=== PATIENT | male | born 1990 | race Hispanic/Latino ===

== ENCOUNTER 2016-06-30 19:37 | Inpatient (IN) | payer MEDICARE ==
[2016-06-30 20:44] LABS: Hematocrit 34.4 % (35.5-45.6); Hemoglobin 11.1 gm/dl (11.8-15.2); Mean Corpuscular HGB Conc 32 % (32-34); Mean Corpuscular Hemoglobin 28 pg (28-32); Mean Corpuscular Volume 87 fl (84-94); Platelet Count 257 K/mm3 (140-440); Red Blood Count 3.96 M/mm3 (3.65-5.03); Red Cell Distribution Width 17.6 % (13.2-15.2); White Blood Count 5.5 K/mm3 (4.5-11.0)
[2016-06-30 20:54] LABS: INR 2.21 (0.87-1.13)
[2016-06-30 20:55] LABS: Partial Thromboplastin Time 47.5 Sec. (24.2-36.6)
[2016-06-30 20:59] LABS: Albumin 2.7 g/dL (3.9-5); Albumin/Globulin Ratio 0.7 %; Alkaline Phosphatase 84 units/L (35-129); Anion Gap 27 mmol/L; Bilirubin,Total 0.3 mg/dL (0.1-1.2); Blood Urea Nitrogen 53 mg/dL (9-20); Calcium 8.9 mg/dL (8.4-10.2); Carbon Dioxide 30 mmol/L (22-30); Chloride 83.1 mmol/L (98-107); Glucose 68 mg/dL (75-100); Lipase 5 units/L (13-60); Potassium 5.4 mmol/L (3.6-5.0); Sodium 135 mmol/L (137-145); Total Protein 6.5 g/dL (6.3-8.2)
[2016-06-30 21:01] LABS: Alanine Aminotransferase < 5 units/L (7-56)
[2016-06-30 21:32] LABS: Basophils % (Manual) 0 % (0.0-1.8); Blastocytes % (Manual) 0 %; Eosinophils % (Manual) 0 % (0.0-4.3)
[2016-06-30 21:33] LABS: Anisocytosis 1+; Diff Status Complete; Hypochromasia 1+; Platelet Estimate Consistent w Auto
[2016-07-01] MEDS ORDERED: NACL 0.9% 1000 ML 1,000 ML ONE (00:25)
[2016-07-01] MEDS ORDERED: SUBLIMAZE ONE (00:25)
[2016-07-01] MEDS ORDERED: ALBURX 25% (ALBUMIN) IV ONE (00:35)
[2016-07-01] MEDS ORDERED: SUBLIMAZE IV ONE ×2 (00:42→05:37)
[2016-07-01] MEDS: NACL 0.9% IV SCH ×2 (00:47→01:41)
--- NOTE | 2016-07-01 02:57 | Emergency Department Report ---
ED Abdominal Pain HPI - General Chief Complaint: Abdominal Pain Stated Complaint: ABD PAIN/LOW BP Time Seen by Provider: 07/01/16 00:02 Source: patient, family Mode of arrival: Wheelchair Limitations: No Limitations - History of Present Illness Initial Comments: Patient is a 18-year-old male with a history of hypertension, chronic kidney disease on dialysis Tuesday presenting to the ER with 1 week history of abdominal pain, nausea, and bilious vomiting. Associated decreased appetite and anorexia. He did have dialysis yesterday via his left arm fistula and he also has had ascites which he reports 12 pounds of fluid drained off. He reports he has no etiology for his ascites, has seen the bilingual loan processor and the inspector crystal. Does report he was not given albumin yesterday. Otherwise no fevers, chills, chest pain, shortness of breath, travel, trauma, or sick contacts. MD Complaint: abdominal pain, other (N/V) Location: diffuse Severity scale (0 -10): 0 - Related Data Home Medications Medication Instructions Recorded Confirmed Last Taken Carvedilol [Coreg] 12.5 mg PO BID 07/01/16 07/01/16 Unknown Clonidine HCl [Catapres] 0.3 mg PO TID 07/01/16 07/01/16 Unknown Cyclobenzaprine [Flexeril] 5 mg PO BID 07/01/16 07/01/16 Unknown Ergocalciferol [Vitamin D2] 1 cap PO QWEEK 07/01/16 07/01/16 Unknown Esomeprazole Magnesium 40 mg PO QDAY 07/01/16 07/01/16 Unknown Ferric Citrate (Nf) [Auryxia (Nf)] 210 mg PO TID 07/01/16 07/01/16 Unknown Furosemide [Lasix TAB] 80 mg PO QDAY 07/01/16 07/01/16 Unknown Gabapentin [Neurontin] 100 mg PO QHS 07/01/16 07/01/16 Unknown Lisinopril [Zestril TAB] 40 mg PO QDAY 07/01/16 07/01/16 Unknown NIFEdipine XL [Procardia Xl] 90 mg PO QDAY 07/01/16 07/01/16 Unknown Ondansetron [Zofran TAB] 4 mg PO TID PRN 07/01/16 07/01/16 Unknown Sertraline HCl [Zoloft] 50 mg PO QHS 07/01/16 07/01/16 Unknown Vitamin B Comp and C/FA/Zn Cit 0.8 mg PO QDAY 07/01/16 07/01/16 Unknown [Dialyvite 800-Zinc 15 Tab] Warfarin [Coumadin] 2 mg PO QDAY 07/01/16 07/01/16 Unknown traZODone [Desyrel] 50 mg PO QHS PRN 07/01/16 07/01/16 Unknown Allergies Allergy/AdvReac Type Severity Reaction Status Date / Time heparin Allergy lowers Verified 04/03/14 09:39 platelets ED Review of Systems ROS: Stated complaint: ABD PAIN/LOW BP Other details as noted in HPI Comment: All other systems reviewed and negative ED Past Medical Hx - Past Medical History Previous Medical History?: Yes Hx Hypertension: Yes (2012) Hx GERD: Yes Hx Renal Disease: Yes (h/o PERITONEAL DIALYSIS, now HD) Additional medical history: Hidradenitis - Surgical History Past Surgical History?: No - Social History Smoking Status: Current Every Day Smoker Substance Use Type: None - Medications Home Medications: Home Medications Medication Instructions Recorded Confirmed Last Taken Type Carvedilol [Coreg] 12.5 mg PO BID 07/01/16 07/01/16 Unknown History Clonidine HCl [Catapres] 0.3 mg PO TID 07/01/16 07/01/16 Unknown History Cyclobenzaprine [Flexeril] 5 mg PO BID 07/01/16 07/01/16 Unknown History Ergocalciferol [Vitamin D2] 1 cap PO QWEEK 07/01/16 07/01/16 Unknown History Esomeprazole Magnesium 40 mg PO QDAY 07/01/16 07/01/16 Unknown History Ferric Citrate (Nf) [Auryxia (Nf)] 210 mg PO TID 07/01/16 07/01/16 Unknown History Furosemide [Lasix TAB] 80 mg PO QDAY 07/01/16 07/01/16 Unknown History Gabapentin [Neurontin] 100 mg PO QHS 07/01/16 07/01/16 Unknown History Lisinopril [Zestril TAB] 40 mg PO QDAY 07/01/16 07/01/16 Unknown History NIFEdipine XL [Procardia Xl] 90 mg PO QDAY 07/01/16 07/01/16 Unknown History Ondansetron [Zofran TAB] 4 mg PO TID PRN 07/01/16 07/01/16 Unknown History Sertraline HCl [Zoloft] 50 mg PO QHS 07/01/16 07/01/16 Unknown History Vitamin B Comp and C/FA/Zn Cit 0.8 mg PO QDAY 07/01/16 07/01/16 Unknown History [Dialyvite 800-Zinc 15 Tab] Warfarin [Coumadin] 2 mg PO QDAY 07/01/16 07/01/16 Unknown History traZODone [Desyrel] 50 mg PO QHS PRN 07/01/16 07/01/16 Unknown History ED Physical Exam - General Limitations: No Limitations General appearance: alert, in no apparent distress - Head Head exam: Present: atraumatic, normocephalic - Eye Eye exam: Present: normal appearance, PERRL, EOMI, nystagmus. Absent: scleral icterus, conjunctival injection - ENT ENT exam: Present: normal exam, mucous membranes dry - Neck Neck exam: Present: normal inspection - Respiratory Respiratory exam: Present: normal lung sounds bilaterally. Absent: respiratory distress - Cardiovascular Cardiovascular Exam: Present: regular rate, normal rhythm, other (LUE fistual with thrill). Absent: systolic murmur, diastolic murmur, rubs, gallop - GI/Abdominal GI/Abdominal exam: Present: soft, tenderness (diffuse), normal bowel sounds. Absent: distended, guarding, rebound, rigid, hyperactive bowel sounds, hernia - Extremities Exam Extremities exam: Present: other (LUE fistula) ED Course Vital Signs 06/30/16 06/30/16 07/01/16 20:04 23:59 00:01 Temperature 98.1 F Pulse Rate 106 H 90 91 H Respiratory 16 13 16 Rate Blood Pressure 97/61 89/47 O2 Sat by Pulse 98 96 Oximetry 07/01/16 07/01/16 07/01/16 00:11 00:30 01:00 Temperature Pulse Rate 86 80 82 Respiratory 14 12 13 Rate Blood Pressure 89/47 91/45 94/47 O2 Sat by Pulse 93 95 90 Oximetry 07/01/16 07/01/16 07/01/16 01:30 02:00 02:30 Temperature Pulse Rate 84 85 85 Respiratory 8 L 13 11 L Rate Blood Pressure 104/51 93/50 80/49 O2 Sat by Pulse 97 94 97 Oximetry 07/01/16 07/01/16 07/01/16 03:00 03:30 04:00 Temperature Pulse Rate 81 81 77 Respiratory 9 L 12 11 L Rate Blood Pressure 98/55 97/51 97/51 O2 Sat by Pulse 99 93 Oximetry 07/01/16 07/01/16 07/01/16 04:30 05:19 05:30 Temperature Pulse Rate 74 72 Respiratory 12 14 Rate Blood Pressure 98/53 98/53 106/59 O2 Sat by Pulse 93 99 Oximetry 07/01/16 07/01/16 07/01/16 06:00 06:30 07:00 Temperature Pulse Rate 78 79 84 Respiratory 15 11 L 13 Rate Blood Pressure 109/63 112/54 111/62 O2 Sat by Pulse 93 95 Oximetry ED Medical Decision Making - Lab Data Result diagrams: 07/02/16 05:01 07/02/16 05:01 - Radiology Data Radiology results: pending, image reviewed Ct a/p: SBO, with transition point in the jejunum. Will ordered NGT, notified hospitalist Case also discussed with surgeon, Dr. Romano, will see patient on consult Case desi discussed with internal grinder tender Dr Cortez, will see patient on consult and set up dialysis Critical care attestation.: If time is entered above; I have spent that time in minutes in the direct care of this critically ill patient, excluding procedure time. ED Disposition Clinical Impression: Abdominal pain, CKD (chronic kidney disease), Nausea & vomiting, SBO (small bowel obstruction) Disposition: OP ADMITTED IP TO THIS HOSP Is pt being admited?: Yes Condition: Fair
[2016-07-01] MEDS ORDERED: NACL ONE (03:14)
--- NOTE | 2016-07-01 05:16 | Cat Scan Report ---
FINAL REPORT PROCEDURE: CT ABDOMEN PELVIS W CON TECHNIQUE: Computerized axial tomography of the abdomen and pelvis was performed after the IV injection of iodinated nonionic contrast. HISTORY: abd pain COMPARISON: 11/03/2012 FINDINGS: Visualized lower thorax: Mild infiltrate in both lower lungs.. Liver: Normal size and attenuation. Spleen: Normal size and attenuation. Gallbladder and biliary system: Normal. Pancreas: Normal. Adrenals: Normal. Kidneys: The kidneys are atrophic.. GI tract: The stomach is distended. There are multiple loops of dilated fluid and gas-filled small bowel in the mid and upper abdomen. The distal small bowel has a normal caliber. This is consistent with small bowel obstruction with a transition zone in the distal jejunum or proximal ileum. The bowel loops are dilated up to 4.5 centimeters. The colon is normal.. Lymph nodes and mesentery: Normal. Vasculature: Moderate atherosclerosis of the aorta and branching vessels.. Bladder: Normal. Reproductive organs: Normal. Peritoneum: There is significant ascites within the abdomen and pelvis.. Musculoskeletal structures: No significant abnormality. Other: None. IMPRESSION: Small-bowel obstruction with a transition zone in the distal jejunum or proximal ileum. Significant ascites within the abdomen and pelvis. Mild infiltrate in both lower lungs. The above critical findings are discussed with the patient's ER physician Dr. Barrios, at the time of dictation 04:11 central standard time on 07/01/2016
[2016-07-01] MEDS ORDERED: ZOFRAN IV ONE (05:36)
[2016-07-01] MEDS ORDERED: TYLENOL PO PRN (05:44)
--- NOTE | 2016-07-01 05:54 | History and Physical Report ---
History of Present Illness Date of examination: 07/08/16 History of present illness: 26-year-old man with a history of end-stage renal disease on dialysis Tuesday, hypertension comes emergency room with complaints of abdominal pain 1 week. Pain is all over, described as a sharp, constant, radiating around to his back, intensity 7/10, better with pain medications. Stated he was seen at [facility], he had 12 pounds of fluid drained from his belly. His MR blood vessels of nausea vomiting, unable to tolerate oral intake Patient denies chest pain, palpitation, shortness of breath, cough, hematochezia, dysuria, frequency, focal weakness, dysarthria, fever chills, polydipsia polyuria, hot or cold intolerance, easy bruisability, or rash or bleeding from mucosal membrane, rhinorrhea, epistaxis, earache, tinnitus, blurry vision, eye discharge, anxiety, depression. Other review of systems negative PAST SURGICAL HISTORY: AV fistula SOCIAL HISTORY: Smokes 3 cigarettes a day, no alcohol or drugs FAMILY HISTORY: Hypertension Medications and Allergies Allergies Allergy/AdvReac Type Severity Reaction Status Date / Time heparin Allergy lowers Verified 04/03/14 09:39 platelets Home Medications Medication Instructions Recorded Confirmed Last Taken Type Calcium Acetate 3 tab PO TID 01/29/13 02/19/16 02/25/16 20:00 History Lisinopril 40 mg PO QDAY 01/29/13 02/26/16 02/25/16 07:00 History Clonidine HCl [Catapres] 0.3 mg PO TID PRN 03/05/13 02/19/16 02/25/16 20:00 History Sertraline [Zoloft] 100 mg PO QHS 03/05/13 02/19/16 02/25/16 20:00 History Vit B Cplx #11/FA/C/Biot/Zn Ox 1 each PO DAILY 03/05/13 02/19/16 02/25/16 20:00 History [Dialyvite with Zinc Tablet] Esomeprazole Magnesium [NexIUM] 40 mg PO DAILY 12/14/13 02/26/16 02/19/16 History Minoxidil 2.5 mg PO BID 12/14/13 02/19/16 02/25/16 20:00 History NIFEdipine [Nifedipine ER] 90 mg PO DAILY 12/14/13 02/19/16 02/25/16 20:00 History oxyCODONE /ACETAMINOPHEN [Percocet 1 - 2 tab PO Q4HR #40 tab 02/26/16 Unknown Rx 5/325] Active Meds: Active Medications Acetaminophen (Tylenol) 650 mg PO Q4H PRN PRN Reason: Pain MILD(1-3)/Fever >100.5/JENKINS Levofloxacin/Dextrose (Levaquin 250mg/50ml) 250 mg in 50 mls @ 50 mls/hr IV Q24H CHONG Ondansetron HCl (Zofran) 4 mg IV Q4H PRN PRN Reason: N/V unrelieved by Reglan Exam - Physical Exam Narrative exam: Gen. appearance: Patient lying in bed, no apparent distress HEENT: Normocephalic, atraumatic, pupils equally round and reactive to light, extraocular movement intact, and no sclericterus,. No JVD or thyromegaly or nodule,neck supple, no carotid bruit ,mucous membranes moist, no exudate or erythema Heart: S1, S2, regular rate and rhythm Lungs: Clear to auscultation bilaterally, breathing comfortable Abdomen: Positive bowel sounds, tender in lower quadrants, nondistended, no organomegaly Extremity: No edema, cyanosis, clubbing Skin: No rash, nodules, warm, dry Neuro: Oriented 3, cranial nerves II-12 intact, speech is fluent, motor and sensory intact - Constitutional Vitals: Temp Pulse Resp BP Pulse Ox 98.1 F 74 12 98/53 93 06/30/16 20:04 07/01/16 04:30 07/01/16 04:30 07/01/16 04:30 07/01/16 04:00 Results - Labs CBC & Chem 7: 06/30/16 20:25 06/30/16 20:25 Labs: Abnormal lab results 06/30/16 06/30/16 06/30/16 Range/Units 20:25 20:25 20:25 Hgb 11.1 L (11.8-15.2) gm/dl Hct 34.4 L (35.5-45.6) % RDW 17.6 H (13.2-15.2) % Monocytes % (Manual) 18.0 H (0.0-7.3) % Monocytes # (Manual) 1.0 H (0.0-0.8) K/mm3 PT 24.6 H (12.2-14.9) Sec. INR 2.21 H (0.87-1.13) APTT 47.5 H (24.2-36.6) Sec. Sodium 135 L (137-145) mmol/L BUN 53 H (9-20) mg/dL Creatinine 11.5 H (0.8-1.5) mg/dL Glucose 68 L (75-100) mg/dL ALT < 5 L (7-56) units/L Albumin 2.7 L (3.9-5) g/dL Lipase 5 L (13-60) units/L - Imaging and Cardiology CT scan - abdomen: report reviewed CT scan - pelvis: report reviewed Assessment and Plan Small bowel obstruction End Stage renal disease on dialysis Pneumonia, community acquired Hypertension Admits medicine Placed on bowel rest, place NG tube, consult surgery Consult renal for dialysis, patient status post contrast Start IV Levaquin Patient status post Albumin DVT prophylaxis with coumadin
--- NOTE | 2016-07-01 06:53 | Admit Criteria Form ---
Admission Criteria Documentation: ABDOMINAL PAIN Clinical Indications for Admission to Inpatient Care (Place 'X' for any and all applicable criteria): Admission is indicated for ANY ONE of the following(1)(2)(3)(4)(5): [X ]I. Inpatient admission required rather than observation care (Also use Abdominal Pain: Observation Care, as appropriate) because of ANY ONE of the following: [ ]a) Severe pain requiring acute inpatient management [X ]b) Identification of etiology/finding that requires inpatient care (eg, aortic dissection, free air) [ ]c) Absent bowel sounds with complete ileus(6) [ ]d) Suspected toxic megacolon [ ]e) Severe electrolyte abnormalities requiring inpatient care [ ]f) High fever or infection requiring inpatient admission as indicated by ANY ONE of following(7)(8): [ ] i) Appropriate outpatient or observational care antimicrobial treatment unavailable, not effective, or not feasible [ ] ii) Documented bacteremia [ ] iii) Temperature > 104.9 degrees F (oral) [ ] iv) T >103.1 F (oral) or < 96.8 F(rectal) that does not respond to all emergency treatment measures [ ]g) Signs of intestinal obstruction [B] [ ]h) Hemodynamic instability [ ]i) IV fluid to replace significant ongoing losses (greater than 3 L/m2 per day) (12)(13) [ ]j) Percutaneous or open drainage (eg, abscess, biliary tract ) procedures [ ]k) Parenteral nutrition regimen that must be implemented on inpatient basis [ ]l) Other condition,treatment or monitoring requiring inpatient admission. [ ]II. Peritoneal signs present [ ]III. Surgery needed that cannot be performed on an ambulatory basis. [ ]IV. Evaluation requires patient to not eat or drink for extended period ( eg, more than 24 hours). [ ]V. Contraindications and/or Inappropriate clinical situations for Observational Care in patients with abdominal pain, when ANY ONE of the following is required: [ ]a) Thorough evaluation is required to prevent catastrophic events due to delays in diagnosing (e.g.Mesenteric ischemia) 1,3 [ ]b) Patient with severe pathology or with chronic symptoms unlikely to improve in the ED stay (3) [ ]. General contraindications and/or Inappropriate clinical situations for Observational Care in patients with abdominal pain, when ANY ONE of the following is required: [ ]a) Prediction of prolongation of LOS based on ANY ONE of the following may be considered as a contraindication for observational care 2, 3, 4, 5, 6, 7, 8, 9, 10, 11 [ ]i) Age > 65 yrs. [ ]ii) Patient arriving by ambulance [ ]iii) Patient with high acuity [ ]iv) Patient requiring vital sign monitoring [ ]v) Patient on IV medication [ ]b) Systolic blood pressures 180mmHg 3,12 [ ]c) Patient with altered mental status including delirium and other alteration of consciousness, (3) [ ]d) Patient whose discharge disposition will be to a long-term home or rehabilitation home should not be managed in Emergency Department Observation Unit. CMS rule requires 3 days hospital stay before such placement.3,13 [ ]e) Patient with failure to thrive due to broad array of etiologies 3,16,17 [ ]f) Inability to ambulate 3,14 Extended stay beyond goal length of stay may be needed for(2)(3): [ ]a) Persistent abdominal pain with suspected intra-abdominal process [ ]b) Diagnosed condition requiring continued stay (e.g., pancreatitis, complicated diverticulitis) [ ]c) Surgery (e.g., colectomy) The original [email or web address] [facility] [email or web address] content created by [employer] has been revised. The portions of the content which have been revised are identified through the use of italic text or in bold, and [facility] has neither reviewed nor approved the modified material.All other unmodified content is copyright [email or web address] [email or web address]. Please see references footnoted in the original [email or web address] [email or web address] edition 2016
[2016-07-01] MEDS: LEVAQUIN 250MG/50ML 250 MG/50 ML BAG IV SCH (06:56)
[2016-07-01] MEDS ORDERED: ZOFRAN ONE (10:19)
[2016-07-01] MEDS: ZOFRAN IV PRN ×2 (10:21→19:19)
--- NOTE | 2016-07-01 11:16 | Consultation ---
History of Present Illness - Reason for Consult Consult date: 07/01/16 end stage renal disease Requesting physician: AMADO BOYKIN - History of Present Illness 26-year-old man with a history of end-stage renal disease on dialysis Tuesday, hypertension comes emergency room with complaints of abdominal pain 1 week. Pain is all over, described as a sharp, constant, radiating around to his back, intensity 7/10, better with pain medications. Stated he was seen at [facility], he had 12 pounds of fluid drained from his belly. His MR blood vessels of nausea vomiting, unable to tolerate oral intake Patient denies chest pain, palpitation, shortness of breath, cough, hematochezia, dysuria, frequency, focal weakness, dysarthria, fever chills, polydipsia polyuria, hot or cold intolerance, easy bruisability, or rash or bleeding from mucosal membrane, rhinorrhea, epistaxis, earache, tinnitus, blurry vision, eye discharge, anxiety, depression. Other review of systems negative Patient undergoes dialysis at [facility] on Mondays, Wednesdays and Fridays schedule. He however missed his treatment yesterday because of his above-mentioned symptoms. He has been having vomiting as well. Not able to keep any food down. CT scan of the abdomen noted for small bowel obstruction. He is not admitted for further management Past History Past Medical History: dialysis, hypertension, other (history of HIT) Past Surgical History: Other (history of creation of AV fistula) Social history: no significant social history Family history: no significant family history Medications and Allergies Allergies Allergy/AdvReac Type Severity Reaction Status Date / Time heparin Allergy lowers Verified 04/03/14 09:39 platelets Home Medications Medication Instructions Recorded Confirmed Last Taken Type Calcium Acetate 3 tab PO TID 01/29/13 02/19/16 02/25/16 20:00 History Lisinopril 40 mg PO QDAY 01/29/13 02/26/16 02/25/16 07:00 History Clonidine HCl [Catapres] 0.3 mg PO TID PRN 03/05/13 02/19/16 02/25/16 20:00 History Sertraline [Zoloft] 100 mg PO QHS 03/05/13 02/19/16 02/25/16 20:00 History Vit B Cplx #11/FA/C/Biot/Zn Ox 1 each PO DAILY 03/05/13 02/19/16 02/25/16 20:00 History [Dialyvite with Zinc Tablet] Esomeprazole Magnesium [NexIUM] 40 mg PO DAILY 12/14/13 02/26/16 02/19/16 History Minoxidil 2.5 mg PO BID 12/14/13 02/19/16 02/25/16 20:00 History NIFEdipine [Nifedipine ER] 90 mg PO DAILY 12/14/13 02/19/16 02/25/16 20:00 History oxyCODONE /ACETAMINOPHEN [Percocet 1 - 2 tab PO Q4HR #40 tab 02/26/16 Unknown Rx 5/325] Active Meds: Active Medications Acetaminophen (Tylenol) 650 mg PO Q4H PRN PRN Reason: Pain MILD(1-3)/Fever >100.5/JENKINS Levofloxacin/Dextrose (Levaquin 250mg/50ml) 250 mg in 50 mls @ 50 mls/hr IV Q24H [facility] Last Admin: 07/01/16 06:56 Dose: 50 mls/hr Ondansetron HCl (Zofran) 4 mg IV Q4H PRN PRN Reason: N/V unrelieved by Forrest Last Admin: 07/01/16 10:21 Dose: 4 mg Review of Systems All systems: negative (negative except as noted above) Exam - Vital Signs Vital signs: Vital Signs Temp Pulse Resp BP Pulse Ox 98.1 F 106 H 16 97/61 98 06/30/16 20:04 06/30/16 20:04 06/30/16 20:04 06/30/16 20:04 06/30/16 20:04 - General Appearance General appearance: chronically ill, frail, other (pleasant male) EENT: PERRL, mucous membranes moist Neck: Present: neck supple, trachea midline Respiratory: Clear to Ascultation Heart: regular, normal heart rate Gastrointestinal: Present: tenderness (mild diffuse tenderness. No rebound or guarding) Integumentary: no rash, other (no edema. AV fistula in his left upper arm. Good bruit and thrill) Results - Lab Results 06/30/16 20:25 06/30/16 20:25 Most recent lab results Calcium 8.9 mg/dL (8.4-10.2) 06/30/16 20:25 Assessment and Plan Impression * End-stage renal disease on maintenance hemodialysis * Small bowel obstruction * History of hypertension * History of HIT * Ascites Recommendations * Shall arrange for hemodialysis today and keep him on a Tuesday, and Tuesday schedule for now. His outpatient days are however Mondays, Wednesdays and Fridays * Agree with surgical evaluation for his small bowel obstruction * Patient had recent paracentesis done at [facility]. Need to follow up on those results. Consider GI evaluation as well * Patient's blood pressure has recently been on the lower side. May be due to volume contraction. However due need to consider pericardial effusion as well. Shall check an echocardiogram * Shall dialyze him without any heparin because of his history of HIT * Epogen per protocol * Thank you very much for the consultation. Shall follow along with you
[2016-07-01] MEDS ORDERED: NACL 0.9% 100 ML IV PRN (11:19)
--- NOTE | 2016-07-01 11:20 | Admit Criteria Form ---
Admission Criteria Documentation: ABDOMINAL PAIN Clinical Indications for Admission to Inpatient Care (Place 'X' for any and all applicable criteria): Admission is indicated for ANY ONE of the following(1)(2)(3)(4)(5): [X ]I. Inpatient admission required rather than observation care (Also use Abdominal Pain: Observation Care, as appropriate) because of ANY ONE of the following: [ ]a) Severe pain requiring acute inpatient management [ ]b) Identification of etiology/finding that requires inpatient care (eg, aortic dissection, free air) [ ]c) Absent bowel sounds with complete ileus(6) [ ]d) Suspected toxic megacolon [ ]e) Severe electrolyte abnormalities requiring inpatient care [ ]f) High fever or infection requiring inpatient admission as indicated by ANY ONE of following(7)(8): [ ] i) Appropriate outpatient or observational care antimicrobial treatment unavailable, not effective, or not feasible [ ] ii) Documented bacteremia [ ] iii) Temperature > 104.9 degrees F (oral) [ ] iv) T >103.1 F (oral) or < 96.8 F(rectal) that does not respond to all emergency treatment measures [X ]g) Signs of intestinal obstruction [B] [ ]h) Hemodynamic instability [ ]i) IV fluid to replace significant ongoing losses (greater than 3 L/m2 per day) (12)(13) [ ]j) Percutaneous or open drainage (eg, abscess, biliary tract ) procedures [ ]k) Parenteral nutrition regimen that must be implemented on inpatient basis [X ]l) Other condition,treatment or monitoring requiring inpatient admission. [ ]II. Peritoneal signs present [ ]III. Surgery needed that cannot be performed on an ambulatory basis. [ ]IV. Evaluation requires patient to not eat or drink for extended period ( eg, more than 24 hours). [ ]V. Contraindications and/or Inappropriate clinical situations for Observational Care in patients with abdominal pain, when ANY ONE of the following is required: [ ]a) Thorough evaluation is required to prevent catastrophic events due to delays in diagnosing (e.g.Mesenteric ischemia) 1,3 [ ]b) Patient with severe pathology or with chronic symptoms unlikely to improve in the ED stay (3) [ ]. General contraindications and/or Inappropriate clinical situations for Observational Care in patients with abdominal pain, when ANY ONE of the following is required: [ ]a) Prediction of prolongation of LOS based on ANY ONE of the following may be considered as a contraindication for observational care 2, 3, 4, 5, 6, 7, 8, 9, 10, 11 [ ]i) Age > 65 yrs. [ ]ii) Patient arriving by ambulance [ ]iii) Patient with high acuity [ ]iv) Patient requiring vital sign monitoring [ ]v) Patient on IV medication [ ]b) Systolic blood pressures 180mmHg 3,12 [ ]c) Patient with altered mental status including delirium and other alteration of consciousness, (3) [ ]d) Patient whose discharge disposition will be to a correction home or rehabilitation home should not be managed in Emergency Department Observation Unit. CMS rule requires 3 days hospital stay before such placement.3,13 [ ]e) Patient with failure to thrive due to broad array of etiologies 3,16,17 [ ]f) Inability to ambulate 3,14 Extended stay beyond goal length of stay may be needed for(2)(3): [ ]a) Persistent abdominal pain with suspected intra-abdominal process [ ]b) Diagnosed condition requiring continued stay (e.g., pancreatitis, complicated diverticulitis) [ ]c) Surgery (e.g., colectomy) The original [facility] content created by [employer] has been revised. The portions of the content which have been revised are identified through the use of italic text or in bold, and [facility] has neither reviewed nor approved the modified material.All other unmodified content is copyright [facility]. Please see references footnoted in the original [facility] edition 2016 Admission Criteria Met: Yes
[2016-07-01 14:02] LABS: BUN/Creatinine Ratio 4.8; Calcium 8.4 mg/dL (8.4-10.2); Chloride 80.9 mmol/L (98-107)
[2016-07-01 14:04] LABS: Potassium 6.1 mmol/L (3.6-5.0)
--- NOTE | 2016-07-01 15:54 | Event Note ---
Date: 07/01/16 Pt seen in dialysis, sleeping and very difficult to wake up, poor historian, WBC normal, no hx of surgery except peritoneal dialysis catheter, removed late last year. Hx of ascites , paracentesis at [facility], cytologies negative, cell count? , abd soft, no rebound or guarding, CT reviewed with Radiology, Dr. 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
[2016-07-01] MEDS ORDERED: NACL 0.9 (PRIMING MACHINE ONLY DIALYSIS) MC ONE (17:24)
[2016-07-01] MEDS: PROCRIT IV PRN (18:34)
[2016-07-02] MEDS: ZOFRAN IV PRN ×2 (01:59→15:41)
[2016-07-02 05:33] LABS: Hematocrit 35.8 % (35.5-45.6); Hemoglobin 11.4 gm/dl (11.8-15.2); Mean Corpuscular HGB Conc 32 % (32-34); Mean Corpuscular Hemoglobin 28 pg (28-32); Mean Corpuscular Volume 87 fl (84-94); Platelet Count 182 K/mm3 (140-440); Red Blood Count 4.11 M/mm3 (3.65-5.03); Red Cell Distribution Width 17.4 % (13.2-15.2); White Blood Count 5.3 K/mm3 (4.5-11.0)
[2016-07-02 05:48] LABS: BUN/Creatinine Ratio 3.95; Calcium 8.6 mg/dL (8.4-10.2); Chloride 88.5 mmol/L (98-107); Potassium 5.2 mmol/L (3.6-5.0)
[2016-07-02 07:13] LABS: Basophils % (Manual) 0 % (0.0-1.8); Blastocytes % (Manual) 0 %; Eosinophils % (Manual) 0 % (0.0-4.3)
[2016-07-02 07:14] LABS: Anisocytosis 1+; Hypochromasia 1+
[2016-07-02 07:15] LABS: Diff Status Complete; Large Platelets Few
[2016-07-02] MEDS: LEVAQUIN 250MG/50ML 250 MG/50 ML BAG IV SCH (07:31)
--- NOTE | 2016-07-02 08:03 | Consultation ---
History of Present Illness Consult date: 07/02/16 Reason for consult: other (small bowel obstruction) Past History Past Medical History: dialysis, hypertension, other (history of HIT) Past Surgical History: Other (history of creation of AV fistula) Social history: no significant social history Family history: no significant family history Medications and Allergies Allergies Allergy/AdvReac Type Severity Reaction Status Date / Time heparin Allergy lowers Verified 04/03/14 09:39 platelets Home Medications Medication Instructions Recorded Confirmed Last Taken Type Carvedilol [Coreg] 12.5 mg PO BID 07/01/16 07/01/16 Unknown History Clonidine HCl [Catapres] 0.3 mg PO TID 07/01/16 07/01/16 Unknown History Cyclobenzaprine [Flexeril] 5 mg PO BID 07/01/16 07/01/16 Unknown History Ergocalciferol [Vitamin D2] 1 cap PO QWEEK 07/01/16 07/01/16 Unknown History Esomeprazole Magnesium 40 mg PO QDAY 07/01/16 07/01/16 Unknown History Ferric Citrate (Nf) [Auryxia (Nf)] 210 mg PO TID 07/01/16 07/01/16 Unknown History Furosemide [Lasix TAB] 80 mg PO QDAY 07/01/16 07/01/16 Unknown History Gabapentin [Neurontin] 100 mg PO QHS 07/01/16 07/01/16 Unknown History Lisinopril [Zestril TAB] 40 mg PO QDAY 07/01/16 07/01/16 Unknown History NIFEdipine XL [Procardia Xl] 90 mg PO QDAY 07/01/16 07/01/16 Unknown History Ondansetron [Zofran TAB] 4 mg PO TID PRN 07/01/16 07/01/16 Unknown History Sertraline HCl [Zoloft] 50 mg PO QHS 07/01/16 07/01/16 Unknown History Vitamin B Comp and C/FA/Zn Cit 0.8 mg PO QDAY 07/01/16 07/01/16 Unknown History [Dialyvite 800-Zinc 15 Tab] Warfarin [Coumadin] 2 mg PO QDAY 07/01/16 07/01/16 Unknown History traZODone [Desyrel] 50 mg PO QHS PRN 07/01/16 07/01/16 Unknown History Active Meds: Active Medications Acetaminophen (Tylenol) 650 mg PO Q4H PRN PRN Reason: Pain MILD(1-3)/Fever >100.5/JENKINS Epoetin Davis (Procrit) 10,000 unit IV APRIL PRN PRN Reason: hemodialysis Last Admin: 07/01/16 18:34 Dose: 10,000 unit Levofloxacin/Dextrose (Levaquin 250mg/50ml) 250 mg in 50 mls @ 50 mls/hr IV Q24H CHONG Last Admin: 07/02/16 07:31 Dose: 50 mls/hr Sodium Chloride (Nacl 0.9%) 100 mls @ 999 mls/hr IV APRIL PRN PRN Reason: Hypotension Ondansetron HCl (Zofran) 4 mg IV Q4H PRN PRN Reason: N/V unrelieved by Forrest Last Admin: 07/02/16 01:59 Dose: 4 mg Review of Systems - Constitutional anorexia, other (nausea and vomiting) Exam Vital Signs Temp Pulse Resp BP Pulse Ox 98.1 F 106 H 16 97/61 98 06/30/16 20:04 06/30/16 20:04 06/30/16 20:04 06/30/16 20:04 06/30/16 20:04 - General physical appearance Positive: chronically ill - Eyes Positive: PERRL, normal occular movement - ENT Positive: poor jail, other (dysconjugate gaze) - Neck Positive: no masses, no bruits, trachea midline, no venous distension - Respiratory Positive: normal expansion, normal respiratory effort, clear to auscultation - Cardiovascular Rhythm: regular - Extremities Extremities: abnormal (access left upper arm) - Breasts Breasts: normal - Abdomen Abdomen: Present: soft, bowel sounds hypoactive (no rebound or guarding, NG patent) Hernia: none - Neurologic Neurologic: alert and oriented to time, place and person, motor strength and sensation are grossly intact - Psychiatric Psychiatric: appropriate mood/affect, intact judgment & insight Results - Labs 07/02/16 05:01 07/02/16 05:01 Abnormal lab results 07/01/16 07/02/16 07/02/16 Range/Units 13:15 05:01 05:01 Hgb 11.4 L (11.8-15.2) gm/dl RDW 17.4 H (13.2-15.2) % Monocytes % (Manual) 11.0 H (0.0-7.3) % Lymphocytes # (Manual) 0.7 L (1.2-5.4) K/mm3 Sodium 134 L (137-145) mmol/L Potassium 6.1 H* 5.2 H (3.6-5.0) mmol/L Chloride 80.9 L 88.5 L (98-107) mmol/L Carbon Dioxide 35 H (22-30) mmol/L BUN 61 H 32 H (9-20) mg/dL Creatinine 12.7 H 8.1 H (0.8-1.5) mg/dL Glucose 51 L 63 L (75-100) mg/dL Diabetes panel 07/01/16 07/02/16 Range/Units 13:15 05:01 Sodium 134 L 139 (137-145) mmol/L Potassium 6.1 H* 5.2 H (3.6-5.0) mmol/L Chloride 80.9 L 88.5 L (98-107) mmol/L Carbon Dioxide 30 35 H (22-30) mmol/L BUN 61 H 32 H (9-20) mg/dL Creatinine 12.7 H 8.1 H (0.8-1.5) mg/dL Glucose 51 L 63 L (75-100) mg/dL Calcium 8.4 8.6 (8.4-10.2) mg/dL Calcium panel 07/01/16 07/02/16 Range/Units 13:15 05:01 Calcium 8.4 8.6 (8.4-10.2) mg/dL Pituitary panel 07/01/16 07/02/16 Range/Units 13:15 05:01 Sodium 134 L 139 (137-145) mmol/L Potassium 6.1 H* 5.2 H (3.6-5.0) mmol/L Chloride 80.9 L 88.5 L (98-107) mmol/L Carbon Dioxide 30 35 H (22-30) mmol/L BUN 61 H 32 H (9-20) mg/dL Creatinine 12.7 H 8.1 H (0.8-1.5) mg/dL Glucose 51 L 63 L (75-100) mg/dL Calcium 8.4 8.6 (8.4-10.2) mg/dL Adrenal panel 07/01/16 07/02/16 Range/Units 13:15 05:01 Sodium 134 L 139 (137-145) mmol/L Potassium 6.1 H* 5.2 H (3.6-5.0) mmol/L Chloride 80.9 L 88.5 L (98-107) mmol/L Carbon Dioxide 30 35 H (22-30) mmol/L BUN 61 H 32 H (9-20) mg/dL Creatinine 12.7 H 8.1 H (0.8-1.5) mg/dL Glucose 51 L 63 L (75-100) mg/dL Calcium 8.4 8.6 (8.4-10.2) mg/dL Assessment and Plan Very Complex case, 26 year old male with ESRD on hemodialysis with hx of HIT, on coumadin (held for now), with hx of 2 previous paracentesis greater than 10 litres, cytologies negative, who developed SBO with obstruction in jejunum, so previous surgery except peritoneal dialysis catheter which was removed last year for infection, one episode of bacterial peritonitis. WBC normal, lipase normal, dialyzed yesterday, abd exam relatively benign, will order gastrograffin small bowel series and see if he opens up. He may require surgery so please hold coumadin.
[2016-07-02] MEDS ORDERED: MORPHINE IV PRN ×2 (08:04→09:00)
--- NOTE | 2016-07-02 13:53 | Progress Note ---
Assessment and Plan 26-year-old man with a history of HIT, ascitis, end-stage renal disease on dialysis Tuesday, hypertension comes emergency room with complaints of abdominal pain [address] abdomen and pelvis showed SBO at jejunum. Small bowel obstruction -Placed on bowel rest, NG tube, consulted surgery End Stage renal disease on dialysis -Consulted renal for dialysis, -patient received contrast for CT scan -s/p HD yesterday b/l LL Pneumonia, community acquired - infiltrate noted on CT - Started on IV Levaquin Hypoglycemia - He is NPO for SBO, will place on D5NS @30ml/h Hypertension -cont prn hydralazine h/o HIT - on chronic anticoagulation with coumadin as he is on HD h/o Ascitis - s/p paracenthesis at [place] few days ago - will get medical record from [facility] DVT prophylaxis with coumadin - has h/o HIT - now on hold for possible surgery - place on SCD Subjective Date of service: 07/02/16 Interval history: Pt seen and examined s/p HD yesterday on NG tube, had small bowel series today, result pending c/p abdominal distension Objective - Exam Narrative Exam: - General physical appearance Positive: chronically ill - Eyes Positive: PERRL, normal occular movement - ENT Positive: poor assisted, other (dysconjugate gaze) - Neck Positive: no masses, no bruits, trachea midline, no venous distension - Respiratory Positive: normal expansion, normal respiratory effort, clear to auscultation - Cardiovascular Rhythm: regular - Extremities Extremities: abnormal (access left upper arm) - Abdomen Abdomen: Present: soft, bowel sounds hypoactive (no rebound or guarding, NG patent) Hernia: none - Neurologic Neurologic: alert and oriented to time, place and person, motor strength and sensation are grossly intact - Psychiatric Psychiatric: appropriate mood/affect, intact judgment & insight - Labs CBC & Chem 7: 07/02/16 05:01 07/02/16 05:01 Labs: Abnormal lab results 07/01/16 07/02/16 07/02/16 Range/Units 13:15 05:01 05:01 Hgb 11.4 L (11.8-15.2) gm/dl RDW 17.4 H (13.2-15.2) % Monocytes % (Manual) 11.0 H (0.0-7.3) % Lymphocytes # (Manual) 0.7 L (1.2-5.4) K/mm3 Sodium 134 L (137-145) mmol/L Potassium 6.1 H* 5.2 H (3.6-5.0) mmol/L Chloride 80.9 L 88.5 L (98-107) mmol/L Carbon Dioxide 35 H (22-30) mmol/L BUN 61 H 32 H (9-20) mg/dL Creatinine 12.7 H 8.1 H (0.8-1.5) mg/dL Glucose 51 L 63 L (75-100) mg/dL
[2016-07-02 17:44] LABS: INR 1.99 (0.87-1.13)
[2016-07-02] MEDS: D5NS 1,000 ML IV SCH (21:27)
[2016-07-03] MEDS: MORPHINE IV PRN ×2 (01:33→09:32)
--- NOTE | 2016-07-03 07:40 | Event Note ---
Date: 07/03/16 HD 2, BP on the low side, maybe secondary to gastrograffin small bowel series, final results pending , patient had BM, Complex case, I suspect patient has relatively high grade SBO, unclear as to cause, some issues in distal jejunum, Coumadin on hold, INR needs to be less than 1.7 for surgery, patient may require surgical exploration, obviously high risk because of multiple medical issues, kannan HIT, will follow.hopefully dialysis today.
[2016-07-03 08:10] LABS: INR 2.18 (0.87-1.13)
[2016-07-03 08:25] LABS: Potassium TNR mmol/L (3.6-5.0)
[2016-07-03 08:26] LABS: Calcium TNR mg/dL (8.4-10.2); Glucose TNR mg/dL (75-100)
[2016-07-03 08:27] LABS: Chloride TNR mmol/L (98-107); Sodium TNR mmol/L (137-145)
[2016-07-03 08:28] LABS: Anion Gap TNR mmol/L; BUN/Creatinine Ratio TNR; Blood Urea Nitrogen TNR mg/dL (9-20); Carbon Dioxide TNR mmol/L (22-30)
[2016-07-03 09:28] LABS: BUN/Creatinine Ratio 4.44
[2016-07-03] MEDS: D5NS 1,000 ML IV SCH (09:31)
[2016-07-03] MEDS: ZOFRAN IV PRN (09:32)
[2016-07-03 09:45] LABS: Calcium 5.6 mg/dL (8.4-10.2)
[2016-07-03 09:46] LABS: Potassium 2.9 mmol/L (3.6-5.0)
--- NOTE | 2016-07-03 09:48 | Fluoroscopy Report ---
Small bowel follow-through: X. History: Small bowel obstruction. Findings: Transit of barium from gastroduodenal to ileocecal region was delayed and seen at 11 hours. Distended loops of small bowel again identified. The last radiograph was obtained at 21 hours and 40 minutes and reveals slight decrease in diameter of the distended loops of small bowel with passage of contrast in the colon. Impression: Incomplete small bowel obstruction.
--- NOTE | 2016-07-03 10:11 | Progress Note ---
Assessment and Plan End-stage renal disease patient is currently on maintenance hemodialysis Patient blood pressure is borderline low, may need to be transferred to ICU for close monitoring of his hemodynamic Will obstruction discussed with Dr. Lopez patient is high risk for surgery, Patient did have ascites and his case minoxidil should be avoided Labs needs to be repeated today, sure there is no lab better Preoperative for drug-induced thrombocytopenia patient will benefit from a hematology consultation Ascites of unclear etiology, patient was referred to [place] [facility] in the past Very poorly compliant patient, Hyperkalemia current potassium level needs to have a repeat BMP Patient needs an echocardiogram to make sure he does not have any pericardial effusion Patient has too many comorbidities, I would suggest a cardiology GI and hematology evaluation Subjective Interval history: Patient was seen for follow-up of multiple renal related issues Denies any acute complaints abdominal pain slowly improving Nausea vomiting doing better General appearance: appears stated age She does not appear to be in acute distress EENT: mucous membranes moist Neck: no JVDthyromegaly or nodule or mass Respiratory: Few bilateral basilar crackles Cardiology: regular, S1S2 Gastrointestinal: other (soft nontender bowel sounds hypoactive but present) Neurologic: alert and oriented x3 Psychiatric: mood/affect appropriate extremity: Edema approximately 1+ back: Nontender skin: dry skin Objective - Vital Signs Vital signs: Vital Signs - 12hr 07/03/16 07/03/16 07/03/16 00:26 05:22 08:05 Temperature 98.0 F Pulse Rate [ 85 Left] Respiratory 18 Rate Blood Pressure 90/51 86/53 [Left Radial Artery] O2 Sat by Pulse 84 Oximetry - Lab 07/04/16 08:34 07/06/16 06:46 Most recent lab results Calcium 5.6 mg/dL (8.4-10.2) L* D 07/03/16 08:50
--- NOTE | 2016-07-03 11:41 | Progress Note ---
Assessment and Plan Assessment and plan: 1. SBO History of peritoneal dialysis and removal of catheter due to peritonitis last year, so possible SBO due to adhesions CT abdomen showing dilated fluid and gas-filled loops of small bowel Surgery consulted and following; considering surgical intervention Status post Gastrografin small bowel series - results pending NPO, NGT to low intermittent suction, IV fluids 2. ESRD on HD Nephrology consulted and HD resumed 3. Hyperkalemia Medically treated then underwent HD BMP today with multiple lab errors, so will repeat it 3. Anemia Anemia of chronic renal disease/nutritional deficiencies Monitor H&H Epogen with HD Consider supplementation when able to take by mouth 4. Manutrition Albumin 2.7 Likely secondary to chronic disease/poor intake Consult loan secretary for supplementation when able to take by mouth 5. Ascitis/pleural effusions/pericardial effusion CT abdomen showing ascites and bilateral pleural effusions and echocardiogram showing minimal pericardial effusion and normal LV systolic function, but with abnormal diastolic filling Most likely secondary to hypoalbuminemia/malnutrition/possible noncompliance with HD 6. H/o HIT Currently platelets within normal limits Monitor 7. DVT prophylaxis Anticoagulated with Coumadin and INR therapeutic; on hold now for possible surgical procedure History Interval history: No specific complaints; reports having a bowel movement overnight, but not passing gas no Parets present in the room this morning, updated; despite answering all their questions a couple of times, they were extremely disrespectful, very rude, verbally abusive Hospitalist Physical - Constitutional Vitals: Temp Pulse Resp BP Pulse Ox 98.0 F 85 18 86/53 84 07/03/16 05:22 07/03/16 05:22 07/03/16 05:22 07/03/16 05:22 07/03/16 08:05 General appearance: Present: no acute distress, cachectic - EENT Eyes: Present: PERRL, EOM intact. Absent: scleral icterus, conjunctival injection ENT: hearing intact, clear oral mucosa - Neck Neck: Present: supple. Absent: enlarged thyroid, masses or JVD - Respiratory Respiratory effort: normal Respiratory: bilateral: diminished, negative: rhonchi, wheezing - Cardiovascular Rhythm: regular Heart Sounds: Present: S1 & S2. Absent: systolic murmur - Extremities Extremities: no ischemia - Abdominal General gastrointestinal: soft, tender, distended, hypoactive bowel sounds, other (NGT to low intermittent suction) Localized gastrointestinal: tender: epigastric periumbilical (no rebound or guarding) - Integumentary Integumentary: Present: warm, dry, pale. Absent: rash - Psychiatric Psychiatric: other (flat affect) - Neurologic Neurologic: CNII-XII intact, no focal deficits Results - Labs CBC & Chem 7: 07/02/16 05:01 07/03/16 20:10 Labs: Laboratory Last Values WBC 5.3 K/mm3 (4.5-11.0) 07/02/16 05:01 RBC 4.11 M/mm3 (3.65-5.03) 07/02/16 05:01 Hgb 11.4 gm/dl (11.8-15.2) L 07/02/16 05:01 Hct 35.8 % (35.5-45.6) 07/02/16 05:01 MCV 87 fl (84-94) 07/02/16 05:01 MCH 28 pg (28-32) 07/02/16 05:01 MCHC 32 % (32-34) 07/02/16 05:01 RDW 17.4 % (13.2-15.2) H 07/02/16 05:01 Plt Count 182 K/mm3 (140-440) 07/02/16 05:01 [place] % (Auto) Hospital Orderly 07/02/16 05:01 Add Manual Diff Complete 07/02/16 05:01 Total Counted 100 07/02/16 05:01 Seg Neuts % (Manual) 48.0 % (40.0-70.0) 07/02/16 05:01 Band Neutrophils % 27.0 % 07/02/16 05:01 Lymphocytes % (Manual) 14.0 % (13.4-35.0) 07/02/16 05:01 Reactive Lymphs % (Man) 0 % 07/02/16 05:01 Monocytes % (Manual) 11.0 % (0.0-7.3) H 07/02/16 05:01 Eosinophils % (Manual) 0 % (0.0-4.3) 07/02/16 05:01 Basophils % (Manual) 0 % (0.0-1.8) 07/02/16 05:01 Metamyelocytes % 0 % 07/02/16 05:01 Myelocytes % 0 % 07/02/16 05:01 Promyelocytes % 0 % 07/02/16 05:01 Blast Cells % 0 % 07/02/16 05:01 Nucleated RBC % Not Reportable 07/02/16 05:01 Seg Neutrophils # Man 2.5 K/mm3 (1.8-7.7) 07/02/16 05:01 Band Neutrophils # 1.4 K/mm3 07/02/16 05:01 Lymphocytes # (Manual) 0.7 K/mm3 (1.2-5.4) L 07/02/16 05:01 Abs React Lymphs (Man) 0.0 K/mm3 07/02/16 05:01 Monocytes # (Manual) 0.6 K/mm3 (0.0-0.8) 07/02/16 05:01 Eosinophils # (Manual) 0.0 K/mm3 (0.0-0.4) 07/02/16 05:01 Basophils # (Manual) 0.0 K/mm3 (0.0-0.1) 07/02/16 05:01 Metamyelocytes # 0.0 K/mm3 07/02/16 05:01 Myelocytes # 0.0 K/mm3 07/02/16 05:01 Promyelocytes # 0.0 K/mm3 07/02/16 05:01 Blast Cells # 0.0 K/mm3 07/02/16 05:01 WBC Morphology Not Reportable 07/02/16 05:01 Hypersegmented Neuts Not Reportable 07/02/16 05:01 Hyposegmented Neuts Not Reportable 07/02/16 05:01 Hypogranular Neuts Not Reportable 07/02/16 05:01 Smudge Cells Not Reportable 07/02/16 05:01 Toxic Granulation Not Reportable 07/02/16 05:01 Toxic Vacuolation Not Reportable 07/02/16 05:01 Dohle Bodies Not Reportable 07/02/16 05:01 Pelger-Huet Anomaly Not Reportable 07/02/16 05:01 Duy Rods Not Reportable 07/02/16 05:01 Platelet Estimate Appears normal 07/02/16 05:01 Clumped Platelets Not Reportable 07/02/16 05:01 Plt Clumps, EDTA Not Reportable 07/02/16 05:01 Large Platelets Few 07/02/16 05:01 Giant Platelets Not Reportable 07/02/16 05:01 Platelet Satelliting Not Reportable 07/02/16 05:01 Plt Morphology Comment Not Reportable 07/02/16 05:01 RBC Morphology Not Reportable 07/02/16 05:01 Dimorphic RBCs Not Reportable 07/02/16 05:01 Polychromasia Not Reportable 07/02/16 05:01 Hypochromasia 1+ 07/02/16 05:01 Poikilocytosis Not Reportable 07/02/16 05:01 Anisocytosis 1+ 07/02/16 05:01 Microcytosis Not Reportable 07/02/16 05:01 Macrocytosis Not Reportable 07/02/16 05:01 Spherocytes Not Reportable 07/02/16 05:01 Pappenheimer Bodies Not Reportable 07/02/16 05:01 Sickle Cells Not Reportable 07/02/16 05:01 Target Cells Not Reportable 07/02/16 05:01 Tear Drop Cells Not Reportable 07/02/16 05:01 Ovalocytes Not Reportable 07/02/16 05:01 Helmet Cells Not Reportable 07/02/16 05:01 [place] Bodies Not Reportable 07/02/16 05:01 [place] Rings Not Reportable 07/02/16 05:01 Roger Cells Not Reportable 07/02/16 05:01 Bite Cells Not Reportable 07/02/16 05:01 Crenated Cell Not Reportable 07/02/16 05:01 Elliptocytes Not Reportable 07/02/16 05:01 Acanthocytes (Spur) Not Reportable 07/02/16 05:01 Rouleaux Not Reportable 07/02/16 05:01 Hemoglobin C Crystals Not Reportable 07/02/16 05:01 Schistocytes Not Reportable 07/02/16 05:01 Malaria parasites Not Reportable 07/02/16 05:01 Adriel Bodies Not Reportable 07/02/16 05:01 Hem Pathologist Commnt No 07/02/16 05:01 PT 24.3 Sec. (12.2-14.9) H 07/03/16 06:56 INR 2.18 (0.87-1.13) H 07/03/16 06:56 APTT 47.5 Sec. (24.2-36.6) H 06/30/16 20:25 Sodium 143 mmol/L (137-145) 07/03/16 08:50 Potassium 2.9 mmol/L (3.6-5.0) L* D 07/03/16 08:50 Chloride 102.0 mmol/L (98-107) 07/03/16 08:50 Carbon Dioxide 27 mmol/L (22-30) D 07/03/16 08:50 Anion Gap 17 mmol/L 07/03/16 08:50 BUN 32 mg/dL (9-20) H 07/03/16 08:50 Creatinine 7.2 mg/dL (0.8-1.5) H 07/03/16 08:50 Estimated GFR 9 ml/min 07/03/16 08:50 BUN/Creatinine Ratio 4.44 % 07/03/16 08:50 Glucose 1252 mg/dL (75-100) H* 07/03/16 08:50 Calcium 5.6 mg/dL (8.4-10.2) L* D 07/03/16 08:50 Total Bilirubin 0.3 mg/dL (0.1-1.2) 06/30/16 20:25 AST 14 units/L (5-40) 06/30/16 20:25 ALT < 5 units/L (7-56) L 06/30/16 20:25 Alkaline Phosphatase 84 units/L (35-129) 06/30/16 20:25 Total Protein 6.5 g/dL (6.3-8.2) 06/30/16 20:25 Albumin 2.7 g/dL (3.9-5) L 06/30/16 20:25 Albumin/Globulin Ratio 0.7 % 06/30/16 20:25 Lipase 5 units/L (13-60) L 06/30/16 20:25 - Imaging and Cardiology CT scan - abdomen: report reviewed (dilated fluid and gas filled small bowel loops, ascites) Imaging and Cardiology: Echocardiogram - EF 60-65%, LVH, abnormal diastolic filling, minimal pericardial effusion, moderate pleural effusions
[2016-07-03] MEDS: KCL 10MEQ/100ML 10 MEQ/100 ML BAG IV SCH ×2 (15:00→17:30)
[2016-07-03] MEDS: PROCRIT IV PRN (15:00)
[2016-07-03] MEDS ORDERED: NACL 0.9 (PRIMING MACHINE ONLY DIALYSIS) MC ONE (15:12)
[2016-07-03 18:01] LABS: Anion Gap TNR mmol/L; BUN/Creatinine Ratio TNR; Blood Urea Nitrogen TNR mg/dL (9-20); Carbon Dioxide TNR mmol/L (22-30); Chloride TNR mmol/L (98-107); Glucose TNR mg/dL (75-100); Potassium TNR mmol/L (3.6-5.0); Sodium TNR mmol/L (137-145)
[2016-07-03 18:02] LABS: Calcium TNR mg/dL (8.4-10.2)
[2016-07-03 20:30] LABS: BUN/Creatinine Ratio 3.03; Calcium 8.7 mg/dL (8.4-10.2); Chloride 96.2 mmol/L (98-107); Potassium 4.4 mmol/L (3.6-5.0)
[2016-07-04] MEDS ORDERED: D50W (25GM) IV ONE ×3 (00:16→22:32)
[2016-07-04] MEDS: D5NS 1,000 ML IV SCH (00:51)
[2016-07-04 05:56] LABS: INR 3.2 (0.87-1.13)
[2016-07-04 09:11] LABS: Mean Corpuscular HGB Conc 29 % (32-34); Mean Corpuscular Hemoglobin 27 pg (28-32); Mean Corpuscular Volume 95 fl (84-94); Platelet Count 142 K/mm3 (140-440); Red Blood Count 3.47 M/mm3 (3.65-5.03); Red Cell Distribution Width 17.9 % (13.2-15.2); White Blood Count 5.7 K/mm3 (4.5-11.0)
[2016-07-04 09:22] LABS: Hemoglobin 9.5 gm/dl (11.8-15.2)
[2016-07-04 09:34] LABS: BUN/Creatinine Ratio 3.06; Blood Urea Nitrogen 15 mg/dL (9-20); Chloride 106.6 mmol/L (98-107); Potassium 3.5 mmol/L (3.6-5.0); Sodium 141 mmol/L (137-145)
[2016-07-04] MEDS: LEVAQUIN 250MG/50ML 250 MG/50 ML BAG IV SCH (09:47)
[2016-07-04] MEDS: MORPHINE IV PRN (09:48)
[2016-07-04] MEDS: ZOFRAN IV PRN (09:49)
[2016-07-04 09:56] LABS: Anion Gap TNR mmol/L; Calcium TNR mg/dL (8.4-10.2); Carbon Dioxide TNR mmol/L (22-30); Glucose TNR mg/dL (75-100)
--- NOTE | 2016-07-04 10:09 | Progress Note ---
Assessment and Plan End-stage renal disease patient is currently on maintenance hemodialysis, he will continue on maintenance hemodialysis on Tuesday schedule His hemodialysis prescription will need to be changed Bowel obstruction currently followed by general surgery History of bursitis status post tapping avoid minoxidil and his case History of thrombocytopenia with heparin patient will benefit from a hematology consultation Very poorly compliance chronically noncompliant Multiple comorbidities prognosis appears to be guarded to poor at this time We'll continue to follow recommendation from renal standpoint Patient has been adequately counseling educated about all his hospital records, his including renal issues and need for continuing dialysis currently his access appears to be working well Subjective Interval history: patient is seen today for follow-up of multiple related issues He still continues to be impatient regarding whether he would need surgery or not currently being followed by surgery Patient denies any complaints off fevers chills Events of 24 hours vital slaps intake output medications were reviewed Case was also discussed with the hospital medicine General appearance: appears stated age She does not appear to be in acute distress EENT: mucous membranes moist Neck: no JVDthyromegaly or nodule or mass Respiratory: Few bilateral basilar crackles Cardiology: regular, S1S2 Gastrointestinal: other (soft nontender bowel sounds hypoactive) Neurologic: alert and oriented x3 Psychiatric: mood/affect appropriate extremity: Edema approximately 1+ back: Nontender skin: dry skin Objective - Vital Signs Vital signs: Vital Signs - 12hr 07/04/16 07/04/16 07:00 07:44 Temperature 97.9 F Pulse Rate [ 74 Left] Respiratory 20 Rate Blood Pressure 91/56 [Left Radial Artery] O2 Sat by Pulse 98 98 Oximetry - Lab 07/04/16 08:34 07/06/16 06:46 Most recent lab results Calcium TNR 07/04/16 08:34
--- NOTE | 2016-07-04 11:34 | Progress Note ---
Assessment and Plan Assessment and plan: 1. SBO History of peritoneal dialysis and removal of catheter due to peritonitis last year, so possible SBO due to adhesions CT abdomen showing dilated fluid and gas-filled loops of small bowel Surgery consulted and following; follow recommendation Status post Gastrografin small bowel series -incomplete small bowel obstruction NPO, NGT to low intermittent suction, IV fluids 2. ESRD on HD Nephrology consulted and HD resumed 3. Hyperkalemia - Potassium this morning is 3.5 3. Anemia Anemia of chronic renal disease/nutritional deficiencies Monitor H&H Epogen with HD 4. Manutrition Albumin 2.7 Likely secondary to chronic disease/poor intake Consult diesel maintenance technician for supplementation when able to take by mouth 5. Ascitis/pleural effusions/pericardial effusion CT abdomen showing ascites and bilateral pleural effusions and echocardiogram showing minimal pericardial effusion and normal LV systolic function, but with abnormal diastolic filling Most likely secondary to hypoalbuminemia/malnutrition/possible noncompliance with HD - Cardiology consult placed for preoperative evaluation - GI consult placed for ascites, supposed to follow as an outpatient with [facility] 6. H/o HIT Currently platelets within normal limits Hematology consult placed, in case the patient needs anticoagulation - Patient's INR is still high - Patient claimed he of Coumadin for the last 5 days 7. Hypotension - Patient is on midodrine 8. DVT prophylaxis - INR is still in the therapeutic range - Coumadin is hold 9. Disposition - Continue inpatient care History Interval history: Patient stated he has 2 bowel movements over the last 24 hours, denied any abdominal pain. Patient's most significant amount of weight. The patient was very cooperative during examination, I have discussed the management and treatment plan with him, patient questions and concerns answered at bedside. Hospitalist Physical - Physical exam Narrative exam: Not in cardiopulmonary distress. The patient is emaciated. Vital signs as documented. Head exam is unremarkable. No scleral icterus . Neck is without jugular venous distension, thyromegaly, or carotid bruits. Lungs are clear to auscultation. Cardiac exam reveals regular rate and Rhythm. First and second heart sounds normal. No murmurs, rubs or gallops. Abdominal exam slightly distended abdomen, no mass or tenderness. Extremities are nonedematous and both femoral and pedal pulses are normal. ROLL EXAMINER: Alert and oriented 3. No focal weakness. - Constitutional Vitals: Temp Pulse Resp BP Pulse Ox 97.9 F 74 20 91/56 98 07/04/16 07:00 07/04/16 07:00 07/04/16 07:00 07/04/16 07:00 07/04/16 07:44 General appearance: Present: no acute distress, cachectic Results - Labs CBC & Chem 7: 07/04/16 08:34 07/04/16 08:34 Labs: Laboratory Last Values WBC 5.7 K/mm3 (4.5-11.0) 07/04/16 08:34 RBC 3.47 M/mm3 (3.65-5.03) L 07/04/16 08:34 Hgb 9.5 gm/dl (11.8-15.2) L 07/04/16 08:34 Hct 33.0 % (35.5-45.6) L 07/04/16 08:34 MCV 95 fl (84-94) H D 07/04/16 08:34 MCH 27 pg (28-32) L 07/04/16 08:34 MCHC 29 % (32-34) L 07/04/16 08:34 RDW 17.9 % (13.2-15.2) H 07/04/16 08:34 Plt Count 142 K/mm3 (140-440) 07/04/16 08:34 [place] % (Auto) Development Trainer 07/02/16 05:01 Add Manual Diff Complete 07/02/16 05:01 Total Counted 100 07/02/16 05:01 Seg Neuts % (Manual) 48.0 % (40.0-70.0) 07/02/16 05:01 Band Neutrophils % 27.0 % 07/02/16 05:01 Lymphocytes % (Manual) 14.0 % (13.4-35.0) 07/02/16 05:01 Reactive Lymphs % (Man) 0 % 07/02/16 05:01 Monocytes % (Manual) 11.0 % (0.0-7.3) H 07/02/16 05:01 Eosinophils % (Manual) 0 % (0.0-4.3) 07/02/16 05:01 Basophils % (Manual) 0 % (0.0-1.8) 07/02/16 05:01 Metamyelocytes % 0 % 07/02/16 05:01 Myelocytes % 0 % 07/02/16 05:01 Promyelocytes % 0 % 07/02/16 05:01 Blast Cells % 0 % 07/02/16 05:01 Nucleated RBC % Not Reportable 07/02/16 05:01 Seg Neutrophils # Man 2.5 K/mm3 (1.8-7.7) 07/02/16 05:01 Band Neutrophils # 1.4 K/mm3 07/02/16 05:01 Lymphocytes # (Manual) 0.7 K/mm3 (1.2-5.4) L 07/02/16 05:01 Abs React Lymphs (Man) 0.0 K/mm3 07/02/16 05:01 Monocytes # (Manual) 0.6 K/mm3 (0.0-0.8) 07/02/16 05:01 Eosinophils # (Manual) 0.0 K/mm3 (0.0-0.4) 07/02/16 05:01 Basophils # (Manual) 0.0 K/mm3 (0.0-0.1) 07/02/16 05:01 Metamyelocytes # 0.0 K/mm3 07/02/16 05:01 Myelocytes # 0.0 K/mm3 07/02/16 05:01 Promyelocytes # 0.0 K/mm3 07/02/16 05:01 Blast Cells # 0.0 K/mm3 07/02/16 05:01 WBC Morphology Not Reportable 07/02/16 05:01 Hypersegmented Neuts Not Reportable 07/02/16 05:01 Hyposegmented Neuts Not Reportable 07/02/16 05:01 Hypogranular Neuts Not Reportable 07/02/16 05:01 Smudge Cells Not Reportable 07/02/16 05:01 Toxic Granulation Not Reportable 07/02/16 05:01 Toxic Vacuolation Not Reportable 07/02/16 05:01 Dohle Bodies Not Reportable 07/02/16 05:01 Pelger-Huet Anomaly Not Reportable 07/02/16 05:01 Duy Rods Not Reportable 07/02/16 05:01 Platelet Estimate Appears normal 07/02/16 05:01 Clumped Platelets Not Reportable 07/02/16 05:01 Plt Clumps, EDTA Not Reportable 07/02/16 05:01 Large Platelets Few 07/02/16 05:01 Giant Platelets Not Reportable 07/02/16 05:01 Platelet Satelliting Not Reportable 07/02/16 05:01 Plt Morphology Comment Not Reportable 07/02/16 05:01 RBC Morphology Not Reportable 07/02/16 05:01 Dimorphic RBCs Not Reportable 07/02/16 05:01 Polychromasia Not Reportable 07/02/16 05:01 Hypochromasia 1+ 07/02/16 05:01 Poikilocytosis Not Reportable 07/02/16 05:01 Anisocytosis 1+ 07/02/16 05:01 Microcytosis Not Reportable 07/02/16 05:01 Macrocytosis Not Reportable 07/02/16 05:01 Spherocytes Not Reportable 07/02/16 05:01 Pappenheimer Bodies Not Reportable 07/02/16 05:01 Sickle Cells Not Reportable 07/02/16 05:01 Target Cells Not Reportable 07/02/16 05:01 Tear Drop Cells Not Reportable 07/02/16 05:01 Ovalocytes Not Reportable 07/02/16 05:01 Helmet Cells Not Reportable 07/02/16 05:01 Levy-Merrill Bodies Not Reportable 07/02/16 05:01 Morenci Rings Not Reportable 07/02/16 05:01 Roger Cells Not Reportable 07/02/16 05:01 Bite Cells Not Reportable 07/02/16 05:01 Crenated Cell Not Reportable 07/02/16 05:01 Elliptocytes Not Reportable 07/02/16 05:01 Acanthocytes (Spur) Not Reportable 07/02/16 05:01 Rouleaux Not Reportable 07/02/16 05:01 Hemoglobin C Crystals Not Reportable 07/02/16 05:01 Schistocytes Not Reportable 07/02/16 05:01 Malaria parasites Not Reportable 07/02/16 05:01 Adriel Bodies Not Reportable 07/02/16 05:01 Hem Pathologist Commnt No 07/02/16 05:01 PT 33.0 Sec. (12.2-14.9) H 07/04/16 05:09 INR 3.20 (0.87-1.13) H 07/04/16 05:09 APTT 47.5 Sec. (24.2-36.6) H 06/30/16 20:25 Sodium 141 mmol/L (137-145) 07/04/16 08:34 Potassium 3.5 mmol/L (3.6-5.0) L D 07/04/16 08:34 Chloride 106.6 mmol/L (98-107) 07/04/16 08:34 Carbon Dioxide TNR 07/04/16 08:34 Anion Gap TNR 07/04/16 08:34 BUN 15 mg/dL (9-20) 07/04/16 08:34 Creatinine 4.9 mg/dL (0.8-1.5) H 07/04/16 08:34 Estimated GFR 14 ml/min 07/04/16 08:34 BUN/Creatinine Ratio 3.06 % 07/04/16 08:34 Glucose TNR 07/04/16 08:34 Calcium TNR 07/04/16 08:34 Total Bilirubin 0.3 mg/dL (0.1-1.2) 06/30/16 20:25 AST 14 units/L (5-40) 06/30/16 20:25 ALT < 5 units/L (7-56) L 06/30/16 20:25 Alkaline Phosphatase 84 units/L (35-129) 06/30/16 20:25 Total Protein 6.5 g/dL (6.3-8.2) 06/30/16 20:25 Albumin 2.7 g/dL (3.9-5) L 06/30/16 20:25 Albumin/Globulin Ratio 0.7 % 06/30/16 20:25 Lipase 5 units/L (13-60) L 06/30/16 20:25
--- NOTE | 2016-07-04 13:46 | Event Note ---
Date: 07/04/16 VSS AF, NG with minimal output, hemodyn stable, had 2 BMs this am, I believe patient has significant partial SBO, remember transit time from stomach to colon at 12 hour, abd soft, no rebound or guarding, I need PT/INR corrected to less than 1.7 to consider surgery, I will repeat KUB in am, awaiting hematology input for correcting PT/INR. Continue present management. I spoke with patient about all of this.
[2016-07-04] MEDS: D10W 1,000 ML IV SCH (23:00)
[2016-07-05] MEDS: MORPHINE IV PRN ×6 (00:19→21:56)
[2016-07-05] MEDS: KCL 10MEQ/100ML 10 MEQ/100 ML BAG IV SCH (04:55)
--- NOTE | 2016-07-05 08:11 | Event Note ---
Date: 07/05/16 VSS AF, minimal complaints of pain, minimal NG output, ng d/yuni, leave NPO, need hematology to correct PT/INR, patient may require surgery.
[2016-07-05 08:16] LABS: BUN/Creatinine Ratio 2.89; Calcium 8.4 mg/dL (8.4-10.2); Chloride 95.6 mmol/L (98-107); Potassium 4.2 mmol/L (3.6-5.0)
[2016-07-05 08:25] LABS: INR 1.76 (0.87-1.13)
[2016-07-05] MEDS ORDERED: NACL 0.9% 100 ML IV PRN (08:29)
--- NOTE | 2016-07-05 08:31 | Progress Note ---
Assessment and Plan End-stage renal disease patient is currently on maintenance hemodialysis, On Tuesday and Tuesday Patient will continue to receive his hemodialysis treatment as scheduled Due to hypotension we'll change his dialysis prescription to contain higher dialysis sodium with sodium modeling Anemia and end-stage renal disease to monitor Current dialysis access is working well Secondary hyperparathyroidism to monitor phosphorus and PTH level periodically Malnutrition risk is high in dialysis patient in general please consider high- protein diet once able to take Overall counseling and education was done regarding renal related issues as well as surgical incisions in general to follow up with his surgeon We'll continue to follow and make recommendation from renal standpoint Subjective Interval history: patient is seen today for follow-up on multiple renal related issues He still continues to have intermittent abdominal pain wants to know whether he will go for surgery or not Patient has multiple health-related issues for which she is requiring different consultants Events of 24 hours by dose labs intake and output medications were reviewed General appearance: appears stated age She does not appear to be in acute distress EENT: mucous membranes moist Neck: no JVDthyromegaly or nodule or mass Respiratory: Few bilateral basilar crackles Cardiology: regular, S1S2 Gastrointestinal: other (soft nontender bowel sounds hypoactive) Neurologic: alert and oriented x3 Psychiatric: mood/affect appropriate extremity: Edema approximately 1+ back: Nontender skin: dry skin Objective - Vital Signs Vital signs: Vital Signs - 12hr 07/04/16 07/05/16 07/05/16 22:00 00:00 00:19 Temperature 97.6 F Pulse Rate [ 71 Left] Respiratory 18 18 20 Rate Respiratory 20 Rate [Abdomen] Blood Pressure 100/54 [Left Radial Artery] O2 Sat by Pulse 100 Oximetry 07/05/16 07/05/16 07/05/16 00:49 05:21 05:51 Temperature Pulse Rate [ Left] Respiratory 16 20 16 Rate Respiratory Rate [Abdomen] Blood Pressure [Left Radial Artery] O2 Sat by Pulse Oximetry - Lab 07/04/16 08:34 07/06/16 06:46 Most recent lab results Calcium 8.4 mg/dL (8.4-10.2) 07/05/16 07:40
--- NOTE | 2016-07-05 09:29 | XRay Report ---
ABDOMEN RADIOGRAPHS INDICATION: Small bowel obstruction. COMPARISON: 07/02/2016 small bowel series. FINDINGS: Frontal abdominal radiographs demonstrate overall lesser small bowel gaseous distention with maximum caliber loop in the left hemiabdomen measuring approximately 4 cm. Residual colonic contrast also lesser, now also seen in the rectosigmoid. No focal suspicious calcifications, pneumatosis or pneumoperitoneum. Clear visualized lung bases. Intact bones. CONCLUSION: Resolving partial small bowel obstruction, as described. Thank you for the opportunity to participate in this patient's care.
--- NOTE | 2016-07-05 09:40 | Consultation ---
<ZAC TRACY - Last Filed: 07/05/16 10:21> History of Present Illness Consult date: 07/05/16 Requesting physician: POONAM ASH Consult reason: pre op evaluation History of present illness: The patient is a 26-year-old man with a history of end-stage renal disease on dialysis MWF schedule), HTN, HIT (on Coumadin for HD), and tobacco use (smokes 3 -4 cigars daily). He is previously unknown to our practice. 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 He reports that the pain was a sharp, intermittent pain located in the LLQ that gradually spread to the entire abdomen. The pain was associated with n/v, but pt reports chronic n/ v. The pt also noted low BPs on the day of admission - says he took his BP with home monitor and noted BPs to be in 80s systolic and was feeling dizzy so this is what finally prompted him to present to ED. He denies any chest pain, palpitations, SOB, diaphoresis, or syncope. The pt reports that he recently was converted from PD to HD following peritonitis 3 months ago and recently had "12 pounds of fluid drained from my abdomen" at [facility] due to peritonitis. Following admission, pt was found to have SBO and cardiology has been consulted for pre-op clearance. On evaluation, pt denies any abdominal pain or complaints and states he had BM yesterday and the day before. Past History Past Medical History: dialysis, ESRD, hypertension, other (history of HIT) Past Surgical History: Other (history of creation of AV fistula) Social history: smoking Family history: no significant family history Medications and Allergies Allergies Allergy/AdvReac Type Severity Reaction Status Date / Time heparin Allergy lowers Verified 04/03/14 09:39 platelets Home Medications Medication Instructions Recorded Confirmed Last Taken Type Carvedilol [Coreg] 12.5 mg PO BID 07/01/16 07/01/16 Unknown History Clonidine HCl [Catapres] 0.3 mg PO TID 07/01/16 07/01/16 Unknown History Cyclobenzaprine [Flexeril] 5 mg PO BID 07/01/16 07/01/16 Unknown History Ergocalciferol [Vitamin D2] 1 cap PO QWEEK 07/01/16 07/01/16 Unknown History Esomeprazole Magnesium 40 mg PO QDAY 07/01/16 07/01/16 Unknown History Ferric Citrate (Nf) [Auryxia (Nf)] 210 mg PO TID 07/01/16 07/01/16 Unknown History Furosemide [Lasix TAB] 80 mg PO QDAY 07/01/16 07/01/16 Unknown History Gabapentin [Neurontin] 100 mg PO QHS 07/01/16 07/01/16 Unknown History Lisinopril [Zestril TAB] 40 mg PO QDAY 07/01/16 07/01/16 Unknown History NIFEdipine XL [Procardia Xl] 90 mg PO QDAY 07/01/16 07/01/16 Unknown History Ondansetron [Zofran TAB] 4 mg PO TID PRN 07/01/16 07/01/16 Unknown History Sertraline HCl [Zoloft] 50 mg PO QHS 07/01/16 07/01/16 Unknown History Vitamin B Comp and C/FA/Zn Cit 0.8 mg PO QDAY 07/01/16 07/01/16 Unknown History [Dialyvite 800-Zinc 15 Tab] Warfarin [Coumadin] 2 mg PO QDAY 07/01/16 07/01/16 Unknown History traZODone [Desyrel] 50 mg PO QHS PRN 07/01/16 07/01/16 Unknown History Active Meds: Active Medications Acetaminophen (Tylenol) 650 mg PO Q4H PRN PRN Reason: Pain MILD(1-3)/Fever >100.5/JENKINS Epoetin Davis (Procrit) 10,000 unit IV APRIL PRN PRN Reason: hemodialysis Last Admin: 07/03/16 15:00 Dose: 10,000 unit Levofloxacin/Dextrose (Levaquin 250mg/50ml) 250 mg in 50 mls @ 50 mls/hr IV Q48HR CHONG Last Admin: 07/04/16 09:47 Dose: 50 mls/hr Dextrose (D10w) 1,000 mls @ 30 mls/hr IV DIRECT CHONG Last Admin: 07/04/16 23:00 Dose: 30 mls/hr Sodium Chloride (Nacl 0.9%) 100 mls @ 999 mls/hr IV APRIL PRN PRN Reason: Hypotension Morphine Sulfate (Morphine) 1 mg IV Q4H PRN PRN Reason: Pain , Severe (7-10) Last Admin: 07/05/16 05:21 Dose: 1 mg Ondansetron HCl (Zofran) 4 mg IV Q8H PRN PRN Reason: Nausea And Vomiting Last Admin: 07/04/16 09:49 Dose: 4 mg Review of Systems Constitutional: weight loss, no weight gain, no fever, no chills, no sweats Ears, nose, mouth and throat: no ear pain, no nose pain, no nasal congestion, no nasal discharge, no sinus pressure, no sinus pain Cardiovascular: lightheadedness, no chest pain, no orthopnea, no palpitations, no rapid/irregular heart beat, no edema, no syncope, no shortness of breath, no dyspnea on exertion, no high blood pressure, no leg edema Respiratory: no cough, no shortness of breath, no dyspnea on exertion, no congestion, no wheezing, no pain Gastrointestinal: abdominal pain, nausea, vomiting, no diarrhea, no constipation , no change in bowel habits Genitourinary Male: no dysuria, no hematuria, no flank pain, no discharge, no urinary frequency, no urinary hesitancy Musculoskeletal: no neck stiffness, no neck pain, no shooting arm pain, no arm numbness/tingling, no low back pain, no shooting leg pain, no leg numbness/ tingling, no redness of joints Integumentary: no rash, no pruritis, no redness, no sores, no wounds Neurological: no head injury, no paralysis, no weakness, no parathesias, no numbness, no tingling, no seizures Psychiatric: depression, no anxiety Endocrine: no cold intolerance, no heat intolerance Hematologic/Lymphatic: no easy bruising, no easy bleeding, no lymphadenopathy Allergic/Immunologic: no urticaria, no wheezing, no persistent infections Physical Examination Vital Signs Temp Pulse Resp BP Pulse Ox 98.1 F 106 H 16 97/61 98 06/30/16 20:04 06/30/16 20:04 06/30/16 20:04 06/30/16 20:04 06/30/16 20:04 General appearance: no acute distress HEENT: Positive: PERRL, Normocephaly, Mucus Membranes Moist Neck: Positive: neck supple, trachea midline Cardiac: Positive: Reg Rate and Rhythm, S1/S2 Lungs: Positive: Normal Exam, clear to auscultation, Normal Breath Sounds Neuro: Positive: Grossly Intact, Cranial Nerve 2-12 Intact Abdomen: Positive: Unremarkable, Soft, Active Bowel Sounds. Negative: Tender Skin: Positive: Clear. Negative: Rash, Wound Musculoskeletal: No Fluid Collection, No Pain, Normal Range of Motion Extremities: Present: upper extr. pulses, lower extr. pulses. Absent: edema Results 07/04/16 08:34 07/05/16 07:40 Coagulation 07/05/16 Range/Units 07:40 PT 20.5 H (12.2-14.9) Sec. INR 1.76 H (0.87-1.13) Comprehensive Metabolic Panel 07/04/16 07/05/16 Range/Units 08:34 07:40 Sodium 138 (137-145) mmol/L Potassium 3.5 L D 4.2 (3.6-5.0) mmol/L Chloride 95.6 L (98-107) mmol/L Carbon Dioxide TNR 30 BUN 24 H (9-20) mg/dL Creatinine 8.3 H D (0.8-1.5) mg/dL Glucose TNR 134 H Calcium TNR 8.4 - Imaging and Cardiology Echo: report reviewed (06/2016: EF 60 - 65%, mild LVH, impaired relaxation, mild MR, trace TR, minimal pericardial effusion, moderate pleural effusion) EKG: pending Assessment and Plan Assessment: SBO - resolving. ESRD, on HD Anemia H/o HTN - with recent hypotension now improved. H/o HIT Plan: Obtain 12-lead EKG. Cont current management. Currently stable cardiac status. Pending EKG reveals NAF, pt is at low to moderate risk for cardiovascular complications for surgical intervention of SBO. There are no immediate cardiac contraindications to proceeding with procedure at this time. Assessment and plan reviewed with pt at bedside. The patient has been seen in conjunction with Dr. Benito who agrees with the assessment and plan of care. <JAMA BENITO - Last Filed: 07/05/16 11:16> Medications and Allergies Active Meds: Active Medications Acetaminophen (Tylenol) 650 mg PO Q4H PRN PRN Reason: Pain MILD(1-3)/Fever >100.5/JENKINS Epoetin Davis (Procrit) 10,000 unit IV APRIL PRN PRN Reason: hemodialysis Last Admin: 07/03/16 15:00 Dose: 10,000 unit Levofloxacin/Dextrose (Levaquin 250mg/50ml) 250 mg in 50 mls @ 50 mls/hr IV Q48HR CHONG Last Admin: 07/04/16 09:47 Dose: 50 mls/hr Dextrose (D10w) 1,000 mls @ 30 mls/hr IV DIRECT CHONG Last Admin: 07/04/16 23:00 Dose: 30 mls/hr Sodium Chloride (Nacl 0.9%) 100 mls @ 999 mls/hr IV APRIL PRN PRN Reason: Hypotension Morphine Sulfate (Morphine) 1 mg IV Q4H PRN PRN Reason: Pain , Severe (7-10) Last Admin: 07/05/16 10:03 Dose: 1 mg Ondansetron HCl (Zofran) 4 mg IV Q8H PRN PRN Reason: Nausea And Vomiting Last Admin: 07/04/16 09:49 Dose: 4 mg Physical Examination Vital Signs Temp Pulse Resp BP Pulse Ox 98.1 F 106 H 16 97/61 98 06/30/16 20:04 06/30/16 20:04 06/30/16 20:04 06/30/16 20:04 06/30/16 20:04 Results 07/04/16 08:34 07/05/16 07:40 Coagulation 07/05/16 Range/Units 07:40 PT 20.5 H (12.2-14.9) Sec. INR 1.76 H (0.87-1.13) Comprehensive Metabolic Panel 07/05/16 Range/Units 07:40 Sodium 138 (137-145) mmol/L Potassium 4.2 (3.6-5.0) mmol/L Chloride 95.6 L (98-107) mmol/L Carbon Dioxide 30 (22-30) mmol/L BUN 24 H (9-20) mg/dL Creatinine 8.3 H D (0.8-1.5) mg/dL Glucose 134 H (75-100) mg/dL Calcium 8.4 (8.4-10.2) mg/dL Assessment and Plan Pt passing states Abdominal pain much improved. Pt passing gas and having bowel movements. Pt is low to moderate risk for cardiovascular complications.
--- NOTE | 2016-07-05 13:14 | Progress Note ---
Assessment and Plan Assessment and plan: 1. SBO History of peritoneal dialysis and removal of catheter due to peritonitis last year, so possible SBO due to adhesions CT abdomen showing dilated fluid and gas-filled loops of small bowel Surgery consulted and following; follow recommendation Status post Gastrografin small bowel series -incomplete small bowel obstruction NPO, NG tube removed 2. ESRD on HD Nephrology consulted and HD resumed 3. Hyperkalemia - will continue dialysis 3. Anemia Anemia of chronic renal disease/nutritional deficiencies Monitor H&H Epogen with HD 4. Manutrition Albumin 2.7 Likely secondary to chronic disease/poor intake Consult pi/senior research associate for supplementation when able to take by mouth 5. Ascitis/pleural effusions/pericardial effusion CT abdomen showing ascites and bilateral pleural effusions and echocardiogram showing minimal pericardial effusion and normal LV systolic function, but with abnormal diastolic filling Most likely secondary to hypoalbuminemia/malnutrition/possible noncompliance with HD - Cardiology consult placed for preoperative evaluation - GI consult placed for ascites, supposed to follow as an outpatient with [facility] 6. H/o HIT Currently platelets within normal limits Hematology consult placed, in case the patient needs anticoagulation - Patient's INR is still high - Patient claimed he of Coumadin for the last 5 days 7. Hypotension - Patient is on midodrine 8. DVT prophylaxis - INR is still in the therapeutic range - Coumadin is hold 9. Disposition - Continue inpatient care History Interval history: Patient stated he has bowel movements, denied any abdominal pain. Patient's most significant amount of weight. The patient was very cooperative during examination, I have discussed the management and treatment plan with him, patient questions and concerns answered at bedside. His father was also in the room when i discussed the management plan patient. Hospitalist Physical - Physical exam Narrative exam: Not in cardiopulmonary distress. The patient is emaciated. Vital signs as documented. Head exam is unremarkable. No scleral icterus . Neck is without jugular venous distension, thyromegaly, or carotid bruits. Lungs are clear to auscultation. Cardiac exam reveals regular rate and Rhythm. First and second heart sounds normal. No murmurs, rubs or gallops. Abdominal exam slightly distended abdomen, no mass or tenderness. Extremities are nonedematous and both femoral and pedal pulses are normal. HOME HEALTH NURSE LICENSED PRACTICAL: Alert and oriented 3. No focal weakness. - Constitutional Vitals: Temp Pulse Resp BP Pulse Ox 97.8 F 62 20 116/75 100 07/05/16 08:00 07/05/16 08:00 07/05/16 10:00 07/05/16 08:00 07/05/16 08:00 General appearance: Present: no acute distress Results - Labs CBC & Chem 7: 07/04/16 08:34 07/05/16 07:40 Labs: Laboratory Last Values WBC 5.7 K/mm3 (4.5-11.0) 07/04/16 08:34 RBC 3.47 M/mm3 (3.65-5.03) L 07/04/16 08:34 Hgb 9.5 gm/dl (11.8-15.2) L 07/04/16 08:34 Hct 33.0 % (35.5-45.6) L 07/04/16 08:34 MCV 95 fl (84-94) H D 07/04/16 08:34 MCH 27 pg (28-32) L 07/04/16 08:34 MCHC 29 % (32-34) L 07/04/16 08:34 RDW 17.9 % (13.2-15.2) H 07/04/16 08:34 Plt Count 142 K/mm3 (140-440) 07/04/16 08:34 Wake % (Auto) Manuscripts Curator 07/02/16 05:01 Add Manual Diff Complete 07/02/16 05:01 Total Counted 100 07/02/16 05:01 Seg Neuts % (Manual) 48.0 % (40.0-70.0) 07/02/16 05:01 Band Neutrophils % 27.0 % 07/02/16 05:01 Lymphocytes % (Manual) 14.0 % (13.4-35.0) 07/02/16 05:01 Reactive Lymphs % (Man) 0 % 07/02/16 05:01 Monocytes % (Manual) 11.0 % (0.0-7.3) H 07/02/16 05:01 Eosinophils % (Manual) 0 % (0.0-4.3) 07/02/16 05:01 Basophils % (Manual) 0 % (0.0-1.8) 07/02/16 05:01 Metamyelocytes % 0 % 07/02/16 05:01 Myelocytes % 0 % 07/02/16 05:01 Promyelocytes % 0 % 07/02/16 05:01 Blast Cells % 0 % 07/02/16 05:01 Nucleated RBC % Not Reportable 07/02/16 05:01 Seg Neutrophils # Man 2.5 K/mm3 (1.8-7.7) 07/02/16 05:01 Band Neutrophils # 1.4 K/mm3 07/02/16 05:01 Lymphocytes # (Manual) 0.7 K/mm3 (1.2-5.4) L 07/02/16 05:01 Abs React Lymphs (Man) 0.0 K/mm3 07/02/16 05:01 Monocytes # (Manual) 0.6 K/mm3 (0.0-0.8) 07/02/16 05:01 Eosinophils # (Manual) 0.0 K/mm3 (0.0-0.4) 07/02/16 05:01 Basophils # (Manual) 0.0 K/mm3 (0.0-0.1) 07/02/16 05:01 Metamyelocytes # 0.0 K/mm3 07/02/16 05:01 Myelocytes # 0.0 K/mm3 07/02/16 05:01 Promyelocytes # 0.0 K/mm3 07/02/16 05:01 Blast Cells # 0.0 K/mm3 07/02/16 05:01 WBC Morphology Not Reportable 07/02/16 05:01 Hypersegmented Neuts Not Reportable 07/02/16 05:01 Hyposegmented Neuts Not Reportable 07/02/16 05:01 Hypogranular Neuts Not Reportable 07/02/16 05:01 Smudge Cells Not Reportable 07/02/16 05:01 Toxic Granulation Not Reportable 07/02/16 05:01 Toxic Vacuolation Not Reportable 07/02/16 05:01 Dohle Bodies Not Reportable 07/02/16 05:01 Pelger-Huet Anomaly Not Reportable 07/02/16 05:01 Duy Rods Not Reportable 07/02/16 05:01 Platelet Estimate Appears normal 07/02/16 05:01 Clumped Platelets Not Reportable 07/02/16 05:01 Plt Clumps, EDTA Not Reportable 07/02/16 05:01 Large Platelets Few 07/02/16 05:01 Giant Platelets Not Reportable 07/02/16 05:01 Platelet Satelliting Not Reportable 07/02/16 05:01 Plt Morphology Comment Not Reportable 07/02/16 05:01 RBC Morphology Not Reportable 07/02/16 05:01 Dimorphic RBCs Not Reportable 07/02/16 05:01 Polychromasia Not Reportable 07/02/16 05:01 Hypochromasia 1+ 07/02/16 05:01 Poikilocytosis Not Reportable 07/02/16 05:01 Anisocytosis 1+ 07/02/16 05:01 Microcytosis Not Reportable 07/02/16 05:01 Macrocytosis Not Reportable 07/02/16 05:01 Spherocytes Not Reportable 07/02/16 05:01 Pappenheimer Bodies Not Reportable 07/02/16 05:01 Sickle Cells Not Reportable 07/02/16 05:01 Target Cells Not Reportable 07/02/16 05:01 Tear Drop Cells Not Reportable 07/02/16 05:01 Ovalocytes Not Reportable 07/02/16 05:01 Helmet Cells Not Reportable 07/02/16 05:01 Levy-[place] Bodies Not Reportable 07/02/16 05:01 [place] Rings Not Reportable 07/02/16 05:01 [place] Cells Not Reportable 07/02/16 05:01 Bite Cells Not Reportable 07/02/16 05:01 Crenated Cell Not Reportable 07/02/16 05:01 Elliptocytes Not Reportable 07/02/16 05:01 Acanthocytes (Spur) Not Reportable 07/02/16 05:01 Rouleaux Not Reportable 07/02/16 05:01 Hemoglobin C Crystals Not Reportable 07/02/16 05:01 Schistocytes Not Reportable 07/02/16 05:01 Malaria parasites Not Reportable 07/02/16 05:01 Adriel Bodies Not Reportable 07/02/16 05:01 Hem Pathologist Commnt No 07/02/16 05:01 PT 20.5 Sec. (12.2-14.9) H 07/05/16 07:40 INR 1.76 (0.87-1.13) H 07/05/16 07:40 APTT 47.5 Sec. (24.2-36.6) H 06/30/16 20:25 Sodium 138 mmol/L (137-145) 07/05/16 07:40 Potassium 4.2 mmol/L (3.6-5.0) 07/05/16 07:40 Chloride 95.6 mmol/L (98-107) L 07/05/16 07:40 Carbon Dioxide 30 mmol/L (22-30) 07/05/16 07:40 Anion Gap 17 mmol/L 07/05/16 07:40 BUN 24 mg/dL (9-20) H 07/05/16 07:40 Creatinine 8.3 mg/dL (0.8-1.5) H D 07/05/16 07:40 Estimated GFR 8 ml/min 07/05/16 07:40 BUN/Creatinine Ratio 2.89 % 07/05/16 07:40 Glucose 134 mg/dL (75-100) H 07/05/16 07:40 Calcium 8.4 mg/dL (8.4-10.2) 07/05/16 07:40 Total Bilirubin 0.3 mg/dL (0.1-1.2) 06/30/16 20:25 AST 14 units/L (5-40) 06/30/16 20:25 ALT < 5 units/L (7-56) L 06/30/16 20:25 Alkaline Phosphatase 84 units/L (35-129) 06/30/16 20:25 Total Protein 6.5 g/dL (6.3-8.2) 06/30/16 20:25 Albumin 2.7 g/dL (3.9-5) L 06/30/16 20:25 Albumin/Globulin Ratio 0.7 % 06/30/16 20:25 Lipase 5 units/L (13-60) L 06/30/16 20:25
--- NOTE | 2016-07-05 15:04 | Event Note ---
Date: 07/05/16 EKG reviewed with [facility]. Pt is at low to moderate risk for cardiovascular complications for surgical intervention of SBO. There are no immediate cardiac contraindications to proceeding with procedure at this time. Sri TRACY NP / DR. BENITO
[2016-07-05] MEDS ORDERED: D50W (25GM) IV PRN (22:20)
[2016-07-05] MEDS: D10W 1,000 ML IV SCH (23:18)
--- NOTE | 2016-07-06 02:56 | Consultation ---
REFERRING PHYSICIAN: Lev Ortez MD INDICATION: Ascites. HISTORY OF PRESENT ILLNESS: The patient is a 26-year-old white male with history of end-stage renal disease, on dialysis; hypertension, has been seen by GI for ascites. The patient previously was on peritoneal dialysis. He reports first bout of ascites was during the time he had just come off of it. He reports this was that. The patient reports a week ago, he developed some ascites and had to have fluid removed again. He reports that was on the second time. The patient reports that he had seen lubricator granulator as an outpatient, was to be further evaluated. The patient reports no history of known liver disease. Denies any history of hepatitis. He reports he has never been told his liver numbers were abnormal. Denies any family history of liver disease. No other specific GI related problems or complaints. PAST MEDICAL HISTORY: 1. End-stage renal disease, on dialysis. 2. Status post AV fistula. 3. Hypertension. MEDICATIONS: See chart. ALLERGIES: Heparin. SOCIAL HISTORY: Denies alcohol, tobacco, or IV drug abuse. FAMILY HISTORY: Negative for colon cancer. REVIEW OF SYSTEMS: GENERAL: Reports mild weakness. HEENT: No visual complaints or tinnitus. PULMONARY: No shortness of breath. No cough. No chest pain. GASTROINTESTINAL: Reports ascites. All points of 13-point review of systems otherwise negative. PHYSICAL EXAMINATION: VITAL SIGNS: Temperature of 97.8, pulse 62, respirations 18, blood pressure 120/80. GENERAL: Fairly nourished male in no acute distress. HEENT: Pupils equal, round, reactive. PULMONARY: Clear to auscultation bilaterally. CARDIOVASCULAR: Regular rhythm. Normal S1, S2. ABDOMEN: Positive bowel sounds, soft. SKIN: No obvious rashes. DIAGNOSTIC DATA: Pertinent radiology consistent with small-bowel obstruction and [id number] ascites. LABORATORY DATA: White count of 5.7, hemoglobin and hematocrit 9.5 and 30.0, platelet count of 142. INR of 3.2. LFTs within normal limits. Albumin of 2.7. ASSESSMENT: A 26-year-old male with history of end-stage renal disease, on dialysis who had presented actually this admission with signs and symptoms of small-bowel obstruction and also noted to have ascites. The patient reports ascites has been drained twice, once last year and once about a week ago. He reports no known history of liver disease. On evaluation of his labs, I doubt, the patient has underlying cirrhosis or significant liver disease. He reports no history of heart problems. Management as noted below. PLAN: 1. Hemodialysis and renal complaints per primary team. 2. We will review CT scan. 3. The patient reportedly was seen in our office and we will review office chart. 4. Ultrasound with Doppler. 5. Liver related labs. 6. The patient's belly is benign at this time and no need for ascites. 7. If the patient is stable, the patient can be discharged from a GI standpoint and can complete further evaluation as an outpatient. JOB# [id number] CAB/NTS
[2016-07-06] MEDS: MORPHINE IV PRN ×3 (06:18→20:40)
[2016-07-06 07:52] LABS: BUN/Creatinine Ratio 3.25; Calcium 8.6 mg/dL (8.4-10.2); Chloride 92.7 mmol/L (98-107); INR 1.69 (0.87-1.13); Potassium 4.3 mmol/L (3.6-5.0)
--- NOTE | 2016-07-06 07:56 | Progress Note ---
Assessment and Plan Assessment and plan: 26-year-old man with a history of end-stage renal disease on dialysis Tuesday with poor compliance with hemodialysis, hypertension comes emergency room , sp recent large volume paracentesis at (5.5L) with complaints of abdominal pain 1 week. found to have SBO, likely 2/2 abdominal adhesions 1. SBO History of peritoneal dialysis and removal of catheter due to peritonitis last year, so possible SBO due to adhesions improved, NG tube DC yesterday, start clear liquid diet Plan is conservative management, advance diet, then dc home Dr Lanza (surgery) input appreciated As per cardiology patient is optimized if surgery is needed in the near future 2. ESRD on HD HD per nephrology 3. Moderate Manutrition Albumin 2.7 Encourage balanced diet when patient able to tolerate by mouth 6. H/o HIT Currently platelets within normal limits -coumadin on hold as patient may need surgery current INR is 1.6 7. Hypotension - continue midodrine History Interval history: Belly pain is improved, patient has had bowel movements. Denies nausea vomiting Hospitalist Physical - Physical exam Narrative exam: General: Patient appears well in no distress HEENT: MMM, EOMI cardiac: S1-S2 heard lungs: clear to auscultation, abdomen: soft, nontender, nondistended bowel sounds positive extremities: no edema clubbing or cyanosis Skin: no rash or lesion Neuro: no focal deficit Psych: appropriate behavior and mood, cognition intact - Constitutional Vitals: Temp Pulse Resp BP Pulse Ox 97.5 F L 70 18 120/85 99 07/06/16 07:20 07/06/16 07:20 07/06/16 07:20 07/06/16 07:20 07/06/16 07:20 General appearance: Present: no acute distress Results - Labs CBC & Chem 7: 07/04/16 08:34 07/06/16 06:46 Labs: Laboratory Last Values WBC 5.7 K/mm3 (4.5-11.0) 07/04/16 08:34 RBC 3.47 M/mm3 (3.65-5.03) L 07/04/16 08:34 Hgb 9.5 gm/dl (11.8-15.2) L 07/04/16 08:34 Hct 33.0 % (35.5-45.6) L 07/04/16 08:34 MCV 95 fl (84-94) H D 07/04/16 08:34 MCH 27 pg (28-32) L 07/04/16 08:34 MCHC 29 % (32-34) L 07/04/16 08:34 RDW 17.9 % (13.2-15.2) H 07/04/16 08:34 Plt Count 142 K/mm3 (140-440) 07/04/16 08:34 [place] % (Auto) Tobacco Feeder Catcher 07/02/16 05:01 Add Manual Diff Complete 07/02/16 05:01 Total Counted 100 07/02/16 05:01 Seg Neuts % (Manual) 48.0 % (40.0-70.0) 07/02/16 05:01 Band Neutrophils % 27.0 % 07/02/16 05:01 Lymphocytes % (Manual) 14.0 % (13.4-35.0) 07/02/16 05:01 Reactive Lymphs % (Man) 0 % 07/02/16 05:01 Monocytes % (Manual) 11.0 % (0.0-7.3) H 07/02/16 05:01 Eosinophils % (Manual) 0 % (0.0-4.3) 07/02/16 05:01 Basophils % (Manual) 0 % (0.0-1.8) 07/02/16 05:01 Metamyelocytes % 0 % 07/02/16 05:01 Myelocytes % 0 % 07/02/16 05:01 Promyelocytes % 0 % 07/02/16 05:01 Blast Cells % 0 % 07/02/16 05:01 Nucleated RBC % Not Reportable 07/02/16 05:01 Seg Neutrophils # Man 2.5 K/mm3 (1.8-7.7) 07/02/16 05:01 Band Neutrophils # 1.4 K/mm3 07/02/16 05:01 Lymphocytes # (Manual) 0.7 K/mm3 (1.2-5.4) L 07/02/16 05:01 Abs React Lymphs (Man) 0.0 K/mm3 07/02/16 05:01 Monocytes # (Manual) 0.6 K/mm3 (0.0-0.8) 07/02/16 05:01 Eosinophils # (Manual) 0.0 K/mm3 (0.0-0.4) 07/02/16 05:01 Basophils # (Manual) 0.0 K/mm3 (0.0-0.1) 07/02/16 05:01 Metamyelocytes # 0.0 K/mm3 07/02/16 05:01 Myelocytes # 0.0 K/mm3 07/02/16 05:01 Promyelocytes # 0.0 K/mm3 07/02/16 05:01 Blast Cells # 0.0 K/mm3 07/02/16 05:01 WBC Morphology Not Reportable 07/02/16 05:01 Hypersegmented Neuts Not Reportable 07/02/16 05:01 Hyposegmented Neuts Not Reportable 07/02/16 05:01 Hypogranular Neuts Not Reportable 07/02/16 05:01 Smudge Cells Not Reportable 07/02/16 05:01 Toxic Granulation Not Reportable 07/02/16 05:01 Toxic Vacuolation Not Reportable 07/02/16 05:01 Dohle Bodies Not Reportable 07/02/16 05:01 Pelger-[place]uet Anomaly Not Reportable 07/02/16 05:01 Duy Rods Not Reportable 07/02/16 05:01 Platelet Estimate Appears normal 07/02/16 05:01 Clumped Platelets Not Reportable 07/02/16 05:01 Plt Clumps, EDTA Not Reportable 07/02/16 05:01 Large Platelets Few 07/02/16 05:01 Giant Platelets Not Reportable 07/02/16 05:01 Platelet Satelliting Not Reportable 07/02/16 05:01 Plt Morphology Comment Not Reportable 07/02/16 05:01 RBC Morphology Not Reportable 07/02/16 05:01 Dimorphic RBCs Not Reportable 07/02/16 05:01 Polychromasia Not Reportable 07/02/16 05:01 Hypochromasia 1+ 07/02/16 05:01 Poikilocytosis Not Reportable 07/02/16 05:01 Anisocytosis 1+ 07/02/16 05:01 Microcytosis Not Reportable 07/02/16 05:01 Macrocytosis Not Reportable 07/02/16 05:01 Spherocytes Not Reportable 07/02/16 05:01 Pappenheimer Bodies Not Reportable 07/02/16 05:01 Sickle Cells Not Reportable 07/02/16 05:01 Target Cells Not Reportable 07/02/16 05:01 Tear Drop Cells Not Reportable 07/02/16 05:01 Ovalocytes Not Reportable 07/02/16 05:01 Helmet Cells Not Reportable 07/02/16 05:01 [place] Bodies Not Reportable 07/02/16 05:01 [place] Rings Not Reportable 07/02/16 05:01 [place] Cells Not Reportable 07/02/16 05:01 Bite Cells Not Reportable 07/02/16 05:01 Crenated Cell Not Reportable 07/02/16 05:01 Elliptocytes Not Reportable 07/02/16 05:01 Acanthocytes (Spur) Not Reportable 07/02/16 05:01 Rouleaux Not Reportable 07/02/16 05:01 Hemoglobin C Crystals Not Reportable 07/02/16 05:01 Schistocytes Not Reportable 07/02/16 05:01 Malaria parasites Not Reportable 07/02/16 05:01 Adriel Bodies Not Reportable 07/02/16 05:01 Hem Pathologist Commnt No 07/02/16 05:01 PT 19.9 Sec. (12.2-14.9) H 07/06/16 06:46 INR 1.69 (0.87-1.13) H 07/06/16 06:46 APTT 47.5 Sec. (24.2-36.6) H 06/30/16 20:25 Sodium 134 mmol/L (137-145) L 07/06/16 06:46 Potassium 4.3 mmol/L (3.6-5.0) 07/06/16 06:46 Chloride 92.7 mmol/L (98-107) L 07/06/16 06:46 Carbon Dioxide 24 mmol/L (22-30) 07/06/16 06:46 Anion Gap 22 mmol/L 07/06/16 06:46 BUN 29 mg/dL (9-20) H 07/06/16 06:46 Creatinine 8.9 mg/dL (0.8-1.5) H 07/06/16 06:46 Estimated GFR 7 ml/min 07/06/16 06:46 BUN/Creatinine Ratio 3.25 % 07/06/16 06:46 Glucose 58 mg/dL (75-100) L 07/06/16 06:46 Calcium 8.6 mg/dL (8.4-10.2) 07/06/16 06:46 Total Bilirubin 0.3 mg/dL (0.1-1.2) 06/30/16 20:25 AST 14 units/L (5-40) 06/30/16 20:25 ALT < 5 units/L (7-56) L 06/30/16 20:25 Alkaline Phosphatase 84 units/L (35-129) 06/30/16 20:25 Total Protein 6.5 g/dL (6.3-8.2) 06/30/16 20:25 Albumin 2.7 g/dL (3.9-5) L 06/30/16 20:25 Albumin/Globulin Ratio 0.7 % 06/30/16 20:25 Lipase 5 units/L (13-60) L 06/30/16 20:25
--- NOTE | 2016-07-06 08:33 | Ultrasound Report ---
RIGHT UPPER QUADRANT ULTRASOUND: HISTORY: Liver disease. Technique: Transabdominal ultrasound imaging with Doppler interrogation. FINDINGS: Correlation is made with the CT abdomen and pelvis with contrast performed 07/01/16. The liver appears normal size, contour and echotexture. No parenchymal liver disease is suspected on ultrasound or CT. No focal liver mass. There is moderate to large non-shadowing debris within the gallbladder consistent with sludge. No calcified gallstones are identified. The CBD measures 6 mm. The pancreas is obscured. The right kidney is atrophic and measures 5.7 cm in length. No hydronephrosis. The proximal aorta is normal caliber measuring 2 cm. There is mild to moderate perihepatic ascites. IMPRESSION: Mild to moderate ascites. This appears to be secondary to a small bowel obstruction or renal failure and not secondary to liver disease. Moderate sludge in the gallbladder but no evidence for acute cholecystitis. Unremarkable liver.
--- NOTE | 2016-07-06 08:39 | Hem/Onc Consultation ---
History of Present Illness - Reason for Consult Consult date: 07/06/16 - History of Present Illness Will dictate for note. INR coming down. Today it is less than 1.7. If surgery needed, continue to hold Coumadin. Hematology wilson okay for surgery if INR less than 1.6 Past History Past Medical History: dialysis, ESRD, hypertension, other (history of HIT) Past Surgical History: Other (history of creation of AV fistula) Social history: smoking Family history: no significant family history Medications and Allergies Allergies Allergy/AdvReac Type Severity Reaction Status Date / Time heparin Allergy lowers Verified 04/03/14 09:39 platelets Home Medications Medication Instructions Recorded Confirmed Last Taken Type Carvedilol [Coreg] 12.5 mg PO BID 07/01/16 07/01/16 Unknown History Clonidine HCl [Catapres] 0.3 mg PO TID 07/01/16 07/01/16 Unknown History Cyclobenzaprine [Flexeril] 5 mg PO BID 07/01/16 07/01/16 Unknown History Ergocalciferol [Vitamin D2] 1 cap PO QWEEK 07/01/16 07/01/16 Unknown History Esomeprazole Magnesium 40 mg PO QDAY 07/01/16 07/01/16 Unknown History Ferric Citrate (Nf) [Auryxia (Nf)] 210 mg PO TID 07/01/16 07/01/16 Unknown History Furosemide [Lasix TAB] 80 mg PO QDAY 07/01/16 07/01/16 Unknown History Gabapentin [Neurontin] 100 mg PO QHS 07/01/16 07/01/16 Unknown History Lisinopril [Zestril TAB] 40 mg PO QDAY 07/01/16 07/01/16 Unknown History NIFEdipine XL [Procardia Xl] 90 mg PO QDAY 07/01/16 07/01/16 Unknown History Ondansetron [Zofran TAB] 4 mg PO TID PRN 07/01/16 07/01/16 Unknown History Sertraline HCl [Zoloft] 50 mg PO QHS 07/01/16 07/01/16 Unknown History Vitamin B Comp and C/FA/Zn Cit 0.8 mg PO QDAY 07/01/16 07/01/16 Unknown History [Dialyvite 800-Zinc 15 Tab] Warfarin [Coumadin] 2 mg PO QDAY 07/01/16 07/01/16 Unknown History traZODone [Desyrel] 50 mg PO QHS PRN 07/01/16 07/01/16 Unknown History Active Meds: Active Medications Acetaminophen (Tylenol) 650 mg PO Q4H PRN PRN Reason: Pain MILD(1-3)/Fever >100.5/JENKINS Dextrose (D50w (25gm)) 25 ml IV PRN PRN PRN Reason: Hypoglycemia Last Admin: 07/05/16 23:18 Dose: 25 ml Epoetin Davis (Procrit) 10,000 unit IV APRIL PRN PRN Reason: hemodialysis Last Admin: 07/03/16 15:00 Dose: 10,000 unit Levofloxacin/Dextrose (Levaquin 250mg/50ml) 250 mg in 50 mls @ 50 mls/hr IV Q48HR CHONG Last Admin: 07/04/16 09:47 Dose: 50 mls/hr Dextrose (D10w) 1,000 mls @ 30 mls/hr IV DIRECT CHONG Last Admin: 07/05/16 23:18 Dose: 30 mls/hr Sodium Chloride (Nacl 0.9%) 100 mls @ 999 mls/hr IV APRIL PRN PRN Reason: Hypotension Morphine Sulfate (Morphine) 1 mg IV Q4H PRN PRN Reason: Pain , Severe (7-10) Last Admin: 07/06/16 06:18 Dose: 1 mg Ondansetron HCl (Zofran) 4 mg IV Q8H PRN PRN Reason: Nausea And Vomiting Last Admin: 07/04/16 09:49 Dose: 4 mg Exam - Constitutional Vitals: Last Vital Signs Temp 97.5 F L 07/06/16 07:20 Pulse 70 07/06/16 07:20 Resp 18 07/06/16 07:20 BP 120/85 07/06/16 07:20 Pulse Ox 99 07/06/16 07:20 Results - Labs lab Results: Laboratory Results - last 24 hr 07/06/16 07/06/16 07/06/16 06:46 06:46 06:46 PT 19.9 H INR 1.69 H Sodium 134 L Potassium 4.3 Chloride 92.7 L Carbon Dioxide 24 Anion Gap 22 BUN 29 H Creatinine 8.9 H Estimated GFR 7 BUN/Creatinine Ratio 3.25 Glucose 58 L Calcium 8.6 Ferritin 892.6 H
--- NOTE | 2016-07-06 09:08 | Consultation ---
REFERRING PHYSICIAN: REASON FOR CONSULTATION: Elevated INR. HISTORY OF PRESENT ILLNESS: The patient is a 26-year-old male with end-stage renal disease on dialysis admitted with abdominal pain, which was sharp radiating to the back. He recently at [facility] and had abdominal fluid drained from his peritoneal cavity. During his hospital course, he was found to have small-bowel obstruction. He is currently n.p.o. The patient has been on Coumadin for heparin-induced thrombocytopenia, which has been put on hold. His INR on admission was 2.21, which came down to 1.19, but in spite of holding Coumadin it went up to 3.20 on 07/04/2016. Hematology consult was called. It has come down since then to 1.69 today. The patient started to have bowel movement. He is very hungry and wants to eat. PAST MEDICAL HISTORY: Positive for end-stage kidney disease on hemodialysis. He also is on Coumadin for heparin-induced thrombocytopenia and frequent clotting of his vascular access. PHYSICAL EXAMINATION: GENERAL: The patient is awake and oriented, very hungry. HEENT: Unremarkable. CHEST: Clear. CARDIOVASCULAR: Regular rate and rhythm. ABDOMEN: Soft. No organomegaly is noted. EXTREMITIES: He has no clubbing, cyanosis, or edema. LABORATORY DATA: Today shows INR of 1.69. CBC from 07/03/2016, hemoglobin of 9.5, white count 5.7, and platelets 142,000. ASSESSMENT: Heparin-induced thrombocytopenia currently being evaluated possible need for surgery with elevated INR. PLAN: At this time, the patient did have upward trend in the INR, which could be related to his ongoing nausea and vomiting, but that seems to have improved. At this point, continue to hold Coumadin if surgery is anticipated. Once INR is about 1.6, he should be ready to go for surgery. JOB# [id number] LINAS/NTS
--- NOTE | 2016-07-06 09:37 | Progress Note ---
Assessment and Plan End-stage renal disease patient is currently on maintenance hemodialysis Tuesday schedule Patient seems to be more stable today dialysis prescription was changed Has had ascites which was tapped avoid minoxidil Status post hematology evaluation for anticoagulation need in the setting of heparin-induced thrombocytopenia Patient has a history of chronic noncompliance Hypotension appears to be better today Continue with supportive care Counseling and education was done Surgery to give opinion today Subjective Interval history: Patient was seen today on hemodialysis currently doing well blood pressure is more stable. Patient wants to know if there is any plan for surgery at this time. patient did pass gas today, denies any severe abdominal pain access is working well for dialysis Objective - Vital Signs Vital signs: Vital Signs - 12hr 07/06/16 07/06/16 00:09 07:20 Temperature 97.5 F L 97.5 F L Pulse Rate [ 70 Left] Pulse Rate [ 58 L Right Brachial] Respiratory 18 18 Rate Blood Pressure 100/66 120/85 [Left Arm] O2 Sat by Pulse 96 99 Oximetry - General Appearance General appearance: appears stated age EENT: mucous membranes moist Neck: no JVD Respiratory: Present: Clear to Ascultation Cardiology: regular, S1S2 Gastrointestinal: other (soft nontender bowel sounds hypoactive) Neurologic: alert and oriented x3 Psychiatric: mood/affect appropriate - Lab 07/04/16 08:34 07/06/16 06:46 Most recent lab results Calcium 8.6 mg/dL (8.4-10.2) 07/06/16 06:46
--- NOTE | 2016-07-06 10:09 | Progress Note ---
Assessment and Plan Assessment: SBO - resolving. ESRD, on HD Anemia H/o HTN - with recent hypotension now improved. H/o HIT Plan: Currently stable cardiac status. Pt is at low to moderate risk for cardiovascular complications for surgical intervention of SBO. There are no immediate cardiac contraindications to proceeding with procedure at this time. Assessment and plan reviewed with pt at bedside. Will see PRN. The patient has been seen in conjunction with Dr. Mcgovern who agrees with the assessment and plan of care. Subjective Date of service: 07/06/16 Principal diagnosis: SBO Interval history: pt seen in HD, no complaints. States he had another BM yesterday. VSS. Objective Last Vital Signs Temp 97.5 F L 07/06/16 07:20 Pulse 70 07/06/16 07:20 Resp 18 07/06/16 07:20 BP 120/85 07/06/16 07:20 Pulse Ox 99 07/06/16 07:20 - Physical Examination General: Appears Well, No Apparent Distress HEENT: Positive: PERRL, Normocephaly, Mucus Membranes Moist Neck: Positive: neck supple, trachea midline Cardiac: Positive: Reg Rate and Rhythm, S1/S2 Lungs: Positive: Normal Exam, clear to auscultation, Normal Breath Sounds Neuro: Positive: Grossly Intact, Cranial Nerve 2-12 Intact Abdomen: Positive: Unremarkable, Soft, Active Bowel Sounds. Negative: Tender Skin: Positive: Clear. Negative: Rash, Wound Musculoskeletal: No Fluid Collection, No Pain, Normal Range of Motion Extremities: Present: upper extr. pulses, lower extr. pulses. Absent: edema - Labs and Meds Coagulation 07/06/16 Range/Units 06:46 PT 19.9 H (12.2-14.9) Sec. INR 1.69 H (0.87-1.13) Comprehensive Metabolic Panel 07/06/16 Range/Units 06:46 Sodium 134 L (137-145) mmol/L Potassium 4.3 (3.6-5.0) mmol/L Chloride 92.7 L (98-107) mmol/L Carbon Dioxide 24 (22-30) mmol/L BUN 29 H (9-20) mg/dL Creatinine 8.9 H (0.8-1.5) mg/dL Glucose 58 L (75-100) mg/dL Calcium 8.6 (8.4-10.2) mg/dL - Imaging and Cardiology EKG: report reviewed Echo: report reviewed (06/2016: EF 60 - 65%, mild LVH, impaired relaxation, mild MR, trace TR, minimal pericardial effusion, moderate pleural effusion) - Telemetry EKG Rhythm: Sinus Rhythm - EKG Sinus rhythms and dysrhythmias: sinus rhythm
--- NOTE | 2016-07-06 11:57 | Event Note ---
Date: 07/06/16 VSS AF, tolerated NG out, abd soft, labs noted , WBC OK, will adv to clear liquid diet and see how he tolerates it. Coumadin on hold for now.
[2016-07-06] MEDS: LEVAQUIN 250MG/50ML 250 MG/50 ML BAG IV SCH (14:05)
--- NOTE | 2016-07-06 14:50 | Gastroenterology Progress Note ---
Assessment and Plan Liver: pt w/ ascites w/ ultrasound/doppler benign - doubt underlying liver disease - lab workup benign - no changes from GI standpoint and ok to d/c when stable per surgery - follow up outpt, call if needed Subjective Date of service: 07/06/16 Principal diagnosis: SBO Interval history: - no GI complaints at this time. Tolerating clear liquid Objective - Constitutional Vitals: Temp Pulse Resp BP Pulse Ox 97.2 F L 63 20 121/68 99 07/06/16 09:55 07/06/16 13:45 07/06/16 09:55 07/06/16 13:45 07/06/16 07:20 General appearance: no acute distress - Respiratory Respiratory: bilateral: CTA - Cardiovascular Rhythm: regular Heart Sounds: Present: S1 & S2 - Gastrointestinal General gastrointestinal: Present: soft, non-tender, non-distended - Labs CBC & Chem 7: 07/04/16 08:34 07/06/16 06:46 Labs: Laboratory Results - last 24 hr 07/06/16 07/06/16 07/06/16 06:46 06:46 06:46 PT 19.9 H INR 1.69 H Sodium 134 L Potassium 4.3 Chloride 92.7 L Carbon Dioxide 24 Anion Gap 22 BUN 29 H Creatinine 8.9 H Estimated GFR 7 BUN/Creatinine Ratio 3.25 Glucose 58 L Calcium 8.6 Ferritin 892.6 H
--- NOTE | 2016-07-06 16:21 | Hem/Onc Progress Note ---
Assessment and Plan - Patient Problems (1) SBO (small bowel obstruction) Current Visit: Yes Status: Acute Plan to address problem: Plan is for surgery to understand etiology of symptoms. he needs outpatient follow up. he was educated about importance including his parent who is in room. Risk of morbidity and mortality associated with not compiling with follow up request stressed. he has been non compliant with follow up in past. Subjective Date of service: 07/06/16 Interval history: Had episode of ascites, unexplained and it was drained. He feels well overall. Taken off coumadin for surgery. Objective - Constitutional Vitals: Last Vital Signs Temp 97.8 F 07/06/16 15:25 Pulse 91 H 07/06/16 15:25 Resp 18 07/06/16 15:25 BP 111/77 07/06/16 15:25 Pulse Ox 99 07/06/16 07:20 Pain Intensity (0-10): denies any pain - EENT ENT: hearing intact - Respiratory Respiratory effort: Positive: normal Respiratory: bilateral: CTA - Cardiovascular Rhythm: regular - Labs Lab Results: Laboratory Results - last 24 hr 07/06/16 07/06/16 07/06/16 06:46 06:46 06:46 PT 19.9 H INR 1.69 H Sodium 134 L Potassium 4.3 Chloride 92.7 L Carbon Dioxide 24 Anion Gap 22 BUN 29 H Creatinine 8.9 H Estimated GFR 7 BUN/Creatinine Ratio 3.25 Glucose 58 L Calcium 8.6 Ferritin 892.6 H
[2016-07-07] MEDS: MORPHINE IV PRN ×2 (01:00→06:10)
--- NOTE | 2016-07-07 07:19 | Event Note ---
Date: 07/07/16 VSS AF, tolerated liquid, will advance to renal diet, d/c iv narcotics, OK to discharge home if he tolerates his diet. I have explained in detail to patient and family that close follow up is important, no role for narcotics.
[2016-07-07 07:43] LABS: BUN/Creatinine Ratio 2.69; Calcium 8.2 mg/dL (8.4-10.2); Chloride 96.2 mmol/L (98-107); Potassium 4.8 mmol/L (3.6-5.0)
--- NOTE | 2016-07-07 08:32 | Discharge Summary ---
Providers - Providers Date of Admission: 07/01/16 05:44 Attending physician: SRINIVAS CAI MD 07/03/16 09:22 Consult to Dietitian/Nutrition [CONS] Routine Physician Instructions: Reason For Exam: Reason for Consult: Malnutrition 07/04/16 11:19 Consult to Physician [CONS] Routine Consulting Provider: [facility] Reason For Exam: Ascites Place consult to:: GI Notified:: office Phone number called:: [phone] Was contact made?: Yes If yes, spoke with:: amalia Carreon called:: 10:11 07/04/16 11:21 Consult to Physician [CONS] Routine Consulting Provider: JUSTIN FLEMING Reason For Exam: Pre op evaluation Place consult to:: [email or web address] Notified:: yes Phone number called:: overhead Was contact made?: Yes If yes, spoke with:: aydin middleton Time called:: 08:58 07/04/16 11:22 Consult to Physician [CONS] Routine Consulting Provider: CARMEN WELLS Reason For Exam: history of HIT, SBO Place consult to:: onc Notified:: yes Was contact made?: Yes Time called:: 09:27 Comment:: spoke with ambar @ office/ pt. 07/04/16 14:20 Consult to Physician [CONS] Routine Consulting Provider: SARAH REDDY Reason For Exam: elevated INR Place consult to:: onco Notified:: office Phone number called:: [phone] Was contact made?: Yes If yes, spoke with:: ambar Time called:: 09:27 Comment:: pt./will notify Primary care physician: STAFFING AND SCHEDULING COORDINATOR Hospitalization Condition: Fair Hospital course: 26-year-old man with a history of end-stage renal disease on dialysis Tuesday with poor compliance with hemodialysis, hypertension comes emergency room , sp recent large volume paracentesis at (5.5L) with complaints of abdominal pain 1 week. found to have SBO, likely 2/2 abdominal adhesions 1. SBO History of peritoneal dialysis and removal of catheter due to peritonitis last year, so possible SBO due to adhesions improved, NG tube DC yesterday, start clear liquid diet Plan is conservative management, advance diet, then dc home Dr Lanza (surgery) input appreciated As per cardiology patient is optimized if surgery is needed in the near future 2. ESRD on HD HD per nephrology 3. Moderate Manutrition Albumin 2.7 Encourage balanced diet when patient able to tolerate by mouth 6. H/o HIT Currently platelets within normal limits -coumadin on hold as patient may need surgery current INR is 1.6 7. Hypotension - continue midodrine Disposition: DISCHARGED TO HOME OR SELFCARE Time spent for discharge: 35 minutes Core Measure Documentation - Palliative Care Palliative Care/ Comfort Measures: Not Applicable - Core Measures Any of the following diagnoses?: none Exam - Constitutional Vitals: Temp Pulse Resp BP Pulse Ox 97.8 F 68 18 111/73 98 07/06/16 20:59 07/07/16 01:00 07/07/16 06:40 07/07/16 01:00 07/06/16 20:59 General appearance: Present: no acute distress, cachectic - EENT Eyes: Present: PERRL ENT: hearing intact, clear oral mucosa - Neck Neck: Present: supple, normal ROM - Respiratory Respiratory effort: normal Respiratory: bilateral: CTA - Cardiovascular Heart Sounds: Present: S1 & S2. Absent: rub, click - Extremities Extremities: pulses symmetrical, No edema Peripheral Pulses: within normal limits - Abdominal General gastrointestinal: Present: soft, non-tender, non-distended, normal bowel sounds Male genitourinary: Present: normal - Integumentary Integumentary: Present: clear, warm, dry - Musculoskeletal Musculoskeletal: gait normal, strength equal bilaterally - Psychiatric Psychiatric: appropriate mood/affect, intact judgment & insight - Neurologic Neurologic: CNII-XII intact, moves all extremities Plan Follow up with: PRIMARY CARE, [Primary Care Provider] - 3-5 Days
[2016-07-07 08:37] VITALS: BP 142/90
--- NOTE | 2016-07-07 15:39 | Progress Note ---
Assessment and Plan End-stage renal disease patient is currently on maintenance hemodialysis he seems to be doing well on hemodialysis now Hypertension currently stable at this time Patient is overall doing much better from a GI standpoint his appetite is slowly improving NG tube is out Advised the patient to ambulate if possible He will need to follow up with his twitchell operator as well as general surgery Patient was advised to return back to this clinic for his hemodialysis He has long-term history of noncompliance at this time have advised him not to use minoxidil If needed he will need to follow up with [facility]- We'll continue to follow and make recommendation from renal standpoint Subjective Principal diagnosis: SBO Interval history: seen today around 9:45 in the morning,for follow-up doing much better appetite improving wants to go home Hemodialysis well tolerated events of 24 hours noted Objective - Vital Signs Vital signs: Vital Signs - 12hr 07/07/16 07/07/16 07/07/16 06:10 06:40 08:00 Temperature 97.7 F Pulse Rate [ 80 Right Brachial] Respiratory 20 18 18 Rate Blood Pressure 142/90 [Left Arm] O2 Sat by Pulse 98 Oximetry - General Appearance General appearance: appears stated age EENT: mucous membranes moist Neck: no JVD Respiratory: Present: Clear to Ascultation Cardiology: regular - Lab 07/04/16 08:34 07/07/16 06:31 Most recent lab results Calcium 8.2 mg/dL (8.4-10.2) L 07/07/16 06:31
[2016-07-08] MEDS ORDERED: LEVAQUIN PO SCH (10:00)
== END 2016-07-07 13:30 | disposition home or self-care (01) | DRG 388 ==
LOC: ED 19:37 → 3A 07-01 05:44 → 2B-SURG 07-01 08:56
PROVIDERS: ADMIT Internal Medicine; ATTEND Internal Medicine
PROC: 5A1D60Z (ICD-10-PCS; principal; 2016-07-06)
DX: K56.69 Other intestinal obstruction (principal); N18.6 End stage renal disease; J18.9 Pneumonia, unspecified organism; I30.9 Acute pericarditis, unspecified; R18.8 Other ascites; J90 Pleural effusion, not elsewhere classified; E44.0 Moderate protein-calorie malnutrition; I12.0 Hypertensive chronic kidney disease with stage 5 chronic kidney disease or end stage renal disease; K21.9 Gastro-esophageal reflux disease without esophagitis; F17.210 Nicotine dependence, cigarettes, uncomplicated; E16.2 Hypoglycemia, unspecified; E87.5 Hyperkalemia; D63.1 Anemia in chronic kidney disease; D69.6 Thrombocytopenia, unspecified; Z68.20 Body mass index [BMI] 20.0-20.9, adult; Z99.2 Dependence on renal dialysis; Z79.01 Long term (current) use of anticoagulants; Z79.899 Other long term (current) drug therapy; Z88.8 Allergy status to other drugs, medicaments and biological substances; Z82.49 Family history of ischemic heart disease and other diseases of the circulatory system
CPT/HCPCS: 36415; 74000; 74177; 74250; 76705; 80048; 80053; 82533; 82728; 82947; 82962; 83690; 85007; 85025; 85027; 85610; 85730; 93005; 93010; 93306; 94760; 96365; 96375; 96376; J0885; J1956; J2270; J2405; J3010; J3480; J7030; J7042; P9047; Q9963; Q9967

== ENCOUNTER 2016-07-26 14:28 | Emergency (ER) | payer MEDICARE | END 2016-07-26 14:29 | disposition left against medical advice (07) | LOC: ED 14:28 | DX: R10.9 Unspecified abdominal pain (principal); Z53.21 Procedure and treatment not carried out due to patient leaving prior to being seen by health care provider ==

== ENCOUNTER 2016-10-30 00:08 | Emergency (ER) | payer MEDICARE ==
[2016-10-30 01:33] LABS: Albumin 3.6 g/dL (3.9-5); Albumin/Globulin Ratio 0.8 %; BUN/Creatinine Ratio 6.4; Bilirubin,Total 0.3 mg/dL (0.1-1.2); Calcium 9.6 mg/dL (8.4-10.2); Chloride 90.4 mmol/L (98-107); Potassium 4.2 mmol/L (3.6-5.0)
[2016-10-30] MEDS ORDERED: MORPHINE IV ONE (03:50)
[2016-10-30] MEDS ORDERED: BENADRYL IV ONE (03:50)
[2016-10-30] MEDS ORDERED: ZOFRAN IV ONE (03:50)
--- NOTE | 2016-10-30 03:55 | Emergency Department Report ---
ED Abdominal Pain HPI - General Chief Complaint: Abdominal Pain Stated Complaint: ABD PAIN Time Seen by Provider: 10/30/16 03:41 Source: patient Mode of arrival: Ambulatory Limitations: No Limitations - History of Present Illness Initial Comments: 26 years old male on dialysis presented Today with a lower abdominal and pain. He stated that his pain is being going on for more than 6 months he's been evaluated recently at [facility] found that he has ascites. Patient denied any fever nausea or vomiting no diarrhea. MD Complaint: abdominal pain -: Gradual, week(s) Location: suprapubic Migration to: no migration Severity scale (0 -10): 5 - Related Data Home Medications Medication Instructions Recorded Confirmed Last Taken Warfarin [Coumadin] 2 mg PO QDAY 07/01/16 10/30/16 10/29/16 Allergies Allergy/AdvReac Type Severity Reaction Status Date / Time heparin Allergy lowers Verified 04/03/14 09:39 platelets ED Review of Systems ROS: Stated complaint: ABD PAIN Other details as noted in HPI Comment: All other systems reviewed and negative Constitutional: denies: chills, fever Respiratory: denies: cough, SOB with exertion Cardiovascular: denies: chest pain, palpitations Endocrine: denies: excessive sweating Gastrointestinal: denies: nausea Neurological: denies: headache ED Past Medical Hx - Past Medical History Previous Medical History?: Yes Hx Hypertension: Yes (2012) Hx Congestive Heart Failure: No Hx Diabetes: No Hx GERD: Yes Hx Renal Disease: Yes (h/o PERITONEAL DIALYSIS, now HD) Hx COPD: No Additional medical history: Hidradenitis - Surgical History Past Surgical History?: No - Social History Smoking Status: Never Smoker Substance Use Type: None - Medications Home Medications: Home Medications Medication Instructions Recorded Confirmed Last Taken Type Warfarin [Coumadin] 2 mg PO QDAY 07/01/16 10/30/16 10/29/16 History ED Physical Exam - General Limitations: No Limitations General appearance: alert, in no apparent distress - Head Head exam: Present: atraumatic - Eye Eye exam: Present: normal appearance Pupils: Present: normal accommodation - ENT ENT exam: Present: normal exam - Neck Neck exam: Present: normal inspection - Respiratory Respiratory exam: Present: normal lung sounds bilaterally. Absent: respiratory distress, wheezes, rales, rhonchi, stridor, chest wall tenderness - Cardiovascular Cardiovascular Exam: Present: regular rate, normal rhythm, normal heart sounds - GI/Abdominal GI/Abdominal exam: Present: soft, tenderness. Absent: distended, guarding, rebound, rigid, normal bowel sounds, mass, bruit, pulsatile mass, hernia - Back Exam Back exam: Present: normal inspection - Neurological Exam Neurological exam: Present: alert, oriented X3, CN II-XII intact - Skin Skin exam: Present: warm, normal color ED Course Vital Signs 10/30/16 10/30/16 10/30/16 00:41 02:37 02:43 Temperature 98.0 F Pulse Rate 81 66 Respiratory 16 18 Rate Blood Pressure 195/129 Blood Pressure 201/106 [Right] O2 Sat by Pulse 100 98 98 Oximetry 10/30/16 10/30/16 10/30/16 02:46 03:00 03:16 Temperature Pulse Rate Respiratory Rate Blood Pressure 201/108 196/116 196/116 Blood Pressure [Right] O2 Sat by Pulse 99 100 99 Oximetry 10/30/16 10/30/16 10/30/16 03:30 03:46 04:00 Temperature Pulse Rate Respiratory Rate Blood Pressure 191/121 191/121 205/121 Blood Pressure [Right] O2 Sat by Pulse 98 98 100 Oximetry 10/30/16 10/30/16 10/30/16 04:16 04:30 04:46 Temperature Pulse Rate Respiratory Rate Blood Pressure 205/121 205/121 191/108 Blood Pressure [Right] O2 Sat by Pulse 98 98 99 Oximetry 10/30/16 04:56 Temperature Pulse Rate 71 Respiratory Rate Blood Pressure Blood Pressure [Right] O2 Sat by Pulse Oximetry - Reevaluation(s) Reevaluation #1: 10/30/16 05:[address] John Sun general production manager for admission. Advised to start the patient on Cardene drip to control her blood pressure and he will do dialysis in the morning. Discussed with Dr. Bridgette Salgado for admission ED Medical Decision Making - Lab Data Result diagrams: 10/30/16 00:55 Critical care attestation.: If time is entered above; I have spent that time in minutes in the direct care of this critically ill patient, excluding procedure time. ED Disposition Clinical Impression: Malignant hypertension, Volume overload Disposition: OP ADMIT IP TO THIS HOSP Is pt being admited?: Yes Condition: Stable Instructions: Hypertension (ED) Referrals: PRIMARY CARE, [Primary Care Provider] - 3-5 Days
[2016-10-30 04:55] VITALS: BP 191/108
[2016-10-30] MEDS ORDERED: CARDENE 50 MG in NACL 0.9% 250ML 230 ML IV SCH (06:00)
--- NOTE | 2016-10-30 09:32 | XRay Report ---
AP CHEST : 10/30/16 03:50 CLINICAL: Chest pain. COMPARISON:None FINDINGS: Normal heart and pulmonary vessels. The lungs are normally expanded and clear. The bones and soft tissues are unremarkable. IMPRESSION: Normal chest.
== END 2016-10-30 05:47 | disposition left against medical advice (07) ==
LOC: ED 00:08
DX: I10 Essential (primary) hypertension (principal); E87.70 Fluid overload, unspecified; K21.9 Gastro-esophageal reflux disease without esophagitis; Z88.8 Allergy status to other drugs, medicaments and biological substances
CPT/HCPCS: 71010; 80053; 82150; 83690; 96374; 96375; 99284; J1200; J2270; J2405; 36415; J7050

== ENCOUNTER 2016-11-04 14:43 | Emergency (ER) | payer MEDICARE ==
[2016-11-04 15:41] LABS: Eosinophils % (Auto) 2.7 % (0.0-4.3); Hematocrit 29.9 % (35.5-45.6); Mean Corpuscular HGB Conc 33 % (32-34); Mean Corpuscular Hemoglobin 28 pg (28-32); Mean Corpuscular Volume 84 fl (84-94); Platelet Count 219 K/mm3 (140-440); Red Blood Count 3.57 M/mm3 (3.65-5.03); Red Cell Distribution Width 18.9 % (13.2-15.2); White Blood Count 6.7 K/mm3 (4.5-11.0)
[2016-11-04 16:04] LABS: Albumin 3.6 g/dL (3.9-5); Albumin/Globulin Ratio 1.1 %; BUN/Creatinine Ratio 6.12; Bilirubin,Total 0.3 mg/dL (0.1-1.2); Calcium 9.3 mg/dL (8.4-10.2)
[2016-11-04 16:05] LABS: Chloride 91.5 mmol/L (98-107); Potassium 5.1 mmol/L (3.6-5.0)
[2016-11-04] MEDS ORDERED: PERCOCET 5/325 PO ONE (18:09)
[2016-11-04 20:01] VITALS: BP 128/80
--- NOTE | 2016-11-04 20:01 | Emergency Department Report ---
HPI - General Chief Complaint: Abdominal Pain Time Seen by Provider: 11/04/16 18:08 - HPI HPI: Patient states history of chronic abdominal pain secondary to ascites. States that today he started having 7 out of 10 abdominal cramping with nausea but no vomiting or diarrhea. Patient stated he ran out of his usual pain medication so he came to the ED. Patient denies any fever or chills night sweat. Patient is a history of end-stage renal disease on hemodialysis. ED Past Medical Hx - Past Medical History Hx Hypertension: Yes (2012) Hx Congestive Heart Failure: No Hx Diabetes: No Hx GERD: Yes Hx Renal Disease: Yes (h/o PERITONEAL DIALYSIS, now HD ( / / Tue)) Hx COPD: No Additional medical history: Hidradenitis - Surgical History Additional Surgical History: PD CATHETER - AND REMOVAL. AV FISTULA. LYMPH NODES REMOVED LEFT GROIN. TONSILLECTOMY - Social History Smoking Status: Never Smoker Substance Use Type: None - Medications Home Medications: Home Medications Medication Instructions Recorded Confirmed Last Taken Type Warfarin [Coumadin] 2 mg PO QDAY 07/01/16 10/30/16 10/29/16 History Dicyclomine [Bentyl] 20 mg PO QID PRN #30 tablet 11/04/16 Unknown Rx ED Review of Systems ROS: Stated complaint: ABD PAIN Other details as noted in HPI Comment: All other systems reviewed and negative Endocrine: no symptoms reported Gastrointestinal: abdominal pain, nausea Physical Exam - Physical Exam Vital Signs: Vital Signs 11/04/16 11/04/16 15:01 18:00 Temperature 97.7 F 98.0 F Pulse Rate 64 63 Respiratory 18 16 Rate Blood Pressure 138/96 Blood Pressure 146/68 [Left] O2 Sat by Pulse 98 86 Oximetry Physical Exam: GENERAL: The patient is well-developed well-nourished. HEENT: Normocephalic. Atraumatic. Extraocular motions are intact. Patient has moist mucous membranes. NECK: Supple. No meningitic signs are noted. There is no adenopathy noted. CHEST/LUNGS: Clear to auscultation. There is no respiratory distress noted. HEART/CARDIOVASCULAR: Regular. There is no tachycardia. There is no gallop rub or murmur. ABDOMEN: Abdomen is soft, nontender. Patient has normal bowel sounds. There is no abdominal distention. SKIN: There is no rash. There is no edema. There is no diaphoresis. NEURO: The patient is awake, alert, and oriented. The patient is cooperative. The patient has no focal neurologic deficits. The patient has normal speech and gait. Cranial nerves II through XII grossly intact, no drift. Negative Romberg MUSCULOSKELETAL: good range of motion, in all ext. ED Course Vital Signs 11/04/16 11/04/16 15:01 18:00 Temperature 97.7 F 98.0 F Pulse Rate 64 63 Respiratory 18 16 Rate Blood Pressure 138/96 Blood Pressure 146/68 [Left] O2 Sat by Pulse 98 86 Oximetry ED Medical Decision Making - Lab Data Result diagrams: 11/04/16 15:12 11/04/16 15:12 Critical care attestation.: If time is entered above; I have spent that time in minutes in the direct care of this critically ill patient, excluding procedure time. ED Disposition Clinical Impression: Abdominal pain Qualifiers: Abdominal location: generalized Qualified Code(s): R10.84 - Generalized abdominal pain Disposition: DC- TO HOME OR SELFCARE Is pt being admited?: No Does the pt Need Aspirin: No Condition: Stable Prescriptions: Dicyclomine [Bentyl] 20 mg PO QID PRN #30 tablet PRN Reason: Pain Referrals: PRIMARY CARE, [Primary Care Provider] - 3-5 Days
== END 2016-11-04 20:17 | disposition home or self-care (01) ==
LOC: ED 14:43
DX: R10.84 Generalized abdominal pain (principal); I12.0 Hypertensive chronic kidney disease with stage 5 chronic kidney disease or end stage renal disease; N18.6 End stage renal disease; K21.9 Gastro-esophageal reflux disease without esophagitis; Z79.01 Long term (current) use of anticoagulants; Z88.8 Allergy status to other drugs, medicaments and biological substances
CPT/HCPCS: 36415; 80053; 83690; 85025; 99283

== ENCOUNTER 2017-02-15 12:34 | Inpatient (IN) | payer MEDICARE ==
--- NOTE | 2017-02-15 13:46 | XRay Report ---
Chest 2 views. History: Shortness of breath. Findings: The heart and pulmonary vessels appear normal. There is suboptimal inspiration with minimal discoid atelectasis in the right lower lobe. No focal infiltrates are seen. There is no pleural fluid. The right hemidiaphragm is mildly elevated. Impression: Minimal right lower lobe discoid atelectasis.
[2017-02-15 13:56] LABS: Basophils % (Auto) 0.7 % (0.0-1.8); Eosinophils % (Auto) 0.3 % (0.0-4.3); Hematocrit 33.3 % (35.5-45.6); Hemoglobin 10.5 gm/dl (11.8-15.2); Mean Corpuscular HGB Conc 32 % (32-34); Mean Corpuscular Hemoglobin 27 pg (28-32); Mean Corpuscular Volume 86 fl (84-94); Platelet Count 331 K/mm3 (140-440); Red Blood Count 3.86 M/mm3 (3.65-5.03); Red Cell Distribution Width 16.3 % (13.2-15.2); White Blood Count 10.7 K/mm3 (4.5-11.0)
[2017-02-15 14:07] LABS: Albumin 3.6 g/dL (3.9-5); Albumin/Globulin Ratio 0.7 %; Alkaline Phosphatase 84 units/L (35-129); Anion Gap 35 mmol/L; BUN/Creatinine Ratio 6; Blood Urea Nitrogen 87 mg/dL (9-20); Calcium 9.6 mg/dL (8.4-10.2); Carbon Dioxide 30 mmol/L (22-30); Chloride 85.7 mmol/L (98-107); Glucose 81 mg/dL (75-100); Lipase 18 units/L (13-60); Sodium 144 mmol/L (137-145); Total Protein 8.7 g/dL (6.3-8.2)
[2017-02-15 14:12] LABS: Alanine Aminotransferase 9 units/L (7-56); Potassium 6.5 mmol/L (3.6-5.0)
[2017-02-15 16:23] LABS: INR 1.12 (0.87-1.13)
[2017-02-15] MEDS ORDERED: MORPHINE IV ONE (20:54)
[2017-02-15] MEDS ORDERED: ZOFRAN IV ONE (20:54)
--- NOTE | 2017-02-15 21:00 | Emergency Department Report ---
ED Abdominal Pain HPI - General Chief Complaint: Abdominal Pain Stated Complaint: DIFFICULTY BREATHING Time Seen by Provider: 02/15/17 20:08 Source: EMS Mode of arrival: Wheelchair Limitations: No Limitations - History of Present Illness Initial Comments: 27 yo male who comes in today due to abdominal pain times one week. He has a hx of chronic kidney disease for which he normally undergoes dialysis on Tuesday , , and Tuesday. He went to dialysis and was sent to the ED on today. He describes the pain as diffuse, 12/21, with associated nausea. MD Complaint: abdominal pain -: week(s) (One) Location: diffuse Radiation: none Severity: moderate Severity scale (0 -10): 10 Quality: cramping, aching Consistency: constant Improves With: nothing Worsens With: movement Context: other (dialysis/chronic kidney disease ) Associated Symptoms: nausea - Related Data Home Medications Medication Instructions Recorded Confirmed Last Taken Carvedilol 12.5 mg PO BID 02/15/17 02/15/17 Unknown Clonidine 0.3 mg PO TID 02/15/17 02/15/17 Unknown Colace CAP 100 mg PO QDAY 02/15/17 02/15/17 Unknown Dialyvite 800-Zinc 15 mg Tab 800 mg PO QDAY 02/15/17 02/15/17 Unknown Flexeril 10 MG TAB 10 mg PO QHS 02/15/17 02/15/17 Unknown Lisinopril 40 mg PO QDAY 02/15/17 02/15/17 Unknown Losartan Potassium 100 mg PO QDAY 02/15/17 02/15/17 Unknown Nexium 40 mg PO QAM 02/15/17 02/15/17 Unknown Vitamin D3 2,000 unit 2,000 units PO QDAY 02/15/17 02/15/17 Unknown Zofran TAB 4 mg PO PRN PRN MDD nausea 02/15/17 02/15/17 Unknown Zoloft 100 mg PO DAILY 02/15/17 02/15/17 Unknown hydrOXYzine 25 mg PO PRN PRN 02/15/17 02/15/17 Unknown traZODone 100 mg PO QPM 02/15/17 02/15/17 Unknown Allergies Allergy/AdvReac Type Severity Reaction Status Date / Time heparin Allergy lowers Verified 11/04/16 14:58 platelets ED Review of Systems ROS: Stated complaint: DIFFICULTY BREATHING Other details as noted in HPI Constitutional: denies: chills, fever Eyes: denies: eye pain, eye discharge, vision change ENT: denies: ear pain, throat pain Respiratory: shortness of breath Cardiovascular: denies: chest pain, palpitations Endocrine: no symptoms reported Gastrointestinal: as per HPI Genitourinary: denies: urgency, dysuria Musculoskeletal: denies: back pain, joint swelling, arthralgia Skin: denies: rash, lesions Neurological: denies: headache, weakness, paresthesias Psychiatric: denies: anxiety, depression Hematological/Lymphatic: denies: easy bleeding, easy bruising ED Past Medical Hx - Past Medical History Previous Medical History?: Yes Hx Hypertension: Yes (2012) Hx Congestive Heart Failure: No Hx Diabetes: No Hx GERD: Yes Hx Renal Disease: Yes (HD ( / / Tue)) Hx COPD: No Additional medical history: Hidradenitis - Surgical History Additional Surgical History: PD CATHETER - AND REMOVAL. AV FISTULA. LYMPH NODES REMOVED LEFT GROIN. TONSILLECTOMY - Social History Smoking Status: Never Smoker Substance Use Type: None - Medications Home Medications: Home Medications Medication Instructions Recorded Confirmed Last Taken Type Carvedilol 12.5 mg PO BID 02/15/17 02/15/17 Unknown History Clonidine 0.3 mg PO TID 02/15/17 02/15/17 Unknown History Colace CAP 100 mg PO QDAY 02/15/17 02/15/17 Unknown History Dialyvite 800-Zinc 15 mg Tab 800 mg PO QDAY 02/15/17 02/15/17 Unknown History Flexeril 10 MG TAB 10 mg PO QHS 02/15/17 02/15/17 Unknown History Lisinopril 40 mg PO QDAY 02/15/17 02/15/17 Unknown History Losartan Potassium 100 mg PO QDAY 02/15/17 02/15/17 Unknown History Nexium 40 mg PO QAM 02/15/17 02/15/17 Unknown History Vitamin D3 2,000 unit 2,000 units PO QDAY 02/15/17 02/15/17 Unknown History Zofran TAB 4 mg PO PRN PRN MDD nausea 02/15/17 02/15/17 Unknown History Zoloft 100 mg PO DAILY 02/15/17 02/15/17 Unknown History hydrOXYzine 25 mg PO PRN PRN 02/15/17 02/15/17 Unknown History traZODone 100 mg PO QPM 02/15/17 02/15/17 Unknown History ED Physical Exam - General Limitations: No Limitations General appearance: alert, in no apparent distress - Head Head exam: Present: atraumatic, normocephalic - Respiratory Respiratory exam: Present: normal lung sounds bilaterally. Absent: respiratory distress - Cardiovascular Cardiovascular Exam: Present: regular rate, normal rhythm - GI/Abdominal GI/Abdominal exam: Present: distended, tenderness (diffusely ), hypoactive bowel sounds - Rectal Rectal exam: Present: deferred - Extremities Exam Extremities exam: Present: normal inspection - Back Exam Back exam: Present: normal inspection - Neurological Exam Neurological exam: Present: oriented X3 - Psychiatric Psychiatric exam: Present: agitated - Skin Skin exam: Present: warm, dry, intact, normal color. Absent: rash ED Course Vital Signs 02/15/17 02/15/17 02/15/17 12:35 16:00 16:30 Temperature 97.4 F L Pulse Rate 79 71 77 Respiratory 18 13 21 Rate Blood Pressure 118/81 140/99 148/103 O2 Sat by Pulse 98 97 96 Oximetry 02/15/17 02/15/17 02/15/17 16:45 17:00 17:15 Temperature Pulse Rate 74 68 74 Respiratory 26 H 25 H 25 H Rate Blood Pressure 140/99 153/103 153/103 O2 Sat by Pulse 97 95 96 Oximetry 02/15/17 02/15/17 02/15/17 19:00 19:15 19:30 Temperature Pulse Rate 64 71 66 Respiratory 21 19 20 Rate Blood Pressure 163/102 163/102 144/91 O2 Sat by Pulse 98 100 96 Oximetry 02/15/17 02/15/17 19:45 20:00 Temperature Pulse Rate 71 66 Respiratory 23 24 Rate Blood Pressure 144/91 166/109 O2 Sat by Pulse 96 98 Oximetry - Reevaluation(s) Reevaluation #1: 02/15/17 22:16 CT abdomen/pelvis revealed asites. Upon further inquiry, the patient is non- compliant with dialysis. Hospitalist to admit for IR paracentesis and dialysis. Patient is currently stable. ED Medical Decision Making - Lab Data Result diagrams: 02/15/17 13:31 02/15/17 15:55 - Radiology Data Radiology results: report reviewed (Ascites ) Critical care attestation.: If time is entered above; I have spent that time in minutes in the direct care of this critically ill patient, excluding procedure time. ED Disposition Clinical Impression: CKD (chronic kidney disease), Ascites Disposition: OP ADMIT IP TO THIS HOSP Is pt being admited?: Yes Does the pt Need Aspirin: No Condition: Stable Referrals: PRIMARY CARE, [Primary Care Provider] - 3-5 Days Time of Disposition: 22:19
--- NOTE | 2017-02-15 21:42 | Cat Scan Report ---
FINAL REPORT EXAM: CT ABDOMEN PELVIS WO CON HISTORY: abdominal pain/distention hx of chronic kidney ds TECHNIQUE: Standard unenhanced CT of the abdomen and pelvis. Coronal and sagittal reconstruction was also performed. PRIORS: CT a/P 07/01/2016 FINDINGS: There is a huge amount of ascites filling the abdomen and pelvis. This is displacing and compressing of the organs and bowel loops to the periphery or near the mesenteric root along midline. Further evaluation of these organs is difficult due to these factors. The kidneys appear to be atrophic bilaterally. Residual oral contrast in the colon is present. Images through the upper abdomen include the lung bases which demonstrates linear bibasilar atelectasis posteriorly. Bony structures show no focal abnormalities and are intact. IMPRESSION: Huge amount of ascites present throughout the abdomen and pelvis displacing and compressing the normal organs and its to the periphery or along the mesenteric root. Further evaluation of the normal anatomic structures is difficult due to these factors.
[2017-02-15] MEDS ORDERED: DULCOLAX PR PRN (23:41)
[2017-02-15] MEDS ORDERED: MILK OF MAGNESIA PO PRN (23:41)
[2017-02-15] MEDS ORDERED: TYLENOL PO PRN (23:41)
--- NOTE | 2017-02-15 23:43 | History and Physical Report ---
History of Present Illness Date of examination: 02/15/17 History of present illness: 27-year-old man with a history of end-stage renal disease on dialysis comes emergency room with complaints of abdominal pain . Pain is all over, described as a sharp, constant, no radiation, intensity 7/10, better with pain medications. Missed 5 days of dialysis., Complains of shortnerss of breath Review Of Systems: Constitutional: no weight loss Ears, eyes, nose, mouth and throat: no nasal congestion, no nasal discharge, no sinus pressure, blurry vision, diplopia Neck: No neck pain or rigidity. Cardiovascular:no chest pain, orthopnea, palpitations Respiratory: No cough Gastrointestinal: no hematochezia Genitourinary : no dysuria, frequency , hematuria Musculoskeletal: no muscle ache Integumentary: no rash, no pruritis Neurological: no parathesias, focal weakness Endocrine: no cold or heat intolerance, no polyuria or polydipsia Hematologic/Lymphatic: no easy bruising, no easy bleeding, no gland swelling Allergic/Immunologic: no urticaria, no angioedema. PAST MEDICAL HISTORY: end-stage renal disease on dialysis PAST SURGICAL HISTORY: AV fistula SOCIAL HISTORY: Smokes 3 cigars a day, no alcohol or drugs FAMILY HISTORY: Hypertension Medications and Allergies Allergies Allergy/AdvReac Type Severity Reaction Status Date / Time heparin Allergy lowers Verified 02/19/17 13:22 platelets Home Medications Medication Instructions Recorded Confirmed Last Taken Type Carvedilol 12.5 mg PO BID 02/15/17 02/15/17 Unknown History Clonidine 0.3 mg PO TID 02/15/17 02/15/17 Unknown History Colace CAP 100 mg PO QDAY 02/15/17 02/15/17 Unknown History Dialyvite 800-Zinc 15 mg Tab 800 mg PO QDAY 02/15/17 02/15/17 Unknown History Flexeril 10 MG TAB 10 mg PO QHS 02/15/17 02/15/17 Unknown History Losartan Potassium 100 mg PO QDAY 02/15/17 02/15/17 Unknown History Nexium 40 mg PO QAM 02/15/17 02/15/17 Unknown History Vitamin D3 2,000 unit 2,000 units PO QDAY 02/15/17 02/15/17 Unknown History Zofran TAB 4 mg PO PRN PRN MDD nausea 02/15/17 02/15/17 Unknown History Zoloft 100 mg PO DAILY 02/15/17 02/15/17 Unknown History hydrOXYzine 25 mg PO PRN PRN 02/15/17 02/15/17 Unknown History traZODone 100 mg PO QPM 02/15/17 02/15/17 Unknown History Exam - Physical Exam Narrative exam: Gen. appearance: Patient lying in bed, no apparent distress HEENT: Normocephalic, atraumatic, pupils equally round and reactive to light, extraocular movement intact, and no sclericterus,. No JVD or thyromegaly or nodule,neck supple, no carotid bruit ,mucous membranes moist, no exudate or erythema Heart: S1, S2, regular rate and rhythm Lungs: secrease breath sound at bases bilaterally, breathing comfortable Abdomen: Positive bowel sounds, tender in lower quadrants, nondistended, no organomegaly Extremity: No edema, cyanosis, clubbing Skin: No rash, nodules, warm, dry Neuro: Oriented 3, cranial nerves II-12 intact, speech is fluent, motor and sensory intact - Constitutional Vitals: Temp Pulse Resp BP Pulse Ox 97.4 F L 73 17 178/120 98 02/15/17 12:35 02/15/17 23:00 02/15/17 23:00 02/15/17 23:00 02/15/17 22:30 Results - Labs CBC & Chem 7: 02/18/17 05:50 02/18/17 05:50 Labs: Abnormal lab results 02/15/17 02/15/17 02/15/17 Range/Units 13:31 13:31 15:55 Hgb 10.5 L (11.8-15.2) gm/dl Hct 33.3 L (35.5-45.6) % MCH 27 L (28-32) pg RDW 16.3 H (13.2-15.2) % Seg Neutrophils % 77.4 H (40.0-70.0) % Seg Neutrophils # 8.3 H (1.8-7.7) K/mm3 PT 15.0 H (12.2-14.9) Sec. APTT 37.0 H (24.2-36.6) Sec. Potassium 6.5 H* (3.6-5.0) mmol/L Chloride 85.7 L (98-107) mmol/L BUN 87 H (9-20) mg/dL Creatinine 15.0 H (0.8-1.5) mg/dL NT-Pro-B Natriuret Pep > 66752 H (0-450) pg/mL Total Protein 8.7 H (6.3-8.2) g/dL Albumin 3.6 L (3.9-5) g/dL 02/15/17 Range/Units 15:55 Hgb (11.8-15.2) gm/dl Hct (35.5-45.6) % MCH (28-32) pg RDW (13.2-15.2) % Seg Neutrophils % (40.0-70.0) % Seg Neutrophils # (1.8-7.7) K/mm3 PT (12.2-14.9) Sec. APTT (24.2-36.6) Sec. Potassium 5.5 H (3.6-5.0) mmol/L Chloride (98-107) mmol/L BUN (9-20) mg/dL Creatinine (0.8-1.5) mg/dL NT-Pro-B Natriuret Pep (0-450) pg/mL Total Protein (6.3-8.2) g/dL Albumin (3.9-5) g/dL - Imaging and Cardiology CT scan - abdomen: report reviewed CT scan - pelvis: report reviewed Assessment and Plan Assessmernt Fluid overload End Stage renal disease on dialysis hyperkalemia Abdominal pain due to ascites Hypertension Admit to medicine Consult renal for dialysis, give kayexalate DVT prophylaxis
[2017-02-16] MEDS: MORPHINE IV PRN ×6 (00:02→21:09)
[2017-02-16] MEDS ORDERED: KIONEX PO ONE (01:03)
[2017-02-16] MEDS: APRESOLINE IV PRN ×3 (02:20→18:49)
[2017-02-16 06:40] LABS: Eosinophils % (Auto) 1.4 % (0.0-4.3); Hematocrit 30.8 % (35.5-45.6); Mean Corpuscular HGB Conc 33 % (32-34); Mean Corpuscular Hemoglobin 28 pg (28-32); Mean Corpuscular Volume 87 fl (84-94); Platelet Count 258 K/mm3 (140-440); Red Blood Count 3.56 M/mm3 (3.65-5.03); Red Cell Distribution Width 16.5 % (13.2-15.2); White Blood Count 7.8 K/mm3 (4.5-11.0)
[2017-02-16 06:58] LABS: Chloride 85.8 mmol/L (98-107); Potassium 5.1 mmol/L (3.6-5.0)
[2017-02-16] MEDS ORDERED: PROCRIT IV PRN (10:06)
[2017-02-16] MEDS ORDERED: NACL 0.9% 100 ML IV PRN (10:06)
--- NOTE | 2017-02-16 10:11 | Consultation ---
History of Present Illness - Reason for Consult Consult date: 02/16/17 end stage renal disease, hyperkalemia, accelerated hypertension Requesting physician: AMADO BOYKIN - History of Present Illness 27-year-old man with a history of end-stage renal disease on dialysis comes emergency room with complaints of abdominal pain . Pain is all over, described as a sharp, constant, no radiation, intensity 7/10, better with pain medications. Missed 5 days of dialysis., Complains of shortnerss of breath Review Of Systems: Constitutional: no weight loss Ears, eyes, nose, mouth and throat: no nasal congestion, no nasal discharge, no sinus pressure, blurry vision, diplopia Neck: No neck pain or rigidity. Cardiovascular:no chest pain, orthopnea, palpitations Respiratory: No shortness of breath, cough Gastrointestinal: no abdominal pain, hematochezia Genitourinary : no dysuria, frequency , hematuria Musculoskeletal: no muscle ache Integumentary: no rash, no pruritis Neurological: no parathesias, focal weakness Endocrine: no cold or heat intolerance, no polyuria or polydipsia Hematologic/Lymphatic: no easy bruising, no easy bleeding, no gland swelling Allergic/Immunologic: no urticaria, no angioedema. PAST MEDICAL HISTORY:hypertension PAST SURGICAL HISTORY: Left nephrectomy, hemorrhoidectomy, left knee FAMILY HISTORY: Hypertension SOCIAL HISTORY: Drinks 6 beers a day, no tobacco, drugs PAST MEDICAL HISTORY: end-stage renal disease on dialysis PAST SURGICAL HISTORY: AV fistula SOCIAL HISTORY: Smokes 3 cigars a day, no alcohol or drugs FAMILY HISTORY: Hypertension Medications and Allergies Allergies Allergy/AdvReac Type Severity Reaction Status Date / Time heparin Allergy lowers Verified 11/04/16 14:58 platelets Home Medications Medication Instructions Recorded Confirmed Last Taken Type Carvedilol 12.5 mg PO BID 02/15/17 02/15/17 Unknown History Clonidine 0.3 mg PO TID 02/15/17 02/15/17 Unknown History Colace CAP 100 mg PO QDAY 02/15/17 02/15/17 Unknown History Dialyvite 800-Zinc 15 mg Tab 800 mg PO QDAY 02/15/17 02/15/17 Unknown History Flexeril 10 MG TAB 10 mg PO QHS 02/15/17 02/15/17 Unknown History Lisinopril 40 mg PO QDAY 02/15/17 02/15/17 Unknown History Losartan Potassium 100 mg PO QDAY 02/15/17 02/15/17 Unknown History Nexium 40 mg PO QAM 02/15/17 02/15/17 Unknown History Vitamin D3 2,000 unit 2,000 units PO QDAY 02/15/17 02/15/17 Unknown History Zofran TAB 4 mg PO PRN PRN MDD nausea 02/15/17 02/15/17 Unknown History Zoloft 100 mg PO DAILY 02/15/17 02/15/17 Unknown History hydrOXYzine 25 mg PO PRN PRN 02/15/17 02/15/17 Unknown History traZODone 100 mg PO QPM 02/15/17 02/15/17 Unknown History Active Meds: Active Medications Acetaminophen (Tylenol) 650 mg PO Q4H PRN PRN Reason: Pain MILD(1-3)/Fever >100.5/JENKINS Bisacodyl (Dulcolax) 10 mg [place] QDAY PRN PRN Reason: Constipation unrelieved by MOM Hydralazine HCl (Apresoline) 5 mg IV Q6H PRN PRN Reason: Hypertension Last Admin: 02/16/17 08:33 Dose: 5 mg Magnesium Hydroxide (Milk Of Magnesia) 30 ml PO Q4H PRN PRN Reason: Constipation Morphine Sulfate (Morphine) 2 mg IV Q4H PRN PRN Reason: Pain, Moderate (4-6) Last Admin: 02/16/17 09:06 Dose: 2 mg Ondansetron HCl (Zofran) 4 mg IV Q8H PRN PRN Reason: N/V unrelieved by Reglan Exam - Vital Signs Vital signs: Vital Signs Temp Pulse Resp BP Pulse Ox 97.4 F L 79 18 118/81 98 02/15/17 12:35 02/15/17 12:35 02/15/17 12:35 02/15/17 12:35 02/15/17 12:35 - Physical Exam Narrative exam: Gen. appearance: Patient lying in bed, no apparent distress HEENT: Normocephalic, atraumatic, pupils equally round and reactive to light, extraocular movement intact, and no sclericterus,. No JVD or thyromegaly or nodule,neck supple, no carotid bruit ,mucous membranes moist, no exudate or erythema Heart: S1, S2, regular rate and rhythm Lungs: secrease breath sound at bases bilaterally, breathing comfortable Abdomen: Positive bowel sounds, tender in lower quadrants, nondistended, no organomegaly Extremity: No edema, cyanosis, clubbing Skin: No rash, nodules, warm, dry Neuro: Oriented 3, cranial nerves II-12 intact, speech is fluent, motor and sensory intact Results - Lab Results 02/16/17 06:16 02/16/17 06:16 Most recent lab results Calcium 9.0 mg/dL (8.4-10.2) 02/16/17 06:16 Assessment and Plan Impression: * ESRD * UREMIA * non compliance with dialysis * Fluid overload * hyperkalemia * Abdominal pain due to ascites * Hypertension Plan: * HD today and q MWF * strict i/o * uf as tolerated * low k bath with hd * stress compliance with hd * daily lytes * renal diet
[2017-02-16] MEDS ORDERED: NACL 0.9 (PRIMING MACHINE ONLY DIALYSIS) MC ONE (13:56)
[2017-02-16] MEDS: ZOFRAN IV PRN ×2 (14:10→18:49)
--- NOTE | 2017-02-16 14:26 | Progress Note ---
Assessment and Plan Assessment and plan: 7-year-old man with a history of end-stage renal disease on dialysis comes emergency room with complaints of abdominal pain and also recurrent ascities. Pain is all over, described as a sharp, constant, no radiation, intensity 7/10, better with pain medications. Missed 5 days of dialysis with no clear reason, Complains of shortness of breath Acute on chronic Respiratory failure Severe protein calorie malnutrition Hyperkalemia HTN ESRD Anemia of ESRD Hypoglycemia Cachexia Peritoneal irritation secondary to severe Ascetics Plan * Continue supportive care * Dialysis per Nephrology * K is improved * plan for paracentesis, therapeutic and diagnostic, Review records considering recurrent issue * Nebs and oxygen therapy * DVT.GI PROPHY * Discussed plan of care with patient in detail. * Plan discussed with the patient and he verbalized understanding History Interval history: Patient seen and examined in mild distress secondary to abdominal compression. He did have dialysis today with no complication noted, still with abdominal pain. Hospitalist Physical - Physical exam Narrative exam: Gen. appearance: Patient lying in bed, in mild discomfort, chronically ill appearing HEENT: Cachectic, Normocephalic, atraumatic, pupils equally round and reactive to light, extraocular movement intact, and no sclericterus,. No JVD or thyromegaly or nodule,neck supple, no carotid bruit ,mucous membranes moist, no exudate or erythema Heart: S1, S2, regular rate and rhythm Lungs: Decreased breath sound at bases bilaterally, breathing comfortable Abdomen: Positive bowel sounds, tender in lower quadrants, edematous abdomen, distended and protubrant, no organomegaly Extremity: No edema, cyanosis, clubbing Skin: No rash, nodules, warm, dry Neuro: Oriented 3, cranial nerves II-12 intact, speech is fluent, motor and sensory intact - Constitutional Vitals: Temp Pulse Resp BP Pulse Ox 97.6 F 75 18 184/123 97 02/16/17 08:11 02/16/17 08:33 02/16/17 08:11 02/16/17 08:33 02/16/17 08:11 Results - Labs CBC & Chem 7: 02/16/17 06:16 02/16/17 06:16 Labs: Laboratory Last Values WBC 7.8 K/mm3 (4.5-11.0) 02/16/17 06:16 RBC 3.56 M/mm3 (3.65-5.03) L 02/16/17 06:16 Hgb 10.0 gm/dl (11.8-15.2) L 02/16/17 06:16 Hct 30.8 % (35.5-45.6) L 02/16/17 06:16 MCV 87 fl (84-94) 02/16/17 06:16 MCH 28 pg (28-32) 02/16/17 06:16 MCHC 33 % (32-34) 02/16/17 06:16 RDW 16.5 % (13.2-15.2) H 02/16/17 06:16 Plt Count 258 K/mm3 (140-440) 02/16/17 06:16 Lymph % (Auto) 21.8 % (13.4-35.0) 02/16/17 06:16 Glynn % (Auto) 8.5 % (0.0-7.3) H 02/16/17 06:16 Eos % (Auto) 1.4 % (0.0-4.3) 02/16/17 06:16 Baso % (Auto) 1.0 % (0.0-1.8) 02/16/17 06:16 Lymph # 1.7 K/mm3 (1.2-5.4) 02/16/17 06:16 Glynn # 0.7 K/mm3 (0.0-0.8) 02/16/17 06:16 Eos # 0.1 K/mm3 (0.0-0.4) 02/16/17 06:16 Baso # 0.1 K/mm3 (0.0-0.1) 02/16/17 06:16 Seg Neutrophils % 67.3 % (40.0-70.0) 02/16/17 06:16 Seg Neutrophils # 5.3 K/mm3 (1.8-7.7) 02/16/17 06:16 PT 15.0 Sec. (12.2-14.9) H 02/15/17 15:55 INR 1.12 (0.87-1.13) 02/15/17 15:55 APTT 37.0 Sec. (24.2-36.6) H 02/15/17 15:55 Sodium 141 mmol/L (137-145) 02/16/17 06:16 Potassium 5.1 mmol/L (3.6-5.0) H 02/16/17 06:16 Chloride 85.8 mmol/L (98-107) L 02/16/17 06:16 Carbon Dioxide 28 mmol/L (22-30) 02/16/17 06:16 Anion Gap 32 mmol/L 02/16/17 06:16 BUN 92 mg/dL (9-20) H 02/16/17 06:16 Creatinine 14.9 mg/dL (0.8-1.5) H 02/16/17 06:16 Estimated GFR 4 ml/min 02/16/17 06:16 BUN/Creatinine Ratio 6 % 02/16/17 06:16 Glucose 74 mg/dL (75-100) L 02/16/17 06:16 Calcium 9.0 mg/dL (8.4-10.2) 02/16/17 06:16 Total Bilirubin 0.40 mg/dL (0.1-1.2) 02/15/17 13:31 AST 33 units/L (5-40) 02/15/17 13:31 ALT 9 units/L (7-56) 02/15/17 13:31 Alkaline Phosphatase 84 units/L (35-129) 02/15/17 13:31 NT-Pro-B Natriuret Pep > 12349 pg/mL (0-450) H 02/15/17 13:31 Total Protein 8.7 g/dL (6.3-8.2) H 02/15/17 13:31 Albumin 3.6 g/dL (3.9-5) L 02/15/17 13:31 Albumin/Globulin Ratio 0.7 % 02/15/17 13:31 Lipase 18 units/L (13-60) 02/15/17 13:31 - Imaging and Cardiology Chest x-ray: image reviewed (discoid atalectasis) CT scan - abdomen: image reviewed (large volum ascites with organ displacement)
[2017-02-16] MEDS ORDERED: APRESOLINE IV ONE (17:15)
[2017-02-17] MEDS: MORPHINE IV PRN ×4 (03:13→21:21)
[2017-02-17 05:56] LABS: Hematocrit 32.8 % (35.5-45.6); Hemoglobin 10.5 gm/dl (11.8-15.2); Mean Corpuscular HGB Conc 32 % (32-34); Mean Corpuscular Hemoglobin 28 pg (28-32); Mean Corpuscular Volume 87 fl (84-94); Platelet Count 227 K/mm3 (140-440); Red Blood Count 3.77 M/mm3 (3.65-5.03); Red Cell Distribution Width 15.8 % (13.2-15.2); White Blood Count 6.8 K/mm3 (4.5-11.0)
[2017-02-17 06:13] LABS: Calcium 9.7 mg/dL (8.4-10.2); Chloride 88.2 mmol/L (98-107); Potassium 4.9 mmol/L (3.6-5.0)
--- NOTE | 2017-02-17 11:01 | Progress Note ---
Assessment and Plan Assessment and plan: 27-year-old man with a history of end-stage renal disease on dialysis comes emergency room with complaints of abdominal pain and also recurrent ascities. Pain is all over, described as a sharp, constant, no radiation, intensity 7/10, better with pain medications. Missed 5 days of dialysis with no clear reason, Complains of shortness of breath Acute on chronic Respiratory failure Severe protein calorie malnutrition Hyperkalemia HTN ESRD Anemia of ESRD [id number] with nursing staff, will recheck and if still low will give some D5. Cachexia Peritoneal irritation secondary to severe Ascetics Plan * Continue supportive care * Dialysis per Nephrology * K is improved * Awaiting paracentesis, therapeutic and diagnostic, Review records considering recurrent issue * Nebs and oxygen therapy * DVT.GI PROPHY * Discussed plan of care with patient in detail. * Plan discussed with the patient and he verbalized understanding History Interval history: Patient seen and examined still with mild distress secondary to abdominal compression. awaiting paracentesis at the time of my evaluation. Denies chest pain, but mild shortness of breath. no fever or diarrhea reported. Patient is a poor historian about his clinical hx. Hospitalist Physical - Physical exam Narrative exam: Gen. appearance: Patient lying in bed, in mild discomfort, chronically ill appearing HEENT: Cachectic, Normocephalic, atraumatic, pupils equally round and reactive to light, extraocular movement intact, and no sclericterus,. No JVD or thyromegaly or nodule,neck supple, no carotid bruit ,mucous membranes moist, no exudate or erythema Heart: S1, S2, regular rate and rhythm Lungs: Decreased breath sound at bases bilaterally, breathing comfortable Abdomen: Positive bowel sounds, tender in lower quadrants, edematous abdomen, distended and protubrant, no organomegaly Extremity: No edema, cyanosis, clubbing Skin: No rash, nodules, warm, dry Neuro: Oriented 3, cranial nerves II-12 intact, speech is fluent, motor and sensory intact - Constitutional Vitals: Temp Pulse Resp BP Pulse Ox 97.6 F 93 H 18 167/112 99 02/17/17 08:02 02/17/17 08:02 02/17/17 08:02 02/17/17 08:02 02/17/17 08:02 Results - Labs CBC & Chem 7: 02/17/17 04:57 02/17/17 04:57 Labs: Laboratory Last Values WBC 6.8 K/mm3 (4.5-11.0) 02/17/17 04:57 RBC 3.77 M/mm3 (3.65-5.03) 02/17/17 04:57 Hgb 10.5 gm/dl (11.8-15.2) L 02/17/17 04:57 Hct 32.8 % (35.5-45.6) L 02/17/17 04:57 MCV 87 fl (84-94) 02/17/17 04:57 MCH 28 pg (28-32) 02/17/17 04:57 MCHC 32 % (32-34) 02/17/17 04:57 RDW 15.8 % (13.2-15.2) H 02/17/17 04:57 Plt Count 227 K/mm3 (140-440) 02/17/17 04:57 Lymph % (Auto) 21.8 % (13.4-35.0) 02/16/17 06:16 [place] % (Auto) 8.5 % (0.0-7.3) H 02/16/17 06:16 Eos % (Auto) 1.4 % (0.0-4.3) 02/16/17 06:16 Baso % (Auto) 1.0 % (0.0-1.8) 02/16/17 06:16 Lymph # 1.7 K/mm3 (1.2-5.4) 02/16/17 06:16 [place] # 0.7 K/mm3 (0.0-0.8) 02/16/17 06:16 Eos # 0.1 K/mm3 (0.0-0.4) 02/16/17 06:16 Baso # 0.1 K/mm3 (0.0-0.1) 02/16/17 06:16 Seg Neutrophils % 67.3 % (40.0-70.0) 02/16/17 06:16 Seg Neutrophils # 5.3 K/mm3 (1.8-7.7) 02/16/17 06:16 PT 15.0 Sec. (12.2-14.9) H 02/15/17 15:55 INR 1.12 (0.87-1.13) 02/15/17 15:55 APTT 37.0 Sec. (24.2-36.6) H 02/15/17 15:55 Sodium 141 mmol/L (137-145) 02/17/17 04:57 Potassium 4.9 mmol/L (3.6-5.0) 02/17/17 04:57 Chloride 88.2 mmol/L (98-107) L 02/17/17 04:57 Carbon Dioxide 31 mmol/L (22-30) H 02/17/17 04:57 Anion Gap 27 mmol/L 02/17/17 04:57 BUN 61 mg/dL (9-20) H 02/17/17 04:57 Creatinine 11.7 mg/dL (0.8-1.5) H 02/17/17 04:57 Estimated GFR 5 ml/min 02/17/17 04:57 BUN/Creatinine Ratio 5 % 02/17/17 04:57 Glucose 72 mg/dL (75-100) L 02/17/17 04:57 Calcium 9.7 mg/dL (8.4-10.2) 02/17/17 04:57 Total Bilirubin 0.40 mg/dL (0.1-1.2) 02/15/17 13:31 AST 33 units/L (5-40) 02/15/17 13:31 ALT 9 units/L (7-56) 02/15/17 13:31 Alkaline Phosphatase 84 units/L (35-129) 02/15/17 13:31 NT-Pro-B Natriuret Pep > 12153 pg/mL (0-450) H 02/15/17 13:31 Total Protein 8.7 g/dL (6.3-8.2) H 02/15/17 13:31 Albumin 3.6 g/dL (3.9-5) L 02/15/17 13:31 Albumin/Globulin Ratio 0.7 % 02/15/17 13:31 Lipase 18 units/L (13-60) 02/15/17 13:31
--- NOTE | 2017-02-17 13:38 | Progress Note ---
Assessment and Plan Impression: * ESRD * Uremia * Non compliance with dialysis * Fluid overload * Hyperkalemia * Abdominal pain due to ascites * Hypertension Plan: * HD MWF * strict i/o * uf as tolerated * low k bath with hd * stress compliance with hd * daily lytes * renal diet Subjective Date of service: 02/17/17 Objective - Vital Signs Vital signs: Vital Signs - 12hr 02/17/17 08:02 Temperature 97.6 F Pulse Rate 93 H Respiratory 18 Rate Blood Pressure 167/112 O2 Sat by Pulse 99 Oximetry - Lab 02/17/17 04:57 02/17/17 04:57 Most recent lab results Calcium 9.7 mg/dL (8.4-10.2) 02/17/17 04:57
[2017-02-17] MEDS ORDERED: ALBURX 25% (ALBUMIN) IV ONE (14:11)
--- NOTE | 2017-02-17 14:14 | Ultrasound Report ---
ULTRASOUND-GUIDED PARACENTESIS INDICATION: Ascites, for therapeutic and diagnostic paracentesis. COMPARISON: 02/15/2017 CT. FINDINGS: After explaining the risk and benefits to the patient, written informed consent obtained. Using ultrasound guidance, an appropriate skin site in the right lower quadrant marked. Skin prepped and draped in the usual sterile fashion. 1% Xylocaine used for local anesthesia. Using ultrasound guidance, a 5 [place] Yueh catheter was placed into the fluid and 12.8 L of dark red fluid removed. Sample sent to laboratory. Catheter removed and hemostasis achieved. Patient tolerated the procedure well and left the radiology department in stable condition. CONCLUSION: Ultrasound guided paracentesis, as described above. IV albumin to be administered on the floor. Dr. Dobson present for and performed the entire procedure. Thank you for the opportunity to participate in this patient's care.
--- NOTE | 2017-02-17 14:31 | Procedure Note ---
Date of procedure: 02/17/17 Pre-op diagnosis: Large Ascites Post-op diagnosis: same Procedure: US guided paracentesis Findings: 12.8 liters of dark red fluid removed. Anesthesia: local Surgeon: TORIN FRANCISCO Estimated blood loss: none Specimen disposition: to lab Condition: stable Disposition: floor (IV albumin to be given on floor.)
[2017-02-17 14:42] LABS: Basophils Body Fluid 0 %; Reactive Lymph Body Fluid 0 %
--- NOTE | 2017-02-17 15:52 | Progress Note ---
Assessment and Plan Impression: * ESRD * UREMIA * non compliance with dialysis * Fluid overload * hyperkalemia * Abdominal pain due to ascites * Hypertension Plan: * HD today and q MWF * strict i/o * s/p paracentesis * uf as tolerated * low k bath with hd * stress compliance with hd * daily lytes * renal diet * can dc home after 02/18 HD Subjective Date of service: 02/17/17 Principal diagnosis: esrd Interval history: resting well in bed today Objective - Exam Narrative Exam: Gen. appearance: Patient lying in bed, no apparent distress HEENT: Normocephalic, atraumatic, pupils equally round and reactive to light, extraocular movement intact, and no sclericterus,. No JVD or thyromegaly or nodule,neck supple, no carotid bruit ,mucous membranes moist, no exudate or erythema Heart: S1, S2, regular rate and rhythm Lungs: secrease breath sound at bases bilaterally, breathing comfortable Abdomen: Positive bowel sounds, tender in lower quadrants, ascites, distended Extremity: No edema, cyanosis, clubbing Skin: No rash, nodules, warm, dry Neuro: Oriented 3, cranial nerves II-12 intact, speech is fluent, motor and sensory intact - Vital Signs Vital signs: Vital Signs - 12hr 02/17/17 08:02 Temperature 97.6 F Pulse Rate 93 H Respiratory 18 Rate Blood Pressure 167/112 O2 Sat by Pulse 99 Oximetry - Lab 02/17/17 04:57 02/17/17 04:57 Most recent lab results Calcium 9.7 mg/dL (8.4-10.2) 02/17/17 04:57
[2017-02-17] MEDS: ALBURX 25% (ALBUMIN) IV ONE ×2 (17:26→18:48)
[2017-02-17] MEDS ORDERED: MAXIPIME 1 GM in NACL 0.9% 20 ML IV SCH (18:00)
[2017-02-17] MEDS ORDERED: MAXIPIME/NS 1 GM/100 ML 1 GM/100 ML BAG IV SCH (18:00)
[2017-02-18] MEDS: APRESOLINE IV PRN (03:58)
[2017-02-18] MEDS: MORPHINE IV PRN ×2 (06:20→14:36)
[2017-02-18 06:59] LABS: Hematocrit 31.8 % (35.5-45.6); Hemoglobin 10.2 gm/dl (11.8-15.2); Mean Corpuscular HGB Conc 32 % (32-34); Mean Corpuscular Hemoglobin 28 pg (28-32); Mean Corpuscular Volume 87 fl (84-94); Platelet Count 177 K/mm3 (140-440); Red Blood Count 3.67 M/mm3 (3.65-5.03); Red Cell Distribution Width 15.9 % (13.2-15.2); White Blood Count 6.6 K/mm3 (4.5-11.0)
[2017-02-18 07:15] LABS: Calcium 9.4 mg/dL (8.4-10.2); Chloride 87.6 mmol/L (98-107)
--- NOTE | 2017-02-18 12:03 | Discharge Summary ---
Providers - Providers Date of Admission: 02/15/17 23:41 Attending physician: MICHELET DIALLO MD 02/15/17 23:41 Consult to Physician [CONS] Routine Consulting Provider: OLESYA SANZ Reason For Exam: hd Place consult to:: dr. sanz Notified:: office Phone number called:: Was contact made?: Yes If yes, spoke with:: bogdan Time called:: 09:56 Primary care physician: PRESSURE SUPERVISOR Hospitalization Reason for admission: ABDOMINAL PAIN Condition: Stable Hospital course: 27-year-old man with a history of end-stage renal disease on dialysis comes emergency room with complaints of abdominal pain and also recurrent ascities. Pain is all over, described as a sharp, constant, no radiation, intensity 7/10, better with pain medications. Missed 5 days of dialysis with no clear reason, Complains of shortness of breath. On admission imaging studies of the abdomen showed displaced bowel organs secondary to large massive ascites. The patient is not sure why he has recurrent ascites but review of records reports possible liver disease. Also possible sickle cell disease on imaging studies. Patient does not endorse to sickle cell or any alcoholic history. He reports that he is on multiple medications but is unable to verify them. He was given dialysis while in the hospital and proceeded to have a large volume paracentesis done with no culture growth indicated of infection. Fluid appears to be transudative in nature. Patient was treated empirically with cefepime and folate paracentesis abdominal discomfort did improve. He does not have any fever and is clinically stable for discharge and recommended follow-up with hematology oncology, continue dialysis, follow up with roll tension tester. Patient will possibly need every 6 months ultrasound of the liver for screening for hepatocellular carcinoma. This has been discussed with the patient and family verbalized understanding Discharge diagnosis Acute on chronic Respiratory failure Severe protein calorie malnutrition Hyperkalemia HTN ESRD Anemia of ESRD Hypoglycemia- Moderate, protein calorie malnutrition Cachexia Ascites Peritoneal irritation secondary to severe Ascetics UREMIA Non compliance with dialysis Disposition: DC-01 TO HOME OR SELFCARE Time spent for discharge: 35 mins Core Measure Documentation - Palliative Care Palliative Care/ Comfort Measures: Not Applicable - Core Measures Any of the following diagnoses?: none - VTE Discharge Requirements Deep Vein Thrombosis/Pulmonary Embolism Present on Admission: No Exam - Physical Exam Narrative exam: Gen. appearance: Patient lying in bed, in mild discomfort, chronically ill appearing HEENT: Cachectic, Normocephalic, atraumatic, pupils equally round and reactive to light, extraocular movement intact, and no sclericterus,. No JVD or thyromegaly or nodule,neck supple, no carotid bruit ,mucous membranes moist, no exudate or erythema Heart: S1, S2, regular rate and rhythm Lungs: Decreased breath sound at bases bilaterally, breathing comfortable Abdomen: Positive bowel sounds, tender in lower quadrants, edematous abdomen, distended and protubrant, no organomegaly Extremity: No edema, cyanosis, clubbing Skin: No rash, nodules, warm, dry Neuro: Oriented 3, cranial nerves II-12 intact, speech is fluent, motor and sensory intact - Constitutional Vitals: Temp Pulse Resp BP Pulse Ox 97.4 F L 108 H 18 135/96 94 02/18/17 09:20 02/18/17 11:00 02/18/17 09:20 02/18/17 11:00 02/18/17 07:32 Plan Activity: advance as tolerated Diet: renal Special Instructions: record daily weights, record daily BP diary Follow up with: PRIMARY CAREMD [Primary Care Provider] - 3-5 Days DENYS GARCIA MD [Staff Physician] - 7 Days SARAH REDDY MD [Staff Physician] - 7 Days LIZ GODDARD MD [Staff Physician] - 7 Days
[2017-02-18 15:56] VITALS: BP 138/98
--- NOTE | 2017-02-18 16:49 | Progress Note ---
Assessment and Plan Impression: * ESRD * Uremia * Fluid overload * Hyperkalemia * Non compliance with dialysis * Abdominal ascites s/p paracentesis * Hypertension Plan: * HD MWF * UF as tolerated * Strict I/O * Renal diet * Stable for d/c to home Subjective Date of service: 02/18/17 Principal diagnosis: esrd Interval history: Patient reports chronic nausea. Otherwise, he has no complaints. Objective - Vital Signs Vital signs: Vital Signs - 12hr 02/18/17 02/18/17 02/18/17 07:32 09:20 09:25 Temperature 97.6 F 97.4 F L Pulse Rate 93 H 94 H 90 Respiratory 18 18 Rate Blood Pressure 147/100 165/109 161/107 O2 Sat by Pulse 94 Oximetry 02/18/17 02/18/17 02/18/17 09:30 10:00 10:30 Temperature Pulse Rate 90 98 H 99 H Respiratory Rate Blood Pressure 162/108 138/101 140/99 O2 Sat by Pulse 98 Oximetry 02/18/17 02/18/17 02/18/17 11:00 11:30 12:00 Temperature Pulse Rate 108 H 111 H 105 H Respiratory Rate Blood Pressure 135/96 139/101 139/97 O2 Sat by Pulse Oximetry 02/18/17 02/18/17 02/18/17 12:15 12:30 13:00 Temperature Pulse Rate 122 H 102 H 105 H Respiratory Rate Blood Pressure 141/90 143/97 132/92 O2 Sat by Pulse Oximetry 02/18/17 02/18/17 02/18/17 13:30 14:00 14:05 Temperature Pulse Rate 112 H 112 H 112 H Respiratory Rate Blood Pressure 123/89 133/90 129/93 O2 Sat by Pulse Oximetry 02/18/17 02/18/17 14:10 15:23 Temperature 99.0 F 99.0 F Pulse Rate 106 H 106 H Respiratory 19 19 Rate Blood Pressure 138/98 138/98 O2 Sat by Pulse 100 Oximetry - General Appearance General appearance: well-developed EENT: ATNC, mucous membranes moist Respiratory: Present: Clear to Ascultation Cardiology: regular, S1S2 Gastrointestinal: normal, no tenderness, no distended Integumentary: no rash Neurologic: alert and oriented x3 Musculoskeletal: other (no edema) Psychiatric: cooperative - Lab 02/18/17 05:50 02/18/17 05:50 Most recent lab results Calcium 9.4 mg/dL (8.4-10.2) 02/18/17 05:50
[2017-02-19 14:54] LABS: LDH,Body Fluid 681; Total Protein,Body Fluid 4.9 (15.0-45.0)
== END 2017-02-18 17:09 | disposition home or self-care (01) | DRG 371 ==
LOC: ED 12:34 → 4A 23:41 → 3A 02-16 00:56
PROVIDERS: ADMIT Internal Medicine; ATTEND Internal Medicine
PROC: 5A1D70Z Performance of Urinary Filtration, Intermittent, Less than 6 Hours Per Day (ICD-10-PCS; principal; 2017-02-16)
PROC: 0W9G30Z Drainage of Peritoneal Cavity with Drainage Device, Percutaneous Approach (ICD-10-PCS; 2017-02-17)
PROC: 5A1D70Z Performance of Urinary Filtration, Intermittent, Less than 6 Hours Per Day (ICD-10-PCS; 2017-02-18)
DX: K65.9 Peritonitis, unspecified (principal); N18.6 End stage renal disease; J96.20 Acute and chronic respiratory failure, unspecified whether with hypoxia or hypercapnia; E43 Unspecified severe protein-calorie malnutrition; R18.8 Other ascites; I12.0 Hypertensive chronic kidney disease with stage 5 chronic kidney disease or end stage renal disease; E87.5 Hyperkalemia; E87.70 Fluid overload, unspecified; F17.210 Nicotine dependence, cigarettes, uncomplicated; D63.1 Anemia in chronic kidney disease; E16.2 Hypoglycemia, unspecified; Z68.21 Body mass index [BMI] 21.0-21.9, adult; Z99.2 Dependence on renal dialysis; Z91.15 Patient's noncompliance with renal dialysis; Z90.5 Acquired absence of kidney
CPT/HCPCS: 36415; 49083; 71020; 74176; 80048; 80053; 83605; 83690; 83880; 84132; 84160; 85025; 85027; 85610; 85730; 87116; 88112; 88305; 89051; 93005; 93010; 96374; 96375; 99406; J0360; J0692; J0885; J2270; J2405; J7030; P9047

== ENCOUNTER 2017-02-19 13:06 | Inpatient (IN) | payer MEDICARE ==
[2017-02-19] MEDS ORDERED: NACL 0.9% 250ML 250 ML ONE (13:47)
[2017-02-19] MEDS ORDERED: NACL 0.9% 250ML 250 ML IV ONE (13:56)
[2017-02-19] MEDS ORDERED: VANCOMYCIN 1,500 MG in NACL 0.9% 500 ML 500 ML IV ONE (14:00)
[2017-02-19] MEDS ORDERED: VANCOMYCIN PHARMACY TO DOSE IV SCH (14:00)
[2017-02-19 14:25] LABS: Basophils % (Auto) 1.2 % (0.0-1.8); Eosinophils % (Auto) 1.5 % (0.0-4.3); Hematocrit 31.9 % (35.5-45.6); Hemoglobin 9.9 gm/dl (11.8-15.2); Mean Corpuscular HGB Conc 31 % (32-34); Mean Corpuscular Hemoglobin 27 pg (28-32); Mean Corpuscular Volume 87 fl (84-94); Platelet Count 164 K/mm3 (140-440); Red Blood Count 3.67 M/mm3 (3.65-5.03); Red Cell Distribution Width 16.1 % (13.2-15.2)
[2017-02-19 14:38] LABS: INR 1.12 (0.87-1.13)
[2017-02-19 14:39] LABS: Calcium 9.9 mg/dL (8.4-10.2); Chloride 92.5 mmol/L (98-107); Partial Thromboplastin Time 36.6 Sec. (24.2-36.6)
--- NOTE | 2017-02-19 14:40 | XRay Report ---
FINAL REPORT EXAM: XR CHEST 1V AP HISTORY: hypertension TECHNIQUE: Chest, portable AP supine PRIORS: None. FINDINGS: The heart size is normal. Mediastinal contours are normal. Pulmonary vasculature is not congested. The lungs are clear. There are no pleural effusion seen. There is no evidence of pneumothorax. IMPRESSION: There is no acute abnormality identified.
[2017-02-19 14:42] LABS: Alanine Aminotransferase 6 units/L (7-56); Albumin 3.4 g/dL (3.9-5); Albumin/Globulin Ratio 0.9 %; Alkaline Phosphatase 70 units/L (35-129); Lipase 20 units/L (13-60); Total Protein 7.4 g/dL (6.3-8.2)
[2017-02-19] MEDS ORDERED: NACL 0.9% 1000 ML 250 ML IV ONE (14:43)
[2017-02-19 14:44] LABS: Bilirubin,Direct < 0.2 mg/dL (0-0.2)
[2017-02-19] MEDS ORDERED: ZOSYN/NS 3.375GM/50ML 3.375 GM/50 ML BAG IV ONE (14:46)
--- NOTE | 2017-02-19 15:02 | Emergency Department Report ---
ED General Adult HPI - General Chief complaint: Weakness Stated complaint: LOW BP Time Seen by Provider: 02/19/17 13:37 Source: patient, EMS Mode of arrival: Stretcher Limitations: No Limitations - History of Present Illness Initial comments: The patient presented to the emergency department hypotensive and pale. Apparently he was at dialysis today and was found to have a blood pressure of 70 palpable. He was sent by EMS for further care and evaluation. The patient tells me that he simply felt weak and almost as if he was going to pass out while he was in dialysis. He had no prior prodrome. He states that he went home from the hospital yesterday and was able to eat and drink. He presently thinks that he lost too much fluid. He states that he had "12 L of fluid withdrawn from his abdomen". Indeed he did have a paracentesis but I doubt if he had that much fluid withdrawn. He did have cytology and culture which is still pending. His white blood cell count was over 11,008 red blood cell count approximately 100,000 on paracentesis. His cultures so far is negative. I called the lab for a interval look at the culture. However I was told that this cannot be done until Tuesday. The patient has a history of HIT. He was previously on Coumadin until about 3 months ago. He states he was just "taken off of it". He is not on any alternative anticoagulant. The patient denies any chest pain or acute shortness of breath with this above episode. He did not have any acute abdominal pain either. He denies fever and chills. -: Gradual Consistency: constant Improves with: none Worsens with: none Associated Symptoms: denies other symptoms Treatments Prior to Arrival: none - Related Data Home Medications Medication Instructions Recorded Confirmed Last Taken Carvedilol 12.5 mg PO BID 02/15/17 02/15/17 Unknown Clonidine 0.3 mg PO TID 02/15/17 02/15/17 Unknown Colace CAP 100 mg PO QDAY 02/15/17 02/15/17 Unknown Dialyvite 800-Zinc 15 mg Tab 800 mg PO QDAY 02/15/17 02/15/17 Unknown Flexeril 10 MG TAB 10 mg PO QHS 02/15/17 02/15/17 Unknown Losartan Potassium 100 mg PO QDAY 02/15/17 02/15/17 Unknown Nexium 40 mg PO QAM 02/15/17 02/15/17 Unknown Vitamin D3 2,000 unit 2,000 units PO QDAY 02/15/17 02/15/17 Unknown Zofran TAB 4 mg PO PRN PRN MDD nausea 02/15/17 02/15/17 Unknown Zoloft 100 mg PO DAILY 02/15/17 02/15/17 Unknown hydrOXYzine 25 mg PO PRN PRN 02/15/17 02/15/17 Unknown traZODone 100 mg PO QPM 02/15/17 02/15/17 Unknown Allergies Allergy/AdvReac Type Severity Reaction Status Date / Time heparin Allergy lowers Verified 02/19/17 13:22 platelets ED Review of Systems ROS: Stated complaint: LOW BP Other details as noted in HPI Constitutional: weakness. denies: chills, fever Eyes: denies: eye pain, eye discharge, vision change ENT: denies: ear pain, throat pain Respiratory: denies: cough, shortness of breath, wheezing Cardiovascular: denies: chest pain, palpitations Endocrine: no symptoms reported Gastrointestinal: denies: abdominal pain, nausea, diarrhea Genitourinary: denies: urgency, dysuria Musculoskeletal: denies: back pain, joint swelling, arthralgia Skin: denies: rash, lesions Neurological: denies: headache, weakness, paresthesias Psychiatric: denies: anxiety, depression Hematological/Lymphatic: denies: easy bleeding, easy bruising ED Past Medical Hx - Past Medical History Hx Hypertension: Yes Hx Congestive Heart Failure: No Hx Diabetes: No Hx GERD: Yes Hx Renal Disease: Yes (HD ( / / Tue)) Hx Asthma: No Hx COPD: No Additional medical history: Hidradenitis - Surgical History Additional Surgical History: PD CATHETER - AND REMOVAL. AV FISTULA. LYMPH NODES REMOVED LEFT GROIN. TONSILLECTOMY. Patient does have a history of peritonitis with previous PD - Social History Smoking Status: Current Every Day Smoker Substance Use Type: None - Medications Home Medications: Home Medications Medication Instructions Recorded Confirmed Last Taken Type Carvedilol 12.5 mg PO BID 02/15/17 02/15/17 Unknown History Clonidine 0.3 mg PO TID 02/15/17 02/15/17 Unknown History Colace CAP 100 mg PO QDAY 02/15/17 02/15/17 Unknown History Dialyvite 800-Zinc 15 mg Tab 800 mg PO QDAY 02/15/17 02/15/17 Unknown History Flexeril 10 MG TAB 10 mg PO QHS 02/15/17 02/15/17 Unknown History Losartan Potassium 100 mg PO QDAY 02/15/17 02/15/17 Unknown History Nexium 40 mg PO QAM 02/15/17 02/15/17 Unknown History Vitamin D3 2,000 unit 2,000 units PO QDAY 02/15/17 02/15/17 Unknown History Zofran TAB 4 mg PO PRN PRN MDD nausea 02/15/17 02/15/17 Unknown History Zoloft 100 mg PO DAILY 02/15/17 02/15/17 Unknown History hydrOXYzine 25 mg PO PRN PRN 02/15/17 02/15/17 Unknown History traZODone 100 mg PO QPM 02/15/17 02/15/17 Unknown History ED Physical Exam - General General appearance: lethargic (and pale) - Head Head exam: Present: atraumatic, normocephalic - Eye Eye exam: Present: normal appearance, PERRL, EOMI. Absent: scleral icterus - ENT ENT exam: Present: mucous membranes moist - Neck Neck exam: Present: normal inspection. Absent: tenderness, meningismus - Respiratory Respiratory exam: Present: normal lung sounds bilaterally. Absent: respiratory distress - Cardiovascular Cardiovascular Exam: Present: regular rate, normal rhythm. Absent: systolic murmur, diastolic murmur, rubs, gallop - GI/Abdominal GI/Abdominal exam: Present: soft, tenderness (mild discomfort right lower quadrant or centesis scar in that area), normal bowel sounds. Absent: distended , guarding, rebound, rigid - Rectal Rectal exam: Present: deferred - Extremities Exam Extremities exam: Present: normal inspection - Back Exam Back exam: Present: normal inspection - Neurological Exam Neurological exam: Present: alert, oriented X3, CN II-XII intact. Absent: motor sensory deficit - Psychiatric Psychiatric exam: Present: anxious, flat affect - Skin Skin exam: Present: warm, dry, intact, normal color. Absent: rash ED Course Vital Signs 02/19/17 02/19/17 02/19/17 13:22 13:40 14:43 Temperature 97.9 F Pulse Rate 89 77 Respiratory 22 22 16 Rate Blood Pressure 94/49 Blood Pressure 97/55 [Right] O2 Sat by Pulse 100 100 99 Oximetry - Reevaluation(s) Reevaluation #1: Patient perked up quite well with IV fluids. Initially a code sepsis was called considering his recent hospitalization, peritoneal white blood cell count , hypotension of uncertain etiology and presentation looking ill and pale. However he did well with fluid, his lactic acid level was normal, and his laboratory database was largely reassuring. A CT of the abdomen without contrast has been ordered but not yet completed. A VQ scan of the lungs is pending. The patient was referred to Dr. Venegas for admission for further care and observation and dialysis ultimately. 02/19/17 16:40 ED Medical Decision Making - Lab Data Result diagrams: 02/19/17 14:02 02/19/17 14:02 Laboratory Results - last 24 hr 02/19/17 02/19/17 02/19/17 14:02 14:02 14:02 WBC 7.0 RBC 3.67 Hgb 9.9 L Hct 31.9 L MCV 87 MCH 27 L MCHC 31 L RDW 16.1 H Plt Count 164 Lymph % (Auto) 22.1 [place] % (Auto) 8.2 H Eos % (Auto) 1.5 Baso % (Auto) 1.2 Lymph # 1.5 [place] # 0.6 Eos # 0.1 Baso # 0.1 Seg Neutrophils % 67.0 Seg Neutrophils # 4.7 PT 15.0 H INR 1.12 APTT 36.6 Sodium 141 Potassium 5.0 Chloride 92.5 L Carbon Dioxide 32 H Anion Gap 22 BUN 38 H Creatinine 8.3 H Estimated GFR 8 BUN/Creatinine Ratio 5 Glucose 49 L Lactic Acid Calcium 9.9 Phosphorus Magnesium Total Bilirubin Direct Bilirubin AST ALT Alkaline Phosphatase Troponin T 0.275 H* Total Protein Albumin Albumin/Globulin Ratio Triglycerides 85 Cholesterol 116 LDL Cholesterol Direct 54 HDL Cholesterol 45 Cholesterol/HDL Ratio 2.57 Lipase 02/19/17 02/19/17 02/19/17 14:02 14:02 14:02 WBC RBC Hgb Hct MCV MCH MCHC RDW Plt Count Lymph % (Auto) [place] % (Auto) Eos % (Auto) Baso % (Auto) Lymph # [place] # Eos # Baso # Seg Neutrophils % Seg Neutrophils # PT INR APTT Sodium Potassium Chloride Carbon Dioxide Anion Gap BUN Creatinine Estimated GFR BUN/Creatinine Ratio Glucose Lactic Acid 1.40 Calcium Phosphorus 8.10 H Magnesium 2.20 Total Bilirubin 0.40 Direct Bilirubin < 0.2 AST 12 ALT 6 L Alkaline Phosphatase 70 Troponin T Total Protein 7.4 Albumin 3.4 L Albumin/Globulin Ratio 0.9 Triglycerides Cholesterol LDL Cholesterol Direct HDL Cholesterol Cholesterol/HDL Ratio Lipase 20 - EKG Data -: EKG Interpreted by Me EKG shows normal: sinus rhythm, axis, intervals, QRS complexes Rate: normal - EKG Data Interpretation: nonspecific ST-T wave johnson - Radiology Data interpreted by me: Chest x-ray shows no acute process Critical Care Time: Yes Critical care time in (mins) excluding proc time.: 60 Critical care attestation.: If time is entered above; I have spent that time in minutes in the direct care of this critically ill patient, excluding procedure time. ED Disposition Clinical Impression: Hypotensive episode, Elevated troponin, End stage renal disease on dialysis, Volume depletion, Chronic liver disease Disposition: OP ADMIT IP TO THIS HOSP Is pt being admited?: Yes Does the pt Need Aspirin: Yes Condition: Stable Additional Instructions: This is going to give you a copy of your EKG. I'm going to refer her to a telex operator for further evaluation. I do not see that it says any benefit to be admitted to the hospital at this time. I do not think her chest pain is secondary to a heart problem. However I think it requires follow-up. Return to the emergency department should you have chest pain that is prolonged more than seconds to a minute or 2. Return should he have shortness of breath swelling or any acute change or problem. She referrals to the telex operator Dr. Hernandez and a primary care doctor Dr. Styles. Referrals: VICK HERNANDEZ MD [Staff Physician] - 24 Hours (Tuesday if possible) SAAD CRAWFORD MD [Primary Care Provider] - 3-5 Days ROMAN STYLES MD [Staff Physician] - 3-5 Days Time of Disposition: 16:46
--- NOTE | 2017-02-19 15:57 | Cat Scan Report ---
FINAL REPORT EXAM: CT ABDOMEN PELVIS WO CON HISTORY: abd pain TECHNIQUE: Noncontrast CT of the abdomen and pelvis performed. No IV or gastrointestinal contrast was administered. Coronal and sagittal reformatted images were obtained. PRIORS: 02/15/2017 FINDINGS: There are coronary artery atherosclerotic calcifications. The visualized aspects of the lung bases are clear. There is a large amount of ascites present. This has decreased in the interval, however. Within the limitations of a non-enhanced study, the visualized liver, spleen, pancreas, and adrenal glands demonstrate no significant abnormalities. Kidneys are atrophic. Bowel loops are mildly prominent which could reflect ileus or enteritis. Obstruction unlikely. There is no abdominal aortic aneurysm. There are aortoiliac atherosclerotic calcifications. The appendix is not specifically identified. There is no free intraperitoneal air. The bladder is empty, compressed by ascites. IMPRESSION: Large amount of ascites although less as compared to prior. Atrophic kidneys. Diffusely prominent small bowel loops may reflect ileus or enteritis. Obstruction is unlikely. Coronary and aortic atherosclerotic calcifications.
[2017-02-19] MEDS ORDERED: ZOSYN/NS 2.25 GM/50ML 2.25 GM/50 ML BAG IV SCH (16:00)
--- NOTE | 2017-02-19 16:20 | Nuclear Medicine Report ---
FINAL REPORT PROCEDURE: NM LUNG SCAN PERF/VENT TECHNIQUE: Five mCi Tc-99m MAA was injected IV for pulmonary perfusion imaging in multiple projections. 15 mCi xenon 133 gas was inhaled for pulmonary ventilation imaging in multiple projections. HISTORY: chest pain COMPARISON: Chest x-ray from the same day FINDINGS: There is mild retention of radiotracer in the lung bases on ventilation exam. This can be seen with asthma. No large perfusion defects or mismatched perfusion defects are seen. IMPRESSION: There may be mild air trapping as can be seen with asthma. Exam has very low probability for pulmonary embolus using revised PIOPED criteria.
[2017-02-19] MEDS ORDERED: NORCO 5/325 PO ONE (16:56)
--- NOTE | 2017-02-19 17:44 | Event Note ---
Date: 02/19/17 Patient evaluated in Er Rm 18. Patient sitting in bed comfortable and eating by himself. Feels a lot better. Was hypotensive initially sec to excessive fluid removal. BP improved to 100/67 and HR 87/min. Patient wants to go Home. Discharge diagnosis Volume depletion which was repleted in Ed ELEVATED TROPONIN-CHRONIC hYPOTENSION RESOLVED
[2017-02-19 18:26] VITALS: BP 100/69
== END 2017-02-19 17:47 | disposition home or self-care (01) | DRG 314 ==
LOC: ED 13:06 → 4A 17:25
PROVIDERS: ADMIT Internal Medicine; ATTEND Internal Medicine
DX: I95.9 Hypotension, unspecified (principal); N18.6 End stage renal disease; I10 Essential (primary) hypertension; K21.9 Gastro-esophageal reflux disease without esophagitis; F17.200 Nicotine dependence, unspecified, uncomplicated; E86.9 Volume depletion, unspecified; K76.9 Liver disease, unspecified; Z79.899 Other long term (current) drug therapy; Z99.2 Dependence on renal dialysis
CPT/HCPCS: 36415; 71010; 74176; 78582; 80048; 80061; 80074; 82140; 83690; 83735; 83880; 84100; 84484; 85025; 85610; 85730; 86850; 86900; 86901; 87040; 93005; 93010; 96365; 96366; 96367; A9540; A9558; J2543; J3370; J7040; J7050

== ENCOUNTER 2017-03-05 12:31 | Inpatient (IN) | payer MEDICARE ==
[2017-03-05] MEDS ORDERED: NACL 0.9% 250ML 250 ML IV ONE ×2 (13:49→19:01)
[2017-03-05] MEDS ORDERED: SUBLIMAZE IV ONE (13:49)
[2017-03-05] MEDS ORDERED: ZOFRAN IV ONE (13:49)
--- NOTE | 2017-03-05 13:50 | Emergency Department Report ---
ED General Adult HPI - General Chief complaint: Weakness Stated complaint: GENERAL WEAKNESS Time Seen by Provider: 03/05/17 13:32 Source: patient, EMS (ems notes not available at time of chart dictation), RN notes reviewed, old records reviewed Mode of arrival: Stretcher Limitations: No Limitations - History of Present Illness Initial comments: This is a 27-year-old male who was previously unknown to this provider. Has a past medical history of end-stage renal disease, on dialysis Tuesday, , Tuesday. His last dialysis was on , he was supposed to get dialysis today, and missed it secondary to hypotension. Patient complains of acute on chronic left lower quadrant pain which started yesterday, associated with 15 episodes of nonbloody, nonbilious emesis. The abdominal pain is crampy and sharp, it does not radiate anywhere, it increases with palpation, and it decreases with rest. Patient reports she's been having some abdominal pain chronically, he reports last defecating 4 days ago, but he is passing gas. Nephrology: Dr. Armenta of note, on review of systems, patient does endorse brown stool mixed with red blood. -: Gradual, hour(s) Location: abdomen Radiation: non-radiation Severity scale (0 -10): 8 Consistency: intermittent Improves with: rest Worsens with: movement Associated Symptoms: nausea/vomiting, weakness. denies: confusion, chest pain, cough, diaphoresis, shortness of breath, syncope - Related Data Home Medications Medication Instructions Recorded Confirmed Last Taken Carvedilol 12.5 mg PO BID 02/15/17 02/15/17 Unknown Clonidine 0.3 mg PO TID 02/15/17 02/15/17 Unknown Colace CAP 100 mg PO QDAY 02/15/17 02/15/17 Unknown Dialyvite 800-Zinc 15 mg Tab 800 mg PO QDAY 02/15/17 02/15/17 Unknown Flexeril 10 MG TAB 10 mg PO QHS 02/15/17 02/15/17 Unknown Losartan Potassium 100 mg PO QDAY 02/15/17 02/15/17 Unknown Nexium 40 mg PO QAM 02/15/17 02/15/17 Unknown Vitamin D3 2,000 unit 2,000 units PO QDAY 02/15/17 02/15/17 Unknown Zofran TAB 4 mg PO PRN PRN MDD nausea 02/15/17 02/15/17 Unknown Zoloft 100 mg PO DAILY 02/15/17 02/15/17 Unknown hydrOXYzine 25 mg PO PRN PRN 02/15/17 02/15/17 Unknown traZODone 100 mg PO QPM 02/15/17 02/15/17 Unknown Allergies Allergy/AdvReac Type Severity Reaction Status Date / Time heparin Allergy lowers Verified 02/19/17 13:22 platelets ED Review of Systems ROS: Stated complaint: GENERAL WEAKNESS Other details as noted in HPI ED Past Medical Hx - Past Medical History Hx Hypertension: Yes Hx Congestive Heart Failure: No Hx Diabetes: No Hx GERD: Yes Hx Renal Disease: Yes (HD ( / / Tue)) Hx Asthma: No Hx COPD: No Additional medical history: Hidradenitis - Surgical History Additional Surgical History: PD CATHETER - AND REMOVAL. AV FISTULA. LYMPH NODES REMOVED LEFT GROIN. TONSILLECTOMY. Patient does have a history of peritonitis with previous PD - Social History Smoking Status: Current Every Day Smoker Substance Use Type: None - Medications Home Medications: Home Medications Medication Instructions Recorded Confirmed Last Taken Type Carvedilol 12.5 mg PO BID 02/15/17 02/15/17 Unknown History Clonidine 0.3 mg PO TID 02/15/17 02/15/17 Unknown History Colace CAP 100 mg PO QDAY 02/15/17 02/15/17 Unknown History Dialyvite 800-Zinc 15 mg Tab 800 mg PO QDAY 02/15/17 02/15/17 Unknown History Flexeril 10 MG TAB 10 mg PO QHS 02/15/17 02/15/17 Unknown History Losartan Potassium 100 mg PO QDAY 02/15/17 02/15/17 Unknown History Nexium 40 mg PO QAM 02/15/17 02/15/17 Unknown History Vitamin D3 2,000 unit 2,000 units PO QDAY 02/15/17 02/15/17 Unknown History Zofran TAB 4 mg PO PRN PRN MDD nausea 02/15/17 02/15/17 Unknown History Zoloft 100 mg PO DAILY 02/15/17 02/15/17 Unknown History hydrOXYzine 25 mg PO PRN PRN 02/15/17 02/15/17 Unknown History traZODone 100 mg PO QPM 02/15/17 02/15/17 Unknown History ED Physical Exam - General Limitations: No Limitations General appearance: alert, in no apparent distress - Head Head exam: Present: atraumatic, normocephalic - Eye Eye exam: Present: normal appearance, EOMI. Absent: nystagmus - ENT ENT exam: Present: normal exam, normal orophraynx, mucous membranes moist, normal external ear exam - Neck Neck exam: Present: normal inspection, full ROM - Respiratory Respiratory exam: Present: normal lung sounds bilaterally. Absent: respiratory distress - Cardiovascular Cardiovascular Exam: Present: regular rate, normal rhythm, normal heart sounds. Absent: systolic murmur, diastolic murmur, rubs, gallop - GI/Abdominal GI/Abdominal exam: Present: soft, tenderness (there is left lower quadrant tenderness to deep palpation), normal bowel sounds, other (fluid is noted in the abdomen consistent with ascites). Absent: distended, guarding, rebound, rigid, pulsatile mass - Rectal Rectal exam: Present: normal inspection, normal rectal tone, heme (-) stool ( guaiac negative stool) - Extremities Exam Extremities exam: Present: normal inspection, full ROM, normal capillary refill , other (upper extremity AV fistula noted, no redness, pus or streaking). Absent: pedal edema, calf tenderness - Back Exam Back exam: Present: normal inspection, full ROM. Absent: tenderness, CVA tenderness (R), paraspinal tenderness, vertebral tenderness - Neurological Exam Neurological exam: Present: alert, oriented X3, CN II-XII intact, other ( Extraocular movements intact. Tongue midline. No facial droop. Facial sensation intact to light touch in the V1, V2, V3 distribution bilaterally. 5 and 5 strength in 4 extremities.. Sensation is intact to light touch in 4 extremities.). Absent: motor sensory deficit - Psychiatric Psychiatric exam: Present: normal affect, normal mood - Skin Skin exam: Present: warm, dry, intact, normal color. Absent: rash ED Course Vital Signs 03/05/17 03/05/17 03/05/17 12:35 12:46 12:48 Temperature 98.4 F Pulse Rate 86 81 Respiratory 20 18 Rate Blood Pressure 84/52 Blood Pressure 90/47 [Right] O2 Sat by Pulse 98 99 100 Oximetry 03/05/17 03/05/17 03/05/17 13:00 13:30 14:00 Temperature Pulse Rate Respiratory 19 17 Rate Blood Pressure 90/47 97/50 88/47 Blood Pressure [Right] O2 Sat by Pulse 99 97 100 Oximetry 03/05/17 03/05/17 03/05/17 14:30 15:25 15:30 Temperature Pulse Rate 66 66 64 Respiratory 17 12 10 L Rate Blood Pressure 90/57 90/57 117/76 Blood Pressure [Right] O2 Sat by Pulse 97 97 97 Oximetry 03/05/17 03/05/17 03/05/17 16:00 16:30 17:09 Temperature 97.3 F L Pulse Rate 68 72 Respiratory 11 L 12 14 Rate Blood Pressure 111/73 116/70 124/83 Blood Pressure [Right] O2 Sat by Pulse 95 94 96 Oximetry - Reevaluation(s) Reevaluation #1: 03/05/17 14:27 Differential diagnosis, including but not limited to: GI bleed, dehydration, ascites, electrolyte derangement Assessment and plan: 27-year-old male with hypotension, initial blood pressure in the mid 80s, weakness, nausea and vomiting, history of bloody stool. Patient is afebrile but refuses rectal temperature, given IV fluids, blood pressure currently 95. Laboratory studies today indicate hemoglobin/hematocrit of 7. 6/23.4. This is an peterson contrast to previous values earlier on this month on February 15. No recent colonoscopy or endoscopy is noted. Given this rather dramatic decrease in hematocrit of 10 points in less than 20 days, and articulated history of GI bleed, I will discuss with gastroenterology, and nephrology. Patient will be given desmopressin empirically, and a noncontrast CT scan of the abdomen and pelvis is pending. 03/05/17 14:29 Reevaluation #2: 03/05/17 14:39 Elevated troponin reviewed and appreciated, this is sent prior to my evaluation , the patient has no chest pain, therefore I'm not concerned about acute coronary syndrome, this is most likely secondary to the patient's underlying renal insufficiency. - Consultations Consultation #1: 03/05/17 14:38 d/w renal, Dr Salinas, who agrees with plan for admission and will arrange inpatient dialysis ED Medical Decision Making - Lab Data Result diagrams: 03/05/17 13:24 03/05/17 13:24 Vital Signs 03/05/17 03/05/17 12:35 12:48 Temperature 98.4 F Pulse Rate 86 81 Respiratory 20 18 Rate Blood Pressure 84/52 Blood Pressure 90/47 [Right] O2 Sat by Pulse 98 100 Oximetry Lab Results 03/05/17 03/05/17 Range/Units 13:24 13:24 WBC 8.2 (4.5-11.0) K/mm3 RBC 2.67 L (3.65-5.03) M/mm3 Hgb 7.6 L (11.8-15.2) gm/dl Hct 23.4 L (35.5-45.6) % MCV 88 (84-94) fl MCH 28 (28-32) pg MCHC 33 (32-34) % RDW 17.2 H (13.2-15.2) % Plt Count 208 (140-440) K/mm3 Lymph % (Auto) 18.7 (13.4-35.0) % [place] % (Auto) 9.1 H (0.0-7.3) % Eos % (Auto) 0.9 (0.0-4.3) % Baso % (Auto) 1.1 (0.0-1.8) % Lymph # 1.5 (1.2-5.4) K/mm3 [place] # 0.7 (0.0-0.8) K/mm3 Eos # 0.1 (0.0-0.4) K/mm3 Baso # 0.1 (0.0-0.1) K/mm3 Seg Neutrophils % 70.2 H (40.0-70.0) % Seg Neutrophils # 5.8 (1.8-7.7) K/mm3 Sodium 144 (137-145) mmol/L Potassium 4.8 (3.6-5.0) mmol/L Chloride 95.8 L (98-107) mmol/L Carbon Dioxide 32 H (22-30) mmol/L Anion Gap 21 mmol/L BUN 48 H (9-20) mg/dL Creatinine 8.0 H (0.8-1.5) mg/dL Estimated GFR 8 ml/min BUN/Creatinine Ratio 6 % Glucose 70 L (75-100) mg/dL Calcium 8.7 (8.4-10.2) mg/dL Total Bilirubin 0.20 (0.1-1.2) mg/dL AST 13 (5-40) units/L ALT 8 (7-56) units/L Alkaline Phosphatase 74 (35-129) units/L Troponin T 0.295 H* (0.00-0.029) ng/mL Total Protein 6.7 (6.3-8.2) g/dL Albumin 2.6 L (3.9-5) g/dL Albumin/Globulin Ratio 0.6 % - Radiology Data Radiology results: report reviewed, image reviewed Referring Physician: ARCADIO SKAGGS Patient Name: LUIS Alcocer TUESDAY Date of : 1990 Sex: Male Report Date: 2017-03-05 Report Status: Finalized Findings [facility] [address] [place] [address] Cat Scan Report Signed Patient: TUESDAYLUIS MR#: [id number] : 1990 Acct:[id number] Age/Sex: 27 / M ADM Date: 03/05/17 Loc: ED Attending Dr: Ordering Physician: ARCADIO SKAGGS MD Date of Service: 03/05/17 Procedure(s): CT abdomen pelvis wo con Accession Number(s): [id number] cc: ARCADIO SKAGGS MD FINAL REPORT EXAM: CT ABDOMEN PELVIS WO CON HISTORY: abd pain n/v TECHNIQUE: Noncontrast CT of the abdomen and pelvis performed. No IV or gastrointestinal contrast was administered. Coronal and sagittal reformatted images were obtained. PRIORS: 02/19/2017 FINDINGS: There are coronary artery atherosclerotic calcifications. The visualized aspects of the lung bases are clear. There is marked ascites throughout abdomen and pelvis. There is slightly greater amount of ascites as compared to the prior. Within the limitations of a non-enhanced study, the visualized liver, spleen, pancreas, adrenal glands and kidneys demonstrate no significant abnormalities. There is mild wall thickening involving small bowel loops. Kidneys are atrophic There is no abdominal aortic aneurysm. There is no evidence of intestinal obstruction. The appendix is not specifically identified. There is no free intraperitoneal air. The bladder is compressed/empty. IMPRESSION: Marked ascites. Amount of ascites appears slightly greater as compared to the previous. Atrophic kidneys. Again seen is mild wall thickening involving multiple small bowel loops. This could reflect enteritis. Similar appearance noted on prior. Transcribed By: HARVEY Dictated By: MELI AZUL MD Electronically Authenticated By: MELI AZUL MD Signed Date/Time: 03/05/171043 DD/ 43 - Medical Decision Making Case presented to the Hospital physician, Dr. Stuart, he accepts the patient to the medical service, case presented to gastroenterology, Dr. Soto, he will follow in consultation. Critical care attestation.: If time is entered above; I have spent that time in minutes in the direct care of this critically ill patient, excluding procedure time. ED Disposition Clinical Impression: Volume depletion, End stage renal disease on dialysis, Anemia, Abdominal pain, Ascites, Nausea & vomiting Disposition: DC-09 OP ADMIT IP TO THIS HOSP Is pt being admited?: Yes Condition: Good
[2017-03-05 13:52] LABS: Basophils % (Auto) 1.1 % (0.0-1.8); Eosinophils % (Auto) 0.9 % (0.0-4.3); Hematocrit 23.4 % (35.5-45.6); Hemoglobin 7.6 gm/dl (11.8-15.2); Mean Corpuscular HGB Conc 33 % (32-34); Mean Corpuscular Hemoglobin 28 pg (28-32); Mean Corpuscular Volume 88 fl (84-94); Platelet Count 208 K/mm3 (140-440); Red Blood Count 2.67 M/mm3 (3.65-5.03); Red Cell Distribution Width 17.2 % (13.2-15.2); White Blood Count 8.2 K/mm3 (4.5-11.0)
[2017-03-05 14:00] LABS: Albumin 2.6 g/dL (3.9-5); Albumin/Globulin Ratio 0.6 %; Bilirubin,Total 0.2 mg/dL (0.1-1.2); Calcium 8.7 mg/dL (8.4-10.2); Chloride 95.8 mmol/L (98-107); Potassium 4.8 mmol/L (3.6-5.0); Total Protein 6.7 g/dL (6.3-8.2)
[2017-03-05] MEDS ORDERED: NACL 0.9% 500 ML 500 ML ONE (14:29)
[2017-03-05] MEDS ORDERED: DDAVP IV ONE ×2 (14:29→15:00)
--- NOTE | 2017-03-05 14:48 | Cat Scan Report ---
FINAL REPORT EXAM: CT ABDOMEN PELVIS WO CON HISTORY: abd pain n/v TECHNIQUE: Noncontrast CT of the abdomen and pelvis performed. No IV or gastrointestinal contrast was administered. Coronal and sagittal reformatted images were obtained. PRIORS: 02/19/2017 FINDINGS: There are coronary artery atherosclerotic calcifications. The visualized aspects of the lung bases are clear. There is marked ascites throughout abdomen and pelvis. There is slightly greater amount of ascites as compared to the prior. Within the limitations of a non-enhanced study, the visualized liver, spleen, pancreas, adrenal glands and kidneys demonstrate no significant abnormalities. There is mild wall thickening involving small bowel loops. Kidneys are atrophic There is no abdominal aortic aneurysm. There is no evidence of intestinal obstruction. The appendix is not specifically identified. There is no free intraperitoneal air. The bladder is compressed/empty. IMPRESSION: Marked ascites. Amount of ascites appears slightly greater as compared to the previous. Atrophic kidneys. Again seen is mild wall thickening involving multiple small bowel loops. This could reflect enteritis. Similar appearance noted on prior.
[2017-03-05] MEDS ORDERED: NACL 0.9% IV ONE (15:00)
[2017-03-05] MEDS ORDERED: PROVENTIL IH PRN (15:14)
[2017-03-05] MEDS ORDERED: MILK OF MAGNESIA PO PRN (15:14)
[2017-03-05] MEDS ORDERED: ZOFRAN IV PRN (15:14)
[2017-03-05] MEDS ORDERED: DULCOLAX PR PRN (15:14)
[2017-03-05] MEDS ORDERED: TYLENOL PO PRN (15:14)
[2017-03-05] MEDS ORDERED: NACL 0.9% 500 ML 500 ML IV ONE (15:16)
--- NOTE | 2017-03-05 15:22 | History and Physical Report ---
History of Present Illness Chief complaint: I feel weak History of present illness: 27 YO Male with ESRD on HD(T,R,Sa), Noncompliance presents to ED for evaluation. Pt was in his usual state of health, and presented to dialysis clinic today for his scheduled dialysis. Pt states that he got dizzy before his dialysis and felt like he was going to pass out. Pt was found to have low blood pressure 84/52. EMS notified and patient transported to [facility] for further care and evaluation. Pt denies fever, chills, CP, Palpitations, NVD, recent ill contacts, productive cough, BRBPR, Headache, vertigo, or recent ill contacts. Pt seen and evaluated in ED and found to have hypotension, and symptomatic anemia. GI consulted in ED. Past History Past Medical History: ESRD Past Surgical History: Other (PD catheter placement) Social history: single Family history: no significant family history (reviewed) Medications and Allergies Allergies Allergy/AdvReac Type Severity Reaction Status Date / Time heparin Allergy lowers Verified 02/19/17 13:22 platelets Home Medications Medication Instructions Recorded Confirmed Last Taken Type Carvedilol 12.5 mg PO BID 02/15/17 02/15/17 Unknown History Clonidine 0.3 mg PO TID 02/15/17 02/15/17 Unknown History Colace CAP 100 mg PO QDAY 02/15/17 02/15/17 Unknown History Dialyvite 800-Zinc 15 mg Tab 800 mg PO QDAY 02/15/17 02/15/17 Unknown History Flexeril 10 MG TAB 10 mg PO QHS 02/15/17 02/15/17 Unknown History Losartan Potassium 100 mg PO QDAY 02/15/17 02/15/17 Unknown History Nexium 40 mg PO QAM 02/15/17 02/15/17 Unknown History Vitamin D3 2,000 unit 2,000 units PO QDAY 02/15/17 02/15/17 Unknown History Zofran TAB 4 mg PO PRN PRN MDD nausea 02/15/17 02/15/17 Unknown History Zoloft 100 mg PO DAILY 02/15/17 02/15/17 Unknown History hydrOXYzine 25 mg PO PRN PRN 02/15/17 02/15/17 Unknown History traZODone 100 mg PO QPM 02/15/17 02/15/17 Unknown History Active Meds: Active Medications Acetaminophen (Tylenol) 650 mg PO Q4H PRN PRN Reason: Pain MILD(1-3)/Fever >100.5/JENKINS Albuterol (Proventil) 2.5 mg IH Q3HRT PRN PRN Reason: Shortness Of Breath Bisacodyl (Dulcolax) 10 mg MD QDAY PRN PRN Reason: Constipation unrelieved by MOM Desmopressin Acetate 19.8 mcg/ (Sodium Chloride) 54.95 mls @ 100 mls/hr IV ONCE.ED ONE Stop: 03/05/17 15:32 Magnesium Hydroxide (Milk Of Magnesia) 30 ml PO Q4H PRN PRN Reason: Constipation Ondansetron HCl (Zofran) 4 mg IV Q8H PRN PRN Reason: N/V unrelieved by Reglan Pantoprazole Sodium (Protonix) 40 mg IV BID CHONG Review of Systems Constitutional: weakness, no weight loss, no weight gain, no fever, no chills Cardiovascular: lightheadedness, no chest pain, no orthopnea, no palpitations, no rapid/irregular heart beat, no edema Respiratory: no cough, no cough with sputum, no excessive sputum, no hemoptysis , no shortness of breath Gastrointestinal: no nausea, no vomiting, no diarrhea, no constipation Genitourinary Male: no dysuria, no hematuria, no flank pain, no discharge, no urinary frequency, no urinary hesitancy Rectal: no pain, no incontinence, no bleeding Musculoskeletal: no neck stiffness, no neck pain, no shooting arm pain, no arm numbness/tingling, no low back pain Integumentary: no rash, no pruritis, no redness, no sores, no wounds Neurological: no transient paralysis, no paralysis, no weakness, no parathesias , no numbness, no tingling, no seizures, no syncope Psychiatric: no anxiety, no memory loss, no change in sleep habits, no sleep disturbances, no insomnia, no hypersomnia, no change in appetite, no change in libido Endocrine: no cold intolerance, no heat intolerance, no polyphagia, no excessive thirst, no polydipsia, no polyuria Hematologic/Lymphatic: no easy bruising, no easy bleeding Allergic/Immunologic: no urticaria, no allergic rhinitis, no wheezing Exam - Constitutional Vitals: Temp Pulse Resp BP Pulse Ox 98.4 F 81 18 90/47 100 03/05/17 12:48 03/05/17 12:48 03/05/17 12:48 03/05/17 12:48 03/05/17 12:48 General appearance: Present: mild distress, cachectic - EENT Eyes: Present: PERRL ENT: hearing intact, clear oral mucosa - Neck Neck: Present: supple, normal ROM - Respiratory Respiratory effort: normal Respiratory: bilateral: CTA - Cardiovascular Heart Sounds: Present: S1 & S2. Absent: rub, click - Extremities Extremities: pulses symmetrical, No edema - Abdominal General gastrointestinal: Present: soft, tender, non-distended. Absent: hepatomegaly, splenomegaly, mass, hernia Male genitourinary: Present: normal - Integumentary Integumentary: Present: clear, warm, dry - Musculoskeletal Musculoskeletal: generalized weakness - Psychiatric Psychiatric: appropriate mood/affect, intact judgment & insight - Neurologic Neurologic: CNII-XII intact, moves all extremities Results - Labs CBC & Chem 7: 03/05/17 13:24 03/05/17 13:24 Labs: Abnormal lab results 03/05/17 03/05/17 Range/Units 13:24 13:24 RBC 2.67 L (3.65-5.03) M/mm3 Hgb 7.6 L (11.8-15.2) gm/dl Hct 23.4 L (35.5-45.6) % RDW 17.2 H (13.2-15.2) % Holt % (Auto) 9.1 H (0.0-7.3) % Seg Neutrophils % 70.2 H (40.0-70.0) % Chloride 95.8 L (98-107) mmol/L Carbon Dioxide 32 H (22-30) mmol/L BUN 48 H (9-20) mg/dL Creatinine 8.0 H (0.8-1.5) mg/dL Glucose 70 L (75-100) mg/dL Troponin T 0.295 H* (0.00-0.029) ng/mL Albumin 2.6 L (3.9-5) g/dL Assessment and Plan - Patient Problems (1) End stage renal disease on dialysis Current Visit: Yes Status: Acute Plan to address problem: Nephrology consulted in ED, IVF resuscitation, monitor uop q shift, dialysis as per renal team. (2) Hypotension Current Visit: Yes Status: Acute Plan to address problem: IVF resuscitation, PRBC transfusion, supportive care, (3) Symptomatic anemia Current Visit: Yes Status: Acute Plan to address problem: PRBC transfusion, serial cbc, supportive care. (4) GI bleed Current Visit: Yes Status: Acute Plan to address problem: GI consulted, serial abdominal exam, (5) DVT prophylaxis Current Visit: Yes Status: Acute
--- NOTE | 2017-03-05 16:01 | Gastroenterology Consultation ---
History of Present Illness - Reason for Consult Consult date: 03/05/17 Anemia Requesting physician: ARCADIO SKAGGS - History of Present Illness The patient is a 27 yo male seen with his family for anemia. He came to the ER for low BP that led to him missing HD today (ESRD for about 3-4 years). He has had no emesis or blood in his stools since he was last here about 3 weeks ago ( for paracentesis; cryptogenic ascites). A CT scan showed no peritoneal bleeding. He has intermittent blood in his stool and he had multiple non- bloody emesis events yesterday. He was guaiac (-) in the ER. He has a hx of blood thinners (coumadin) in the past; currently he is on none. He has a hx of multiple SBOs, felt to be adhesion-related from prior PD catheters. He has chronic abdominal pain and N/V from the adhesions. He adamantly declines blood transfusion and does not want to do a bleeding scan either, because "it's too much to process at present." He has had 3 EGDs and 3 colonoscopies (his report ) by our group/Dr Lang's group in the last 3-4 years (but he is not clear if for anemia, or to evaluate for IBD given chronic SB wall thickening). Past History Past Medical History: anemia, ESRD, hypertension, other (HIT) Past Surgical History: Other (PD catheter, HD access) Social history: smoking Family history: no significant family history Medications and Allergies Allergies Allergy/AdvReac Type Severity Reaction Status Date / Time heparin Allergy lowers Verified 02/19/17 13:22 platelets Home Medications Medication Instructions Recorded Confirmed Last Taken Type Carvedilol 12.5 mg PO BID 02/15/17 02/15/17 Unknown History Clonidine 0.3 mg PO TID 02/15/17 02/15/17 Unknown History Colace CAP 100 mg PO QDAY 02/15/17 02/15/17 Unknown History Dialyvite 800-Zinc 15 mg Tab 800 mg PO QDAY 02/15/17 02/15/17 Unknown History Flexeril 10 MG TAB 10 mg PO QHS 02/15/17 02/15/17 Unknown History Losartan Potassium 100 mg PO QDAY 02/15/17 02/15/17 Unknown History Nexium 40 mg PO QAM 02/15/17 02/15/17 Unknown History Vitamin D3 2,000 unit 2,000 units PO QDAY 02/15/17 02/15/17 Unknown History Zofran TAB 4 mg PO PRN PRN MDD nausea 02/15/17 02/15/17 Unknown History Zoloft 100 mg PO DAILY 02/15/17 02/15/17 Unknown History hydrOXYzine 25 mg PO PRN PRN 02/15/17 02/15/17 Unknown History traZODone 100 mg PO QPM 02/15/17 02/15/17 Unknown History Active Meds: Active Medications Acetaminophen (Tylenol) 650 mg PO Q4H PRN PRN Reason: Pain MILD(1-3)/Fever >100.5/JENKINS Albuterol (Proventil) 2.5 mg IH Q3HRT PRN PRN Reason: Shortness Of Breath Bisacodyl (Dulcolax) 10 mg MD QDAY PRN PRN Reason: Constipation unrelieved by MOM Magnesium Hydroxide (Milk Of Magnesia) 30 ml PO Q4H PRN PRN Reason: Constipation Ondansetron HCl (Zofran) 4 mg IV Q8H PRN PRN Reason: N/V unrelieved by Reglan Pantoprazole Sodium (Protonix) 40 mg IV BID CHONG I have reviewed and reconciled medications. Review of Systems - Review of Systems All systems: negative (as noted in the HPI.) Exam - Constitutional Vital Signs: Temp Pulse Resp BP Pulse Ox 98.4 F 64 10 L 117/76 97 03/05/17 12:48 03/05/17 15:30 03/05/17 15:30 03/05/17 15:30 03/05/17 15:30 General appearance: no acute distress - EENT Eyes: PERRL, EOM intact ENT: clear oral mucosa, poor dentition, no thrush - Neck Neck: supple, normal ROM - Respiratory Respiratory effort: normal Respiratory: bilateral: CTA - Cardiovascular Rhythm: regular Heart Sounds: Present: S1 & S2 - Gastrointestinal General gastrointestinal: Present: soft, non-tender, distended (Moderate ascites ) - Integumentary Integumentary: Present: clear, warm, dry - Neurologic Neurological: alert and oriented x3 - Labs CBC & Chem 7: 03/05/17 13:24 03/05/17 13:24 Lab Results: Laboratory Results - last 24 hr 03/05/17 03/05/17 03/05/17 13:24 13:24 14:44 WBC 8.2 RBC 2.67 L Hgb 7.6 L Hct 23.4 L MCV 88 MCH 28 MCHC 33 RDW 17.2 H Plt Count 208 Lymph % (Auto) 18.7 [place] % (Auto) 9.1 H Eos % (Auto) 0.9 Baso % (Auto) 1.1 Lymph # 1.5 [place] # 0.7 Eos # 0.1 Baso # 0.1 Seg Neutrophils % 70.2 H Seg Neutrophils # 5.8 Sodium 144 Potassium 4.8 Chloride 95.8 L Carbon Dioxide 32 H Anion Gap 21 BUN 48 H Creatinine 8.0 H Estimated GFR 8 BUN/Creatinine Ratio 6 Glucose 70 L Calcium 8.7 Total Bilirubin 0.20 AST 13 ALT 8 Alkaline Phosphatase 74 Troponin T 0.295 H* Total Protein 6.7 Albumin 2.6 L Albumin/Globulin Ratio 0.6 Triglycerides 86 Cholesterol 110 LDL Cholesterol Direct 53 HDL Cholesterol 40 Cholesterol/HDL Ratio 2.75 Blood Type B POSITIVE Antibody Screen Negative Crossmatch See Detail Assessment and Plan - Patient Problems (1) Anemia Current Visit: Yes Status: Acute Plan to address problem: - Patient declines blood transfusion or bleeding scan; has had a negative EGD/ Colon x 3 each in the last 3-4 years (per patient). - May have oozing of blood/ulceration from small bowel inflammation/ulcerations given wall thickening seen on CT. - If bleed scan negative, and hct stable, patient may d/c home for further w/u; needs a capsule endoscopy, but there would be a relative high likelihood it would get stuck in the small bowel and require surgery. (2) Abnormal CT of the abdomen Current Visit: Yes Status: Acute Plan to address problem: - Small bowel changes likely from chronic adhesion disease; doubt IBD given negative endoscopies in the past. - Advance diet as tolerated (vomiting yesterday, but none today and wants to eat ).
[2017-03-05] MEDS ORDERED: ATIVAN IV ONE (16:07)
[2017-03-05] MEDS ORDERED: ATIVAN ONE (16:10)
[2017-03-05] MEDS ORDERED: PROTONIX PO ONE (16:10)
[2017-03-05] MEDS: PROTONIX PO SCH (20:16)
[2017-03-05] MEDS ORDERED: PROTONIX IV SCH (22:00)
[2017-03-05] MEDS: MORPHINE IV PRN (22:31)
[2017-03-06] MEDS: MORPHINE IV PRN ×4 (03:13→19:59)
[2017-03-06] MEDS ORDERED: PROTONIX PO ONE (10:00)
[2017-03-06] MEDS ORDERED: FLUSH HEPARIN IV ONE (10:07)
[2017-03-06] MEDS: PROTONIX PO SCH (10:29)
[2017-03-06 10:30] LABS: Basophils % (Auto) 0.9 % (0.0-1.8); Eosinophils % (Auto) 1.9 % (0.0-4.3); Hemoglobin 6.7 gm/dl (11.8-15.2); Mean Corpuscular HGB Conc 32 % (32-34); Mean Corpuscular Hemoglobin 28 pg (28-32); Mean Corpuscular Volume 86 fl (84-94); Platelet Count 211 K/mm3 (140-440); Red Blood Count 2.43 M/mm3 (3.65-5.03); Red Cell Distribution Width 17.1 % (13.2-15.2); White Blood Count 7.4 K/mm3 (4.5-11.0)
[2017-03-06 10:48] LABS: Calcium 8.5 mg/dL (8.4-10.2); Chloride 93.2 mmol/L (98-107); Potassium 5.5 mmol/L (3.6-5.0)
--- NOTE | 2017-03-06 10:51 | Consultation ---
History of Present Illness - Reason for Consult Consult date: 03/06/17 end stage renal disease Requesting physician: ANDI BURK - History of Present Illness 27 YO Male with ESRD on HD(T,,), Noncompliance presents to ED for evaluation. Pt was in his usual state of health, and presented to dialysis clinic yesterday for his scheduled dialysis. Pt states that he got dizzy before his dialysis and felt like he was going to pass out. Pt was found to have low blood pressure 84/52. EMS notified and patient transported to [facility] for further care and evaluation. Pt denies fever, chills, CP, Palpitations, recent ill contacts, productive cough, BRBPR, Headache, vertigo, or recent ill contacts. Pt seen and evaluated in ED and found to have hypotension, and symptomatic anemia. His hemoglobin was also noted to be lower . He has been having some nausea and vomiting as well. Past History Past Medical History: ESRD, hypertension, other (history of HIT) Past Surgical History: Other (PD catheter placement) Social history: single Family history: no significant family history (reviewed) Medications and Allergies Allergies Allergy/AdvReac Type Severity Reaction Status Date / Time heparin Allergy lowers Verified 02/19/17 13:22 platelets Home Medications Medication Instructions Recorded Confirmed Last Taken Type Carvedilol 12.5 mg PO BID 02/15/17 02/15/17 Unknown History Clonidine 0.3 mg PO TID 02/15/17 02/15/17 Unknown History Colace CAP 100 mg PO QDAY 02/15/17 02/15/17 Unknown History Dialyvite 800-Zinc 15 mg Tab 800 mg PO QDAY 02/15/17 02/15/17 Unknown History Flexeril 10 MG TAB 10 mg PO QHS 02/15/17 02/15/17 Unknown History Losartan Potassium 100 mg PO QDAY 02/15/17 02/15/17 Unknown History Nexium 40 mg PO QAM 02/15/17 02/15/17 Unknown History Vitamin D3 2,000 unit 2,000 units PO QDAY 02/15/17 02/15/17 Unknown History Zofran TAB 4 mg PO PRN PRN MDD nausea 02/15/17 02/15/17 Unknown History Zoloft 100 mg PO DAILY 02/15/17 02/15/17 Unknown History hydrOXYzine 25 mg PO PRN PRN 02/15/17 02/15/17 Unknown History traZODone 100 mg PO QPM 02/15/17 02/15/17 Unknown History Active Meds: Active Medications Acetaminophen (Tylenol) 650 mg PO Q4H PRN PRN Reason: Pain MILD(1-3)/Fever >100.5/JENKINS Last Admin: 03/05/17 20:16 Dose: 650 mg Albuterol (Proventil) 2.5 mg IH Q3HRT PRN PRN Reason: Shortness Of Breath Bisacodyl (Dulcolax) 10 mg [place] QDAY PRN PRN Reason: Constipation unrelieved by MOM Sodium Chloride (Nacl 0.9% 250ml) 250 mls @ 5 mls/hr IV ONCE ONE Stop: 03/07/17 21:00 Last Admin: 03/06/17 04:31 Dose: Not Given Morphine Sulfate (Morphine) 2 mg IV Q3H PRN PRN Reason: Pain, Moderate (4-6) Last Admin: 03/06/17 10:33 Dose: 2 mg Ondansetron HCl (Zofran) 4 mg IV Q3H PRN PRN Reason: Nausea And Vomiting Pantoprazole Sodium (Protonix) 40 mg PO QDAY CHONG Last Admin: 03/06/17 10:29 Dose: 40 mg Review of Systems All systems: negative (negative except as noted above) Exam - Vital Signs Vital signs: Vital Signs Pulse Resp BP Pulse Ox 86 20 84/52 98 03/05/17 12:35 03/05/17 12:35 03/05/17 12:35 03/05/17 12:35 - General Appearance General appearance: chronically ill, frail, other (pleasant male) EENT: PERRL, mucous membranes moist Neck: Present: neck supple Respiratory: Clear to Ascultation Heart: regular, normal heart rate Gastrointestinal: Present: normoactive bowel sounds, other (ascites present.) Integumentary: other (no edema. AV fistula in his upper arm. Good bruit and thrill) Results - Lab Results 03/06/17 10:12 03/05/17 13:24 Most recent lab results Calcium 8.7 mg/dL (8.4-10.2) 03/05/17 13:24 Assessment and Plan Impression * End-stage renal disease on maintenance hemodialysis * Symptomatic anemia * Hypotension * Hyperkalemia * Ascites Recommendations * Patient could not be dialyzed yesterday because of hypotension * He is however getting hyperkalemic and is in need of blood transfusion. Shall dialyze him today. * Adjust diet and meds for ESRD state * No IV, BP or venipuncture in his access arm. * Avoid nephrotoxins * Further plan as per GI services * Thank you very much for the consultation. Shall follow along with you
[2017-03-06] MEDS ORDERED: NACL 0.9% 100 ML IV PRN (10:59)
--- NOTE | 2017-03-06 11:42 | Gastroenterology Progress Note ---
Assessment and Plan - Patient Problems (1) Anemia Current Visit: Yes Status: Acute Plan to address problem: - Patient declines blood transfusion but consents to a bleeding scan; has had a negative EGD/Colon x 3 each in the last 3-4 years (per patient). - May have oozing of blood/ulceration from small bowel inflammation/ulcerations given wall thickening seen on CT (I suspect from chronic adhesion disease). - If bleed scan negative, and hct stable, patient may d/c home for further w/u; needs a capsule endoscopy, but there would be a relative high likelihood it would get stuck in the small bowel and require surgery. (2) Abnormal CT of the abdomen Current Visit: Yes Status: Acute Plan to address problem: - Small bowel changes likely from chronic adhesion disease; doubt IBD given negative endoscopies in the past. - Advance diet as tolerated (no vomiting for 48 hours). Subjective Date of service: 03/06/17 Principal diagnosis: Anemia Interval history: The patient reports no emesis or bloody stools overnight. He has no severe abdominal pain, just his chronic distention. Objective - Constitutional Vitals: Temp Pulse Resp BP Pulse Ox 97.6 F 75 21 131/87 100 03/06/17 04:56 03/06/17 04:56 03/06/17 04:56 03/06/17 04:56 03/06/17 10:00 General appearance: no acute distress - EENT ENT: hearing intact - Respiratory Respiratory effort: normal Respiratory: bilateral: CTA - Cardiovascular Rhythm: regular Heart Sounds: Present: S1 & S2 - Gastrointestinal General gastrointestinal: Present: soft, non-tender, distended (Moderate ascites without change) - Labs CBC & Chem 7: 03/06/17 10:12 03/06/17 10:12 Labs: Laboratory Results - last 24 hr 03/05/17 03/05/17 03/05/17 13:24 13:24 14:44 WBC 8.2 RBC 2.67 L Hgb 7.6 L Hct 23.4 L MCV 88 MCH 28 MCHC 33 RDW 17.2 H Plt Count 208 Lymph % (Auto) 18.7 [place] % (Auto) 9.1 H Eos % (Auto) 0.9 Baso % (Auto) 1.1 Lymph # 1.5 [place] # 0.7 Eos # 0.1 Baso # 0.1 Seg Neutrophils % 70.2 H Seg Neutrophils # 5.8 Sodium 144 Potassium 4.8 Chloride 95.8 L Carbon Dioxide 32 H Anion Gap 21 BUN 48 H Creatinine 8.0 H Estimated GFR 8 BUN/Creatinine Ratio 6 Glucose 70 L Calcium 8.7 Total Bilirubin 0.20 AST 13 ALT 8 Alkaline Phosphatase 74 Troponin T 0.295 H* Total Protein 6.7 Albumin 2.6 L Albumin/Globulin Ratio 0.6 Triglycerides 86 Cholesterol 110 LDL Cholesterol Direct 53 HDL Cholesterol 40 Cholesterol/HDL Ratio 2.75 Blood Type B POSITIVE Antibody Screen Negative Crossmatch See Detail 03/06/17 03/06/17 10:12 10:12 WBC 7.4 RBC 2.43 L Hgb 6.7 L Hct 21.0 L MCV 86 MCH 28 MCHC 32 RDW 17.1 H Plt Count 211 Lymph % (Auto) 21.1 [place] % (Auto) 10.5 H Eos % (Auto) 1.9 Baso % (Auto) 0.9 Lymph # 1.6 [place] # 0.8 Eos # 0.1 Baso # 0.1 Seg Neutrophils % 65.6 Seg Neutrophils # 4.8 Sodium 141 Potassium 5.5 H Chloride 93.2 L Carbon Dioxide 30 Anion Gap 23 BUN 56 H Creatinine 8.6 H Estimated GFR 7 BUN/Creatinine Ratio 7 Glucose 83 Calcium 8.5 Total Bilirubin AST ALT Alkaline Phosphatase Troponin T Total Protein Albumin Albumin/Globulin Ratio Triglycerides Cholesterol LDL Cholesterol Direct HDL Cholesterol Cholesterol/HDL Ratio Blood Type Antibody Screen Crossmatch
--- NOTE | 2017-03-06 14:34 | Progress Note ---
Assessment and Plan Assessment and plan: Severe anemia: Hemoglobin 6.7 Patient has refused RBC transfusion GI note reviewed The monitor his hemoglobin and hematocrit For RBC scan He states he had EGD and colonoscopy 3 in the past several years Hyperkalemia:2/2 ESRD, patient is refusing hemodialysis today End-stage renal disease: nephrology note reviewed. He needs hemodialysis but he is refusing Hypotension: Resolved Chronic pain: Continue morphine IV every 3 hours when necessary Subjective Date of service: 03/06/17 Principal diagnosis: Anemia Interval history: Agent is alert and oriented Not in any distress Complains of back pain and abdominal pain states it's chronic Wants morphine dose increased He is refusing PRBC transfusion and also is refusing hemodialysis All interdisciplinary notes reviewed and appreciated Labs reviewed Objective - Constitutional Vitals: Vital Signs - 12hr 03/06/17 03/06/17 04:56 10:00 Temperature 97.6 F Pulse Rate 75 Respiratory 21 Rate Blood Pressure 131/87 O2 Sat by Pulse 96 100 Oximetry General appearance: Present: no acute distress - EENT Eyes: PERRL, EOM intact ENT: hearing intact, clear oral mucosa - Neck Neck: supple, normal ROM, no masses or JVD - Respiratory Respiratory effort: normal Respiratory: bilateral: CTA - Cardiovascular Rhythm: regular Heart Sounds: Present: S1 & S2 Extremities: No edema - Gastrointestinal General gastrointestinal: Present: soft, non-tender - Integumentary Integumentary: clear, warm - Musculoskeletal Musculoskeletal: strength equal bilaterally - Neurologic Neurologic: no focal deficits - Psychiatric Psychiatric: appropriate mood/affect - Labs CBC & Chem 7: 03/06/17 10:12 03/06/17 10:12 Labs: Abnormal lab results 03/05/17 03/06/17 03/06/17 Range/Units 14:44 10:12 10:12 RBC 2.43 L (3.65-5.03) M/mm3 Hgb 6.7 L (11.8-15.2) gm/dl Hct 21.0 L (35.5-45.6) % RDW 17.1 H (13.2-15.2) % [place] % (Auto) 10.5 H (0.0-7.3) % Potassium 5.5 H (3.6-5.0) mmol/L Chloride 93.2 L (98-107) mmol/L BUN 56 H (9-20) mg/dL Creatinine 8.6 H (0.8-1.5) mg/dL Crossmatch See Detail
--- NOTE | 2017-03-06 17:12 | Nuclear Medicine Report ---
FINAL REPORT EXAM: NM GI BLEEDING SCAN HISTORY: gi bleed TECHNIQUE: Nuclear tagged red blood cell scan Study performed following intravenous administration ultra tagged technetium tagged red blood cells with imaging obtained up to 3 hour delay post-injection PRIORS: None. FINDINGS: There is activity seen within major vascular structures, liver-spleen in heart following IV administration of the radiotracer.. No evidence for progressive radiotracer accumulation within bowel loops. Appearance is stable up to 3 hour delay IMPRESSION: No scintigraphic evidence for active GI hemorrhage
[2017-03-06] MEDS: ZOFRAN IV PRN (20:00)
[2017-03-07] MEDS: MORPHINE IV PRN ×4 (03:00→20:36)
[2017-03-07] MEDS: ZOFRAN IV PRN ×2 (03:00→15:39)
[2017-03-07 05:33] LABS: Basophils % (Auto) 1.1 % (0.0-1.8); Eosinophils % (Auto) 1.5 % (0.0-4.3); Hematocrit 24.4 % (35.5-45.6); Hemoglobin 7.8 gm/dl (11.8-15.2); Mean Corpuscular HGB Conc 32 % (32-34); Mean Corpuscular Hemoglobin 27 pg (28-32); Mean Corpuscular Volume 86 fl (84-94); Platelet Count 210 K/mm3 (140-440); Red Blood Count 2.85 M/mm3 (3.65-5.03); Red Cell Distribution Width 17.2 % (13.2-15.2); White Blood Count 6.9 K/mm3 (4.5-11.0)
[2017-03-07 05:52] LABS: Calcium 8.4 mg/dL (8.4-10.2); Chloride 92.1 mmol/L (98-107); Potassium 5.7 mmol/L (3.6-5.0)
[2017-03-07] MEDS ORDERED: NACL 0.9% 100 ML IV PRN ×2 (09:00→10:25)
[2017-03-07] MEDS: PROTONIX PO SCH (09:03)
[2017-03-07] MEDS ORDERED: BENADRYL IV PRN (10:25)
--- NOTE | 2017-03-07 10:46 | Progress Note ---
Assessment and Plan Impression * End-stage renal disease on maintenance hemodialysis * Symptomatic anemia * Hypotension * Hyperkalemia * Ascites Recommendations * Patient is currently undergoing hemodialysis. Tolerating well. * His potassium is noted to be higher. Hopefully dialysis will correct it. * Patient is receiving packed RBC transfusion * Adjust diet and meds for ESRD state * No IV, BP or venipuncture in his access arm. * Avoid nephrotoxins * Discussed with GI services. Patient is refusing to undergo a prep for colonoscopy at this time Subjective Date of service: 03/07/17 Principal diagnosis: Anemia Interval history: Patient refused dialysis yesterday. Undergoing dialysis at this time. Receiving packed RBC transfusion. Objective - Vital Signs Vital signs: Vital Signs - 12hr 03/06/17 03/07/17 03/07/17 23:55 03:41 09:44 Temperature 98.3 F 98.4 F 97.8 F Pulse Rate 85 86 81 Respiratory 18 18 18 Rate Blood Pressure 170/108 168/108 171/108 O2 Sat by Pulse 96 93 Oximetry 03/07/17 10:15 Temperature 97.7 F Pulse Rate 77 Respiratory 18 Rate Blood Pressure 171/109 O2 Sat by Pulse Oximetry - General Appearance General appearance: chronically ill, frail EENT: PERRL, mucous membranes moist Neck: no JVD, no thyromegaly, no carotid bruit, supple Respiratory: Present: Clear to Ascultation Cardiology: regular, normal heart rate Gastrointestinal: normoactive bowel sounds, distended, other (ascites present) Integumentary: other (AV access in his upper arm. Cannulated for dialysis) - Lab 03/07/17 05:17 03/07/17 05:17 Most recent lab results Calcium 8.4 mg/dL (8.4-10.2) 03/07/17 05:17
--- NOTE | 2017-03-07 11:19 | Gastroenterology Progress Note ---
Assessment and Plan - Patient Problems (1) Anemia Current Visit: Yes Status: Acute Plan to address problem: - Patient declines blood transfusion but consents to a bleeding scan (which was negative); has had a negative EGD/Colon x 3 each in the last 3-4 years (per patient). - I have discussed repeat upper/lower endoscopy with the patient, and he declines; he wants to go home and have these done as an outpatient. - I addressed the patient's noncompliance with medical followup, and stated that even though there is no gross bleeding at present and his hct is stable, that he could have a potentially harmful lesion internally. He voiced understanding, and still declined endoscopy at present. (2) Abnormal CT of the abdomen Current Visit: Yes Status: Acute Plan to address problem: - Small bowel changes likely from chronic adhesion disease; doubt IBD given negative endoscopies in the past. - Advance diet as tolerated (no vomiting for 48 hours). Subjective Date of service: 03/07/17 Principal diagnosis: Anemia Interval history: The patient's bleeding scan was negative, and he has not had a BM for 2 days. He has no N/V/abdominal pain. When I brought up the possibility of a repeat colonoscopy (with EGD), he adamantly refused, and wants to eat regular food today; he requested to be discharged to have the procedures done as an outpatient (despite his history of non-compliance in the past). Objective - Constitutional Vitals: Temp Pulse Resp BP Pulse Ox 97.7 F 67 18 194/113 93 03/07/17 10:15 03/07/17 11:00 03/07/17 10:30 03/07/17 11:00 03/07/17 03:41 General appearance: no acute distress - Neck Neck: supple, normal ROM - Respiratory Respiratory effort: normal Respiratory: bilateral: CTA - Cardiovascular Rhythm: regular Heart Sounds: Present: S1 & S2 - Gastrointestinal General gastrointestinal: Present: soft, non-tender, distended (Moderate ascites ) - Labs CBC & Chem 7: 03/07/17 05:17 03/07/17 05:17 Labs: Laboratory Results - last 24 hr 03/05/17 03/07/17 03/07/17 14:44 05:17 05:17 WBC 6.9 RBC 2.85 L Hgb 7.8 L Hct 24.4 L MCV 86 MCH 27 L MCHC 32 RDW 17.2 H Plt Count 210 Lymph % (Auto) 18.8 [place] % (Auto) 9.8 H Eos % (Auto) 1.5 Baso % (Auto) 1.1 Lymph # 1.3 [place] # 0.7 Eos # 0.1 Baso # 0.1 Seg Neutrophils % 68.8 Seg Neutrophils # 4.7 Sodium 139 Potassium 5.7 H Chloride 92.1 L Carbon Dioxide 27 Anion Gap 26 BUN 63 H Creatinine 9.9 H Estimated GFR 6 BUN/Creatinine Ratio 6 Glucose 83 Calcium 8.4 Blood Type B POSITIVE Antibody Screen Negative Crossmatch See Detail
--- NOTE | 2017-03-07 11:56 | Progress Note ---
Assessment and Plan Assessment and plan: accelerated HTN: his home meds reconciled and will start him on clonidine ( at a decreased dose) and BB Severe anemia: Hemoglobin improved to 7.8 GI note reviewed monitor his hemoglobin and hematocrit RBC bleeding scan is negative He states he had EGD and colonoscopy 3 in the past several years and has refused any scope at this time Hyperkalemia:2/2 ESRD, patient is willing for hemodialysis today End-stage renal disease: nephrology note reviewed. Hypotension: Resolved Chronic pain: Continue morphine IV every 3 hours when necessary Subjective Date of service: 03/07/17 Principal diagnosis: Anemia Interval history: patient is alert and oriented Not in any distress He is scheduled for HD and agrees to get RBC transfusion but labs reviewed. H/H is up today to 7.8 and K is 5.7 All interdisciplinary notes reviewed and appreciated Labs reviewed Objective - Constitutional Vitals: Vital Signs - 12hr 03/06/17 03/07/17 03/07/17 23:55 03:41 09:10 Temperature 98.3 F 98.4 F 97.8 F Pulse Rate 85 86 74 Respiratory 18 18 18 Rate Blood Pressure 170/108 168/108 175/103 O2 Sat by Pulse 96 93 Oximetry 03/07/17 03/07/17 03/07/17 09:15 09:30 09:44 Temperature 97.8 F Pulse Rate 79 76 81 Respiratory 18 Rate Blood Pressure 185/114 162/101 171/108 O2 Sat by Pulse Oximetry 03/07/17 03/07/17 03/07/17 09:45 10:00 10:15 Temperature 97.7 F Pulse Rate 81 72 77 Respiratory 18 Rate Blood Pressure 171/108 181/111 171/109 O2 Sat by Pulse Oximetry 03/07/17 03/07/17 03/07/17 10:30 10:45 11:00 Temperature Pulse Rate 72 64 67 Respiratory 18 Rate Blood Pressure 182/111 195/105 194/113 O2 Sat by Pulse Oximetry General appearance: Present: no acute distress - EENT Eyes: PERRL, EOM intact ENT: hearing intact, clear oral mucosa - Neck Neck: supple, normal ROM, no masses or JVD - Respiratory Respiratory effort: normal Respiratory: bilateral: CTA - Cardiovascular Rhythm: regular Heart Sounds: Present: S1 & S2 Extremities: No edema - Gastrointestinal General gastrointestinal: Present: soft, non-tender. Absent: hepatomegaly, splenomegaly Rectal Exam: deferred - Integumentary Integumentary: clear - Musculoskeletal Musculoskeletal: strength equal bilaterally - Neurologic Neurologic: no focal deficits - Labs CBC & Chem 7: 03/07/17 05:17 12 05:17 Labs: Abnormal lab results 03/05/17 03/07/17 03/07/17 Range/Units 14:44 05:17 05:17 RBC 2.85 L (3.65-5.03) M/mm3 Hgb 7.8 L (11.8-15.2) gm/dl Hct 24.4 L (35.5-45.6) % MCH 27 L (28-32) pg RDW 17.2 H (13.2-15.2) % [place] % (Auto) 9.8 H (0.0-7.3) % Potassium 5.7 H (3.6-5.0) mmol/L Chloride 92.1 L (98-107) mmol/L BUN 63 H (9-20) mg/dL Creatinine 9.9 H (0.8-1.5) mg/dL Crossmatch See Detail
[2017-03-07] MEDS ORDERED: NON-FORMULARY (Clonidine 0.1 MG) PO SCH (14:00)
[2017-03-07] MEDS: CATAPRES PO SCH ×2 (15:22→22:18)
[2017-03-07] MEDS ORDERED: CATAPRES PO ONE (16:00)
[2017-03-07] MEDS ORDERED: NON-FORMULARY (Trazodone 100 MG) PO SCH (18:00)
[2017-03-07] MEDS ORDERED: NON-FORMULARY (Carvedilol 12.5 MG) PO SCH (22:00)
[2017-03-07] MEDS: COREG PO SCH (22:18)
[2017-03-07] MEDS: DESYREL PO SCH (22:19)
[2017-03-08] MEDS: CATAPRES PO SCH ×3 (05:20→21:28)
[2017-03-08] MEDS: MORPHINE IV PRN ×3 (05:26→18:38)
[2017-03-08 05:56] LABS: Basophils % (Auto) 1.2 % (0.0-1.8); Eosinophils % (Auto) 1.5 % (0.0-4.3); Hematocrit 28.4 % (35.5-45.6); Hemoglobin 9.3 gm/dl (11.8-15.2); Mean Corpuscular HGB Conc 33 % (32-34); Mean Corpuscular Hemoglobin 28 pg (28-32); Mean Corpuscular Volume 87 fl (84-94); Platelet Count 180 K/mm3 (140-440); Red Blood Count 3.29 M/mm3 (3.65-5.03); Red Cell Distribution Width 16.3 % (13.2-15.2); White Blood Count 6.2 K/mm3 (4.5-11.0)
[2017-03-08 06:16] LABS: Calcium 8.2 mg/dL (8.4-10.2); Chloride 95.6 mmol/L (98-107); Potassium 5.2 mmol/L (3.6-5.0)
[2017-03-08] MEDS ORDERED: NON-FORMULARY (Zoloft 100 MG) PO SCH (10:00)
--- NOTE | 2017-03-08 10:38 | Gastroenterology Progress Note ---
Assessment and Plan (1) Anemia -Continues to decline inpatient endoscopy - Patient declines blood transfusion but consents to a bleeding scan (which was negative); has had a negative EGD/Colon x 3 each in the last 3-4 years (per patient). - I have discussed repeat upper/lower endoscopy with the patient, and he declines; he wants to go home and have these done as an outpatient. - Patient's noncompliance with medical followup addressed per Dr. Soto. - H/H with appropriate rise post transfusion. (2) Abnormal CT of the abdomen - Small bowel changes likely from chronic adhesion disease; doubt IBD given negative endoscopies in the past. - Advance diet as tolerated (no vomiting for 48 hours). -OF note, pt has been seen in the past for ascites. Currently abdomen is mildly distended, soft. He has underwent paracentesis in the past per pt ( Tk?) -No known liver disease. Pt workup started in the past, however pt did not follow through with follow up in clinic. Subjective Date of service: 03/08/17 Principal diagnosis: Anemia Interval history: No acute events overnight. Pt continues to decline inpatient endoscopies. Objective - Constitutional Vitals: Temp Pulse Resp BP Pulse Ox 98.4 F 76 16 142/91 97 03/08/17 08:28 03/08/17 08:28 03/08/17 08:28 03/08/17 08:28 03/08/17 08:36 General appearance: no acute distress - EENT Eyes: EOM intact ENT: hearing intact - Neck Neck: supple - Cardiovascular Rhythm: regular - Gastrointestinal General gastrointestinal: Present: soft, distended, hypoactive bowel sounds - Integumentary Integumentary: Present: warm, dry - Neurologic Neurological: alert and oriented x3 - Labs CBC & Chem 7: 03/08/17 05:31 03/08/17 05:31 Labs: Laboratory Results - last 24 hr 03/05/17 03/08/17 03/08/17 14:44 05:31 05:31 WBC 6.2 RBC 3.29 L Hgb 9.3 L Hct 28.4 L MCV 87 MCH 28 MCHC 33 RDW 16.3 H Plt Count 180 Lymph % (Auto) 30.2 [place] % (Auto) 14.7 H Eos % (Auto) 1.5 Baso % (Auto) 1.2 Lymph # 1.9 [place] # 0.9 H Eos # 0.1 Baso # 0.1 Seg Neutrophils % 52.4 Seg Neutrophils # 3.2 Sodium 140 Potassium 5.2 H Chloride 95.6 L Carbon Dioxide 30 Anion Gap 20 BUN 35 H Creatinine 6.5 H Estimated GFR 10 BUN/Creatinine Ratio 5 Glucose 73 L Calcium 8.2 L Crossmatch See Detail
[2017-03-08] MEDS: COREG PO SCH ×2 (11:18→21:26)
[2017-03-08] MEDS: ZOLOFT PO SCH (11:18)
[2017-03-08] MEDS: PROTONIX PO SCH (11:18)
[2017-03-08] MEDS: ZOFRAN IV PRN ×2 (11:18→18:38)
[2017-03-08] MEDS ORDERED: ALBURX 25% (ALBUMIN) IV PRN (11:19)
[2017-03-08] MEDS ORDERED: NACL 0.9% 100 ML IV PRN (11:19)
--- NOTE | 2017-03-08 11:19 | Progress Note ---
Assessment and Plan Impression * End-stage renal disease on maintenance hemodialysis * Symptomatic anemia * Hypotension * Hyperkalemia * Ascites Recommendations * Patient had uneventful hemodialysis yesterday . * His potassium is better but still high normal. His outpatient dialysis days are diffuse disease, and Saturdays. She'll dialyze him again today and switch him over to his outpatient schedule . * Patient is status post packed RBC transfusion * Adjust diet and meds for ESRD state * No IV, BP or venipuncture in his access arm. * Avoid nephrotoxins * Further plan as per GI services Subjective Date of service: 03/08/17 Principal diagnosis: Anemia Interval history: Patient still has some nausea and vomiting. Denies any shortness of breath. Still has some abdominal distention. Objective - Vital Signs Vital signs: Vital Signs - 12hr 03/08/17 03/08/17 03/08/17 00:08 05:20 05:23 Temperature 98.6 F 98.7 F Pulse Rate 71 74 75 Respiratory 20 20 Rate Blood Pressure 127/84 145/89 155/90 O2 Sat by Pulse 97 97 Oximetry 03/08/17 03/08/17 03/08/17 05:45 08:28 08:36 Temperature 98.4 F Pulse Rate 75 76 Respiratory 16 Rate Blood Pressure 142/91 O2 Sat by Pulse 100 97 Oximetry - General Appearance General appearance: chronically ill, frail EENT: PERRL, mucous membranes moist Neck: no JVD, no thyromegaly, no carotid bruit, supple Respiratory: Present: Clear to Ascultation Cardiology: regular, normal heart rate Gastrointestinal: distended Integumentary: other (no edema. AV fistula in his upper arm. Good bruit and thrill) - Lab 03/08/17 05:31 03/08/17 05:31 Most recent lab results Calcium 8.2 mg/dL (8.4-10.2) L 03/08/17 05:31
[2017-03-08] MEDS ORDERED: NACL 0.9 (PRIMING MACHINE ONLY DIALYSIS) MC ONE (16:59)
--- NOTE | 2017-03-08 20:09 | Progress Note ---
Assessment and Plan - Accelerated HTN: Controlled on carvedilol and clonidine BB - Severe symptomatic anemia: Hemoglobin improved Status post blood transfusion. Patient declines endoscopy RBC bleeding scan is negative He states he had EGD and colonoscopy 3 in the past several years and has refused any scope at this time - Hyperkalemia:2/2 ESRD, Potassium still elevated though improving. Had hemodialysis yesterday - End-stage renal disease: nephrology note reviewed. Avoid nephrotoxic substances - Chronic pain: Continue morphine IV every 3 hours when necessary - Disposition: Hemodialysis tomorrow to optimize a potassium level and discharged after DVT prophylaxis with SCDs only because of his severe anemia. Will avoid anticoagulation Subjective Date of service: 03/08/17 Principal diagnosis: Anemia, ESRD Interval history: Still considerably whether to have blood transfusion. Objective - Constitutional Vitals: Vital Signs - 12hr 03/08/17 03/08/17 03/08/17 08:28 08:36 10:00 Temperature 98.4 F Pulse Rate 76 Pulse Rate [ 73 Right Dorsalis Pedis] Respiratory 16 Rate Blood Pressure 142/91 O2 Sat by Pulse 100 97 Oximetry 03/08/17 03/08/17 03/08/17 12:24 13:00 13:30 Temperature 97.6 F 98.2 F Pulse Rate 71 80 66 Pulse Rate [ Right Dorsalis Pedis] Respiratory 20 18 Rate Blood Pressure 169/105 144/89 O2 Sat by Pulse 100 Oximetry 03/08/17 03/08/17 03/08/17 13:45 14:00 14:15 Temperature Pulse Rate 68 66 65 Pulse Rate [ Right Dorsalis Pedis] Respiratory Rate Blood Pressure 140/90 124/76 108/60 O2 Sat by Pulse Oximetry 03/08/17 03/08/17 03/08/17 14:30 14:45 15:00 Temperature Pulse Rate 67 73 72 Pulse Rate [ Right Dorsalis Pedis] Respiratory Rate Blood Pressure 105/59 109/70 115/76 O2 Sat by Pulse Oximetry 03/08/17 03/08/17 03/08/17 15:15 15:30 15:45 Temperature Pulse Rate 72 70 70 Pulse Rate [ Right Dorsalis Pedis] Respiratory Rate Blood Pressure 113/75 111/71 138/80 O2 Sat by Pulse Oximetry 03/08/17 03/08/17 03/08/17 16:00 16:15 16:30 Temperature Pulse Rate 71 76 70 Pulse Rate [ Right Dorsalis Pedis] Respiratory Rate Blood Pressure 146/53 123/84 127/79 O2 Sat by Pulse Oximetry 03/08/17 03/08/17 03/08/17 16:45 17:00 17:15 Temperature 98.0 F Pulse Rate 70 85 68 Pulse Rate [ Right Dorsalis Pedis] Respiratory 18 Rate Blood Pressure 141/87 137/89 149/88 O2 Sat by Pulse Oximetry General appearance: Present: no acute distress, well-nourished - EENT Eyes: PERRL, EOM intact - Neck Neck: supple, normal ROM - Respiratory Respiratory effort: normal Respiratory: bilateral: CTA - Cardiovascular Rhythm: regular Heart Sounds: Present: S1 & S2. Absent: gallop, rub Extremities: pulses intact, No edema, normal color, Full ROM - Gastrointestinal General gastrointestinal: Present: soft, non-tender, non-distended, normal bowel sounds - Integumentary Integumentary: clear, warm, dry - Musculoskeletal Musculoskeletal: 1, strength equal bilaterally - Neurologic Neurologic: moves all extremities - Psychiatric Psychiatric: appropriate mood/affect, memory intact - Labs CBC & Chem 7: 03/08/17 05:31 03/08/17 05:31 Labs: Abnormal lab results 03/08/17 03/08/17 Range/Units 05:31 05:31 RBC 3.29 L (3.65-5.03) M/mm3 Hgb 9.3 L (11.8-15.2) gm/dl Hct 28.4 L (35.5-45.6) % RDW 16.3 H (13.2-15.2) % [place] % (Auto) 14.7 H (0.0-7.3) % [place] # 0.9 H (0.0-0.8) K/mm3 Potassium 5.2 H (3.6-5.0) mmol/L Chloride 95.6 L (98-107) mmol/L BUN 35 H (9-20) mg/dL Creatinine 6.5 H (0.8-1.5) mg/dL Glucose 73 L (75-100) mg/dL Calcium 8.2 L (8.4-10.2) mg/dL
[2017-03-08] MEDS: DESYREL PO SCH (21:27)
[2017-03-09] MEDS: MORPHINE IV PRN (02:32)
[2017-03-09 05:51] VITALS: BP 154/106
[2017-03-09] MEDS: CATAPRES PO SCH (06:02)
--- NOTE | 2017-03-09 09:54 | Discharge Summary ---
Providers - Providers Date of Admission: 03/05/17 15:14 Date of discharge: 03/09/17 Attending physician: ZACH HERNANDEZ 03/05/17 14:29 Consult to Physician [CONS] Urgent Consulting Provider: PREETI DIAZ Reason For Exam: ? gi bleed Notified:: awaiting call back 03/05/17 14:30 Consult to Physician [CONS] Urgent Consulting Provider: JOHN SMITH Reason For Exam: esrd Notified:: awaiting call back Primary care physician: ARCADIO ARCHER Hospitalization Reason for admission: ESRD on HD, Symtomatic anemia Condition: Good Pertinent studies: CT abdomen and pelvis, Bleeding scan Procedures: none. Pt declined colonoscopy Hospital course: 27 YO Male with ESRD on HD(,, ), Noncompliant presents to ED for evaluation. Pt was in his usual state of health, and presented to dialysis clinic today for his scheduled dialysis. Pt states that he got dizzy before his dialysis and felt like he was going to pass out. Pt was found to have low blood pressure 84/52. EMS notified and patient transported to [facility] for further care and evaluation. Pt denies fever, chills, CP, Palpitations, NVD, recent ill contacts, productive cough, BRBPR, Headache, vertigo, or recent ill contacts. Pt seen and evaluated in ED and found to have hypotension, and symptomatic anemia. GI consulted in ED. On admission Hgb was 7.6. reduced to 6.7 Disposition: DC-01 TO HOME OR SELFCARE Core Measure Documentation - Palliative Care Palliative Care/ Comfort Measures: Not Applicable - Core Measures Any of the following diagnoses?: none Exam - Constitutional Vitals: Temp Pulse Resp BP Pulse Ox 98.4 F 81 18 154/106 98 03/09/17 05:24 03/09/17 06:02 03/09/17 05:24 03/09/17 06:02 03/09/17 05:24 General appearance: Present: no acute distress, well-nourished - EENT Eyes: Present: PERRL ENT: hearing intact, clear oral mucosa - Neck Neck: Present: supple, normal ROM - Respiratory Respiratory effort: normal Respiratory: bilateral: CTA - Cardiovascular Heart Sounds: Present: S1 & S2. Absent: rub, click - Extremities Extremities: pulses symmetrical, No edema Peripheral Pulses: within normal limits - Abdominal General gastrointestinal: Present: soft, non-tender, non-distended, normal bowel sounds - Integumentary Integumentary: Present: clear, warm, dry - Musculoskeletal Musculoskeletal: gait normal, strength equal bilaterally - Psychiatric Psychiatric: appropriate mood/affect, intact judgment & insight - Neurologic Neurologic: CNII-XII intact, moves all extremities Plan Activity: advance as tolerated, fall precautions Weight Bearing Status: Non-Weight Bearing Diet: renal Follow up with: ARCADIO ARCHER MD [Primary Care Provider] - 3-5 Days Prescriptions: Nexium 40 mg PO QAM #30 Vitamin D3 2,000 unit 2,000 units PO QDAY #30
[2017-03-09] MEDS: COREG PO SCH (10:14)
[2017-03-09] MEDS: PROTONIX PO SCH (10:14)
[2017-03-09] MEDS: ZOLOFT PO SCH (10:15)
== END 2017-03-09 11:38 | disposition home or self-care (01) | DRG 314 ==
LOC: ED 12:31 → 4A 15:14
PROVIDERS: ADMIT Internal Medicine; ATTEND Family Medicine
PROC: 30233N1 Transfusion of Nonautologous Red Blood Cells into Peripheral Vein, Percutaneous Approach (ICD-10-PCS; principal; 2017-03-07)
PROC: 5A1D70Z Performance of Urinary Filtration, Intermittent, Less than 6 Hours Per Day (ICD-10-PCS; 2017-03-07)
PROC: 5A1D70Z Performance of Urinary Filtration, Intermittent, Less than 6 Hours Per Day (ICD-10-PCS; 2017-03-08)
DX: I95.9 Hypotension, unspecified (principal); N18.6 End stage renal disease; I12.0 Hypertensive chronic kidney disease with stage 5 chronic kidney disease or end stage renal disease; R18.8 Other ascites; K92.2 Gastrointestinal hemorrhage, unspecified; D64.9 Anemia, unspecified; E87.5 Hyperkalemia; K21.9 Gastro-esophageal reflux disease without esophagitis; E86.9 Volume depletion, unspecified; G89.29 Other chronic pain; F17.200 Nicotine dependence, unspecified, uncomplicated; Z99.2 Dependence on renal dialysis; Z79.899 Other long term (current) drug therapy
CPT/HCPCS: 36415; 36430; 74176; 78278; 80048; 80053; 80061; 82271; 84484; 85025; 86850; 86900; 86901; 86920; 93005; 93010; 96361; 96365; 96375; 99406; A9560; C9113; J0885; J1200; J1642; J2060; J2270; J2405; J2597; J3010; J7030; J7040; J7050; P9016

== ENCOUNTER 2017-03-18 14:16 | Inpatient (IN) | payer MEDICARE ==
[2017-03-18 16:38] LABS: Basophils # (Auto) 0.1 K/mm3 (0.0-0.1); Basophils % (Auto) 1.1 % (0.0-1.8); Eosinophils # (Auto) 0.1 K/mm3 (0.0-0.4); Eosinophils % (Auto) 1.3 % (0.0-4.3); Hematocrit 27.7 % (35.5-45.6); Lymphocytes # (Auto) 1.4 K/mm3 (1.2-5.4); Lymphocytes % (Auto) 17.6 % (13.4-35.0); Mean Corpuscular HGB Conc 32 % (32-34); Mean Corpuscular Hemoglobin 28 pg (28-32); Mean Corpuscular Volume 88 fl (84-94); Monocytes # (Auto) 0.7 K/mm3 (0.0-0.8); Monocytes % (Auto) 9.1 % (0.0-7.3); Platelet Count 220 K/mm3 (140-440); Red Blood Count 3.16 M/mm3 (3.65-5.03); Red Cell Distribution Width 17.6 % (13.2-15.2)
[2017-03-18 16:58] LABS: Calcium 8.7 mg/dL (8.4-10.2)
[2017-03-18 17:29] LABS: Chol/HDL Ratio 2.76 %
--- NOTE | 2017-03-18 18:57 | XRay Report ---
FINAL REPORT PROCEDURE: XR CHEST ROUTINE 2V TECHNIQUE: PA lateral chest HISTORY: sob/cp COMPARISON: 02/19/2017 FINDINGS: Shallow inspiration with lower lung zone atelectasis. Heart is not enlarged. Mild congestion IMPRESSION: Lung base atelectasis exaggerated by shallow inspiration
[2017-03-18] MEDS ORDERED: ZOFRAN IV ONE (21:37)
[2017-03-18] MEDS ORDERED: MORPHINE IV ONE (21:37)
--- NOTE | 2017-03-18 21:41 | Emergency Department Report ---
HPI - General Chief Complaint: Chest Pain Time Seen by Provider: 03/18/17 21:29 - HPI HPI: Room 4 The patient is a 27-year-old male presenting with chief complaint right side pain. The patient states since last night his head pain from his right shoulder right thorax and right costal margin and right back that has been constant in nature. Denies any preceding trauma. Patient denies any history of fever. Patient does admit pleurisy. The patient currently gives his pain score of 8.5/10 Location: [See above] Duration: Constant since last night Quality: Pain Severity: 8.5/10 Modifying factors: [see above] Context: [see above] Mode of transportation: [not driving] ED Past Medical Hx - Past Medical History Previous Medical History?: Yes Hx Hypertension: Yes Hx GERD: Yes Hx Renal Disease: Yes (HD ( / / Sat)) Additional medical history: Hidradenitis - Surgical History Past Surgical History?: Yes Additional Surgical History: PD CATHETER - AND REMOVAL. AV FISTULA. LYMPH NODES REMOVED LEFT GROIN. TONSILLECTOMY. Patient does have a history of peritonitis with previous PD - Family History Family history: no significant - Social History Smoking Status: Former Smoker (stopped one week ago) Substance Use Type: None (denies illicit drug use) - Medications Home Medications: Home Medications Medication Instructions Recorded Confirmed Last Taken Type Carvedilol 12.5 mg PO BID 02/15/17 03/19/17 Unknown History Clonidine 0.3 mg PO TID 02/15/17 03/19/17 Unknown History Colace CAP 100 mg PO QDAY 02/15/17 03/19/17 Unknown History Dialyvite 800-Zinc 15 mg Tab 800 mg PO QDAY 02/15/17 03/19/17 Unknown History Losartan Potassium 100 mg PO QDAY 02/15/17 03/19/17 Unknown History Zofran TAB 4 mg PO PRN PRN MDD nausea 02/15/17 03/19/17 Unknown History Zoloft 100 mg PO DAILY 02/15/17 03/19/17 Unknown History hydrOXYzine 25 mg PO DAILY MDD 25 02/15/17 03/19/17 Unknown History traZODone 100 mg PO QPM 02/15/17 03/19/17 Unknown History Nexium 40 mg PO QAM #30 03/09/17 03/19/17 Unknown Rx Vitamin D3 2,000 unit 2,000 units PO QDAY #30 03/09/17 03/19/17 Unknown Rx ED Review of Systems ROS: Stated complaint: RIGHT SIDE PAIN Other details as noted in HPI Constitutional: denies: fever Respiratory: other (pleurisy) Physical Exam - Physical Exam Vital Signs: Vital Signs 03/18/17 15:57 Temperature 98.9 F Pulse Rate 81 Respiratory 18 Rate Blood Pressure 176/113 O2 Sat by Pulse 100 Oximetry Physical Exam: GENERAL: The patient is well-developed well-nourished male lying on stretcher not appearing to be in acute distress. [] HEENT: Normocephalic. Atraumatic. Extraocular motions are intact. Patient has moist mucous membranes. NECK: Supple. Trachea midline CHEST/LUNGS: Clear to auscultation. There is no respiratory distress noted. HEART/CARDIOVASCULAR: Regular. There is no tachycardia. There is no gallop rub or murmur. ABDOMEN: Abdomen is soft, nontender. Patient has normal bowel sounds. There is no abdominal distention. SKIN: There are numerous sores present on the patient's back chronic appearing. There is no diaphoresis. NEURO: The patient is awake, alert, and oriented. The patient is cooperative. The patient has normal speech MUSCULOSKELETAL: There is no evidence of acute injury. 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 Sun-states is okay to administer IV contrast for CT chest but recommends admission to the hospital regardless of results so the patient may be dialyzed ED Medical Decision Making - Lab Data Result diagrams: 03/18/17 16:20 03/18/17 16:20 Laboratory Tests 03/18/17 03/18/17 03/18/17 16:20 16:20 20:31 WBC 7.7 RBC 3.16 L Hgb 9.0 L Hct 27.7 L MCV 88 MCH 28 MCHC 32 RDW 17.6 H Plt Count 220 Lymph % (Auto) 17.6 [place] % (Auto) 9.1 H Eos % (Auto) 1.3 Baso % (Auto) 1.1 Lymph # 1.4 [place] # 0.7 Eos # 0.1 Baso # 0.1 Seg Neutrophils % 70.9 H Seg Neutrophils # 5.5 Sodium 146 H Potassium 4.6 Chloride 96.2 L Carbon Dioxide 33 H Anion Gap 21 BUN 37 H Creatinine 6.1 H Estimated GFR 11 BUN/Creatinine Ratio 6 Glucose 85 Calcium 8.7 Troponin T 0.353 H* 0.351 H* Triglycerides 61 Cholesterol 119 LDL Cholesterol Direct 64 HDL Cholesterol 43 Cholesterol/HDL Ratio 2.76 - EKG Data -: EKG Interpreted by Me EKG shows normal: sinus rhythm Rate: normal (76 bpm) - EKG Data When compared to previous EKG there are: no significant change Interpretation: unchanged when compared t (03/05/2017) - Radiology Data Radiology results: report reviewed (CT chest, CT abdomen and pelvis), image reviewed (chest x-ray, CT chest, CT abdomen and pelvis) interpreted by me: Chest x-ray-left lower lobe atelectasis. No pneumothorax FINAL REPORT PROCEDURE: XR CHEST ROUTINE 2V TECHNIQUE: PA lateral chest HISTORY: sob/cp COMPARISON: 02/19/2017 FINDINGS: Shallow inspiration with lower lung zone atelectasis. Heart is not enlarged. Mild congestion IMPRESSION: Lung base atelectasis exaggerated by shallow inspiration Transcribed By: WEP Dictated By: DAMARIS SOMERS MD Electronically Authenticated By: DAMARIS SOMERS MD Signed Date/Time: 03/18/171452 DD/ 52 TD/TT: 03/18/171452 FINAL REPORT EXAM: CT ANGIO CHEST HISTORY: pleurisy, right thorax pain TECHNIQUE: A CT angiogram was performed following the intravenous injection of iodinated contrast. MIP rotational, sagittal and coronal reconstructions were reviewed. FINDINGS: There is no evidence of pulmonary embolus or aortic dissection. Heart is mildly enlarged. There are small bilateral pleural effusions. There is patchy atelectatic changes/infiltrates in the left lower lobe. There is no evidence of lymphadenopathy. Mild congestion cannot be excluded. At the thoracic inlet the thyroid gland appears normal. In the upper abdomen there is extensive ascites. The skeletal structures otherwise do not show any acute changes. IMPRESSION: No evidence of pulmonary embolus or aortic dissection. Patchy infiltrate/atelectasis left lower lobe. Bilateral small pleural effusions. Mild congestion cannot be excluded. Extensive ascites noted in the upper abdomen. Transcribed By: RB Dictated By: MAYA COVARRUBIAS MD Electronically Authenticated By: MAYA COVARRUBIAS MD Signed Date/Time: 03/18/172029 DD/ 29 TD/TT: 03/18/172029 FINAL REPORT EXAM: CT ABDOMEN PELVIS W CON HISTORY: pleurisy, right thorax pain TECHNIQUE: Routine axial imaging was obtained of the abdomen pelvis following intravenous injection of iodinated contrast. Sagittal and coronal reconstructions were reviewed. Comparison is made to the study of 03/05/2017. FINDINGS: The lung bases reveal atelectatic changes/infiltrates in left lower lobe. There are small effusions. There is severe ascites unchanged from the previous study. There is central displacement of bowel loops into the mid abdomen. The liver, gallbladder and adrenal glands appear normal. The kidneys are severely atrophic. The spleen is normal in size. There are prominent vessels in the splenic hilum. Splenic varices cannot be excluded. The pancreas is atrophic. The bowel loops are not distended. There is no evidence of adenopathy. There calcification of the abdominal aorta. In the pelvis prostate gland and bladder are unremarkable. The bladder is compressed/empty. The skeletal structures otherwise well maintained IMPRESSION: Severe ascites unchanged from the previous study. No evidence of bowel obstruction or other acute process in the abdomen. Possible splenic varices. Bilateral small pleural effusions. Atelectatic changes/infiltrates in the left lung base noted. Transcribed By: RB Dictated By: MAYA COVARRUBIAS MD Electronically Authenticated By: MAYA COVARRUBIAS MD Signed Date/Time: 03/18/172034 DD/ 34 TD/TT: 03/18/172034 - Differential Diagnosis pneumothorax, pneumonia, PE, pleurisy Critical care attestation.: If time is entered above; I have spent that time in minutes in the direct care of this critically ill patient, excluding procedure time. ED Disposition Clinical Impression: Chest pain, End stage renal disease on dialysis, Ascites Disposition: OP ADMIT IP TO THIS HOSP Is pt being admited?: Yes Does the pt Need Aspirin: Yes Condition: Fair Instructions: Chest Pain (ED) Referrals: JOHN SMITH MD [Primary Care Provider] - 3-5 Days Time of Disposition: 00:42 (hospitalist notified (Dr. Venegas))
--- NOTE | 2017-03-18 23:31 | History and Physical Report ---
History of Present Illness Date of examination: 03/18/17 Date of admission: 03/18/2017 Chief complaint: chief complaint right-sided chest pain History of present illness: MARCK The patient is a 27-year-old male presenting with chief complaint of right side pain.patient has pain on the right side of the abdomen. Some nausea present. Some shortness of breath present. Pain is about a 10 scale of 1-10.did not miss any dialysis.no recent travel. Nausea present but no vomiting or diarrhea.no fever no chills - Past Medical History Previous Medical History?: Yes Hx Hypertension: Yes Hx GERD: Yes Hx Renal Disease: Yes (HD ( / / Tue)) Additional medical history: Hidradenitis - Surgical History Past Surgical History?: Yes Additional Surgical History: PD CATHETER - AND REMOVAL. AV FISTULA. LYMPH NODES REMOVED LEFT GROIN. TONSILLECTOMY. Patient does have a history of peritonitis with previous PD - Family History Family history: no significant - Social History Smoking Status: Former Smoker (stopped one week ago) Substance Use Type: None (denies illicit drug use) - Medications Home Medications: Home Medications Medication Instructions Recorded Confirmed Last Taken Type Carvedilol 12.5 mg PO BID 02/15/17 03/19/17 Unknown History Clonidine 0.3 mg PO TID 02/15/17 03/19/17 Unknown History Colace CAP 100 mg PO QDAY 02/15/17 03/19/17 Unknown History Dialyvite 800-Zinc 15 mg Tab 800 mg PO QDAY 02/15/17 03/19/17 Unknown History Losartan Potassium 100 mg PO QDAY 02/15/17 03/19/17 Unknown History Zofran TAB 4 mg PO PRN PRN MDD nausea 02/15/17 03/19/17 Unknown History Zoloft 100 mg PO DAILY 02/15/17 03/19/17 Unknown History hydrOXYzine 25 mg PO DAILY MDD 25 02/15/17 03/19/17 Unknown History traZODone 100 mg PO QPM 02/15/17 03/19/17 Unknown History Nexium 40 mg PO QAM #30 03/09/17 03/19/17 Unknown Rx Vitamin D3 2,000 unit 2,000 units PO QDAY #30 03/09/17 03/19/17 Unknown Rx Review of System: Constitutional: no fever, no chills, no weight loss Ears, eyes, nose, mouth and throat: no nasal congestion, no nasal discharge, no sinus pressure, no vision change, no red eye. Neck: No neck pain or rigidity. Cardiovascular: right chest pain, no orthopnea, no palpitations, no leg swelling Respiratory: No shortness of breath, no cough, no congestion, no wheezing Gastrointestinal: no abdominal pain, no nausea, no vomiting Genitourinary : no dysuria, no hematuria Musculoskeletal: no joint swelling or muscle ache Integumentary: no rash, no pruritis Neurological: no parathesias, no numbness, no tingling Endocrine: no cold or heat intolerance, no polyuria or polydipsia Hematologic/Lymphatic: no easy bruising, no easy bleeding, no gland swelling Allergic/Immunologic: no urticaria, no angioedema. Medications and Allergies Allergies Allergy/AdvReac Type Severity Reaction Status Date / Time heparin Allergy lowers Verified 02/19/17 13:22 platelets Home Medications Medication Instructions Recorded Confirmed Last Taken Type Carvedilol 12.5 mg PO BID 02/15/17 03/19/17 Unknown History Clonidine 0.3 mg PO TID 02/15/17 03/19/17 Unknown History Colace CAP 100 mg PO QDAY 02/15/17 03/19/17 Unknown History Dialyvite 800-Zinc 15 mg Tab 800 mg PO QDAY 02/15/17 03/19/17 Unknown History Losartan Potassium 100 mg PO QDAY 02/15/17 03/19/17 Unknown History Zofran TAB 4 mg PO PRN PRN MDD nausea 02/15/17 03/19/17 Unknown History Zoloft 100 mg PO DAILY 02/15/17 03/19/17 Unknown History hydrOXYzine 25 mg PO DAILY MDD 25 02/15/17 03/19/17 Unknown History traZODone 100 mg PO QPM 02/15/17 03/19/17 Unknown History Nexium 40 mg PO QAM #30 03/09/17 03/19/17 Unknown Rx Vitamin D3 2,000 unit 2,000 units PO QDAY #30 03/09/17 03/19/17 Unknown Rx Review of Systems All systems: negative Constitutional: no weight loss, no weight gain, no fever, no chills Exam - Constitutional Vitals: Temp Pulse Resp BP Pulse Ox 98.3 F 70 14 168/98 97 03/18/17 22:15 03/18/17 22:15 03/18/17 22:15 03/18/17 22:15 03/18/17 22:15 General appearance: Present: no acute distress, well-nourished - EENT Eyes: Present: PERRL ENT: hearing intact, clear oral mucosa - Neck Neck: Present: supple, normal ROM - Respiratory Respiratory effort: normal Respiratory: bilateral: CTA - Cardiovascular Heart rate: 70 Rhythm: regular Heart Sounds: Present: S1 & S2. Absent: rub, click - Extremities Extremities: no ischemia, pulses intact, pulses symmetrical, No edema Peripheral Pulses: within normal limits - Abdominal General gastrointestinal: Present: soft, non-tender, non-distended, normal bowel sounds Male genitourinary: Present: normal - Rectal Rectal Exam: deferred - Integumentary Integumentary: Present: clear, warm, dry - Musculoskeletal Musculoskeletal: gait normal, strength equal bilaterally - Psychiatric Psychiatric: appropriate mood/affect, intact judgment & insight - Neurologic Neurologic: CNII-XII intact, moves all extremities - Allied Health Allied health notes reviewed: nursing, case management Results - Labs CBC & Chem 7: 03/19/17 06:06 03/19/17 06:06 Labs: Laboratory Last Values WBC 7.7 K/mm3 (4.5-11.0) 03/18/17 16:20 RBC 3.16 M/mm3 (3.65-5.03) L 03/18/17 16:20 Hgb 9.0 gm/dl (11.8-15.2) L 03/18/17 16:20 Hct 27.7 % (35.5-45.6) L 03/18/17 16:20 MCV 88 fl (84-94) 03/18/17 16:20 MCH 28 pg (28-32) 03/18/17 16:20 MCHC 32 % (32-34) 03/18/17 16:20 RDW 17.6 % (13.2-15.2) H 03/18/17 16:20 Plt Count 220 K/mm3 (140-440) 03/18/17 16:20 Lymph % (Auto) 17.6 % (13.4-35.0) 03/18/17 16:20 [place] % (Auto) 9.1 % (0.0-7.3) H 03/18/17 16:20 Eos % (Auto) 1.3 % (0.0-4.3) 03/18/17 16:20 Baso % (Auto) 1.1 % (0.0-1.8) 03/18/17 16:20 Lymph # 1.4 K/mm3 (1.2-5.4) 03/18/17 16:20 [place] # 0.7 K/mm3 (0.0-0.8) 03/18/17 16:20 Eos # 0.1 K/mm3 (0.0-0.4) 03/18/17 16:20 Baso # 0.1 K/mm3 (0.0-0.1) 03/18/17 16:20 Seg Neutrophils % 70.9 % (40.0-70.0) H 03/18/17 16:20 Seg Neutrophils # 5.5 K/mm3 (1.8-7.7) 03/18/17 16:20 Sodium 146 mmol/L (137-145) H 03/18/17 16:20 Potassium 4.6 mmol/L (3.6-5.0) 03/18/17 16:20 Chloride 96.2 mmol/L (98-107) L 03/18/17 16:20 Carbon Dioxide 33 mmol/L (22-30) H 03/18/17 16:20 Anion Gap 21 mmol/L 03/18/17 16:20 BUN 37 mg/dL (9-20) H 03/18/17 16:20 Creatinine 6.1 mg/dL (0.8-1.5) H 03/18/17 16:20 Estimated GFR 11 ml/min 03/18/17 16:20 BUN/Creatinine Ratio 6 % 03/18/17 16:20 Glucose 85 mg/dL (75-100) 03/18/17 16:20 Calcium 8.7 mg/dL (8.4-10.2) 03/18/17 16:20 Troponin T 0.351 ng/mL (0.00-0.029) H* 03/18/17 20:31 Triglycerides 61 mg/dL (2-149) 03/18/17 16:20 Cholesterol 119 mg/dL (50-199) 03/18/17 16:20 LDL Cholesterol Direct 64 mg/dL (50-130) 03/18/17 16:20 HDL Cholesterol 43 mg/dL (40-59) 03/18/17 16:20 Cholesterol/HDL Ratio 2.76 % 03/18/17 16:20 Short CBC 03/18/17 03/19/17 Range/Units 16:20 06:06 WBC 7.7 6.5 (4.5-11.0) K/mm3 Hgb 9.0 L 10.4 L (11.8-15.2) gm/dl Hct 27.7 L 32.5 L (35.5-45.6) % Plt Count 220 245 (140-440) K/mm3 BMP 03/18/17 03/19/17 16:20 06:06 Sodium 146 H 141 Potassium 4.6 Chloride 96.2 L 92.5 L Carbon Dioxide 33 H 29 BUN 37 H 41 H Creatinine 6.1 H 6.7 H Glucose 85 66 L Calcium 8.7 8.8 Cardiac Enzymes 03/18/17 03/18/17 03/18/17 Range/Units 16:20 20:31 22:47 Troponin T 0.353 H* 0.351 H* 0.348 H* (0.00-0.029) ng/mL Liver Function 03/19/17 Range/Units 06:06 Total Bilirubin 0.40 (0.1-1.2) mg/dL Alkaline Phosphatase 85 (35-129) units/L Albumin 3.3 L (3.9-5) g/dL - Imaging and Cardiology CT scan - abdomen: report reviewed (oderate to severe ascites) CT scan - chest: report reviewed (bilateral small pleural effusions no evidence of pulmonary embolism patchy infiltrate left lower lobe) Assessment and Plan Advance Directives: Yes (full code) VTE prophylaxis?: Chemical Plan of care discussed with patient/family: Yes - Patient Problems (1) Ascites Current Visit: Yes Status: Chronic Plan to address problem: patient may benefit from paracentesis. (2) Chest pain Current Visit: Yes Status: Acute Qualifiers: Chest pain type: chest pain on breathing Qualified Code(s): R07.1 - Chest pain on breathing; R07.81 - Pleurodynia Plan to address problem: secondary to pleurisy. Etiology unclear. No pneumonia on the right side. Patchy infiltrates in the left side. No fever. Did not start any antibiotics (3) End stage renal disease on dialysis Current Visit: Yes Status: Chronic Plan to address problem: Dr. Sun consulted for nephrology follow-up (4) Hypertension Current Visit: Yes Status: Chronic Qualifiers: Hypertension type: essential hypertension Qualified Code(s): I10 - Essential (primary) hypertension Plan to address problem: continue on 3 antihypertensives including clonidine and Coreg. (5) Malnutrition Current Visit: Yes Status: Chronic Qualifiers: Malnutrition type: protein-calorie malnutrition Plan to address problem: mild to moderate. Dietary consult requested. (6) DVT prophylaxis Current Visit: Yes Status: Acute Plan to address problem: on heparin.
[2017-03-18] MEDS ORDERED: TYLENOL PO PRN ×2 (23:34→23:43)
[2017-03-18] MEDS ORDERED: MILK OF MAGNESIA PO PRN ×2 (23:34→23:43)
[2017-03-18] MEDS ORDERED: DULCOLAX PR PRN ×2 (23:34→23:43)
[2017-03-18] MEDS ORDERED: AMBIEN PO PRN (23:43)
[2017-03-18] MEDS ORDERED: MORPHINE IV PRN (23:43)
[2017-03-18] MEDS ORDERED: ZOFRAN IV PRN (23:43)
[2017-03-18] MEDS ORDERED: NON-FORMULARY (Carvedilol 12.5 MG) PO SCH (23:45)
--- NOTE | 2017-03-19 00:33 | Cat Scan Report ---
FINAL REPORT EXAM: CT ANGIO CHEST HISTORY: pleurisy, right thorax pain TECHNIQUE: A CT angiogram was performed following the intravenous injection of iodinated contrast. MIP rotational, sagittal and coronal reconstructions were reviewed. FINDINGS: There is no evidence of pulmonary embolus or aortic dissection. Heart is mildly enlarged. There are small bilateral pleural effusions. There is patchy atelectatic changes/infiltrates in the left lower lobe. There is no evidence of lymphadenopathy. Mild congestion cannot be excluded. At the thoracic inlet the thyroid gland appears normal. In the upper abdomen there is extensive ascites. The skeletal structures otherwise do not show any acute changes. IMPRESSION: No evidence of pulmonary embolus or aortic dissection. Patchy infiltrate/atelectasis left lower lobe. Bilateral small pleural effusions. Mild congestion cannot be excluded. Extensive ascites noted in the upper abdomen.
[2017-03-19] MEDS ORDERED: COREG ONE (00:36)
--- NOTE | 2017-03-19 00:38 | Cat Scan Report ---
FINAL REPORT EXAM: CT ABDOMEN PELVIS W CON HISTORY: pleurisy, right thorax pain TECHNIQUE: Routine axial imaging was obtained of the abdomen pelvis following intravenous injection of iodinated contrast. Sagittal and coronal reconstructions were reviewed. Comparison is made to the study of 03/05/2017. FINDINGS: The lung bases reveal atelectatic changes/infiltrates in left lower lobe. There are small effusions. There is severe ascites unchanged from the previous study. There is central displacement of bowel loops into the mid abdomen. The liver, gallbladder and adrenal glands appear normal. The kidneys are severely atrophic. The spleen is normal in size. There are prominent vessels in the splenic hilum. Splenic varices cannot be excluded. The pancreas is atrophic. The bowel loops are not distended. There is no evidence of adenopathy. There calcification of the abdominal aorta. In the pelvis prostate gland and bladder are unremarkable. The bladder is compressed/empty. The skeletal structures otherwise well maintained IMPRESSION: Severe ascites unchanged from the previous study. No evidence of bowel obstruction or other acute process in the abdomen. Possible splenic varices. Bilateral small pleural effusions. Atelectatic changes/infiltrates in the left lung base noted.
[2017-03-19] MEDS: COREG PO SCH ×3 (00:41→21:41)
[2017-03-19] MEDS: MORPHINE IV PRN ×4 (02:16→21:41)
[2017-03-19] MEDS: ZOFRAN IV PRN ×3 (02:16→21:41)
[2017-03-19 06:37] LABS: Basophils # (Auto) 0.1 K/mm3 (0.0-0.1); Basophils % (Auto) 1.2 % (0.0-1.8); Eosinophils # (Auto) 0.1 K/mm3 (0.0-0.4); Eosinophils % (Auto) 1.5 % (0.0-4.3); Hematocrit 32.5 % (35.5-45.6); Hemoglobin 10.4 gm/dl (11.8-15.2); Lymphocytes # (Auto) 1.6 K/mm3 (1.2-5.4); Lymphocytes % (Auto) 24.2 % (13.4-35.0); Mean Corpuscular HGB Conc 32 % (32-34); Mean Corpuscular Hemoglobin 28 pg (28-32); Mean Corpuscular Volume 89 fl (84-94); Monocytes # (Auto) 0.6 K/mm3 (0.0-0.8); Monocytes % (Auto) 9.9 % (0.0-7.3); Platelet Count 245 K/mm3 (140-440); Red Blood Count 3.65 M/mm3 (3.65-5.03)
[2017-03-19 07:00] LABS: Albumin 3.3 g/dL (3.9-5); Calcium 8.8 mg/dL (8.4-10.2)
[2017-03-19] MEDS ORDERED: NON-FORMULARY (Clonidine 0.3 MG) PO SCH (08:00)
[2017-03-19] MEDS ORDERED: NON-FORMULARY (Zoloft 100 MG) PO SCH (10:00)
[2017-03-19] MEDS ORDERED: COLACE 100 MG PO SCH (10:00)
[2017-03-19] MEDS ORDERED: DIALYVITE ZINC PO SCH (10:00)
[2017-03-19] MEDS ORDERED: NON-FORMULARY (Losartan Potassium 100 MG) PO SCH (10:00)
[2017-03-19] MEDS ORDERED: HYDROXYZINE 25 MG PO SCH (10:00)
[2017-03-19] MEDS ORDERED: NON-FORMULARY (Nexium 40 MG) PO SCH (10:00)
[2017-03-19] MEDS: COZAAR PO SCH (10:40)
[2017-03-19] MEDS: PROTONIX PO SCH (10:41)
[2017-03-19] MEDS: COLACE PO SCH (10:41)
[2017-03-19] MEDS: Renal Caps PO SCH (10:41)
[2017-03-19] MEDS: ZOLOFT PO SCH (10:42)
[2017-03-19] MEDS: ATARAX PO SCH (10:43)
[2017-03-19] MEDS: CATAPRES PO SCH ×3 (10:51→21:40)
--- NOTE | 2017-03-19 12:49 | Consultation ---
History of Present Illness - History of Present Illness Thank you for the consultation patient was evaluated today. Source of information; patient himself current records were also reviewed History of presenting illness; Patient is a 27-year-old male who is currently dialysis dependent, and is being followed in our clinic for end-stage renal disease care. Patient does have issues with chronic peritoneal effusion for which she has been seen and followed by gastroenterology service and has had tappings done off and on. Patient came to the hospital with complaints off right-sided pain that involved in the chest area as well as the back. Pain was about 8 point 5/10 in severity. He has no recent history of any fevers chills cough cold congestion or expectoration of any phlegm. Upon arrival in the ER patient's white cell count was normal 7.7 thousand potassium was 4.6 his normal dialysis days are Tuesday and Tuesday Past medical history significant for End-stage renal disease currently on maintenance hemodialysis Anemia and end-stage renal disease Chronic ascites needing periodic paracentesis Secondary hyperparathyroidism Chronic noncompliance Current allergies heparin Social history: History of any alcohol drug tobacco use Family history: Unremarkable for innovative disorder Review of system is positive for right-sided pain Complete review of systems obtained pertinent positive above other's review of systems negative Physical examination General: No acute distress HEENT: Oral mucosa moist no pharyngeal erythema no pallor or icterus no uremic order Neck: Supple no evidence of any thyromegaly trachea midline no JVD Chest: Clear to auscultation no crackles are also wheezes anteriorly Heart: Regular rate and rhythm S1-S2 heard no S3-S4 Abdomen: Soft nontender no renal bruit no CVA tenderness no suprapubic fullness no organomegaly, flanks are dull abdomen is distended moderate to severe Extremity: Minimal edema dry skin no peripheral cyanosis pulses palpable, fistula palpable Neurological: Alert awake follows command grossly nonfocal examination Back: Nontender thoracolumbar spine Musculoskeletal: No joint effusion noted Skin: No petechial rash/noted Assessment and plan End-stage renal disease: Patient is currently in maintenance of her dialysis on Tuesday and Tuesday his current dialysis access is for sure and his 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, stable Ascites etiology unclear at this time patient must follow with cardiology as well as GI physician, he was advised to follow up with [place] gastro[facility] Current labs: Hemoglobin 10.4 satisfactory potassium 5.3 mildly elevated calcium 8.8 Abnormal troponin likely due to end-stage renal disease, patient will benefit from cardiology evaluation in my opinion Hypertension: Monitor and follow currently stable mild bradycardia asymptomatic Would like to check his adequacy from the dialysis clinic Must maintain fluid restriction sodium restriction Monitor dialysis-related labs including phosphorus and PTH Adequately counseled and educated regarding diet plan lifestyle changes, patient does have history of chronic noncompliance in the past All renal related issues were discussed with patient We'll continue to follow and make a renal standpoint Counseled and educated to get further education from [employer] and related links, and if any further question to clarify with me We'll continue to follow and make recommendations from renal standpoint If you have any questions please feel free to contact me at [phone] Medications and Allergies Allergies Allergy/AdvReac Type Severity Reaction Status Date / Time heparin Allergy lowers Verified 02/19/17 13:22 platelets Home Medications Medication Instructions Recorded Confirmed Last Taken Type Dialyvite 800-Zinc 15 mg Tab 800 mg PO QDAY 02/15/17 03/19/17 Unknown History Losartan Potassium 100 mg PO QDAY 02/15/17 03/19/17 Unknown History Zofran TAB 4 mg PO PRN PRN MDD nausea 02/15/17 03/19/17 Unknown History hydrOXYzine 25 mg PO DAILY MDD 25 02/15/17 03/19/17 Unknown History Vitamin D3 2,000 unit 2,000 units PO QDAY #30 03/09/17 03/19/17 Unknown Rx Carvedilol [Coreg] 12.5 mg PO BID tablet 03/20/17 Unknown Rx Docusate Sodium [Colace CAP] 100 mg PO QDAY capsule 03/20/17 Unknown Rx Losartan [Cozaar] 100 mg PO QDAY tablet 03/20/17 Unknown Rx Pantoprazole [Protonix TAB] 40 mg PO QAM tablet 03/20/17 Unknown Rx Sertraline [Zoloft] 100 mg PO QDAY tablet 03/20/17 Unknown Rx Zolpidem [Ambien] 5 mg PO QHS PRN tablet 03/20/17 Unknown Rx cloNIDine [Catapres] 0.3 mg PO TID tablet 03/20/17 Unknown Rx hydrALAZINE [Apresoline TAB] 25 mg PO Q8HR tablet 03/20/17 Unknown Rx traZODone [Desyrel] 100 mg PO QHS tablet 03/20/17 Unknown Rx Active Meds: Active Medications Acetaminophen (Tylenol) 650 mg PO Q4H PRN PRN Reason: Pain MILD(1-3)/Fever >100.5/JENKINS Bisacodyl (Dulcolax) 10 mg SD QDAY PRN PRN Reason: Constipation unrelieved by MOM Carvedilol (Coreg) 12.5 mg PO BID [facility] Last Admin: 03/19/17 10:42 Dose: 12.5 mg Clonidine HCl (Catapres) 0.3 mg PO TID [facility] Last Admin: 03/19/17 10:51 Dose: 0.3 mg Docusate Sodium (Colace) 100 mg PO QDAY [facility] Last Admin: 03/19/17 10:41 Dose: 100 mg Hydroxyzine HCl (Atarax) 25 mg PO DAILY [facility] Last Admin: 03/19/17 10:43 Dose: 25 mg Losartan Potassium (Cozaar) 100 mg PO QDAY [facility] Last Admin: 03/19/17 10:40 Dose: 100 mg Magnesium Hydroxide (Milk Of Magnesia) 30 ml PO Q4H PRN PRN Reason: Constipation Morphine Sulfate (Morphine) 2 mg IV Q4H PRN PRN Reason: Pain, Moderate (4-6) Morphine Sulfate (Morphine) 4 mg IV Q4H PRN PRN Reason: Pain , Severe (7-10) Last Admin: 03/19/17 10:42 Dose: 4 mg Multivit/Ca Carb/B Cmplx/FA/Prenat (Renal Caps) 1 cap PO QDAY [facility] Last Admin: 03/19/17 10:41 Dose: 1 cap Ondansetron HCl (Zofran) 4 mg IV Q8H PRN PRN Reason: N/V unrelieved by Reglan Last Admin: 03/19/17 10:42 Dose: 4 mg Pantoprazole Sodium (Pro[facility]ix) [facility] [place] Last Admin: 03/19/17 10:41 Dose: 40 mg Sertraline HCl (Zoloft) 100 mg PO QDAY [facility] Last Admin: 03/19/17 10:42 Dose: 100 mg Trazodone HCl (Desyrel) 100 mg PO QHS [facility] Zolpidem Tartrate (Ambien) 5 mg PO QHS PRN PRN Reason: Insomnia Exam - Vital Signs Vital signs: Vital Signs Temp Pulse Resp BP Pulse Ox 98.9 F 81 18 176/113 100 03/18/17 15:57 03/18/17 15:57 03/18/17 15:57 03/18/17 15:57 03/18/17 15:57 Results - Lab Results 03/19/17 06:06 03/19/17 06:06 Most recent lab results Calcium 8.8 mg/dL (8.4-10.2) 03/19/17 06:06
[2017-03-19] MEDS ORDERED: NACL 0.9% 100 ML IV PRN (12:50)
--- NOTE | 2017-03-19 13:45 | Progress Note ---
Assessment and Plan End-stage renal disease: Nephrology on board Continue management per his recommendations Right-sided pain: Troponins are elevated. However it could be from his end- stage renal disease. Patient denies any chest pain at this time Rule out musculoskeletal pain Hypertension: Poorly controlled. BP meds adjusted Anemia of renal disease: No overt bleed Subjective Date of service: 03/19/17 Interval history: Patient is awake and alert Him plaints of pain in the right side of the body Denies any chest pain shortness of breath fever or chills Lab results reviewed Vital signs reviewed Objective - Constitutional Vitals: Vital Signs - 12hr 03/19/17 03/19/17 03/19/17 01:41 02:36 04:00 Temperature 98.2 F Pulse Rate 76 82 76 Respiratory 14 18 Rate Blood Pressure 191/113 153/102 O2 Sat by Pulse 92 99 Oximetry 03/19/17 03/19/17 03/19/17 05:05 08:54 10:40 Temperature 98.4 F Pulse Rate 70 85 85 Respiratory 18 Rate Blood Pressure 158/92 167/111 167/111 O2 Sat by Pulse 100 99 Oximetry 03/19/17 03/19/17 03/19/17 10:42 10:51 11:53 Temperature Pulse Rate 85 85 69 Respiratory 16 Rate Blood Pressure 167/111 167/111 O2 Sat by Pulse Oximetry 03/19/17 11:56 Temperature Pulse Rate 74 Respiratory Rate Blood Pressure 170/110 O2 Sat by Pulse 100 Oximetry General appearance: Present: no acute distress - EENT Eyes: PERRL, EOM intact ENT: hearing intact, clear oral mucosa - Neck Neck: supple, normal ROM - Respiratory Respiratory effort: normal Respiratory: bilateral: CTA - Cardiovascular Rhythm: regular Heart Sounds: Present: S1 & S2 Extremities: No edema - Gastrointestinal General gastrointestinal: Present: soft, non-tender. Absent: hepatomegaly, splenomegaly - Integumentary Integumentary: clear - Musculoskeletal Musculoskeletal: strength equal bilaterally - Neurologic Neurologic: no focal deficits, moves all extremities - Psychiatric Psychiatric: appropriate mood/affect - Labs CBC & Chem 7: 03/19/17 06:06 03/19/17 06:06 Labs: Abnormal lab results 03/18/17 03/18/17 03/18/17 Range/Units 16:20 16:20 20:31 RBC 3.16 L (3.65-5.03) M/mm3 Hgb 9.0 L (11.8-15.2) gm/dl Hct 27.7 L (35.5-45.6) % RDW 17.6 H (13.2-15.2) % [place] % (Auto) 9.1 H (0.0-7.3) % Seg Neutrophils % 70.9 H (40.0-70.0) % Sodium 146 H (137-145) mmol/L Potassium (3.6-5.0) mmol/L Chloride 96.2 L (98-107) mmol/L Carbon Dioxide 33 H (22-30) mmol/L BUN 37 H (9-20) mg/dL Creatinine 6.1 H (0.8-1.5) mg/dL Glucose (75-100) mg/dL Troponin T 0.353 H* 0.351 H* (0.00-0.029) ng/mL Albumin (3.9-5) g/dL 03/18/17 03/19/17 03/19/17 Range/Units 22:47 06:06 06:06 RBC (3.65-5.03) M/mm3 Hgb 10.4 L (11.8-15.2) gm/dl Hct 32.5 L (35.5-45.6) % RDW 18.0 H (13.2-15.2) % [place] % (Auto) 9.9 H (0.0-7.3) % Seg Neutrophils % (40.0-70.0) % Sodium (137-145) mmol/L Potassium 5.3 H (3.6-5.0) mmol/L Chloride 92.5 L (98-107) mmol/L Carbon Dioxide (22-30) mmol/L BUN 41 H (9-20) mg/dL Creatinine 6.7 H (0.8-1.5) mg/dL Glucose 66 L (75-100) mg/dL Troponin T 0.348 H* (0.00-0.029) ng/mL Albumin 3.3 L (3.9-5) g/dL
[2017-03-19] MEDS: APRESOLINE PO SCH ×2 (14:25→21:40)
[2017-03-19] MEDS ORDERED: NON-FORMULARY (Trazodone 100 MG) PO SCH (18:00)
[2017-03-19] MEDS ORDERED: DESYREL PO SCH (22:00)
[2017-03-20] MEDS: MORPHINE IV PRN ×2 (03:51→10:15)
[2017-03-20] MEDS: ZOFRAN IV PRN (03:51)
[2017-03-20] MEDS: APRESOLINE PO SCH (05:40)
--- NOTE | 2017-03-20 07:39 | Progress Note ---
Subjective Interval history: Patient was seen today for follow-up, on many renal related issues still continues to have right-sided pain Better aware about renal related issues, patient tolerated dialysis treatment well yesterday no cramping pain Interdisciplinary notes were reviewed Vitals labs intake and output medications were reviewed from today Allergies: Reviewed Social history: Reviewed Family history: Reviewed Physical examination HEENT: Oral mucosa moist no pharyngeal erythema Neck: Supple no JVD Chest: Clear to auscultation no crackles rales or wheezes Heart: Regular rate and rhythm S1-S2 heard no S3-S4 Abdomen:soft distended dull flanks, minimal tenderness Extremity: Mild edema dry skin no peripheral cyanosis pulses palpable, fistula appears to be slightly tense Neurological: Alert awake Musculoskeletal: No joint effusion noted Assessment and plan End-stage renal disease: Patient did receive his hemodialysis treatment yesterday tolerated well without any problems Still continues to have right-sided pain etiology of which is unclear? Musculoskeletal, primary team following ? Related to severe ascites that needs to be drained Patient's fistula appears to be slightly tense he will need to be seen and followed by vascular surgery last evaluation was more than a year ago he has been followed by [facility] vascular Patient has been noted to have severe ascites CT scan did not show any evidence of pulmonary embolism or dissection there is patchy infiltration/atelectasis of the left lower lobe, I believe partly his pain is resulting from extensive ascites Chronic intermittent ascites patient was advised to follow up with [place] [facility] he has required paracentesis up until 2 weeks ago and was seen by Dr. James Sawyer here Labs were discussed with patient explained and simple [place] does have good understanding off renal related issues, Will continue to follow and make recommendation from renal standpoint Objective - Vital Signs Vital signs: Vital Signs - 12hr 03/19/17 03/19/17 03/20/17 20:07 23:31 04:21 Temperature 98.1 F 98.4 F Pulse Rate 70 79 63 Respiratory 18 18 Rate Blood Pressure 175/101 152/94 O2 Sat by Pulse 100 98 Oximetry 03/20/17 04:58 Temperature 98.2 F Pulse Rate 64 Respiratory 18 Rate Blood Pressure 121/78 O2 Sat by Pulse 100 Oximetry - Lab 03/19/17 06:06 03/19/17 06:06 Most recent lab results Calcium 8.8 mg/dL (8.4-10.2) 03/19/17 06:06
[2017-03-20] MEDS: Renal Caps PO SCH (10:15)
[2017-03-20] MEDS: ATARAX PO SCH (10:15)
[2017-03-20] MEDS: COLACE PO SCH (10:16)
[2017-03-20] MEDS: PROTONIX PO SCH (10:16)
[2017-03-20] MEDS: ZOLOFT PO SCH (10:16)
[2017-03-20] MEDS: COZAAR PO SCH (10:16)
[2017-03-20] MEDS: COREG PO SCH (10:17)
[2017-03-20 10:18] VITALS: BP 121/74
--- NOTE | 2017-03-20 13:17 | Discharge Summary ---
Providers - Providers Date of Admission: 03/18/17 23:34 Date of discharge: 03/20/17 Attending physician: MIRA BECERRIL 03/18/17 23:43 Consult to Physician [CONS] Routine Consulting Provider: OLESYA ELLIOTT Reason For Exam: ESRD on HD Place consult to:: umu Notified:: yes Was contact made?: Yes Primary care physician: JOHN SMITH Hospitalization Condition: Fair Pertinent studies: CTA of the chest shows no evidence of pulmonary embolism CT of the abdomen and pelvis was unremarkable except for ascites and possible splenic varices Hospital course: Patient was admitted to telemetry floor for right-sided chest pain He has chronic pain and apparently goes to pain management clinic Presently denies any pain Denies any exertional chest pain Patient is medically stable for discharge He states he does not need any pain prescriptions or any prescriptions for his regular medications He is medically stable for discharge Assessment and Plan End-stage renal disease: Nephrology on board Continue management per his recommendations Right-sided pain: Troponins are elevated. However it could be from his end- stage renal disease. Patient denies any chest pain at this time Rule out musculoskeletal pain Hypertension: Poorly controlled. BP meds adjusted Anemia of renal disease: No overt bleed Disposition: [facility]-01 TO HOME OR SELFCARE Time spent for discharge: 33 min Core Measure Documentation - Palliative Care Palliative Care/ Comfort Measures: Not Applicable - Core Measures Any of the following diagnoses?: none Exam - Constitutional Vitals: Temp Pulse Resp BP Pulse Ox 97.6 F 68 18 121/74 100 03/20/17 08:51 03/20/17 08:51 03/20/17 08:51 03/20/17 10:17 03/20/17 08:51 General appearance: Present: no acute distress - EENT Eyes: Present: PERRL, EOM intact ENT: hearing intact, clear oral mucosa - Neck Neck: Present: supple, normal ROM - Respiratory Respiratory effort: normal Respiratory: bilateral: CTA - Cardiovascular Rhythm: regular Heart Sounds: Present: S1 & S2 - Extremities Extremities: No edema - Abdominal General gastrointestinal: Present: soft, non-tender - Rectal Rectal Exam: deferred - Integumentary Integumentary: Present: clear - Musculoskeletal Musculoskeletal: strength equal bilaterally Plan Activity: advance as tolerated Weight Bearing Status: Full Weight Bearing Diet: regular, low fat, low cholesterol Follow up with: JOHN SMITH MD [Primary Care Provider] - 3-5 Days
== END 2017-03-20 18:11 | disposition home or self-care (01) | DRG 682 ==
LOC: ED 14:16 → 3A 23:34 → 4A 03-19 00:39
PROVIDERS: ADMIT Internal Medicine; ATTEND Internal Medicine
PROC: 5A1D70Z Performance of Urinary Filtration, Intermittent, Less than 6 Hours Per Day (ICD-10-PCS; principal; 2017-03-19)
DX: I12.0 Hypertensive chronic kidney disease with stage 5 chronic kidney disease or end stage renal disease (principal); N18.6 End stage renal disease; R18.8 Other ascites; Z68.1 Body mass index [BMI] 19.9 or less, adult; E44.0 Moderate protein-calorie malnutrition; N25.81 Secondary hyperparathyroidism of renal origin; G89.29 Other chronic pain; R07.81 Pleurodynia; D63.1 Anemia in chronic kidney disease; K21.9 Gastro-esophageal reflux disease without esophagitis; R09.1 Pleurisy; Z79.899 Other long term (current) drug therapy; Z91.19 Patient's noncompliance with other medical treatment and regimen; Z71.89 Other specified counseling
CPT/HCPCS: 36415; 71046; 71275; 74177; 80048; 80053; 80061; 83036; 84484; 85025; 93005; 93010; 96374; 96375; 99406; J2270; J2405; Q9967

== ENCOUNTER 2017-04-25 19:42 | Inpatient (IN) | payer MEDICARE ==
[2017-04-25 22:19] LABS: Basophils # (Auto) 0.1 K/mm3 (0.0-0.1); Basophils % (Auto) 1.3 % (0.0-1.8); Eosinophils # (Auto) 0.2 K/mm3 (0.0-0.4); Hematocrit 26.7 % (35.5-45.6); Hemoglobin 8.2 gm/dl (11.8-15.2); Lymphocytes # (Auto) 2.1 K/mm3 (1.2-5.4); Lymphocytes % (Auto) 20.5 % (13.4-35.0); Mean Corpuscular HGB Conc 31 % (32-34); Mean Corpuscular Hemoglobin 27 pg (28-32); Mean Corpuscular Volume 87 fl (84-94); Monocytes # (Auto) 0.8 K/mm3 (0.0-0.8); Monocytes % (Auto) 7.5 % (0.0-7.3); Platelet Count 314 K/mm3 (140-440); Red Blood Count 3.06 M/mm3 (3.65-5.03)
[2017-04-25 22:45] LABS: Albumin 3.2 g/dL (3.9-5)
--- NOTE | 2017-04-25 22:51 | XRay Report ---
FINAL REPORT PROCEDURE: XR CHEST ROUTINE 2V TECHNIQUE: PA and lateral chest radiographs were obtained. CPT 85936 HISTORY: sob COMPARISON: 03/18/2017 FINDINGS: Heart: There is mild cardiomegaly. Mediastinum/Vessels: Normal. Lungs/Pleural space: Mild degree left pleural effusion is noted. Subsegment atelectatic changes are noted in the left lung base.. Bony thorax: No acute osseous abnormality. Other: IMPRESSION: Mild degree left pleural effusion. Any underlying infiltrates cannot be excluded. Mild cardiomegaly.
--- NOTE | 2017-04-26 13:24 | Emergency Department Report ---
ED General Adult HPI - General Chief complaint: Abdominal Pain Stated complaint: SOB/ABD/BACK PAIN/ FATIGUE Time Seen by Provider: 04/26/17 13:22 Source: patient Mode of arrival: Ambulatory Limitations: No Limitations - History of Present Illness Initial comments: Patient presents to the emergency department last night at approximately 10:00 complaining of abdominal and back pain. He has been admitted here multiple times before for abdominal pain. Admission was in early March. That time he had a CTA which showed no pulmonary embolism. He had a CT of his abdomen and pelvis which showed some ascites and a question of splenic varices. It appears his back and abdominal pain is really quite chronic. He denies any recent fever or chills. He has not been vomiting. Today is his dialysis today. -: Gradual, days(s), year(s) (days to years) Location: back, abdomen Radiation: non-radiation Quality: aching Consistency: intermittent Improves with: none Worsens with: none Associated Symptoms: shortness of breath (dyspnea on exertion and orthopnea). denies: chest pain, cough, diaphoresis, fever/chills, nausea/vomiting Treatments Prior to Arrival: none - Related Data Home Medications Medication Instructions Recorded Confirmed Last Taken Dialyvite 800-Zinc 15 mg Tab 800 mg PO QDAY 02/15/17 03/19/17 Unknown Losartan Potassium 100 mg PO QDAY 02/15/17 03/19/17 Unknown Zofran TAB 4 mg PO PRN PRN MDD nausea 02/15/17 03/19/17 Unknown hydrOXYzine 25 mg PO DAILY MDD 25 02/15/17 03/19/17 Unknown Previous Rx's Medication Instructions Recorded Last Taken Type Vitamin D3 2,000 unit 2,000 units PO QDAY #30 03/09/17 Unknown Rx Carvedilol [Coreg] 12.5 mg PO BID tablet 03/20/17 Unknown Rx Docusate Sodium [Colace CAP] 100 mg PO QDAY capsule 03/20/17 Unknown Rx Losartan [Cozaar] 100 mg PO QDAY tablet 03/20/17 Unknown Rx Pantoprazole [Protonix TAB] 40 mg PO QAM tablet 03/20/17 Unknown Rx Sertraline [Zoloft] 100 mg PO QDAY tablet 03/20/17 Unknown Rx Zolpidem [Ambien] 5 mg PO QHS PRN tablet 03/20/17 Unknown Rx cloNIDine [Catapres] 0.3 mg PO TID tablet 03/20/17 Unknown Rx hydrALAZINE [Apresoline TAB] 25 mg PO Q8HR tablet 03/20/17 Unknown Rx traZODone [Desyrel] 100 mg PO QHS tablet 03/20/17 Unknown Rx Allergies Allergy/AdvReac Type Severity Reaction Status Date / Time heparin Allergy lowers Verified 02/19/17 13:22 platelets ED Review of Systems ROS: Stated complaint: SOB/ABD/BACK PAIN/ FATIGUE Other details as noted in HPI Constitutional: denies: chills, fever Eyes: denies: eye pain, eye discharge, vision change ENT: denies: ear pain, throat pain Respiratory: shortness of breath, SOB with exertion. denies: cough Cardiovascular: denies: chest pain, palpitations Endocrine: no symptoms reported Gastrointestinal: as per HPI, abdominal pain. denies: nausea, diarrhea Genitourinary: denies: urgency, dysuria Musculoskeletal: back pain. denies: joint swelling, arthralgia Skin: denies: rash, lesions Neurological: denies: headache, weakness, paresthesias Psychiatric: denies: anxiety, depression Hematological/Lymphatic: denies: easy bleeding, easy bruising ED Past Medical Hx - Past Medical History Previous Medical History?: Yes Hx Hypertension: Yes Hx GERD: Yes Hx Renal Disease: Yes (HD ( / / Sat)) Additional medical history: Hidradenitis - Surgical History Past Surgical History?: Yes Additional Surgical History: PD CATHETER - AND REMOVAL. AV FISTULA. LYMPH NODES REMOVED LEFT GROIN. TONSILLECTOMY. Patient does have a history of peritonitis with previous PD - Social History Smoking Status: Never Smoker Substance Use Type: None - Medications Home Medications: Home Medications Medication Instructions Recorded Confirmed Last Taken Type Dialyvite 800-Zinc 15 mg Tab 800 mg PO QDAY 02/15/17 03/19/17 Unknown History Losartan Potassium 100 mg PO QDAY 02/15/17 03/19/17 Unknown History Zofran TAB 4 mg PO PRN PRN MDD nausea 02/15/17 03/19/17 Unknown History hydrOXYzine 25 mg PO DAILY MDD 25 02/15/17 03/19/17 Unknown History Vitamin D3 2,000 unit 2,000 units PO QDAY #30 03/09/17 03/19/17 Unknown Rx Carvedilol [Coreg] 12.5 mg PO BID tablet 03/20/17 Unknown Rx Docusate Sodium [Colace CAP] 100 mg PO QDAY capsule 03/20/17 Unknown Rx Losartan [Cozaar] 100 mg PO QDAY tablet 03/20/17 Unknown Rx Pantoprazole [Protonix TAB] 40 mg PO QAM tablet 03/20/17 Unknown Rx Sertraline [Zoloft] 100 mg PO QDAY tablet 03/20/17 Unknown Rx Zolpidem [Ambien] 5 mg PO QHS PRN tablet 03/20/17 Unknown Rx cloNIDine [Catapres] 0.3 mg PO TID tablet 03/20/17 Unknown Rx hydrALAZINE [Apresoline TAB] 25 mg PO Q8HR tablet 03/20/17 Unknown Rx traZODone [Desyrel] 100 mg PO QHS tablet 03/20/17 Unknown Rx ED Physical Exam - General Limitations: No Limitations General appearance: alert, in no apparent distress - Head Head exam: Present: atraumatic, normocephalic - Eye Eye exam: Present: normal appearance, PERRL, EOMI. Absent: scleral icterus - ENT ENT exam: Present: normal exam, mucous membranes moist - Neck Neck exam: Present: normal inspection. Absent: tenderness, meningismus - Respiratory Respiratory exam: Present: normal lung sounds bilaterally. Absent: respiratory distress - Cardiovascular Cardiovascular Exam: Present: regular rate, normal rhythm. Absent: systolic murmur, diastolic murmur, rubs, gallop - GI/Abdominal GI/Abdominal exam: Present: soft, distended (consider ascites but not tense), normal bowel sounds. Absent: tenderness, guarding, rebound, rigid - Rectal Rectal exam: Present: deferred - Extremities Exam Extremities exam: Present: pedal edema, other (bilateral pretibial edema) - Back Exam Back exam: Present: normal inspection - Neurological Exam Neurological exam: Present: alert, oriented X3, CN II-XII intact. Absent: motor sensory deficit - Psychiatric Psychiatric exam: Present: normal mood, flat affect - Skin Skin exam: Present: warm, dry, intact, normal color. Absent: rash ED Course Vital Signs 04/25/17 04/26/17 21:54 14:12 Temperature 98.1 F Pulse Rate 88 Respiratory 17 20 Rate Blood Pressure 185/117 O2 Sat by Pulse 99 Oximetry - Reevaluation(s) Reevaluation #1: I spoke to Lu the nurse practitioner for a sudden [place] nephrology. I requested dialysis orders. Just the case with Dr. Stuart who will be admitting the patient. It would appear at this juncture that his abdominal and back pain is chronic. He does have a potassium of 6 so he will need dialysis. 04/26/17 14:23 ED Medical Decision Making - Lab Data Result diagrams: 04/25/17 22:00 04/25/17 22:00 Laboratory Results - last 24 hr 04/25/17 04/25/17 22:00 22:00 WBC 10.1 RBC 3.06 L Hgb 8.2 L Hct 26.7 L MCV 87 MCH 27 L MCHC 31 L RDW 19.0 H Plt Count 314 Lymph % (Auto) 20.5 [place] % (Auto) 7.5 H Eos % (Auto) 2.0 Baso % (Auto) 1.3 Lymph # 2.1 Bent # 0.8 Eos # 0.2 Baso # 0.1 Seg Neutrophils % 68.7 Seg Neutrophils # 6.9 Sodium 138 Potassium 6.0 H Chloride 93.1 L Carbon Dioxide 27 Anion Gap 24 BUN 68 H Creatinine 6.0 H Estimated GFR 11 BUN/Creatinine Ratio 11 Glucose 88 Calcium 9.0 Total Bilirubin 0.40 AST 18 ALT 13 Alkaline Phosphatase 128 Total Protein 7.5 Albumin 3.2 L Albumin/Globulin Ratio 0.7 Critical care attestation.: If time is entered above; I have spent that time in minutes in the direct care of this critically ill patient, excluding procedure time. ED Disposition Clinical Impression: ESRD needing dialysis, Hyperkalemia, Uncontrolled hypertension Abdominal pain Qualifiers: Abdominal location: generalized Qualified Code(s): R10.84 - Generalized abdominal pain Anemia Qualifiers: Anemia type: unspecified type Qualified Code(s): D64.9 - Anemia, unspecified Disposition: DC-09 OP ADMIT IP TO THIS HOSP Is pt being admited?: Yes Does the pt Need Aspirin: Yes Condition: Stable Instructions: Hypertension (ED) Referrals: SOTERO BARNES MD [Primary Care Provider] - 3-5 Days Time of Disposition: 14:25
[2017-04-26] MEDS ORDERED: NORCO 5/325 PO ONE (14:16)
[2017-04-26] MEDS ORDERED: NORMODYNE IV ONE (14:17)
[2017-04-26] MEDS ORDERED: TYLENOL PO PRN (14:35)
--- NOTE | 2017-04-26 14:35 | History and Physical Report ---
History of Present Illness Chief complaint: I hurt all over History of present illness: 27 YO Male with ESRD on HD(T,R,Sa), Noncompliance presents to ED for evaluation. Pt states that he has been feeling weak, tired, and experienced shortness of breath for the past 3 days with worsening symptoms over the past 12 hours. Pt was driven to ED by family for further care and evaluation. Pt seen and evaluated in ED and found to have ESRD complicated by fluid overload, as well as hypertensive urgency, hyperkalemia, and respiratory failure. Pt denies fever, chills, CP, Palpitations, NVD, recent ill contacts, productive cough, BRBPR, Headache, vertigo, or recent ill contacts. Nephrology consulted in ED for urgent dialysis. Past History Past Medical History: ESRD, hypertension Past Surgical History: Other (LUE AVF) Social history: single, prescription drug abuse. denies: smoking, alcohol abuse Family history: hypertension Medications and Allergies Allergies Allergy/AdvReac Type Severity Reaction Status Date / Time heparin Allergy lowers Verified 02/19/17 13:22 platelets Home Medications Medication Instructions Recorded Confirmed Last Taken Type Dialyvite 800-Zinc 15 mg Tab 800 mg PO QDAY 02/15/17 03/19/17 Unknown History Losartan Potassium 100 mg PO QDAY 02/15/17 03/19/17 Unknown History Zofran TAB 4 mg PO PRN PRN MDD nausea 02/15/17 03/19/17 Unknown History hydrOXYzine 25 mg PO DAILY MDD 25 02/15/17 03/19/17 Unknown History Vitamin D3 2,000 unit 2,000 units PO QDAY #30 03/09/17 03/19/17 Unknown Rx Carvedilol [Coreg] 12.5 mg PO BID tablet 03/20/17 Unknown Rx Docusate Sodium [Colace CAP] 100 mg PO QDAY capsule 03/20/17 Unknown Rx Losartan [Cozaar] 100 mg PO QDAY tablet 03/20/17 Unknown Rx Pantoprazole [Protonix TAB] 40 mg PO QAM tablet 03/20/17 Unknown Rx Sertraline [Zoloft] 100 mg PO QDAY tablet 03/20/17 Unknown Rx Zolpidem [Ambien] 5 mg PO QHS PRN tablet 03/20/17 Unknown Rx cloNIDine [Catapres] 0.3 mg PO TID tablet 03/20/17 Unknown Rx hydrALAZINE [Apresoline TAB] 25 mg PO Q8HR tablet 03/20/17 Unknown Rx traZODone [Desyrel] 100 mg PO QHS tablet 03/20/17 Unknown Rx Review of Systems Constitutional: weakness, malaise Ears, nose, mouth and throat: no ear pain, no ear discharge, no tinnitis, no decreased hearing, no nose pain, no nasal congestion Cardiovascular: shortness of breath, no chest pain, no orthopnea, no palpitations, no dyspnea on exertion, no paroxysmal nocturnal dyspnea, no claudication Respiratory: no cough, no cough with sputum, no excessive sputum, no hemoptysis Gastrointestinal: no nausea, no vomiting, no diarrhea, no constipation Genitourinary Male: no dysuria, no hematuria, no flank pain, no urinary frequency, no urinary hesitancy Rectal: no pain, no incontinence, no bleeding Musculoskeletal: no neck stiffness, no neck pain, no shooting arm pain, no arm numbness/tingling, no low back pain, no shooting leg pain Integumentary: no rash, no pruritis, no redness, no sores Neurological: no head injury, no transient paralysis, no paralysis, no weakness , no parathesias, no numbness, no tingling Psychiatric: no anxiety, no memory loss, no change in sleep habits, no sleep disturbances, no insomnia, no hypersomnia, no change in appetite Endocrine: no cold intolerance, no heat intolerance, no polyphagia, no excessive thirst, no polydipsia, no polyuria Hematologic/Lymphatic: no easy bruising, no easy bleeding, no lymphadenopathy, no lymphedema Allergic/Immunologic: no urticaria, no allergic rhinitis, no wheezing, no persistent infections, no anaphylaxis, no angioedema Exam - Constitutional Vitals: Temp Pulse Resp BP Pulse Ox 98.1 F 79 16 179/109 99 04/26/17 14:29 04/26/17 14:29 04/26/17 14:29 04/26/17 14:29 04/26/17 14:29 General appearance: Present: mild distress, disheveled, malodorous - EENT Eyes: Present: PERRL ENT: hearing intact, clear oral mucosa - Neck Neck: Present: supple, normal ROM - Respiratory Respiratory effort: normal Respiratory: bilateral: diminished, rhonchi - Cardiovascular Heart Sounds: Present: S1 & S2. Absent: rub, click - Extremities Extremities: pulses symmetrical, No edema Peripheral Pulses: within normal limits - Abdominal General gastrointestinal: Present: soft, non-tender, non-distended, normal bowel sounds Male genitourinary: Present: normal - Integumentary Integumentary: Present: clear, warm, dry - Musculoskeletal Musculoskeletal: gait normal, strength equal bilaterally - Psychiatric Psychiatric: appropriate mood/affect, intact judgment & insight - Neurologic Neurologic: CNII-XII intact, moves all extremities Results - Labs CBC & Chem 7: 04/25/17 22:00 04/25/17 22:00 Labs: Abnormal lab results 04/25/17 04/25/17 Range/Units 22:00 22:00 RBC 3.06 L (3.65-5.03) M/mm3 Hgb 8.2 L (11.8-15.2) gm/dl Hct 26.7 L (35.5-45.6) % MCH 27 L (28-32) pg MCHC 31 L (32-34) % RDW 19.0 H (13.2-15.2) % [place] % (Auto) 7.5 H (0.0-7.3) % Potassium 6.0 H (3.6-5.0) mmol/L Chloride 93.1 L (98-107) mmol/L BUN 68 H (9-20) mg/dL Creatinine 6.0 H (0.8-1.5) mg/dL Albumin 3.2 L (3.9-5) g/dL Assessment and Plan - Patient Problems (1) ESRD needing dialysis Current Visit: Yes Status: Acute Plan to address problem: BMP, Fluid restriction, Nephrology consulted, dialysis as per renal team. (2) Hyperkalemia Current Visit: Yes Status: Acute Plan to address problem: Urgent dialysis, serial bmp, supportive care. (3) Acute hypoxemic respiratory failure Current Visit: Yes Status: Acute Plan to address problem: supplemental oxygen, nebulizer therapy, NIPPV as clinically indicated, urgent dialysis. (4) Anemia Current Visit: Yes Status: Acute Qualifiers: Anemia type: due to chronic kidney disease Chronic kidney disease stage: on chronic dialysis Qualified Code(s): N18.6 - End stage renal disease; D63.1 - Anemia in chronic kidney disease; D63.1 - Anemia in chronic kidney disease; Z99.2 - Dependence on renal dialysis; Z99.2 - Dependence on renal dialysis; Z99.2 - Dependence on renal dialysis; Z99.2 - Dependence on renal dialysis Plan to address problem: Serial cbc, epogen as per renal team. (5) Uncontrolled hypertension Current Visit: Yes Status: Acute Plan to address problem: monitor bp q shift, IV hydralazine prn, resume home medication. continue medical management. (6) Hypervolemia Current Visit: Yes Status: Acute Plan to address problem: dialysis as per renal team, fluid restriction, monitor uop q shift, (7) DVT prophylaxis Current Visit: Yes Status: Acute
[2017-04-26] MEDS ORDERED: AMBIEN PO PRN (14:37)
[2017-04-26 15:03] LABS: Calcium 8.7 mg/dL (8.4-10.2)
[2017-04-26] MEDS ORDERED: NACL 0.9 (PRIMING MACHINE ONLY DIALYSIS) MC ONE (17:07)
[2017-04-26] MEDS: CATAPRES PO SCH (19:44)
[2017-04-26] MEDS: APRESOLINE PO SCH ×2 (19:45→22:59)
[2017-04-26] MEDS ORDERED: MORPHINE IV PRN (21:41)
[2017-04-26] MEDS: ZOFRAN IV PRN (21:46)
[2017-04-26] MEDS ORDERED: DESYREL PO SCH (22:00)
[2017-04-26] MEDS: COREG PO SCH (22:59)
[2017-04-26] MEDS: MORPHINE IV PRN (23:11)
[2017-04-27] MEDS: APRESOLINE PO SCH (05:11)
[2017-04-27] MEDS: MORPHINE IV PRN ×2 (05:12→09:24)
[2017-04-27] MEDS: CATAPRES PO SCH (08:24)
[2017-04-27] MEDS ORDERED: KIONEX PO ONE (09:00)
--- NOTE | 2017-04-27 09:12 | Consultation ---
History of Present Illness - Reason for Consult Consult date: 04/27/17 end stage renal disease, hyperkalemia, accelerated hypertension Requesting physician: ANDI BURK - History of Present Illness History of present illness: 27 YO Male with ESRD on HD(T,R,Sa), Noncompliance presents to ED for evaluation. Pt states that he has been feeling weak, tired, and experienced shortness of breath for the past 3 days with worsening symptoms over the past 12 hours. Pt was driven to ED by family for further care and evaluation. Pt seen and evaluated in ED and found to have ESRD complicated by fluid overload, as well as hypertensive urgency, hyperkalemia, and respiratory failure. Pt denies fever, chills, CP, Palpitations, NVD, recent ill contacts, productive cough, BRBPR, Headache, vertigo, or recent ill contacts. Nephrology consulted in ED for urgent dialysis. Past History Past Medical History: ESRD, hypertension Past Surgical History: Other (LUE AVF) Social history: single, prescription drug abuse. denies: smoking, alcohol abuse Family history: hypertension Review of Systems Constitutional: weakness, malaise Ears, nose, mouth and throat: no ear pain, no ear discharge, no tinnitis, no decreased hearing, no nose pain, no nasal congestion Cardiovascular: shortness of breath, no chest pain, no orthopnea, no palpitations, no dyspnea on exertion, no paroxysmal nocturnal dyspnea, no claudication Respiratory: no cough, no cough with sputum, no excessive sputum, no hemoptysis Gastrointestinal: no nausea, no vomiting, no diarrhea, no constipation Genitourinary Male: no dysuria, no hematuria, no flank pain, no urinary frequency, no urinary hesitancy Rectal: no pain, no incontinence, no bleeding Musculoskeletal: no neck stiffness, no neck pain, no shooting arm pain, no arm numbness/tingling, no low back pain, no shooting leg pain Integumentary: no rash, no pruritis, no redness, no sores Neurological: no head injury, no transient paralysis, no paralysis, no weakness , no parathesias, no numbness, no tingling Psychiatric: no anxiety, no memory loss, no change in sleep habits, no sleep disturbances, no insomnia, no hypersomnia, no change in appetite Endocrine: no cold intolerance, no heat intolerance, no polyphagia, no excessive thirst, no polydipsia, no polyuria Hematologic/Lymphatic: no easy bruising, no easy bleeding, no lymphadenopathy, no lymphedema Allergic/Immunologic: no urticaria, no allergic rhinitis, no wheezing, no persistent infections, no anaphylaxis, no angioedema Past History Past Medical History: ESRD, hypertension Past Surgical History: Other (CARLOS ENRIQUE AVSherlyn) Social history: single, prescription drug abuse. denies: smoking, alcohol abuse Family history: hypertension Medications and Allergies Allergies Allergy/AdvReac Type Severity Reaction Status Date / Time heparin Allergy lowers Verified 02/19/17 13:22 platelets Home Medications Medication Instructions Recorded Confirmed Last Taken Type Dialyvite 800-Zinc 15 mg Tab 800 mg PO QDAY 02/15/17 04/26/17 Unknown History Zofran TAB 4 mg PO PRN PRN MDD nausea 02/15/17 04/26/17 Unknown History Vitamin D3 2,000 unit 2,000 units PO QDAY #30 03/09/17 04/26/17 Unknown Rx Carvedilol [Coreg] 12.5 mg PO BID tablet 03/20/17 04/26/17 Unknown Rx Docusate Sodium [Colace CAP] 100 mg PO QDAY capsule 03/20/17 04/26/17 Unknown Rx Losartan [Cozaar] 100 mg PO QDAY tablet 03/20/17 04/26/17 Unknown Rx Pantoprazole [Protonix TAB] 40 mg PO QAM tablet 03/20/17 04/26/17 Unknown Rx Sertraline [Zoloft] 100 mg PO QDAY tablet 03/20/17 04/26/17 Unknown Rx Zolpidem [Ambien] 5 mg PO QHS PRN tablet 03/20/17 04/26/17 Unknown Rx cloNIDine [Catapres] 0.3 mg PO TID tablet 03/20/17 04/26/17 Unknown Rx hydrALAZINE [Apresoline TAB] 25 mg PO Q8HR tablet 03/20/17 04/26/17 Unknown Rx traZODone [Desyrel] 100 mg PO QHS tablet 03/20/17 04/26/17 Unknown Rx Cholecalciferol (Vitd3)/Vit K2 [D3 1 each PO DAILY 04/27/17 04/27/17 Unknown History + K2 Dots 1,000 Units Tab] Cyclobenzaprine [Flexeril 10 MG 10 mg PO DAILY 04/27/17 04/27/17 Unknown History TAB] Dialyvite 800-Zinc 15 mg Tab 15 mg PO DAILY 04/27/17 04/27/17 Unknown History Esomeprazole Magnesium [Nexium] 40 mg PO DAILY 04/27/17 04/27/17 Unknown History Active Meds: Active Medications Acetaminophen (Tylenol) 650 mg PO Q4H PRN PRN Reason: Pain MILD(1-3)/Fever >100.5/JENKINS Carvedilol (Coreg) 12.5 mg PO BID [facility]LY [facility], [facility] Last Admin: 04/26/17 22:59 Dose: 12.5 mg Cholecalciferol (Vitamin D3) 2,000 unit PO DAILY [facility], [facility] Clonidine HCl (Catapres) 0.3 mg PO TID [facility], [facility] Last Admin: 04/27/17 08:24 Dose: 0.3 mg Docusate Sodium (Colace) 100 mg PO QDAY [facility], [facility] Hydralazine HCl (Apresoline) 25 mg PO Q8HR [facility], [facility] Last Admin: 04/27/17 05:11 Dose: 25 mg Hydroxyzine HCl (Atarax) 25 mg PO DAILY [facility], [facility] Losartan Potassium (Cozaar) 100 mg PO QDAY [facility], [facility]1983 Morphine Sulfate (Morphine) 2 mg IV Q4H PRN PRN Reason: Pain, Moderate (4-6) Last Admin: 04/27/17 05:12 Dose: 2 mg Multivit/Ca Carb/B Cmplx/FA/Prenat (Renal Caps) 1 cap PO QDAY [facility], [facility]1983 Ondansetron HCl (Zofran) 4 mg IV Q8H PRN PRN Reason: N/V unrelieved by Forrest Last Admin: 04/26/17 21:46 Dose: 4 mg Pantoprazole Sodium (Protonix) 40 mg PO QAM [facility] Sertraline HCl (Zoloft) 100 mg PO QDAY [facility] Trazodone HCl (Desyrel) 100 mg PO QHS [facility] Last Admin: 04/26/17 22:59 Dose: 100 mg Zolpidem Tartrate (Ambien) 5 mg PO QHS PRN PRN Reason: Insomnia Exam - Vital Signs Vital signs: Vital Signs Temp Pulse Resp BP Pulse Ox 98.1 F 88 17 185/117 99 04/25/17 21:54 04/25/17 21:54 04/25/17 21:54 04/25/17 21:54 02/12/18 21:54 - Physical Exam Narrative exam: General appearance: Present: mild distress, disheveled, malodorous - EENT Eyes: Present: PERRL ENT: hearing intact, clear oral mucosa - Neck Neck: Present: supple, normal ROM - Respiratory Respiratory effort: normal Respiratory: bilateral: diminished, rhonchi - Cardiovascular Heart Sounds: Present: S1 & S2. Absent: rub, click - Extremities Extremities: pulses symmetrical, No edema Peripheral Pulses: within normal limits - Abdominal General gastrointestinal: Present: soft, non-tender, non-distended, normal bowel sounds Male genitourinary: Present: normal - Integumentary Integumentary: Present: clear, warm, dry - Musculoskeletal Musculoskeletal: gait normal, strength equal bilaterally - Psychiatric Psychiatric: appropriate mood/affect, intact judgment & insight - Neurologic Neurologic: CNII-XII intact, moves all extremities Results - Lab Results 04/25/17 22:00 04/26/17 14:29 Most recent lab results Calcium 8.7 mg/dL (8.4-10.2) 04/26/17 14:29 Assessment and Plan Impression * End-stage renal disease on maintenance hemodialysis * Symptomatic anemia * Hypertension * Hyperkalemia * Ascites Recommendations * s/p hd last pm, refuses HD today * Uf as tolerated with HD * Adjust diet and meds for ESRD state * No IV, BP or venipuncture in his access arm. * Avoid nephrotoxins * Renal diet * strict i/os * Thank you very much for the consultation. Shall follow along with you * can dc home from renal standpoint, follow up in hd in am
[2017-04-27] MEDS: ZOFRAN IV PRN (09:36)
[2017-04-27] MEDS ORDERED: ATARAX PO SCH (10:00)
[2017-04-27] MEDS ORDERED: NON-FORMULARY (Losartan Potassium 100 MG) PO SCH (10:00)
[2017-04-27] MEDS ORDERED: COZAAR PO SCH (10:00)
[2017-04-27] MEDS ORDERED: VITAMIN D3 2000 UNIT PO SCH (10:00)
[2017-04-27] MEDS ORDERED: VITAMIN D3 PO SCH (10:00)
[2017-04-27] MEDS ORDERED: Renal Caps PO SCH (10:00)
[2017-04-27] MEDS ORDERED: PROTONIX PO SCH (10:00)
[2017-04-27] MEDS ORDERED: HYDROXYZINE 25 MG PO SCH (10:00)
[2017-04-27] MEDS ORDERED: ZOLOFT PO SCH (10:00)
[2017-04-27] MEDS ORDERED: COLACE PO SCH (10:00)
[2017-04-27] MEDS ORDERED: DIALYVITE ZINC PO SCH (10:00)
--- NOTE | 2017-04-27 10:13 | Discharge Summary ---
Providers - Providers Date of Admission: 04/26/17 14:35 Date of discharge: 04/27/17 Attending physician: BRODY WALKER 04/27/17 08:50 Consult to Physician [CONS] Routine Consulting Provider: OLESYA ELLIOTT Reason For Exam: ESRD/HD Primary care physician: SOTERO BARNES MD Hospitalization Condition: Stable Disposition: DC-01 TO HOME OR SELFCARE Time spent for discharge: 31 min Core Measure Documentation - Palliative Care Palliative Care/ Comfort Measures: Not Applicable - Core Measures Any of the following diagnoses?: none Exam - Constitutional Vitals: Temp Pulse Resp BP Pulse Ox 97.5 F L 70 18 161/92 95 04/27/17 07:18 04/27/17 07:18 04/27/17 07:18 04/27/17 08:24 04/27/17 08:30 General appearance: Present: no acute distress, well-nourished - EENT Eyes: Present: PERRL, EOM intact - Neck Neck: Present: supple, normal ROM - Respiratory Respiratory effort: normal Respiratory: negative: rales, rhonchi, wheezing - Cardiovascular Rhythm: regular Heart Sounds: Present: S1 & S2 - Extremities Extremities: no ischemia, No edema - Abdominal General gastrointestinal: Present: soft, non-tender, non-distended, normal bowel sounds - Integumentary Integumentary: Present: clear, warm - Musculoskeletal Musculoskeletal: strength equal bilaterally - Psychiatric Psychiatric: appropriate mood/affect, cooperative - Neurologic Neurologic: CNII-XII intact, moves all extremities Plan Activity: no restrictions Diet: renal Additional Instructions: f/u Renal and HD per schedule Follow up with: SOTERO BARNES MD [Primary Care Provider] - 3-5 Days DENYS GARCIA MD [Staff Physician] - 7 Days
[2017-04-27] MEDS: COREG PO SCH (10:41)
[2017-04-27 10:42] VITALS: BP 161/109
== END 2017-04-27 11:25 | disposition home or self-care (01) | DRG 682 ==
LOC: ED 19:42 → 3A 04-26 14:35
PROVIDERS: ADMIT Internal Medicine; ATTEND Internal Medicine
PROC: 5A1D70Z Performance of Urinary Filtration, Intermittent, Less than 6 Hours Per Day (ICD-10-PCS; principal; 2017-04-26)
DX: I12.0 Hypertensive chronic kidney disease with stage 5 chronic kidney disease or end stage renal disease (principal); J96.01 Acute respiratory failure with hypoxia; N18.6 End stage renal disease; R18.8 Other ascites; E87.5 Hyperkalemia; D64.9 Anemia, unspecified; E86.1 Hypovolemia; K21.9 Gastro-esophageal reflux disease without esophagitis; Z79.899 Other long term (current) drug therapy; Z82.49 Family history of ischemic heart disease and other diseases of the circulatory system; D63.1 Anemia in chronic kidney disease
CPT/HCPCS: 36415; 71046; 80048; 80053; 83690; 85025; 93005; 93010; 96374; 99406; J2270; J2405; J7030

== ENCOUNTER 2017-06-01 08:29 | Day surgery (SDC) | payer MEDICARE ==
[~2017-06-01 08:29] MED LIST: ANCEF/STERILE WATER 2 GM/20 ML 2 GM/20 ML SYRINGE IV NR; NACL 0.9% 1000 ML 1,000 ML IV SCH
[2017-06-01 09:21] LABS: Calcium 8.8 mg/dL (8.4-10.2)
[2017-06-01] MEDS ORDERED: HEPARIN 10,000 UNITS/10 ML ONE (09:41)
[2017-06-01] MEDS ORDERED: NACL 0.9% 100 ML ONE (09:41)
[2017-06-01] MEDS ORDERED: NACL 0.9% 500 ML 500 ML ONE (09:42)
[2017-06-01] MEDS ORDERED: ANGIOMAX IV ONE (09:42)
[2017-06-01] MEDS ORDERED: ANCEF/STERILE WATER 2 GM/20 ML 2 GM/20 ML SYRINGE IV ONE (09:43)
--- NOTE | 2017-06-01 09:46 | Short Stay Summary ---
Short Stay Documentation Date of service: 06/01/17 - History Principal diagnosis: Malfunctioning dialysis access H&P: obtained from office - Allergies and Medications Current Medications: Allergies heparin Allergy (Verified 02/19/17 13:22) lowers platelets Home Medications Medication Instructions Recorded Confirmed Last Taken Type Dialyvite 800-Zinc 15 mg Tab 800 mg PO QDAY 02/15/17 06/01/17 05/31/17 History 800mg Zofran TAB 4 mg PO PRN PRN MDD nausea 02/15/17 06/01/17 05/31/17 History 4mg Vitamin D3 2,000 unit 2,000 units PO QDAY #30 03/09/17 06/01/17 05/31/17 Rx 2000 units Carvedilol [Coreg] 12.5 mg PO BID tablet 03/20/17 06/01/17 06/01/17 Rx 12.5mg Docusate Sodium [Colace CAP] 100 mg PO QDAY capsule 03/20/17 06/01/17 05/31/17 Rx 100mg Losartan [Cozaar] 100 mg PO QDAY tablet 03/20/17 06/01/17 06/01/17 Rx 100mg Pantoprazole [Protonix TAB] 40 mg PO QAM tablet 03/20/17 06/01/17 05/31/17 Rx 40mg Sertraline [Zoloft] 100 mg PO QDAY tablet 03/20/17 06/01/17 05/31/17 Rx 100mg Zolpidem [Ambien] 5 mg PO QHS PRN tablet 03/20/17 06/01/17 05/31/17 Rx 5mg cloNIDine [Catapres] 0.3 mg PO TID tablet 03/20/17 06/01/17 06/01/17 Rx 0.3mg hydrALAZINE [Apresoline TAB] 25 mg PO Q8HR tablet 03/20/17 06/01/17 05/31/17 Rx 25mg traZODone [Desyrel] 100 mg PO QHS tablet 03/20/17 06/01/17 05/31/17 Rx 100mg Cholecalciferol (Vitd3)/Vit K2 [D3 1 each PO DAILY 04/27/17 06/01/17 05/31/17 History + K2 Dots 1,000 Units Tab] 1 Cyclobenzaprine [Flexeril 10 MG 10 mg PO DAILY 04/27/17 06/01/17 05/31/17 History TAB] 10mg Esomeprazole Magnesium [Nexium] 40 mg PO DAILY 04/27/17 06/01/17 05/31/17 History 40mg Lisinopril [Zestril TAB] 40 mg PO DAILY 06/01/17 06/01/17 06/01/17 History 40mg Active Medications Cefazolin Sodium (Ancef/Sterile Water 2 Gm/20 Ml) 2 gm in 20 mls @ 80 mls/hr IV PREOP NR; Protocol Stop: 06/01/17 12:00 Sodium Chloride (Nacl 0.9% 1000 Ml) 1,000 mls @ 42 mls/hr IV DIRECT CHONG Last Admin: 06/01/17 09:44 Dose: 42 mls/hr - Brief post op/procedure progress note Date of procedure: 06/01/17 Pre-op diagnosis: Malfunctioning dialysis access Post-op diagnosis: same Procedure: LUE FGA and venoplasty Anesthesia: local Surgeon: SUDARSHAN VIVAS Estimated blood loss: minimal Pathology: none Condition: stable - Disposition Condition at discharge: Good Disposition: DC-01 TO HOME OR SELFCARE Short Stay Discharge Plan Activity: advance as tolerated Weight Bearing Status: Weight Bear as Tolerated Diet: renal Wound: keep clean and dry, per your surgeon's advice Follow up with: SOTERO BARNES MD [Primary Care Provider] - 7 Days
[2017-06-01] MEDS ORDERED: XYLOCAINE 2% INFILTRATI ONE (09:54)
[2017-06-01] MEDS: SUBLIMAZE ONE ×2 (10:17→10:33)
[2017-06-01] MEDS: VERSED ONE ×2 (10:17→10:33)
[2017-06-01] MEDS ORDERED: NACL 0.9% 500 ML IR ONE (10:24)
--- NOTE | 2017-06-01 10:46 | Operative Report ---
Operative Report Operative Report: EXAM: LEFT UPPER EXTREMITY FISTULOGRAM, VENOPLASTY CLINICAL INDICATION: PATIENT WITH PROLONGED BLEEDING AND PAIN WITH DIALYSIS CANNULATION DATE: 06/01/2017 PROCEDURE: Following an explanation of the risks, benefits and alternatives; written informed consent was obtained. The patient was brought to the angiographic suite and placed in supine position on the examination table. Initial evaluation of the left upper arm brachiocephalic fistula demonstrated some pulsatility and distention of to pseudoaneurysms. Patient's left upper arm was prepped and draped in the usual sterile fashion. 1% lidocaine was used for anesthesia. The fistula was cannulated towards the venous outflow using a 7 cm 21-gauge needle. A 0.018 guidewire was advanced centrally. The needle was exchanged for a micro-sheath and the 0.018 guidewire exchanged for a 0.035 guidewire the micro-sheath was then exchanged for a 7 Panamanian vascular sheath. Venography performed to the sheath demonstrates pseudoaneurysms at the site of cannulation with no significant stenosis. The cephalic arch demonstrates multifocal 90% stenosis. The central veins are widely patent. A 0.035 guidewire and 4 Panamanian vertebral catheter were then used across the stenosis within the cephalic arch. The guidewire was advanced centrally. The vertebral catheter was removed and venoplasty was performed first with a 7 mm x 60 mm balloon insufflated to 14 danica. There was residual circumferential stenosis at one location and a 6 mm x 40 mm conquest balloon was used to reduce the stenosis. A 7 mm x 60 mm Lutonix drug-coated balloon was then advanced across the stenosis and insufflated to nominal pressure for 3 minutes. Angioplasty imaging demonstrated reduction of the stenosis to less than 20%. The catheters, guidewires and she's were removed and hemostasis achieved at the exit site using 4-0 Vicryl suture and Dermabond. Sterile dressings were then applied. The patient tolerated the procedure well. There were no immediate post procedure complications. Conscious sedation was performed under the guidance of radiologic nursing. Continuous cardiopulmonary monitoring was utilized IMPRESSION: 1) Left upper extremity fistulogram demonstrating multifocal 90% stenosis involving the cephalic arch. Pseudoaneurysms are present within the body of the fistula at the cannulation sites. 2) Venoplasty of the cephalic arch stenosis with residual less than 20% stenosis as described.
[2017-06-01] MEDS ORDERED: BENADRYL PO NR (10:54)
[2017-06-01] MEDS ORDERED: BENADRYL PO ONE (10:55)
[2017-06-01 11:52] VITALS: BP 150/96
== END 2017-06-01 12:10 | disposition home or self-care (01) ==
LOC: CATHLABREC 08:29
PROVIDERS: ATTEND Radiology Diagnostic Radiology
DX: T82.590A Other mechanical complication of surgically created arteriovenous fistula, initial encounter (principal); I12.0 Hypertensive chronic kidney disease with stage 5 chronic kidney disease or end stage renal disease; N18.6 End stage renal disease; Z87.891 Personal history of nicotine dependence; Y83.2 Surgical operation with anastomosis, bypass or graft as the cause of abnormal reaction of the patient, or of later complication, without mention of misadventure at the time of the procedure
CPT/HCPCS: 36902; 80048; 99156; 99157; C1725; C1751; C1769; C1894; J0583; J0690; J2250; J3010; J7030; J7040; 36415; J1644; Q9967

== ENCOUNTER 2017-07-09 19:02 | Emergency (ER) | payer MEDICARE ==
[2017-07-09 19:13] VITALS: BP 169/96
[2017-07-09 20:07] LABS: Basophils # (Auto) 0.1 K/mm3 (0.0-0.1); Basophils % (Auto) 1.2 % (0.0-1.8); Eosinophils # (Auto) 0.3 K/mm3 (0.0-0.4); Eosinophils % (Auto) 4.3 % (0.0-4.3); Hematocrit 28.2 % (35.5-45.6); Lymphocytes # (Auto) 1.5 K/mm3 (1.2-5.4); Lymphocytes % (Auto) 18.4 % (13.4-35.0); Mean Corpuscular HGB Conc 32 % (32-34); Mean Corpuscular Hemoglobin 27 pg (28-32); Mean Corpuscular Volume 83 fl (84-94); Monocytes # (Auto) 0.5 K/mm3 (0.0-0.8); Monocytes % (Auto) 5.8 % (0.0-7.3); Platelet Count 219 K/mm3 (140-440); Red Blood Count 3.39 M/mm3 (3.65-5.03)
[2017-07-09 20:23] LABS: Calcium 8.9 mg/dL (8.4-10.2)
--- NOTE | 2017-07-09 20:36 | XRay Report ---
FINAL REPORT PROCEDURE: XR CHEST ROUTINE 2V TECHNIQUE: PA and lateral chest radiographs were obtained. CPT 08636 HISTORY: Shortness of breath. COMPARISON: Chest radiograph dated 04/25/2017. FINDINGS: Heart: Enlargement of the cardiac silhouette, somewhat globular. Mediastinum/Vessels: Normal. Lungs/Pleural space: Continued mild central vascular congestion with left greater than right bibasilar opacities and pleural effusions. Pleural effusion on the right is slightly increased compared to the prior exam and there is minimal thickening of the right fissure. Bony thorax: No acute osseous abnormality. Other: IMPRESSION: Stable enlargement of the cardiac silhouette, consider cardiomegaly but also consider pericardial effusion. Continued mild central vascular congestion with left greater than right bibasilar opacities and pleural effusions, effusions slightly increased on the right. Consider atelectasis, cannot exclude pneumonia.
== END 2017-07-09 19:33 | disposition left against medical advice (07) ==
LOC: ED 19:02
DX: R10.9 Unspecified abdominal pain (principal); R06.00 Dyspnea, unspecified; R07.89 Other chest pain; Z53.21 Procedure and treatment not carried out due to patient leaving prior to being seen by health care provider
CPT/HCPCS: 36415; 71046; 80048; 85025; 93005; 93010

== ENCOUNTER 2017-07-10 03:46 | Inpatient (IN) | payer MEDICARE ==
[2017-07-10] MEDS ORDERED: CATAPRES PO ONE (08:18)
[2017-07-10] MEDS ORDERED: APRESOLINE IV ONE (08:57)
--- NOTE | 2017-07-10 12:24 | Emergency Department Report ---
HPI - General Chief Complaint: Abdominal Pain Time Seen by Provider: 07/10/17 07:47 - HPI HPI: 27-year-old male presents to ED with chest pain, epigastric discomfort , history of end-stage renal disease on dialysis. Patient states he has recently been told that he had fluid around his heart, he was being admitted on Tuesday at the [facility] but left AMA. He stated he went home and his pain got worse yesterday he came to ED but left prior to being seen. His pain got worse today so he came back to ED. Patient denies any fever, chills, night sweats. He states accompanied by mild shortness or breath. He describes his pain as pressure, 6 out of 10, substernal area, without radiation. Patient denies any alleviating factors, but stated movement as an exacerbating factor. ED Past Medical Hx - Past Medical History Previous Medical History?: Yes Hx Hypertension: Yes Hx Congestive Heart Failure: No Hx Diabetes: No Hx GERD: Yes Hx Renal Disease: Yes (HD ( / / Tue)) Hx Asthma: No Hx COPD: No Additional medical history: Hidradenitis - Surgical History Additional Surgical History: PD CATHETER - AND REMOVAL. AV FISTULA. LYMPH NODES REMOVED LEFT GROIN. TONSILLECTOMY. Patient does have a history of peritonitis with previous PD - Social History Smoking Status: Current Every Day Smoker - Medications Home Medications: Home Medications Medication Instructions Recorded Confirmed Last Taken Type Dialyvite 800-Zinc 15 mg Tab 800 mg PO QDAY 02/15/17 07/10/17 07/09/17 History Zofran TAB 4 mg PO PRN PRN MDD nausea 02/15/17 07/10/17 07/09/17 History Vitamin D3 2,000 unit 2,000 units PO QDAY #30 03/09/17 07/10/17 07/09/17 Rx Carvedilol [Coreg] 12.5 mg PO BID tablet 03/20/17 07/10/17 07/09/17 Rx Docusate Sodium [Colace CAP] 100 mg PO QDAY capsule 03/20/17 07/10/17 07/09/17 Rx Losartan [Cozaar] 100 mg PO QDAY tablet 03/20/17 07/10/17 07/09/17 Rx Pantoprazole [Protonix TAB] 40 mg PO QAM tablet 03/20/17 07/10/17 07/09/17 Rx Sertraline [Zoloft] 100 mg PO QDAY tablet 03/20/17 07/10/17 07/09/17 Rx Zolpidem [Ambien] 5 mg PO QHS PRN tablet 03/20/17 07/10/17 07/09/17 Rx cloNIDine [Catapres] 0.3 mg PO TID tablet 03/20/17 07/10/17 07/09/17 Rx hydrALAZINE [Apresoline TAB] 25 mg PO Q8HR tablet 03/20/17 07/10/17 07/09/17 Rx traZODone [Desyrel] 100 mg PO QHS tablet 03/20/17 07/10/17 07/09/17 Rx Cholecalciferol (Vitd3)/Vit K2 [D3 1 each PO DAILY 04/27/17 07/10/17 07/09/17 History + K2 Dots 1,000 Units Tab] Cyclobenzaprine [Flexeril 10 MG 10 mg PO DAILY 04/27/17 07/10/17 07/09/17 History TAB] Esomeprazole Magnesium [Nexium] 40 mg PO DAILY 04/27/17 07/10/17 07/09/17 History Lisinopril [Zestril TAB] 40 mg PO DAILY 06/01/17 07/10/17 07/09/17 History ED Review of Systems ROS: Stated complaint: RECHECK Other details as noted in HPI Comment: All other systems reviewed and negative Cardiovascular: chest pain Gastrointestinal: abdominal pain, nausea. denies: vomiting Physical Exam - Physical Exam Vital Signs: Vital Signs 07/10/17 07/10/17 07/10/17 04:46 05:16 07:51 Temperature 97.5 F L 97.5 F L Pulse Rate 78 78 83 Respiratory 20 20 20 Rate Blood Pressure 174/100 Blood Pressure 174/100 193/110 [Left] O2 Sat by Pulse 100 100 97 Oximetry 07/10/17 07/10/17 07/10/17 07:53 09:18 09:29 Temperature Pulse Rate 88 Respiratory 20 20 Rate Blood Pressure 174/103 Blood Pressure 174/103 [Left] O2 Sat by Pulse 97 95 Oximetry 07/10/17 09:36 Temperature Pulse Rate 70 Respiratory 20 Rate Blood Pressure Blood Pressure 134/73 [Left] O2 Sat by Pulse 96 Oximetry Physical Exam: - Physical Exam Physical Exam: - General Limitations: No Limitations General appearance: alert, in no apparent distress. - Head Head exam: Present: atraumatic, normocephalic - Eye Eye exam: Present: normal appearance - ENT ENT exam: Present: mucous membranes moist - Neck Neck exam: Present: normal inspection - Respiratory Respiratory exam: Present: normal lung sounds bilaterally. Absent: respiratory distress - Cardiovascular Cardiovascular Exam: Present: normal rhythm, tachycardia. Absent: systolic murmur, diastolic murmur, rubs, gallop - GI/Abdominal GI/Abdominal exam: Present: soft, normal bowel sounds - Extremities Exam Extremities exam: Present: normal inspection - Back Exam Back exam: Present: normal inspection - Neurological Exam Neurological exam: Present: alert, oriented X3 - Psychiatric Psychiatric exam: normal affect and mood - Skin Skin exam: Present: warm, dry, intact, normal color. Absent: rash ED Course Vital Signs 07/10/17 07/10/17 07/10/17 04:46 05:16 07:51 Temperature 97.5 F L 97.5 F L Pulse Rate 78 78 83 Respiratory 20 20 20 Rate Blood Pressure 174/100 Blood Pressure 174/100 193/110 [Left] O2 Sat by Pulse 100 100 97 Oximetry 07/10/17 07/10/17 07/10/17 07:53 09:18 09:29 Temperature Pulse Rate 88 Respiratory 20 20 Rate Blood Pressure 174/103 Blood Pressure 174/103 [Left] O2 Sat by Pulse 97 95 Oximetry 07/10/17 09:36 Temperature Pulse Rate 70 Respiratory 20 Rate Blood Pressure Blood Pressure 134/73 [Left] O2 Sat by Pulse 96 Oximetry - Reevaluation(s) Reevaluation #1: 07/10/17 12:[address] 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 ED Medical Decision Making - Lab Data Result diagrams: 07/10/17 13:53 07/10/17 13:53 Critical care attestation.: If time is entered above; I have spent that time in minutes in the direct care of this critically ill patient, excluding procedure time. ED Disposition Clinical Impression: Pericardial effusion Disposition: OP ADMIT IP TO THIS HOSP Is pt being admited?: Yes Does the pt Need Aspirin: Yes Condition: Stable Referrals: PRIMARY CARE, [Primary Care Provider] - 3-5 Days
[2017-07-10 14:12] LABS: Basophils # (Auto) 0.1 K/mm3 (0.0-0.1); Basophils % (Auto) 1.1 % (0.0-1.8); Eosinophils # (Auto) 0.2 K/mm3 (0.0-0.4); Hematocrit 27.7 % (35.5-45.6); Hemoglobin 8.9 gm/dl (11.8-15.2); Lymphocytes # (Auto) 1.5 K/mm3 (1.2-5.4); Lymphocytes % (Auto) 23.6 % (13.4-35.0); Mean Corpuscular HGB Conc 32 % (32-34); Mean Corpuscular Hemoglobin 26 pg (28-32); Mean Corpuscular Volume 82 fl (84-94); Monocytes # (Auto) 0.4 K/mm3 (0.0-0.8); Monocytes % (Auto) 6.7 % (0.0-7.3); Platelet Count 191 K/mm3 (140-440); Red Blood Count 3.38 M/mm3 (3.65-5.03)
[2017-07-10 14:15] LABS: Red Cell Distribution Width 21.4 % (13.2-15.2)
--- NOTE | 2017-07-10 14:34 | History and Physical Report ---
History of Present Illness Chief complaint: My chest hurts History of present illness: 27 YO Male with ESRD on HD (T,R,Sa), HTN, GERD,Nicotine Dependence, Noncompliance presents to ED for evaluation. Pt states that he has experienced pain in his chest for the past 2 days with worsening symptoms over the past 1 day. Pt states that pain is 6/10, substernal, nonradiating, associated with shortness of breath, not worsened with exertion, or relieved with rest. Pt states that he was seen and evaluated at [facility] on Tuesday, but left AMA and was tole at that time that he had a pericardial effusion. Pt seen and evaluated in ED and found to have Atypical chest pain as well as ESRD. Pt denies fever, chills, Palpitations, recent ill contacts, productive cough, BRBPR , Headache, vertigo, skin rash, or ingestion of food/water from new/different sources. Nephrology consulted in ED. Past History Past Medical History: ESRD, GERD, hypertension Past Surgical History: tonsillectomy, Other (D CATHETER - AND REMOVAL. AV FISTULA. LYMPH NODES REMOVED LEFT GROIN. Patient does have a history of peritonitis with previous PD) Social history: single, smoking Family history: hypertension Medications and Allergies Allergies Allergy/AdvReac Type Severity Reaction Status Date / Time heparin Allergy lowers Verified 02/19/17 13:22 platelets Home Medications Medication Instructions Recorded Confirmed Last Taken Type Dialyvite 800-Zinc 15 mg Tab 800 mg PO QDAY 02/15/17 07/10/17 07/09/17 History Zofran TAB 4 mg PO PRN PRN MDD nausea 02/15/17 07/10/17 07/09/17 History Vitamin D3 2,000 unit 2,000 units PO QDAY #30 03/09/17 07/10/17 07/09/17 Rx Carvedilol [Coreg] 12.5 mg PO BID tablet 03/20/17 07/10/17 07/09/17 Rx Docusate Sodium [Colace CAP] 100 mg PO QDAY capsule 03/20/17 07/10/17 07/09/17 Rx Losartan [Cozaar] 100 mg PO QDAY tablet 03/20/17 07/10/17 07/09/17 Rx Pantoprazole [Protonix TAB] 40 mg PO QAM tablet 01/09/2807/10/17 07/09/17 Rx Sertraline [Zoloft] 100 mg PO QDAY tablet 03/20/17 07/10/17 07/09/17 Rx Zolpidem [Ambien] 5 mg PO QHS PRN tablet 03/20/17 07/10/17 07/09/17 Rx cloNIDine [Catapres] 0.3 mg PO TID tablet 03/20/17 07/10/17 07/09/17 Rx hydrALAZINE [Apresoline TAB] 25 mg PO Q8HR tablet 03/20/17 07/10/17 07/09/17 Rx traZODone [Desyrel] 100 mg PO QHS tablet 03/20/17 07/10/17 07/09/17 Rx Cholecalciferol (Vitd3)/Vit K2 [D3 1 each PO DAILY 04/27/17 07/10/17 07/09/17 History + K2 Dots 1,000 Units Tab] Cyclobenzaprine [Flexeril 10 MG 10 mg PO DAILY 04/27/17 07/10/17 07/09/17 History TAB] Esomeprazole Magnesium [Nexium] 40 mg PO DAILY 04/27/17 07/10/17 07/09/17 History Lisinopril [Zestril TAB] 40 mg PO DAILY 06/01/17 07/10/17 07/09/17 History Active Meds: Active Medications Oxycodone/Acetaminophen (Percocet 5/325) 1 tab PO Q6H PRN PRN Reason: Pain, Moderate (4-6) Review of Systems Constitutional: no weight loss, no weight gain, no fever, no chills Ears, nose, mouth and throat: no ear pain, no ear discharge, no tinnitis, no decreased hearing, no nose pain, no nasal congestion, no nasal discharge Cardiovascular: chest pain, shortness of breath, no orthopnea, no palpitations, no rapid/irregular heart beat, no edema, no syncope Respiratory: no cough, no cough with sputum, no excessive sputum, no hemoptysis Gastrointestinal: no abdominal pain, no nausea, no vomiting, no diarrhea, no constipation, no change in bowel habits, no hematemesis, no coffee ground emesis Genitourinary Male: no hematuria, no flank pain, no discharge, no urinary frequency, no urinary hesitancy Rectal: no pain, no incontinence, no bleeding Musculoskeletal: no neck stiffness, no neck pain, no shooting arm pain, no arm numbness/tingling, no low back pain, no shooting leg pain, no leg numbness/ tingling, no redness of joints Integumentary: no rash, no pruritis, no redness, no sores, no wounds, no jaundice Neurological: no weakness, no parathesias, no numbness, no tingling, no seizures , no syncope, no tremors, no ataxia Psychiatric: no anxiety, no memory loss, no change in sleep habits, no sleep disturbances, no insomnia, no hypersomnia, no change in libido Endocrine: no cold intolerance, no heat intolerance, no polyphagia, no excessive thirst, no polydipsia, no polyuria, no nocturia, no excessive sweating Hematologic/Lymphatic: no easy bruising, no easy bleeding, no lymphadenopathy, no lymphedema Allergic/Immunologic: no urticaria, no allergic rhinitis, no wheezing, no persistent infections, no anaphylaxis, no angioedema Exam - Constitutional Vitals: Temp Pulse Resp BP Pulse Ox 97.5 F L 75 18 171/101 97 07/10/17 05:16 07/10/17 13:07 07/10/17 13:07 07/10/17 13:07 07/10/17 13:07 General appearance: Present: no acute distress, well-nourished - EENT Eyes: Present: PERRL ENT: hearing intact, clear oral mucosa - Neck Neck: Present: supple, normal ROM. Absent: enlarged thyroid, masses or JVD, cervical LAD, carotid bruits - Respiratory Respiratory effort: normal Respiratory: bilateral: CTA - Cardiovascular Heart Sounds: Present: S1 & S2. Absent: rub, click - Extremities Extremities: pulses symmetrical, No edema Peripheral Pulses: within normal limits - Abdominal General gastrointestinal: Present: soft, non-tender, non-distended, normal bowel sounds Male genitourinary: Present: normal - Integumentary Integumentary: Present: clear, warm, dry - Musculoskeletal Musculoskeletal: gait normal, strength equal bilaterally - Psychiatric Psychiatric: appropriate mood/affect, intact judgment & insight - Neurologic Neurologic: CNII-XII intact, moves all extremities Results - Labs CBC & Chem 7: 07/10/17 13:53 07/10/17 13:53 Labs: Abnormal lab results 07/10/17 Range/Units 13:53 RBC 3.38 L (3.65-5.03) M/mm3 Hgb 8.9 L (11.8-15.2) gm/dl Hct 27.7 L (35.5-45.6) % MCV 82 L (84-94) fl MCH 26 L (28-32) pg RDW 21.4 H (13.2-15.2) % Assessment and Plan - Patient Problems (1) ESRD (end stage renal disease) on dialysis Current Visit: Yes Status: Acute Plan to address problem: Nephrology consulted for dialysis, Strict I/O, monitor uop q shift, avoid nephrotoxic agents. (2) Nicotine dependence Current Visit: Yes Status: Acute Qualifiers: Substance use status: in withdrawal Plan to address problem: supportive care, (3) Pericardial effusion Current Visit: Yes Status: Acute (4) Uncontrolled hypertension Current Visit: No Status: Acute Plan to address problem: monitor bp q shift, IV hydralazine prn, continue clonidine (5) DVT prophylaxis Current Visit: Yes Status: Acute Plan to address problem: scd to ble while in bed
[2017-07-10 14:35] LABS: Albumin 3.3 g/dL (3.9-5); Calcium 8.9 mg/dL (8.4-10.2)
[2017-07-10 15:07] LABS: Chol/HDL Ratio 2.41 %
[2017-07-10] MEDS ORDERED: PROVENTIL IH PRN (18:28)
[2017-07-10] MEDS ORDERED: ZOFRAN IV PRN (18:28)
[2017-07-10] MEDS ORDERED: SODIUM CHLORIDE FLUSH SYRINGE 10 ML IV PRN (18:28)
[2017-07-10] MEDS ORDERED: PERCOCET 5/325 PO PRN (18:28)
[2017-07-10] MEDS ORDERED: TYLENOL PO PRN (18:28)
[2017-07-10] MEDS ORDERED: KIONEX PO ONE (18:29)
[2017-07-10] MEDS ORDERED: CALCIUM GLUCONATE 1,000 MG in NACL 0.9% 100 ML IV ONE (18:29)
[2017-07-10] MEDS: PERCOCET 5/325 PO PRN (22:45)
[2017-07-10] MEDS: SODIUM CHLORIDE FLUSH SYRINGE 10 ML IV SCH (22:47)
[2017-07-10] MEDS: CATAPRES PO SCH (23:15)
[2017-07-10] MEDS: APRESOLINE PO SCH (23:16)
[2017-07-11] MEDS: CATAPRES PO SCH ×2 (05:55→13:45)
[2017-07-11] MEDS: APRESOLINE PO SCH ×2 (05:56→13:45)
[2017-07-11] MEDS: PERCOCET 5/325 PO PRN (05:57)
[2017-07-11 08:56] LABS: Creatine Kinase MB 6.5 ng/mL (0.0-4.0)
--- NOTE | 2017-07-11 09:03 | Consultation ---
History of Present Illness - Reason for Consult Consult date: 07/11/17 - History of Present Illness pt was seen and examined--consult dictated Past History Past Medical History: ESRD, GERD, hypertension Past Surgical History: tonsillectomy, Other (D CATHETER - AND REMOVAL. AV FISTULA. LYMPH NODES REMOVED LEFT GROIN. Patient does have a history of peritonitis with previous PD) Social history: single, smoking Family history: hypertension Medications and Allergies Allergies Allergy/AdvReac Type Severity Reaction Status Date / Time heparin Allergy lowers Verified 02/19/17 13:22 platelets Home Medications Medication Instructions Recorded Confirmed Last Taken Type Dialyvite 800-Zinc 15 mg Tab 800 mg PO QDAY 02/15/17 07/10/17 07/09/17 History Zofran TAB 4 mg PO PRN PRN MDD nausea 02/15/17 07/10/17 07/09/17 History Vitamin D3 2,000 unit 2,000 units PO QDAY #30 03/09/17 07/10/17 07/09/17 Rx Carvedilol [Coreg] 12.5 mg PO BID tablet 03/20/17 07/10/17 07/09/17 Rx Docusate Sodium [Colace CAP] 100 mg PO QDAY capsule 03/20/17 07/10/17 07/09/17 Rx Losartan [Cozaar] 100 mg PO QDAY tablet 03/20/17 07/10/17 07/09/17 Rx Pantoprazole [Protonix TAB] 40 mg PO QAM tablet 03/20/17 07/10/17 07/09/17 Rx Sertraline [Zoloft] 100 mg PO QDAY tablet 03/20/17 07/10/17 07/09/17 Rx Zolpidem [Ambien] 5 mg PO QHS PRN tablet 03/20/17 07/10/17 07/09/17 Rx cloNIDine [Catapres] 0.3 mg PO TID tablet 03/20/17 07/10/17 07/09/17 Rx hydrALAZINE [Apresoline TAB] 25 mg PO Q8HR tablet 03/20/17 07/10/17 07/09/17 Rx traZODone [Desyrel] 100 mg PO QHS tablet 03/20/17 07/10/17 07/09/17 Rx Cholecalciferol (Vitd3)/Vit K2 [D3 1 each PO DAILY 04/27/17 07/10/17 07/09/17 History + K2 Dots 1,000 Units Tab] Cyclobenzaprine [Flexeril 10 MG 10 mg PO DAILY 04/27/17 07/10/17 07/09/17 History TAB] Esomeprazole Magnesium [Nexium] 40 mg PO DAILY 04/27/17 07/10/17 07/09/17 History Lisinopril [Zestril TAB] 40 mg PO DAILY 06/01/17 07/10/17 07/09/17 History Active Meds: Active Medications Acetaminophen (Tylenol) 650 mg PO Q4H PRN PRN Reason: Pain MILD(1-3)/Fever >100.5/JENKINS Albuterol (Proventil) 2.5 mg IH Q4HRT PRN PRN Reason: Shortness Of Breath Clonidine HCl (Catapres) 0.3 mg PO Q8HR [facility] Last Admin: 07/11/17 05:55 Dose: 0.3 mg Hydralazine HCl (Apresoline) 25 mg PO Q8HR [facility] Last Admin: 07/11/17 05:56 Dose: 25 mg Ondansetron HCl (Zofran) 4 mg IV Q8H PRN PRN Reason: Nausea And Vomiting Oxycodone/Acetaminophen (Percocet 5/325) 1 tab PO Q6H PRN PRN Reason: Pain, Moderate (4-6) Last Admin: 07/11/17 05:57 Dose: 1 tab Oxycodone/Acetaminophen (Percocet 5/325) 1 tab PO Q6H PRN PRN Reason: Pain, Moderate (4-6) Sodium Chloride (Sodium Chloride Flush Syringe 10 Ml) 10 ml IV BID [facility] Last Admin: 07/10/17 22:47 Dose: 10 ml Sodium Chloride (Sodium Chloride Flush Syringe 10 Ml) 10 ml IV PRN PRN PRN Reason: LINE FLUSH Exam - Constitutional Vitals: Temp Pulse Resp BP Pulse Ox 98.2 F 77 20 155/87 94 07/11/17 04:28 07/11/17 08:00 07/11/17 08:00 07/11/17 07:17 07/11/17 07:17 Results - Labs CBC & Chem 7: 07/10/17 13:53 07/10/17 13:53 Labs: Abnormal lab results 07/10/17 07/10/17 07/10/17 Range/Units 13:53 13:53 13:53 RBC 3.38 L (3.65-5.03) M/mm3 Hgb 8.9 L (11.8-15.2) gm/dl Hct 27.7 L (35.5-45.6) % MCV 82 L (84-94) fl MCH 26 L (28-32) pg RDW 21.4 H (13.2-15.2) % Sodium 136 L (137-145) mmol/L Potassium 5.3 H (3.6-5.0) mmol/L Chloride 94.9 L (98-107) mmol/L BUN 55 H (9-20) mg/dL Creatinine 6.7 H (0.8-1.5) mg/dL CK-MB (CK-2) (0.0-4.0) ng/mL CK-MB (CK-2) Rel Index (0-4) Troponin T 0.336 H* (0.00-0.029) ng/mL Albumin 3.3 L (3.9-5) g/dL 07/11/17 Range/Units 07:59 RBC (3.65-5.03) M/mm3 Hgb (11.8-15.2) gm/dl Hct (35.5-45.6) % MCV (84-94) fl MCH (28-32) pg RDW (13.2-15.2) % Sodium (137-145) mmol/L Potassium (3.6-5.0) mmol/L Chloride (98-107) mmol/L BUN (9-20) mg/dL Creatinine (0.8-1.5) mg/dL CK-MB (CK-2) 6.5 H (0.0-4.0) ng/mL CK-MB (CK-2) Rel Index 7.7 H (0-4) Troponin T (0.00-0.029) ng/mL Albumin (3.9-5) g/dL
--- NOTE | 2017-07-11 09:31 | Progress Note ---
Assessment and Plan Assessment and plan: 27 YO Male with ESRD on HD presented to ED with complaints of pain in his chest for the past 2 days prior to admission.with worsening symptoms over the past 1 day. ESRD (end stage renal disease) on dialysis Nephrology consulted for dialysis, Strict I/O, monitor uop q shift, avoid nephrotoxic agents Nicotine dependence Patient counseled on cessation Pericardial effusion Cardiology following, echo showed small pericardial effusion Uncontrolled hypertension Continue antihypertensives, IV hydralazine prn DVT prophylaxis scd to ble while in bed History Interval history: Patient seen and examined. Denies CP, NV, SOB. Labs and nursing notes reviewed. Hospitalist Physical - Physical exam Narrative exam: General appearance: Present: no acute distress, well-nourished - EENT Eyes: Present: PERRL, EOM intact ENT: hearing intact, clear oral mucosa - Neck Present: supple, normal ROM - Respiratory Respiratory effort: normal Respiratory: bilateral: CTA - Cardiovascular Rhythm: regular Heart Sounds: Present: S1 & S2 - Extremities Extremities: no ischemia, No edema - Abdominal General gastrointestinal: soft, non-tender, non-distended - Integumentary Integumentary: Present: clear, warm, dry - Psychiatric Psychiatric: appropriate mood/affect, intact judgment & insight, cooperative - Neurologic Neurologic: CNII-XII intact, moves all extremities - Constitutional Vitals: Temp Pulse Resp BP Pulse Ox 98.2 F 77 20 155/87 94 07/11/17 04:28 07/11/17 08:00 07/11/17 08:00 07/11/17 07:17 07/11/17 07:17 Results - Labs CBC & Chem 7: 07/10/17 13:53 07/10/17 13:53 Labs: Laboratory Last Values WBC 6.5 K/mm3 (4.5-11.0) 07/10/17 13:53 RBC 3.38 M/mm3 (3.65-5.03) L 07/10/17 13:53 Hgb 8.9 gm/dl (11.8-15.2) L 07/10/17 13:53 Hct 27.7 % (35.5-45.6) L 07/10/17 13:53 MCV 82 fl (84-94) L 07/10/17 13:53 MCH 26 pg (28-32) L 07/10/17 13:53 MCHC 32 % (32-34) 07/10/17 13:53 RDW 21.4 % (13.2-15.2) H 07/10/17 13:53 Plt Count 191 K/mm3 (140-440) 07/10/17 13:53 Lymph % (Auto) 23.6 % (13.4-35.0) 07/10/17 13:53 [place] % (Auto) 6.7 % (0.0-7.3) 07/10/17 13:53 Eos % (Auto) 3.0 % (0.0-4.3) 07/10/17 13:53 Baso % (Auto) 1.1 % (0.0-1.8) 07/10/17 13:53 Lymph # 1.5 K/mm3 (1.2-5.4) 07/10/17 13:53 [place] # 0.4 K/mm3 (0.0-0.8) 07/10/17 13:53 Eos # 0.2 K/mm3 (0.0-0.4) 07/10/17 13:53 Baso # 0.1 K/mm3 (0.0-0.1) 07/10/17 13:53 Seg Neutrophils % 65.6 % (40.0-70.0) 07/10/17 13:53 Seg Neutrophils # 4.2 K/mm3 (1.8-7.7) 07/10/17 13:53 Sodium 136 mmol/L (137-145) L 07/10/17 13:53 Potassium 5.3 mmol/L (3.6-5.0) H 07/10/17 13:53 Chloride 94.9 mmol/L (98-107) L 07/10/17 13:53 Carbon Dioxide 23 mmol/L (22-30) 07/10/17 13:53 Anion Gap 23 mmol/L 07/10/17 13:53 BUN 55 mg/dL (9-20) H 07/10/17 13:53 Creatinine 6.7 mg/dL (0.8-1.5) H 07/10/17 13:53 Estimated GFR 10 ml/min 07/10/17 13:53 BUN/Creatinine Ratio 8 % 07/10/17 13:53 Glucose 82 mg/dL (75-100) 07/10/17 13:53 Calcium 8.9 mg/dL (8.4-10.2) 07/10/17 13:53 Total Bilirubin 0.40 mg/dL (0.1-1.2) 07/10/17 13:53 AST 20 units/L (5-40) 07/10/17 13:53 ALT 9 units/L (7-56) 07/10/17 13:53 Alkaline Phosphatase 122 units/L (35-129) 07/10/17 13:53 Total Creatine Kinase 84 units/L (55-170) 07/11/17 07:59 CK-MB (CK-2) 6.5 ng/mL (0.0-4.0) H 07/11/17 07:59 CK-MB (CK-2) Rel Index 7.7 (0-4) H 07/11/17 07:59 Troponin T 0.343 ng/mL (0.00-0.029) H* 07/11/17 07:59 Total Protein 7.8 g/dL (6.3-8.2) 07/10/17 13:53 Albumin 3.3 g/dL (3.9-5) L 07/10/17 13:53 Albumin/Globulin Ratio 0.7 % 07/10/17 13:53 Triglycerides 75 mg/dL (2-149) 07/10/17 13:53 Cholesterol 116 mg/dL (50-199) 07/10/17 13:53 LDL Cholesterol Direct 59 mg/dL (50-130) 07/10/17 13:53 HDL Cholesterol 48 mg/dL (40-59) 07/10/17 13:53 Cholesterol/HDL Ratio 2.41 % 07/10/17 13:53
[2017-07-11] MEDS: SODIUM CHLORIDE FLUSH SYRINGE 10 ML IV SCH (10:28)
[2017-07-11] MEDS ORDERED: NACL 0.9% 100 ML IV PRN (10:41)
--- NOTE | 2017-07-11 11:47 | Consultation ---
History of Present Illness Consult date: 07/11/17 Consult reason: other (Pericardial effusion) History of present illness: This is a 27yr old male with multiple medical problems. He has end stage renal disease and is on dialysis. Patient reports multiple hospitalizations to [facility] for recurrent ascities requiring a paracentesis. Patient has a history of dilated cardiomyopathy with a decreased left ventricular ejection 35-40% seen on an echocardiogram done at [place] 3 weeks ago. Patient also has chronic anemia and hypertension. Patient presents to this hospital with complaints of shortness of breath and abdominal pain. There were no reports of chest pain, palpitations or lower extremity edema. There is no chest xray available for review. Patient reports he was last dialyzed on Tuesday. A cardiac consultation is requested for suspected pericardial effusion. A repeat echocardiogram this presentation demonstrates a 4 chamber dilated cardiomyopathy with moderate tricuspid regurgitation and a small pericardial effusion. 12 lead ECG is benign, a normal sinus rhythm. Past History Past Medical History: ESRD, GERD, hypertension Past Surgical History: tonsillectomy, Other (D CATHETER - AND REMOVAL. AV FISTULA. LYMPH NODES REMOVED LEFT GROIN. Patient does have a history of peritonitis with previous PD) Social history: single, smoking Family history: hypertension Medications and Allergies Allergies Allergy/AdvReac Type Severity Reaction Status Date / Time heparin Allergy lowers Verified 02/19/17 13:22 platelets Home Medications Medication Instructions Recorded Confirmed Last Taken Type Dialyvite 800-Zinc 15 mg Tab 800 mg PO QDAY 02/15/17 07/10/17 07/09/17 History Zofran TAB 4 mg PO PRN PRN MDD nausea 02/15/17 07/10/17 07/09/17 History Vitamin D3 2,000 unit 2,000 units PO QDAY #30 03/09/17 07/10/17 07/09/17 Rx Carvedilol [Coreg] 12.5 mg PO BID tablet 03/20/17 07/10/17 07/09/17 Rx Docusate Sodium [Colace CAP] 100 mg PO QDAY capsule 03/20/17 07/10/17 07/09/17 Rx Losartan [Cozaar] 100 mg PO QDAY tablet 03/20/17 07/10/17 07/09/17 Rx Pantoprazole [Protonix TAB] 40 mg PO QAM tablet 03/20/17 07/10/17 07/09/17 Rx Sertraline [Zoloft] 100 mg PO QDAY tablet 03/20/17 07/10/17 07/09/17 Rx Zolpidem [Ambien] 5 mg PO QHS PRN tablet 03/20/17 07/10/17 07/09/17 Rx cloNIDine [Catapres] 0.3 mg PO TID tablet 03/20/17 07/10/17 07/09/17 Rx hydrALAZINE [Apresoline TAB] 25 mg PO Q8HR tablet 03/20/17 07/10/17 07/09/17 Rx traZODone [Desyrel] 100 mg PO QHS tablet 03/20/17 07/10/17 07/09/17 Rx Cholecalciferol (Vitd3)/Vit K2 [D3 1 each PO DAILY 04/27/17 07/10/17 07/09/17 History + K2 Dots 1,000 Units Tab] Cyclobenzaprine [Flexeril 10 MG 10 mg PO DAILY 04/27/17 07/10/17 07/09/17 History TAB] Esomeprazole Magnesium [Nexium] 40 mg PO DAILY 04/27/17 07/10/17 07/09/17 History Lisinopril [Zestril TAB] 40 mg PO DAILY 06/01/17 07/10/17 07/09/17 History Active Meds: Active Medications Acetaminophen (Tylenol) 650 mg PO Q4H PRN PRN Reason: Pain MILD(1-3)/Fever >100.5/JENKINS Albuterol (Proventil) 2.5 mg IH Q4HRT PRN PRN Reason: Shortness Of Breath Clonidine HCl (Catapres) 0.3 mg PO Q8HR [facility] Last Admin: 07/11/17 05:55 Dose: 0.3 mg Hydralazine HCl (Apresoline) 25 mg PO Q8HR [facility] Last Admin: 07/11/17 05:56 Dose: 25 mg Sodium Chloride (Nacl 0.9%) 100 mls @ 999 mls/hr IV APRIL PRN PRN Reason: Hypotension Ondansetron HCl (Zofran) 4 mg IV Q8H PRN PRN Reason: Nausea And Vomiting Oxycodone/Acetaminophen (Percocet 5/325) 1 tab PO Q6H PRN PRN Reason: Pain, Moderate (4-6) Last Admin: 07/11/17 05:57 Dose: 1 tab Oxycodone/Acetaminophen (Percocet 5/325) 1 tab PO Q6H PRN PRN Reason: Pain, Moderate (4-6) Sodium Chloride (Sodium Chloride Flush Syringe 10 Ml) 10 ml IV BID [facility] Last Admin: 07/11/17 10:28 Dose: 10 ml Sodium Chloride (Sodium Chloride Flush Syringe 10 Ml) 10 ml IV PRN PRN PRN Reason: LINE FLUSH Physical Examination Vital Signs Temp Pulse Resp BP Pulse Ox 97.5 F L 78 20 174/100 100 07/10/17 04:46 07/10/17 04:46 07/10/17 04:46 07/10/17 04:46 07/10/17 04:46 General appearance: no acute distress HEENT: Positive: PERRL Cardiac: Positive: Reg Rate and Rhythm Neuro: Positive: Grossly Intact Results 07/10/17 13:53 07/10/17 13:53 Cardiac Enzymes 07/10/17 07/11/17 Range/Units 13:53 07:59 AST 20 (5-40) units/L CK-MB (CK-2) 6.5 H (0.0-4.0) ng/mL Lipids 07/10/17 Range/Units 13:53 Triglycerides 75 (2-149) mg/dL Cholesterol 116 (50-199) mg/dL HDL Cholesterol 48 (40-59) mg/dL Cholesterol/HDL Ratio 2.41 % CBC 07/10/17 Range/Units 13:53 WBC 6.5 (4.5-11.0) K/mm3 RBC 3.38 L (3.65-5.03) M/mm3 Hgb 8.9 L (11.8-15.2) gm/dl Hct 27.7 L (35.5-45.6) % Plt Count 191 (140-440) K/mm3 Lymph # 1.5 (1.2-5.4) K/mm3 [place] # 0.4 (0.0-0.8) K/mm3 Eos # 0.2 (0.0-0.4) K/mm3 Baso # 0.1 (0.0-0.1) K/mm3 Comprehensive Metabolic Panel 07/10/17 Range/Units 13:53 Sodium 136 L (137-145) mmol/L Potassium 5.3 H (3.6-5.0) mmol/L Chloride 94.9 L (98-107) mmol/L Carbon Dioxide 23 (22-30) mmol/L BUN 55 H (9-20) mg/dL Creatinine 6.7 H (0.8-1.5) mg/dL Glucose 82 (75-100) mg/dL Calcium 8.9 (8.4-10.2) mg/dL AST 20 (5-40) units/L ALT 9 (7-56) units/L Alkaline Phosphatase 122 (35-129) units/L Total Protein 7.8 (6.3-8.2) g/dL Albumin 3.3 L (3.9-5) g/dL Assessment and Plan Shortness of breath Abdominal pain ESRD on dialysis Hypertension -uncontrolled Dilated Cardiomyopathy, EF 25-30% Anemia Hx of Ascities.
[2017-07-11] MEDS ORDERED: APRESOLINE IV PRN (15:57)
[2017-07-11] MEDS ORDERED: ZESTRIL PO SCH (16:00)
[2017-07-11 16:58] VITALS: BP 167/102
--- NOTE | 2017-07-12 02:13 | Consultation ---
RENAL CONSULTATION REASON FOR CONSULTATION: Renal failure. HISTORY OF PRESENT ILLNESS: This 27-year-old male with end-stage renal disease, hypertension, presented to the Emergency Room with chest pain, shortness of breath, and epigastric discomfort. The patient states that he had his hemodialysis treatment on Tuesday at [facility]. Later on that night, he was having shortness of breath. He went to [facility] ER, but waited for a long time and he left. Then, he went to [facility] where he states that nothing was done, hence he came to the [facility] ER yesterday. The patient states that he was told to have fluid around the heart. Five weeks ago, he was admitted to [facility] for abdomen distention and fluid. He had laparoscopic evaluation by Dr. Valle. The patient goes to hemodialysis on Tuesday, , Tuesday at [facility]. The patient states that 4 liters of fluid was removed with ultrafiltration at the dialysis center on 07/09/2017. PAST MEDICAL HISTORY: ESRD, hypertension. The patient was on peritoneal dialysis and switched over to hemodialysis. He has history of hidradenitis. FAMILY HISTORY: No family history of kidney failure. PERSONAL HISTORY: Smokes cigarettes. Denies alcohol or drug abuse. ALLERGIES: Allergy to HEPARIN. CURRENT MEDICATIONS: Clonidine 0.3 mg q.8 hours, hydralazine 25 mg q.8 hours. REVIEW OF SYSTEMS: The patient denies dizziness or headache. Denies chest pain at present time. Gets shortness of breath on exertion. Denies abdomen pain, nausea, or vomiting. Denies swelling of the legs. Denies fever or chills. Other review of systems reviewed and negative. PHYSICAL EXAMINATION: GENERAL: The patient is alert and oriented. VITAL SIGNS: Blood pressure 155/87, pulse 77, afebrile, O2 saturation 94%. HEENT: Conjunctivae pale. Oral mucosa and tongue are moist. Lips noncyanotic. NECK: No JVD, no thyroid enlargement. No cervical lymph nodes palpable. LUNGS: Diminished breath sounds in bases. HEART: S1, S2 regular. No pericardial rub. A 2/6 systolic murmur along the left sternal border. ABDOMEN: Soft, bowel sounds present, nontender. Recent laparoscopic incisions noted. EXTREMITIES: No significant edema. Left upper arm AV fistula has bruit and thrill. No cyanosis or clubbing. LABORATORY DATA: WBC 6.5, hemoglobin 8.9, hematocrit 27.7, platelets 191. Sodium 136, potassium 5.3, chloride 94.9, carbon dioxide 23, BUN 55, creatinine 6.7. CK-MB 7.7, troponin 0.343, albumin 3.3. ASSESSMENT AND PLAN: 1. Atypical chest pain. 2. End-stage renal disease. 3. Anemia. 4. Mild hyperkalemia. 5. History of smoking. 6. Hypertension. 7. Cardiomyopathy/moderate pulmonary hypertension/systolic heart failure. Echocardiogram report was reviewed from 07/10/2017. The patient has moderate to severely dilated left ventricle with concentric left ventricular hypertrophy and global left ventricular systolic function is severely decreased, left ventricular ejection fraction of 25-30%. Left atrium, right ventricle, and the right atrium moderate to severely dilated. Small pericardial effusion, moderate tricuspid regurgitation, evidence of moderate pulmonary hypertension. Suggest to add DELFINO inhibitor or ARB if potassium is normal. The patient has history of allergy to heparin. Avoid heparin for dialysis. Hemodialysis with ultrafiltration as ordered. The patient was advised on low potassium diet. JOB# [id number] K/NTS
== END 2017-07-11 19:07 | disposition left against medical advice (07) | DRG 314 ==
LOC: ED 03:46 → 4A 18:28
PROVIDERS: ADMIT Internal Medicine; ATTEND Internal Medicine
DX: I42.0 Dilated cardiomyopathy (principal); N18.6 End stage renal disease; I31.3 Pericardial effusion (noninflammatory); I50.20 Unspecified systolic (congestive) heart failure; I13.0 Hypertensive heart and chronic kidney disease with heart failure and stage 1 through stage 4 chronic kidney disease, or unspecified chronic kidney disease; E87.5 Hyperkalemia; I27.20 Pulmonary hypertension, unspecified; F17.200 Nicotine dependence, unspecified, uncomplicated; K21.9 Gastro-esophageal reflux disease without esophagitis; Z99.2 Dependence on renal dialysis; Z90.89 Acquired absence of other organs; Z91.19 Patient's noncompliance with other medical treatment and regimen; Z82.49 Family history of ischemic heart disease and other diseases of the circulatory system; Z88.8 Allergy status to other drugs, medicaments and biological substances
CPT/HCPCS: 36415; 80053; 80061; 82550; 82553; 84484; 85025; 93005; 93010; 93306; 96374; 96375; J0360; J0610

== ENCOUNTER 2017-07-22 17:23 | Emergency (ER) | payer MEDICARE ==
[2017-07-22 18:19] VITALS: BP 182/100
== END 2017-07-22 18:20 | disposition left against medical advice (07) ==
LOC: ED 17:23
DX: R10.9 Unspecified abdominal pain (principal); Z53.21 Procedure and treatment not carried out due to patient leaving prior to being seen by health care provider

== ENCOUNTER 2017-07-25 06:17 | Day surgery (SDC) | payer MEDICARE ==
[2017-07-25] MEDS ORDERED: ECOTRIN PO NR (06:35)
[2017-07-25] MEDS ORDERED: NACL 0.9% 500 ML 500 ML IV SCH (07:00)
[2017-07-25 07:35] LABS: Basophils # (Auto) 0.1 K/mm3 (0.0-0.1); Basophils % (Auto) 1.1 % (0.0-1.8); Eosinophils # (Auto) 0.2 K/mm3 (0.0-0.4); Eosinophils % (Auto) 1.7 % (0.0-4.3); Hematocrit 28.6 % (35.5-45.6); Hemoglobin 9.1 gm/dl (11.8-15.2); Lymphocytes # (Auto) 1.6 K/mm3 (1.2-5.4); Lymphocytes % (Auto) 16.5 % (13.4-35.0); Mean Corpuscular HGB Conc 32 % (32-34); Mean Corpuscular Hemoglobin 27 pg (28-32); Mean Corpuscular Volume 86 fl (84-94); Monocytes # (Auto) 0.7 K/mm3 (0.0-0.8); Monocytes % (Auto) 7.1 % (0.0-7.3); Platelet Count 233 K/mm3 (140-440); Red Blood Count 3.33 M/mm3 (3.65-5.03); Red Cell Distribution Width 23.1 % (13.2-15.2)
[2017-07-25 07:41] LABS: INR 1.18 (0.87-1.13)
[2017-07-25 08:50] LABS: Calcium 9.3 mg/dL (8.4-10.2)
[2017-07-25] MEDS ORDERED: D5NS 0.2% 0 ML IV ONE (09:03)
[2017-07-25] MEDS ORDERED: HEPARIN 10,000 UNITS/10 ML ONE (09:22)
[2017-07-25] MEDS ORDERED: HEPARIN/NS 5000 UNIT/500ML(CATH LAB) 0 ML IR ONE (09:22)
[2017-07-25] MEDS ORDERED: XYLOCAINE 2% INFILTRATI ONE ×2 (09:24→10:40)
[2017-07-25] MEDS ORDERED: NACL 0.9% 500 ML 500 ML ONE (09:25)
[2017-07-25] MEDS ORDERED: ANGIOMAX IV ONE ×2 (09:25→09:50)
[2017-07-25] MEDS ORDERED: NACL 0.9% 500 ML IR ONE (09:25)
[2017-07-25] MEDS ORDERED: NACL 0.9% 100 ML ONE (09:27)
[2017-07-25] MEDS ORDERED: SUBLIMAZE ONE (09:52)
[2017-07-25] MEDS ORDERED: VERSED ONE (09:52)
[2017-07-25] MEDS ORDERED: D5/0.45NS 1,000 ML IV SCH (10:00)
[2017-07-25] MEDS ORDERED: SUBLIMAZE IV ONE ×2 (10:34→10:50)
[2017-07-25] MEDS ORDERED: VERSED IV ONE (10:34)
[2017-07-25] MEDS ORDERED: APRESOLINE ONE (10:48)
[2017-07-25] MEDS ORDERED: APRESOLINE IV ONE (10:51)
--- NOTE | 2017-07-25 11:38 | Cardiac Catherization Report ---
CARDIAC CATHETERIZATION REPORT REASON FOR PROCEDURE: The patient is a 27-year-old man who presented with chest pain, dilated cardiomyopathy, and abnormal thallium stress test. He was recommended for a cardiac catheterization and coronary angiography. DESCRIPTION OF PROCEDURE: The patient was prepped and draped in a sterile fashion after informed consent. The right femoral artery was entered using Seldinger technique followed by placement of a 6-Yi sheath. Selective left and right coronary angiography was performed using #4 right and left Homero catheters. A pigtail catheter was used for left ventricle angiography. The catheters were removed, sheath removed, and hemostasis achieved using an Angio-Seal device. The patient was returned to the postprocedure unit in stable condition. There were no complications. FINDINGS: HEMODYNAMICS: Left ventricular end-diastolic pressure was 35, following coronary angiography. Ascending aortic pressure was 212/127. There was no significant pressure gradient on pullback across the aortic valve. CORONARY ANGIOGRAPHY: There was separate LAD and circumflex ostia. The left anterior descending artery contained mild calcification in its proximal segment. This was followed by mild luminal stenosis of the mid LAD. Otherwise, this vessel and its diagonal branches were angiographically normal. The circumflex artery also contained a 10% stenosis of its mid AV groove segment, but otherwise this vessel and this obtuse marginal branches were angiographically normal. The right coronary artery was dominant. This vessel similarly contained a 10% luminal stenosis of its proximal segment, but otherwise free of significant disease. The left ventricle is severely dilated. There was severe left ventricular systolic dysfunction with diffuse hypokinesis. Left ventricular ejection fraction 15-20%. CONCLUSION: 1. Mild nonobstructive irregularities and mild calcification as reported above. 2. Dilated nonischemic cardiomyopathy, severe left ventricular systolic dysfunction, ejection fraction 15-20%. RECOMMENDATION: 1. Medical therapy for nonischemic cardiomyopathy. 2. Risk factor modification for mild nonobstructive coronary artery disease. JOB# [id number] CA/NTS
[2017-07-25] MEDS ORDERED: CATAPRES PO PRN (12:17)
[2017-07-25] MEDS ORDERED: TYLENOL PO ONE (12:20)
[2017-07-25] MEDS ORDERED: TYLENOL ONE (12:23)
--- NOTE | 2017-07-25 13:15 | Discharge Summary ---
Short Stay Discharge Plan Activity: advance as tolerated Weight Bearing Status: Partial Weight Bearing Diet: low fat, low cholesterol, low salt Wound: keep clean and dry Special Instructions: no heavy lifting (3 days) Follow up with: JOHN SMITH MD [Primary Care Provider] - 7 Days CARINA SCHROEDER MD [Staff Physician] - 7 Days
[2017-07-25] MEDS ORDERED: ULTRAM ONE (13:29)
[2017-07-25] MEDS ORDERED: APRESOLINE PO NR (13:30)
[2017-07-25] MEDS ORDERED: ULTRAM PO PRN (13:30)
[2017-07-25] MEDS ORDERED: DIOVAN PO NR ×2 (13:30→13:40)
[2017-07-25] MEDS ORDERED: CATAPRES PO ONE (14:00)
[2017-07-25 14:30] VITALS: BP 174/110
== END 2017-07-25 14:50 | disposition home or self-care (01) ==
LOC: CATHLABREC 06:17
PROVIDERS: ATTEND Internal Medicine Cardiovascular Disease
DX: I25.10 Atherosclerotic heart disease of native coronary artery without angina pectoris (principal); I42.0 Dilated cardiomyopathy; I11.0 Hypertensive heart disease with heart failure; I50.9 Heart failure, unspecified
CPT/HCPCS: 36415; 80048; 82962; 85025; 85610; 85730; 93005; 93010; 93458; 99156; 99157; C1760; C1894; J0360; J0583; J2250; J3010; J7040; J1644; Q9967

== ENCOUNTER 2017-08-30 12:54 | Inpatient (IN) | payer MEDICARE ==
[2017-08-30 13:45] LABS: Basophils # (Auto) 0.1 K/mm3 (0.0-0.1); Eosinophils # (Auto) 0.1 K/mm3 (0.0-0.4); Eosinophils % (Auto) 1.3 % (0.0-4.3); Hematocrit 29.6 % (35.5-45.6); Hemoglobin 9.5 gm/dl (11.8-15.2); Lymphocytes # (Auto) 1.8 K/mm3 (1.2-5.4); Lymphocytes % (Auto) 26.6 % (13.4-35.0); Mean Corpuscular HGB Conc 32 % (32-34); Mean Corpuscular Hemoglobin 28 pg (28-32); Mean Corpuscular Volume 87 fl (84-94); Monocytes # (Auto) 0.6 K/mm3 (0.0-0.8); Monocytes % (Auto) 9.4 % (0.0-7.3); Platelet Count 129 K/mm3 (140-440); Red Blood Count 3.42 M/mm3 (3.65-5.03)
[2017-08-30 13:54] LABS: Red Cell Distribution Width 21.2 % (13.2-15.2)
[2017-08-30 14:05] LABS: Calcium 8.8 mg/dL (8.4-10.2)
--- NOTE | 2017-08-30 14:07 | XRay Report ---
AP CHEST: HISTORY: Short of breath Compared to 07/17/17. Severe cardiomegaly is stable since 07/17/17. Pulmonary vascularity is within normal limits. The lungs are generally clear. No evidence for pneumonia, large pleural effusion or pneumothorax. IMPRESSION: Marked cardiomegaly. Lungs clear.
[2017-08-30] MEDS ORDERED: TESSALON PERLES PO ONE (14:25)
[2017-08-30] MEDS ORDERED: PERCOCET 5/325 PO ONE (14:25)
[2017-08-30] MEDS ORDERED: ZOFRAN IV ONE (14:25)
[2017-08-30] MEDS ORDERED: NITRO-BID 2% TP ONE (14:28)
--- NOTE | 2017-08-30 15:32 | Emergency Department Report ---
ED Shortness of Breath HPI - General Chief Complaint: Dyspnea/Respdistress Stated Complaint: MARCO Time Seen by Provider: 08/30/17 13:22 Source: patient, EMS Mode of arrival: Stretcher Limitations: Physical Limitation - History of Present Illness Initial Comments: 27 yo male with a past medical history of CHF, end-stage disease on dialysis, and hypertension presents to the hospital complaining of dry cough today and chronic shortness of breath worsening this a.m. Patient has chronic two-pillow orthopnea and change and denies PND. Patient has had significant dry cough since yesterday causing him to not be able to sleep and exacerbating his left lower back pain and abdominal pain. Patient states is chronic nausea vomiting unchanged. Denies fever. Patient had 50 minutes it was dialysis today before being sent to the hospital. Patient states he had a coughing and difficulty breathing during the episode. Patient takes 2 L O@ at home. No chest pain reported. Patient states he has not had a full dialysis now at least one week. He does not make urine. [employer] Maker Hand: Dr. Flores repair miller: Malone heart - Related Data Home Medications Medication Instructions Recorded Confirmed Last Taken Dialyvite 800-Zinc 15 mg Tab 800 mg PO QDAY 02/15/17 07/25/17 07/24/17 Zofran TAB 4 mg PO PRN PRN MDD nausea 02/15/17 07/25/17 07/24/17 Cyclobenzaprine [Flexeril 10 MG 10 mg PO DAILY 04/27/17 07/25/17 07/24/17 TAB] Esomeprazole Magnesium [Nexium] 40 mg PO DAILY 04/27/17 07/25/17 07/24/17 Valsartan [Diovan] 160 mg PO QDAY 07/25/17 07/25/17 07/24/17 metroNIDAZOLE [Metronidazole] 500 mg PO TID 07/25/17 07/25/17 07/24/17 Previous Rx's Medication Instructions Recorded Last Taken Type Carvedilol [Coreg] 12.5 mg PO BID tablet 03/20/17 07/24/17 Rx Sertraline [Zoloft] 100 mg PO QDAY tablet 03/20/17 07/24/17 Rx cloNIDine [Catapres] 0.3 mg PO TID tablet 03/20/17 07/24/17 Rx traZODone [Desyrel] 100 mg PO QHS tablet 03/20/17 07/24/17 Rx ALBUTEROL Inhaler [ProAir HFA 2 puff IH QID PRN #1 inhalation 07/18/17 07/24/17 Rx Inhaler] hydrALAZINE [Apresoline TAB] 100 mg PO TID #90 tab 07/18/17 07/24/17 Rx Allergies Allergy/AdvReac Type Severity Reaction Status Date / Time heparin Allergy lowers Verified 02/19/17 13:22 platelets ED Review of Systems ROS: Stated complaint: MACRO Other details as noted in HPI Comment: All other systems reviewed and negative ED Past Medical Hx - Past Medical History Hx Hypertension: Yes Hx Congestive Heart Failure: No Hx Diabetes: No Hx GERD: Yes Hx Renal Disease: Yes (HD ( / / Tue)) Hx Asthma: No Hx COPD: No Additional medical history: Hidradenitis, EJF 40%, enlarged heart - Surgical History Additional Surgical History: PD CATHETER - AND REMOVAL. AV FISTULA. LYMPH NODES REMOVED LEFT GROIN. TONSILLECTOMY. Patient does have a history of peritonitis with previous PD - Social History Smoking Status: Current Every Day Smoker Substance Use Type: None - Medications Home Medications: Home Medications Medication Instructions Recorded Confirmed Last Taken Type Dialyvite 800-Zinc 15 mg Tab 800 mg PO QDAY 02/15/17 07/25/17 07/24/17 History Zofran TAB 4 mg PO PRN PRN MDD nausea 02/15/17 07/25/17 07/24/17 History Carvedilol [Coreg] 12.5 mg PO BID tablet 03/20/17 07/25/17 07/24/17 Rx Sertraline [Zoloft] 100 mg PO QDAY tablet 03/20/17 07/25/17 07/24/17 Rx cloNIDine [Catapres] 0.3 mg PO TID tablet 03/20/17 07/25/17 07/24/17 Rx traZODone [Desyrel] 100 mg PO QHS tablet 03/20/17 07/25/17 07/24/17 Rx Cyclobenzaprine [Flexeril 10 MG 10 mg PO DAILY 04/27/17 07/25/17 07/24/17 History TAB] Esomeprazole Magnesium [Nexium] 40 mg PO DAILY 04/27/17 07/25/1718 History ALBUTEROL Inhaler [ProAir HFA 2 puff IH QID PRN #1 inhalation 07/18/17 07/25/17 07/24/17 Rx Inhaler] hydrALAZINE [Apresoline TAB] 100 mg PO TID #90 tab 07/18/17 07/25/17 07/24/17 Rx Valsartan [Diovan] 160 mg PO QDAY 07/25/17 07/25/17 07/24/17 History metroNIDAZOLE [Metronidazole] 500 mg PO TID 07/25/17 07/25/17 07/24/17 History ED Physical Exam - General Limitations: Physical Limitation - Other Other exam information: General: No limitations, patient is alert in no acute distress Head exam: Atraumatic, normocephalic Eyes exam: Normal appearance ENT: Moist mucous membrane, normal oropharynx Neck exam: Normal inspection, full range of motion, no meningismus nontender Respiratory exam: Clear to auscultation bilateral, no wheezes, rales, crackles Cardiovascular: Normal rate and rhythm, normal heart sounds Abdomen: Soft, nondistended, and nontender, with normal bowel sounds, no rebound, or guarding Extremity: Full range of motion normal inspection no deformity Back: Normal Inspection, full range of motion, left sided paraspinal muscle tenderness Neurologic: Alert, oriented x3, cranial nerves intact, no motor or sensory deficit Psychiatric: normal affect, normal mood Skin: Warm, dry, intact ED Course Vital Signs 08/30/17 08/30/17 08/30/17 13:03 13:12 13:16 Temperature 98.2 F Pulse Rate 78 78 77 Respiratory 24 26 H 22 Rate Blood Pressure 172/110 172/110 172/110 Blood Pressure [Right] O2 Sat by Pulse 100 100 100 Oximetry 08/30/17 08/30/17 08/30/17 13:30 13:46 14:00 Temperature Pulse Rate 75 77 74 Respiratory 28 H 20 23 Rate Blood Pressure 172/110 172/110 172/110 Blood Pressure [Right] O2 Sat by Pulse 99 99 99 Oximetry 08/30/17 08/30/17 08/30/17 14:16 14:30 14:31 Temperature Pulse Rate 74 72 69 Respiratory 25 H 24 25 H Rate Blood Pressure 173/104 173/104 Blood Pressure 173/104 [Right] O2 Sat by Pulse 98 97 97 Oximetry 08/30/17 08/30/17 08/30/17 14:45 15:00 15:15 Temperature Pulse Rate 73 71 66 Respiratory 21 19 17 Rate Blood Pressure 173/104 154/98 145/90 Blood Pressure [Right] O2 Sat by Pulse 98 99 95 Oximetry 08/30/17 15:18 Temperature Pulse Rate 68 Respiratory Rate Blood Pressure 173/104 Blood Pressure [Right] O2 Sat by Pulse Oximetry ED Medical Decision Making - Lab Data Result diagrams: 08/30/17 13:15 08/30/17 13:15 Lab Results 08/30/17 08/30/17 Range/Units 13:15 13:15 WBC 6.6 (4.5-11.0) K/mm3 RBC 3.42 L (3.65-5.03) M/mm3 Hgb 9.5 L (11.8-15.2) gm/dl Hct 29.6 L (35.5-45.6) % MCV 87 (84-94) fl MCH 28 (28-32) pg MCHC 32 (32-34) % RDW 21.2 H (13.2-15.2) % Plt Count 129 L (140-440) K/mm3 Lymph % (Auto) 26.6 (13.4-35.0) % [place] % (Auto) 9.4 H (0.0-7.3) % Eos % (Auto) 1.3 (0.0-4.3) % Baso % (Auto) 2.0 H (0.0-1.8) % Lymph # 1.8 (1.2-5.4) K/mm3 [place] # 0.6 (0.0-0.8) K/mm3 Eos # 0.1 (0.0-0.4) K/mm3 Baso # 0.1 (0.0-0.1) K/mm3 Seg Neutrophils % 60.7 (40.0-70.0) % Seg Neutrophils # 4.0 (1.8-7.7) K/mm3 Sodium 140 (137-145) mmol/L Potassium 5.9 H (3.6-5.0) mmol/L Chloride 95.3 L (98-107) mmol/L Carbon Dioxide 22 (22-30) mmol/L Anion Gap 29 mmol/L BUN 79 H (9-20) mg/dL Creatinine 9.4 H (0.8-1.5) mg/dL Estimated GFR 7 ml/min BUN/Creatinine Ratio 8 % Glucose 90 (75-100) mg/dL Calcium 8.8 (8.4-10.2) mg/dL - EKG Data -: EKG Interpreted by Me EKG shows normal: sinus rhythm, axis (qrs 12), QRS complexes (qrsd 78), ST-T waves (flat t waves, no stemi) Rate: normal - EKG Data When compared to previous EKG there are: changes noted (07/25/17 (t waves more upright/not flat)) - Radiology Data Radiology results: report reviewed AP CHEST: HISTORY: Short of breath Compared to 07/17/17. Severe cardiomegaly is stable since 07/17/17. Pulmonary vascularity is within normal limits. The lungs are generally clear. No evidence for pneumonia, large pleural effusion or pneumothorax. IMPRESSION: Marked cardiomegaly. Lungs clear. Transcribed By: TTR Dictated By: AR ALVAREZ JR, MD Electronically Authenticated By: AR ALVAREZ JR, MD Signed Date/Time: 08/30/17 6076 - Medical Decision Making Patient does complain of feeling better when he sits straight up. Dry cough noted exam. Patient treated with Percocet, Tessalon Perles, and nitro paste. Nephrology will arrange for dialysis tonight - Differential Diagnosis CHF, dialysis noncompliance, hyperkalemia, DE, unstable angina Critical Care Time: No Critical care attestation.: If time is entered above; I have spent that time in minutes in the direct care of this critically ill patient, excluding procedure time. ED Disposition Clinical Impression: ESRD needing dialysis, Acute exacerbation of CHF (congestive heart failure), Hyperkalemia, Cardiomegaly, Hypertension Disposition: OP ADMIT IP TO THIS HOSP Is pt being admited?: Yes Condition: Stable Time of Disposition: 15:32 (Dr Venegas/hosp)
[2017-08-30] MEDS ORDERED: NACL 0.9% 100 ML IV PRN (15:35)
--- NOTE | 2017-08-30 18:33 | Consultation ---
History of Present Illness - Reason for Consult Consult date: 08/30/17 end stage renal disease - History of Present Illness Tuesday is a 27 yo male with end-stage disease on dialysis and hypertension who presented to the ED with worsening SOB. He reports dry cough. There is no hx of fever, chills. He is noncompliant with dialysis. Treatment time is 4 hours. However, he typically only dialyzes for only 2-3 hours. CXR notable for cardiomegaly. Past History Past Medical History: anemia, ESRD, GERD, hypertension, other (Recurrent ascites ) Past Surgical History: Other (AV access creation; PD catheter insertion/removal ; Operative laparoscopy, drainage of loculated ascites) Social history: no significant social history Family history: no significant family history Medications and Allergies Allergies Allergy/AdvReac Type Severity Reaction Status Date / Time heparin Allergy lowers Verified 02/19/17 13:22 platelets Home Medications Medication Instructions Recorded Confirmed Last Taken Type Dialyvite 800-Zinc 15 mg Tab 800 mg PO QDAY 02/15/17 08/30/17 08/30/17 History Carvedilol [Coreg] 12.5 mg PO BID tablet 03/20/17 08/30/17 07/24/17 Rx Sertraline [Zoloft] 100 mg PO QDAY tablet 03/20/17 08/30/17 07/24/17 Rx cloNIDine [Catapres] 0.3 mg PO TID tablet 03/20/17 08/30/17 08/30/17 Rx traZODone [Desyrel] 100 mg PO QHS tablet 03/20/17 08/30/17 07/24/17 Rx Esomeprazole Magnesium [Nexium] 40 mg PO DAILY 04/27/17 08/30/17 08/30/17 History ALBUTEROL Inhaler [ProAir HFA 2 puff IH QID PRN #1 inhalation 07/18/17 08/30/17 07/24/17 Rx Inhaler] hydrALAZINE [Apresoline TAB] 100 mg PO TID #90 tab 07/18/17 08/30/17 07/24/17 Rx NIFEdipine [] 90 mg PO DAILY 08/30/17 08/30/17 08/30/17 History Active Meds: Active Medications Epoetin Davis (Procrit) 10,000 unit IV APRIL PRN PRN Reason: hemodialysis Sodium Chloride (Nacl 0.9%) 100 mls @ 999 mls/hr IV APRIL PRN PRN Reason: Hypotension Review of Systems All systems: negative Exam - Vital Signs Vital signs: Vital Signs Pulse Resp BP Pulse Ox 78 24 172/110 100 08/30/17 13:03 08/30/17 13:03 08/30/17 13:03 08/30/17 13:03 - General Appearance General appearance: well-developed, well-nourished EENT: ATNC Respiratory: Clear to Ascultation Heart: regular, S1S2 Gastrointestinal: Present: distended. Absent: tenderness Integumentary: no rash, warm and dry Neurologic: no focal deficit Musculoskeletal: Present: other (Edema) Psychiatric: cooperative Results - Lab Results 08/30/17 13:15 08/30/17 13:15 Most recent lab results Calcium 8.8 mg/dL (8.4-10.2) 08/30/17 13:15 Assessment and Plan Assessment: * End stage renal disease on intermittent hemodialysis * Hyperkalemia * Hx of recurrent abdominal ascites * Accelerated hypertension * Anemia secondary to ESRD * Secondary hyperparathyroidism * Medical noncompliance Plan * Hemodialysis TTS schedule as well * UF as tolerated * Continue current antiHTN medications * Epogen TIW prn * Renal diet
[2017-08-30] MEDS ORDERED: NACL 0.9 (PRIMING MACHINE ONLY DIALYSIS) MC ONE (20:21)
[2017-08-30] MEDS: PROCRIT IV PRN (20:33)
[2017-08-30] MEDS ORDERED: ZOFRAN IV PRN (22:01)
[2017-08-30] MEDS ORDERED: SODIUM CHLORIDE FLUSH SYRINGE 10 ML IV PRN (22:01)
[2017-08-30] MEDS ORDERED: TYLENOL PO PRN (22:01)
--- NOTE | 2017-08-30 22:01 | Event Note ---
Date: 08/30/17 See dictated history and physical in the reports Volume overload End-stage renal disease on dialysis
[2017-08-30] MEDS ORDERED: PROAIR IH PRN (22:03)
[2017-08-30] MEDS: COREG PO SCH (22:46)
[2017-08-30] MEDS ORDERED: PROVENTIL IH PRN (23:14)
[2017-08-30] MEDS: MORPHINE IV PRN (23:19)
--- NOTE | 2017-08-31 03:21 | History and Physical Report ---
CHIEF COMPLAINT: Increasing shortness of breath since morning. HISTORY OF PRESENT ILLNESS: A 27-year-old male had incomplete dialysis in the last 2 sessions. He has been having increasing shortness of breath and orthopnea. No chest pain. The patient had 15 minutes of dialysis, after which he was sent to the hospital. The patient also has chronic nausea and vomiting. No fever. The patient is on home oxygen. No chest pain reported. ALLERGIES: The patient is allergic to . PAST MEDICAL HISTORY: As mentioned, hypertension; end-stage renal disease, on dialysis; and then gastroesophageal reflux disease; also, hidradenitis; and cardiomyopathy. PAST SURGICAL HISTORY: Peritoneal dialysis catheter insertion and removal in the past, AV fistula. Lymph nodes removed from the left groin, tonsillectomy. The patient has a history of peritoneal dialysis. SOCIAL HISTORY: He smokes about a pack a day. FAMILY HISTORY: Significant for hypertension. CURRENT MEDICATIONS: On the chart. REVIEW OF SYSTEMS: Significant for increasing shortness of breath over the last 3-4 days. No fever. No chills. A 14-point review of systems done. Otherwise, negative. PHYSICAL EXAMINATION: GENERAL: Young male in [id number] respiratory distress. VITAL SIGNS: Temperature is 98.2, pulse is 78, respiratory rate is 24, and blood pressure is 172/110. HEENT: Unremarkable. Pupils equal and reactive. NECK: Supple, no lymphadenopathy, no thyromegaly. LUNGS: Clear to auscultation and percussion. Good air entry. CARDIOVASCULAR: S1, S2 heard. No gallop, no murmur, or no rub. Apical impulse in left fifth intercostal space and midclavicular line. ABDOMEN: Soft and benign. No hepatosplenomegaly. No guarding, no rigidity. Hernial orifices are normal. EXTREMITIES: Good pedal pulses. No pedal edema. CENTRAL NERVOUS SYSTEM: Alert and oriented x 4, nonfocal exam. SKIN: Normal. LABORATORY DATA: EKG, normal sinus rhythm, heart rate of 78 per minute, and nonspecific ST-T wave changes present. Chest x-ray shows marked cardiomegaly and clear lungs. ASSESSMENT AND PLAN: 1. Acute respiratory failure secondary to volume overload and hypoxia. The patient needs emergent dialysis. 2. Hypertensive emergency, adjust the blood pressure medications. 3. End-stage renal disease, on dialysis, continue hemodialysis. 4. Depression, continue Zoloft and trazodone. 5. Asthma, continue Floair. 5. Muscle spasms, continue Flexeril 10 mg 5 once a day. 6. Gastroesophageal reflux disease, continue Nexium 40 mg once a day. 7. Deep venous thrombosis prophylaxis, heparin 5000 every 12. JOB# [id number] VSM/NTS
[2017-08-31] MEDS: MORPHINE IV PRN ×4 (05:44→20:19)
--- NOTE | 2017-08-31 09:01 | Progress Note ---
Assessment and Plan Assessment and plan: Patient is a 27 yo man with a history of hypertension, ESRD on hemodialysis by Dr. Salinas, AOCD, CHF/40% EF, Asthma, GERD, MDD, recurrent abd ascites, tobacco dependency, chronic nausea, chronic back pains and chronic hypoxic respiratory failure on home O2 who presented to ED with cough and SOB. He has not had a full HD session in 1 week. * pCXR IMPRESSION: Marked cardiomegaly. Lungs clear. -Acute on chronic hypoxic respiratory failure due to fluid overload: increase o2 -Accelerated hypertension with urgency: treat with iv hydralazine -ESRD with hyperkalemia and fluid overload: Consulted Nephology to manage -Chronic systolic heart failure worsening due to fluid overload: need hemodialysis -Tobacco dependency: counselling on stopping -DVT prophylaxis: sq heparin Anticipate discharge in am History Interval history: Patient was seen and examined. Follow-up on current diagnosis of sob. Overnight uneventful. Patient denies any chest pain, or severe headaches. Imaging, nursing note, chart, labs and old chart reviewed. Discussed with patient. Hospitalist Physical - Physical exam Narrative exam: GEN: WDWN, NAD, Awake, Alert, Orientated x 3 HEENT: NCAT, EOMI, PERRL, OP Clear NECK: supple, no adenopathy, no thyromegaly, no JVD CVS/HEART: RRR, normal S1S2, pulses present bilaterally CHEST/LUNGS: diminished bs bilateral, Symmetrical chest expansion, good air entry bilaterally GI/Abdomen: soft, NTND, good bowel sounds, no guarding or rebound /Bladder: no suprapubic tenderness, no CVA or paraspinal tenderness EXT/Skin: no c/c/e, no obvious rash MSK: FROM x 4 Neuro: CN 2-12 grossly intact, no new focal deficits Psych: calm - Constitutional Vitals: Temp Pulse Resp BP Pulse Ox 97.7 F 70 16 151/86 87 08/31/17 04:24 08/31/17 04:24 08/31/17 06:14 08/31/17 04:24 08/31/17 04:24 Results - Labs CBC & Chem 7: 08/31/17 07:01 08/31/17 07:01 Labs: Laboratory Last Values WBC 6.6 K/mm3 (4.5-11.0) 08/30/17 13:15 RBC 3.42 M/mm3 (3.65-5.03) L 08/30/17 13:15 Hgb 9.5 gm/dl (11.8-15.2) L 08/30/17 13:15 Hct 29.6 % (35.5-45.6) L 08/30/17 13:15 MCV 87 fl (84-94) 08/30/17 13:15 MCH 28 pg (28-32) 08/30/17 13:15 MCHC 32 % (32-34) 08/30/17 13:15 RDW 21.2 % (13.2-15.2) H 08/30/17 13:15 Plt Count 129 K/mm3 (140-440) L 08/30/17 13:15 Lymph % (Auto) 26.6 % (13.4-35.0) 08/30/17 13:15 [place] % (Auto) 9.4 % (0.0-7.3) H 08/30/17 13:15 Eos % (Auto) 1.3 % (0.0-4.3) 08/30/17 13:15 Baso % (Auto) 2.0 % (0.0-1.8) H 08/30/17 13:15 Lymph # 1.8 K/mm3 (1.2-5.4) 08/30/17 13:15 [place] # 0.6 K/mm3 (0.0-0.8) 08/30/17 13:15 Eos # 0.1 K/mm3 (0.0-0.4) 08/30/17 13:15 Baso # 0.1 K/mm3 (0.0-0.1) 08/30/17 13:15 Seg Neutrophils % 60.7 % (40.0-70.0) 08/30/17 13:15 Seg Neutrophils # 4.0 K/mm3 (1.8-7.7) 08/30/17 13:15 Sodium 140 mmol/L (137-145) 08/30/17 13:15 Potassium 5.9 mmol/L (3.6-5.0) H 08/30/17 13:15 Chloride 95.3 mmol/L (98-107) L 08/30/17 13:15 Carbon Dioxide 22 mmol/L (22-30) 08/30/17 13:15 Anion Gap 29 mmol/L 08/30/17 13:15 BUN 79 mg/dL (9-20) H 08/30/17 13:15 Creatinine 9.4 mg/dL (0.8-1.5) H 08/30/17 13:15 Estimated GFR 7 ml/min 08/30/17 13:15 BUN/Creatinine Ratio 8 % 08/30/17 13:15 Glucose 90 mg/dL (75-100) 08/30/17 13:15 Hemoglobin A1c 4.9 % (4-6) 08/30/17 22:30 Calcium 8.8 mg/dL (8.4-10.2) 08/30/17 13:15 NT-Pro-B Natriuret Pep > 08415 pg/mL (0-450) H 08/30/17 13:15
[2017-08-31 09:12] LABS: Basophils # (Auto) 0.1 K/mm3 (0.0-0.1); Basophils % (Auto) 1.3 % (0.0-1.8); Eosinophils # (Auto) 0.2 K/mm3 (0.0-0.4); Eosinophils % (Auto) 1.9 % (0.0-4.3); Hematocrit 31.6 % (35.5-45.6); Lymphocytes # (Auto) 1.2 K/mm3 (1.2-5.4); Lymphocytes % (Auto) 13.7 % (13.4-35.0); Mean Corpuscular HGB Conc 32 % (32-34); Mean Corpuscular Hemoglobin 28 pg (28-32); Mean Corpuscular Volume 87 fl (84-94); Monocytes # (Auto) 0.6 K/mm3 (0.0-0.8); Monocytes % (Auto) 6.6 % (0.0-7.3); Platelet Count 135 K/mm3 (140-440); Red Blood Count 3.63 M/mm3 (3.65-5.03)
[2017-08-31 09:14] LABS: Red Cell Distribution Width 20.9 % (13.2-15.2)
[2017-08-31] MEDS ORDERED: HEPARIN SUB-Q SCH (10:00)
[2017-08-31] MEDS ORDERED: DIALYVITE ZINC PO SCH (10:00)
[2017-08-31] MEDS: PROCARDIA XL PO SCH (10:03)
[2017-08-31] MEDS: ZOLOFT PO SCH (10:04)
[2017-08-31] MEDS: PROTONIX PO SCH (10:04)
[2017-08-31] MEDS: PEPCID PO SCH ×2 (10:04→22:15)
[2017-08-31] MEDS: COREG PO SCH ×2 (10:04→22:15)
[2017-08-31] MEDS: HABITROL TD SCH (10:05)
[2017-08-31] MEDS: Renal Caps PO SCH (10:05)
[2017-08-31] MEDS: CATAPRES PO SCH ×6 (10:05→20:20)
[2017-08-31] MEDS: APRESOLINE PO SCH ×3 (10:06→22:15)
[2017-08-31] MEDS: SODIUM CHLORIDE FLUSH SYRINGE 10 ML IV SCH ×2 (10:07→22:15)
[2017-08-31 11:58] LABS: Albumin 3.7 g/dL (3.9-5); Calcium 9.2 mg/dL (8.4-10.2)
--- NOTE | 2017-08-31 12:15 | Progress Note ---
Assessment and Plan Assessment: * End stage renal disease on intermittent hemodialysis * Hyperkalemia * Hx of recurrent abdominal ascites * Accelerated hypertension * Anemia secondary to ESRD * Secondary hyperparathyroidism * Medical noncompliance Plan * Offered an additional hemodialysis treatment today - patient reluctant but agreeable * Continue hemodialysis TTS schedule * UF as tolerated * Continue current antiHTN medications * Epogen TIW prn * Change diet to renal Subjective Date of service: 08/31/17 Interval history: Patient has no complaint today. Objective - Vital Signs Vital signs: Vital Signs - 12hr 08/31/17 08/31/17 08/31/17 04:24 05:44 06:14 Temperature 97.7 F Pulse Rate 70 Respiratory 20 17 16 Rate Blood Pressure 151/86 O2 Sat by Pulse 87 Oximetry 08/31/17 08/31/17 08/31/17 07:50 10:04 10:05 Temperature 98.4 F Pulse Rate 70 70 70 Respiratory 16 Rate Blood Pressure 167/101 167/104 167/104 O2 Sat by Pulse 94 Oximetry - General Appearance General appearance: well-developed, well-nourished EENT: ATNC Respiratory: Present: Decreased Breath Sounds Cardiology: regular, S1S2 Gastrointestinal: no tenderness, distended Integumentary: no rash, warm and dry Neurologic: no focal deficit Musculoskeletal: other (+edema) Psychiatric: cooperative - Lab 08/31/17 07:01 08/31/17 07:01 Most recent lab results Calcium 9.2 mg/dL (8.4-10.2) 08/31/17 07:01
[2017-08-31] MEDS ORDERED: NACL 0.9% 100 ML IV PRN (14:48)
[2017-08-31] MEDS ORDERED: NACL 0.9 (PRIMING MACHINE ONLY DIALYSIS) MC ONE (16:30)
[2017-08-31] MEDS: PROCRIT IV PRN (18:27)
[2017-08-31] MEDS ORDERED: DESYREL PO SCH (22:00)
[2017-09-01] MEDS: MORPHINE IV PRN ×3 (01:00→16:01)
[2017-09-01] MEDS: CATAPRES PO SCH ×4 (09:37→15:59)
[2017-09-01] MEDS: APRESOLINE PO SCH ×2 (09:37→16:00)
--- NOTE | 2017-09-01 10:31 | Progress Note ---
Assessment and Plan Assessment: * End stage renal disease on intermittent hemodialysis * Hyperkalemia * Hx of recurrent abdominal ascites * Accelerated hypertension * Anemia secondary to ESRD * Secondary hyperparathyroidism * Medical noncompliance Plan * Continue hemodialysis TTS schedule * UF as tolerated * Continue current antiHTN medications * Epogen TIW prn * Change diet to renal * Stable for d/c from a renal standpoint following dialysis today Subjective Date of service: 09/01/17 Interval history: Patient seen on dialysis. Objective - Vital Signs Vital signs: Vital Signs - 12hr 08/31/17 09/01/17 09/01/17 23:11 03:40 04:00 Temperature 97.9 F 97.5 F L 97.9 F Pulse Rate 71 73 78 Respiratory 16 16 16 Rate Blood Pressure 143/77 Blood Pressure 112/63 [Right] O2 Sat by Pulse 90 97 98 Oximetry 09/01/17 09/01/17 09/01/17 08:26 08:32 09:38 Temperature 98.2 F Pulse Rate 72 70 Respiratory 20 20 Rate Blood Pressure 145/83 Blood Pressure 145/83 [Right] O2 Sat by Pulse 94 94 96 Oximetry - General Appearance General appearance: frail EENT: ATNC Respiratory: Present: Decreased Breath Sounds Cardiology: regular, S1S2 Gastrointestinal: no tenderness, distended Integumentary: warm and dry Neurologic: no focal deficit Musculoskeletal: other (+ edema) Psychiatric: cooperative - Lab 08/31/17 07:01 08/31/17 07:01 Most recent lab results Calcium 9.2 mg/dL (8.4-10.2) 08/31/17 07:01
[2017-09-01] MEDS ORDERED: NACL 0.9 (PRIMING MACHINE ONLY DIALYSIS) MC ONE (15:42)
[2017-09-01] MEDS: SODIUM CHLORIDE FLUSH SYRINGE 10 ML IV SCH (16:02)
--- NOTE | 2017-09-01 16:30 | Progress Note ---
Assessment and Plan Assessment and plan: Patient is a 27 yo man with a history of hypertension, ESRD on hemodialysis by Dr. Salinas, AOCD, CHF/40% EF, Asthma, GERD, MDD, recurrent abd ascites, tobacco dependency, chronic nausea, chronic back pains and chronic hypoxic respiratory failure on home O2 who presented to ED with cough and SOB. He has not had a full HD session in 1 week. * pCXR IMPRESSION: Marked cardiomegaly. Lungs clear. -Acute on chronic hypoxic respiratory failure due to fluid overload: increase o2 -Accelerated hypertension with urgency: treat with iv hydralazine. -ESRD with hyperkalemia and fluid overload: Consulted Nephology to manage -Chronic systolic heart failure worsening due to fluid overload: need hemodialysis -Tobacco dependency: counselling on stopping -DVT prophylaxis: sq heparin Anticipate discharge if bp stable. Patient did not receive morning bp medications. History Interval history: Patient was seen and examined. Follow-up on current diagnosis of sob. Overnight uneventful. Patient denies any chest pain, or severe headaches. Imaging, nursing note, chart, labs and old chart reviewed. Discussed with patient. Hospitalist Physical - Physical exam Narrative exam: GEN: WDWN, NAD, Awake, Alert, Orientated x 3 HEENT: NCAT, EOMI, PERRL, OP Clear NECK: supple, no adenopathy, no thyromegaly, no JVD CVS/HEART: RRR, normal S1S2, pulses present bilaterally CHEST/LUNGS: diminished bs bilateral, Symmetrical chest expansion, good air entry bilaterally GI/Abdomen: soft, NTND, good bowel sounds, no guarding or rebound /Bladder: no suprapubic tenderness, no CVA or paraspinal tenderness EXT/Skin: no c/c/e, no obvious rash MSK: FROM x 4 Neuro: CN 2-12 grossly intact, no new focal deficits Psych: calm - Constitutional Vitals: Temp Pulse Resp BP Pulse Ox 98.1 F 70 20 191/102 100 09/01/17 15:43 09/01/17 15:59 09/01/17 15:43 09/01/17 15:59 09/01/17 15:43 Results - Labs CBC & Chem 7: 08/31/17 07:01 08/31/17 07:01 Labs: Laboratory Last Values WBC 8.5 K/mm3 (4.5-11.0) 08/31/17 07:01 RBC 3.63 M/mm3 (3.65-5.03) L 08/31/17 07:01 Hgb 10.0 gm/dl (11.8-15.2) L 08/31/17 07:01 Hct 31.6 % (35.5-45.6) L 08/31/17 07:01 MCV 87 fl (84-94) 08/31/17 07:01 MCH 28 pg (28-32) 08/31/17 07:01 MCHC 32 % (32-34) 08/31/17 07:01 RDW 20.9 % (13.2-15.2) H 08/31/17 07:01 Plt Count 135 K/mm3 (140-440) L 08/31/17 07:01 Lymph % (Auto) 13.7 % (13.4-35.0) 08/31/17 07:01 [place] % (Auto) 6.6 % (0.0-7.3) 08/31/17 07:01 Eos % (Auto) 1.9 % (0.0-4.3) 08/31/17 07:01 Baso % (Auto) 1.3 % (0.0-1.8) 08/31/17 07:01 Lymph # 1.2 K/mm3 (1.2-5.4) 08/31/17 07:01 [place] # 0.6 K/mm3 (0.0-0.8) 08/31/17 07:01 Eos # 0.2 K/mm3 (0.0-0.4) 08/31/17 07:01 Baso # 0.1 K/mm3 (0.0-0.1) 08/31/17 07:01 Seg Neutrophils % 76.5 % (40.0-70.0) H 08/31/17 07:01 Seg Neutrophils # 6.5 K/mm3 (1.8-7.7) 08/31/17 07:01 Sodium 139 mmol/L (137-145) 08/31/17 07:01 Potassium 5.3 mmol/L (3.6-5.0) H 08/31/17 07:01 Chloride 93.1 mmol/L (98-107) L 08/31/17 07:01 Carbon Dioxide 24 mmol/L (22-30) 08/31/17 07:01 Anion Gap 27 mmol/L 08/31/17 07:01 BUN 56 mg/dL (9-20) H 08/31/17 07:01 Creatinine 7.4 mg/dL (0.8-1.5) H 08/31/17 07:01 Estimated GFR 9 ml/min 08/31/17 07:01 BUN/Creatinine Ratio 8 % 08/31/17 07:01 Glucose 87 mg/dL (75-100) 08/31/17 07:01 Hemoglobin A1c 4.9 % (4-6) 08/30/17 22:30 Calcium 9.2 mg/dL (8.4-10.2) 08/31/17 07:01 Total Bilirubin 0.50 mg/dL (0.1-1.2) 08/31/17 07:01 AST 30 units/L (5-40) 08/31/17 07:01 ALT 12 units/L (7-56) 08/31/17 07:01 Alkaline Phosphatase 118 units/L (35-129) 08/31/17 07:01 NT-Pro-B Natriuret Pep > 26335 pg/mL (0-450) H 08/30/17 13:15 Total Protein 8.4 g/dL (6.3-8.2) H 08/31/17 07:01 Albumin 3.7 g/dL (3.9-5) L 08/31/17 07:01 Albumin/Globulin Ratio 0.8 % 08/31/17 07:01
[2017-09-01] MEDS: ZOLOFT PO SCH (16:49)
[2017-09-01] MEDS: Renal Caps PO SCH (16:49)
[2017-09-01] MEDS: PEPCID PO SCH (16:49)
[2017-09-01] MEDS: PROCARDIA XL PO SCH (16:49)
[2017-09-01] MEDS: HABITROL TD SCH (16:49)
[2017-09-01 16:50] VITALS: BP 162/84
[2017-09-01] MEDS: COREG PO SCH (16:50)
[2017-09-01] MEDS: PROTONIX PO SCH (16:50)
--- NOTE | 2017-09-01 18:22 | Discharge Summary ---
Providers - Providers Date of Admission: 08/30/17 15:32 Date of discharge: 09/01/17 Attending physician: ENRIQUE CORDON 08/30/17 15:21 Consult to Physician [CONS] Urgent Comment: Consulting Provider: ROXANNE DE LA CRUZ Physician Instructions: Reason For Exam: esrd needing dialysis Primary care physician: PURIFICATION SUPERVISOR Hospitalization Condition: Stable Hospital course: Patient is a 27 yo man with a history of hypertension, ESRD on hemodialysis by Dr. Salinas, AOCD, CHF/40% EF, Asthma, GERD, MDD, recurrent abd ascites, tobacco dependency, chronic nausea, chronic back pains and chronic hypoxic respiratory failure on home O2 who presented to ED with cough and SOB. He has not had a full HD session in 1 week. * pCXR IMPRESSION: Marked cardiomegaly. Lungs clear. -Acute on chronic hypoxic respiratory failure due to fluid overload: increase o2 -Accelerated hypertension with urgency: treat with iv hydralazine. -ESRD with hyperkalemia and fluid overload: Consulted Nephology to manage -Chronic systolic heart failure worsening due to fluid overload: need hemodialysis, no bianca/arb b/c renal disorder and hyperkalemia -Tobacco dependency: counselling on stopping -DVT prophylaxis: sq heparin Anticipate discharge if bp stable. Patient did not receive morning bp medications. Disposition: DC TO HOME OR SELFCARE Time spent for discharge: 35 minutes Core Measure Documentation - Palliative Care Palliative Care/ Comfort Measures: Not Applicable - Core Measures Any of the following diagnoses?: none - VTE Discharge Requirements Deep Vein Thrombosis/Pulmonary Embolism Present on Admission: No Has pt received <5 days of overlap therapy or INR<2.0: No Anticoagulant overlap therapy prescribed at discharge: No Contraindication No Overlap Therapy order at DC: Not Indicated Exam - Physical Exam Narrative exam: GEN: WDWN, NAD, Awake, Alert, Orientated x 3 HEENT: NCAT, EOMI, PERRL, OP Clear NECK: supple, no adenopathy, no thyromegaly, no JVD CVS/HEART: RRR, normal S1S2, pulses present bilaterally CHEST/LUNGS: diminished bs bilateral, Symmetrical chest expansion, good air entry bilaterally GI/Abdomen: soft, NTND, good bowel sounds, no guarding or rebound /Bladder: no suprapubic tenderness, no CVA or paraspinal tenderness EXT/Skin: no c/c/e, no obvious rash MSK: FROM x 4 Neuro: CN 2-12 grossly intact, no new focal deficits Psych: calm - Constitutional Vitals: Temp Pulse Resp BP Pulse Ox 98.1 F 70 20 162/84 100 09/01/17 15:43 09/01/17 16:50 09/01/17 15:43 09/01/17 16:50 09/01/17 15:43 Plan Activity: other (no strenous activity) Diet: renal Follow up with: SAAD CRAWFORD MD [Primary Care Provider] - 3-5 Days ROXANNE DE LA CRUZ MD [Staff Physician] - 7 Days
== END 2017-09-01 20:46 | disposition home or self-care (01) | DRG 291 ==
LOC: ED 12:54 → 3A 15:32
PROVIDERS: ADMIT Internal Medicine; ATTEND Internal Medicine
PROC: 5A1D70Z Performance of Urinary Filtration, Intermittent, Less than 6 Hours Per Day (ICD-10-PCS; principal; 2017-08-30)
PROC: 5A1D70Z Performance of Urinary Filtration, Intermittent, Less than 6 Hours Per Day (ICD-10-PCS; 2017-08-31)
PROC: 5A1D70Z Performance of Urinary Filtration, Intermittent, Less than 6 Hours Per Day (ICD-10-PCS; 2017-09-01)
DX: I13.2 Hypertensive heart and chronic kidney disease with heart failure and with stage 5 chronic kidney disease, or end stage renal disease (principal); N18.6 End stage renal disease; J96.21 Acute and chronic respiratory failure with hypoxia; I16.1 Hypertensive emergency; N25.81 Secondary hyperparathyroidism of renal origin; I50.22 Chronic systolic (congestive) heart failure; I42.9 Cardiomyopathy, unspecified; E87.5 Hyperkalemia; Z99.2 Dependence on renal dialysis; J45.909 Unspecified asthma, uncomplicated; K21.9 Gastro-esophageal reflux disease without esophagitis; F32.9 Major depressive disorder, single episode, unspecified; G89.29 Other chronic pain; M54.9 Dorsalgia, unspecified; Z99.81 Dependence on supplemental oxygen; Z71.6 Tobacco abuse counseling; F17.200 Nicotine dependence, unspecified, uncomplicated; Z82.49 Family history of ischemic heart disease and other diseases of the circulatory system; M62.838 Other muscle spasm; Z91.15 Patient's noncompliance with renal dialysis; Z88.8 Allergy status to other drugs, medicaments and biological substances; D63.1 Anemia in chronic kidney disease; Z91.14 Patient's other noncompliance with medication regimen
CPT/HCPCS: 36415; 71045; 80048; 80053; 83036; 83880; 85025; 93005; 93010; 96365; 96375; 99406; J0885; J2270; J2405; J7030

== ENCOUNTER 2017-10-28 07:04 | Day surgery (SDC) | payer MEDICARE ==
[2017-10-28 07:54] LABS: INR 1.14 (0.87-1.13)
--- NOTE | 2017-10-28 09:04 | Short Stay Summary ---
Short Stay Documentation Date of service: 10/28/17 - History Principal diagnosis: right pleural effusion Past Medical History: ESRD - Allergies and Medications Current Medications: Allergies heparin Allergy (Verified 02/19/17 13:22) lowers platelets Home Medications Medication Instructions Recorded Confirmed Last Taken Type Dialyvite 800-Zinc 15 mg Tab 800 mg PO QDAY 02/15/17 10/28/17 10/27/17 History 800mg Carvedilol [Coreg] 12.5 mg PO BID tablet 03/20/17 10/28/17 10/28/17 Rx 12.5mg Sertraline [Zoloft] 100 mg PO QDAY tablet 03/20/17 10/28/17 10/27/17 Rx 100mg cloNIDine [Catapres] 0.3 mg PO TID tablet 03/20/17 10/28/17 10/28/17 Rx 0.3mg traZODone [Desyrel] 100 mg PO QHS tablet 03/20/17 10/28/17 10/27/17 Rx 100mg Esomeprazole Magnesium [Nexium] 40 mg PO DAILY 04/27/17 10/28/17 10/27/17 History 40mg ALBUTEROL Inhaler [ProAir HFA 2 puff IH QID PRN #1 inhalation 07/18/17 10/28/17 10/27/17 Rx Inhaler] 2 hydrALAZINE [Apresoline TAB] 100 mg PO TID #90 tab 07/18/17 10/28/17 10/28/17 Rx 100mg NIFEdipine [Nifedipine ER] 90 mg PO DAILY 08/30/17 10/28/17 10/28/17 History 90mg - Physical exam General appearance: no acute distress Lungs: Clear to auscultation - Brief post op/procedure progress note Date of procedure: 10/28/17 Pre-op diagnosis: right pleural effusion Post-op diagnosis: same Procedure: US thoracentesis Anesthesia: local Findings: moderate right pleural fluid Surgeon: AR ALVAREZ Estimated blood loss: none Pathology: list (60cc saved if needed. No labs ordered) Specimen disposition: to lab Condition: stable - Disposition Condition at discharge: Good Disposition: DC-01 TO HOME OR SELFCARE Short Stay Discharge Plan Follow up with: PRIMARY CARE, [Primary Care Provider] - 7 Days
[2017-10-28] MEDS ORDERED: ZOFRAN ONE (09:17)
--- NOTE | 2017-10-28 09:17 | Ultrasound Report ---
ULTRASOUND THORACENTESIS History: Bilateral pleural effusions Description of procedure: Informed consent was obtained. Sterile technique was utilized. 1% lidocaine for skin anesthesia. Using ultrasound guidance, a 5 Slovak centesis needle was advanced into the right pleural space. 1 L of clear yellow fluid was aspirated. 60 cc of fluid was saved for laboratory analysis if needed. Trace left pleural fluid was also identified which was too small for thoracentesis. Impression: Successful ultrasound-guided right thoracentesis.
[2017-10-28] MEDS ORDERED: ZOFRAN IV ONE (09:36)
[2017-10-28 10:11] VITALS: BP 159/91
--- NOTE | 2017-10-28 10:17 | XRay Report ---
AP CHEST: HISTORY: Right pleural effusion, post thoracentesis film Recent ultrasound-guided right thoracentesis was performed in which one liter of fluid was aspirated. There is complete evacuation of the right pleural fluid. There is no evidence for pneumothorax. Marked cardiomegaly and mild pulmonary venous congestion and trace left pleural effusion are noted. IMPRESSION: No evidence for pneumothorax.
[2017-10-28 14:22] LABS: Total Cells Counted 100 /mm3
== END 2017-10-28 11:00 | disposition home or self-care (01) ==
LOC: CATHLABREC 07:04 → EDSTATUS 07:30 → CATHLABREC 11:00
PROVIDERS: ATTEND Specialist
DX: J90 Pleural effusion, not elsewhere classified (principal); I13.2 Hypertensive heart and chronic kidney disease with heart failure and with stage 5 chronic kidney disease, or end stage renal disease; N18.6 End stage renal disease; I50.9 Heart failure, unspecified; K21.0 Gastro-esophageal reflux disease with esophagitis; F17.200 Nicotine dependence, unspecified, uncomplicated; I42.9 Cardiomyopathy, unspecified; M19.90 Unspecified osteoarthritis, unspecified site; F32.9 Major depressive disorder, single episode, unspecified; Z82.49 Family history of ischemic heart disease and other diseases of the circulatory system; Z79.899 Other long term (current) drug therapy; Z88.8 Allergy status to other drugs, medicaments and biological substances; Z86.2 Personal history of diseases of the blood and blood-forming organs and certain disorders involving the immune mechanism; Z86.718 Personal history of other venous thrombosis and embolism; Z99.2 Dependence on renal dialysis; Z98.890 Other specified postprocedural states
CPT/HCPCS: 32555; 36415; 71045; 85610; 87116; 88112; 88305; 89051; 96374; J2405

== ENCOUNTER 2017-12-19 22:20 | Inpatient (IN) | payer MEDICARE ==
[2017-12-19 23:52] LABS: Hematocrit 24.6 % (35.5-45.6); Hemoglobin 8.4 gm/dl (11.8-15.2); Mean Corpuscular HGB Conc 34 % (32-34); Mean Corpuscular Hemoglobin 29 pg (28-32); Mean Corpuscular Volume 86 fl (84-94); Red Blood Count 2.87 M/mm3 (3.65-5.03); Red Cell Distribution Width 19.6 % (13.2-15.2)
[2017-12-20 00:01] LABS: Platelet Count 92 K/mm3 (140-440)
[2017-12-20 00:10] LABS: Albumin 3.9 g/dL (3.9-5); Calcium 8.3 mg/dL (8.4-10.2)
[2017-12-20] MEDS ORDERED: D50W (25GM) Syringe IV ONE (06:55)
[2017-12-20] MEDS ORDERED: HumuLIN R IV ONE (06:55)
[2017-12-20] MEDS ORDERED: CALCIUM CHLORIDE IV ONE (06:55)
--- NOTE | 2017-12-20 07:00 | Emergency Department Report ---
ED General Adult HPI - General Chief complaint: Medical Clearance Stated complaint: Dialysis Time Seen by Provider: 12/20/17 06:46 Source: patient Mode of arrival: Ambulatory Limitations: No Limitations - History of Present Illness Initial comments: 27-year-old male with history of CHF, end-stage renal disease. Patient states he has been one week since being dialyzed. The patient gives no real reason as to why he has missed dialysis. States he attempted to go to dialysis clinic on yesterday, but was told to come to the ER since he has missed 2 dialysis appointments. Patient normally on [facility] schedule. Patient denies shortness of breath. Reports increased swelling in bilateral lower legs. Buffet Runner: Dr Brad BROOKS Complaint: Needs dialysis Severity scale (0 -10): 9 Associated Symptoms: denies: chest pain, nausea/vomiting, shortness of breath Treatments Prior to Arrival: none - Related Data Home Medications Medication Instructions Recorded Confirmed Last Taken Dialyvite 800-Zinc 15 mg Tab 800 mg PO QDAY 02/15/17 10/28/17 10/27/17 800mg Esomeprazole Magnesium [Nexium] 40 mg PO DAILY 04/27/17 10/28/17 10/27/17 40mg NIFEdipine [Nifedipine ER] 90 mg PO DAILY 08/30/17 10/28/17 10/28/17 90mg Previous Rx's Medication Instructions Recorded Last Taken Type Carvedilol [Coreg] 12.5 mg PO BID tablet 03/20/17 10/28/17 Rx 12.5mg Sertraline [Zoloft] 100 mg PO QDAY tablet 03/20/17 10/27/17 Rx 100mg cloNIDine [Catapres] 0.3 mg PO TID tablet 03/20/17 10/28/17 Rx 0.3mg traZODone [Desyrel] 100 mg PO QHS tablet 03/20/17 10/27/17 Rx 100mg ALBUTEROL Inhaler (OR & NICU) 2 puff IH QID PRN #1 inhalation 07/18/17 10/27/17 Rx [ProAir HFA Inhaler] 2 hydrALAZINE [Apresoline TAB] 100 mg PO TID #90 tab 07/18/17 10/28/17 Rx 100mg Allergies Allergy/AdvReac Type Severity Reaction Status Date / Time heparin Allergy lowers Verified 12/09/17 13:22 platelets ED Review of Systems ROS: Stated complaint: LEG AND BACK PAIN Other details as noted in HPI Comment: All other systems reviewed and negative Constitutional: denies: chills, fever Respiratory: denies: shortness of breath Cardiovascular: denies: chest pain Gastrointestinal: denies: nausea, vomiting ED Past Medical Hx - Past Medical History Hx Hypertension: Yes Hx Heart Attack/AMI: No Hx Congestive Heart Failure: Yes (2L HOME O2) Hx Diabetes: No Hx Deep Vein Thrombosis: No Hx GERD: Yes Hx Renal Disease: Yes (HD ( / / Sat)) Hx Arthritis: Yes (SPINE) Hx Asthma: No Hx COPD: No Hx HIV: No Additional medical history: Hidradenitis, EJF 40%, enlarged heart - Surgical History Hx Pacemaker: No Additional Surgical History: PD CATHETER - AND REMOVAL. AV FISTULA. LYMPH NODES REMOVED LEFT GROIN. TONSILLECTOMY. Patient does have a history of peritonitis with previous PD - Social History Smoking Status: Never Smoker Substance Use Type: None - Medications Home Medications: Home Medications Medication Instructions Recorded Confirmed Last Taken Type Dialyvite 800-Zinc 15 mg Tab 800 mg PO QDAY 02/15/17 10/28/17 10/27/17 History 800mg Carvedilol [Coreg] 12.5 mg PO BID tablet 03/20/17 10/28/17 10/28/17 Rx 12.5mg Sertraline [Zoloft] 100 mg PO QDAY tablet 03/20/17 10/28/17 10/27/17 Rx 100mg cloNIDine [Catapres] 0.3 mg PO TID tablet 03/20/17 10/28/17 10/28/17 Rx 0.3mg traZODone [Desyrel] 100 mg PO QHS tablet 03/20/17 10/28/17 10/27/17 Rx 100mg Esomeprazole Magnesium [Nexium] 40 mg PO DAILY 04/27/17 10/28/17 10/27/17 History 40mg ALBUTEROL Inhaler (OR & NICU) 2 puff IH QID PRN #1 inhalation 07/18/17 10/28/17 10/27/17 Rx [ProAir HFA Inhaler] 2 hydrALAZINE [Apresoline TAB] 100 mg PO TID #90 tab 0510/28/17 10/28/17 Rx 100mg NIFEdipine [Nifedipine ER] 90 mg PO DAILY 08/30/17 10/28/17 10/28/17 History 90mg ED Physical Exam - General Limitations: No Limitations General appearance: alert - Head Head exam: Present: atraumatic, normocephalic - ENT ENT exam: Present: mucous membranes moist - Neck Neck exam: Present: normal inspection - Respiratory Respiratory exam: Present: normal lung sounds bilaterally. Absent: respiratory distress - Cardiovascular Cardiovascular Exam: Present: regular rate, normal rhythm - GI/Abdominal GI/Abdominal exam: Present: soft. Absent: tenderness - Extremities Exam Extremities exam: Present: other (2 edema present in bilateral lower extremities ) - Neurological Exam Neurological exam: Present: alert, oriented X3 - Psychiatric Psychiatric exam: Present: normal affect, normal mood - Skin Skin exam: Present: warm, dry, intact ED Course Vital Signs 12/19/17 12/19/17 12/20/17 22:27 22:51 06:12 Temperature 98.8 F 98.8 F 97.7 F Pulse Rate 79 95 H 73 Respiratory 18 18 20 Rate Blood Pressure 205/109 205/109 199/107 O2 Sat by Pulse 96 98 94 Oximetry 12/20/17 12/20/17 12/20/17 07:06 07:16 07:30 Temperature Pulse Rate 69 71 71 Respiratory 19 16 14 Rate Blood Pressure 199/117 210/111 O2 Sat by Pulse 90 86 Oximetry 12/20/17 12/20/17 12/20/17 07:46 08:00 08:15 Temperature Pulse Rate 70 Respiratory 15 15 Rate Blood Pressure 199/117 200/115 O2 Sat by Pulse 88 96 96 Oximetry 12/20/17 12/20/17 12/20/17 08:30 09:45 10:00 Temperature 97.8 F Pulse Rate 70 80 76 Respiratory 12 24 Rate Blood Pressure 200/115 211/119 208/113 O2 Sat by Pulse 95 Oximetry - Reevaluation(s) Reevaluation #1: 12/20/17 06:55 Pt w/ ESRD from placed in room 2 from waiting room. Missed dialysis x 1 week. Potassium results from last night at 10 pm is 6.5. Will order therapy for hyperkalemia, EKG, CXR and repeat potassium. - Consultations Consultation #1: 10/09/18 08:01 Spoke w/ Dr Salinas, covered button maker. States will dialyze pt. Wants pt admitted since has been 1 week since last dialyzed and will likely need another treatment tomorrow. ED Medical Decision Making - Lab Data Result diagrams: 12/19/17 22:58 12/20/17 06:50 - EKG Data -: EKG Interpreted by Me EKG shows normal: sinus rhythm, axis, intervals, QRS complexes, ST-T waves - EKG Data Interpretation: no acute changes - Radiology Data Radiology results: report reviewed, image reviewed FINAL REPORT EXAM: XR CHEST 1V AP HISTORY: sob TECHNIQUE: AP portable view(s) of the chest obtained. PRIORS: 07/13/2017 FINDINGS: No mediastinal shift. Cardiomegaly. No pneumothorax. Blunting of both costophrenic angles. Ill-defined bibasilar opacities. No acute skeletal finding. IMPRESSION: Pulmonary interstitial edema with small right greater than left pleural effusions. Transcribed By: MB Dictated By: ARCADIO RAE MD Electronically Authenticated By: ARCADIO RAE MD Signed Date/Time: 12/20/17 07 - Medical Decision Making 27 yo male with history of end-stage renal disease and missed dialysis times one week. Patient here in the ED since last night. Potassium from last night' s labs show elevation of 6.5. Therapy for hyperkalemia was initiated upon placement in room. EKG was done and shows no hyperkalemic changes (peaked T's, bradycardia) Repeat potassium result 6.7. Patient denies shortness of breath, however chest x-ray shows bilateral pleural effusions and some pulmonary edema. O2 sats normal, patient in no respiratory distress. Spoke with patient's covered button maker Dr. Armenta who agrees to dialyze patient. Spoke with hospitalist Dr. Ortez for admission. States patient will be admitted to Dr. Houston, requests bridge orders be placed. - Differential Diagnosis hyperkalemia, pulmonary edema, resp distress Critical Care Time: Yes Critical care time in (mins) excluding proc time.: 35 Critical care attestation.: If time is entered above; I have spent that time in minutes in the direct care of this critically ill patient, excluding procedure time. Critical Care Time: 35 minutes ED Disposition Clinical Impression: Hyperkalemia, End stage renal disease on dialysis, Pleural effusion, Pulmonary edema Disposition: 09 OP ADMIT IP TO THIS HOSP Is pt being admited?: Yes Condition: Stable Time of Disposition: 08:07
--- NOTE | 2017-12-20 07:23 | XRay Report ---
FINAL REPORT EXAM: XR CHEST 1V AP HISTORY: sob TECHNIQUE: AP portable view(s) of the chest obtained. PRIORS: 07/13/2017 FINDINGS: No mediastinal shift. Cardiomegaly. No pneumothorax. Blunting of both costophrenic angles. Ill-defined bibasilar opacities. No acute skeletal finding. IMPRESSION: Pulmonary interstitial edema with small right greater than left pleural effusions.
[2017-12-20] MEDS ORDERED: CALCIUM CHLORIDE 1,000 MG in NACL 0.9% 100 ML IV ONE (08:00)
[2017-12-20] MEDS ORDERED: ZOFRAN IV ONE (08:08)
[2017-12-20] MEDS ORDERED: ZOFRAN ONE (08:08)
[2017-12-20] MEDS ORDERED: MORPHINE ONE (08:08)
[2017-12-20] MEDS ORDERED: MORPHINE IV ONE (08:08)
--- NOTE | 2017-12-20 08:31 | Consultation ---
History of Present Illness - Reason for Consult Consult date: 12/20/17 end stage renal disease Requesting physician: HOUSTON ASHBY - History of Present Illness 27-year-old male with history of CHF, end-stage renal disease. Patient states he has been one week since being dialyzed. The patient gives no real reason as to why he has missed dialysis. States he attempted to go to dialysis clinic on yesterday, but was told to come to the ER since he has missed 2 dialysis appointments. Patient normally on Tuesday- - Tuesday schedule. Patient denies shortness of breath. Reports increased swelling in bilateral lower legs. Patient found to be hyperkalemic and volume overloaded . Getting medical treatment for hyperkalemia in the ER Past History Past Medical History: dialysis, hypertension Past Surgical History: Other (H/O AVF creation and PD catheter ) Social history: no significant social history Family history: no significant family history Medications and Allergies Allergies Allergy/AdvReac Type Severity Reaction Status Date / Time heparin Allergy lowers Verified 02/19/17 13:22 platelets Home Medications Medication Instructions Recorded Confirmed Last Taken Type Dialyvite 800-Zinc 15 mg Tab 800 mg PO QDAY 02/15/17 10/28/17 10/27/17 History 800mg Carvedilol [Coreg] 12.5 mg PO BID tablet 03/20/17 10/28/17 10/28/17 Rx 12.5mg Sertraline [Zoloft] 100 mg PO QDAY tablet 03/20/17 10/28/17 10/27/17 Rx 100mg cloNIDine [Catapres] 0.3 mg PO TID tablet 03/20/17 10/28/17 10/28/17 Rx 0.3mg traZODone [Desyrel] 100 mg PO QHS tablet 03/20/17 10/28/17 10/27/17 Rx 100mg Esomeprazole Magnesium [Nexium] 40 mg PO DAILY 04/27/17 10/28/17 10/27/17 History 40mg ALBUTEROL Inhaler (OR & NICU) 2 puff IH QID PRN #1 inhalation 07/18/17 10/28/17 10/27/17 Rx [ProAir HFA Inhaler] 2 hydrALAZINE [Apresoline TAB] 100 mg PO TID #90 tab 07/18/17 10/28/1710/28/18 Rx 100mg NIFEdipine [Nifedipine ER] 90 mg PO DAILY 08/30/17 10/28/17 10/28/17 History 90mg Review of Systems All systems: negative (except as noted above) Exam - Vital Signs Vital signs: Vital Signs Temp Pulse Resp BP Pulse Ox 98.8 F 79 18 205/109 96 12/19/17 22:27 12/19/17 22:27 12/19/17 22:27 12/19/17 22:27 12/19/17 22:27 - General Appearance General appearance: well-developed, well-nourished, appears stated age EENT: PERRL, mucous membranes moist Neck: Present: neck supple, trachea midline. Absent: JVD/HJR, Masses Respiratory: Decreased Breath Sounds (at the bases ) Heart: regular, normal heart rate, S1S2, no murmurs Gastrointestinal: Present: normoactive bowel sounds, other (ascites present ) Integumentary: other (2+ edema . AVF left upper extremity . God bruit and thrill ) Results - Lab Results 12/19/17 22:58 12/20/17 06:50 Most recent lab results Calcium 8.3 mg/dL (8.4-10.2) L 12/19/17 22:58 Assessment and Plan Impression: * ESRD * Hyperkalemia * CHF * Accelerated hypertension * Non-compliance * Ascites . Probably secondary to under-dialysis * Anemia secondary to ESRD * Abdominal pain * Uremia Recommendations: * Agree with medical management for hyperkalemia * Shall arrange for dialysis [facility] for treatment of hyperkalemia and fluid removal. * He will likely need additional treatment tomorrow * Epogen after better BP control * Patient advised regarding complaince with dialysis and meds * Adjust diet and meds for ESRD state * No IV, BP or venipuncture in access arm * Thanks, Shall follow with you
[2017-12-20] MEDS ORDERED: NACL 0.9% 100 ML IV PRN (08:33)
[2017-12-20] MEDS ORDERED: PROAIR IH PRN (09:46)
--- NOTE | 2017-12-20 09:46 | History and Physical Report ---
History of Present Illness Chief complaint: LE swelling, I missed HD History of present illness: 27-year-old male with history of CHF, end-stage renal disease. Patient admits to missing HD for one week, he has not been compliant with his meds. -He states that he went to HD clinic and they sent him to the ER - He report bipedal edema, denies sob or CP Past Medical History: anemia, ESRD, GERD, hypertension, other (Recurrent ascites ) Past Surgical History: Other (AV access creation; PD catheter insertion/removal ; Operative laparoscopy, drainage of loculated ascites) Social history: no significant social history Family history: no significant family history Past History Past Medical History: dialysis, hypertension Past Surgical History: Other (H/O AVF creation and PD catheter ) Social history: no significant social history Family history: no significant family history Medications and Allergies Allergies Allergy/AdvReac Type Severity Reaction Status Date / Time heparin Allergy lowers Verified 02/19/17 13:22 platelets Home Medications Medication Instructions Recorded Confirmed Last Taken Type Dialyvite 800-Zinc 15 mg Tab 800 mg PO QDAY 02/15/17 10/28/17 10/27/17 History 800mg Carvedilol [Coreg] 12.5 mg PO BID tablet 03/20/17 10/28/17 10/28/17 Rx 12.5mg Sertraline [Zoloft] 100 mg PO QDAY tablet 03/20/17 10/28/17 10/27/17 Rx 100mg cloNIDine [Catapres] 0.3 mg PO TID tablet 03/20/17 10/28/17 10/28/17 Rx 0.3mg traZODone [Desyrel] 100 mg PO QHS tablet 03/20/17 10/28/17 10/27/17 Rx 100mg Esomeprazole Magnesium [Nexium] 40 mg PO DAILY 04/27/17 10/28/17 10/27/17 History 40mg ALBUTEROL Inhaler (OR & NICU) 2 puff IH QID PRN #1 inhalation 07/18/17 10/28/17 10/27/17 Rx [ProAir HFA Inhaler] 2 hydrALAZINE [Apresoline TAB] 100 mg PO TID #90 tab 07/18/17 10/28/17 10/28/17 Rx 100mg NIFEdipine [Nifedipine ER] 90 mg PO DAILY 08/30/17 10/28/17 10/28/17 History 90mg Active Meds: Active Medications Sodium Chloride (Nacl 0.9%) 100 mls @ 999 mls/hr IV APRIL PRN PRN Reason: Hypotension Review of Systems All systems: negative Constitutional: no weight loss Ears, nose, mouth and throat: no ear pain Cardiovascular: high blood pressure, leg edema, no chest pain Respiratory: no cough Gastrointestinal: no abdominal pain Genitourinary Male: no dysuria Rectal: no pain Musculoskeletal: no neck stiffness Integumentary: no rash Neurological: no head injury Psychiatric: no anxiety Endocrine: no cold intolerance Hematologic/Lymphatic: no easy bruising Allergic/Immunologic: no urticaria Exam - Constitutional Vitals: Temp Pulse Resp BP Pulse Ox 97.7 F 70 12 200/115 95 12/20/17 06:12 12/20/17 08:30 12/20/17 08:30 12/20/17 08:30 12/20/17 08:30 General appearance: Present: no acute distress, well-nourished - EENT Eyes: Present: PERRL ENT: hearing intact, clear oral mucosa - Neck Neck: Present: supple, normal ROM - Respiratory Respiratory effort: normal Respiratory: bilateral: CTA - Cardiovascular Heart Sounds: Present: S1 & S2. Absent: rub, click - Extremities Extremities: pulses symmetrical Extremity abnormal: edema Peripheral Pulses: within normal limits - Abdominal General gastrointestinal: Present: soft, non-tender, non-distended, normal bowel sounds Male genitourinary: Present: normal - Integumentary Integumentary: Present: clear, warm, dry - Musculoskeletal Musculoskeletal: gait normal, strength equal bilaterally - Psychiatric Psychiatric: appropriate mood/affect, intact judgment & insight - Neurologic Neurologic: CNII-XII intact, moves all extremities Results - Labs CBC & Chem 7: 12/19/17 22:58 12/20/17 06:50 Labs: Laboratory Last Values WBC 5.5 K/mm3 (4.5-11.0) 12/19/17 22:58 RBC 2.87 M/mm3 (3.65-5.03) L 12/19/17 22:58 Hgb 8.4 gm/dl (11.8-15.2) L 12/19/17 22:58 Hct 24.6 % (35.5-45.6) L 12/19/17 22:58 MCV 86 fl (84-94) 12/19/17 22:58 MCH 29 pg (28-32) 12/19/17 22:58 MCHC 34 % (32-34) 12/19/17 22:58 RDW 19.6 % (13.2-15.2) H 12/19/17 22:58 Plt Count 92 K/mm3 (140-440) L 12/19/17 22:58 Sodium 138 mmol/L (137-145) 12/19/17 22:58 Potassium 6.7 mmol/L (3.6-5.0) H* 12/20/17 06:50 Chloride 91.9 mmol/L (98-107) L 12/19/17 22:58 Carbon Dioxide 25 mmol/L (22-30) 12/19/17 22:58 Anion Gap 28 mmol/L 12/19/17 22:58 BUN 89 mg/dL (9-20) H 12/19/17 22:58 Creatinine 12.4 mg/dL (0.8-1.5) H 12/19/17 22:58 Estimated GFR 5 ml/min 12/19/17 22:58 BUN/Creatinine Ratio 7 % 12/19/17 22:58 Glucose 77 mg/dL (75-100) 12/19/17 22:58 Calcium 8.3 mg/dL (8.4-10.2) L 12/19/17 22:58 Total Bilirubin 0.50 mg/dL (0.1-1.2) 12/19/17 22:58 AST 23 units/L (5-40) 12/19/17 22:58 ALT 5 units/L (7-56) L 12/19/17 22:58 Alkaline Phosphatase 92 units/L (35-129) 12/19/17 22:58 Total Protein 8.0 g/dL (6.3-8.2) 12/19/17 22:58 Albumin 3.9 g/dL (3.9-5) 12/19/17 22:58 Albumin/Globulin Ratio 1.0 % 12/19/17 22:58 Assessment and Plan Assessment and plan: 27M non complaint with HD, has esrd ESRD/hyperkalemia, fluid overload -nephrology consulted for urgent HD htn urgency -optimize meds, if does not respond to IV pushes, will put on cardene drip Acute on chronic systolic CHF EF 30%, cardiology consult Fluid removal via HD, optimize meds AOCD monitor Hg, stable Non adherence with meds and HD patient was counseled extensively Dvt ppx heparin
[2017-12-20] MEDS ORDERED: SODIUM CHLORIDE FLUSH SYRINGE 10 ML IV PRN (09:48)
[2017-12-20] MEDS ORDERED: ZOFRAN IV PRN (09:48)
[2017-12-20] MEDS ORDERED: TYLENOL PO PRN (09:48)
[2017-12-20] MEDS ORDERED: NON-FORMULARY (Nifedipine [Nifedipine Er] 90 MG) PO SCH (10:00)
[2017-12-20] MEDS ORDERED: DIALYVITE ZINC PO SCH (10:00)
[2017-12-20] MEDS ORDERED: NON-FORMULARY (Esomeprazole Magnesium [Nexium] 40 MG) PO SCH (10:00)
[2017-12-20] MEDS ORDERED: PROVENTIL IH PRN (10:28)
[2017-12-20] MEDS ORDERED: NACL 0.9 (PRIMING MACHINE ONLY DIALYSIS) MC ONE (12:00)
[2017-12-20] MEDS: PERCOCET 5/325 PO PRN ×2 (12:01→20:11)
[2017-12-20] MEDS: APRESOLINE IV PRN ×2 (12:08→14:35)
[2017-12-20] MEDS ORDERED: HEPARIN SUB-Q SCH (14:00)
--- NOTE | 2017-12-20 14:33 | Consultation ---
History of Present Illness Consult date: 12/20/17 Consult reason: congestive heart failure History of present illness: Mr Tuesday is a 27 year old male with end stage renal disease and is on dialysis. Patient has a history of dilated cardiomyopathy documented by cardiac cath 5 months ago that showed no significant coronary artery disease but a decreased left ventricular ejection fraction 15-20%. Patient also has chronic anemia, hypertension and chronic ascities with intermittent paracentesis.. Patient presents to this hospital with complaints of shortness of breath, volume overload secondary to missed dialysis sessions. Cardiac consultation was requested. Patient was seen in dialysis and appears comfortable. He reports feeling better after being dialyzed. He denies chest pain and there is no palpitations. His ECG shows a normal sinus rhythm. Past History Past Medical History: dialysis, heart failure, hypertension Family history: no significant family history Medications and Allergies Allergies Allergy/AdvReac Type Severity Reaction Status Date / Time heparin Allergy lowers Verified 02/19/17 13:22 platelets Home Medications Medication Instructions Recorded Confirmed Last Taken Type Dialyvite 800-Zinc 15 mg Tab 800 mg PO QDAY 02/15/17 10/28/17 10/27/17 History 800mg Carvedilol [Coreg] 12.5 mg PO BID tablet 03/20/17 10/28/17 10/28/17 Rx 12.5mg Sertraline [Zoloft] 100 mg PO QDAY tablet 03/20/17 10/28/17 10/27/17 Rx 100mg cloNIDine [Catapres] 0.3 mg PO TID tablet 03/20/17 10/28/17 10/28/17 Rx 0.3mg traZODone [Desyrel] 100 mg PO QHS tablet 03/20/17 10/28/17 10/27/17 Rx 100mg Esomeprazole Magnesium [Nexium] 40 mg PO DAILY 04/27/17 10/28/17 10/27/17 History 40mg ALBUTEROL Inhaler (OR & NICU) 2 puff IH QID PRN #1 inhalation 07/18/17 10/28/17 10/27/17 Rx [ProAir HFA Inhaler] 2 hydrALAZINE [Apresoline TAB] 100 mg PO TID #90 tab 07/18/17 10/28/17 10/28/17 Rx 100mg NIFEdipine [Nifedipine ER] 90 mg PO DAILY 0610/28/17 10/28/17 History 90mg Active Meds: Active Medications Acetaminophen (Tylenol) 650 mg PO Q4H PRN PRN Reason: Pain MILD(1-3)/Fever >100.5/JENKINS Albuterol (Proair) 2 puff IH QID PRN PRN Reason: Shortness Of Breath Albuterol (Proventil) 2.5 mg IH Q4HRT PRN PRN Reason: Shortness Of Breath Carvedilol (Coreg) 12.5 mg PO BID [facility] Clonidine HCl (Catapres) 0.3 mg PO TID CHONG Hydralazine HCl (Apresoline) 100 mg PO TID CHONG Hydralazine HCl (Apresoline) 20 mg IV Q4HR PRN PRN Reason: BP >160/100 Last Admin: 12/20/17 12:08 Dose: 20 mg Sodium Chloride (Nacl 0.9%) 100 mls @ 999 mls/hr IV APRIL PRN PRN Reason: Hypotension Multivit/Ca Carb/B Cmplx/FA/Prenat (Renal Caps) 1 cap PO QDAY [facility] Nifedipine (Procardia Xl) 90 mg PO QDAY [facility] Ondansetron HCl (Zofran) 4 mg IV Q8H PRN PRN Reason: Nausea And Vomiting Oxycodone/Acetaminophen (Percocet 5/325) 1 tab PO Q6H PRN PRN Reason: Pain, Moderate (4-6) Last Admin: 12/20/17 12:01 Dose: 1 tab Pantoprazole Sodium (Protonix) 40 mg PO DAILY CHONG Sertraline HCl (Zoloft) 100 mg PO QDAY [facility] Sodium Chloride (Sodium Chloride Flush Syringe 10 Ml) 10 ml IV BID CHONG Sodium Chloride (Sodium Chloride Flush Syringe 10 Ml) 10 ml IV PRN PRN PRN Reason: LINE FLUSH Trazodone HCl (Desyrel) 100 mg PO QHS [facility] Physical Examination Vital Signs Temp Pulse Resp BP Pulse Ox 98.8 F 79 18 205/109 96 12/19/17 22:27 12/19/17 22:27 12/19/17 22:27 12/19/17 22:27 12/19/17 22:27 General appearance: no acute distress HEENT: Positive: PERRL Cardiac: Positive: Reg Rate and Rhythm Lungs: Positive: Decreased Breath Sounds Neuro: Positive: Grossly Intact Extremities: Absent: edema Results 12/19/17 22:58 12/20/17 06:50 Cardiac Enzymes 12/19/17 Range/Units 22:58 AST 23 (5-40) units/L CBC 12/19/17 Range/Units 22:58 WBC 5.5 (4.5-11.0) K/mm3 RBC 2.87 L (3.65-5.03) M/mm3 Hgb 8.4 L (11.8-15.2) gm/dl Hct 24.6 L (35.5-45.6) % Plt Count 92 L (140-440) K/mm3 Comprehensive Metabolic Panel 12/19/17 12/20/17 Range/Units 22:58 06:50 Sodium 138 (137-145) mmol/L Potassium 6.5 H* 6.7 H* (3.6-5.0) mmol/L Chloride 91.9 L (98-107) mmol/L Carbon Dioxide 25 (22-30) mmol/L BUN 89 H (9-20) mg/dL Creatinine 12.4 H (0.8-1.5) mg/dL Glucose 77 (75-100) mg/dL Calcium 8.3 L (8.4-10.2) mg/dL AST 23 (5-40) units/L ALT 5 L (7-56) units/L Alkaline Phosphatase 92 (35-129) units/L Total Protein 8.0 (6.3-8.2) g/dL Albumin 3.9 (3.9-5) g/dL Assessment and Plan Volume overload s/t to missed dialysis Acute systolic heart failure ESRD on dialysis Hypertension Non-ischemic cardiomyopathy [facility] 07/2017: no significant coronary artery disease but a decreased left ventricular ejection fraction 15-20%. Recommendations: Medical therapy to include afterload reducing agents, beta blockers. Salt/fluid restricted diet. Dialysis for fluid management.
[2017-12-20] MEDS: Renal Caps PO SCH (16:40)
[2017-12-20] MEDS: APRESOLINE PO SCH ×2 (16:40→20:11)
[2017-12-20] MEDS: CATAPRES PO SCH ×2 (16:40→20:10)
[2017-12-20] MEDS: SODIUM CHLORIDE FLUSH SYRINGE 10 ML IV SCH ×2 (16:41→22:18)
[2017-12-20] MEDS: ZOLOFT PO SCH (16:41)
[2017-12-20] MEDS: COREG PO SCH ×2 (16:41→22:18)
[2017-12-20] MEDS ORDERED: DESYREL PO SCH (22:00)
[2017-12-21] MEDS: PERCOCET 5/325 PO PRN ×2 (05:38→11:10)
[2017-12-21 05:49] LABS: Basophils # (Auto) 0.1 K/mm3 (0.0-0.1); Basophils % (Auto) 1.3 % (0.0-1.8); Eosinophils # (Auto) 0.1 K/mm3 (0.0-0.4); Eosinophils % (Auto) 2.3 % (0.0-4.3); Hematocrit 30.7 % (35.5-45.6); Hemoglobin 9.9 gm/dl (11.8-15.2); Lymphocytes # (Auto) 1.6 K/mm3 (1.2-5.4); Lymphocytes % (Auto) 32.9 % (13.4-35.0); Mean Corpuscular HGB Conc 32 % (32-34); Mean Corpuscular Hemoglobin 28 pg (28-32); Mean Corpuscular Volume 88 fl (84-94); Monocytes # (Auto) 0.4 K/mm3 (0.0-0.8); Monocytes % (Auto) 8.9 % (0.0-7.3); Platelet Count 80 K/mm3 (140-440); Red Blood Count 3.48 M/mm3 (3.65-5.03); Red Cell Distribution Width 19.1 % (13.2-15.2)
[2017-12-21 06:10] LABS: Calcium 8.8 mg/dL (8.4-10.2)
[2017-12-21] MEDS ORDERED: PROTONIX PO SCH (10:00)
[2017-12-21] MEDS ORDERED: PROCARDIA XL PO SCH (10:00)
--- NOTE | 2017-12-21 10:28 | Progress Note ---
Assessment and Plan Volume overload s/t to missed dialysis Acute systolic heart failure ESRD on dialysis Hypertension Non-ischemic cardiomyopathy [facility] 07/2017: no significant coronary artery disease but a decreased left ventricular ejection fraction 15-20%. Recommendations: Continue medical therapy for his non-ischemic cardiomyopathy to include afterload reducing agents, beta blockers. Salt/fluid restricted diet. Dialysis for fluid management. Subjective Date of service: 12/21/17 Interval history: Patient is sitting up in bed. Reports he is feeling better. Objective Vital Signs Temp Pulse Pulse Resp Resp BP Pulse Ox 12/21/17 08:22 97.7 F 68 18 184/91 95 12/21/17 06:38 20 12/21/17 05:38 18 12/21/17 04:41 97.8 F 75 18 150/86 84 12/21/17 00:14 97.5 F L 81 18 142/76 90 12/20/17 22:20 71 18 93 12/20/17 22:18 76 173/99 12/20/17 22:17 76 173/99 93 12/20/17 21:11 18 12/20/17 20:16 18 12/20/17 20:11 18 12/20/17 20:10 71 173/93 12/20/17 19:45 71 90 12/20/17 19:44 97.7 F 70 20 173/93 88 12/20/17 19:26 71 12/20/17 16:57 75 18 183/96 94 12/20/17 14:35 207/105 12/20/17 14:29 72 20 207/105 96 12/20/17 13:45 97.7 F 67 24 200/97 12/20/17 13:30 66 191/106 12/20/17 13:15 67 179/100 12/20/17 13:00 64 175/89 12/20/17 12:45 60 172/99 12/20/17 12:30 63 196/106 12/20/17 12:15 68 198/109 12/20/17 12:08 72 198/109 12/20/17 12:01 20 12/20/17 12:00 68 203/101 12/20/17 11:45 68 195/98 12/20/17 11:30 69 204/112 12/20/17 11:15 68 201/104 12/20/17 11:00 68 195/104 12/20/17 10:45 75 192/113 12/20/17 10:30 68 189/107 - Physical Examination General: No Apparent Distress HEENT: Positive: PERRL Neck: Positive: trachea midline. Negative: Masses Cardiac: Positive: Reg Rate and Rhythm Lungs: Positive: Decreased Breath Sounds Neuro: Positive: Grossly Intact Extremities: Absent: edema - Labs and Meds CBC 12/21/17 Range/Units 05:34 WBC 4.8 (4.5-11.0) K/mm3 RBC 3.48 L (3.65-5.03) M/mm3 Hgb 9.9 L (11.8-15.2) gm/dl Hct 30.7 L D (35.5-45.6) % Plt Count 80 L (140-440) K/mm3 Lymph # 1.6 (1.2-5.4) K/mm3 [place] # 0.4 (0.0-0.8) K/mm3 Eos # 0.1 (0.0-0.4) K/mm3 Baso # 0.1 (0.0-0.1) K/mm3 Comprehensive Metabolic Panel 12/21/17 Range/Units 05:34 Sodium 139 (137-145) mmol/L Potassium 5.5 H (3.6-5.0) mmol/L Chloride 93.7 L (98-107) mmol/L Carbon Dioxide 26 (22-30) mmol/L BUN 51 H (9-20) mg/dL Creatinine 8.3 H (0.8-1.5) mg/dL Glucose 68 L (75-100) mg/dL Calcium 8.8 (8.4-10.2) mg/dL
--- NOTE | 2017-12-21 10:46 | Progress Note ---
Assessment and Plan Impression: * ESRD * Hyperkalemia * CHF * Accelerated hypertension * Non-compliance * Ascites . Probably secondary to under-dialysis * Anemia secondary to ESRD * Abdominal pain * Uremia Recommendations: * Agree with medical management for hyperkalemia * continue dialysis today for treatment of hyperkalemia and fluid removal. * continue TTHSAT tommorrow as well * Epogen after better BP control * Patient advised regarding complaince with dialysis and meds * Adjust diet and meds for ESRD state * No IV, BP or venipuncture in access arm * can dc home after hd today and follow up in outpt clinic tommorrow Subjective Date of service: 12/21/17 Principal diagnosis: esrd Interval history: resting in bed today Objective - Exam Narrative Exam: General appearance: well-developed, well-nourished, appears stated age EENT: PERRL, mucous membranes moist Neck: Present: neck supple, trachea midline. Absent: JVD/HJR, Masses Respiratory: Decreased Breath Sounds (at the bases ) Heart: regular, normal heart rate, S1S2, no murmurs Gastrointestinal: Present: normoactive bowel sounds, other (ascites present ) Integumentary: other (2+ edema . AVF left upper extremity . God bruit and thrill ) - Vital Signs Vital signs: Vital Signs - 12hr 12/21/17 12/21/17 12/21/17 00:14 04:41 05:38 Temperature 97.5 F L 97.8 F Pulse Rate 81 75 Respiratory 18 18 18 Rate Blood Pressure 142/76 150/86 O2 Sat by Pulse 90 84 Oximetry 12/21/17 12/21/17 06:38 08:22 Temperature 97.7 F Pulse Rate 68 Respiratory 20 18 Rate Blood Pressure 184/91 O2 Sat by Pulse 95 Oximetry - Lab 12/21/17 05:34 12/21/17 05:34 Most recent lab results Calcium 8.8 mg/dL (8.4-10.2) 12/21/17 05:34
[2017-12-21] MEDS: COREG PO SCH (11:00)
[2017-12-21] MEDS: Renal Caps PO SCH (11:00)
[2017-12-21] MEDS: ZOLOFT PO SCH (11:01)
[2017-12-21] MEDS: SODIUM CHLORIDE FLUSH SYRINGE 10 ML IV SCH (11:01)
[2017-12-21] MEDS: APRESOLINE PO SCH ×2 (11:10→14:14)
[2017-12-21] MEDS: CATAPRES PO SCH ×2 (11:10→14:14)
--- NOTE | 2017-12-21 12:17 | Discharge Summary ---
Providers - Providers Date of Admission: 12/20/17 08:16 Attending physician: SRINIVAS CAI MD 12/20/17 08:00 Consult to Physician [CONS] Stat Comment: Consulting Provider: JOHN SMITH Physician Instructions: Reason For Exam: hyperkalemia 12/20/17 10:33 Consult to Physician [CONS] Routine Comment: Consulting Provider: CARINA SCHROEDER Physician Instructions: Reason For Exam: systolic CHF 12/21/17 11:12 Consult to Wound/ET Nurse [CONS] Routine Reason For Exam: wound eval Primary care physician: BOOM STICK MAN Hospitalization Condition: Stable Hospital course: 27M non complaint with HD, has esrd. the patient reported that he missed dialysis for over 1 week. He states that he just didn't feel like going, and he knows he needs to do better. He was complaining of bipedal edema, he tried to go get dialysis, but was sent to the hospital directly from the dialysis clinic. Upon arriving in the hospital he was noted to have fluid overload, and Marked hyperkalemia. The patient received several sessions of hemodialysis, he improved. He was counseled on improved compliance with hemodialysis, he was warned of risk of sudden cardiac arrest and from hyperkalemia if left untreated. He verbalized understanding and stated that he would try to do better. He was also counseled about weaning off narcotics, as he takes Percocet chronically. He's [facility] drug monitoring profile was reviewed. And he was only given a few days of Percocet at time of discharge Diagnosis ESRD/hyperkalemia, fluid overload Chronic pain syndrome Opioid dependence htn urgency Acute on chronic systolic CHF AOCD Non adherence with meds and HD Disposition: DC-01 TO HOME OR SELFCARE Time spent for discharge: 33 mins Core Measure Documentation - Palliative Care Palliative Care/ Comfort Measures: Not Applicable - Core Measures Any of the following diagnoses?: none Exam - Constitutional Vitals: Temp Pulse Resp BP Pulse Ox 97.7 F 68 18 184/91 95 12/21/17 08:22 12/21/17 08:22 12/21/17 08:22 12/21/17 08:22 12/21/17 08:22 General appearance: Present: no acute distress, well-nourished - EENT Eyes: Present: PERRL ENT: hearing intact, clear oral mucosa - Neck Neck: Present: supple, normal ROM - Respiratory Respiratory effort: normal Respiratory: bilateral: CTA - Cardiovascular Heart Sounds: Present: S1 & S2. Absent: rub, click - Extremities Extremities: pulses symmetrical, No edema Peripheral Pulses: within normal limits - Abdominal General gastrointestinal: Present: soft, non-tender, non-distended, normal bowel sounds Male genitourinary: Present: normal - Integumentary Integumentary: Present: clear, warm, dry - Musculoskeletal Musculoskeletal: gait normal, strength equal bilaterally - Psychiatric Psychiatric: appropriate mood/affect, intact judgment & insight - Neurologic Neurologic: CNII-XII intact, moves all extremities Plan Follow up with: PRIMARY CARE, [Primary Care Provider] - 3-5 Days Forms: Discharge Signature Page Prescriptions: traZODone [Desyrel] 100 mg PO QHS #30 tablet ALBUTEROL Inhaler (OR & NICU) [ProAir HFA Inhaler] 2 puff IH QID PRN #1 inhalation PRN Reason: Shortness Of Breath Carvedilol [Coreg] 12.5 mg PO BID #60 tablet cloNIDine [Catapres] 0.3 mg PO TID 30 Days tablet Esomeprazole Magnesium [Nexium] 40 mg PO DAILY #30 capsule. hydrALAZINE [Apresoline TAB] 100 mg PO TID #90 tab oxyCODONE /ACETAMINOPHEN [Percocet 5/325 mg] 1 tab PO Q6H PRN #14 tablet PRN Reason: Pain, Moderate (4-6) Sertraline [Zoloft] 100 mg PO QDAY #30 tablet Vit B Complx C/Folic Acid/Zinc [Dialyvite 800-Zinc 15 mg Tab] 0.8 mg PO DAILY # 30 tablet
[2017-12-21 17:50] VITALS: BP 133/66
== END 2017-12-21 18:50 | disposition home or self-care (01) | DRG 291 ==
LOC: ED 22:20 → 4A 12-20 08:16
PROVIDERS: ADMIT Internal Medicine; ATTEND Internal Medicine
PROC: 5A1D70Z Performance of Urinary Filtration, Intermittent, Less than 6 Hours Per Day (ICD-10-PCS; principal; 2017-12-20)
PROC: 5A1D70Z Performance of Urinary Filtration, Intermittent, Less than 6 Hours Per Day (ICD-10-PCS; 2017-12-21)
DX: I13.2 Hypertensive heart and chronic kidney disease with heart failure and with stage 5 chronic kidney disease, or end stage renal disease (principal); I50.23 Acute on chronic systolic (congestive) heart failure; N18.6 End stage renal disease; R18.8 Other ascites; F19.20 Other psychoactive substance dependence, uncomplicated; I42.9 Cardiomyopathy, unspecified; D63.1 Anemia in chronic kidney disease; E87.5 Hyperkalemia; I16.0 Hypertensive urgency; K21.9 Gastro-esophageal reflux disease without esophagitis; G89.4 Chronic pain syndrome; Z96.89 Presence of other specified functional implants; Z99.2 Dependence on renal dialysis; Z88.8 Allergy status to other drugs, medicaments and biological substances; Z79.51 Long term (current) use of inhaled steroids; Z91.15 Patient's noncompliance with renal dialysis; Z90.89 Acquired absence of other organs; Z71.51 Drug abuse counseling and surveillance of drug abuser
CPT/HCPCS: 36415; 71045; 80048; 80053; 84132; 85025; 85027; 93005; 93010; 96374; 96375; J0360; J1815; J2270; J2405; J7030

== ENCOUNTER 2018-03-25 12:32 | Inpatient (IN) | payer MEDICARE ==
--- NOTE | 2018-03-25 13:10 | Emergency Department Report ---
HPI - General Chief Complaint: Dyspnea/Respdistress Time Seen by Provider: 03/25/18 12:49 - HPI HPI: Room 5 The patient is a 28-year-old male presenting with chief complaint shortness of breath. The patient states for the past couple of hours shortness of breath after standing. Patient denies chest pain but admits to a dry cough. Patient denies fever. Patient states he has chronic nausea. The patient states he was recently admitted to the hospital for the same symptoms recently and it was attributed to congestive heart failure Location: Lungs Duration: Hours Quality: Shortness of breath Severity: Moderate Modifying factors: [see above] Context: [see above] Mode of transportation: [not driving] ED Past Medical Hx - Past Medical History Hx Hypertension: Yes Hx Congestive Heart Failure: Yes (4LPM at home) Hx GERD: Yes Hx Renal Disease: Yes Hx Arthritis: Yes (SPINE) Additional medical history: Hidradenitis, EJF 40%, enlarged heart - Surgical History Additional Surgical History: PD CATHETER - AND REMOVAL. AV FISTULA. LYMPH NODES REMOVED LEFT GROIN. TONSILLECTOMY. Patient does have a history of peritonitis with previous PD - Family History Family history: no significant - Social History Smoking Status: Current Every Day Smoker (1/3 pack per day) Substance Use Type: None (denies illicit drug use) - Medications Home Medications: Home Medications Medication Instructions Recorded Confirmed Last Taken Type Esomeprazole Magnesium [Nexium] 40 mg PO DAILY #30 capsule. 12/21/17 03/10/18 03/10/18 Rx Vit B Complx C/Folic Acid/Zinc 0.8 mg PO DAILY #30 tablet 12/21/17 03/10/18 03/10/18 Rx [Dialyvite 800-Zinc 15 mg Tab] cloNIDine [Catapres] 0.3 mg PO TID 30 Days tablet 12/21/17 03/10/18 03/10/18 Rx hydrALAZINE [Apresoline TAB] 100 mg PO TID #90 tab 12/21/17 03/10/18 03/10/18 Rx traZODone [Desyrel] 100 mg PO QHS #30 tablet 12/21/17 03/10/18 03/09/18 Rx ALPRAZolam [Xanax] 1 mg PO HS PRN 12/29/17 03/10/18 03/09/18 History Carvedilol [Coreg] 25 mg PO BID 12/29/17 03/10/18 03/10/18 History Cholecalciferol (Vitamin D3) 2,000 unit PO DAILY 12/29/17 03/10/18 03/10/18 History [Vitamin D3] Ondansetron [Zofran TAB] 4 mg PO QID PRN 12/29/17 03/10/18 03/10/18 History Aspirin EC [Aspirin Enteric Coated 81 mg PO QDAY #30 tablet. 03/04/18 03/10/18 03/10/18 Rx TAB] AtorvaSTATin [Lipitor] 40 mg PO QHS #30 tab 03/04/18 03/10/18 03/10/18 Rx Clindamycin [Clindamycin CAP] 300 mg PO Q8H #21 cap 03/15/18 Unknown Rx ED Review of Systems ROS: Stated complaint: DIFFICULTY BREATHING Other details as noted in HPI Constitutional: denies: fever Eyes: denies: eye pain ENT: denies: throat pain Respiratory: cough, shortness of breath Cardiovascular: denies: chest pain Endocrine: no symptoms reported Gastrointestinal: nausea Genitourinary: denies: testicular pain Musculoskeletal: back pain Neurological: denies: headache Physical Exam - Physical Exam Physical Exam: GENERAL: The patient is well-developed well-nourished male sitting on stretcher not appearing to be in acute distress. [] HEENT: Normocephalic. Atraumatic. Extraocular motions are intact. Patient has moist mucous membranes. NECK: Supple. Trachea midline CHEST/LUNGS: Clear to auscultation. No crackles auscultated. There is no respiratory distress noted. HEART/CARDIOVASCULAR: Regular. There is no tachycardia. There is no gallop rub or murmur. ABDOMEN: Abdomen is soft, nontender. Patient has normal bowel sounds. There is no abdominal distention. SKIN: There is no rash. There is no diaphoresis. NEURO: The patient is awake, alert, and oriented. The patient is cooperative. The patient has normal speech MUSCULOSKELETAL: There is no evidence of acute injury. ED Course - Consultations Consultation #1: 03/25/18 15:02 Nephrology paged 03/25/18 15:[address] Sun- will arrange hemodialysis ED Medical Decision Making - Lab Data Result diagrams: 03/25/18 13:01 03/25/18 13:01 Laboratory Tests 03/25/18 03/25/18 03/25/18 13:01 13:01 13:01 WBC 6.6 RBC 3.15 L Hgb 9.1 L Hct 28.9 L MCV 92 MCH 29 MCHC 31 L RDW 19.3 H Plt Count 154 Lymph % (Auto) 17.8 [place] % (Auto) 7.3 Eos % (Auto) 3.9 Baso % (Auto) 1.6 Lymph # 1.2 [place] # 0.5 Eos # 0.3 Baso # 0.1 Seg Neutrophils % 69.4 Seg Neutrophils # 4.6 Sodium 141 Potassium 5.4 H Chloride 100.4 Carbon Dioxide 24 Anion Gap 22 BUN 80 H Creatinine 8.5 H Estimated GFR 7 BUN/Creatinine Ratio 9 Glucose 122 H Calcium 8.1 L Troponin T 0.377 H* Triglycerides 53 Cholesterol 96 LDL Cholesterol Direct 45 L HDL Cholesterol 44 Cholesterol/HDL Ratio 2.18 - EKG Data -: EKG Interpreted by Me EKG shows normal: sinus rhythm Rate: bradycardia (58 bpm) - EKG Data When compared to previous EKG there are: previous EKG unavailable Interpretation: other (no ischemic changes seen) - Radiology Data Radiology results: image reviewed (chest x-ray) interpreted by me: Chest [id number], bilateral pleural effusions, CHF. No pneumothorax - Differential Diagnosis volume overload, pneumonia, CHF Critical care attestation.: If time is entered above; I have spent that time in minutes in the direct care of this critically ill patient, excluding procedure time. ED Disposition Clinical Impression: Pleural effusion, Shortness of breath, Hyperkalemia, End stage renal disease Disposition: OP ADMIT IP TO THIS HOSP Is pt being admited?: Yes Does the pt Need Aspirin: Yes Condition: Fair Referrals: PRIMARY CARE,MD [Primary Care Provider] - 3-5 Days Time of Disposition: 15:03 (hospitalist paged (Dr Stuart))
[2018-03-25] MEDS ORDERED: NORCO 5/325 PO ONE (13:16)
[2018-03-25 13:29] LABS: Calcium 8.1 mg/dL (8.4-10.2)
[2018-03-25 13:34] LABS: Basophils # (Auto) 0.1 K/mm3 (0.0-0.1); Basophils % (Auto) 1.6 % (0.0-1.8); Eosinophils # (Auto) 0.3 K/mm3 (0.0-0.4); Eosinophils % (Auto) 3.9 % (0.0-4.3); Hematocrit 28.9 % (35.5-45.6); Hemoglobin 9.1 gm/dl (11.8-15.2); Lymphocytes # (Auto) 1.2 K/mm3 (1.2-5.4); Lymphocytes % (Auto) 17.8 % (13.4-35.0); Mean Corpuscular HGB Conc 31 % (32-34); Mean Corpuscular Volume 92 fl (84-94); Monocytes # (Auto) 0.5 K/mm3 (0.0-0.8); Monocytes % (Auto) 7.3 % (0.0-7.3); Platelet Count 154 K/mm3 (140-440); Red Blood Count 3.15 M/mm3 (3.65-5.03); Red Cell Distribution Width 19.3 % (13.2-15.2)
[2018-03-25 14:17] LABS: Chol/HDL Ratio 2.18 %
[2018-03-25] MEDS ORDERED: TYLENOL PO PRN (15:35)
[2018-03-25] MEDS ORDERED: ZOFRAN IV PRN ×2 (15:35→15:38)
[2018-03-25] MEDS ORDERED: SODIUM CHLORIDE FLUSH SYRINGE 10 ML IV PRN ×2 (15:35→15:38)
--- NOTE | 2018-03-25 15:35 | History and Physical Report ---
History of Present Illness Chief complaint: I cant breathe, I need dialysis History of present illness: 28 YO Male with ESRD on HD (T,R,Sa), HTN, GERD, Systolic CHF(EF 40%), Nicotine Dependence, Noncompliance, Chronic Respiratory Failure on 5-6L Home Oxygen via [place] presents to ED for evaluation. Pt states that he has experienced shortness of breath over the past 2 days with worsening symptoms over the past 1 day. Pt acknowledges nonproductive cough. Pt states that he now has decreased exercise tolerance, dypsnea at rest as well as with exertion. EMS notified, and patient found to be in distress. Pt was transported to [facility] for further care and evaluation. Pt seen and evaluated in ED and found to have ESRD as well as Acute on Chronic Hypoxemic Respiratory Failure. Pt denies fever, chills, Palpitations, recent ill contacts, productive cough, BRBPR, Headache, vertigo, skin rash. Pt admitted to medical floor. Nephrology consulted in ED for urgent dialysis. Past History Past Medical History: arthritis, ESRD, GERD, heart failure, hypertension Past Surgical History: tonsillectomy, Other (AVF, Dialysis Catheter) Social history: single, smoking Family history: hypertension Medications and Allergies Allergies Allergy/AdvReac Type Severity Reaction Status Date / Time heparin Allergy lowers Verified 02/22/18 18:35 platelets Home Medications Medication Instructions Recorded Confirmed Last Taken Type Esomeprazole Magnesium [Nexium] 40 mg PO DAILY #30 capsule. 12/21/17 03/25/18 03/25/18 06:00 Rx Vit B Complx C/Folic Acid/Zinc 0.8 mg PO DAILY #30 tablet 12/21/17 03/25/18 03/25/18 06:00 Rx [Dialyvite 800-Zinc 15 mg Tab] cloNIDine [Catapres] 0.3 mg PO TID 30 Days tablet 12/21/17 03/25/18 03/25/18 06:00 Rx hydrALAZINE [Apresoline TAB] 100 mg PO TID #90 tab 12/21/17 03/25/18 03/25/18 06:00 Rx traZODone [Desyrel] 100 mg PO QHS #30 tablet 12/21/17 03/25/18 03/24/18 20:00 Rx ALPRAZolam [Xanax] 1 mg PO HS PRN 12/29/17 03/25/18 03/25/18 06:00 History Carvedilol [Coreg] 25 mg PO BID 12/29/17 03/25/18 03/25/18 06:00 History Cholecalciferol (Vitamin D3) 2,000 unit PO DAILY 12/29/17 03/25/18 03/25/18 06:00 History [Vitamin D3] Ondansetron [Zofran TAB] 4 mg PO QID PRN 12/29/17 03/25/18 03/25/18 06:00 History Aspirin EC [Aspirin Enteric Coated 81 mg PO QDAY #30 tablet.dr 03/04/18 03/25/18 03/25/18 06:00 Rx TAB] AtorvaSTATin [Lipitor] 40 mg PO QHS #30 tab 03/04/18 03/25/18 03/25/18 06:00 Rx Clindamycin [Clindamycin CAP] 300 mg PO Q8H #21 cap 03/15/18 03/25/18 03/25/18 06:00 Rx Review of Systems Constitutional: no weight loss, no weight gain, no fever, no chills Ears, nose, mouth and throat: no ear pain, no ear discharge, no tinnitis, no decreased hearing, no nose pain Cardiovascular: shortness of breath, no chest pain, no orthopnea, no palpitations Respiratory: no cough, no cough with sputum, no excessive sputum, no hemoptysis Gastrointestinal: no abdominal pain, no nausea, no vomiting, no diarrhea Genitourinary Male: no dysuria, no hematuria, no flank pain, no discharge Rectal: no pain, no incontinence, no bleeding Musculoskeletal: no neck stiffness, no neck pain, no shooting arm pain, no arm numbness/tingling, no low back pain, no shooting leg pain Integumentary: no rash, no pruritis, no redness, no sores, no wounds Neurological: no transient paralysis, no paralysis, no weakness, no parathesias, no numbness, no tingling, no seizures Psychiatric: no anxiety, no memory loss, no change in sleep habits, no sleep disturbances, no insomnia, no hypersomnia, no change in appetite, no change in libido Endocrine: no cold intolerance, no heat intolerance, no polyphagia, no excessive thirst, no polydipsia, no polyuria Hematologic/Lymphatic: no easy bruising, no lymphadenopathy, no lymphedema Allergic/Immunologic: no urticaria, no allergic rhinitis, no wheezing, no persis tent infections, no anaphylaxis, no angioedema Exam - Constitutional Vitals: Temp Pulse Resp BP Pulse Ox 60 14 134/86 99 03/25/18 15:11 03/25/18 15:11 03/25/18 15:11 03/25/18 15:11 General appearance: Present: mild distress - EENT Eyes: Present: PERRL ENT: hearing intact, clear oral mucosa - Neck Neck: Present: supple, normal ROM - Respiratory Respiratory effort: labored Respiratory: bilateral: diminished, rhonchi - Cardiovascular Heart Sounds: Present: S1 & S2. Absent: rub, click - Extremities Extremities: pulses symmetrical, No edema Peripheral Pulses: within normal limits - Abdominal General gastrointestinal: Present: soft, non-tender, non-distended, normal bowel sounds Male genitourinary: Present: normal - Integumentary Integumentary: Present: clear, warm, dry - Musculoskeletal Musculoskeletal: gait normal, strength equal bilaterally - Psychiatric Psychiatric: appropriate mood/affect, intact judgment & insight - Neurologic Neurologic: CNII-XII intact, moves all extremities Results - Labs CBC & Chem 7: 03/25/18 13:01 03/25/18 13:01 Labs: Abnormal lab results 03/25/18 03/25/18 03/25/18 Range/Units 13:01 13:01 13:01 RBC 3.15 L (3.65-5.03) M/mm3 Hgb 9.1 L (11.8-15.2) gm/dl Hct 28.9 L (35.5-45.6) % MCHC 31 L (32-34) % RDW 19.3 H (13.2-15.2) % Potassium 5.4 H (3.6-5.0) mmol/L BUN 80 H (9-20) mg/dL Creatinine 8.5 H (0.8-1.5) mg/dL Glucose 122 H (75-100) mg/dL Calcium 8.1 L (8.4-10.2) mg/dL Troponin T 0.377 H* (0.00-0.029) ng/mL LDL Cholesterol Direct 45 L (50-130) mg/dL Assessment and Plan - Patient Problems (1) End stage renal disease Current Visit: Yes Status: Acute Plan to address problem: Nephrology consulted in ED for urgent dialysis, avoid nephrotoxic agents. (2) Acute exacerbation of CHF (congestive heart failure) Current Visit: No Status: Acute Qualifiers: Heart failure type: unspecified Qualified Code(s): I50.9 - Heart failure, unspecified Plan to address problem: Afterload reduction, strict I/O, daily weight, monitor uop q shift, chest x ray, bnp, diuresis, urgent dialysis, remote telemetry (3) Acute hypoxemic respiratory failure Current Visit: No Status: Acute Plan to address problem: Supplemental oxygen, nebulizer therapy, chest x ray, NIPPV as clinically joe cated, pulse oximetry, urgent dialysis (4) DVT prophylaxis Current Visit: No Status: Acute Plan to address problem: SCD to BLE while in bed,
[2018-03-25] MEDS ORDERED: PROVENTIL IH PRN (15:38)
--- NOTE | 2018-03-25 15:41 | Consultation ---
Medications and Allergies Allergies Allergy/AdvReac Type Severity Reaction Status Date / Time heparin Allergy lowers Verified 02/22/18 18:35 platelets Home Medications Medication Instructions Recorded Confirmed Last Taken Type Esomeprazole Magnesium [Nexium] 40 mg PO DAILY #30 capsule. 12/21/17 03/10/18 03/10/18 Rx Vit B Complx C/Folic Acid/Zinc 0.8 mg PO DAILY #30 tablet 12/21/17 03/10/18 03/10/18 Rx [Dialyvite 800-Zinc 15 mg Tab] cloNIDine [Catapres] 0.3 mg PO TID 30 Days tablet 12/21/17 03/10/18 03/10/18 Rx hydrALAZINE [Apresoline TAB] 100 mg PO TID #90 tab 12/21/17 03/10/18 03/10/18 Rx traZODone [Desyrel] 100 mg PO QHS #30 tablet 12/21/17 03/10/18 03/09/18 Rx ALPRAZolam [Xanax] 1 mg PO HS PRN 12/29/17 03/10/18 03/09/18 History Carvedilol [Coreg] 25 mg PO BID 12/29/17 03/10/18 03/10/18 History Cholecalciferol (Vitamin D3) 2,000 unit PO DAILY 12/29/17 03/10/18 03/10/18 History [Vitamin D3] Ondansetron [Zofran TAB] 4 mg PO QID PRN 12/29/17 03/10/18 03/10/18 History Aspirin EC [Aspirin Enteric Coated 81 mg PO QDAY #30 tablet. 03/04/18 03/10/18 03/10/18 Rx TAB] AtorvaSTATin [Lipitor] 40 mg PO QHS #30 tab 03/04/18 03/10/18 03/10/18 Rx Clindamycin [Clindamycin CAP] 300 mg PO Q8H #21 cap 03/15/18 Unknown Rx Active Meds: Active Medications Acetaminophen (Tylenol) 650 mg PO Q4H PRN PRN Reason: Pain MILD(1-3)/Fever >100.5/JENKINS Acetaminophen (Tylenol) 650 mg PO Q4H PRN PRN Reason: Pain MILD(1-3)/Fever >100.5/JENKINS Albuterol (Proventil) 2.5 mg IH Q4HRT PRN PRN Reason: Shortness Of Breath Ondansetron HCl (Zofran) 4 mg IV Q8H PRN PRN Reason: Nausea And Vomiting Ondansetron HCl (Zofran) 4 mg IV Q8H PRN PRN Reason: Nausea And Vomiting Sodium Chloride (Sodium Chloride Flush Syringe 10 Ml) 10 ml IV BID CHONG Sodium Chloride (Sodium Chloride Flush Syringe 10 Ml) 10 ml IV PRN PRN PRN Reason: LINE FLUSH Sodium Chloride (Sodium Chloride Flush Syringe 10 Ml) 10 ml IV BID CHONG Sodium Chloride (Sodium Chloride Flush Syringe 10 Ml) 10 ml IV PRN PRN PRN Reason: LINE FLUSH Exam - Vital Signs Vital signs: Vital Signs Pulse Resp BP Pulse Ox 59 L 19 149/75 95 03/25/18 13:36 03/25/18 13:36 03/25/18 13:36 03/25/18 13:36 Results - Lab Results 03/25/18 13:01 03/25/18 13:01 Most recent lab results Calcium 8.1 mg/dL (8.4-10.2) L 03/25/18 13:01
[2018-03-25] MEDS ORDERED: NACL 0.9% 100 ML IV PRN (15:42)
[2018-03-25] MEDS ORDERED: NON-FORMULARY (Ondansetron [Zofran Tab] 4 MG) PO PRN (16:17)
[2018-03-25] MEDS: DILAUDID IV ONE ×2 (16:36→17:21)
[2018-03-25] MEDS ORDERED: SODIUM CHLORIDE FLUSH SYRINGE 10 ML IV SCH (22:00)
[2018-03-26] MEDS: TYLENOL PO PRN ×2 (00:01→05:57)
[2018-03-26] MEDS: COREG PO SCH ×3 (00:02→21:00)
[2018-03-26] MEDS: APRESOLINE PO SCH ×4 (00:03→21:00)
[2018-03-26] MEDS: CATAPRES PO SCH ×4 (00:03→21:00)
[2018-03-26] MEDS: DESYREL PO SCH ×2 (00:04→21:00)
[2018-03-26] MEDS: SODIUM CHLORIDE FLUSH SYRINGE 10 ML IV SCH ×3 (00:04→21:44)
[2018-03-26] MEDS: XANAX PO PRN ×2 (05:58→21:43)
[2018-03-26] MEDS ORDERED: FOLIC ACID PO SCH (10:00)
[2018-03-26] MEDS ORDERED: NON-FORMULARY (Esomeprazole Magnesium [Nexium] 40 MG) PO SCH (10:00)
[2018-03-26] MEDS ORDERED: VIT B COMPLX C PO SCH (10:00)
[2018-03-26] MEDS ORDERED: NON-FORMULARY (Cholecalciferol (Vitamin D3) [Vitamin D3] 2,000 UNIT) PO SCH (10:00)
[2018-03-26] MEDS ORDERED: ZINC PO SCH (10:00)
[2018-03-26] MEDS: Renal Caps PO SCH (10:09)
[2018-03-26] MEDS: HALFPRIN EC PO SCH (10:09)
[2018-03-26] MEDS: PROTONIX PO SCH (10:10)
[2018-03-26] MEDS: VITAMIN D3 PO SCH (10:10)
--- NOTE | 2018-03-26 10:13 | Progress Note ---
Assessment and Plan Assessment and plan: 28 YO Male with ESRD on HD (T,R,Sa), HTN, GERD, Systolic CHF(EF 40%), Nicotine Dependence, Noncompliance, Chronic Respiratory Failure on 5-6L Home Oxygen via [place], pw sob ESRD/hyperkalemia, fluid overload -nephrology consulted for urgent HD Acute on chronic hypoxic respiratory failure Continue oxygen supplements htn urgency -optimize meds Acute on chronic systolic CHF EF 30%, cardiology consult Fluid removal via HD, optimize meds AOCD monitor Hg, stable Non adherence with meds and HD patient was counseled extensively pain med seeking behavior -he is insisting of getting iv pain meds for chronic pain advised him that it is not in his benefit, oral pain meds ordered Dvt ppx heparin History Interval history: Review of systems Constitutional: No fevers, no malaise, no joint pains CVS: No chest pain, orthopnea and dyspnea on exertion are improved, no pedal edema GI: No abdominal pain, no diarrhea, no vomiting, no constipation Respiratory: No shortness of breath, no wheezing, no coughing Hospitalist Physical - Physical exam Narrative exam: General.: Appears well, no distress, nontoxic HEENT: Moist mucous membranes, extraocular muscles intact, no lymphadenopathy Neck: supple Cardiac: S1-S2 heard Lungs: Bibasilar crackles Abdomen: soft , nontender, nondistended, bowel sounds positive Extremities: no edema clubbing or cyanosis Skin: no rash or lesions Neurologic: no gross focal deficits Psych: calm, and cooperative - Constitutional Vitals: Temp Pulse Resp BP Pulse Ox 97.8 F 60 24 137/68 97 03/26/18 05:46 03/26/18 05:46 03/26/18 05:57 03/26/18 05:46 03/26/18 09:07 General appearance: Present: mild distress Results - Labs CBC & Chem 7: 03/25/18 13:01 03/25/18 13:01 Labs: Laboratory Last Values WBC 6.6 K/mm3 (4.5-11.0) 03/25/18 13:01 RBC 3.15 M/mm3 (3.65-5.03) L 03/25/18 13:01 Hgb 9.1 gm/dl (11.8-15.2) L 03/25/18 13:01 Hct 28.9 % (35.5-45.6) L 03/25/18 13:01 MCV 92 fl (84-94) 03/25/18 13:01 MCH 29 pg (28-32) 03/25/18 13:01 MCHC 31 % (32-34) L 03/25/18 13:01 RDW 19.3 % (13.2-15.2) H 03/25/18 13:01 Plt Count 154 K/mm3 (140-440) 03/25/18 13:01 Lymph % (Auto) 17.8 % (13.4-35.0) 03/25/18 13:01 [place] % (Auto) 7.3 % (0.0-7.3) 03/25/18 13:01 Eos % (Auto) 3.9 % (0.0-4.3) 03/25/18 13:01 Baso % (Auto) 1.6 % (0.0-1.8) 03/25/18 13:01 Lymph # 1.2 K/mm3 (1.2-5.4) 03/25/18 13:01 [place] # 0.5 K/mm3 (0.0-0.8) 03/25/18 13:01 Eos # 0.3 K/mm3 (0.0-0.4) 03/25/18 13:01 Baso # 0.1 K/mm3 (0.0-0.1) 03/25/18 13:01 Seg Neutrophils % 69.4 % (40.0-70.0) 03/25/18 13:01 Seg Neutrophils # 4.6 K/mm3 (1.8-7.7) 03/25/18 13:01 Sodium 141 mmol/L (137-145) 03/25/18 13:01 Potassium 5.4 mmol/L (3.6-5.0) H 03/25/18 13:01 Chloride 100.4 mmol/L (98-107) 03/25/18 13:01 Carbon Dioxide 24 mmol/L (22-30) 03/25/18 13:01 Anion Gap 22 mmol/L 03/25/18 13:01 BUN 80 mg/dL (9-20) H 03/25/18 13:01 Creatinine 8.5 mg/dL (0.8-1.5) H 03/25/18 13:01 Estimated GFR 7 ml/min 03/25/18 13:01 BUN/Creatinine Ratio 9 % 03/25/18 13:01 Glucose 122 mg/dL (75-100) H 03/25/18 13:01 Calcium 8.1 mg/dL (8.4-10.2) L 03/25/18 13:01 Troponin T 0.377 ng/mL (0.00-0.029) H* 03/25/18 13:01 NT-Pro-B Natriuret Pep > 06544 pg/mL (0-450) H 03/25/18 21:11 Triglycerides 53 mg/dL (2-149) 03/25/18 13:01 Cholesterol 96 mg/dL (50-199) 03/25/18 13:01 LDL Cholesterol Direct 45 mg/dL (50-130) L 03/25/18 13:01 HDL Cholesterol 44 mg/dL (40-59) 03/25/18 13:01 Cholesterol/HDL Ratio 2.18 % 03/25/18 13:01
--- NOTE | 2018-03-26 10:52 | Consultation ---
History of Present Illness - History of Present Illness Thank you for the consultation Source of information: Patient as well as old chart History of presenting illness Patient is a 28-year-old male who has been admitted here with shortness of breath not feeling well generalized fatigue weakness was also noted to have some fluid overload hyperkalemia anemia requiring renal replacement therapy that was provided yesterday Patient is feeling much better today denies any complaints of chest pain but his troponin was borderline elevated 0.3 yesterday he remains chest pain-free today. Patient also suffers from gastroesophageal reflux disorder systolic heart failure ejection fraction 40% and has history of nicotine dependence is also oxygen dependent at home between 4-6 L, and was admitted with acute on chronic hypoxemic respiratory failure Is currently pending cardiology evaluation His regular dialysis days are Tuesday and Tuesday, Past medical history significant for: End-stage renal disease Anemia in end-stage renal disease Hypertension Secondary hyperparathyroidism Chronic intermittent noncompliance Chronic ascites Current allergies: Reviewed Home medication/present medication: Reviewed Social history: Reviewed from the current chart Family history: Reviewed from the current chart Review of system is positive for; All other review of systems were negative Physical examination Vitals: Reviewed from this admission Gen.: No acute distress HEENT: Normocephalic/atraumatic skull oral mucosa moist minimal pallor no icterus or uremic order Neck: Supple without any thyromegaly nodular mass or JVD Chest: Few bilateral basilar crackles Heart: Regular rate and rhythm S1 and S2 heard no S3-S4 no pericardial rub Abdomen: Soft nontender no guarding rigidity rebound organomegaly no suprapubic masses, no CVA tenderness no renal bruit Back: No CVA tenderness Derm: No petechial rashes dry skin Extremity: Pulses palpable no peripheral cyanosis, 1+ edema dry skin Neurological: Alert awake follows commands Psychiatric: No agitation and aggression Labs and x-rays: Were reviewed from this admission Assessment and plan; End-stage renal disease: Patient is currently in maintenance hemodialysis was admitted here with shortness of breath and fluid overload, patient does have history of chronic noncompliance is feeling much better today postdialysis treatment Hypertension and volume: Requires better control management and follow-up in a patient who has been chronically noncompliant Anemia in end-stage renal disease: To monitor and follow current hemoglobin around 9.1 Abnormal troponin is a patient who is very high risk should be pursued with a cardiology evaluation and follow-up on the troponin level added as his troponin is high by end-stage renal disease standard Hyperkalemia very mild at this time to monitor and follow patient will need follow-up labs Chronically noncompliant patient has been adequately [place] educated regarding multiple renal related issues His prognosis long-term is very poor due to mostly noncompliance Have adequately counseled and educated this patient at length prognosis will depend on his involvement in his health as well as compliance with diet lifestyle medication and follow up , Thank you for the consultation. Past History Past Medical History: arthritis, ESRD, GERD, heart failure, hypertension Past Surgical History: tonsillectomy, Other (AVF, Dialysis Catheter) Social history: single, smoking Family history: hypertension Medications and Allergies Allergies Allergy/AdvReac Type Severity Reaction Status Date / Time heparin Allergy lowers Verified 02/22/18 18:35 platelets Home Medications Medication Instructions Recorded Confirmed Last Taken Type Esomeprazole Magnesium [Nexium] 40 mg PO DAILY #30 capsule. 12/21/17 03/25/18 03/25/18 06:00 Rx Vit B Complx C/Folic Acid/Zinc 0.8 mg PO DAILY #30 tablet 12/21/17 03/25/18 03/25/18 06:00 Rx [Dialyvite 800-Zinc 15 mg Tab] cloNIDine [Catapres] 0.3 mg PO TID 30 Days tablet 12/21/17 03/25/18 03/25/18 06:00 Rx hydrALAZINE [Apresoline TAB] 100 mg PO TID #90 tab 12/21/17 03/25/18 03/25/18 06:00 Rx traZODone [Desyrel] 100 mg PO QHS #30 tablet 12/21/17 03/25/18 03/24/18 20:00 Rx ALPRAZolam [Xanax] 1 mg PO HS PRN 12/29/17 03/25/18 03/25/18 06:00 History Carvedilol [Coreg] 25 mg PO BID 12/29/17 03/25/18 03/25/18 06:00 History Cholecalciferol (Vitamin D3) 2,000 unit PO DAILY 12/29/17 03/25/18 03/25/18 06:00 History [Vitamin D3] Ondansetron [Zofran TAB] 4 mg PO QID PRN 12/29/17 03/25/18 03/25/18 06:00 History Aspirin EC [Aspirin Enteric Coated 81 mg PO QDAY #30 tablet. 03/04/18 03/25/18 03/25/18 06:00 Rx TAB] AtorvaSTATin [Lipitor] 40 mg PO QHS #30 tab 03/04/18 03/25/18 03/25/18 06:00 Rx Clindamycin [Clindamycin CAP] 300 mg PO Q8H #21 cap 03/15/18 03/25/18 03/25/18 06:00 Rx Active Meds: Active Medications Acetaminophen (Tylenol) 650 mg PO Q4H PRN PRN Reason: Pain MILD(1-3)/Fever >100.5/JENKINS Last Admin: 03/26/18 05:57 Dose: 650 mg Documented by: Albuterol (Proventil) 2.5 mg IH Q4H PRN PRN Reason: Shortness Of Breath Alprazolam (Xanax) 1 mg PO HS PRN PRN Reason: Sleep Last Admin: 03/26/18 05:58 Dose: 1 mg Documented by: Aspirin (Halfprin Ec) 81 mg PO QDAY [facility] Last Admin: 03/26/18 10:09 Dose: 81 mg Documented by: Atorvastatin Calcium (Lipitor) 40 mg PO QHS [facility] Last Admin: 03/26/18 00:01 Dose: 40 mg Documented by: Carvedilol (Coreg) 25 mg PO BID [facility] Last Admin: 03/26/18 10:09 Dose: 25 mg Documented by: Cholecalciferol (Vitamin D3) 2,000 unit PO QDAY [facility] Last Admin: 03/26/18 10:10 Dose: 2,000 unit Documented by: Clonidine HCl (Catapres) 0.3 mg PO TID [facility] Last Admin: 03/26/18 10:10 Dose: 0.3 mg Documented by: Hydralazine HCl (Apresoline) 100 mg PO TID [facility] Last Admin: 03/26/18 10:09 Dose: 100 mg Documented by: Sodium Chloride (Nacl 0.9%) 100 mls @ 999 mls/hr IV APRIL PRN PRN Reason: Hypotension Multivit/Ca Carb/B Cmplx/FA/Prenat (Renal Caps) 1 cap PO QDAY [facility] Last Admin: 03/26/18 10:09 Dose: 1 cap Documented by: Ondansetron HCl (Zofran) 4 mg IV Q8H PRN PRN Reason: Nausea And Vomiting Pantoprazole Sodium (Protonix) 40 mg PO DAILY [facility] Last Admin: 03/26/18 10:10 Dose: 40 mg Documented by: Sodium Chloride (Sodium Chloride Flush Syringe 10 Ml) 10 ml IV BID [facility] Last Admin: 03/26/18 10:10 Dose: 10 ml Documented by: Sodium Chloride (Sodium Chloride Flush Syringe 10 Ml) 10 ml IV PRN PRN PRN Reason: LINE FLUSH Trazodone HCl (Desyrel) 100 mg PO QHS [facility] Last Admin: 03/26/18 00:04 Dose: 100 mg Documented by: Exam - Vital Signs Vital signs: Vital Signs Pulse Resp BP Pulse Ox 59 L 19 149/75 95 03/25/18 13:36 03/25/18 13:36 03/25/18 13:36 03/25/18 13:36 Results - Lab Results 03/25/18 13:01 03/25/18 13:01 Most recent lab results Calcium 8.1 mg/dL (8.4-10.2) L 03/25/18 13:01
--- NOTE | 2018-03-26 13:19 | Consultation ---
History of Present Illness Consult date: 03/26/18 Consult reason: congestive heart failure History of present illness: 28 YO man with h/o non ischemic cardiomyopathy and ESRD who is admitted with worsening shortness of breath, fatigue and generalized malaise. He was noted to be volume overloaded and underwent dialysis. He also complains of generalized body aches. His troponin was noted to be nons-specifically elevated in setting of ESRD. Of note, he had coronary angiogram within last year which revealed no significant CAD. Past History Past Medical History: arthritis, ESRD, GERD, heart failure, hypertension Past Surgical History: tonsillectomy, Other (AVF, Dialysis Catheter) Social history: single, smoking Family history: hypertension Medications and Allergies Allergies Allergy/AdvReac Type Severity Reaction Status Date / Time heparin Allergy lowers Verified 02/22/18 18:35 platelets Home Medications Medication Instructions Recorded Confirmed Last Taken Type Esomeprazole Magnesium [Nexium] 40 mg PO DAILY #30 capsule. 12/21/17 03/25/18 03/25/18 06:00 Rx Vit B Complx C/Folic Acid/Zinc 0.8 mg PO DAILY #30 tablet 12/21/17 03/25/18 03/25/18 06:00 Rx [Dialyvite 800-Zinc 15 mg Tab] cloNIDine [Catapres] 0.3 mg PO TID 30 Days tablet 12/21/17 03/25/18 03/25/18 06:00 Rx hydrALAZINE [Apresoline TAB] 100 mg PO TID #90 tab 12/21/17 03/25/18 03/25/18 06:00 Rx traZODone [Desyrel] 100 mg PO QHS #30 tablet 12/21/17 03/25/18 03/24/18 20:00 Rx ALPRAZolam [Xanax] 1 mg PO HS PRN 12/29/17 03/25/18 03/25/18 06:00 History Carvedilol [Coreg] 25 mg PO BID 12/29/17 03/25/18 03/25/18 06:00 History Cholecalciferol (Vitamin D3) 2,000 unit PO DAILY 12/29/17 03/25/18 03/25/18 06:00 History [Vitamin D3] Ondansetron [Zofran TAB] 4 mg PO QID PRN 10/03/25/18 03/25/18 06:00 History Aspirin EC [Aspirin Enteric Coated 81 mg PO QDAY #30 tablet. 03/04/18 03/25/18 03/25/18 06:00 Rx TAB] AtorvaSTATin [Lipitor] 40 mg PO QHS #30 tab 03/04/18 03/25/18 03/25/18 06:00 Rx Clindamycin [Clindamycin CAP] 300 mg PO Q8H #21 cap 03/15/18 03/25/18 03/25/18 06:00 Rx Active Meds: Active Medications Acetaminophen (Tylenol) 650 mg PO Q4H PRN PRN Reason: Pain MILD(1-3)/Fever >100.5/JENKINS Last Admin: 03/26/18 05:57 Dose: 650 mg Documented by: Albuterol (Proventil) 2.5 mg IH Q4H PRN PRN Reason: Shortness Of Breath Alprazolam (Xanax) 1 mg PO HS PRN PRN Reason: Sleep Last Admin: 03/26/18 05:58 Dose: 1 mg Documented by: Aspirin (Halfprin Ec) 81 mg PO QDAY [facility] Last Admin: 03/26/18 10:09 Dose: 81 mg Documented by: Atorvastatin Calcium (Lipitor) 40 mg PO QHS [facility] Last Admin: 03/26/18 00:01 Dose: 40 mg Documented by: Carvedilol (Coreg) 25 mg PO BID [facility] Last Admin: 03/26/18 10:09 Dose: 25 mg Documented by: Cholecalciferol (Vitamin D3) 2,000 unit PO QDAY [facility] Last Admin: 03/26/18 10:10 Dose: 2,000 unit Documented by: Clonidine HCl (Catapres) 0.3 mg PO TID [facility] Last Admin: 03/26/18 10:10 Dose: 0.3 mg Documented by: Hydralazine HCl (Apresoline) 100 mg PO TID [facility] Last Admin: 03/26/18 10:09 Dose: 100 mg Documented by: Sodium Chloride (Nacl 0.9%) 100 mls @ 999 mls/hr IV APRIL PRN PRN Reason: Hypotension Multivit/Ca Carb/B Cmplx/FA/Prenat (Renal Caps) 1 cap PO QDAY [facility] Last Admin: 03/26/18 10:09 Dose: 1 cap Documented by: Ondansetron HCl (Zofran) 4 mg IV Q8H PRN PRN Reason: Nausea And Vomiting Pantoprazole Sodium (Protonix) 40 mg PO DAILY [facility] Last Admin: 03/26/18 10:10 Dose: 40 mg Documented by: Sodium Chloride (Sodium Chloride Flush Syringe 10 Ml) 10 ml IV BID [facility] Last Admin: 03/26/18 10:10 Dose: 10 ml Documented by: Sodium Chloride (Sodium Chloride Flush Syringe 10 Ml) 10 ml IV PRN PRN PRN Reason: LINE FLUSH Trazodone HCl (Desyrel) 100 mg PO QHS [facility] Last Admin: 03/26/18 00:04 Dose: 100 mg Documented by: Physical Examination Vital Signs Pulse Resp BP Pulse Ox 59 L 19 149/75 95 03/25/18 13:36 03/25/18 13:36 03/25/18 13:36 03/25/18 13:36 General appearance: no acute distress Neck: Positive: neck supple Cardiac: Positive: Reg Rate and Rhythm Lungs: Positive: Decreased Breath Sounds Abdomen: Positive: Soft, Active Bowel Sounds Extremities: Present: +1 Edema Results 03/25/18 13:01 03/25/18 13:01 Cardiac Enzymes 03/25/18 03/25/18 03/25/18 Range/Units 13:01 13:01 13:01 WBC 6.6 (4.5-11.0) K/mm3 RBC 3.15 L (3.65-5.03) M/mm3 Hgb 9.1 L (11.8-15.2) gm/dl Hct 28.9 L (35.5-45.6) % MCV 92 (84-94) fl MCH 29 (28-32) pg MCHC 31 L (32-34) % RDW 19.3 H (13.2-15.2) % Plt Count 154 (140-440) K/mm3 Lymph % (Auto) 17.8 (13.4-35.0) % [place] % (Auto) 7.3 (0.0-7.3) % Eos % (Auto) 3.9 (0.0-4.3) % Baso % (Auto) 1.6 (0.0-1.8) % Lymph # 1.2 (1.2-5.4) K/mm3 [place] # 0.5 (0.0-0.8) K/mm3 Eos # 0.3 (0.0-0.4) K/mm3 Baso # 0.1 (0.0-0.1) K/mm3 Seg Neutrophils % 69.4 (40.0-70.0) % Seg Neutrophils # 4.6 (1.8-7.7) K/mm3 Sodium 141 (137-145) mmol/L Potassium 5.4 H (3.6-5.0) mmol/L Chloride 100.4 (98-107) mmol/L Carbon Dioxide 24 (22-30) mmol/L Anion Gap 22 mmol/L BUN 80 H (9-20) mg/dL Creatinine 8.5 H (0.8-1.5) mg/dL Estimated GFR 7 ml/min BUN/Creatinine Ratio 9 % Glucose 122 H (75-100) mg/dL Calcium 8.1 L (8.4-10.2) mg/dL Troponin T 0.377 H* (0.00-0.029) ng/mL NT-Pro-B Natriuret Pep (0-450) pg/mL Triglycerides 53 (2-149) mg/dL Cholesterol 96 (50-199) mg/dL LDL Cholesterol Direct 45 L (50-130) mg/dL HDL Cholesterol 44 (40-59) mg/dL Cholesterol/HDL Ratio 2.18 % 03/25/18 Range/Units 21:11 WBC (4.5-11.0) K/mm3 RBC (3.65-5.03) M/mm3 Hgb (11.8-15.2) gm/dl Hct (35.5-45.6) % MCV (84-94) fl MCH (28-32) pg MCHC (32-34) % RDW (13.2-15.2) % Plt Count (140-440) K/mm3 Lymph % (Auto) (13.4-35.0) % [place] % (Auto) (0.0-7.3) % Eos % (Auto) (0.0-4.3) % Baso % (Auto) (0.0-1.8) % Lymph # (1.2-5.4) K/mm3 [place] # (0.0-0.8) K/mm3 Eos # (0.0-0.4) K/mm3 Baso # (0.0-0.1) K/mm3 Seg Neutrophils % (40.0-70.0) % Seg Neutrophils # (1.8-7.7) K/mm3 Sodium (137-145) mmol/L Potassium (3.6-5.0) mmol/L Chloride (98-107) mmol/L Carbon Dioxide (22-30) mmol/L Anion Gap mmol/L BUN (9-20) mg/dL Creatinine (0.8-1.5) mg/dL Estimated GFR ml/min BUN/Creatinine Ratio % Glucose (75-100) mg/dL Calcium (8.4-10.2) mg/dL Troponin T (0.00-0.029) ng/mL NT-Pro-B Natriuret Pep > 01213 H (0-450) pg/mL Triglycerides (2-149) mg/dL Cholesterol (50-199) mg/dL LDL Cholesterol Direct (50-130) mg/dL HDL Cholesterol (40-59) mg/dL Cholesterol/HDL Ratio % Lipids 03/25/18 Range/Units 13:01 Triglycerides 53 (2-149) mg/dL Cholesterol 96 (50-199) mg/dL HDL Cholesterol 44 (40-59) mg/dL Cholesterol/HDL Ratio 2.18 % CBC 03/25/18 Range/Units 13:01 WBC 6.6 (4.5-11.0) K/mm3 RBC 3.15 L (3.65-5.03) M/mm3 Hgb 9.1 L (11.8-15.2) gm/dl Hct 28.9 L (35.5-45.6) % Plt Count 154 (140-440) K/mm3 Lymph # 1.2 (1.2-5.4) K/mm3 [place] # 0.5 (0.0-0.8) K/mm3 Eos # 0.3 (0.0-0.4) K/mm3 Baso # 0.1 (0.0-0.1) K/mm3 Comprehensive Metabolic Panel 03/25/18 Range/Units 13:01 Sodium 141 (137-145) mmol/L Potassium 5.4 H (3.6-5.0) mmol/L Chloride 100.4 (98-107) mmol/L Carbon Dioxide 24 (22-30) mmol/L BUN 80 H (9-20) mg/dL Creatinine 8.5 H (0.8-1.5) mg/dL Glucose 122 H (75-100) mg/dL Calcium 8.1 L (8.4-10.2) mg/dL Assessment and Plan Volume overload Hyperkalemia ESRD on dialysis Hypertension Non-ischemic cardiomyopathy [facility] 07/2017: no significant coronary artery disease but a decreased left ventricular ejection fraction 15-20%. Recommend: Continue fluid removal via dialysis and medical therapy for NICMP Continue beta deja Will defer ACEI/ARB for now due to recurrent hyperkalemia
[2018-03-26] MEDS: PERCOCET 5/325 PO PRN ×2 (13:48→21:39)
[2018-03-27] MEDS: PERCOCET 5/325 PO PRN (05:36)
--- NOTE | 2018-03-27 08:42 | Progress Note ---
Addendum entered and electronically signed by CARINA SCHROEDER MD 03/27/18 12:09: Medical therapy for nonischemic cardiomyopathy and chronic systolic heart failure. Dialysis ongoing for fluid management. Original Note: Assessment and Plan Volume overload Hyperkalemia ESRD on dialysis Hypertension Non-ischemic cardiomyopathy [facility] 07/2017: no significant coronary artery disease but a decreased left ventricular ejection fraction 15-20%. Hx of Ascities Recommendations: Salt/fluid restricted diet. Dialysis for fluid management. Continue medical therapy for his non-ischemic cardiomyopathy and chronic systolic heart failure. Subjective Date of service: 03/27/18 Interval history: Patient reports his breathing is better. Objective Vital Signs Temp Pulse Resp BP Pulse Ox 03/27/18 08:04 99 03/27/18 06:50 97.7 F 54 L 20 160/87 99 03/27/18 00:04 97.4 F L 57 L 22 125/63 98 03/26/18 22:00 18 03/26/18 21:00 58 L 171/83 03/26/18 17:04 98.8 F 56 L 20 153/71 96 03/26/18 11:40 97.9 F 20 129/67 03/26/18 09:07 97 - Physical Examination General: No Apparent Distress HEENT: Positive: PERRL Neck: Positive: neck supple Cardiac: Positive: Reg Rate and Rhythm Lungs: Positive: Decreased Breath Sounds Neuro: Positive: Grossly Intact Abdomen: Positive: Soft, Active Bowel Sounds Extremities: Absent: edema
[2018-03-27] MEDS ORDERED: NACL 0.9% 100 ML IV PRN (09:18)
--- NOTE | 2018-03-27 09:20 | Progress Note ---
Subjective Interval history: Patient was seen today for follow-up on multiple renal related issues Events of this hospitalization noted Status post cardiology evaluation Generalized body ache and pain: Chronic per patient Patient denies having any chest pain pressure or shortness of breath Vitals labs intake output medications were reviewed Social history: Reviewed Allergies: Reviewed Family history: Reviewed Physical examination HEENT: Oral mucosa moist no pallor or icterus Neck: Supple no JVD Chest: Clear to auscultation anteriorly CVS: Regular rate and rhythm S1 and S2 heard Abdomen: Soft nontender no suprapubic masses no organomegaly appreciable Extremity: Dry skin less than 1+ peripheral edema Musculoskeletal: No joint effusion noted in knees and ankle Neurological: Alert awake Dermatology: No petechial rashes Psychiatry: No evidence of any agitation and aggression noted Assessment and plan End-stage renal disease: Patient will need to be on dialysis Tuesday, will keep her on dialysis for at least 3 hours 45 minutes each treatment ultrafiltration as tolerated, Anemia in end-stage renal disease: To monitor and follow, hemoglobin was 9.1 on March 25 Will give him erythropoietin 10,000 units with every dialysis treatment, noted to have severe cardiomyopathy ejection fraction and 20% range, patient was made aware to follow-up with cardiology comply with treatment recommendation, prognosis guarded to poor mortality risk high with noncompliance Mild hyperkalemia potassium was 5.4 patient will need follow-up labs Abnormal troponin 0.377: Higher than ESRD standard patient needs to follow-up with cardiology, dialysis patients in general remained high risk for cardiovascular disease Secondary hyperparathyroidism: Monitor and follow Will order for follow-up Generalized ache and pain likely due to inadequate dialysis noncompliance check phosphorus and PTH level Chronic noncompliance: Counseled and educated Patient was adequately counseled and educated regarding multiple renal related issues Pertinent lab findings were discussed with patient, patient does exhibit good understanding of renal issues We'll continue to follow and make recommendation from renal standpoint Objective - Vital Signs Vital signs: Vital Signs - 12hr 03/26/18 03/27/18 03/27/18 22:00 00:04 06:50 Temperature 97.4 F L 97.7 F Pulse Rate 57 L 54 L Respiratory 18 22 20 Rate Blood Pressure 125/63 160/87 O2 Sat by Pulse 98 99 Oximetry 03/27/18 08:04 Temperature Pulse Rate Respiratory Rate Blood Pressure O2 Sat by Pulse 99 Oximetry - Lab 03/25/18 13:01 03/25/18 13:01 Most recent lab results Calcium 8.1 mg/dL (8.4-10.2) L 03/25/18 13:01 Medications & Allergies - Medications Allergies/Adverse Reactions: Allergies heparin Allergy (Verified 02/22/18 18:35) lowers platelets Home Medications: Home Medications Medication Instructions Recorded Confirmed Last Taken Type Esomeprazole Magnesium [Nexium] 40 mg PO DAILY #30 capsule. 12/21/17 03/25/18 03/25/18 06:00 Rx Vit B Complx C/Folic Acid/Zinc 0.8 mg PO DAILY #30 tablet 12/21/17 03/25/18 03/25/18 06:00 Rx [Dialyvite 800-Zinc 15 mg Tab] cloNIDine [Catapres] 0.3 mg PO TID 30 Days tablet 12/21/17 03/25/18 03/25/18 06:00 Rx hydrALAZINE [Apresoline TAB] 100 mg PO TID #90 tab 12/21/17 03/25/18 03/25/18 06:00 Rx traZODone [Desyrel] 100 mg PO QHS #30 tablet 12/21/17 03/25/18 03/24/18 20:00 Rx ALPRAZolam [Xanax] 1 mg PO HS PRN 12/29/17 03/25/18 03/25/18 06:00 History Carvedilol [Coreg] 25 mg PO BID 12/29/17 03/25/18 03/25/18 06:00 History Cholecalciferol (Vitamin D3) 2,000 unit PO DAILY 12/29/17 03/25/18 03/25/18 06:00 History [Vitamin D3] Ondansetron [Zofran TAB] 4 mg PO QID PRN 12/29/17 03/25/18 03/25/18 06:00 History Aspirin EC [Aspirin Enteric Coated 81 mg PO QDAY #30 tablet. 03/04/18 03/25/18 03/25/18 06:00 Rx TAB] AtorvaSTATin [Lipitor] 40 mg PO QHS #30 tab 03/04/18 03/25/18 03/25/18 06:00 Rx Clindamycin [Clindamycin CAP] 300 mg PO Q8H #21 cap 03/15/18 03/25/18 03/25/18 06:00 Rx Active Medications: Generic Name Dose Route Start Last Admin Trade Name Freq PRN Reason Stop Dose Admin Acetaminophen 650 mg 03/25/18 15:38 03/26/18 05:57 Tylenol PO 650 mg Q4H PRN Administration Pain MILD(1-3)/Fever >100.5/JENKINS Albuterol 2.5 mg 03/25/18 15:38 Proventil IH Q4H PRN Shortness Of Breath Alprazolam 1 mg 03/25/18 16:17 03/26/18 21:43 Xanax PO 1 mg HS PRN Administration Sleep Aspirin 81 mg 03/26/18 10:00 03/26/18 10:09 Halfprin Ec PO 81 mg QDAY CHONG Administration Atorvastatin Calcium 40 mg 03/25/18 22:00 03/26/18 21:00 Lipitor PO 40 mg QHS CHONG Administration Carvedilol 25 mg 03/25/18 22:00 03/26/18 21:00 Coreg PO 25 mg BID CHONG Administration Cholecalciferol 2,000 unit 03/26/18 10:00 03/26/18 10:10 Vitamin D3 PO 2,000 unit QDAY CHONG Administration Clonidine HCl 0.3 mg 03/25/18 20:00 03/26/18 21:00 Catapres PO 0.3 mg TID CHONG Administration Hydralazine HCl 100 mg 03/25/18 20:00 03/26/18 21:00 Apresoline PO 100 mg TID CHONG Administration Sodium Chloride 100 mls @ 999 mls/hr 03/25/18 15:42 Nacl 0.9% IV APRIL PRN Hypotension Multivit/Ca Carb/B Cmplx/FA/Prenat 1 cap 03/26/18 10:00 03/26/18 10:09 Renal Caps PO 1 cap QDAY CHONG Administration Ondansetron HCl 4 mg 03/25/18 15:38 Zofran IV Q8H PRN Nausea And Vomiting Oxycodone/Acetaminophen 1 tab 03/26/18 13:32 03/27/18 05:36 Percocet 5/325 PO 1 tab Q6H PRN Administration Pain, Moderate (4-6) Pantoprazole Sodium 40 mg 03/26/18 10:00 03/26/18 10:10 Protonix PO 40 mg DAILY CHONG Administration Sodium Chloride 10 ml 03/25/18 22:00 03/26/18 21:44 Sodium Chloride Flush Syringe 10 Ml IV 10 ml BID CHONG Administration Sodium Chloride 10 ml 03/25/18 15:38 Sodium Chloride Flush Syringe 10 Ml IV PRN PRN LINE FLUSH Trazodone HCl 100 mg 03/25/18 22:00 03/26/18 21:00 Desyrel PO 100 mg QHS CHONG Administration
[2018-03-27] MEDS: Renal Caps PO SCH (10:05)
[2018-03-27] MEDS: PROTONIX PO SCH (10:06)
[2018-03-27] MEDS: HALFPRIN EC PO SCH (10:06)
[2018-03-27] MEDS: VITAMIN D3 PO SCH (10:06)
[2018-03-27] MEDS: COREG PO SCH ×2 (10:07→23:00)
[2018-03-27] MEDS: APRESOLINE PO SCH ×3 (10:11→21:00)
[2018-03-27] MEDS: CATAPRES PO SCH ×3 (10:11→21:00)
[2018-03-27] MEDS: SODIUM CHLORIDE FLUSH SYRINGE 10 ML IV SCH ×2 (10:11→23:00)
[2018-03-27 10:37] LABS: Basophils # (Auto) 0.1 K/mm3 (0.0-0.1); Basophils % (Auto) 1.2 % (0.0-1.8); Eosinophils # (Auto) 0.1 K/mm3 (0.0-0.4); Eosinophils % (Auto) 2.5 % (0.0-4.3); Hematocrit 27.5 % (35.5-45.6); Hemoglobin 8.6 gm/dl (11.8-15.2); Lymphocytes # (Auto) 1.1 K/mm3 (1.2-5.4); Lymphocytes % (Auto) 18.7 % (13.4-35.0); Mean Corpuscular HGB Conc 31 % (32-34); Mean Corpuscular Volume 92 fl (84-94); Monocytes # (Auto) 0.4 K/mm3 (0.0-0.8); Monocytes % (Auto) 7.3 % (0.0-7.3); Platelet Count 121 K/mm3 (140-440); Red Blood Count 2.99 M/mm3 (3.65-5.03); Red Cell Distribution Width 19.8 % (13.2-15.2)
[2018-03-27 11:02] LABS: Albumin 3.4 g/dL (3.9-5); Calcium 8.3 mg/dL (8.4-10.2)
--- NOTE | 2018-03-27 13:12 | Discharge Summary ---
Providers - Providers Date of Admission: 03/25/18 15:35 Attending physician: SRINIVAS CAI MD 03/25/18 15:32 Consult to Physician [CONS] Urgent Comment: DR ELLIOTT NOTIFIED [id number] Consulting Provider: OLESYA ELLIOTT Physician Instructions: Reason For Exam: end-stage renal disease 03/26/18 10:12 Consult to Physician [CONS] Routine Comment: Consulting Provider: CARINA SCHROEDER Physician Instructions: Reason For Exam: chf, elevated trop Primary care physician: [employer] Hospitalization Condition: Fair Hospital course: 28 YO Male with ESRD on HD (T,R,Sa), HTN, GERD, Systolic CHF(EF 40%), Nicotine Dependence, Noncompliance, Chronic Respiratory Failure on 5-6L Home Oxygen via NC, pw sob -patient was fluid overloaded on presentation, he received HD and improved, he was counseled on improved adherence with his meds and HD -he was continued on oxygen during his hospital stay -he displayed pain med seeking behavior insisting on getting iv dilaudid, he was counseled and advised that it was not in his best interest -he was comanaged by Cardiology and nephrology who recommended conservative mgt, he improved and was dc -his meds were optimized for his chronic conditions diagnosis ESRD hyperkalemia fluid overload Acute on chronic hypoxic respiratory failure htn urgency Acute on chronic systolic CHF, ef 30 AOCD Non adherence with meds and HD pain med seeking behavior Disposition: DC-01 TO HOME OR SELFCARE Time spent for discharge: 33 minutes Core Measure Documentation - Palliative Care Palliative Care/ Comfort Measures: Not Applicable - Core Measures Any of the following diagnoses?: heart failure - Heart Failure Discharge Requirements DELFINO/ARB for LVSD if EF <40%: Yes Beta deja at discharge: Yes Exam - Constitutional Vitals: Temp Pulse Resp BP Pulse Ox 97.8 F 49 L 14 151/73 96 03/27/18 12:09 03/27/18 12:09 03/27/18 12:09 03/27/18 12:09 03/27/18 12:09 General appearance: Present: no acute distress, well-nourished - EENT Eyes: Present: PERRL ENT: hearing intact, clear oral mucosa - Neck Neck: Present: supple, normal ROM - Respiratory Respiratory effort: normal Respiratory: bilateral: CTA - Cardiovascular Heart Sounds: Present: S1 & S2. Absent: rub, click - Extremities Extremities: pulses symmetrical, No edema Peripheral Pulses: within normal limits - Abdominal General gastrointestinal: Present: soft, non-tender, non-distended, normal bowel sounds Male genitourinary: Present: normal - Integumentary Integumentary: Present: clear, warm, dry - Musculoskeletal Musculoskeletal: gait normal, strength equal bilaterally - Psychiatric Psychiatric: appropriate mood/affect, intact judgment & insight - Neurologic Neurologic: CNII-XII intact, moves all extremities Plan Follow up with: PRIMARY CARE,MD [Primary Care Provider] - 3-5 Days Prescriptions: AtorvaSTATin [Lipitor] 40 mg PO QHS #30 tab traZODone [Desyrel] 100 mg PO QHS #30 tablet Aspirin EC [Aspirin Enteric Coated TAB] 81 mg PO QDAY #30 tablet. Carvedilol [Coreg] 25 mg PO BID #60 tablet cloNIDine [Catapres] 0.3 mg PO TID 30 Days tablet Esomeprazole Magnesium [Nexium] 40 mg PO DAILY #30 capsule. Folic Acid/Vit B Comp W-C [Renal Caps] 1 cap PO QDAY #60 capsule hydrALAZINE [Apresoline TAB] 100 mg PO TID #90 tab oxyCODONE /ACETAMINOPHEN [Percocet 5/325 mg] 1 tab PO Q6H PRN #30 tablet PRN Reason: Pain, Moderate (4-6)
--- NOTE | 2018-03-27 15:07 | XRay Report ---
ROUTINE CHEST, TWO VIEWS: HISTORY: Shortness of breath. Moderate cardiomegaly, mild pulmonary venous congestion and small to medium bilateral pleural effusions are identified. These findings appear slightly improved since 03/15/18 exam. IMPRESSION: CHF.
--- NOTE | 2018-03-27 17:10 | Progress Note ---
Assessment and Plan Assessment and plan: 28 YO Male with ESRD on HD (T,R,Sa), HTN, GERD, Systolic CHF(EF 40%), Nicotine Dependence, Noncompliance, Chronic Respiratory Failure on 5-6L Home Oxygen via NC, pw sob -patient was fluid overloaded on presentation, he received HD and improved, he was counseled on improved adherence with his meds and HD -he was continued on oxygen during his hospital stay -he displayed pain med seeking behavior insisting on getting iv dilaudid, he was counseled and advised that it was not in his best interest -he was comanaged by Cardiology and nephrology who recommended conservative mgt, he improved and was dc -his meds were optimized for his chronic conditions -he was planned for dc home today, but he refused HD today and refused to be dc, Appeal of his dc was done through medicare diagnosis ESRD hyperkalemia fluid overload Acute on chronic hypoxic respiratory failure htn urgency Acute on chronic systolic CHF, ef 30 AOCD Non adherence with meds and HD pain med seeking behavior History Interval history: Review of systems Constitutional: No fevers, no malaise, no joint pains CVS: No chest pain, orthopnea and dyspnea on exertion are improved, no pedal edema GI: No abdominal pain, no diarrhea, no vomiting, no constipation Respiratory: No shortness of breath, no wheezing, no coughing Hospitalist Physical - Physical exam Narrative exam: General.: Appears well, no distress, nontoxic HEENT: Moist mucous membranes, extraocular muscles intact, no lymphadenopathy Neck: supple Cardiac: S1-S2 heard Lungs: Bibasilar crackles Abdomen: soft , nontender, nondistended, bowel sounds positive Extremities: no edema clubbing or cyanosis Skin: no rash or lesions Neurologic: no gross focal deficits Psych: calm, and cooperative - Constitutional Vitals: Temp Pulse Resp BP Pulse Ox 97.8 F 53 L 14 151/73 96 03/27/18 12:09 03/27/18 16:46 03/27/18 12:09 03/27/18 12:09 03/27/18 12:09 General appearance: Present: no acute distress, well-nourished Results - Labs CBC & Chem 7: 03/27/18 09:51 03/27/18 09:50 Labs: Laboratory Last Values WBC 5.8 K/mm3 (4.5-11.0) 03/27/18 09:51 RBC 2.99 M/mm3 (3.65-5.03) L 03/27/18 09:51 Hgb 8.6 gm/dl (11.8-15.2) L 03/27/18 09:51 Hct 27.5 % (35.5-45.6) L 03/27/18 09:51 MCV 92 fl (84-94) 03/27/18 09:51 MCH 29 pg (28-32) 03/27/18 09:51 MCHC 31 % (32-34) L 03/27/18 09:51 RDW 19.8 % (13.2-15.2) H 03/27/18 09:51 Plt Count 121 K/mm3 (140-440) L 03/27/18 09:51 Lymph % (Auto) 18.7 % (13.4-35.0) 03/27/18 09:51 [place] % (Auto) 7.3 % (0.0-7.3) 03/27/18 09:51 Eos % (Auto) 2.5 % (0.0-4.3) 03/27/18 09:51 Baso % (Auto) 1.2 % (0.0-1.8) 03/27/18 09:51 Lymph # 1.1 K/mm3 (1.2-5.4) L 03/27/18 09:51 [place] # 0.4 K/mm3 (0.0-0.8) 03/27/18 09:51 Eos # 0.1 K/mm3 (0.0-0.4) 03/27/18 09:51 Baso # 0.1 K/mm3 (0.0-0.1) 03/27/18 09:51 Seg Neutrophils % 70.3 % (40.0-70.0) H 03/27/18 09:51 Seg Neutrophils # 4.1 K/mm3 (1.8-7.7) 03/27/18 09:51 Sodium 139 mmol/L (137-145) 03/27/18 09:50 Potassium 5.4 mmol/L (3.6-5.0) H 03/27/18 09:50 Chloride 97.1 mmol/L (98-107) L 03/27/18 09:50 Carbon Dioxide 26 mmol/L (22-30) 03/27/18 09:50 Anion Gap 21 mmol/L 03/27/18 09:50 BUN 56 mg/dL (9-20) H 03/27/18 09:50 Creatinine 7.4 mg/dL (0.8-1.5) H 03/27/18 09:50 Estimated GFR 9 ml/min 03/27/18 09:50 BUN/Creatinine Ratio 8 % 03/27/18 09:50 Glucose 99 mg/dL (75-100) 03/27/18 09:50 Calcium 8.3 mg/dL (8.4-10.2) L 03/27/18 09:50 Phosphorus 6.70 mg/dL (2.5-4.5) H 03/27/18 09:50 Total Bilirubin 0.40 mg/dL (0.1-1.2) 03/27/18 09:50 AST 16 units/L (5-40) 03/27/18 09:50 ALT 8 units/L (7-56) 03/27/18 09:50 Alkaline Phosphatase 82 units/L (35-129) 03/27/18 09:50 Troponin T 0.377 ng/mL (0.00-0.029) H* 03/25/18 13:01 NT-Pro-B Natriuret Pep > 39642 pg/mL (0-450) H 03/25/18 21:11 Total Protein 7.6 g/dL (6.3-8.2) 03/27/18 09:50 Albumin 3.4 g/dL (3.9-5) L 03/27/18 09:50 Albumin/Globulin Ratio 0.8 % 03/27/18 09:50 Triglycerides 53 mg/dL (2-149) 03/25/18 13:01 Cholesterol 96 mg/dL (50-199) 03/25/18 13:01 LDL Cholesterol Direct 45 mg/dL (50-130) L 03/25/18 13:01 HDL Cholesterol 44 mg/dL (40-59) 03/25/18 13:01 Cholesterol/HDL Ratio 2.18 % 03/25/18 13:01 PTH Intact 220.3 pg/mL (15-65) H 03/27/18 09:50 Nutrition/Malnutrition Assess - Dietary Evaluation Nutrition/Malnutrition Findings: Nutrition Notes Start: 03/27/18 14:33 Freq: Status: Active Protocol: Document 03/27/18 14:33 RM (Rec: 03/27/18 14:34 RM [id number]) Nutrition Notes Need for Assessment generated from: dog bather Initial or Follow up Brief Note Subjective/Other Information Pt screened for skin risk. Andres 20 points. Nutrition Intervention Revisit per MD consult or patient Sign Off request:
[2018-03-27] MEDS: DESYREL PO SCH (23:00)
[2018-03-27] MEDS: TYLENOL PO PRN (23:49)
--- NOTE | 2018-03-28 09:16 | Progress Note ---
Subjective Interval history: Patient was seen today for follow-up on multiple renal related issues Patient was advised to get dialysis yesterday but he refused t Patient denies having any chest pain pressure or shortness of breath Vitals labs intake output medications were reviewed Social history: Reviewed Allergies: Reviewed Family history: Reviewed Physical examination HEENT: Oral mucosa moist no pallor or icterus Neck: Supple no JVD Chest: Clear to auscultation anteriorly CVS: Regular rate and rhythm S1 and S2 heard Abdomen: Soft nontender no suprapubic masses no organomegaly appreciable Extremity: Dry skin less than 1+ peripheral edema Musculoskeletal: No joint effusion noted in knees and ankle Neurological: Alert awake Dermatology: No petechial rashes Psychiatry: No evidence of any agitation and aggression noted Assessment and plan End-stage renal disease: Patient is currently on maintenance hemodialysis we will monitor give him dialysis treatment yesterday but patient refused he will now continue with hemodialysis on Tuesday schedule with same orders Noncompliance: Fluid overload patient does not comply with diet lifestyle has a very poor support system: Patient will need to be seen and followed by the director of social work Anemia in end-stage renal disease: To monitor and follow Severe cardiomyopathy discussed with Dr. Naranjo patient will need to see him in the office for follow-up Anemia in end-stage renal disease some of this is also nutritional as well current hemoglobin 8.6 she will need erythropoietin on an ongoing basis Some drop in platelet count please follow-up tomorrow Abnormal troponin patient has been evaluated by cardiology Mild hyperkalemia will do dialysis today and will need follow-up labs tomorrow morning, Pertinent lab findings were discussed with patient, patient does exhibit good understanding of renal issues We'll continue to follow and make recommendation from renal standpoint Objective - Vital Signs Vital signs: Vital Signs - 12hr 03/27/18 03/27/18 03/28/18 22:00 23:00 00:07 Temperature 97.8 F Pulse Rate 57 L 58 L Pulse Rate [ 58 L Left Radial] Respiratory 16 20 Rate Blood Pressure 161/86 169/91 O2 Sat by Pulse 98 98 Oximetry 03/28/18 06:22 Temperature 97.8 F Pulse Rate 57 L Pulse Rate [ Left Radial] Respiratory 20 Rate Blood Pressure 147/71 O2 Sat by Pulse 94 Oximetry - Lab 03/27/18 09:51 03/27/18 09:50 Most recent lab results Calcium 8.3 mg/dL (8.4-10.2) L 03/27/18 09:50 Phosphorus 6.70 mg/dL (2.5-4.5) H 03/27/18 09:50 Medications & Allergies - Medications Allergies/Adverse Reactions: Allergies heparin Allergy (Verified 02/22/18 18:35) lowers platelets Home Medications: Home Medications Medication Instructions Recorded Confirmed Last Taken Type Aspirin EC [Aspirin Enteric Coated 81 mg PO QDAY #30 tablet. 03/27/18 Unknown Rx TAB] AtorvaSTATin [Lipitor] 40 mg PO QHS #30 tab 03/27/18 Unknown Rx Carvedilol [Coreg] 25 mg PO BID #60 tablet 03/27/18 Unknown Rx Esomeprazole Magnesium [Nexium] 40 mg PO DAILY #30 capsule. 03/27/18 Unknown Rx Folic Acid/Vit B Comp W-C [Renal 1 cap PO QDAY #60 capsule 03/27/18 Unknown Rx Caps] cloNIDine [Catapres] 0.3 mg PO TID 30 Days tablet 03/27/18 Unknown Rx hydrALAZINE [Apresoline TAB] 100 mg PO TID #90 tab 03/27/18 Unknown Rx traZODone [Desyrel] 100 mg PO QHS #30 tablet 03/27/18 Unknown Rx Active Medications: Generic Name Dose Route Start Last Admin Trade Name Freq PRN Reason Stop Dose Admin Acetaminophen 650 mg 03/25/18 15:38 03/27/18 23:49 Tylenol PO 650 mg Q4H PRN Administration Pain MILD(1-3)/Fever >100.5/JENKINS Albuterol 2.5 mg 03/25/18 15:38 Proventil IH Q4H PRN Shortness Of Breath Aspirin 81 mg 03/26/18 10:00 03/27/18 10:06 Halfprin Ec PO 81 mg QDAY CHONG Administration Atorvastatin Calcium 40 mg 03/25/18 22:00 03/27/18 23:00 Lipitor PO 40 mg QHS CHONG Administration Carvedilol 25 mg 03/25/18 22:00 03/27/18 23:00 Coreg PO 25 mg BID CHONG Administration Cholecalciferol 2,000 unit 03/26/18 10:00 03/27/18 10:06 Vitamin D3 PO 2,000 unit QDAY CHONG Administration Clonidine HCl 0.3 mg 03/25/18 20:00 03/27/18 21:00 Catapres PO 0.3 mg TID CHONG Administration Hydralazine HCl 100 mg 03/25/18 20:00 03/27/18 21:00 Apresoline PO 100 mg TID CHONG Administration Sodium Chloride 100 mls @ 999 mls/hr 03/25/18 15:42 Nacl 0.9% IV APRIL PRN Hypotension Sodium Chloride 100 mls @ 999 mls/hr 03/27/18 09:18 Nacl 0.9% IV PARIL PRN Hypotension Multivit/Ca Carb/B Cmplx/FA/Prenat 1 cap 03/26/18 10:00 03/27/18 10:05 Renal Caps PO 1 cap QDAY CHONG Administration Ondansetron HCl 4 mg 03/25/18 15:38 Zofran IV Q8H PRN Nausea And Vomiting Pantoprazole Sodium 40 mg 03/26/18 10:00 03/27/18 10:06 Protonix PO 40 mg DAILY CHONG Administration Sodium Chloride 10 ml 03/25/18 22:00 03/27/18 23:00 Sodium Chloride Flush Syringe 10 Ml IV 10 ml BID CHONG Administration Sodium Chloride 10 ml 03/25/18 15:38 Sodium Chloride Flush Syringe 10 Ml IV PRN PRN LINE FLUSH Trazodone HCl 100 mg 03/25/18 22:00 03/27/18 23:00 Desyrel PO 100 mg QHS CHONG Administration
[2018-03-28] MEDS ORDERED: NACL 0.9 (PRIMING MACHINE ONLY DIALYSIS) MC ONE (09:24)
[2018-03-28] MEDS: APRESOLINE PO SCH ×3 (10:39→16:31)
[2018-03-28] MEDS: CATAPRES PO SCH ×3 (10:40→16:31)
--- NOTE | 2018-03-28 11:54 | Progress Note ---
Assessment and Plan Assessment and plan: 28 YO Male with ESRD on HD (T,R,Sa), HTN, GERD, Systolic CHF(EF 40%), Nicotine Dependence, Noncompliance, Chronic Respiratory Failure on 5-6L Home Oxygen via [place], pw sob -patient was fluid overloaded on presentation, he received HD and improved, he was counseled on improved adherence with his meds and HD -he was continued on oxygen during his hospital stay -he displayed pain med seeking behavior insisting on getting iv dilaudid, he was counseled and advised that it was not in his best interest -he was comanaged by Cardiology and nephrology who recommended conservative mgt, he improved and was dc -his meds were optimized for his chronic conditions -he was planned for dc home today, but he refused HD yesterday, agreed to do it today, and refused to be dc, Appeal of his dc was done through medicare diagnosis ESRD hyperkalemia fluid overload Acute on chronic hypoxic respiratory failure htn urgency Acute on chronic systolic CHF, ef 30 AOCD Non adherence with meds and HD pain med seeking behavior History Interval history: Review of systems Constitutional: No fevers, no malaise, no joint pains CVS: No chest pain, orthopnea and dyspnea on exertion are improved, no pedal edema GI: No abdominal pain, no diarrhea, no vomiting, no constipation Respiratory: No shortness of breath, no wheezing, no coughing Hospitalist Physical - Physical exam Narrative exam: General.: Appears well, no distress, nontoxic HEENT: Moist mucous membranes, extraocular muscles intact, no lymphadenopathy Neck: supple Cardiac: S1-S2 heard Lungs: Bibasilar crackles Abdomen: soft , nontender, nondistended, bowel sounds positive Extremities: no edema clubbing or cyanosis Skin: no rash or lesions Neurologic: no gross focal deficits Psych: calm, and cooperative - Constitutional Vitals: Temp Pulse Resp BP Pulse Ox 97.8 F 57 L 20 147/71 94 03/28/18 06:22 03/28/18 06:22 03/28/18 06:22 03/28/18 06:22 03/28/18 06:22 General appearance: Present: no acute distress, well-nourished Results - Labs CBC & Chem 7: 03/27/18 09:51 03/27/18 09:50 Labs: Laboratory Last Values WBC 5.8 K/mm3 (4.5-11.0) 03/27/18 09:51 RBC 2.99 M/mm3 (3.65-5.03) L 03/27/18 09:51 Hgb 8.6 gm/dl (11.8-15.2) L 03/27/18 09:51 Hct 27.5 % (35.5-45.6) L 03/27/18 09:51 MCV 92 fl (84-94) 03/27/18 09:51 MCH 29 pg (28-32) 03/27/18 09:51 MCHC 31 % (32-34) L 03/27/18 09:51 RDW 19.8 % (13.2-15.2) H 03/27/18 09:51 Plt Count 121 K/mm3 (140-440) L 03/27/18 09:51 Lymph % (Auto) 18.7 % (13.4-35.0) 03/27/18 09:51 [place] % (Auto) 7.3 % (0.0-7.3) 03/27/18 09:51 Eos % (Auto) 2.5 % (0.0-4.3) 03/27/18 09:51 Baso % (Auto) 1.2 % (0.0-1.8) 03/27/18 09:51 Lymph # 1.1 K/mm3 (1.2-5.4) L 03/27/18 09:51 [place] # 0.4 K/mm3 (0.0-0.8) 03/27/18 09:51 Eos # 0.1 K/mm3 (0.0-0.4) 03/27/18 09:51 Baso # 0.1 K/mm3 (0.0-0.1) 03/27/18 09:51 Seg Neutrophils % 70.3 % (40.0-70.0) H 03/27/18 09:51 Seg Neutrophils # 4.1 K/mm3 (1.8-7.7) 03/27/18 09:51 Sodium 139 mmol/L (137-145) 03/27/18 09:50 Potassium 5.4 mmol/L (3.6-5.0) H 03/27/18 09:50 Chloride 97.1 mmol/L (98-107) L 03/27/18 09:50 Carbon Dioxide 26 mmol/L (22-30) 03/27/18 09:50 Anion Gap 21 mmol/L 03/27/18 09:50 BUN 56 mg/dL (9-20) H 03/27/18 09:50 Creatinine 7.4 mg/dL (0.8-1.5) H 03/27/18 09:50 Estimated GFR 9 ml/min 03/27/18 09:50 BUN/Creatinine Ratio 8 % 03/27/18 09:50 Glucose 99 mg/dL (75-100) 03/27/18 09:50 Calcium 8.3 mg/dL (8.4-10.2) L 03/27/18 09:50 Phosphorus 6.70 mg/dL (2.5-4.5) H 03/27/18 09:50 Total Bilirubin 0.40 mg/dL (0.1-1.2) 03/27/18 09:50 AST 16 units/L (5-40) 03/27/18 09:50 ALT 8 units/L (7-56) 03/27/18 09:50 Alkaline Phosphatase 82 units/L (35-129) 03/27/18 09:50 Troponin T 0.377 ng/mL (0.00-0.029) H* 03/25/18 13:01 NT-Pro-B Natriuret Pep > 18351 pg/mL (0-450) H 03/25/18 21:11 Total Protein 7.6 g/dL (6.3-8.2) 03/27/18 09:50 Albumin 3.4 g/dL (3.9-5) L 03/27/18 09:50 Albumin/Globulin Ratio 0.8 % 03/27/18 09:50 Triglycerides 53 mg/dL (2-149) 03/25/18 13:01 Cholesterol 96 mg/dL (50-199) 03/25/18 13:01 LDL Cholesterol Direct 45 mg/dL (50-130) L 03/25/18 13:01 HDL Cholesterol 44 mg/dL (40-59) 03/25/18 13:01 Cholesterol/HDL Ratio 2.18 % 03/25/18 13:01 PTH Intact 220.3 pg/mL (15-65) H 03/27/18 09:50 Nutrition/Malnutrition Assess - Dietary Evaluation Nutrition/Malnutrition Findings: Nutrition Notes Start: 03/27/18 14:33 Freq: Status: Active Protocol: Document 03/27/18 14:33 RM (Rec: 03/27/18 14:34 RM [id number]) Nutrition Notes 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 Andres 20 points. Nutrition Intervention Revisit per MD consult or patient Sign Off request:
--- NOTE | 2018-03-28 12:50 | Progress Note ---
Addendum entered and electronically signed by CARINA SCHROEDER MD 03/28/18 13:26: Conservative cardiac medical therapy. Original Note: Assessment and Plan Volume overload Hyperkalemia ESRD on dialysis Hypertension Anemia Non-ischemic cardiomyopathy [facility] 07/2017: no significant coronary artery disease but a decreased left ventricular ejection fraction 15-20%. Hx of Ascities Recommendations: Salt/fluid restricted diet. Dialysis for fluid management. Continue medical therapy for his non-ischemic cardiomyopathy and chronic systolic heart failure. Subjective Date of service: 03/28/18 Interval history: Patient has no cardiac complaints. Objective Vital Signs Temp Pulse Pulse Resp BP Pulse Ox 03/28/18 11:30 64 158/86 03/28/18 11:15 60 155/85 03/28/18 11:00 60 155/77 03/28/18 10:45 64 152/78 03/28/18 10:30 63 156/80 03/28/18 10:15 62 160/76 03/28/18 10:00 63 164/79 03/28/18 09:45 62 158/78 03/28/18 09:30 57 L 159/75 03/28/18 09:10 97.8 F 59 L 18 170/88 03/28/18 06:22 97.8 F 57 L 20 147/71 94 03/28/18 00:07 97.8 F 58 L 20 169/91 98 03/27/18 23:00 57 L 161/86 03/27/18 22:00 58 L 16 98 03/27/18 21:00 57 L 161/86 03/27/18 16:46 53 L 03/27/18 16:45 17 158/82 - Physical Examination General: No Apparent Distress HEENT: Positive: PERRL Neck: Positive: trachea midline Cardiac: Positive: Reg Rate and Rhythm Lungs: Positive: Decreased Breath Sounds Neuro: Positive: Grossly Intact Abdomen: Positive: Soft, Active Bowel Sounds Extremities: Absent: edema
[2018-03-28] MEDS: COREG PO SCH (16:11)
[2018-03-28 16:27] VITALS: BP 160/74
[2018-03-28] MEDS: Renal Caps PO SCH (16:30)
[2018-03-28] MEDS: PROTONIX PO SCH (16:31)
[2018-03-28] MEDS: VITAMIN D3 PO SCH (16:31)
[2018-03-28] MEDS: HALFPRIN EC PO SCH (16:31)
[2018-03-28] MEDS: SODIUM CHLORIDE FLUSH SYRINGE 10 ML IV SCH (16:32)
== END 2018-03-28 17:06 | disposition home or self-care (01) | DRG 291 ==
LOC: ED 12:32 → 3A 15:35
PROVIDERS: ADMIT Internal Medicine; ATTEND Internal Medicine
PROC: 5A1D70Z Performance of Urinary Filtration, Intermittent, Less than 6 Hours Per Day (ICD-10-PCS; principal; 2018-03-25)
PROC: 5A1D70Z Performance of Urinary Filtration, Intermittent, Less than 6 Hours Per Day (ICD-10-PCS; 2018-03-28)
DX: I13.2 Hypertensive heart and chronic kidney disease with heart failure and with stage 5 chronic kidney disease, or end stage renal disease (principal); I50.23 Acute on chronic systolic (congestive) heart failure; J96.21 Acute and chronic respiratory failure with hypoxia; N18.6 End stage renal disease; R18.8 Other ascites; N25.81 Secondary hyperparathyroidism of renal origin; I42.9 Cardiomyopathy, unspecified; E87.5 Hyperkalemia; I16.0 Hypertensive urgency; E87.70 Fluid overload, unspecified; D63.1 Anemia in chronic kidney disease; F17.210 Nicotine dependence, cigarettes, uncomplicated; K21.9 Gastro-esophageal reflux disease without esophagitis; Z99.2 Dependence on renal dialysis; Z82.49 Family history of ischemic heart disease and other diseases of the circulatory system; Z90.89 Acquired absence of other organs; Z88.6 Allergy status to analgesic agent; Z79.51 Long term (current) use of inhaled steroids; Z79.82 Long term (current) use of aspirin; Z91.19 Patient's noncompliance with other medical treatment and regimen; Z91.15 Patient's noncompliance with renal dialysis
CPT/HCPCS: 36415; 71046; 80048; 80053; 80061; 83880; 83970; 84100; 84484; 85025; 87116; 93005; 93010; 94760; 96374; 96375; G0378; A9270-GY; J1170; J2405; J7030

== ENCOUNTER 2018-04-11 12:43 | Inpatient (IN) | payer MEDICARE ==
[2018-04-11] MEDS ORDERED: DILAUDID IV ONE ×2 (12:59→16:45)
--- NOTE | 2018-04-11 13:16 | Emergency Department Report ---
ED Shortness of Breath HPI - General Chief Complaint: Dyspnea/Respdistress Stated Complaint: MARCO/SOB Time Seen by Provider: 04/11/18 12:54 Source: patient, EMS Mode of arrival: Stretcher Limitations: No Limitations - History of Present Illness Initial Comments: Patient is a 28-year-old male with past medical history of hypertension and end-stage renal disease who has dialysis on Tuesday and Tuesday who is complaining of shortness of breath. Patient states for the last 2 months he's had some increased bouts of dyspnea and fluid overload. Patient believes that his dialysis is not taking enough fluid off of him. Patient states that approximately one week ago he had to have a thoracentesis bilateral to remove a liter and a half of fluid. Patient states he went to dialysis today and was turned away because his O2 sat was in the high 70s despite being on oxygen. Patient states his oxygen canister only delivers oxygen when he breathes in. Patient's O2 sat increased after paramedics picked the patient up. Patient states he has some generalized aches and pains in his bilateral legs which are swollen and his lower back and chest. Patient's states he has a mild cough but no fever nausea vomiting. - Related Data Previous Rx's Medication Instructions Recorded Last Taken Type Aspirin EC [Aspirin Enteric Coated 81 mg PO QDAY #30 tablet. 03/27/18 Unknown Rx TAB] AtorvaSTATin [Lipitor] 40 mg PO QHS #30 tab 03/27/18 Unknown Rx Carvedilol [Coreg] 25 mg PO BID #60 tablet 03/27/18 Unknown Rx Esomeprazole Magnesium [Nexium] 40 mg PO DAILY #30 capsule. 03/27/18 Unknown Rx Folic Acid/Vit B Comp W-C [Renal 1 cap PO QDAY #60 capsule 03/27/18 Unknown Rx Caps] cloNIDine [Catapres] 0.3 mg PO TID 30 Days tablet 03/27/18 Unknown Rx hydrALAZINE [Apresoline TAB] 100 mg PO TID #90 tab 03/27/18 Unknown Rx traZODone [Desyrel] 100 mg PO QHS #30 tablet 03/27/18 Unknown Rx Allergies Allergy/AdvReac Type Severity Reaction Status Date / Time heparin Allergy lowers Verified 04/11/18 13:08 platelets ED Review of Systems ROS: Stated complaint: MARCO/SOB Other details as noted in HPI Comment: All other systems reviewed and negative ED Past Medical Hx - Past Medical History Previous Medical History?: Yes Hx Hypertension: Yes Hx Heart Attack/AMI: No Hx Congestive Heart Failure: Yes (4LPM at home) Hx Diabetes: No Hx Deep Vein Thrombosis: No Hx GERD: Yes Hx Renal Disease: Yes Hx Arthritis: Yes (SPINE) Hx Asthma: No Hx COPD: No Hx Tuberculosis: No Hx Dementia: No Hx HIV: No Additional medical history: Hidradenitis, EJF 40%, enlarged heart - Surgical History Past Surgical History?: Yes Hx Pacemaker: No Additional Surgical History: PD CATHETER - AND REMOVAL. AV FISTULA. LYMPH NODES REMOVED LEFT GROIN. TONSILLECTOMY. Patient does have a history of peritonitis with previous PD - Social History Smoking Status: Current Every Day Smoker Substance Use Type: None - Medications Home Medications: Home Medications Medication Instructions Recorded Confirmed Last Taken Type Aspirin EC [Aspirin Enteric Coated 81 mg PO QDAY #30 tablet. 03/27/18 Unknown Rx TAB] AtorvaSTATin [Lipitor] 40 mg PO QHS #30 tab 03/27/18 Unknown Rx Carvedilol [Coreg] 25 mg PO BID #60 tablet 03/27/18 Unknown Rx Esomeprazole Magnesium [Nexium] 40 mg PO DAILY #30 capsule. 03/27/18 Unknown Rx Folic Acid/Vit B Comp W-C [Renal 1 cap PO QDAY #60 capsule 03/27/18 Unknown Rx Caps] cloNIDine [Catapres] 0.3 mg PO TID 30 Days tablet 03/27/18 Unknown Rx hydrALAZINE [Apresoline TAB] 100 mg PO TID #90 tab 03/27/18 Unknown Rx traZODone [Desyrel] 100 mg PO QHS #30 tablet 03/27/18 Unknown Rx ED Physical Exam - General Limitations: No Limitations General appearance: alert, in no apparent distress - Head Head exam: Present: atraumatic, normocephalic - Eye Eye exam: Present: normal appearance - ENT ENT exam: Present: mucous membranes moist - Neck Neck exam: Present: normal inspection - Respiratory Respiratory exam: Present: normal lung sounds bilaterally, rales. Absent: respiratory distress, wheezes, rhonchi - Cardiovascular Cardiovascular Exam: Present: regular rate, normal rhythm, normal heart sounds. Absent: systolic murmur, diastolic murmur, rubs, gallop - GI/Abdominal GI/Abdominal exam: Present: soft, normal bowel sounds. Absent: distended, tenderness, guarding, rebound - Rectal Rectal exam: Present: deferred - Extremities Exam Extremities exam: Present: normal inspection, joint swelling - Back Exam Back exam: Present: normal inspection - Neurological Exam Neurological exam: Present: alert, oriented X3 - Psychiatric Psychiatric exam: Present: normal affect, normal mood - Skin Skin exam: Present: warm, dry, intact, normal color. Absent: rash ED Course Vital Signs 04/11/18 04/11/18 04/11/18 13:00 13:02 13:30 Temperature 97.6 F Pulse Rate 70 69 71 Respiratory 34 H 16 25 H Rate Blood Pressure 172/103 178/101 172/103 O2 Sat by Pulse 95 94 96 Oximetry 04/11/18 04/11/18 14:00 14:14 Temperature Pulse Rate 73 Respiratory 22 16 Rate Blood Pressure 183/111 O2 Sat by Pulse 96 94 Oximetry ED Medical Decision Making - Lab Data Result diagrams: 04/11/18 13:13 04/11/18 13:13 Lab Results 04/11/18 04/11/18 04/11/18 Range/Units 13:13 13:13 13:13 WBC 7.8 (4.5-11.0) K/mm3 RBC 3.03 L (3.65-5.03) M/mm3 Hgb 8.7 L (11.8-15.2) gm/dl Hct 27.8 L (35.5-45.6) % MCV 92 (84-94) fl MCH 29 (28-32) pg MCHC 31 L (32-34) % RDW 19.4 H (13.2-15.2) % Plt Count 160 (140-440) K/mm3 Lymph % (Auto) 16.1 (13.4-35.0) % [place] % (Auto) 8.2 H (0.0-7.3) % Eos % (Auto) 4.0 (0.0-4.3) % Baso % (Auto) 1.9 H (0.0-1.8) % Lymph # 1.3 (1.2-5.4) K/mm3 [place] # 0.6 (0.0-0.8) K/mm3 Eos # 0.3 (0.0-0.4) K/mm3 Baso # 0.1 (0.0-0.1) K/mm3 Seg Neutrophils % 69.8 (40.0-70.0) % Seg Neutrophils # 5.4 (1.8-7.7) K/mm3 PT 16.0 H (12.2-14.9) Sec. INR 1.24 H (0.87-1.13) APTT 31.6 (24.2-36.6) Sec. Sodium 140 (137-145) mmol/L Potassium 5.5 H (3.6-5.0) mmol/L Chloride 103.0 (98-107) mmol/L Carbon Dioxide 23 (22-30) mmol/L Anion Gap 20 mmol/L BUN 49 H (9-20) mg/dL Creatinine 6.5 H (0.8-1.5) mg/dL Estimated GFR 10 ml/min BUN/Creatinine Ratio 8 % Glucose 75 (75-100) mg/dL Calcium 8.5 (8.4-10.2) mg/dL Troponin T 0.329 H* (0.00-0.029) ng/mL Triglycerides 34 (2-149) mg/dL Cholesterol 78 (50-199) mg/dL LDL Cholesterol Direct 28 L (50-130) mg/dL HDL Cholesterol 49 (40-59) mg/dL Cholesterol/HDL Ratio 1.59 % - Radiology Data Compared to chest x-ray from 03/25/2018 the patient has persistent cardiomegaly with pulmonary venous congestion and a moderate to large bilateral pleural effusions. This is slightly larger than seen on previous cell. - Medical Decision Making She is a 28-year-old male who is here secondary to hypoxia and fluid overload in particular his lungs. Patient's pleural effusions are larger than on his previous studies. Patient be admitted to the hospital under Dr. Venegas Critical Care Time: Yes (30) Critical care attestation.: If time is entered above; I have spent that time in minutes in the direct care of this critically ill patient, excluding procedure time. ED Disposition Clinical Impression: CKD (chronic kidney disease), Elevated troponin, Ascites, ESRD needing dialysis, Hypertensive emergency, Pleural effusion Disposition: OP ADMIT IP TO THIS HOSP Is pt being admited?: Yes Does the pt Need Aspirin: Yes Condition: Poor Instructions: Hypertension (ED) Time of Disposition: 14:25
[2018-04-11 13:20] LABS: Basophils # (Auto) 0.1 K/mm3 (0.0-0.1); Basophils % (Auto) 1.9 % (0.0-1.8); Eosinophils # (Auto) 0.3 K/mm3 (0.0-0.4); Hematocrit 27.8 % (35.5-45.6); Hemoglobin 8.7 gm/dl (11.8-15.2); Lymphocytes # (Auto) 1.3 K/mm3 (1.2-5.4); Lymphocytes % (Auto) 16.1 % (13.4-35.0); Mean Corpuscular HGB Conc 31 % (32-34); Mean Corpuscular Volume 92 fl (84-94); Monocytes # (Auto) 0.6 K/mm3 (0.0-0.8); Monocytes % (Auto) 8.2 % (0.0-7.3); Platelet Count 160 K/mm3 (140-440); Red Blood Count 3.03 M/mm3 (3.65-5.03); Red Cell Distribution Width 19.4 % (13.2-15.2)
[2018-04-11 13:31] LABS: INR 1.24 (0.87-1.13)
[2018-04-11 13:32] LABS: Partial Thromboplastin Time 31.6 Sec. (24.2-36.6)
[2018-04-11 13:35] LABS: Calcium 8.5 mg/dL (8.4-10.2)
[2018-04-11 13:52] LABS: Chol/HDL Ratio 1.59 %
--- NOTE | 2018-04-11 14:01 | XRay Report ---
AP CHEST: HISTORY: Dyspnea Compared to 03/25/18. Cardiomegaly, pulmonary venous congestion a moderate to large bilateral pleural effusions are identified. The left pleural effusion is slightly larger. There is compressive atelectasis at both lung bases. IMPRESSION: CHF.
[2018-04-11] MEDS ORDERED: NITRO-BID 2% TP ONE (14:26)
[2018-04-11] MEDS ORDERED: DILAUDID ONE (16:51)
[2018-04-11] MEDS: PERCOCET 5/325 PO PRN (22:17)
--- NOTE | 2018-04-12 00:13 | History and Physical Report ---
History of Present Illness Date of examination: 04/11/18 Date of admission: 04/11/18 14:26 Chief complaint: Increasing SOB 2 days History of present illness: 28-year-old male with past medical history of hypertension and end- stage renal disease who has dialysis on Tuesday and Tuesday comes in for increasing shortness of breath. Patient sats were in high 70's today at dialysis center and was sent to ER for eval.Patient had a recent thoracentesis and 1.5 oiters of fluid was drained.No fever or chills.Patient feels that he is volume overloaded because of decreased dialysis/Orthopnea and SOB on minimal exertion present Past Medical History Previous Medical History?: Yes Hypertension: Yes Congestive Heart Failure: Yes (4LPM at home) Gerd Yes Renal Disease: Yes Arthritis: Yes (SPINE) Additional medical history: Hidradenitis, EJF 40%, enlarged heart - Surgical History Past Surgical History?: Yes Hx Pacemaker: No Additional Surgical History: PD CATHETER - AND REMOVAL. AV FISTULA. LYMPH NODES REMOVED LEFT GROIN. TONSILLECTOMY. Patient does have a history of peritonitis with previous PD - Social History Smoking Status: Current Every Day Smoker Substance Use Type: None Family History Htn - Medications Home Medications: Home Medications Medication Instructions Recorded Confirmed Last Taken Type Aspirin EC [Aspirin Enteric Coated 81 mg PO QDAY #30 tablet. 03/27/18 Unknown Rx TAB] AtorvaSTATin [Lipitor] 40 mg PO QHS #30 tab 03/27/18 Unknown Rx Carvedilol [Coreg] 25 mg PO BID #60 tablet 03/27/18 Unknown Rx Esomeprazole Magnesium [Nexium] 40 mg PO DAILY #30 capsule. 03/27/18 Unknown Rx Folic Acid/Vit B Comp W-C [Renal 1 cap PO QDAY #60 capsule 03/27/18 Unknown Rx Caps] cloNIDine [Catapres] 0.3 mg PO TID 30 Days tablet 03/27/18 Unknown Rx hydrALAZINE [Apresoline TAB] 100 mg PO TID #90 tab 03/27/18 Unknown Rx traZODone [Desyrel] 100 mg PO QHS #30 tablet 03/27/18 Unknown Rx Review of Systems ROS: Stated complaint: MARCO/SOB Other details as noted in HPI Comment: All other systems reviewed and negative Medications and Allergies Allergies Allergy/AdvReac Type Severity Reaction Status Date / Time heparin Allergy lowers Verified 04/11/18 13:08 platelets Home Medications Medication Instructions Recorded Confirmed Last Taken Type Aspirin EC [Aspirin Enteric Coated 81 mg PO QDAY #30 tablet. 03/27/18 04/11/18 Unknown Rx TAB] AtorvaSTATin [Lipitor] 40 mg PO QHS #30 tab 03/27/18 04/11/18 Unknown Rx Carvedilol [Coreg] 25 mg PO BID #60 tablet 03/27/18 04/11/18 Unknown Rx Esomeprazole Magnesium [Nexium] 40 mg PO DAILY #30 capsule. 03/27/18 04/11/18 Unknown Rx Folic Acid/Vit B Comp W-C [Renal 1 cap PO QDAY #60 capsule 03/27/18 04/11/18 Unknown Rx Caps] cloNIDine [Catapres] 0.3 mg PO TID 30 Days tablet 03/27/18 04/11/18 Unknown Rx hydrALAZINE [Apresoline TAB] 100 mg PO TID #90 tab 03/27/18 04/11/18 Unknown Rx traZODone [Desyrel] 100 mg PO QHS #30 tablet 03/27/18 04/11/18 Unknown Rx NIFEdipine [Adalat cc] 90 mg PO BID 04/11/18 04/11/18 Unknown History Active Meds: Active Medications Oxycodone/Acetaminophen (Percocet 5/325) 1 tab PO Q4H PRN PRN Reason: Pain, Moderate (4-6) Last Admin: 04/11/18 22:17 Dose: 1 tab Documented by: Exam - Constitutional Vitals: Temp Pulse Resp BP Pulse Ox 97.6 F 66 18 172/90 98 04/11/18 17:53 04/11/18 20:00 04/11/18 17:53 04/11/18 17:53 04/11/18 20:57 General appearance: Present: mild distress, well-nourished - EENT Eyes: Present: PERRL ENT: hearing intact, clear oral mucosa - Neck Neck: Present: supple, normal ROM - Respiratory Respiratory effort: normal Respiratory: bilateral: CTA, rales - Cardiovascular Heart rate: 78 Rhythm: regular Heart Sounds: Present: S1 & S2. Absent: rub, click - Extremities Extremities: no ischemia, pulses intact, pulses symmetrical, No edema Peripheral Pulses: within normal limits - Abdominal General gastrointestinal: Present: soft, non-tender, non-distended, normal bowel sounds Male genitourinary: Present: normal - Integumentary Integumentary: Present: clear, warm, dry - Musculoskeletal Musculoskeletal: gait normal, strength equal bilaterally - Psychiatric Psychiatric: appropriate mood/affect, intact judgment & insight - Neurologic Neurologic: CNII-XII intact, moves all extremities - Allied Health Allied health notes reviewed: nursing, case management Results - Labs CBC & Chem 7: 04/11/18 13:13 04/11/18 13:13 Labs: Laboratory Last Values WBC 7.8 K/mm3 (4.5-11.0) 04/11/18 13:13 RBC 3.03 M/mm3 (3.65-5.03) L 04/11/18 13:13 Hgb 8.7 gm/dl (11.8-15.2) L 04/11/18 13:13 Hct 27.8 % (35.5-45.6) L 04/11/18 13:13 MCV 92 fl (84-94) 04/11/18 13:13 MCH 29 pg (28-32) 04/11/18 13:13 MCHC 31 % (32-34) L 04/11/18 13:13 RDW 19.4 % (13.2-15.2) H 04/11/18 13:13 Plt Count 160 K/mm3 (140-440) 04/11/18 13:13 Lymph % (Auto) 16.1 % (13.4-35.0) 04/11/18 13:13 Branch % (Auto) 8.2 % (0.0-7.3) H 04/11/18 13:13 Eos % (Auto) 4.0 % (0.0-4.3) 04/11/18 13:13 Baso % (Auto) 1.9 % (0.0-1.8) H 04/11/18 13:13 Lymph # 1.3 K/mm3 (1.2-5.4) 04/11/18 13:13 Branch # 0.6 K/mm3 (0.0-0.8) 04/11/18 13:13 Eos # 0.3 K/mm3 (0.0-0.4) 04/11/18 13:13 Baso # 0.1 K/mm3 (0.0-0.1) 04/11/18 13:13 Seg Neutrophils % 69.8 % (40.0-70.0) 04/11/18 13:13 Seg Neutrophils # 5.4 K/mm3 (1.8-7.7) 04/11/18 13:13 PT 16.0 Sec. (12.2-14.9) H 04/11/18 13:13 INR 1.24 (0.87-1.13) H 04/11/18 13:13 APTT 31.6 Sec. (24.2-36.6) 04/11/18 13:13 Sodium 140 mmol/L (137-145) 04/11/18 13:13 Potassium 5.5 mmol/L (3.6-5.0) H 04/11/18 13:13 Chloride 103.0 mmol/L (98-107) 04/11/18 13:13 Carbon Dioxide 23 mmol/L (22-30) 04/11/18 13:13 Anion Gap 20 mmol/L 04/11/18 13:13 BUN 49 mg/dL (9-20) H 04/11/18 13:13 Creatinine 6.5 mg/dL (0.8-1.5) H 04/11/18 13:13 Estimated GFR 10 ml/min 04/11/18 13:13 BUN/Creatinine Ratio 8 % 04/11/18 13:13 Glucose 75 mg/dL (75-100) 04/11/18 13:13 Calcium 8.5 mg/dL (8.4-10.2) 04/11/18 13:13 Troponin T 0.329 ng/mL (0.00-0.029) H* 04/11/18 13:13 Triglycerides 34 mg/dL (2-149) 04/11/18 13:13 Cholesterol 78 mg/dL (50-199) 04/11/18 13:13 LDL Cholesterol Direct 28 mg/dL (50-130) L 04/11/18 13:13 HDL Cholesterol 49 mg/dL (40-59) 04/11/18 13:13 Cholesterol/HDL Ratio 1.59 % 04/11/18 13:13 Short CBC 04/11/18 Range/Units 13:13 WBC 7.8 (4.5-11.0) K/mm3 Hgb 8.7 L (11.8-15.2) gm/dl Hct 27.8 L (35.5-45.6) % Plt Count 160 (140-440) K/mm3 BMP 04/11/18 13:13 Sodium 140 Potassium 5.5 H Chloride 103.0 Carbon Dioxide 23 BUN 49 H Creatinine 6.5 H Glucose 75 Calcium 8.5 Cardiac Enzymes 04/11/18 Range/Units 13:13 Troponin T 0.329 H* (0.00-0.029) ng/mL - Imaging and Cardiology EKG: report reviewed Chest x-ray: report reviewed (CHF) Assessment and Plan Advance Directives: Yes (Full code) VTE prophylaxis?: Chemical Plan of care discussed with patient/family: Yes - Patient Problems (1) Acute respiratory failure with hypoxia Current Visit: Yes Status: Acute Plan to address problem: Sats were in high 70's at HD center which improved with Oxygenation Patient has home o2 Oxygen to be adjusted Also increased fluid removal (2) Acute exacerbation of CHF (congestive heart failure) Current Visit: No Status: Acute Qualifiers: Heart failure type: combined systolic and diastolic Qualified Code(s): I50.43 - 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 Plan to address problem: Needs increased Ultrafiltration ECHO ordered Cardiology and Nephrology consulted (3) Volume overload Current Visit: Yes Status: Chronic Plan to address problem: Needs increased UF and compliance with HD (4) ESRD needing dialysis Current Visit: Yes Status: Chronic Plan to address problem: Cont HD (5) Anemia of renal disease Current Visit: No Status: Chronic Plan to address problem: On Epogen (6) Essential hypertension Current Visit: No Status: Chronic Plan to address problem: Cont antihypertensives Initial BP was high and have trended lower Non compliance (7) HLD (hyperlipidemia) Current Visit: Yes Status: Chronic Qualifiers: Hyperlipidemia type: mixed hyperlipidemia Qualified Code(s): E78.2 - Mixed hyperlipidemia Plan to address problem: COnt statins (8) Elevated troponin Current Visit: Yes Status: Chronic Plan to address problem: Sec to ESRD (9) GERD (gastroesophageal reflux disease) Current Visit: Yes Status: Chronic Qualifiers: Esophagitis presence: without esophagitis Qualified Code(s): K21.9 - Gastro-esophageal reflux disease without esophagitis Plan to address problem: COnt PPI's (10) Depression Current Visit: Yes Status: Chronic Qualifiers: Depression Type: unspecified Qualified Code(s): F32.9 - Major depressive disorder, single episode, unspecified Plan to address problem: On Trazodone (11) DVT prophylaxis Current Visit: No Status: Acute Plan to address problem: On Heparin and GI prophylaxis
[2018-04-12] MEDS ORDERED: ZOFRAN IV PRN (00:14)
[2018-04-12] MEDS ORDERED: SODIUM CHLORIDE FLUSH SYRINGE 10 ML IV PRN (00:14)
[2018-04-12] MEDS ORDERED: TYLENOL PO PRN (00:14)
[2018-04-12] MEDS: PROCARDIA XL PO SCH ×3 (01:31→22:02)
[2018-04-12] MEDS: COREG PO SCH ×3 (01:31→21:56)
[2018-04-12] MEDS: MORPHINE IV PRN ×5 (05:18→21:30)
[2018-04-12] MEDS: CATAPRES PO SCH ×6 (05:20→22:01)
[2018-04-12 06:04] LABS: Calcium 8.2 mg/dL (8.4-10.2)
[2018-04-12] MEDS ORDERED: NACL 0.9% 100 ML IV PRN (09:02)
[2018-04-12] MEDS: APRESOLINE PO SCH ×3 (09:18→22:01)
[2018-04-12] MEDS: HALFPRIN EC PO SCH (09:20)
[2018-04-12] MEDS: Renal Caps PO SCH (09:20)
[2018-04-12] MEDS: PROTONIX PO SCH (09:20)
[2018-04-12] MEDS: SODIUM CHLORIDE FLUSH SYRINGE 10 ML IV SCH ×2 (09:21→22:03)
--- NOTE | 2018-04-12 09:43 | Consultation ---
Addendum entered and electronically signed by REBECCA GÓMEZ MD 04/12/18 10:15: Recurrent pleural effusions s/p multiple thoracentesis Chronic ascites s/p parancetesis in the past Non-ischemic cardiomyopathy Patient is warm on exam consistent with preserved organ perfusion ESRD on HD Chronic pericardial effusion noted on previous echoes Recommendations: A repeat limited echo to look for the three potential signs of constriction will be ordered 1) the presence of ventricular septal shift, 2) medial mitral e' velocity; and 3) the hepatic vein expiratory diastolic reversal ratio Fluid management in the meantime through Hemodialysis, thoracentesis and paracentesis Original Note: History of Present Illness Consult date: 04/12/18 Consult reason: congestive heart failure History of present illness: Patient is a 28 year old male with end stage renal disease on dialysis who presents with shortness of breath, admitted with volume overload. Of note, patient has had multiple admission with similar symptoms and reports he was recently discharged from [facility]. Patient admits to compliance with dialysis and dietary restrictions. In addition, patient has a known history of dilated nonischemic cardiomyopathy and has failed to outpatient cardiac follow ups. Co-morbidities includes chronic anemia, hypertension and chronic ascites with intermittent paracentesis. Chest x-ray reports cardiomegaly with bilateral pleural effusions, left greater than right. An ECG is benign, sinus rhythm with low voltage. Medications and Allergies Allergies Allergy/AdvReac Type Severity Reaction Status Date / Time heparin Allergy lowers Verified 04/11/18 13:08 platelets Home Medications Medication Instructions Recorded Confirmed Last Taken Type Aspirin EC [Aspirin Enteric Coated 81 mg PO QDAY #30 tablet. 03/27/18 04/11/18 Unknown Rx TAB] AtorvaSTATin [Lipitor] 40 mg PO QHS #30 tab 03/27/18 04/11/18 Unknown Rx Carvedilol [Coreg] 25 mg PO BID #60 tablet 03/27/18 04/11/18 Unknown Rx Esomeprazole Magnesium [Nexium] 40 mg PO DAILY #30 capsule. 03/27/18 04/11/18 Unknown Rx Folic Acid/Vit B Comp W-C [Renal 1 cap PO QDAY #60 capsule 03/27/18 04/11/18 Unknown Rx Caps] cloNIDine [Catapres] 0.3 mg PO TID 30 Days tablet 03/27/18 04/11/18 Unknown Rx hydrALAZINE [Apresoline TAB] 100 mg PO TID #90 tab 03/27/18 04/11/18 Unknown Rx traZODone [Desyrel] 100 mg PO QHS #30 tablet 03/27/18 04/11/18 Unknown Rx NIFEdipine [Adalat cc] 90 mg PO BID 04/11/18 04/11/18 Unknown History Active Meds: Active Medications Acetaminophen (Tylenol) 650 mg PO Q4H PRN PRN Reason: Pain MILD(1-3)/Fever >100.5/JENKINS Aspirin (Halfprin Ec) 81 mg PO QDAY [facility] Last Admin: 04/12/18 09:20 Dose: 81 mg Documented by: Atorvastatin Calcium (Lipitor) 40 mg PO QHS [facility] Carvedilol (Coreg) 25 mg PO BID [facility] Last Admin: 04/12/18 09:19 Dose: Not Given Documented by: Clonidine HCl (Catapres) 0.1 mg PO TID@0600,1300,2100 [facility] Last Admin: 04/12/18 05:20 Dose: 0.1 mg Documented by: Clonidine HCl (Catapres) 0.2 mg PO TID@0600,1300,2100 [facility] Last Admin: 04/12/18 05:20 Dose: 0.2 mg Documented by: Hydralazine HCl (Apresoline) 100 mg PO TID [facility] Last Admin: 04/12/18 09:18 Dose: Not Given Documented by: Sodium Chloride (Nacl 0.9%) 100 mls @ 999 mls/hr IV APRIL PRN PRN Reason: Hypotension Morphine Sulfate (Morphine) 2 mg IV Q4H PRN PRN Reason: Pain, Moderate (4-6) Last Admin: 04/12/18 09:20 Dose: 2 mg Documented by: Multivit/Ca Carb/B Cmplx/FA/Prenat (Renal Caps) 1 cap PO QDAY [facility] Last Admin: 04/12/18 09:20 Dose: 1 cap Documented by: Nifedipine (Procardia Xl) 90 mg PO BID [facility] Last Admin: 04/12/18 09:19 Dose: Not Given Documented by: Ondansetron HCl (Zofran) 4 mg IV Q8H PRN PRN Reason: Nausea And Vomiting Oxycodone/Acetaminophen (Percocet 5/325) 1 tab PO Q4H PRN PRN Reason: Pain, Moderate (4-6) Last Admin: 04/11/18 22:17 Dose: 1 tab Documented by: Pantoprazole Sodium (Protonix) 40 mg PO DAILY [facility] Last Admin: 04/12/18 09:20 Dose: 40 mg Documented by: Sodium Chloride (Sodium Chloride Flush Syringe 10 Ml) 10 ml IV BID [facility] Last Admin: 04/12/18 09:21 Dose: 10 ml Documented by: Sodium Chloride (Sodium Chloride Flush Syringe 10 Ml) 10 ml IV PRN PRN PRN Reason: LINE FLUSH Physical Examination Vital Signs Pulse Resp BP Pulse Ox 70 34 H 172/103 95 04/11/18 13:00 04/11/18 13:00 04/11/18 13:00 04/11/18 13:00 General appearance: no acute distress HEENT: Positive: PERRL Neck: Positive: trachea midline Cardiac: Positive: Reg Rate and Rhythm Lungs: Positive: Decreased Breath Sounds Neuro: Positive: Grossly Intact Abdomen: Positive: Distended Extremities: Present: +1 Edema Results 04/11/18 13:13 04/12/18 04:59 Coagulation 04/11/18 Range/Units 13:13 PT 16.0 H (12.2-14.9) Sec. INR 1.24 H (0.87-1.13) APTT 31.6 (24.2-36.6) Sec. Lipids 04/11/18 Range/Units 13:13 Triglycerides 34 (2-149) mg/dL Cholesterol 78 (50-199) mg/dL HDL Cholesterol 49 (40-59) mg/dL Cholesterol/HDL Ratio 1.59 % CBC 04/11/18 Range/Units 13:13 WBC 7.8 (4.5-11.0) K/mm3 RBC 3.03 L (3.65-5.03) M/mm3 Hgb 8.7 L (11.8-15.2) gm/dl Hct 27.8 L (35.5-45.6) % Plt Count 160 (140-440) K/mm3 Lymph # 1.3 (1.2-5.4) K/mm3 [place] # 0.6 (0.0-0.8) K/mm3 Eos # 0.3 (0.0-0.4) K/mm3 Baso # 0.1 (0.0-0.1) K/mm3 Comprehensive Metabolic Panel 04/11/18 04/12/18 Range/Units 13:13 04:59 Sodium 140 140 (137-145) mmol/L Potassium 5.5 H 5.6 H (3.6-5.0) mmol/L Chloride 103.0 102.9 (98-107) mmol/L Carbon Dioxide 23 24 (22-30) mmol/L BUN 49 H 59 H (9-20) mg/dL Creatinine 6.5 H 6.8 H (0.8-1.5) mg/dL Glucose 75 72 L (75-100) mg/dL Calcium 8.5 8.2 L (8.4-10.2) mg/dL Assessment and Plan Volume overload Pleural effusions Hyperkalemia ESRD on dialysis Hypertension Anemia Non-ischemic cardiomyopathy [facility] 07/2017: no significant coronary artery disease but a decreased left ventricular ejection fraction 15-20%. Hx of Ascities Recommendations: Salt/fluid restricted diet. Dialysis for fluid management. Medical therapy for his non-ischemic cardiomyopathy and chronic systolic heart failure as tolerated.
[2018-04-12] MEDS: PERCOCET 5/325 PO PRN (12:30)
--- NOTE | 2018-04-12 12:51 | Consultation ---
History of Present Illness - Reason for Consult Consult date: 04/12/18 end stage renal disease, hyperkalemia, accelerated hypertension Requesting physician: MIRA BECERRIL - History of Present Illness Patient is a 28-year-old male with past medical history of h ypertension and end-stage renal disease who has dialysis on Tuesday and Tuesday who is complaining of shortness of breath. Patient states for the last 2 months he's had some increased bouts of dyspnea and fluid overload. Patient believes that his dialysis is not taking enough fluid off of him. Patient states that approximately one week ago he had to have a thoracentesis bilateral to remove a liter and a half of fluid. Patient states he went to dialysis today and was turned away because his O2 sat was in the high 70s despite being on oxygen. Patient states his oxygen canister only delivers oxygen when he breathes in. Patient's O2 sat increased after paramedics picked the patient up. Patient states he has some generalized aches and pains in his bilateral legs which are swollen and his lower back and chest. Patient's states he has a mild cough but no fever nausea vomiting. ROS: Stated complaint: MARCO/SOB Other details as noted in HPI Comment: All other systems reviewed and negative - Past Medical History Previous Medical History?: Yes Hx Hypertension: Yes Hx Heart Attack/AMI: No Hx Congestive Heart Failure: Yes (4LPM at home) Hx Diabetes: No Hx Deep Vein Thrombosis: No Hx GERD: Yes Hx Renal Disease: Yes Hx Arthritis: Yes (SPINE) Hx Asthma: No Hx COPD: No Hx Tuberculosis: No Hx Dementia: No Hx HIV: No Additional medical history: Hidradenitis, EJF 40%, enlarged heart - Surgical History Past Surgical History?: Yes Hx Pacemaker: No Additional Surgical History: PD CATHETER - AND REMOVAL. AV FISTULA. LYMPH NODES REMOVED LEFT GROIN. TONSILLECTOMY. Patient does have a history of peritonitis with previous PD - Social History Smoking Status: Current Every Day Smoker Substance Use Type: None Medications and Allergies Allergies Allergy/AdvReac Type Severity Reaction Status Date / Time heparin Allergy lowers Verified 04/11/18 13:08 platelets Home Medications Medication Instructions Recorded Confirmed Last Taken Type Aspirin EC [Aspirin Enteric Coated 81 mg PO QDAY #30 tablet. 03/27/18 04/11/18 Unknown Rx TAB] AtorvaSTATin [Lipitor] 40 mg PO QHS #30 tab 03/27/18 04/11/18 Unknown Rx Carvedilol [Coreg] 25 mg PO BID #60 tablet 03/27/18 04/11/18 Unknown Rx Esomeprazole Magnesium [Nexium] 40 mg PO DAILY #30 capsule. 03/27/18 04/11/18 Unknown Rx Folic Acid/Vit B Comp W-C [Renal 1 cap PO QDAY #60 capsule 03/27/18 04/11/18 Unknown Rx Caps] cloNIDine [Catapres] 0.3 mg PO TID 30 Days tablet 03/27/18 04/11/18 Unknown Rx hydrALAZINE [Apresoline TAB] 100 mg PO TID #90 tab 03/27/18 04/11/18 Unknown Rx traZODone [Desyrel] 100 mg PO QHS #30 tablet 03/27/18 04/11/18 Unknown Rx NIFEdipine [Adalat cc] 90 mg PO BID 04/11/18 04/11/18 Unknown History Active Meds: Active Medications Acetaminophen (Tylenol) 650 mg PO Q4H PRN PRN Reason: Pain MILD(1-3)/Fever >100.5/JENKINS Aspirin (Halfprin Ec) 81 mg PO QDAY [facility] Last Admin: 04/12/18 09:20 Dose: 81 mg Documented by: Atorvastatin Calcium (Lipitor) 40 mg PO QHS [facility] Carvedilol (Coreg) 25 mg PO BID [facility] Last Admin: 04/12/18 09:19 Dose: Not Given Documented by: Clonidine HCl (Catapres) 0.1 mg PO TID@0600,1300,2100 [facility] Last Admin: 04/12/18 05:20 Dose: 0.1 mg Documented by: Clonidine HCl (Catapres) 0.2 mg PO TID@0600,1300,2100 [facility] Last Admin: 04/12/18 05:20 Dose: 0.2 mg Documented by: Hydralazine HCl (Apresoline) 100 mg PO TID [facility] Last Admin: 04/12/18 09:18 Dose: Not Given Documented by: Sodium Chloride (Nacl 0.9%) 100 mls @ 999 mls/hr IV APRIL PRN PRN Reason: Hypotension Morphine Sulfate (Morphine) 2 mg IV Q4H PRN PRN Reason: Pain, Moderate (4-6) Last Admin: 04/12/18 09:20 Dose: 2 mg Documented by: Multivit/Ca Carb/B Cmplx/FA/Prenat (Renal Caps) 1 cap PO QDAY [facility] Last Admin: 04/12/18 09:20 Dose: 1 cap Documented by: Nifedipine (Procardia Xl) 90 mg PO BID [facility] Last Admin: 04/12/18 09:19 Dose: Not Given Documented by: Ondansetron HCl (Zofran) 4 mg IV Q8H PRN PRN Reason: Nausea And Vomiting Oxycodone/Acetaminophen (Percocet 5/325) 1 tab PO Q4H PRN PRN Reason: Pain, Moderate (4-6) Last Admin: 04/11/18 22:17 Dose: 1 tab Documented by: Pantoprazole Sodium (Protonix) 40 mg PO DAILY [facility] Last Admin: 04/12/18 09:20 Dose: 40 mg Documented by: Sodium Chloride (Sodium Chloride Flush Syringe 10 Ml) 10 ml IV BID [facility] Last Admin: 04/12/18 09:21 Dose: 10 ml Documented by: Sodium Chloride (Sodium Chloride Flush Syringe 10 Ml) 10 ml IV PRN PRN PRN Reason: LINE FLUSH Exam - Vital Signs Vital signs: Vital Signs Pulse Resp BP Pulse Ox 70 34 H 172/103 95 04/11/18 13:00 04/11/18 13:00 04/11/18 13:00 04/11/18 13:00 Results - Lab Results 04/11/18 13:13 04/12/18 04:59 Most recent lab results Calcium 8.2 mg/dL (8.4-10.2) L 04/12/18 04:59 Assessment and Plan Impression * End-stage renal disease on maintenance hemodialysis * Fluid overload * Pleural effusion * Cardiomyopathy EF 15% * Noncompliance * Hypertension * Anemia secondary to ESRD * Ascites. Most likely secondary to under dialysis * Hyperkalemia Recommendations * Hemodialysis MWF schedule * UF as tolerated * pRBC transfusion in progress * Epogen TIW prn * Renal diet * Binders with diet * No IV, BP of any puncture in his access arm * Adjust pain medications * Compliance with dialysis addressed
--- NOTE | 2018-04-12 18:12 | Progress Note ---
Assessment and Plan /Acute on chronic hypoxic respiratory failure; secondary to fluid overload Due to end-stage renal disease and bilateral pleural effusion, oxygen and supportive care, hemodialysis per schedule /End-stage renal disease on hemodialysis; nephrology consulted for HD /Hyperkalemia; due to ESRD, management per nephrology HD per schedule, continue to monitor BMP /-Dilated cardiomyopathy; ejection fraction 30-35% Continue anti-failure medications, HD per schedule /Bilateral pleural effusion last ultrasound-guided paracentesis was on 03/02/18 and 03/03/18 will order for left thoracenthesis following HD tomorrow /-hypertension; moderate control, resume home antihypertensives And when necessary medications /Ongoing tobacco use; smoking cessation, nicotine patch as needed, /DVT prophylaxis; heparin renal dose /Medical noncompliance; counseled advised to comply with hemodialysis medications and diet Physical exam: GENERAL: The patient is well-developed well-nourished male lying on stretcher not appearing to be in acute distress. [] HEENT: Normocephalic. Atraumatic. Extraocular motions are intact. Patient has moist mucous membranes. NECK: Supple. Trachea midline CHEST/LUNGS: Occasional coarse breath sounds. Diminished breath sounds at the lung base. There is no respiratory distress noted. HEART/CARDIOVASCULAR: Regular. There is no tachycardia. There is no gallop rub or murmur. ABDOMEN: Abdomen is soft, nontender. Patient has normal bowel sounds. There is no abdominal distention. SKIN: There is no rash. There is no diaphoresis. NEURO: The patient is awake, alert, and oriented. The patient is cooperative. The patient has normal speech MUSCULOSKELETAL: There is no evidence of acute injury. Subjective Date of service: 04/12/18 Interval history: Patient seen and examined. Medical records and medication list reviewed. No acute event overnight noted by the RN. Patient is tolerating diet. Discussed plan of care at bedside with patient. Objective - Constitutional Vitals: Vital Signs - 12hr 04/12/18 04/12/18 04/12/18 08:33 09:15 09:20 Temperature 97.8 F Pulse Rate 65 Respiratory 16 22 Rate Respiratory 22 Rate [Bilateral Leg] Blood Pressure 119/66 O2 Sat by Pulse 92 Oximetry O2 Sat by Pulse Oximetry [ Posterior Bilateral Lower Lobe] 04/12/18 04/12/18 04/12/18 09:35 09:50 10:00 Temperature 97.8 F Pulse Rate 63 64 Respiratory 20 Rate Respiratory Rate [Bilateral Leg] Blood Pressure 145/76 147/85 O2 Sat by Pulse 90 Oximetry O2 Sat by Pulse 4 L Oximetry [ Posterior Bilateral Lower Lobe] 04/12/18 04/12/18 04/12/18 10:15 10:30 10:45 Temperature Pulse Rate 65 63 62 Respiratory Rate Respiratory Rate [Bilateral Leg] Blood Pressure 145/75 151/76 128/69 O2 Sat by Pulse Oximetry O2 Sat by Pulse Oximetry [ Posterior Bilateral Lower Lobe] 04/12/18 04/12/18 04/12/18 11:00 11:15 11:30 Temperature Pulse Rate 61 63 62 Respiratory Rate Respiratory Rate [Bilateral Leg] Blood Pressure 160/79 134/70 134/68 O2 Sat by Pulse Oximetry O2 Sat by Pulse Oximetry [ Posterior Bilateral Lower Lobe] 04/12/18 04/12/18 04/12/18 11:45 12:00 12:15 Temperature Pulse Rate 63 64 64 Respiratory Rate Respiratory Rate [Bilateral Leg] Blood Pressure 145/68 146/69 148/68 O2 Sat by Pulse Oximetry O2 Sat by Pulse Oximetry [ Posterior Bilateral Lower Lobe] 04/12/18 04/12/18 04/12/18 12:30 12:45 13:00 Temperature Pulse Rate 66 65 67 Respiratory 20 Rate Respiratory Rate [Bilateral Leg] Blood Pressure 138/75 133/47 147/73 O2 Sat by Pulse Oximetry O2 Sat by Pulse Oximetry [ Posterior Bilateral Lower Lobe] 04/12/18 04/12/18 04/12/18 13:14 13:15 13:30 Temperature 98.1 F Pulse Rate 70 66 Respiratory 20 20 Rate Respiratory Rate [Bilateral Leg] Blood Pressure 144/77 135/63 O2 Sat by Pulse Oximetry O2 Sat by Pulse Oximetry [ Posterior Bilateral Lower Lobe] 04/12/18 17:19 Temperature 98.7 F Pulse Rate 70 Respiratory 16 Rate Respiratory Rate [Bilateral Leg] Blood Pressure 156/84 O2 Sat by Pulse 92 Oximetry O2 Sat by Pulse Oximetry [ Posterior Bilateral Lower Lobe] - Labs CBC & Chem 7: 04/11/18 13:13 04/12/18 04:59 Labs: Abnormal lab results 04/12/18 Range/Units 04:59 Potassium 5.6 H (3.6-5.0) mmol/L BUN 59 H (9-20) mg/dL Creatinine 6.8 H (0.8-1.5) mg/dL Glucose 72 L (75-100) mg/dL Calcium 8.2 L (8.4-10.2) mg/dL
[2018-04-12] MEDS: HEPARIN SUB-Q SCH ×2 (18:25→22:02)
[2018-04-13] MEDS: MORPHINE IV PRN ×4 (02:33→20:03)
[2018-04-13] MEDS: CATAPRES PO SCH ×6 (05:20→22:14)
[2018-04-13] MEDS: APRESOLINE PO SCH ×3 (09:00→22:13)
[2018-04-13] MEDS: SODIUM CHLORIDE FLUSH SYRINGE 10 ML IV SCH ×2 (09:21→22:14)
--- NOTE | 2018-04-13 10:05 | Progress Note ---
Addendum entered and electronically signed by CARINA SCHROEDER MD 04/13/18 14:06: Conservative cardiac medical therapy. Original Note: Assessment and Plan Volume overload Recurrent Pleural effusions Hyperkalemia ESRD on dialysis Hypertension Anemia Non-ischemic cardiomyopathy [facility] 07/2017: no significant coronary artery disease but a decreased left ventricular ejection fraction 15-20%. Hx of Ascities Recommendations: Salt/fluid restricted diet. Dialysis for fluid management. Medical therapy for his non-ischemic cardiomyopathy and chronic systolic heart failure as tolerated. Subjective Date of service: 04/13/18 Interval history: Patient has no cardiac complaints. No distress noted. Objective Vital Signs Temp Pulse Resp BP Pulse Ox 04/13/18 09:20 18 04/13/18 05:20 69 128/77 04/13/18 04:36 98.0 F 69 17 128/77 96 04/13/18 00:46 98.1 F 66 17 162/88 98 04/12/18 21:00 66 04/12/18 19:59 97.6 F 70 17 180/93 96 04/12/18 18:22 20 04/12/18 17:19 98.7 F 70 16 156/84 92 04/12/18 13:30 98.1 F 66 20 135/63 04/12/18 13:15 70 144/77 04/12/18 13:14 20 04/12/18 13:00 67 147/73 04/12/18 12:45 65 133/47 04/12/18 12:30 66 20 138/75 04/12/18 12:15 64 148/68 04/12/18 12:00 64 146/69 04/12/18 11:45 63 145/68 04/12/18 11:30 62 134/68 04/12/18 11:15 63 134/70 04/12/18 11:00 61 160/79 04/12/18 10:45 62 128/69 04/12/18 10:30 63 151/76 04/12/18 10:15 65 145/75 04/12/18 10:00 64 147/85 - Physical Examination General: No Apparent Distress HEENT: Positive: PERRL Neck: Positive: trachea midline Cardiac: Positive: Reg Rate and Rhythm Lungs: Positive: Decreased Breath Sounds Neuro: Positive: Grossly Intact Abdomen: Positive: Distended Extremities: Present: +1 Edema
[2018-04-13] MEDS: COREG PO SCH ×2 (11:36→22:13)
[2018-04-13] MEDS: Renal Caps PO SCH (11:37)
[2018-04-13] MEDS: PROCARDIA XL PO SCH ×2 (11:37→22:13)
[2018-04-13] MEDS: PROTONIX PO SCH (11:37)
[2018-04-13] MEDS: HALFPRIN EC PO SCH (11:42)
--- NOTE | 2018-04-13 14:08 | Discharge Summary ---
Providers - Providers Date of Admission: 04/11/18 14:26 Date of discharge: 04/14/18 Attending physician: IAIN PEMBERTON 04/12/18 00:17 Consult to Physician [CONS] Routine Comment: Consulting Provider: OLESYA ELLIOTT Physician Instructions: Reason For Exam: ESRD 04/12/18 01:00 Consult to Physician [CONS] Routine Comment: Consulting Provider: CARINA SCHROEDER Physician Instructions: Reason For Exam: CHF Primary care physician: ZACH HERNANDEZ Hospitalization Reason for admission: SOB Condition: Poor Pertinent studies: cxr paracentesis US guided - 1500 cc of blood-tinged/brownish serous fluid removed. Hospital course: Patient is a 28-year-old male with past medical history of hypertension and end-stage renal disease who has dialysis on Tuesday and Tuesday presented with complaining of shortness of breath. Patient states that approximately one week ago he had to have a thoracentesis bilateral to remove a liter and a half of fluid. Patient states he went to dialysis and was turned away because his O2 sat was in the high 70s despite being on oxygen. he was then bought to ER for further management by paramedics. Discharge diagnosis and management; /Acute on chronic hypoxic respiratory failure; secondary to fluid overload Due to end-stage renal disease and bilateral pleural effusion, Managed with oxygen and supportive care, hemodialysis per schedule. Symptom improved following HD and thoracentesis /End-stage renal disease on hemodialysis; nephrology consulted for HD /Hyperkalemia; due to ESRD, management per nephrology HD per schedule, continue to monitor BMP /Nonischemic Dilated cardiomyopathy; ejection fraction 15 - 20% [facility] 07/2017: no significant coronary artery disease but a decreased left ventricular ejection fraction 15-20%. Continued anti-failure medications, HD per schedule /Recurrent Bilateral pleural effusion s/p left thoracenthesis following HD /hypertension; moderate control, resumed home antihypertensives /Ongoing tobacco use; smoking cessation, nicotine patch as needed, /DVT prophylaxis; heparin renal dose /Medical noncompliance; counseled advised to comply with hemodialysis medications and diet Physical exam: GENERAL: The patient is well-developed well-nourished male not appearing to be in acute distress. HEENT: Normocephalic. Atraumatic. Extraocular motions are intact. Patient has moist mucous membranes. NECK: Supple. Trachea midline CHEST/LUNGS: Occasional coarse breath sounds. Diminished breath sounds at the lung base. There is no respiratory distress noted. HEART/CARDIOVASCULAR: Regular. There is no tachycardia. There is no gallop rub or murmur. ABDOMEN: Abdomen is soft, nontender. Patient has normal bowel sounds. There is no abdominal distention. SKIN: There is no rash. There is no diaphoresis. NEURO: The patient is awake, alert, and oriented. The patient is cooperative. The patient has normal speech MUSCULOSKELETAL: There is no evidence of acute injury. Disposition: - TO HOME OR SELFCARE Time spent for discharge: 34 minutes Core Measure Documentation - Palliative Care Palliative Care/ Comfort Measures: Not Applicable - Core Measures Any of the following diagnoses?: history only Exam - Constitutional Vitals: Temp Pulse Resp BP Pulse Ox 98.0 F 62 16 167/91 95 04/13/18 09:59 04/13/18 11:36 04/13/18 09:59 04/13/18 11:36 04/13/18 10:00 Plan Activity: advance as tolerated Weight Bearing Status: Non-Weight Bearing Diet: renal Special Instructions: restrict fluid intake to (1 L perday), record daily weights Follow up with: ZACH HERNANDEZ MD [Primary Care Provider] - 7 Days
--- NOTE | 2018-04-13 14:36 | Progress Note ---
Assessment and Plan Impression * End-stage renal disease on maintenance hemodialysis * Fluid overload * Pleural effusion * Cardiomyopathy EF 15% * Noncompliance * Hypertension * Anemia secondary to ESRD * Ascites. Most likely secondary to under dialysis * Hyperkalemia Recommendations * Hemodialysis MWF schedule * UF as tolerated * pRBC transfusion in progress * Epogen TIW prn * Renal diet * Binders with diet * No IV, BP of any puncture in his access arm * Adjust pain medications * Compliance with dialysis addressed * ok to dc home Subjective Date of service: 04/13/18 Principal diagnosis: esrd Interval history: resting in bed today Objective - Exam Narrative Exam: HEENT: Oral mucosa moist no pallor or icterus Neck: Supple no JVD Chest: Clear to auscultation anteriorly CVS: Regular rate and rhythm S1 and S2 heard Abdomen: Soft nontender no suprapubic masses no organomegaly appreciable Extremity: Dry skin less than 1+ peripheral edema Musculoskeletal: No joint effusion noted in knees and ankle Neurological: Alert awake Dermatology: No petechial rashes Psychiatry: No evidence of any agitation and aggression noted - Vital Signs Vital signs: Vital Signs - 12hr 04/13/18 04/13/18 04/13/18 04:36 05:20 09:20 Temperature 98.0 F Pulse Rate 69 69 Respiratory 17 18 Rate Blood Pressure 128/77 128/77 O2 Sat by Pulse 96 Oximetry 04/13/18 04/13/18 04/13/18 09:59 10:00 11:36 Temperature 98.0 F Pulse Rate 63 62 Respiratory 16 Rate Blood Pressure 167/91 167/91 O2 Sat by Pulse 99 95 Oximetry - Lab 04/11/18 13:13 04/12/18 04:59 Most recent lab results Calcium 8.2 mg/dL (8.4-10.2) L 04/12/18 04:59 Medications & Allergies - Medications Allergies/Adverse Reactions: Allergies heparin Allergy (Verified 04/11/18 13:08) lowers platelets Home Medications: Home Medications Medication Instructions Recorded Confirmed Last Taken Type Aspirin EC [Aspirin Enteric Coated 81 mg PO QDAY #30 tablet.dr 03/27/18 04/11/18 Unknown Rx TAB] AtorvaSTATin [Lipitor] 40 mg PO QHS #30 tab 03/27/18 04/11/18 Unknown Rx Carvedilol [Coreg] 25 mg PO BID #60 tablet 03/27/18 04/11/18 Unknown Rx Esomeprazole Magnesium [Nexium] 40 mg PO DAILY #30 capsule. 03/27/18 04/11/18 Unknown Rx Folic Acid/Vit B Comp W-C [Renal 1 cap PO QDAY #60 capsule 03/27/18 04/11/18 Unknown Rx Caps] cloNIDine [Catapres] 0.3 mg PO TID 30 Days tablet 03/27/18 04/11/18 Unknown Rx hydrALAZINE [Apresoline TAB] 100 mg PO TID #90 tab 03/27/18 04/11/18 Unknown Rx traZODone [Desyrel] 100 mg PO QHS #30 tablet 03/27/18 04/11/18 Unknown Rx NIFEdipine [Adalat cc] 90 mg PO BID 04/11/18 04/11/18 Unknown History Active Medications: Generic Name Dose Route Start Last Admin Trade Name Freq PRN Reason Stop Dose Admin Acetaminophen 650 mg 04/12/18 00:14 Tylenol PO Q4H PRN Pain MILD(1-3)/Fever >100.5/JENKINS Aspirin 81 mg 04/12/18 10:00 04/13/18 11:42 Halfprin Ec PO 81 mg QDAY CHONG Administration Atorvastatin Calcium 40 mg 04/12/18 22:00 04/12/18 22:02 Lipitor PO 40 mg QHS CHONG Administration Carvedilol 25 mg 04/12/18 01:00 04/13/18 11:36 Coreg PO 25 mg BID CHONG Administration Clonidine HCl 0.1 mg 04/12/18 06:00 04/13/18 05:20 Catapres PO Not Given TID@0600,1300,2100 CHONG Clonidine HCl 0.2 mg 04/12/18 06:00 04/13/18 05:20 Catapres PO Not Given TID@0600,1300,2100 CHONG Hydralazine HCl 100 mg 04/12/18 08:00 04/13/18 09:00 Apresoline PO 100 mg TID CHONG Administration Sodium Chloride 100 mls @ 999 mls/hr 04/12/18 09:02 Nacl 0.9% IV APRIL PRN Hypotension Morphine Sulfate 2 mg 04/12/18 00:14 04/13/18 09:20 Morphine IV 2 mg Q4H PRN Administration Pain, Moderate (4-6) Multivit/Ca Carb/B Cmplx/FA/Prenat 1 cap 04/12/18 10:00 04/13/18 11:37 Renal Caps PO 1 cap QDAY CHONG Administration Nifedipine 90 mg 04/12/18 00:30 04/13/18 11:37 Procardia Xl PO 90 mg BID CHONG Administration Ondansetron HCl 4 mg 04/12/18 00:14 Zofran IV Q8H PRN Nausea And Vomiting Oxycodone/Acetaminophen 1 tab 04/11/18 21:24 04/12/18 12:30 Percocet 5/325 PO 1 tab Q4H PRN Administration Pain, Moderate (4-6) Pantoprazole Sodium 40 mg 04/12/18 10:00 04/13/18 11:37 Protonix PO 40 mg DAILY CHONG Administration Sodium Chloride 10 ml 04/12/18 10:00 04/13/18 09:21 Sodium Chloride Flush Syringe 10 Ml IV 10 ml BID CHONG Administration Sodium Chloride 10 ml 04/12/18 00:14 Sodium Chloride Flush Syringe 10 Ml IV PRN PRN LINE FLUSH
[2018-04-14] MEDS: MORPHINE IV PRN ×4 (00:08→13:21)
[2018-04-14] MEDS: CATAPRES PO SCH ×4 (06:15→17:36)
--- NOTE | 2018-04-14 09:20 | Progress Note ---
Addendum entered and electronically signed by REBECCA GÓMEZ MD 04/14/18 12:51: Patient was not in his room this morning Reviewed echo findings - there is evidence of diastolic flow reversal during expiration in hepatic veins. Possible constriction cannot be excluded Recommend outpatient follow-up with me in clinic for consideration of LHC/RHC and real-time cine MRI Continue fluid management through HD, thoracentesis and paracentesis Original Note: Assessment and Plan Volume overload Recurrent Pleural effusions Hyperkalemia ESRD on dialysis Hypertension Anemia Non-ischemic cardiomyopathy [facility] 07/2017: no significant coronary artery disease but a decreased left ventricular ejection fraction 15-20%. Hx of Ascities Recommendations: Salt/fluid restricted diet. Dialysis for fluid management. Continue medical therapy for his non-ischemic cardiomyopathy and chronic systolic heart failure as tolerated. Subjective Date of service: 04/14/18 Principal diagnosis: esrd Interval history: Patient has no cardiac complaints. No distress noted. Objective Vital Signs Temp Pulse Resp Resp BP Pulse Ox 04/14/18 08:17 97.3 F L 63 18 144/88 96 04/14/18 05:34 98.0 F 66 17 138/80 98 04/14/18 05:00 71 04/14/18 00:16 97.9 F 68 18 119/68 97 04/13/18 22:00 18 04/13/18 21:00 66 04/13/18 20:46 98.1 F 67 18 130/79 96 04/13/18 20:25 98 04/13/18 20:03 18 04/13/18 15:59 97.9 F 62 16 141/85 98 04/13/18 14:16 18 04/13/18 14:00 63 156/89 04/13/18 13:04 97.9 F 63 18 150/84 97 04/13/18 13:00 65 04/13/18 11:36 62 167/91 04/13/18 10:00 18 18 95 04/13/18 09:59 98.0 F 63 16 167/91 99 04/13/18 09:20 18 - Physical Examination General: No Apparent Distress HEENT: Positive: PERRL Neck: Positive: trachea midline Cardiac: Positive: Reg Rate and Rhythm Lungs: Positive: Decreased Breath Sounds Neuro: Positive: Grossly Intact Extremities: Present: +1 Edema
[2018-04-14] MEDS: HALFPRIN EC PO SCH (09:29)
[2018-04-14] MEDS: APRESOLINE PO SCH ×2 (09:29→17:39)
[2018-04-14] MEDS: COREG PO SCH (09:29)
[2018-04-14] MEDS: Renal Caps PO SCH (09:29)
[2018-04-14] MEDS: PROTONIX PO SCH (09:29)
[2018-04-14] MEDS: PROCARDIA XL PO SCH (09:29)
[2018-04-14] MEDS: SODIUM CHLORIDE FLUSH SYRINGE 10 ML IV SCH (09:30)
[2018-04-14] MEDS ORDERED: XYLOCAINE 1% 20 mL ONE (09:52)
--- NOTE | 2018-04-14 11:05 | Progress Note ---
Assessment and Plan /Acute on chronic hypoxic respiratory failure; secondary to fluid overload Due to end-stage renal disease and bilateral pleural effusion, oxygen and supportive care, hemodialysis per schedule /End-stage renal disease on hemodialysis; nephrology consulted for HD /Hyperkalemia; due to ESRD, management per nephrology HD per schedule, continue to monitor BMP /-Dilated cardiomyopathy; ejection fraction 30-35% Continue anti-failure medications, HD per schedule /Bilateral pleural effusion last ultrasound-guided paracentesis was on 03/02/18 and 03/03/18 ordered for left thoracenthesis today /-hypertension; moderate control, resume home antihypertensives And when necessary medications /Ongoing tobacco use; smoking cessation, nicotine patch as needed, /DVT prophylaxis; heparin renal dose /Medical noncompliance; counseled advised to comply with hemodialysis medications and diet Disposition: will d/c after left thoracentesis Physical exam: GENERAL: The patient is well-developed well-nourished male lying on stretcher not appearing to be in acute distress. [] HEENT: Normocephalic. Atraumatic. Extraocular motions are intact. Patient has moist mucous membranes. NECK: Supple. Trachea midline CHEST/LUNGS: Occasional coarse breath sounds. Diminished breath sounds at the lung base. There is no respiratory distress noted. HEART/CARDIOVASCULAR: Regular. There is no tachycardia. There is no gallop rub or murmur. ABDOMEN: Abdomen is soft, nontender. Patient has normal bowel sounds. There is no abdominal distention. SKIN: There is no rash. There is no diaphoresis. NEURO: The patient is awake, alert, and oriented. The patient is cooperative. The patient has normal speech MUSCULOSKELETAL: There is no evidence of acute injury. Subjective Date of service: 04/13/18 Principal diagnosis: esrd Interval history: Patient seen and examined. Medical records and medication list reviewed. No acute event overnight noted by the RN. Patient is tolerating diet. Discussed plan of care at bedside with patient and mother. Objective - Constitutional Vitals: Vital Signs - 12hr 04/14/18 04/14/18 04/14/18 00:16 05:00 05:34 Temperature 97.9 F 98.0 F Pulse Rate 68 71 66 Respiratory 18 17 Rate Blood Pressure 119/68 138/80 O2 Sat by Pulse 97 98 Oximetry 04/14/18 08:17 Temperature 97.3 F L Pulse Rate 63 Respiratory 18 Rate Blood Pressure 144/88 O2 Sat by Pulse 96 Oximetry - Labs CBC & Chem 7: 04/11/18 13:13 04/12/18 04:59
--- NOTE | 2018-04-14 11:21 | Procedure Note ---
Date of procedure: 04/14/18 Pre-op diagnosis: Pleural effusion Post-op diagnosis: same Procedure: US guided thoracentesis. Findings: 1500 cc of blood-tinged/brownish serous fluid removed. Anesthesia: local Surgeon: TORIN FRANCISCO Estimated blood loss: none Specimen disposition: discarded Condition: stable Disposition: floor (Post proc CXR ordered.)
--- NOTE | 2018-04-14 11:25 | Ultrasound Report ---
ULTRASOUND THORACENTESIS INDICATION: Left pleural effusion. COMPARISON: None similar. FINDINGS: Ultrasound guided left thoracentesis performed. Written informed consent obtained after explaining the risks and benefits. Patient brought in the ultrasound room. An appropriate skin site marked. Using standard sterile precautions and 1% lidocaine for local anesthesia, 5 Sami Yueh catheter advanced into the pleural fluid. Total of approximately 1500 cc of brownish/blood-tinged serous fluid obtained with no sample sent to the lab. Catheter removed and hemostasis achieved. Patient returned to room. No immediate complications. CONCLUSION: Status post left thoracentesis, as described. A 2 hour post procedure chest x-ray ordered. Dr. Dobson present for and performed the entire procedure. Thank you for the opportunity to participate in this patient's care.
[2018-04-14] MEDS ORDERED: MORPHINE ONE (13:21)
--- NOTE | 2018-04-14 13:24 | Progress Note ---
Assessment and Plan Impression * End-stage renal disease on maintenance hemodialysis * Fluid overload * Pleural effusion * Cardiomyopathy EF 15% * Noncompliance * Hypertension * Anemia secondary to ESRD * Ascites. Most likely secondary to under dialysis * Hyperkalemia Recommendations * Patient undergoing hemodialysis. Tolerating well * Continue Hemodialysis MWF schedule * UF as tolerated * pRBC transfusion as needed * Epogen TIW prn * Renal diet * Binders with diet * No IV, BP of any puncture in his access arm * Patient is status post thoracentesis * Compliance with dialysis addressed * ok to dc home from renal standpoint Subjective Date of service: 04/14/18 Principal diagnosis: esrd Interval history: Patient is status post thoracentesis. Approximately 1500 mL of serosanguineous fluid removed. He is currently undergoing hemodialysis. Tolerating well. Objective - Vital Signs Vital signs: Vital Signs - 12hr 04/14/18 04/14/18 04/14/18 05:00 05:34 08:17 Temperature 98.0 F 97.3 F L Pulse Rate 71 66 63 Respiratory 17 18 Rate Blood Pressure 138/80 144/88 O2 Sat by Pulse 98 96 Oximetry 04/14/18 04/14/18 10:00 10:50 Temperature 97.6 F Pulse Rate 62 Respiratory 16 Rate Blood Pressure 143/73 O2 Sat by Pulse 97 Oximetry - General Appearance General appearance: well-developed, well-nourished, appears stated age EENT: PERRL, mucous membranes moist Neck: no JVD, no thyromegaly, no carotid bruit, supple Respiratory: Present: Decreased Breath Sounds (at the bases) Cardiology: regular, normal heart rate, S1S2, no murmurs Gastrointestinal: normal, normoactive bowel sounds, other (ascites present) Integumentary: other (trace edema. AV fistula in his upper extremity. Cannulated for dialysis) - Lab 04/11/18 13:13 04/12/18 04:59 Most recent lab results Calcium 8.2 mg/dL (8.4-10.2) L 04/12/18 04:59 Medications & Allergies - Medications Allergies/Adverse Reactions: Allergies heparin Allergy (Verified 04/11/18 13:08) lowers platelets Home Medications: Home Medications Medication Instructions Recorded Confirmed Last Taken Type Aspirin EC [Aspirin Enteric Coated 81 mg PO QDAY #30 tablet. 03/27/18 04/11/18 Unknown Rx TAB] AtorvaSTATin [Lipitor] 40 mg PO QHS #30 tab 03/27/18 04/11/18 Unknown Rx Carvedilol [Coreg] 25 mg PO BID #60 tablet 03/27/18 04/11/18 Unknown Rx Esomeprazole Magnesium [Nexium] 40 mg PO DAILY #30 capsule. 03/27/18 04/11/18 Unknown Rx Folic Acid/Vit B Comp W-C [Renal 1 cap PO QDAY #60 capsule 03/27/18 04/11/18 Unknown Rx Caps] cloNIDine [Catapres] 0.3 mg PO TID 30 Days tablet 03/27/18 04/11/18 Unknown Rx hydrALAZINE [Apresoline TAB] 100 mg PO TID #90 tab 03/27/18 04/11/18 Unknown Rx traZODone [Desyrel] 100 mg PO QHS #30 tablet 03/27/18 04/11/18 Unknown Rx NIFEdipine [Adalat cc] 90 mg PO BID 04/11/18 04/11/18 Unknown History Active Medications: Generic Name Dose Route Start Last Admin Trade Name Freq PRN Reason Stop Dose Admin Acetaminophen 650 mg 04/12/18 00:14 Tylenol PO Q4H PRN Pain MILD(1-3)/Fever >100.5/JENKINS Aspirin 81 mg 04/12/18 10:00 04/14/18 09:29 Halfprin Ec PO 81 mg QDAY CHONG Administration Atorvastatin Calcium 40 mg 04/12/18 22:00 04/13/18 22:13 Lipitor PO 40 mg QHS CHONG Administration Carvedilol 25 mg 04/12/18 01:00 04/14/18 09:29 Coreg PO 25 mg BID CHONG Administration Clonidine HCl 0.1 mg 04/12/18 06:00 04/14/18 06:15 Catapres PO Not Given TID@0600,1300,2100 CHONG Clonidine HCl 0.2 mg 04/12/18 06:00 04/14/18 06:16 Catapres PO Not Given TID@0600,1300,2100 CHONG Hydralazine HCl 100 mg 04/12/18 08:00 04/14/18 09:29 Apresoline PO 100 mg TID CHONG Administration Sodium Chloride 100 mls @ 999 mls/hr 04/12/18 09:02 Nacl 0.9% IV APRIL PRN Hypotension Morphine Sulfate 2 mg 04/12/18 00:14 04/14/18 09:29 Morphine IV 2 mg Q4H PRN Administration Pain, Moderate (4-6) Multivit/Ca Carb/B Cmplx/FA/Prenat 1 cap 04/12/18 10:00 04/14/18 09:29 Renal Caps PO 1 cap QDAY CHONG Administration Nifedipine 90 mg 04/12/18 00:30 04/14/18 09:29 Procardia Xl PO 90 mg BID CHONG Administration Ondansetron HCl 4 mg 04/12/18 00:14 Zofran IV Q8H PRN Nausea And Vomiting Oxycodone/Acetaminophen 1 tab 04/11/18 21:24 04/12/18 12:30 Percocet 5/325 PO 1 tab Q4H PRN Administration Pain, Moderate (4-6) Pantoprazole Sodium 40 mg 04/12/18 10:00 04/14/18 09:29 Protonix PO 40 mg DAILY CHONG Administration Sodium Chloride 10 ml 04/12/18 10:00 04/14/18 09:30 Sodium Chloride Flush Syringe 10 Ml IV 10 ml BID CHONG Administration Sodium Chloride 10 ml 04/12/18 00:14 Sodium Chloride Flush Syringe 10 Ml IV PRN PRN LINE FLUSH
--- NOTE | 2018-04-14 13:45 | XRay Report ---
Portable expiration chest: Post left thoracentesis. Compared to the prior examination of April 11 there has been a significant reduction in the opacity involving the left lung base however the hemidiaphragm is still obscured. There is a moderate right pleural effusion which appears unchanged. Areas of pulmonary atelectasis noted just above the fluid on the right remains the same. No pneumothorax identified. Impression: Bilateral effusions reduced on the left post thoracentesis.
[2018-04-14] MEDS ORDERED: NACL 0.9 (PRIMING MACHINE ONLY DIALYSIS) MC ONE (15:04)
[2018-04-16 11:26] VITALS: BP 162/75
== END 2018-04-14 19:02 | disposition home or self-care (01) | DRG 291 ==
LOC: ED 12:43 → 4A 14:26
PROVIDERS: ADMIT Internal Medicine; ATTEND Internal Medicine
PROC: 5A1D70Z Performance of Urinary Filtration, Intermittent, Less than 6 Hours Per Day (ICD-10-PCS; 2018-04-12)
PROC: 0W9B3ZZ Drainage of Left Pleural Cavity, Percutaneous Approach (ICD-10-PCS; principal; 2018-04-14)
PROC: 5A1D70Z Performance of Urinary Filtration, Intermittent, Less than 6 Hours Per Day (ICD-10-PCS; 2018-04-14)
DX: I13.2 Hypertensive heart and chronic kidney disease with heart failure and with stage 5 chronic kidney disease, or end stage renal disease (principal); I50.43 Acute on chronic combined systolic (congestive) and diastolic (congestive) heart failure; N18.6 End stage renal disease; J96.21 Acute and chronic respiratory failure with hypoxia; J90 Pleural effusion, not elsewhere classified; R18.8 Other ascites; I16.1 Hypertensive emergency; I42.0 Dilated cardiomyopathy; F17.200 Nicotine dependence, unspecified, uncomplicated; K21.9 Gastro-esophageal reflux disease without esophagitis; M19.90 Unspecified osteoarthritis, unspecified site; D63.1 Anemia in chronic kidney disease; E78.2 Mixed hyperlipidemia; F32.9 Major depressive disorder, single episode, unspecified; E87.5 Hyperkalemia; Z79.82 Long term (current) use of aspirin; Z71.6 Tobacco abuse counseling; Z71.89 Other specified counseling; Z79.899 Other long term (current) drug therapy; Z91.14 Patient's other noncompliance with medication regimen; Z82.49 Family history of ischemic heart disease and other diseases of the circulatory system
CPT/HCPCS: 32555; 36415; 71045; 80048; 80061; 83036; 84484; 85025; 85610; 85730; 87116; 93005; 93010; 93308; 93321; 93325; 94760; G0378; A9270-GY; J1170; J2270; J7030

== ENCOUNTER 2018-04-21 14:15 | Emergency (ER) | payer MEDICARE ==
--- NOTE | 2018-04-21 14:32 | Emergency Department Report ---
Blank Doc - Documentation Documentation: 28 yr old male presents cc of AV fistula site pain and swelling x last night denies fever 3 day a week dialysis T// Reevaluate
--- NOTE | 2018-04-21 15:02 | Emergency Department Report ---
ED General Adult HPI - General Chief complaint: Pain General Stated complaint: AV FISTULA PAIN Time Seen by Provider: 04/21/18 14:29 Source: patient Mode of arrival: Ambulatory Limitations: No Limitations - History of Present Illness Initial comments: Patient is a 28-year-old male past medical history of end-stage renal disease who presents with left AV fistula pain meds been going on for last. Patient states that pain is a 6 out of 10 to make it tough for pain. He states that he had dialysis yesterday and then afterwards he started having pain as AV fistula slide no bleeding no redness at the area no fevers no chills. Severity scale (0 -10): 9 - Related Data Home Medications Medication Instructions Recorded Confirmed Last Taken NIFEdipine [Adalat cc] 90 mg PO BID 04/11/18 04/11/18 Unknown Previous Rx's Medication Instructions Recorded Last Taken Type Aspirin EC [Aspirin Enteric Coated 81 mg PO QDAY #30 tablet. 03/27/18 Unknown Rx TAB] AtorvaSTATin [Lipitor] 40 mg PO QHS #30 tab 03/27/18 Unknown Rx Carvedilol [Coreg] 25 mg PO BID #60 tablet 03/27/18 Unknown Rx Esomeprazole Magnesium [Nexium] 40 mg PO DAILY #30 capsule. 03/27/18 Unknown Rx Folic Acid/Vit B Comp W-C [Renal 1 cap PO QDAY #60 capsule 03/27/18 Unknown Rx Caps] cloNIDine [Catapres] 0.3 mg PO TID 30 Days tablet 03/27/18 Unknown Rx hydrALAZINE [Apresoline TAB] 100 mg PO TID #90 tab 03/27/18 Unknown Rx traZODone [Desyrel] 100 mg PO QHS #30 tablet 03/27/18 Unknown Rx Diclofenac Sodium [Voltaren] 100 gm TP Q6H #1 gel..gram. 04/21/18 Unknown Rx Allergies Allergy/AdvReac Type Severity Reaction Status Date / Time heparin Allergy lowers Verified 04/21/18 14:26 platelets ED Review of Systems ROS: Stated complaint: AV FISTULA PAIN Other details as noted in HPI Constitutional: denies: chills, fever Eyes: denies: eye pain, eye discharge, vision change ENT: denies: ear pain, throat pain Respiratory: denies: cough, shortness of breath, wheezing Cardiovascular: denies: chest pain, palpitations Endocrine: no symptoms reported Gastrointestinal: denies: abdominal pain, nausea, diarrhea Genitourinary: denies: urgency, dysuria Musculoskeletal: denies: back pain, joint swelling, arthralgia Skin: denies: rash, lesions Neurological: denies: headache, weakness, paresthesias Psychiatric: denies: anxiety, depression Hematological/Lymphatic: denies: easy bleeding, easy bruising ED Past Medical Hx - Past Medical History Previous Medical History?: Yes Hx Hypertension: Yes Hx Heart Attack/AMI: No Hx Congestive Heart Failure: Yes (4LPM at home) Hx Diabetes: No Hx Deep Vein Thrombosis: No Hx GERD: Yes Hx Renal Disease: Yes (ESRD T--) Hx Arthritis: Yes (SPINE) Hx Asthma: No Hx COPD: No Hx Tuberculosis: No Hx Dementia: No Hx HIV: No Additional medical history: Hidradenitis, EJF 40%, enlarged heart - Surgical History Past Surgical History?: Yes Hx Pacemaker: No Additional Surgical History: PD CATHETER - AND REMOVAL. AV FISTULA. LYMPH NODES REMOVED LEFT GROIN. TONSILLECTOMY. Patient does have a history of peritonitis with previous PD - Social History Smoking Status: Current Some Day Smoker - Medications Home Medications: Home Medications Medication Instructions Recorded Confirmed Last Taken Type Aspirin EC [Aspirin Enteric Coated 81 mg PO QDAY #30 tablet. 03/27/18 04/11/18 Unknown Rx TAB] AtorvaSTATin [Lipitor] 40 mg PO QHS #30 tab 03/27/18 04/11/18 Unknown Rx Carvedilol [Coreg] 25 mg PO BID #60 tablet 03/27/18 04/11/18 Unknown Rx Esomeprazole Magnesium [Nexium] 40 mg PO DAILY #30 capsule. 03/27/18 04/11/18 Unknown Rx Folic Acid/Vit B Comp W-C [Renal 1 cap PO QDAY #60 capsule 03/27/18 04/11/18 Unknown Rx Caps] cloNIDine [Catapres] 0.3 mg PO TID 30 Days tablet 03/27/18 04/11/18 Unknown Rx hydrALAZINE [Apresoline TAB] 100 mg PO TID #90 tab 03/27/18 04/11/18 Unknown Rx traZODone [Desyrel] 100 mg PO QHS #30 tablet 03/27/18 04/11/18 Unknown Rx NIFEdipine [Adalat cc] 90 mg PO BID 04/11/18 04/11/18 Unknown History Diclofenac Sodium [Voltaren] 100 gm TP Q6H #1 gel..gram. 04/21/18 Unknown Rx ED Physical Exam - General Limitations: No Limitations General appearance: alert, in no apparent distress - Head Head exam: Present: atraumatic, normocephalic - Eye Eye exam: Present: normal appearance - ENT ENT exam: Present: mucous membranes moist - Neck Neck exam: Present: normal inspection - Respiratory Respiratory exam: Present: normal lung sounds bilaterally. Absent: respiratory distress - Cardiovascular Cardiovascular Exam: Present: regular rate, normal rhythm. Absent: systolic murmur, diastolic murmur, rubs, gallop - GI/Abdominal GI/Abdominal exam: Present: soft, normal bowel sounds - Rectal Rectal exam: Present: deferred - Extremities Exam Extremities exam: Present: other (Left AV fistula with palpable bruit and good thrill tender to palpation. ) - Back Exam Back exam: Present: normal inspection - Neurological Exam Neurological exam: Present: alert, oriented X3 - Psychiatric Psychiatric exam: Present: normal affect, normal mood - Skin Skin exam: Present: warm, dry, intact, normal color. Absent: rash ED Course Vital Signs 04/21/18 04/21/18 04/21/18 14:27 18:39 19:25 Temperature 98.2 F 98.7 F Pulse Rate 83 82 Respiratory 18 16 16 Rate Blood Pressure 194/97 Blood Pressure 144/79 [Right] O2 Sat by Pulse 100 100 Oximetry 04/21/18 19:26 Temperature 98.1 F Pulse Rate 80 Respiratory 16 Rate Blood Pressure Blood Pressure 182/100 [Right] O2 Sat by Pulse 99 Oximetry ED Medical Decision Making - Radiology Data Radiology results: report reviewed, image reviewed - Medical Decision Making Chief medical diagnosis: AV fistula pain Differential medical diagnosis: Superficial venous thrombosis, deep venous thrombosis I will give patient IV morphine and ultrasound of upper extremity Critical care attestation.: If time is entered above; I have spent that time in minutes in the direct care of this critically ill patient, excluding procedure time. ED Disposition Clinical Impression: Left arm pain Disposition: DC-01 TO HOME OR SELFCARE Is pt being admited?: No Does the pt Need Aspirin: No Condition: Stable Instructions: Hemodialysis (ED), End-Stage Kidney Disease (ED) Prescriptions: Diclofenac Sodium [Voltaren] 100 gm TP Q6H #1 gel..gram.
[2018-04-21] MEDS ORDERED: MORPHINE IV ONE ×2 (15:17→19:18)
[2018-04-21] MEDS ORDERED: BENADRYL IV ONE (17:02)
[2018-04-21] MEDS ORDERED: ZOFRAN IV ONE (17:02)
[2018-04-21] MEDS ORDERED: ZOFRAN ONE (17:06)
[2018-04-21] MEDS ORDERED: REGLAN IV ONE (19:18)
--- NOTE | 2018-04-21 20:16 | Vascular Lab Report ---
FINAL REPORT EXAM: VL VENOUS DUPLEX UE LT HISTORY: left arm pain TECHNIQUE: Real-time color duplex sonography was performed of the venous system of the left upper ex tremity and images are submitted for interpretation. PRIORS: None. FINDINGS: There is normal compressibility of the internal jugular, subclavian, axillary, brachial, basilic, cep halic, radial and ulnar veins. Normal venous waveforms are demonstrated throughout. No echogenic thro mbus is demonstrated. IMPRESSION: No evidence of DVT in the left upper extremity
[2018-04-21 20:43] VITALS: BP 182/105
== END 2018-04-21 20:42 | disposition home or self-care (01) ==
LOC: ED 14:15
DX: T82.848A Pain due to vascular prosthetic devices, implants and grafts, initial encounter (principal); I11.0 Hypertensive heart disease with heart failure; I50.9 Heart failure, unspecified; K21.9 Gastro-esophageal reflux disease without esophagitis; M46.90 Unspecified inflammatory spondylopathy, site unspecified; F17.200 Nicotine dependence, unspecified, uncomplicated; Y84.8 Other medical procedures as the cause of abnormal reaction of the patient, or of later complication, without mention of misadventure at the time of the procedure
CPT/HCPCS: 93971; 96374; 96375; 96376; 99284; J1200; J2270; J2405; J2765

== ENCOUNTER 2018-05-17 16:47 | Inpatient (IN) | payer MEDICARE ==
[2018-05-17] MEDS ORDERED: SUBLIMAZE IV ONE (17:18)
--- NOTE | 2018-05-17 17:19 | Emergency Department Report ---
ED General Adult HPI - General Chief complaint: Dyspnea/Respdistress Stated complaint: SICK Time Seen by Provider: 05/17/18 17:08 Source: patient, RN notes reviewed, old records reviewed Mode of arrival: Ambulatory Limitations: Physical Limitation - History of Present Illness Initial comments: This is a 28-year-old gentleman. Nephrology: Dr Salinas Pulmonology: Dr Palacios Medical history: End-stage renal disease, on dialysis, chronic hypoxic respira tory failure, on chronic home oxygen, history of recurrent pleural effusions, dilated cardiomyopathy, suspected to be nonischemic, history of ascites This is a 28 Old gentleman. I have evaluated this patient in the past. Today, the patient presents with a primary complaint of shortness of breath. It is exertional. It is not associated with chest pain. He feels like his "lungs are filled with water." He reports a history of chronic recurrent frequent episodes of pulmonary effusions, or edema. He indicates his primary physicians are not quite sure why this keeps happening. History of shortness of breath is intermittent, worse with physical exertion, and decreases with rest. The patient endorses lower extremity cramping, and lower extremity swelling. He feels like he is not volume of globally. He last received dialysis yesterday. He reports new onset debility, over the past week, and indicates that his legs are giving out on him, even when walking with a walker. He has acute on chronic left lower quadrant abdominal pain. This pain is intermittent for over a year. It is improved when compared to baseline. Denies fevers, denies chills, denies vomiting. He reports that at home, his home oxygen tank supplies continuous oxygen, but he has a portable machine which delivers "puffs" of oxygen. He was reported to have a saturation of 64% in triage. -: Gradual, hour(s) Location: left, right, lower extremity (reported lower extremity cramping, debility present for about a week) Radiation: non-radiation Severity scale (0 -10): 10 Quality: aching Consistency: intermittent Improves with: rest Worsens with: movement Associated Symptoms: loss of appetite, malaise, shortness of breath. denies: chest pain, diaphoresis - Related Data Home Medications Medication Instructions Recorded Confirmed Last Taken NIFEdipine [Adalat cc] 90 mg PO BID 04/11/18 05/17/18 Unknown Previous Rx's Medication Instructions Recorded Last Taken Type Aspirin EC [Aspirin Enteric Coated 81 mg PO QDAY #30 tablet. 03/27/18 Unknown Rx TAB] AtorvaSTATin [Lipitor] 40 mg PO QHS #30 tab 03/27/18 Unknown Rx Carvedilol [Coreg] 25 mg PO BID #60 tablet 03/27/18 Unknown Rx Esomeprazole Magnesium [Nexium] 40 mg PO DAILY #30 capsule. 03/27/18 Unknown Rx Folic Acid/Vit B Comp W-C [Renal 1 cap PO QDAY #60 capsule 03/27/18 Unknown Rx Caps] cloNIDine [Catapres] 0.3 mg PO TID 30 Days tablet 03/27/18 Unknown Rx hydrALAZINE [Apresoline TAB] 100 mg PO TID #90 tab 03/27/18 Unknown Rx traZODone [Desyrel] 100 mg PO QHS #30 tablet 03/27/18 Unknown Rx Diclofenac Sodium [Voltaren] 100 gm TP Q6H #1 gel..gram. 04/21/18 Unknown Rx Allergies Allergy/AdvReac Type Severity Reaction Status Date / Time heparin Allergy lowers Verified 04/21/18 14:26 platelets ED Review of Systems ROS: Stated complaint: SICK Other details as noted in HPI Constitutional: malaise, weakness. denies: fever Eyes: denies: vision change ENT: congestion Respiratory: shortness of breath, wheezing Cardiovascular: edema. denies: chest pain, syncope Gastrointestinal: abdominal pain Musculoskeletal: arthralgia, myalgia Skin: denies: lesions Neurological: weakness Psychiatric: anxiety ED Past Medical Hx - Past Medical History Previous Medical History?: Yes Hx Hypertension: Yes Hx Heart Attack/AMI: No Hx Congestive Heart Failure: Yes (4LPM at home) Hx Diabetes: No Hx Deep Vein Thrombosis: No Hx GERD: Yes Hx Renal Disease: Yes (ESRD T--) Hx Arthritis: Yes (SPINE) Hx Asthma: No Hx COPD: No Hx Tuberculosis: No Hx Dementia: No Hx HIV: No Additional medical history: Hidradenitis, EJF 40%, enlarged heart - Surgical History Past Surgical History?: Yes Hx Pacemaker: No Additional Surgical History: PD CATHETER - AND REMOVAL. AV FISTULA. LYMPH NODES REMOVED LEFT GROIN. TONSILLECTOMY. Patient does have a history of peritonitis with previous PD - Social History Smoking Status: Former Smoker Substance Use Type: None - Medications Home Medications: Home Medications Medication Instructions Recorded Confirmed Last Taken Type Aspirin EC [Aspirin Enteric Coated 81 mg PO QDAY #30 tablet. 03/27/18 05/17/18 Unknown Rx TAB] AtorvaSTATin [Lipitor] 40 mg PO QHS #30 tab 03/27/18 05/17/18 Unknown Rx Carvedilol [Coreg] 25 mg PO BID #60 tablet 03/27/18 05/17/18 Unknown Rx Esomeprazole Magnesium [Nexium] 40 mg PO DAILY #30 capsule. 03/27/18 05/17/18 Unknown Rx Folic Acid/Vit B Comp W-C [Renal 1 cap PO QDAY #60 capsule 03/27/18 05/17/18 Unknown Rx Caps] cloNIDine [Catapres] 0.3 mg PO TID 30 Days tablet 03/27/18 05/17/18 Unknown Rx hydrALAZINE [Apresoline TAB] 100 mg PO TID #90 tab 03/27/18 05/17/18 Unknown Rx traZODone [Desyrel] 100 mg PO QHS #30 tablet 03/27/18 05/17/18 Unknown Rx NIFEdipine [Adalat cc] 90 mg PO BID 04/11/18 05/17/18 Unknown History Diclofenac Sodium [Voltaren] 100 gm TP Q6H #1 gel..gram. 04/21/18 05/17/18 Unknown Rx ED Physical Exam - General Limitations: Physical Limitation General appearance: alert, in no apparent distress - Head Head exam: Present: atraumatic, normocephalic - Eye Eye exam: Present: normal appearance, EOMI. Absent: nystagmus - ENT ENT exam: Present: normal exam, normal orophraynx, mucous membranes moist, normal external ear exam - Neck Neck exam: Present: normal inspection, full ROM. Absent: tenderness, men ingismus - Respiratory Respiratory exam: Present: rales. Absent: respiratory distress - Cardiovascular Cardiovascular Exam: Present: regular rate, normal rhythm, normal heart sounds. Absent: bradycardia, tachycardia, irregular rhythm, systolic murmur, diastolic murmur, rubs, gallop - GI/Abdominal GI/Abdominal exam: Present: soft, tenderness, other (there is lower abdominal tenderness.). Absent: distended, guarding, rebound, rigid, pulsatile mass - Rectal Rectal exam: Present: deferred - Extremities Exam Extremities exam: Present: normal inspection (left upper extremity fistula, no redness, pus or streaking), full ROM, pedal edema, other (2+ pulses noted in the bilateral upper, lower extremities. Compartments soft. No long bony tenderness. The pelvis is stable.). Absent: calf tenderness - Back Exam Back exam: Present: normal inspection, full ROM. Absent: tenderness, CVA tenderness (R), paraspinal tenderness, vertebral tenderness - Neurological Exam Neurological exam: Present: alert, oriented X3, other (Extraocular movements intact. Tongue midline. No facial droop. Facial sensation intact to light lidia ch in the V1, V2, V3 distribution bilaterally. 5 and 5 strength in 4 extremities.. Sensation is intact to light touch in 4 extremities.). Absent: motor sensory deficit - Psychiatric Psychiatric exam: Present: normal affect, normal mood - Skin Skin exam: Present: warm, dry, intact, normal color. Absent: rash ED Course Vital Signs 05/17/18 05/17/18 05/17/18 17:11 17:55 18:15 Temperature 98.4 F Pulse Rate 76 74 75 Pulse Rate [ Anterior Bilateral Throughout] Respiratory 16 16 Rate Respiratory Rate [Anterior Bilateral Throughout] Blood Pressure 177/104 Blood Pressure 206/106 176/103 [Right] O2 Sat by Pulse 97 96 Oximetry 05/17/18 05/17/18 05/17/18 19:25 19:32 19:49 Temperature Pulse Rate 76 76 Pulse Rate [ 76 Anterior Bilateral Throughout] Respiratory 21 Rate Respiratory 18 Rate [Anterior Bilateral Throughout] Blood Pressure 224/111 Blood Pressure 224/111 [Right] O2 Sat by Pulse 99 Oximetry 05/17/18 20:23 Temperature Pulse Rate 74 Pulse Rate [ Anterior Bilateral Throughout] Respiratory 16 Rate Respiratory Rate [Anterior Bilateral Throughout] Blood Pressure Blood Pressure 204/103 [Right] O2 Sat by Pulse Oximetry - Reevaluation(s) Reevaluation #1: 05/17/18 17:40 Differential diagnosis, including but not limited to: Pulmonary edema, lower extremity edema, abdominal wall anasarca, dilated cardiomyopathy, fluid overload Assessment and plan: 28-year-old gentleman with recurrent shortness of breath, crackles, rales, multiple reasons to have shortness of breath, including recurrent pleural effusions, end-stage renal disease on dialysis, and known dilated cardiomyopathy. He is not tachycardic and he is saturating at 97% on room air currently. He has chronic pain. I have evaluated this patient for similar complaints in the past. 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 He will likely require admission for diuresis and respiratory support. He reports no DVT or pulmonary embolus risk factors. In the past, with similar presentations, patient has had CT scan of the chest which has been negative for pulmonary embolus. Reevaluation #2: 05/17/18 17:44 X-ray of the chest shows large bilateral pleural effusions, and known dilated cardiomyopathy. We are awaiting callback from patient's supervisor painting department. 05/17/18 18:00 Reevaluation #3: 05/17/18 18:50 Laboratory studies demonstrated hyperkalemia and hypoglycemia. Discussed with nephrology, Dr. Mcmullen, who will arrange for dialysis. I will withhold Kayexalate pending results of CT scan of the abdomen and pelvis, as this medication has been associated with colonic necrosis, and perforation. I will withhold insulin given recurrent hypoglycemia. Hospital physician is paged to arrange admission. Reevaluation #4: 05/17/18 19:11 Dr Burk accepts to his service ED Medical Decision Making - Lab Data Result diagrams: 05/17/18 17:47 05/17/18 17:47 Vital Signs 05/17/18 17:11 Temperature 98.4 F Pulse Rate 76 Respiratory 16 Rate Blood Pressure 206/106 [Right] O2 Sat by Pulse 97 Oximetry - EKG Data 05/17/18 17:42 Sinus, 70 bpm, low voltage, QTC prolonged, right axis deviation, this appears to be new, otherwise, appears to be grossly unchanged from prior EKG. Not consistent with ST elevation myocardial infarction - Radiology Data Radiology results: pending, report reviewed, image reviewed Referring Physician: ARCADIO SKAGGS Patient Name: LUIS Alcocer TUESDAY Date of : 1990 Sex: Male Report Date: 2018-05-17 Report Status: Finalized Findings [facility] [address] [place] [address] XRay Report Signed Patient: TUESDAYLUIS MR#: [id number] 4 : 1990 Acct:[id number] Age/Sex: 28 / M ADM Date: 05/17/18 Loc: ED Attending Dr: Ordering Physician: ARCADIO SKAGGS MD Date of Service: 05/17/18 Procedure(s): XR chest 1V ap Accession Number(s): [id number] cc: ARCADIO SKAGGS MD Fluoro Time In Minutes: PROCEDURE: XR CHEST 1V AP TECHNIQUE: Chest portable HISTORY: dyspnea COMPARISONS: FINDINGS: There are moderate to large pleural effusions greater on the left. Cardiac silhouette is partially secured. There is mild pulmonary vascular prominence. IMPRESSION: Moderate to large bilateral pleural effusions greater on the left Pulmonary vascular congestion may reflect underlying CHF. This document is electronically signed by Campbell Ragland MD., May 17 2018 06:08:32 PM ET Transcribed By: SHAHID Dictated By: MAYA RAGLAND MD Electronically Authenticated By: MAYA RAGLAND MD Signed Date/Time: 05/17/181809 Referring Physician: ARCADIO SKAGGS Patient Name: LUIS Alcocer TUESDAY Date of : 1990 Sex: Male Report Date: 2018-05-17 Report Status: [place] [address] Cat Scan Report Signed Patient: TUESDAYLUIS MR#: [id number] 4 : 1990 Acct:[id number] Age/Sex: 28 / M ADM Date: 05/17/18 Loc: A379-[address]: ANDI BURK MD Ordering Physician: ARCADIO SKAGGS MD Date of Service: 05/17/18 Procedure(s): CT abdomen pelvis wo con Accession Number(s): [id number] cc: ARCADIO SKAGGS MD PROCEDURE: CT ABDOMEN PELVIS WO CON TECHNIQUE: Computerized axial tomography of the abdomen and pelvis was performed without intravenous contrast. This study is performed without intravascular contrast material and its sensitivity for abdominal and pelvic pathology, including neoplasms, inflammation, abscess, free fluid, thrombosis, arterial dissection and infarction, is reduced compared with a contrast enhanced study. CT DOSE LENGTH PRODUCT: mGycm HISTORY: acute on chronic llq pain COMPARISONS: 12/29/2017 . FINDINGS: Visualized lower thorax: The heart is enlarged. There is a large pericardial effusion. There is atelectasis at the lung bases due to large bilateral pleural effusions.. Liver: Liver is enlarged. There is no mass.. Spleen: The spleen is enlarged. There are calcified granulomas.. Gallbladder and biliary system: Gallbladder is not identified.. Pancreas: There is a 4.5 cm mass which could be arising from the head of the pancreas extending into the myra hepatis. Possible primary pancreatic malignancy or adjacent metastatic adenopathy considered. Exam is limited due to lack of contrast.. Adrenals: Normal. Kidneys: Kidneys are atrophic.. GI tract: There is no bowel obstruction. There are thickened loops of small bowel suggesting enteritis. The appendix is normal. . Lymph nodes and mesentery: There are enlarged retroperitoneal lymph nodes.. Vasculature: There is calcified atherosclerosis.. Bladder: Normal. Reproductive organs: Normal. Peritoneum: There is a large amount of ascites. There is no free air.. Musculoskeletal structures: There is generalized osteosclerosis which could be due to renal osteodystrophy. There are no fractures. Other: There is significant subcutaneous edema suggesting a heart failure or fluid overload.. IMPRESSION: The heart is enlarged. There is a large pericardial effusion. There is atelectasis at the lung bases due to large bilateral pleural effusions. Liver is enlarged. There is no mass. The spleen is enlarged. There are calcified granulomas. Gallbladder is not identified. There is a 4.5 cm mass which could be arising from the head of the pancreas extending into the myra hepatis. Possible primary pancreatic malignancy or adjacent metastatic adenopathy considered. Exam is limited due to lack of contrast.. There are enlarged retroperitoneal lymph nodes. Kidneys are atrophic. There is no bowel obstruction. There are thickened loops of small bowel suggesting enteritis. The appendix is normal. There is a large amount of ascites. There is no free air. There is significant subcutaneous edema suggesting a heart failure or fluid overload. This document is electronically signed by Emmett Swann MD., May 17 2018 09:11:22 PM ET Transcribed By: CO Dictated By: EMMETT SWANN MD Electronically Authenticated By: EMMETT SWANN MD Signed Date/Time: 05/17/18 0490 Critical Care Time: Yes Critical care time in (mins) excluding proc time.: 35 Critical care attestation.: If time is entered above; I have spent that time in minutes in the direct care of this critically ill patient, excluding procedure time. ED Disposition Clinical Impression: Cardiomyopathy, Pleural effusion, SOB (shortness of breath), End stage renal disease, Hypertension Respiratory failure Qualifiers: Chronicity: acute on chronic Respiratory failure complication: hypoxia Qualified Code(s): J96.21 - Acute and chronic respiratory failure with hypoxia Disposition: DC09 OP ADMIT IP TO THIS HOSP Is pt being admited?: Yes Condition: Fair
[2018-05-17] MEDS ORDERED: APRESOLINE IV ONE (17:42)
--- NOTE | 2018-05-17 18:10 | XRay Report ---
PROCEDURE: XR CHEST 1V AP TECHNIQUE: Chest portable HISTORY: dyspnea COMPARISONS: FINDINGS: There are moderate to large pleural effusions greater on the left. Cardiac silhouette is partially se cured. There is mild pulmonary vascular prominence. IMPRESSION: Moderate to large bilateral pleural effusions greater on the left Pulmonary vascular congestion may reflect underlying CHF. This document is electronically signed by Campbell Connelly MD., May 17 2018 06:08:32 PM ET
[2018-05-17 18:20] LABS: Hematocrit 27.2 % (35.5-45.6); Hemoglobin 8.8 gm/dl (11.8-15.2); INR 1.18 (0.87-1.13); Mean Corpuscular HGB Conc 33 % (32-34); Mean Corpuscular Volume 89 fl (84-94); Platelet Count 117 K/mm3 (140-440); Red Blood Count 3.05 M/mm3 (3.65-5.03); Red Cell Distribution Width 19.2 % (13.2-15.2)
[2018-05-17 18:21] LABS: Partial Thromboplastin Time 38.3 Sec. (24.2-36.6)
[2018-05-17 18:28] LABS: BUN/Creatinine Ratio 10; Blood Urea Nitrogen 86 mg/dL (9-20); Calcium 8.6 mg/dL (8.4-10.2); Hemolysis Index 6
[2018-05-17] MEDS ORDERED: D50W (25GM) Syringe IV ONE (18:48)
[2018-05-17] MEDS ORDERED: PROVENTIL IH ONE (18:48)
[2018-05-17] MEDS ORDERED: D50W (25GM) Vial IV PRN (18:48)
--- NOTE | 2018-05-17 19:13 | History and Physical Report ---
History of Present Illness Chief complaint: My lungs are under water History of present illness: 28 YO Male with ESRD on HD (T,R,Sa), HTN, Chronic Pain, GERD, Systolic CHF(EF 40%), Nicotine Dependence, Noncompliance, Chronic Respiratory Failure on 5-6L Home Oxygen via [place] presents to ED for evaluation. Pt states that he has experienced shortness of breath over the past 1 day with worsening symptoms over the past 8 hours. Pt acknowledges nonproductive cough. Pt states that he now has decreased exercise tolerance, dypsnea at rest as well as with exertion, as well as abdominal discomfort. Pt transported to [facility] by family for further care. Pt seen and evaluated in ED and found to have ESRD as well as Acute on Chronic Hypoxemic Respiratory Failure and Accelerated Hypertension. Pt denies Fever, Chills, CP, Palpitations, NVD, Recent ill contacts, Productive Cough, BRBPR, Headache, Vertigo, Skin Rash. Pt admitted to medical floor. Nephrology consulted in ED for urgent dialysis. Past History Past Medical History: ESRD, GERD, heart failure, hypertension Past Surgical History: tonsillectomy, Other (AV Fistula) Social history: single, smoking Family history: hypertension Medications and Allergies Allergies Allergy/AdvReac Type Severity Reaction Status Date / Time heparin Allergy lowers Verified 04/21/18 14:26 platelets Home Medications Medication Instructions Recorded Confirmed Last Taken Type Aspirin EC [Aspirin Enteric Coated 81 mg PO QDAY #30 tablet. 03/27/18 05/17/18 Unknown Rx TAB] AtorvaSTATin [Lipitor] 40 mg PO QHS #30 tab 03/27/18 05/17/18 Unknown Rx Carvedilol [Coreg] 25 mg PO BID #60 tablet 03/27/18 05/17/18 Unknown Rx Esomeprazole Magnesium [Nexium] 40 mg PO DAILY #30 capsule. 03/27/18 05/17/18 Unknown Rx Folic Acid/Vit B Comp W-C [Renal 1 cap PO QDAY #60 capsule 03/27/18 05/17/18 Unknown Rx Caps] cloNIDine [Catapres] 0.3 mg PO TID 30 Days tablet 03/27/18 05/17/18 Unknown Rx hydrALAZINE [Apresoline TAB] 100 mg PO TID #90 tab 03/27/18 05/17/18 Unknown Rx traZODone [Desyrel] 100 mg PO QHS #30 tablet 03/27/18 05/17/18 Unknown Rx NIFEdipine [Adalat cc] 90 mg PO BID 04/11/18 05/17/18 Unknown History Diclofenac Sodium [Voltaren] 100 gm TP Q6H #1 gel..gram. 04/21/18 05/17/18 Unknown Rx Active Meds: Active Medications Dextrose (D50w (25gm) Vial) 50 gm IV PRN PRN PRN Reason: Hypoglycemia Last Admin: 05/17/18 18:56 Dose: 50 gm Documented by: Calcium Gluconate 1,000 mg/ (Sodium Chloride) 110 mls @ 660 mls/hr IV ONCE ONE Stop: 05/17/18 19:57 Furosemide 100 mg/ Sodium (Chloride) 60 mls @ 100 mls/hr IV ONCE ONE Stop: 05/17/18 20:23 Review of Systems Constitutional: no weight loss, no weight gain, no fever, no chills Ears, nose, mouth and throat: no ear pain, no ear discharge, no tinnitis, no decreased hearing, no nose pain, no nasal congestion Cardiovascular: shortness of breath, dyspnea on exertion, decreased exercise tolerance, no chest pain, no orthopnea Respiratory: shortness of breath, no cough, no cough with sputum, no excessive sputum, no hemoptysis, no congestion, no wheezing, no pleurisy Gastrointestinal: abdominal pain, nausea Genitourinary Male: no hematuria, no flank pain, no discharge, no urinary frequency, no urinary hesitancy Rectal: no pain, no incontinence, no bleeding Musculoskeletal: no neck stiffness, no neck pain, no shooting arm pain, no arm numbness/tingling, no low back pain Integumentary: no rash, no pruritis, no redness, no sores, no wounds Neurological: no head injury, no transient paralysis, no paralysis, no weakness, no parathesias, no numbness Psychiatric: no anxiety, no memory loss, no change in sleep habits, no sleep disturbances, no insomnia, no hypersomnia Endocrine: no cold intolerance, no heat intolerance, no polyphagia, no excessive thirst, no polydipsia, no polyuria Hematologic/Lymphatic: no easy bruising, no easy bleeding, no lymphadenopathy, no lymphedema Allergic/Immunologic: no urticaria, no allergic rhinitis, no wheezing, no persistent infections, no anaphylaxis Exam - Constitutional Vitals: Temp Pulse Resp BP Pulse Ox 98.4 F 75 16 176/103 96 05/17/18 17:11 05/17/18 18:15 05/17/18 18:15 05/17/18 18:15 05/17/18 18:15 General appearance: Present: mild distress - EENT Eyes: Present: PERRL ENT: hearing intact, clear oral mucosa - Neck Neck: Present: supple, normal ROM - Respiratory Respiratory effort: normal Respiratory: bilateral: CTA - Cardiovascular Heart Sounds: Present: S1 & S2. Absent: rub, click - Extremities Extremities: pulses symmetrical, No edema Peripheral Pulses: within normal limits - Abdominal General gastrointestinal: Present: soft, non-tender, non-distended, normal bowel sounds Male genitourinary: Present: normal - Integumentary Integumentary: Present: clear, warm, dry - Musculoskeletal Musculoskeletal: gait normal, strength equal bilaterally - Psychiatric Psychiatric: appropriate mood/affect, intact judgment & insight - Neurologic Neurologic: CNII-XII intact, moves all extremities Results - Labs CBC & Chem 7: 05/17/18 17:47 05/17/18 17:47 Labs: Abnormal lab results 05/17/18 05/17/18 05/17/18 Range/Units 17:47 17:47 17:47 RBC 3.05 L (3.65-5.03) M/mm3 Hgb 8.8 L (11.8-15.2) gm/dl Hct 27.2 L (35.5-45.6) % RDW 19.2 H (13.2-15.2) % Plt Count 117 L (140-440) K/mm3 PT 15.8 H (12.2-14.9) Sec. INR 1.18 H (0.87-1.13) APTT 38.3 H (24.2-36.6) Sec. Potassium 6.2 H* (3.6-5.0) mmol/L BUN 86 H (9-20) mg/dL Creatinine 8.6 H (0.8-1.5) mg/dL Glucose 61 L (75-100) mg/dL NT-Pro-B Natriuret Pep > 60772 H (0-450) pg/mL Assessment and Plan - Patient Problems (1) End stage renal disease Current Visit: Yes Status: Acute Plan to address problem: Nephrology consulted in ED, Strict I/O, daily weight, monitor uop q shift, avoid nephrotoxic agents, repeat bmp, (2) Respiratory failure Current Visit: Yes Status: Acute Qualifiers: Chronicity: acute on chronic Respiratory failure complication: hypoxia Qualified Code(s): J96.21 - Acute and chronic respiratory failure with hypoxia Plan to address problem: Supplemental oxygen, nebulizer therapy, pulse oximetry, NIPPV as clinically indicated, dialysis, chest x ray (3) Nicotine dependence unspecified, with withdrawal Current Visit: No Status: Acute Qualifiers: Nicotine product type: cigarettes Qualified Code(s): F17.213 - Nicotine dependence, cigarettes, with withdrawal Plan to address problem: Supportive care, smoking cessation counseling, (4) Pleural effusion Current Visit: No Status: Acute Plan to address problem: Chest x ray, urgent dialysis, repeat chest x ray in AM (5) Essential hypertension Current Visit: No Status: Chronic Plan to address problem: Accelerated Hypertension: Monitor BP q shift, continue medical management, continue prehospital medication. (6) Pleural effusion Current Visit: Yes Status: Acute Plan to address problem: Bilateral Effusions: Left greater than right. (7) Hyperkalemia Current Visit: Yes Status: Acute Plan to address problem: Calcium gluconate, insulin, repeat bmp, No EKG changes. (8) DVT prophylaxis Current Visit: No Status: Acute Plan to address problem: SCD to BLE while in bed.
[2018-05-17] MEDS ORDERED: SODIUM CHLORIDE FLUSH SYRINGE 10 ML IV PRN (19:15)
[2018-05-17] MEDS ORDERED: PROVENTIL IH PRN (19:15)
[2018-05-17] MEDS ORDERED: TYLENOL PO PRN (19:15)
[2018-05-17] MEDS ORDERED: ZOFRAN IV PRN (19:15)
[2018-05-17] MEDS ORDERED: NON-FORMULARY (Diclofenac Sodium [Voltaren] 100 GM) TP SCH (19:30)
[2018-05-17] MEDS ORDERED: PERCOCET 5/325 PO PRN (19:43)
[2018-05-17] MEDS ORDERED: CATAPRES ONE (19:47)
[2018-05-17] MEDS ORDERED: APRESOLINE ONE (19:47)
[2018-05-17] MEDS ORDERED: LASIX 100 MG in NACL 0.9% 50 ML IV ONE (19:48)
[2018-05-17] MEDS ORDERED: CALCIUM GLUCONATE 1,000 MG in NACL 0.9% 100 ML IV ONE (19:48)
[2018-05-17] MEDS: CATAPRES PO SCH (19:49)
[2018-05-17] MEDS: APRESOLINE PO SCH (19:49)
--- NOTE | 2018-05-17 21:13 | Cat Scan Report ---
PROCEDURE: CT ABDOMEN PELVIS WO CON TECHNIQUE: Computerized axial tomography of the abdomen and pelvis was performed without intravenous contrast. This study is performed without intravascular contrast material and its sensitivity for ab dominal and pelvic pathology, including neoplasms, inflammation, abscess, free fluid, thrombosis, art erial dissection and infarction, is reduced compared with a contrast enhanced study. CT DOSE LENGTH PRODUCT: mGycm HISTORY: acute on chronic llq pain COMPARISONS: 12/29/2017 . FINDINGS: Visualized lower thorax: The heart is enlarged. There is a large pericardial effusion. There is atele ctasis at the lung bases due to large bilateral pleural effusions.. Liver: Liver is enlarged. There is no mass.. Spleen: The spleen is enlarged. There are calcified granulomas.. Gallbladder and biliary system: Gallbladder is not identified.. Pancreas: There is a 4.5 cm mass which could be arising from the head of the pancreas extending into the myra hepatis. Possible primary pancreatic malignancy or adjacent metastatic adenopathy consider ed. Exam is limited due to lack of contrast.. Adrenals: Normal. Kidneys: Kidneys are atrophic.. GI tract: There is no bowel obstruction. There are thickened loops of small bowel suggesting enterit is. The appendix is normal. . Lymph nodes and mesentery: There are enlarged retroperitoneal lymph nodes.. Vasculature: There is calcified atherosclerosis.. Bladder: Normal. Reproductive organs: Normal. Peritoneum: There is a large amount of ascites. There is no free air.. Musculoskeletal structures: There is generalized osteosclerosis which could be due to renal osteodyst rophy. There are no fractures. Other: There is significant subcutaneous edema suggesting a heart failure or fluid overload.. IMPRESSION: The heart is enlarged. There is a large pericardial effusion. There is atelectasis at the lung bases due to large bilateral pleural effusions. Liver is enlarged. There is no mass. The spleen is enlarged. There are calcified granulomas. Gallbladder is not identified. There is a 4.5 cm mass which could be arising from the head of the pancreas extending into the myra hepatis. Possible primary pancreatic malignancy or adjacent metastatic adenopathy considered. Exam is limited due to lack of contrast.. There are enlarged retroperitoneal lymph nodes. Kidneys are atrophic. There is no bowel obstruction. There are thickened loops of small bowel suggesting enteritis. The salima endix is normal. There is a large amount of ascites. There is no free air. There is significant subcutaneous edema suggesting a heart failure or fluid overload. This document is electronically signed by Emmett Messer MD., May 17 2018 09:11:22 PM ET
[2018-05-17] MEDS: MORPHINE IV PRN (21:14)
[2018-05-17] MEDS: COREG PO SCH (21:16)
[2018-05-17] MEDS ORDERED: KIONEX PO ONE (21:31)
[2018-05-17] MEDS ORDERED: NON-FORMULARY (Nifedipine [Adalat Cc] 90 MG) PO SCH (22:00)
[2018-05-17 23:04] LABS: Calcium 8.5 mg/dL (8.4-10.2)
[2018-05-18] MEDS: SODIUM BICARBONATE IV ONE ×2 (01:02→01:16)
[2018-05-18] MEDS: PROCARDIA XL PO SCH ×3 (01:03→22:47)
[2018-05-18] MEDS: SODIUM CHLORIDE FLUSH SYRINGE 10 ML IV SCH ×3 (01:14→22:49)
[2018-05-18] MEDS: XANAX PO SCH ×3 (01:15→22:48)
[2018-05-18] MEDS: DESYREL PO SCH ×2 (01:16→22:47)
[2018-05-18] MEDS: MORPHINE IV PRN ×4 (05:08→22:51)
[2018-05-18] MEDS: Renal Caps PO SCH (09:45)
[2018-05-18] MEDS: APRESOLINE PO SCH ×3 (09:45→22:57)
[2018-05-18] MEDS: HALFPRIN EC PO SCH (09:45)
[2018-05-18] MEDS: PROTONIX PO SCH (09:45)
[2018-05-18] MEDS: CATAPRES PO SCH ×3 (09:50→22:47)
[2018-05-18] MEDS ORDERED: NON-FORMULARY (Esomeprazole Magnesium [Nexium] 40 MG) PO SCH (10:00)
[2018-05-18] MEDS: COREG PO SCH ×2 (10:10→22:48)
--- NOTE | 2018-05-18 11:01 | Consultation ---
History of Present Illness - Reason for Consult end stage renal disease Past History Past Medical History: ESRD, GERD, heart failure, hypertension Past Surgical History: tonsillectomy, Other (AV Fistula) Social history: single, smoking Family history: hypertension Medications and Allergies Allergies Allergy/AdvReac Type Severity Reaction Status Date / Time heparin Allergy lowers Verified 04/21/18 14:26 platelets Home Medications Medication Instructions Recorded Confirmed Last Taken Type Aspirin EC [Aspirin Enteric Coated 81 mg PO QDAY #30 tablet. 03/27/18 05/17/18 Unknown Rx TAB] AtorvaSTATin [Lipitor] 40 mg PO QHS #30 tab 03/27/18 05/17/18 Unknown Rx Carvedilol [Coreg] 25 mg PO BID #60 tablet 03/27/18 05/17/18 Unknown Rx Esomeprazole Magnesium [Nexium] 40 mg PO DAILY #30 capsule. 03/27/18 05/17/18 Unknown Rx Folic Acid/Vit B Comp W-C [Renal 1 cap PO QDAY #60 capsule 03/27/18 05/17/18 Unknown Rx Caps] cloNIDine [Catapres] 0.3 mg PO TID 30 Days tablet 03/27/18 05/17/18 Unknown Rx hydrALAZINE [Apresoline TAB] 100 mg PO TID #90 tab 03/27/18 05/17/18 Unknown Rx traZODone [Desyrel] 100 mg PO QHS #30 tablet 03/27/18 05/17/18 Unknown Rx NIFEdipine [Adalat cc] 90 mg PO BID 04/11/18 05/17/18 Unknown History Diclofenac Sodium [Voltaren] 100 gm TP Q6H #1 gel..gram. 04/21/18 05/17/18 Unknown Rx Active Meds: Active Medications Acetaminophen (Tylenol) 650 mg PO Q4H PRN PRN Reason: Pain MILD(1-3)/Fever >100.5/JENKINS Albuterol (Proventil) 2.5 mg IH Q4HRT PRN PRN Reason: Shortness Of Breath Alprazolam (Xanax) 0.5 mg PO Q12HR [facility] Last Admin: 05/18/18 01:15 Dose: Not Given Documented by: Aspirin (Halfprin Ec) 81 mg PO QDAY [facility] Last Admin: 05/18/18 09:45 Dose: 81 mg Documented by: Atorvastatin Calcium (Lipitor) 40 mg PO QHS [facility] Last Admin: 05/17/18 21:15 Dose: 40 mg Documented by: Carvedilol (Coreg) 25 mg PO BID [facility] Last Admin: 05/17/18 21:16 Dose: 25 mg Documented by: Clonidine HCl (Catapres) 0.3 mg PO TID [facility] Last Admin: 05/18/18 09:50 Dose: Not Given Documented by: Dextrose (D50w (25gm) Vial) 50 gm IV PRN PRN PRN Reason: Hypoglycemia Last Admin: 05/17/18 18:56 Dose: 50 gm Documented by: Hydralazine HCl (Apresoline) 100 mg PO TID [facility] Last Admin: 05/18/18 09:45 Dose: 100 mg Documented by: Miscellaneous Medication (Diclofenac Sodium [Voltaren]) 100 gm TP Q6H [facility] Morphine Sulfate (Morphine) 4 mg IV Q4H PRN PRN Reason: Pain , Severe (7-10) Last Admin: 05/18/18 09:46 Dose: 4 mg Documented by: Multivit/Ca Carb/B Cmplx/FA/Prenat (Renal Caps) 1 cap PO QDAY [facility] Last Admin: 05/18/18 09:45 Dose: 1 cap Documented by: Nifedipine (Procardia Xl) 90 mg PO BID [facility] Last Admin: 05/18/18 01:03 Dose: 90 mg Documented by: Ondansetron HCl (Zofran) 4 mg IV Q8H PRN PRN Reason: Nausea And Vomiting Oxycodone/Acetaminophen (Percocet 5/325) 1 tab PO Q6H PRN PRN Reason: Pain, Moderate (4-6) Pantoprazole Sodium (Protonix) 40 mg PO DAILY [facility] Last Admin: 05/18/18 09:45 Dose: 40 mg Documented by: Sodium Chloride (Sodium Chloride Flush Syringe 10 Ml) 10 ml IV BID [facility] Last Admin: 05/18/18 01:14 Dose: 10 ml Documented by: Sodium Chloride (Sodium Chloride Flush Syringe 10 Ml) 10 ml IV PRN PRN PRN Reason: LINE FLUSH Trazodone HCl (Desyrel) 100 mg PO QHS [facility] Last Admin: 05/18/18 01:16 Dose: Not Given Documented by: Exam - Vital Signs Vital signs: Vital Signs Temp Pulse Resp BP Pulse Ox 98.4 F 76 16 206/106 97 05/17/18 17:11 05/17/18 17:11 05/17/18 17:11 05/17/18 17:11 05/17/18 17:11 Results - Lab Results 05/17/18 17:47 05/17/18 22:30 Most recent lab results Calcium 8.5 mg/dL (8.4-10.2) 05/17/18 22:30 Magnesium 2.20 mg/dL (1.7-2.3) 05/17/18 17:47
[2018-05-18] MEDS ORDERED: NACL 0.9 (PRIMING MACHINE ONLY DIALYSIS) MC ONE (12:52)
--- NOTE | 2018-05-18 16:45 | Progress Note ---
Assessment and Plan (1) End stage renal disease Current Visit: Yes Status: Acute Plan to address problem: Nephrology consulted in ED, Strict I/O, daily weight, monitor uop q shift, avoid nephrotoxic agents, repeat bmp, (2) Respiratory failure Current Visit: Yes Status: Acute Qualifiers: Chronicity: acute on chronic Respiratory failure complication: hypoxia Qualified Code(s): J96.21 - Acute and chronic respiratory failure with hypoxia Plan to address problem: Supplemental oxygen, nebulizer therapy, pulse oximetry, NIPPV as clinically indicated, dialysis, chest x ray (3) Nicotine dependence unspecified, with withdrawal Current Visit: No Status: Acute Qualifiers: Nicotine product type: cigarettes Qualified Code(s): F17.213 - Nicotine dependence, cigarettes, with withdrawal Plan to address problem: Supportive care, smoking cessation counseling, (4) Pleural effusion Current Visit: No Status: Acute Plan to address problem: Chest x ray, urgent dialysis, repeat chest x ray in AM (5) Essential hypertension Current Visit: No Status: Chronic Plan to address problem: Accelerated Hypertension: Monitor BP q shift, continue medical management, continue prehospital medication. (6) Hyperkalemia Current Visit: Yes Status: Acute Plan to address problem: Calcium gluconate, insulin, repeat bmp, No EKG changes. (7) DVT prophylaxis Current Visit: No Status: Acute Plan to address problem: SCD to BLE while in bed. Subjective Date of service: 05/18/18 Principal diagnosis: Hyperkalemia and ESRD Interval history: Doing well Objective - Constitutional Vitals: Vital Signs - 12hr 05/18/18 05/18/18 05/18/18 05:48 10:30 10:45 Temperature 98.0 F 98.0 F Pulse Rate 62 62 61 Respiratory 18 16 Rate Blood Pressure 177/101 134/68 141/66 O2 Sat by Pulse 92 Oximetry 05/18/18 05/18/18 05/18/18 11:00 11:15 11:30 Temperature Pulse Rate 59 L 59 L 61 Respiratory Rate Blood Pressure 144/69 132/71 132/70 O2 Sat by Pulse Oximetry 05/18/18 05/18/18 05/18/18 11:45 12:00 12:15 Temperature Pulse Rate 65 66 66 Respiratory Rate Blood Pressure 140/73 136/63 136/63 O2 Sat by Pulse Oximetry 05/18/18 05/18/18 05/18/18 12:30 12:45 13:00 Temperature Pulse Rate 68 63 62 Respiratory Rate Blood Pressure 137/53 116/62 127/65 O2 Sat by Pulse Oximetry 05/18/18 05/18/18 05/18/18 13:15 13:30 13:45 Temperature 98.0 F Pulse Rate 61 61 61 Respiratory 16 Rate Blood Pressure 121/67 133/64 120/58 O2 Sat by Pulse Oximetry General appearance: Present: no acute distress, well-nourished - EENT Eyes: PERRL, EOM intact ENT: hearing intact, clear oral mucosa Ears: bilateral: normal - Neck Neck: supple, normal ROM - Respiratory Respiratory effort: normal Respiratory: bilateral: CTA - Breasts Breasts: normal - Cardiovascular Heart rate: 78 Rhythm: regular Heart Sounds: Present: S1 & S2. Absent: gallop, rub Extremities: no ischemia, pulses intact, No edema, normal color, Full ROM - Gastrointestinal General gastrointestinal: Present: soft, non-tender, non-distended, normal bowel sounds - Genitourinary Male genitourinary: normal - Integumentary Integumentary: clear, warm, dry - Musculoskeletal Musculoskeletal: 1, strength equal bilaterally - Neurologic Neurologic: moves all extremities - Psychiatric Psychiatric: memory intact, appropriate mood/affect, intact judgment & insight - Allied health notes Allied health notes reviewed: nursing, case management - Labs CBC & Chem 7: 05/17/18 17:47 05/17/18 22:30 Labs: Abnormal lab results 05/17/18 05/17/18 05/17/18 Range/Units 17:47 17:47 17:47 RBC 3.05 L (3.65-5.03) M/mm3 Hgb 8.8 L (11.8-15.2) gm/dl Hct 27.2 L (35.5-45.6) % RDW 19.2 H (13.2-15.2) % Plt Count 117 L (140-440) K/mm3 PT 15.8 H (12.2-14.9) Sec. INR 1.18 H (0.87-1.13) APTT 38.3 H (24.2-36.6) Sec. Potassium 6.2 H* (3.6-5.0) mmol/L BUN 86 H (9-20) mg/dL Creatinine 8.6 H (0.8-1.5) mg/dL Glucose 61 L (75-100) mg/dL NT-Pro-B Natriuret Pep > 09225 H (0-450) pg/mL 05/17/18 Range/Units 22:30 RBC (3.65-5.03) M/mm3 Hgb (11.8-15.2) gm/dl Hct (35.5-45.6) % RDW (13.2-15.2) % Plt Count (140-440) K/mm3 PT (12.2-14.9) Sec. INR (0.87-1.13) APTT (24.2-36.6) Sec. Potassium 5.7 H (3.6-5.0) mmol/L BUN 86 H (9-20) mg/dL Creatinine 8.3 H (0.8-1.5) mg/dL Glucose (75-100) mg/dL NT-Pro-B Natriuret Pep (0-450) pg/mL
--- NOTE | 2018-05-18 17:55 | Consultation ---
History of Present Illness - History of Present Illness Chief complaint shortness of breath/end stage renal disease 28 year old gentleman with medical history significant for hypertension, congestive heart failure, end stage renal disease on hemodialysis via a left arm AV fistula admitted for complaints of shortness of breath orthopnea and PND he dialyzes Tuesday at [facility] dialysis. Last dialysis was Tuesday. He reports worsening shortness of breath orthopnea PND and increasing oxygen requirements he does have a cough denies any phlegm he denies any fevers chills he does have occasional nausea vomiting he denies any diarrhea he denies any bleeding from any orifice. Denies any headaches Nephrology consulted for evaluation and management of end-stage renal disease Past History Past Medical History: ESRD, GERD, heart failure, hypertension Past Surgical History: tonsillectomy, Other (AV Fistula) Social history: single, smoking Family history: hypertension Medications and Allergies Allergies Allergy/AdvReac Type Severity Reaction Status Date / Time heparin Allergy lowers Verified 04/21/18 14:26 platelets Home Medications Medication Instructions Recorded Confirmed Last Taken Type Aspirin EC [Aspirin Enteric Coated 81 mg PO QDAY #30 tablet. 03/27/18 05/17/18 Unknown Rx TAB] AtorvaSTATin [Lipitor] 40 mg PO QHS #30 tab 03/27/18 05/17/18 Unknown Rx Carvedilol [Coreg] 25 mg PO BID #60 tablet 03/27/18 05/17/18 Unknown Rx Esomeprazole Magnesium [Nexium] 40 mg PO DAILY #30 capsule. 03/27/18 05/17/18 Unknown Rx Folic Acid/Vit B Comp W-C [Renal 1 cap PO QDAY #60 capsule 03/27/18 05/17/18 Unknown Rx Caps] cloNIDine [Catapres] 0.3 mg PO TID 30 Days tablet 03/27/18 05/17/18 Unknown Rx hydrALAZINE [Apresoline TAB] 100 mg PO TID #90 tab 03/27/18 05/17/18 Unknown Rx traZODone [Desyrel] 100 mg PO QHS #30 tablet 03/27/18 05/17/18 Unknown Rx NIFEdipine [Adalat cc] 90 mg PO BID 04/11/18 05/17/18 Unknown History Diclofenac Sodium [Voltaren] 100 gm TP Q6H #1 gel..gram. 04/21/18 05/17/18 Unknown Rx Active Meds: Active Medications Acetaminophen (Tylenol) 650 mg PO Q4H PRN PRN Reason: Pain MILD(1-3)/Fever >100.5/JENKINS Albuterol (Proventil) 2.5 mg IH Q4HRT PRN PRN Reason: Shortness Of Breath Alprazolam (Xanax) 0.5 mg PO Q12HR [facility] Last Admin: 05/18/18 15:26 Dose: Not Given Documented by: Aspirin (Halfprin Ec) 81 mg PO QDAY [facility] Last Admin: 05/18/18 09:45 Dose: 81 mg Documented by: Atorvastatin Calcium (Lipitor) 40 mg PO QHS [facility] Last Admin: 05/17/18 21:15 Dose: 40 mg Documented by: Carvedilol (Coreg) 25 mg PO BID [facility] Last Admin: 05/18/18 10:10 Dose: Not Given Documented by: Clonidine HCl (Catapres) 0.3 mg PO TID [facility] Last Admin: 05/18/18 15:27 Dose: Not Given Documented by: Dextrose (D50w (25gm) Vial) 50 gm IV PRN PRN PRN Reason: Hypoglycemia Last Admin: 05/17/18 18:56 Dose: 50 gm Documented by: Hydralazine HCl (Apresoline) 100 mg PO TID [facility] Last Admin: 05/18/18 15:31 Dose: 100 mg Documented by: Miscellaneous Medication (Diclofenac Sodium [Voltaren]) 100 gm TP Q6H [facility] Morphine Sulfate (Morphine) 4 mg IV Q4H PRN PRN Reason: Pain , Severe (7-10) Last Admin: 05/18/18 15:31 Dose: 4 mg Documented by: Multivit/Ca Carb/B Cmplx/FA/Prenat (Renal Caps) 1 cap PO QDAY [facility] Last Admin: 05/18/18 09:45 Dose: 1 cap Documented by: Nifedipine (Procardia Xl) 90 mg PO BID [facility] Last Admin: 05/18/18 10:15 Dose: Not Given Documented by: Ondansetron HCl (Zofran) 4 mg IV Q8H PRN PRN Reason: Nausea And Vomiting Oxycodone/Acetaminophen (Percocet 5/325) 1 tab PO Q6H PRN PRN Reason: Pain, Moderate (4-6) Last Admin: 05/18/18 13:27 Dose: 1 tab Documented by: Pantoprazole Sodium (Protonix) 40 mg PO DAILY [facility] Last Admin: 05/18/18 09:45 Dose: 40 mg Documented by: Sodium Chloride (Sodium Chloride Flush Syringe 10 Ml) 10 ml IV BID [facility] Last Admin: 05/18/18 15:32 Dose: 10 ml Documented by: Sodium Chloride (Sodium Chloride Flush Syringe 10 Ml) 10 ml IV PRN PRN PRN Reason: LINE FLUSH Trazodone HCl (Desyrel) 100 mg PO QHS [facility] Last Admin: 05/18/18 01:16 Dose: Not Given Documented by: Review of Systems Constitutional: weight gain, no weight loss, no fever, no chills Ears, nose, mouth and throat: no deferred, no ear pain Cardiovascular: no chest pain, no orthopnea Respiratory: no cough, no cough with sputum Gastrointestinal: no abdominal pain, no nausea, no vomiting Genitourinary Male: no dysuria, no hematuria Musculoskeletal: no neck stiffness, no neck pain Integumentary: no rash, no pruritis Neurological: no head injury, no transient paralysis Psychiatric: no anxiety, no memory loss Endocrine: no cold intolerance, no heat intolerance Hematologic/Lymphatic: no easy bruising, no easy bleeding Allergic/Immunologic: no urticaria, no allergic rhinitis Exam - Vital Signs Vital signs: Vital Signs Temp Pulse Resp BP Pulse Ox 98.4 F 76 16 206/106 97 05/17/18 17:11 05/17/18 17:11 05/17/18 17:11 05/17/18 17:11 05/17/18 17:11 - General Appearance General appearance: well-developed, well-nourished EENT: ATNC, PERRL Neck: Present: neck supple Respiratory: Decreased Breath Sounds Heart: S1S2 Gastrointestinal: Present: normal, normoactive bowel sounds Integumentary: no rash, rash Neurologic: alert and oriented x3 Musculoskeletal: Absent: deferred, joint swelling Psychiatric: mood/affect appropriate Additional exam: Grade 1-2 lower extremity edema Results - Lab Results 05/17/18 17:47 05/17/18 22:30 Most recent lab results Calcium 8.5 mg/dL (8.4-10.2) 05/17/18 22:30 Magnesium 2.20 mg/dL (1.7-2.3) 05/17/18 17:47 - Image Kidney/bladder ultrasound: other (I reviewed chest x-ray which showed cardiom egaly and bilateral effusions) Assessment and Plan - Patient Problems (1) End stage renal disease Current Visit: Yes Status: Acute Plan to address problem: End stage renal disease Dialysis access: AVF Will initiate Hemodialysis. Ultrafiltration 3L as tolerated. (2) Acute on chronic respiratory failure with hypoxemia Current Visit: Yes Status: Acute Plan to address problem: Acute on chronic respiratory failure with hypoxemia On home oxygen Chest x-ray with cardiomegaly and effusions I would challenge target weight Ultrafiltration as tolerated (3) Hyperkalemia Current Visit: Yes Status: Acute Plan to address problem: Hyperkalemia secondary to renal failure Received insulin and dextrose and calcium gluconate in the emergency room also received a dose of Lasix Will initiate hemodialysis (4) Volume overload Current Visit: No Status: Chronic Plan to address problem: Volume overload Continue dry weight challenge Ultrafiltration goal 3 L Encourage fluid restriction (5) Anemia Current Visit: Yes Status: Acute Qualifiers: Chronic kidney disease stage: on chronic dialysis Plan to address problem: Moderate anemia hemoglobin is 8.8 g per DL Etiologies 2/2 underlying chronic kidney disease Check anemia panel Epogen with dialysis
[2018-05-19] MEDS: MORPHINE IV PRN ×3 (04:25→16:09)
[2018-05-19 07:00] LABS: Albumin 3.6 g/dL (3.9-5); Calcium 8.6 mg/dL (8.4-10.2)
[2018-05-19 07:02] LABS: Hematocrit 25.7 % (35.5-45.6); Hemoglobin 8.3 gm/dl (11.8-15.2); Mean Corpuscular HGB Conc 32 % (32-34); Mean Corpuscular Volume 88 fl (84-94); Platelet Count 127 K/mm3 (140-440); Red Blood Count 2.91 M/mm3 (3.65-5.03); Red Cell Distribution Width 18.9 % (13.2-15.2)
[2018-05-19 08:01] LABS: Basophils % (Manual) 0 % (0.0-1.8); Poikilocytosis 1+; Total Cells Counted 100
[2018-05-19 08:02] LABS: Hypochromasia 1+; Ovalocytes 1+; Platelet Estimate Consistent w Auto
[2018-05-19] MEDS: APRESOLINE PO SCH ×2 (08:30→14:32)
[2018-05-19] MEDS: CATAPRES PO SCH ×2 (08:30→14:34)
[2018-05-19] MEDS: PROTONIX PO SCH (10:09)
[2018-05-19] MEDS: Renal Caps PO SCH (10:09)
[2018-05-19] MEDS: XANAX PO SCH (10:09)
[2018-05-19] MEDS: HALFPRIN EC PO SCH (10:09)
[2018-05-19] MEDS: COREG PO SCH (10:09)
[2018-05-19] MEDS: PROCARDIA XL PO SCH (10:09)
[2018-05-19] MEDS: SODIUM CHLORIDE FLUSH SYRINGE 10 ML IV SCH (10:10)
--- NOTE | 2018-05-19 16:04 | Progress Note ---
Assessment and Plan - Patient Problems (1) End stage renal disease Current Visit: Yes Status: Acute Plan to address problem: End stage renal disease Dialysis access: AVF Will repeat Hemodialysis. Ultrafiltration 3L as tolerated. (2) Acute on chronic respiratory failure with hypoxemia Current Visit: Yes Status: Acute Plan to address problem: Acute on chronic respiratory failure with hypoxemia On home oxygen Chest x-ray with cardiomegaly and effusions I would challenge target weight Ultrafiltration as tolerated (3) Hyperkalemia Current Visit: Yes Status: Acute Plan to address problem: Hyperkalemia secondary to renal failure Received insulin and dextrose and calcium gluconate in the emergency room also received a dose of Lasix Will repeat hemodialysis (4) Volume overload Current Visit: No Status: Chronic Plan to address problem: Volume overload Continue dry weight challenge Ultrafiltration goal 3 L Encourage fluid restriction (5) Anemia Current Visit: Yes Status: Acute Qualifiers: Chronic kidney disease stage: on chronic dialysis Plan to address problem: Moderate anemia hemoglobin is 8.3 g per DL Etiologies 2/2 underlying chronic kidney disease [place] anemia panel [place] [id number] units of Epogen today Epogen with dialysis Subjective Principal diagnosis: Hyperkalemia and ESRD Interval history: Chief complaint shortness of breath/end stage renal disease 28 year old gentleman with medical history significant for hypertension, congestive heart failure, end stage renal disease on hemodialysis via a left arm AV fistula admitted for complaints of shortness of breath orthopnea and PND he dialyzes Tuesday at [facility] dialysis. Last dialysis was Tuesday. He reports worsening shortness of breath orthopnea PND and increasing oxygen requirements Patient had dialysis yesterday still has significant edema we will plan for additional dialysis again today. Remains on supplemental oxygen Still has some orthopnea Objective - Vital Signs Vital signs: Vital Signs - 12hr 05/19/18 05/19/18 05/19/18 04:25 04:55 05:16 Temperature 97.5 F L Pulse Rate 69 Respiratory 18 18 16 Rate Blood Pressure 113/59 O2 Sat by Pulse 90 Oximetry 05/19/18 05/19/18 05/19/18 08:30 10:09 13:47 Temperature 97.9 F Pulse Rate 60 Respiratory 22 Rate Blood Pressure 129/61 127/67 114/60 O2 Sat by Pulse 91 Oximetry 05/19/18 14:34 Temperature Pulse Rate Respiratory Rate Blood Pressure 110/60 O2 Sat by Pulse Oximetry - General Appearance General appearance: well-developed, well-nourished EENT: ATNC, PERRL Neck: no JVD Respiratory: Present: Rales, Decreased Breath Sounds Cardiology: regular, S1S2, other (grade 2 edema. ) Gastrointestinal: normal, normoactive bowel sounds Integumentary: no rash Neurologic: alert and oriented x3 Musculoskeletal: deferred Psychiatric: mood/affect appropriate - Lab 05/19/18 06:25 05/19/18 06:25 Most recent lab results Calcium 8.6 mg/dL (8.4-10.2) 05/19/18 06:25 Magnesium 2.20 mg/dL (1.7-2.3) 05/17/18 17:47 - Imaging Chest x-ray: report reviewed (Mammogram L no by about) Medications & Allergies - Medications Allergies/Adverse Reactions: Allergies heparin Allergy (Verified 04/21/18 14:26) lowers platelets Home Medications: Home Medications Medication Instructions Recorded Confirmed Last Taken Type Aspirin EC [Aspirin Enteric Coated 81 mg PO QDAY #30 tablet. 03/27/18 05/17/18 Unknown Rx TAB] AtorvaSTATin [Lipitor] 40 mg PO QHS #30 tab 03/27/18 05/17/18 Unknown Rx Carvedilol [Coreg] 25 mg PO BID #60 tablet 03/27/18 05/17/18 Unknown Rx Esomeprazole Magnesium [Nexium] 40 mg PO DAILY #30 capsule. 03/27/18 05/17/18 Unknown Rx Folic Acid/Vit B Comp W-C [Renal 1 cap PO QDAY #60 capsule 03/27/18 05/17/18 Unknown Rx Caps] cloNIDine [Catapres] 0.3 mg PO TID 30 Days tablet 03/27/18 05/17/18 Unknown Rx hydrALAZINE [Apresoline TAB] 100 mg PO TID #90 tab 03/27/18 05/17/18 Unknown Rx traZODone [Desyrel] 100 mg PO QHS #30 tablet 03/27/18 05/17/18 Unknown Rx NIFEdipine [Adalat cc] 90 mg PO BID 04/11/18 05/17/18 Unknown History Diclofenac Sodium [Voltaren] 100 gm TP Q6H #1 gel..gram. 04/21/18 05/17/18 Unknown Rx Active Medications: Generic Name Dose Route Start Last Admin Trade Name Freq PRN Reason Stop Dose Admin Acetaminophen 650 mg 05/17/18 19:15 Tylenol PO Q4H PRN Pain MILD(1-3)/Fever >100.5/JENKINS Albuterol 2.5 mg 05/17/18 19:15 Proventil IH Q4HRT PRN Shortness Of Breath Alprazolam 0.5 mg 05/17/18 22:00 05/19/18 10:09 Xanax PO 0.5 mg Q12HR [facility] Administration Aspirin 81 mg 05/18/18 10:00 05/19/18 10:09 Halfprin Ec PO 81 mg QDAY [facility] Administration Atorvastatin Calcium 40 mg 05/17/18 22:00 05/18/18 22:48 Lipitor PO 40 mg QHS [facility] Administration Carvedilol 25 mg 05/17/18 22:00 05/19/18 10:09 Coreg PO 25 mg BID [facility] Administration Clonidine HCl 0.3 mg 05/17/18 20:00 05/19/18 14:34 Catapres PO Not Given TID [facility] Dextrose 50 gm 05/17/18 18:48 05/17/18 18:56 D50w (25gm) Vial IV 50 gm PRN PRN Administration Hypoglycemia Hydralazine HCl 100 mg 05/17/18 20:00 05/19/18 14:32 Apresoline PO 100 mg TID [facility] Administration Miscellaneous Medication 100 gm 05/17/18 19:30 Diclofenac Sodium [Voltaren] TP Q6H [facility] Morphine Sulfate 4 mg 05/17/18 20:16 05/19/18 12:11 Morphine IV 4 mg Q4H PRN Administration Pain , Severe (7-10) Multivit/Ca Carb/B Cmplx/FA/Prenat 1 cap 05/18/18 10:00 05/19/18 10:09 Renal Caps PO 1 cap QDAY [facility] Administration Nifedipine 90 mg 05/17/18 22:00 05/19/18 10:09 Procardia Xl PO 90 mg BID [facility] Administration Ondansetron HCl 4 mg 05/17/18 19:15 Zofran IV Q8H PRN Nausea And Vomiting Oxycodone/Acetaminophen 1 tab 05/17/18 19:43 05/18/18 13:27 Percocet 5/325 PO 1 tab Q6H PRN Administration Pain, Moderate (4-6) Pantoprazole Sodium 40 mg 05/18/18 10:00 05/19/18 10:09 Protonix PO 40 mg DAILY [facility] Administration Sodium Chloride 10 ml 05/17/18 22:00 05/19/18 10:10 Sodium Chloride Flush Syringe 10 Ml IV 10 ml BID [facility] Administration Sodium Chloride 10 ml 05/17/18 19:15 Sodium Chloride Flush Syringe 10 Ml IV PRN PRN LINE FLUSH Trazodone HCl 100 mg 05/17/18 22:00 05/18/18 22:47 Desyrel PO 100 mg QHS [facility] Administration
[2018-05-19] MEDS ORDERED: PROCRIT IV ONE (16:14)
--- NOTE | 2018-05-19 16:39 | Discharge Summary ---
Providers - Providers Date of Admission: 05/17/18 19:15 Date of discharge: 05/19/18 Attending physician: MIRA BECERRIL 05/17/18 17:17 Consult to Physician [CONS] Urgent Comment: Consulting Provider: JOHN SMITH Physician Instructions: Reason For Exam: esrd [facility] care [facility]: [facility] Hospitalization Condition: Fair Hospital course: (1) End stage renal disease Current Visit: Yes Status: Acute Plan to address problem: Patient counselled to HD tomorrow as outpatient Next HD due on Tuesday Patient was emphasised to get HD tomorrow (2) Respiratory failure Current Visit: Yes Status: Acute Qualifiers: Chronicity: acute on chronic Respiratory failure complication: hypoxia Qualified Code(s): J96.21 - Acute and chronic respiratory failure with hypoxia Plan to address problem: Improved Sec to fluid overload Had HD 3 days in a row (3) Nicotine dependence unspecified, with withdrawal Current Visit: No Status: Acute Qualifiers: Nicotine product type: cigarettes Qualified Code(s): F17.213 - Nicotine dependence, cigarettes, with withdrawal Plan to address problem: Supportive care, smoking cessation counseling, (4) Pleural effusion Current Visit: No Status: Acute Plan to address problem: Improved (5) Essential hypertension Current Visit: No Status: Chronic Plan to address problem: BP under control (6) Hyperkalemia Current Visit: Yes Status: Acute Plan to address problem: Resolved 5.1 slightly high Disposition: DC-01 TO HOME OR SELFCARE Core Measure Documentation - Palliative Care Palliative Care/ Comfort Measures: Not Applicable - Core Measures Any of the following diagnoses?: none Exam - Constitutional Vitals: Temp Pulse Resp BP Pulse Ox 97.9 F 60 22 110/60 91 05/19/18 13:47 05/19/18 13:47 05/19/18 13:47 05/19/18 14:34 05/19/18 13:47 General appearance: Present: no acute distress, well-nourished - EENT Eyes: Present: PERRL ENT: hearing intact, clear oral mucosa - Neck Neck: Present: supple, normal ROM - Respiratory Respiratory effort: normal Respiratory: bilateral: CTA - Cardiovascular Heart rate: 78 Heart Sounds: Present: S1 & S2. Absent: rub, click - Extremities Extremities: no ischemia, pulses symmetrical, No edema Peripheral Pulses: within normal limits - Abdominal General gastrointestinal: Present: soft, non-tender, non-distended, normal bowel sounds Male genitourinary: Present: deferred - Rectal Rectal Exam: deferred - Integumentary Integumentary: Present: clear, warm, dry - Musculoskeletal Musculoskeletal: gait normal, strength equal bilaterally - Psychiatric Psychiatric: appropriate mood/affect, intact judgment & insight - Neurologic Neurologic: CNII-XII intact, moves all extremities - Allied Health Allied health notes reviewed: nursing, case management Plan Activity: no restrictions Diet: renal Follow up with: VANDANA AYERS MD [Primary Care Provider] - 3-5 Days
[2018-05-19 19:46] VITALS: BP 105/62
== END 2018-05-19 20:49 | disposition home or self-care (01) | DRG 189 ==
LOC: ED 16:47 → 3A 19:15
PROVIDERS: ADMIT Internal Medicine; ATTEND Internal Medicine
PROC: 5A1D70Z Performance of Urinary Filtration, Intermittent, Less than 6 Hours Per Day (ICD-10-PCS; principal; 2018-05-18)
PROC: 5A1D70Z Performance of Urinary Filtration, Intermittent, Less than 6 Hours Per Day (ICD-10-PCS; 2018-05-19)
DX: J96.21 Acute and chronic respiratory failure with hypoxia (principal); N18.6 End stage renal disease; F17.213 Nicotine dependence, cigarettes, with withdrawal; I13.2 Hypertensive heart and chronic kidney disease with heart failure and with stage 5 chronic kidney disease, or end stage renal disease; I42.0 Dilated cardiomyopathy; I50.22 Chronic systolic (congestive) heart failure; G89.29 Other chronic pain; E87.70 Fluid overload, unspecified; K21.9 Gastro-esophageal reflux disease without esophagitis; D63.1 Anemia in chronic kidney disease; E87.5 Hyperkalemia; Z99.2 Dependence on renal dialysis; Z91.19 Patient's noncompliance with other medical treatment and regimen; Z99.81 Dependence on supplemental oxygen; Z90.49 Acquired absence of other specified parts of digestive tract; Z82.49 Family history of ischemic heart disease and other diseases of the circulatory system; Z95.828 Presence of other vascular implants and grafts; Z88.8 Allergy status to other drugs, medicaments and biological substances; Z79.82 Long term (current) use of aspirin; Z79.899 Other long term (current) drug therapy; Z71.6 Tobacco abuse counseling; Z90.89 Acquired absence of other organs
CPT/HCPCS: 36415; 71045; 74176; 80048; 80053; 82550; 83735; 83880; 85007; 85025; 85027; 85610; 85730; 86850; 86870; 86900; 86901; 93005; 93010; 94640; 94760; 96365; 96375; G0378; A9270-GY; J0360; J0610; J0885; J1940; J2270; J3010; J7030

== ENCOUNTER 2018-05-22 09:14 | Inpatient (IN) | payer MEDICARE ==
[2018-05-22] MEDS ORDERED: ASPIRIN PO ONE (09:20)
[2018-05-22 09:54] LABS: Basophils # (Auto) 0.1 K/mm3 (0.0-0.1); Basophils % (Auto) 1.1 % (0.0-1.8); Eosinophils # (Auto) 0.1 K/mm3 (0.0-0.4); Eosinophils % (Auto) 0.8 % (0.0-4.3); Hematocrit 27.3 % (35.5-45.6); Hemoglobin 8.7 gm/dl (11.8-15.2); Lymphocytes # (Auto) 0.7 K/mm3 (1.2-5.4); Lymphocytes % (Auto) 8.6 % (13.4-35.0); Mean Corpuscular HGB Conc 32 % (32-34); Mean Corpuscular Volume 90 fl (84-94); Monocytes # (Auto) 0.7 K/mm3 (0.0-0.8); Monocytes % (Auto) 8.2 % (0.0-7.3); Platelet Count 158 K/mm3 (140-440); Red Blood Count 3.06 M/mm3 (3.65-5.03); Red Cell Distribution Width 18.6 % (13.2-15.2)
--- NOTE | 2018-05-22 10:07 | XRay Report ---
AP CHEST : 05/22/18 09:31 CLINICAL: Chest pain. COMPARISON:05/17/18 FINDINGS: Cardiomegaly, large bilateral pleural effusions and bilateral perihilar pulmonary edema are unchanged compared to the last exam.Partial consolidation of the left upper lobe and consolidation and/or atelectasis of the left lower lobe. No tubes or lines. The bones and soft tissues are unremarkable. IMPRESSION: CHF with large bilateral pleural effusions and bilateral perihilar pulmonary edema. No change.
[2018-05-22 10:10] LABS: Calcium 8.6 mg/dL (8.4-10.2)
--- NOTE | 2018-05-22 10:26 | Emergency Department Report ---
ED Shortness of Breath HPI - General Chief Complaint: Chest Pain Stated Complaint: SOB/CHEST PAIN/STOMACH PAIN Time Seen by Provider: 05/22/18 10:04 Source: patient Mode of arrival: Ambulatory Limitations: No Limitations - History of Present Illness Initial Comments: 28-year-old male presents to ED with complaint of chest pain and shortness of breath since last night. Patient has history of ESRD, CHF, chronic pericardial effusion, ascites, recurrent pleural effusions. The patient also complains of left upper quadrant abdominal pain, which he states he has had in the past. Patient states he has undergone multiple workups including CTs, colonoscopies, however no etiology for the pain has been found. States paracentesis usually relieves his pain. Patient chronically on 4 L O2, however O2 sats currently in the 70s on 4 L. Patient reported mid sternal chest pain, worse with movement and palpation. Patient states he was discharged from this hospital 3 days ago following an admission for shortness of breath. Patient reports he was dialyzed 2 days ago. Patient denies cough, fever. Renal: Brad [facility]: [facility] Complaint: shortness of breath, chest pain -: During the night Severity: moderate Quality: other (pressure-like) Consistency: constant Improves With: nothing Worsens With: movement Known History Of: congestive heart failure Associated Symptoms: chest pain, lower abdominal swelling, abdominal pain - Related Data Home Oxygen Therapy: Yes Home Oxygen Amount: 4 Liters Home Medications Medication Instructions Recorded Confirmed Last Taken NIFEdipine [Adalat cc] 90 mg PO BID 04/11/18 05/22/18 Unknown Previous Rx's Medication Instructions Recorded Last Taken Type AtorvaSTATin [Lipitor] 40 mg PO QHS #30 tab 03/27/18 Unknown Rx Esomeprazole Magnesium [Nexium] 40 mg PO DAILY #30 capsule. 03/27/18 Unknown Rx Folic Acid/Vit B Comp W-C [Renal 1 cap PO QDAY #60 capsule 03/27/18 Unknown Rx Caps] cloNIDine [Catapres] 0.3 mg PO TID 30 Days tablet 03/27/18 Unknown Rx hydrALAZINE [Apresoline TAB] 100 mg PO TID #90 tab 03/27/18 Unknown Rx traZODone [Desyrel] 100 mg PO QHS #30 tablet 03/27/18 Unknown Rx Diclofenac Sodium [Voltaren] 100 gm TP Q6H #1 gel..gram. 02/08/19 Unknown Rx ALBUTEROL NEB's [Proventil 0.083% 2.5 mg IH Q4HRT PRN nebu 05/19/18 Unknown Rx NEBS] ALPRAZolam [Xanax TAB] 0.5 mg PO Q12HR #20 tablet 05/19/18 Unknown Rx Aspirin EC [Aspirin Enteric Coated 81 mg PO QDAY tablet 05/19/18 Unknown Rx TAB] AtorvaSTATin [Lipitor] 40 mg PO QHS tablet 05/19/18 Unknown Rx Carvedilol [Coreg] 25 mg PO BID tablet 05/19/18 Unknown Rx Allergies Allergy/AdvReac Type Severity Reaction Status Date / Time heparin Allergy lowers Verified 04/21/18 14:26 platelets ED Review of Systems ROS: Stated complaint: SOB/CHEST PAIN/STOMACH PAIN Other details as noted in HPI Comment: All other systems reviewed and negative Constitutional: denies: chills, fever Respiratory: shortness of breath. denies: cough Cardiovascular: chest pain Gastrointestinal: abdominal pain. denies: nausea, vomiting ED Past Medical Hx - Past Medical History Previous Medical History?: Yes Hx Hypertension: Yes Hx Heart Attack/AMI: No Hx Congestive Heart Failure: Yes (4LPM at home) Hx Diabetes: No Hx Deep Vein Thrombosis: No Hx Pulmonary Embolism: No Hx GERD: Yes Hx Renal Disease: Yes (ESRD -) Hx Arthritis: Yes (SPINE) Hx Asthma: No Hx COPD: No Hx Tuberculosis: No Hx Dementia: No Hx HIV: No Additional medical history: Hidradenitis, EJF 40%, enlarged heart - Surgical History Past Surgical History?: Yes Hx Pacemaker: No Hx Cholecystectomy: No Hx Appendectomy: No Hx Breast Surgery: No Additional Surgical History: PD CATHETER - AND REMOVAL. AV FISTULA. LYMPH NODES REMOVED LEFT GROIN. TONSILLECTOMY. Patient does have a history of per itonitis with previous PD - Social History Smoking Status: Unknown if ever smoked Substance Use Type: None - Medications Home Medications: Home Medications Medication Instructions Recorded Confirmed Last Taken Type AtorvaSTATin [Lipitor] 40 mg PO QHS #30 tab 03/27/18 05/22/18 Unknown Rx Esomeprazole Magnesium [Nexium] 40 mg PO DAILY #30 capsule. 03/27/18 05/22/18 Unknown Rx Folic Acid/Vit B Comp W-C [Renal 1 cap PO QDAY #60 capsule 03/27/18 05/22/18 Unknown Rx Caps] cloNIDine [Catapres] 0.3 mg PO TID 30 Days tablet 03/27/18 05/22/18 Unknown Rx hydrALAZINE [Apresoline TAB] 100 mg PO TID #90 tab 03/27/18 05/22/18 Unknown Rx traZODone [Desyrel] 100 mg PO QHS #30 tablet 03/27/18 05/22/18 Unknown Rx NIFEdipine [Adalat cc] 90 mg PO BID 04/11/18 05/22/18 Unknown History Diclofenac Sodium [Voltaren] 100 gm TP Q6H #1 gel..gram. 04/21/18 05/22/18 Unknown Rx ALBUTEROL NEB's [Proventil 0.083% 2.5 mg IH Q4HRT PRN nebu 05/19/18 05/22/18 Unknown Rx NEBS] ALPRAZolam [Xanax TAB] 0.5 mg PO Q12HR #20 tablet 05/19/18 05/22/18 Unknown Rx Aspirin EC [Aspirin Enteric Coated 81 mg PO QDAY tablet 05/19/18 05/22/18 Unknown Rx TAB] AtorvaSTATin [Lipitor] 40 mg PO QHS tablet 05/19/18 05/22/18 Unknown Rx Carvedilol [Coreg] 25 mg PO BID tablet 05/19/18 05/22/18 Unknown Rx ED Physical Exam - General Limitations: No Limitations General appearance: alert - Head Head exam: Present: atraumatic, normocephalic - Eye Eye exam: Present: normal appearance - ENT ENT exam: Present: mucous membranes moist - Neck Neck exam: Present: normal inspection - Respiratory Respiratory exam: Present: rales, decreased breath sounds - Cardiovascular Cardiovascular Exam: Present: regular rate, normal rhythm - GI/Abdominal GI/Abdominal exam: Present: soft, tenderness (mild diffuse abdominal tenderness, worse in LUQ), other (edema to abdominal wall) - Extremities Exam Extremities exam: Present: other (1+ edema to BLE) - Neurological Exam Neurological exam: Present: alert, oriented X3 - Psychiatric Psychiatric exam: Present: normal affect, normal mood - Skin Skin exam: Present: warm, dry, intact, normal color. Absent: rash ED Course Vital Signs 05/22/18 05/22/18 09:20 11:10 Pulse Rate 80 Respiratory 30 H 18 Rate Blood Pressure 167/96 [Right] O2 Sat by Pulse 70 L Oximetry - Consultations Consultation #1: 05/22/18 10:39 Spoke w/ Dr Salinas. Will come and see patient. Consultation #2: 05/22/18 11:29 [facility], Angie, to see patient. ED Medical Decision Making - Lab Data Result diagrams: 05/22/18 09:42 05/22/18 09:42 - EKG Data -: EKG Interpreted by Me EKG shows normal: sinus rhythm, axis, intervals, QRS complexes, ST-T waves Rate: normal - EKG Data Interpretation: other (T wave inversions lateral leads) - Radiology Data Radiology results: report reviewed, image reviewed - Medical Decision Making 28-year-old male with past medical history is significant for ESRD, CHF, chronic pericardial effusion, recurrent pleural effusions presents to ED with acute on chronic hypoxemic respiratory failure. O2 sats 70% on 4 L O2. Patient tachypneic, in mild respiratory distress, so placed on BiPAP. Chest x-ray shows cardiomegaly, large bilateral pleural effusions, and perihilar pulmonary edema. Troponin elevated at 0.3, however this may be due to his renal failure. EKG shows no ST changes. [facility], to come and see patient. Spoke with Dr. Salinas, cupola charger, regarding dialysis. States he will come down and see the patient. Potassium mildly elevated at 5.5. Spoke w/ Dr Graham, hospitalist. States admit to Dr Iniguez, requests bridge orders be placed. - Differential Diagnosis CHF, ESRD, pulm edema, pleural effusion. Critical Care Time: Yes Critical care time in (mins) excluding proc time.: 35 Critical care attestation.: If time is entered above; I have spent that time in minutes in the direct care of this critically ill patient, excluding procedure time. Critical Care Time: 35 minutes ED Disposition Clinical Impression: Pleural effusion, Chest pain, Acute on chronic respiratory failure with hypoxemia Acute exacerbation of CHF (congestive heart failure) Qualifiers: Heart failure type: combined systolic and diastolic Qualified Code(s): I50.43 - Acute on chronic combined systolic (congestive) and diastolic (congestive) heart failure Disposition: OP ADMIT IP TO THIS HOSP Is pt being admited?: Yes Condition: Critical Instructions: Chest Pain (ED) Referrals: PRIMARY CARE, [Referring] - 3-5 Days Time of Disposition: 10:30
[2018-05-22 10:28] LABS: Chol/HDL Ratio 2.18 %
[2018-05-22] MEDS ORDERED: MORPHINE IV PRN (10:37)
[2018-05-22] MEDS ORDERED: ZOFRAN IV PRN (10:37)
[2018-05-22] MEDS ORDERED: TYLENOL PO PRN (10:37)
[2018-05-22] MEDS ORDERED: SODIUM CHLORIDE FLUSH SYRINGE 10 ML IV PRN ×2 (10:37)
[2018-05-22] MEDS ORDERED: PROVENTIL IH PRN (10:41)
--- NOTE | 2018-05-22 10:46 | History and Physical Report ---
History of Present Illness Date of examination: 05/22/18 Date of admission: 05/22/18 Chief complaint: chest pain with shortness of breath History of present illness: Mr Fidel is a 28 year old male with past medical hx of ESRD on HD (T,R,Sa), HTN, GERD, Dialated Cardiomyopathy, Systolic CHF(EF 40%), Nicotine Dependence, Noncompliance, Chronic Respiratory Failure on 5-6L Home Oxygen via [place] presents to ED for evaluation of shortness of breath and chest pain for about a day. The patient was recently discharged from the hospital following presentation for similar incident which resolved with Thoracentesis. He reports that on discharge he was doing well but began having recurrent shortness of breath despite compliance with medication, dialysis and tobacco cessation. He denied any cough but reported orthopnea and PND with exertional dyspnea reported and progress ively getting worse at rest. He on arrival to he ED was noted to have saturation in the 70s requiring BIPAP for improved oxygen saturation. Imaging studies was concerning for bilateral pleural effusion. The patient reports chest pain 10/10 with no radiation and was generalized across the chest. Cardiac records showed EF 15-20% from about 10months ago The thoracentesis done a few days ago removed 1.5Liters of fluids. Past History Past Medical History: anemia, arthritis, CAD, diabetes, hypertension, other (PULMONARY htn) Past Surgical History: Other (PCI) Social history: lives with family, smoking, full code. denies: IV drug use Family history: no significant family history Medications and Allergies Allergies Allergy/AdvReac Type Severity Reaction Status Date / Time heparin Allergy lowers Verified 04/21/18 14:26 platelets Home Medications Medication Instructions Recorded Confirmed Last Taken Type AtorvaSTATin [Lipitor] 40 mg PO QHS #30 tab 03/27/18 05/22/18 Unknown Rx Esomeprazole Magnesium [Nexium] 40 mg PO DAILY #30 capsule. 03/27/18 05/22/18 Unknown Rx Folic Acid/Vit B Comp W-C [Renal 1 cap PO QDAY #60 capsule 03/27/18 05/22/18 Unknown Rx Caps] cloNIDine [Catapres] 0.3 mg PO TID 30 Days tablet 03/27/18 05/22/18 Unknown Rx hydrALAZINE [Apresoline TAB] 100 mg PO TID #90 tab 03/27/18 05/22/18 Unknown Rx traZODone [Desyrel] 100 mg PO QHS #30 tablet 03/27/18 05/22/18 Unknown Rx NIFEdipine [Adalat cc] 90 mg PO BID 04/11/18 05/22/18 Unknown History Diclofenac Sodium [Voltaren] 100 gm TP Q6H #1 gel..gram. 04/21/18 05/22/18 Unknown Rx ALBUTEROL NEB's [Proventil 0.083% 2.5 mg IH Q4HRT PRN nebu 05/19/18 05/22/18 Unknown Rx NEBS] ALPRAZolam [Xanax TAB] 0.5 mg PO Q12HR #20 tablet 05/19/18 05/22/18 Unknown Rx Aspirin EC [Aspirin Enteric Coated 81 mg PO QDAY tablet 05/19/18 05/22/18 Unknown Rx TAB] AtorvaSTATin [Lipitor] 40 mg PO QHS tablet 05/19/18 05/22/18 Unknown Rx Carvedilol [Coreg] 25 mg PO BID tablet 05/19/18 05/22/18 Unknown Rx Active Meds: Active Medications Acetaminophen (Tylenol) 650 mg PO Q4H PRN PRN Reason: Pain MILD(1-3)/Fever >100.5/JENKINS Albuterol (Proventil) 2.5 mg IH Q4HRT PRN PRN Reason: Shortness Of Breath Alprazolam (Xanax) 0.5 mg PO Q12HR CHONG Aspirin (Halfprin Ec) 81 mg PO QDAY CHONG Atorvastatin Calcium (Lipitor) 40 mg PO QHS [facility] Carvedilol (Coreg) 25 mg PO BID [facility] Clonidine HCl (Catapres) 0.3 mg PO TID [facility] Hydralazine HCl (Apresoline) 100 mg PO TID [facility] Miscellaneous Medication (Esomeprazole Magnesium [Nexium]) 40 mg PO DAILY [facility] Miscellaneous Medication (Nifedipine [Adalat Cc]) 90 mg PO BID [facility] Morphine Sulfate (Morphine) 2 mg IV Q4H PRN PRN Reason: Pain, Moderate (4-6) Multivit/Ca Carb/B Cmplx/FA/Prenat (Renal Caps) 1 cap PO QDAY [facility] Ondansetron HCl (Zofran) 4 mg IV Q8H PRN PRN Reason: Nausea And Vomiting Sodium Chloride (Sodium Chloride Flush Syringe 10 Ml) 10 ml IV BID [facility] Sodium Chloride (Sodium Chloride Flush Syringe 10 Ml) 10 ml IV PRN PRN PRN Reason: LINE FLUSH Sodium Chloride (Sodium Chloride Flush Syringe 10 Ml) 10 ml IV PRN PRN PRN Reason: LINE FLUSH Trazodone HCl (Desyrel) 100 mg PO QHS [facility] Review of Systems All systems: negative Constitutional: fatigue, no fever, no chills, no sweats, no night sweats, no anorexia, no weakness, no malaise, no poor appetite Cardiovascular: chest pain, orthopnea, palpitations, edema, syncope Respiratory: shortness of breath, dyspnea on exertion, pain, home oxygen, no cough, no cough with sputum, no congestion, no wheezing, no pleurisy, no pain on inspiration, no snoring Gastrointestinal: abdominal pain, no nausea, no vomiting, no diarrhea, no constipation, no change in bowel habits, no coffee ground emesis Rectal: no pain, no incontinence, no bleeding Musculoskeletal: no neck stiffness, no neck pain, no shooting arm pain, no arm numbness/tingling, no morning stiffness, no muscle weakness, no fractures, no loss of height Integumentary: no pruritis, no wounds, no jaundice, no lesions, no darkening of skin, no acne Neurological: no transient paralysis, no weakness, no numbness, no tingling, no syncope, no tic, no aphasia, no confusion Psychiatric: anxiety, no memory loss, no change in sleep habits, no insomnia, no hypersomnia Endocrine: no heat intolerance, no excessive thirst, no nocturia, no weight change, no proptosis, no deepening of the voice, no high blood sugars, no low blood sugars Allergic/Immunologic: no urticaria, no allergic rhinitis Exam - Physical Exam Narrative exam: GENERAL: The patient is well-developed well-nourished male In acute distress on BIPAP. HEENT: Normocephalic. Atraumatic. Extraocular motions are intact. Patient has moist mucous membranes. NECK: Supple. Trachea midline CHEST/LUNGS: Occasional coarse breath sounds. Diminished breath sounds at the lung base. HEART/CARDIOVASCULAR: Regular. There is no tachycardia. There is no gallop rub or murmur. ABDOMEN: Abdomen is soft, nontender. Patient has normal bowel sounds. There is no abdominal distention. SKIN: There is no rash. There is no diaphoresis. NEURO: The patient is awake, alert, and oriented. The patient is cooperative. The patient has normal speech MUSCULOSKELETAL: There is no evidence of acute injury. - Constitutional Vitals: Temp Pulse Resp BP Pulse Ox 80 30 H 167/96 70 L 05/22/18 09:20 05/22/18 09:20 05/22/18 09:20 05/22/18 09:20 Results - Labs CBC & Chem 7: 05/22/18 09:42 05/22/18 09:42 Labs: Laboratory Last Values WBC 8.0 K/mm3 (4.5-11.0) 05/22/18 09:42 RBC 3.06 M/mm3 (3.65-5.03) L 05/22/18 09:42 Hgb 8.7 gm/dl (11.8-15.2) L 05/22/18 09:42 Hct 27.3 % (35.5-45.6) L 05/22/18 09:42 MCV 90 fl (84-94) 05/22/18 09:42 MCH 29 pg (28-32) 05/22/18 09:42 MCHC 32 % (32-34) 05/22/18 09:42 RDW 18.6 % (13.2-15.2) H 05/22/18 09:42 Plt Count 158 K/mm3 (140-440) 05/22/18 09:42 Lymph % (Auto) 8.6 % (13.4-35.0) L 05/22/18 09:42 [place] % (Auto) 8.2 % (0.0-7.3) H 05/22/18 09:42 Eos % (Auto) 0.8 % (0.0-4.3) 05/22/18 09:42 Baso % (Auto) 1.1 % (0.0-1.8) 05/22/18 09:42 Lymph # 0.7 K/mm3 (1.2-5.4) L 05/22/18 09:42 [place] # 0.7 K/mm3 (0.0-0.8) 05/22/18 09:42 Eos # 0.1 K/mm3 (0.0-0.4) 05/22/18 09:42 Baso # 0.1 K/mm3 (0.0-0.1) 05/22/18 09:42 Seg Neutrophils % 81.3 % (40.0-70.0) H 05/22/18 09:42 Seg Neutrophils # 6.5 K/mm3 (1.8-7.7) 05/22/18 09:42 Sodium 140 mmol/L (137-145) 05/22/18 09:42 Potassium 5.5 mmol/L (3.6-5.0) H 05/22/18 09:42 Chloride 102.4 mmol/L (98-107) 05/22/18 09:42 Carbon Dioxide 23 mmol/L (22-30) 05/22/18 09:42 Anion Gap 20 mmol/L 05/22/18 09:42 BUN 69 mg/dL (9-20) H 05/22/18 09:42 Creatinine 7.8 mg/dL (0.8-1.5) H 05/22/18 09:42 Estimated GFR 8 ml/min 05/22/18 09:42 BUN/Creatinine Ratio 9 % 05/22/18 09:42 Glucose 120 mg/dL (75-100) H 05/22/18 09:42 Calcium 8.6 mg/dL (8.4-10.2) 05/22/18 09:42 Troponin T 0.391 ng/mL (0.00-0.029) H* 05/22/18 09:42 Triglycerides 66 mg/dL (2-149) 05/22/18 09:42 Cholesterol 94 mg/dL (50-199) 05/22/18 09:42 LDL Cholesterol Direct 41 mg/dL (50-130) L 05/22/18 09:42 HDL Cholesterol 43 mg/dL (40-59) 05/22/18 09:42 Cholesterol/HDL Ratio 2.18 % 05/22/18 09:42 - Imaging and Cardiology Chest x-ray: image reviewed (bilateral pelural effusion) Assessment and Plan Assessment and plan: Mr Tuesday is a 28 year old male with past medical hx of ESRD on HD (T,R,Sa), HTN, GERD, Dialated Cardiomyopathy, Systolic CHF(EF 40%), Nicotine Dependence, Noncompliance, Chronic Respiratory Failure on 5-6L Home Oxygen via [place] presents to ED for evaluation of shortness of breath and chest pain for about a day. The patient was recently discharged from the hospital following presentation for similar incident which resolved with Thoracentesis. He reports that on discharge he was doing well but began having recurrent shortness of breath despite compliance with medication, dialysis and tobacco cessation. He denied any cough but reported orthopnea and PND with exertional dyspnea reported and progressively getting worse at rest. He on arrival to he ED was noted to have saturation in the 70s requiring BIPAP for improved oxygen saturation. Imaging studies was concerning for bilateral pleural effusion. The patient reports chest pain 10/10 with no radiation and was generalized across the chest. Cardiac records showed EF 15-20% from about 10months ago The thoracentesis done a few days ago removed 1.5Liters of fluids. Acute on chronic hypoxic respiratory failure; secondary to fluid overload End-stage renal disease on hemodialysis Hyperkalemia; due to ESRD, management per nephrology Nonischemic Dilated cardiomyopathy; ejection fraction 15 - 20% Recurrent Bilateral pleural effusion Pancytopenia hypertension; moderate control, Tobacco use disorder: Reports he quit two weeks ago Medical noncompliance; counseled advised to comply with hemodialysis medications and diet Chronic Ascities Plan Admit to telemetry Cardiology and Pulmonary consult Nephrology consult Patient may benefit from pleurex catheter, will await for pulmonary eval first. Patient on discharge should be enrolled in CHF pallative care program Wean BiPAP as tolerated Pain medication IR for thoracentesis and possible paracentesis. DVT/GI prophy The high probability of a clinically significant, sudden or life threatening deterioration of the [PULMONARY, CARDIAC, RENAL] system(s) required my full and direct attention, intervention and personal management. The aggregate critical care time was [75] minutes. This time is in addition to time spent performing reported procedures but includes the following: [X] Data Review and interpretation [X] Patient assessment and monitoring of vital signs [X] Documentation [X] Medication orders and management Advance Directives: Yes Plan of care discussed with patient/family: Yes
--- NOTE | 2018-05-22 11:14 | XRay Report ---
AP ABDOMEN: HISTORY: Abdominal pain. There is moderate stool throughout the colon and rectum. The abdominal gas pattern is unremarkable. No masses or organomegaly is identified and there is no gross evidence of free air or fluid. No significant soft tissue calcifications are noted. IMPRESSION: Fecal retention.
--- NOTE | 2018-05-22 12:30 | Consultation ---
History of Present Illness Consult date: 05/22/18 Consult reason: congestive heart failure History of present illness: Patient is a 28 year old male that has end stage renal disease on dialysis. Patient was just discharged from this hospital and returns 48hrs later with complaints of shortness of breath and chest pain. Patient denies fever and chills. Reports he was last dialyzed on Tuesday. Noted hypoxic on presentation, oxygen saturation of 70%, and is currently on Bipap. Chest x-ray reports pulmonary edema. 12 lead ECG is benign, normal sinus rhythm. Patient also has history of dilated cardiomyopathy documented by cardiac cath 10 months ago that showed no significant coronary artery disease but a decreased left ventricular ejection fraction 15-20%. Patient also has chronic anemia, hypertension, chronic hypoxic respiratory failure on home oxygen and chronic ascites with intermittent paracentesis. Medications and Allergies Allergies Allergy/AdvReac Type Severity Reaction Status Date / Time heparin Allergy lowers Verified 04/21/18 14:26 platelets Home Medications Medication Instructions Recorded Confirmed Last Taken Type AtorvaSTATin [Lipitor] 40 mg PO QHS #30 tab 03/27/18 05/22/18 Unknown Rx Esomeprazole Magnesium [Nexium] 40 mg PO DAILY #30 capsule. 03/27/18 05/22/18 Unknown Rx Folic Acid/Vit B Comp W-C [Renal 1 cap PO QDAY #60 capsule 03/27/18 05/22/18 Unknown Rx Caps] cloNIDine [Catapres] 0.3 mg PO TID 30 Days tablet 03/27/18 05/22/18 Unknown Rx hydrALAZINE [Apresoline TAB] 100 mg PO TID #90 tab 03/27/18 05/22/18 Unknown Rx traZODone [Desyrel] 100 mg PO QHS #30 tablet 03/27/18 05/22/18 Unknown Rx NIFEdipine [Adalat cc] 90 mg PO BID 04/11/18 05/22/18 Unknown History Diclofenac Sodium [Voltaren] 100 gm TP Q6H #1 gel..gram. 04/21/18 05/22/18 Un known Rx ALBUTEROL NEB's [Proventil 0.083% 2.5 mg IH Q4HRT PRN nebu 05/19/18 05/22/18 Unknown Rx NEBS] ALPRAZolam [Xanax TAB] 0.5 mg PO Q12HR #20 tablet 05/19/18 05/22/18 Unknown Rx Aspirin EC [Aspirin Enteric Coated 81 mg PO QDAY tablet 05/19/18 05/22/18 Unknown Rx TAB] AtorvaSTATin [Lipitor] 40 mg PO QHS tablet 05/19/18 05/22/18 Unknown Rx Carvedilol [Coreg] 25 mg PO BID tablet 05/19/18 05/22/18 Unknown Rx Active Meds: Active Medications Acetaminophen (Tylenol) 650 mg PO Q4H PRN PRN Reason: Pain MILD(1-3)/Fever >100.5/JENKINS Albuterol (Proventil) 2.5 mg IH Q4HRT PRN PRN Reason: Shortness Of Breath Alprazolam (Xanax) 0.5 mg PO Q12HR [facility] Aspirin (Halfprin Ec) 81 mg PO QDAY [facility] Atorvastatin Calcium (Lipitor) 40 mg PO QHS [facility] Carvedilol (Coreg) 25 mg PO BID [facility] Clonidine HCl (Catapres) 0.3 mg PO TID [facility] Hydralazine HCl (Apresoline) 100 mg PO TID [facility] Morphine Sulfate (Morphine) 2 mg IV Q4H PRN PRN Reason: Pain, Moderate (4-6) Last Admin: 05/22/18 11:10 Dose: 2 mg Documented by: Multivit/Ca Carb/B Cmplx/FA/Prenat (Renal Caps) 1 cap PO QDAY [facility] Nifedipine (Procardia Xl) 90 mg PO BID [facility] Ondansetron HCl (Zofran) 4 mg IV Q8H PRN PRN Reason: Nausea And Vomiting Pantoprazole Sodium (Protonix) 40 mg PO DAILY [facility] Sodium Chloride (Sodium Chloride Flush Syringe 10 Ml) 10 ml IV BID [facility] Sodium Chloride (Sodium Chloride Flush Syringe 10 Ml) 10 ml IV PRN PRN PRN Reason: LINE FLUSH Sodium Chloride (Sodium Chloride Flush Syringe 10 Ml) 10 ml IV PRN PRN PRN Reason: LINE FLUSH Trazodone HCl (Desyrel) 100 mg PO QHS [facility] Physical Examination Vital Signs Pulse Resp BP Pulse Ox 80 30 H 167/96 70 L 05/22/18 09:20 05/22/18 09:20 05/22/18 09:20 05/22/18 09:20 General appearance: other (on Bipap) Cardiac: Positive: Reg Rate and Rhythm Results 05/22/18 09:42 05/22/18 09:42 Lipids 05/22/18 Range/Units 09:42 Triglycerides 66 (2-149) mg/dL Cholesterol 94 (50-199) mg/dL HDL Cholesterol 43 (40-59) mg/dL Cholesterol/HDL Ratio 2.18 % CBC 05/22/18 Range/Units 09:42 WBC 8.0 (4.5-11.0) K/mm3 RBC 3.06 L (3.65-5.03) M/mm3 Hgb 8.7 L (11.8-15.2) gm/dl Hct 27.3 L (35.5-45.6) % Plt Count 158 (140-440) K/mm3 Lymph # 0.7 L (1.2-5.4) K/mm3 [place] # 0.7 (0.0-0.8) K/mm3 Eos # 0.1 (0.0-0.4) K/mm3 Baso # 0.1 (0.0-0.1) K/mm3 Comprehensive Metabolic Panel 05/22/18 Range/Units 09:42 Sodium 140 (137-145) mmol/L Potassium 5.5 H (3.6-5.0) mmol/L Chloride 102.4 (98-107) mmol/L Carbon Dioxide 23 (22-30) mmol/L BUN 69 H (9-20) mg/dL Creatinine 7.8 H (0.8-1.5) mg/dL Glucose 120 H (75-100) mg/dL Calcium 8.6 (8.4-10.2) mg/dL Assessment and Plan Volume overload Hyperkalemia ESRD on dialysis Anemia Hypertension Non-ischemic cardiomyopathy [facility] 07/2017: no significant coronary artery disease but a decreased left ventricular ejection fraction 15-20%. Chronic Ascities with intermittent paracentesis. Chronic anemia Chronic hypoxic respiratory failure on home oxygen
[2018-05-22] MEDS ORDERED: ASPIRIN ONE (12:42)
[2018-05-22] MEDS: CATAPRES PO SCH ×2 (15:54→20:43)
[2018-05-22] MEDS: APRESOLINE PO SCH ×2 (15:55→20:43)
[2018-05-22] MEDS: DILAUDID IV PRN ×2 (15:55→20:56)
[2018-05-22] MEDS: SODIUM CHLORIDE FLUSH SYRINGE 10 ML IV SCH (21:01)
[2018-05-22] MEDS: XANAX PO SCH (21:01)
[2018-05-22] MEDS: PROCARDIA XL PO SCH (21:01)
[2018-05-22] MEDS: COREG PO SCH (21:01)
[2018-05-22] MEDS: DESYREL PO SCH (21:06)
[2018-05-22] MEDS ORDERED: NON-FORMULARY (Nifedipine [Adalat Cc] 90 MG) PO SCH (22:00)
[2018-05-23] MEDS: DILAUDID IV PRN ×4 (03:58→20:52)
[2018-05-23 06:40] LABS: Basophils # (Auto) 0.1 K/mm3 (0.0-0.1); Basophils % (Auto) 1.1 % (0.0-1.8); Eosinophils # (Auto) 0.2 K/mm3 (0.0-0.4); Eosinophils % (Auto) 2.4 % (0.0-4.3); Hematocrit 25.3 % (35.5-45.6); Hemoglobin 7.9 gm/dl (11.8-15.2); Lymphocytes % (Auto) 14.3 % (13.4-35.0); Mean Corpuscular HGB Conc 31 % (32-34); Mean Corpuscular Volume 89 fl (84-94); Monocytes # (Auto) 0.5 K/mm3 (0.0-0.8); Monocytes % (Auto) 7.3 % (0.0-7.3); Platelet Count 156 K/mm3 (140-440); Red Blood Count 2.83 M/mm3 (3.65-5.03); Red Cell Distribution Width 18.5 % (13.2-15.2)
[2018-05-23 06:41] LABS: Calcium 8.1 mg/dL (8.4-10.2)
--- NOTE | 2018-05-23 07:55 | Progress Note ---
Assessment and Plan Assessment and plan: Mr Tuesday is a 28 year old male with past medical hx of ESRD on HD (T,R,Sa), HTN, GERD, Dialated Cardiomyopathy, Systolic CHF(EF 40%), Nicotine Dependence, Noncompliance, Chronic Respiratory Failure on 5-6L Home Oxygen via [place] presents to ED for evaluation of shortness of breath and chest pain for about a day. The patient was recently discharged from the hospital following presentation for similar incident which resolved with Thoracentesis. He reports that on discharge he was doing well but began having recurrent shortness of breath despite compliance with medication, dialysis and tobacco cessation. He denied any cough but reported orthopnea and PND with exertional dyspnea reported and progressive ly getting worse at rest. He on arrival to he ED was noted to have saturation in the 70s requiring BIPAP for improved oxygen saturation. Imaging studies was concerning for bilateral pleural effusion. The patient reports chest pain 10/10 with no radiation and was generalized across the chest. Cardiac records showed EF 15-20% from about 10months ago The thoracentesis done a few days ago removed 1.5Liters of fluids. Acute on chronic hypoxic respiratory failure; secondary to fluid overload End-stage renal disease on hemodialysis Hyperkalemia; due to ESRD, management per nephrology Nonischemic Dilated cardiomyopathy; ejection fraction 15 - 20% Recurrent Bilateral pleural effusion Pancytopenia hypertension; moderate control, Tobacco use disorder: Reports he quit two weeks ago Medical noncompliance; counseled advised to comply with hemodialysis medications and diet Chronic Ascities Plan Continue supportive care Awaiting Thoracentesis Give a dose of Kayaxalate Cardiology input noted Pulmonary AND Nephrology consult Patient may benefit from pleurex catheter, will await for pulmonary eval first. Patient on discharge should be enrolled in CHF palliative care program Wean BiPAP as tolerated Pain medication IR for thoracentesis and possible paracentesis. DVT/GI prophy History Interval history: Admitted with shortness of breath Patient seen and examined this am, still on BIPAP, still with shortness of breath. Hospitalist Physical - Physical exam Narrative exam: GENERAL: The patient is well-developed well-nourished male In acute distress on BIPAP. HEENT: Normocephalic. Atraumatic. Extraocular motions are intact. Patient has moist mucous membranes. NECK: Supple. Trachea midline CHEST/LUNGS: coarse breath sounds. continues on BIPAP. Diminished breath sounds at the lung base. HEART/CARDIOVASCULAR: Regular. There is no gallop rub or murmur. ABDOMEN: Abdomen is soft, nontender. Patient has normal bowel sounds. There is no abdominal distention. SKIN: There is no rash. There is no diaphoresis. NEURO: The patient is awake, alert, and oriented. The patient is cooperative. The patient has normal speech MUSCULOSKELETAL: There is no evidence of acute injury. - Constitutional Vitals: Temp Pulse Resp BP Pulse Ox 98.1 F 68 20 112/49 92 05/23/18 07:43 05/23/18 04:53 05/23/18 07:43 05/23/18 07:43 05/23/18 04:53 General appearance: Present: other (on Bipap) Results - Labs CBC & Chem 7: 05/23/18 05:24 05/23/18 05:24 Labs: Laboratory Last Values WBC 6.7 K/mm3 (4.5-11.0) 05/23/18 05:24 RBC 2.83 M/mm3 (3.65-5.03) L 05/23/18 05:24 Hgb 7.9 gm/dl (11.8-15.2) L 05/23/18 05:24 Hct 25.3 % (35.5-45.6) L 05/23/18 05:24 MCV 89 fl (84-94) 05/23/18 05:24 MCH 28 pg (28-32) 05/23/18 05:24 MCHC 31 % (32-34) L 05/23/18 05:24 RDW 18.5 % (13.2-15.2) H 05/23/18 05:24 Plt Count 156 K/mm3 (140-440) 05/23/18 05:24 Lymph % (Auto) 14.3 % (13.4-35.0) 05/23/18 05:24 [place] % (Auto) 7.3 % (0.0-7.3) 05/23/18 05:24 Eos % (Auto) 2.4 % (0.0-4.3) 05/23/18 05:24 Baso % (Auto) 1.1 % (0.0-1.8) 05/23/18 05:24 Lymph # 1.0 K/mm3 (1.2-5.4) L 05/23/18 05:24 [place] # 0.5 K/mm3 (0.0-0.8) 05/23/18 05:24 Eos # 0.2 K/mm3 (0.0-0.4) 05/23/18 05:24 Baso # 0.1 K/mm3 (0.0-0.1) 05/23/18 05:24 Seg Neutrophils % 74.9 % (40.0-70.0) H 05/23/18 05:24 Seg Neutrophils # 5.0 K/mm3 (1.8-7.7) 05/23/18 05:24 Sodium 141 mmol/L (137-145) 05/23/18 05:24 Potassium 6.1 mmol/L (3.6-5.0) H* 05/23/18 05:24 Chloride 99.6 mmol/L (98-107) 05/23/18 05:24 Carbon Dioxide 19 mmol/L (22-30) L 05/23/18 05:24 Anion Gap 29 mmol/L 05/23/18 05:24 BUN 75 mg/dL (9-20) H 05/23/18 05:24 Creatinine 8.3 mg/dL (0.8-1.5) H 05/23/18 05:24 Estimated GFR 8 ml/min 05/23/18 05:24 BUN/Creatinine Ratio 9 % 05/23/18 05:24 Glucose 69 mg/dL (75-100) L 05/23/18 05:24 Calcium 8.1 mg/dL (8.4-10.2) L 05/23/18 05:24 Troponin T 0.371 ng/mL (0.00-0.029) H* 05/22/18 15:52 NT-Pro-B Natriuret Pep > 07249 pg/mL (0-450) H 05/22/18 09:42 Triglycerides 66 mg/dL (2-149) 05/22/18 09:42 Cholesterol 94 mg/dL (50-199) 05/22/18 09:42 LDL Cholesterol Direct 41 mg/dL (50-130) L 05/22/18 09:42 HDL Cholesterol 43 mg/dL (40-59) 05/22/18 09:42 Cholesterol/HDL Ratio 2.18 % 05/22/18 09:42
[2018-05-23] MEDS ORDERED: KIONEX PO ONE (08:30)
--- NOTE | 2018-05-23 08:50 | Consultation ---
History of Present Illness - History of Present Illness Thank you for the consultation ! Patient was evaluated today My assessment and plan are as follows; End-stage renal disease: Currently in maintenance hemodialysis Respiratory failure resulting from congestive heart failure and noncompliance possibly COPD patient is currently home oxygen dependent Admitted with chest pain, patient is high risk respiratory failure: Multifactorial, pleural effusion, chronic tobacco, fluid overload, congestive heart failure, cardiomyopathy Severe dilated cardiomyopathy, Patient has chronic pleural effusion for which she does need thoracentesis Anemia in end-stage renal disease: Monitor and follow Secondary hyperparathyroidism: Check phosphorus and PTH level Chronic pancytopenia Peripheral edema less than 1+, diminished breath sounds bilaterally, Respiratory failure likely resulting from pleural effusion, COPD some from volume overload Hyperkalemia: Medical management as well as dialysis discussed with dialysis nurse about dialysis this morning long-term prognosis very poor, mortality risk high due to noncompliance and comorbidities Patient was adequately counseled and educated regarding multiple renal related issues. patient's prognosis remains guarded at this time All renal related questions were answered and simple Thai pertinent lab studies as well as imaging results were also discussed with patient We will continue to follow and make recommendations from renal standpoint. Thank you for the consultation Author: John Sun M.D. [facility], [address] [place] [address] Tel; [phone] Source of information: From current chart unable to provide history Due to respiratory failure History of present illness Patient is a 28-year-old noncompliant individual who has been on maintenance hemodialysis, patient continues to be noncompliant with fluid, diet lifestyle resulting in worsening of his health status. He has been admitted here with respiratory failure and hyperkalemia, he has also been noted to have chronic pleural effusion. Patient has been smoking up until 2 weeks ago and he could not smoke anymore because he was developing more and more shortness of breath. Patient was placed on BiPAP consultation was placed for management of end-stage renal disease Past medical history significant for End-stage renal disease Chronic noncompliance severe cardiomyopathy Diabetes mellitus type 2 hypertension Secondary hyperparathyroidism Recurrent pleural effusion Recurrent ascites Current allergies: Heparin Social history family history: Patient was smoking completely until 2 weeks ago Home medication for the medication reviewed Review of system swelling in both lower extremity access is currently working well which is a fistula, patient does feel short of breath Noted to be in respiratory failure All other review of systems negative Physical examination Vitals: Reviewed General: No acute distress HEENT: Oral mucosa moist no pallor or icterus Neck: Supple without any JVD thyromegaly or nodular mass Chest: prolonged expiratory phase Diminished breath sounds at lung base Heart: Regular rate and rhythm S1-S2 heard no S3-S4 Abdomen: Soft nontender, bowel sounds present no renal bruit no suprapubic masses no CVA tenderness noted Extremity: more than 1+edema dry skin no peripheral cyanosis Endocrine: Thyroid not enlarged Psychiatric: No agitation and aggression noted Musculoskeletal: No joint effusion noted Labs and x-rays: Reviewed from this admission Past History Past Medical History: anemia, arthritis, CAD, diabetes, hypertension, other (PULMONARY htn) Past Surgical History: Other (PCI) Social history: lives with family, smoking, full code. denies: IV drug use Family history: no significant family history Medications and Allergies Allergies Allergy/AdvReac Type Severity Reaction Status Date / Time heparin Allergy lowers Verified 04/21/18 14:26 platelets Home Medications Medication Instructions Recorded Confirmed Last Taken Type AtorvaSTATin [Lipitor] 40 mg PO QHS #30 tab 03/27/18 05/22/18 Unknown Rx Esomeprazole Magnesium [Nexium] 40 mg PO DAILY #30 capsule. 03/27/18 05/22/18 Unknown Rx Folic Acid/Vit B Comp W-C [Renal 1 cap PO QDAY #60 capsule 03/27/18 05/22/18 Unknown Rx Caps] cloNIDine [Catapres] 0.3 mg PO TID 30 Days tablet 03/27/18 05/22/18 Unknown Rx hydrALAZINE [Apresoline TAB] 100 mg PO TID #90 tab 03/27/18 05/22/18 Unknown Rx traZODone [Desyrel] 100 mg PO QHS #30 tablet 03/27/18 05/22/18 Unknown Rx NIFEdipine [Adalat cc] 90 mg PO BID 04/11/18 05/22/18 Unknown History Diclofenac Sodium [Voltaren] 100 gm TP Q6H #1 gel..gram. 04/21/18 05/22/18 Unknown Rx ALBUTEROL NEB's [Proventil 0.083% 2.5 mg IH Q4HRT PRN nebu 05/19/18 05/22/18 Unknown Rx NEBS] ALPRAZolam [Xanax TAB] 0.5 mg PO Q12HR #20 tablet 05/19/18 05/22/18 Unknown Rx Aspirin EC [Aspirin Enteric Coated 81 mg PO QDAY tablet 05/19/18 05/22/18 Unknown Rx TAB] AtorvaSTATin [Lipitor] 40 mg PO QHS tablet 05/19/18 05/22/18 Unknown Rx Carvedilol [Coreg] 25 mg PO BID tablet 05/19/18 05/22/18 Unknown Rx Active Meds: Active Medications Acetaminophen (Tylenol) 650 mg PO Q4H PRN PRN Reason: Pain MILD(1-3)/Fever >100.5/JENKINS Albuterol (Proventil) 2.5 mg IH Q4HRT PRN PRN Reason: Shortness Of Breath Alprazolam (Xanax) 0.[address] [facility] Last Admin: 05/22/18 21:01 Dose: 0.5 mg Documented by: Aspirin (Halfprin Ec) [address] [facility] Atorvastatin Calcium (Lipitor) [address] [facility] Last Admin: 05/22/18 21:01 Dose: 40 mg Documented by: Carvedilol (Coreg) [address] [facility] Last Admin: 05/22/18 21:01 Dose: 25 mg Documented by: Clonidine HCl (Catapres) 0.[address] [facility] Last Admin: 05/22/18 20:43 Dose: 0.3 mg Documented by: Dextrose (D50w (25gm) Syringe) 50 ml IV ONCE ONE Stop: 05/23/18 08:48 Hydralazine HCl (Apresoline) [address] [facility] Last Admin: 05/22/18 20:43 Dose: 100 mg Documented by: Hydromorphone HCl (Dilaudid) 1 mg IV Q4H PRN PRN Reason: Pain , Severe (7-10) Last Admin: 05/23/18 03:58 Dose: 1 mg Documented by: Multivit/Ca Carb/B Cmplx/FA/Prenat (Renal Caps) [address] [facility] Nifedipine (Procardia Xl) [address] [facility] Last Admin: 05/22/18 21:01 Dose: 90 mg Documented by: Ondansetron HCl (Zofran) 4 mg IV Q8H PRN PRN Reason: Nausea And Vomiting Pantoprazole Sodium (Protonix) [address] [facility] Sodium Chloride (Sodium Chloride Flush Syringe 10 Ml) [address] [facility] Last Admin: 05/22/18 21:01 Dose: 10 ml Documented by: Sodium Chloride (Sodium Chloride Flush Syringe 10 Ml) 10 ml IV PRN PRN PRN Reason: LINE FLUSH Trazodone HCl (Desyrel) [address] [facility] Last Admin: 05/22/18 21:06 Dose: 100 mg Documented by: Exam - Vital Signs Vital signs: Vital Signs Pulse Resp BP Pulse Ox 80 30 H 167/96 70 L 05/22/18 09:20 05/22/18 09:20 05/22/18 09:20 05/22/18 09:20 Results - Lab Results 05/23/18 05:24 05/23/18 05:24 Most recent lab results Calcium 8.1 mg/dL (8.4-10.2) L 05/23/18 05:24
[2018-05-23] MEDS: HALFPRIN EC PO SCH (09:07)
[2018-05-23] MEDS: APRESOLINE PO SCH ×3 (09:08→23:34)
[2018-05-23] MEDS: CATAPRES PO SCH ×3 (09:08→23:34)
[2018-05-23] MEDS: PROCARDIA XL PO SCH ×2 (09:09→23:32)
[2018-05-23] MEDS: COREG PO SCH ×2 (09:09→23:33)
[2018-05-23] MEDS: SODIUM CHLORIDE FLUSH SYRINGE 10 ML IV SCH ×2 (09:10→23:32)
[2018-05-23] MEDS: PROTONIX PO SCH (09:12)
[2018-05-23] MEDS: XANAX PO SCH ×2 (09:12→23:29)
[2018-05-23] MEDS: Renal Caps PO SCH (09:12)
[2018-05-23] MEDS ORDERED: NACL 0.9% 100 ML IV PRN (09:16)
[2018-05-23] MEDS ORDERED: D50W (25GM) Syringe IV ONE (10:00)
[2018-05-23] MEDS ORDERED: NON-FORMULARY (Esomeprazole Magnesium [Nexium] 40 MG) PO SCH (10:00)
--- NOTE | 2018-05-23 11:52 | Progress Note ---
Assessment and Plan Volume overload Bilateral pleural effusions Hyperkalemia ESRD on dialysis Anemia Hypertension Non-ischemic cardiomyopathy [facility] 07/2017: no significant coronary artery disease but a decreased left ventricular ejection fraction 15-20%. Chronic Ascities with intermittent paracentesis. Chronic anemia Chronic hypoxic respiratory failure on home oxygen Recommend: Dialysis for fluid management. Otherwise, conservative cardiac management. Subjective Date of service: 05/23/18 Interval history: Remains on Bipap therapy. For dialysis today. Objective Vital Signs Temp Pulse Resp BP Pulse Ox 05/23/18 11:31 61 92/47 05/23/18 11:15 62 88/43 05/23/18 11:00 60 93/51 05/23/18 10:45 98.1 F 60 20 93/51 05/23/18 09:08 66 05/23/18 07:43 98.1 F 20 112/49 05/23/18 04:53 98.0 F 68 20 100/46 92 05/23/18 04:16 97 H 16 100 05/23/18 00:45 96 H 14 99 05/22/18 21:01 84 153/93 05/22/18 20:43 84 153/93 05/22/18 20:21 98.0 F 84 20 153/93 96 05/22/18 19:49 91 H 26 H 98 05/22/18 16:08 97.5 F L 20 156/91 05/22/18 12:30 78 24 93 05/22/18 12:01 83 20 144/99 95 - Physical Examination General: No Apparent Distress HEENT: Positive: PERRL Cardiac: Positive: Reg Rate and Rhythm Neuro: Positive: Grossly Intact Extremities: Absent: edema - Labs and Meds CBC 05/23/18 Range/Units 05:24 WBC 6.7 (4.5-11.0) K/mm3 RBC 2.83 L (3.65-5.03) M/mm3 Hgb 7.9 L (11.8-15.2) gm/dl Hct 25.3 L (35.5-45.6) % Plt Count 156 (140-440) K/mm3 Lymph # 1.0 L (1.2-5.4) K/mm3 [place] # 0.5 (0.0-0.8) K/mm3 Eos # 0.2 (0.0-0.4) K/mm3 Baso # 0.1 (0.0-0.1) K/mm3 Comprehensive Metabolic Panel 05/23/18 Range/Units 05:24 Sodium 141 (137-145) mmol/L Potassium 6.1 H* (3.6-5.0) mmol/L Chloride 99.6 (98-107) mmol/L Carbon Dioxide 19 L (22-30) mmol/L BUN 75 H (9-20) mg/dL Creatinine 8.3 H (0.8-1.5) mg/dL Glucose 69 L (75-100) mg/dL Calcium 8.1 L (8.4-10.2) mg/dL
--- NOTE | 2018-05-23 12:49 | Consultation ---
History of Present Illness Consult date: 05/23/18 Requesting physician: MICHELET DIALLO Reason for consult: pleural effusion History of present illness: 28 y/o male admitted with acute on chronic respiratory failure. Pulmonary consulted secondary to bilateral pleural effusions. Currently on HD right now. Continues to take off bipap mask and desats readily. No family present Past History Past Medical History: anemia, arthritis, CAD, diabetes, hypertension, other (PULMONARY htn) Past Surgical History: Other (PCI) Social history: lives with family, smoking, full code. denies: IV drug use Family history: no significant family history Medications and Allergies Allergies Allergy/AdvReac Type Severity Reaction Status Date / Time heparin Allergy lowers Verified 04/21/18 14:26 platelets Home Medications Medication Instructions Recorded Confirmed Last Taken Type AtorvaSTATin [Lipitor] 40 mg PO QHS #30 tab 03/27/18 05/22/18 Unknown Rx Esomeprazole Magnesium [Nexium] 40 mg PO DAILY #30 capsule. 03/27/18 05/22/18 Unknown Rx Folic Acid/Vit B Comp W-C [Renal 1 cap PO QDAY #60 capsule 03/27/18 05/22/18 Unknown Rx Caps] cloNIDine [Catapres] 0.3 mg PO TID 30 Days tablet 03/27/18 05/22/18 Unknown Rx hydrALAZINE [Apresoline TAB] 100 mg PO TID #90 tab 03/27/18 05/22/18 Unknown Rx traZODone [Desyrel] 100 mg PO QHS #30 tablet 03/27/18 05/22/18 Unknown Rx NIFEdipine [Adalat cc] 90 mg PO BID 04/11/18 05/22/18 Unknown History Diclofenac Sodium [Voltaren] 100 gm TP Q6H #1 gel..gram. 04/21/18 05/22/18 Unknown Rx ALBUTEROL NEB's [Proventil 0.083% 2.5 mg IH Q4HRT PRN nebu 05/19/18 05/22/18 Unknown Rx NEBS] ALPRAZolam [Xanax TAB] 0.5 mg PO Q12HR #20 tablet 05/19/18 05/22/18 Unknown Rx Aspirin EC [Aspirin Enteric Coated 81 mg PO QDAY tablet 05/19/18 05/22/18 Unknown Rx TAB] AtorvaSTATin [Lipitor] 40 mg PO QHS tablet 05/19/18 05/22/18 Unknown Rx Carvedilol [Coreg] 25 mg PO BID tablet 05/19/18 05/22/18 Unknown Rx Active Meds: Active Medications Acetaminophen (Tylenol) 650 mg PO Q4H PRN PRN Reason: Pain MILD(1-3)/Fever >100.5/JENKINS Albuterol (Proventil) 2.5 mg IH Q4HRT PRN PRN Reason: Shortness Of Breath Alprazolam (Xanax) 0.5 mg PO Q12HR [facility] Last Admin: 05/23/18 09:12 Dose: 0.5 mg Documented by: Aspirin (Halfprin Ec) 81 mg PO QDAY [facility] Last Admin: 05/23/18 09:07 Dose: 81 mg Documented by: Atorvastatin Calcium (Lipitor) 40 mg PO QHS [facility] Last Admin: 05/22/18 21:01 Dose: 40 mg Documented by: Carvedilol (Coreg) 25 mg PO BID [facility] Last Admin: 05/23/18 09:09 Dose: Not Given Documented by: Clonidine HCl (Catapres) 0.3 mg PO TID [facility] Last Admin: 05/23/18 09:08 Dose: Not Given Documented by: Hydralazine HCl (Apresoline) 100 mg PO TID [facility] Last Admin: 05/23/18 09:08 Dose: Not Given Documented by: Hydromorphone HCl (Dilaudid) 1 mg IV Q4H PRN PRN Reason: Pain , Severe (7-10) Last Admin: 05/23/18 09:07 Dose: 1 mg Documented by: Sodium Chloride (Nacl 0.9%) 100 mls @ 999 mls/hr IV APRIL PRN PRN Reason: Hypotension Insulin Human Lispro (Humalog) 0 unit SUB-Q [facility]; Protocol Multivit/Ca Carb/B Cmplx/FA/Prenat (Renal Caps) 1 cap PO QDAY [facility] Last Admin: 05/23/18 09:12 Dose: 1 cap Documented by: Nifedipine (Procardia Xl) 90 mg PO BID [facility] Last Admin: 05/23/18 09:09 Dose: Not Given Documented by: Ondansetron HCl (Zofran) 4 mg IV Q8H PRN PRN Reason: Nausea And Vomiting Pantoprazole Sodium (Protonix) 40 mg PO DAILY [facility] Last Admin: 05/23/18 09:12 Dose: 40 mg Documented by: Sodium Chloride (Sodium Chloride Flush Syringe 10 Ml) 10 ml IV BID [facility] Last Admin: 05/23/18 09:10 Dose: 10 ml Documented by: Sodium Chloride (Sodium Chloride Flush Syringe 10 Ml) 10 ml IV PRN PRN PRN Reason: LINE FLUSH Trazodone HCl (Desyrel) 100 mg PO QHS [facility] Last Admin: 05/22/18 21:06 Dose: 100 mg Documented by: Review of Systems All systems: negative Physical Examination Vital signs: Vital Signs Pulse Resp BP Pulse Ox 80 30 H 167/96 70 L 05/22/18 09:20 05/22/18 09:20 05/22/18 09:20 05/22/18 09:20 General appearance: no acute distress, alert, other (appears older than stated age) Eyes: icteric ENT: oropharynx moist Neck: supple, JVD Effort: mildly labored Ascultation: Bilateral: rales Results - Laboratory Findings CBC and BMP: 05/24/18 05:25 05/24/18 05:25 Abnormal lab findings: Abnormal Labs 05/22/18 05/22/18 05/22/18 09:42 09:42 09:42 RBC 3.06 L Hgb 8.7 L Hct 27.3 L MCHC RDW 18.6 H Lymph % (Auto) 8.6 L [place] % (Auto) 8.2 H Lymph # 0.7 L Seg Neutrophils % 81.3 H Potassium 5.5 H Carbon Dioxide BUN 69 H Creatinine 7.8 H Glucose 120 H Calcium Troponin T 0.391 H* NT-Pro-B Natriuret Pep > 90788 H LDL Cholesterol Direct 41 L 05/22/18 05/22/18 05/23/18 13:11 15:52 05:24 RBC 2.83 L Hgb 7.9 L Hct 25.3 L MCHC 31 L RDW 18.5 H Lymph % (Auto) [place] % (Auto) Lymph # 1.0 L Seg Neutrophils % 74.9 H Potassium Carbon Dioxide BUN Creatinine Glucose Calcium Troponin T 0.324 H* 0.371 H* NT-Pro-B Natriuret Pep LDL Cholesterol Direct 05/23/18 05:24 RBC Hgb Hct MCHC RDW Lymph % (Auto) [place] % (Auto) Lymph # Seg Neutrophils % Potassium 6.1 H* Carbon Dioxide 19 L BUN 75 H Creatinine 8.3 H Glucose 69 L Calcium 8.1 L Troponin T NT-Pro-B Natriuret Pep LDL Cholesterol Direct - Diagnostic Findings Chest x-ray: image reviewed (bilateral moderate sized effusions) Assessment and Plan 28 y/o male with bilateral pleual effusions, ascities, and Hypertension with ESRD on HD, admitted with REspiratory failure. HD per renal Agree with thora after HD Bipap therapy PRN and QHS May need pleurx
[2018-05-23] MEDS: HumaLOG SUB-Q SCH ×3 (14:33→23:33)
[2018-05-23] MEDS: DESYREL PO SCH (23:29)
[2018-05-24] MEDS: DILAUDID IV PRN ×5 (03:18→23:06)
[2018-05-24 05:45] LABS: Hematocrit 23.6 % (35.5-45.6); Hemoglobin 7.7 gm/dl (11.8-15.2); Mean Corpuscular HGB Conc 33 % (32-34); Mean Corpuscular Volume 88 fl (84-94); Platelet Count 166 K/mm3 (140-440); Red Blood Count 2.68 M/mm3 (3.65-5.03); Red Cell Distribution Width 18.8 % (13.2-15.2)
[2018-05-24 06:03] LABS: Calcium 8.4 mg/dL (8.4-10.2)
[2018-05-24] MEDS: APRESOLINE PO SCH ×3 (09:27→22:59)
[2018-05-24] MEDS: PROTONIX PO SCH (09:27)
[2018-05-24] MEDS: Renal Caps PO SCH (09:27)
[2018-05-24] MEDS: COREG PO SCH ×2 (09:27→22:57)
[2018-05-24] MEDS: PROCARDIA XL PO SCH ×2 (09:27→22:58)
[2018-05-24] MEDS: HALFPRIN EC PO SCH (09:27)
[2018-05-24] MEDS: CATAPRES PO SCH ×3 (09:27→23:00)
[2018-05-24] MEDS: XANAX PO SCH ×2 (09:27→22:58)
[2018-05-24] MEDS: SODIUM CHLORIDE FLUSH SYRINGE 10 ML IV SCH ×2 (09:28→23:01)
--- NOTE | 2018-05-24 09:54 | Progress Note ---
Subjective Interval history: Patient was seen today for follow-up on multiple renal related issues Events of this hospitalization noted Has had hemodialysis yesterday Patient denies having any chest pain pressure or shortness of breath Vitals labs intake output medications were reviewed Social history: Reviewed Allergies: Reviewed Family history: Reviewed Physical examination HEENT: Oral mucosa moist no pallor or icterus Neck: Supple no JVD Chest: Diminished breath sounds crackles CVS: Regular rate and rhythm S1 and S2 heard Abdomen: Soft nontender no suprapubic masses no organomegaly appreciable Extremity: Dry skin less than 1+ peripheral edema Musculoskeletal: No joint effusion noted in knees and ankle Neurological: Alert awake Dermatology: No petechial rashes Psychiatry: No evidence of any agitation and aggression noted Assessment and plan End-stage renal disease: Patient will continue with hemodialysis, monitor dialysis related labs Continue with hemodialysis treatment Tuesday and Tuesday ultrafiltrate up to 3-1/2 L with hemodialysis as tolerated Hyperkalemia mostly resulting from noncompliance patient was counseled and educated his high risk in terms of adverse outcome from hyperkalemia including cardiac arrest and this was discussed with patient Recurrent pleural effusion, patient does need to follow-up with pulmonary in the outpatient setting regularly Anemia: Multifactorial, this is also nutritional as well Will keep him on erythropoietin 10,000 3 times a week Periodically he may require packed red blood cell transfusion Secondary hyperparathyroidism periodically check phosphorus and PTH level Hypertension and volume: , Adjust medications as needed, ultrafiltration as tolerated keep systolic blood pressure above 100 Malnutrition risk: High please consider high protein diet as well as nutrition follow-up, patient needs at least 1.5 g protein per KG body weight Chronic ongoing tobacco abuse/severe cardiomyopathy/dialysis status/declining health Short and long-term prognosis poor patient's mortality risk is high Patient was adequately counseled and educated regarding multiple renal related issues Pertinent lab findings were discussed with patient, patient does exhibit good understanding of renal issues We'll continue to follow and make recommendation from renal standpoint Objective - Vital Signs Vital signs: Vital Signs - 12hr 05/23/18 05/23/18 05/24/18 22:29 23:40 04:18 Temperature 98.0 F 98.1 F Pulse Rate 87 77 82 Respiratory 20 16 20 Rate Blood Pressure 131/76 137/81 O2 Sat by Pulse 95 95 92 Oximetry 05/24/18 05/24/18 04:45 08:31 Temperature 98.3 F Pulse Rate 78 Respiratory 20 16 Rate Blood Pressure 150/92 O2 Sat by Pulse 98 Oximetry - Lab 05/24/18 05:25 05/24/18 05:25 Most recent lab results Calcium 8.4 mg/dL (8.4-10.2) 05/24/18 05:25 Medications & Allergies - Medications Allergies/Adverse Reactions: Allergies heparin Allergy (Verified 04/21/18 14:26) lowers platelets Home Medications: Home Medications Medication Instructions Recorded Confirmed Last Taken Type AtorvaSTATin [Lipitor] 40 mg PO QHS #30 tab 03/27/18 05/22/18 Unknown Rx Esomeprazole Magnesium [Nexium] 40 mg PO DAILY #30 capsule.dr 03/27/18 05/22/18 Unknown Rx Folic Acid/Vit B Comp W-C [Renal 1 cap PO QDAY #60 capsule 03/27/18 05/22/18 Unknown Rx Caps] cloNIDine [Catapres] 0.3 mg PO TID 30 Days tablet 03/27/18 05/22/18 Unknown Rx hydrALAZINE [Apresoline TAB] 100 mg PO TID #90 tab 03/27/18 05/22/18 Unknown Rx traZODone [Desyrel] 100 mg PO QHS #30 tablet 03/27/18 05/22/18 Unknown Rx NIFEdipine [Adalat cc] 90 mg PO BID 04/11/18 05/22/18 Unknown History Diclofenac Sodium [Voltaren] 100 gm TP Q6H #1 gel..gram. 04/21/18 05/22/18 Unknown Rx ALBUTEROL NEB's [Proventil 0.083% 2.5 mg IH Q4HRT PRN nebu 05/19/18 05/22/18 Unknown Rx NEBS] ALPRAZolam [Xanax TAB] 0.5 mg PO Q12HR #20 tablet 05/19/18 05/22/18 Unknown Rx Aspirin EC [Aspirin Enteric Coated 81 mg PO QDAY tablet 05/19/18 05/22/18 Unknown Rx TAB] AtorvaSTATin [Lipitor] 40 mg PO QHS tablet 05/19/18 05/22/18 Unknown Rx Carvedilol [Coreg] 25 mg PO BID tablet 05/19/18 05/22/18 Unknown Rx Active Medications: Generic Name Dose Route Start Last Admin Trade Name Freq PRN Reason Stop Dose Admin Acetaminophen 650 mg 05/22/18 10:37 Tylenol PO Q4H PRN Pain MILD(1-3)/Fever >100.5/JENKINS Albuterol 2.5 mg 05/22/18 10:41 Proventil IH Q4HRT PRN Shortness Of Breath Alprazolam 0.5 mg 05/22/18 22:00 05/24/18 09:27 Xanax PO 0.5 mg Q12HR CHONG Administration Aspirin 81 mg 05/23/18 10:00 05/24/18 09:27 Halfprin Ec PO 81 mg QDAY CHONG Administration Atorvastatin Calcium 40 mg 05/22/18 22:00 05/23/18 23:29 Lipitor PO 40 mg QHS CHONG Administration Carvedilol 25 mg 05/22/18 22:00 05/24/18 09:27 Coreg PO 25 mg BID CHONG Administration Clonidine HCl 0.3 mg 05/22/18 14:00 05/24/18 09:27 Catapres PO 0.3 mg TID CHONG Administration Hydralazine HCl 100 mg 05/22/18 14:00 05/24/18 09:27 Apresoline PO 100 mg TID CHONG Administration Hydromorphone HCl 1 mg 05/22/18 12:33 05/24/18 09:27 Dilaudid IV 1 mg Q4H PRN Administration Pain , Severe (7-10) Sodium Chloride 100 mls @ 999 mls/hr 05/23/18 09:16 Nacl 0.9% IV APRIL PRN Hypotension Insulin Human Lispro 0 unit 05/23/18 11:30 05/23/18 23:33 Humalog SUB-Q Not Given [facility] Protocol Multivit/Ca Carb/B Cmplx/FA/Prenat 1 cap 05/23/18 10:00 05/24/18 09:27 Renal Caps PO 1 cap QDAY CHONG Administration Nifedipine 90 mg 05/22/18 22:00 05/24/18 09:27 Procardia Xl PO 90 mg BID CHONG Administration Ondansetron HCl 4 mg 05/22/18 10:37 Zofran IV Q8H PRN Nausea And Vomiting Pantoprazole Sodium 40 mg 05/23/18 10:00 05/24/18 09:27 Protonix PO 40 mg DAILY CHONG Administration Sodium Chloride 10 ml 05/22/18 22:00 05/24/18 09:28 Sodium Chloride Flush Syringe 10 Ml IV 10 ml BID CHONG Administration Sodium Chloride 10 ml 05/22/18 10:37 Sodium Chloride Flush Syringe 10 Ml IV PRN PRN LINE FLUSH Trazodone HCl 100 mg 05/22/18 22:00 05/23/18 23:29 Desyrel PO 100 mg QHS CHONG Administration
--- NOTE | 2018-05-24 10:31 | Progress Note ---
Assessment and Plan Volume overload Bilateral pleural effusions Hyperkalemia ESRD on dialysis Anemia Hypertension Non-ischemic cardiomyopathy [facility] 07/2017: no significant coronary artery disease but a decreased left ventricular ejection fraction 15-20%. Chronic Ascities with intermittent paracentesis. Chronic anemia Chronic hypoxic respiratory failure on home oxygen Conservative cardiac management. Subjective Date of service: 05/24/18 Interval history: Venturi mask is in place. No distress noted. Objective Vital Signs Temp Pulse Resp BP Pulse Ox 05/24/18 08:31 98.3 F 16 150/92 05/24/18 04:45 78 20 98 05/24/18 04:18 98.1 F 82 20 137/81 92 05/23/18 23:40 98.0 F 77 16 131/76 95 05/23/18 22:29 87 20 95 05/23/18 20:15 97.5 F L 77 16 119/59 90 05/23/18 18:43 98.3 F 18 101/44 05/23/18 15:30 98.3 F 59 L 20 120/65 05/23/18 15:01 60 112/62 05/23/18 14:45 59 L 110/58 05/23/18 14:30 58 L 110/57 05/23/18 14:15 57 L 109/79 05/23/18 14:00 58 L 105/56 05/23/18 13:45 55 L 104/52 05/23/18 13:30 58 L 97/53 05/23/18 13:15 55 L 99/49 05/23/18 13:00 56 L 97/51 05/23/18 12:45 59 L 92/48 05/23/18 12:30 60 98/44 05/23/18 12:15 61 90/40 05/23/18 12:00 60 89/45 05/23/18 11:45 62 90/42 05/23/18 11:31 61 92/47 05/23/18 11:15 62 88/43 05/23/18 11:00 60 93/51 05/23/18 10:45 98.1 F 60 20 93/51 - Physical Examination General: No Apparent Distress HEENT: Positive: PERRL Cardiac: Positive: Reg Rate and Rhythm Lungs: Positive: Decreased Breath Sounds Neuro: Positive: Grossly Intact Extremities: Absent: edema - Labs and Meds CBC 05/24/18 Range/Units 05:25 WBC 7.5 (4.5-11.0) K/mm3 RBC 2.68 L (3.65-5.03) M/mm3 Hgb 7.7 L (11.8-15.2) gm/dl Hct 23.6 L (35.5-45.6) % Plt Count 166 (140-440) K/mm3 Comprehensive Metabolic Panel 05/24/18 Range/Units 05:25 Sodium 140 (137-145) mmol/L Potassium 4.5 D (3.6-5.0) mmol/L Chloride 99.8 (98-107) mmol/L Carbon Dioxide 28 D (22-30) mmol/L BUN 42 H (9-20) mg/dL Creatinine 5.4 H (0.8-1.5) mg/dL Glucose 81 (75-100) mg/dL Calcium 8.4 (8.4-10.2) mg/dL
--- NOTE | 2018-05-24 12:06 | Progress Note ---
Assessment and Plan 28 y/o male with bilateral pleual effusions, ascities, and Hypertension with ESRD on HD, admitted with REspiratory failure. Patient still groggy from drugs given in Radiology but will discuss the possibility of pleurx catheter for comfort purposes. Subjective Date of service: 05/24/18 Interval history: No acute events. Just returned from thoracentesis on the right. Feels better. still on VEnti mask. Per patient has to be tapped almost every 2 weeks. Objective Vital Signs - 12hr 05/24/18 05/24/18 05/24/18 04:18 04:45 08:31 Temperature 98.1 F 98.3 F Pulse Rate 82 78 Respiratory 20 20 16 Rate Blood Pressure 137/81 150/92 O2 Sat by Pulse 92 98 Oximetry 05/24/18 10:00 Temperature Pulse Rate Respiratory Rate Blood Pressure O2 Sat by Pulse 97 Oximetry CBC and BMP: 05/24/18 05:25 05/24/18 05:25 Abnormal lab findings: Abnormal Labs 05/22/18 05/22/18 05/22/18 09:42 09:42 09:42 RBC 3.06 L Hgb 8.7 L Hct 27.3 L MCHC RDW 18.6 H Lymph % (Auto) 8.6 L [place] % (Auto) 8.2 H Lymph # 0.7 L Seg Neutrophils % 81.3 H Potassium 5.5 H Carbon Dioxide BUN 69 H Creatinine 7.8 H Glucose 120 H Calcium Troponin T 0.391 H* NT-Pro-B Natriuret Pep > 95573 H LDL Cholesterol Direct 41 L 05/22/18 05/22/18 05/23/18 13:11 15:52 05:24 RBC 2.83 L Hgb 7.9 L Hct 25.3 L MCHC 31 L RDW 18.5 H Lymph % (Auto) [place] % (Auto) Lymph # 1.0 L Seg Neutrophils % 74.9 H Potassium Carbon Dioxide BUN Creatinine Glucose Calcium Troponin T 0.324 H* 0.371 H* NT-Pro-B Natriuret Pep LDL Cholesterol Direct 05/23/18 05/24/18 05/24/18 05:24 05:25 05:25 RBC 2.68 L Hgb 7.7 L Hct 23.6 L MCHC RDW 18.8 H Lymph % (Auto) [place] % (Auto) Lymph # Seg Neutrophils % Potassium 6.1 H* Carbon Dioxide 19 L BUN 75 H 42 H Creatinine 8.3 H 5.4 H Glucose 69 L Calcium 8.1 L Troponin T NT-Pro-B Natriuret Pep LDL Cholesterol Direct
--- NOTE | 2018-05-24 13:36 | Ultrasound Report ---
ULTRASOUND THORACENTESIS History: Shortness of breath, right pleural effusion Description of procedure: Informed consent was obtained. Sterile technique was utilized. 1% lidocaine for skin anesthesia. Using ultrasound guidance, a 5 [place] centesis needle was advance into the right pleural space. There was spontaneous return of clear yellow fluid. 1.5 L of fluid was aspirated and discarded. No complications. Impression: Successful ultrasound-guided right thoracentesis.
--- NOTE | 2018-05-24 13:38 | Ultrasound Report ---
ULTRASOUND ABDOMEN LIMITED History: Abdominal pain. Findings: All 4 quadrants of the abdomen were scanned for ascites for ultrasound guided paracentesis. No significant ascites was demonstrated. No pocket large enough for ultrasound guided paracentesis was found. Impression: No significant ascites is demonstrated for ultrasound guided paracentesis.
[2018-05-24] MEDS: HumaLOG SUB-Q SCH ×2 (13:43→23:00)
--- NOTE | 2018-05-24 13:49 | Procedure Note ---
Date of procedure: 05/24/18 Pre-op diagnosis: right pleural effusion Post-op diagnosis: same Procedure: US thoracentesis Findings: large right pleural effusion Anesthesia: local Surgeon: AR ALVAREZ Estimated blood loss: none Pathology: none Specimen disposition: discarded Condition: stable Disposition: floor
--- NOTE | 2018-05-24 14:44 | XRay Report ---
AP CHEST: HISTORY: Short of breath, recent right thoracentesis Recent ultrasound-guided right thoracentesis was performed in which 1500 cc of fluid was removed. Followup chest x-ray demonstrates no evidence for pneumothorax. There is near-complete evacuation of the right pleural fluid. A moderate left pleural effusion remains. Cardiomegaly and pulmonary venous congestion are relatively stable. IMPRESSION: Near complete evacuation of the right pleural effusion. No pneumothorax.
[2018-05-24] MEDS ORDERED: NACL 0.9 (PRIMING MACHINE ONLY DIALYSIS) MC ONE (17:06)
--- NOTE | 2018-05-24 18:14 | Progress Note ---
Assessment and Plan Assessment and plan: Mr Tuesday is a 28 year old male with past medical hx of ESRD on HD (T,R,Sa), HTN, GERD, Dialated Cardiomyopathy, Systolic CHF(EF 40%), Nicotine Dependence, Noncompliance, Chronic Respiratory Failure on 5-6L Home Oxygen via [place] presents to ED for evaluation of shortness of breath and chest pain for about a day. The patient was recently discharged from the hospital following presentation for similar incident which resolved with Thoracentesis. He reports that on discharge he was doing well but began having recurrent shortness of breath despite compliance with medication, dialysis and tobacco cessation. He denied any cough but reported orthopnea and PND with exertional dyspnea reported and progressive ly getting worse at rest. He on arrival to he ED was noted to have saturation in the 70s requiring BIPAP for improved oxygen saturation. Imaging studies was concerning for bilateral pleural effusion. The patient reports chest pain 10/10 with no radiation and was generalized across the chest. Cardiac records showed EF 15-20% from about 10months ago The thoracentesis done a few days ago removed 1.5Liters of fluids. Acute on chronic hypoxic respiratory failure; secondary to fluid overload End-stage renal disease on hemodialysis Hyperkalemia; due to ESRD, management per nephrology Nonischemic Dilated cardiomyopathy; ejection fraction 15 - 20% Recurrent Bilateral pleural effusion Pancytopenia hypertension; moderate control, Tobacco use disorder: Reports he quit two weeks ago Medical noncompliance; counseled advised to comply with hemodialysis medications and diet Chronic Ascities Plan Continue supportive care Awaiting Thoracentesis got dialysis yesterday Cardiology input noted Pulmonary AND Nephrology consult Patient may benefit from pleurex catheter, will await for pulmonary eval first. Patient on discharge should be enrolled in CHF palliative care program Wean BiPAP as tolerated Pain medication IR for thoracentesis and possible paracentesis. DVT/GI prophy History Interval history: Admitted with shortness of breath Patient seen and examined this am, now down to ventimask after dialysis yesterday. Awaiting thoracentesis when evaluated this am. Hospitalist Physical - Physical exam Narrative exam: GENERAL: The patient is well-developed well-nourished male In Mild distress and on Venturi mask. HEENT: Normocephalic. Atraumatic. Extraocular motions are intact. Patient has moist mucous membranes. NECK: Supple. Trachea midline CHEST/LUNGS: coarse breath sounds. continues on BIPAP. Diminished breath sounds at the lung base. HEART/CARDIOVASCULAR: Regular. There is no gallop rub or murmur. ABDOMEN: Abdomen is soft, nontender. Patient has normal bowel sounds. There is no abdominal distention. SKIN: There is no rash. There is no diaphoresis. NEURO: The patient is awake, alert, and oriented. The patient is cooperative. The patient has normal speech MUSCULOSKELETAL: There is no evidence of acute injury. - Constitutional Vitals: Temp Pulse Resp BP Pulse Ox 98.6 F 61 20 98/50 97 05/24/18 17:00 05/24/18 17:00 05/24/18 17:00 05/24/18 17:00 05/24/18 12:45 General appearance: Present: other (on Bipap) Results - Labs CBC & Chem 7: 05/24/18 05:25 05/24/18 05:25 Labs: Laboratory Last Values WBC 7.5 K/mm3 (4.5-11.0) 05/24/18 05:25 RBC 2.68 M/mm3 (3.65-5.03) L 05/24/18 05:25 Hgb 7.7 gm/dl (11.8-15.2) L 05/24/18 05:25 Hct 23.6 % (35.5-45.6) L 05/24/18 05:25 MCV 88 fl (84-94) 05/24/18 05:25 MCH 29 pg (28-32) 05/24/18 05:25 MCHC 33 % (32-34) 05/24/18 05:25 RDW 18.8 % (13.2-15.2) H 05/24/18 05:25 Plt Count 166 K/mm3 (140-440) 05/24/18 05:25 Lymph % (Auto) 14.3 % (13.4-35.0) 05/23/18 05:24 [place] % (Auto) 7.3 % (0.0-7.3) 05/23/18 05:24 E[place] % (Auto) 2.4 % (0.0-4.3) 05/23/18 05:24 Baso % (Auto) 1.1 % (0.0-1.8) 05/23/18 05:24 Lymph # 1.0 K/mm3 (1.2-5.4) L 05/23/18 05:24 [place] # 0.5 K/mm3 (0.0-0.8) 05/23/18 05:24 Eos # 0.2 K/mm3 (0.0-0.4) 05/23/18 05:24 Baso # 0.1 K/mm3 (0.0-0.1) 05/23/18 05:24 Seg Neutrophils % 74.9 % (40.0-70.0) H 05/23/18 05:24 Seg Neutrophils # 5.0 K/mm3 (1.8-7.7) 05/23/18 05:24 Sodium 140 mmol/L (137-145) 05/24/18 05:25 Potassium 4.5 mmol/L (3.6-5.0) D 05/24/18 05:25 Chloride 99.8 mmol/L (98-107) 05/24/18 05:25 Carbon Dioxide 28 mmol/L (22-30) D 05/24/18 05:25 Anion Gap 17 mmol/L 05/24/18 05:25 BUN 42 mg/dL (9-20) H 05/24/18 05:25 Creatinine 5.4 mg/dL (0.8-1.5) H 05/24/18 05:25 Estimated GFR 13 ml/min 05/24/18 05:25 BUN/Creatinine Ratio 8 % 05/24/18 05:25 Glucose 81 mg/dL (75-100) 05/24/18 05:25 Calcium 8.4 mg/dL (8.4-10.2) 05/24/18 05:25 Troponin T 0.371 ng/mL (0.00-0.029) H* 05/22/18 15:52 NT-Pro-B Natriuret Pep > 75804 pg/mL (0-450) H 05/22/18 09:42 Triglycerides 66 mg/dL (2-149) 05/22/18 09:42 Cholesterol 94 mg/dL (50-199) 05/22/18 09:42 LDL Cholesterol Direct 41 mg/dL (50-130) L 05/22/18 09:42 HDL Cholesterol 43 mg/dL (40-59) 05/22/18 09:42 Cholesterol/HDL Ratio 2.18 % 05/22/18 09:42
[2018-05-24] MEDS: PROCRIT SUB-Q PRN (19:59)
[2018-05-24] MEDS: DESYREL PO SCH (22:57)
[2018-05-25] MEDS: DILAUDID IV PRN ×4 (02:46→19:56)
[2018-05-25] MEDS: HumaLOG SUB-Q SCH ×3 (08:03→22:10)
--- NOTE | 2018-05-25 09:12 | Progress Note ---
Subjective Interval history: Patient was seen today for follow-up on multiple renal related issues Events of this hospitalization noted He is currently status post thoracentesis yesterday Admitted with respiratory failure hyperkalemia and noncompliance Vitals labs intake output medications were reviewed Social history: Reviewed Allergies: Reviewed Family history: Reviewed Physical examination HEENT: Oral mucosa moist no pallor or icterus Neck: Supple no JVD Chest: Diminished breath sounds crackles Lung sounds are better post thoracentesis CVS: Regular rate and rhythm S1 and S2 heard Abdomen: Soft nontender no suprapubic masses no organomegaly appreciable Extremity: Dry skin less than 1+ peripheral edema Musculoskeletal: No joint effusion noted in knees and ankle Neurological: Alert awake Dermatology: No petechial rashes Psychiatry: No evidence of any agitation and aggression noted Assessment and plan End-stage renal disease: Patient will continue with hemodialysis, monitor dialysis related labs continue with hemodialysis Tuesday Ultrafiltration as tolerated, patient drinks excessive amount of fluid despite being counseled and educated Hyperkalemia better during hospitalization suggestive of dietary noncompliance Recurrent pleural effusion status post thoracentesis patient is currently being considered for Pleurx catheter he will need to follow-up with pulmonary fairly regularly to avoid this issue Noncompliance with diet, lifestyle, tobacco, fluid, resulting in recurrent hospitalization, patient must take responsibility for his health His mortality risk is also very high and he has been educated about this on multiple occasion Anemia: Currently on erythropoietin 3 times per week Continue to monitor dialysis related labs Must comply with fluid restriction: Educated on multiple occasions Malnutrition risk: High please consider high protein diet as well as nutrition follow-up, patient needs at least 1.5 g protein per KG body weight Chronic ongoing tobacco abuse/severe cardiomyopathy/dialysis status/declining health We'll continue to follow and make recommendation from renal standpoint Objective - Vital Signs Vital signs: Vital Signs - 12hr 05/24/18 05/24/18 05/24/18 21:20 21:22 21:45 Temperature 98.3 F Pulse Rate 70 58 L 72 Respiratory 18 20 Rate Blood Pressure 110/55 O2 Sat by Pulse 94 Oximetry 05/24/18 05/25/18 05/25/18 22:58 02:46 04:01 Temperature 97.3 F L 97.5 F L Pulse Rate 70 72 Respiratory 16 20 18 Rate Blood Pressure 107/52 121/68 O2 Sat by Pulse 93 93 Oximetry 05/25/18 04:44 Temperature Pulse Rate Respiratory Rate Blood Pressure O2 Sat by Pulse 95 Oximetry - Lab 05/24/18 05:25 05/24/18 05:25 Most recent lab results Calcium 8.4 mg/dL (8.4-10.2) 05/24/18 05:25 Medications & Allergies - Medications Allergies/Adverse Reactions: Allergies heparin Allergy (Verified 04/21/18 14:26) lowers platelets Home Medications: Home Medications Medication Instructions Recorded Confirmed Last Taken Type AtorvaSTATin [Lipitor] 40 mg PO QHS #30 tab 03/27/18 05/22/18 Unknown Rx Esomeprazole Magnesium [Nexium] 40 mg PO DAILY #30 capsule.dr 03/27/18 05/22/18 Unknown Rx Folic Acid/Vit B Comp W-C [Renal 1 cap PO QDAY #60 capsule 03/27/18 05/22/18 Unknown Rx Caps] cloNIDine [Catapres] 0.3 mg PO TID 30 Days tablet 03/27/18 05/22/18 Unknown Rx hydrALAZINE [Apresoline TAB] 100 mg PO TID #90 tab 03/27/18 05/22/18 Unknown Rx traZODone [Desyrel] 100 mg PO QHS #30 tablet 03/27/18 05/22/18 Unknown Rx NIFEdipine [Adalat cc] 90 mg PO BID 04/11/18 05/22/18 Unknown History Diclofenac Sodium [Voltaren] 100 gm TP Q6H #1 gel..gram. 04/21/18 05/22/18 Unknown Rx ALBUTEROL NEB's [Proventil 0.083% 2.5 mg IH Q4HRT PRN nebu 05/19/18 05/22/18 Unknown Rx NEBS] ALPRAZolam [Xanax TAB] 0.5 mg PO Q12HR #20 tablet 05/19/18 05/22/18 Unknown Rx Aspirin EC [Aspirin Enteric Coated 81 mg PO QDAY tablet 05/19/18 05/22/18 Unknown Rx TAB] AtorvaSTATin [Lipitor] 40 mg PO QHS tablet 05/19/18 05/22/18 Unknown Rx Carvedilol [Coreg] 25 mg PO BID tablet 05/19/18 05/22/18 Unknown Rx Active Medications: Generic Name Dose Route Start Last Admin Trade Name Freq PRN Reason Stop Dose Admin Acetaminophen 650 mg 05/22/18 10:37 Tylenol PO Q4H PRN Pain MILD(1-3)/Fever >100.5/JENKINS Albuterol 2.5 mg 05/22/18 10:41 Proventil IH Q4HRT PRN Shortness Of Breath Alprazolam 0.5 mg 05/22/18 22:00 05/24/18 22:58 Xanax PO 0.5 mg Q12HR CHONG Administration Aspirin 81 mg 05/23/18 10:00 05/24/18 09:27 Halfprin Ec PO 81 mg QDAY CHONG Administration Atorvastatin Calcium 40 mg 05/22/18 22:00 05/24/18 22:59 Lipitor PO 40 mg QHS CHONG Administration Carvedilol 25 mg 05/22/18 22:00 05/24/18 22:57 Coreg PO 25 mg BID [facility] Administration Clonidine HCl 0.3 mg 05/22/18 14:00 05/24/18 23:00 Catapres PO Not Given TID [facility] Epoetin Davis 10,000 unit 05/24/18 12:00 05/24/18 19:59 Procrit SUB-Q 05/30/18 11:59 10,000 unit APRIL PRN Administration hemodialysis Hydralazine HCl 100 mg 05/22/18 14:00 05/24/18 22:59 Apresoline PO Not Given TID [facility] Hydromorphone HCl 1 mg 05/22/18 12:33 05/25/18 02:46 Dilaudid IV 1 mg Q4H PRN Administration Pain , Severe (7-10) Sodium Chloride 100 mls @ 999 mls/hr 05/23/18 09:16 Nacl 0.9% IV APRIL PRN Hypotension Insulin Human Lispro 0 unit 05/23/18 11:30 05/25/18 08:03 Humalog SUB-Q Not Given ACHS [facility] Protocol Multivit/Ca Carb/B Cmplx/FA/Prenat 1 cap 05/23/18 10:00 05/24/18 09:27 Renal Caps PO 1 cap QDAY [facility] Administration Nifedipine 90 mg 05/22/18 22:00 05/24/18 22:58 Procardia Xl PO 90 mg BID CHONG Administration Ondansetron HCl 4 mg 05/22/18 10:37 Zofran IV Q8H PRN Nausea And Vomiting Pantoprazole Sodium 40 mg 03/12/19 10:00 05/24/18 09:27 Protonix PO 40 mg DAILY CHONG Administration Sodium Chloride 10 ml 05/22/18 22:00 05/24/18 23:01 Sodium Chloride Flush Syringe 10 Ml IV 10 ml BID CHONG Administration Sodium Chloride 10 ml 05/22/18 10:37 Sodium Chloride Flush Syringe 10 Ml IV PRN PRN LINE FLUSH Trazodone HCl 100 mg 05/22/18 22:00 05/24/18 22:57 Desyrel PO 100 mg QHS CHONG Administration
[2018-05-25] MEDS: XANAX PO SCH ×2 (09:31→22:17)
[2018-05-25] MEDS: PROTONIX PO SCH (09:31)
[2018-05-25] MEDS: PROCARDIA XL PO SCH ×2 (09:31→22:17)
[2018-05-25] MEDS: CATAPRES PO SCH ×3 (09:31→22:18)
[2018-05-25] MEDS: SODIUM CHLORIDE FLUSH SYRINGE 10 ML IV SCH ×2 (09:32→22:23)
[2018-05-25] MEDS: HALFPRIN EC PO SCH (09:32)
[2018-05-25] MEDS: Renal Caps PO SCH (09:32)
[2018-05-25] MEDS: APRESOLINE PO SCH ×3 (09:32→22:18)
[2018-05-25] MEDS: COREG PO SCH ×2 (09:32→22:17)
--- NOTE | 2018-05-25 11:06 | Progress Note ---
Assessment and Plan Volume overload Bilateral pleural effusions s/p right thoracentesis Hyperkalemia ESRD on dialysis Anemia Hypertension Non-ischemic cardiomyopathy [facility] 07/2017: no significant coronary artery disease but a decreased left ventricular ejection fraction 15-20%. Chronic Ascities with intermittent paracentesis. Chronic anemia Chronic hypoxic respiratory failure on home oxygen Conservative cardiac management. Subjective Date of service: 05/25/18 Interval history: Venturi mask is in place. No distress noted. Objective Vital Signs Temp Pulse Resp BP Pulse Ox 05/25/18 04:44 95 05/25/18 04:01 97.5 F L 72 18 121/68 93 05/25/18 02:46 20 05/24/18 22:58 97.3 F L 70 16 107/52 93 05/24/18 21:45 72 20 94 05/24/18 21:22 98.3 F 58 L 18 110/55 05/24/18 21:20 70 05/24/18 21:00 58 L 110/55 05/24/18 20:45 55 L 100/50 05/24/18 20:30 59 L 102/53 05/24/18 20:15 58 L 100/51 05/24/18 20:00 58 L 94/52 05/24/18 19:45 58 L 91/43 05/24/18 19:30 58 L 93/45 05/24/18 19:00 61 103/52 05/24/18 18:45 60 91/48 05/24/18 18:30 59 L 97/48 05/24/18 18:15 59 L 95/44 05/24/18 18:00 61 95/46 05/24/18 17:45 60 96/48 05/24/18 17:30 60 101/52 05/24/18 17:15 59 L 103/51 05/24/18 17:00 98.6 F 61 20 98/50 05/24/18 12:45 98.3 F 68 16 113/64 97 - Physical Examination General: No Apparent Distress HEENT: Positive: PERRL Neck: Positive: trachea midline Cardiac: Positive: Reg Rate and Rhythm Lungs: Positive: Decreased Breath Sounds Neuro: Positive: Grossly Intact Extremities: Absent: edema
--- NOTE | 2018-05-25 12:17 | Progress Note ---
Assessment and Plan 28 y/o male with bilateral pleual effusions, ascities, and Hypertension with ESRD on HD, admitted with REspiratory failure. HD per renal Agree with thora on left now. Bipap therapy PRN and QHS May need pleurx, will attempt to speak with patient about this again Subjective Date of service: 05/25/18 Interval history: Remains on Venti. Agree with repeating thora on left side now. Objective Vital Signs - 12hr 05/25/18 05/25/18 05/25/18 02:46 04:01 04:44 Temperature 97.5 F L Pulse Rate 72 Respiratory 20 18 Rate Blood Pressure 121/68 O2 Sat by Pulse 93 95 Oximetry Constitutional: no acute distress, alert, other (appears older than stated age) Eyes: icteric ENT: oropharynx moist Neck: supple, JVD Effort: mildly labored Ascultation: Bilateral: rales CBC and BMP: 05/24/18 05:25 05/24/18 05:25 Abnormal lab findings: Abnormal Labs 05/22/18 05/22/18 05/22/18 09:42 09:42 09:42 RBC 3.06 L Hgb 8.7 L Hct 27.3 L MCHC RDW 18.6 H Lymph % (Auto) 8.6 L [place] % (Auto) 8.2 H Lymph # 0.7 L Seg Neutrophils % 81.3 H Potassium 5.5 H Carbon Dioxide BUN 69 H Creatinine 7.8 H Glucose 120 H POC Glucose Calcium Troponin T 0.391 H* NT-Pro-B Natriuret Pep > 51274 H LDL Cholesterol Direct 41 L 05/22/18 05/22/18 05/23/18 13:11 15:52 05:24 RBC 2.83 L Hgb 7.9 L Hct 25.3 L MCHC 31 L RDW 18.5 H Lymph % (Auto) [place] % (Auto) Lymph # 1.0 L Seg Neutrophils % 74.9 H Potassium Carbon Dioxide BUN Creatinine Glucose POC Glucose Calcium Troponin T 0.324 H* 0.371 H* NT-Pro-B Natriuret Pep LDL Cholesterol Direct 05/23/18 05/23/18 05/24/18 05:24 08:48 05:25 RBC 2.68 L Hgb 7.7 L Hct 23.6 L MCHC RDW 18.8 H Lymph % (Auto) [place] % (Auto) Lymph # Seg Neutrophils % Potassium 6.1 H* Carbon Dioxide 19 L BUN 75 H Creatinine 8.3 H Glucose 69 L POC Glucose 62 L Calcium 8.1 L Troponin T NT-Pro-B Natriuret Pep LDL Cholesterol Direct 05/24/18 05/24/18 05/25/18 05:25 21:51 11:31 RBC Hgb Hct MCHC RDW Lymph % (Auto) [place] % (Auto) Lymph # Seg Neutrophils % Potassium Carbon Dioxide BUN 42 H Creatinine 5.4 H Glucose POC Glucose 112 H 110 H Calcium Troponin T NT-Pro-B Natriuret Pep LDL Cholesterol Direct
--- NOTE | 2018-05-25 15:49 | Progress Note ---
Assessment and Plan Assessment and plan: Mr Tuesday is a 28 year old male with past medical hx of ESRD on HD (T,R,Sa), HTN, GERD, Dialated Cardiomyopathy, Systolic CHF(EF 40%), Nicotine Dependence, Noncompliance, Chronic Respiratory Failure on 5-6L Home Oxygen via [place] presents to ED for evaluation of shortness of breath and chest pain for about a day. The patient was recently discharged from the hospital following presentation for similar incident which resolved with Thoracentesis. He reports that on discharge he was doing well but began having recurrent shortness of breath despite compliance with medication, dialysis and tobacco cessation. He denied any cough but reported orthopnea and PND with exertional dyspnea reported and progressive ly getting worse at rest. He on arrival to he ED was noted to have saturation in the 70s requiring BIPAP for improved oxygen saturation. Imaging studies was concerning for bilateral pleural effusion. The patient reports chest pain 10/10 with no radiation and was generalized across the chest. Cardiac records showed EF 15-20% from about 10months ago The thoracentesis done a few days ago removed 1.5Liters of fluids. Acute on chronic hypoxic respiratory failure; secondary to fluid overload End-stage renal disease on hemodialysis Hyperkalemia; due to ESRD, management per nephrology Nonischemic Dilated cardiomyopathy; ejection fraction 15 - 20% Recurrent Bilateral pleural effusion Pancytopenia hypertension; moderate control, Tobacco use disorder: Reports he quit two weeks ago Medical noncompliance; counseled advised to comply with hemodialysis medications and diet Chronic Ascities Plan Continue supportive care ordered thoracentesis for Left side Pulmonary will re-evaluate and discuss with patient possible Pleuex cathter due to recurrent effusion Cardiology input noted Pulmonary AND Nephrology consult Patient on discharge should be enrolled in CHF palliative care program [facility] Oxygen as tolerated Pain medication DVT/GI prophy Spent about 30 minutes with niacin and also patient's mother explaining medical condition and treatment plan with the patient and family they both verbalized understanding. History Interval history: Admitted with shortness of breath Patient seen and examined this am, now down to ventimask after dialysis yesterday. had thoracentesis yesterday with removal of 1.5 liters. still complaints of shortness of breath Hospitalist Physical - Physical exam Narrative exam: GENERAL: The patient is well-developed well-nourished male in Mild distress and on Venturi mask. HEENT: Normocephalic. Atraumatic. Extraocular motions are intact. Patient has moist mucous membranes. NECK: Supple. Trachea midline CHEST/LUNGS: coarse breath sounds. continues on BIPAP. Diminished breath sounds at the lung base. HEART/CARDIOVASCULAR: Regular. There is no gallop rub or murmur. ABDOMEN: Abdomen is soft, nontender. enlarged pannus, Patient has normal bowel sounds. There is no abdominal distention. SKIN: There is no rash. There is no diaphoresis. NEURO: The patient is awake, alert, and oriented. The patient is cooperative. The patient has normal speech MUSCULOSKELETAL: There is no evidence of acute injury. - Constitutional Vitals: Temp Pulse Resp BP Pulse Ox 97.5 F L 72 18 121/68 95 05/25/18 04:01 05/25/18 04:01 05/25/18 04:01 05/25/18 04:01 05/25/18 04:44 General appearance: Present: other (on Bipap) Results - Labs CBC & Chem 7: 05/24/18 05:25 05/24/18 05:25 Labs: Laboratory Last Values WBC 7.5 K/mm3 (4.5-11.0) 05/24/18 05:25 RBC 2.68 M/mm3 (3.65-5.03) L 05/24/18 05:25 Hgb 7.7 gm/dl (11.8-15.2) L 05/24/18 05:25 Hct 23.6 % (35.5-45.6) L 05/24/18 05:25 MCV 88 fl (84-94) 05/24/18 05:25 MCH 29 pg (28-32) 05/24/18 05:25 MCHC 33 % (32-34) 05/24/18 05:25 RDW 18.8 % (13.2-15.2) H 05/24/18 05:25 Plt Count 166 K/mm3 (140-440) 05/24/18 05:25 Lymph % (Auto) 14.3 % (13.4-35.0) 05/23/18 05:24 Power % (Auto) 7.3 % (0.0-7.3) 05/23/18 05:24 Eos % (Auto) 2.4 % (0.0-4.3) 05/23/18 05:24 Baso % (Auto) 1.1 % (0.0-1.8) 05/23/18 05:24 Lymph # 1.0 K/mm3 (1.2-5.4) L 05/23/18 05:24 Power # 0.5 K/mm3 (0.0-0.8) 05/23/18 05:24 Eos # 0.2 K/mm3 (0.0-0.4) 05/23/18 05:24 Baso # 0.1 K/mm3 (0.0-0.1) 05/23/18 05:24 Seg Neutrophils % 74.9 % (40.0-70.0) H 05/23/18 05:24 Seg Neutrophils # 5.0 K/mm3 (1.8-7.7) 05/23/18 05:24 Sodium 140 mmol/L (137-145) 05/24/18 05:25 Potassium 4.5 mmol/L (3.6-5.0) D 05/24/18 05:25 Chloride 99.8 mmol/L (98-107) 05/24/18 05:25 Carbon Dioxide 28 mmol/L (22-30) D 05/24/18 05:25 Anion Gap 17 mmol/L 05/24/18 05:25 BUN 42 mg/dL (9-20) H 05/24/18 05:25 Creatinine 5.4 mg/dL (0.8-1.5) H 05/24/18 05:25 Estimated GFR 13 ml/min 05/24/18 05:25 BUN/Creatinine Ratio 8 % 05/24/18 05:25 Glucose 81 mg/dL (75-100) 05/24/18 05:25 POC Glucose 110 (70-105) H 05/25/18 11:31 Calcium 8.4 mg/dL (8.4-10.2) 05/24/18 05:25 Troponin T 0.371 ng/mL (0.00-0.029) H* 05/22/18 15:52 NT-Pro-B Natriuret Pep > 70235 pg/mL (0-450) H 05/22/18 09:42 Triglycerides 66 mg/dL (2-149) 05/22/18 09:42 Cholesterol 94 mg/dL (50-199) 05/22/18 09:42 LDL Cholesterol Direct 41 mg/dL (50-130) L 05/22/18 09:42 HDL Cholesterol 43 mg/dL (40-59) 05/22/18 09:42 Cholesterol/HDL Ratio 2.18 % 05/22/18 09:42
[2018-05-25] MEDS: DESYREL PO SCH (22:17)
[2018-05-26] MEDS: DILAUDID IV PRN ×5 (01:06→21:49)
[2018-05-26 05:43] LABS: Hematocrit 21.4 % (35.5-45.6); Hemoglobin 7.1 gm/dl (11.8-15.2); Mean Corpuscular HGB Conc 33 % (32-34); Mean Corpuscular Volume 87 fl (84-94); Platelet Count 174 K/mm3 (140-440); Red Blood Count 2.46 M/mm3 (3.65-5.03); Red Cell Distribution Width 18.8 % (13.2-15.2)
[2018-05-26 06:05] LABS: Calcium 8.7 mg/dL (8.4-10.2)
[2018-05-26] MEDS ORDERED: DILAUDID IV NR (08:49)
[2018-05-26] MEDS ORDERED: XYLOCAINE 1% 20 mL ONE (09:09)
[2018-05-26] MEDS: HumaLOG SUB-Q SCH ×5 (09:14→22:50)
[2018-05-26] MEDS: CATAPRES PO SCH ×3 (09:15→20:28)
[2018-05-26] MEDS: APRESOLINE PO SCH ×3 (09:15→20:28)
--- NOTE | 2018-05-26 09:54 | Progress Note ---
Assessment and Plan Volume overload Bilateral pleural effusions s/p right thoracentesis Hyperkalemia ESRD on dialysis Anemia Hypertension Non-ischemic cardiomyopathy [facility] 07/2017: no significant coronary artery disease but a decreased left ventricular ejection fraction 15-20%. Chronic Ascities with intermittent paracentesis. Chronic anemia Chronic hypoxic respiratory failure on home oxygen Recommend: Medical therapy for nonischemic cardiomyopathy and chronic systolic heart failure. Conservative cardiac management. Subjective Date of service: 05/26/18 Interval history: Venturi mask is in place. No distress noted. For planned thoracentesis today. Objective Vital Signs Temp Pulse Resp BP BP Pulse Ox 05/26/18 09:15 90 94/57 05/26/18 06:45 97.4 F L 90 20 94/57 90 05/26/18 06:44 20 05/26/18 01:10 97.8 F 67 20 100/61 94 05/26/18 01:06 18 05/25/18 21:32 94 05/25/18 21:05 97.9 F 68 18 106/50 93 05/25/18 20:27 72 05/25/18 19:56 20 05/25/18 10:00 96 - Physical Examination General: No Apparent Distress HEENT: Positive: PERRL Neck: Positive: trachea midline Cardiac: Positive: Reg Rate and Rhythm Lungs: Positive: Decreased Breath Sounds Neuro: Positive: Grossly Intact Extremities: Absent: edema - Labs and Meds CBC 05/26/18 Range/Units 05:17 WBC 7.8 (4.5-11.0) K/mm3 RBC 2.46 L (3.65-5.03) M/mm3 Hgb 7.1 L (11.8-15.2) gm/dl Hct 21.4 L (35.5-45.6) % Plt Count 174 (140-440) K/mm3 Comprehensive Metabolic Panel 05/26/18 Range/Units 05:17 Sodium 137 (137-145) mmol/L Potassium 4.5 (3.6-5.0) mmol/L Chloride 97.4 L (98-107) mmol/L Carbon Dioxide 26 (22-30) mmol/L BUN 33 H (9-20) mg/dL Creatinine 5.4 H (0.8-1.5) mg/dL Glucose 90 (75-100) mg/dL Calcium 8.7 (8.4-10.2) mg/dL
--- NOTE | 2018-05-26 10:14 | Procedure Note ---
Date of procedure: 05/26/18 Pre-op diagnosis: Pleural effusion Post-op diagnosis: same Procedure: US guided left thoracentesis Findings: 1300 dark serous fluid removed. Anesthesia: local Surgeon: TORIN FRANCISCO Estimated blood loss: none Pathology: none Specimen disposition: discarded Condition: stable Disposition: no change
--- NOTE | 2018-05-26 10:18 | Ultrasound Report ---
ULTRASOUND THORACENTESIS INDICATION: Left pleural effusion. COMPARISON: 04/14/2018. FINDINGS: Ultrasound guided left thoracentesis performed. Written informed consent obtained after explaining the risks and benefits. Patient brought in the ultrasound room. An appropriate skin site marked. Using standard sterile precautions and 1% lidocaine for local anesthesia, 5 [place] Yueh catheter advanced into the pleural fluid. Total of approximately 1300 cc of dark serous fluid obtained with no sample sent to the lab. Catheter removed and hemostasis achieved. No immediate complications. CONCLUSION: Status post left thoracentesis, as described. A 2 hour post procedure chest x-ray ordered. Dr. Dobson present for and performed the entire procedure. Thank you for the opportunity to participate in this patient's care.
[2018-05-26] MEDS: PROCRIT SUB-Q PRN (11:48)
--- NOTE | 2018-05-26 12:09 | XRay Report ---
PORTABLE CHEST INDICATION: Post left thoracentesis. COMPARISON: 05/24/2018 FINDINGS: Portable, frontal chest radiograph demonstrates slight improvement in left lung haziness, though some again present toward the base with obscured left hemidiaphragm. Similar changes in the right lower lung may also again be seen. Cardiomediastinal silhouette partly obscured, though grossly stable with cardiomegaly and pulmonary vascular congestion again suspected. EKG leads. Intact bones. CONCLUSION: Cardiomegaly with bilateral pleural effusions and pulmonary vascular congestion again suspected without evidence of left pneumothorax, as described. Thank you for the opportunity to participate in this patient's care.
--- NOTE | 2018-05-26 13:15 | Progress Note ---
Assessment and Plan 28 y/o male with bilateral pleual effusions, ascities, and Hypertension with ESRD on HD, admitted with REspiratory failure. HD per renal Bipap therapy PRN and QHS May need pleurx, will attempt to speak with patient about this again once back in the room Subjective Date of service: 05/26/18 Interval history: Patient off floor but had thora done this am with 1300 cc's of fluid removed. Objective Vital Signs - 12hr 05/26/18 05/26/18 05/26/18 06:44 06:45 09:15 Temperature 97.4 F L Pulse Rate 90 90 Respiratory 20 20 Rate Blood Pressure 94/57 Blood Pressure 94/57 [Right] O2 Sat by Pulse 90 Oximetry O2 Sat by Pulse Oximetry [ Bilateral Throughout] 05/26/18 05/26/18 05/26/18 10:10 10:27 10:30 Temperature 97.5 F L Pulse Rate 57 L 56 L 58 L Respiratory 18 Rate Blood Pressure 93/48 99/52 101/58 Blood Pressure [Right] O2 Sat by Pulse Oximetry O2 Sat by Pulse 95 Oximetry [ Bilateral Throughout] 05/26/18 05/26/18 05/26/18 10:45 11:00 11:15 Temperature Pulse Rate 51 L 58 L 59 L Respiratory Rate Blood Pressure 102/61 104/57 95/57 Blood Pressure [Right] O2 Sat by Pulse Oximetry O2 Sat by Pulse Oximetry [ Bilateral Throughout] 05/26/18 11:30 Temperature Pulse Rate 59 L Respiratory Rate Blood Pressure 105/54 Blood Pressure [Right] O2 Sat by Pulse Oximetry O2 Sat by Pulse Oximetry [ Bilateral Throughout] Constitutional: no acute distress, alert, other (appears older than stated age) Eyes: icteric ENT: oropharynx moist Neck: supple, JVD Effort: mildly labored Ascultation: Bilateral: rales CBC and BMP: 05/26/18 05:17 05/26/18 05:17 Abnormal lab findings: Abnormal Labs 05/22/18 05/22/18 05/22/18 09:42 09:42 09:42 RBC 3.06 L Hgb 8.7 L Hct 27.3 L MCHC RDW 18.6 H Lymph % (Auto) 8.6 L [place] % (Auto) 8.2 H Lymph # 0.7 L Seg Neutrophils % 81.3 H Potassium 5.5 H Chloride Carbon Dioxide BUN 69 H Creatinine 7.8 H Glucose 120 H POC Glucose Calcium Troponin T 0.391 H* NT-Pro-B Natriuret Pep > 96877 H LDL Cholesterol Direct 41 L 05/22/18 05/22/18 05/23/18 13:11 15:52 05:24 RBC 2.83 L Hgb 7.9 L Hct 25.3 L MCHC 31 L RDW 18.5 H Lymph % (Auto) [place] % (Auto) Lymph # 1.0 L Seg Neutrophils % 74.9 H Potassium Chloride Carbon Dioxide BUN Creatinine Glucose POC Glucose Calcium Troponin T 0.324 H* 0.371 H* NT-Pro-B Natriuret Pep LDL Cholesterol Direct 05/23/18 05/23/18 05/24/18 05:24 08:48 05:25 RBC 2.68 L Hgb 7.7 L Hct 23.6 L MCHC RDW 18.8 H Lymph % (Auto) [place] % (Auto) Lymph # Seg Neutrophils % Potassium 6.1 H* Chloride Carbon Dioxide 19 L BUN 75 H Creatinine 8.3 H Glucose 69 L POC Glucose 62 L Calcium 8.1 L Troponin T NT-Pro-B Natriuret Pep LDL Cholesterol Direct 05/24/18 05/24/18 05/25/18 05:25 21:51 11:31 RBC Hgb Hct MCHC RDW Lymph % (Auto) [place] % (Auto) Lymph # Seg Neutrophils % Potassium Chloride Carbon Dioxide BUN 42 H Creatinine 5.4 H Glucose POC Glucose 112 H 110 H Calcium Troponin T NT-Pro-B Natriuret Pep LDL Cholesterol Direct 05/25/18 05/26/18 05/26/18 22:11 05:17 05:17 RBC 2.46 L Hgb 7.1 L Hct 21.4 L MCHC RDW 18.8 H Lymph % (Auto) [place] % (Auto) Lymph # Seg Neutrophils % Potassium Chloride 97.4 L Carbon Dioxide BUN 33 H Creatinine 5.4 H Glucose POC Glucose 150 H Calcium Troponin T NT-Pro-B Natriuret Pep LDL Cholesterol Direct
[2018-05-26] MEDS: HALFPRIN EC PO SCH ×2 (15:44→15:54)
[2018-05-26] MEDS: COREG PO SCH ×2 (15:45→21:49)
[2018-05-26] MEDS: Renal Caps PO SCH (15:54)
[2018-05-26] MEDS: XANAX PO SCH (15:54)
[2018-05-26] MEDS: PROTONIX PO SCH (15:54)
--- NOTE | 2018-05-26 15:58 | Progress Note ---
Assessment and Plan Acute on chronic hypoxic respiratory failure; secondary to fluid overload End-stage renal disease on hemodialysis Hyperkalemia; due to ESRD, management per nephrology Nonischemic Dilated cardiomyopathy; ejection fraction 15 - 20% Recurrent Bilateral pleural effusion due to noncompliance, CHF and ESRD Pancytopenia hypertension; moderate control, Tobacco use disorder: Reports he quit two weeks ago Medical noncompliance; counseled advised to comply with hemodialysis medications and diet Chronic Ascities Plan Continue supportive care ordered thoracentesis for Left side, done today removed 1.3L Pulmonary will re-evaluate and discuss with patient possible Pleuex cathter due to recurrent effusion Cardiology input noted HD per Nephrology Patient on discharge should be enrolled in CHF palliative care program Supplemental Oxygen as tolerated Pain medication as needed DVT/GI prophy Disposition: when clears by pulmonary and renal Brief History: Mr Tuesday is a 28 year old male with past medical hx of ESRD on HD (T,R,Sa), HTN, GERD, Dialated Cardiomyopathy, Systolic CHF(EF 40%), Nicotine Dependence, Noncompliance, Chronic Respiratory Failure on 5-6L Home Oxygen via [place] presents to ED for evaluation of shortness of breath and chest pain for about a day. The patient was recently discharged from the hospital following presentation for similar incident which resolved with Thoracentesis. He reports that on discharge he was doing well but began having recurrent shortness of breath despite compliance with medication, dialysis and tobacco cessation. He on arrival to he ED was noted to have saturation in the 70s requiring BIPAP for improved oxygen saturation. Imaging studies was concerning for bilateral pleural effusion. Cardiac records showed EF 15-20% from about 10 months ago. Renal consulted for HD, cardiology recommended medical Mx. The right thoracentesis done on 05/24/18 removed 1.5Liters of fluids. Pulmonary will re-evaluate and discuss with patient possible Pleuex cathter due to recurrent effusion as outpt. Hospitalist Physical GENERAL: The patient is well-developed well-nourished male in Mild distress and on Venturi mask. HEENT: Normocephalic. Atraumatic. Extraocular motions are intact. Patient has moist mucous membranes. NECK: Supple. Trachea midline CHEST/LUNGS: coarse breath sounds. continues on BIPAP. Diminished breath sounds at the lung base. HEART/CARDIOVASCULAR: Regular. There is no gallop rub or murmur. ABDOMEN: Abdomen is soft, nontender. enlarged pannus, Patient has normal bowel sounds. There is no abdominal distention. SKIN: There is no rash. There is no diaphoresis. NEURO: The patient is awake, alert, and oriented. The patient is cooperative. The patient has normal speech MUSCULOSKELETAL: There is no evidence of acute injury. Subjective Date of service: 05/26/18 Interval history: Patient seen and examined this am, had left sided thoracentesis today with removal of 1.3 liters. Planned for HD Objective - Constitutional Vitals: Vital Signs - 12hr 05/26/18 05/26/18 05/26/18 06:44 06:45 09:15 Temperature 97.4 F L Pulse Rate 90 90 Respiratory 20 20 Rate Blood Pressure 94/57 Blood Pressure 94/57 [Right] O2 Sat by Pulse 90 Oximetry O2 Sat by Pulse Oximetry [ Bilateral Throughout] 05/26/18 05/26/18 05/26/18 10:10 10:27 10:30 Temperature 97.5 F L Pulse Rate 57 L 56 L 58 L Respiratory 18 Rate Blood Pressure 93/48 99/52 101/58 Blood Pressure [Right] O2 Sat by Pulse Oximetry O2 Sat by Pulse 95 Oximetry [ Bilateral Throughout] 05/26/18 05/26/18 05/26/18 10:45 11:00 11:15 Temperature Pulse Rate 51 L 58 L 59 L Respiratory Rate Blood Pressure 102/61 104/57 95/57 Blood Pressure [Right] O2 Sat by Pulse Oximetry O2 Sat by Pulse Oximetry [ Bilateral Throughout] 05/26/18 05/26/18 05/26/18 11:30 15:44 15:45 Temperature Pulse Rate 59 L 67 67 Respiratory Rate Blood Pressure 105/54 105/65 105/65 Blood Pressure [Right] O2 Sat by Pulse Oximetry O2 Sat by Pulse Oximetry [ Bilateral Throughout] - Labs CBC & Chem 7: 05/27/18 05:13 05/27/18 05:13 Labs: Abnormal lab results 05/25/18 05/26/18 05/26/18 Range/Units 22:11 05:17 05:17 RBC 2.46 L (3.65-5.03) M/mm3 Hgb 7.1 L (11.8-15.2) gm/dl Hct 21.4 L (35.5-45.6) % RDW 18.8 H (13.2-15.2) % Chloride 97.4 L (98-107) mmol/L BUN 33 H (9-20) mg/dL Creatinine 5.4 H (0.8-1.5) mg/dL POC Glucose 150 H (70-105)
[2018-05-26] MEDS: PROCARDIA XL PO SCH ×2 (15:59→22:50)
--- NOTE | 2018-05-26 17:48 | Progress Note ---
Assessment and Plan Impression: * ESRD * Pleural effusion * HTN * ANemia in ESRD * noncompliance * cardiomyopathy Plan: * hd Q MWF * uf as tolerated with hd * daily lytes * strict i/os * stress compliance with dialysis therapy * patient drinks excessive amount of fluid despite being counseled and educated * ok to dc from renal standpoint Subjective Date of service: 05/26/18 Principal diagnosis: esrd Interval history: resting in well today Objective - Exam Narrative Exam: HEENT: Oral mucosa moist no pallor or icterus Neck: Supple no JVD Chest: Diminished breath sounds crackles Lung sounds are better post thoracentesis CVS: Regular rate and rhythm S1 and S2 heard Abdomen: Soft nontender no suprapubic masses no organomegaly appreciable Extremity: Dry skin less than 1+ peripheral edema Musculoskeletal: No joint effusion noted in knees and ankle Neurological: Alert awake Dermatology: No petechial rashes Psychiatry: No evidence of any agitation and aggression noted - Vital Signs Vital signs: Vital Signs - 12hr 05/26/18 05/26/18 05/26/18 06:44 06:45 09:15 Temperature 97.4 F L Pulse Rate 90 90 Pulse Rate [ Apical] Pulse Rate [ Left Radial] Pulse Rate [ Right Radial] Respiratory 20 20 Rate Blood Pressure 94/57 Blood Pressure 94/57 [Right] O2 Sat by Pulse 90 Oximetry O2 Sat by Pulse Oximetry [ Bilateral Throughout] 05/26/18 05/26/18 05/26/18 10:00 10:10 10:27 Temperature 97.5 F L Pulse Rate 57 L 56 L Pulse Rate [ 63 Apical] Pulse Rate [ 63 Left Radial] Pulse Rate [ 63 Right Radial] Respiratory 20 18 Rate Blood Pressure 93/48 99/52 Blood Pressure [Right] O2 Sat by Pulse 98 Oximetry O2 Sat by Pulse 95 Oximetry [ Bilateral Throughout] 05/26/18 05/26/18 05/26/18 10:30 10:45 11:00 Temperature Pulse Rate 58 L 51 L 58 L Pulse Rate [ Apical] Pulse Rate [ Left Radial] Pulse Rate [ Right Radial] Respiratory Rate Blood Pressure 101/58 102/61 104/57 Blood Pressure [Right] O2 Sat by Pulse Oximetry O2 Sat by Pulse Oximetry [ Bilateral Throughout] 05/26/18 05/26/18 05/26/18 11:15 11:30 11:45 Temperature Pulse Rate 59 L 59 L 60 Pulse Rate [ Apical] Pulse Rate [ Left Radial] Pulse Rate [ Right Radial] Respiratory Rate Blood Pressure 95/57 105/54 105/57 Blood Pressure [Right] O2 Sat by Pulse Oximetry O2 Sat by Pulse Oximetry [ Bilateral Throughout] 05/26/18 05/26/18 05/26/18 12:00 12:15 12:30 Temperature Pulse Rate 61 59 L 61 Pulse Rate [ Apical] Pulse Rate [ Left Radial] Pulse Rate [ Right Radial] Respiratory Rate Blood Pressure 96/52 104/57 109/59 Blood Pressure [Right] O2 Sat by Pulse Oximetry O2 Sat by Pulse Oximetry [ Bilateral Throughout] 05/26/18 05/26/18 05/26/18 12:45 13:00 13:15 Temperature Pulse Rate 58 L 58 L 58 L Pulse Rate [ Apical] Pulse Rate [ Left Radial] Pulse Rate [ Right Radial] Respiratory Rate Blood Pressure 106/59 105/63 111/63 Blood Pressure [Right] O2 Sat by Pulse Oximetry O2 Sat by Pulse Oximetry [ Bilateral Throughout] 05/26/18 05/26/18 05/26/18 13:30 13:45 14:00 Temperature Pulse Rate 60 64 64 Pulse Rate [ Apical] Pulse Rate [ Left Radial] Pulse Rate [ Right Radial] Respiratory Rate Blood Pressure 110/63 99/53 94/53 Blood Pressure [Right] O2 Sat by Pulse Oximetry O2 Sat by Pulse Oximetry [ Bilateral Throughout] 05/26/18 05/26/18 05/26/18 14:15 14:25 15:44 Temperature Pulse Rate 62 62 67 Pulse Rate [ Apical] Pulse Rate [ Left Radial] Pulse Rate [ Right Radial] Respiratory Rate Blood Pressure 90/43 93/43 105/65 Blood Pressure [Right] O2 Sat by Pulse Oximetry O2 Sat by Pulse Oximetry [ Bilateral Throughout] 05/26/18 05/26/18 05/26/18 15:45 17:39 17:40 Temperature 97.6 F Pulse Rate 67 66 Pulse Rate [ Apical] Pulse Rate [ Left Radial] Pulse Rate [ Right Radial] Respiratory 20 Rate Blood Pressure 105/65 120/59 Blood Pressure [Right] O2 Sat by Pulse 93 Oximetry O2 Sat by Pulse Oximetry [ Bilateral Throughout] - Lab 05/26/18 05:17 05/26/18 05:17 Most recent lab results Calcium 8.7 mg/dL (8.4-10.2) 05/26/18 05:17 Medications & Allergies - Medications Allergies/Adverse Reactions: Allergies heparin Allergy (Verified 04/21/18 14:26) lowers platelets Home Medications: Home Medications Medication Instructions Recorded Confirmed Last Taken Type AtorvaSTATin [Lipitor] 40 mg PO QHS #30 tab 03/27/18 05/22/18 Unknown Rx Esomeprazole Magnesium [Nexium] 40 mg PO DAILY #30 capsule. 03/27/18 05/22/18 Unknown Rx Folic Acid/Vit B Comp W-C [Renal 1 cap PO QDAY #60 capsule 03/27/18 05/22/18 Unknown Rx Caps] cloNIDine [Catapres] 0.3 mg PO TID 30 Days tablet 03/27/18 05/22/18 Unknown Rx hydrALAZINE [Apresoline TAB] 100 mg PO TID #90 tab 03/27/18 05/22/18 Unknown Rx traZODone [Desyrel] 100 mg PO QHS #30 tablet 03/27/18 05/22/18 Unknown Rx NIFEdipine [Adalat cc] 90 mg PO BID 04/11/18 05/22/18 Unknown History Diclofenac Sodium [Voltaren] 100 gm TP Q6H #1 gel..gram. 04/21/18 05/22/18 Unknown Rx ALBUTEROL NEB's [Proventil 0.083% 2.5 mg IH Q4HRT PRN nebu 05/19/18 05/22/18 Unknown Rx NEBS] ALPRAZolam [Xanax TAB] 0.5 mg PO Q12HR #20 tablet 05/19/18 05/22/18 Unknown Rx Aspirin EC [Aspirin Enteric Coated 81 mg PO QDAY tablet 05/19/18 05/22/18 Unknown Rx TAB] AtorvaSTATin [Lipitor] 40 mg PO QHS tablet 05/19/18 05/22/18 Unknown Rx Carvedilol [Coreg] 25 mg PO BID tablet 05/19/18 05/22/18 Unknown Rx Active Medications: Generic Name Dose Route Start Last Admin Trade Name Freq PRN Reason Stop Dose Admin Acetaminophen 650 mg 05/22/18 10:37 Tylenol PO Q4H PRN Pain MILD(1-3)/Fever >100.5/JENKINS Albuterol 2.5 mg 05/22/18 10:41 Proventil IH Q4HRT PRN Shortness Of Breath Alprazolam 0.5 mg 05/22/18 22:00 05/26/18 15:54 Xanax PO 0.5 mg Q12HR CHONG Administration Aspirin 81 mg 05/23/18 10:00 05/26/18 15:54 Halfprin Ec PO 81 mg QDAY CHONG Administration Atorvastatin Calcium 40 mg 05/22/18 22:00 05/25/18 22:17 Lipitor PO 40 mg QHS CHONG Administration Carvedilol 25 mg 05/22/18 22:00 05/26/18 15:45 Coreg PO Not Given BID [facility] Clonidine HCl 0.3 mg 05/22/18 14:00 05/26/18 15:44 Catapres PO Not Given TID [facility] Epoetin Davis 10,000 unit 05/24/18 12:00 05/26/18 11:48 Procrit SUB-Q 05/30/18 11:59 10,000 unit APRIL PRN Administration hemodialysis Hydralazine HCl 100 mg 05/22/18 14:00 05/26/18 15:44 Apresoline PO Not Given TID [facility] Hydromorphone HCl 1 mg 05/22/18 12:33 05/26/18 15:55 Dilaudid IV 1 mg Q4H PRN Administration Pain , Severe (7-10) Sodium Chloride 100 mls @ 999 mls/hr 05/23/18 09:16 Nacl 0.9% IV APRIL PRN Hypotension Insulin Human Lispro 0 unit 05/23/18 11:30 05/26/18 15:42 Humalog SUB-Q Not Given ACHS [facility] Protocol Multivit/Ca Carb/B Cmplx/FA/Prenat 1 cap 05/23/18 10:00 05/26/18 15:54 Renal Caps PO 1 cap QDAY [facility] Administration Nifedipine 90 mg 05/22/18 22:00 05/26/18 15:59 Procardia Xl PO Not Given BID [facility] Ondansetron HCl 4 mg 05/22/18 10:37 Zofran IV Q8H PRN Nausea And Vomiting Pantoprazole Sodium 40 mg 05/23/18 10:00 05/26/18 15:54 Protonix PO 40 mg DAILY CHONG Administration Sodium Chloride 10 ml 05/22/18 22:00 05/25/18 22:23 Sodium Chloride Flush Syringe 10 Ml IV 10 ml BID CHONG Administration Sodium Chloride 10 ml 05/22/18 10:37 Sodium Chloride Flush Syringe 10 Ml IV PRN PRN LINE FLUSH Trazodone HCl 100 mg 05/22/18 22:00 05/25/18 22:17 Desyrel PO 100 mg QHS CHONG Administration
[2018-05-26] MEDS: SODIUM CHLORIDE FLUSH SYRINGE 10 ML IV SCH ×2 (20:23→23:32)
[2018-05-26] MEDS ORDERED: MIRALAX 3350 PO PRN (20:38)
[2018-05-27] MEDS: DILAUDID IV PRN ×5 (03:34→22:05)
[2018-05-27] MEDS: DESYREL PO SCH ×2 (03:59→22:05)
[2018-05-27] MEDS: XANAX PO SCH ×2 (03:59→17:50)
[2018-05-27 06:40] LABS: Hematocrit 23.9 % (35.5-45.6); Hemoglobin 7.8 gm/dl (11.8-15.2)
[2018-05-27 07:35] LABS: Calcium 8.4 mg/dL (8.4-10.2)
--- NOTE | 2018-05-27 09:25 | Progress Note ---
Assessment and Plan Impression: * ESRD * Pleural effusion * HTN * ANemia in ESRD * noncompliance * cardiomyopathy Plan: * hd Q MWF and prn * plan for extra treatment today for volume control * uf as tolerated with hd * daily lytes * strict i/os * stress compliance with dialysis therapy * patient drinks excessive amount of fluid despite being counseled and educated * ok to dc from renal standpoint Subjective Date of service: 05/27/18 Principal diagnosis: esrd Interval history: resting in well today Objective - Exam Narrative Exam: HEENT: Oral mucosa moist no pallor or icterus Neck: Supple no JVD Chest: Diminished breath sounds crackles Lung sounds are better post thoracentesis CVS: Regular rate and rhythm S1 and S2 heard Abdomen: Soft nontender no suprapubic masses no organomegaly appreciable Extremity: Dry skin less than 1+ peripheral edema Musculoskeletal: No joint effusion noted in knees and ankle Neurological: Alert awake Dermatology: No petechial rashes Psychiatry: No evidence of any agitation and aggression noted - Vital Signs Vital signs: Vital Signs - 12hr 05/26/18 05/26/18 05/27/18 23:14 23:16 00:04 Temperature 98.4 F Pulse Rate 61 72 Respiratory 18 18 Rate Blood Pressure 118/70 O2 Sat by Pulse 97 Oximetry 05/27/18 04:12 Temperature 98.2 F Pulse Rate 71 Respiratory 18 Rate Blood Pressure 119/72 O2 Sat by Pulse 100 Oximetry - Lab 05/27/18 05:13 05/27/18 05:13 Most recent lab results Calcium 8.4 mg/dL (8.4-10.2) 05/27/18 05:13 Medications & Allergies - Medications Allergies/Adverse Reactions: Allergies heparin Allergy (Verified 04/21/18 14:26) lowers platelets Home Medications: Home Medications Medication Instructions Recorded Confirmed Last Taken Type AtorvaSTATin [Lipitor] 40 mg PO QHS #30 tab 03/27/18 05/22/18 Unknown Rx Esomeprazole Magnesium [Nexium] 40 mg PO DAILY #30 capsule. 03/27/18 05/22/18 Unknown Rx Folic Acid/Vit B Comp W-C [Renal 1 cap PO QDAY #60 capsule 03/27/18 05/22/18 Unknown Rx Caps] cloNIDine [Catapres] 0.3 mg PO TID 30 Days tablet 03/27/18 05/22/18 Unknown Rx hydrALAZINE [Apresoline TAB] 100 mg PO TID #90 tab 03/27/18 05/22/18 Unknown Rx traZODone [Desyrel] 100 mg PO QHS #30 tablet 03/27/18 05/22/18 Unknown Rx NIFEdipine [Adalat cc] 90 mg PO BID 04/11/18 05/22/18 Unknown History Diclofenac Sodium [Voltaren] 100 gm TP Q6H #1 gel..gram. 04/21/18 05/22/18 Unknown Rx ALBUTEROL NEB's [Proventil 0.083% 2.5 mg IH Q4HRT PRN nebu 05/19/18 05/22/18 Unknown Rx NEBS] ALPRAZolam [Xanax TAB] 0.5 mg PO Q12HR #20 tablet 05/19/18 05/22/18 Unknown Rx Aspirin EC [Aspirin Enteric Coated 81 mg PO QDAY tablet 05/19/18 05/22/18 Unknown Rx TAB] AtorvaSTATin [Lipitor] 40 mg PO QHS tablet 05/19/18 05/22/18 Unknown Rx Carvedilol [Coreg] 25 mg PO BID tablet 05/19/18 05/22/18 Unknown Rx Active Medications: Generic Name Dose Route Start Last Admin Trade Name Freq PRN Reason Stop Dose Admin Acetaminophen 650 mg 05/22/18 10:37 Tylenol PO Q4H PRN Pain MILD(1-3)/Fever >100.5/JENKINS Albuterol 2.5 mg 05/22/18 10:41 Proventil IH Q4HRT PRN Shortness Of Breath Alprazolam 0.5 mg 05/22/18 22:00 05/27/18 03:59 Xanax PO Not Given Q12HR CHONG Aspirin 81 mg 05/23/18 10:00 05/26/18 15:54 Halfprin Ec PO 81 mg QDAY CHONG Administration Atorvastatin Calcium 40 mg 05/22/18 22:00 05/26/18 21:49 Lipitor PO 40 mg QHS CHOGN Administration Carvedilol 25 mg 05/22/18 22:00 05/26/18 21:49 Coreg PO 25 mg BID CHONG Administration Clonidine HCl 0.3 mg 05/22/18 14:00 05/26/18 20:28 Catapres PO Not Given TID [facility] Epoetin Davis 10,000 unit 05/24/18 12:00 05/26/18 11:48 Procrit SUB-Q 05/30/18 11:59 10,000 unit APRIL PRN Administration hemodialysis Hydralazine HCl 100 mg 05/22/18 14:00 05/26/18 20:28 Apresoline PO Not Given TID [facility] Hydromorphone HCl 1 mg 05/22/18 12:33 05/27/18 03:34 Dilaudid IV 1 mg Q4H PRN Administration Pain , Severe (7-10) Sodium Chloride 100 mls @ 999 mls/hr 05/23/18 09:16 Nacl 0.9% IV APRIL PRN Hypotension Insulin Human Lispro 0 unit 05/23/18 11:30 05/26/18 22:50 Humalog SUB-Q Not Given ACHS [facility] Protocol Multivit/Ca Carb/B Cmplx/FA/Prenat 1 cap 05/23/18 10:00 05/26/18 15:54 Renal Caps PO 1 cap QDAY CHONG Administration Nifedipine 90 mg 05/22/18 22:00 05/26/18 22:50 Procardia Xl PO Not Given BID [facility] Ondansetron HCl 4 mg 05/22/18 10:37 Zofran IV Q8H PRN Nausea And Vomiting Pantoprazole Sodium 40 mg 05/23/18 10:00 05/26/18 15:54 Protonix PO 40 mg DAILY CHONG Administration Polyethylene Glycol 17 gm 05/26/18 20:38 05/26/18 21:49 Miralax 3350 PO 17 gm QDAY PRN Administration Constipation Sodium Chloride 10 ml 05/22/18 22:00 05/26/18 23:32 Sodium Chloride Flush Syringe 10 Ml IV Not Given BID CHONG Sodium Chloride 10 ml 05/22/18 10:37 Sodium Chloride Flush Syringe 10 Ml IV PRN PRN LINE FLUSH Trazodone HCl 100 mg 05/22/18 22:00 05/27/18 03:59 Desyrel PO Not Given QHS CHONG
[2018-05-27] MEDS ORDERED: PROCRIT IV PRN (09:45)
--- NOTE | 2018-05-27 11:35 | Progress Note ---
Assessment and Plan - Patient Problems (1) Acute on chronic systolic heart failure Current Visit: Yes Status: Acute Plan to address problem: Continue medical therapy for heart failure exacerbation, dilated nonischemic cardiomyopathy, and chronic systolic left ventricular dysfunction. Subjective Date of service: 05/27/18 Principal diagnosis: esrd Interval history: No cardiac complaints, patient is awaiting dialysis today. Objective Vital Signs Temp Pulse Resp BP Pulse Ox Pulse Ox 05/27/18 11:00 67 120/71 05/27/18 10:45 64 118/79 05/27/18 10:35 65 121/72 05/27/18 10:25 98.7 F 68 20 135/82 95 05/27/18 09:52 65 120/66 100 05/27/18 04:12 98.2 F 71 18 119/72 100 05/27/18 00:04 98.4 F 72 18 118/70 97 05/26/18 23:16 18 05/26/18 23:14 61 05/26/18 21:05 100 05/26/18 19:55 98.1 F 70 18 108/56 97 05/26/18 17:40 97.6 F 05/26/18 17:39 66 20 120/59 93 05/26/18 15:45 67 105/65 05/26/18 15:44 67 105/65 05/26/18 14:25 62 93/43 05/26/18 14:15 62 90/43 05/26/18 14:00 64 94/53 05/26/18 13:45 64 99/53 05/26/18 13:30 60 110/63 05/26/18 13:15 58 L 111/63 05/26/18 13:00 58 L 105/63 05/26/18 12:45 58 L 106/59 05/26/18 12:30 61 109/59 05/26/18 12:15 59 L 104/57 05/26/18 12:00 62 96/52 05/26/18 11:45 60 105/57 - Physical Examination General: No Apparent Distress HEENT: Positive: PERRL Neck: Positive: trachea midline Cardiac: Positive: Reg Rate and Rhythm Lungs: Positive: Decreased Breath Sounds Neuro: Positive: Grossly Intact Abdomen: Positive: Soft Skin: Positive: Clear Extremities: Absent: edema - Labs and Meds CBC 05/27/18 Range/Units 05:13 Hgb 7.8 L (11.8-15.2) gm/dl Hct 23.9 L (35.5-45.6) % Comprehensive Metabolic Panel 05/27/18 Range/Units 05:13 Sodium 137 (137-145) mmol/L Potassium 4.2 (3.6-5.0) mmol/L Chloride 97.7 L (98-107) mmol/L Carbon Dioxide 30 (22-30) mmol/L BUN 18 (9-20) mg/dL Creatinine 4.0 H (0.8-1.5) mg/dL Glucose 75 (75-100) mg/dL Calcium 8.4 (8.4-10.2) mg/dL
[2018-05-27] MEDS ORDERED: NACL 0.9 (PRIMING MACHINE ONLY DIALYSIS) MC ONE (13:47)
--- NOTE | 2018-05-27 14:32 | Progress Note ---
Assessment and Plan 28 y/o male with bilateral pleual effusions, ascities, and Hypertension with ESRD on HD, admitted with REspiratory failure. HD per renal Bipap therapy PRN and QHS Not sure exactly what patient is speaking about in regards to danger of pleurx. It does not require general anesthesia and should not put stress on his heart. The majority of procedure is done under local. I will ask Cards if this was discussed with him as risk as well as renal. I honestly think the patient should consider having this done given the frequency of recurrence of the effusions Subjective Date of service: 05/27/18 Principal diagnosis: esrd Interval history: Finally caught patient in HD today. Per patient, someone has mentioned pleurx before but he states that it was not [place]. He was also told that it was dangerous for him to have. Objective Vital Signs - 12hr 05/27/18 05/27/18 05/27/18 04:12 09:52 10:25 Temperature 98.2 F 98.7 F Pulse Rate 71 65 68 Respiratory 18 20 Rate Blood Pressure 119/72 120/66 135/82 O2 Sat by Pulse 100 100 Oximetry O2 Sat by Pulse 95 Oximetry [ Posterior Bilateral Throughout] 05/27/18 05/27/18 05/27/18 10:35 10:45 11:00 Temperature Pulse Rate 65 64 67 Respiratory Rate Blood Pressure 121/72 118/79 120/71 O2 Sat by Pulse Oximetry O2 Sat by Pulse Oximetry [ Posterior Bilateral Throughout] 05/27/18 05/27/18 05/27/18 11:15 11:30 11:45 Temperature Pulse Rate 63 63 63 Respiratory Rate Blood Pressure 121/76 124/71 112/94 O2 Sat by Pulse Oximetry O2 Sat by Pulse Oximetry [ Posterior Bilateral Throughout] 05/27/18 05/27/18 05/27/18 12:00 12:15 12:30 Temperature Pulse Rate 64 64 54 L Respiratory Rate Blood Pressure 115/61 111/62 131/65 O2 Sat by Pulse Oximetry O2 Sat by Pulse Oximetry [ Posterior Bilateral Throughout] 05/27/18 05/27/18 05/27/18 12:45 13:00 13:15 Temperature Pulse Rate 61 64 64 Respiratory Rate Blood Pressure 125/75 120/67 128/74 O2 Sat by Pulse Oximetry O2 Sat by Pulse Oximetry [ Posterior Bilateral Throughout] 05/27/18 13:42 Temperature Pulse Rate Respiratory 18 Rate Blood Pressure O2 Sat by Pulse Oximetry O2 Sat by Pulse Oximetry [ Posterior Bilateral Throughout] Constitutional: no acute distress, alert, other (appears older than stated age) Eyes: icteric ENT: oropharynx moist Neck: supple, JVD Effort: mildly labored Ascultation: Bilateral: rales CBC and BMP: 05/27/18 05:13 05/27/18 05:13 Abnormal lab findings: Abnormal Labs 05/22/18 05/22/18 05/22/18 09:42 09:42 09:42 RBC 3.06 L Hgb 8.7 L Hct 27.3 L MCHC RDW 18.6 H Lymph % (Auto) 8.6 L Howard % (Auto) 8.2 H Lymph # 0.7 L Seg Neutrophils % 81.3 H Potassium 5.5 H Chloride Carbon Dioxide BUN 69 H Creatinine 7.8 H Glucose 120 H POC Glucose Calcium Troponin T 0.391 H* NT-Pro-B Natriuret Pep > 87046 H LDL Cholesterol Direct 41 L 05/22/18 05/22/18 05/23/18 13:11 15:52 05:24 RBC 2.83 L Hgb 7.9 L Hct 25.3 L MCHC 31 L RDW 18.5 H Lymph % (Auto) Howard % (Auto) Lymph # 1.0 L Seg Neutrophils % 74.9 H Potassium Chloride Carbon Dioxide BUN Creatinine Glucose POC Glucose Calcium Troponin T 0.324 H* 0.371 H* NT-Pro-B Natriuret Pep LDL Cholesterol Direct 05/23/18 05/23/18 05/24/18 05:24 08:48 05:25 RBC 2.68 L Hgb 7.7 L Hct 23.6 L MCHC RDW 18.8 H Lymph % (Auto) Howard % (Auto) Lymph # Seg Neutrophils % Potassium 6.1 H* Chloride Carbon Dioxide 19 L BUN 75 H Creatinine 8.3 H Glucose 69 L POC Glucose 62 L Calcium 8.1 L Troponin T NT-Pro-B Natriuret Pep LDL Cholesterol Direct 05/24/18 05/24/18 05/25/18 05:25 21:51 11:31 RBC Hgb Hct MCHC RDW Lymph % (Auto) Howard % (Auto) Lymph # Seg Neutrophils % Potassium Chloride Carbon Dioxide BUN 42 H Creatinine 5.4 H Glucose POC Glucose 112 H 110 H Calcium Troponin T NT-Pro-B Natriuret Pep LDL Cholesterol Direct 05/25/18 05/26/18 05/26/18 22:11 05:17 05:17 RBC 2.46 L Hgb 7.1 L Hct 21.4 L MCHC RDW 18.8 H Lymph % (Auto) Howard % (Auto) Lymph # Seg Neutrophils % Potassium Chloride 97.4 L Carbon Dioxide BUN 33 H Creatinine 5.4 H Glucose POC Glucose 150 H Calcium Troponin T NT-Pro-B Natriuret Pep LDL Cholesterol Direct 05/27/18 05/27/18 05:13 05:13 RBC Hgb 7.8 L Hct 23.9 L MCHC RDW Lymph % (Auto) Howard % (Auto) Lymph # Seg Neutrophils % Potassium Chloride 97.7 L Carbon Dioxide BUN Creatinine 4.0 H Glucose POC Glucose Calcium Troponin T NT-Pro-B Natriuret Pep LDL Cholesterol Direct
--- NOTE | 2018-05-27 16:39 | Progress Note ---
Assessment and Plan Acute on chronic hypoxic respiratory failure; secondary to fluid overload End-stage renal disease on hemodialysis Hyperkalemia; due to ESRD, management per nephrology Nonischemic Dilated cardiomyopathy; ejection fraction 15 - 20% Recurrent Bilateral pleural effusion due to noncompliance, CHF and ESRD - s/p thoracentesis on 05/24 and 05/26 Anemia, chronic, likely from ESRD hypertension; moderate control, Tobacco use disorder: Reports he quit two weeks ago Medical noncompliance; counseled advised to comply with hemodialysis medications and diet Chronic Ascities, from volume overload Plan Continue supportive care ordered thoracentesis for Left side, done today removed 1.3L Pulmonary will re-evaluate and discuss with patient possible Pleuex cathter due to recurrent effusion Cardiology input noted HD per Nephrology Patient on discharge should be enrolled in CHF palliative care program Supplemental Oxygen as tolerated Pain medication as needed DVT/GI prophy Disposition: when clears by pulmonary Brief History: Mr Tuesday is a 28 year old male with past medical hx of ESRD on HD (T,R,Sa), HTN, GERD, Dialated Cardiomyopathy, Systolic CHF(EF 40%), Nicotine Dependence, Noncompliance, Chronic Respiratory Failure on 5-6L Home Oxygen via [place] presents to ED for evaluation of shortness of breath and chest pain for about a day. The patient was recently discharged from the hospital following presentation for similar incident which resolved with Thoracentesis. He reports that on discharge he was doing well but began having recurrent shortness of breath despite compliance with medication, dialysis and tobacco cessation. He on arrival to he ED was noted to have saturation in the 70s requiring BIPAP for improved oxygen saturation. Imaging studies was concerning for bilateral pleural effusion. Cardiac records showed EF 15-20% from about 10 months ago. Renal consulted for HD, cardiology recommended medical Mx. The right thoracentesis done on 05/24/18 removed 1.5Liters of fluids. Pulmonary will re-evaluate and discuss with patient possible Pleuex cathter due to recurrent effusion as outpt. Hospitalist Physical GENERAL: The patient is well-developed well-nourished male in Mild distress and on Venturi mask. HEENT: Normocephalic. Atraumatic. Extraocular motions are intact. Patient has moist mucous membranes. NECK: Supple. Trachea midline CHEST/LUNGS: coarse breath sounds. continues on BIPAP. Diminished breath sounds at the lung base. HEART/CARDIOVASCULAR: Regular. There is no gallop rub or murmur. ABDOMEN: Abdomen is soft, nontender. enlarged pannus, Patient has normal bowel sounds. There is no abdominal distention. SKIN: There is no rash. There is no diaphoresis. NEURO: The patient is awake, alert, and oriented. The patient is cooperative. The patient has normal speech MUSCULOSKELETAL: There is no evidence of acute injury. Subjective Date of service: 05/27/18 Principal diagnosis: esrd Interval history: Patient seen and examined this am, c/o abdominal distension denies chest pain, breathing states at his baseline Objective - Constitutional Vitals: Vital Signs - 12hr 05/27/18 05/27/18 05/27/18 09:52 10:25 10:35 Temperature 98.7 F Pulse Rate 65 68 65 Respiratory 20 Rate Blood Pressure 120/66 135/82 121/72 O2 Sat by Pulse 100 Oximetry O2 Sat by Pulse 95 Oximetry [ Posterior Bilateral Throughout] 05/27/18 05/27/18 05/27/18 10:45 11:00 11:15 Temperature Pulse Rate 64 67 63 Respiratory Rate Blood Pressure 118/79 120/71 121/76 O2 Sat by Pulse Oximetry O2 Sat by Pulse Oximetry [ Posterior Bilateral Throughout] 05/27/18 05/27/18 05/27/18 11:30 11:45 12:00 Temperature Pulse Rate 63 63 64 Respiratory Rate Blood Pressure 124/71 112/94 115/61 O2 Sat by Pulse Oximetry O2 Sat by Pulse Oximetry [ Posterior Bilateral Throughout] 05/27/18 05/27/18 05/27/18 12:15 12:30 12:45 Temperature Pulse Rate 64 54 L 61 Respiratory Rate Blood Pressure 111/62 131/65 125/75 O2 Sat by Pulse Oximetry O2 Sat by Pulse Oximetry [ Posterior Bilateral Throughout] 05/27/18 05/27/18 05/27/18 13:00 13:15 13:30 Temperature Pulse Rate 64 64 82 Respiratory Rate Blood Pressure 120/67 128/74 125/72 O2 Sat by Pulse Oximetry O2 Sat by Pulse Oximetry [ Posterior Bilateral Throughout] 05/27/18 05/27/18 05/27/18 13:42 13:45 14:00 Temperature Pulse Rate 63 55 L Respiratory 18 Rate Blood Pressure 124/76 100/67 O2 Sat by Pulse Oximetry O2 Sat by Pulse Oximetry [ Posterior Bilateral Throughout] 05/27/18 05/27/18 05/27/18 14:15 14:30 14:50 Temperature 98.7 F Pulse Rate 69 62 64 Respiratory 20 Rate Blood Pressure 111/75 124/76 128/72 O2 Sat by Pulse Oximetry O2 Sat by Pulse 95 Oximetry [ Posterior Bilateral Throughout] - Labs CBC & Chem 7: 05/27/18 05:13 05/27/18 05:13 Labs: Abnormal lab results 05/27/18 05/27/18 Range/Units 05:13 05:13 Hgb 7.8 L (11.8-15.2) gm/dl Hct 23.9 L (35.5-45.6) % Chloride 97.7 L (98-107) mmol/L Creatinine 4.0 H (0.8-1.5) mg/dL
[2018-05-27] MEDS: HumaLOG SUB-Q SCH ×3 (17:37→22:00)
[2018-05-27] MEDS: APRESOLINE PO SCH ×2 (17:38→22:05)
[2018-05-27] MEDS: CATAPRES PO SCH ×2 (17:38→21:57)
[2018-05-27] MEDS: PROTONIX PO SCH (17:50)
[2018-05-27] MEDS: Renal Caps PO SCH (17:50)
[2018-05-27] MEDS: HALFPRIN EC PO SCH (17:50)
[2018-05-27] MEDS: COREG PO SCH ×2 (17:55→22:05)
[2018-05-27] MEDS: SODIUM CHLORIDE FLUSH SYRINGE 10 ML IV SCH ×2 (17:56→22:06)
[2018-05-27] MEDS: PROCARDIA XL PO SCH ×2 (17:56→22:05)
[2018-05-28] MEDS: XANAX PO SCH ×2 (02:48→14:39)
[2018-05-28] MEDS: DILAUDID IV PRN ×3 (03:57→14:26)
[2018-05-28] MEDS: HumaLOG SUB-Q SCH ×2 (08:00→14:31)
[2018-05-28] MEDS: APRESOLINE PO SCH ×2 (08:30→14:30)
--- NOTE | 2018-05-28 11:51 | Progress Note ---
Assessment and Plan 28 y/o male with bilateral pleual effusions, ascities, and Hypertension with ESRD on HD, admitted with REspiratory failure. HD per renal Bipap therapy PRN and QHS Not sure exactly what patient is speaking about in regards to danger of pleurx. It does not require general anesthesia and should not put stress on his heart. The majority of procedure is done under local. I will ask Cards if this was discussed with him as risk as well as renal. I honestly think the patient should consider having this done given the frequency of recurrence of the effusions. The patient wishes to speak with his manufacturing coordinator, accounts payable coordinator and Dr. Palacios. Pleurx can be arranged as outpatient. Subjective Date of service: 05/28/18 Principal diagnosis: esrd Interval history: After HD was weaned to nasal cannula at 4 liters with documented sat of 100. Missed cards yesterday and they haven't rounded yet today. Shortness of breath is better. Objective Vital Signs - 12hr 05/28/18 10:56 Temperature 98.1 F Pulse Rate 64 Respiratory 16 Rate Blood Pressure 104/54 [Right] O2 Sat by Pulse 93 Oximetry Constitutional: no acute distress, alert, other (appears older than stated age) Eyes: icteric ENT: oropharynx moist Neck: supple, JVD Effort: mildly labored Ascultation: Bilateral: rales CBC and BMP: 05/27/18 05:13 05/27/18 05:13 Abnormal lab findings: Abnormal Labs 05/22/18 05/22/18 05/22/18 09:42 09:42 09:42 RBC 3.06 L Hgb 8.7 L Hct 27.3 L MCHC RDW 18.6 H Lymph % (Auto) 8.6 L [place] % (Auto) 8.2 H Lymph # 0.7 L Seg Neutrophils % 81.3 H Potassium 5.5 H Chloride Carbon Dioxide BUN 69 H Creatinine 7.8 H Glucose 120 H POC Glucose Calcium Troponin T 0.391 H* NT-Pro-B Natriuret Pep > 14447 H LDL Cholesterol Direct 41 L 05/22/18 05/22/18 05/23/18 13:11 15:52 05:24 RBC 2.83 L Hgb 7.9 L Hct 25.3 L MCHC 31 L RDW 18.5 H Lymph % (Auto) [place] % (Auto) Lymph # 1.0 L Seg Neutrophils % 74.9 H Potassium Chloride Carbon Dioxide BUN Creatinine Glucose POC Glucose Calcium Troponin T 0.324 H* 0.371 H* NT-Pro-B Natriuret Pep LDL Cholesterol Direct 05/23/18 05/23/18 05/24/18 05:24 08:48 05:25 RBC 2.68 L Hgb 7.7 L Hct 23.6 L MCHC RDW 18.8 H Lymph % (Auto) [place] % (Auto) Lymph # Seg Neutrophils % Potassium 6.1 H* Chloride Carbon Dioxide 19 L BUN 75 H Creatinine 8.3 H Glucose 69 L POC Glucose 62 L Calcium 8.1 L Troponin T NT-Pro-B Natriuret Pep LDL Cholesterol Direct 05/24/18 05/24/18 05/25/18 05:25 21:51 11:31 RBC Hgb Hct MCHC RDW Lymph % (Auto) [place] % (Auto) Lymph # Seg Neutrophils % Potassium Chloride Carbon Dioxide BUN 42 H Creatinine 5.4 H Glucose POC Glucose 112 H 110 H Calcium Troponin T NT-Pro-B Natriuret Pep LDL Cholesterol Direct 05/25/18 05/26/18 05/26/18 22:11 05:17 05:17 RBC 2.46 L Hgb 7.1 L Hct 21.4 L MCHC RDW 18.8 H Lymph % (Auto) [place] % (Auto) Lymph # Seg Neutrophils % Potassium Chloride 97.4 L Carbon Dioxide BUN 33 H Creatinine 5.4 H Glucose POC Glucose 150 H Calcium Troponin T NT-Pro-B Natriuret Pep LDL Cholesterol Direct 05/27/18 05/27/18 05:13 05:13 RBC Hgb 7.8 L Hct 23.9 L MCHC RDW Lymph % (Auto) [place] % (Auto) Lymph # Seg Neutrophils % Potassium Chloride 97.7 L Carbon Dioxide BUN Creatinine 4.0 H Glucose POC Glucose Calcium Troponin T NT-Pro-B Natriuret Pep LDL Cholesterol Direct
--- NOTE | 2018-05-28 11:51 | Progress Note ---
Assessment and Plan - Patient Problems (1) Acute on chronic systolic heart failure Current Visit: Yes Status: Acute Plan to address problem: Continue medical therapy for heart failure exacerbation, dilated nonischemic cardiomyopathy, and chronic systolic left ventricular dysfunction. Subjective Date of service: 05/28/18 Principal diagnosis: esrd Interval history: Patient is comfortable, laying supine without shortness of breath. No chest pain. No lower extremity edema. Objective Vital Signs Temp Pulse Resp BP BP Pulse Ox Pulse Ox 05/28/18 10:56 98.1 F 64 16 104/54 93 05/27/18 22:39 66 05/27/18 22:32 100 05/27/18 21:59 20 05/27/18 21:38 100 05/27/18 19:58 98.4 F 66 18 134/68 99 05/27/18 19:00 100 05/27/18 14:50 98.7 F 64 20 128/72 95 05/27/18 14:30 62 124/76 05/27/18 14:15 69 111/75 05/27/18 14:00 55 L 100/67 05/27/18 13:45 63 124/76 05/27/18 13:42 18 05/27/18 13:30 82 125/72 05/27/18 13:15 64 128/74 05/27/18 13:00 64 120/67 05/27/18 12:45 61 125/75 05/27/18 12:30 54 L 131/65 05/27/18 12:15 64 111/62 05/27/18 12:00 64 115/61 - Physical Examination General: No Apparent Distress HEENT: Positive: PERRL Neck: Positive: trachea midline Cardiac: Positive: Reg Rate and Rhythm Lungs: Positive: Decreased Breath Sounds Neuro: Positive: Grossly Intact Abdomen: Positive: Soft Skin: Positive: Clear Extremities: Absent: edema
--- NOTE | 2018-05-28 12:34 | Progress Note ---
Assessment and Plan Impression: * ESRD * Pleural effusion * HTN * ANemia in ESRD * noncompliance * cardiomyopathy Plan: * hd Q MWF and prn * uf as tolerated with hd * daily lytes * strict i/os * stress compliance with dialysis therapy * patient drinks excessive amount of fluid despite being counseled and educated * ok to dc from renal standpoint Subjective Date of service: 05/28/18 Principal diagnosis: esrd Interval history: resting in well today Objective - Exam Narrative Exam: HEENT: Oral mucosa moist no pallor or icterus Neck: Supple no JVD Chest: Diminished breath sounds crackles Lung sounds are better post thoracentesis CVS: Regular rate and rhythm S1 and S2 heard Abdomen: Soft nontender no suprapubic masses no organomegaly appreciable Extremity: Dry skin less than 1+ peripheral edema Musculoskeletal: No joint effusion noted in knees and ankle Neurological: Alert awake Dermatology: No petechial rashes Psychiatry: No evidence of any agitation and aggression noted - Vital Signs Vital signs: Vital Signs - 12hr 05/28/18 10:56 Temperature 98.1 F Pulse Rate 64 Respiratory 16 Rate Blood Pressure 104/54 [Right] O2 Sat by Pulse 93 Oximetry - Lab 05/27/18 05:13 05/27/18 05:13 Most recent lab results Calcium 8.4 mg/dL (8.4-10.2) 05/27/18 05:13 Medications & Allergies - Medications Allergies/Adverse Reactions: Allergies heparin Allergy (Verified 04/21/18 14:26) lowers platelets Home Medications: Home Medications Medication Instructions Recorded Confirmed Last Taken Type AtorvaSTATin [Lipitor] 40 mg PO QHS #30 tab 03/27/18 05/22/18 Unknown Rx Esomeprazole Magnesium [Nexium] 40 mg PO DAILY #30 capsule. 03/27/18 05/22/18 Unknown Rx Folic Acid/Vit B Comp W-C [Renal 1 cap PO QDAY #60 capsule 03/27/18 05/22/18 Unknown Rx Caps] cloNIDine [Catapres] 0.3 mg PO TID 30 Days tablet 03/27/18 05/22/18 Unknown Rx hydrALAZINE [Apresoline TAB] 100 mg PO TID #90 tab 03/27/18 05/22/18 Unknown Rx traZODone [Desyrel] 100 mg PO QHS #30 tablet 03/27/18 05/22/18 Unknown Rx NIFEdipine [Adalat cc] 90 mg PO BID 04/11/18 05/22/18 Unknown History Diclofenac Sodium [Voltaren] 100 gm TP Q6H #1 gel..gram. 04/21/18 05/22/18 Unknown Rx ALBUTEROL NEB's [Proventil 0.083% 2.5 mg IH Q4HRT PRN nebu 05/19/18 05/22/18 Unknown Rx NEBS] ALPRAZolam [Xanax TAB] 0.5 mg PO Q12HR #20 tablet 05/19/18 05/22/18 Unknown Rx Aspirin EC [Aspirin Enteric Coated 81 mg PO QDAY tablet 05/19/18 05/22/18 Unknown Rx TAB] AtorvaSTATin [Lipitor] 40 mg PO QHS tablet 05/19/18 05/22/18 Unknown Rx Carvedilol [Coreg] 25 mg PO BID tablet 05/19/18 05/22/18 Unknown Rx Active Medications: Generic Name Dose Route Start Last Admin Trade Name Freq PRN Reason Stop Dose Admin Acetaminophen 650 mg 05/22/18 10:37 Tylenol PO Q4H PRN Pain MILD(1-3)/Fever >100.5/JENKINS Albuterol 2.5 mg 05/22/18 10:41 Proventil IH Q4HRT PRN Shortness Of Breath Alprazolam 0.5 mg 05/22/18 22:00 05/28/18 02:48 Xanax PO Not Given Q12HR CHONG Aspirin 81 mg 05/23/18 10:00 05/27/18 17:50 Halfprin Ec PO 81 mg QDAY CHONG Administration Atorvastatin Calcium 40 mg 05/22/18 22:00 05/27/18 22:05 Lipitor PO 40 mg QHS CHONG Administration Carvedilol 25 mg 05/22/18 22:00 05/27/18 22:05 Coreg PO 25 mg BID CHONG Administration Clonidine HCl 0.3 mg 05/22/18 14:00 05/27/18 21:57 Catapres PO Not Given TID CHONG Epoetin Davis 20,000 unit 05/27/18 09:45 05/27/18 13:29 Procrit IV 20,000 unit APRIL PRN Administration hemodialysis Hydralazine HCl 100 mg 05/22/18 14:00 05/27/18 22:05 Apresoline PO 100 mg TID CHONG Administration Hydromorphone HCl 1 mg 05/22/18 12:33 05/28/18 08:01 Dilaudid IV 1 mg Q4H PRN Administration Pain , Severe (7-10) Sodium Chloride 100 mls @ 999 mls/hr 05/23/18 09:16 Nacl 0.9% IV APRIL PRN Hypotension Insulin Human Lispro 0 unit 05/23/18 11:30 05/28/18 08:00 Humalog SUB-Q Not Given ACHS [facility] Protocol Multivit/Ca Carb/B Cmplx/FA/Prenat 1 cap 05/23/18 10:00 05/27/18 17:50 Renal Caps PO 1 cap QDAY CHONG Administration Nifedipine 90 mg 05/22/18 22:00 05/27/18 22:05 Procardia Xl PO 90 mg BID CHONG Administration Ondansetron HCl 4 mg 05/22/18 10:37 Zofran IV Q8H PRN Nausea And Vomiting Pantoprazole Sodium 40 mg 05/23/18 10:00 05/27/18 17:50 Protonix PO 40 mg DAILY CHONG Administration Polyethylene Glycol 17 gm 05/26/18 20:38 05/26/18 21:49 Miralax 3350 PO 17 gm QDAY PRN Administration Constipation Sodium Chloride 10 ml 05/22/18 22:00 05/27/18 22:06 Sodium Chloride Flush Syringe 10 Ml IV 10 ml BID CHONG Administration Sodium Chloride 10 ml 05/22/18 10:37 Sodium Chloride Flush Syringe 10 Ml IV PRN PRN LINE FLUSH Trazodone HCl 100 mg 05/22/18 22:00 05/27/18 22:05 Desyrel PO 100 mg QHS CHONG Administration
--- NOTE | 2018-05-28 13:24 | Discharge Summary ---
Providers - Providers Date of Admission: 05/22/18 10:37 Date of discharge: 05/28/18 Attending physician: IAIN PEMBERTON 05/22/18 Consult to Cardiac Rehabilitation [CONS] Routine Reason For Exam: Phase I 05/22/18 10:39 Consult to Physician [CONS] Stat Comment: Consulting Provider: JOHN SMITH Physician Instructions: Reason For Exam: dialysis 05/22/18 10:40 Consult to Physician [CONS] Routine Comment: Consulting Provider: CARINA SCHROEDER Physician Instructions: Reason For Exam: chf Consult to Physician [CONS] Routine Comment: Consulting Provider: OLESYA ELLIOTT Physician Instructions: Reason For Exam: esrd 05/22/18 18:25 Consult to Physician [CONS] Routine Comment: Consulting Provider: TIANNA WASHINGTON Physician Instructions: Reason For Exam: pleural effusion Primary care physician: THA BALLESTEROS Hospitalization Reason for admission: SOB Condition: Critical Hospital course: Brief History: Mr Tuesday is a 28 year old male with past medical hx of ESRD on HD (T,R,Sa), HTN, GERD, Dialated Cardiomyopathy, Systolic CHF(EF 40%), Nicotine Dependence, Noncompliance, Chronic Respiratory Failure on 5-6L Home Oxygen via [place] presents to ED for evaluation of shortness of breath and chest pain for about a day. The patient was recently discharged from the hospital following presentation for similar incident which resolved with Thoracentesis. He reports that on discharge he was doing well but began having recurrent shortness of breath despite comp liance with medication, dialysis and tobacco cessation. He on arrival to he ED was noted to have saturation in the 70s requiring BIPAP for improved oxygen saturation. Imaging studies was concerning for bilateral pleural effusion. Cardiac records showed EF 15-20% from about 10 months ago. Renal consulted for HD, cardiology recommended medical Mx. The right thoracentesis done on 05/24/18 removed 1.5Liters of fluids. Pulmonary recommended to re-evaluate and discuss with patient possible Pleuex cathter due to recurrent effusion as outpt. Patient was then discharged home in stable condition. Discharge diagnosis: Acute on chronic hypoxic respiratory failure; secondary to fluid overload End-stage renal disease on hemodialysis Hyperkalemia; due to ESRD, management per nephrology Nonischemic Dilated cardiomyopathy; ejection fraction 15 - 20% Recurrent Bilateral pleural effusion due to noncompliance, CHF and ESRD - s/p thoracentesis on 05/24 and 05/26 - Plan for pleurex as outpt Anemia, chronic, likely from ESRD hypertension; moderate control, Tobacco use disorder: Reports he quit two weeks ago Medical noncompliance; counseled advised to comply with hemodialysis medications and diet Chronic Ascities, from volume overload Hospitalist Physical GENERAL: The patient is a while male in no distress and on N/C. HEENT: Normocephalic. Atraumatic. Extraocular motions are intact. Patient has moist mucous membranes. NECK: Supple. Trachea midline CHEST/LUNGS: Diminished breath sounds at the lung base. HEART/CARDIOVASCULAR: Regular. There is no gallop rub or murmur. ABDOMEN: Abdomen is soft, nontender. Patient has normal bowel sounds. There is no abdominal distention. SKIN: There is no rash. There is no diaphoresis. NEURO: The patient is awake, alert, and oriented. The patient is cooperative. The patient has normal speech MUSCULOSKELETAL: There is no evidence of acute injury. Disposition: TO HOME OR SELFCARE Time spent for discharge: 34 minutes Core Measure Documentation - Palliative Care Palliative Care/ Comfort Measures: Not Applicable - Core Measures Any of the following diagnoses?: history only Exam - Constitutional Vitals: Temp Pulse Resp BP Pulse Ox 98.1 F 64 16 104/54 93 05/28/18 10:56 05/28/18 10:56 05/28/18 10:56 05/28/18 10:56 05/28/18 10:56 Plan Activity: fall precautions Weight Bearing Status: Non-Weight Bearing Diet: renal Follow up with: PRIMARY CAREMD [Referring] - 3-5 Days
[2018-05-28] MEDS: HALFPRIN EC PO SCH (14:39)
[2018-05-28] MEDS: Renal Caps PO SCH (14:39)
[2018-05-28] MEDS: PROTONIX PO SCH (14:39)
[2018-05-28] MEDS: SODIUM CHLORIDE FLUSH SYRINGE 10 ML IV SCH (14:40)
[2018-05-28] MEDS: COREG PO SCH (14:41)
[2018-05-28] MEDS: CATAPRES PO SCH (14:41)
[2018-05-28 14:42] VITALS: BP 113/62
== END 2018-05-28 15:50 | disposition home or self-care (01) | DRG 291 ==
LOC: ED 09:14 → 4A 10:37
PROVIDERS: ADMIT Internal Medicine; ATTEND Internal Medicine
PROC: 5A1D70Z Performance of Urinary Filtration, Intermittent, Less than 6 Hours Per Day (ICD-10-PCS; 2018-05-23)
PROC: 0W993ZZ Drainage of Right Pleural Cavity, Percutaneous Approach (ICD-10-PCS; 2018-05-24)
PROC: 5A1D70Z Performance of Urinary Filtration, Intermittent, Less than 6 Hours Per Day (ICD-10-PCS; 2018-05-24)
PROC: 0W9B3ZZ Drainage of Left Pleural Cavity, Percutaneous Approach (ICD-10-PCS; principal; 2018-05-26)
PROC: 5A1D70Z Performance of Urinary Filtration, Intermittent, Less than 6 Hours Per Day (ICD-10-PCS; 2018-05-26)
PROC: 5A1D70Z Performance of Urinary Filtration, Intermittent, Less than 6 Hours Per Day (ICD-10-PCS; 2018-05-27)
DX: I13.2 Hypertensive heart and chronic kidney disease with heart failure and with stage 5 chronic kidney disease, or end stage renal disease (principal); J96.21 Acute and chronic respiratory failure with hypoxia; N18.6 End stage renal disease; I50.43 Acute on chronic combined systolic (congestive) and diastolic (congestive) heart failure; J91.8 Pleural effusion in other conditions classified elsewhere; D61.818 Other pancytopenia; R18.8 Other ascites; I42.0 Dilated cardiomyopathy; M19.90 Unspecified osteoarthritis, unspecified site; E87.5 Hyperkalemia; D63.1 Anemia in chronic kidney disease; K21.9 Gastro-esophageal reflux disease without esophagitis; E21.3 Hyperparathyroidism, unspecified; I25.10 Atherosclerotic heart disease of native coronary artery without angina pectoris; F17.210 Nicotine dependence, cigarettes, uncomplicated; Z99.81 Dependence on supplemental oxygen; Z79.899 Other long term (current) drug therapy; Z79.82 Long term (current) use of aspirin; Z88.8 Allergy status to other drugs, medicaments and biological substances; Z90.49 Acquired absence of other specified parts of digestive tract; Z91.15 Patient's noncompliance with renal dialysis
CPT/HCPCS: 32555; 36415; 71045; 74018; 76705; 80048; 80061; 82962; 83880; 84484; 85014; 85018; 85025; 85027; 87116; 93005; 93010; 94660; 94760; 96374; 99291; G0378; A9270-GY; C1729; J0885; J1170; J2270; J7030

== ENCOUNTER 2018-05-31 20:35 | Inpatient (IN) | payer MEDICARE ==
--- NOTE | 2018-05-31 20:47 | Emergency Department Report ---
Blank Doc - Documentation Documentation: This is a 28-year-old male that presents with chest pain with shortness of joshua athe. This initial assessment/diagnostic orders/clinical plan/treatment(s) is/are subject to change based on patient's health status, clinical progression and re- assessment by fellow clinical providers in the ED. Further treatment and workup at subsequent clinical providers discretion. Patient/guardians urged not to elope from the ED as their condition may be serious if not clinically assessed and managed. Initial orders include: 1- Patient sent to MAIN for further evaluation and treatment 2- cxr 3- EKG 4- labs
[2018-05-31 21:15] LABS: Basophils # (Auto) 0.1 K/mm3 (0.0-0.1); Basophils % (Auto) 1.1 % (0.0-1.8); Eosinophils # (Auto) 0.2 K/mm3 (0.0-0.4); Eosinophils % (Auto) 1.8 % (0.0-4.3); Hematocrit 24.8 % (35.5-45.6); Hemoglobin 8.1 gm/dl (11.8-15.2); Lymphocytes # (Auto) 1.6 K/mm3 (1.2-5.4); Lymphocytes % (Auto) 15.8 % (13.4-35.0); Mean Corpuscular HGB Conc 33 % (32-34); Mean Corpuscular Volume 87 fl (84-94); Monocytes # (Auto) 1.1 K/mm3 (0.0-0.8); Monocytes % (Auto) 10.9 % (0.0-7.3); Platelet Count 232 K/mm3 (140-440); Red Blood Count 2.84 M/mm3 (3.65-5.03); Red Cell Distribution Width 18.7 % (13.2-15.2)
[2018-05-31 21:34] LABS: Albumin 3.4 g/dL (3.9-5); Calcium 8.7 mg/dL (8.4-10.2)
[2018-05-31] MEDS ORDERED: SUBLIMAZE IV ONE (21:38)
[2018-05-31] MEDS ORDERED: ZOFRAN IV ONE (21:38)
[2018-05-31] MEDS ORDERED: NITRO-BID 2% TP ONE (21:38)
[2018-05-31] MEDS ORDERED: ASPIRIN PO ONE (21:38)
[2018-05-31 21:43] LABS: INR 1.15 (0.87-1.13)
--- NOTE | 2018-05-31 21:43 | Emergency Department Report ---
HPI - General Chief Complaint: Chest Pain Time Seen by Provider: 05/31/18 20:46 - HPI HPI: Room 18 The patient is a 28-year-old male presenting with a chief complaint of shortness of breath and chest pain. The patient states for one day he's had worsening shortness of breath and constant chest pain films show something sitting on his chest. Patient admits to nausea and vomiting but denies diaphoresis with this chest pain. Patient currently gives his pain a score of 9/10. Location: Chest, lungs Duration: One day Quality: Pressure Severity:9/10 Modifying factors: [see above] Context: [see above] Mode of transportation: [not driving] ED Past Medical Hx - Past Medical History Hx Hypertension: Yes Hx Congestive Heart Failure: Yes (4LPM at home) Hx GERD: Yes Hx Renal Disease: Yes (ESRD T-) Hx Arthritis: Yes (SPINE) Additional medical history: Hidradenitis, EJF 40%, enlarged heart - Surgical History Additional Surgical History: PD CATHETER - AND REMOVAL. AV FISTULA. LYMPH NOD ES REMOVED LEFT GROIN. TONSILLECTOMY. Patient does have a history of peritonitis with previous PD - Family History Family history: no significant - Social History Smoking Status: Former Smoker (none 3 weeks) Substance Use Type: None (denies illicit drug use) - Medications Home Medications: Home Medications Medication Instructions Recorded Confirmed Last Taken Type AtorvaSTATin [Lipitor] 40 mg PO QHS #30 tab 03/27/18 05/22/18 Unknown Rx Esomeprazole Magnesium [Nexium] 40 mg PO DAILY #30 capsule. 03/27/18 05/22/18 Unknown Rx Folic Acid/Vit B Comp W-C [Renal 1 cap PO QDAY #60 capsule 03/27/18 05/22/18 Unknown Rx Caps] cloNIDine [Catapres] 0.3 mg PO TID 30 Days tablet 03/27/18 05/22/18 Unknown Rx hydrALAZINE [Apresoline TAB] 100 mg PO TID #90 tab 03/27/18 05/22/18 Unknown Rx traZODone [Desyrel] 100 mg PO QHS #30 tablet 03/27/18 05/22/18 Unknown Rx NIFEdipine [Adalat cc] 90 mg PO BID 04/11/18 05/22/18 Unknown History Diclofenac Sodium [Voltaren] 100 gm TP Q6H #1 gel..gram. 04/21/18 05/22/18 Unknown Rx ALBUTEROL NEB's [Proventil 0.083% 2.5 mg IH Q4HRT PRN nebu 05/19/18 05/22/18 Unknown Rx NEBS] ALPRAZolam [Xanax TAB] 0.5 mg PO Q12HR #20 tablet 05/19/18 05/22/18 Unknown Rx Aspirin EC [Aspirin Enteric Coated 81 mg PO QDAY tablet 05/19/18 05/22/18 Unknown Rx TAB] AtorvaSTATin [Lipitor] 40 mg PO QHS tablet 05/19/18 05/22/18 Unknown Rx Carvedilol [Coreg] 25 mg PO BID tablet 05/19/18 05/22/18 Unknown Rx ED Review of Systems ROS: Stated complaint: CHEST PAIN/SOB/ABDOMINAL PAIN Other details as noted in HPI Constitutional: denies: diaphoresis Eyes: denies: eye pain ENT: denies: throat pain Respiratory: shortness of breath Cardiovascular: chest pain Endocrine: no symptoms reported Gastrointestinal: nausea, vomiting Genitourinary: denies: testicular pain Musculoskeletal: denies: back pain Neurological: denies: headache Physical Exam - Physical Exam Vital Signs: Vital Signs 05/31/18 20:46 Temperature 98 F Pulse Rate 76 Respiratory 16 Rate Blood Pressure 173/79 O2 Sat by Pulse 92 Oximetry Physical Exam: GENERAL: The patient is well-developed well-nourished male lying on stretcher not appearing to be in acute distress. [] HEENT: Normocephalic. Atraumatic. Extraocular motions are intact. Patient has moist mucous membranes. NECK: Supple. Trachea midline CHEST/LUNGS: Faint crackles left base. There is no respiratory distress noted. HEART/CARDIOVASCULAR: Regular. There is no tachycardia. There is no gallop rub or murmur. ABDOMEN: Abdomen is soft, nontender. Patient has normal bowel sounds. There is no abdominal distention. SKIN: There is no rash. There is no diaphoresis. NEURO: The patient is awake, alert, and oriented. The patient is cooperative. The patient has normal speech MUSCULOSKELETAL: There is no evidence of acute injury. ED Course Vital Signs 05/31/18 20:46 Temperature 98 F Pulse Rate 76 Respiratory 16 Rate Blood Pressure 173/79 O2 Sat by Pulse 92 Oximetry ED Medical Decision Making - Lab Data Result diagrams: 05/31/18 20:50 05/31/18 20:50 Laboratory Tests 05/31/18 05/31/18 05/31/18 20:50 20:50 20:50 WBC 9.9 RBC 2.84 L Hgb 8.1 L Hct 24.8 L MCV 87 MCH 29 MCHC 33 RDW 18.7 H Plt Count 232 Lymph % (Auto) 15.8 Granite % (Auto) 10.9 H Eos % (Auto) 1.8 Baso % (Auto) 1.1 Lymph # 1.6 Granite # 1.1 H Eos # 0.2 Baso # 0.1 Seg Neutrophils % 70.4 H Seg Neutrophils # 7.0 PT 15.4 H INR 1.15 H APTT 34.5 Sodium 142 Potassium 4.2 Chloride 99.5 Carbon Dioxide 27 Anion Gap 20 BUN 37 H Creatinine 5.5 H Estimated GFR 12 BUN/Creatinine Ratio 7 Glucose 89 Calcium 8.7 Total Bilirubin 0.40 AST 30 ALT 12 Alkaline Phosphatase 98 Troponin T 0.352 H* Total Protein 8.7 H Albumin 3.4 L Albumin/Globulin Ratio 0.6 Triglycerides 57 Cholesterol 92 LDL Cholesterol Direct 41 L HDL Cholesterol 39 L Cholesterol/HDL Ratio 2.35 - EKG Data -: EKG Interpreted by Me EKG shows normal: sinus rhythm Rate: normal - EKG Data When compared to previous EKG there are: no significant change Interpretation: unchanged when compared t (05/24/2018) - Radiology Data Radiology results: report reviewed (chest x-ray), image reviewed (chest x-ray) interpreted by me: Chest x-ray cardiomegaly. Bilateral pleural effusions [address] [address] XRay Report Signed Patient: LUIS Alcocer MR#: [id number] 4 : 1990 Acct:[id number] Age/Sex: 28 / M ADM Date: 05/31/18 Loc: ED Attending Dr: Ordering Physician: AURORA RESENDIZ NP Date of Service: 05/31/18 Procedure(s): XR chest routine 2V Accession Number(s): [id number] cc: AURORA RESENDIZ NP Fluoro Time In Minutes: EXAM: XR CHEST ROUTINE 2V HISTORY: Chest Pain TECHNIQUE: AP and lateral chest x-ray dated 05/31/2018 at 2107 hours. COMPARISON: None available. FINDINGS: There is evidence for severe cardiomegaly (occult pericardial effusion not excluded). The pulmonary vascularity and interstitial markings are diffusely prominent, consistent with CHF or volume overload in the appropriate clinical setting; differential diagnosis includes (but is not limited to) bronchitis and bronchopneumonia in the appropriate clinical setting. There are moderate to large bilateral pleural effusions with bibasilar compressive/consolidative atelectatic changes; cannot rule out occult bilateral lower lobe parenchymal infiltrates in the appropriate clinical setting. No pneumothorax is seen. The visualized bony structures are within normal limits. IMPRESSION: 1. Findings consistent with mild CHF or volume overload in the appropriate clinical setting; DDX includes bronchitis and bronchopneumonia in the appropriate clinical setting. Recommend clinical correlation and appropriate followup evaluation as clinically warranted. 2. Moderate to large bilateral pleural effusions (left greater than right) with bibasilar compressive/consolidative atelectatic changes; cannot rule out occult bilateral lower lobe parenchymal infiltrates in the appropriate clinical setting. This document is electronically signed by Nathaniel Grant MD., May 31 2018 09:56:21 PM ET Transcribed By: ASM Dictated By: NATHANIEL GRANT Electronically Authenticated By: NATHANIEL GRANT Signed Date/Time: 05/31/182157 DD/ 14 TD/TT: 05/31/182114 - Differential Diagnosis ACS, CHF exacerbation, pleural effusion Critical care attestation.: If time is entered above; I have spent that time in minutes in the direct care of this critically ill patient, excluding procedure time. ED Disposition Clinical Impression: Chest pain, Shortness of breath, Pleural effusion Disposition: OP ADMIT IP TO THIS HOSP Is pt being admited?: Yes Does the pt Need Aspirin: Yes Condition: Fair Instructions: Chest Pain (ED) Referrals: PRIMARY CARE, [Primary Care Provider] - 3-5 Days Time of Disposition: 22:57 (hospitalist paged (Dr. Michelle Salgado))
[2018-05-31 21:44] LABS: Partial Thromboplastin Time 34.5 Sec. (24.2-36.6)
--- NOTE | 2018-05-31 21:58 | XRay Report ---
EXAM: XR CHEST ROUTINE 2V HISTORY: Chest Pain TECHNIQUE: AP and lateral chest x-ray dated 05/31/2018 at 2107 hours. COMPARISON: None available. FINDINGS: There is evidence for severe cardiomegaly (occult pericardial effusion not excluded). The pulmonary v ascularity and interstitial markings are diffusely prominent, consistent with CHF or volume overload in the appropriate clinical setting; differential diagnosis includes (but is not limited to) bronchit is and bronchopneumonia in the appropriate clinical setting. There are moderate to large bilateral pleural effusions with bibasilar compressive/consolidative atel ectatic changes; cannot rule out occult bilateral lower lobe parenchymal infiltrates in the appropria te clinical setting. No pneumothorax is seen. The visualized bony structures are within normal limits . IMPRESSION: 1. Findings consistent with mild CHF or volume overload in the appropriate clinical setting; DDX in cludes bronchitis and bronchopneumonia in the appropriate clinical setting. Recommend clinical correl ation and appropriate followup evaluation as clinically warranted. 2. Moderate to large bilateral pleural effusions (left greater than right) with bibasilar compressiv e/consolidative atelectatic changes; cannot rule out occult bilateral lower lobe parenchymal infiltra clinton in the appropriate clinical setting. This document is electronically signed by Beck Appiah MD., May 31 2018 09:56:21 PM ET
[2018-05-31 22:03] LABS: Chol/HDL Ratio 2.35 %
--- NOTE | 2018-06-01 02:42 | Cat Scan Report ---
PROCEDURE: CT ANGIOGRAM OF THE CHEST FOR PULMONARY EMBOLISM TECHNIQUE: Computerized axial tomographic angiography of the chest and pulmonary arteries was perfor med after the IV injection of iodinated nonionic contrast. The image data was postprocessed using max imum intensity projection (MIP) and 2-dimensional multiplanar reformatted (MPR) techniques. The exami nation is specifically tailored to the evaluation of the pulmonary arteries per clinical request. Au tomated exposure control, adjustment of mA and/or kV according to patient size, or iterative reconstr uction dose optimization techniques were utilized. CPT G9637, 84337 HISTORY: Shortness of breath R06.02, chest pain unspecified R07.9 , COMPARISONS: None . FINDINGS: Heart and pericardium: Heart is enlarged. There is a large pericardial effusion.. Thoracic aorta: There is no thoracic aortic aneurysm or dissection.. Pulmonary vasculature: There is no pulmonary embolism.. Lymph nodes: No enlarged thoracic lymph nodes. Lungs: There is atelectasis of the mid and lower lung zones bilaterally due to pleural effusions.. Pleural space: There are large bilateral pleural effusions. There is no pneumothorax.. Musculoskeletal structures: No significant abnormality. Upper abdominal structures: No significant abnormality. IMPRESSION: There is no pulmonary embolism. There is no thoracic aortic aneurysm or dissection. There is cardiomegaly. There is a large pericardi al effusion. There are bilateral pleural effusions causing compressive atelectasis at the lung bases.. This document is electronically signed by Emmett Messer MD., June 01 2018 02:40:35 AM ET
[2018-06-01] MEDS ORDERED: SODIUM CHLORIDE FLUSH SYRINGE 10 ML IV PRN (03:09)
[2018-06-01] MEDS ORDERED: TYLENOL PO PRN (03:09)
--- NOTE | 2018-06-01 03:30 | History and Physical Report ---
History of Present Illness Date of examination: 06/01/18 History of present illness: 28-year-old man with a history of end-stage renal disease on dialysis Tuesday, , Tuesday, CHF with EF of 15%, GERD, hypertension, Chronic Respiratory Failure on 6L Home Oxygen comes to the emergency room with complaints of shor tness of breath and chest pain. Chest pain is across his chest which is described as sharp, pressure-like sensation, [place] nonstressed, constant, intensity 5/10, no radiation, cannot identify exacerbating or relieving factors. He had a stress test 4 months ago which was negative. He was just discharged from the hospital on 05/28 for treatment of chest pain, shortness breath, status post thoracentesis for bilateral pleural effusion. No nausea vomiting, diaphoresis Review of systems Constitutional: no weight loss, chills, fever Ears, eyes, nose, mouth and throat: no nasal congestion, no nasal discharge, no sinus pressure, no vision change, no red eye. Neck: No neck pain or rigidity. Cardiovascular: no palpitations, +chest pain Respiratory: no cough, +shortness of breath Gastrointestinal: no hematochezia, abdominal pain Genitourinary : no frequency , no hematuria Musculoskeletal: no joint swelling or muscle ache Integumentary: no rash, no pruritis Neurological: no parathesias, no focal weakness Endocrine: no cold or heat intolerance, no polyuria or polydipsia Hematologic/Lymphatic: no easy bruising, no easy bleeding, no gland swelling Allergic/Immunologic: no urticaria, no angioedema. PAST MEDICAL HISTORY: end-stage renal disease on dialysis Tuesday, , Tuesday, GERD, hypertension, Chronic Respiratory Failure on 6L Home Oxygen PAST SURGICAL HISTORY: AV fistula, tonsillectomy SOCIAL HISTORY: No alcohol, no drugs, tobacco FAMILY HISTORY: Hypertension Medications and Allergies Allergies Allergy/AdvReac Type Severity Reaction Status Date / Time heparin Allergy lowers Verified 04/21/18 14:26 platelets Home Medications Medication Instructions Recorded Confirmed Last Taken Type AtorvaSTATin [Lipitor] 40 mg PO QHS #30 tab 03/27/18 05/22/18 Unknown Rx Esomeprazole Magnesium [Nexium] 40 mg PO DAILY #30 capsule. 03/27/18 05/22/18 Unknown Rx Folic Acid/Vit B Comp W-C [Renal 1 cap PO QDAY #60 capsule 03/27/18 05/22/18 Unknown Rx Caps] cloNIDine [Catapres] 0.3 mg PO TID 30 Days tablet 03/27/18 05/22/18 Unknown Rx hydrALAZINE [Apresoline TAB] 100 mg PO TID #90 tab 03/27/18 05/22/18 Unknown Rx traZODone [Desyrel] 100 mg PO QHS #30 tablet 03/27/18 05/22/18 Unknown Rx NIFEdipine [Adalat cc] 90 mg PO BID 04/11/18 05/22/18 Unknown History Diclofenac Sodium [Voltaren] 100 gm TP Q6H #1 gel..gram. 04/21/18 05/22/18 Unknown Rx ALBUTEROL NEB's [Proventil 0.083% 2.5 mg IH Q4HRT PRN nebu 05/19/18 05/22/18 Unknown Rx NEBS] ALPRAZolam [Xanax TAB] 0.5 mg PO Q12HR #20 tablet 05/19/18 05/22/18 Unknown Rx Aspirin EC [Aspirin Enteric Coated 81 mg PO QDAY tablet 05/19/18 05/22/18 Unknown Rx TAB] AtorvaSTATin [Lipitor] 40 mg PO QHS tablet 05/19/18 05/22/18 Unknown Rx Carvedilol [Coreg] 25 mg PO BID tablet 05/19/18 05/22/18 Unknown Rx Active Meds: Active Medications Acetaminophen (Tylenol) 650 mg PO Q4H PRN PRN Reason: Pain MILD(1-3)/Fever >100.5/JENKINS Morphine Sulfate (Morphine) 2 mg IV Q4H PRN PRN Reason: Pain, Moderate (4-6) Ondansetron HCl (Zofran) 4 mg IV Q8H PRN PRN Reason: Nausea And Vomiting Sodium Chloride (Sodium Chloride Flush Syringe 10 Ml) 10 ml IV BID CHONG Sodium Chloride (Sodium Chloride Flush Syringe 10 Ml) 10 ml IV PRN PRN PRN Reason: LINE FLUSH Exam - Physical Exam Narrative exam: General Apperance: The patient lying in bed, breathing comfortable HEENT: Normocephalic, atraumatic. Pupils equally round and reactive to light, EOMI, no sclericterus or JVD or thyromegaly or nodule. , no carotid bruit, mucous membranes moist, no exudate or erythema Heart: S1-S2, regular is rhythm Lungs: Decreased breath sound at bases bilaterally, breathing comfortable Abdomen: Positive bowel sounds, soft, nontender, nondistended, no organomegaly Extremities: No edema cyanosis clubbing Skin: no rash, nodule, warm and dry Neuro: cranial nerves 2-12 intact, speech is fluent, motor/sensory intact - Constitutional Vitals: Temp Pulse Resp BP Pulse Ox 98 F 76 16 173/79 92 05/31/18 20:46 05/31/18 20:46 05/31/18 20:46 05/31/18 20:46 05/31/18 20:46 Results - Labs CBC & Chem 7: 06/01/18 03:42 06/01/18 03:42 Labs: Abnormal lab results 05/31/18 05/31/18 05/31/18 Range/Units 20:50 20:50 20:50 RBC 2.84 L (3.65-5.03) M/mm3 Hgb 8.1 L (11.8-15.2) gm/dl Hct 24.8 L (35.5-45.6) % RDW 18.7 H (13.2-15.2) % Barry % (Auto) 10.9 H (0.0-7.3) % Barry # 1.1 H (0.0-0.8) K/mm3 Seg Neutrophils % 70.4 H (40.0-70.0) % PT 15.4 H (12.2-14.9) Sec. INR 1.15 H (0.87-1.13) BUN 37 H (9-20) mg/dL Creatinine 5.5 H (0.8-1.5) mg/dL Troponin T 0.352 H* (0.00-0.029) ng/mL Total Protein 8.7 H (6.3-8.2) g/dL Albumin 3.4 L (3.9-5) g/dL LDL Cholesterol Direct 41 L (50-130) mg/dL HDL Cholesterol 39 L (40-59) mg/dL 05/31/18 Range/Units 23:30 RBC (3.65-5.03) M/mm3 Hgb (11.8-15.2) gm/dl Hct (35.5-45.6) % RDW (13.2-15.2) % Barry % (Auto) (0.0-7.3) % Barry # (0.0-0.8) K/mm3 Seg Neutrophils % (40.0-70.0) % PT (12.2-14.9) Sec. INR (0.87-1.13) BUN (9-20) mg/dL Creatinine (0.8-1.5) mg/dL Troponin T 0.365 H* (0.00-0.029) ng/mL Total Protein (6.3-8.2) g/dL Albumin (3.9-5) g/dL LDL Cholesterol Direct (50-130) mg/dL HDL Cholesterol (40-59) mg/dL - Imaging and Cardiology EKG: image reviewed Chest x-ray: report reviewed CT scan - chest: report reviewed Assessment and Plan Assessment Bilateral pleural effusion, status post recent thoracentesis Large pericardial effusion Chest pain Abnormal cardiac enzymes End-stage renal Hypertension Plan Admit to medicine Check cardiac enzymes, echo, consult cardiology Renal is consulted IV morphine, DVT prophylaxis Addendum please follow med rec
[2018-06-01 04:10] LABS: Calcium 8.4 mg/dL (8.4-10.2)
[2018-06-01 04:16] LABS: Creatine Kinase MB 4.3 ng/mL (0.0-4.0)
[2018-06-01 04:29] LABS: Basophils # (Auto) 0.1 K/mm3 (0.0-0.1); Basophils % (Auto) 1.1 % (0.0-1.8); Eosinophils # (Auto) 0.2 K/mm3 (0.0-0.4); Hematocrit 23.5 % (35.5-45.6); Hemoglobin 7.5 gm/dl (11.8-15.2); Lymphocytes # (Auto) 1.6 K/mm3 (1.2-5.4); Lymphocytes % (Auto) 17.5 % (13.4-35.0); Mean Corpuscular HGB Conc 32 % (32-34); Mean Corpuscular Volume 88 fl (84-94); Monocytes # (Auto) 1.1 K/mm3 (0.0-0.8); Monocytes % (Auto) 11.6 % (0.0-7.3); Platelet Count 207 K/mm3 (140-440); Red Blood Count 2.66 M/mm3 (3.65-5.03); Red Cell Distribution Width 18.7 % (13.2-15.2)
[2018-06-01] MEDS ORDERED: NACL 0.9% 100 ML IV PRN (05:42)
[2018-06-01] MEDS: MORPHINE IV PRN ×4 (07:06→21:40)
--- NOTE | 2018-06-01 11:20 | Consultation ---
History of Present Illness - History of Present Illness 28-year-old gentleman with medical history significant for hypertension ,liyah estive heart failure, end-stage renal disease on hemodialysis via a left arm AV fistula at [facility] admitted with complaints of shortness of breath and chest pressure described as 8/10 in intensity. Pain is episodic and intermittent denies any associated diaphoresis nausea or vomiting. He is on home oxygen 4 L at baseline. Denies any fevers chills orthopnea PND. Medications and Allergies Allergies Allergy/AdvReac Type Severity Reaction Status Date / Time heparin Allergy lowers Verified 04/21/18 14:26 platelets Home Medications Medication Instructions Recorded Confirmed Last Taken Type AtorvaSTATin [Lipitor] 40 mg PO QHS #30 tab 03/27/18 05/22/18 Unknown Rx Esomeprazole Magnesium [Nexium] 40 mg PO DAILY #30 capsule. 03/27/18 05/22/18 Unknown Rx Folic Acid/Vit B Comp W-C [Renal 1 cap PO QDAY #60 capsule 03/27/18 05/22/18 Unknown Rx Caps] cloNIDine [Catapres] 0.3 mg PO TID 30 Days tablet 03/27/18 05/22/18 Unknown Rx hydrALAZINE [Apresoline TAB] 100 mg PO TID #90 tab 03/27/18 05/22/18 Unknown Rx traZODone [Desyrel] 100 mg PO QHS #30 tablet 03/27/18 05/22/18 Unknown Rx NIFEdipine [Adalat cc] 90 mg PO BID 04/11/18 05/22/18 Unknown History Diclofenac Sodium [Voltaren] 100 gm TP Q6H #1 gel..gram. 04/21/18 05/22/18 Unknown Rx ALBUTEROL NEB's [Proventil 0.083% 2.5 mg IH Q4HRT PRN nebu 05/19/18 05/22/18 Unknown Rx NEBS] ALPRAZolam [Xanax TAB] 0.5 mg PO Q12HR #20 tablet 05/19/18 05/22/18 Unknown Rx Aspirin EC [Aspirin Enteric Coated 81 mg PO QDAY tablet 05/19/18 05/22/18 Unknown Rx TAB] AtorvaSTATin [Lipitor] 40 mg PO QHS tablet 05/19/18 05/22/18 Unknown Rx Carvedilol [Coreg] 25 mg PO BID tablet 05/19/18 05/22/18 Unknown Rx Active Meds: Active Medications Acetaminophen (Tylenol) 650 mg PO Q4H PRN PRN Reason: Pain MILD(1-3)/Fever >100.5/JENKINS Sodium Chloride (Nacl 0.9%) 100 mls @ 999 mls/hr IV APRIL PRN PRN Reason: Hypotension Morphine Sulfate (Morphine) 2 mg IV Q4H PRN PRN Reason: Pain, Moderate (4-6) Last Admin: 06/01/18 10:52 Dose: 2 mg Documented by: Ondansetron HCl (Zofran) 4 mg IV Q8H PRN PRN Reason: Nausea And Vomiting Sodium Chloride (Sodium Chloride Flush Syringe 10 Ml) 10 ml IV BID CHONG Sodium Chloride (Sodium Chloride Flush Syringe 10 Ml) 10 ml IV PRN PRN PRN Reason: LINE FLUSH Review of Systems Constitutional: weight loss Ears, nose, mouth and throat: no epistaxis, no bleeding gums Cardiovascular: chest pain, orthopnea, shortness of breath, dyspnea on exertion, high blood pressure, decreased exercise tolerance Respiratory: shortness of breath, congestion, no cough Gastrointestinal: no abdominal pain, no nausea, no vomiting Genitourinary Male: no dysuria, no hematuria Musculoskeletal: no hot joints Integumentary: no rash, no jaundice, no darkening of skin Neurological: no head injury, no transient paralysis Psychiatric: no anxiety, no memory loss Endocrine: no cold intolerance, no heat intolerance Hematologic/Lymphatic: no easy bruising Allergic/Immunologic: no urticaria, no allergic rhinitis Exam - Vital Signs Vital signs: Vital Signs Temp Pulse Resp BP Pulse Ox 98 F 76 16 173/79 92 05/31/18 20:46 05/31/18 20:46 05/31/18 20:46 05/31/18 20:46 05/31/18 20:46 - General Appearance General appearance: well-developed, well-nourished EENT: ATNC, PERRL Neck: Present: neck supple Respiratory: Rales, Decreased Breath Sounds Heart: regular, S1S2 Gastrointestinal: Present: normal, normoactive bowel sounds Integumentary: no rash, warm and dry Neurologic: no focal deficit, alert and oriented x3 Musculoskeletal: Present: deferred Psychiatric: mood/affect appropriate Results - Lab Results 06/01/18 03:42 06/01/18 03:42 Most recent lab results Calcium 8.4 mg/dL (8.4-10.2) 06/01/18 03:[address] which showed pericardial effusion and pleural effusions Assessment and Plan - Patient Problems (1) End stage renal disease Current Visit: No Status: Acute Plan to address problem: End-stage renal disease Access : Left arm AV fistula We'll initiate hemodialysis (2) Acute exacerbation of CHF (congestive heart failure) Current Visit: No Status: Acute Qualifiers: Heart failure type: combined systolic and diastolic Qualified Code(s): I50.43 - Acute on chronic combined systolic (congestive) and diastolic (congestive) heart failure Plan to address problem: Acute CHF exacerbation with systolic dysfunction Reviewed echocardiogram with reduced ejection fraction 35-40% Ultrafiltration with dialysis (3) Acute on chronic respiratory failure with hypoxemia Current Visit: No Status: Acute Plan to address problem: Acute on chronic respiratory failure with hypoxemia Currently on 4 L of oxygen I reviewed CT bilateral pleural effusions Plan for possible thoracentesis is as well Ultrafiltration :3L (4) Anemia Current Visit: No Status: Acute Qualifiers: Chronic kidney disease stage: on chronic dialysis Plan to address problem: Anemia secondary to chronic kidney disease Hb: 7. 5 g per DL We'll give epogen 20,000 units IV
[2018-06-01] MEDS ORDERED: PROCRIT IV STA (11:32)
[2018-06-01 11:42] LABS: Creatine Kinase MB 4.6 ng/mL (0.0-4.0)
--- NOTE | 2018-06-01 13:02 | Consultation ---
History of Present Illness Consult date: 06/01/18 Consult reason: chest pain History of present illness: Patient is a 28 year old male with multiple medical problems with frequent hospitalizations. He has end stage renal disease on dialysis. Patient also has history of dilated cardiomyopathy documented by cardiac cath 10 months ago that showed no significant coronary artery disease but a decreased left ventricular ejection fraction 15-20% by echocardiogram. Patient has chronic anemia, hyper tension, chronic hypoxic respiratory failure on home oxygen and chronic ascites with intermittent paracentesis. He returns with multiple complaints. He reports shortness of breath, chest pain, abdominal pain with nausea and vomiting. Cardiac consultation requested. Patient admits compliance with dialysis and home medications. Chest CTA scan reports a large pericardial effusion, large bilateral pleural effusion but no evidence of pulmonary embolism. 12 lead ECG shows sinus rhythm with non-specific Twave abnormalities. Medications and Allergies Allergies Allergy/AdvReac Type Severity Reaction Status Date / Time heparin Allergy lowers Verified 04/21/18 14:26 platelets Home Medications Medication Instructions Recorded Confirmed Last Taken Type AtorvaSTATin [Lipitor] 40 mg PO QHS #30 tab 03/27/18 05/22/18 Unknown Rx Esomeprazole Magnesium [Nexium] 40 mg PO DAILY #30 capsule. 03/27/18 05/22/18 Unknown Rx Folic Acid/Vit B Comp W-C [Renal 1 cap PO QDAY #60 capsule 03/27/18 05/22/18 Unknown Rx Caps] cloNIDine [Catapres] 0.3 mg PO TID 30 Days tablet 03/27/18 05/22/18 Unknown Rx hydrALAZINE [Apresoline TAB] 100 mg PO TID #90 tab 03/27/18 05/22/18 Unknown Rx traZODone [Desyrel] 100 mg PO QHS #30 tablet 03/27/18 05/22/18 Unknown Rx NIFEdipine [Adalat cc] 90 mg PO BID 04/11/18 05/22/18 Unknown History Diclofenac Sodium [Voltaren] 100 gm TP Q6H #1 gel..gram. 04/21/18 05/22/18 Unknown Rx ALBUTEROL NEB's [Proventil 0.083% 2.5 mg IH Q4HRT PRN nebu 05/19/18 05/22/18 Unknown Rx NEBS] ALPRAZolam [Xanax TAB] 0.5 mg PO Q12HR #20 tablet 05/19/18 05/22/18 Unknown Rx Aspirin EC [Aspirin Enteric Coated 81 mg PO QDAY tablet 05/19/18 05/22/18 Unknown Rx TAB] AtorvaSTATin [Lipitor] 40 mg PO QHS tablet 05/19/18 05/22/18 Unknown Rx Carvedilol [Coreg] 25 mg PO BID tablet 05/19/18 05/22/18 Unknown Rx Active Meds: Active Medications Acetaminophen (Tylenol) 650 mg PO Q4H PRN PRN Reason: Pain MILD(1-3)/Fever >100.5/JENKINS Sodium Chloride (Nacl 0.9%) 100 mls @ 999 mls/hr IV APRIL PRN PRN Reason: Hypotension Morphine Sulfate (Morphine) 2 mg IV Q4H PRN PRN Reason: Pain, Moderate (4-6) Last Admin: 06/01/18 10:52 Dose: 2 mg Documented by: Ondansetron HCl (Zofran) 4 mg IV Q8H PRN PRN Reason: Nausea And Vomiting Sodium Chloride (Sodium Chloride Flush Syringe 10 Ml) 10 ml IV BID CHONG Sodium Chloride (Sodium Chloride Flush Syringe 10 Ml) 10 ml IV PRN PRN PRN Reason: LINE FLUSH Physical Examination Vital Signs Temp Pulse Resp BP Pulse Ox 98 F 76 16 173/79 92 05/31/18 20:46 05/31/18 20:46 05/31/18 20:46 05/31/18 20:46 05/31/18 20:46 General appearance: no acute distress HEENT: Positive: PERRL Neck: Positive: trachea midline Cardiac: Positive: Reg Rate and Rhythm Lungs: Positive: Decreased Breath Sounds Results 06/01/18 03:42 06/01/18 03:42 Cardiac Enzymes 05/31/18 06/01/18 06/01/18 Range/Units 20:50 03:42 10:42 AST 30 (5-40) units/L CK-MB (CK-2) 4.3 H 4.6 H (0.0-4.0) ng/mL Coagulation 05/31/18 Range/Units 20:50 PT 15.4 H (12.2-14.9) Sec. INR 1.15 H (0.87-1.13) APTT 34.5 (24.2-36.6) Sec. Lipids 05/31/18 Range/Units 20:50 Triglycerides 57 (2-149) mg/dL Cholesterol 92 (50-199) mg/dL HDL Cholesterol 39 L (40-59) mg/dL Cholesterol/HDL Ratio 2.35 % CBC 05/31/18 06/01/18 Range/Units 20:50 03:42 WBC 9.9 9.4 (4.5-11.0) K/mm3 RBC 2.84 L 2.66 L (3.65-5.03) M/mm3 Hgb 8.1 L 7.5 L (11.8-15.2) gm/dl Hct 24.8 L 23.5 L (35.5-45.6) % Plt Count 232 207 (140-440) K/mm3 Lymph # 1.6 1.6 (1.2-5.4) K/mm3 [place] # 1.1 H 1.1 H (0.0-0.8) K/mm3 Eos # 0.2 0.2 (0.0-0.4) K/mm3 Baso # 0.1 0.1 (0.0-0.1) K/mm3 Comprehensive Metabolic Panel 05/31/18 06/01/18 Range/Units 20:50 03:42 Sodium 142 137 (137-145) mmol/L Potassium 4.2 4.5 (3.6-5.0) mmol/L Chloride 99.5 97.0 L (98-107) mmol/L Carbon Dioxide 27 28 (22-30) mmol/L BUN 37 H 40 H (9-20) mg/dL Creatinine 5.5 H 5.6 H (0.8-1.5) mg/dL Glucose 89 73 L (75-100) mg/dL Calcium 8.7 8.4 (8.4-10.2) mg/dL AST 30 (5-40) units/L ALT 12 (7-56) units/L Alkaline Phosphatase 98 (35-129) units/L Total Protein 8.7 H (6.3-8.2) g/dL Albumin 3.4 L (3.9-5) g/dL Assessment and Plan Volume overload Chest CTA scan reports a large pericardial effusion, large bilateral pleural effusion but no evidence of pulmonary embolism. ESRD on dialysis Hypertension Non-ischemic cardiomyopathy [facility] 07/2017: no significant coronary artery disease but a decreased left ventricular ejection fraction 15-20%. Chronic Ascities with intermittent paracentesis. Chronic anemia Chronic hypoxic respiratory failure on home oxygen Recommend: Dialysis for fluid management. We will obtain a limited echocardiogram for evaluation of pericardial effusion seen on CTA. Medical therapy for nonischemic cardiomyopathy and chronic systolic heart failure.
[2018-06-01] MEDS: SODIUM CHLORIDE FLUSH SYRINGE 10 ML IV SCH ×2 (18:40→21:49)
[2018-06-01] MEDS ORDERED: PROVENTIL IH PRN (21:04)
[2018-06-01] MEDS ORDERED: NON-FORMULARY (Diclofenac Sodium [Voltaren] 100 GM) TP SCH (21:15)
[2018-06-01 21:26] LABS: Iron 30 ug/dL (49-181); Total Iron Binding Capacity 163 mcg/dL (250-450)
[2018-06-01] MEDS: COREG PO SCH (21:47)
[2018-06-01] MEDS: DESYREL PO SCH (21:47)
[2018-06-01] MEDS: PROCARDIA XL PO SCH (21:55)
[2018-06-01] MEDS: XANAX PO SCH (23:25)
[2018-06-02] MEDS: MORPHINE IV PRN ×3 (03:08→20:25)
[2018-06-02] MEDS: APRESOLINE PO SCH ×3 (08:27→20:27)
[2018-06-02] MEDS: CATAPRES PO SCH ×6 (08:28→20:27)
[2018-06-02] MEDS: PROCARDIA XL PO SCH (08:30)
[2018-06-02] MEDS: Renal Caps PO SCH (09:42)
[2018-06-02] MEDS: PROTONIX PO SCH (09:43)
[2018-06-02] MEDS: HALFPRIN EC PO SCH (09:43)
[2018-06-02] MEDS: COREG PO SCH ×2 (09:44→23:16)
[2018-06-02] MEDS: XANAX PO SCH ×2 (10:38→23:15)
--- NOTE | 2018-06-02 12:36 | Progress Note ---
Assessment and Plan Volume overload Chest CTA scan reports a large pericardial effusion, large bilateral pleural effusion but no evidence of pulmonary embolism. ESRD on dialysis Hypertension Non-ischemic cardiomyopathy [facility] 07/2017: no significant coronary artery disease but a decreased left ventricular ejection fraction 15-20%. Chronic Ascities with intermittent paracentesis. Chronic anemia Chronic hypoxic respiratory failure on home oxygen Limited echocardiogram this admission reveals a large pericardial effusion with diastolic RV collapse suggesting early tamponade. There is a large pleural effusion. LVEF 50-55%. Patient was recommended to undergo a pericardiocentesis today but he declined and wishes to think about it. Dialysis for fluid management. Continue medical therapy for nonischemic cardiomyopathy and chronic systolic heart failure. Subjective Date of service: 06/02/18 Interval history: Patient is sitting up in bed. He reports no improvement with his breathing. No distress noted. Objective Vital Signs Temp Pulse Pulse Pulse Pulse Resp BP 06/02/18 12:03 98.2 F 56 L 18 124/64 06/02/18 10:00 06/02/18 09:10 98.0 F 74 20 145/82 06/02/18 05:10 98.0 F 69 20 115/61 06/02/18 02:00 77 06/01/18 23:35 98.0 F 77 20 154/86 06/01/18 22:00 92 H 92 H 92 H 20 06/01/18 21:47 75 150/74 06/01/18 21:31 06/01/18 19:59 98.0 F 72 18 150/74 06/01/18 18:17 61 06/01/18 18:03 98.0 F 70 20 172/77 06/01/18 14:50 98.3 F 64 16 165/86 06/01/18 14:30 64 165/86 06/01/18 14:15 65 142/75 06/01/18 14:00 63 153/82 06/01/18 13:45 62 131/70 06/01/18 13:30 66 159/85 06/01/18 13:16 60 156/86 06/01/18 13:00 100 H 144/86 06/01/18 12:45 64 151/110 Pulse Ox 06/02/18 12:03 94 06/02/18 10:00 96 06/02/18 09:10 99 06/02/18 05:10 99 06/02/18 02:00 06/01/18 23:35 100 06/01/18 22:00 96 06/01/18 21:47 06/01/18 21:31 95 06/01/18 19:59 98 06/01/18 18:17 06/01/18 18:03 99 06/01/18 14:50 06/01/18 14:30 06/01/18 14:15 06/01/18 14:00 06/01/18 13:45 06/01/18 13:30 06/01/18 13:16 06/01/18 13:00 06/01/18 12:45 - Physical Examination General: No Apparent Distress HEENT: Positive: PERRL Neck: Positive: trachea midline Cardiac: Positive: Reg Rate and Rhythm Lungs: Positive: Decreased Breath Sounds Neuro: Positive: Grossly Intact - Imaging and Cardiology EKG: image reviewed
--- NOTE | 2018-06-02 16:55 | Progress Note ---
Assessment and Plan - Patient Problems (1) Pericardial effusion Current Visit: No Status: Acute Plan to address problem: Needs pericardiocentesis Agreed for pericardiocentesis on Tuesday Initially refused Early Tamponade (2) Acute exacerbation of CHF (congestive heart failure) Current Visit: No Status: Acute Qualifiers: Heart failure type: combined systolic and diastolic Qualified Code(s): I50.43 - Acute on chronic combined systolic (congestive) and diastolic (congestive) heart failure Plan to address problem: Increased Ul,trafiltration (3) Pleural effusion Current Visit: Yes Status: Chronic Plan to address problem: Had recent Thoracentesis (4) ESRD needing dialysis Current Visit: Yes Status: Chronic Plan to address problem: Continue HD as per schedule (5) Elevated troponin I level Current Visit: Yes Status: Chronic Plan to address problem: Sec to Esrd (6) HTN (hypertension) Current Visit: Yes Status: Chronic Qualifiers: Hypertension type: essential hypertension Qualified Code(s): I10 - Essential (primary) hypertension Plan to address problem: Cont antihypertensives (7) HLD (hyperlipidemia) Current Visit: Yes Status: Chronic Qualifiers: Hyperlipidemia type: mixed hyperlipidemia Qualified Code(s): E78.2 - Mixed hyperlipidemia Plan to address problem: Cont statins (8) GERD (gastroesophageal reflux disease) Current Visit: Yes Status: Chronic Plan to address problem: Cont PPI's (9) DVT prophylaxis Current Visit: No Status: Acute Plan to address problem: On Heparin and GI prophylaxis Subjective Date of service: 06/02/18 Principal diagnosis: Large pericardial effusion ESRD Pleural effusion Interval history: Sx better Objective - Constitutional Vitals: Vital Signs - 12hr 06/02/18 06/02/18 06/02/18 05:10 09:10 10:00 Temperature 98.0 F 98.0 F Pulse Rate 69 74 Respiratory 20 20 Rate Blood Pressure 115/61 145/82 O2 Sat by Pulse 99 99 96 Oximetry 06/02/18 06/02/18 12:03 16:20 Temperature 98.2 F 97.6 F Pulse Rate 56 L 61 Respiratory 18 18 Rate Blood Pressure 124/64 126/69 O2 Sat by Pulse 94 96 Oximetry General appearance: Present: no acute distress, well-nourished - EENT Eyes: PERRL, EOM intact ENT: hearing intact, clear oral mucosa Ears: bilateral: normal - Neck Neck: supple, normal ROM - Respiratory Respiratory effort: normal Respiratory: bilateral: CTA - Breasts Breasts: normal - Cardiovascular Heart rate: 78 Rhythm: regular Heart Sounds: Present: S1 & S2. Absent: gallop, rub Extremities: no ischemia, pulses intact, No edema, normal color, Full ROM - Gastrointestinal General gastrointestinal: Present: soft, non-tender, non-distended, normal bowel sounds - Genitourinary Male genitourinary: normal - Integumentary Integumentary: clear, warm, dry - Musculoskeletal Musculoskeletal: 1, strength equal bilaterally - Neurologic Neurologic: moves all extremities - Psychiatric Psychiatric: memory intact, appropriate mood/affect, intact judgment & insight - Allied health notes Allied health notes reviewed: nursing, case management - Labs CBC & Chem 7: 06/01/18 03:42 06/01/18 03:42 Labs: Abnormal lab results 06/01/18 Range/Units 10:24 Iron 30 L (49-181) ug/dL TIBC 163 L (250-450) mcg/dL ECHO Large pericardial effusion With diastolic RV collapse Earlj Tamponade EF 50 to 55 percent
--- NOTE | 2018-06-02 17:36 | Progress Note ---
Assessment and Plan Impression * End-stage renal disease on maintenance hemodialysis * Large pericardial effusion w/ early tamponade physiology * Recurrent pleural effusion * Cardiomyopathy EF 15% * Noncompliance * Hypertension * Anemia secondary to ESRD Recommendations * Hemodialysis tomorrow - will lower Qb and cautious UF in light of pericardial effusion * Note plans for pericardiocentesis on Tuesday * Epogen TIW prn * Renal diet * Binders with diet * No IV, BP of any puncture in his access arm * Adjust pain medications * Compliance with dialysis addressed Subjective Date of service: 06/02/18 Principal diagnosis: Large pericardial effusion ESRD Pleural effusion Interval history: Patient has no complaint Objective - Vital Signs Vital signs: Vital Signs - 12hr 06/02/18 06/02/18 06/02/18 09:10 10:00 12:03 Temperature 98.0 F 98.2 F Pulse Rate 74 56 L Respiratory 20 18 Rate Blood Pressure 145/82 124/64 O2 Sat by Pulse 99 96 94 Oximetry 06/02/18 16:20 Temperature 97.6 F Pulse Rate 61 Respiratory 18 Rate Blood Pressure 126/69 O2 Sat by Pulse 96 Oximetry - General Appearance General appearance: chronically ill EENT: ATNC Respiratory: Present: Decreased Breath Sounds (at bases) Cardiology: regular, S1S2 Gastrointestinal: normal, no tenderness, no distended Integumentary: warm and dry Neurologic: no focal deficit Musculoskeletal: other (no edema) Psychiatric: cooperative - Lab 06/01/18 03:42 06/01/18 03:42 Most recent lab results Calcium 8.4 mg/dL (8.4-10.2) 06/01/18 03:42 Medications & Allergies - Medications Allergies/Adverse Reactions: Allergies heparin Allergy (Verified 04/21/18 14:26) lowers platelets Home Medications: Home Medications Medication Instructions Recorded Confirmed Last Taken Type AtorvaSTATin [Lipitor] 40 mg PO QHS #30 tab 03/27/18 06/01/18 05/31/18 Rx Esomeprazole Magnesium [Nexium] 40 mg PO DAILY #30 capsule. 03/27/18 06/01/18 05/31/18 Rx Folic Acid/Vit B Comp W-C [Renal 1 cap PO QDAY #60 capsule 03/27/18 06/01/18 05/31/18 Rx Caps] cloNIDine [Catapres] 0.3 mg PO TID 30 Days tablet 0106/01/18 05/31/18 Rx hydrALAZINE [Apresoline TAB] 100 mg PO TID #90 tab 03/27/18 06/01/18 05/31/18 Rx traZODone [Desyrel] 100 mg PO QHS #30 tablet 03/27/18 06/01/18 05/30/18 Rx NIFEdipine [Adalat cc] 90 mg PO BID 04/11/18 06/01/18 Unknown History Diclofenac Sodium [Voltaren] 100 gm TP Q6H #1 gel..gram. 04/21/18 06/01/18 05/31/18 Rx ALBUTEROL NEB's [Proventil 0.083% 2.5 mg IH Q4HRT PRN nebu 05/19/18 06/01/18 05/31/18 Rx NEBS] ALPRAZolam [Xanax TAB] 0.5 mg PO Q12HR #20 tablet 05/19/18 06/01/18 05/31/18 Rx Aspirin EC [Aspirin Enteric Coated 81 mg PO QDAY tablet 05/19/18 06/01/1805/13 Rx TAB] AtorvaSTATin [Lipitor] 40 mg PO QHS tablet 05/19/18 06/01/18 05/31/18 Rx Carvedilol [Coreg] 25 mg PO BID tablet 05/19/18 06/01/18 05/31/18 Rx Active Medications: Generic Name Dose Route Start Last Admin Trade Name Freq PRN Reason Stop Dose Admin Acetaminophen 650 mg 06/01/18 03:09 Tylenol PO Q4H PRN Pain MILD(1-3)/Fever >100.5/JENKINS Albuterol 2.5 mg 06/01/18 21:04 Proventil IH Q4HRT PRN Shortness Of Breath Alprazolam 0.5 mg 06/01/18 22:00 06/02/18 10:38 Xanax PO 0.5 mg Q12HR CHONG Administration Aspirin 81 mg 06/02/18 10:00 06/02/18 09:43 Halfprin Ec PO 81 mg QDAY CHONG Administration Atorvastatin Calcium 40 mg 06/01/18 22:00 06/01/18 21:47 Lipitor PO 40 mg QHS CHONG Administration Carvedilol 25 mg 06/01/18 22:00 06/02/18 09:44 Coreg PO 25 mg BID [facility] Administration Clonidine HCl 0.1 mg 06/02/18 08:00 06/02/18 15:32 Catapres PO Not Given TID [facility] Clonidine HCl 0.2 mg 06/02/18 08:00 06/02/18 14:28 Catapres PO Not Given TID [facility] Hydralazine HCl 100 mg 06/02/18 08:00 06/02/18 14:27 Apresoline PO Not Given TID [facility] Sodium Chloride 100 mls @ 999 mls/hr 06/01/18 05:42 Nacl 0.9% IV APRIL PRN Hypotension Lorazepam 1 mg 06/02/18 17:04 Ativan IV Q6H PRN Anxiety Miscellaneous Medication 100 gm 06/01/18 21:15 Diclofenac Sodium [Voltaren] TP Q6H [facility] Morphine Sulfate 2 mg 06/01/18 03:09 06/02/18 15:24 Morphine IV 2 mg Q4H PRN Administration Pain, Moderate (4-6) Multivit/Ca Carb/B Cmplx/FA/Prenat 1 cap 06/02/18 10:00 06/02/18 09:42 Renal Caps PO 1 cap QDAY [facility] Administration Nifedipine 90 mg 06/01/18 22:00 06/02/18 08:30 Procardia Xl PO Not Given BID@0800,1700 [facility] Ondansetron HCl 4 mg 06/01/18 03:09 Zofran IV Q8H PRN Nausea And Vomiting Pantoprazole Sodium 40 mg 06/02/18 10:00 06/02/18 09:43 Protonix PO 40 mg DAILY [facility] Administration Sodium Chloride 10 ml 06/01/18 10:00 06/01/18 21:49 Sodium Chloride Flush Syringe 10 Ml IV 10 ml BID [facility] Administration Sodium Chloride 10 ml 06/01/18 03:09 Sodium Chloride Flush Syringe 10 Ml IV PRN PRN LINE FLUSH Trazodone HCl 100 mg 06/01/18 22:00 06/01/18 21:47 Desyrel PO Not Given QHS [facility]
[2018-06-02] MEDS ORDERED: NACL 0.9% 100 ML IV PRN ×2 (19:50→19:55)
[2018-06-02] MEDS: ATIVAN IV PRN (23:15)
[2018-06-02] MEDS: DESYREL PO SCH (23:16)
[2018-06-02] MEDS: SODIUM CHLORIDE FLUSH SYRINGE 10 ML IV SCH (23:17)
[2018-06-03] MEDS: CATAPRES PO SCH ×7 (08:11→21:15)
[2018-06-03] MEDS: PROCARDIA XL PO SCH ×2 (08:55→16:39)
[2018-06-03] MEDS: APRESOLINE PO SCH ×3 (08:56→21:14)
[2018-06-03] MEDS: HALFPRIN EC PO SCH (09:00)
[2018-06-03] MEDS: Renal Caps PO SCH (09:00)
[2018-06-03] MEDS: PROTONIX PO SCH (09:00)
[2018-06-03] MEDS: XANAX PO SCH ×2 (09:00→21:19)
[2018-06-03] MEDS: MORPHINE IV PRN ×4 (09:05→21:15)
--- NOTE | 2018-06-03 09:20 | Progress Note ---
Assessment and Plan Assessment and plan: -- Pericardial effusion Evaluated by cardiology, recommend pericardiocentesis Initially patient refused, later Agreed for pericardiocentesis on Tuesday Early Tamponade -- Acute exacerbation of CHF (congestive heart failure) Increased Ul,trafiltration, continue current management -- Pleural effusion Had recent Thoracentesis Supportive care -- ESRD needing dialysis on hemodialysis Continue HD as per schedule, nephrology following -- Elevated troponin I level Nonspecific due to to Esrd, cardiology following --HTN (hypertension) Moderate control, continue current antihypertensives When necessary medications -- HLD (hyperlipidemia) Cont statins, low-cholesterol diet --GERD (gastroesophageal reflux disease) Cont PPI's -- DVT prophylaxis On Heparin and high-dose GI prophylaxis Protonix, Plan of care reviewed with the patient History Interval history: Assessment and exam and medical records reviewed Receiving hemodialysis today No new complaints Vital signs reviewed Alert awake oriented 3 not in acute distress Hospitalist Physical - Constitutional Vitals: Temp Pulse Resp BP Pulse Ox 98.0 F 69 20 133/74 90 06/03/18 05:20 06/03/18 08:57 06/03/18 05:20 06/03/18 08:57 06/03/18 05:20 General appearance: Present: no acute distress, well-nourished - EENT Eyes: Present: PERRL, EOM intact - Neck Neck: Present: normal ROM - Respiratory Respiratory effort: normal Respiratory: bilateral: diminished, rhonchi, negative: rales, wheezing - Cardiovascular Rhythm: regular Heart Sounds: Present: S1 & S2 (diminished) - Extremities Extremities: no ischemia Extremity abnormal: edema - Abdominal General gastrointestinal: soft, non-tender, non-distended, normal bowel sounds - Integumentary Integumentary: Present: clear, warm - Psychiatric Psychiatric: appropriate mood/affect, cooperative - Neurologic Neurologic: moves all extremities Results - Labs CBC & Chem 7: 06/01/18 03:42 06/01/18 03:42 Labs: Laboratory Last Values WBC 9.4 K/mm3 (4.5-11.0) 06/01/18 03:42 RBC 2.66 M/mm3 (3.65-5.03) L 06/01/18 03:42 Hgb 7.5 gm/dl (11.8-15.2) L 06/01/18 03:42 Hct 23.5 % (35.5-45.6) L 06/01/18 03:42 MCV 88 fl (84-94) 06/01/18 03:42 MCH 28 pg (28-32) 06/01/18 03:42 MCHC 32 % (32-34) 06/01/18 03:42 RDW 18.7 % (13.2-15.2) H 06/01/18 03:42 Plt Count 207 K/mm3 (140-440) 06/01/18 03:42 Lymph % (Auto) 17.5 % (13.4-35.0) 06/01/18 03:42 [place] % (Auto) 11.6 % (0.0-7.3) H 06/01/18 03:42 Eos % (Auto) 2.0 % (0.0-4.3) 06/01/18 03:42 Baso % (Auto) 1.1 % (0.0-1.8) 06/01/18 03:42 Lymph # 1.6 K/mm3 (1.2-5.4) 06/01/18 03:42 [place] # 1.1 K/mm3 (0.0-0.8) H 06/01/18 03:42 Eos # 0.2 K/mm3 (0.0-0.4) 06/01/18 03:42 Baso # 0.1 K/mm3 (0.0-0.1) 06/01/18 03:42 Seg Neutrophils % 67.8 % (40.0-70.0) 06/01/18 03:42 Seg Neutrophils # 6.4 K/mm3 (1.8-7.7) 06/01/18 03:42 PT 15.4 Sec. (12.2-14.9) H 05/31/18 20:50 INR 1.15 (0.87-1.13) H 05/31/18 20:50 APTT 34.5 Sec. (24.2-36.6) 05/31/18 20:50 Sodium 137 mmol/L (137-145) 06/01/18 03:42 Potassium 4.5 mmol/L (3.6-5.0) 06/01/18 03:42 Chloride 97.0 mmol/L (98-107) L 06/01/18 03:42 Carbon Dioxide 28 mmol/L (22-30) 06/01/18 03:42 Anion Gap 17 mmol/L 06/01/18 03:42 BUN 40 mg/dL (9-20) H 06/01/18 03:42 Creatinine 5.6 mg/dL (0.8-1.5) H 06/01/18 03:42 Estimated GFR 12 ml/min 06/01/18 03:42 BUN/Creatinine Ratio 7 % 06/01/18 03:42 Glucose 73 mg/dL (75-100) L 06/01/18 03:42 Calcium 8.4 mg/dL (8.4-10.2) 06/01/18 03:42 Iron 30 ug/dL (49-181) L 06/01/18 10:24 TIBC 163 mcg/dL (250-450) L 06/01/18 10:24 Total Bilirubin 0.40 mg/dL (0.1-1.2) 05/31/18 20:50 AST 30 units/L (5-40) 05/31/18 20:50 ALT 12 units/L (7-56) 05/31/18 20:50 Alkaline Phosphatase 98 units/L (35-129) 05/31/18 20:50 Total Creatine Kinase 42 units/L (55-170) L 06/01/18 10:42 CK-MB (CK-2) 4.6 ng/mL (0.0-4.0) H 06/01/18 10:42 CK-MB (CK-2) Rel Index 10.9 (0-4) H 06/01/18 10:42 Troponin T 0.365 ng/mL (0.00-0.029) H* 06/01/18 10:42 Total Protein 8.7 g/dL (6.3-8.2) H 05/31/18 20:50 Albumin 3.4 g/dL (3.9-5) L 05/31/18 20:50 Albumin/Globulin Ratio 0.6 % 05/31/18 20:50 Triglycerides 57 mg/dL (2-149) 05/31/18 20:50 Cholesterol 92 mg/dL (50-199) 05/31/18 20:50 LDL Cholesterol Direct 41 mg/dL (50-130) L 05/31/18 20:50 HDL Cholesterol 39 mg/dL (40-59) L 05/31/18 20:50 Cholesterol/HDL Ratio 2.35 % 05/31/18 20:50 Active Medications - Current Medications Current Medications: Generic Name Dose Route Start Last Admin Trade Name Freq PRN Reason Stop Dose Admin Acetaminophen 650 mg 06/01/18 03:09 Tylenol PO Q4H PRN Pain MILD(1-3)/Fever >100.5/JENKINS Albuterol 2.5 mg 06/01/18 21:04 Proventil IH Q4HRT PRN Shortness Of Breath Alprazolam 0.5 mg 06/01/18 22:00 06/03/18 09:00 Xanax PO 0.5 mg Q12HR CHONG Administration Aspirin 81 mg 06/02/18 10:00 06/03/18 09:00 Halfprin Ec PO 81 mg QDAY CHONG Administration Atorvastatin Calcium 40 mg 06/01/18 22:00 06/02/18 23:15 Lipitor PO 40 mg QHS CHONG Administration Carvedilol 25 mg 06/01/18 22:00 06/02/18 23:16 Coreg PO Not Given BID CHONG Clonidine HCl 0.1 mg 06/02/18 08:00 06/03/18 08:56 Catapres PO 0.1 mg TID CHONG Administration Clonidine HCl 0.2 mg 06/02/18 08:00 06/03/18 08:57 Catapres PO 0.2 mg TID CHONG Administration Hydralazine HCl 100 mg 06/02/18 08:00 06/03/18 08:56 Apresoline PO 100 mg TID CHONG Administration Sodium Chloride 100 mls @ 999 mls/hr 06/01/18 05:42 Nacl 0.9% IV APRIL PRN Hypotension Lorazepam 1 mg 06/02/18 17:04 06/02/18 23:15 Ativan IV 1 mg Q6H PRN Administration Anxiety Miscellaneous Medication 100 gm 06/01/18 21:15 Diclofenac Sodium [Voltaren] TP Q6H CHONG Morphine Sulfate 2 mg 06/01/18 03:09 06/03/18 09:05 Morphine IV 2 mg Q4H PRN Administration Pain, Moderate (4-6) Multivit/Ca Carb/B Cmplx/FA/Prenat 1 cap 06/02/18 10:00 06/03/18 09:00 Renal Caps PO 1 cap QDAY CHONG Administration Nifedipine 90 mg 06/01/18 22:00 06/03/18 08:55 Procardia Xl PO 90 mg BID@0800,1700 CHONG Administration Ondansetron HCl 4 mg 06/01/18 03:09 Zofran IV Q8H PRN Nausea And Vomiting Pantoprazole Sodium 40 mg 06/02/18 10:00 06/03/18 09:00 Protonix PO 40 mg DAILY CHONG Administration Sodium Chloride 10 ml 06/01/18 10:00 06/02/18 23:17 Sodium Chloride Flush Syringe 10 Ml IV 10 ml BID CHONG Administration Sodium Chloride 10 ml 06/01/18 03:09 Sodium Chloride Flush Syringe 10 Ml IV PRN PRN LINE FLUSH Trazodone HCl 100 mg 06/01/18 22:00 06/02/18 23:16 Desyrel PO Not Given QHS CHONG
[2018-06-03] MEDS ORDERED: NACL 0.9% 100 ML IV PRN (10:43)
--- NOTE | 2018-06-03 11:22 | Progress Note ---
Assessment and Plan 1. Large pericardial effusion with echocardiographic evidence of any cardiac tamponade patient however remains hemodynamically stable 2. End-stage renal disease 3. Chronic combined systolic and diastolic heart failure 4. Dilated cardiomyopathy 5. Anemia of chronic disease Plan. Remains hemodynamically stable currently undergoing dialysis has refused pericardiocentesis will continue to monitor. Subjective Date of service: 06/03/18 Principal diagnosis: Large pericardial effusion ESRD Pleural effusion Interval history: No cardiac symptoms Objective Vital Signs Temp Pulse Resp Resp BP Pulse Ox 06/03/18 11:00 73 124/67 06/03/18 10:45 66 122/67 06/03/18 10:30 69 119/61 06/03/18 10:15 67 113/66 06/03/18 10:00 68 137/68 06/03/18 09:45 75 154/90 06/03/18 09:40 69 142/80 06/03/18 09:20 98.0 F 69 16 142/80 06/03/18 08:57 69 133/74 06/03/18 08:56 69 133/74 06/03/18 05:20 98.0 F 69 20 133/74 90 06/03/18 02:00 64 06/02/18 23:16 65 102/55 06/02/18 23:02 97.6 F 66 20 102/55 96 06/02/18 22:00 20 98 06/02/18 20:27 98 H 136/74 06/02/18 20:26 98 H 136/74 06/02/18 19:41 98.0 F 68 20 136/74 94 06/02/18 16:20 97.6 F 61 18 126/69 96 06/02/18 12:03 98.2 F 56 L 18 124/64 94 - Physical Examination General: No Apparent Distress HEENT: Positive: PERRL Neck: Positive: trachea midline Cardiac: Positive: Regular Rate, S1/S2, PMI, Laterally Displaced. Negative: S3, S4 Lungs: Positive: clear to auscultation. Negative: No Wheeze, Rales, Rhonchi Neuro: Positive: Grossly Intact Abdomen: Positive: Unremarkable, Soft Extremities: Absent: edema - Imaging and Cardiology EKG: image reviewed
[2018-06-03] MEDS ORDERED: NACL 0.9 (PRIMING MACHINE ONLY DIALYSIS) MC ONE (11:47)
[2018-06-03] MEDS: PROCRIT IV PRN (11:58)
--- NOTE | 2018-06-03 14:56 | Progress Note ---
Assessment and Plan Impression * End-stage renal disease on maintenance hemodialysis * Large pericardial effusion w/ early tamponade physiology * Recurrent pleural effusion * Cardiomyopathy EF 15% * Noncompliance * Hypertension * Anemia secondary to ESRD Recommendations * Hemodialysis today w/ low Qb and cautious UF in light of pericardial effusion * Note plans for pericardiocentesis on Tuesday * Epogen TIW prn * Renal diet * Binders with diet * No IV, BP of any puncture in his access arm Subjective Date of service: 06/03/18 Principal diagnosis: Large pericardial effusion ESRD Pleural effusion Interval history: Patient has no complaint. Seen upon completion of dialysis. Objective - Vital Signs Vital signs: Vital Signs - 12hr 06/03/18 06/03/18 06/03/18 05:20 08:56 08:57 Temperature 98.0 F Pulse Rate 69 69 69 Respiratory 20 Rate Blood Pressure 133/74 133/74 133/74 O2 Sat by Pulse 90 Oximetry 06/03/18 06/03/18 06/03/18 09:20 09:40 09:45 Temperature 98.0 F Pulse Rate 69 69 75 Respiratory 16 Rate Blood Pressure 142/80 142/80 154/90 O2 Sat by Pulse Oximetry 06/03/18 06/03/18 06/03/18 10:00 10:15 10:30 Temperature Pulse Rate 68 67 69 Respiratory Rate Blood Pressure 137/68 113/66 119/61 O2 Sat by Pulse Oximetry 06/03/18 06/03/18 06/03/18 10:45 11:00 11:15 Temperature Pulse Rate 66 73 60 Respiratory Rate Blood Pressure 122/67 124/67 123/61 O2 Sat by Pulse Oximetry 06/03/18 06/03/18 06/03/18 11:30 11:45 12:00 Temperature Pulse Rate 63 51 L 65 Respiratory Rate Blood Pressure 130/69 117/66 138/83 O2 Sat by Pulse Oximetry 06/03/18 06/03/18 12:15 12:30 Temperature Pulse Rate 61 67 Respiratory Rate Blood Pressure 139/72 132/93 O2 Sat by Pulse Oximetry - General Appearance General appearance: chronically ill EENT: ATNC Respiratory: Present: Decreased Breath Sounds Cardiology: regular, S1S2 Gastrointestinal: normal, no tenderness, no distended Musculoskeletal: other (no edema) Psychiatric: cooperative - Lab 06/01/18 03:42 06/01/18 03:42 Most recent lab results Calcium 8.4 mg/dL (8.4-10.2) 06/01/18 03:42 Medications & Allergies - Medications Allergies/Adverse Reactions: Allergies heparin Allergy (Verified 04/21/18 14:26) lowers platelets Home Medications: Home Medications Medication Instructions Recorded Confirmed Last Taken Type AtorvaSTATin [Lipitor] 40 mg PO QHS #30 tab 03/27/18 06/01/18 05/31/18 Rx Esomeprazole Magnesium [Nexium] 40 mg PO DAILY #30 capsule. 03/27/18 06/01/18 05/31/18 Rx Folic Acid/Vit B Comp W-C [Renal 1 cap PO QDAY #60 capsule 03/27/18 06/01/18 05/31/18 Rx Caps] cloNIDine [Catapres] 0.3 mg PO TID 30 Days tablet 03/27/18 06/01/18 05/31/18 Rx hydrALAZINE [Apresoline TAB] 100 mg PO TID #90 tab 03/27/18 06/01/18 05/31/18 Rx traZODone [Desyrel] 100 mg PO QHS #30 tablet 03/27/18 06/01/18 05/30/18 Rx NIFEdipine [Adalat cc] 90 mg PO BID 04/11/18 06/01/18 Unknown History Diclofenac Sodium [Voltaren] 100 gm TP Q6H #1 gel..gram. 04/21/18 06/01/18 05/31/18 Rx ALBUTEROL NEB's [Proventil 0.083% 2.5 mg IH Q4HRT PRN nebu 05/19/18 06/01/18 05/31/18 Rx NEBS] ALPRAZolam [Xanax TAB] 0.5 mg PO Q12HR #20 tablet 05/19/18 06/01/18 05/31/18 Rx Aspirin EC [Aspirin Enteric Coated 81 mg PO QDAY tablet 05/19/18 06/01/18 05/31/18 Rx TAB] AtorvaSTATin [Lipitor] 40 mg PO QHS tablet 05/19/18 06/01/18 05/31/18 Rx Carvedilol [Coreg] 25 mg PO BID tablet 05/19/18 06/01/18 05/31/18 Rx Active Medications: Generic Name Dose Route Start Last Admin Trade Name Freq PRN Reason Stop Dose Admin Acetaminophen 650 mg 06/01/18 03:09 Tylenol PO Q4H PRN Pain MILD(1-3)/Fever >100.5/JENKINS Albuterol 2.5 mg 06/01/18 21:04 Proventil IH Q4HRT PRN Shortness Of Breath Alprazolam 0.5 mg 06/01/18 22:00 06/03/18 09:00 Xanax PO 0.5 mg Q12HR CHONG Administration Aspirin 81 mg 06/02/18 10:00 06/03/18 09:00 Halfprin Ec PO 81 mg QDAY CHONG Administration Atorvastatin Calcium 40 mg 06/01/18 22:00 06/02/18 23:15 Lipitor PO 40 mg QHS CHONG Administration Carvedilol 25 mg 06/01/18 22:00 06/02/18 23:16 Coreg PO Not Given BID CHONG Clonidine HCl 0.1 mg 06/02/18 08:00 06/03/18 08:56 Catapres PO 0.1 mg TID CHONG Administration Clonidine HCl 0.2 mg 06/02/18 08:00 06/03/18 08:57 Catapres PO 0.2 mg TID CHONG Administration Epoetin Davis 20,000 unit 06/03/18 10:43 06/03/18 11:58 Procrit IV 20,000 unit APRIL PRN Administration hemodialysis Hydralazine HCl 100 mg 06/02/18 08:00 06/03/18 08:56 Apresoline PO 100 mg TID CHONG Administration Sodium Chloride 100 mls @ 999 mls/hr 06/01/18 05:42 Nacl 0.9% IV APRIL PRN Hypotension Sodium Chloride 100 mls @ 999 mls/hr 06/03/18 10:43 Nacl 0.9% IV APRIL PRN Hypotension Lorazepam 1 mg 06/02/18 17:04 06/02/18 23:15 Ativan IV 1 mg Q6H PRN Administration Anxiety Miscellaneous Medication 100 gm 06/01/18 21:15 Diclofenac Sodium [Voltaren] TP Q6H CHONG Morphine Sulfate 2 mg 06/01/18 03:09 06/03/18 12:04 Morphine IV 2 mg Q4H PRN Administration Pain, Moderate (4-6) Multivit/Ca Carb/B Cmplx/FA/Prenat 1 cap 06/02/18 10:00 06/03/18 09:00 Renal Caps PO 1 cap QDAY CHONG Administration Nifedipine 90 mg 06/01/18 22:00 06/03/18 08:55 Procardia Xl PO 90 mg BID@0800,1700 CHONG Administration Ondansetron HCl 4 mg 06/01/18 03:09 Zofran IV Q8H PRN Nausea And Vomiting Pantoprazole Sodium 40 mg 06/02/18 10:00 06/03/18 09:00 Protonix PO 40 mg DAILY CHONG Administration Sodium Chloride 10 ml 06/01/18 10:00 06/02/18 23:17 Sodium Chloride Flush Syringe 10 Ml IV 10 ml BID CHONG Administration Sodium Chloride 10 ml 06/01/18 03:09 Sodium Chloride Flush Syringe 10 Ml IV PRN PRN LINE FLUSH Trazodone HCl 100 mg 06/01/18 22:00 06/02/18 23:16 Desyrel PO Not Given QHS CHONG
[2018-06-03] MEDS: COREG PO SCH ×2 (16:32→21:19)
[2018-06-03] MEDS: SODIUM CHLORIDE FLUSH SYRINGE 10 ML IV SCH ×2 (16:39→21:12)
[2018-06-03] MEDS: DESYREL PO SCH (21:18)
[2018-06-04] MEDS: ATIVAN IV PRN (00:07)
[2018-06-04] MEDS: MORPHINE IV PRN ×4 (06:21→20:38)
[2018-06-04 06:47] LABS: Basophils # (Auto) 0.1 K/mm3 (0.0-0.1); Basophils % (Auto) 1.3 % (0.0-1.8); Eosinophils # (Auto) 0.2 K/mm3 (0.0-0.4); Eosinophils % (Auto) 2.7 % (0.0-4.3); Hematocrit 25.2 % (35.5-45.6); Lymphocytes # (Auto) 1.1 K/mm3 (1.2-5.4); Lymphocytes % (Auto) 15.2 % (13.4-35.0); Mean Corpuscular HGB Conc 32 % (32-34); Mean Corpuscular Volume 87 fl (84-94); Monocytes # (Auto) 0.6 K/mm3 (0.0-0.8); Monocytes % (Auto) 9.3 % (0.0-7.3); Platelet Count 285 K/mm3 (140-440); Red Blood Count 2.89 M/mm3 (3.65-5.03); Red Cell Distribution Width 19.2 % (13.2-15.2)
[2018-06-04 07:19] LABS: Calcium 8.8 mg/dL (8.4-10.2)
[2018-06-04] MEDS: APRESOLINE PO SCH ×3 (08:56→20:37)
[2018-06-04] MEDS: CATAPRES PO SCH ×6 (08:56→20:37)
[2018-06-04] MEDS: PROTONIX PO SCH (10:10)
[2018-06-04] MEDS: Renal Caps PO SCH (10:10)
[2018-06-04] MEDS: HALFPRIN EC PO SCH (10:10)
[2018-06-04] MEDS: COREG PO SCH (10:14)
[2018-06-04] MEDS: PROCARDIA XL PO SCH (10:14)
[2018-06-04] MEDS: SODIUM CHLORIDE FLUSH SYRINGE 10 ML IV SCH (10:15)
[2018-06-04] MEDS: XANAX PO SCH (10:15)
--- NOTE | 2018-06-04 12:01 | Progress Note ---
Assessment and Plan Assessment and plan: -- Acute exacerbation of CHF (congestive heart failure) Symptoms slightly improved, continue current anti-failure medications -- Pericardial effusion Evaluated by cardiology, pericardiocentesis tomorrow Early Tamponade -- Pleural effusion Had recent Thoracentesis Supportive care -- ESRD needing dialysis on hemodialysis Continue HD as per schedule, nephrology following -- Elevated troponin I level Nonspecific due to to Esrd, cardiology following --HTN (hypertension) Moderate control, continue current antihypertensives When necessary medications -- HLD (hyperlipidemia) Cont statins, low-cholesterol diet --GERD (gastroesophageal reflux disease) Cont PPI's -- DVT prophylaxis On Heparin and high-dose GI prophylaxis Protonix, Plan of care reviewed with the patient History Interval history: Patient seen and examined medical records reviewed No new events reported by the nursing staff Patient is scheduled for pericardiocentesis tomorrow Denies chest pain or shortness of breath Vital signs reviewed Hospitalist Physical - Constitutional Vitals: Temp Pulse Resp BP Pulse Ox 98.3 F 69 19 110/53 94 06/04/18 08:05 06/04/18 10:14 06/04/18 10:10 06/04/18 10:14 06/04/18 08:32 General appearance: Present: no acute distress, well-nourished - EENT Eyes: Present: PERRL, EOM intact - Neck Neck: Present: supple, normal ROM - Respiratory Respiratory effort: normal Respiratory: bilateral: diminished, rales, negative: rhonchi, wheezing - Cardiovascular Rhythm: regular Heart Sounds: Present: S1 & S2 - Extremities Extremities: no ischemia, pulses intact Extremity abnormal: edema - Abdominal General gastrointestinal: soft, non-tender, non-distended, normal bowel sounds - Integumentary Integumentary: Present: clear, warm - Psychiatric Psychiatric: appropriate mood/affect, cooperative - Neurologic Neurologic: moves all extremities Results - Labs CBC & Chem 7: 06/04/18 06:02 06/04/18 06:02 Labs: Laboratory Last Values WBC 7.0 K/mm3 (4.5-11.0) 06/04/18 06:02 RBC 2.89 M/mm3 (3.65-5.03) L 06/04/18 06:02 Hgb 8.0 gm/dl (11.8-15.2) L 06/04/18 06:02 Hct 25.2 % (35.5-45.6) L 06/04/18 06:02 MCV 87 fl (84-94) 06/04/18 06:02 MCH 28 pg (28-32) 06/04/18 06:02 MCHC 32 % (32-34) 06/04/18 06:02 RDW 19.2 % (13.2-15.2) H 06/04/18 06:02 Plt Count 285 K/mm3 (140-440) 06/04/18 06:02 Lymph % (Auto) 15.2 % (13.4-35.0) 06/04/18 06:02 [place] % (Auto) 9.3 % (0.0-7.3) H 06/04/18 06:02 Eos % (Auto) 2.7 % (0.0-4.3) 06/04/18 06:02 Baso % (Auto) 1.3 % (0.0-1.8) 06/04/18 06:02 Lymph # 1.1 K/mm3 (1.2-5.4) L 06/04/18 06:02 [place] # 0.6 K/mm3 (0.0-0.8) 06/04/18 06:02 Eos # 0.2 K/mm3 (0.0-0.4) 06/04/18 06:02 Baso # 0.1 K/mm3 (0.0-0.1) 06/04/18 06:02 Seg Neutrophils % 71.5 % (40.0-70.0) H 06/04/18 06:02 Seg Neutrophils # 5.0 K/mm3 (1.8-7.7) 06/04/18 06:02 PT 15.4 Sec. (12.2-14.9) H 05/31/18 20:50 INR 1.15 (0.87-1.13) H 05/31/18 20:50 APTT 34.5 Sec. (24.2-36.6) 05/31/18 20:50 Sodium 137 mmol/L (137-145) 06/04/18 06:02 Potassium 4.8 mmol/L (3.6-5.0) 06/04/18 06:02 Chloride 96.5 mmol/L (98-107) L 06/04/18 06:02 Carbon Dioxide 29 mmol/L (22-30) 06/04/18 06:02 Anion Gap 16 mmol/L 06/04/18 06:02 BUN 28 mg/dL (9-20) H 06/04/18 06:02 Creatinine 4.1 mg/dL (0.8-1.5) H 06/04/18 06:02 Estimated GFR 17 ml/min 06/04/18 06:02 BUN/Creatinine Ratio 7 % 06/04/18 06:02 Glucose 87 mg/dL (75-100) 06/04/18 06:02 Calcium 8.8 mg/dL (8.4-10.2) 06/04/18 06:02 Iron 30 ug/dL (49-181) L 06/01/18 10:24 TIBC 163 mcg/dL (250-450) L 06/01/18 10:24 Total Bilirubin 0.40 mg/dL (0.1-1.2) 05/31/18 20:50 AST 30 units/L (5-40) 05/31/18 20:50 ALT 12 units/L (7-56) 05/31/18 20:50 Alkaline Phosphatase 98 units/L (35-129) 05/31/18 20:50 Total Creatine Kinase 42 units/L (55-170) L 06/01/18 10:42 CK-MB (CK-2) 4.6 ng/mL (0.0-4.0) H 06/01/18 10:42 CK-MB (CK-2) Rel Index 10.9 (0-4) H 06/01/18 10:42 Troponin T 0.365 ng/mL (0.00-0.029) H* 06/01/18 10:42 Total Protein 8.7 g/dL (6.3-8.2) H 05/31/18 20:50 Albumin 3.4 g/dL (3.9-5) L 05/31/18 20:50 Albumin/Globulin Ratio 0.6 % 05/31/18 20:50 Triglycerides 57 mg/dL (2-149) 05/31/18 20:50 Cholesterol 92 mg/dL (50-199) 05/31/18 20:50 LDL Cholesterol Direct 41 mg/dL (50-130) L 05/31/18 20:50 HDL Cholesterol 39 mg/dL (40-59) L 05/31/18 20:50 Cholesterol/HDL Ratio 2.35 % 05/31/18 20:50 Active Medications - Current Medications Current Medications: Generic Name Dose Route Start Last Admin Trade Name Freq PRN Reason Stop Dose Admin Acetaminophen 650 mg 06/01/18 03:09 Tylenol PO Q4H PRN Pain MILD(1-3)/Fever >100.5/JENKINS Albuterol 2.5 mg 06/01/18 21:04 Proventil IH Q4HRT PRN Shortness Of Breath Alprazolam 0.5 mg 06/01/18 22:00 06/04/18 10:15 Xanax PO Not Given Q12HR CHONG Aspirin 81 mg 06/02/18 10:00 06/04/18 10:10 Halfprin Ec PO 81 mg QDAY CHONG Administration Atorvastatin Calcium 40 mg 06/01/18 22:00 06/03/18 21:13 Lipitor PO 40 mg QHS CHONG Administration Carvedilol 25 mg 06/01/18 22:00 06/04/18 10:14 Coreg PO Not Given BID CHONG Clonidine HCl 0.1 mg 06/02/18 08:00 06/04/18 08:56 Catapres PO 0.1 mg TID CHONG Administration Clonidine HCl 0.2 mg 06/02/18 08:00 06/04/18 08:56 Catapres PO 0.2 mg TID CHONG Administration Epoetin Davis 20,000 unit 06/03/18 10:43 06/03/18 11:58 Procrit IV 20,000 unit APRIL PRN Administration hemodialysis Hydralazine HCl 100 mg 06/02/18 08:00 06/04/18 08:56 Apresoline PO 100 mg TID CHONG Administration Sodium Chloride 100 mls @ 999 mls/hr 06/01/18 05:42 Nacl 0.9% IV APRIL PRN Hypotension Sodium Chloride 100 mls @ 999 mls/hr 06/03/18 10:43 Nacl 0.9% IV APRIL PRN Hypotension Lorazepam 1 mg 06/02/18 17:04 06/04/18 00:07 Ativan IV 1 mg Q6H PRN Administration Anxiety Miscellaneous Medication 100 gm 06/01/18 21:15 Diclofenac Sodium [Voltaren] TP Q6H CHONG Morphine Sulfate 2 mg 06/01/18 03:09 06/04/18 10:10 Morphine IV 2 mg Q4H PRN Administration Pain, Moderate (4-6) Multivit/Ca Carb/B Cmplx/FA/Prenat 1 cap 06/02/18 10:00 06/04/18 10:10 Renal Caps PO 1 cap QDAY CHONG Administration Nifedipine 90 mg 06/01/18 22:00 06/04/18 10:14 Procardia Xl PO Not Given BID@0800,1700 CHONG Ondansetron HCl 4 mg 06/01/18 03:09 Zofran IV Q8H PRN Nausea And Vomiting Pantoprazole Sodium 40 mg 06/02/18 10:00 06/04/18 10:10 Protonix PO 40 mg DAILY CHONG Administration Sodium Chloride 10 ml 06/01/18 10:00 06/04/18 10:15 Sodium Chloride Flush Syringe 10 Ml IV 10 ml BID CHONG Administration Sodium Chloride 10 ml 06/01/18 03:09 Sodium Chloride Flush Syringe 10 Ml IV PRN PRN LINE FLUSH Trazodone HCl 100 mg 06/01/18 22:00 06/03/18 21:18 Desyrel PO Not Given QHS CHONG
--- NOTE | 2018-06-04 13:02 | Progress Note ---
Assessment and Plan 1. Large pericardial effusion with echocardiographic evidence of any cardiac tamponade patient however remains hemodynamically stable 2. End-stage renal disease 3. Chronic combined systolic and diastolic heart failure 4. Dilated cardiomyopathy 5. Anemia of chronic disease Plan. Remains hemodynamically stable currently on dialysis has agreed fpr pericardiocentesis will be done tomorrow. Subjective Date of service: 06/04/18 Principal diagnosis: Large pericardial effusion ESRD Pleural effusion Interval history: No cardiac symptoms Objective Vital Signs Temp Pulse Resp Resp BP Pulse Ox 06/04/18 11:56 97.9 F 67 20 118/58 100 06/04/18 10:14 69 110/53 06/04/18 10:10 19 06/04/18 10:00 67 19 06/04/18 08:56 72 133/79 06/04/18 08:32 19 94 06/04/18 08:05 98.3 F 72 18 133/79 96 06/04/18 06:21 20 06/04/18 04:22 97.6 F 72 20 124/62 88 06/04/18 02:00 70 06/03/18 23:47 97.7 F 70 20 112/52 94 06/03/18 22:00 20 06/03/18 21:19 70 121/55 06/03/18 21:15 70 20 121/55 06/03/18 21:14 70 121/55 06/03/18 20:49 97 06/03/18 20:20 64 20 121/55 98 06/03/18 16:32 66 165/95 06/03/18 14:50 98.3 F 66 16 131/72 06/03/18 13:40 72 131/72 06/03/18 13:30 72 131/72 06/03/18 13:15 58 L 136/59 - Physical Examination General: No Apparent Distress HEENT: Positive: PERRL Neck: Positive: trachea midline Cardiac: Positive: Regular Rate, S1/S2, S3, PMI, Dilated, Laterally Displaced Lungs: Positive: Normal Exam, clear to auscultation, No Wheeze, Rales, Rhonchi Neuro: Positive: Grossly Intact Abdomen: Positive: Unremarkable, Soft Extremities: Absent: edema - Labs and Meds CBC 06/04/18 Range/Units 06:02 WBC 7.0 (4.5-11.0) K/mm3 RBC 2.89 L (3.65-5.03) M/mm3 Hgb 8.0 L (11.8-15.2) gm/dl Hct 25.2 L (35.5-45.6) % Plt Count 285 (140-440) K/mm3 Lymph # 1.1 L (1.2-5.4) K/mm3 [place] # 0.6 (0.0-0.8) K/mm3 Eos # 0.2 (0.0-0.4) K/mm3 Baso # 0.1 (0.0-0.1) K/mm3 Comprehensive Metabolic Panel 06/04/18 Range/Units 06:02 Sodium 137 (137-145) mmol/L Potassium 4.8 (3.6-5.0) mmol/L Chloride 96.5 L (98-107) mmol/L Carbon Dioxide 29 (22-30) mmol/L BUN 28 H (9-20) mg/dL Creatinine 4.1 H (0.8-1.5) mg/dL Glucose 87 (75-100) mg/dL Calcium 8.8 (8.4-10.2) mg/dL - Imaging and Cardiology EKG: image reviewed
--- NOTE | 2018-06-04 16:21 | Progress Note ---
Assessment and Plan Impression * End-stage renal disease on maintenance hemodialysis * Large pericardial effusion w/ early tamponade physiology * Recurrent pleural effusion * Cardiomyopathy EF 15% * Noncompliance * Hypertension * Anemia secondary to ESRD Recommendations * Patient is s/p HD yesterday w/ low Qb and cautious UF in light of pericardial effusion; tolerated dialysis * Note plans for pericardiocentesis on Tuesday * Epogen TIW prn * Renal diet * Binders with diet * No IV, BP of any puncture in his access arm Subjective Date of service: 06/04/18 Principal diagnosis: Large pericardial effusion ESRD Pleural effusion Interval history: Patient has no complaint. Objective - Vital Signs Vital signs: Vital Signs - 12hr 06/04/18 06/04/18 06/04/18 04:22 06:21 08:05 Temperature 97.6 F 98.3 F Pulse Rate 72 72 Respiratory 20 20 18 Rate Respiratory Rate [Chest] Blood Pressure 124/62 133/79 O2 Sat by Pulse 88 96 Oximetry 06/04/18 06/04/18 06/04/18 08:32 08:56 10:00 Temperature Pulse Rate 72 67 Respiratory 19 Rate Respiratory 19 Rate [Chest] Blood Pressure 133/79 O2 Sat by Pulse 94 Oximetry 06/04/18 06/04/18 06/04/18 10:10 10:14 11:56 Temperature 97.9 F Pulse Rate 69 67 Respiratory 19 20 Rate Respiratory Rate [Chest] Blood Pressure 110/53 118/58 O2 Sat by Pulse 100 Oximetry 06/04/18 06/04/18 06/04/18 13:24 13:25 14:56 Temperature Pulse Rate 68 68 Respiratory 18 Rate Respiratory Rate [Chest] Blood Pressure 123/68 123/68 O2 Sat by Pulse Oximetry 06/04/18 16:03 Temperature 98.2 F Pulse Rate 67 Respiratory 20 Rate Respiratory Rate [Chest] Blood Pressure 109/56 O2 Sat by Pulse 98 Oximetry - General Appearance General appearance: well-developed, chronically ill EENT: ATNC Respiratory: Present: Decreased Breath Sounds (at bases) Cardiology: regular, S1S2 Gastrointestinal: normal, no tenderness, no distended Integumentary: no rash, warm and dry Neurologic: no focal deficit, alert and oriented x3 Musculoskeletal: other (no edema) Psychiatric: cooperative - Lab 06/04/18 06:02 06/04/18 06:02 Most recent lab results Calcium 8.8 mg/dL (8.4-10.2) 06/04/18 06:02 Medications & Allergies - Medications Allergies/Adverse Reactions: Allergies heparin Allergy (Verified 04/21/18 14:26) lowers platelets Home Medications: Home Medications Medication Instructions Recorded Confirmed Last Taken Type AtorvaSTATin [Lipitor] 40 mg PO QHS #30 tab 03/27/18 06/01/18 05/31/18 Rx Esomeprazole Magnesium [Nexium] 40 mg PO DAILY #30 capsule. 03/27/18 06/01/18 05/31/18 Rx Folic Acid/Vit B Comp W-C [Renal 1 cap PO QDAY #60 capsule 03/27/18 06/01/18 05/31/18 Rx Caps] cloNIDine [Catapres] 0.3 mg PO TID 30 Days tablet 03/27/18 06/01/18 05/31/18 Rx hydrALAZINE [Apresoline TAB] 100 mg PO TID #90 tab 03/27/18 06/01/18 05/31/18 Rx traZODone [Desyrel] 100 mg PO QHS #30 tablet 03/27/18 06/01/18 05/30/18 Rx NIFEdipine [Adalat cc] 90 mg PO BID 04/11/18 06/01/18 Unknown History Diclofenac Sodium [Voltaren] 100 gm TP Q6H #1 gel..gram. 04/21/18 06/01/18 05/31/18 Rx ALBUTEROL NEB's [Proventil 0.083% 2.5 mg IH Q4HRT PRN nebu 05/19/18 06/01/18 05/31/18 Rx NEBS] ALPRAZolam [Xanax TAB] 0.5 mg PO Q12HR #20 tablet 05/19/18 06/01/18 05/31/18 Rx Aspirin EC [Aspirin Enteric Coated 81 mg PO QDAY tablet 05/19/18 06/01/18 05/31/18 Rx TAB] AtorvaSTATin [Lipitor] 40 mg PO QHS tablet 05/19/18 06/01/18 05/31/18 Rx Carvedilol [Coreg] 25 mg PO BID tablet 05/19/18 06/01/18 05/31/18 Rx Active Medications: Generic Name Dose Route Start Last Admin Trade Name Freq PRN Reason Stop Dose Admin Acetaminophen 650 mg 06/01/18 03:09 Tylenol PO Q4H PRN Pain MILD(1-3)/Fever >100.5/JENKINS Albuterol 2.5 mg 06/01/18 21:04 Proventil IH Q4HRT PRN Shortness Of Breath Alprazolam 0.5 mg 06/01/18 22:00 06/04/18 10:15 Xanax PO Not Given Q12HR [facility] Aspirin 81 mg 06/02/18 10:00 06/04/18 10:10 Halfprin Ec PO 81 mg QDAY CHONG Administration Atorvastatin Calcium 40 mg 06/01/18 22:00 06/03/18 21:13 Lipitor PO 40 mg QHS CHONG Administration Carvedilol 25 mg 06/01/18 22:00 06/04/18 10:14 Coreg PO Not Given BID [facility] Clonidine HCl 0.1 mg 06/02/18 08:00 06/04/18 13:24 Catapres PO 0.1 mg TID CHONG Administration Clonidine HCl 0.2 mg 06/02/18 08:00 06/04/18 13:25 Catapres PO 0.2 mg TID CHONG Administration Epoetin [place] 20,000 unit 06/03/18 10:43 06/03/18 11:58 Procrit IV 20,000 unit APRIL PRN Administration hemodialysis Hydralazine HCl 100 mg 06/02/18 08:00 06/04/18 13:24 Apresoline PO 100 mg TID CHONG Administration Sodium Chloride 100 mls @ 999 mls/hr 06/01/18 05:42 Nacl 0.9% IV APRIL PRN Hypotension Sodium Chloride 100 mls @ 999 mls/hr 06/03/18 10:43 Nacl 0.9% IV APRIL PRN Hypotension Lorazepam 1 mg 06/02/18 17:04 06/04/18 00:07 Ativan IV 1 mg Q6H PRN Administration Anxiety Miscellaneous Medication 100 gm 06/01/18 21:15 Diclofenac Sodium [Voltaren] TP Q6H [facility] Morphine Sulfate 2 mg 06/01/18 03:09 06/04/18 14:56 Morphine IV 2 mg Q4H PRN Administration Pain, Moderate (4-6) Multivit/Ca Carb/B Cmplx/FA/Prenat 1 cap 06/02/18 10:00 06/04/18 10:10 Renal Caps PO 1 cap QDAY CHONG Administration Nifedipine 90 mg 06/01/18 22:00 06/04/18 10:14 Procardia Xl PO Not Given BID@0800,1700 CHONG Ondansetron HCl 4 mg 06/01/18 03:09 Zofran IV Q8H PRN Nausea And Vomiting Pantoprazole Sodium 40 mg 06/02/18 10:00 06/04/18 10:10 Protonix PO 40 mg DAILY CHONG Administration Sodium Chloride 10 ml 06/01/18 10:00 06/04/18 10:15 Sodium Chloride Flush Syringe 10 Ml IV 10 ml BID CHONG Administration Sodium Chloride 10 ml 06/01/18 03:09 Sodium Chloride Flush Syringe 10 Ml IV PRN PRN LINE FLUSH Trazodone HCl 100 mg 06/01/18 22:00 06/03/18 21:18 Desyrel PO Not Given QHS CHONG
[2018-06-05] MEDS: COREG PO SCH ×3 (00:02→21:50)
[2018-06-05] MEDS: SODIUM CHLORIDE FLUSH SYRINGE 10 ML IV SCH ×3 (00:03→21:53)
[2018-06-05] MEDS: ATIVAN IV PRN (00:03)
[2018-06-05] MEDS: DESYREL PO SCH ×2 (00:06→21:52)
[2018-06-05] MEDS: PROCARDIA XL PO SCH ×3 (00:07→18:05)
[2018-06-05] MEDS: XANAX PO SCH ×3 (00:07→21:52)
[2018-06-05] MEDS: MORPHINE IV PRN ×4 (04:21→20:39)
[2018-06-05 06:57] LABS: Basophils # (Auto) 0.1 K/mm3 (0.0-0.1); Basophils % (Auto) 1.3 % (0.0-1.8); Eosinophils # (Auto) 0.2 K/mm3 (0.0-0.4); Eosinophils % (Auto) 2.2 % (0.0-4.3); Hematocrit 22.2 % (35.5-45.6); Hemoglobin 7.1 gm/dl (11.8-15.2); Lymphocytes # (Auto) 1.1 K/mm3 (1.2-5.4); Lymphocytes % (Auto) 13.4 % (13.4-35.0); Mean Corpuscular HGB Conc 32 % (32-34); Mean Corpuscular Volume 86 fl (84-94); Monocytes # (Auto) 0.8 K/mm3 (0.0-0.8); Monocytes % (Auto) 9.4 % (0.0-7.3); Platelet Count 276 K/mm3 (140-440); Red Blood Count 2.58 M/mm3 (3.65-5.03); Red Cell Distribution Width 19.1 % (13.2-15.2)
[2018-06-05 07:20] LABS: Calcium 8.6 mg/dL (8.4-10.2)
--- NOTE | 2018-06-05 08:20 | Progress Note ---
Assessment and Plan Assessment and plan: -- Pericardial effusion Evaluated by cardiology, recommend pericardiocentesis Initially patient refused, later Agreed for the procedure Early Tamponade, possible pericardiocentesis today per cardiology --Chronic combined systolic and diastolic congestive heart failure continue current management, cardiology following -- Pleural effusion Had recent Thoracentesis, Supportive care -- ESRD needing dialysis on hemodialysis Continue HD as per schedule, nephrology following -- Elevated troponin I level Nonspecific due to to Esrd, cardiology following --HTN (hypertension) Moderate control, continue current antihypertensives When necessary medications -- HLD (hyperlipidemia) Cont statins, low-cholesterol diet --GERD (gastroesophageal reflux disease) Cont PPI's -- DVT prophylaxis On Heparin renal dose Plan of care reviewed with the patient Possible discharge in 1-2 days if stable History Interval history: Patient seen and examined medical records reviewed The patient feels slightly better, denies chest pain or shortness of breath. Possible pericardiocentesis today per cardiology. Alert awake oriented 3 not in acute distress Vital signs reviewed Hospitalist Physical - Constitutional Vitals: Temp Pulse Resp BP Pulse Ox 97.7 F 94 H 20 130/70 97 06/05/18 04:04 06/05/18 02:00 06/05/18 04:21 06/05/18 04:04 06/04/18 23:54 General appearance: Present: no acute distress, well-nourished - EENT Eyes: Present: PERRL, EOM intact - Neck Neck: Present: supple, normal ROM - Respiratory Respiratory effort: normal Respiratory: bilateral: diminished, rales, negative: rhonchi, wheezing - Cardiovascular Rhythm: regular Heart Sounds: Present: S1 & S2 (muffled heart sounds) - Extremities Extremities: no ischemia Extremity abnormal: edema - Abdominal General gastrointestinal: soft, non-tender, non-distended, normal bowel sounds - Integumentary Integumentary: Present: clear, warm - Psychiatric Psychiatric: appropriate mood/affect, cooperative - Neurologic Neurologic: CNII-XII intact, moves all extremities Results - Labs CBC & Chem 7: 06/05/18 06:01 06/05/18 06:01 Labs: Laboratory Last Values WBC 8.4 K/mm3 (4.5-11.0) 06/05/18 06:01 RBC 2.58 M/mm3 (3.65-5.03) L 06/05/18 06:01 Hgb 7.1 gm/dl (11.8-15.2) L 06/05/18 06:01 Hct 22.2 % (35.5-45.6) L 06/05/18 06:01 MCV 86 fl (84-94) 06/05/18 06:01 MCH 28 pg (28-32) 06/05/18 06:01 MCHC 32 % (32-34) 06/05/18 06:01 RDW 19.1 % (13.2-15.2) H 06/05/18 06:01 Plt Count 276 K/mm3 (140-440) 06/05/18 06:01 Lymph % (Auto) 13.4 % (13.4-35.0) 06/05/18 06:01 Riley % (Auto) 9.4 % (0.0-7.3) H 06/05/18 06:01 Eos % (Auto) 2.2 % (0.0-4.3) 06/05/18 06:01 Baso % (Auto) 1.3 % (0.0-1.8) 06/05/18 06:01 Lymph # 1.1 K/mm3 (1.2-5.4) L 06/05/18 06:01 Riley # 0.8 K/mm3 (0.0-0.8) 06/05/18 06:01 Eos # 0.2 K/mm3 (0.0-0.4) 06/05/18 06:01 Baso # 0.1 K/mm3 (0.0-0.1) 06/05/18 06:01 Seg Neutrophils % 73.7 % (40.0-70.0) H 06/05/18 06:01 Seg Neutrophils # 6.2 K/mm3 (1.8-7.7) 06/05/18 06:01 PT 15.4 Sec. (12.2-14.9) H 05/31/18 20:50 INR 1.15 (0.87-1.13) H 05/31/18 20:50 APTT 34.5 Sec. (24.2-36.6) 05/31/18 20:50 Sodium 135 mmol/L (137-145) L 06/05/18 06:01 Potassium 5.1 mmol/L (3.6-5.0) H 06/05/18 06:01 Chloride 95.9 mmol/L (98-107) L 06/05/18 06:01 Carbon Dioxide 24 mmol/L (22-30) 06/05/18 06:01 Anion Gap 20 mmol/L 06/05/18 06:01 BUN 43 mg/dL (9-20) H 06/05/18 06:01 Creatinine 5.5 mg/dL (0.8-1.5) H 06/05/18 06:01 Estimated GFR 12 ml/min 06/05/18 06:01 BUN/Creatinine Ratio 8 % 06/05/18 06:01 Glucose 82 mg/dL (75-100) 06/05/18 06:01 Calcium 8.6 mg/dL (8.4-10.2) 06/05/18 06:01 Iron 30 ug/dL (49-181) L 06/01/18 10:24 TIBC 163 mcg/dL (250-450) L 06/01/18 10:24 Total Bilirubin 0.40 mg/dL (0.1-1.2) 05/31/18 20:50 AST 30 units/L (5-40) 05/31/18 20:50 ALT 12 units/L (7-56) 05/31/18 20:50 Alkaline Phosphatase 98 units/L (35-129) 05/31/18 20:50 Total Creatine Kinase 42 units/L (55-170) L 06/01/18 10:42 CK-MB (CK-2) 4.6 ng/mL (0.0-4.0) H 06/01/18 10:42 CK-MB (CK-2) Rel Index 10.9 (0-4) H 06/01/18 10:42 Troponin T 0.365 ng/mL (0.00-0.029) H* 06/01/18 10:42 Total Protein 8.7 g/dL (6.3-8.2) H 05/31/18 20:50 Albumin 3.4 g/dL (3.9-5) L 05/31/18 20:50 Albumin/Globulin Ratio 0.6 % 05/31/18 20:50 Triglycerides 57 mg/dL (2-149) 05/31/18 20:50 Cholesterol 92 mg/dL (50-199) 05/31/18 20:50 LDL Cholesterol Direct 41 mg/dL (50-130) L 05/31/18 20:50 HDL Cholesterol 39 mg/dL (40-59) L 05/31/18 20:50 Cholesterol/HDL Ratio 2.35 % 05/31/18 20:50 Active Medications - Current Medications Current Medications: Generic Name Dose Route Start Last Admin Trade Name Freq PRN Reason Stop Dose Admin Acetaminophen 650 mg 06/01/18 03:09 Tylenol PO Q4H PRN Pain MILD(1-3)/Fever >100.5/JENKINS Albuterol 2.5 mg 06/01/18 21:04 Proventil IH Q4HRT PRN Shortness Of Breath Alprazolam 0.5 mg 06/01/18 22:00 06/05/18 00:07 Xanax PO Not Given Q12HR CHONG Aspirin 81 mg 06/02/18 10:00 06/04/18 10:10 Halfprin Ec PO 81 mg QDAY CHONG Administration Atorvastatin Calcium 40 mg 06/01/18 22:00 06/05/18 00:02 Lipitor PO 40 mg QHS CHONG Administration Carvedilol 25 mg 06/01/18 22:00 06/05/18 00:02 Coreg PO 25 mg BID CHONG Administration Clonidine HCl 0.1 mg 06/02/18 08:00 06/04/18 20:37 Catapres PO 0.1 mg TID CHONG Administration Clonidine HCl 0.2 mg 06/02/18 08:00 06/04/18 20:37 Catapres PO 0.2 mg TID CHONG Administration Epoetin Davis 20,000 unit 06/03/18 10:43 06/03/18 11:58 Procrit IV 20,000 unit APRIL PRN Administration hemodialysis Hydralazine HCl 100 mg 06/02/18 08:00 06/04/18 20:37 Apresoline PO 100 mg TID CHONG Administration Sodium Chloride 100 mls @ 999 mls/hr 06/01/18 05:42 Nacl 0.9% IV APRIL PRN Hypotension Sodium Chloride 100 mls @ 999 mls/hr 06/03/18 10:43 Nacl 0.9% IV APRIL PRN Hypotension Lorazepam 1 mg 06/02/18 17:04 06/05/18 00:03 Ativan IV 1 mg Q6H PRN Administration Anxiety Miscellaneous Medication 100 gm 06/01/18 21:15 Diclofenac Sodium [Voltaren] TP Q6H CHONG Morphine Sulfate 2 mg 06/01/18 03:09 06/05/18 04:21 Morphine IV 2 mg Q4H PRN Administration Pain, Moderate (4-6) Multivit/Ca Carb/B Cmplx/FA/Prenat 1 cap 06/02/18 10:00 06/04/18 10:10 Renal Caps PO 1 cap QDAY CHONG Administration Nifedipine 90 mg 06/01/18 22:00 06/05/18 00:07 Procardia Xl PO Not Given BID@0800,1700 CHONG Ondansetron HCl 4 mg 06/01/18 03:09 Zofran IV Q8H PRN Nausea And Vomiting Pantoprazole Sodium 40 mg 06/02/18 10:00 06/04/18 10:10 Protonix PO 40 mg DAILY CHONG Administration Sodium Chloride 10 ml 06/01/18 10:00 06/05/18 00:03 Sodium Chloride Flush Syringe 10 Ml IV 10 ml BID CHONG Administration Trazodone HCl 100 mg 06/01/18 22:00 06/05/18 00:06 Desyrel PO Not Given QHS CHONG
[2018-06-05] MEDS: APRESOLINE PO SCH ×3 (08:39→21:51)
[2018-06-05] MEDS: CATAPRES PO SCH ×6 (08:39→21:51)
--- NOTE | 2018-06-05 09:07 | Progress Note ---
Assessment and Plan Impression * End-stage renal disease on maintenance hemodialysis * Large pericardial effusion w/ early tamponade physiology * Recurrent pleural effusion * Cardiomyopathy EF 15% * Noncompliance * Hypertension * Anemia secondary to ESRD Recommendations * Hemodialysis tomorrow - continue TTS schedule * UF as tolerated * Pericardiocentesis planned for today * Epogen TIW prn * Renal diet * Binders with diet * No IV, BP of any puncture in his access arm Subjective Date of service: 06/05/18 Principal diagnosis: Large pericardial effusion ESRD Pleural effusion Interval history: Patient has no complaint today Objective - Vital Signs Vital signs: Vital Signs - 12hr 06/04/18 06/04/18 06/05/18 22:46 23:54 00:02 Temperature 98.5 F Pulse Rate 69 68 Respiratory 20 Rate Blood Pressure 125/69 125/69 O2 Sat by Pulse 100 97 Oximetry 06/05/18 06/05/18 06/05/18 02:00 04:04 04:21 Temperature 97.7 F Pulse Rate 94 H Respiratory 20 20 Rate Blood Pressure 130/70 O2 Sat by Pulse Oximetry 06/05/18 06/05/18 06/05/18 08:29 08:37 08:39 Temperature 98.2 F Pulse Rate 64 Respiratory 20 20 Rate Blood Pressure 138/81 138/81 O2 Sat by Pulse 97 Oximetry - General Appearance General appearance: chronically ill EENT: ATNC Respiratory: Present: Decreased Breath Sounds Cardiology: regular, S1S2 Gastrointestinal: normal, no tenderness, no distended Integumentary: warm and dry Neurologic: no focal deficit, alert and oriented x3 Musculoskeletal: other (no edema) Psychiatric: cooperative - Lab 06/05/18 06:01 06/05/18 06:01 Most recent lab results Calcium 8.6 mg/dL (8.4-10.2) 06/05/18 06:01 Medications & Allergies - Medications Allergies/Adverse Reactions: Allergies heparin Allergy (Verified 04/21/18 14:26) lowers platelets Home Medications: Home Medications Medication Instructions Recorded Confirmed Last Taken Type AtorvaSTATin [Lipitor] 40 mg PO QHS #30 tab 03/27/18 06/01/18 05/31/18 Rx Esomeprazole Magnesium [Nexium] 40 mg PO DAILY #30 capsule. 03/27/18 06/01/18 05/31/18 Rx Folic Acid/Vit B Comp W-C [Renal 1 cap PO QDAY #60 capsule 03/27/18 06/01/18 05/31/18 Rx Caps] cloNIDine [Catapres] 0.3 mg PO TID 30 Days tablet 03/27/18 06/01/18 05/31/18 Rx hydrALAZINE [Apresoline TAB] 100 mg PO TID #90 tab 03/27/18 06/01/18 05/31/18 Rx traZODone [Desyrel] 100 mg PO QHS #30 tablet 03/27/18 06/01/18 05/30/18 Rx NIFEdipine [Adalat cc] 90 mg PO BID 04/11/18 06/01/18 Unknown History Diclofenac Sodium [Voltaren] 100 gm TP Q6H #1 gel..gram. 04/21/18 06/01/18 05/31/18 Rx ALBUTEROL NEB's [Proventil 0.083% 2.5 mg IH Q4HRT PRN nebu 05/19/18 06/01/18 05/31/18 Rx NEBS] ALPRAZolam [Xanax TAB] 0.5 mg PO Q12HR #20 tablet 05/19/18 06/01/18 05/31/18 Rx Aspirin EC [Aspirin Enteric Coated 81 mg PO QDAY tablet 05/19/18 06/01/18 05/31/18 Rx TAB] AtorvaSTATin [Lipitor] 40 mg PO QHS tablet 05/19/18 06/01/18 05/31/18 Rx Carvedilol [Coreg] 25 mg PO BID tablet 05/19/18 06/01/18 05/31/18 Rx Active Medications: Generic Name Dose Route Start Last Admin Trade Name Freq PRN Reason Stop Dose Admin Acetaminophen 650 mg 06/01/18 03:09 Tylenol PO Q4H PRN Pain MILD(1-3)/Fever >100.5/JENKINS Albuterol 2.5 mg 06/01/18 21:04 Proventil IH Q4HRT PRN Shortness Of Breath Alprazolam 0.5 mg 06/01/18 22:00 06/05/18 00:07 Xanax PO Not Given Q12HR CHONG Aspirin 81 mg 06/02/18 10:00 06/04/18 10:10 Halfprin Ec PO 81 mg QDAY CHONG Administration Atorvastatin Calcium 40 mg 06/01/18 22:00 06/05/18 00:02 Lipitor PO 40 mg QHS CHONG Administration Carvedilol 25 mg 06/01/18 22:00 06/05/18 00:02 Coreg PO 25 mg BID [facility] Administration Clonidine HCl 0.1 mg 06/02/18 08:00 06/05/18 08:39 Catapres PO Not Given TID CHONG Clonidine HCl 0.2 mg 06/02/18 08:00 06/05/18 08:39 Catapres PO Not Given TID [facility] Epoetin Davis 20,000 unit 06/03/18 10:43 06/03/18 11:58 Procrit IV 20,000 unit APRIL PRN Administration hemodialysis Hydralazine HCl 100 mg 06/02/18 08:00 06/05/18 08:39 Apresoline PO Not Given TID [facility] Sodium Chloride 100 mls @ 999 mls/hr 06/01/18 05:42 Nacl 0.9% IV APRIL PRN Hypotension Sodium Chloride 100 mls @ 999 mls/hr 06/03/18 10:43 Nacl 0.9% IV APRIL PRN Hypotension Lorazepam 1 mg 06/02/18 17:04 06/05/18 00:03 Ativan IV 1 mg Q6H PRN Administration Anxiety Miscellaneous Medication 100 gm 06/01/18 21:15 Diclofenac Sodium [Voltaren] TP Q6H [facility] Morphine Sulfate 2 mg 06/01/18 03:09 06/05/18 08:37 Morphine IV 2 mg Q4H PRN Administration Pain, Moderate (4-6) Multivit/Ca Carb/B Cmplx/FA/Prenat 1 cap 06/02/18 10:00 06/04/18 10:10 Renal Caps PO 1 cap QDAY [facility] Administration Nifedipine 90 mg 06/01/18 22:00 06/05/18 08:39 Procardia Xl PO Not Given BID@0800,1700 [facility] Ondansetron HCl 4 mg 06/01/18 03:09 Zofran IV Q8H PRN Nausea And Vomiting Pantoprazole Sodium 40 mg 06/02/18 10:00 06/04/18 10:10 Protonix PO 40 mg DAILY CHONG Administration Sodium Chloride 10 ml 06/01/18 10:00 06/05/18 00:03 Sodium Chloride Flush Syringe 10 Ml IV 10 ml BID CHONG Administration Trazodone HCl 100 mg 06/01/18 22:00 06/05/18 00:06 Desyrel PO Not Given QHS CHONG
[2018-06-05 10:04] LABS: INR 1.22 (0.87-1.13)
--- NOTE | 2018-06-05 12:22 | Progress Note ---
Assessment and Plan Volume overload Chest CTA scan reports a large pericardial effusion, large bilateral pleural effusion but no evidence of pulmonary embolism. ESRD on dialysis Hypertension Non-ischemic cardiomyopathy [facility] 07/2017: no significant coronary artery disease but a decreased left ventricular ejection fraction 15-20%. Chronic Ascities with intermittent paracentesis. Chronic anemia Chronic hypoxic respiratory failure on home oxygen Limited echocardiogram this admission reveals a large pericardial effusion with diastolic RV collapse suggesting early tamponade. There is a large pleural effusion. LVEF 50-55%. Recommendations: Dialysis for fluid management. Limited echocardiogram for re-evaluation of pericardial effusion. Continue medical therapy for nonischemic cardiomyopathy and chronic systolic heart failure. Subjective Date of service: 06/05/18 Principal diagnosis: Large pericardial effusion ESRD Pleural effusion Interval history: Patient is resting in bed comfortably. No distress noted. Objective Vital Signs Temp Pulse Resp BP Pulse Ox 06/05/18 09:15 96 06/05/18 08:39 138/81 06/05/18 08:37 20 06/05/18 08:29 98.2 F 64 20 138/81 97 06/05/18 04:21 20 06/05/18 04:04 97.7 F 20 130/70 06/05/18 02:00 94 H 06/05/18 00:02 68 125/69 06/04/18 23:54 98.5 F 69 20 125/69 97 06/04/18 22:46 100 06/04/18 20:38 20 06/04/18 20:37 90 126/65 06/04/18 20:35 99.5 F 20 126/65 06/04/18 16:03 98.2 F 67 20 109/56 98 06/04/18 14:56 18 06/04/18 13:25 68 123/68 06/04/18 13:24 68 123/68 - Physical Examination General: No Apparent Distress HEENT: Positive: PERRL Cardiac: Positive: Reg Rate and Rhythm Lungs: Positive: Decreased Breath Sounds Neuro: Positive: Grossly Intact Extremities: Absent: edema - Labs and Meds Coagulation 06/05/18 Range/Units 09:21 PT 16.2 H (12.2-14.9) Sec. INR 1.22 H (0.87-1.13) CBC 06/05/18 Range/Units 06:01 WBC 8.4 (4.5-11.0) K/mm3 RBC 2.58 L (3.65-5.03) M/mm3 Hgb 7.1 L (11.8-15.2) gm/dl Hct 22.2 L (35.5-45.6) % Plt Count 276 (140-440) K/mm3 Lymph # 1.1 L (1.2-5.4) K/mm3 [place] # 0.8 (0.0-0.8) K/mm3 Eos # 0.2 (0.0-0.4) K/mm3 Baso # 0.1 (0.0-0.1) K/mm3 Comprehensive Metabolic Panel 06/05/18 Range/Units 06:01 Sodium 135 L (137-145) mmol/L Potassium 5.1 H (3.6-5.0) mmol/L Chloride 95.9 L (98-107) mmol/L Carbon Dioxide 24 (22-30) mmol/L BUN 43 H (9-20) mg/dL Creatinine 5.5 H (0.8-1.5) mg/dL Glucose 82 (75-100) mg/dL Calcium 8.6 (8.4-10.2) mg/dL
[2018-06-05] MEDS: HALFPRIN EC PO SCH (12:41)
[2018-06-05] MEDS: Renal Caps PO SCH (12:41)
[2018-06-05] MEDS: PROTONIX PO SCH (12:41)
[2018-06-05] MEDS ORDERED: NACL 0.9% 500 ML 500 ML IV SCH (14:00)
[2018-06-06] MEDS: ATIVAN IV PRN (01:34)
[2018-06-06] MEDS: MORPHINE IV PRN ×4 (05:26→21:04)
[2018-06-06 05:29] LABS: Basophils # (Auto) 0.1 K/mm3 (0.0-0.1); Basophils % (Auto) 1.4 % (0.0-1.8); Eosinophils # (Auto) 0.2 K/mm3 (0.0-0.4); Eosinophils % (Auto) 2.6 % (0.0-4.3); Hematocrit 21.7 % (35.5-45.6); Lymphocytes % (Auto) 13.1 % (13.4-35.0); Mean Corpuscular HGB Conc 32 % (32-34); Mean Corpuscular Volume 86 fl (84-94); Monocytes # (Auto) 0.6 K/mm3 (0.0-0.8); Monocytes % (Auto) 8.3 % (0.0-7.3); Platelet Count 255 K/mm3 (140-440); Red Blood Count 2.53 M/mm3 (3.65-5.03); Red Cell Distribution Width 19.6 % (13.2-15.2)
[2018-06-06 06:15] LABS: Calcium 8.4 mg/dL (8.4-10.2)
[2018-06-06] MEDS: PROCARDIA XL PO SCH ×3 (08:00→17:57)
[2018-06-06] MEDS: APRESOLINE PO SCH ×3 (08:00→20:00)
[2018-06-06] MEDS: CATAPRES PO SCH ×6 (08:00→20:00)
[2018-06-06] MEDS: SODIUM CHLORIDE FLUSH SYRINGE 10 ML IV SCH ×2 (09:30→21:05)
--- NOTE | 2018-06-06 09:38 | Event Note ---
Date: 06/06/18 The pericardiocentesis that was planned for today will be canceled due to the finding of severe hyperkalemia, potassium 6.0. In addition, the patient has not had his routine dialysis for 3 days. We will reschedule for tomorrow.
[2018-06-06] MEDS ORDERED: NACL 0.9 (PRIMING MACHINE ONLY DIALYSIS) MC ONE (10:58)
[2018-06-06] MEDS: ZOFRAN IV PRN (11:04)
[2018-06-06] MEDS: PROTONIX PO SCH (14:54)
[2018-06-06] MEDS: Renal Caps PO SCH (14:54)
[2018-06-06] MEDS: COREG PO SCH ×2 (14:54→22:00)
[2018-06-06] MEDS: HALFPRIN EC PO SCH (14:54)
[2018-06-06] MEDS: XANAX PO SCH ×2 (14:55→22:00)
--- NOTE | 2018-06-06 17:52 | Progress Note ---
Assessment and Plan Assessment and plan: -- Pericardial effusion Procedure scheduled for today but pt was not NPO possible pericardiocentesis tomorrow per cardiology --Chronic combined systolic and diastolic congestive heart failure continue current management, cardiology following -- Pleural effusion Had recent Thoracentesis, Supportive care -- ESRD needing dialysis on hemodialysis Continue HD as per schedule, nephrology following -- Elevated troponin I level Nonspecific due to to Esrd, cardiology following --HTN (hypertension) Moderate control, continue current antihypertensives When necessary medications -- HLD (hyperlipidemia) Cont statins, low-cholesterol diet --GERD (gastroesophageal reflux disease) Cont PPI's -- DVT prophylaxis On Heparin renal dose Plan of care reviewed with the patient Possible discharge in 1-2 days if stable History Interval history: Patient seen and examined medical records reviewed Receiving hemodialysis No new complaints Hospitalist Physical - Constitutional Vitals: Temp Pulse Resp BP Pulse Ox 97.3 F L 61 20 115/68 96 06/06/18 08:01 06/06/18 10:00 06/06/18 11:02 06/06/18 08:01 06/06/18 04:37 General appearance: Present: no acute distress, well-nourished - EENT Eyes: Present: PERRL, EOM intact - Neck Neck: Present: supple, normal ROM - Respiratory Respiratory effort: normal Respiratory: bilateral: diminished, rales, negative: rhonchi, wheezing - Cardiovascular Rhythm: regular Heart Sounds: Present: S1 & S2 - Extremities Extremities: no ischemia, pulses intact - Abdominal General gastrointestinal: soft, non-tender, non-distended, normal bowel sounds - Integumentary Integumentary: Present: clear, warm - Psychiatric Psychiatric: appropriate mood/affect, cooperative - Neurologic Neurologic: CNII-XII intact, moves all extremities Results - Labs CBC & Chem 7: 06/06/18 05:07 06/07/18 08:31 Labs: Laboratory Last Values WBC 7.6 K/mm3 (4.5-11.0) 06/06/18 05:07 RBC 2.53 M/mm3 (3.65-5.03) L 06/06/18 05:07 Hgb 7.0 gm/dl (11.8-15.2) L 06/06/18 05:07 Hct 21.7 % (35.5-45.6) L 06/06/18 05:07 MCV 86 fl (84-94) 06/06/18 05:07 MCH 28 pg (28-32) 06/06/18 05:07 MCHC 32 % (32-34) 06/06/18 05:07 RDW 19.6 % (13.2-15.2) H 06/06/18 05:07 Plt Count 255 K/mm3 (140-440) 06/06/18 05:07 Lymph % (Auto) 13.1 % (13.4-35.0) L 06/06/18 05:07 [place] % (Auto) 8.3 % (0.0-7.3) H 06/06/18 05:07 Eos % (Auto) 2.6 % (0.0-4.3) 06/06/18 05:07 Baso % (Auto) 1.4 % (0.0-1.8) 06/06/18 05:07 Lymph # 1.0 K/mm3 (1.2-5.4) L 06/06/18 05:07 [place] # 0.6 K/mm3 (0.0-0.8) 06/06/18 05:07 Eos # 0.2 K/mm3 (0.0-0.4) 06/06/18 05:07 Baso # 0.1 K/mm3 (0.0-0.1) 06/06/18 05:07 Seg Neutrophils % 74.6 % (40.0-70.0) H 06/06/18 05:07 Seg Neutrophils # 5.7 K/mm3 (1.8-7.7) 06/06/18 05:07 PT 16.2 Sec. (12.2-14.9) H 06/05/18 09:21 INR 1.22 (0.87-1.13) H 06/05/18 09:21 APTT 34.5 Sec. (24.2-36.6) 05/31/18 20:50 Sodium 129 mmol/L (137-145) L 06/06/18 05:07 Potassium 6.0 mmol/L (3.6-5.0) H 06/06/18 05:07 Chloride 92.7 mmol/L (98-107) L 06/06/18 05:07 Carbon Dioxide 24 mmol/L (22-30) 06/06/18 05:07 Anion Gap 18 mmol/L 06/06/18 05:07 BUN 57 mg/dL (9-20) H 06/06/18 05:07 Creatinine 6.2 mg/dL (0.8-1.5) H 06/06/18 05:07 Estimated GFR 11 ml/min 06/06/18 05:07 BUN/Creatinine Ratio 9 % 06/06/18 05:07 Glucose 77 mg/dL (75-100) 06/06/18 05:07 Calcium 8.4 mg/dL (8.4-10.2) 06/06/18 05:07 Iron 30 ug/dL (49-181) L 06/01/18 10:24 TIBC 163 mcg/dL (250-450) L 06/01/18 10:24 Total Bilirubin 0.40 mg/dL (0.1-1.2) 05/31/18 20:50 AST 30 units/L (5-40) 05/31/18 20:50 ALT 12 units/L (7-56) 05/31/18 20:50 Alkaline Phosphatase 98 units/L (35-129) 05/31/18 20:50 Total Creatine Kinase 42 units/L (55-170) L 06/01/18 10:42 CK-MB (CK-2) 4.6 ng/mL (0.0-4.0) H 06/01/18 10:42 CK-MB (CK-2) Rel Index 10.9 (0-4) H 06/01/18 10:42 Troponin T 0.365 ng/mL (0.00-0.029) H* 06/01/18 10:42 Total Protein 8.7 g/dL (6.3-8.2) H 05/31/18 20:50 Albumin 3.4 g/dL (3.9-5) L 05/31/18 20:50 Albumin/Globulin Ratio 0.6 % 05/31/18 20:50 Triglycerides 57 mg/dL (2-149) 05/31/18 20:50 Cholesterol 92 mg/dL (50-199) 05/31/18 20:50 LDL Cholesterol Direct 41 mg/dL (50-130) L 05/31/18 20:50 HDL Cholesterol 39 mg/dL (40-59) L 05/31/18 20:50 Cholesterol/HDL Ratio 2.35 % 05/31/18 20:50 Active Medications - Current Medications Current Medications: Generic Name Dose Route Start Last Admin Trade Name Erma PRN Reason Stop Dose Admin Acetaminophen 650 mg 06/01/18 03:09 Tylenol PO Q4H PRN Pain MILD(1-3)/Fever >100.5/JENKINS Albuterol 2.5 mg 06/01/18 21:04 Proventil IH Q4HRT PRN Shortness Of Breath Alprazolam 0.5 mg 06/01/18 22:00 06/06/18 14:55 Xanax PO 0.5 mg Q12HR CHONG Administration Aspirin 81 mg 06/02/18 10:00 06/06/18 14:54 Halfprin Ec PO 81 mg QDAY CHONG Administration Atorvastatin Calcium 40 mg 06/01/18 22:00 06/05/18 21:51 Lipitor PO 40 mg QHS CHONG Administration Carvedilol 25 mg 06/01/18 22:00 06/06/18 14:54 Coreg PO 25 mg BID CHONG Administration Clonidine HCl 0.1 mg 06/02/18 08:00 06/06/18 14:54 Catapres PO 0.1 mg TID CHONG Administration Clonidine HCl 0.2 mg 06/02/18 08:00 06/06/18 14:54 Catapres PO 0.2 mg TID CHONG Administration Epoetin Davis 20,000 unit 06/03/18 10:43 06/03/18 11:58 Procrit IV 20,000 unit APRIL PRN Administration hemodialysis Hydralazine HCl 100 mg 06/02/18 08:00 06/06/18 14:54 Apresoline PO 100 mg TID CHONG Administration Lorazepam 1 mg 06/02/18 17:04 06/06/18 01:34 Ativan IV 1 mg Q6H PRN Administration Anxiety Morphine Sulfate 2 mg 06/01/18 03:09 06/06/18 14:56 Morphine IV 2 mg Q4H PRN Administration Pain, Moderate (4-6) Multivit/Ca Carb/B Cmplx/FA/Prenat 1 cap 06/02/18 10:00 06/06/18 14:54 Renal Caps PO 1 cap QDAY CHONG Administration Nifedipine 90 mg 06/01/18 22:00 03/26/19 14:55 Procardia Xl PO 90 mg BID@0800,1700 CHONG Administration Ondansetron HCl 4 mg 06/01/18 03:09 06/06/18 11:04 Zofran IV 4 mg Q8H PRN Administration Nausea And Vomiting Pantoprazole Sodium 40 mg 06/02/18 10:00 06/06/18 14:54 Protonix PO 40 mg DAILY CHONG Administration Sodium Chloride 10 ml 06/01/18 10:00 06/06/18 09:30 Sodium Chloride Flush Syringe 10 Ml IV 10 ml BID CHONG Administration Trazodone HCl 100 mg 06/01/18 22:00 06/05/18 21:52 Desyrel PO Not Given QHS CHONG
[2018-06-06] MEDS: DESYREL PO SCH (22:00)
[2018-06-07] MEDS: MORPHINE IV PRN ×4 (02:30→22:12)
--- NOTE | 2018-06-07 07:01 | Progress Note ---
Assessment and Plan Impression * End-stage renal disease on maintenance hemodialysis * Large pericardial effusion w/ early tamponade physiology * Recurrent pleural effusion * Cardiomyopathy EF 15% * Noncompliance * Hypertension * Anemia secondary to ESRD Recommendations * Patient did not have pericardiocentesis yesterday; planned for today * Hemodialysis today - continue TTS schedule * UF as tolerated * Epogen TIW prn * Renal diet * Binders with diet * No IV, BP of any puncture in his access arm Subjective Date of service: 06/06/18 Principal diagnosis: Large pericardial effusion ESRD Pleural effusion Interval history: Patient has no complaint today Objective - Vital Signs Vital signs: Vital Signs - 12hr 06/06/18 06/06/18 06/06/18 20:00 20:15 21:23 Temperature 98.0 F Pulse Rate 73 Respiratory 20 Rate Blood Pressure 98/48 98/48 O2 Sat by Pulse 93 93 Oximetry 06/06/18 06/07/18 06/07/18 22:00 00:26 04:59 Temperature 98.5 F Pulse Rate 70 74 73 Respiratory 22 20 18 Rate Blood Pressure 98/48 102/46 109/59 O2 Sat by Pulse 91 91 Oximetry 06/07/18 06:16 Temperature 97.9 F Pulse Rate Respiratory Rate Blood Pressure O2 Sat by Pulse Oximetry - General Appearance General appearance: frail EENT: ATNC Respiratory: Present: Clear to Ascultation Cardiology: regular, S1S2 Gastrointestinal: normal, no tenderness, no distended Integumentary: warm and dry Neurologic: no focal deficit Psychiatric: cooperative - Lab 06/06/18 05:07 06/06/18 05:07 Most recent lab results Calcium 8.4 mg/dL (8.4-10.2) 06/06/18 05:07 Medications & Allergies - Medications Allergies/Adverse Reactions: Allergies heparin Allergy (Verified 04/21/18 14:26) lowers platelets Home Medications: Home Medications Medication Instructions Recorded Confirmed Last Taken Type AtorvaSTATin [Lipitor] 40 mg PO QHS #30 tab 03/27/18 06/01/18 05/31/18 Rx Esomeprazole Magnesium [Nexium] 40 mg PO DAILY #30 capsule. 03/27/18 06/01/18 05/31/18 Rx Folic Acid/Vit B Comp W-C [Renal 1 cap PO QDAY #60 capsule 03/27/18 06/01/18 05/31/18 Rx Caps] cloNIDine [Catapres] 0.3 mg PO TID 30 Days tablet 03/27/18 06/01/18 05/31/18 Rx hydrALAZINE [Apresoline TAB] 100 mg PO TID #90 tab 03/27/18 06/01/18 05/31/18 Rx traZODone [Desyrel] 100 mg PO QHS #30 tablet 03/27/18 06/01/18 05/30/18 Rx NIFEdipine [Adalat cc] 90 mg PO BID 04/11/18 06/01/18 Unknown History Diclofenac Sodium [Voltaren] 100 gm TP Q6H #1 gel..gram. 04/21/18 06/01/18 05/31/18 Rx ALBUTEROL NEB's [Proventil 0.083% 2.5 mg IH Q4HRT PRN nebu 05/19/18 06/01/18 05/31/18 Rx NEBS] ALPRAZolam [Xanax TAB] 0.5 mg PO Q12HR #20 tablet 05/19/18 06/01/18 05/31/18 Rx Aspirin EC [Aspirin Enteric Coated 81 mg PO QDAY tablet 05/19/18 06/01/18 05/31/18 Rx TAB] AtorvaSTATin [Lipitor] 40 mg PO QHS tablet 05/19/18 06/01/18 05/31/18 Rx Carvedilol [Coreg] 25 mg PO BID tablet 05/19/18 06/01/18 05/31/18 Rx Active Medications: Generic Name Dose Route Start Last Admin Trade Name Freq PRN Reason Stop Dose Admin Acetaminophen 650 mg 06/01/18 03:09 Tylenol PO Q4H PRN Pain MILD(1-3)/Fever >100.5/JENKINS Albuterol 2.5 mg 06/01/18 21:04 Proventil IH Q4HRT PRN Shortness Of Breath Alprazolam 0.5 mg 06/01/18 22:00 06/06/18 22:00 Xanax PO Not Given Q12HR CHONG Aspirin 81 mg 06/02/18 10:00 06/06/18 14:54 Halfprin Ec PO 81 mg QDAY CHONG Administration Atorvastatin Calcium 40 mg 06/01/18 22:00 06/06/18 21:03 Lipitor PO 40 mg QHS HCONG Administration Carvedilol 25 mg 06/01/18 22:00 06/06/18 22:00 Coreg PO Not Given BID CHONG Clonidine HCl 0.1 mg 06/02/18 08:00 06/06/18 20:00 Catapres PO Not Given TID CHONG Clonidine HCl 0.2 mg 06/02/18 08:00 06/06/18 20:00 Catapres PO Not Given TID [facility] Epoetin Davis 20,000 unit 06/03/18 10:43 06/03/18 11:58 Procrit IV 20,000 unit APRIL PRN Administration hemodialysis Hydralazine HCl 100 mg 06/02/18 08:00 06/06/18 20:00 Apresoline PO Not Given TID CHONG Lorazepam 1 mg 06/02/18 17:04 06/06/18 01:34 Ativan IV 1 mg Q6H PRN Administration Anxiety Morphine Sulfate 2 mg 06/01/18 03:09 06/07/18 02:30 Morphine IV 2 mg Q4H PRN Administration Pain, Moderate (4-6) Multivit/Ca Carb/B Cmplx/FA/Prenat 1 cap 06/02/18 10:00 06/06/18 14:54 Renal Caps PO 1 cap QDAY [facility] Administration Nifedipine 90 mg 06/01/18 22:00 06/06/18 17:57 Procardia Xl PO Not Given BID@0800,1700 [facility] Ondansetron HCl 4 mg 06/01/18 03:09 06/06/18 11:04 Zofran IV 4 mg Q8H PRN Administration Nausea And Vomiting Pantoprazole Sodium 40 mg 06/02/18 10:00 06/06/18 14:54 Protonix PO 40 mg DAILY CHONG Administration Sodium Chloride 10 ml 06/01/18 10:00 06/06/18 21:05 Sodium Chloride Flush Syringe 10 Ml IV 10 ml BID CHONG Administration Trazodone HCl 100 mg 06/01/18 22:00 06/06/18 22:00 Desyrel PO Not Given QHS CHONG
[2018-06-07] MEDS: CATAPRES PO SCH ×6 (08:06→22:06)
[2018-06-07] MEDS: APRESOLINE PO SCH ×3 (08:07→22:06)
--- NOTE | 2018-06-07 09:15 | Progress Note ---
Assessment and Plan Impression * End-stage renal disease on maintenance hemodialysis * Large pericardial effusion w/ early tamponade physiology * Recurrent pleural effusion * Cardiomyopathy EF 15% * Noncompliance * Hypertension * Anemia secondary to ESRD Recommendations * Patient did not have pericardiocentesis on Tuesday; scheduled for yesterday but cancelled due to K 6.0 * Patient is s/p HD yesterday per routine TTS HD schedule * UF as tolerated * Epogen TIW prn * Renal diet * Binders with diet * No IV, BP of any puncture in his access arm Subjective Principal diagnosis: Large pericardial effusion ESRD Pleural effusion Objective - Vital Signs Vital signs: Vital Signs - 12hr 06/06/18 06/06/18 06/07/18 21:23 22:00 00:26 Temperature 98.5 F Pulse Rate 70 74 Respiratory 22 20 Rate Blood Pressure 98/48 102/46 O2 Sat by Pulse 93 91 Oximetry 06/07/18 06/07/18 06/07/18 04:59 06:16 08:10 Temperature 97.9 F 97.8 F Pulse Rate 73 72 Respiratory 18 18 Rate Blood Pressure 109/59 109/62 O2 Sat by Pulse 91 91 Oximetry - Lab 06/06/18 05:07 06/06/18 05:07 Most recent lab results Calcium 8.4 mg/dL (8.4-10.2) 06/06/18 05:07 Medications & Allergies - Medications Allergies/Adverse Reactions: Allergies heparin Allergy (Verified 04/21/18 14:26) lowers platelets Home Medications: Home Medications Medication Instructions Recorded Confirmed Last Taken Type AtorvaSTATin [Lipitor] 40 mg PO QHS #30 tab 03/27/18 06/01/18 05/31/18 Rx Esomeprazole Magnesium [Nexium] 40 mg PO DAILY #30 capsule. 03/27/18 06/01/18 05/31/18 Rx Folic Acid/Vit B Comp W-C [Renal 1 cap PO QDAY #60 capsule 03/27/18 06/01/18 05/31/18 Rx Caps] cloNIDine [Catapres] 0.3 mg PO TID 30 Days tablet 03/27/18 06/01/18 05/31/18 Rx hydrALAZINE [Apresoline TAB] 100 mg PO TID #90 tab 03/27/18 06/01/18 05/31/18 Rx traZODone [Desyrel] 100 mg PO QHS #30 tablet 03/27/18 06/01/18 05/30/18 Rx NIFEdipine [Adalat cc] 90 mg PO BID 04/11/18 06/01/18 Unknown History Diclofenac Sodium [Voltaren] 100 gm TP Q6H #1 gel..gram. 04/21/18 06/01/18 05/31/18 Rx ALBUTEROL NEB's [Proventil 0.083% 2.5 mg IH Q4HRT PRN nebu 05/19/18 06/01/18 05/31/18 Rx NEBS] ALPRAZolam [Xanax TAB] 0.5 mg PO Q12HR #20 tablet 05/19/18 06/01/18 05/31/18 Rx Aspirin EC [Aspirin Enteric Coated 81 mg PO QDAY tablet 05/19/18 06/01/18 05/31/18 Rx TAB] AtorvaSTATin [Lipitor] 40 mg PO QHS tablet 05/19/18 06/01/18 05/31/18 Rx Carvedilol [Coreg] 25 mg PO BID tablet 05/19/18 06/01/18 05/31/18 Rx Active Medications: Generic Name Dose Route Start Last Admin Trade Name Freq PRN Reason Stop Dose Admin Acetaminophen 650 mg 06/01/18 03:09 Tylenol PO Q4H PRN Pain MILD(1-3)/Fever >100.5/JENKINS Albuterol 2.5 mg 06/01/18 21:04 Proventil IH Q4HRT PRN Shortness Of Breath Alprazolam 0.5 mg 06/01/18 22:00 06/06/18 22:00 Xanax PO Not Given Q12HR CHONG Aspirin 81 mg 06/02/18 10:00 06/06/18 14:54 Halfprin Ec PO 81 mg QDAY CHONG Administration Atorvastatin Calcium 40 mg 06/01/18 22:00 06/06/18 21:03 Lipitor PO 40 mg QHS CHONG Administration Carvedilol 25 mg 06/01/18 22:00 06/06/18 22:00 Coreg PO Not Given BID CHONG Clonidine HCl 0.1 mg 06/02/18 08:00 06/06/18 20:00 Catapres PO Not Given TID CHONG Clonidine HCl 0.2 mg 06/02/18 08:00 06/06/18 20:00 Catapres PO Not Given TID CHONG Epoetin Davis 20,000 unit 06/03/18 10:43 06/03/18 11:58 Procrit IV 20,000 unit APRIL PRN Administration hemodialysis Hydralazine HCl 100 mg 06/02/18 08:00 06/06/18 20:00 Apresoline PO Not Given TID CHONG Lorazepam 1 mg 06/02/18 17:04 06/06/18 01:34 Ativan IV 1 mg Q6H PRN Administration Anxiety Morphine Sulfate 2 mg 06/01/18 03:09 06/07/18 02:30 Morphine IV 2 mg Q4H PRN Administration Pain, Moderate (4-6) Multivit/Ca Carb/B Cmplx/FA/Prenat 1 cap 06/02/18 10:00 06/06/18 14:54 Renal Caps PO 1 cap QDAY CHONG Administration Nifedipine 90 mg 06/01/18 22:00 06/06/18 17:57 Procardia Xl PO Not Given BID@0800,1700 CHONG Ondansetron HCl 4 mg 06/01/18 03:09 06/06/18 11:04 Zofran IV 4 mg Q8H PRN Administration Nausea And Vomiting Pantoprazole Sodium 40 mg 06/02/18 10:00 06/06/18 14:54 Protonix PO 40 mg DAILY CHONG Administration Sodium Chloride 10 ml 06/01/18 10:00 06/06/18 21:05 Sodium Chloride Flush Syringe 10 Ml IV 10 ml BID CHONG Administration Trazodone HCl 100 mg 06/01/18 22:00 06/06/18 22:00 Desyrel PO Not Given QHS CHONG
[2018-06-07] MEDS: Renal Caps PO SCH (09:22)
[2018-06-07] MEDS: PROCARDIA XL PO SCH ×2 (09:23→17:39)
[2018-06-07] MEDS: COREG PO SCH ×2 (09:23→22:05)
[2018-06-07] MEDS: HALFPRIN EC PO SCH (09:23)
[2018-06-07] MEDS: XANAX PO SCH ×2 (09:24→22:04)
[2018-06-07] MEDS: SODIUM CHLORIDE FLUSH SYRINGE 10 ML IV SCH ×2 (09:24→22:07)
[2018-06-07] MEDS: PROTONIX PO SCH (09:24)
[2018-06-07 09:42] LABS: Calcium 8.5 mg/dL (8.4-10.2)
--- NOTE | 2018-06-07 13:20 | Progress Note ---
Assessment and Plan Volume overload Chest CTA scan reports a large pericardial effusion, large bilateral pleural effusion but no evidence of pulmonary embolism. ESRD on dialysis Hypertension Non-ischemic cardiomyopathy [facility] 07/2017: no significant coronary artery disease but a decreased left ventricular ejection fraction 15-20%. Chronic Ascities with intermittent paracentesis. Chronic anemia Chronic hypoxic respiratory failure on home oxygen Limited echocardiogram this admission reveals a large pericardial effusion with diastolic RV collapse suggesting early tamponade. There is a large pleural effusion. LVEF 50-55%. Recommendations: Dialysis for fluid management. NPO after midnight for pericardiocentesis in am Subjective Date of service: 06/07/18 Principal diagnosis: Large pericardial effusion ESRD Pleural effusion Interval history: Patient had a full breakfast 1 hour ago. No cardiac events overnight Objective Vital Signs Temp Pulse Resp BP Pulse Ox 06/07/18 13:06 66 114/64 06/07/18 13:05 66 114/64 06/07/18 12:38 97.5 F L 66 18 114/64 94 06/07/18 09:23 72 109/62 06/07/18 08:40 95 06/07/18 08:10 97.8 F 72 18 109/62 91 06/07/18 06:16 97.9 F 06/07/18 04:59 73 18 109/59 91 06/07/18 00:26 98.5 F 74 20 102/46 91 06/06/18 22:00 70 22 98/48 06/06/18 21:23 93 06/06/18 20:15 98.0 F 73 20 98/48 93 06/06/18 20:00 98/48 06/06/18 14:45 97.7 F 66 18 110/70 06/06/18 14:00 66 108/76 06/06/18 13:45 71 107/66 06/06/18 13:30 66 112/65 - Physical Examination General: No Apparent Distress HEENT: Positive: PERRL Neck: Positive: trachea midline Cardiac: Positive: Reg Rate and Rhythm Lungs: Positive: Normal Exam Neuro: Positive: Grossly Intact Abdomen: Positive: Unremarkable, Soft Extremities: Absent: edema - Labs and Meds Comprehensive Metabolic Panel 06/07/18 Range/Units 08:31 Sodium 132 L (137-145) mmol/L Potassium 4.8 (3.6-5.0) mmol/L Chloride 93.0 L (98-107) mmol/L Carbon Dioxide 27 (22-30) mmol/L BUN 32 H (9-20) mg/dL Creatinine 4.3 H (0.8-1.5) mg/dL Glucose 78 (75-100) mg/dL Calcium 8.5 (8.4-10.2) mg/dL - Imaging and Cardiology EKG: image reviewed
--- NOTE | 2018-06-07 14:01 | Progress Note ---
Assessment and Plan Assessment and plan: -- Pericardial effusion/no tamponade Procedure scheduled for today but pt was not NPO possible pericardiocentesis tomorrow per cardiology --Chronic combined systolic and diastolic congestive heart failure continue current management, cardiology following -- Pleural effusion Had recent Thoracentesis, Supportive care -- ESRD needing dialysis on hemodialysis Continue HD as per schedule, nephrology following -- Elevated troponin I level Nonspecific due to to Esrd, cardiology following --HTN (hypertension) Moderate control, continue current antihypertensives When necessary medications -- HLD (hyperlipidemia) Cont statins, low-cholesterol diet --GERD (gastroesophageal reflux disease) Cont PPI's -- DVT prophylaxis On Heparin renal dose Plan of care reviewed with the patient Possible discharge in 1-2 days if stable History Interval history: Patient seen and examined, medical records reviewed Impression the patient is scheduled for pericardiocentesis The patient was not nothing by mouth for unknown reason Re schedule for tomorrow Patient feels better no new complaints Vitals reviewed Hospitalist Physical - Constitutional Vitals: Temp Pulse Resp BP Pulse Ox 97.5 F L 66 18 114/64 94 06/07/18 12:38 06/07/18 13:06 06/07/18 12:38 06/07/18 13:06 06/07/18 12:38 General appearance: Present: no acute distress, well-nourished - EENT Eyes: Present: PERRL, EOM intact - Neck Neck: Present: supple, normal ROM - Respiratory Respiratory effort: normal Respiratory: bilateral: diminished, rales, negative: rhonchi, wheezing - Cardiovascular Rhythm: regular Heart Sounds: Present: S1 & S2 ( muffled heart sounds) - Extremities Extremities: no ischemia, pulses intact - Abdominal General gastrointestinal: soft, non-tender, non-distended, normal bowel sounds - Integumentary Integumentary: Present: clear, warm - Psychiatric Psychiatric: appropriate mood/affect, cooperative - Neurologic Neurologic: CNII-XII intact, moves all extremities Results - Labs CBC & Chem 7: 06/06/18 05:07 06/07/18 08:31 Labs: Laboratory Last Values WBC 7.6 K/mm3 (4.5-11.0) 06/06/18 05:07 RBC 2.53 M/mm3 (3.65-5.03) L 06/06/18 05:07 Hgb 7.0 gm/dl (11.8-15.2) L 06/06/18 05:07 Hct 21.7 % (35.5-45.6) L 06/06/18 05:07 MCV 86 fl (84-94) 06/06/18 05:07 MCH 28 pg (28-32) 06/06/18 05:07 MCHC 32 % (32-34) 06/06/18 05:07 RDW 19.6 % (13.2-15.2) H 06/06/18 05:07 Plt Count 255 K/mm3 (140-440) 06/06/18 05:07 Lymph % (Auto) 13.1 % (13.4-35.0) L 06/06/18 05:07 [place] % (Auto) 8.3 % (0.0-7.3) H 06/06/18 05:07 Eos % (Auto) 2.6 % (0.0-4.3) 06/06/18 05:07 Baso % (Auto) 1.4 % (0.0-1.8) 06/06/18 05:07 Lymph # 1.0 K/mm3 (1.2-5.4) L 06/06/18 05:07 [place] # 0.6 K/mm3 (0.0-0.8) 06/06/18 05:07 Eos # 0.2 K/mm3 (0.0-0.4) 06/06/18 05:07 Baso # 0.1 K/mm3 (0.0-0.1) 06/06/18 05:07 Seg Neutrophils % 74.6 % (40.0-70.0) H 06/06/18 05:07 Seg Neutrophils # 5.7 K/mm3 (1.8-7.7) 06/06/18 05:07 PT 16.2 Sec. (12.2-14.9) H 06/05/18 09:21 INR 1.22 (0.87-1.13) H 06/05/18 09:21 APTT 34.5 Sec. (24.2-36.6) 05/31/18 20:50 Sodium 132 mmol/L (137-145) L 06/07/18 08:31 Potassium 4.8 mmol/L (3.6-5.0) 06/07/18 08:31 Chloride 93.0 mmol/L (98-107) L 06/07/18 08:31 Carbon Dioxide 27 mmol/L (22-30) 06/07/18 08:31 Anion Gap 17 mmol/L 06/07/18 08:31 BUN 32 mg/dL (9-20) H 06/07/18 08:31 Creatinine 4.3 mg/dL (0.8-1.5) H 06/07/18 08:31 Estimated GFR 16 ml/min 06/07/18 08:31 BUN/Creatinine Ratio 7 % 06/07/18 08:31 Glucose 78 mg/dL (75-100) 06/07/18 08:31 Calcium 8.5 mg/dL (8.4-10.2) 06/07/18 08:31 Iron 30 ug/dL (49-181) L 06/01/18 10:24 TIBC 163 mcg/dL (250-450) L 06/01/18 10:24 Total Bilirubin 0.40 mg/dL (0.1-1.2) 05/31/18 20:50 AST 30 units/L (5-40) 05/31/18 20:50 ALT 12 units/L (7-56) 05/31/18 20:50 Alkaline Phosphatase 98 units/L (35-129) 05/31/18 20:50 Total Creatine Kinase 42 units/L (55-170) L 06/01/18 10:42 CK-MB (CK-2) 4.6 ng/mL (0.0-4.0) H 06/01/18 10:42 CK-MB (CK-2) Rel Index 10.9 (0-4) H 06/01/18 10:42 Troponin T 0.365 ng/mL (0.00-0.029) H* 06/01/18 10:42 Total Protein 8.7 g/dL (6.3-8.2) H 05/31/18 20:50 Albumin 3.4 g/dL (3.9-5) L 05/31/18 20:50 Albumin/Globulin Ratio 0.6 % 05/31/18 20:50 Triglycerides 57 mg/dL (2-149) 05/31/18 20:50 Cholesterol 92 mg/dL (50-199) 05/31/18 20:50 LDL Cholesterol Direct 41 mg/dL (50-130) L 05/31/18 20:50 HDL Cholesterol 39 mg/dL (40-59) L 05/31/18 20:50 Cholesterol/HDL Ratio 2.35 % 05/31/18 20:50 Active Medications - Current Medications Current Medications: Generic Name Dose Route Start Last Admin Trade Name Freq PRN Reason Stop Dose Admin Acetaminophen 650 mg 06/01/18 03:09 Tylenol PO Q4H PRN Pain MILD(1-3)/Fever >100.5/JENKINS Albuterol 2.5 mg 06/01/18 21:04 Proventil IH Q4HRT PRN Shortness Of Breath Alprazolam 0.5 mg 06/01/18 22:00 06/07/18 09:24 Xanax PO 0.5 mg Q12HR CHONG Administration Aspirin 81 mg 06/02/18 10:00 06/07/18 09:23 Halfprin Ec PO 81 mg QDAY CHONG Administration Atorvastatin Calcium 40 mg 06/01/18 22:00 06/06/18 21:03 Lipitor PO 40 mg QHS CHONG Administration Carvedilol 25 mg 06/01/18 22:00 06/07/18 09:23 Coreg PO 25 mg BID CHONG Administration Clonidine HCl 0.1 mg 06/02/18 08:00 06/07/18 13:05 Catapres PO 0.1 mg TID CHONG Administration Clonidine HCl 0.2 mg 06/02/18 08:00 06/07/18 13:06 Catapres PO 0.2 mg TID CHONG Administration Epoetin Davis 20,000 unit 06/03/18 10:43 06/03/18 11:58 Procrit IV 20,000 unit APRIL PRN Administration hemodialysis Hydralazine HCl 100 mg 06/02/18 08:00 06/07/18 08:07 Apresoline PO Not Given TID CHONG Lorazepam 1 mg 06/02/18 17:04 06/06/18 01:34 Ativan IV 1 mg Q6H PRN Administration Anxiety Morphine Sulfate 2 mg 06/01/18 03:09 06/07/18 13:05 Morphine IV 2 mg Q4H PRN Administration Pain, Moderate (4-6) Multivit/Ca Carb/B Cmplx/FA/Prenat 1 cap 06/02/18 10:00 06/07/18 09:22 Renal Caps PO 1 cap QDAY CHONG Administration Nifedipine 90 mg 06/01/18 22:00 06/07/18 09:23 Procardia Xl PO 90 mg BID@0800,1700 CHONG Administration Ondansetron HCl 4 mg 06/01/18 03:09 06/06/18 11:04 Zofran IV 4 mg Q8H PRN Administration Nausea And Vomiting Pantoprazole Sodium 40 mg 06/02/18 10:00 06/07/18 09:24 Protonix PO 40 mg DAILY CHONG Administration Sodium Chloride 10 ml 06/01/18 10:00 06/07/18 09:24 Sodium Chloride Flush Syringe 10 Ml IV 10 ml BID CHONG Administration Trazodone HCl 100 mg 06/01/18 22:00 06/06/18 22:00 Desyrel PO Not Given QHS CHONG
[2018-06-07] MEDS: DESYREL PO SCH (22:05)
[2018-06-08] MEDS: ATIVAN IV PRN (00:50)
[2018-06-08 00:59] LABS: Calcium 8.8 mg/dL (8.4-10.2)
[2018-06-08] MEDS: CATAPRES PO SCH ×6 (08:00→20:55)
[2018-06-08] MEDS: MORPHINE IV PRN ×4 (08:17→22:41)
[2018-06-08] MEDS: APRESOLINE PO SCH ×3 (08:30→20:52)
--- NOTE | 2018-06-08 09:38 | Progress Note ---
Assessment and Plan Impression * End-stage renal disease on maintenance hemodialysis * Large pericardial effusion w/ early tamponade physiology * Recurrent pleural effusion * Cardiomyopathy EF 15% * Noncompliance * Hypertension * Anemia secondary to ESRD Recommendations * Continue TTS HD schedule * UF as tolerated * Pericardiocentesis planned for today * Epogen TIW prn * Renal diet * Binders with diet * No IV, BP of any puncture in his access arm Subjective Date of service: 06/08/18 Principal diagnosis: Large pericardial effusion ESRD Pleural effusion Interval history: Patient reports abdominal discomfort Objective - Vital Signs Vital signs: Vital Signs - 12hr 06/07/18 06/07/18 06/07/18 22:00 22:05 22:06 Temperature Pulse Rate 70 70 70 Respiratory Rate Blood Pressure 115/64 115/64 O2 Sat by Pulse 96 Oximetry 06/08/18 06/08/18 06/08/18 00:50 04:49 08:40 Temperature 98.4 F 97.6 F 98.1 F Pulse Rate 76 72 76 Respiratory 24 16 18 Rate Blood Pressure 137/79 150/89 155/89 O2 Sat by Pulse 94 96 96 Oximetry - General Appearance General appearance: well-developed, chronically ill EENT: ATNC Respiratory: Present: Decreased Breath Sounds Cardiology: regular, S1S2 Gastrointestinal: normal, no tenderness, no distended Integumentary: warm and dry Neurologic: alert and oriented x3 Musculoskeletal: other (no edema) Psychiatric: cooperative - Lab 06/06/18 05:07 06/08/18 00:19 Most recent lab results Calcium 8.8 mg/dL (8.4-10.2) 06/08/18 00:19 Medications & Allergies - Medications Allergies/Adverse Reactions: Allergies heparin Allergy (Verified 04/21/18 14:26) lowers platelets Home Medications: Home Medications Medication Instructions Recorded Confirmed Last Taken Type AtorvaSTATin [Lipitor] 40 mg PO QHS #30 tab 03/27/18 06/01/18 05/31/18 Rx Esomeprazole Magnesium [Nexium] 40 mg PO DAILY #30 capsule. 03/27/18 06/01/18 05/31/18 Rx Folic Acid/Vit B Comp W-C [Renal 1 cap PO QDAY #60 capsule 03/27/18 06/01/18 05/31/18 Rx Caps] cloNIDine [Catapres] 0.3 mg PO TID 30 Days tablet 03/27/18 06/01/18 05/31/18 Rx hydrALAZINE [Apresoline TAB] 100 mg PO TID #90 tab 03/27/18 06/01/18 05/31/18 Rx traZODone [Desyrel] 100 mg PO QHS #30 tablet 03/27/18 06/01/18 05/30/18 Rx NIFEdipine [Adalat cc] 90 mg PO BID 04/11/18 06/01/18 Unknown History Diclofenac Sodium [Voltaren] 100 gm TP Q6H #1 gel..gram. 04/21/18 06/01/18 05/31/18 Rx ALBUTEROL NEB's [Proventil 0.083% 2.5 mg IH Q4HRT PRN nebu 05/19/18 06/01/18 05/31/18 Rx NEBS] ALPRAZolam [Xanax TAB] 0.5 mg PO Q12HR #20 tablet 05/19/18 06/01/18 05/31/18 Rx Aspirin EC [Aspirin Enteric Coated 81 mg PO QDAY tablet 05/19/18 06/01/18 05/31/18 Rx TAB] AtorvaSTATin [Lipitor] 40 mg PO QHS tablet 05/19/18 06/01/18 05/31/18 Rx Carvedilol [Coreg] 25 mg PO BID tablet 05/19/18 06/01/18 05/31/18 Rx Active Medications: Generic Name Dose Route Start Last Admin Trade Name Freq PRN Reason Stop Dose Admin Acetaminophen 650 mg 06/01/18 03:09 Tylenol PO Q4H PRN Pain MILD(1-3)/Fever >100.5/JENKINS Albuterol 2.5 mg 06/01/18 21:04 Proventil IH Q4HRT PRN Shortness Of Breath Alprazolam 0.5 mg 06/01/18 22:00 06/07/18 22:04 Xanax PO Not Given Q12HR CHONG Aspirin 81 mg 06/02/18 10:00 06/07/18 09:23 Halfprin Ec PO 81 mg QDAY CHONG Administration Atorvastatin Calcium 40 mg 06/01/18 22:00 06/07/18 22:06 Lipitor PO 40 mg QHS CHONG Administration Carvedilol 25 mg 06/01/18 22:00 06/07/18 22:05 Coreg PO Not Given BID CHONG Clonidine HCl 0.1 mg 06/02/18 08:00 06/07/18 22:06 Catapres PO Not Given TID CHONG Clonidine HCl 0.2 mg 06/02/18 08:00 06/07/18 22:05 Catapres PO Not Given TID CHONG Epoetin [place] 20,000 unit 06/03/18 10:43 06/03/18 11:58 Procrit IV 20,000 unit APRIL PRN Administration hemodialysis Hydralazine HCl 100 mg 06/02/18 08:00 06/07/18 22:06 Apresoline PO Not Given TID CHONG Lorazepam 1 mg 06/02/18 17:04 06/08/18 00:50 Ativan IV 1 mg Q6H PRN Administration Anxiety Morphine Sulfate 2 mg 06/01/18 03:09 06/08/18 08:17 Morphine IV 2 mg Q4H PRN Administration Pain, Moderate (4-6) Multivit/Ca Carb/B Cmplx/FA/Prenat 1 cap 06/02/18 10:00 06/07/18 09:22 Renal Caps PO 1 cap QDAY CHONG Administration Nifedipine 90 mg 06/01/18 22:00 06/07/18 17:39 Procardia Xl PO 90 mg BID@0800,1700 CHONG Administration Ondansetron HCl 4 mg 06/01/18 03:09 06/06/18 11:04 Zofran IV 4 mg Q8H PRN Administration Nausea And Vomiting Pantoprazole Sodium 40 mg 06/02/18 10:00 06/07/18 09:24 Protonix PO 40 mg DAILY CHONG Administration Sodium Chloride 10 ml 06/01/18 10:00 06/07/18 22:07 Sodium Chloride Flush Syringe 10 Ml IV 10 ml BID CHONG Administration Trazodone HCl 100 mg 06/01/18 22:00 06/07/18 22:05 Desyrel PO Not Given QHS CHONG
--- NOTE | 2018-06-08 10:17 | Progress Note ---
Assessment and Plan Assessment and plan: -- Pericardial effusion/no tamponade Pericardiocentesis is being rescheduled multiple times for various reasons Procedure scheduled for today, Cardiology canceled the procedure secondary to high potassium of 5.3 -- ESRD needing dialysis on hemodialysis Continue HD as per schedule, nephrology following -- Elevated troponin I level Nonspecific due to to Esrd, cardiology following --HTN (hypertension) Moderate control, continue current antihypertensives When necessary medications --Chronic combined systolic and diastolic congestive heart failure continue current management, cardiology following -- Pleural effusion Had recent Thoracentesis, Supportive care -- HLD (hyperlipidemia) Cont statins, low-cholesterol diet --GERD (gastroesophageal reflux disease) Cont PPI's -- DVT prophylaxis SCDs Plan of care reviewed with the patient Possible discharge in 1-2 days if stable History Interval history: Patient seen and examined medical records reviewed No new events reported by the nursing staff Patient was scheduled for pericardiocentesis Canceled and rescheduled for potassium of 5.3 by cardiology Vital signs noted Hospitalist Physical - Constitutional Vitals: Temp Pulse Resp BP Pulse Ox 98.1 F 76 18 155/89 96 06/08/18 08:40 06/08/18 08:40 06/08/18 08:40 06/08/18 08:40 06/08/18 08:40 General appearance: Present: no acute distress, well-nourished - EENT Eyes: Present: PERRL, EOM intact - Neck Neck: Present: supple, normal ROM - Respiratory Respiratory effort: normal Respiratory: bilateral: diminished, negative: rales, rhonchi, wheezing - Cardiovascular Rhythm: regular Heart Sounds: Present: S1 & S2 - Extremities Extremities: no ischemia, No edema - Abdominal General gastrointestinal: soft, non-tender, non-distended, normal bowel sounds - Integumentary Integumentary: Present: clear, warm - Psychiatric Psychiatric: appropriate mood/affect - Neurologic Neurologic: CNII-XII intact, moves all extremities Results - Labs CBC & Chem 7: 06/06/18 05:07 06/08/18 00:19 Labs: Laboratory Last Values WBC 7.6 K/mm3 (4.5-11.0) 06/06/18 05:07 RBC 2.53 M/mm3 (3.65-5.03) L 06/06/18 05:07 Hgb 7.0 gm/dl (11.8-15.2) L 06/06/18 05:07 Hct 21.7 % (35.5-45.6) L 06/06/18 05:07 MCV 86 fl (84-94) 06/06/18 05:07 MCH 28 pg (28-32) 06/06/18 05:07 MCHC 32 % (32-34) 06/06/18 05:07 RDW 19.6 % (13.2-15.2) H 06/06/18 05:07 Plt Count 255 K/mm3 (140-440) 06/06/18 05:07 Lymph % (Auto) 13.1 % (13.4-35.0) L 06/06/18 05:07 [place] % (Auto) 8.3 % (0.0-7.3) H 06/06/18 05:07 Eos % (Auto) 2.6 % (0.0-4.3) 06/06/18 05:07 Baso % (Auto) 1.4 % (0.0-1.8) 06/06/18 05:07 Lymph # 1.0 K/mm3 (1.2-5.4) L 06/06/18 05:07 [place] # 0.6 K/mm3 (0.0-0.8) 06/06/18 05:07 Eos # 0.2 K/mm3 (0.0-0.4) 06/06/18 05:07 Baso # 0.1 K/mm3 (0.0-0.1) 06/06/18 05:07 Seg Neutrophils % 74.6 % (40.0-70.0) H 06/06/18 05:07 Seg Neutrophils # 5.7 K/mm3 (1.8-7.7) 06/06/18 05:07 PT 16.2 Sec. (12.2-14.9) H 06/05/18 09:21 INR 1.22 (0.87-1.13) H 06/05/18 09:21 APTT 34.5 Sec. (24.2-36.6) 05/31/18 20:50 Sodium 132 mmol/L (137-145) L 06/08/18 00:19 Potassium 5.3 mmol/L (3.6-5.0) H 06/08/18 00:19 Chloride 90.9 mmol/L (98-107) L 06/08/18 00:19 Carbon Dioxide 28 mmol/L (22-30) 06/08/18 00:19 Anion Gap 18 mmol/L 06/08/18 00:19 BUN 41 mg/dL (9-20) H 06/08/18 00:19 Creatinine 5.3 mg/dL (0.8-1.5) H 06/08/18 00:19 Estimated GFR 13 ml/min 06/08/18 00:19 BUN/Creatinine Ratio 8 % 06/08/18 00:19 Glucose 79 mg/dL (75-100) 06/08/18 00:19 POC Glucose 85 (70-105) 06/08/18 00:56 Calcium 8.8 mg/dL (8.4-10.2) 06/08/18 00:19 Iron 30 ug/dL (49-181) L 06/01/18 10:24 TIBC 163 mcg/dL (250-450) L 06/01/18 10:24 Total Bilirubin 0.40 mg/dL (0.1-1.2) 05/31/18 20:50 AST 30 units/L (5-40) 05/31/18 20:50 ALT 12 units/L (7-56) 05/31/18 20:50 Alkaline Phosphatase 98 units/L (35-129) 05/31/18 20:50 Total Creatine Kinase 42 units/L (55-170) L 06/01/18 10:42 CK-MB (CK-2) 4.6 ng/mL (0.0-4.0) H 06/01/18 10:42 CK-MB (CK-2) Rel Index 10.9 (0-4) H 06/01/18 10:42 Troponin T 0.365 ng/mL (0.00-0.029) H* 06/01/18 10:42 Total Protein 8.7 g/dL (6.3-8.2) H 05/31/18 20:50 Albumin 3.4 g/dL (3.9-5) L 05/31/18 20:50 Albumin/Globulin Ratio 0.6 % 05/31/18 20:50 Triglycerides 57 mg/dL (2-149) 05/31/18 20:50 Cholesterol 92 mg/dL (50-199) 05/31/18 20:50 LDL Cholesterol Direct 41 mg/dL (50-130) L 05/31/18 20:50 HDL Cholesterol 39 mg/dL (40-59) L 05/31/18 20:50 Cholesterol/HDL Ratio 2.35 % 05/31/18 20:50 Active Medications - Current Medications Current Medications: Generic Name Dose Route Start Last Admin Trade Name Freq PRN Reason Stop Dose Admin Acetaminophen 650 mg 06/01/18 03:09 Tylenol PO Q4H PRN Pain MILD(1-3)/Fever >100.5/JENKINS Albuterol 2.5 mg 06/01/18 21:04 Proventil IH Q4HRT PRN Shortness Of Breath Alprazolam 0.5 mg 06/01/18 22:00 06/07/18 22:04 Xanax PO Not Given Q12HR [facility] Aspirin 81 mg 06/02/18 10:00 06/07/18 09:23 Halfprin Ec PO 81 mg QDAY CHONG Administration Atorvastatin Calcium 40 mg 06/01/18 22:00 06/07/18 22:06 Lipitor PO 40 mg QHS CHONG Administration Carvedilol 25 mg 06/01/18 22:00 06/07/18 22:05 Coreg PO Not Given BID [facility] Clonidine HCl 0.1 mg 06/02/18 08:00 06/07/18 22:06 Catapres PO Not Given TID [facility] Clonidine HCl 0.2 mg 06/02/18 08:00 06/07/18 22:05 Catapres PO Not Given TID [facility] Epoetin Davis 20,000 unit 06/03/18 10:43 06/03/18 11:58 Procrit IV 20,000 unit APRIL PRN Administration hemodialysis Hydralazine HCl 100 mg 06/02/18 08:00 06/07/18 22:06 Apresoline PO Not Given TID [facility] Lorazepam 1 mg 06/02/18 17:04 06/08/18 00:50 Ativan IV 1 mg Q6H PRN Administration Anxiety Morphine Sulfate 2 mg 06/01/18 03:09 06/08/18 08:17 Morphine IV 2 mg Q4H PRN Administration Pain, Moderate (4-6) Multivit/Ca Carb/B Cmplx/FA/Prenat 1 cap 06/02/18 10:00 06/07/18 09:22 Renal Caps PO 1 cap QDAY CHONG Administration Nifedipine 90 mg 06/01/18 22:00 06/07/18 17:39 Procardia Xl PO 90 mg BID@0800,1700 CHONG Administration Ondansetron HCl 4 mg 06/01/18 03:09 06/06/18 11:04 Zofran IV 4 mg Q8H PRN Administration Nausea And Vomiting Pantoprazole Sodium 40 mg 06/02/18 10:00 06/07/18 09:24 Protonix PO 40 mg DAILY CHONG Administration Sodium Chloride 10 ml 06/01/18 10:00 06/07/18 22:07 Sodium Chloride Flush Syringe 10 Ml IV 10 ml BID CHONG Administration Trazodone HCl 100 mg 06/01/18 22:00 06/07/18 22:05 Desyrel PO Not Given QHS CHONG
[2018-06-08] MEDS ORDERED: NACL 0.9 (PRIMING MACHINE ONLY DIALYSIS) MC ONE (11:08)
[2018-06-08] MEDS: ZOFRAN IV PRN ×2 (11:08→20:52)
[2018-06-08] MEDS: PROCRIT IV PRN (13:30)
--- NOTE | 2018-06-08 15:05 | Progress Note ---
Assessment and Plan Volume overload Chest CTA scan reports a large pericardial effusion, large bilateral pleural effusion but no evidence of pulmonary embolism. ESRD on dialysis Hypertension Non-ischemic cardiomyopathy [facility] 07/2017: no significant coronary artery disease but a decreased left ventricular ejection fraction 15-20%. Chronic Ascities with intermittent paracentesis. Chronic anemia Chronic hypoxic respiratory failure on home oxygen Limited echocardiogram this admission reveals a large pericardial effusion with diastolic RV collapse suggesting early tamponade. There is a large pleural effusion. LVEF 50-55%. Recommendations: Dialysis for fluid management. Continue medical therapy for nonischemic cardiomyopathy and chronic systolic heart failure. NPO after midnight for pericardiocentesis in am. Subjective Date of service: 06/08/18 Principal diagnosis: Large pericardial effusion ESRD Pleural effusion Interval history: Pericardiocentesis deferred due to hyperkalemia. Objective Vital Signs Temp Pulse Resp BP Pulse Ox 06/08/18 13:30 88 167/111 06/08/18 13:15 88 163/110 06/08/18 13:00 87 153/96 06/08/18 12:45 87 152/101 06/08/18 12:30 86 157/103 06/08/18 12:15 85 152/106 06/08/18 12:00 84 141/98 06/08/18 11:45 83 145/86 06/08/18 11:30 84 144/94 06/08/18 11:15 87 155/103 06/08/18 11:00 102 H 165/105 06/08/18 10:45 84 158/100 06/08/18 10:30 83 158/102 06/08/18 10:15 81 150/99 06/08/18 10:00 98.1 F 78 18 154/95 06/08/18 08:40 98.1 F 76 18 155/89 96 06/08/18 04:49 97.6 F 72 16 150/89 96 06/08/18 00:50 98.4 F 76 24 137/79 94 06/07/18 22:06 70 115/64 06/07/18 22:05 70 115/64 06/07/18 22:00 70 96 06/07/18 20:49 98.6 F 68 16 119/69 95 06/07/18 16:16 97.3 F L 67 18 110/61 91 - Physical Examination General: No Apparent Distress HEENT: Positive: PERRL Neck: Positive: trachea midline Cardiac: Positive: Reg Rate and Rhythm Lungs: Positive: Decreased Breath Sounds Neuro: Positive: Grossly Intact Extremities: Absent: edema - Labs and Meds Comprehensive Metabolic Panel 06/08/18 Range/Units 00:19 Sodium 132 L (137-145) mmol/L Potassium 5.3 H (3.6-5.0) mmol/L Chloride 90.9 L (98-107) mmol/L Carbon Dioxide 28 (22-30) mmol/L BUN 41 H (9-20) mg/dL Creatinine 5.3 H (0.8-1.5) mg/dL Glucose 79 (75-100) mg/dL Calcium 8.8 (8.4-10.2) mg/dL
[2018-06-08] MEDS: COREG PO SCH ×2 (16:32→22:40)
[2018-06-08] MEDS: HALFPRIN EC PO SCH (16:32)
[2018-06-08] MEDS: XANAX PO SCH ×2 (16:33→22:40)
[2018-06-08] MEDS: SODIUM CHLORIDE FLUSH SYRINGE 10 ML IV SCH ×2 (16:35→22:40)
[2018-06-08] MEDS: Renal Caps PO SCH (16:36)
[2018-06-08] MEDS: PROTONIX PO SCH (16:36)
[2018-06-08] MEDS: PROCARDIA XL PO SCH ×2 (16:38→18:28)
[2018-06-08] MEDS: DESYREL PO SCH (22:40)
[2018-06-09] MEDS: MORPHINE IV PRN ×3 (02:46→14:21)
[2018-06-09] MEDS: ZOFRAN IV PRN ×3 (06:43→21:10)
[2018-06-09] MEDS: APRESOLINE PO SCH ×3 (08:00→21:16)
[2018-06-09] MEDS: PROCARDIA XL PO SCH ×2 (08:00→16:56)
[2018-06-09] MEDS: CATAPRES PO SCH ×6 (08:00→21:17)
[2018-06-09] MEDS ORDERED: VERSED ONE (09:42)
[2018-06-09] MEDS: COREG PO SCH ×2 (10:00→21:18)
[2018-06-09] MEDS: Renal Caps PO SCH (10:00)
[2018-06-09] MEDS: PROTONIX PO SCH (10:00)
[2018-06-09] MEDS: SODIUM CHLORIDE FLUSH SYRINGE 10 ML IV SCH ×2 (10:00→21:16)
[2018-06-09] MEDS: XANAX PO SCH ×2 (10:00→21:17)
[2018-06-09] MEDS ORDERED: VERSED IV NR (10:00)
[2018-06-09] MEDS ORDERED: NACL 0.9% 500 ML IR ONE (10:02)
[2018-06-09] MEDS ORDERED: NACL 0.9% 500 ML 500 ML ONE ×2 (10:02→11:03)
[2018-06-09] MEDS ORDERED: XYLOCAINE 2% INFILTRATI ONE (10:02)
[2018-06-09] MEDS ORDERED: ZOFRAN ONE (10:13)
[2018-06-09] MEDS: SUBLIMAZE ONE ×2 (10:39→10:47)
[2018-06-09] MEDS: VERSED ONE ×2 (10:39→10:44)
[2018-06-09] MEDS ORDERED: SUBLIMAZE ONE (11:10)
--- NOTE | 2018-06-09 11:29 | Progress Note ---
Assessment and Plan Large pericardial effusion s/p pericardiocentesis with drainage of 1480 cc of hemorrhagic pericardial fluid Large bilateral pleural effusions ESRD on dialysis Hypertension Non-ischemic cardiomyopathy [facility] 07/2017: no significant coronary artery disease but a decreased left ventricular ejection fraction 15-20%. Chronic Ascites with intermittent paracentesis. Chronic anemia Chronic hypoxic respiratory failure on home oxygen Limited echocardiogram post pericardicentesis revealing complete fluid resolution as well as resolution of tamponade physiology Post pericardiocentesis intrapericardial pressure was measured at 4 mm Hg Recommendations: Dialysis for fluid management. Patient may also benefit from US guided thoracentesis Follow-up pericardial culture, cytology and cell count Discussed with Dr Graham Subjective Date of service: 06/09/18 Principal diagnosis: Large pericardial effusion ESRD Pleural effusion Interval history: Patient underwent pericardiocentesis today with no complications Objective Vital Signs Temp Pulse Resp BP BP Pulse Ox 06/09/18 09:08 91 06/09/18 08:07 98.7 F 89 16 114/64 97 06/09/18 04:25 82 06/09/18 04:11 98.1 F 89 18 126/67 90 06/08/18 23:57 98.1 F 94 H 18 126/70 94 06/08/18 22:40 99 H 06/08/18 20:55 104 H 159/96 06/08/18 20:53 104 H 159/96 06/08/18 20:00 98.5 F 95 H 18 159/96 98 06/08/18 19:30 93 H 06/08/18 16:32 80 154/90 06/08/18 16:15 98.6 F 92 H 18 154/99 100 06/08/18 14:30 98.0 F 88 18 166/108 06/08/18 14:00 91 H 157/101 06/08/18 13:45 89 162/111 06/08/18 13:30 88 167/111 06/08/18 13:15 88 163/110 06/08/18 13:00 87 153/96 06/08/18 12:45 87 152/101 06/08/18 12:30 86 157/103 06/08/18 12:15 85 152/106 06/08/18 12:00 84 141/98 06/08/18 11:45 83 145/86 06/08/18 11:30 84 144/94 - Physical Examination General: No Apparent Distress HEENT: Positive: PERRL Neck: Positive: trachea midline Cardiac: Positive: Reg Rate and Rhythm Lungs: Positive: Decreased Breath Sounds Neuro: Positive: Grossly Intact Abdomen: Positive: Unremarkable, Soft Extremities: Absent: edema - Labs and Meds Comprehensive Metabolic Panel 06/09/18 Range/Units 08:22 Potassium 4.3 (3.6-5.0) mmol/L - Imaging and Cardiology EKG: image reviewed
--- NOTE | 2018-06-09 12:15 | XRay Report ---
AP CHEST: HISTORY: Post pericardiocentesis Moderate cardiomegaly, mild pulmonary venous congestion and small to medium bilateral pleural effusions are identified. There is compressive atelectasis at the lung bases versus infiltrate. No pneumothorax or pneumomediastinum. IMPRESSION: CHF.
[2018-06-09 13:41] LABS: Total Cells Counted 100 /mm3
[2018-06-09] MEDS: HALFPRIN EC PO SCH (14:16)
--- NOTE | 2018-06-09 15:36 | Progress Note ---
Assessment and Plan - Patient Problems (1) End stage renal disease Current Visit: No Status: Acute Plan to address problem: End-stage renal disease Access : Left arm AV fistula continue Aggressive hemodialysis Pericardial effusion (2) Acute exacerbation of CHF (congestive heart failure) Current Visit: No Status: Acute Qualifiers: Heart failure type: combined systolic and diastolic Qualified Code(s): I50.43 - Acute on chronic combined systolic (congestive) and diastolic (congestive) heart failure Plan to address problem: Acute CHF exacerbation with systolic dysfunction Reviewed echocardiogram with reduced ejection fraction 35-40% Ultrafiltration with dialysis (3) Acute on chronic respiratory failure with hypoxemia Current Visit: No Status: Acute Plan to address problem: Acute on chronic respiratory failure with hypoxemia Currently on 4 L of oxygen I reviewed CT bilateral pleural effusions Plan for possible thoracentesis is as well Ultrafiltration :3L (4) Anemia Current Visit: No Status: Acute Qualifiers: Chronic kidney disease stage: on chronic dialysis Plan to address problem: Anemia secondary to chronic kidney disease Hb: 7.5 g per DL We'll give epogen 20,000 units IV 3 x weekly. Subjective Principal diagnosis: Large pericardial effusion ESRD Pleural effusion Interval history: 28 year old with medical history of HTN , Systolic CHF , ESRD admitted with shortness of breath and found to have pericardial effusion seen today complains of vomitting Nurse has notified primary team brown colored emesis in commode no periperal edema. Objective - Vital Signs Vital signs: Vital Signs - 12hr 06/09/18 06/09/18 06/09/18 04:11 04:25 08:07 Temperature 98.1 F 98.7 F Pulse Rate 89 82 89 Respiratory 18 16 Rate Respiratory Rate [Abdomen] Respiratory Rate [Chest] Respiratory Rate [ generalized] Blood Pressure 126/67 114/64 O2 Sat by Pulse 90 97 Oximetry 06/09/18 06/09/18 06/09/18 09:08 12:03 12:17 Temperature Pulse Rate 80 Respiratory Rate Respiratory 20 Rate [Abdomen] Respiratory 20 Rate [Chest] Respiratory 20 Rate [ generalized] Blood Pressure O2 Sat by Pulse 91 Oximetry 06/09/18 06/09/18 06/09/18 12:26 14:18 14:21 Temperature 98.2 F Pulse Rate 86 76 Respiratory 20 20 Rate Respiratory Rate [Abdomen] Respiratory Rate [Chest] Respiratory Rate [ generalized] Blood Pressure 120/61 120/66 O2 Sat by Pulse 98 Oximetry - General Appearance General appearance: well-developed EENT: ATNC, PERRL Neck: no JVD Respiratory: Present: Decreased Breath Sounds Cardiology: regular, S1S2 Gastrointestinal: normal, normoactive bowel sounds Integumentary: no rash Neurologic: alert and oriented x3, CN 3-12 intact Psychiatric: agitated - Lab 06/06/18 05:07 06/09/18 08:22 Most recent lab results Calcium 8.8 mg/dL (8.4-10.2) 06/08/18 00:19 - Imaging Chest x-ray: image reviewed (I reviewed CXR with cardiomegaly , patchy opacities. ) Medications & Allergies - Medications Allergies/Adverse Reactions: Allergies heparin Allergy (Verified 04/21/18 14:26) lowers platelets Home Medications: Home Medications Medication Instructions Recorded Confirmed Last Taken Type AtorvaSTATin [Lipitor] 40 mg PO QHS #30 tab 03/27/18 06/01/18 05/31/18 Rx Esomeprazole Magnesium [Nexium] 40 mg PO DAILY #30 capsule. 03/27/18 06/01/18 05/31/18 Rx Folic Acid/Vit B Comp W-C [Renal 1 cap PO QDAY #60 capsule 03/27/18 06/01/18 05/31/18 Rx Caps] cloNIDine [Catapres] 0.3 mg PO TID 30 Days tablet 03/27/18 06/01/18 05/31/18 Rx hydrALAZINE [Apresoline TAB] 100 mg PO TID #90 tab 03/27/18 06/01/18 05/31/18 Rx traZODone [Desyrel] 100 mg PO QHS #30 tablet 03/27/18 06/01/18 05/30/18 Rx NIFEdipine [Adalat cc] 90 mg PO BID 04/11/18 06/01/18 Unknown History Diclofenac Sodium [Voltaren] 100 gm TP Q6H #1 gel..gram. 04/21/18 06/01/18 05/31/18 Rx ALBUTEROL NEB's [Proventil 0.083% 2.5 mg IH Q4HRT PRN nebu 05/19/18 06/01/18 05/31/18 Rx NEBS] ALPRAZolam [Xanax TAB] 0.5 mg PO Q12HR #20 tablet 05/19/18 06/01/18 05/31/18 Rx Aspirin EC [Aspirin Enteric Coated 81 mg PO QDAY tablet 05/19/18 06/01/18 05/31/18 Rx TAB] AtorvaSTATin [Lipitor] 40 mg PO QHS tablet 05/19/18 06/01/18 05/31/18 Rx Carvedilol [Coreg] 25 mg PO BID tablet 05/19/18 06/01/18 05/31/18 Rx Active Medications: Generic Name Dose Route Start Last Admin Trade Name Freq PRN Reason Stop Dose Admin Acetaminophen 650 mg 06/01/18 03:09 Tylenol PO Q4H PRN Pain MILD(1-3)/Fever >100.5/JENKINS Albuterol 2.5 mg 06/01/18 21:04 Proventil IH Q4HRT PRN Shortness Of Breath Alprazolam 0.5 mg 06/01/18 22:00 06/09/18 10:00 Xanax PO Not Given Q12HR [facility]ONG Aspirin 81 mg 06/02/18 10:00 06/09/18 14:16 Halfprin Ec PO 81 mg QDAY CHONG Administration Atorvastatin Calcium 40 mg 06/01/18 22:00 06/08/18 22:39 Lipitor PO 40 mg QHS CHONG Administration Carvedilol 25 mg 06/01/18 22:00 06/09/18 10:00 Coreg PO Not Given BID CHONG Clonidine HCl 0.1 mg 06/02/18 08:00 06/09/18 14:18 Catapres PO Not Given TID CHONG Clonidine HCl 0.2 mg 06/02/18 08:00 06/09/18 14:18 Catapres PO Not Given TID [facility] Epoetin [place] 20,000 unit 06/03/18 10:43 06/08/18 13:30 Procrit IV 20,000 unit APRIL PRN Administration hemodialysis Hydralazine HCl 100 mg 06/02/18 08:00 06/09/18 14:18 Apresoline PO Not Given TID [facility]ONG Lorazepam 1 mg 06/02/18 17:04 06/08/18 00:50 Ativan IV 1 mg Q6H PRN Administration Anxiety Morphine Sulfate 2 mg 06/01/18 03:09 06/09/18 14:21 Morphine IV 2 mg Q4H PRN Administration Pain, Moderate (4-6) Multivit/Ca Carb/B Cmplx/FA/Prenat 1 cap 06/02/18 10:00 06/09/18 10:00 Renal Caps PO Not Given QDAY [facility] Nifedipine 90 mg 06/01/18 22:00 06/09/18 08:00 Procardia Xl PO Not Given BID@0800,1700 [facility] Ondansetron HCl 4 mg 06/01/18 03:09 06/09/18 14:22 Zofran IV 4 mg Q8H PRN Administration Nausea And Vomiting Pantoprazole Sodium 40 mg 06/02/18 10:00 06/09/18 10:00 Protonix PO Not Given DAILY [facility] Sodium Chloride 10 ml 06/01/18 10:00 06/09/18 10:00 Sodium Chloride Flush Syringe 10 Ml IV Not Given BID [facility] Trazodone HCl 100 mg 06/01/18 22:00 06/08/18 22:40 Desyrel PO Not Given QHS [facility]
[2018-06-09] MEDS ORDERED: PHENERGAN PO PRN (15:55)
--- NOTE | 2018-06-09 16:37 | Progress Note ---
Assessment and Plan Assessment and plan: --Intractable nausea vomiting: antiemetics, IV fluids, supportive care If no improvement. Check CT abdomen and pelvis Diet as tolerated -- Pericardial effusion/no tamponade Pericardiocentesis and removal of 1400 mL pericardial fluid Sent for analysis, patient feels slightly better Continue supportive care -- Bilateral Pleural effusion Had recent Thoracentesis, Supportive care Consult pulmonary, consider thoracentesis if needed -- ESRD needing dialysis on hemodialysis Continue HD as per schedule, nephrology following -- Elevated troponin I level Nonspecific due to to Esrd, cardiology following --HTN (hypertension) Moderate control, continue current antihypertensives When necessary medications --Chronic combined systolic and diastolic congestive heart failure continue current management, cardiology following -- HLD (hyperlipidemia) Cont statins, low-cholesterol diet --GERD (gastroesophageal reflux disease) Cont PPI's -- DVT prophylaxis SCDs Plan of care reviewed with the patient,his father at the bedside and his nurse History Interval history: Patient seen and examined medical records reviewed Patient underwent pericardiocentesis and removal of 1400 mL pericardial fluid Sent for analysis, patient feels slightly better Patient complains of nausea vomiting, brown fluid In mild distress Vital signs reviewed Hospitalist Physical - Constitutional Vitals: Temp Pulse Resp BP Pulse Ox 98.2 F 76 20 120/66 98 06/09/18 12:26 06/09/18 14:18 06/09/18 14:51 06/09/18 14:18 06/09/18 12:26 General appearance: Present: mild distress, well-nourished - EENT Eyes: Present: PERRL, EOM intact - Neck Neck: Present: supple, normal ROM - Respiratory Respiratory effort: normal Respiratory: bilateral: diminished, rales, negative: rhonchi, wheezing - Cardiovascular Rhythm: regular Heart Sounds: Present: S1 & S2 - Extremities Extremities: no ischemia, No edema - Abdominal General gastrointestinal: soft, non-tender, non-distended, normal bowel sounds - Integumentary Integumentary: Present: clear, warm - Psychiatric Psychiatric: appropriate mood/affect, cooperative - Neurologic Neurologic: moves all extremities Results - Labs CBC & Chem 7: 06/06/18 05:07 06/09/18 08:22 Labs: Laboratory Last Values WBC 7.6 K/mm3 (4.5-11.0) 06/06/18 05:07 RBC 2.53 M/mm3 (3.65-5.03) L 06/06/18 05:07 Hgb 7.0 gm/dl (11.8-15.2) L 06/06/18 05:07 Hct 21.7 % (35.5-45.6) L 06/06/18 05:07 MCV 86 fl (84-94) 06/06/18 05:07 MCH 28 pg (28-32) 06/06/18 05:07 MCHC 32 % (32-34) 06/06/18 05:07 RDW 19.6 % (13.2-15.2) H 06/06/18 05:07 Plt Count 255 K/mm3 (140-440) 06/06/18 05:07 Lymph % (Auto) 13.1 % (13.4-35.0) L 06/06/18 05:07 [place] % (Auto) 8.3 % (0.0-7.3) H 06/06/18 05:07 Eos % (Auto) 2.6 % (0.0-4.3) 06/06/18 05:07 Baso % (Auto) 1.4 % (0.0-1.8) 06/06/18 05:07 Lymph # 1.0 K/mm3 (1.2-5.4) L 06/06/18 05:07 [place] # 0.6 K/mm3 (0.0-0.8) 06/06/18 05:07 Eos # 0.2 K/mm3 (0.0-0.4) 06/06/18 05:07 Baso # 0.1 K/mm3 (0.0-0.1) 06/06/18 05:07 Seg Neutrophils % 74.6 % (40.0-70.0) H 06/06/18 05:07 Seg Neutrophils # 5.7 K/mm3 (1.8-7.7) 06/06/18 05:07 PT 16.2 Sec. (12.2-14.9) H 06/05/18 09:21 INR 1.22 (0.87-1.13) H 06/05/18 09:21 APTT 34.5 Sec. (24.2-36.6) 05/31/18 20:50 Sodium 132 mmol/L (137-145) L 06/08/18 00:19 Potassium 4.3 mmol/L (3.6-5.0) 06/09/18 08:22 Chloride 90.9 mmol/L (98-107) L 06/08/18 00:19 Carbon Dioxide 28 mmol/L (22-30) 06/08/18 00:19 Anion Gap 18 mmol/L 06/08/18 00:19 BUN 41 mg/dL (9-20) H 06/08/18 00:19 Creatinine 5.3 mg/dL (0.8-1.5) H 06/08/18 00:19 Estimated GFR 13 ml/min 06/08/18 00:19 BUN/Creatinine Ratio 8 % 06/08/18 00:19 Glucose 79 mg/dL (75-100) 06/08/18 00:19 POC Glucose 77 (70-105) 06/09/18 06:25 Calcium 8.8 mg/dL (8.4-10.2) 06/08/18 00:19 Iron 30 ug/dL (49-181) L 06/01/18 10:24 TIBC 163 mcg/dL (250-450) L 06/01/18 10:24 Total Bilirubin 0.40 mg/dL (0.1-1.2) 05/31/18 20:50 AST 30 units/L (5-40) 05/31/18 20:50 ALT 12 units/L (7-56) 05/31/18 20:50 Alkaline Phosphatase 98 units/L (35-129) 05/31/18 20:50 Total Creatine Kinase 42 units/L (55-170) L 06/01/18 10:42 CK-MB (CK-2) 4.6 ng/mL (0.0-4.0) H 06/01/18 10:42 CK-MB (CK-2) Rel Index 10.9 (0-4) H 06/01/18 10:42 Troponin T 0.365 ng/mL (0.00-0.029) H* 06/01/18 10:42 Total Protein 8.7 g/dL (6.3-8.2) H 05/31/18 20:50 Albumin 3.4 g/dL (3.9-5) L 05/31/18 20:50 Albumin/Globulin Ratio 0.6 % 05/31/18 20:50 Triglycerides 57 mg/dL (2-149) 05/31/18 20:50 Cholesterol 92 mg/dL (50-199) 05/31/18 20:50 LDL Cholesterol Direct 41 mg/dL (50-130) L 05/31/18 20:50 HDL Cholesterol 39 mg/dL (40-59) L 05/31/18 20:50 Cholesterol/HDL Ratio 2.35 % 05/31/18 20:50 Fluid Type Pericardial 06/09/18 10:57 Fluid Color Bloody 06/09/18 10:57 Fluid Appearance Bloody 06/09/18 10:57 Fluid WBC 2090 /mm3 06/09/18 10:57 Fluid RBC 07972 /mm3 06/09/18 10:57 Fluid Seg Neutrophils 52.0 % 06/09/18 10:57 Fluid Lymphocytes 7.0 % 06/09/18 10:57 Fluid Reactive Lymphs 0 % 06/09/18 10:57 Fluid Monocytes 41.0 % 06/09/18 10:57 Fluid Eosinophils 0 % 06/09/18 10:57 Fluid Basophils 0 % 06/09/18 10:57 Active Medications - Current Medications Current Medications: Generic Name Dose Route Start Last Admin Trade Name Freq PRN Reason Stop Dose Admin Acetaminophen 650 mg 06/01/18 03:09 Tylenol PO Q4H PRN Pain MILD(1-3)/Fever >100.5/JENKINS Albuterol 2.5 mg 06/01/18 21:04 Proventil IH Q4HRT PRN Shortness Of Breath Alprazolam 0.5 mg 06/01/18 22:00 06/09/18 10:00 Xanax PO Not Given Q12HR CHONG Aspirin 81 mg 06/02/18 10:00 06/09/18 14:16 Halfprin Ec PO 81 mg QDAY CHONG Administration Atorvastatin Calcium 40 mg 06/01/18 22:00 06/08/18 22:39 Lipitor PO 40 mg QHS CHONG Administration Carvedilol 25 mg 06/01/18 22:00 06/09/18 10:00 Coreg PO Not Given BID CHONG Clonidine HCl 0.1 mg 06/02/18 08:00 06/09/18 14:18 Catapres PO Not Given TID CHONG Clonidine HCl 0.2 mg 06/02/18 08:00 06/09/18 14:18 Catapres PO Not Given TID [facility] Epoetin Davis 20,000 unit 06/03/18 10:43 06/08/18 13:30 Procrit IV 20,000 unit APRIL PRN Administration hemodialysis Hydralazine HCl 100 mg 06/02/18 08:00 06/09/18 14:18 Apresoline PO Not Given TID [facility] Hydromorphone HCl 0.5 mg 06/09/18 15:56 Dilaudid IV Q4H PRN Pain , Severe (7-10) Lorazepam 1 mg 06/02/18 17:04 06/08/18 00:50 Ativan IV 1 mg Q6H PRN Administration Anxiety Multivit/Ca Carb/B Cmplx/FA/Prenat 1 cap 06/02/18 10:00 06/09/18 10:00 Renal Caps PO Not Given QDAY [facility] Nifedipine 90 mg 06/01/18 22:00 06/09/18 08:00 Procardia Xl PO Not Given BID@0800,1700 [facility] Ondansetron HCl 4 mg 06/01/18 03:09 06/09/18 14:22 Zofran IV 4 mg Q8H PRN Administration Nausea And Vomiting Pantoprazole Sodium 40 mg 06/02/18 10:00 06/09/18 10:00 Protonix PO Not Given DAILY [facility] Promethazine HCl 25 mg 06/09/18 15:55 Phenergan PO Q6H PRN Nausea And Vomiting Sodium Chloride 10 ml 06/01/18 10:00 06/09/18 10:00 Sodium Chloride Flush Syringe 10 Ml IV Not Given BID [facility] Trazodone HCl 100 mg 06/01/18 22:00 06/08/18 22:40 Desyrel PO Not Given QHS [facility] Nutrition/Malnutrition Assess - Dietary Evaluation Nutrition/Malnutrition Findings: Nutrition Notes Start: 06/08/18 13:47 Freq: Status: Active Protocol: Document 06/08/18 13:48 RD (Rec: 06/08/18 13:55 RD [email or web address]) Co-Sign 06/08/18 13:48 LP Nutrition Notes Need for Assessment generated from: LOS Initial or Follow up Brief Note Current Diagnosis Hypertension,Respiratory Failure,Hyperlipidemia Other Pertinent Diagnosis ESRD on HD, anemia, GERD Current Diet NPO Subjective/Other Information RD screen for LOS. Pt reports great appetite and eating all of meals. No trouble chewing/ swallowing. Reported intakes average 83%. Nutrition Intervention Revisit per MD consult or patient Sign Off request:
[2018-06-09] MEDS: DILAUDID IV PRN ×2 (16:57→21:10)
[2018-06-09] MEDS: DESYREL PO SCH (21:18)
--- NOTE | 2018-06-09 22:08 | Procedure Note ---
PERICARDIOCENTESIS REPORT INDICATION: Large pericardial effusion with early echocardiographic signs of tamponade. DESCRIPTION OF PROCEDURE: After obtaining written consent, the patient was draped using sterile technique. A 2% lidocaine was injected into the subxiphoid area. Using the Seldinger technique and under ultrasound guidance, the pericardial space was accessed. The positioning was verified with agitated saline injected into the pericardial space and documented by ultrasound. Then, a J-wire was inserted and positioned into the pericardial space. Positioning also was verified using x-ray. A dilator was then introduced and followed by a pigtail catheter. A 1480 mL of hemorrhagic pericardial fluid was drained. No complications occurred during the procedure. At the end of the procedure, the intrapericardial pressure was measured at 4 mmHg. The patient tolerated the procedure well. Estimated blood loss was minimal and the specimen removed was just the pericardial fluid. Total sedation administered was 3 mg of IV Versed and 50 mcg of IV fentanyl. The physician and patient [id number] sedation start time was 10:45 a.m. The physician and patient [id number] sedation stop time was 11:20 a.m. Total sedation time was 35 minutes. IMPRESSION: Successful pericardiocentesis with drainage of 1480 mL of hemorrhagic pericardial fluid. The fluid will be submitted for cell count, culture as well as cytology. RECOMMENDATION: This patient will be recommended for a chest x-ray as well as a repeat limited echo tomorrow to verify the absence of fluid reaccumulation. JOB# [id number] [facility]
[2018-06-10] MEDS: NACL 0.9% 1000 ML 1,000 ML IV SCH (01:00)
[2018-06-10] MEDS: ATIVAN IV PRN ×2 (01:01→17:55)
[2018-06-10] MEDS: ZOFRAN IV PRN ×4 (01:01→14:11)
[2018-06-10] MEDS: DILAUDID IV PRN ×5 (03:12→22:45)
--- NOTE | 2018-06-10 06:27 | Cat Scan Report ---
PROCEDURE: CT ABDOMEN PELVIS WO CON TECHNIQUE: Routine axial imaging was obtained of the abdomen and pelvis without oral or IV contrast. Sagittal and coronal reconstructions were reviewed. HISTORY: continuous N V of dark greenish brown emesis COMPARISONS: 05/17/2018 FINDINGS: The study is extremely limited without IV or oral contrast. The lung bases reveal moderate to large pleural effusions with atelectatic changes in both lower lobe s. There is stable moderate to large pericardial effusion. The heart size is normal. There is a moder ate size hiatal hernia. The spleen is at the upper limits of normal in size. The gallbladder is not distended. The liver is n ormal in size and is not show any focal lesions. There is no definite biliary tree dilatation. The ki dneys are severely atrophic. The adrenal glands are not enlarged. The pancreatic head is not well see n. The body and tail appear normal. There is moderate distention of multiple small bowel loops with air-fluid levels which has developed since the previous study. The stomach is also distended with fluid. The findings are suspicious for a partial mechanical small bowel obstruction. The colon is decompressed. There is very mild ascites. I n the pelvis the prostate gland and bladder appear normal. The surrounding bones and soft tissues rev eal subcutaneous edema around the abdomen and pelvis compatible with anasarca. IMPRESSION: Partial mechanical small bowel obstruction which has developed since the previous study. Bilateral moderately large pleural effusions with bibasilar atelectasis. Stable moderate to large pericardial effusion. Atrophic kidneys. The entire pancreas is not well seen for evaluation. Mild ascites. Anasarca. Extremity Limited study without IV or oral contrast enhancement.. This document is electronically signed by Alejo Coffman MD., June 10 2018 06:25:13 AM ET
[2018-06-10 07:33] LABS: Basophils % (Auto) 0.7 % (0.0-1.8); Eosinophils % (Auto) 1.1 % (0.0-4.3); Hematocrit 30.1 % (35.5-45.6); Hemoglobin 9.6 gm/dl (11.8-15.2); Lymphocytes # (Auto) 0.3 K/mm3 (1.2-5.4); Lymphocytes % (Auto) 8.5 % (13.4-35.0); Mean Corpuscular HGB Conc 32 % (32-34); Mean Corpuscular Volume 85 fl (84-94); Monocytes # (Auto) 0.5 K/mm3 (0.0-0.8); Monocytes % (Auto) 14.7 % (0.0-7.3); Platelet Count 338 K/mm3 (140-440); Red Blood Count 3.53 M/mm3 (3.65-5.03); Red Cell Distribution Width 18.8 % (13.2-15.2)
[2018-06-10 07:47] LABS: Calcium 8.4 mg/dL (8.4-10.2)
--- NOTE | 2018-06-10 07:51 | Progress Note ---
Assessment and Plan Assessment and plan: --Partial Small bowel obstruction Nothing by mouth, NG tube placement, intermittent suction as needed, surgery consult --Intractable nausea vomiting: Partial Small bowel obstruction, NPO antiemetics, IV fluids, supportive care -- Pericardial effusion/no tamponade Pericardiocentesis and removal of 1400 mL pericardial fluid Sent for analysis, patient feels slightly better Moderate pericardial effusion on CT abdomen done today -- Bilateral Pleural effusion Had recent Thoracentesis, Supportive care Consult pulmonary PRN , consider thoracentesis if needed -- ESRD needing dialysis on hemodialysis Continue HD as per schedule, nephrology following -- Elevated troponin I level Nonspecific due to to Esrd, cardiology following --HTN (hypertension) Moderate control, continue current antihypertensives When necessary medications --Chronic combined systolic and diastolic congestive heart failure continue current management, cardiology following -- HLD (hyperlipidemia) Cont statins, low-cholesterol diet --GERD (gastroesophageal reflux disease) Cont PPI's -- DVT prophylaxis SCDs Along with patient's nurse Plan of care reviewed with the patient and his mother at the bedside Answered all their questions History Interval history: Patient's mother at the bedside Patient seen and examined this morning medical records reviewed Patient continues to have nausea vomiting, and abdominal pain CT abdomen and pelvis. Show partial small bowel obstruction Patient complains of mild nausea Vital signs reviewed Hospitalist Physical - Constitutional Vitals: Temp Pulse Resp BP Pulse Ox 98.6 F 96 H 20 111/53 100 06/10/18 04:13 06/10/18 04:25 06/10/18 04:13 06/10/18 04:13 06/10/18 04:13 General appearance: Present: mild distress, cachectic, disheveled - EENT Eyes: Present: PERRL, EOM intact - Neck Neck: Present: supple, normal ROM - Respiratory Respiratory effort: normal Respiratory: bilateral: diminished, rales, negative: rhonchi, wheezing - Cardiovascular Rhythm: regular Heart Sounds: Present: S1 & S2 (muffled heart sounds) - Extremities Extremities: no ischemia, No edema - Abdominal General gastrointestinal: soft, non-tender, non-distended, normal bowel sounds - Integumentary Integumentary: Present: clear, warm - Psychiatric Psychiatric: appropriate mood/affect, cooperative - Neurologic Neurologic: moves all extremities Results - Labs CBC & Chem 7: 06/10/18 06:46 06/10/18 06:46 Labs: Laboratory Last Values WBC 3.7 K/mm3 (4.5-11.0) L 06/10/18 06:46 RBC 3.53 M/mm3 (3.65-5.03) L 06/10/18 06:46 Hgb 9.6 gm/dl (11.8-15.2) L 06/10/18 06:46 Hct 30.1 % (35.5-45.6) L 06/10/18 06:46 MCV 85 fl (84-94) 06/10/18 06:46 MCH 27 pg (28-32) L 06/10/18 06:46 MCHC 32 % (32-34) 06/10/18 06:46 RDW 18.8 % (13.2-15.2) H 06/10/18 06:46 Plt Count 338 K/mm3 (140-440) 06/10/18 06:46 Lymph % (Auto) 8.5 % (13.4-35.0) L 06/10/18 06:46 [place] % (Auto) 14.7 % (0.0-7.3) H 06/10/18 06:46 Eos % (Auto) 1.1 % (0.0-4.3) 06/10/18 06:46 Baso % (Auto) 0.7 % (0.0-1.8) 06/10/18 06:46 Lymph # 0.3 K/mm3 (1.2-5.4) L 06/10/18 06:46 [place] # 0.5 K/mm3 (0.0-0.8) 06/10/18 06:46 Eos # 0.0 K/mm3 (0.0-0.4) 06/10/18 06:46 Baso # 0.0 K/mm3 (0.0-0.1) 06/10/18 06:46 Seg Neutrophils % 75.0 % (40.0-70.0) H 06/10/18 06:46 Seg Neutrophils # 2.7 K/mm3 (1.8-7.7) 06/10/18 06:46 PT 16.2 Sec. (12.2-14.9) H 06/05/18 09:21 INR 1.22 (0.87-1.13) H 06/05/18 09:21 APTT 34.5 Sec. (24.2-36.6) 05/31/18 20:50 Sodium 132 mmol/L (137-145) L 06/08/18 00:19 Potassium 4.3 mmol/L (3.6-5.0) 06/09/18 08:22 Chloride 90.9 mmol/L (98-107) L 06/08/18 00:19 Carbon Dioxide 28 mmol/L (22-30) 06/08/18 00:19 Anion Gap 18 mmol/L 06/08/18 00:19 BUN 41 mg/dL (9-20) H 06/08/18 00:19 Creatinine 5.3 mg/dL (0.8-1.5) H 06/08/18 00:19 Estimated GFR 13 ml/min 06/08/18 00:19 BUN/Creatinine Ratio 8 % 06/08/18 00:19 Glucose 79 mg/dL (75-100) 06/08/18 00:19 POC Glucose 82 (70-105) 06/09/18 17:07 Calcium 8.8 mg/dL (8.4-10.2) 06/08/18 00:19 Iron 30 ug/dL (49-181) L 06/01/18 10:24 TIBC 163 mcg/dL (250-450) L 06/01/18 10:24 Total Bilirubin 0.40 mg/dL (0.1-1.2) 05/31/18 20:50 AST 30 units/L (5-40) 05/31/18 20:50 ALT 12 units/L (7-56) 05/31/18 20:50 Alkaline Phosphatase 98 units/L (35-129) 05/31/18 20:50 Total Creatine Kinase 42 units/L (55-170) L 06/01/18 10:42 CK-MB (CK-2) 4.6 ng/mL (0.0-4.0) H 06/01/18 10:42 CK-MB (CK-2) Rel Index 10.9 (0-4) H 06/01/18 10:42 Troponin T 0.365 ng/mL (0.00-0.029) H* 06/01/18 10:42 Total Protein 8.7 g/dL (6.3-8.2) H 05/31/18 20:50 Albumin 3.4 g/dL (3.9-5) L 05/31/18 20:50 Albumin/Globulin Ratio 0.6 % 05/31/18 20:50 Triglycerides 57 mg/dL (2-149) 05/31/18 20:50 Cholesterol 92 mg/dL (50-199) 05/31/18 20:50 LDL Cholesterol Direct 41 mg/dL (50-130) L 05/31/18 20:50 HDL Cholesterol 39 mg/dL (40-59) L 05/31/18 20:50 Cholesterol/HDL Ratio 2.35 % 05/31/18 20:50 Fluid Type Pericardial 06/09/18 10:57 Fluid Color Bloody 06/09/18 10:57 Fluid Appearance Bloody 06/09/18 10:57 Fluid WBC 2090 /mm3 06/09/18 10:57 Fluid RBC 61999 /mm3 06/09/18 10:57 Fluid Seg Neutrophils 52.0 % 06/09/18 10:57 Fluid Lymphocytes 7.0 % 06/09/18 10:57 Fluid Reactive Lymphs 0 % 06/09/18 10:57 Fluid Monocytes 41.0 % 06/09/18 10:57 Fluid Eosinophils 0 % 06/09/18 10:57 Fluid Basophils 0 % 06/09/18 10:57 Active Medications - Current Medications Current Medications: Generic Name Dose Route Start Last Admin Trade Name Freq PRN Reason Stop Dose Admin Acetaminophen 650 mg 06/01/18 03:09 Tylenol PO Q4H PRN Pain MILD(1-3)/Fever >100.5/JENKINS Albuterol 2.5 mg 06/01/18 21:04 Proventil IH Q4HRT PRN Shortness Of Breath Alprazolam 0.5 mg 06/01/18 22:00 06/09/18 21:17 Xanax PO Not Given Q12HR CHONG Aspirin 81 mg 06/02/18 10:00 06/09/18 14:16 Halfprin Ec PO 81 mg QDAY CHONG Administration Atorvastatin Calcium 40 mg 06/01/18 22:00 06/09/18 21:18 Lipitor PO Not Given QHS CHONG Carvedilol 25 mg 06/01/18 22:00 06/09/18 21:18 Coreg PO Not Given BID CHONG Clonidine HCl 0.1 mg 06/02/18 08:00 06/09/18 21:17 Catapres PO Not Given TID [facility] Clonidine HCl 0.2 mg 06/02/18 08:00 06/09/18 21:17 Catapres PO Not Given TID [facility] Epoetin Davis 20,000 unit 06/03/18 10:43 06/08/18 13:30 Procrit IV 20,000 unit APRIL PRN Administration hemodialysis Hydralazine HCl 100 mg 06/02/18 08:00 06/09/18 21:16 Apresoline PO Not Given TID [facility] Hydromorphone HCl 0.5 mg 06/09/18 15:56 06/10/18 03:12 Dilaudid IV 0.5 mg Q4H PRN Administration Pain , Severe (7-10) Sodium Chloride 1,000 mls @ 50 mls/hr 06/10/18 01:00 06/10/18 01:00 Nacl 0.9% 1000 Ml IV 50 mls/hr DIRECT CHONG Administration Lorazepam 1 mg 06/02/18 17:04 06/10/18 01:01 Ativan IV 1 mg Q6H PRN Administration Anxiety Multivit/Ca Carb/B Cmplx/FA/Prenat 1 cap 06/02/18 10:00 06/09/18 10:00 Renal Caps PO Not Given QDAY [facility] Nifedipine 90 mg 06/01/18 22:00 06/09/18 16:56 Procardia Xl PO 90 mg BID@0800,1700 CHONG Administration Ondansetron HCl 4 mg 06/10/18 00:41 06/10/18 05:26 Zofran IV 4 mg Q4H PRN Administration Nausea And Vomiting Pantoprazole Sodium 40 mg 06/02/18 10:00 06/09/18 10:00 Protonix PO Not Given DAILY [facility] Promethazine HCl 25 mg 06/09/18 15:55 06/09/18 16:56 Phenergan PO 25 mg Q6H PRN Administration Nausea And Vomiting Sodium Chloride 10 ml 06/01/18 10:00 06/09/18 21:16 Sodium Chloride Flush Syringe 10 Ml IV 10 ml BID CHONG Administration Trazodone HCl 100 mg 06/01/18 22:00 06/09/18 21:18 Desyrel PO Not Given QHS [facility] Nutrition/Malnutrition Assess - Dietary Evaluation Nutrition/Malnutrition Findings: Nutrition Notes Start: 06/08/18 13:47 Freq: Status: Active Protocol: Document 06/08/18 13:48 RD (Rec: 06/08/18 13:55 RD [email or web address]) Co-Sign 06/08/18 13:48 LP Nutrition Notes Need for Assessment generated from: LOS Initial or Follow up Brief Note Current Diagnosis Hypertension,Respiratory Failure,Hyperlipidemia Other Pertinent Diagnosis ESRD on HD, anemia, GERD Current Diet NPO Subjective/Other Information RD screen for LOS. Pt reports great appetite and eating all of meals. No trouble chewing/ swallowing. Reported intakes average 83%. Nutrition Intervention Revisit per MD consult or patient Sign Off request:
[2018-06-10] MEDS: CATAPRES PO SCH ×6 (08:00→21:42)
[2018-06-10] MEDS: PROCARDIA XL PO SCH ×2 (08:00→17:00)
[2018-06-10] MEDS: APRESOLINE PO SCH ×3 (08:00→21:41)
[2018-06-10] MEDS: HALFPRIN EC PO SCH (10:00)
[2018-06-10] MEDS: XANAX PO SCH ×2 (10:00→21:44)
[2018-06-10] MEDS: SODIUM CHLORIDE FLUSH SYRINGE 10 ML IV SCH ×2 (10:00→22:39)
[2018-06-10] MEDS: PROTONIX PO SCH (10:00)
[2018-06-10] MEDS: COREG PO SCH ×2 (10:00→21:42)
[2018-06-10] MEDS: Renal Caps PO SCH (10:00)
--- NOTE | 2018-06-10 14:02 | Progress Note ---
Assessment and Plan - Patient Problems (1) End stage renal disease Current Visit: No Status: Acute Plan to address problem: End-stage renal disease Access : Left arm AV fistula continue Aggressive hemodialysis Pericardial effusion (2) Acute exacerbation of CHF (congestive heart failure) Current Visit: No Status: Acute Qualifiers: Heart failure type: combined systolic and diastolic Qualified Code(s): I50.43 - Acute on chronic combined systolic (congestive) and diastolic (congestive) heart failure Plan to address problem: Acute CHF exacerbation with systolic dysfunction Reviewed echocardiogram with reduced ejection fraction 35-40% Ultrafiltration with dialysis (3) Acute on chronic respiratory failure with hypoxemia Current Visit: No Status: Acute Plan to address problem: Acute on chronic respiratory failure with hypoxemia Currently on 4 L of oxygen I reviewed CT bilateral pleural effusions Ultrafiltration : wean oxygen as tolerated. (4) Anemia Current Visit: No Status: Acute Qualifiers: Chronic kidney disease stage: on chronic dialysis Plan to address problem: Anemia secondary to chronic kidney disease Hb: 7.5 g per DL We'll give epogen 20,000 units IV 3 x weekly. Subjective Principal diagnosis: Large pericardial effusion ESRD Pleural effusion Interval history: 28 year old with medical history of HTN , Systolic CHF , ESRD admitted with shortness of breath and found to have pericardial effusion seen today still has some vomitting but improved I attest I saw the patient on hemodialysis. no peripheral edema. Objective - Vital Signs Vital signs: Vital Signs - 12hr 06/10/18 06/10/18 06/10/18 04:13 04:25 08:38 Temperature 98.6 F 99.4 F Pulse Rate 86 96 H 96 H Respiratory 20 16 Rate Respiratory Rate [Abdomen] Respiratory Rate [ generalized] Blood Pressure 111/53 114/50 O2 Sat by Pulse 100 93 Oximetry 06/10/18 06/10/18 09:29 10:00 Temperature Pulse Rate Respiratory 20 Rate Respiratory 20 Rate [Abdomen] Respiratory 20 Rate [ generalized] Blood Pressure O2 Sat by Pulse 97 Oximetry - General Appearance General appearance: well-developed, well-nourished EENT: ATNC, PERRL, mucous membranes moist Neck: no JVD, no thyromegaly Respiratory: Present: Decreased Breath Sounds Cardiology: regular, S1S2 Gastrointestinal: normal, normoactive bowel sounds Integumentary: no rash Neurologic: no focal deficit Psychiatric: depressed - Lab 06/10/18 06:46 06/10/18 06:46 Most recent lab results Calcium 8.4 mg/dL (8.4-10.2) 06/10/18 06:46 - Imaging Chest x-ray: image reviewed Medications & Allergies - Medications Allergies/Adverse Reactions: Allergies heparin Allergy (Verified 04/21/18 14:26) lowers platelets Home Medications: Home Medications Medication Instructions Recorded Confirmed Last Taken Type AtorvaSTATin [Lipitor] 40 mg PO QHS #30 tab 03/27/18 06/01/18 05/31/18 Rx Esomeprazole Magnesium [Nexium] 40 mg PO DAILY #30 capsule. 03/27/18 06/01/18 05/31/18 Rx Folic Acid/Vit B Comp W-C [Renal 1 cap PO QDAY #60 capsule 03/27/18 06/01/18 05/31/18 Rx Caps] cloNIDine [Catapres] 0.3 mg PO TID 30 Days tablet 03/27/18 06/01/18 05/31/18 Rx hydrALAZINE [Apresoline TAB] 100 mg PO TID #90 tab 03/27/18 06/01/18 05/31/18 Rx traZODone [Desyrel] 100 mg PO QHS #30 tablet 03/27/18 06/01/18 05/30/18 Rx NIFEdipine [Adalat cc] 90 mg PO BID 04/11/18 06/01/18 Unknown History Diclofenac Sodium [Voltaren] 100 gm TP Q6H #1 gel..gram. 04/21/18 06/01/18 05/31/18 Rx ALBUTEROL NEB's [Proventil 0.083% 2.5 mg IH Q4HRT PRN nebu 05/19/18 06/01/18 05/31/18 Rx NEBS] ALPRAZolam [Xanax TAB] 0.5 mg PO Q12HR #20 tablet 05/19/18 06/01/18 05/31/18 Rx Aspirin EC [Aspirin Enteric Coated 81 mg PO QDAY tablet 05/19/18 06/01/18 05/31/18 Rx TAB] AtorvaSTATin [Lipitor] 40 mg PO QHS tablet 05/19/18 06/01/18 05/31/18 Rx Carvedilol [Coreg] 25 mg PO BID tablet 05/19/18 06/01/18 05/31/18 Rx Active Medications: Generic Name Dose Route Start Last Admin Trade Name Freq PRN Reason Stop Dose Admin Acetaminophen 650 mg 06/01/18 03:09 Tylenol PO Q4H PRN Pain MILD(1-3)/Fever >100.5/JENKINS Albuterol 2.5 mg 06/01/18 21:04 Proventil IH Q4HRT PRN Shortness Of Breath Alprazolam 0.5 mg 06/01/18 22:00 06/09/18 21:17 Xanax PO Not Given Q12HR CHONG Aspirin 81 mg 06/02/18 10:00 06/09/18 14:16 Halfprin Ec PO 81 mg QDAY CHONG Administration Atorvastatin Calcium 40 mg 06/01/18 22:00 06/09/18 21:18 Lipitor PO Not Given QHS CHONG Carvedilol 25 mg 06/01/18 22:00 06/09/18 21:18 Coreg PO Not Given BID CHONG Clonidine HCl 0.1 mg 06/02/18 08:00 06/09/18 21:17 Catapres PO Not Given TID CHONG Clonidine HCl 0.2 mg 06/02/18 08:00 06/09/18 21:17 Catapres PO Not Given TID [facility] Epoetin Davis 20,000 unit 06/03/18 10:43 06/08/18 13:30 Procrit IV 20,000 unit APRIL PRN Administration hemodialysis Hydralazine HCl 100 mg 06/02/18 08:00 06/09/18 21:16 Apresoline PO Not Given TID [facility] Hydromorphone HCl 0.5 mg 06/09/18 15:56 06/10/18 09:29 Dilaudid IV 0.5 mg Q4H PRN Administration Pain , Severe (7-10) Sodium Chloride 1,000 mls @ 50 mls/hr 06/10/18 01:00 06/10/18 01:00 Nacl 0.9% 1000 Ml IV 50 mls/hr DIRECT CHONG Administration Lorazepam 1 mg 06/02/18 17:04 06/10/18 01:01 Ativan IV 1 mg Q6H PRN Administration Anxiety Multivit/Ca Carb/B Cmplx/FA/Prenat 1 cap 06/02/18 10:00 06/09/18 10:00 Renal Caps PO Not Given QDAY CHONG Nifedipine 90 mg 06/01/18 22:00 06/09/18 16:56 Procardia Xl PO 90 mg BID@0800,1700 [facility] Administration Ondansetron HCl 4 mg 06/10/18 00:41 06/10/18 09:28 Zofran IV 4 mg Q4H PRN Administration Nausea And Vomiting Pantoprazole Sodium 40 mg 06/02/18 10:00 06/09/18 10:00 Protonix PO Not Given DAILY [facility] Promethazine HCl 25 mg 06/09/18 15:55 06/09/18 16:56 Phenergan PO 25 mg Q6H PRN Administration Nausea And Vomiting Sodium Chloride 10 ml 06/01/18 10:00 06/09/18 21:16 Sodium Chloride Flush Syringe 10 Ml IV 10 ml BID [facility] Administration Trazodone HCl 100 mg 06/01/18 22:00 06/09/18 21:18 Desyrel PO Not Given QHS CHONG
--- NOTE | 2018-06-10 14:36 | Consultation ---
History of Present Illness Consult date: 06/10/18 Reason for consult: abdominal pain Requesting physician: BRODY WALKER Chief complaint: N/V - History of present illness History of present illness: 28yo M with complicated medical history who has been having nausea and vomiting for the past 2 days. Initially presented for chest pain. He reports that he has had these episodes of nausea and vomiting in the past. He has had peritonitis in the past. Dr. Colin Jean at [facility] has operated on him in the past. He has been tolerating ice chips with the NG tube in place. No further vomiting. He has not passed gas or have a bowel movement recently. Does have some mild abdominal pain. Past History Past Medical History: GERD, hypertension, renal failure, other (Chronic Res piratory Failure) Past Surgical History: tonsillectomy, Other (Laparoscopies; AV fistula) Social history: denies: smoking, alcohol abuse Family history: hypertension Medications and Allergies Allergies Allergy/AdvReac Type Severity Reaction Status Date / Time heparin Allergy lowers Verified 04/21/18 14:26 platelets Home Medications Medication Instructions Recorded Confirmed Last Taken Type AtorvaSTATin [Lipitor] 40 mg PO QHS #30 tab 03/27/18 06/01/18 05/31/18 Rx Esomeprazole Magnesium [Nexium] 40 mg PO DAILY #30 capsule. 03/27/18 06/01/18 05/31/18 Rx Folic Acid/Vit B Comp W-C [Renal 1 cap PO QDAY #60 capsule 03/27/18 06/01/18 05/31/18 Rx Caps] cloNIDine [Catapres] 0.3 mg PO TID 30 Days tablet 03/27/18 06/01/18 05/31/18 Rx hydrALAZINE [Apresoline TAB] 100 mg PO TID #90 tab 03/27/18 06/01/18 05/31/18 Rx traZODone [Desyrel] 100 mg PO QHS #30 tablet 03/27/18 06/01/18 05/30/18 Rx NIFEdipine [Adalat cc] 90 mg PO BID 04/11/18 06/01/18 Unknown History Diclofenac Sodium [Voltaren] 100 gm TP Q6H #1 gel..gram. 04/21/18 06/01/18 05/31/18 Rx ALBUTEROL NEB's [Proventil 0.083% 2.5 mg IH Q4HRT PRN nebu 05/19/18 06/01/18 05/31/18 Rx NEBS] ALPRAZolam [Xanax TAB] 0.5 mg PO Q12HR #20 tablet 05/19/18 06/01/18 05/31/18 Rx Aspirin EC [Aspirin Enteric Coated 81 mg PO QDAY tablet 05/19/18 06/01/18 0 05/31/18 Rx TAB] AtorvaSTATin [Lipitor] 40 mg PO QHS tablet 05/19/18 06/01/18 05/31/18 Rx Carvedilol [Coreg] 25 mg PO BID tablet 05/19/18 06/01/18 05/31/18 Rx Active Meds: Active Medications Acetaminophen (Tylenol) 650 mg PO Q4H PRN PRN Reason: Pain MILD(1-3)/Fever >100.5/JENKINS Albuterol (Proventil) 2.5 mg IH Q4HRT PRN PRN Reason: Shortness Of Breath Alprazolam (Xanax) 0.5 mg PO Q12HR [facility] Last Admin: 06/09/18 21:17 Dose: Not Given Documented by: Aspirin (Halfprin Ec) 81 mg PO QDAY [facility] Last Admin: 06/09/18 14:16 Dose: 81 mg Documented by: Atorvastatin Calcium (Lipitor) 40 mg PO QHS [facility] Last Admin: 06/09/18 21:18 Dose: Not Given Documented by: Carvedilol (Coreg) 25 mg PO BID [facility] Last Admin: 06/09/18 21:18 Dose: Not Given Documented by: Clonidine HCl (Catapres) 0.1 mg PO TID [facility] Last Admin: 06/09/18 21:17 Dose: Not Given Documented by: Clonidine HCl (Catapres) 0.2 mg PO TID [facility] Last Admin: 06/09/18 21:17 Dose: Not Given Documented by: Epoetin Davis (Procrit) 20,000 unit IV APRIL PRN PRN Reason: hemodialysis Last Admin: 06/08/18 13:30 Dose: 20,000 unit Documented by: Hydralazine HCl (Apresoline) 100 mg PO TID [facility] Last Admin: 06/09/18 21:16 Dose: Not Given Documented by: Hydromorphone HCl (Dilaudid) 0.5 mg IV Q4H PRN PRN Reason: Pain , Severe (7-10) Last Admin: 06/10/18 14:10 Dose: 0.5 mg Documented by: Sodium Chloride (Nacl 0.9% 1000 Ml) 1,000 mls @ 50 mls/hr IV DIRECT [facility] Last Admin: 06/10/18 01:00 Dose: 50 mls/hr Documented by: Lorazepam (Ativan) 1 mg IV Q6H PRN PRN Reason: Anxiety Last Admin: 06/10/18 01:01 Dose: 1 mg Documented by: Multivit/Ca Carb/B Cmplx/FA/Prenat (Renal Caps) 1 cap PO QDAY [facility] Last Admin: 06/09/18 10:00 Dose: Not Given Documented by: Nifedipine (Procardia Xl) 90 mg PO BID@0800,1700 [facility] Last Admin: 06/09/18 16:56 Dose: 90 mg Documented by: Ondansetron HCl (Zofran) 4 mg IV Q4H PRN PRN Reason: Nausea And Vomiting Last Admin: 06/10/18 14:11 Dose: 4 mg Documented by: Pantoprazole Sodium (Protonix) 40 mg PO DAILY [facility] Last Admin: 06/09/18 10:00 Dose: Not Given Documented by: Promethazine HCl (Phenergan) 25 mg PO Q6H PRN PRN Reason: Nausea And Vomiting Last Admin: 06/09/18 16:56 Dose: 25 mg Documented by: Sodium Chloride (Sodium Chloride Flush Syringe 10 Ml) 10 ml IV BID [facility] Last Admin: 06/09/18 21:16 Dose: 10 ml Documented by: Trazodone HCl (Desyrel) 100 mg PO QHS [facility] Last Admin: 06/09/18 21:18 Dose: Not Given Documented by: Review of Systems - Constitutional no fever, no chills - Cardiovascular chest pain - Respiratory no cough - Gastrointestinal abdominal pain, nausea, vomiting, change in bowel habits, dyspepsia/bloating, no hematemesis, no coffee ground emesis, no BRBPR, no melena, no hematochezia - Muskuloskeletal no low back pain - Integumentary no rash, no pruritis, no redness, no sores, no wounds Exam Vital Signs Temp Pulse Resp BP Pulse Ox 98 F 76 16 173/79 92 05/31/18 20:46 05/31/18 20:46 05/31/18 20:46 05/31/18 20:46 05/31/18 20:46 - General physical appearance Positive: no distress, no pain, other (currently in dialysis. answered questions appropriately) - Eyes Positive: normal occular movement - Respiratory Positive: normal expansion, normal respiratory effort, clear to auscultation - Cardiovascular Rhythm: regular - Abdomen Abdomen: Present: soft, tender (mild in various spots), bowel sounds hypoactive (none), distended (minimal), surgical scars (no ex-lap scars. one small incision seen near umbo. healed wounds seen in RLQ), other (NGT with thin drainage). Absent: guarding, rigid - Integumentary no rash, no growths, no abnormal pigmentation - Neurologic Neurologic: alert and oriented to time, place and person - Psychiatric Psychiatric: appropriate mood/affect Results - Labs 06/10/18 06:46 06/10/18 06:46 Abnormal lab results 06/10/18 06/10/18 06/10/18 Range/Units 06:46 06:46 08:07 WBC 3.7 L (4.5-11.0) K/mm3 RBC 3.53 L (3.65-5.03) M/mm3 Hgb 9.6 L (11.8-15.2) gm/dl Hct 30.1 L (35.5-45.6) % MCH 27 L (28-32) pg RDW 18.8 H (13.2-15.2) % Lymph % (Auto) 8.5 L (13.4-35.0) % Morgan % (Auto) 14.7 H (0.0-7.3) % Lymph # 0.3 L (1.2-5.4) K/mm3 Seg Neutrophils % 75.0 H (40.0-70.0) % Chloride 87.1 L (98-107) mmol/L Carbon Dioxide 38 H D (22-30) mmol/L BUN 42 H (9-20) mg/dL Creatinine 6.3 H (0.8-1.5) mg/dL Glucose 104 H (75-100) mg/dL POC Glucose 106 H (70-105) Diabetes panel 06/10/18 Range/Units 06:46 Sodium 143 D (137-145) mmol/L Potassium 3.7 (3.6-5.0) mmol/L Chloride 87.1 L (98-107) mmol/L Carbon Dioxide 38 H D (22-30) mmol/L BUN 42 H (9-20) mg/dL Creatinine 6.3 H (0.8-1.5) mg/dL Glucose 104 H (75-100) mg/dL Calcium 8.4 (8.4-10.2) mg/dL Calcium panel 06/10/18 Range/Units 06:46 Calcium 8.4 (8.4-10.2) mg/dL Pituitary panel 06/10/18 Range/Units 06:46 Sodium 143 D (137-145) mmol/L Potassium 3.7 (3.6-5.0) mmol/L Chloride 87.1 L (98-107) mmol/L Carbon Dioxide 38 H D (22-30) mmol/L BUN 42 H (9-20) mg/dL Creatinine 6.3 H (0.8-1.5) mg/dL Glucose 104 H (75-100) mg/dL Calcium 8.4 (8.4-10.2) mg/dL Adrenal panel 06/10/18 Range/Units 06:46 Sodium 143 D (137-145) mmol/L Potassium 3.7 (3.6-5.0) mmol/L Chloride 87.1 L (98-107) mmol/L Carbon Dioxide 38 H D (22-30) mmol/L BUN 42 H (9-20) mg/dL Creatinine 6.3 H (0.8-1.5) mg/dL Glucose 104 H (75-100) mg/dL Calcium 8.4 (8.4-10.2) mg/dL - Imaging CT scan - abdomen: report reviewed, image reviewed CT scan - pelvis: report reviewed, image reviewed Assessment and Plan - Patient Problems (1) SBO (small bowel obstruction) Current Visit: No Status: Acute Plan to address problem: Pt stable. Based on what the patient is describing and his abdominal appearance, he did not have abdominal explorations. He probably had laparoscopies which should create much less scar tissue. Would continue with conservative management for now. Agree with NG tube placement. I advised patient to not eat or drink now. He really should not be taking much in the way of ice chips. I ordered a new film for the morning to reassess his intestines. Without contrast, the CT scan was of limited use. Will follow along. Please call with questions. Time=35min
--- NOTE | 2018-06-10 14:38 | Progress Note ---
Assessment and Plan Pericardial effusion, status post successful pericardiocentesis, we will recheck echocardiogram on Tuesday. Subjective Date of service: 06/10/18 Principal diagnosis: Large pericardial effusion ESRD Pleural effusion Interval history: Patient reported with bowel obstruction, currently has an NG tube to suction, and awaiting hemodialysis. No cardiac complaints. Objective Vital Signs Temp Pulse Resp Resp Resp BP Pulse Ox 06/10/18 10:00 20 20 97 06/10/18 09:29 20 06/10/18 08:38 99.4 F 96 H 16 114/50 93 06/10/18 04:25 96 H 06/10/18 04:13 98.6 F 86 20 111/53 100 06/09/18 22:11 100 06/09/18 20:05 98.6 F 88 18 113/61 99 06/09/18 19:15 77 06/09/18 17:45 98.4 F 85 18 114/59 100 06/09/18 17:27 20 06/09/18 16:57 20 06/09/18 14:51 20 - Physical Examination General: Cachectic HEENT: Positive: PERRL Neck: Positive: trachea midline Cardiac: Positive: Reg Rate and Rhythm Lungs: Positive: Decreased Breath Sounds Neuro: Positive: Grossly Intact Abdomen: Positive: Unremarkable, Soft Skin: Positive: Clear Extremities: Absent: edema - Labs and Meds CBC 06/10/18 Range/Units 06:46 WBC 3.7 L (4.5-11.0) K/mm3 RBC 3.53 L (3.65-5.03) M/mm3 Hgb 9.6 L (11.8-15.2) gm/dl Hct 30.1 L (35.5-45.6) % Plt Count 338 (140-440) K/mm3 Lymph # 0.3 L (1.2-5.4) K/mm3 Hayes # 0.5 (0.0-0.8) K/mm3 Eos # 0.0 (0.0-0.4) K/mm3 Baso # 0.0 (0.0-0.1) K/mm3 Comprehensive Metabolic Panel 06/10/18 Range/Units 06:46 Sodium 143 D (137-145) mmol/L Potassium 3.7 (3.6-5.0) mmol/L Chloride 87.1 L (98-107) mmol/L Carbon Dioxide 38 H D (22-30) mmol/L BUN 42 H (9-20) mg/dL Creatinine 6.3 H (0.8-1.5) mg/dL Glucose 104 H (75-100) mg/dL Calcium 8.4 (8.4-10.2) mg/dL - Imaging and Cardiology EKG: image reviewed
[2018-06-10] MEDS: DESYREL PO SCH (21:43)
[2018-06-11] MEDS: ATIVAN IV PRN (01:01)
[2018-06-11] MEDS: NACL 0.9% 1000 ML 1,000 ML IV SCH ×2 (03:35→22:56)
[2018-06-11] MEDS: DILAUDID IV PRN ×5 (03:35→22:57)
[2018-06-11] MEDS: ZOFRAN IV PRN ×4 (03:38→17:16)
[2018-06-11] MEDS: COREG PO SCH ×2 (08:00→21:26)
[2018-06-11] MEDS: PROCARDIA XL PO SCH ×2 (08:00→17:18)
[2018-06-11] MEDS: APRESOLINE PO SCH ×3 (08:00→21:25)
[2018-06-11] MEDS: CATAPRES PO SCH ×6 (08:00→21:26)
--- NOTE | 2018-06-11 09:48 | Progress Note ---
Assessment and Plan Assessment and plan: --Partial Small bowel obstruction Nothing by mouth, NG tube placement, intermittent suction , copious gastric aspirate Follow-up x-ray abdomen /CT abdomen and pelvis with contrast Surgery following . If no improvement, we'll start TPN/TPN --Intractable nausea vomiting: Partial Small bowel obstruction, NPO antiemetics, IV fluids, supportive care -- Pericardial effusion/no tamponade Pericardiocentesis and removal of 1400 mL pericardial fluid Sent for analysis, patient feels slightly better Moderate pericardial effusion on CT abdomen done today -- Bilateral Pleural effusion Had recent Thoracentesis, Supportive care Consult pulmonary PRN , consider thoracentesis if needed -- ESRD needing dialysis on hemodialysis Continue HD as per schedule, nephrology following -- Elevated troponin I level Nonspecific due to to Esrd, cardiology following --HTN (hypertension) Moderate control, continue current antihypertensives When necessary medications --Chronic combined systolic and diastolic congestive heart failure continue current management, cardiology following -- HLD (hyperlipidemia) Cont statins, low-cholesterol diet --GERD (gastroesophageal reflux disease) Cont PPI's -- DVT prophylaxis SCDs Consultants nephrology , surgery , cardiology recommendations noted and appreciated Patient's condition and treatment plan discussed in detail to the patient and his nurse I also discussed the case with surgeon Dr. Vigil. History Interval history: Patient seen and examined this morning medical records reviewed Patient looks chronically ill cachectic, dehydrated Individuals with intermittent suction copious aspirate Patient complains of abdominal pain and generalized weakness Vital signs noted Hospitalist Physical - Constitutional Vitals: Temp Pulse Resp BP Pulse Ox 98.8 F 100 H 16 92/41 67 L 06/11/18 07:44 06/11/18 07:44 06/11/18 07:54 06/11/18 07:44 06/11/18 07:44 General appearance: Present: mild distress, cachectic, disheveled, other ( dehydrated chronically ill-looking) - EENT Eyes: Present: PERRL, EOM intact - Neck Neck: Present: supple, normal ROM - Respiratory Respiratory effort: labored Respiratory: bilateral: diminished, rales, negative: rhonchi, wheezing - Cardiovascular Rhythm: regular Heart Sounds: Present: S1 & S2 - Extremities Extremities: no ischemia, No edema - Abdominal General gastrointestinal: soft, tender, distended - Integumentary Integumentary: Present: clear, warm - Psychiatric Psychiatric: appropriate mood/affect, other (anxious) - Neurologic Neurologic: CNII-XII intact, moves all extremities Results - Labs CBC & Chem 7: 06/11/18 09:07 06/11/18 09:07 Labs: Laboratory Last Values WBC 3.7 K/mm3 (4.5-11.0) L 06/10/18 06:46 RBC 3.53 M/mm3 (3.65-5.03) L 06/10/18 06:46 Hgb 9.6 gm/dl (11.8-15.2) L 06/10/18 06:46 Hct 30.1 % (35.5-45.6) L 06/10/18 06:46 MCV 85 fl (84-94) 06/10/18 06:46 MCH 27 pg (28-32) L 06/10/18 06:46 MCHC 32 % (32-34) 06/10/18 06:46 RDW 18.8 % (13.2-15.2) H 06/10/18 06:46 Plt Count 338 K/mm3 (140-440) 06/10/18 06:46 Lymph % (Auto) 8.5 % (13.4-35.0) L 06/10/18 06:46 [place] % (Auto) 14.7 % (0.0-7.3) H 06/10/18 06:46 Eos % (Auto) 1.1 % (0.0-4.3) 06/10/18 06:46 Baso % (Auto) 0.7 % (0.0-1.8) 06/10/18 06:46 Lymph # 0.3 K/mm3 (1.2-5.4) L 06/10/18 06:46 [place] # 0.5 K/mm3 (0.0-0.8) 06/10/18 06:46 Eos # 0.0 K/mm3 (0.0-0.4) 06/10/18 06:46 Baso # 0.0 K/mm3 (0.0-0.1) 06/10/18 06:46 Seg Neutrophils % 75.0 % (40.0-70.0) H 06/10/18 06:46 Seg Neutrophils # 2.7 K/mm3 (1.8-7.7) 06/10/18 06:46 PT 16.2 Sec. (12.2-14.9) H 06/05/18 09:21 INR 1.22 (0.87-1.13) H 06/05/18 09:21 APTT 34.5 Sec. (24.2-36.6) 05/31/18 20:50 Sodium 143 mmol/L (137-145) D 06/10/18 06:46 Potassium 3.7 mmol/L (3.6-5.0) 06/10/18 06:46 Chloride 87.1 mmol/L (98-107) L 06/10/18 06:46 Carbon Dioxide 38 mmol/L (22-30) H D 06/10/18 06:46 Anion Gap 22 mmol/L 06/10/18 06:46 BUN 42 mg/dL (9-20) H 06/10/18 06:46 Creatinine 6.3 mg/dL (0.8-1.5) H 06/10/18 06:46 Estimated GFR 10 ml/min 06/10/18 06:46 BUN/Creatinine Ratio 7 % 06/10/18 06:46 Glucose 104 mg/dL (75-100) H 06/10/18 06:46 POC Glucose 86 (70-105) 06/11/18 06:41 Calcium 8.4 mg/dL (8.4-10.2) 06/10/18 06:46 Iron 30 ug/dL (49-181) L 06/01/18 10:24 TIBC 163 mcg/dL (250-450) L 06/01/18 10:24 Total Bilirubin 0.40 mg/dL (0.1-1.2) 05/31/18 20:50 AST 30 units/L (5-40) 05/31/18 20:50 ALT 12 units/L (7-56) 05/31/18 20:50 Alkaline Phosphatase 98 units/L (35-129) 05/31/18 20:50 Total Creatine Kinase 42 units/L (55-170) L 06/01/18 10:42 CK-MB (CK-2) 4.6 ng/mL (0.0-4.0) H 06/01/18 10:42 CK-MB (CK-2) Rel Index 10.9 (0-4) H 06/01/18 10:42 Troponin T 0.365 ng/mL (0.00-0.029) H* 06/01/18 10:42 Total Protein 8.7 g/dL (6.3-8.2) H 05/31/18 20:50 Albumin 3.4 g/dL (3.9-5) L 05/31/18 20:50 Albumin/Globulin Ratio 0.6 % 05/31/18 20:50 Triglycerides 57 mg/dL (2-149) 05/31/18 20:50 Cholesterol 92 mg/dL (50-199) 05/31/18 20:50 LDL Cholesterol Direct 41 mg/dL (50-130) L 05/31/18 20:50 HDL Cholesterol 39 mg/dL (40-59) L 05/31/18 20:50 Cholesterol/HDL Ratio 2.35 % 05/31/18 20:50 Fluid Type Pericardial 06/09/18 10:57 Fluid Color Bloody 06/09/18 10:57 Fluid Appearance Bloody 06/09/18 10:57 Fluid WBC 2090 /mm3 06/09/18 10:57 Fluid RBC 02586 /mm3 06/09/18 10:57 Fluid Seg Neutrophils 52.0 % 06/09/18 10:57 Fluid Lymphocytes 7.0 % 06/09/18 10:57 Fluid Reactive Lymphs 0 % 06/09/18 10:57 Fluid Monocytes 41.0 % 06/09/18 10:57 Fluid Eosinophils 0 % 06/09/18 10:57 Fluid Basophils 0 % 06/09/18 10:57 Active Medications - Current Medications Current Medications: Generic Name Dose Route Start Last Admin Trade Name Freq PRN Reason Stop Dose Admin Acetaminophen 650 mg 06/01/18 03:09 Tylenol PO Q4H PRN Pain MILD(1-3)/Fever >100.5/JENKINS Albuterol 2.5 mg 06/01/18 21:04 Proventil IH Q4HRT PRN Shortness Of Breath Alprazolam 0.5 mg 06/01/18 22:00 06/10/18 21:44 Xanax PO Not Given Q12HR CHONG Aspirin 81 mg 06/02/18 10:00 06/10/18 10:00 Halfprin Ec PO Not Given QDAY CHONG Atorvastatin Calcium 40 mg 06/01/18 22:00 06/10/18 21:42 Lipitor PO Not Given QHS [facility] Carvedilol 25 mg 06/01/18 22:00 06/10/18 21:42 Coreg PO Not Given BID [facility] Clonidine HCl 0.1 mg 06/02/18 08:00 06/10/18 21:41 Catapres PO Not Given TID [facility] Clonidine HCl 0.2 mg 06/02/18 08:00 06/10/18 21:42 Catapres PO Not Given TID [facility] Epoetin Davis 20,000 unit 06/03/18 10:43 06/08/18 13:30 Procrit IV 20,000 unit APRIL PRN Administration hemodialysis Hydralazine HCl 100 mg 06/02/18 08:00 06/10/18 21:41 Apresoline PO Not Given TID [facility] Hydromorphone HCl 0.5 mg 06/09/18 15:56 06/11/18 07:54 Dilaudid IV 0.5 mg Q4H PRN Administration Pain , Severe (7-10) Sodium Chloride 1,000 mls @ 50 mls/hr 06/10/18 01:00 06/11/18 03:35 Nacl 0.9% 1000 Ml IV 50 mls/hr DIRECT CHONG Administration Lorazepam 1 mg 06/02/18 17:04 06/11/18 01:01 Ativan IV 1 mg Q6H PRN Administration Anxiety Multivit/Ca Carb/B Cmplx/FA/Prenat 1 cap 06/02/18 10:00 06/10/18 10:00 Renal Caps PO Not Given QDAY [facility] Nifedipine 90 mg 06/01/18 22:00 06/10/18 17:00 Procardia Xl PO Not Given BID@0800,1700 [facility] Ondansetron HCl 4 mg 06/10/18 00:41 06/11/18 07:54 Zofran IV 4 mg Q4H PRN Administration Nausea And Vomiting Pantoprazole Sodium 40 mg 06/02/18 10:00 06/10/18 10:00 Protonix PO Not Given DAILY [facility] Promethazine HCl 25 mg 06/09/18 15:55 06/09/18 16:56 Phenergan PO 25 mg Q6H PRN Administration Nausea And Vomiting Sodium Chloride 10 ml 06/01/18 10:00 06/10/18 22:39 Sodium Chloride Flush Syringe 10 Ml IV 10 ml BID CHONG Administration Trazodone HCl 100 mg 06/01/18 22:00 06/10/18 21:43 Desyrel PO Not Given QHS [facility] Nutrition/Malnutrition Assess - Dietary Evaluation Nutrition/Malnutrition Findings: Nutrition Notes Start: 06/08/18 13:47 Freq: Status: Active Protocol: Document 06/08/18 13:48 RD (Rec: 06/08/18 13:55 RD [email or web address]) Co-Sign 06/08/18 13:48 LP Nutrition Notes Need for Assessment generated from: LOS Initial or Follow up Brief Note Current Diagnosis Hypertension,Respiratory Failure,Hyperlipidemia Other Pertinent Diagnosis ESRD on HD, anemia, GERD Current Diet NPO Subjective/Other Information RD screen for LOS. Pt reports great appetite and eating all of meals. No trouble chewing/ swallowing. Reported intakes average 83%. Nutrition Intervention Revisit per MD consult or patient Sign Off request:
[2018-06-11] MEDS: PROTONIX PO SCH (10:00)
[2018-06-11] MEDS: Renal Caps PO SCH (10:00)
[2018-06-11] MEDS: XANAX PO SCH ×2 (10:00→21:27)
[2018-06-11] MEDS: HALFPRIN EC PO SCH (10:00)
[2018-06-11 10:05] LABS: Hematocrit 25.1 % (35.5-45.6); Hemoglobin 7.9 gm/dl (11.8-15.2); Mean Corpuscular HGB Conc 32 % (32-34); Mean Corpuscular Volume 86 fl (84-94); Platelet Count 273 K/mm3 (140-440); Red Blood Count 2.91 M/mm3 (3.65-5.03)
[2018-06-11 10:07] LABS: Albumin 2.6 g/dL (3.9-5); Calcium 7.6 mg/dL (8.4-10.2)
--- NOTE | 2018-06-11 10:16 | XRay Report ---
PROCEDURE: XR ABDOMEN 1V AP TECHNIQUE: Portable supine abdomen HISTORY: f/u of PSBO COMPARISON: CT abdomen/pelvis of 06/10/2018 FINDINGS: There is some mid abdominal dilated small bowel loops. There is air and stool in normal-caliber colon . This is nonspecific. Appearance could be compatible with bowel obstruction. There are no suspicious calcifications seen. IMPRESSION: Nonspecific abdomen. Dilated small bowel loops in the mid abdomen may reflect small bowel obstruction . This document is electronically signed by Yeni Beavers MD., June 11 2018 10:14:18 AM ET
[2018-06-11 10:31] LABS: INR 1.31 (0.87-1.13)
--- NOTE | 2018-06-11 12:08 | Progress Note ---
Assessment and Plan - Patient Problems (1) SBO (small bowel obstruction) Current Visit: No Status: Acute Plan to address problem: Pt stable. X-ray shows a few dilated to small bowel. Exam is unchanged. We'll get CT with oral contrast only to assess for complete versus partial blockage. Continue NG tube for now. Will follow along. Please call with questions. Time=10min Subjective Date of service: 06/11/18 Patient Reports: Positive: no new complaints, still having pain, no flatus, no bowel movement, other (left sided pain has been there for 6 years. Has no significant pain elsewhere). Negative: nausea, vomiting Objective Vital Signs - 12hr 06/11/18 06/11/18 06/11/18 02:31 03:35 04:05 Temperature 98.4 F Pulse Rate Respiratory 18 18 18 Rate Blood Pressure Blood Pressure 107/56 [Right] O2 Sat by Pulse 93 Oximetry 06/11/18 06/11/18 06/11/18 04:36 07:44 07:54 Temperature 98.4 F 98.8 F Pulse Rate 86 100 H Respiratory 18 18 16 Rate Blood Pressure 97/49 92/41 Blood Pressure [Right] O2 Sat by Pulse 97 67 L Oximetry 06/11/18 06/11/18 09:32 11:35 Temperature 98.6 F Pulse Rate 96 H Respiratory 20 Rate Blood Pressure Blood Pressure 99/54 [Right] O2 Sat by Pulse 95 94 Oximetry - General physical appearance no distress, no pain, other (NGT has been partially pulled out. ) - Respiratory normal expansion, normal respiratory effort - Abdomen soft, tender (mostly in the chronic area of pain. Minimal amount on right side. No pelvic shake tenderness. ), bowel sounds hypoactive, distended (minimal), not guarding, not rigid - Psychiatric oriented to time, oriented to person, oriented to place, speech is normal, memory intact - Labs 06/11/18 09:07 06/11/18 09:07 Diabetes panel 06/11/18 Range/Units 09:07 Sodium 142 (137-145) mmol/L Potassium 3.5 L (3.6-5.0) mmol/L Chloride 95.3 L (98-107) mmol/L Carbon Dioxide 35 H (22-30) mmol/L BUN 23 H (9-20) mg/dL Creatinine 4.2 H (0.8-1.5) mg/dL Glucose 66 L (75-100) mg/dL Calcium 7.6 L (8.4-10.2) mg/dL AST 12 (5-40) units/L ALT 6 L (7-56) units/L Alkaline Phosphatase 63 (35-129) units/L Total Protein 6.8 (6.3-8.2) g/dL Albumin 2.6 L (3.9-5) g/dL Calcium panel 06/11/18 Range/Units 09:07 Calcium 7.6 L (8.4-10.2) mg/dL Albumin 2.6 L (3.9-5) g/dL Pituitary panel 06/11/18 Range/Units 09:07 Sodium 142 (137-145) mmol/L Potassium 3.5 L (3.6-5.0) mmol/L Chloride 95.3 L (98-107) mmol/L Carbon Dioxide 35 H (22-30) mmol/L BUN 23 H (9-20) mg/dL Creatinine 4.2 H (0.8-1.5) mg/dL Glucose 66 L (75-100) mg/dL Calcium 7.6 L (8.4-10.2) mg/dL Adrenal panel 06/11/18 Range/Units 09:07 Sodium 142 (137-145) mmol/L Potassium 3.5 L (3.6-5.0) mmol/L Chloride 95.3 L (98-107) mmol/L Carbon Dioxide 35 H (22-30) mmol/L BUN 23 H (9-20) mg/dL Creatinine 4.2 H (0.8-1.5) mg/dL Glucose 66 L (75-100) mg/dL Calcium 7.6 L (8.4-10.2) mg/dL Total Bilirubin 0.40 (0.1-1.2) mg/dL AST 12 (5-40) units/L ALT 6 L (7-56) units/L Alkaline Phosphatase 63 (35-129) units/L Total Protein 6.8 (6.3-8.2) g/dL Albumin 2.6 L (3.9-5) g/dL - Imaging Abdominal x-ray: report reviewed, image reviewed
[2018-06-11 13:08] LABS: Band Neutrophils # (Manual) 0.3 K/mm3; Basophils % (Manual) 0 % (0.0-1.8); Total Cells Counted 100
[2018-06-11 13:10] LABS: Hypochromasia 1+; Platelet Estimate Consistent w Auto; Target Cells Few; Tear Drop Cells Rare
[2018-06-11] MEDS ORDERED: CHLORASEPTIC MM PRN (13:23)
--- NOTE | 2018-06-11 13:54 | Progress Note ---
Assessment and Plan Pericardial effusion, status post successful pericardiocentesis, we will recheck echocardiogram. Subjective Date of service: 06/11/18 Principal diagnosis: Large pericardial effusion ESRD Pleural effusion Interval history: Patient is lethargic, with NG tube to suction, no acute distress. Objective Vital Signs Temp Pulse Pulse Resp Resp BP BP 06/11/18 13:30 20 06/11/18 11:35 98.6 F 96 H 20 99/54 06/11/18 09:32 06/11/18 08:24 20 06/11/18 07:54 16 06/11/18 07:44 98.8 F 100 H 18 92/41 06/11/18 04:36 98.4 F 86 18 97/49 06/11/18 04:05 18 06/11/18 03:35 18 06/11/18 02:31 98.4 F 18 107/56 06/10/18 23:29 16 06/10/18 23:15 18 06/10/18 22:45 16 06/10/18 22:20 91 H 18 06/10/18 21:42 91 H 110/54 06/10/18 21:41 91 H 110/54 06/10/18 19:24 90 06/10/18 18:25 18 06/10/18 17:55 20 06/10/18 17:15 97.9 F 84 20 111/57 06/10/18 17:00 87 109/54 06/10/18 16:45 89 96/57 06/10/18 16:30 86 96/54 06/10/18 16:15 92 H 102/55 06/10/18 16:00 90 100/56 06/10/18 15:45 90 106/49 06/10/18 15:30 83 121/59 06/10/18 15:15 85 120/60 06/10/18 15:00 84 128/64 06/10/18 14:45 86 123/62 06/10/18 14:40 20 06/10/18 14:30 84 120/62 06/10/18 14:15 84 116/55 06/10/18 14:00 95 H 110/59 Pulse Ox 06/11/18 13:30 06/11/18 11:35 94 06/11/18 09:32 95 06/11/18 08:24 06/11/18 07:54 06/11/18 07:44 67 L 06/11/18 04:36 97 06/11/18 04:05 06/11/18 03:35 06/11/18 02:31 93 06/10/18 23:29 06/10/18 23:15 06/10/18 22:45 06/10/18 22:20 94 06/10/18 21:42 06/10/18 21:41 06/10/18 19:24 06/10/18 18:25 06/10/18 17:55 06/10/18 17:15 06/10/18 17:00 06/10/18 16:45 06/10/18 16:30 06/10/18 16:15 06/10/18 16:00 06/10/18 15:45 06/10/18 15:30 06/10/18 15:15 06/10/18 15:00 06/10/18 14:45 06/10/18 14:40 06/10/18 14:30 06/10/18 14:15 06/10/18 14:00 - Physical Examination General: Cachectic HEENT: Positive: PERRL Neck: Positive: trachea midline Cardiac: Positive: Reg Rate and Rhythm Lungs: Positive: Decreased Breath Sounds Neuro: Positive: Grossly Intact Abdomen: Positive: Unremarkable, Soft Skin: Positive: Clear Extremities: Absent: edema - Labs and Meds Cardiac Enzymes 06/11/18 Range/Units 09:07 AST 12 (5-40) units/L Coagulation 06/11/18 Range/Units 09:07 PT 17.1 H (12.2-14.9) Sec. INR 1.31 H (0.87-1.13) CBC 06/11/18 Range/Units 09:07 WBC 4.1 L (4.5-11.0) K/mm3 RBC 2.91 L (3.65-5.03) M/mm3 Hgb 7.9 L (11.8-15.2) gm/dl Hct 25.1 L (35.5-45.6) % Plt Count 273 (140-440) K/mm3 Lymph # Bi Manager Barnes # Bi Manager Eos # Bi Manager Baso # Bi Manager Comprehensive Metabolic Panel 06/11/18 Range/Units 09:07 Sodium 142 (137-145) mmol/L Potassium 3.5 L (3.6-5.0) mmol/L Chloride 95.3 L (98-107) mmol/L Carbon Dioxide 35 H (22-30) mmol/L BUN 23 H (9-20) mg/dL Creatinine 4.2 H (0.8-1.5) mg/dL Glucose 66 L (75-100) mg/dL Calcium 7.6 L (8.4-10.2) mg/dL AST 12 (5-40) units/L ALT 6 L (7-56) units/L Alkaline Phosphatase 63 (35-129) units/L Total Protein 6.8 (6.3-8.2) g/dL Albumin 2.6 L (3.9-5) g/dL - Imaging and Cardiology EKG: image reviewed
--- NOTE | 2018-06-11 13:54 | Progress Note ---
Assessment and Plan - Patient Problems (1) End stage renal disease Current Visit: No Status: Acute Plan to address problem: End-stage renal disease Access : Left arm AV fistula continue Aggressive hemodialysis (2) Acute exacerbation of CHF (congestive heart failure) Current Visit: No Status: Acute Qualifiers: Heart failure type: combined systolic and diastolic Qualified Code(s): I50.43 - Acute on chronic combined systolic (congestive) and diastolic (congestive) heart failure Plan to address problem: Acute CHF exacerbation with systolic dysfunction Reviewed echocardiogram with reduced ejection fraction 35-40% Ultrafiltration with dialysis (3) Acute on chronic respiratory failure with hypoxemia Current Visit: No Status: Acute Plan to address problem: Acute on chronic respiratory failure with hypoxemia Currently on 4 L of oxygen I reviewed CT bilateral pleural effusions Ultrafiltration : wean oxygen as tolerated. (4) Anemia Current Visit: No Status: Acute Qualifiers: Chronic kidney disease stage: on chronic dialysis Plan to address problem: Anemia secondary to chronic kidney disease Hb: 7.9 g per DL We'll give epogen 20,000 units IV 3 x weekly. (5) Small bowel obstruction Current Visit: Yes Status: Acute Plan to address problem: Small bowel obstruction NG tube in place reports nausea is improved Plan to keep potassium close to 4 possible difficulty with his ESRD status Gen. surgery following Subjective Principal diagnosis: Large pericardial effusion ESRD Pleural effusion Interval history: 28 year old with medical history of HTN , Systolic CHF , ESRD admitted with shortness of breath and found to have pericardial effusion Patient Seen today NG tube in place with large output concern for bowel obstruction no peripheral edema. Denies any shortness of breath Objective - Vital Signs Vital signs: Vital Signs - 12hr 06/11/18 06/11/18 06/11/18 02:31 03:35 04:05 Temperature 98.4 F Pulse Rate Respiratory 18 18 18 Rate Blood Pressure Blood Pressure 107/56 [Right] O2 Sat by Pulse 93 Oximetry 06/11/18 06/11/18 06/11/18 04:36 07:44 07:54 Temperature 98.4 F 98.8 F Pulse Rate 86 100 H Respiratory 18 18 16 Rate Blood Pressure 97/49 92/41 Blood Pressure [Right] O2 Sat by Pulse 97 67 L Oximetry 06/11/18 06/11/18 06/11/18 08:24 09:32 11:35 Temperature 98.6 F Pulse Rate 96 H Respiratory 20 20 Rate Blood Pressure Blood Pressure 99/54 [Right] O2 Sat by Pulse 95 94 Oximetry 06/11/18 13:30 Temperature Pulse Rate Respiratory 20 Rate Blood Pressure Blood Pressure [Right] O2 Sat by Pulse Oximetry - General Appearance General appearance: cachectic, chronically ill EENT: ATNC, PERRL Neck: no JVD Respiratory: Present: Decreased Breath Sounds Cardiology: regular, S1S2 Gastrointestinal: normal, normoactive bowel sounds Integumentary: no rash Neurologic: alert and oriented x3, CN 3-12 intact Psychiatric: mood/affect appropriate - Lab 06/11/18 09:07 06/11/18 09:07 Most recent lab results Calcium 7.6 mg/dL (8.4-10.2) L 06/11/18 09:07 Magnesium 1.50 mg/dL (1.7-2.3) L 06/11/18 09:07 Medications & Allergies - Medications Allergies/Adverse Reactions: Allergies heparin Allergy (Verified 04/21/18 14:26) lowers platelets Home Medications: Home Medications Medication Instructions Recorded Confirmed Last Taken Type AtorvaSTATin [Lipitor] 40 mg PO QHS #30 tab 03/27/18 06/01/18 05/31/18 Rx Esomeprazole Magnesium [Nexium] 40 mg PO DAILY #30 capsule. 03/27/18 06/01/18 05/31/18 Rx Folic Acid/Vit B Comp W-C [Renal 1 cap PO QDAY #60 capsule 03/27/18 06/01/18 05/31/18 Rx Caps] cloNIDine [Catapres] 0.3 mg PO TID 30 Days tablet 03/27/18 06/01/18 05/31/18 Rx hydrALAZINE [Apresoline TAB] 100 mg PO TID #90 tab 03/27/18 06/01/18 05/31/18 Rx traZODone [Desyrel] 100 mg PO QHS #30 tablet 03/27/18 06/01/18 05/30/18 Rx NIFEdipine [Adalat cc] 90 mg PO BID 04/11/18 06/01/18 Unknown History Diclofenac Sodium [Voltaren] 100 gm TP Q6H #1 gel..gram. 04/21/18 06/01/18 05/31/18 Rx ALBUTEROL NEB's [Proventil 0.083% 2.5 mg IH Q4HRT PRN nebu 05/19/18 06/01/18 05/31/18 Rx NEBS] ALPRAZolam [Xanax TAB] 0.5 mg PO Q12HR #20 tablet 05/19/18 06/01/18 05/31/18 Rx Aspirin EC [Aspirin Enteric Coated 81 mg PO QDAY tablet 05/19/18 06/01/18 05/31/18 Rx TAB] AtorvaSTATin [Lipitor] 40 mg PO QHS tablet 05/19/18 06/01/18 05/31/18 Rx Carvedilol [Coreg] 25 mg PO BID tablet 05/19/18 06/01/18 05/31/18 Rx Active Medications: Generic Name Dose Route Start Last Admin Trade Name Freq PRN Reason Stop Dose Admin Acetaminophen 650 mg 06/01/18 03:09 Tylenol PO Q4H PRN Pain MILD(1-3)/Fever >100.5/JENKINS Albuterol 2.5 mg 06/01/18 21:04 Proventil IH Q4HRT PRN Shortness Of Breath Alprazolam 0.5 mg 06/01/18 22:00 06/10/18 21:44 Xanax PO Not Given Q12HR CHONG Aspirin 81 mg 06/02/18 10:00 06/10/18 10:00 Halfprin Ec PO Not Given QDAY CHONG Atorvastatin Calcium 40 mg 06/01/18 22:00 06/10/18 21:42 Lipitor PO Not Given QHS CHONG Carvedilol 25 mg 06/01/18 22:00 06/11/18 08:00 Coreg PO Not Given BID CHONG Clonidine HCl 0.1 mg 06/02/18 08:00 06/11/18 13:38 Catapres PO Not Given TID CHONG Clonidine HCl 0.2 mg 06/02/18 08:00 06/11/18 13:39 Catapres PO Not Given TID CHONG Epoetin Davis 20,000 unit 06/03/18 10:43 06/08/18 13:30 Procrit IV 20,000 unit APRIL PRN Administration hemodialysis Hydralazine HCl 100 mg 06/02/18 08:00 06/11/18 13:37 Apresoline PO Not Given TID CHONG Hydromorphone HCl 0.5 mg 06/09/18 15:56 06/11/18 13:30 Dilaudid IV 0.5 mg Q4H PRN Administration Pain , Severe (7-10) Sodium Chloride 1,000 mls @ 50 mls/hr 06/10/18 01:00 06/11/18 03:35 Nacl 0.9% 1000 Ml IV 50 mls/hr DIRECT CHONG Administration Lorazepam 1 mg 06/02/18 17:04 06/11/18 01:01 Ativan IV 1 mg Q6H PRN Administration Anxiety Multivit/Ca Carb/B Cmplx/FA/Prenat 1 cap 06/02/18 10:00 06/10/18 10:00 Renal Caps PO Not Given QDAY [facility] Nifedipine 90 mg 06/01/18 22:00 06/11/18 08:00 Procardia Xl PO Not Given BID@0800,1700 [facility] Ondansetron HCl 4 mg 06/10/18 00:41 06/11/18 13:30 Zofran IV 4 mg Q4H PRN Administration Nausea And Vomiting Pantoprazole Sodium 40 mg 06/02/18 10:00 06/10/18 10:00 Protonix PO Not Given DAILY [facility] Phenol 1 spray 06/11/18 13:23 Chloraseptic MM PRN PRN Sore Throat Promethazine HCl 25 mg 06/09/18 15:55 06/09/18 16:56 Phenergan PO 25 mg Q6H PRN Administration Nausea And Vomiting Sodium Chloride 10 ml 06/01/18 10:00 06/10/18 22:39 Sodium Chloride Flush Syringe 10 Ml IV 10 ml BID CHONG Administration Trazodone HCl 100 mg 06/01/18 22:00 06/10/18 21:43 Desyrel PO Not Given QHS [facility]
--- NOTE | 2018-06-11 18:18 | Cat Scan Report ---
CT ABDOMEN PELVIS WO CON CLINICAL INDICATION: Male, 28 years of age. check for bowel obstruction COMPARISON: CT abdomen and pelvis from yesterday. TECHNIQUE: Contiguous axial images were obtained. This CT exam was performed using one or more of th e following dose reduction techniques: automated exposure control, adjustment of the mA and/or kV acc ording to patient size, or use of iterative reconstruction technique. Additional sagittal and coronal reformatted images were obtained. Enteric contrast administered. FINDINGS: There is dilatation of the majority of small bowel loops. In the left hemipelvis, small bow el loops with the most dilated measuring up to 4.5 cm in diameter. This is stable from prior study. E nteric contrast extends more decompressed distal small bowel loops compatible with partial small ritchie l obstruction rather than complete small bowel obstruction. Focal wall thickening of small bowel loop s in the right mid abdomen (series 2, image 120). This could represent a potential transition point. Sclerotic focal inflammation of bowel in the region. Colon remains normal in caliber. Moderate stool in the colon. The appendix is normal in caliber. No free air or pneumatosis. Prominent diffuse body wall edema. Moderate large amount of ascites. Moderate bilateral pleural effus ions at the lung bases. Visualized heart is enlarged. NG tube is present with distal tip extending to the mid stomach. No calcified gallstones. Stable enlargement of the liver and spleen. Pancreas and adrenal glands are unremarkable. Stable marked atrophy of the kidneys. No hydronephrosis. Aorta is normal in caliber. Mo derate to severe calcified plaque along the aorta. Urinary bladder is partially decompressed. Prostat e gland is grossly unremarkable. Diffuse sclerosis of the bony pelvis and lumbar spine compatible with renal osteodystrophy. Lumbar ve rtebral body heights preserved. Bony pelvis is grossly intact. IMPRESSION: 1. Persistent dilatation of the majority of small bowel loops throughout the abdomen and pelvis. Inte rval placement of NG tube with partial decompression of the small bowel loops. Distal small bowel loo ps relatively normal in caliber and decompressed. There is a questionable transition point at right m id abdomen which may relate to focal enteritis in the region. Mucosal based mass or lesion not exclud ed. No evidence of complete small bowel obstruction. Enteric contrast extends distal small bowel loop s. Normal caliber colon. 2. No free air or pneumatosis. Diffuse edema similar to prior study. Stable anasarca with moderate la rge amount of ascites and pleural effusions at the lung bases. 3. Wall thickening of the urinary bladder centrally advised decompressed state. Cholecystitis not exc luded. 4. Stable marked atrophy of the bilateral kidneys. No hydronephrosis. This document is electronically signed by Maura Disla DO., June 11 2018 06:16:22 PM ET
[2018-06-11] MEDS: SODIUM CHLORIDE FLUSH SYRINGE 10 ML IV SCH ×2 (18:47→22:58)
--- NOTE | 2018-06-11 19:25 | Event Note ---
Date: 06/11/18 I discussed patient's condition , findings of the imaging studies and treatment plan With the mother in patient's room over the phone in detail, she had many questions and concerns Answered all of them. She verbalizes understanding
[2018-06-11] MEDS: DESYREL PO SCH (21:27)
[2018-06-12] MEDS: ATIVAN IV PRN (00:33)
[2018-06-12] MEDS: PROCARDIA XL PO SCH ×2 (08:00→17:38)
[2018-06-12] MEDS: CATAPRES PO SCH ×6 (08:00→21:59)
[2018-06-12] MEDS: APRESOLINE PO SCH ×3 (08:00→21:59)
[2018-06-12] MEDS: DILAUDID IV PRN ×2 (08:33→22:03)
[2018-06-12] MEDS ORDERED: THORAZINE 25 MG in NACL 0.9% 50 ML IV ONE (08:56)
--- NOTE | 2018-06-12 09:00 | Progress Note ---
Assessment and Plan - Patient Problems (1) SBO (small bowel obstruction) Current Visit: No Status: Acute Plan to address problem: Pt stable. CT showed partial bowel obstruction. XR today shows contrast in colon. Pt starting passing flatus today. Will leave NGT out for now. 1) Chlorpromazine for hiccups 2) reglan for 3 days to help with motility 3) Keep NPO for now 4) Leave NGT out Will follow along. Please call with questions. Time=10min Subjective Date of service: 06/12/18 Patient Reports: Positive: feels better, pain is less, flatus, no bowel movement. Negative: nausea, vomiting Objective Vital Signs - 12hr 06/11/18 06/11/18 06/11/18 21:26 22:35 22:57 Temperature Pulse Rate 82 Pulse Rate [ 82 Apical] Respiratory 18 18 Rate Respiratory Rate [Chest] Blood Pressure 108/54 O2 Sat by Pulse 99 Oximetry 06/11/18 06/11/18 06/11/18 23:15 23:27 23:28 Temperature 98.1 F Pulse Rate 80 Pulse Rate [ Apical] Respiratory 18 20 Rate Respiratory 18 Rate [Chest] Blood Pressure 99/43 O2 Sat by Pulse 99 Oximetry 06/12/18 06/12/18 03:57 08:13 Temperature 98.3 F 98.4 F Pulse Rate 84 Pulse Rate [ Apical] Respiratory 20 18 Rate Respiratory Rate [Chest] Blood Pressure 98/32 107/55 O2 Sat by Pulse 99 Oximetry - General physical appearance no distress, no pain - Eyes deviation - Respiratory normal expansion, normal respiratory effort - Abdomen soft, not tender, bowel sounds hypoactive, distended (minimal), not guarding, not rigid - Integumentary no rash, no growths, no abnormal pigmentation - Psychiatric oriented to time, oriented to person, oriented to place, speech is normal, memory intact - Labs 06/11/18 09:07 06/11/18 09:07 Diabetes panel 06/11/18 Range/Units 09:07 Sodium 142 (137-145) mmol/L Potassium 3.5 L (3.6-5.0) mmol/L Chloride 95.3 L (98-107) mmol/L Carbon Dioxide 35 H (22-30) mmol/L BUN 23 H (9-20) mg/dL Creatinine 4.2 H (0.8-1.5) mg/dL Glucose 66 L (75-100) mg/dL Calcium 7.6 L (8.4-10.2) mg/dL AST 12 (5-40) units/L ALT 6 L (7-56) units/L Alkaline Phosphatase 63 (35-129) units/L Total Protein 6.8 (6.3-8.2) g/dL Albumin 2.6 L (3.9-5) g/dL Calcium panel 06/11/18 Range/Units 09:07 Calcium 7.6 L (8.4-10.2) mg/dL Albumin 2.6 L (3.9-5) g/dL Pituitary panel 06/11/18 Range/Units 09:07 Sodium 142 (137-145) mmol/L Potassium 3.5 L (3.6-5.0) mmol/L Chloride 95.3 L (98-107) mmol/L Carbon Dioxide 35 H (22-30) mmol/L BUN 23 H (9-20) mg/dL Creatinine 4.2 H (0.8-1.5) mg/dL Glucose 66 L (75-100) mg/dL Calcium 7.6 L (8.4-10.2) mg/dL Adrenal panel 06/11/18 Range/Units 09:07 Sodium 142 (137-145) mmol/L Potassium 3.5 L (3.6-5.0) mmol/L Chloride 95.3 L (98-107) mmol/L Carbon Dioxide 35 H (22-30) mmol/L BUN 23 H (9-20) mg/dL Creatinine 4.2 H (0.8-1.5) mg/dL Glucose 66 L (75-100) mg/dL Calcium 7.6 L (8.4-10.2) mg/dL Total Bilirubin 0.40 (0.1-1.2) mg/dL AST 12 (5-40) units/L ALT 6 L (7-56) units/L Alkaline Phosphatase 63 (35-129) units/L Total Protein 6.8 (6.3-8.2) g/dL Albumin 2.6 L (3.9-5) g/dL
--- NOTE | 2018-06-12 09:21 | XRay Report ---
KUB: 06/12/18 07:42 CLINICAL: Assess retained contrast. FINDINGS: Significant stool and retained CT contrast in the the colon. Contrast is identified in the right colon, transverse colon and to lesser degree the descending colon. No distended bowel and no air-fluid levels. No tubes or lines. IMPRESSION: Significant retained CT contrast and stool in the colon.
[2018-06-12] MEDS: PROTONIX PO SCH (09:29)
[2018-06-12] MEDS: Renal Caps PO SCH (09:29)
[2018-06-12] MEDS: HALFPRIN EC PO SCH (09:29)
[2018-06-12] MEDS: COREG PO SCH ×2 (09:29→21:59)
[2018-06-12] MEDS: SODIUM CHLORIDE FLUSH SYRINGE 10 ML IV SCH ×2 (09:29→22:00)
[2018-06-12] MEDS: XANAX PO SCH ×2 (09:29→21:59)
--- NOTE | 2018-06-12 10:29 | Progress Note ---
Assessment and Plan Impression * End-stage renal disease * Congestive heart failure * Pericardial effusion * Partial small bowel obstruction * Anemia secondary to ESRD * Noncompliance * Hypomagnesemia Recommendations * Given his pericardial effusion patient needs aggressive dialysis. * Offered dialysis to patient today. However he is refusing * Continue dialysis on TTS scheduled for now * Patient is status post pericardiocentesis * Surgical notes appreciated * Procrit with dialysis * Hold phosphate binders for now * Replace magnesium * His overall prognosis appears to be poor Subjective Date of service: 06/12/18 Principal diagnosis: Large pericardial effusion ESRD Pleural effusion Interval history: Patient is comfortable this morning. Denies any nausea or vomiting. NG tube remains out. Objective - Vital Signs Vital signs: Vital Signs - 12hr 06/11/18 06/11/18 06/11/18 22:35 22:57 23:15 Temperature Pulse Rate Pulse Rate [ 82 Apical] Respiratory 18 18 Rate Respiratory 18 Rate [Chest] Blood Pressure O2 Sat by Pulse 99 Oximetry 06/11/18 06/11/18 06/12/18 23:27 23:28 03:57 Temperature 98.1 F 98.3 F Pulse Rate 80 Pulse Rate [ Apical] Respiratory 18 20 20 Rate Respiratory Rate [Chest] Blood Pressure 99/43 98/32 O2 Sat by Pulse 99 Oximetry 06/12/18 08:13 Temperature 98.4 F Pulse Rate 84 Pulse Rate [ Apical] Respiratory 18 Rate Respiratory Rate [Chest] Blood Pressure 107/55 O2 Sat by Pulse 99 Oximetry - General Appearance General appearance: chronically ill, frail EENT: PERRL, mucous membranes moist Neck: no JVD, no thyromegaly, no carotid bruit, supple Respiratory: Present: Decreased Breath Sounds (at the bases) Cardiology: regular, normal heart rate Gastrointestinal: normoactive bowel sounds, other (mild diffuse tenderness) Integumentary: other (no edema. AV fistula in his left upper arm. Good bruit and thrill.) - Lab 06/11/18 09:07 06/11/18 09:07 Most recent lab results Calcium 7.6 mg/dL (8.4-10.2) L 06/11/18 09:07 Magnesium 1.50 mg/dL (1.7-2.3) L 06/11/18 09:07 Medications & Allergies - Medications Allergies/Adverse Reactions: Allergies heparin Allergy (Verified 04/21/18 14:26) lowers platelets Home Medications: Home Medications Medication Instructions Recorded Confirmed Last Taken Type AtorvaSTATin [Lipitor] 40 mg PO QHS #30 tab 03/27/18 06/01/18 05/31/18 Rx Esomeprazole Magnesium [Nexium] 40 mg PO DAILY #30 capsule. 03/27/18 06/01/18 05/31/18 Rx Folic Acid/Vit B Comp W-C [Renal 1 cap PO QDAY #60 capsule 03/27/18 06/01/18 05/31/18 Rx Caps] cloNIDine [Catapres] 0.3 mg PO TID 30 Days tablet 03/27/18 06/01/18 05/31/18 Rx hydrALAZINE [Apresoline TAB] 100 mg PO TID #90 tab 03/27/18 06/01/18 05/31/18 Rx traZODone [Desyrel] 100 mg PO QHS #30 tablet 03/27/18 06/01/18 05/30/18 Rx NIFEdipine [Adalat cc] 90 mg PO BID 04/11/18 06/01/18 Unknown History Diclofenac Sodium [Voltaren] 100 gm TP Q6H #1 gel..gram. 04/21/18 06/01/18 05/31/18 Rx ALBUTEROL NEB's [Proventil 0.083% 2.5 mg IH Q4HRT PRN nebu 05/19/18 06/01/18 05/31/18 Rx NEBS] ALPRAZolam [Xanax TAB] 0.5 mg PO Q12HR #20 tablet 05/19/18 06/01/18 05/31/18 Rx Aspirin EC [Aspirin Enteric Coated 81 mg PO QDAY tablet 05/19/18 06/01/18 05/31/18 Rx TAB] AtorvaSTATin [Lipitor] 40 mg PO QHS tablet 05/19/18 06/01/18 05/31/18 Rx Carvedilol [Coreg] 25 mg PO BID tablet 05/19/18 06/01/18 05/31/18 Rx Active Medications: Generic Name Dose Route Start Last Admin Trade Name Freq PRN Reason Stop Dose Admin Acetaminophen 650 mg 06/01/18 03:09 Tylenol PO Q4H PRN Pain MILD(1-3)/Fever >100.5/JENKINS Albuterol 2.5 mg 06/01/18 21:04 Proventil IH Q4HRT PRN Shortness Of Breath Alprazolam 0.5 mg 06/01/18 22:00 06/12/18 09:29 Xanax PO Not Given Q12HR [facility] Aspirin 81 mg 06/02/18 10:00 06/12/18 09:29 Halfprin Ec PO Not Given QDAY [facility] Atorvastatin Calcium 40 mg 06/01/18 22:00 06/11/18 21:27 Lipitor PO Not Given QHS [facility] Carvedilol 25 mg 06/01/18 22:00 06/12/18 09:29 Coreg PO Not Given BID [facility] Clonidine HCl 0.1 mg 06/02/18 08:00 06/12/18 08:00 Catapres PO Not Given TID [facility] Clonidine HCl 0.2 mg 06/02/18 08:00 06/12/18 08:00 Catapres PO Not Given TID [facility] Epoetin Davis 20,000 unit 06/03/18 10:43 06/08/18 13:30 Procrit IV 20,000 unit APRIL PRN Administration hemodialysis Hydralazine HCl 100 mg 06/02/18 08:00 06/12/18 08:00 Apresoline PO Not Given TID [facility] Hydromorphone HCl 0.5 mg 06/09/18 15:56 06/12/18 08:33 Dilaudid IV 0.5 mg Q4H PRN Administration Pain , Severe (7-10) Sodium Chloride 1,000 mls @ 50 mls/hr 06/10/18 01:00 06/11/18 22:56 Nacl 0.9% 1000 Ml IV 50 mls/hr DIRECT CHONG Administration Chlorpromazine HCl 25 mg/ 51 mls @ 100 mls/hr 06/12/18 08:56 Sodium Chloride IV 06/12/18 09:26 ONCE ONE Lorazepam 1 mg 06/02/18 17:04 06/12/18 00:33 Ativan IV 1 mg Q6H PRN Administration Anxiety Metoclopramide HCl 5 mg 06/12/18 12:00 Reglan IV Q6HR [facility] Multivit/Ca Carb/B Cmplx/FA/Prenat 1 cap 06/02/18 10:00 06/12/18 09:29 Renal Caps PO Not Given QDAY [facility] Nifedipine 90 mg 06/01/18 22:00 06/12/18 08:00 Procardia Xl PO Not Given BID@0800,1700 [facility] Ondansetron HCl 4 mg 06/10/18 00:41 06/11/18 17:16 Zofran IV 4 mg Q4H PRN Administration Nausea And Vomiting Pantoprazole Sodium 40 mg 06/02/18 10:00 06/12/18 09:29 Protonix PO Not Given DAILY [facility] Phenol 1 spray 06/11/18 13:23 06/11/18 18:52 Chloraseptic MM 1 spray PRN PRN Administration Sore Throat Promethazine HCl 25 mg 06/09/18 15:55 06/09/18 16:56 Phenergan PO 25 mg Q6H PRN Administration Nausea And Vomiting Sodium Chloride 10 ml 06/01/18 10:00 06/12/18 09:29 Sodium Chloride Flush Syringe 10 Ml IV Not Given BID [facility] Trazodone HCl 100 mg 06/01/18 22:00 06/11/18 21:27 Desyrel PO Not Given QHS [facility]
[2018-06-12 10:58] LABS: Calcium 7.9 mg/dL (8.4-10.2)
[2018-06-12] MEDS ORDERED: NACL 0.9% IV ONE (11:00)
[2018-06-12] MEDS ORDERED: MAGNESIUM SULFATE 1 GM in NACL 0.9% 50 ML IV ONE (11:00)
[2018-06-12] MEDS ORDERED: THORAZINE IV ONE (11:00)
--- NOTE | 2018-06-12 12:32 | Progress Note ---
Assessment and Plan Assessment and plan: --Partial Small bowel obstruction Nothing by mouth, NG tube Was pulled out by the patient Last night, the patient imaging study, partial small bowel obstruction Advised continue empiric, surgery following Continue TPN --Intractable nausea vomiting: Partial Small bowel obstruction, significantly improved -- Pericardial effusion/no tamponade Pericardiocentesis and removal of 1400 mL pericardial fluid Sent for analysis, patient feels slightly better Moderate pericardial effusion on CT abdomen done today -- Bilateral Pleural effusion Had recent Thoracentesis, Supportive care Consult pulmonary PRN , consider thoracentesis if needed -- ESRD needing dialysis on hemodialysis Continue HD as per schedule, nephrology following -- Elevated troponin I level Nonspecific due to to Esrd, cardiology following --HTN (hypertension) Moderate control, continue current antihypertensives When necessary medications --Chronic combined systolic and diastolic congestive heart failure continue current management, cardiology following -- HLD (hyperlipidemia) Cont statins, low-cholesterol diet --GERD (gastroesophageal reflux disease) Cont PPI's -- DVT prophylaxis SCDs Consultants nephrology , surgery , cardiology recommendations noted and appreciated Patient's condition and treatment plan discussed in detail to the patient and his nurse History Interval history: Patient seen and examined medical records reviewed Patient pulled out NG tube last night Patient had flatus, feels slightly better No new complaints Vital signs reviewed Hospitalist Physical - Constitutional Vitals: Temp Pulse Resp BP Pulse Ox 97.9 F 82 18 109/64 94 06/12/18 11:47 06/12/18 11:47 06/12/18 11:47 06/12/18 11:47 06/12/18 11:47 General appearance: Present: mild distress, cachectic, disheveled, other (dehydrated chronically ill-looking) - EENT Eyes: Present: PERRL, EOM intact - Neck Neck: Present: supple, normal ROM - Respiratory Respiratory effort: normal Respiratory: bilateral: diminished, negative: rales, rhonchi, wheezing - Cardiovascular Rhythm: regular Heart Sounds: Present: S1 & S2 - Extremities Extremities: no ischemia, No edema - Abdominal General gastrointestinal: soft, non-tender, non-distended, normal bowel sounds - Integumentary Integumentary: Present: clear, warm - Psychiatric Psychiatric: appropriate mood/affect, cooperative - Neurologic Neurologic: CNII-XII intact, moves all extremities Results - Labs CBC & Chem 7: 06/11/18 09:07 06/12/18 10:00 Labs: Laboratory Last Values WBC 4.1 K/mm3 (4.5-11.0) L 06/11/18 09:07 RBC 2.91 M/mm3 (3.65-5.03) L 06/11/18 09:07 Hgb 7.9 gm/dl (11.8-15.2) L 06/11/18 09:07 Hct 25.1 % (35.5-45.6) L 06/11/18 09:07 MCV 86 fl (84-94) 06/11/18 09:07 MCH 27 pg (28-32) L 06/11/18 09:07 MCHC 32 % (32-34) 06/11/18 09:07 RDW 19.0 % (13.2-15.2) H 06/11/18 09:07 Plt Count 273 K/mm3 (140-440) 06/11/18 09:07 Lymph % (Auto) Tapper Bit 06/11/18 09:07 [place] % (Auto) Tapper Bit 06/11/18 09:07 Eos % (Auto) Tapper Bit 06/11/18 09:07 Baso % (Auto) Tapper Bit 06/11/18 09:07 Lymph # Tapper Bit 06/11/18 09:07 [place] # Tapper Bit 06/11/18 09:07 Eos # Tapper Bit 06/11/18 09:07 Baso # Tapper Bit 06/11/18 09:07 Add Manual Diff Complete 06/11/18 09:07 Total Counted 100 06/11/18 09:07 Seg Neutrophils % Tapper Bit 06/11/18 09:07 Seg Neuts % (Manual) 57.0 % (40.0-70.0) 06/11/18 09:07 Band Neutrophils % 7.0 % 06/11/18 09:07 Lymphocytes % (Manual) 12.0 % (13.4-35.0) L 06/11/18 09:07 Reactive Lymphs % (Man) 0 % 06/11/18 09:07 Monocytes % (Manual) 17.0 % (0.0-7.3) H 06/11/18 09:07 Eosinophils % (Manual) 7.0 % (0.0-4.3) H 06/11/18 09:07 Basophils % (Manual) 0 % (0.0-1.8) 06/11/18 09:07 Metamyelocytes % 0 % 06/11/18 09:07 Myelocytes % 0 % 06/11/18 09:07 Promyelocytes % 0 % 06/11/18 09:07 Blast Cells % 0 % 06/11/18 09:07 Nucleated RBC % Not Reportable 06/11/18 09:07 Seg Neutrophils # Tapper Bit 06/11/18 09:07 Seg Neutrophils # Man 2.3 K/mm3 (1.8-7.7) 06/11/18 09:07 Band Neutrophils # 0.3 K/mm3 06/11/18 09:07 Lymphocytes # (Manual) 0.5 K/mm3 (1.2-5.4) L 06/11/18 09:07 Abs React Lymphs (Man) 0.0 K/mm3 06/11/18 09:07 Monocytes # (Manual) 0.7 K/mm3 (0.0-0.8) 06/11/18 09:07 Eosinophils # (Manual) 0.3 K/mm3 (0.0-0.4) 06/11/18 09:07 Basophils # (Manual) 0.0 K/mm3 (0.0-0.1) 06/11/18 09:07 Metamyelocytes # 0.0 K/mm3 06/11/18 09:07 Myelocytes # 0.0 K/mm3 06/11/18 09:07 Promyelocytes # 0.0 K/mm3 06/11/18 09:07 Blast Cells # 0.0 K/mm3 06/11/18 09:07 WBC Morphology Not Reportable 06/11/18 09:07 Hypersegmented Neuts Not Reportable 06/11/18 09:07 Hyposegmented Neuts Not Reportable 06/11/18 09:07 Hypogranular Neuts Not Reportable 06/11/18 09:07 Smudge Cells Not Reportable 06/11/18 09:07 Toxic Granulation Not Reportable 06/11/18 09:07 Toxic Vacuolation Not Reportable 06/11/18 09:07 Dohle Bodies Not Reportable 06/11/18 09:07 Pelger-Huet Anomaly Not Reportable 06/11/18 09:07 Duy Rods Not Reportable 06/11/18 09:07 Platelet Estimate Consistent w auto 06/11/18 09:07 Clumped Platelets Not Reportable 06/11/18 09:07 Plt Clumps, EDTA Not Reportable 06/11/18 09:07 Large Platelets Not Reportable 06/11/18 09:07 Giant Platelets Not Reportable 06/11/18 09:07 Platelet Satelliting Not Reportable 06/11/18 09:07 Plt Morphology Comment Not Reportable 06/11/18 09:07 RBC Morphology Not Reportable 06/11/18 09:07 Dimorphic RBCs Not Reportable 06/11/18 09:07 Polychromasia Few 06/11/18 09:07 Hypochromasia 1+ 06/11/18 09:07 Poikilocytosis Not Reportable 06/11/18 09:07 Anisocytosis Not Reportable 06/11/18 09:07 Microcytosis Not Reportable 06/11/18 09:07 Macrocytosis Not Reportable 06/11/18 09:07 Spherocytes Not Reportable 06/11/18 09:07 Pappenheimer Bodies Not Reportable 06/11/18 09:07 Sickle Cells Not Reportable 06/11/18 09:07 Target Cells Few 06/11/18 09:07 Tear Drop Cells Rare 06/11/18 09:07 Ovalocytes Not Reportable 06/11/18 09:07 Helmet Cells Not Reportable 06/11/18 09:07 Levy-Oelrichs Bodies Not Reportable 06/11/18 09:07 [place] Rings Not Reportable 06/11/18 09:07 Roger Cells Not Reportable 06/11/18 09:07 Bite Cells Not Reportable 06/11/18 09:07 Crenated Cell Not Reportable 06/11/18 09:07 Elliptocytes Not Reportable 06/11/18 09:07 Acanthocytes (Spur) Not Reportable 06/11/18 09:07 Rouleaux Not Reportable 06/11/18 09:07 Hemoglobin C Crystals Not Reportable 06/11/18 09:07 Schistocytes Not Reportable 06/11/18 09:07 Malaria parasites Not Reportable 06/11/18 09:07 Adriel Bodies Not Reportable 06/11/18 09:07 Hem Pathologist Commnt No 06/11/18 09:07 PT 17.1 Sec. (12.2-14.9) H 06/11/18 09:07 INR 1.31 (0.87-1.13) H 06/11/18 09:07 APTT 34.5 Sec. (24.2-36.6) 05/31/18 20:50 Sodium 145 mmol/L (137-145) 06/12/18 10:00 Potassium 3.3 mmol/L (3.6-5.0) L 06/12/18 10:00 Chloride 94.7 mmol/L (98-107) L 06/12/18 10:00 Carbon Dioxide 43 mmol/L (22-30) H* D 06/12/18 10:00 Anion Gap 11 mmol/L 06/12/18 10:00 BUN 33 mg/dL (9-20) H 06/12/18 10:00 Creatinine 6.1 mg/dL (0.8-1.5) H 06/12/18 10:00 Estimated GFR 11 ml/min 06/12/18 10:00 BUN/Creatinine Ratio 5 % 06/12/18 10:00 Glucose 78 mg/dL (75-100) 06/12/18 10:00 POC Glucose 79 (70-105) 06/12/18 06:53 Calcium 7.9 mg/dL (8.4-10.2) L 06/12/18 10:00 Phosphorus 4.80 mg/dL (2.5-4.5) H 06/12/18 10:00 Magnesium 1.70 mg/dL (1.7-2.3) 06/12/18 10:00 Iron 30 ug/dL (49-181) L 06/01/18 10:24 TIBC 163 mcg/dL (250-450) L 06/01/18 10:24 Total Bilirubin 0.40 mg/dL (0.1-1.2) 06/11/18 09:07 AST 12 units/L (5-40) 06/11/18 09:07 ALT 6 units/L (7-56) L 06/11/18 09:07 Alkaline Phosphatase 63 units/L (35-129) 06/11/18 09:07 Total Creatine Kinase 42 units/L (55-170) L 06/01/18 10:42 CK-MB (CK-2) 4.6 ng/mL (0.0-4.0) H 06/01/18 10:42 CK-MB (CK-2) Rel Index 10.9 (0-4) H 06/01/18 10:42 Troponin T 0.365 ng/mL (0.00-0.029) H* 06/01/18 10:42 Total Protein 6.8 g/dL (6.3-8.2) 06/11/18 09:07 Albumin 2.6 g/dL (3.9-5) L 06/11/18 09:07 Albumin/Globulin Ratio 0.6 % 06/11/18 09:07 Triglycerides 57 mg/dL (2-149) 05/31/18 20:50 Cholesterol 92 mg/dL (50-199) 05/31/18 20:50 LDL Cholesterol Direct 41 mg/dL (50-130) L 05/31/18 20:50 HDL Cholesterol 39 mg/dL (40-59) L 05/31/18 20:50 Cholesterol/HDL Ratio 2.35 % 05/31/18 20:50 Fluid Type Pericardial 06/09/18 10:57 Fluid Color Bloody 06/09/18 10:57 Fluid Appearance Bloody 06/09/18 10:57 Fluid WBC 2090 /mm3 06/09/18 10:57 Fluid RBC 07126 /mm3 06/09/18 10:57 Fluid Seg Neutrophils 52.0 % 06/09/18 10:57 Fluid Lymphocytes 7.0 % 06/09/18 10:57 Fluid Reactive Lymphs 0 % 06/09/18 10:57 Fluid Monocytes 41.0 % 06/09/18 10:57 Fluid Eosinophils 0 % 06/09/18 10:57 Fluid Basophils 0 % 06/09/18 10:57 Active Medications - Current Medications Current Medications: Generic Name Dose Route Start Last Admin Trade Name Freq PRN Reason Stop Dose Admin Acetaminophen 650 mg 06/01/18 03:09 Tylenol PO Q4H PRN Pain MILD(1-3)/Fever >100.5/JENKINS Albuterol 2.5 mg 06/01/18 21:04 Proventil IH Q4HRT PRN Shortness Of Breath Alprazolam 0.5 mg 06/01/18 22:00 06/12/18 09:29 Xanax PO Not Given Q12HR CHONG Aspirin 81 mg 06/02/18 10:00 06/12/18 09:29 Halfprin Ec PO Not Given QDAY CHONG Atorvastatin Calcium 40 mg 06/01/18 22:00 06/11/18 21:27 Lipitor PO Not Given QHS [facility] Carvedilol 25 mg 06/01/18 22:00 06/12/18 09:29 Coreg PO Not Given BID [facility] Clonidine HCl 0.1 mg 06/02/18 08:00 06/12/18 08:00 Catapres PO Not Given TID [facility] Clonidine HCl 0.2 mg 06/02/18 08:00 06/12/18 08:00 Catapres PO Not Given TID [facility] Epoetin Davis 20,000 unit 06/03/18 10:43 06/08/18 13:30 Procrit IV 20,000 unit APRIL PRN Administration hemodialysis Hydralazine HCl 100 mg 06/02/18 08:00 06/12/18 08:00 Apresoline PO Not Given TID [facility] Hydromorphone HCl 0.5 mg 06/09/18 15:56 06/12/18 08:33 Dilaudid IV 0.5 mg Q4H PRN Administration Pain , Severe (7-10) Sodium Chloride 1,000 mls @ 50 mls/hr 06/10/18 01:00 06/11/18 22:56 Nacl 0.9% 1000 Ml IV 50 mls/hr DIRECT CHONG Administration Chlorpromazine HCl 25 mg/ 501 mls @ 150 mls/hr 06/12/18 11:00 Sodium Chloride IV 06/12/18 14:20 ONCE ONE Lorazepam 1 mg 06/02/18 17:04 06/12/18 00:33 Ativan IV 1 mg Q6H PRN Administration Anxiety Metoclopramide HCl 5 mg 06/12/18 12:00 Reglan IV Q6HR [facility] Multivit/Ca Carb/B Cmplx/FA/Prenat 1 cap 06/02/18 10:00 06/12/18 09:29 Renal Caps PO Not Given QDAY [facility] Nifedipine 90 mg 06/01/18 22:00 06/12/18 08:00 Procardia Xl PO Not Given BID@0800,1700 [facility] Ondansetron HCl 4 mg 06/10/18 00:41 06/11/18 17:16 Zofran IV 4 mg Q4H PRN Administration Nausea And Vomiting Pantoprazole Sodium 40 mg 06/02/18 10:00 06/12/18 09:29 Protonix PO Not Given DAILY [facility] Phenol 1 spray 06/11/18 13:23 06/11/18 18:52 Chloraseptic MM 1 spray PRN PRN Administration Sore Throat Promethazine HCl 25 mg 06/09/18 15:55 06/09/18 16:56 Phenergan PO 25 mg Q6H PRN Administration Nausea And Vomiting Sodium Chloride 10 ml 06/01/18 10:00 06/12/18 09:29 Sodium Chloride Flush Syringe 10 Ml IV Not Given BID [facility] Trazodone HCl 100 mg 06/01/18 22:00 06/11/18 21:27 Desyrel PO Not Given QHS [facility] Nutrition/Malnutrition Assess - Dietary Evaluation Nutrition/Malnutrition Findings: Nutrition Notes Start: 06/08/18 13:47 Freq: Status: Active Protocol: Document 06/12/18 11:15 RM (Rec: 06/12/18 11:20 RM [id number]) Nutrition Notes Initial or Follow up Assessment Current Diagnosis Hypertension,Heart Failure, Small Bowel Obstruction, Hyperlipidemia Other Pertinent Diagnosis ESRD on HD (T/T/S), anemia, GERD, CP Current Diet TPN/PPN Pertinent Medications NaCl 0.9% @ 50 ml/hr Height 6 ft Weight 63.4 kg Dinosaur Body Weight (kg) 80.90 BMI 18.9 Subjective/Other Information Consulted for TPN recommendation. #1 Nutrition Diagnosis Inadequate oral intake Etiology SBO As Evidenced by Signs and Symptoms pt previous NPO status, TPN consult Is patient on ventilator? No Is Patient Ambulatory and/or Out of Bed Yes REE-([facility]-ambulatory/OOB) [ 2121.600 [id number]] Calculation Used for Recommendations [facility] Additional Notes Protein Needs: 76-82g (1.2-1. 3g/kg) Fluid Needs: 1 ml/kcal
[2018-06-12] MEDS: REGLAN IV SCH ×3 (12:38→23:29)
--- NOTE | 2018-06-12 12:47 | Progress Note ---
Assessment and Plan Pericardial effusion, status post successful pericardiocentesis, echocardiogram and recheck shows no significant recommendation. Cardiac status is stable. Subjective Date of service: 06/12/18 Principal diagnosis: Large pericardial effusion ESRD Pleural effusion Interval history: Patient is comfortable, no new cardiac complaints. Objective Vital Signs Temp Pulse Pulse Resp Resp BP BP 06/12/18 11:47 97.9 F 82 18 109/64 06/12/18 08:13 98.4 F 84 18 107/55 06/12/18 03:57 98.3 F 20 98/32 06/11/18 23:28 98.1 F 80 20 99/43 06/11/18 23:27 18 06/11/18 23:15 18 06/11/18 22:57 18 06/11/18 22:35 82 18 06/11/18 21:26 82 108/54 06/11/18 20:00 97.8 F 82 16 108/54 06/11/18 19:18 84 06/11/18 17:46 20 06/11/18 17:16 20 06/11/18 16:38 98.3 F 91 H 16 105/51 06/11/18 14:00 20 06/11/18 13:30 20 Pulse Ox 06/12/18 11:47 94 06/12/18 08:13 99 06/12/18 03:57 06/11/18 23:28 99 06/11/18 23:27 06/11/18 23:15 06/11/18 22:57 06/11/18 22:35 99 06/11/18 21:26 06/11/18 20:00 99 06/11/18 19:18 06/11/18 17:46 06/11/18 17:16 06/11/18 16:38 99 06/11/18 14:00 06/11/18 13:30 - Physical Examination General: Cachectic HEENT: Positive: PERRL Neck: Positive: trachea midline Cardiac: Positive: Reg Rate and Rhythm Lungs: Positive: Decreased Breath Sounds Neuro: Positive: Grossly Intact Abdomen: Positive: Unremarkable, Soft Skin: Positive: Clear Extremities: Absent: edema - Labs and Meds Comprehensive Metabolic Panel 06/12/18 Range/Units 10:00 Sodium 145 (137-145) mmol/L Potassium 3.3 L (3.6-5.0) mmol/L Chloride 94.7 L (98-107) mmol/L Carbon Dioxide 43 H* D (22-30) mmol/L BUN 33 H (9-20) mg/dL Creatinine 6.1 H (0.8-1.5) mg/dL Glucose 78 (75-100) mg/dL Calcium 7.9 L (8.4-10.2) mg/dL - Imaging and Cardiology EKG: image reviewed
[2018-06-12] MEDS ORDERED: TPN ADULT 1,800 ML IV SCH (20:00)
[2018-06-12] MEDS: DESYREL PO SCH (21:59)
[2018-06-13] MEDS: REGLAN IV SCH ×3 (06:40→17:13)
[2018-06-13] MEDS: DILAUDID IV PRN ×4 (06:41→21:41)
[2018-06-13 07:21] LABS: Calcium 7.5 mg/dL (8.4-10.2)
[2018-06-13] MEDS: CATAPRES PO SCH ×6 (08:00→21:23)
[2018-06-13] MEDS: APRESOLINE PO SCH ×3 (08:00→21:24)
[2018-06-13] MEDS: PROCARDIA XL PO SCH ×2 (08:00→17:13)
--- NOTE | 2018-06-13 08:15 | Progress Note ---
Assessment and Plan - Patient Problems (1) SBO (small bowel obstruction) Current Visit: No Status: Acute Plan to address problem: Pt stable. Much improved. bowel function continues. Begin clears today. Will order fluid restriction at 1000cc/day. Recommend nephrology to adjust amount as needed. If diet tolerated today, may begin to advance tomorrow. May benefit from small bowel follow through study as an out-pt and follow up with his surgeon (Dr. Valle - [facility]). Will follow along. Please call with questions. Time=10min Subjective Date of service: 06/13/18 Patient Reports: Positive: no new complaints, feels better, pain is less, flatus, bowel movement. Negative: nausea, vomiting Objective Vital Signs - 12hr 06/12/18 06/12/18 06/12/18 21:34 22:00 23:35 Temperature 98.1 F Pulse Rate 70 Respiratory 18 16 Rate Blood Pressure 117/66 O2 Sat by Pulse 96 100 Oximetry 06/13/18 06/13/18 03:54 07:48 Temperature 97.2 F L 97.9 F Pulse Rate 68 66 Respiratory 20 18 Rate Blood Pressure 112/58 114/61 O2 Sat by Pulse 100 100 Oximetry - General physical appearance no distress, no pain, other (looks better) - Respiratory normal expansion, normal respiratory effort - Abdomen soft, not distended - Psychiatric oriented to time, oriented to person, oriented to place, speech is normal, memory intact - Labs 06/11/18 09:07 06/13/18 06:32 Diabetes panel 06/12/18 06/13/18 Range/Units 10:00 06:32 Sodium 145 140 (137-145) mmol/L Potassium 3.3 L 4.0 D (3.6-5.0) mmol/L Chloride 94.7 L 90.8 L (98-107) mmol/L Carbon Dioxide 43 H* D 38 H (22-30) mmol/L BUN 33 H 35 H (9-20) mg/dL Creatinine 6.1 H 6.7 H (0.8-1.5) mg/dL Glucose 78 164 H (75-100) mg/dL Calcium 7.9 L 7.5 L (8.4-10.2) mg/dL Calcium panel 06/12/18 06/13/18 Range/Units 10:00 06:32 Calcium 7.9 L 7.5 L (8.4-10.2) mg/dL Phosphorus 4.80 H 4.70 H (2.5-4.5) mg/dL Pituitary panel 06/12/18 06/13/18 Range/Units 10:00 06:32 Sodium 145 140 (137-145) mmol/L Potassium 3.3 L 4.0 D (3.6-5.0) mmol/L Chloride 94.7 L 90.8 L (98-107) mmol/L Carbon Dioxide 43 H* D 38 H (22-30) mmol/L BUN 33 H 35 H (9-20) mg/dL Creatinine 6.1 H 6.7 H (0.8-1.5) mg/dL Glucose 78 164 H (75-100) mg/dL Calcium 7.9 L 7.5 L (8.4-10.2) mg/dL Adrenal panel 06/12/18 06/13/18 Range/Units 10:00 06:32 Sodium 145 140 (137-145) mmol/L Potassium 3.3 L 4.0 D (3.6-5.0) mmol/L Chloride 94.7 L 90.8 L (98-107) mmol/L Carbon Dioxide 43 H* D 38 H (22-30) mmol/L BUN 33 H 35 H (9-20) mg/dL Creatinine 6.1 H 6.7 H (0.8-1.5) mg/dL Glucose 78 164 H (75-100) mg/dL Calcium 7.9 L 7.5 L (8.4-10.2) mg/dL
--- NOTE | 2018-06-13 09:07 | Progress Note ---
Assessment and Plan Impression * End-stage renal disease * Congestive heart failure * Pericardial effusion * Partial small bowel obstruction * Anemia secondary to ESRD * Noncompliance * Hypomagnesemia Recommendations * Given his pericardial effusion patient needs aggressive dialysis. * Patient is scheduled for hemodialysis today . Patient refusing more frequent dialysis * Continue dialysis on TTS scheduled for now * Patient is status post pericardiocentesis * Surgical notes appreciated * Procrit with dialysis * Hold phosphate binders for now * Magnesium level is better at 1.9 * His overall prognosis appears to be poor Subjective Date of service: 06/13/18 Principal diagnosis: Large pericardial effusion ESRD Pleural effusion Interval history: Patient is comfortable this morning. Denies any nausea or vomiting. NG tube remains out. Objective - Vital Signs Vital signs: Vital Signs - 12hr 06/12/18 06/12/18 06/12/18 21:34 22:00 23:35 Temperature 98.1 F Pulse Rate 70 Respiratory 18 16 Rate Blood Pressure 117/66 O2 Sat by Pulse 96 100 Oximetry 06/13/18 06/13/18 03:54 07:48 Temperature 97.2 F L 97.9 F Pulse Rate 68 66 Respiratory 20 18 Rate Blood Pressure 112/58 114/61 O2 Sat by Pulse 100 100 Oximetry - General Appearance General appearance: chronically ill, frail EENT: PERRL, mucous membranes moist Neck: no JVD, no thyromegaly, no carotid bruit, supple Respiratory: Present: Clear to Ascultation Cardiology: regular, normal heart rate Gastrointestinal: normal, normoactive bowel sounds Integumentary: no rash, other (AV fistula left upper arm. Good bruit and thrill) - Lab 06/11/18 09:07 06/13/18 06:32 Most recent lab results Calcium 7.5 mg/dL (8.4-10.2) L 06/13/18 06:32 Phosphorus 4.70 mg/dL (2.5-4.5) H 06/13/18 06:32 Magnesium 1.90 mg/dL (1.7-2.3) 06/13/18 06:32 Medications & Allergies - Medications Allergies/Adverse Reactions: Allergies heparin Allergy (Verified 04/21/18 14:26) lowers platelets Home Medications: Home Medications Medication Instructions Recorded Confirmed Last Taken Type AtorvaSTATin [Lipitor] 40 mg PO QHS #30 tab 03/27/18 06/01/18 05/31/18 Rx Esomeprazole Magnesium [Nexium] 40 mg PO DAILY #30 capsule. 03/27/18 06/01/18 05/31/18 Rx Folic Acid/Vit B Comp W-C [Renal 1 cap PO QDAY #60 capsule 03/27/18 06/01/18 05/31/18 Rx Caps] cloNIDine [Catapres] 0.3 mg PO TID 30 Days tablet 03/27/18 06/01/18 05/31/18 Rx hydrALAZINE [Apresoline TAB] 100 mg PO TID #90 tab 03/27/18 06/01/18 05/31/18 Rx traZODone [Desyrel] 100 mg PO QHS #30 tablet 03/27/18 06/01/18 05/30/18 Rx NIFEdipine [Adalat cc] 90 mg PO BID 04/11/18 06/01/18 Unknown History Diclofenac Sodium [Voltaren] 100 gm TP Q6H #1 gel..gram. 04/21/18 06/01/18 05/31/18 Rx ALBUTEROL NEB's [Proventil 0.083% 2.5 mg IH Q4HRT PRN nebu 05/19/18 06/01/18 05/31/18 Rx NEBS] ALPRAZolam [Xanax TAB] 0.5 mg PO Q12HR #20 tablet 05/19/18 06/01/18 05/31/18 Rx Aspirin EC [Aspirin Enteric Coated 81 mg PO QDAY tablet 05/19/18 06/01/18 05/31/18 Rx TAB] AtorvaSTATin [Lipitor] 40 mg PO QHS tablet 05/19/18 06/01/18 05/31/18 Rx Carvedilol [Coreg] 25 mg PO BID tablet 05/19/18 06/01/18 05/31/18 Rx Active Medications: Generic Name Dose Route Start Last Admin Trade Name Freq PRN Reason Stop Dose Admin Acetaminophen 650 mg 06/01/18 03:09 Tylenol PO Q4H PRN Pain MILD(1-3)/Fever >100.5/JENKINS Albuterol 2.5 mg 06/01/18 21:04 Proventil IH Q4HRT PRN Shortness Of Breath Alprazolam 0.5 mg 06/01/18 22:00 06/12/18 21:59 Xanax PO Not Given Q12HR [facility] Aspirin 81 mg 06/02/18 10:00 06/12/18 09:29 Halfprin Ec PO Not Given QDAY [facility] Atorvastatin Calcium 40 mg 06/01/18 22:00 06/12/18 21:59 Lipitor PO Not Given QHS [facility] Carvedilol 25 mg 06/01/18 22:00 06/12/18 21:59 Coreg PO Not Given BID [facility] Clonidine HCl 0.1 mg 06/02/18 08:00 06/12/18 21:59 Catapres PO Not Given TID [facility] Clonidine HCl 0.2 mg 06/02/18 08:00 06/12/18 21:59 Catapres PO Not Given TID [facility] Epoetin Davis 20,000 unit 06/03/18 10:43 06/08/18 13:30 Procrit IV 20,000 unit APRIL PRN Administration hemodialysis Hydralazine HCl 100 mg 06/02/18 08:00 06/12/18 21:59 Apresoline PO Not Given TID [facility] Hydromorphone HCl 0.5 mg 06/09/18 15:56 06/13/18 06:41 Dilaudid IV 0.5 mg Q4H PRN Administration Pain , Severe (7-10) Amino Acids/Electrolytes/Dextrose 1,800 mls @ 75 mls/hr 06/12/18 20:00 06/12/18 22:00 Tpn Adult IV 06/13/18 19:59 75 mls/hr DAILY@2000 [facility] Administration Protocol Lorazepam 1 mg 06/02/18 17:04 06/12/18 00:33 Ativan IV 1 mg Q6H PRN Administration Anxiety Metoclopramide HCl 5 mg 06/12/18 12:00 06/13/18 06:40 Reglan IV [address] [facility] Administration Multivit/Ca Carb/B Cmplx/FA/Prenat 1 cap 06/02/18 10:00 06/12/18 09:29 Renal Caps PO Not Given QDAY [facility] Nifedipine 90 mg 06/01/18 22:00 06/12/18 17:38 Procardia Xl PO Not Given BID@0800,1700 [facility] Ondansetron HCl 4 mg 06/10/18 00:41 06/11/18 17:16 Zofran IV 4 mg Q4H PRN Administration Nausea And Vomiting Pantoprazole Sodium 40 mg 06/02/18 10:00 06/12/18 09:29 Protonix PO Not Given DAILY [facility] Phenol 1 spray 06/11/18 13:23 06/11/18 18:52 Chloraseptic MM 1 spray PRN PRN Administration Sore Throat Promethazine HCl 25 mg 06/09/18 15:55 06/09/18 16:56 Phenergan PO 25 mg Q6H PRN Administration Nausea And Vomiting Sodium Chloride 10 ml 06/01/18 10:00 06/12/18 22:00 Sodium Chloride Flush Syringe 10 Ml IV 10 ml BID CHONG Administration Trazodone HCl 100 mg 06/01/18 22:00 06/12/18 21:59 Desyrel PO Not Given QHS [facility]
[2018-06-13] MEDS: COREG PO SCH ×2 (10:00→21:24)
[2018-06-13] MEDS: PROTONIX PO SCH (10:00)
[2018-06-13] MEDS: XANAX PO SCH (10:00)
[2018-06-13] MEDS: Renal Caps PO SCH (10:00)
[2018-06-13] MEDS: HALFPRIN EC PO SCH (10:00)
[2018-06-13] MEDS ORDERED: NACL 0.9 (PRIMING MACHINE ONLY DIALYSIS) MC ONE (10:54)
[2018-06-13] MEDS: ZOFRAN IV PRN (10:57)
--- NOTE | 2018-06-13 11:38 | Progress Note ---
Assessment and Plan Assessment and plan: --Partial Small bowel obstruction Patient is on TPN, had flatus and bowel movement Surgery started on clear liquids, advance as tolerated If patient is able to tolerate diet. will taper and DC TPN --Intractable nausea vomiting: Resolved -- Pericardial effusion/no tamponade Pericardiocentesis and removal of 1400 mL pericardial fluid Pericardial fluid cultures negative, patient feels better Moderate pericardial effusion on CT abdomen [post procedure] -- Bilateral Pleural effusion Had recent Thoracentesis, Supportive care Consult pulmonary PRN , consider thoracentesis if needed -- ESRD needing dialysis on hemodialysis Continue HD as per schedule, nephrology following -- Elevated troponin I level Nonspecific due to to Esrd, cardiology following --HTN (hypertension) Moderate control, continue current antihypertensives When necessary medications --Chronic combined systolic and diastolic congestive heart failure continue current management, cardiology following -- HLD (hyperlipidemia) Cont statins, low-cholesterol diet --GERD (gastroesophageal reflux disease) Cont PPI's -- DVT prophylaxis SCDs Consultants nephrology , surgery , cardiology recommendations noted and appreciated Patient's condition and treatment plan discussed in detail to the patient and his nurse History Interval history: Patient seen and examined medical records reviewed Patient is tolerating clear liquid diet feels slightly better Alert awake oriented 3 Receiving hemodialysis today Vital signs noted Hospitalist Physical - Constitutional Vitals: Temp Pulse Resp BP Pulse Ox 97.9 F 75 17 114/61 96 06/13/18 07:48 06/13/18 10:00 06/13/18 10:00 06/13/18 07:48 06/13/18 10:00 General appearance: Present: mild distress, cachectic, disheveled, other (dehydrated chronically ill-looking) - EENT Eyes: Present: PERRL, EOM intact - Neck Neck: Present: supple, normal ROM - Respiratory Respiratory effort: normal Respiratory: negative: diminished, rales, rhonchi, wheezing - Cardiovascular Rhythm: regular Heart Sounds: Present: S1 & S2 - Extremities Extremities: no ischemia, No edema - Abdominal General gastrointestinal: soft, non-tender, non-distended, normal bowel sounds - Integumentary Integumentary: Present: clear, warm - Psychiatric Psychiatric: appropriate mood/affect, cooperative - Neurologic Neurologic: moves all extremities Results - Labs CBC & Chem 7: 06/11/18 09:07 06/13/18 06:32 Labs: Laboratory Last Values WBC 4.1 K/mm3 (4.5-11.0) L 06/11/18 09:07 RBC 2.91 M/mm3 (3.65-5.03) L 06/11/18 09:07 Hgb 7.9 gm/dl (11.8-15.2) L 06/11/18 09:07 Hct 25.1 % (35.5-45.6) L 06/11/18 09:07 MCV 86 fl (84-94) 06/11/18 09:07 MCH 27 pg (28-32) L 06/11/18 09:07 MCHC 32 % (32-34) 06/11/18 09:07 RDW 19.0 % (13.2-15.2) H 06/11/18 09:07 Plt Count 273 K/mm3 (140-440) 06/11/18 09:07 Lymph % (Auto) [place] 06/11/18 09:07 [place] % (Auto) [employer] [place] [employer] 06/11/18 09:07 Eos % (Auto) [employer] [place] 06/11/18 09:07 Baso % (Auto) [place] 06/11/18 09:07 Lymph # [place] 06/11/18 09:07 [place] # [employer] [place] [employer] 06/11/18 09:07 Eos # [employer] [place] 06/11/18 09:07 Baso # [place] 06/11/18 09:07 Add Manual Diff Complete 06/11/18 09:07 Total Counted 100 06/11/18 09:07 Seg Neutrophils % [place] 06/11/18 09:07 Seg Neuts % (Manual) 57.0 % (40.0-70.0) 06/11/18 09:07 Band Neutrophils % 7.0 % 06/11/18 09:07 Lymphocytes % (Manual) 12.0 % (13.4-35.0) L 06/11/18 09:07 Reactive Lymphs % (Man) 0 % 06/11/18 09:07 Monocytes % (Manual) 17.0 % (0.0-7.3) H 06/11/18 09:07 Eosinophils % (Manual) 7.0 % (0.0-4.3) H 06/11/18 09:07 Basophils % (Manual) 0 % (0.0-1.8) 06/11/18 09:07 Metamyelocytes % 0 % 06/11/18 09:07 Myelocytes % 0 % 06/11/18 09:07 Promyelocytes % 0 % 06/11/18 09:07 Blast Cells % 0 % 06/11/18 09:07 Nucleated RBC % Not Reportable 06/11/18 09:07 Seg Neutrophils # [place] 06/11/18 09:07 Seg Neutrophils # Man 2.3 K/mm3 (1.8-7.7) 06/11/18 09:07 Band Neutrophils # 0.3 K/mm3 06/11/18 09:07 Lymphocytes # (Manual) 0.5 K/mm3 (1.2-5.4) L 06/11/18 09:07 Abs React Lymphs (Man) 0.0 K/mm3 06/11/18 09:07 Monocytes # (Manual) 0.7 K/mm3 (0.0-0.8) 06/11/18 09:07 Eosinophils # (Manual) 0.3 K/mm3 (0.0-0.4) 06/11/18 09:07 Basophils # (Manual) 0.0 K/mm3 (0.0-0.1) 06/11/18 09:07 Metamyelocytes # 0.0 K/mm3 06/11/18 09:07 Myelocytes # 0.0 K/mm3 06/11/18 09:07 Promyelocytes # 0.0 K/mm3 06/11/18 09:07 Blast Cells # 0.0 K/mm3 06/11/18 09:07 WBC Morphology Not Reportable 06/11/18 09:07 Hypersegmented Neuts Not Reportable 06/11/18 09:07 Hyposegmented Neuts Not Reportable 06/11/18 09:07 Hypogranular Neuts Not Reportable 06/11/18 09:07 Smudge Cells Not Reportable 06/11/18 09:07 Toxic Granulation Not Reportable 06/11/18 09:07 Toxic Vacuolation Not Reportable 06/11/18 09:07 Dohle Bodies Not Reportable 06/11/18 09:07 Pelger-Huet Anomaly Not Reportable 06/11/18 09:07 Duy Rods Not Reportable 06/11/18 09:07 Platelet Estimate Consistent w auto 06/11/18 09:07 Clumped Platelets Not Reportable 06/11/18 09:07 Plt Clumps, EDTA Not Reportable 06/11/18 09:07 Large Platelets Not Reportable 06/11/18 09:07 Giant Platelets Not Reportable 06/11/18 09:07 Platelet Satelliting Not Reportable 06/11/18 09:07 Plt Morphology Comment Not Reportable 06/11/18 09:07 RBC Morphology Not Reportable 06/11/18 09:07 Dimorphic RBCs Not Reportable 06/11/18 09:07 Polychromasia Few 06/11/18 09:07 Hypochromasia 1+ 06/11/18 09:07 Poikilocytosis Not Reportable 06/11/18 09:07 Anisocytosis Not Reportable 06/11/18 09:07 Microcytosis Not Reportable 06/11/18 09:07 Macrocytosis Not Reportable 06/11/18 09:07 Spherocytes Not Reportable 06/11/18 09:07 Pappenheimer Bodies Not Reportable 06/11/18 09:07 Sickle Cells Not Reportable 06/11/18 09:07 Target Cells Few 06/11/18 09:07 Tear Drop Cells Rare 06/11/18 09:07 Ovalocytes Not Reportable 06/11/18 09:07 Helmet Cells Not Reportable 06/11/18 09:07 [place] Bodies Not Reportable 06/11/18 09:07 Bradford Rings Not Reportable 06/11/18 09:07 Roger Cells Not Reportable 06/11/18 09:07 Bite Cells Not Reportable 06/11/18 09:07 Crenated Cell Not Reportable 06/11/18 09:07 Elliptocytes Not Reportable 06/11/18 09:07 Acanthocytes (Spur) Not Reportable 06/11/18 09:07 Rouleaux Not Reportable 06/11/18 09:07 Hemoglobin C Crystals Not Reportable 06/11/18 09:07 Schistocytes Not Reportable 06/11/18 09:07 Malaria parasites Not Reportable 06/11/18 09:07 Adriel Bodies Not Reportable 06/11/18 09:07 Hem Pathologist Commnt No 06/11/18 09:07 PT 17.1 Sec. (12.2-14.9) H 06/11/18 09:07 INR 1.31 (0.87-1.13) H 06/11/18 09:07 APTT 34.5 Sec. (24.2-36.6) 05/31/18 20:50 Sodium 140 mmol/L (137-145) 06/13/18 06:32 Potassium 4.0 mmol/L (3.6-5.0) D 06/13/18 06:32 Chloride 90.8 mmol/L (98-107) L 06/13/18 06:32 Carbon Dioxide 38 mmol/L (22-30) H 06/13/18 06:32 Anion Gap 15 mmol/L 06/13/18 06:32 BUN 35 mg/dL (9-20) H 06/13/18 06:32 Creatinine 6.7 mg/dL (0.8-1.5) H 06/13/18 06:32 Estimated GFR 10 ml/min 06/13/18 06:32 BUN/Creatinine Ratio 5 % 06/13/18 06:32 Glucose 164 mg/dL (75-100) H 06/13/18 06:32 POC Glucose 96 (70-105) 06/13/18 05:43 Calcium 7.5 mg/dL (8.4-10.2) L 06/13/18 06:32 Phosphorus 4.70 mg/dL (2.5-4.5) H 06/13/18 06:32 Magnesium 1.90 mg/dL (1.7-2.3) 06/13/18 06:32 Iron 30 ug/dL (49-181) L 06/01/18 10:24 TIBC 163 mcg/dL (250-450) L 06/01/18 10:24 Total Bilirubin 0.40 mg/dL (0.1-1.2) 06/11/18 09:07 AST 12 units/L (5-40) 06/11/18 09:07 ALT 6 units/L (7-56) L 06/11/18 09:07 Alkaline Phosphatase 63 units/L (35-129) 06/11/18 09:07 Total Creatine Kinase 42 units/L (55-170) L 06/01/18 10:42 CK-MB (CK-2) 4.6 ng/mL (0.0-4.0) H 06/01/18 10:42 CK-MB (CK-2) Rel Index 10.9 (0-4) H 06/01/18 10:42 Troponin T 0.365 ng/mL (0.00-0.029) H* 06/01/18 10:42 Total Protein 6.8 g/dL (6.3-8.2) 06/11/18 09:07 Albumin 2.6 g/dL (3.9-5) L 06/11/18 09:07 Albumin/Globulin Ratio 0.6 % 06/11/18 09:07 Triglycerides 57 mg/dL (2-149) 05/31/18 20:50 Cholesterol 92 mg/dL (50-199) 05/31/18 20:50 LDL Cholesterol Direct 41 mg/dL (50-130) L 05/31/18 20:50 HDL Cholesterol 39 mg/dL (40-59) L 05/31/18 20:50 Cholesterol/HDL Ratio 2.35 % 05/31/18 20:50 Fluid Type Pericardial 06/09/18 10:57 Fluid Color Bloody 06/09/18 10:57 Fluid Appearance Bloody 06/09/18 10:57 Fluid WBC 2090 /mm3 06/09/18 10:57 Fluid RBC 88572 /mm3 06/09/18 10:57 Fluid Seg Neutrophils 52.0 % 06/09/18 10:57 Fluid Lymphocytes 7.0 % 06/09/18 10:57 Fluid Reactive Lymphs 0 % 06/09/18 10:57 Fluid Monocytes 41.0 % 06/09/18 10:57 Fluid Eosinophils 0 % 06/09/18 10:57 Fluid Basophils 0 % 06/09/18 10:57 Active Medications - Current Medications Current Medications: Generic Name Dose Route Start Last Admin Trade Name Freq PRN Reason Stop Dose Admin Acetaminophen 650 mg 06/01/18 03:09 Tylenol PO Q4H PRN Pain MILD(1-3)/Fever >100.5/JENKINS Albuterol 2.5 mg 06/01/18 21:04 Proventil IH Q4HRT PRN Shortness Of Breath Alprazolam 0.5 mg 06/01/18 22:00 06/12/18 21:59 Xanax PO Not Given Q12HR CHONG Aspirin 81 mg 06/02/18 10:00 06/12/18 09:29 Halfprin Ec PO Not Given QDAY [facility] Atorvastatin Calcium 40 mg 06/01/18 22:00 06/12/18 21:59 Lipitor PO Not Given QHS [facility] Carvedilol 25 mg 06/01/18 22:00 06/12/18 21:59 Coreg PO Not Given BID [facility] Clonidine HCl 0.1 mg 06/02/18 08:00 06/12/18 21:59 Catapres PO Not Given TID [facility] Clonidine HCl 0.2 mg 06/02/18 08:00 06/12/18 21:59 Catapres PO Not Given TID [facility] Epoetin Davis 20,000 unit 06/03/18 10:43 06/08/18 13:30 Procrit IV 20,000 unit APRIL PRN Administration hemodialysis Hydralazine HCl 100 mg 06/02/18 08:00 06/12/18 21:59 Apresoline PO Not Given TID [facility] Hydromorphone HCl 0.5 mg 06/09/18 15:56 06/13/18 10:56 Dilaudid IV 0.5 mg Q4H PRN Administration Pain , Severe (7-10) Amino Acids/Electrolytes/Dextrose 1,800 mls @ 75 mls/hr 06/12/18 20:00 06/12/18 22:00 Tpn Adult IV 06/13/18 19:59 75 mls/hr DAILY@2000 [facility] Administration Protocol Lorazepam 1 mg 06/02/18 17:04 06/12/18 00:33 Ativan IV 1 mg Q6H PRN Administration Anxiety Metoclopramide HCl 5 mg 06/12/18 12:00 06/13/18 06:40 Reglan IV 5 mg Q6HR [facility] Administration Multivit/Ca Carb/B Cmplx/FA/Prenat 1 cap 06/02/18 10:00 06/12/18 09:29 Renal Caps PO Not Given QDAY [facility] Nifedipine 90 mg 06/01/18 22:00 06/12/18 17:38 Procardia Xl PO Not Given BID@0800,1700 [facility] Ondansetron HCl 4 mg 06/10/18 00:41 06/13/18 10:57 Zofran IV 4 mg Q4H PRN Administration Nausea And Vomiting Pantoprazole Sodium 40 mg 06/02/18 10:00 06/12/18 09:29 Protonix PO Not Given DAILY [facility] Phenol 1 spray 06/11/18 13:23 06/11/18 18:52 Chloraseptic MM 1 spray PRN PRN Administration Sore Throat Promethazine HCl 25 mg 06/09/18 15:55 06/09/18 16:56 Phenergan PO 25 mg Q6H PRN Administration Nausea And Vomiting Sodium Chloride 10 ml 06/01/18 10:00 06/12/18 22:00 Sodium Chloride Flush Syringe 10 Ml IV 10 ml BID [facility] Administration Trazodone HCl 100 mg 06/01/18 22:00 06/12/18 21:59 Desyrel PO Not Given QHS [facility] Nutrition/Malnutrition Assess - Dietary Evaluation Nutrition/Malnutrition Findings: Nutrition Notes Start: 06/08/18 13:47 Freq: Status: Active Protocol: Document 06/12/18 11:15 RM (Rec: 06/12/18 11:20 RM [id number]) Nutrition Notes Initial or Follow up Assessment Current Diagnosis Hypertension,Heart Failure, Small Bowel Obstruction, Hyperlipidemia Other Pertinent Diagnosis ESRD on HD (T/T/S), anemia, GERD, CP Current Diet TPN/PPN Labs/Tests K 3.3, Cl 94.7, P 4.8 Pertinent Medications NaCl 0.9% @ 50 ml/hr Height 6 ft Weight 63.4 kg [place] Body Weight (kg) 80.90 BMI 18.9 Subjective/Other Information Consulted for TPN recommendation. Burn Absent Trauma Absent #1 Nutrition Diagnosis Inadequate oral intake Etiology SBO As Evidenced by Signs and Symptoms pt previous NPO status, TPN consult Is patient on ventilator? No Is Patient Ambulatory and/or Out of Bed Yes REE-([facility]-ambulatory/OOB) [ 2121.600 [id number]] Calculation Used for Recommendations [facility] Additional Notes Protein Needs: 76-82g (1.2-1. 3g/kg) Fluid Needs: 1 ml/kcal Nutrition Intervention Nutrition Support: PPN at 75 ml/hr: 6% dextrose, 4.2% AA, 70 mEq, 60 mEq K, 5 mEq Ca, 5 mEq Mg, 0 mmol P, MVI, Thiamine Kcal 644 Protein (gm) 76 Carbohydrates (gm) 100 Fat (gm) 0 Fluid (mL) 1,800 Fiber (gm) 0 Goal #1 PPN to meet nutritional needs as best possible Anticipated Discharge Needs: Unable to determine at this time Follow-Up By: 06/13/18 Additional Comments Follow for labs BMP, Phos,Mg
--- NOTE | 2018-06-13 12:21 | Event Note ---
Date: 06/13/18 Mother called. Spoke with her about Jt's abdominal status. Explained that his bowel have opened up. We will advance his diet as he tolerates it. Would recommend that he follow-up with his surgeon at [place] (Dr. Valle). This is someone he trusts and wanted to operate on him here if it were needed. She had jury duty forms and travels forms that she wanted signed. I directed her to the hospitalist team as they are primary on his care. She was appreciative.
[2018-06-13] MEDS: PROCRIT IV PRN (14:30)
--- NOTE | 2018-06-13 14:35 | Progress Note ---
Assessment and Plan Pericardial effusion, status post successful pericardiocentesis, echocardiogram on recheck shows no significant reaccumulation. Cardiac status is stable. Subjective Date of service: 06/13/18 Principal diagnosis: Large pericardial effusion ESRD Pleural effusion Interval history: Patient is comfortable in no acute distress. No new cardiac complaints. Objective Vital Signs Temp Pulse Resp BP BP Pulse Ox 06/13/18 12:15 58 L 125/73 06/13/18 12:00 61 120/74 06/13/18 11:45 60 137/79 06/13/18 11:30 60 128/82 06/13/18 11:15 58 L 125/78 06/13/18 11:00 58 L 130/81 06/13/18 10:45 98.0 F 60 18 141/81 06/13/18 10:00 75 17 96 06/13/18 07:48 97.9 F 66 18 114/61 100 06/13/18 03:54 97.2 F L 68 20 112/58 100 06/12/18 23:35 98.1 F 70 16 117/66 100 06/12/18 22:00 18 06/12/18 21:34 96 06/12/18 19:52 98.2 F 73 20 114/64 99 06/12/18 15:12 98.1 F 67 67 H 114/63 - Physical Examination General: No Apparent Distress, Cachectic HEENT: Positive: PERRL Neck: Positive: trachea midline Cardiac: Positive: Reg Rate and Rhythm Lungs: Positive: Decreased Breath Sounds Neuro: Positive: Grossly Intact Abdomen: Positive: Unremarkable, Soft Skin: Positive: Clear Extremities: Absent: edema - Labs and Meds Comprehensive Metabolic Panel 06/13/18 Range/Units 06:32 Sodium 140 (137-145) mmol/L Potassium 4.0 D (3.6-5.0) mmol/L Chloride 90.8 L (98-107) mmol/L Carbon Dioxide 38 H (22-30) mmol/L BUN 35 H (9-20) mg/dL Creatinine 6.7 H (0.8-1.5) mg/dL Glucose 164 H (75-100) mg/dL Calcium 7.5 L (8.4-10.2) mg/dL - Imaging and Cardiology EKG: image reviewed
[2018-06-13] MEDS: SODIUM CHLORIDE FLUSH SYRINGE 10 ML IV SCH ×2 (16:20→21:24)
[2018-06-13] MEDS: ATIVAN IV PRN (17:13)
[2018-06-13] MEDS ORDERED: TPN ADULT 1,800 ML IV SCH (20:00)
[2018-06-13] MEDS: DESYREL PO SCH (21:23)
[2018-06-14] MEDS: XANAX PO SCH ×3 (02:36→21:33)
[2018-06-14] MEDS: REGLAN IV SCH ×4 (02:36→17:09)
[2018-06-14 06:32] LABS: Basophils # (Auto) 0.1 K/mm3 (0.0-0.1); Eosinophils # (Auto) 0.3 K/mm3 (0.0-0.4); Eosinophils % (Auto) 4.7 % (0.0-4.3); Hematocrit 25.4 % (35.5-45.6); Hemoglobin 7.9 gm/dl (11.8-15.2); Lymphocytes % (Auto) 17.1 % (13.4-35.0); Mean Corpuscular HGB Conc 31 % (32-34); Mean Corpuscular Volume 84 fl (84-94); Monocytes # (Auto) 0.7 K/mm3 (0.0-0.8); Monocytes % (Auto) 12.5 % (0.0-7.3); Platelet Count 245 K/mm3 (140-440); Red Blood Count 3.02 M/mm3 (3.65-5.03); Red Cell Distribution Width 19.8 % (13.2-15.2)
[2018-06-14 06:51] LABS: Calcium 7.9 mg/dL (8.4-10.2)
[2018-06-14] MEDS: HALFPRIN EC PO SCH (09:44)
[2018-06-14] MEDS: PROTONIX PO SCH (09:44)
[2018-06-14] MEDS: Renal Caps PO SCH (09:44)
[2018-06-14] MEDS: APRESOLINE PO SCH ×3 (09:44→22:46)
[2018-06-14] MEDS: CATAPRES PO SCH ×6 (09:44→22:46)
[2018-06-14] MEDS: PROCARDIA XL PO SCH ×2 (09:45→17:08)
[2018-06-14] MEDS: COREG PO SCH ×2 (09:45→21:33)
[2018-06-14] MEDS: SODIUM CHLORIDE FLUSH SYRINGE 10 ML IV SCH ×2 (09:45→21:33)
--- NOTE | 2018-06-14 10:05 | Progress Note ---
Assessment and Plan Impression * End-stage renal disease * Congestive heart failure * Pericardial effusion * Partial small bowel obstruction * Anemia secondary to ESRD * Noncompliance * Hypomagnesemia Recommendations * Given his pericardial effusion patient needs aggressive dialysis. * Patient had uneventful dialysis yesterday . Patient refusing more frequent dialysis * Continue dialysis on TTS scheduled for now * Patient is status post pericardiocentesis * Surgical notes appreciated * Procrit with dialysis * Hold phosphate binders for now * Magnesium level is better at 1.9 * His overall prognosis appears to be poor Subjective Date of service: 06/14/18 Principal diagnosis: Large pericardial effusion ESRD Pleural effusion Interval history: Patient is comfortable this morning. Denies any nausea or vomiting. NG tube remains out. Currently on clear liquid diet Objective - Vital Signs Vital signs: Vital Signs - 12hr 06/14/18 06/14/18 06/14/18 00:00 00:12 03:43 Temperature 97.4 F L 97.9 F Pulse Rate 69 Respiratory 20 18 Rate Blood Pressure 78/27 88/40 Blood Pressure 83/29 [Right] O2 Sat by Pulse 99 Oximetry 06/14/18 06/14/18 06/14/18 04:21 08:10 09:04 Temperature 97.5 F L 98.7 F Pulse Rate 65 68 Respiratory 20 24 Rate Blood Pressure 91/35 93/45 Blood Pressure [Right] O2 Sat by Pulse 97 99 99 Oximetry - General Appearance General appearance: chronically ill, frail EENT: PERRL, mucous membranes moist Neck: no JVD, no thyromegaly, no carotid bruit, supple Respiratory: Present: Clear to Ascultation Cardiology: regular, normal heart rate Gastrointestinal: normal, normoactive bowel sounds Integumentary: no rash, other (no edema. AV fistula in his left arm. Good bruit and thrill.) - Lab 06/14/18 05:48 06/14/18 05:48 Most recent lab results Calcium 7.9 mg/dL (8.4-10.2) L 06/14/18 05:48 Phosphorus 2.20 mg/dL (2.5-4.5) L D 06/14/18 05:48 Magnesium 1.50 mg/dL (1.7-2.3) L 06/14/18 05:48 Medications & Allergies - Medications Allergies/Adverse Reactions: Allergies heparin Allergy (Verified 04/21/18 14:26) lowers platelets Home Medications: Home Medications Medication Instructions Recorded Confirmed Last Taken Type AtorvaSTATin [Lipitor] 40 mg PO QHS #30 tab 03/27/18 06/01/18 05/31/18 Rx Esomeprazole Magnesium [Nexium] 40 mg PO DAILY #30 capsule. 03/27/18 06/01/18 05/31/18 Rx Folic Acid/Vit B Comp W-C [Renal 1 cap PO QDAY #60 capsule 03/27/18 06/01/18 05/31/18 Rx Caps] cloNIDine [Catapres] 0.3 mg PO TID 30 Days tablet 03/27/18 06/01/18 05/31/18 Rx hydrALAZINE [Apresoline TAB] 100 mg PO TID #90 tab 03/27/18 06/01/18 05/31/18 Rx traZODone [Desyrel] 100 mg PO QHS #30 tablet 03/27/18 06/01/18 05/30/18 Rx NIFEdipine [Adalat cc] 90 mg PO BID 04/11/18 06/01/18 Unknown History Diclofenac Sodium [Voltaren] 100 gm TP Q6H #1 gel..gram. 04/21/18 06/01/18 05/31/18 Rx ALBUTEROL NEB's [Proventil 0.083% 2.5 mg IH Q4HRT PRN nebu 05/19/18 06/01/18 05/31/18 Rx NEBS] ALPRAZolam [Xanax TAB] 0.5 mg PO Q12HR #20 tablet 05/19/18 06/01/18 05/31/18 Rx Aspirin EC [Aspirin Enteric Coated 81 mg PO QDAY tablet 05/19/18 06/01/18 05/31/18 Rx TAB] AtorvaSTATin [Lipitor] 40 mg PO QHS tablet 05/19/18 06/01/18 05/31/18 Rx Carvedilol [Coreg] 25 mg PO BID tablet 05/19/18 06/01/18 05/31/18 Rx Active Medications: Generic Name Dose Route Start Last Admin Trade Name Freq PRN Reason Stop Dose Admin Acetaminophen 650 mg 06/01/18 03:09 Tylenol PO Q4H PRN Pain MILD(1-3)/Fever >100.5/JENKINS Albuterol 2.5 mg 03/21/19 21:04 Proventil IH Q4HRT PRN Shortness Of Breath Alprazolam 0.5 mg 06/01/18 22:00 06/14/18 09:44 Xanax PO 0.5 mg Q12HR CHONG Administration Aspirin 81 mg 06/02/18 10:00 06/14/18 09:44 Halfprin Ec PO 81 mg QDAY CHONG Administration Atorvastatin Calcium 40 mg 06/01/18 22:00 06/13/18 21:24 Lipitor PO 40 mg QHS CHONG Administration Carvedilol 25 mg 06/01/18 22:00 06/14/18 09:45 Coreg PO Not Given BID [facility] Clonidine HCl 0.1 mg 06/02/18 08:00 06/14/18 09:44 Catapres PO Not Given TID [facility] Clonidine HCl 0.2 mg 06/02/18 08:00 06/14/18 09:45 Catapres PO Not Given TID [facility] Epoetin Davis 20,000 unit 06/03/18 10:43 06/13/18 14:30 Procrit IV 20,000 unit APRIL PRN Administration hemodialysis Hydralazine HCl 100 mg 06/02/18 08:00 06/14/18 09:44 Apresoline PO Not Given TID [facility] Hydromorphone HCl 0.5 mg 06/09/18 15:56 06/13/18 21:41 Dilaudid IV 0.5 mg Q4H PRN Administration Pain , Severe (7-10) Amino Acids/Electrolytes/Dextrose 1,800 mls @ 75 mls/hr 06/13/18 20:00 06/13/18 22:01 Tpn Adult IV 06/14/18 19:59 75 mls/hr DAILY@2000 CHONG Administration Protocol Lorazepam 1 mg 06/02/18 17:04 06/13/18 17:13 Ativan IV 1 mg Q6H PRN Administration Anxiety Metoclopramide HCl 5 mg 06/12/18 12:00 06/14/18 06:31 Reglan IV 5 mg Q6HR CHONG Administration Multivit/Ca Carb/B Cmplx/FA/Prenat 1 cap 06/02/18 10:00 06/14/18 09:44 Renal Caps PO 1 cap QDAY CHONG Administration Nifedipine 90 mg 06/01/18 22:00 06/14/18 09:45 Procardia Xl PO Not Given BID@0800,1700 [facility] Ondansetron HCl 4 mg 06/10/18 00:41 06/13/18 10:57 Zofran IV 4 mg Q4H PRN Administration Nausea And Vomiting Pantoprazole Sodium 40 mg 06/02/18 10:00 06/14/18 09:44 Protonix PO 40 mg DAILY CHONG Administration Phenol 1 spray 06/11/18 13:23 06/11/18 18:52 Chloraseptic MM 1 spray PRN PRN Administration Sore Throat Promethazine HCl 25 mg 06/09/18 15:55 06/09/18 16:56 Phenergan PO 25 mg Q6H PRN Administration Nausea And Vomiting Sodium Chloride 10 ml 06/01/18 10:00 06/14/18 09:45 Sodium Chloride Flush Syringe 10 Ml IV 10 ml BID CHONG Administration Trazodone HCl 100 mg 06/01/18 22:00 06/13/18 21:23 Desyrel PO 100 mg QHS CHONG Administration
--- NOTE | 2018-06-14 13:05 | Progress Note ---
Assessment and Plan 28 yo M with SBO Plan; 1. patient tolerated liquids and his having bowel movements -> diet advanced to renal diet per 1' service. Would dc on full liquids for several days 2. ambulate 3. ok to dc from surgery standpoint and patient to follow up with Dr. Valle as outpatient Will s/o. Please call with questions Subjective Date of service: 06/14/18 Narrative: Pt seen and examined. No complaints. Tolerating a diet. No n/v. No abdominal pain. + BM and flatus Objective Vital Signs - 12hr 06/14/18 06/14/18 06/14/18 03:43 04:21 08:10 Temperature 97.5 F L 98.7 F Pulse Rate 65 68 Respiratory 20 24 Rate Blood Pressure 88/40 91/35 93/45 O2 Sat by Pulse 97 99 Oximetry 06/14/18 06/14/18 09:04 10:00 Temperature Pulse Rate 68 Respiratory 17 Rate Blood Pressure O2 Sat by Pulse 99 Oximetry - General physical appearance Narrative Exam: Gen; AAOx3. NAD CV: S1, S2+ Resp: even and unlabored Abd: soft, NT, ND Ext: no c/c/e - Labs 06/14/18 05:48 06/14/18 05:48 Diabetes panel 06/14/18 Range/Units 05:48 Sodium 133 L (137-145) mmol/L Potassium 3.4 L (3.6-5.0) mmol/L Chloride 91.3 L (98-107) mmol/L Carbon Dioxide 34 H (22-30) mmol/L BUN 20 (9-20) mg/dL Creatinine 3.8 H (0.8-1.5) mg/dL Glucose 115 H (75-100) mg/dL Calcium 7.9 L (8.4-10.2) mg/dL Triglycerides 93 (2-149) mg/dL Calcium panel 06/14/18 Range/Units 05:48 Calcium 7.9 L (8.4-10.2) mg/dL Phosphorus 2.20 L D (2.5-4.5) mg/dL Pituitary panel 06/14/18 Range/Units 05:48 Sodium 133 L (137-145) mmol/L Potassium 3.4 L (3.6-5.0) mmol/L Chloride 91.3 L (98-107) mmol/L Carbon Dioxide 34 H (22-30) mmol/L BUN 20 (9-20) mg/dL Creatinine 3.8 H (0.8-1.5) mg/dL Glucose 115 H (75-100) mg/dL Calcium 7.9 L (8.4-10.2) mg/dL Adrenal panel 06/14/18 Range/Units 05:48 Sodium 133 L (137-145) mmol/L Potassium 3.4 L (3.6-5.0) mmol/L Chloride 91.3 L (98-107) mmol/L Carbon Dioxide 34 H (22-30) mmol/L BUN 20 (9-20) mg/dL Creatinine 3.8 H (0.8-1.5) mg/dL Glucose 115 H (75-100) mg/dL Calcium 7.9 L (8.4-10.2) mg/dL
[2018-06-14] MEDS: DILAUDID IV PRN ×2 (13:52→21:33)
--- NOTE | 2018-06-14 14:16 | Progress Note ---
Assessment and Plan Pericardial effusion, status post successful pericardiocentesis, echocardiogram on recheck shows no significant reaccumulation. Cardiac status is stable. Subjective Date of service: 06/14/18 Principal diagnosis: Large pericardial effusion ESRD Pleural effusion Interval history: Patient is comfortable, no new cardiac complaints. Objective Vital Signs Temp Pulse Resp BP BP Pulse Ox 06/14/18 13:12 98.5 F 74 24 115/62 100 06/14/18 10:00 68 17 06/14/18 09:04 99 06/14/18 08:10 98.7 F 68 24 93/45 99 06/14/18 04:21 97.5 F L 65 20 91/35 97 06/14/18 03:43 88/40 06/14/18 00:12 97.9 F 18 78/27 06/14/18 00:00 97.4 F L 69 20 83/29 99 06/13/18 21:24 127/64 06/13/18 21:23 66 06/13/18 21:10 98 06/13/18 19:57 98.3 F 66 18 127/64 100 06/13/18 16:53 97.9 F 66 18 137/79 100 06/13/18 15:00 98.0 F 63 18 136/81 06/13/18 14:45 64 120/66 06/13/18 14:30 62 110/64 - Physical Examination General: No Apparent Distress, Cachectic HEENT: Positive: PERRL Neck: Positive: trachea midline Cardiac: Positive: Reg Rate and Rhythm Lungs: Positive: Decreased Breath Sounds Neuro: Positive: Grossly Intact Abdomen: Positive: Unremarkable, Soft Skin: Positive: Clear Extremities: Absent: edema - Labs and Meds Lipids 06/14/18 Range/Units 05:48 Triglycerides 93 (2-149) mg/dL CBC 06/14/18 Range/Units 05:48 WBC 5.7 (4.5-11.0) K/mm3 RBC 3.02 L (3.65-5.03) M/mm3 Hgb 7.9 L (11.8-15.2) gm/dl Hct 25.4 L (35.5-45.6) % Plt Count 245 (140-440) K/mm3 Lymph # 1.0 L (1.2-5.4) K/mm3 Bowman # 0.7 (0.0-0.8) K/mm3 Eos # 0.3 (0.0-0.4) K/mm3 Baso # 0.1 (0.0-0.1) K/mm3 Comprehensive Metabolic Panel 06/14/18 Range/Units 05:48 Sodium 133 L (137-145) mmol/L Potassium 3.4 L (3.6-5.0) mmol/L Chloride 91.3 L (98-107) mmol/L Carbon Dioxide 34 H (22-30) mmol/L BUN 20 (9-20) mg/dL Creatinine 3.8 H (0.8-1.5) mg/dL Glucose 115 H (75-100) mg/dL Calcium 7.9 L (8.4-10.2) mg/dL - Imaging and Cardiology EKG: image reviewed
--- NOTE | 2018-06-14 18:19 | Progress Note ---
Assessment and Plan Assessment and plan: --Partial Small bowel obstruction Symptoms significantly improved, Tolerating clear liquids, had bowel movement and flatus Surgery advance the diet as tolerated, increase ambulation Taper and DC TPN --Intractable nausea vomiting: Resolved -- Pericardial effusion/no tamponade Pericardiocentesis and removal of 1400 mL pericardial fluid Pericardial fluid cultures negative, patient feels better Moderate pericardial effusion on CT abdomen [post procedure] -- Bilateral Pleural effusion Had recent Thoracentesis, Supportive care Consult pulmonary PRN , consider thoracentesis if needed -- ESRD needing dialysis on hemodialysis Continue HD as per schedule, nephrology following -- Elevated troponin I level Nonspecific due to to Esrd, cardiology following --HTN (hypertension) Moderate control, continue current antihypertensives When necessary medications --Chronic combined systolic and diastolic congestive heart failure continue current management, cardiology following -- HLD (hyperlipidemia) Cont statins, low-cholesterol diet --GERD (gastroesophageal reflux disease) Cont PPI's -- DVT prophylaxis SCDs nephrology , surgery , cardiology recommendations noted and appreciated Increase ambulation as tolerated, Possible discharge in 1-2 days if stable Plan of care is reviewed with the patient and his nurse History Interval history: Patient seen and examined this morning medical records reviewed Patient feels better tolerating liquid diet, on TPN No new complaints Alert awake Oriented 3 Vital signs reviewed Hospitalist Physical - Constitutional Vitals: Temp Pulse Resp BP Pulse Ox 98.2 F 67 22 110/59 100 06/14/18 17:01 06/14/18 17:01 06/14/18 17:01 06/14/18 17:01 06/14/18 17:01 General appearance: Present: mild distress, cachectic, disheveled, other (dehydrated chronically ill-looking) - EENT Eyes: Present: PERRL, EOM intact - Neck Neck: Present: supple, normal ROM - Respiratory Respiratory effort: normal Respiratory: bilateral: diminished, negative: rales, rhonchi, wheezing - Cardiovascular Rhythm: regular Heart Sounds: Present: S1 & S2 - Extremities Extremities: no ischemia, No edema - Abdominal General gastrointestinal: soft, non-tender, non-distended, normal bowel sounds - Integumentary Integumentary: Present: clear, warm - Psychiatric Psychiatric: appropriate mood/affect, cooperative - Neurologic Neurologic: CNII-XII intact, moves all extremities Results - Labs CBC & Chem 7: 06/14/18 05:48 04/03/19 05:48 Labs: Laboratory Last Values WBC 5.7 K/mm3 (4.5-11.0) 06/14/18 05:48 RBC 3.02 M/mm3 (3.65-5.03) L 06/14/18 05:48 Hgb 7.9 gm/dl (11.8-15.2) L 06/14/18 05:48 Hct 25.4 % (35.5-45.6) L 06/14/18 05:48 MCV 84 fl (84-94) 06/14/18 05:48 MCH 26 pg (28-32) L 06/14/18 05:48 MCHC 31 % (32-34) L 06/14/18 05:48 RDW 19.8 % (13.2-15.2) H 06/14/18 05:48 Plt Count 245 K/mm3 (140-440) 06/14/18 05:48 Lymph % (Auto) 17.1 % (13.4-35.0) 06/14/18 05:48 [place] % (Auto) 12.5 % (0.0-7.3) H 06/14/18 05:48 Eos % (Auto) 4.7 % (0.0-4.3) H 06/14/18 05:48 Baso % (Auto) 1.0 % (0.0-1.8) 06/14/18 05:48 Lymph # 1.0 K/mm3 (1.2-5.4) L 06/14/18 05:48 [place] # 0.7 K/mm3 (0.0-0.8) 06/14/18 05:48 Eos # 0.3 K/mm3 (0.0-0.4) 06/14/18 05:48 Baso # 0.1 K/mm3 (0.0-0.1) 06/14/18 05:48 Add Manual Diff Complete 06/11/18 09:07 Total Counted 100 06/11/18 09:07 Seg Neutrophils % 64.7 % (40.0-70.0) 06/14/18 05:48 Seg Neuts % (Manual) 57.0 % (40.0-70.0) 06/11/18 09:07 Band Neutrophils % 7.0 % 06/11/18 09:07 Lymphocytes % (Manual) 12.0 % (13.4-35.0) L 06/11/18 09:07 Reactive Lymphs % (Man) 0 % 06/11/18 09:07 Monocytes % (Manual) 17.0 % (0.0-7.3) H 06/11/18 09:07 Eosinophils % (Manual) 7.0 % (0.0-4.3) H 06/11/18 09:07 Basophils % (Manual) 0 % (0.0-1.8) 06/11/18 09:07 Metamyelocytes % 0 % 06/11/18 09:07 Myelocytes % 0 % 06/11/18 09:07 Promyelocytes % 0 % 06/11/18 09:07 Blast Cells % 0 % 06/11/18 09:07 Nucleated RBC % Not Reportable 06/11/18 09:07 Seg Neutrophils # 3.7 K/mm3 (1.8-7.7) 06/14/18 05:48 Seg Neutrophils # Man 2.3 K/mm3 (1.8-7.7) 06/11/18 09:07 Band Neutrophils # 0.3 K/mm3 06/11/18 09:07 Lymphocytes # (Manual) 0.5 K/mm3 (1.2-5.4) L 06/11/18 09:07 Abs React Lymphs (Man) 0.0 K/mm3 06/11/18 09:07 Monocytes # (Manual) 0.7 K/mm3 (0.0-0.8) 06/11/18 09:07 Eosinophils # (Manual) 0.3 K/mm3 (0.0-0.4) 06/11/18 09:07 Basophils # (Manual) 0.0 K/mm3 (0.0-0.1) 06/11/18 09:07 Metamyelocytes # 0.0 K/mm3 06/11/18 09:07 Myelocytes # 0.0 K/mm3 06/11/18 09:07 Promyelocytes # 0.0 K/mm3 06/11/18 09:07 Blast Cells # 0.0 K/mm3 06/11/18 09:07 WBC Morphology Not Reportable 06/11/18 09:07 Hypersegmented Neuts Not Reportable 06/11/18 09:07 Hyposegmented Neuts Not Reportable 06/11/18 09:07 Hypogranular Neuts Not Reportable 06/11/18 09:07 Smudge Cells Not Reportable 06/11/18 09:07 Toxic Granulation Not Reportable 06/11/18 09:07 Toxic Vacuolation Not Reportable 06/11/18 09:07 Dohle Bodies Not Reportable 06/11/18 09:07 Pelger-Huet Anomaly Not Reportable 06/11/18 09:07 Duy Rods Not Reportable 06/11/18 09:07 Platelet Estimate Consistent w auto 06/11/18 09:07 Clumped Platelets Not Reportable 06/11/18 09:07 Plt Clumps, EDTA Not Reportable 06/11/18 09:07 Large Platelets Not Reportable 06/11/18 09:07 Giant Platelets Not Reportable 06/11/18 09:07 Platelet Satelliting Not Reportable 06/11/18 09:07 Plt Morphology Comment Not Reportable 06/11/18 09:07 RBC Morphology Not Reportable 06/11/18 09:07 Dimorphic RBCs Not Reportable 06/11/18 09:07 Polychromasia Few 06/11/18 09:07 Hypochromasia 1+ 06/11/18 09:07 Poikilocytosis Not Reportable 06/11/18 09:07 Anisocytosis Not Reportable 06/11/18 09:07 Microcytosis Not Reportable 06/11/18 09:07 Macrocytosis Not Reportable 06/11/18 09:07 Spherocytes Not Reportable 06/11/18 09:07 Pappenheimer Bodies Not Reportable 06/11/18 09:07 Sickle Cells Not Reportable 06/11/18 09:07 Target Cells Few 06/11/18 09:07 Tear Drop Cells Rare 06/11/18 09:07 Ovalocytes Not Reportable 06/11/18 09:07 Helmet Cells Not Reportable 06/11/18 09:07 Levy-Shelton Bodies Not Reportable 06/11/18 09:07 [place] Rings Not Reportable 06/11/18 09:07 Roger Cells Not Reportable 06/11/18 09:07 Bite Cells Not Reportable 06/11/18 09:07 Crenated Cell Not Reportable 06/11/18 09:07 Elliptocytes Not Reportable 06/11/18 09:07 Acanthocytes (Spur) Not Reportable 06/11/18 09:07 Rouleaux Not Reportable 06/11/18 09:07 Hemoglobin C Crystals Not Reportable 06/11/18 09:07 Schistocytes Not Reportable 06/11/18 09:07 Malaria parasites Not Reportable 06/11/18 09:07 Adriel Bodies Not Reportable 06/11/18 09:07 Hem Pathologist Commnt No 06/11/18 09:07 PT 17.1 Sec. (12.2-14.9) H 06/11/18 09:07 INR 1.31 (0.87-1.13) H 06/11/18 09:07 APTT 34.5 Sec. (24.2-36.6) 05/31/18 20:50 Sodium 133 mmol/L (137-145) L 06/14/18 05:48 Potassium 3.4 mmol/L (3.6-5.0) L 06/14/18 05:48 Chloride 91.3 mmol/L (98-107) L 06/14/18 05:48 Carbon Dioxide 34 mmol/L (22-30) H 06/14/18 05:48 Anion Gap 11 mmol/L 06/14/18 05:48 BUN 20 mg/dL (9-20) 06/14/18 05:48 Creatinine 3.8 mg/dL (0.8-1.5) H 06/14/18 05:48 Estimated GFR 19 ml/min 06/14/18 05:48 BUN/Creatinine Ratio 5 % 06/14/18 05:48 Glucose 115 mg/dL (75-100) H 06/14/18 05:48 POC Glucose 95 (70-105) 06/14/18 16:02 Calcium 7.9 mg/dL (8.4-10.2) L 06/14/18 05:48 Phosphorus 2.20 mg/dL (2.5-4.5) L D 06/14/18 05:48 Magnesium 1.50 mg/dL (1.7-2.3) L 06/14/18 05:48 Iron 30 ug/dL (49-181) L 06/01/18 10:24 TIBC 163 mcg/dL (250-450) L 06/01/18 10:24 Total Bilirubin 0.40 mg/dL (0.1-1.2) 06/11/18 09:07 AST 12 units/L (5-40) 06/11/18 09:07 ALT 6 units/L (7-56) L 06/11/18 09:07 Alkaline Phosphatase 63 units/L (35-129) 06/11/18 09:07 Total Creatine Kinase 42 units/L (55-170) L 06/01/18 10:42 CK-MB (CK-2) 4.6 ng/mL (0.0-4.0) H 06/01/18 10:42 CK-MB (CK-2) Rel Index 10.9 (0-4) H 06/01/18 10:42 Troponin T 0.365 ng/mL (0.00-0.029) H* 06/01/18 10:42 Total Protein 6.8 g/dL (6.3-8.2) 06/11/18 09:07 Albumin 2.6 g/dL (3.9-5) L 06/11/18 09:07 Albumin/Globulin Ratio 0.6 % 06/11/18 09:07 Triglycerides 93 mg/dL (2-149) 06/14/18 05:48 Cholesterol 92 mg/dL (50-199) 05/31/18 20:50 LDL Cholesterol Direct 41 mg/dL (50-130) L 05/31/18 20:50 HDL Cholesterol 39 mg/dL (40-59) L 05/31/18 20:50 Cholesterol/HDL Ratio 2.35 % 05/31/18 20:50 Fluid Type Pericardial 06/09/18 10:57 Fluid Color Bloody 06/09/18 10:57 Fluid Appearance Bloody 06/09/18 10:57 Fluid WBC 2090 /mm3 06/09/18 10:57 Fluid RBC 11095 /mm3 06/09/18 10:57 Fluid Seg Neutrophils 52.0 % 06/09/18 10:57 Fluid Lymphocytes 7.0 % 06/09/18 10:57 Fluid Reactive Lymphs 0 % 06/09/18 10:57 Fluid Monocytes 41.0 % 06/09/18 10:57 Fluid Eosinophils 0 % 06/09/18 10:57 Fluid Basophils 0 % 06/09/18 10:57 Active Medications - Current Medications Current Medications: Generic Name Dose Route Start Last Admin Trade Name Freq PRN Reason Stop Dose Admin Acetaminophen 650 mg 06/01/18 03:09 Tylenol PO Q4H PRN Pain MILD(1-3)/Fever >100.5/JENKINS Albuterol 2.5 mg 06/01/18 21:04 Proventil IH Q4HRT PRN Shortness Of Breath Alprazolam 0.5 mg 06/01/18 22:00 06/14/18 09:44 Xanax PO 0.5 mg Q12HR CHONG Administration Aspirin 81 mg 06/02/18 10:00 06/14/18 09:44 Halfprin Ec PO 81 mg QDAY CHONG Administration Atorvastatin Calcium 40 mg 06/01/18 22:00 06/13/18 21:24 Lipitor PO 40 mg QHS CHONG Administration Carvedilol 25 mg 06/01/18 22:00 06/14/18 09:45 Coreg PO Not Given BID CHONG Clonidine HCl 0.1 mg 06/02/18 08:00 06/14/18 14:42 Catapres PO Not Given TID CHONG Clonidine HCl 0.2 mg 06/02/18 08:00 06/14/18 13:47 Catapres PO Not Given TID CHONG Epoetin Davis 20,000 unit 06/03/18 10:43 06/13/18 14:30 Procrit IV 20,000 unit APRIL PRN Administration hemodialysis Hydralazine HCl 100 mg 06/02/18 08:00 06/14/18 13:46 Apresoline PO Not Given TID CHONG Hydromorphone HCl 0.5 mg 06/09/18 15:56 06/14/18 13:52 Dilaudid IV 0.5 mg Q4H PRN Administration Pain , Severe (7-10) Lorazepam 1 mg 06/02/18 17:04 06/13/18 17:13 Ativan IV 1 mg Q6H PRN Administration Anxiety Metoclopramide HCl 5 mg 06/12/18 12:00 06/14/18 17:09 Reglan IV 5 mg Q6HR CHONG Administration Multivit/Ca Carb/B Cmplx/FA/Prenat 1 cap 06/02/18 10:00 06/14/18 09:44 Renal Caps PO 1 cap QDAY CHONG Administration Nifedipine 90 mg 06/01/18 22:00 06/14/18 17:08 Procardia Xl PO Not Given BID@0800,1700 CHONG Ondansetron HCl 4 mg 06/10/18 00:41 06/13/18 10:57 Zofran IV 4 mg Q4H PRN Administration Nausea And Vomiting Pantoprazole Sodium 40 mg 06/02/18 10:00 06/14/18 09:44 Protonix PO 40 mg DAILY CHONG Administration Phenol 1 spray 06/11/18 13:23 06/11/18 18:52 Chloraseptic MM 1 spray PRN PRN Administration Sore Throat Promethazine HCl 25 mg 06/09/18 15:55 06/09/18 16:56 Phenergan PO 25 mg Q6H PRN Administration Nausea And Vomiting Sodium Chloride 10 ml 06/01/18 10:00 06/14/18 09:45 Sodium Chloride Flush Syringe 10 Ml IV 10 ml BID CHONG Administration Trazodone HCl 100 mg 06/01/18 22:00 06/13/18 21:23 Desyrel PO 100 mg QHS CHONG Administration Nutrition/Malnutrition Assess - Dietary Evaluation Nutrition/Malnutrition Findings: Nutrition Notes Start: 06/08/18 13:47 Freq: Status: Active Protocol: Document 06/14/18 13:15 OL (Rec: 06/14/18 13:16 OL [id number]) Nutrition Notes Initial or Follow up Brief Note Subjective/Other Information TPN d/c. Pt. advanced to renal diet. RD will continue to monitor and follow. Nutrition Intervention Follow-Up By: 06/15/18 Additional Comments f/u: intakes
[2018-06-14] MEDS ORDERED: TPN ADULT 1,800 ML IV SCH (20:00)
[2018-06-14] MEDS: DESYREL PO SCH (21:33)
[2018-06-15] MEDS: REGLAN IV SCH ×5 (00:44→17:00)
[2018-06-15] MEDS: SODIUM CHLORIDE FLUSH SYRINGE 10 ML IV SCH ×3 (02:13→22:37)
[2018-06-15] MEDS: DILAUDID IV PRN ×3 (08:45→20:24)
[2018-06-15 08:55] LABS: LDH,Body Fluid > 1300
[2018-06-15 08:56] LABS: Total Protein,Body Fluid 7.7 (15.0-45.0)
--- NOTE | 2018-06-15 10:00 | Progress Note ---
Assessment and Plan Impression * End-stage renal disease * Congestive heart failure * Pericardial effusion * Partial small bowel obstruction * Anemia secondary to ESRD * Noncompliance * Hypomagnesemia Recommendations * Given his pericardial effusion patient needs aggressive dialysis. * Patient is scheduled for dialysis today . Patient refusing more frequent dialysis * Continue dialysis on TTS scheduled for now * Patient is status post pericardiocentesis * Surgical notes appreciated * Procrit with dialysis * Hold phosphate binders for now * Magnesium level is better at 1.9 * His overall prognosis appears to be poor Subjective Date of service: 06/15/18 Principal diagnosis: Large pericardial effusion ESRD Pleural effusion Interval history: Patient is comfortable this morning. Denies any nausea or vomiting. Currently on solid food. Off parenteral nutrition Objective - Vital Signs Vital signs: Vital Signs - 12hr 06/14/18 23:49 Temperature 98.0 F Pulse Rate 62 Respiratory 18 Rate Blood Pressure 117/56 O2 Sat by Pulse 100 Oximetry - General Appearance General appearance: chronically ill, frail EENT: PERRL, mucous membranes moist Neck: no JVD, no thyromegaly, no carotid bruit, supple Respiratory: Present: Clear to Ascultation Cardiology: regular, normal heart rate, S1S2, no murmurs Gastrointestinal: normal, normoactive bowel sounds Integumentary: no rash, other (no edema. AV fistula left upper arm. Good bruit and thrill.) - Lab 06/14/18 05:48 06/15/18 05:39 Most recent lab results Calcium 8.0 mg/dL (8.4-10.2) L 06/15/18 05:39 Phosphorus 2.70 mg/dL (2.5-4.5) D 06/15/18 05:39 Magnesium 1.60 mg/dL (1.7-2.3) L 06/15/18 05:39 Medications & Allergies - Medications Allergies/Adverse Reactions: Allergies heparin Allergy (Verified 04/21/18 14:26) lowers platelets Home Medications: Home Medications Medication Instructions Recorded Confirmed Last Taken Type AtorvaSTATin [Lipitor] 40 mg PO QHS #30 tab 03/27/18 06/01/18 05/31/18 Rx Esomeprazole Magnesium [Nexium] 40 mg PO DAILY #30 capsule. 03/27/18 06/01/18 05/31/18 Rx Folic Acid/Vit B Comp W-C [Renal 1 cap PO QDAY #60 capsule 03/27/18 06/01/18 Rx Caps] cloNIDine [Catapres] 0.3 mg PO TID 30 Days tablet 03/27/18 06/01/18 05/31/18 Rx hydrALAZINE [Apresoline TAB] 100 mg PO TID #90 tab 03/27/18 06/01/18 05/31/18 Rx traZODone [Desyrel] 100 mg PO QHS #30 tablet 03/27/18 06/01/18 05/30/18 Rx NIFEdipine [Adalat cc] 90 mg PO BID 04/11/18 06/01/18 Unknown History Diclofenac Sodium [Voltaren] 100 gm TP Q6H #1 gel..gram. 04/21/18 06/01/18 05/31/18 Rx ALBUTEROL NEB's [Proventil 0.083% 2.5 mg IH Q4HRT PRN nebu 05/19/18 06/01/18 05/31/18 Rx NEBS] ALPRAZolam [Xanax TAB] 0.5 mg PO Q12HR #20 tablet 05/19/18 06/01/18 05/31/18 Rx Aspirin EC [Aspirin Enteric Coated 81 mg PO QDAY tablet 05/19/18 06/01/18 05/31/18 Rx TAB] AtorvaSTATin [Lipitor] 40 mg PO QHS tablet 05/19/18 06/01/18 05/31/18 Rx Carvedilol [Coreg] 25 mg PO BID tablet 05/19/18 06/01/18 05/31/18 Rx Active Medications: Generic Name Dose Route Start Last Admin Trade Name Freq PRN Reason Stop Dose Admin Acetaminophen 650 mg 06/01/18 03:09 Tylenol PO Q4H PRN Pain MILD(1-3)/Fever >100.5/JENKINS Albuterol 2.5 mg 06/01/18 21:04 Proventil IH Q4HRT PRN Shortness Of Breath Alprazolam 0.5 mg 06/01/18 22:00 06/14/18 21:33 Xanax PO 0.5 mg Q12HR CHONG Administration Aspirin 81 mg 06/02/18 10:00 06/14/18 09:44 Halfprin Ec PO 81 mg QDAY CHONG Administration Atorvastatin Calcium 40 mg 06/01/18 22:00 06/14/18 21:33 Lipitor PO 40 mg QHS [facility] Administration Carvedilol 25 mg 06/01/18 22:00 06/14/18 21:33 Coreg PO 25 mg BID [facility] Administration Clonidine HCl 0.1 mg 06/02/18 08:00 06/14/18 22:46 Catapres PO Not Given TID [facility] Clonidine HCl 0.2 mg 06/02/18 08:00 06/14/18 22:46 Catapres PO Not Given TID [facility] Epoetin Davis 20,000 unit 06/03/18 10:43 06/13/18 14:30 Procrit IV 20,000 unit APRIL PRN Administration hemodialysis Hydralazine HCl 100 mg 06/02/18 08:00 06/14/18 22:46 Apresoline PO Not Given TID [facility] Hydromorphone HCl 0.5 mg 06/09/18 15:56 06/15/18 08:45 Dilaudid IV 0.5 mg Q4H PRN Administration Pain , Severe (7-10) Lorazepam 1 mg 06/02/18 17:04 06/13/18 17:13 Ativan IV 1 mg Q6H PRN Administration Anxiety Metoclopramide HCl 5 mg 06/12/18 12:00 06/15/18 05:44 Reglan IV 5 mg Q6HR [facility] Administration Multivit/Ca Carb/B Cmplx/FA/Prenat 1 cap 06/02/18 10:00 06/14/18 09:44 Renal Caps PO 1 cap QDAY [facility] Administration Nifedipine 90 mg 06/01/18 22:00 06/14/18 17:08 Procardia Xl PO Not Given BID@0800,1700 [facility] Ondansetron HCl 4 mg 06/10/18 00:41 06/13/18 10:57 Zofran IV 4 mg Q4H PRN Administration Nausea And Vomiting Pantoprazole Sodium 40 mg 06/02/18 10:00 06/14/18 09:44 Protonix PO 40 mg DAILY [facility] Administration Phenol 1 spray 06/11/18 13:23 06/11/18 18:52 Chloraseptic MM 1 spray PRN PRN Administration Sore Throat Promethazine HCl 25 mg 06/09/18 15:55 06/09/18 16:56 Phenergan PO 25 mg Q6H PRN Administration Nausea And Vomiting Sodium Chloride 10 ml 06/01/18 10:00 06/15/18 02:13 Sodium Chloride Flush Syringe 10 Ml IV 10 ml BID CHONG Administration Trazodone HCl 100 mg 06/01/18 22:00 06/14/18 21:33 Desyrel PO 100 mg QHS CHONG Administration
[2018-06-15] MEDS: ATIVAN IV PRN ×3 (10:37→22:38)
[2018-06-15] MEDS ORDERED: NACL 0.9 (PRIMING MACHINE ONLY DIALYSIS) MC ONE (11:53)
[2018-06-15] MEDS: PROCRIT IV PRN (12:00)
--- NOTE | 2018-06-15 12:07 | Progress Note ---
Assessment and Plan Assessment and plan: --Partial Small bowel obstruction Symptoms significantly improved, Tolerating clear liquids, had bowel movement and flatus Surgery advance the diet as tolerated, increase ambulation Taper and DC TPN --Intractable nausea vomiting: Resolved -- Pericardial effusion/no tamponade Pericardiocentesis and removal of 1400 mL pericardial fluid Pericardial fluid cultures negative, patient feels better Moderate pericardial effusion on CT abdomen [post procedure] -- Bilateral Pleural effusion Had recent Thoracentesis, Supportive care Consult pulmonary PRN , consider thoracentesis if needed -- ESRD needing dialysis on hemodialysis Continue HD as per schedule, nephrology following -- Elevated troponin I level Nonspecific due to to Esrd, cardiology following --HTN (hypertension) Moderate control, continue current antihypertensives When necessary medications --Chronic combined systolic and diastolic congestive heart failure continue current management, cardiology following -- HLD (hyperlipidemia) Cont statins, low-cholesterol diet --GERD (gastroesophageal reflux disease) Cont PPI's -- DVT prophylaxis SCDs nephrology , surgery , cardiology recommendations noted and appreciated Increase ambulation as tolerated, Possible discharge in 1-2 days if stable Plan of care is reviewed with the patient and his nurse History Interval history: Patient seen and examined medical records reviewed No new events reported by the nursing staff Patient comfortable vital signs reviewed Hospitalist Physical - Constitutional Vitals: Temp Pulse Resp BP Pulse Ox 98.3 F 74 16 107/75 99 06/15/18 09:45 06/15/18 12:00 06/15/18 09:45 06/15/18 12:00 06/15/18 09:12 General appearance: Present: mild distress, cachectic, disheveled, other (dehydrated chronically ill-looking) - EENT Eyes: Present: PERRL, EOM intact - Neck Neck: Present: supple, normal ROM - Respiratory Respiratory effort: normal Respiratory: bilateral: diminished, negative: rales, rhonchi, wheezing - Cardiovascular Rhythm: regular Heart Sounds: Present: S1 & S2 - Extremities Extremities: no ischemia, No edema - Abdominal General gastrointestinal: soft, non-tender, non-distended, normal bowel sounds - Integumentary Integumentary: Present: clear, warm - Psychiatric Psychiatric: appropriate mood/affect, cooperative - Neurologic Neurologic: CNII-XII intact, moves all extremities Results - Labs CBC & Chem 7: 06/14/18 05:48 06/15/18 05:39 Labs: Laboratory Last Values WBC 5.7 K/mm3 (4.5-11.0) 06/14/18 05:48 RBC 3.02 M/mm3 (3.65-5.03) L 06/14/18 05:48 Hgb 7.9 gm/dl (11.8-15.2) L 06/14/18 05:48 Hct 25.4 % (35.5-45.6) L 06/14/18 05:48 MCV 84 fl (84-94) 06/14/18 05:48 MCH 26 pg (28-32) L 06/14/18 05:48 MCHC 31 % (32-34) L 06/14/18 05:48 RDW 19.8 % (13.2-15.2) H 06/14/18 05:48 Plt Count 245 K/mm3 (140-440) 06/14/18 05:48 Lymph % (Auto) 17.1 % (13.4-35.0) 06/14/18 05:48 [place] % (Auto) 12.5 % (0.0-7.3) H 06/14/18 05:48 Eos % (Auto) 4.7 % (0.0-4.3) H 06/14/18 05:48 Baso % (Auto) 1.0 % (0.0-1.8) 06/14/18 05:48 Lymph # 1.0 K/mm3 (1.2-5.4) L 06/14/18 05:48 [place] # 0.7 K/mm3 (0.0-0.8) 06/14/18 05:48 Eos # 0.3 K/mm3 (0.0-0.4) 06/14/18 05:48 Baso # 0.1 K/mm3 (0.0-0.1) 06/14/18 05:48 Add Manual Diff Complete 06/11/18 09:07 Total Counted 100 06/11/18 09:07 Seg Neutrophils % 64.7 % (40.0-70.0) 06/14/18 05:48 Seg Neuts % (Manual) 57.0 % (40.0-70.0) 06/11/18 09:07 Band Neutrophils % 7.0 % 06/11/18 09:07 Lymphocytes % (Manual) 12.0 % (13.4-35.0) L 06/11/18 09:07 Reactive Lymphs % (Man) 0 % 06/11/18 09:07 Monocytes % (Manual) 17.0 % (0.0-7.3) H 06/11/18 09:07 Eosinophils % (Manual) 7.0 % (0.0-4.3) H 06/11/18 09:07 Basophils % (Manual) 0 % (0.0-1.8) 06/11/18 09:07 Metamyelocytes % 0 % 06/11/18 09:07 Myelocytes % 0 % 06/11/18 09:07 Promyelocytes % 0 % 06/11/18 09:07 Blast Cells % 0 % 06/11/18 09:07 Nucleated RBC % Not Reportable 06/11/18 09:07 Seg Neutrophils # 3.7 K/mm3 (1.8-7.7) 06/14/18 05:48 Seg Neutrophils # Man 2.3 K/mm3 (1.8-7.7) 06/11/18 09:07 Band Neutrophils # 0.3 K/mm3 06/11/18 09:07 Lymphocytes # (Manual) 0.5 K/mm3 (1.2-5.4) L 06/11/18 09:07 Abs React Lymphs (Man) 0.0 K/mm3 06/11/18 09:07 Monocytes # (Manual) 0.7 K/mm3 (0.0-0.8) 06/11/18 09:07 Eosinophils # (Manual) 0.3 K/mm3 (0.0-0.4) 06/11/18 09:07 Basophils # (Manual) 0.0 K/mm3 (0.0-0.1) 06/11/18 09:07 Metamyelocytes # 0.0 K/mm3 06/11/18 09:07 Myelocytes # 0.0 K/mm3 06/11/18 09:07 Promyelocytes # 0.0 K/mm3 06/11/18 09:07 Blast Cells # 0.0 K/mm3 06/11/18 09:07 WBC Morphology Not Reportable 06/11/18 09:07 Hypersegmented Neuts Not Reportable 06/11/18 09:07 Hyposegmented Neuts Not Reportable 06/11/18 09:07 Hypogranular Neuts Not Reportable 06/11/18 09:07 Smudge Cells Not Reportable 06/11/18 09:07 Toxic Granulation Not Reportable 06/11/18 09:07 Toxic Vacuolation Not Reportable 06/11/18 09:07 Dohle Bodies Not Reportable 06/11/18 09:07 Pelger-Huet Anomaly Not Reportable 06/11/18 09:07 Duy Rods Not Reportable 06/11/18 09:07 Platelet Estimate Consistent w auto 06/11/18 09:07 Clumped Platelets Not Reportable 06/11/18 09:07 Plt Clumps, EDTA Not Reportable 06/11/18 09:07 Large Platelets Not Reportable 06/11/18 09:07 Giant Platelets Not Reportable 06/11/18 09:07 Platelet Satelliting Not Reportable 06/11/18 09:07 Plt Morphology Comment Not Reportable 06/11/18 09:07 RBC Morphology Not Reportable 06/11/18 09:07 Dimorphic RBCs Not Reportable 06/11/18 09:07 Polychromasia Few 06/11/18 09:07 Hypochromasia 1+ 06/11/18 09:07 Poikilocytosis Not Reportable 06/11/18 09:07 Anisocytosis Not Reportable 06/11/18 09:07 Microcytosis Not Reportable 06/11/18 09:07 Macrocytosis Not Reportable 06/11/18 09:07 Spherocytes Not Reportable 06/11/18 09:07 Pappenheimer Bodies Not Reportable 06/11/18 09:07 Sickle Cells Not Reportable 06/11/18 09:07 Target Cells Few 06/11/18 09:07 Tear Drop Cells Rare 06/11/18 09:07 Ovalocytes Not Reportable 06/11/18 09:07 Helmet Cells Not Reportable 06/11/18 09:07 Levy-Eighty Four Bodies Not Reportable 06/11/18 09:07 Gentry Rings Not Reportable 06/11/18 09:07 Roger Cells Not Reportable 06/11/18 09:07 Bite Cells Not Reportable 06/11/18 09:07 Crenated Cell Not Reportable 06/11/18 09:07 Elliptocytes Not Reportable 06/11/18 09:07 Acanthocytes (Spur) Not Reportable 06/11/18 09:07 Rouleaux Not Reportable 06/11/18 09:07 Hemoglobin C Crystals Not Reportable 06/11/18 09:07 Schistocytes Not Reportable 06/11/18 09:07 Malaria parasites Not Reportable 06/11/18 09:07 Adriel Bodies Not Reportable 06/11/18 09:07 Hem Pathologist Commnt No 06/11/18 09:07 PT 17.1 Sec. (12.2-14.9) H 06/11/18 09:07 INR 1.31 (0.87-1.13) H 06/11/18 09:07 APTT 34.5 Sec. (24.2-36.6) 05/31/18 20:50 Sodium 135 mmol/L (137-145) L 06/15/18 05:39 Potassium 3.5 mmol/L (3.6-5.0) L 06/15/18 05:39 Chloride 90.1 mmol/L (98-107) L 06/15/18 05:39 Carbon Dioxide 32 mmol/L (22-30) H 06/15/18 05:39 Anion Gap 16 mmol/L 06/15/18 05:39 BUN 32 mg/dL (9-20) H 06/15/18 05:39 Creatinine 5.4 mg/dL (0.8-1.5) H 06/15/18 05:39 Estimated GFR 13 ml/min 06/15/18 05:39 BUN/Creatinine Ratio 6 % 06/15/18 05:39 Glucose 80 mg/dL (75-100) 06/15/18 05:39 POC Glucose 95 (70-105) 06/14/18 19:48 Calcium 8.0 mg/dL (8.4-10.2) L 06/15/18 05:39 Phosphorus 2.70 mg/dL (2.5-4.5) D 06/15/18 05:39 Magnesium 1.60 mg/dL (1.7-2.3) L 06/15/18 05:39 Iron 30 ug/dL (49-181) L 06/01/18 10:24 TIBC 163 mcg/dL (250-450) L 06/01/18 10:24 Total Bilirubin 0.40 mg/dL (0.1-1.2) 06/11/18 09:07 AST 12 units/L (5-40) 06/11/18 09:07 ALT 6 units/L (7-56) L 06/11/18 09:07 Alkaline Phosphatase 63 units/L (35-129) 06/11/18 09:07 Total Creatine Kinase 42 units/L (55-170) L 06/01/18 10:42 CK-MB (CK-2) 4.6 ng/mL (0.0-4.0) H 06/01/18 10:42 CK-MB (CK-2) Rel Index 10.9 (0-4) H 06/01/18 10:42 Troponin T 0.365 ng/mL (0.00-0.029) H* 06/01/18 10:42 Total Protein 6.8 g/dL (6.3-8.2) 06/11/18 09:07 Albumin 2.6 g/dL (3.9-5) L 06/11/18 09:07 Albumin/Globulin Ratio 0.6 % 06/11/18 09:07 Triglycerides 93 mg/dL (2-149) 06/14/18 05:48 Cholesterol 92 mg/dL (50-199) 05/31/18 20:50 LDL Cholesterol Direct 41 mg/dL (50-130) L 05/31/18 20:50 HDL Cholesterol 39 mg/dL (40-59) L 05/31/18 20:50 Cholesterol/HDL Ratio 2.35 % 05/31/18 20:50 Fluid Type Pericardial 06/09/18 10:57 Fluid Color Bloody 06/09/18 10:57 Fluid Appearance Bloody 06/09/18 10:57 Fluid WBC 2090 /mm3 06/09/18 10:57 Fluid RBC 42240 /mm3 06/09/18 10:57 Fluid Seg Neutrophils 52.0 % 06/09/18 10:57 Fluid Lymphocytes 7.0 % 06/09/18 10:57 Fluid Reactive Lymphs 0 % 06/09/18 10:57 Fluid Monocytes 41.0 % 06/09/18 10:57 Fluid Eosinophils 0 % 06/09/18 10:57 Fluid Basophils 0 % 06/09/18 10:57 Fluid Glucose 58 mg/dL (40-70) 06/09/18 10:57 Fluid Total Protein 7.7 (15.0-45.0) L 06/09/18 10:57 Fluid LDH > 1300 06/09/18 10:57 Active Medications - Current Medications Current Medications: Generic Name Dose Route Start Last Admin Trade Name Freq PRN Reason Stop Dose Admin Acetaminophen 650 mg 06/01/18 03:09 Tylenol PO Q4H PRN Pain MILD(1-3)/Fever >100.5/JENKINS Albuterol 2.5 mg 06/01/18 21:04 Proventil IH Q4HRT PRN Shortness Of Breath Alprazolam 0.5 mg 06/01/18 22:00 06/14/18 21:33 Xanax PO 0.5 mg Q12HR CHONG Administration Aspirin 81 mg 06/02/18 10:00 06/14/18 09:44 Halfprin Ec PO 81 mg QDAY CHONG Administration Atorvastatin Calcium 40 mg 06/01/18 22:00 06/14/18 21:33 Lipitor PO 40 mg QHS CHONG Administration Carvedilol 25 mg 06/01/18 22:00 06/14/18 21:33 Coreg PO 25 mg BID CHONG Administration Clonidine HCl 0.1 mg 06/02/18 08:00 06/14/18 22:46 Catapres PO Not Given TID CHONG Clonidine HCl 0.2 mg 06/02/18 08:00 06/14/18 22:46 Catapres PO Not Given TID CHONG Epoetin Davis 20,000 unit 06/03/18 10:43 06/15/18 12:00 Procrit IV 20,000 unit APRIL PRN Administration hemodialysis Hydralazine HCl 100 mg 06/02/18 08:00 06/14/18 22:46 Apresoline PO Not Given TID CHONG Hydromorphone HCl 0.5 mg 06/09/18 15:56 06/15/18 08:45 Dilaudid IV 0.5 mg Q4H PRN Administration Pain , Severe (7-10) Lorazepam 1 mg 06/02/18 17:04 06/15/18 10:37 Ativan IV 1 mg Q6H PRN Administration Anxiety Metoclopramide HCl 5 mg 06/12/18 12:00 06/15/18 05:44 Reglan IV 5 mg Q6HR CHONG Administration Multivit/Ca Carb/B Cmplx/FA/Prenat 1 cap 06/02/18 10:00 06/14/18 09:44 Renal Caps PO 1 cap QDAY CHONG Administration Nifedipine 90 mg 06/01/18 22:00 06/14/18 17:08 Procardia Xl PO Not Given BID@0800,1700 CHONG Ondansetron HCl 4 mg 06/10/18 00:41 06/13/18 10:57 Zofran IV 4 mg Q4H PRN Administration Nausea And Vomiting Pantoprazole Sodium 40 mg 06/02/18 10:00 06/14/18 09:44 Protonix PO 40 mg DAILY CHONG Administration Phenol 1 spray 06/11/18 13:23 06/11/18 18:52 Chloraseptic MM 1 spray PRN PRN Administration Sore Throat Promethazine HCl 25 mg 06/09/18 15:55 06/09/18 16:56 Phenergan PO 25 mg Q6H PRN Administration Nausea And Vomiting Sodium Chloride 10 ml 06/01/18 10:00 06/15/18 02:13 Sodium Chloride Flush Syringe 10 Ml IV 10 ml BID COHNG Administration Trazodone HCl 100 mg 06/01/18 22:00 06/14/18 21:33 Desyrel PO 100 mg QHS CHONG Administration Nutrition/Malnutrition Assess - Dietary Evaluation Nutrition/Malnutrition Findings: Nutrition Notes Start: 06/08/18 13:47 Freq: Status: Active Protocol: Document 06/14/18 13:15 OL (Rec: 06/14/18 13:16 OL [id number]) Nutrition Notes Initial or Follow up Brief Note Subjective/Other Information TPN d/c. Pt. advanced to renal diet. RD will continue to monitor and follow. Nutrition Intervention Follow-Up By: 06/15/18 Additional Comments f/u: intakes
--- NOTE | 2018-06-15 14:23 | Progress Note ---
Assessment and Plan Pericardial effusion, status post successful pericardiocentesis, echocardiogram on recheck shows no significant reaccumulation. Cardiac status is stable. Subjective Date of service: 06/15/18 Principal diagnosis: Large pericardial effusion ESRD Pleural effusion Interval history: Patient is comfortable, no new cardiac complaints. Objective Vital Signs Temp Pulse Pulse Resp BP Pulse Ox 06/15/18 13:45 55 L 101/55 06/15/18 13:30 56 L 108/57 06/15/18 13:15 58 L 118/59 06/15/18 13:00 58 L 110/55 06/15/18 12:45 50 L 103/50 06/15/18 12:30 57 L 93/51 06/15/18 12:15 58 L 100/56 06/15/18 12:00 74 107/75 06/15/18 11:45 75 110/66 06/15/18 11:30 66 99/50 06/15/18 11:15 57 L 86/42 06/15/18 11:00 56 L 98/52 06/15/18 10:45 60 111/66 06/15/18 10:30 57 L 109/64 06/15/18 10:15 67 119/69 06/15/18 10:00 57 L 94/51 06/15/18 09:45 98.3 F 57 L 16 94/51 06/15/18 09:12 98.1 F 65 18 103/52 99 06/15/18 08:00 53 L 53 L 20 06/14/18 23:49 98.0 F 62 18 117/56 100 06/14/18 22:00 99 06/14/18 19:41 98.2 F 73 18 116/68 99 06/14/18 17:01 98.2 F 67 22 110/59 100 - Physical Examination General: No Apparent Distress, Cachectic HEENT: Positive: PERRL Neck: Positive: trachea midline Cardiac: Positive: Reg Rate and Rhythm Lungs: Positive: Decreased Breath Sounds Neuro: Positive: Grossly Intact Abdomen: Positive: Unremarkable, Soft Skin: Positive: Clear Extremities: Absent: edema - Labs and Meds Comprehensive Metabolic Panel 06/15/18 Range/Units 05:39 Sodium 135 L (137-145) mmol/L Potassium 3.5 L (3.6-5.0) mmol/L Chloride 90.1 L (98-107) mmol/L Carbon Dioxide 32 H (22-30) mmol/L BUN 32 H (9-20) mg/dL Creatinine 5.4 H (0.8-1.5) mg/dL Glucose 80 (75-100) mg/dL Calcium 8.0 L (8.4-10.2) mg/dL - Imaging and Cardiology EKG: image reviewed
[2018-06-15] MEDS: PROCARDIA XL PO SCH ×2 (15:31→16:46)
[2018-06-15] MEDS: APRESOLINE PO SCH ×3 (15:31→20:24)
[2018-06-15] MEDS: CATAPRES PO SCH ×6 (15:31→22:38)
[2018-06-15] MEDS: COREG PO SCH ×2 (15:32→22:38)
[2018-06-15] MEDS: PROTONIX PO SCH (15:47)
[2018-06-15] MEDS: HALFPRIN EC PO SCH (15:47)
[2018-06-15] MEDS: Renal Caps PO SCH (15:47)
[2018-06-15] MEDS: XANAX PO SCH ×2 (15:49→22:39)
[2018-06-15] MEDS: ZOFRAN IV PRN (20:27)
[2018-06-15] MEDS: DESYREL PO SCH (22:37)
[2018-06-16] MEDS: REGLAN IV SCH ×3 (00:35→14:02)
[2018-06-16] MEDS: APRESOLINE PO SCH (08:41)
[2018-06-16] MEDS: PROCARDIA XL PO SCH (08:41)
[2018-06-16] MEDS: CATAPRES PO SCH ×2 (08:41)
[2018-06-16] MEDS: COREG PO SCH (09:27)
[2018-06-16] MEDS: DILAUDID IV PRN ×2 (09:42→14:02)
[2018-06-16] MEDS: PROTONIX PO SCH (09:45)
[2018-06-16] MEDS: Renal Caps PO SCH (09:45)
[2018-06-16] MEDS: HALFPRIN EC PO SCH (09:46)
[2018-06-16] MEDS: XANAX PO SCH (09:46)
[2018-06-16] MEDS: SODIUM CHLORIDE FLUSH SYRINGE 10 ML IV SCH (09:46)
[2018-06-16 12:57] VITALS: BP 125/67
--- NOTE | 2018-06-16 14:04 | Discharge Summary ---
Providers - Providers Date of Admission: 06/01/18 03:09 Date of discharge: 06/16/18 Attending physician: BRODY WALKER 06/01/18 00:53 Consult to Physician [CONS] Urgent Comment: Dr. Ibarra spoke with Dr. Salinas @ [id number] Consulting Provider: JOHN SALINAS Physician Instructions: Reason For Exam: end-stage renal disease 06/01/18 03:26 Consult to Physician [CONS] Routine Comment: Consulting Provider: CARINA SCHROEDER Physician Instructions: Reason For Exam: cp 06/10/18 07:37 Consult to Physician [CONS] Routine Comment: Consulting Provider: SEGUNDO ALLEN Physician Instructions: Reason For Exam: partial small bowel obstruction 06/11/18 13:36 Consult to Dietitian/Nutrition [CONS] Routine Physician Instructions: Reason For Exam: Reason for Consult: Write/Manage TPN/PPN Primary care physician: [employer] Hospitalization Reason for admission: worsening shortness of breath/chest pain Condition: Fair Pertinent studies: Chest x-ray CTA chest Echocardiogram Pericardiocentesis Echo post-pericardiocentesis CT abdomen and pelvis; partial small bowel obstruction Follow-up CT abdomen and pelvis X-ray abdomen Hospital course: 28-year-old man with a history of end-stage renal disease on dialysis Tuesday, , Tuesday, CHF with EF of 15%, GERD, hypertension, Chronic Respiratory Failure on 6L Home Oxygen was admitted through emergency room with worsening shortness of breath and chest pain. Patient was admitted to the hospital symptomatically managed, evaluated by cardiology Noted to have a large pericardial effusion with tamponade, underwent pericardiocentesis Patient also developed small bowel obstruction, evaluated by surgery, placed the patient on TPN, with intermittent suction of the NG tube Gradually small bowel obstruction resolved, End-stage renal disease on hemodialysis, received dialysis per schedule Today patient is comfortable no new complaints, Vital signs reviewed, Physical examination is unremarkable at the time of discharge Cleared by cardiology, surgery, nephrology, Hemodynamically and clinically stable at discharge with home health Discharge diagnosis; --Partial Small bowel obstruction Symptoms significantly improved, Tolerating clear liquids, had bowel movement and flatus Surgery advance the diet as tolerated, increase ambulation Taper and DC TPN --Intractable nausea vomiting: Resolved -- Pericardial effusion/no tamponade Pericardiocentesis and removal of 1400 mL pericardial fluid Pericardial fluid cultures negative, patient feels better Moderate pericardial effusion on CT abdomen [post procedure] -- Bilateral Pleural effusion Had recent Thoracentesis, Supportive care Consult pulmonary PRN , consider thoracentesis if needed -- ESRD needing dialysis on hemodialysis Continue HD as per schedule, nephrology following -- Elevated troponin I level Nonspecific due to to Esrd, cardiology following --HTN (hypertension) Moderate control, continue current antihypertensives When necessary medications --Chronic combined systolic and diastolic congestive heart failure continue current management, cardiology following -- HLD (hyperlipidemia) Cont statins, low-cholesterol diet --GERD (gastroesophageal reflux disease) Cont PPI's -- DVT prophylaxis SCDs nephrology , surgery , cardiology recommendations noted and appreciated Increase ambulation as tolerated, Possible discharge in 1-2 days if stable Plan of care is reviewed with the patient and his nurse Disposition: -01 TO HOME OR SELFCARE Time spent for discharge: 32 min Core Measure Documentation - Palliative Care Palliative Care/ Comfort Measures: Not Applicable - Core Measures Any of the following diagnoses?: none Exam - Constitutional Vitals: Temp Pulse Resp BP Pulse Ox 98.6 F 67 18 125/67 100 06/16/18 12:57 06/16/18 12:56 06/16/18 12:56 06/16/18 12:56 06/16/18 12:56 General appearance: Present: no acute distress, well-nourished - EENT Eyes: Present: PERRL, EOM intact - Neck Neck: Present: supple, normal ROM - Respiratory Respiratory effort: normal Respiratory: bilateral: diminished, rales, negative: rhonchi, wheezing - Cardiovascular Rhythm: regular Heart Sounds: Present: S1 & S2 - Extremities Extremities: no ischemia, No edema - Abdominal General gastrointestinal: Present: soft, non-tender, non-distended, normal bowel sounds - Integumentary Integumentary: Present: clear, warm - Musculoskeletal Musculoskeletal: strength equal bilaterally - Psychiatric Psychiatric: appropriate mood/affect, cooperative - Neurologic Neurologic: CNII-XII intact, moves all extremities Plan Activity: no restrictions Diet: renal Additional Instructions: Follow renal/hemodialysis per schedule TTS. Advised to comply with medications, dialysis, follow-up visits. Your next dialysis is on Tuesday[06/17/2018]. Follow-up with your surgeon at [facility] (Dr. Valle) in1-2 wks. No new prescriptions Follow up with: SAAD CRAWFORD MD [Primary Care Provider] - 3-5 Days CARINA SCHROEDER MD [Staff Physician] - 7 Days JOHN SALINAS MD [Staff Physician] - 7 Days
--- NOTE | 2018-06-16 15:25 | Progress Note ---
Assessment and Plan Impression * End-stage renal disease * Congestive heart failure * Pericardial effusion * Partial small bowel obstruction * Anemia secondary to ESRD * Noncompliance * Hypomagnesemia Recommendations * Given his pericardial effusion patient needs aggressive dialysis. * Had uneventful hemodialysis yesterday . Patient refusing more frequent dialysis * Continue dialysis on TTS scheduled for now * Patient is status post pericardiocentesis * Patient is currently tolerating solid foods * Procrit with dialysis * Hold phosphate binders for now * Magnesium level is better at 1.9 * His overall prognosis appears to be poor * No objection to discharge from renal standpoint Subjective Date of service: 06/16/18 Principal diagnosis: Large pericardial effusion ESRD Pleural effusion Interval history: Patient is comfortable today. Anxious to go home. Denies any shortness of breath. Tolerating solid food without any difficulty. Objective - Vital Signs Vital signs: Vital Signs - 12hr 06/16/18 06/16/18 06/16/18 04:30 05:46 09:44 Temperature 98.1 F 98.3 F Pulse Rate 66 65 Respiratory 18 18 Rate Blood Pressure 95/36 117/59 Blood Pressure 100/48 [Right] O2 Sat by Pulse 100 100 Oximetry 06/16/18 06/16/18 12:56 12:57 Temperature 98.6 F Pulse Rate 67 Respiratory 18 Rate Blood Pressure 125/67 Blood Pressure [Right] O2 Sat by Pulse 100 Oximetry - General Appearance General appearance: chronically ill, frail EENT: PERRL, mucous membranes moist Neck: no JVD, no thyromegaly, no carotid bruit, supple Respiratory: Present: Clear to Ascultation Cardiology: regular, normal heart rate, S1S2, no murmurs Gastrointestinal: normal, normoactive bowel sounds Integumentary: other (AV fistula in his left upper arm. Good bruit and thrill.) - Lab 06/14/18 05:48 06/15/18 05:39 Most recent lab results Calcium 8.0 mg/dL (8.4-10.2) L 06/15/18 05:39 Phosphorus 2.70 mg/dL (2.5-4.5) D 06/15/18 05:39 Magnesium 1.60 mg/dL (1.7-2.3) L 06/15/18 05:39 Medications & Allergies - Medications Allergies/Adverse Reactions: Allergies heparin Allergy (Verified 04/21/18 14:26) lowers platelets Home Medications: Home Medications Medication Instructions Recorded Confirmed Last Taken Type AtorvaSTATin [Lipitor] 40 mg PO QHS #30 tab 03/27/18 06/01/18 05/31/18 Rx Esomeprazole Magnesium [Nexium] 40 mg PO DAILY #30 capsule. 03/27/18 06/01/18 05/31/18 Rx Folic Acid/Vit B Comp W-C [Renal 1 cap PO QDAY #60 capsule 03/27/18 06/01/18 05/31/18 Rx Caps] hydrALAZINE [Apresoline TAB] 100 mg PO TID #90 tab 03/27/18 06/01/18 05/31/18 Rx traZODone [Desyrel] 100 mg PO QHS #30 tablet 03/27/18 06/01/18 05/30/18 Rx NIFEdipine [Adalat cc] 90 mg PO BID 04/11/18 06/01/18 Unknown History Diclofenac Sodium [Voltaren] 100 gm TP Q6H #1 gel..gram. 04/21/18 06/01/18 05/31/18 Rx ALBUTEROL NEB's [Proventil 0.083% 2.5 mg IH Q4HRT PRN nebu 05/19/18 06/01/18 05/31/18 Rx NEBS] ALPRAZolam [Xanax TAB] 0.5 mg PO Q12HR #20 tablet 05/19/18 06/01/18 05/31/18 Rx Aspirin EC [Aspirin Enteric Coated 81 mg PO QDAY tablet 05/19/18 06/01/18 05/31/18 Rx TAB] AtorvaSTATin [Lipitor] 40 mg PO QHS tablet 05/19/18 06/01/18 05/31/18 Rx Carvedilol [Coreg] 25 mg PO BID tablet 05/19/18 06/01/18 05/31/18 Rx Active Medications: Generic Name Dose Route Start Last Admin Trade Name Freq PRN Reason Stop Dose Admin Acetaminophen 650 mg 06/01/18 03:09 Tylenol PO Q4H PRN Pain MILD(1-3)/Fever >100.5/JENKINS Albuterol 2.5 mg 06/01/18 21:04 Proventil IH Q4HRT PRN Shortness Of Breath Alprazolam 0.5 mg 06/01/18 22:00 06/16/18 09:46 Xanax PO 0.5 mg Q12HR CHONG Administration Aspirin 81 mg 06/02/18 10:00 06/16/18 09:46 Halfprin Ec PO 81 mg QDAY [facility] Administration Atorvastatin Calcium 40 mg 06/01/18 22:00 06/15/18 22:38 Lipitor PO 40 mg QHS CHONG Administration Carvedilol 25 mg 06/01/18 22:00 06/16/18 09:27 Coreg PO Not Given BID [facility] Clonidine HCl 0.1 mg 06/02/18 08:00 06/16/18 08:41 Catapres PO Not Given TID [facility] Clonidine HCl 0.2 mg 06/02/18 08:00 06/16/18 08:41 Catapres PO Not Given TID [facility] Epoetin Davis 20,000 unit 06/03/18 10:43 06/15/18 12:00 Procrit IV 20,000 unit APRIL PRN Administration hemodialysis Hydralazine HCl 100 mg 06/02/18 08:00 06/16/18 08:41 Apresoline PO Not Given TID [facility] Hydromorphone HCl 0.5 mg 06/09/18 15:56 06/16/18 14:02 Dilaudid IV 0.5 mg Q4H PRN Administration Pain , Severe (7-10) Lorazepam 1 mg 06/02/18 17:04 06/15/18 22:38 Ativan IV 1 mg Q6H PRN Administration Anxiety Metoclopramide HCl 5 mg 06/12/18 12:00 06/16/18 14:02 Reglan IV 5 mg Q6HR [facility] Administration Multivit/Ca Carb/B Cmplx/FA/Prenat 1 cap 06/02/18 10:00 06/16/18 09:45 Renal Caps PO 1 cap QDAY [facility] Administration Nifedipine 90 mg 06/01/18 22:00 06/16/18 08:41 Procardia Xl PO Not Given BID@0800,1700 [facility] Ondansetron HCl 4 mg 06/10/18 00:41 06/15/18 20:27 Zofran IV 4 mg Q4H PRN Administration Nausea And Vomiting Pantoprazole Sodium 40 mg 06/02/18 10:00 06/16/18 09:45 Protonix PO 40 mg DAILY CHONG Administration Phenol 1 spray 06/11/18 13:23 06/11/18 18:52 Chloraseptic MM 1 spray PRN PRN Administration Sore Throat Promethazine HCl 25 mg 06/09/18 15:55 06/09/18 16:56 Phenergan PO 25 mg Q6H PRN Administration Nausea And Vomiting Sodium Chloride 10 ml 06/01/18 10:00 06/16/18 09:46 Sodium Chloride Flush Syringe 10 Ml IV 10 ml BID CHONG Administration Trazodone HCl 100 mg 06/01/18 22:00 06/15/18 22:37 Desyrel PO 100 mg QHS CHONG Administration
--- NOTE | 2018-06-16 17:22 | Progress Note ---
Assessment and Plan - Patient Problems (1) Pericardial effusion without cardiac tamponade Status: Acute Plan to address problem: Pericardial effusion, status post successful pericardiocentesis, echocardiogram on recheck showed no significant reaccumulation. Cardiac status is stable. Subjective Date of service: 06/16/18 Principal diagnosis: Large pericardial effusion ESRD Pleural effusion Interval history: Patient has no new cardiac complaints, looks comfortable. Objective Vital Signs Temp Pulse Resp Resp BP BP Pulse Ox 06/16/18 12:57 98.6 F 06/16/18 12:56 67 18 125/67 100 06/16/18 10:00 97 06/16/18 09:44 98.3 F 65 18 117/59 100 06/16/18 05:46 100/48 06/16/18 04:30 98.1 F 66 18 95/36 100 06/16/18 02:11 70 98/42 06/16/18 01:55 97.6 F 18 96/37 06/15/18 22:38 78 106/45 06/15/18 21:58 97.5 F L 78 20 106/45 99 06/15/18 20:59 18 06/15/18 20:55 20 98 06/15/18 20:54 18 06/15/18 20:24 18 06/15/18 19:58 98.5 F 73 18 105/41 99 06/15/18 19:23 73 06/15/18 18:14 97.4 F L 72 18 116/45 94 - Physical Examination General: No Apparent Distress, Cachectic HEENT: Positive: PERRL Neck: Positive: trachea midline Cardiac: Positive: Reg Rate and Rhythm Lungs: Positive: Decreased Breath Sounds Neuro: Positive: Grossly Intact Abdomen: Positive: Unremarkable, Soft Skin: Positive: Clear Extremities: Absent: edema - Imaging and Cardiology EKG: image reviewed
== END 2018-06-16 17:17 | disposition home or self-care (01) | DRG 314 ==
LOC: ED 20:35 → 4A 06-01 03:09
PROVIDERS: ADMIT Internal Medicine; ATTEND Internal Medicine
PROC: 5A1D70Z Performance of Urinary Filtration, Intermittent, Less than 6 Hours Per Day (ICD-10-PCS; 2018-06-01)
PROC: 5A1D70Z Performance of Urinary Filtration, Intermittent, Less than 6 Hours Per Day (ICD-10-PCS; 2018-06-03)
PROC: 5A1D70Z Performance of Urinary Filtration, Intermittent, Less than 6 Hours Per Day (ICD-10-PCS; 2018-06-06)
PROC: 5A1D70Z Performance of Urinary Filtration, Intermittent, Less than 6 Hours Per Day (ICD-10-PCS; 2018-06-08)
PROC: 0W9D3ZX Drainage of Pericardial Cavity, Percutaneous Approach, Diagnostic (ICD-10-PCS; principal; 2018-06-09)
PROC: 0D9670Z Drainage of Stomach with Drainage Device, Via Natural or Artificial Opening (ICD-10-PCS; 2018-06-10)
PROC: 5A1D70Z Performance of Urinary Filtration, Intermittent, Less than 6 Hours Per Day (ICD-10-PCS; 2018-06-10)
PROC: 5A1D70Z Performance of Urinary Filtration, Intermittent, Less than 6 Hours Per Day (ICD-10-PCS; 2018-06-13)
PROC: 5A1D70Z Performance of Urinary Filtration, Intermittent, Less than 6 Hours Per Day (ICD-10-PCS; 2018-06-15)
DX: I31.3 Pericardial effusion (noninflammatory) (principal); N18.6 End stage renal disease; J96.21 Acute and chronic respiratory failure with hypoxia; I50.43 Acute on chronic combined systolic (congestive) and diastolic (congestive) heart failure; I13.2 Hypertensive heart and chronic kidney disease with heart failure and with stage 5 chronic kidney disease, or end stage renal disease; R18.8 Other ascites; I42.0 Dilated cardiomyopathy; K56.600 Partial intestinal obstruction, unspecified as to cause; D63.1 Anemia in chronic kidney disease; E83.42 Hypomagnesemia; K21.9 Gastro-esophageal reflux disease without esophagitis; Z99.2 Dependence on renal dialysis; Z99.81 Dependence on supplemental oxygen; Z95.828 Presence of other vascular implants and grafts; Z90.89 Acquired absence of other organs; Z82.49 Family history of ischemic heart disease and other diseases of the circulatory system; Z88.8 Allergy status to other drugs, medicaments and biological substances; Z79.01 Long term (current) use of anticoagulants; Z87.891 Personal history of nicotine dependence; Z91.19 Patient's noncompliance with other medical treatment and regimen
CPT/HCPCS: 33010; 36415; 71045; 71046; 71275; 74018; 74176; 80048; 80053; 80061; 82550; 82553; 82947; 82962; 83550; 83605; 83735; 84100; 84132; 84160; 84478; 84484; 85007; 85025; 85610; 85730; 87116; 88112; 88305; 89051; 93005; 93010; 93308; 93321; 93325; 94760; 96374; 96375; 99406; G0378; A9270-GY; J0885; J1170; J2060; J2250; J2270; J2405; J2765; J3010; J3230; J3475; J7030; J7040; Q0169; Q9967

== ENCOUNTER 2018-06-22 13:15 | Emergency (ER) | payer MEDICARE ==
--- NOTE | 2018-06-22 14:12 | Emergency Department Report ---
Blank Doc - Documentation Documentation: 28 y o male with stage 5 Renal Failure and heart failure presents with sob, fa tigue T//S last dialyzed today labs ordered main side eval
[2018-06-22 14:31] LABS: Basophils # (Auto) 0.1 K/mm3 (0.0-0.1); Basophils % (Auto) 1.4 % (0.0-1.8); Eosinophils # (Auto) 0.2 K/mm3 (0.0-0.4); Eosinophils % (Auto) 3.4 % (0.0-4.3); Hematocrit 29.6 % (35.5-45.6); Hemoglobin 9.4 gm/dl (11.8-15.2); Lymphocytes # (Auto) 1.3 K/mm3 (1.2-5.4); Lymphocytes % (Auto) 19.7 % (13.4-35.0); Mean Corpuscular HGB Conc 32 % (32-34); Mean Corpuscular Volume 84 fl (84-94); Monocytes # (Auto) 0.5 K/mm3 (0.0-0.8); Monocytes % (Auto) 7.1 % (0.0-7.3); Platelet Count 200 K/mm3 (140-440); Red Blood Count 3.53 M/mm3 (3.65-5.03)
[2018-06-22 14:33] LABS: Red Cell Distribution Width 21.2 % (13.2-15.2)
[2018-06-22 14:40] LABS: INR 1.08 (0.87-1.13)
[2018-06-22 14:50] LABS: Albumin 2.6 g/dL (3.9-5); Calcium 8.1 mg/dL (8.4-10.2)
--- NOTE | 2018-06-22 15:24 | XRay Report ---
ROUTINE CHEST, TWO VIEWS: HISTORY: Short of breath. Compared to 06/09/18. Mild cardiomegaly is stable. Pulmonary venous congestion has nearly resolved. Small right pleural effusion appears stable. Small left pleural effusion has decreased by 2 rib levels the previous exam. There are mild bibasilar atelectatic changes. No obvious infiltrate. No pneumothorax. IMPRESSION: Mild CHF. Slightly improved since 06/09/18.
[2018-06-22] MEDS ORDERED: TORADOL IV ONE (17:52)
[2018-06-22] MEDS ORDERED: ZOFRAN IV ONE (17:53)
--- NOTE | 2018-06-22 19:51 | Emergency Department Report ---
<CODY SO - Last Filed: 06/22/18 19:54> ED Abdominal Pain HPI - General Chief Complaint: Abdominal Pain Stated Complaint: SOB/ABD PAIN Time Seen by Provider: 06/22/18 14:06 Source: patient Mode of arrival: Ambulatory Limitations: No Limitations - History of Present Illness Initial Comments: Patient is a 28-year-old male past medical history of end-stage renal disease hypertension who is presenting with abdominal pain. Patient states he did have dialysis today and there were no issues with his dialysis. Patient states he has central and left lower quadrant abdominal pain that started roughly 5 hours ago. Patient states this is a 8 out 10 in severity and aching. Patient states he did have 1 bowel movement earlier today. Patient is currently denying any nausea vomiting. Patient was in the hospital approximately 2 and half weeks ago for a partial small bowel obstruction was treated with NG tube. Severity scale (0 -10): 7 - Related Data Home Medications Medication Instructions Recorded Confirmed Last Taken NIFEdipine [Adalat cc] 90 mg PO BID 04/11/18 06/01/18 Unknown Previous Rx's Medication Instructions Recorded Last Taken Type AtorvaSTATin [Lipitor] 40 mg PO QHS #30 tab 03/27/18 05/31/18 Rx Esomeprazole Magnesium [Nexium] 40 mg PO DAILY #30 capsule. 03/27/18 05/31/18 Rx Folic Acid/Vit B Comp W-C [Renal 1 cap PO QDAY #60 capsule 03/27/18 05/31/18 Rx Caps] hydrALAZINE [Apresoline TAB] 100 mg PO TID #90 tab 03/27/18 05/31/18 Rx traZODone [Desyrel] 100 mg PO QHS #30 tablet 03/27/18 05/30/18 Rx Diclofenac Sodium [Voltaren] 100 gm TP Q6H #1 gel..gram. 04/21/18 05/31/18 Rx ALBUTEROL NEB's [Proventil 0.083% 2.5 mg IH Q4HRT PRN nebu 05/19/18 05/31/18 Rx NEBS] ALPRAZolam [Xanax TAB] 0.5 mg PO Q12HR #20 tablet 05/19/18 05/31/18 Rx Aspirin EC [Aspirin Enteric Coated 81 mg PO QDAY tablet 05/19/18 05/31/18 Rx TAB] AtorvaSTATin [Lipitor] 40 mg PO QHS tablet 05/19/18 05/31/18 Rx Carvedilol [Coreg] 25 mg PO BID tablet 05/19/18 05/31/18 Rx Acetaminophen [Tylenol Arthritis] 650 mg PO Q6HR PRN #30 tablet.er 06/22/18 Unknown Rx Metoclopramide [Reglan] 10 mg PO QID PRN #15 tab 06/22/18 Unknown Rx Promethazine [Phenergan] 25 mg MN Q6HR PRN #10 supp.rect 06/22/18 Unknown Rx levoFLOXacin [Levaquin] 250 mg PO Q48HR #3 tablet 06/22/18 Unknown Rx Allergies Allergy/AdvReac Type Severity Reaction Status Date / Time heparin Allergy lowers Verified 06/22/18 13:28 platelets ED Review of Systems Comment: All other systems reviewed and negative ED Past Medical Hx - Past Medical History Previous Medical History?: Yes Hx Hypertension: Yes Hx Heart Attack/AMI: No Hx Congestive Heart Failure: Yes (4LPM at home) Hx Diabetes: No Hx Deep Vein Thrombosis: No Hx Pulmonary Embolism: No Hx GERD: Yes Hx Renal Disease: Yes (ESRD T-TH-) Hx Arthritis: Yes (SPINE) Hx Asthma: No Hx COPD: No Hx Tuberculosis: No Hx Dementia: No Hx HIV: No Additional medical history: Hidradenitis, EJF 40%, enlarged heart - Surgical History Past Surgical History?: Yes Hx Pacemaker: No Hx Cholecystectomy: No Hx Appendectomy: No Hx Breast Surgery: No Additional Surgical History: PD CATHETER - AND REMOVAL. AV FISTULA. LYMPH NODES REMOVED LEFT GROIN. TONSILLECTOMY. Patient does have a history of peritonitis with previous PD - Social History Smoking Status: Former Smoker Substance Use Type: None - Medications Home Medications: Home Medications Medication Instructions Recorded Confirmed Last Taken Type AtorvaSTATin [Lipitor] 40 mg PO QHS #30 tab 03/27/18 06/01/18 05/31/18 Rx Esomeprazole Magnesium [Nexium] 40 mg PO DAILY #30 capsule. 03/27/18 06/01/18 05/31/18 Rx Folic Acid/Vit B Comp W-C [Renal 1 cap PO QDAY #60 capsule 03/27/18 06/01/18 05/31/18 Rx Caps] hydrALAZINE [Apresoline TAB] 100 mg PO TID #90 tab 03/27/18 06/01/18 05/31/18 Rx traZODone [Desyrel] 100 mg PO QHS #30 tablet 03/27/18 06/01/18 05/30/18 Rx NIFEdipine [Adalat cc] 90 mg PO BID 04/11/18 06/01/18 Unknown History Diclofenac Sodium [Voltaren] 100 gm TP Q6H #1 gel..gram. 04/21/18 06/01/18 05/31/18 Rx ALBUTEROL NEB's [Proventil 0.083% 2.5 mg IH Q4HRT PRN nebu 05/19/18 06/01/18 05/31/18 Rx NEBS] ALPRAZolam [Xanax TAB] 0.5 mg PO Q12HR #20 tablet 05/19/18 06/01/18 05/31/18 Rx Aspirin EC [Aspirin Enteric Coated 81 mg PO QDAY tablet 05/19/18 06/01/18 05/31/18 Rx TAB] AtorvaSTATin [Lipitor] 40 mg PO QHS tablet 05/19/18 06/01/18 05/31/18 Rx Carvedilol [Coreg] 25 mg PO BID tablet 05/19/18 06/01/18 05/31/18 Rx Acetaminophen [Tylenol Arthritis] 650 mg PO Q6HR PRN #30 tablet.er 06/22/18 Unknown Rx Metoclopramide [Reglan] 10 mg PO QID PRN #15 tab 06/22/18 Unknown Rx Promethazine [Phenergan] 25 mg MN Q6HR PRN #10 supp.rect 06/22/18 Unknown Rx levoFLOXacin [Levaquin] 250 mg PO Q48HR #3 tablet 06/22/18 Unknown Rx ED Physical Exam - General Limitations: No Limitations General appearance: alert, in no apparent distress - Head Head exam: Present: atraumatic, normocephalic - Eye Eye exam: Present: normal appearance, PERRL, EOMI - ENT ENT exam: Present: mucous membranes moist - Neck Neck exam: Present: normal inspection - Respiratory Respiratory exam: Present: normal lung sounds bilaterally. Absent: respiratory distress, wheezes, rales, rhonchi - Cardiovascular Cardiovascular Exam: Present: regular rate, normal rhythm, normal heart sounds. Absent: systolic murmur, diastolic murmur, rubs, gallop - GI/Abdominal GI/Abdominal exam: Present: soft, tenderness (LLQ), hypoactive bowel sounds. Absent: distended, guarding, rebound, rigid, normal bowel sounds - Rectal Rectal exam: Present: deferred - Extremities Exam Extremities exam: Present: normal inspection - Back Exam Back exam: Present: normal inspection - Neurological Exam Neurological exam: Present: alert, oriented X3 - Psychiatric Psychiatric exam: Present: normal affect, normal mood - Skin Skin exam: Present: warm, dry, intact, normal color. Absent: rash ED Course - Reevaluation(s) Reevaluation #1: 06/22/18 19:54 Patient is a 28-year-old male who is presenting with acute abdominal pain. Patient states that he had a partial small bowel obstruction several weeks ago. Patient states he had a bowel movement earlier today and is not having nausea vomiting but he does have decreased bowel sounds. CTs been ordered and is pending. ED Medical Decision Making - Lab Data Result diagrams: 06/22/18 14:18 06/22/18 14:18 Lab Results 06/22/18 06/22/18 06/22/18 Range/Units 14:18 14:18 14:18 WBC 6.5 (4.5-11.0) K/mm3 RBC 3.53 L (3.65-5.03) M/mm3 Hgb 9.4 L (11.8-15.2) gm/dl Hct 29.6 L (35.5-45.6) % MCV 84 (84-94) fl MCH 27 L (28-32) pg MCHC 32 (32-34) % RDW 21.2 H (13.2-15.2) % Plt Count 200 (140-440) K/mm3 Lymph % (Auto) 19.7 (13.4-35.0) % [place] % (Auto) 7.1 (0.0-7.3) % Eos % (Auto) 3.4 (0.0-4.3) % Baso % (Auto) 1.4 (0.0-1.8) % Lymph # 1.3 (1.2-5.4) K/mm3 [place] # 0.5 (0.0-0.8) K/mm3 Eos # 0.2 (0.0-0.4) K/mm3 Baso # 0.1 (0.0-0.1) K/mm3 Seg Neutrophils % 68.4 (40.0-70.0) % Seg Neutrophils # 4.5 (1.8-7.7) K/mm3 PT 14.7 (12.2-14.9) Sec. INR 1.08 (0.87-1.13) Sodium 142 (137-145) mmol/L Potassium 4.6 (3.6-5.0) mmol/L Chloride 101.2 (98-107) mmol/L Carbon Dioxide 25 (22-30) mmol/L Anion Gap 20 mmol/L BUN 48 H (9-20) mg/dL Creatinine 6.5 H (0.8-1.5) mg/dL Estimated GFR 10 ml/min BUN/Creatinine Ratio 7 % Glucose 70 L (75-100) mg/dL Calcium 8.1 L (8.4-10.2) mg/dL Total Bilirubin 0.30 (0.1-1.2) mg/dL AST 27 (5-40) units/L ALT 17 (7-56) units/L Alkaline Phosphatase 86 (35-129) units/L Total Protein 7.2 (6.3-8.2) g/dL Albumin 2.6 L (3.9-5) g/dL Albumin/Globulin Ratio 0.6 % ED Disposition Clinical Impression: End stage renal disease on dialysis, Pulmonary infiltrate, History of nausea and vomiting Abdominal pain Qualifiers: Abdominal location: left lower quadrant Qualified Code(s): R10.32 - Left lower quadrant pain Disposition: TO HOME OR SELFCARE Condition: Stable Additional Instructions: Take the medications as needed/directed. Do not consume alcohol while taking these medications. Follow-up in 2 days for repeat checkup/evaluation. The patient may return to the emergency room for a repeat checkup or evaluation, with follow-up with his primary care doctor, his private personnel records clerk, or any of the listed pulmonology specialists. Please return to the emergency room right away with new pain, worsened pain, migration of pain, projectile vomiting, change in mental status, confusion, inability to tolerate liquid feeds, new, worsening or different symptoms. Referrals: TIANNA SHERMAN MD [Staff Physician] - 3-5 Days MAINOR BONILLA MD [Staff Physician] - 3-5 Days <ARCADIO SKAGGS - Last Filed: 06/22/18 22:31> ED Review of Systems ROS: Stated complaint: SOB/ABD PAIN Other details as noted in HPI ED Course Vital Signs 06/22/18 06/22/18 06/22/18 14:07 19:25 19:49 Temperature 98.3 F Pulse Rate 66 Respiratory 16 20 20 Rate Blood Pressure 156/81 Blood Pressure [Right] O2 Sat by Pulse 98 98 Oximetry 06/22/18 06/22/18 06/22/18 19:58 21:00 21:45 Temperature 98.3 F Pulse Rate 64 60 58 L Respiratory 20 17 17 Rate Blood Pressure 182/95 182/95 Blood Pressure 187/95 [Right] O2 Sat by Pulse 98 96 96 Oximetry - Reevaluation(s) Reevaluation #2: 06/22/18 22:18 The patient is reassessed. I have evaluated this patient multiple times in the past. The patient has had multiple evaluations for chronic left lower quadrant abdominal pain. I myself have seen this patient for multiple complaints, including left lower quadrant pain, including 03/05/2017, 07/14/2017, and on 05/17/2018. Patient has had multiple CT scans of the abdomen and pelvis, some of which have demonstrated acute disease, some of which have not. I am familiar with this patient's past medical history, and have a good recollection of his prior physical examinations. He is minimally tender in his left lower quadrant today, and this appears to be similar to prior examinations. He vomited once or twice in the emergency room, and reported that ketorolac was not adequate pain medication for him. The patient does have a chronic pain syndrome, and I believe he is experiencing an acute exacerbation of his chronic pain, and we'll therefore treat him with hydromorphone. He is also given Reglan. He reports that he is defecating and passing gas. He denies testicular pain. After the aforementioned IV medications, he felt improved, with no active vomiting, and is in fact sleeping comfortably in his stretcher. Clinically do not suspect pneumonia, as he denies cough, shortness of breath or mucous production at this time, he has had chronic shortness of breath, but he reports that it appears to be improved when compared to baseline. I personally reviewed his CT scan images, and compared them to prior images, and we will cover empirically for pneumonia, as this may be causing abdominal pain, with nausea and vomiting. The patient is saturating well, with no acute respiratory distress, and received dialysis today. In addition, pleural effusions appeared to be improved from baseline. We will give the patient a trial of outpatient antibiotics with levofloxacin, with instructions to follow-up in 2 days for repeat checkup/evaluation. this patient is reliable to follow-up, return to the emergency room if his condition worsens. ED Medical Decision Making - Lab Data Result diagrams: 06/22/18 14:18 06/22/18 14:18 - Radiology Data Radiology results: report reviewed, image reviewed Print Report Referring Physician: CODY SO Patient Name: LUIS Alcocer TUESDAY Date of : 1990 Sex: Male Report Date: 2018-06-22 Report Status: [place] [address] Cat Scan Report Signed Patient: TUESDAY,LUIS Alcocer MR#: [id number] 4 : 1990 Acct:[id number] Age/Sex: 28 / M ADM Date: 06/22/18 Loc: ED Attending Dr: Ordering Physician: CODY SO MD Date of Service: 06/22/18 Procedure(s): CT abdomen pelvis wo con Accession Number(s): [id number] cc: CODY SO MD PROCEDURE: CT ABDOMEN PELVIS WO CON TECHNIQUE: Computerized axial tomography of the abdomen and pelvis was performed without intravenous contrast. This study is performed without intravascular contrast material and its sensitivity for abdominal and pelvic pathology, including neoplasms, inf lammation, abscess, free fluid, thrombosis, arterial dissection and infarction, is reduced compared with a contrast enhanced study. CT DOSE LENGTH PRODUCT: 1001.7 mGycm HISTORY: llq pain 5 hours COMPARISONS: None . FINDINGS: Visualized lower thorax: Bilateral layering pleural effusions. There is focal airspace consolidation at the right lung base, which could be related to infectious infiltrate or atelectasis. There is pericardial effusion also present, measuring up to 15 mm in thickness. Liver: Normal size and attenuation. Spleen: Normal size and attenuation. Gallbladder and biliary system: Normal. Pancreas: Normal. Adrenals: Normal. Kidneys: Bilateral renal atrophy. GI tract: Limited evaluation due to lack of contrast. No evidence of bowel obstruction. Moderate volume of stool seen in the colon . Lymph nodes and mesentery: Normal. Vasculature: Normal.. Bladder: Possible urinary bladder wall thickening, with limited evaluation due to lack of distention. Reproductive organs: Diffuse vascular calcifications. Peritoneum: Moderate volume of free intraperitoneal fluid. Musculoskeletal structures: Diffuse osseous sclerosis is likely related to renal osteodystrophy. Other: Anasarca. IMPRESSION: Limited evaluation of bowel due to lack of contrast, however no evidence of bowel obstruction. Stable free intraperitoneal fluid . The urinary bladder is not distended. There may be urinary bladder wall thickening related to cystitis. Correlate clinically This document is electronically signed by Shazia Sherman MD., June 22 2018 08:34:53 PM ET Transcribed By: [facility] Dictated By: SHAZIA SHERMAN M.D. Electronically Authenticated By: SHAZIA SHERMAN M.D. Signed Date/Time: 06/22/182035 DD/ 54 Print Report Referring Physician: VERONA ROJO Patient Name: LUIS Alcocer TUESDAY Date of : 1990 Sex: Male Report Date: 2018-06-22 Report Status: Finalized Findings [address] [address] XRay Report Signed Patient: TUESDAY,LUIS Alcocer MR#: [id number] 4 : 1990 Acct:[id number] Age/Sex: 28 / M ADM Date: 06/22/18 Loc: ED Attending Dr: Ordering Physician: ISIDORO NLOAN Date of Service: 06/22/18 Procedure(s): XR chest routine 2V Accession Number(s): [id number] cc: ISIDORO NOLAN Fluoro Time In Minutes: ROUTINE CHEST, TWO VIEWS: HISTORY: Short of breath. Compared to 06/09/18. Mild cardiomegaly is stable. Pulmonary venous congestion has nearly resolved. Small right pleural effusion appears stable. Small left pleural effusion has decreased by 2 rib levels the previous exam. There are mild bibasilar atelectatic changes. No obvious infiltrate. No pneumothorax. IMPRESSION: Mild CHF. Slightly improved since 06/09/18. Transcribed By: TTR Dictated By: AR ALVAREZ JR, MD Electronically Authenticated By: AR ALVAREZ JR, MD Signed Date/Time: 06/22/18 1520 Critical care attestation.: If time is entered above; I have spent that time in minutes in the direct care of this critically ill patient, excluding procedure time. ED Disposition Is pt being admited?: No Does the pt Need Aspirin: No
--- NOTE | 2018-06-22 20:36 | Cat Scan Report ---
PROCEDURE: CT ABDOMEN PELVIS WO CON TECHNIQUE: Computerized axial tomography of the abdomen and pelvis was performed without intravenous contrast. This study is performed without intravascular contrast material and its sensitivity for ab dominal and pelvic pathology, including neoplasms, inflammation, abscess, free fluid, thrombosis, art erial dissection and infarction, is reduced compared with a contrast enhanced study. CT DOSE LENGTH PRODUCT: 1001.7 mGycm HISTORY: llq pain 5 hours COMPARISONS: None . FINDINGS: Visualized lower thorax: Bilateral layering pleural effusions. There is focal airspace consolidation at the right lung base, which could be related to infectious infiltrate or atelectasis. There is jose cardial effusion also present, measuring up to 15 mm in thickness. Liver: Normal size and attenuation. Spleen: Normal size and attenuation. Gallbladder and biliary system: Normal. Pancreas: Normal. Adrenals: Normal. Kidneys: Bilateral renal atrophy. GI tract: Limited evaluation due to lack of contrast. No evidence of bowel obstruction. Moderate vol ume of stool seen in the colon . Lymph nodes and mesentery: Normal. Vasculature: Normal.. Bladder: Possible urinary bladder wall thickening, with limited evaluation due to lack of distention. Reproductive organs: Diffuse vascular calcifications. Peritoneum: Moderate volume of free intraperitoneal fluid. Musculoskeletal structures: Diffuse osseous sclerosis is likely related to renal osteodystrophy. Other: Anasarca. IMPRESSION: Limited evaluation of bowel due to lack of contrast, however no evidence of bowel obstruction. Stable free intraperitoneal fluid . The urinary bladder is not distended. There may be urinary bladder wall thickening related to cystiti s. Correlate clinically This document is electronically signed by Shazia Sherman MD., June 22 2018 08:34:53 PM ET
[2018-06-22] MEDS ORDERED: LEVAQUIN 500MG/100ML 500 MG/100 ML BAG IV ONE (21:06)
[2018-06-22] MEDS ORDERED: REGLAN IV ONE (21:06)
[2018-06-22] MEDS ORDERED: DILAUDID IV ONE (21:06)
[2018-06-22 23:18] VITALS: BP 186/97
== END 2018-06-23 00:12 | disposition home or self-care (01) ==
LOC: ED 13:15
DX: I13.2 Hypertensive heart and chronic kidney disease with heart failure and with stage 5 chronic kidney disease, or end stage renal disease (principal); N18.6 End stage renal disease; I50.9 Heart failure, unspecified; K21.9 Gastro-esophageal reflux disease without esophagitis; M19.90 Unspecified osteoarthritis, unspecified site; Z99.2 Dependence on renal dialysis; Z88.8 Allergy status to other drugs, medicaments and biological substances; Z87.891 Personal history of nicotine dependence
CPT/HCPCS: 36415; 71046; 74176; 80053; 85025; 85610; 96365; 96375; 99284; J1170; J1885; J1956; J2405; J2765

== ENCOUNTER 2018-06-26 12:26 | Emergency (ER) | payer MEDICARE ==
--- NOTE | 2018-06-26 12:48 | Emergency Department Report ---
Chief Complaint: Chest Pain Stated Complaint: SICK Time Seen by Provider: 06/26/18 12:44 - HPI History of Present Illness: Pt presents with chronic LLQ abd pain pt was here on 06/22/18 advised to follow up with PCP, has not done so yet pt is on dialysis T, Th, Sat (+) N/V no diarrhea no fever pt states also has "soreness of the chest", no radiation, no SOB no cough MSE screening note: Focused history and physical exam performed. Due to findings the following was ordered: labs, EKG, chest XR with abd series ED Disposition for MSE Condition: Stable
[2018-06-26 13:07] LABS: Basophils # (Auto) 0.1 K/mm3 (0.0-0.1); Basophils % (Auto) 2.1 % (0.0-1.8); Eosinophils # (Auto) 0.2 K/mm3 (0.0-0.4); Eosinophils % (Auto) 3.1 % (0.0-4.3); Hematocrit 29.5 % (35.5-45.6); Hemoglobin 9.1 gm/dl (11.8-15.2); Lymphocytes # (Auto) 1.5 K/mm3 (1.2-5.4); Lymphocytes % (Auto) 21.2 % (13.4-35.0); Mean Corpuscular HGB Conc 31 % (32-34); Mean Corpuscular Volume 88 fl (84-94); Monocytes # (Auto) 0.4 K/mm3 (0.0-0.8); Monocytes % (Auto) 5.9 % (0.0-7.3); Platelet Count 228 K/mm3 (140-440); Red Blood Count 3.37 M/mm3 (3.65-5.03)
[2018-06-26 13:08] LABS: Red Cell Distribution Width 22.9 % (13.2-15.2)
[2018-06-26 13:30] LABS: Albumin 2.9 g/dL (3.9-5); Calcium 7.9 mg/dL (8.4-10.2)
[2018-06-26] MEDS ORDERED: APRESOLINE IV ONE (15:05)
[2018-06-26] MEDS ORDERED: DILAUDID IV ONE (15:06)
[2018-06-26] MEDS ORDERED: ZOFRAN IV ONE (15:06)
--- NOTE | 2018-06-26 15:11 | Emergency Department Report ---
ED General Adult HPI - General Chief complaint: Chest Pain Stated complaint: SICK Time Seen by Provider: 06/26/18 12:44 Source: patient, RN notes reviewed, old records reviewed Mode of arrival: Ambulatory Limitations: No Limitations - History of Present Illness Initial comments: This is a 28-year-old gentleman. I have evaluated this patient multiple times in the past. His eyelet riveter is Dr. Salinas. His past medical history includes end-stage renal disease, on dialysis, Tuesday, , Tuesday, small bowel obstruction, chronic abdominal pain, history of pleural effusion, history of pericardial effusion. 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 The patient presents today with his typical constellation of complaints, including acute on chronic left lower large abdominal pain. He also indicates 7 episodes of nonbloody, nonbilious emesis. He is defecating normally. He denies testicular pain. Today, patient complains of additional new complaints, as he complains of chest pain. He reports his chest pain is present since the morning. It is left-sided and right-sided. It does not radiate to the back, arms and neck. He denies diaphoresis. He has chronic shortness of breath. Last month during her hospitalization, patient had an ultrasound-guided pericardiocentesis, where he had 1400 mL of bloody fluid drained. -: Gradual, hour(s) Location: chest, abdomen Severity scale (0 -10): 10 Quality: aching Consistency: constant Improves with: rest Worsens with: movement - Related Data Home Medications Medication Instructions Recorded Confirmed Last Taken NIFEdipine [Adalat cc] 90 mg PO BID 04/11/18 06/01/18 Unknown Previous Rx's Medication Instructions Recorded Last Taken Type AtorvaSTATin [Lipitor] 40 mg PO QHS #30 tab 03/27/18 05/31/18 Rx Esomeprazole Magnesium [Nexium] 40 mg PO DAILY #30 capsule. 03/27/18 05/31/18 Rx Folic Acid/Vit B Comp W-C [Renal 1 cap PO QDAY #60 capsule 03/27/18 05/31/18 Rx Caps] hydrALAZINE [Apresoline TAB] 100 mg PO TID #90 tab 03/27/18 05/31/18 Rx traZODone [Desyrel] 100 mg PO QHS #30 tablet 03/27/18 05/30/18 Rx Diclofenac Sodium [Voltaren] 100 gm TP Q6H #1 gel..gram. 04/21/18 05/31/18 Rx ALBUTEROL NEB's [Proventil 0.083% 2.5 mg IH Q4HRT PRN nebu 05/19/18 05/31/18 Rx NEBS] ALPRAZolam [Xanax TAB] 0.5 mg PO Q12HR #20 tablet 05/19/18 05/31/18 Rx Aspirin EC [Aspirin Enteric Coated 81 mg PO QDAY tablet 05/19/18 05/31/18 Rx TAB] AtorvaSTATin [Lipitor] 40 mg PO QHS tablet 05/19/18 05/31/18 Rx Carvedilol [Coreg] 25 mg PO BID tablet 05/19/18 05/31/18 Rx Acetaminophen [Tylenol Arthritis] 650 mg PO Q6HR PRN #30 tablet.er 06/22/18 Unknown Rx Metoclopramide [Reglan] 10 mg PO QID PRN #15 tab 06/22/18 Unknown Rx Promethazine [Phenergan] 25 mg GA Q6HR PRN #10 supp.rect 06/22/18 Unknown Rx levoFLOXacin [Levaquin] 250 mg PO Q48HR #3 tablet 06/22/18 Unknown Rx Oxycodone HCl/Acetaminophen 1 each PO Q6HR PRN #12 tablet 06/26/18 Unknown Rx [Percocet 7.5/325 mg] Allergies Allergy/AdvReac Type Severity Reaction Status Date / Time heparin Allergy lowers Verified 06/26/18 12:29 platelets ED Review of Systems ROS: Stated complaint: SICK Other details as noted in HPI Constitutional: denies: fever Eyes: denies: eye discharge ENT: congestion Respiratory: shortness of breath, SOB with exertion, SOB at rest Cardiovascular: chest pain Gastrointestinal: abdominal pain, nausea, vomiting Genitourinary: denies: testicular pain Musculoskeletal: arthralgia Skin: denies: lesions Neurological: weakness Psychiatric: anxiety ED Past Medical Hx - Past Medical History Hx Hypertension: Yes Hx Heart Attack/AMI: No Hx Congestive Heart Failure: Yes (4LPM at home) Hx Diabetes: No Hx Deep Vein Thrombosis: No Hx Pulmonary Embolism: No Hx GERD: Yes Hx Renal Disease: Yes (ESRD T-TH-) Hx Arthritis: Yes (SPINE) Hx Asthma: No Hx COPD: No Hx Tuberculosis: No Hx Dementia: No Hx HIV: No Additional medical history: Hidradenitis, EJF 40%, enlarged heart - Surgical History Hx Pacemaker: No Hx Cholecystectomy: No Hx Appendectomy: No Hx Breast Surgery: No Additional Surgical History: PD CATHETER - AND REMOVAL. AV FISTULA. LYMPH NODES REMOVED LEFT GROIN. TONSILLECTOMY. Patient does have a history of peritonitis with previous PD - Social History Smoking Status: Former Smoker Substance Use Type: None - Medications Home Medications: Home Medications Medication Instructions Recorded Confirmed Last Taken Type AtorvaSTATin [Lipitor] 40 mg PO QHS #30 tab 03/27/18 06/01/18 05/31/18 Rx Esomeprazole Magnesium [Nexium] 40 mg PO DAILY #30 capsule. 03/27/18 06/01/18 05/31/18 Rx Folic Acid/Vit B Comp W-C [Renal 1 cap PO QDAY #60 capsule 03/27/18 06/01/18 05/31/18 Rx Caps] hydrALAZINE [Apresoline TAB] 100 mg PO TID #90 tab 03/27/18 06/01/18 05/31/18 Rx traZODone [Desyrel] 100 mg PO QHS #30 tablet 03/27/18 06/01/18 05/30/18 Rx NIFEdipine [Adalat cc] 90 mg PO BID 04/11/18 06/01/18 Unknown History Diclofenac Sodium [Voltaren] 100 gm TP Q6H #1 gel..gram. 04/21/18 06/01/18 05/31/18 Rx ALBUTEROL NEB's [Proventil 0.083% 2.5 mg IH Q4HRT PRN nebu 05/19/18 06/01/18 05/31/18 Rx NEBS] ALPRAZolam [Xanax TAB] 0.5 mg PO Q12HR #20 tablet 05/19/18 06/01/18 05/31/18 Rx Aspirin EC [Aspirin Enteric Coated 81 mg PO QDAY tablet 05/19/18 06/01/18 05/31/18 Rx TAB] AtorvaSTATin [Lipitor] 40 mg PO QHS tablet 05/19/18 06/01/18 05/31/18 Rx Carvedilol [Coreg] 25 mg PO BID tablet 05/19/18 06/01/18 05/31/18 Rx Acetaminophen [Tylenol Arthritis] 650 mg PO Q6HR PRN #30 tablet.er 06/22/18 Unknown Rx Metoclopramide [Reglan] 10 mg PO QID PRN #15 tab 06/22/18 Unknown Rx Promethazine [Phenergan] 25 mg GA Q6HR PRN #10 supp.rect 06/22/18 Unknown Rx levoFLOXacin [Levaquin] 250 mg PO Q48HR #3 tablet 06/22/18 Unknown Rx Oxycodone HCl/Acetaminophen 1 each PO Q6HR PRN #12 tablet 06/26/18 Unknown Rx [Percocet 7.5/325 mg] ED Physical Exam - General Limitations: No Limitations General appearance: alert, other (chronically wasted) - Head Head exam: Present: atraumatic, normocephalic - Eye Eye exam: Present: normal appearance, EOMI. Absent: nystagmus - ENT ENT exam: Present: normal exam, normal orophraynx, mucous membranes moist, normal external ear exam - Neck Neck exam: Present: normal inspection, full ROM. Absent: tenderness, meningismus - Respiratory Respiratory exam: Present: normal lung sounds bilaterally. Absent: respiratory distress - Cardiovascular Cardiovascular Exam: Present: regular rate, normal rhythm, normal heart sounds. Absent: bradycardia, tachycardia, irregular rhythm, systolic murmur, diastolic murmur, rubs, gallop - GI/Abdominal GI/Abdominal exam: Present: soft, tenderness (there is left lower quadrant te nderness). Absent: distended, guarding, rebound, rigid - Rectal Rectal exam: Present: deferred - Extremities Exam Extremities exam: Present: normal inspection, full ROM, other (2+ pulses noted in the bilateral upper, lower extremities. Compartments soft. No long bony tenderness. The pelvis is stable.). Absent: calf tenderness - Back Exam Back exam: Present: normal inspection, full ROM. Absent: paraspinal tenderness, vertebral tenderness - Neurological Exam Neurological exam: Present: alert, other (Extraocular movements intact. Tongue midline. No facial droop. Facial sensation intact to light touch in the V1, V2, V3 distribution bilaterally. 5 and 5 strength in 4 extremities.. Sensation is intact to light touch in 4 extremities.). Absent: motor sensory deficit - Psychiatric Psychiatric exam: Present: normal affect, normal mood - Skin Skin exam: Present: warm, dry, intact, normal color. Absent: rash ED Course Vital Signs 06/26/18 06/26/18 06/26/18 12:46 14:25 14:30 Temperature 97.5 F L Pulse Rate 61 60 57 L Respiratory 18 22 23 Rate Blood Pressure 188/79 196/99 Blood Pressure [Left] O2 Sat by Pulse 97 98 98 Oximetry 06/26/18 06/26/18 06/26/18 15:00 15:20 15:23 Temperature Pulse Rate 64 62 Respiratory 15 18 Rate Blood Pressure 195/94 179/82 Blood Pressure [Left] O2 Sat by Pulse 98 Oximetry 06/26/18 06/26/18 16:00 17:14 Temperature Pulse Rate 60 62 Respiratory 19 16 Rate Blood Pressure 179/82 Blood Pressure 187/85 [Left] O2 Sat by Pulse 99 98 Oximetry ED Medical Decision Making - Lab Data Result diagrams: 06/26/18 12:52 06/26/18 12:52 Vital Signs 06/26/18 06/26/18 06/26/18 12:46 15:20 15:23 Temperature 97.5 F L Pulse Rate 61 62 Respiratory 18 18 Rate Blood Pressure 188/79 179/82 O2 Sat by Pulse 97 Oximetry Lab Results 06/26/18 06/26/18 Range/Units 12:52 12:52 WBC 7.0 (4.5-11.0) K/mm3 RBC 3.37 L (3.65-5.03) M/mm3 Hgb 9.1 L (11.8-15.2) gm/dl Hct 29.5 L (35.5-45.6) % MCV 88 (84-94) fl MCH 27 L (28-32) pg MCHC 31 L (32-34) % RDW 22.9 H (13.2-15.2) % Plt Count 228 (140-440) K/mm3 Lymph % (Auto) 21.2 (13.4-35.0) % Page % (Auto) 5.9 (0.0-7.3) % Eos % (Auto) 3.1 (0.0-4.3) % Baso % (Auto) 2.1 H (0.0-1.8) % Lymph # 1.5 (1.2-5.4) K/mm3 Page # 0.4 (0.0-0.8) K/mm3 Eos # 0.2 (0.0-0.4) K/mm3 Baso # 0.1 (0.0-0.1) K/mm3 Seg Neutrophils % 67.7 (40.0-70.0) % Seg Neutrophils # 4.7 (1.8-7.7) K/mm3 Sodium 143 (137-145) mmol/L Potassium 5.1 H (3.6-5.0) mmol/L Chloride 102.8 (98-107) mmol/L Carbon Dioxide 24 (22-30) mmol/L Anion Gap 21 mmol/L BUN 64 H (9-20) mg/dL Creatinine 7.6 H (0.8-1.5) mg/dL Estimated GFR 8 ml/min BUN/Creatinine Ratio 8 % Glucose 84 (75-100) mg/dL Calcium 7.9 L (8.4-10.2) mg/dL Phosphorus 5.50 H (2.5-4.5) mg/dL Magnesium 1.90 (1.7-2.3) mg/dL Total Bilirubin 0.30 (0.1-1.2) mg/dL AST 24 (5-40) units/L ALT 16 (7-56) units/L Alkaline Phosphatase 88 (35-129) units/L Total Protein 7.4 (6.3-8.2) g/dL Albumin 2.9 L (3.9-5) g/dL Albumin/Globulin Ratio 0.6 % Lipase 85 H (13-60) units/L - EKG Data -: EKG Interpreted by Ms EKG shows normal: sinus rhythm Rate: bradycardia - EKG Data 06/26/18 16:44 EKG shows a sinus bradycardia, normal axis, QTC 441 ms, T-wave inversions V4, V5 and V6, T-wave inversions appear to be new when compared to prior, patient has low voltage, this is an abnormal EKG, his EKG is not consistent with ST ramses vation myocardial - Radiology Data Radiology results: report reviewed, image reviewed Print Report Referring Physician: SAM ROME Patient Name: LUIS Alcocer TUESDAY Date of : 1990 Sex: Male Report Date: 2018-06-26 Report Status: Finalized Findings [address] [address] XRay Report Signed Patient: TUESDAYLUIS MR#: [id number] 4 : 1990 Acct:[id number] Age/Sex: 28 / M ADM Date: 06/26/18 Loc: ED Attending Dr: Ordering Physician: ISIDORO HALL Date of Service: 06/26/18 Procedure(s): XR abd series w cxr 1V Accession Number(s): [id number] cc: ISIDORO HALL Fluoro Time In Minutes: ABDOMINAL SERIES: History: Left-sided abdominal pain with chest soreness. AP view of the chest demonstrates mild cardiomegaly and small bilateral pleural effusions. There are mild atelectatic changes at the lung bases. Supine and erect views of the abdomen demonstrate an unremarkable bowel gas pattern. There is no evidence for obstruction, fluid levels or large free air. The organ shadows are unremarkable. IMPRESSION: Mild CHF. Unremarkable abdomen. Transcribed By: TTR Dictated By: AR ALVRAEZ JR, MD Electronically Authenticated By: AR ALVAREZ JR, MD Signed Date/Time: 06/26/181451 DD/ 145 TD/TT: 06/26/18 1452 Print Report Referring Physician: ARCADIO SKAGGS Patient Name: LUIS Alcocer TUESDAY Date of : 1990 Sex: Male Report Date: 2018-06-26 Report Status: Finalized Findings [address] [address] Cat Scan Report Signed Patient: TUESDAYLUIS MR#: [id number] 4 : 1990 Acct:[id number] Age/Sex: 28 / M ADM Date: 06/26/18 Loc: ED Attending Dr: Ordering Physician: ARCADIO SKAGGS MD Date of Service: 06/26/18 Procedure(s): CT abdomen pelvis wo con Accession Number(s): [id number] cc: ARCADIO SKAGGS MD PROCEDURE: CT ABDOMEN PELVIS WO CON TECHNIQUE: Computerized axial tomography of the abdomen and pelvis was performed without intravenous contrast. This study is performed without intravascular contrast material and its sensitivity for abdominal and pelvic pathology, including neoplasms, inflammation, abscess, free fluid, thrombosis, arterial dissection and infarction, is reduced compared with a contrast enhanced study. CT DOSE LENGTH PRODUCT: 1370.6 mGycm HISTORY: llq pain COMPARISONS: Prior CT scan abdomen and and pelvis 06/22/2018 FINDINGS: Lower Lung miranda: Moderate-sized bilateral pleural effusions are again appear to be present without significant interval change. There appears to be some dependent atelectasis in the lung bases without dense consolidation. Subsegmental infiltrates in the clinical exclusion. Diffuse body wall edema is present. This was seen on the prior study as well. Upper Abdomen: There is moderate amount of ascites visualized in the upper abdomen and extending into the pelvis. The volume is probably unchanged. The unenhanced images of the liver, adrenal glands, the pancreas and spleen show no focal abnormalities. The spleen is mildly enlarged measuring 14 cm otherwise is unremarkable. Gallbladder is not clearly visualized. Kidneys, Ureters and Urinary bladder: Kidneys bilaterally are again noted to be atrophied. Renal arterial calcifications are visualized. No renal masses or hydronephrosis visualized. No ureteral calculi are seen. The urinary bladder are thicker than expected. This could be related to diffuse edema. I cannot exclude cystitis. Retroperitoneum: Atherosclerotic changes are seen in the abdominal aorta. No aneurysm is visualized. Nonspecific subcentimeter lymph nodes are seen in the retroperitoneum. No pathologically enlarged lymph nodes are identified. Bowel: Bowel loops are suboptimally seen without oral contrast or IV contrast. No gross abnormalities seen. There is no free air or evidence of bowel obstruction. Normal-appearing appendix appears to be visualized in the right lower quadrant. Reproductive organs: The prostate gland does not appear to be enlarged. Other: No acute bone abnormalities are identified. Bone density remains mildly diffusely increased likely related to chronic renal failure. IMPRESSION: Moderate-sized bilateral pleural effusions with adjacent atelectasis again visualized. Subsegmental infiltrates and clinical exclusion. Diffuse body wall edema present. This is unchanged. Moderate amount of ascites visualized, this is probably unchanged in volume. Mild splenomegaly. Diffuse renal atrophy again visualized. No evidence of hydronephrosis. Urinary bladder wall again thickened as described above. No acute abnormality is seen. This document is electronically signed by West ambrose MD., June 26 2018 05:16:54 PM ET Transcribed By: DFHuey Dictated By: WEST SANTOYO MD Electronically Authenticated By: WEST SANTOYO MD Signed Date/Time: 06/26/18 0177 - Medical Decision Making Differential diagnosis, including not limited to: Pericarditis, myocarditis, pneumonia, pleural effusion, recurrent small bowel obstruction, acute coronary syndrome, constipation, narcotic bowel syndrome Assessment and plan: 29-year-old gentleman with acute on chronic left lower quadrant abdominal pain. Patient always has tenderness and pain in the left lower quadrant. His exam today appears to be similar to multiple prior examinations. Given complex abdominal history, including bowel obstruction, possible infection in the past, repeat CT scan of the abdomen and pelvis is ordered. I think a pulmonary embolus is unlikely given the history and physical. CT scan of the abdomen and pelvis has been ordered. will admit to Dr Sarita Venegas for chest pain, moderate risk by heart score Critical care attestation.: If time is entered above; I have spent that time in minutes in the direct care of this critically ill patient, excluding procedure time. ED Disposition Clinical Impression: Chest pain, End stage renal disease on dialysis, Elevated troponin I level Disposition: OP ADMIT IP TO THIS HOSP Is pt being admited?: Yes Does the pt Need Aspirin: Yes Condition: Stable Instructions: Chest Pain (ED) Prescriptions: Oxycodone HCl/Acetaminophen [Percocet 7.5/325 mg] 1 each PO Q6HR PRN #12 tablet PRN Reason: Pain Referrals: VANDANA AYERS MD [Primary Care Provider] - 3-5 Days
--- NOTE | 2018-06-26 15:14 | XRay Report ---
ABDOMINAL SERIES: History: Left-sided abdominal pain with chest soreness. AP view of the chest demonstrates mild cardiomegaly and small bilateral pleural effusions. There are mild atelectatic changes at the lung bases. Supine and erect views of the abdomen demonstrate an unremarkable bowel gas pattern. There is no evidence for obstruction, fluid levels or large free air. The organ shadows are unremarkable. IMPRESSION: Mild CHF. Unremarkable abdomen.
[2018-06-26 16:01] LABS: INR 1.11 (0.87-1.13)
--- NOTE | 2018-06-26 16:46 | Event Note ---
Date: 06/26/18 Patient for chest pain Patient has extensive history of end-stage renal disease, nonischemic cardiomyopathy, and a pericardial effusion. Patient had pericardiocentesis about 10 days ago with drainage of about 1.2 L of fluid. During the exam patient was just pain-free and was playing with the phone a video game. All his labs were noted Patient has a troponin on the mid 0.300. His baseline troponin is 0.377. Patient had echocardiogram recently with a ejection fraction of about 20%. Patient had a cardiac cath in December 2017 which did not show any critical stenosis of any other coronary artery disease. Irregular lumen but otherwise normal. Diagnoses: atypical chest pain Symptomatic treatment with pain killers/Analgesics Discharge home on Percocet 5/325 4 times a day when necessary
[2018-06-26 16:50] LABS: Chol/HDL Ratio 2.5 %
--- NOTE | 2018-06-26 17:19 | Cat Scan Report ---
PROCEDURE: CT ABDOMEN PELVIS WO CON TECHNIQUE: Computerized axial tomography of the abdomen and pelvis was performed without intravenous contrast. This study is performed without intravascular contrast material and its sensitivity for ab dominal and pelvic pathology, including neoplasms, inflammation, abscess, free fluid, thrombosis, art erial dissection and infarction, is reduced compared with a contrast enhanced study. CT DOSE LENGTH PRODUCT: 1370.6 mGycm HISTORY: llq pain COMPARISONS: Prior CT scan abdomen and and pelvis 06/22/2018 FINDINGS: Lower Lung miranda: Moderate-sized bilateral pleural effusions are again appear to be present without significant interval change. There appears to be some dependent atelectasis in the lung bases withou t dense consolidation. Subsegmental infiltrates in the clinical exclusion. Diffuse body wall edema is present. This was seen on the prior study as well. Upper Abdomen: There is moderate amount of ascites visualized in the upper abdomen and extending int o the pelvis. The volume is probably unchanged. The unenhanced images of the liver, adrenal glands, the pancreas and spleen show no focal abnormaliti es. The spleen is mildly enlarged measuring 14 cm otherwise is unremarkable. Gallbladder is not clear ly visualized. Kidneys, Ureters and Urinary bladder: Kidneys bilaterally are again noted to be atrophied. Renal art erial calcifications are visualized. No renal masses or hydronephrosis visualized. No ureteral calcul i are seen. The urinary bladder are thicker than expected. This could be related to diffuse edema. I cannot exclude cystitis. Retroperitoneum: Atherosclerotic changes are seen in the abdominal aorta. No aneurysm is visualized. Nonspecific subcentimeter lymph nodes are seen in the retroperitoneum. No pathologically enlarged ly mph nodes are identified. Bowel: Bowel loops are suboptimally seen without oral contrast or IV contrast. No gross abnormalitie s seen. There is no free air or evidence of bowel obstruction. Normal-appearing appendix appears to b e visualized in the right lower quadrant. Reproductive organs: The prostate gland does not appear to be enlarged. Other: No acute bone abnormalities are identified. Bone density remains mildly diffusely increased li arnold related to chronic renal failure. IMPRESSION: Moderate-sized bilateral pleural effusions with adjacent atelectasis again visualized. Subsegmental i nfiltrates and clinical exclusion. Diffuse body wall edema present. This is unchanged. Moderate amount of ascites visualized, this is probably unchanged in volume. Mild splenomegaly. Diffuse renal atrophy again visualized. No evidence of hydronephrosis. Urinary bladder wall again thi ckened as described above. No acute abnormality is seen. This document is electronically signed by West Mitchell MD., June 26 2018 05:16:54 PM ET
[2018-06-27 19:00] VITALS: BP 187/85
== END 2018-06-26 17:15 | disposition admitted as inpatient to this hospital (09) ==
LOC: ED 12:26
DX: I13.2 Hypertensive heart and chronic kidney disease with heart failure and with stage 5 chronic kidney disease, or end stage renal disease (principal); N18.6 End stage renal disease; I50.9 Heart failure, unspecified; Z99.2 Dependence on renal dialysis; K21.9 Gastro-esophageal reflux disease without esophagitis; M19.90 Unspecified osteoarthritis, unspecified site; Z87.891 Personal history of nicotine dependence; Z88.8 Allergy status to other drugs, medicaments and biological substances; Z79.82 Long term (current) use of aspirin
CPT/HCPCS: 36415; 74022; 74176; 80053; 80061; 82140; 82550; 83690; 83735; 84100; 84484; 85025; 85610; 87040; 93005; 93010; 96374; 96375; 99284; J0360; J1170; J2405

== ENCOUNTER 2018-07-04 10:14 | Inpatient (IN) | payer MEDICARE ==
--- NOTE | 2018-07-04 14:25 | Emergency Department Report ---
ED Abdominal Pain HPI - General Chief Complaint: Abdominal Pain Stated Complaint: ABD/LEG PAIN Source: patient Mode of arrival: Ambulatory Limitations: No Limitations - History of Present Illness MD Complaint: abdominal pain Severity scale (0 -10): 9 - Related Data Home Medications Medication Instructions Recorded Confirmed Last Taken NIFEdipine [Adalat cc] 90 mg PO BID 04/11/18 06/01/18 Unknown Previous Rx's Medication Instructions Recorded Last Taken Type AtorvaSTATin [Lipitor] 40 mg PO QHS #30 tab 03/27/18 05/31/18 Rx Esomeprazole Magnesium [Nexium] 40 mg PO DAILY #30 capsule. 03/27/18 05/31/18 Rx Folic Acid/Vit B Comp W-C [Renal 1 cap PO QDAY #60 capsule 03/27/18 05/31/18 Rx Caps] hydrALAZINE [Apresoline TAB] 100 mg PO TID #90 tab 03/27/18 05/31/18 Rx traZODone [Desyrel] 100 mg PO QHS #30 tablet 03/27/18 05/30/18 Rx Diclofenac Sodium [Voltaren] 100 gm TP Q6H #1 gel..gram. 04/21/18 05/31/18 Rx ALBUTEROL NEB's [Proventil 0.083% 2.5 mg IH Q4HRT PRN nebu 05/19/18 05/31/18 Rx NEBS] ALPRAZolam [Xanax TAB] 0.5 mg PO Q12HR #20 tablet 05/19/18 05/31/18 Rx Aspirin EC [Aspirin Enteric Coated 81 mg PO QDAY tablet 05/19/18 05/31/18 Rx TAB] AtorvaSTATin [Lipitor] 40 mg PO QHS tablet 05/19/18 05/31/18 Rx Carvedilol [Coreg] 25 mg PO BID tablet 05/19/18 05/31/18 Rx Acetaminophen [Tylenol Arthritis] 650 mg PO Q6HR PRN #30 tablet.er 06/22/18 Unknown Rx Metoclopramide [Reglan] 10 mg PO QID PRN #15 tab 06/22/18 Unknown Rx Promethazine [Phenergan] 25 mg [place] Q6HR PRN #10 supp.rect 06/22/18 Unknown Rx levoFLOXacin [Levaquin] 250 mg PO Q48HR #3 tablet 06/22/18 Unknown Rx Oxycodone HCl/Acetaminophen 1 each PO Q6HR PRN #12 tablet 06/26/18 Unknown Rx [Percocet 7.5/325 mg] Allergies Allergy/AdvReac Type Severity Reaction Status Date / Time heparin Allergy lowers Verified 07/02/18 15:17 platelets ED Review of Systems ROS: Stated complaint: ABD/LEG PAIN Other details as noted in HPI ED Past Medical Hx - Past Medical History Previous Medical History?: Yes Hx Hypertension: Yes Hx Heart Attack/AMI: No Hx Congestive Heart Failure: Yes (4LPM at home) Hx Diabetes: No Hx Deep Vein Thrombosis: No Hx Pulmonary Embolism: No Hx GERD: Yes Hx Renal Disease: Yes (ESRD T-) Hx Arthritis: Yes (SPINE) Hx Asthma: No Hx COPD: No Hx Tuberculosis: No Hx Dementia: No Hx HIV: No Additional medical history: Hidradenitis, EJF 40%, enlarged heart - Surgical History Past Surgical History?: Yes Hx Pacemaker: No Hx Cholecystectomy: No Hx Appendectomy: No Hx Breast Surgery: No Additional Surgical History: PD CATHETER - AND REMOVAL. AV FISTULA. LYMPH NODES REMOVED LEFT GROIN. TONSILLECTOMY. Patient does have a history of peritonitis with previous PD - Social History Smoking Status: Former Smoker Substance Use Type: None - Medications Home Medications: Home Medications Medication Instructions Recorded Confirmed Last Taken Type AtorvaSTATin [Lipitor] 40 mg PO QHS #30 tab 03/27/18 06/01/18 05/31/18 Rx Esomeprazole Magnesium [Nexium] 40 mg PO DAILY #30 capsule. 03/27/18 06/01/18 05/31/18 Rx Folic Acid/Vit B Comp W-C [Renal 1 cap PO QDAY #60 capsule 03/27/18 06/01/18 05/31/18 Rx Caps] hydrALAZINE [Apresoline TAB] 100 mg PO TID #90 tab 03/27/18 06/01/18 05/31/18 Rx traZODone [Desyrel] 100 mg PO QHS #30 tablet 03/27/18 06/01/18 05/30/18 Rx NIFEdipine [Adalat cc] 90 mg PO BID 04/11/18 06/01/18 Unknown History Diclofenac Sodium [Voltaren] 100 gm TP Q6H #1 gel..gram. 0206/01/18 Rx ALBUTEROL NEB's [Proventil 0.083% 2.5 mg IH Q4HRT PRN nebu 05/19/18 06/01/18 05/31/18 Rx NEBS] ALPRAZolam [Xanax TAB] 0.5 mg PO Q12HR #20 tablet 05/19/18 06/01/18 05/31/18 Rx Aspirin EC [Aspirin Enteric Coated 81 mg PO QDAY tablet 05/19/18 06/01/18 05/31/18 Rx TAB] AtorvaSTATin [Lipitor] 40 mg PO QHS tablet 05/19/18 06/01/18 05/31/18 Rx Carvedilol [Coreg] 25 mg PO BID tablet 05/19/18 06/01/18 05/31/18 Rx Acetaminophen [Tylenol Arthritis] 650 mg PO Q6HR PRN #30 tablet.er 06/22/18 Unknown Rx Metoclopramide [Reglan] 10 mg PO QID PRN #15 tab 06/22/18 Unknown Rx Promethazine [Phenergan] 25 mg [place] Q6HR PRN #10 supp.rect 06/22/18 Unknown Rx levoFLOXacin [Levaquin] 250 mg PO Q48HR #3 tablet 06/22/18 Unknown Rx Oxycodone HCl/Acetaminophen 1 each PO Q6HR PRN #12 tablet 06/26/18 Unknown Rx [Percocet 7.5/325 mg] ED Physical Exam - General Limitations: No Limitations ED Course Vital Signs 07/04/18 10:41 Temperature 97.9 F Pulse Rate 96 H Respiratory 18 Rate Blood Pressure 147/81 O2 Sat by Pulse 94 Oximetry Critical care attestation.: If time is entered above; I have spent that time in minutes in the direct care of this critically ill patient, excluding procedure time. ED Disposition Condition: Stable Referrals: PRIMARY CARE,MD [Primary Care Provider] - 3-5 Days
--- NOTE | 2018-07-04 14:34 | Emergency Department Report ---
Chief Complaint: Abdominal Pain Stated Complaint: ABD/LEG PAIN - HPI History of Present Illness: This is a 28-year-old male who presents with abdominal pain and bilateral lower extremity pain. Patient states he was seen in the emergency room 2 days ago with similar symptoms but left prior to being seen. Patient states he was supposed to go to dialysis today but couldn't secondary pain. He reports nausea and vomiting for the past 2 days. Patient states the abdomen is larger than normal. - Exam Vital Signs: Vital Signs 07/04/18 10:41 Temperature 97.9 F Pulse Rate 96 H Respiratory 18 Rate Blood Pressure 147/81 O2 Sat by Pulse 94 Oximetry MSE screening note: Focused history and physical exam performed. Due to findings the following was ordered: Patient had labs and CXR ordered 2 days ago. Chest x-ray shows moderate bilateral pleural effusions with adjacent atelectasis versus pneumonia. Cardiomegaly unchanged. Labs were ordered. Patient will be sent to the main side for further evaluation. ED Disposition for MSE Condition: Stable Referrals: PRIMARY CARE [Primary Care Provider] - 3-5 Days
[2018-07-04 15:20] LABS: Albumin 3.5 g/dL (3.9-5); Calcium 8.3 mg/dL (8.4-10.2)
[2018-07-04 15:23] LABS: Basophils # (Auto) 0.1 K/mm3 (0.0-0.1); Basophils % (Auto) 1.7 % (0.0-1.8); Eosinophils # (Auto) 0.2 K/mm3 (0.0-0.4); Eosinophils % (Auto) 3.8 % (0.0-4.3); Hematocrit 30.3 % (35.5-45.6); Hemoglobin 9.5 gm/dl (11.8-15.2); Lymphocytes # (Auto) 1.1 K/mm3 (1.2-5.4); Lymphocytes % (Auto) 21.4 % (13.4-35.0); Mean Corpuscular HGB Conc 31 % (32-34); Mean Corpuscular Volume 85 fl (84-94); Monocytes # (Auto) 0.3 K/mm3 (0.0-0.8); Monocytes % (Auto) 6.4 % (0.0-7.3); Platelet Count 143 K/mm3 (140-440); Red Blood Count 3.56 M/mm3 (3.65-5.03)
[2018-07-04 15:25] LABS: Red Cell Distribution Width 22.1 % (13.2-15.2)
[2018-07-04] MEDS ORDERED: ZOFRAN IM ONE (17:47)
[2018-07-04] MEDS ORDERED: MORPHINE IM ONE (17:47)
--- NOTE | 2018-07-04 17:56 | Emergency Department Report ---
ED Abdominal Pain HPI - General Chief Complaint: Abdominal Pain Stated Complaint: ABD/LEG PAIN Time Seen by Provider: 07/04/18 17:27 Source: patient Mode of arrival: Ambulatory Limitations: No Limitations - History of Present Illness Initial Comments: Patient is 28 years old male with history of end-stage renal disease on hemodialysis. Patient last dialysis was Tuesday. Patient missed his dialysis today because of abdominal pain and leg pain. Patient stated that he's been having this problem for a while. Patient was seen here one week ago had a CT abdomen and pelvis which is unremarkable for acute finding except for ascites. She does not look toxic. She denied any fever, chills, nausea or vomiting. No diarrhea. MD Complaint: abdominal pain -: week(s) Location: diffuse Radiation: none Severity scale (0 -10): 9 - Related Data Home Medications Medication Instructions Recorded Confirmed Last Taken NIFEdipine [Adalat cc] 90 mg PO BID 04/11/18 06/01/18 Unknown Previous Rx's Medication Instructions Recorded Last Taken Type AtorvaSTATin [Lipitor] 40 mg PO QHS #30 tab 03/27/18 05/31/18 Rx Esomeprazole Magnesium [Nexium] 40 mg PO DAILY #30 capsule. 03/27/18 05/31/18 Rx Folic Acid/Vit B Comp W-C [Renal 1 cap PO QDAY #60 capsule 03/27/18 05/31/18 Rx Caps] hydrALAZINE [Apresoline TAB] 100 mg PO TID #90 tab 03/27/18 05/31/18 Rx traZODone [Desyrel] 100 mg PO QHS #30 tablet 03/27/18 05/30/18 Rx Diclofenac Sodium [Voltaren] 100 gm TP Q6H #1 gel..gram. 04/21/18 05/31/18 Rx ALBUTEROL NEB's [Proventil 0.083% 2.5 mg IH Q4HRT PRN nebu 05/19/18 05/31/18 Rx NEBS] ALPRAZolam [Xanax TAB] 0.5 mg PO Q12HR #20 tablet 05/19/18 05/31/18 Rx Aspirin EC [Aspirin Enteric Coated 81 mg PO QDAY tablet 05/19/18 05/31/18 Rx TAB] AtorvaSTATin [Lipitor] 40 mg PO QHS tablet 05/19/18 05/31/18 Rx Carvedilol [Coreg] 25 mg PO BID tablet 05/19/18 05/31/18 Rx Acetaminophen [Tylenol Arthritis] 650 mg PO Q6HR PRN #30 tablet.er 06/22/18 Unknown Rx Metoclopramide [Reglan] 10 mg PO QID PRN #15 tab 06/22/18 Unknown Rx Promethazine [Phenergan] 25 mg [place] Q6HR PRN #10 supp.rect 06/22/18 Unknown Rx levoFLOXacin [Levaquin] 250 mg PO Q48HR #3 tablet 06/22/18 Unknown Rx Oxycodone HCl/Acetaminophen 1 each PO Q6HR PRN #12 tablet 06/26/18 Unknown Rx [Percocet 7.5/325 mg] Allergies Allergy/AdvReac Type Severity Reaction Status Date / Time heparin Allergy lowers Verified 07/02/18 15:17 platelets ED Review of Systems ROS: Stated complaint: ABD/LEG PAIN Other details as noted in HPI Comment: All other systems reviewed and negative Constitutional: denies: chills, fever Respiratory: denies: cough, orthopnea Cardiovascular: denies: chest pain, palpitations Gastrointestinal: abdominal pain. denies: nausea, vomiting, diarrhea, constipation, hematemesis, melena, hematochezia Musculoskeletal: denies: back pain Neurological: denies: headache ED Past Medical Hx - Past Medical History Previous Medical History?: Yes Hx Hypertension: Yes Hx Heart Attack/AMI: No Hx Congestive Heart Failure: Yes (4LPM at home) Hx Diabetes: No Hx Deep Vein Thrombosis: No Hx Pulmonary Embolism: No Hx GERD: Yes Hx Renal Disease: Yes (ESRD ) Hx Arthritis: Yes (SPINE) Hx Asthma: No Hx COPD: No Hx Tuberculosis: No Hx Dementia: No Hx HIV: No Additional medical history: Hidradenitis, EJF 40%, enlarged heart - Surgical History Past Surgical History?: Yes Hx Pacemaker: No Hx Cholecystectomy: No Hx Appendectomy: No Hx Breast Surgery: No Additional Surgical History: PD CATHETER - AND REMOVAL. AV FISTULA. LYMPH NODES REMOVED LEFT GROIN. TONSILLECTOMY. Patient does have a history of peritonitis with previous PD - Social History Smoking Status: Former Smoker Substance Use Type: None - Medications Home Medications: Home Medications Medication Instructions Recorded Confirmed Last Taken Type AtorvaSTATin [Lipitor] 40 mg PO QHS #30 tab 03/27/18 06/01/18 05/31/18 Rx Esomeprazole Magnesium [Nexium] 40 mg PO DAILY #30 capsule. 03/27/18 06/01/18 05/31/18 Rx Folic Acid/Vit B Comp W-C [Renal 1 cap PO QDAY #60 capsule 03/27/18 06/01/18 05/31/18 Rx Caps] hydrALAZINE [Apresoline TAB] 100 mg PO TID #90 tab 03/27/18 06/01/18 05/31/18 Rx traZODone [Desyrel] 100 mg PO QHS #30 tablet 03/27/18 06/01/18 05/30/18 Rx NIFEdipine [Adalat cc] 90 mg PO BID 04/11/18 06/01/18 Unknown History Diclofenac Sodium [Voltaren] 100 gm TP Q6H #1 gel..gram. 04/21/18 06/01/18 05/31/18 Rx ALBUTEROL NEB's [Proventil 0.083% 2.5 mg IH Q4HRT PRN nebu 05/19/18 06/01/18 05/31/18 Rx NEBS] ALPRAZolam [Xanax TAB] 0.5 mg PO Q12HR #20 tablet 05/19/18 06/01/18 05/31/18 Rx Aspirin EC [Aspirin Enteric Coated 81 mg PO QDAY tablet 05/19/18 06/01/18 05/31/18 Rx TAB] AtorvaSTATin [Lipitor] 40 mg PO QHS tablet 05/19/18 06/01/18 05/31/18 Rx Carvedilol [Coreg] 25 mg PO BID tablet 05/19/18 06/01/18 05/31/18 Rx Acetaminophen [Tylenol Arthritis] 650 mg PO Q6HR PRN #30 tablet.er 06/22/18 Unknown Rx Metoclopramide [Reglan] 10 mg PO QID PRN #15 tab 06/22/18 Unknown Rx Promethazine [Phenergan] 25 mg [place] Q6HR PRN #10 supp.rect 06/22/18 Unknown Rx levoFLOXacin [Levaquin] 250 mg PO Q48HR #3 tablet 06/22/18 Unknown Rx Oxycodone HCl/Acetaminophen 1 each PO Q6HR PRN #12 tablet 06/26/18 Unknown Rx [Percocet 7.5/325 mg] ED Physical Exam - General Limitations: No Limitations General appearance: alert, in no apparent distress - Head Head exam: Present: atraumatic, normocephalic, normal inspection - Eye Eye exam: Present: normal appearance, PERRL - ENT ENT exam: Present: normal exam, normal orophraynx, mucous membranes moist - Neck Neck exam: Present: normal inspection, full ROM. Absent: tenderness, meningismus, lymphadenopathy, thyromegaly - Respiratory Respiratory exam: Present: normal lung sounds bilaterally - Cardiovascular Cardiovascular Exam: Present: regular rate, normal rhythm, normal heart sounds - GI/Abdominal GI/Abdominal exam: Present: soft, distended, normal bowel sounds. Absent: tenderness, guarding, rebound, rigid, organomegaly, mass, bruit, pulsatile mass - Extremities Exam Extremities exam: Present: normal inspection, full ROM, normal capillary refill - Back Exam Back exam: Present: normal inspection - Neurological Exam Neurological exam: Present: alert, oriented X3, CN II-XII intact, normal gait, reflexes normal - Skin Skin exam: Present: warm, intact, normal color ED Course Vital Signs 07/04/18 07/04/18 10:41 17:11 Temperature 97.9 F Pulse Rate 96 H Respiratory 18 22 Rate Blood Pressure 147/81 O2 Sat by Pulse 94 Oximetry ED Medical Decision Making - Lab Data Result diagrams: 07/04/18 14:46 07/04/18 14:46 - Radiology Data Radiology results: report reviewed - Medical Decision Making Patient is 28 years old male with history of end-stage renal disease on hemodialysis. Patient last dialysis was Tuesday. Patient missed his dialysis today because of abdominal pain and leg pain. Patient stated that he's been having this problem for a while. Patient was seen here one week ago had a CT abdomen and pelvis which is unremarkable for acute finding except for ascites. She does not look toxic. She denied any fever, chills, nausea or vomiting. No diarrhea. Patient potassium is 5.5. I discussed the patient is Dr. Tan. She advised to admit the patient to hospitalist for emergency dialysis. I discussed the patient with Dr. Venegas, he agreed to admit the patient to medical service. Critical Care Time: Yes Critical care time in (mins) excluding proc time.: 30 Critical care attestation.: If time is entered above; I have spent that time in minutes in the direct care of this critically ill patient, excluding procedure time. ED Disposition Clinical Impression: Abdominal pain, End-stage renal disease on hemodialysis, Hyperkalemia Disposition: OP ADMIT IP TO THIS HOSP Is pt being admited?: Yes Condition: Stable Referrals: PRIMARY CARE, [Primary Care Provider] - 3-5 Days
[2018-07-04] MEDS ORDERED: PROCRIT IV PRN (17:57)
[2018-07-04] MEDS ORDERED: NACL 0.9% 100 ML IV PRN (17:57)
--- NOTE | 2018-07-04 20:22 | XRay Report ---
PROCEDURE: XR ABD SERIES W CXR 1V TECHNIQUE: Abdominal series complete, including supine and upright AP views of the abdomen and front al chest. HISTORY: abdominal pain COMPARISONS: Chest radiograph 06/26/2018 . FINDINGS: Heart: Prominent heart size. Mediastinum/Vessels: Prominent central vessels. Lungs/Pleural space: Bilateral pulmonary airspace opacities and large pleural effusions, mildly incr eased compared to the prior study. Bowel gas pattern: Bowel gas pattern is nonobstructive. There is moderate to large volume of stool i n the colon . Masses or calcifications: None . Bony structures: No acute osseous abnormality . Other: No free intraperitoneal air . IMPRESSION: Nonobstructive bowel gas pattern. There is moderate to large volume of stool in the colon. Prominent cardiac silhouette with bilateral pulmonary airspace opacities and pleural effusions, which may be related to congestive heart failure. Correlate for superimposed infectious process This document is electronically signed by Shazia Sherman MD., July 04 2018 08:20:12 PM ET
--- NOTE | 2018-07-05 02:48 | Event Note ---
Date: 07/04/18 See H/p in reports Volume overload Guilherme keg pain JENNIFER Rec Abd pain-w/u negative
[2018-07-05] MEDS ORDERED: REGLAN PO PRN (02:55)
[2018-07-05] MEDS ORDERED: TYLENOL PO PRN ×2 (02:55→02:58)
[2018-07-05] MEDS ORDERED: PROVENTIL IH PRN (02:55)
[2018-07-05] MEDS ORDERED: PHENERGAN PR PRN (02:55)
[2018-07-05] MEDS ORDERED: SODIUM CHLORIDE FLUSH SYRINGE 10 ML IV PRN (02:58)
[2018-07-05] MEDS ORDERED: ZOFRAN IV PRN (02:58)
[2018-07-05] MEDS ORDERED: HEPARIN SUB-Q SCH (03:00)
[2018-07-05] MEDS: PERCOCET 5/325 PO PRN (03:35)
--- NOTE | 2018-07-05 03:36 | History and Physical Report ---
CHIEF COMPLAINT: Abdominal pain. HISTORY OF PRESENT ILLNESS: A 28-year-old male well known to our hospitalist service, comes in for recurrent abdominal pain. The patient has been coming in for abdominal pain on recurrent basis. Workup until now has been negative except for mild ascites. Slightly short of breath because of missed dialysis. Otherwise, no chest pain. Orthopnea present. Also, complains of bilateral lower extremity swelling. PAST MEDICAL HISTORY: Significant for hypertension, end-stage renal disease, hyperlipidemia, recurrent abdominal pain, generalized anxiety disorder. PAST SURGICAL HISTORY: Significant for PD catheter and removal, AV fistula, lymph node removal in the left groin, tonsillectomy. SOCIAL HISTORY: Former smoker, does not smoke anymore. FAMILY HISTORY: Hypertension. REVIEW OF SYSTEMS: Significant for recurrent abdominal pain and bilateral lower extremity swelling. Otherwise, review of systems negative. PHYSICAL EXAMINATION: GENERAL: Young male, cooperative during examination. VITAL SIGNS: Blood pressure 180/92, temperature 98.2, pulse 71, respirations 18. HEENT: Unremarkable. Pupils equal and reactive. NECK: Supple, no lymphadenopathy, no thyromegaly. LUNGS: Clear to auscultation and percussion. Good air entry. CARDIOVASCULAR: S1, S2 heard. No gallop, no murmur, no rub. Apical impulse in left fifth intercostal space and midclavicular line. ABDOMEN: Soft and benign. No hepatosplenomegaly. No guarding, no rigidity. Hernial orifices are normal. EXTREMITIES: Good pedal pulses. No pedal edema. CENTRAL NERVOUS SYSTEM: Alert and oriented x 4, nonfocal exam. SKIN: Normal. LABORATORY DATA: Significant for hemoglobin of 9.5, hematocrit of 30.3, MCH and MCV are low. Potassium was 5.5, BUN and creatinine is 56 and 7.3, albumin is 3.5. Chest and abdominal x-ray shows nonobstructive bowel gas pattern. Large amount of stool. Prominent cardiac silhouette. Bilateral pulmonary airspace opacities and pleural effusions. ASSESSMENT AND PLAN: 1. Volume overload secondary to end-stage renal disease and missed dialysis. The patient taken for emergent hemodialysis. 2. Hyperkalemia. Correct with hemodialysis. Also, the patient given calcium gluconate. 3. Anemia. The patient given Epogen. 4. Hypertension. Continue antihypertensives. 5. Abdominal pain, nonspecific. The patient complains of abdominal pain for narcotic-seeking behavior. 6. Generalized anxiety disorder. Continue Xanax q. 12h. 7. Hyperlipidemia. Continue statins. 8. Gastroesophageal reflux disease. Continue esomeprazole. 9. Bilateral lower extremity swelling. Get Duplex scan to rule out DVT. 10. Deep venous thrombosis prophylaxis, heparin 5000 q. 12h. Probable discharge tomorrow if the DVTs duplex scans are negative. The patient has narcotic seeking behavior. JOB# [id number] VSM/NTS
[2018-07-05] MEDS: ROXICODONE PO PRN (03:37)
[2018-07-05] MEDS: PROCARDIA XL PO SCH ×3 (03:38→21:50)
[2018-07-05] MEDS: DICLOFENAC 1% TP SCH ×4 (05:29→22:27)
[2018-07-05] MEDS: APRESOLINE PO SCH ×3 (08:20→21:50)
[2018-07-05] MEDS: DILAUDID IV PRN ×5 (08:20→22:28)
[2018-07-05] MEDS ORDERED: LEVAQUIN PO SCH (10:00)
[2018-07-05] MEDS: Renal Caps PO SCH (10:49)
[2018-07-05] MEDS: COREG PO SCH ×2 (10:49→21:50)
[2018-07-05] MEDS: XANAX PO SCH ×2 (10:49→21:50)
[2018-07-05] MEDS: PROTONIX PO SCH (10:49)
[2018-07-05] MEDS: HALFPRIN EC PO SCH (10:49)
[2018-07-05] MEDS: SODIUM CHLORIDE FLUSH SYRINGE 10 ML IV SCH ×3 (10:50→22:32)
--- NOTE | 2018-07-05 13:31 | Vascular Lab Report ---
PROCEDURE: VL VENOUS DUPLEX LE BILAT TECHNIQUE: Duplex Doppler ultrasound examination of the venous system of the right leg and left leg HISTORY: bilateral Leg swelling COMPARISONS: None FINDINGS: RIGHT LEG: Normal compressibility, vascular patency, and augmentation are present diffusely throughout the visua lized portion of the deep veins. No abnormal intraluminal echoes are visualized to suggest deep vein thrombus. IMPRESSION: No ultrasound evidence of DVT in the right leg LEFT LEG: Normal compressibility, vascular patency, and augmentation are present diffusely throughout the visua lized portion of the deep veins. No abnormal intraluminal echoes are visualized to suggest deep vein thrombus. Prominent nonspecific lymph node in left inguinal fossa measuring 12 x 24 mm. IMPRESSION: No ultrasound evidence of DVT in the left leg This document is electronically signed by Robbi Bradshaw MD., July 05 2018 01:29:21 PM ET
--- NOTE | 2018-07-05 17:05 | Consultation ---
History of Present Illness - Reason for Consult end stage renal disease - History of Present Illness Chief complaint missed dialysis lower extremity weakness 28-year-old gentleman with medical history significant for hypertension, congestive heart failure with reduced systolic function, end-stage renal disease admitted with complaints of bilateral lower extremity weakness currently on hemodialysis Tuesday at [facility] present by a left arm AV fistula he complains weakness in his legs which has been getting worse he also complains of pain and discomfort he denies any shortness of breath orthopnea or PND Medications and Allergies Allergies Allergy/AdvReac Type Severity Reaction Status Date / Time heparin Allergy lowers Verified 07/02/18 15:17 platelets Home Medications Medication Instructions Recorded Confirmed Last Taken Type AtorvaSTATin [Lipitor] 40 mg PO QHS #30 tab 03/27/18 06/01/18 05/31/18 Rx Esomeprazole Magnesium [Nexium] 40 mg PO DAILY #30 capsule. 03/27/18 06/01/18 07/03/18 20:00 Rx Folic Acid/Vit B Comp W-C [Renal 1 cap PO QDAY #60 capsule 03/27/18 06/01/18 07/03/18 08:00 Rx Caps] hydrALAZINE [Apresoline TAB] 100 mg PO TID #90 tab 03/27/18 06/01/18 07/03/18 20:00 Rx traZODone [Desyrel] 100 mg PO QHS #30 tablet 03/27/18 06/01/18 07/03/18 20:00 Rx NIFEdipine [Adalat cc] 90 mg PO BID 04/11/18 06/01/18 07/03/18 20:00 History Diclofenac Sodium [Voltaren] 100 gm TP Q6H #1 gel..gram. 04/21/18 06/01/18 05/31/18 Rx ALBUTEROL NEB's [Proventil 0.083% 2.5 mg IH Q4HRT PRN nebu 05/19/18 06/01/18 07/03/18 20:00 Rx NEBS] ALPRAZolam [Xanax TAB] 0.5 mg PO Q12HR #20 tablet 05/19/18 06/01/18 07/03/18 20:00 Rx Aspirin EC [Aspirin Enteric Coated 81 mg PO QDAY tablet 05/19/18 06/01/18 05/31/18 Rx TAB] AtorvaSTATin [Lipitor] 40 mg PO QHS tablet 05/19/18 06/01/18 07/03/18 20:00 Rx Carvedilol [Coreg] 25 mg PO BID tablet 05/19/18 06/01/18 07/03/18 20:00 Rx Acetaminophen [Tylenol Arthritis] 650 mg PO Q6HR PRN #30 tablet.er 06/22/18 Unknown Rx Metoclopramide [Reglan] 10 mg PO QID PRN #15 tab 06/22/18 Unknown Rx Promethazine [Phenergan] 25 mg RI Q6HR PRN #10 supp.rect 06/22/18 07/03/18 20:00 Rx levoFLOXacin [Levaquin] 250 mg PO Q48HR #3 tablet 06/22/18 Unknown Rx Oxycodone HCl/Acetaminophen 1 each PO Q6HR PRN #12 tablet 06/26/18 Unknown Rx [Percocet 7.5/325 mg] Active Meds: Active Medications Acetaminophen (Tylenol) 650 mg PO Q4H PRN PRN Reason: Pain MILD(1-3)/Fever >100.5/JENKINS Albuterol (Proventil) 2.5 mg IH Q4HRT PRN PRN Reason: Shortness Of Breath Alprazolam (Xanax) 0.5 mg PO Q12HR [facility] Last Admin: 07/05/18 10:49 Dose: 0.5 mg Documented by: Aspirin (Halfprin Ec) 81 mg PO QDAY [facility] Last Admin: 07/05/18 10:49 Dose: 81 mg Documented by: Atorvastatin Calcium (Lipitor) 40 mg PO QHS [facility] Carvedilol (Coreg) 25 mg PO BID [facility] Last Admin: 07/05/18 10:49 Dose: 25 mg Documented by: Epoetin Davis (Procrit) 10,000 unit IV APRIL PRN PRN Reason: hemodialysis Heparin Sodium (Porcine) (Heparin) 5,000 unit SUB-Q Q12HR [facility] Hydralazine HCl (Apresoline) 100 mg PO TID [facility] Last Admin: 07/05/18 14:40 Dose: 100 mg Documented by: Hydromorphone HCl (Dilaudid) 0.5 mg IV Q3H PRN PRN Reason: Pain , Severe (7-10) Last Admin: 07/05/18 14:44 Dose: 0.5 mg Documented by: Sodium Chloride (Nacl 0.9%) 100 mls @ 999 mls/hr IV APRIL PRN PRN Reason: Hypotension Metoclopramide HCl (Reglan) 5 mg PO QID PRN PRN Reason: Nausea Last Admin: 07/05/18 10:58 Dose: 5 mg Documented by: Multivit/Ca Carb/B Cmplx/FA/Prenat (Renal Caps) 1 cap PO QDAY [facility] Last Admin: 07/05/18 10:49 Dose: 1 cap Documented by: Nifedipine (Procardia Xl) 90 mg PO BID [facility] Last Admin: 07/05/18 10:49 Dose: 90 mg Documented by: Ondansetron HCl (Zofran) 4 mg IV Q8H PRN PRN Reason: Nausea And Vomiting Last Admin: 07/05/18 14:40 Dose: 4 mg Documented by: Oxycodone HCl (Roxicodone) 2.5 mg PO Q6H PRN PRN Reason: Pain, Moderate (4-6) Last Admin: 07/05/18 03:37 Dose: 2.5 mg Documented by: Oxycodone/Acetaminophen (Percocet 5/325) 1 tab PO Q6H PRN PRN Reason: Pain (4-6) Last Admin: 07/05/18 03:35 Dose: 1 tab Documented by: Pantoprazole Sodium (Protonix) 40 mg PO DAILY [facility] Last Admin: 07/05/18 10:49 Dose: 40 mg Documented by: Promethazine HCl (Phenergan) 25 mg RI Q6H PRN PRN Reason: Nausea Sodium Chloride (Sodium Chloride Flush Syringe 10 Ml) 10 ml IV BID [facility] Last Admin: 07/05/18 10:50 Dose: 10 ml Documented by: Sodium Chloride (Sodium Chloride Flush Syringe 10 Ml) 10 ml IV PRN PRN PRN Reason: LINE FLUSH Trazodone HCl (Desyrel) 100 mg PO QHS [facility] Review of Systems Constitutional: fatigue, weakness Ears, nose, mouth and throat: no deferred, no ear pain, no sinus pain Cardiovascular: no orthopnea Respiratory: no cough, no cough with sputum Gastrointestinal: no abdominal pain, no nausea, no vomiting Genitourinary Male: no dysuria, no hematuria Rectal: no pain, no incontinence Musculoskeletal: no neck stiffness, no neck pain Integumentary: no deferred, no rash Neurological: no head injury, no transient paralysis Psychiatric: no anxiety, no memory loss Endocrine: no cold intolerance, no heat intolerance Hematologic/Lymphatic: no easy bruising, no easy bleeding Allergic/Immunologic: no urticaria, no allergic rhinitis Exam - Vital Signs Vital signs: Vital Signs Temp Pulse Resp BP Pulse Ox 97.9 F 96 H 18 147/81 94 07/04/18 10:41 07/04/18 10:41 07/04/18 10:41 07/04/18 10:41 07/04/18 10:41 - General Appearance General appearance: well-developed, well-nourished EENT: ATNC, PERRL Neck: Present: neck supple Respiratory: Clear to Ascultation Heart: regular, S1S2 Gastrointestinal: Present: normal, normoactive bowel sounds Integumentary: no rash Neurologic: no focal deficit, CN 3-12 intact Psychiatric: mood/affect appropriate Results - Lab Results 07/04/18 14:46 07/04/18 14:46 Most recent lab results Calcium 8.3 mg/dL (8.4-10.2) L 07/04/18 14:46 - Image Kidney/bladder ultrasound: other Assessment and Plan - Patient Problems (1) End-stage renal disease on hemodialysis Current Visit: Yes Status: Acute Plan to address problem: End-stage renal disease Dialysis access left arm AV fistula Continue hemodialysis Tuesday (2) Anemia Current Visit: No Status: Acute Qualifiers: Anemia type: due to chronic kidney disease Chronic kidney disease stage: on chronic dialysis Qualified Code(s): N18.6 - End stage renal disease; D63.1 - Anemia in chronic kidney disease; Z99.2 - Dependence on renal dialysis Plan to address problem: Moderate anemia Hemoglobin: 9.5 g /DL Etiology secondary to chronic Kidney Disease Monitor CBC (3) HTN (hypertension) Current Visit: No Status: Chronic Qualifiers: Hypertension type: essential hypertension Qualified Code(s): I10 - Essential (primary) hypertension Plan to address problem: Hypertension controlled continue current medications (4) Lower extremity weakness Current Visit: Yes Status: Acute Plan to address problem: Lower extremity weakness Workup ongoing by primary team
--- NOTE | 2018-07-05 18:44 | Progress Note ---
Assessment and Plan Assessment and plan: --End-stage renal disease on hemodialysis; Patient per schedule, nephrology following --Hyperkalemia: Corrected --Hypertension; moderate control Continue current antihypertensives and when necessary medications --Generalized weakness; cachexia Nutritional supplement supportive care Physical therapy as needed --Anemia off chronic kidney disease; Procrit during dialysis, closely monitor --DVT prophylaxis; heparin loading dose Closely monitor, possibly discharge home in 1-2 days if stable History Interval history: Patient seen and examined medical records reviewed Patient is in hemodialysis yesterday. Patient feels better Vital signs noted Hospitalist Physical - Constitutional Vitals: Temp Pulse Resp BP Pulse Ox 97.3 F L 79 18 132/72 95 07/05/18 17:01 07/05/18 17:01 07/05/18 17:01 07/05/18 17:01 07/05/18 17:01 General appearance: Present: no acute distress, well-nourished - EENT Eyes: Present: PERRL, EOM intact - Neck Neck: Present: supple, normal ROM - Respiratory Respiratory effort: normal Respiratory: bilateral: diminished, negative: rales, rhonchi, wheezing - Cardiovascular Rhythm: regular Heart Sounds: Present: S1 & S2 - Extremities Extremities: no ischemia, No edema - Abdominal General gastrointestinal: soft, non-tender, non-distended, normal bowel sounds - Integumentary Integumentary: Present: clear, warm - Psychiatric Psychiatric: appropriate mood/affect, cooperative - Neurologic Neurologic: CNII-XII intact, moves all extremities Results - Labs CBC & Chem 7: 07/04/18 14:46 07/04/18 14:46 Labs: Laboratory Last Values WBC 5.3 K/mm3 (4.5-11.0) 07/04/18 14:46 RBC 3.56 M/mm3 (3.65-5.03) L 07/04/18 14:46 Hgb 9.5 gm/dl (11.8-15.2) L 07/04/18 14:46 Hct 30.3 % (35.5-45.6) L 07/04/18 14:46 MCV 85 fl (84-94) 07/04/18 14:46 MCH 27 pg (28-32) L 07/04/18 14:46 MCHC 31 % (32-34) L 07/04/18 14:46 RDW 22.1 % (13.2-15.2) H 07/04/18 14:46 Plt Count 143 K/mm3 (140-440) 07/04/18 14:46 Lymph % (Auto) 21.4 % (13.4-35.0) 07/04/18 14:46 [place] % (Auto) 6.4 % (0.0-7.3) 07/04/18 14:46 Eos % (Auto) 3.8 % (0.0-4.3) 07/04/18 14:46 Baso % (Auto) 1.7 % (0.0-1.8) 07/04/18 14:46 Lymph # 1.1 K/mm3 (1.2-5.4) L 07/04/18 14:46 Hamilton # 0.3 K/mm3 (0.0-0.8) 07/04/18 14:46 Eos # 0.2 K/mm3 (0.0-0.4) 07/04/18 14:46 Baso # 0.1 K/mm3 (0.0-0.1) 07/04/18 14:46 Seg Neutrophils % 66.7 % (40.0-70.0) 07/04/18 14:46 Seg Neutrophils # 3.5 K/mm3 (1.8-7.7) 07/04/18 14:46 Sodium 143 mmol/L (137-145) 07/04/18 14:46 Potassium 5.5 mmol/L (3.6-5.0) H 07/04/18 14:46 Chloride 98.8 mmol/L (98-107) 07/04/18 14:46 Carbon Dioxide 26 mmol/L (22-30) 07/04/18 14:46 Anion Gap 24 mmol/L 07/04/18 14:46 BUN 56 mg/dL (9-20) H 07/04/18 14:46 Creatinine 7.3 mg/dL (0.8-1.5) H 07/04/18 14:46 Estimated GFR 9 ml/min 07/04/18 14:46 BUN/Creatinine Ratio 8 % 07/04/18 14:46 Glucose 74 mg/dL (75-100) L 07/04/18 14:46 Calcium 8.3 mg/dL (8.4-10.2) L 07/04/18 14:46 Total Bilirubin 0.50 mg/dL (0.1-1.2) 07/04/18 14:46 AST 21 units/L (5-40) 07/04/18 14:46 ALT 13 units/L (7-56) 07/04/18 14:46 Alkaline Phosphatase 105 units/L (35-129) 07/04/18 14:46 Total Protein 8.6 g/dL (6.3-8.2) H 07/04/18 14:46 Albumin 3.5 g/dL (3.9-5) L 07/04/18 14:46 Albumin/Globulin Ratio 0.7 % 07/04/18 14:46 Lipase 26 units/L (13-60) 07/04/18 14:46 Active Medications - Current Medications Current Medications: Generic Name Dose Route Start Last Admin Trade Name Freq PRN Reason Stop Dose Admin Acetaminophen 650 mg 07/05/18 02:58 Tylenol PO Q4H PRN Pain MILD(1-3)/Fever >100.5/JENKINS Albuterol 2.5 mg 07/05/18 02:55 Proventil IH Q4HRT PRN Shortness Of Breath Alprazolam 0.5 mg 07/05/18 10:00 07/05/18 10:49 Xanax PO 0.5 mg Q12HR [facility] Administration Aspirin 81 mg 07/05/18 10:00 07/05/18 10:49 Halfprin Ec PO 81 mg QDAY [facility] Administration Atorvastatin Calcium 40 mg 07/05/18 22:00 Lipitor PO QHS [facility] Carvedilol 25 mg 07/05/18 10:00 07/05/18 10:49 Coreg PO 25 mg BID [facility] Administration Epoetin Davis 10,000 unit 07/04/18 17:57 Procrit IV APRIL PRN hemodialysis Heparin Sodium (Porcine) 5,000 unit 07/05/18 03:00 Heparin SUB-Q Q12HR [facility] Hydralazine HCl 100 mg 07/05/18 08:00 07/05/18 14:40 Apresoline PO 100 mg TID [facility] Administration Hydromorphone HCl 0.5 mg 07/05/18 02:58 07/05/18 18:02 Dilaudid IV 0.5 mg Q3H PRN Administration Pain , Severe (7-10) Sodium Chloride 100 mls @ 999 mls/hr 07/04/18 17:57 Nacl 0.9% IV APRIL PRN Hypotension Metoclopramide HCl 5 mg 07/05/18 02:55 07/05/18 10:58 Reglan PO 5 mg QID PRN Administration Nausea Multivit/Ca Carb/B Cmplx/FA/Prenat 1 cap 07/05/18 10:00 07/05/18 10:49 Renal Caps PO 1 cap QDAY [facility] Administration Nifedipine 90 mg 07/05/18 03:00 07/05/18 10:49 Procardia Xl PO 90 mg BID [facility] Administration Ondansetron HCl 4 mg 07/05/18 02:58 07/05/18 14:40 Zofran IV 4 mg Q8H PRN Administration Nausea And Vomiting Oxycodone HCl 2.5 mg 07/05/18 03:12 07/05/18 03:37 Roxicodone PO 2.5 mg Q6H PRN Administration Pain, Moderate (4-6) Oxycodone/Acetaminophen 1 tab 07/05/18 02:55 07/05/18 03:35 Percocet 5/325 PO 1 tab Q6H PRN Administration Pain (4-6) Pantoprazole Sodium 40 mg 07/05/18 10:00 07/05/18 10:49 Protonix PO 40 mg DAILY [facility] Administration Promethazine HCl 25 mg 07/05/18 02:55 Phenergan IA Q6H PRN Nausea Sodium Chloride 10 ml 07/05/18 10:00 07/05/18 10:50 Sodium Chloride Flush Syringe 10 Ml IV 10 ml BID [facility] Administration Sodium Chloride 10 ml 07/05/18 02:58 Sodium Chloride Flush Syringe 10 Ml IV PRN PRN LINE FLUSH Trazodone HCl 100 mg 07/05/18 22:00 Desyrel PO QHS [facility]
[2018-07-05] MEDS: DESYREL PO SCH (21:51)
[2018-07-06] MEDS: DICLOFENAC 1% TP SCH ×4 (03:56→23:00)
[2018-07-06] MEDS: DILAUDID IV PRN ×4 (03:56→20:21)
[2018-07-06 06:50] LABS: Albumin 3.1 g/dL (3.9-5); Calcium 8.2 mg/dL (8.4-10.2)
[2018-07-06 07:04] LABS: Basophils # (Auto) 0.1 K/mm3 (0.0-0.1); Basophils % (Auto) 1.3 % (0.0-1.8); Eosinophils # (Auto) 0.3 K/mm3 (0.0-0.4); Hematocrit 26.2 % (35.5-45.6); Hemoglobin 8.3 gm/dl (11.8-15.2); Lymphocytes # (Auto) 1.3 K/mm3 (1.2-5.4); Lymphocytes % (Auto) 19.9 % (13.4-35.0); Mean Corpuscular HGB Conc 32 % (32-34); Mean Corpuscular Volume 85 fl (84-94); Monocytes # (Auto) 0.4 K/mm3 (0.0-0.8); Monocytes % (Auto) 6.2 % (0.0-7.3); Platelet Count 154 K/mm3 (140-440)
[2018-07-06 07:21] LABS: Red Cell Distribution Width 21.7 % (13.2-15.2)
[2018-07-06] MEDS: APRESOLINE PO SCH ×3 (08:00→20:25)
[2018-07-06] MEDS: SODIUM CHLORIDE FLUSH SYRINGE 10 ML IV SCH ×2 (09:14→21:39)
[2018-07-06] MEDS: Renal Caps PO SCH (09:14)
[2018-07-06] MEDS: PROTONIX PO SCH (09:14)
[2018-07-06] MEDS: XANAX PO SCH ×2 (09:14→21:38)
[2018-07-06] MEDS: HALFPRIN EC PO SCH (09:14)
--- NOTE | 2018-07-06 10:40 | Progress Note ---
Assessment and Plan - Patient Problems (1) End-stage renal disease on hemodialysis Current Visit: Yes Status: Acute Plan to address problem: End-stage renal disease Dialysis access left arm AV fistula Continue hemodialysis Tuesday (2) Anemia Current Visit: No Status: Acute Qualifiers: Anemia type: due to chronic kidney disease Chronic kidney disease stage: on chronic dialysis Qualified Code(s): N18.6 - End stage renal disease; D63.1 - Anemia in chronic kidney disease; Z99.2 - Dependence on renal dialysis Plan to address problem: Moderate anemia Hemoglobin: 9.5 g /DL Etiology secondary to chronic Kidney Disease Monitor CBC (3) HTN (hypertension) Current Visit: No Status: Chronic Qualifiers: Hypertension type: essential hypertension Qualified Code(s): I10 - Essential (primary) hypertension Plan to address problem: Hypertension controlled continue current medications (4) Lower extremity weakness Current Visit: Yes Status: Acute Plan to address problem: Lower extremity weakness Workup ongoing by primary team Subjective Interval history: 28-year-old gentleman with medical history significant for hypertension, congestive heart failure with reduced systolic function, end-stage renal disease admitted with complaints of bilateral lower extremity weakness currently on hemodialysis Tuesday at the [facility] present by a left arm AV fistula I attest I saw the patient on hemodialysis reports lower extremity weakness is better UF : 3.5L denies any fever chills or shortness of breath. Objective - Vital Signs Vital signs: Vital Signs - 12hr 07/05/18 07/05/18 07/06/18 22:58 23:39 03:56 Temperature 98.0 F Pulse Rate 85 Respiratory 18 18 18 Rate Blood Pressure 133/79 O2 Sat by Pulse 93 Oximetry 07/06/18 07/06/18 04:26 05:09 Temperature 98.0 F Pulse Rate 70 Respiratory 18 16 Rate Blood Pressure 112/63 O2 Sat by Pulse 92 Oximetry - General Appearance General appearance: well-developed, well-nourished EENT: ATNC, PERRL Neck: no JVD Respiratory: Present: Decreased Breath Sounds Cardiology: regular, S1S2 Gastrointestinal: normal, normoactive bowel sounds Integumentary: no rash Neurologic: alert and oriented x3, CN 3-12 intact Psychiatric: mood/affect appropriate - Lab 07/06/18 06:02 07/06/18 06:02 Most recent lab results Calcium 8.2 mg/dL (8.4-10.2) L 07/06/18 06:02 - Imaging Chest x-ray: image reviewed Medications & Allergies - Medications Allergies/Adverse Reactions: Allergies heparin Allergy (Verified 07/02/18 15:17) lowers platelets Home Medications: Home Medications Medication Instructions Recorded Confirmed Last Taken Type AtorvaSTATin [Lipitor] 40 mg PO QHS #30 tab 03/27/18 07/05/18 05/31/18 Rx Esomeprazole Magnesium [Nexium] 40 mg PO DAILY #30 capsule. 03/27/18 07/05/18 07/03/18 20:00 Rx Folic Acid/Vit B Comp W-C [Renal 1 cap PO QDAY #60 capsule 03/27/18 07/05/18 07/03/18 08:00 Rx Caps] hydrALAZINE [Apresoline TAB] 100 mg PO TID #90 tab 03/27/18 07/05/18 07/03/18 20:00 Rx traZODone [Desyrel] 100 mg PO QHS #30 tablet 03/27/18 07/05/18 05/30/18 Rx NIFEdipine [Adalat cc] 90 mg PO BID 04/11/18 07/05/18 07/03/18 20:00 History Diclofenac Sodium [Voltaren] 100 gm TP Q6H #1 gel..gram. 04/21/18 07/05/18 05/31/18 Rx ALBUTEROL NEB's [Proventil 0.083% 2.5 mg IH Q4HRT PRN nebu 05/19/18 07/05/18 07/03/18 20:00 Rx NEBS] ALPRAZolam [Xanax TAB] 0.5 mg PO Q12HR #20 tablet 05/19/18 07/05/18 07/03/18 20:00 Rx Aspirin EC [Aspirin Enteric Coated 81 mg PO QDAY tablet 05/19/18 07/05/18 05/31/18 Rx TAB] AtorvaSTATin [Lipitor] 40 mg PO QHS tablet 05/19/18 07/05/18 07/03/18 20:00 Rx Carvedilol [Coreg] 25 mg PO BID tablet 05/19/18 07/05/18 07/03/18 20:00 Rx Acetaminophen [Tylenol Arthritis] 650 mg PO Q6HR PRN #30 tablet.er 06/22/18 07/05/18 Unknown Rx Metoclopramide [Reglan] 10 mg PO QID PRN #15 tab 06/22/18 07/05/18 Unknown Rx Promethazine [Phenergan] 25 mg UT Q6HR PRN #10 supp.rect 06/22/18 07/05/18 07/03/18 20:00 Rx levoFLOXacin [Levaquin] 250 mg PO Q48HR #3 tablet 06/22/18 07/05/18 Unknown Rx Oxycodone HCl/Acetaminophen 1 each PO Q6HR PRN #12 tablet 06/26/18 07/05/18 Unknown Rx [Percocet 7.5/325 mg] Active Medications: Generic Name Dose Route Start Last Admin Trade Name Freq PRN Reason Stop Dose Admin Acetaminophen 650 mg 07/05/18 02:58 Tylenol PO Q4H PRN Pain MILD(1-3)/Fever >100.5/JENKINS Albuterol 2.5 mg 07/05/18 02:55 Proventil IH Q4HRT PRN Shortness Of Breath Alprazolam 0.5 mg 07/05/18 10:00 07/06/18 09:14 Xanax PO 0.5 mg Q12HR [facility] Administration Aspirin 81 mg 07/05/18 10:00 07/06/18 09:14 Halfprin Ec PO 81 mg QDAY [facility] Administration Atorvastatin Calcium 40 mg 07/05/18 22:00 07/05/18 21:50 Lipitor PO 40 mg QHS [facility] Administration Carvedilol 25 mg 07/05/18 10:00 07/05/18 21:50 Coreg PO 25 mg BID [facility] Administration Epoetin Davis 10,000 unit 07/04/18 17:57 Procrit IV APRIL PRN hemodialysis Hydralazine HCl 100 mg 07/05/18 08:00 07/05/18 21:50 Apresoline PO 100 mg TID [facility] Administration Hydromorphone HCl 0.5 mg 07/05/18 02:58 07/06/18 08:06 Dilaudid IV 0.5 mg Q3H PRN Administration Pain , Severe (7-10) Sodium Chloride 100 mls @ 999 mls/hr 07/04/18 17:57 Nacl 0.9% IV APRIL PRN Hypotension Metoclopramide HCl 5 mg 07/05/18 02:55 07/05/18 10:58 Reglan PO 5 mg QID PRN Administration Nausea Multivit/Ca Carb/B Cmplx/FA/Prenat 1 cap 07/05/18 10:00 07/06/18 09:14 Renal Caps PO 1 cap QDAY [facility] Administration Nifedipine 90 mg 07/05/18 03:00 07/05/18 21:50 Procardia Xl PO 90 mg BID [facility] Administration Ondansetron HCl 4 mg 07/05/18 02:58 07/05/18 14:40 Zofran IV 4 mg Q8H PRN Administration Nausea And Vomiting Oxycodone HCl 2.5 mg 07/05/18 03:12 07/05/18 03:37 Roxicodone PO 2.5 mg Q6H PRN Administration Pain, Moderate (4-6) Oxycodone/Acetaminophen 1 tab 07/05/18 02:55 07/05/18 03:35 Percocet 5/325 PO 1 tab Q6H PRN Administration Pain (4-6) Pantoprazole Sodium 40 mg 07/05/18 10:00 07/06/18 09:14 Protonix PO 40 mg DAILY [facility] Administration Promethazine HCl 25 mg 07/05/18 02:55 Phenergan [place] Q6H PRN Nausea Sodium Chloride 10 ml 07/05/18 10:00 07/06/18 09:14 Sodium Chloride Flush Syringe 10 Ml IV 10 ml BID [facility] Administration Sodium Chloride 10 ml 07/05/18 02:58 Sodium Chloride Flush Syringe 10 Ml IV PRN PRN LINE FLUSH Trazodone HCl 100 mg 07/05/18 22:00 07/05/18 21:51 Desyrel PO 100 mg QHS [facility] Administration
[2018-07-06] MEDS ORDERED: NACL 0.9 (PRIMING MACHINE ONLY DIALYSIS) MC ONE (13:36)
[2018-07-06] MEDS: PROCARDIA XL PO SCH ×2 (15:41→21:38)
[2018-07-06] MEDS: COREG PO SCH ×2 (15:41→21:39)
--- NOTE | 2018-07-06 16:23 | Progress Note ---
Assessment and Plan Assessment and plan: --End-stage renal disease on hemodialysis; Patient per schedule, nephrology following --Hyperkalemia: Patient received dialysis today --Hypertension; moderate control Continue current antihypertensives and when necessary medications --Generalized weakness; cachexia Nutritional supplement supportive care Physical therapy as needed --Anemia of chronic kidney disease; Procrit during dialysis, closely monitor --Neuropathy; add gabapentin, physical therapy --DVT prophylaxis; heparin. Renal dose Out of bed to chair and ambulate as tolerated Possible discharge home tomorrow if stable Home Health as needed Plan of care discussed with the patient and his mother at the bedside History Interval history: Patient seen and examined medical records reviewed Scheduled for hemodialysis today No new complaints Vital signs noted Patient complains of lower extremity numbness Possible neuropathy Hospitalist Physical - Constitutional Vitals: Temp Pulse Resp BP Pulse Ox 98.0 F 78 18 144/78 92 07/06/18 13:50 07/06/18 15:41 07/06/18 13:50 07/06/18 15:41 07/06/18 05:09 General appearance: Present: no acute distress, well-nourished - EENT Eyes: Present: PERRL, EOM intact - Neck Neck: Present: supple, normal ROM - Respiratory Respiratory effort: normal Respiratory: bilateral: diminished, negative: rales, rhonchi, wheezing - Cardiovascular Rhythm: regular Heart Sounds: Present: S1 & S2 - Extremities Extremities: no ischemia, No edema - Abdominal General gastrointestinal: soft, non-tender, non-distended, normal bowel sounds - Integumentary Integumentary: Present: clear, warm - Psychiatric Psychiatric: appropriate mood/affect - Neurologic Neurologic: CNII-XII intact, moves all extremities Results - Labs CBC & Chem 7: 07/06/18 06:02 07/06/18 06:02 Labs: Laboratory Last Values WBC 6.3 K/mm3 (4.5-11.0) 07/06/18 06:02 RBC 3.10 M/mm3 (3.65-5.03) L 07/06/18 06:02 Hgb 8.3 gm/dl (11.8-15.2) L 07/06/18 06:02 Hct 26.2 % (35.5-45.6) L 07/06/18 06:02 MCV 85 fl (84-94) 07/06/18 06:02 MCH 27 pg (28-32) L 07/06/18 06:02 MCHC 32 % (32-34) 07/06/18 06:02 RDW 21.7 % (13.2-15.2) H 07/06/18 06:02 Plt Count 154 K/mm3 (140-440) 07/06/18 06:02 Lymph % (Auto) 19.9 % (13.4-35.0) 07/06/18 06:02 [place] % (Auto) 6.2 % (0.0-7.3) 07/06/18 06:02 Eos % (Auto) 4.0 % (0.0-4.3) 07/06/18 06:02 Baso % (Auto) 1.3 % (0.0-1.8) 07/06/18 06:02 Lymph # 1.3 K/mm3 (1.2-5.4) 07/06/18 06:02 [place] # 0.4 K/mm3 (0.0-0.8) 07/06/18 06:02 Eos # 0.3 K/mm3 (0.0-0.4) 07/06/18 06:02 Baso # 0.1 K/mm3 (0.0-0.1) 07/06/18 06:02 Seg Neutrophils % 68.6 % (40.0-70.0) 07/06/18 06:02 Seg Neutrophils # 4.4 K/mm3 (1.8-7.7) 07/06/18 06:02 Sodium 138 mmol/L (137-145) 07/06/18 06:02 Potassium 6.0 mmol/L (3.6-5.0) H 07/06/18 06:02 Chloride 96.2 mmol/L (98-107) L 07/06/18 06:02 Carbon Dioxide 26 mmol/L (22-30) 07/06/18 06:02 Anion Gap 22 mmol/L 07/06/18 06:02 BUN 48 mg/dL (9-20) H 07/06/18 06:02 Creatinine 7.3 mg/dL (0.8-1.5) H 07/06/18 06:02 Estimated GFR 9 ml/min 07/06/18 06:02 BUN/Creatinine Ratio 7 % 07/06/18 06:02 Glucose 80 mg/dL (75-100) 07/06/18 06:02 Calcium 8.2 mg/dL (8.4-10.2) L 07/06/18 06:02 Total Bilirubin 0.40 mg/dL (0.1-1.2) 07/06/18 06:02 AST 19 units/L (5-40) 07/06/18 06:02 ALT 11 units/L (7-56) 07/06/18 06:02 Alkaline Phosphatase 102 units/L (35-129) 07/06/18 06:02 Total Protein 7.7 g/dL (6.3-8.2) 07/06/18 06:02 Albumin 3.1 g/dL (3.9-5) L 07/06/18 06:02 Albumin/Globulin Ratio 0.7 % 07/06/18 06:02 Lipase 26 units/L (13-60) 07/04/18 14:46 Active Medications - Current Medications Current Medications: Generic Name Dose Route Start Last Admin Trade Name Freq PRN Reason Stop Dose Admin Acetaminophen 650 mg 07/05/18 02:58 Tylenol PO Q4H PRN Pain MILD(1-3)/Fever >100.5/JENKINS Albuterol 2.5 mg 07/05/18 02:55 Proventil IH Q4HRT PRN Shortness Of Breath Alprazolam 0.5 mg 07/05/18 10:00 07/06/18 09:14 Xanax PO 0.5 mg Q12HR CHONG Administration Aspirin 81 mg 07/05/18 10:00 07/06/18 09:14 Halfprin Ec PO 81 mg QDAY CHONG Administration Atorvastatin Calcium 40 mg 07/05/18 22:00 07/05/18 21:50 Lipitor PO 40 mg QHS CHONG Administration Carvedilol 25 mg 07/05/18 10:00 07/06/18 15:41 Coreg PO 25 mg BID CHONG Administration Epoetin Davis 10,000 unit 07/04/18 17:57 07/06/18 13:15 Procrit IV 10,000 unit APRIL PRN Administration hemodialysis Hydralazine HCl 100 mg 07/05/18 08:00 07/06/18 15:38 Apresoline PO 100 mg TID CHONG Administration Hydromorphone HCl 0.5 mg 07/05/18 02:58 07/06/18 15:31 Dilaudid IV 0.5 mg Q3H PRN Administration Pain , Severe (7-10) Sodium Chloride 100 mls @ 999 mls/hr 07/04/18 17:57 Nacl 0.9% IV APRIL PRN Hypotension Metoclopramide HCl 5 mg 07/05/18 02:55 07/05/18 10:58 Reglan PO 5 mg QID PRN Administration Nausea Multivit/Ca Carb/B Cmplx/FA/Prenat 1 cap 07/05/18 10:00 07/06/18 09:14 Renal Caps PO 1 cap QDAY CHONG Administration Nifedipine 90 mg 07/05/18 03:00 07/06/18 15:41 Procardia Xl PO 90 mg BID CHONG Administration Ondansetron HCl 4 mg 07/05/18 02:58 07/05/18 14:40 Zofran IV 4 mg Q8H PRN Administration Nausea And Vomiting Oxycodone HCl 2.5 mg 07/05/18 03:12 07/05/18 03:37 Roxicodone PO 2.5 mg Q6H PRN Administration Pain, Moderate (4-6) Oxycodone/Acetaminophen 1 tab 07/05/18 02:55 07/05/18 03:35 Percocet 5/325 PO 1 tab Q6H PRN Administration Pain (4-6) Pantoprazole Sodium 40 mg 07/05/18 10:00 07/06/18 09:14 Protonix PO 40 mg DAILY CHONG Administration Promethazine HCl 25 mg 07/05/18 02:55 Phenergan MS Q6H PRN Nausea Sodium Chloride 10 ml 07/05/18 10:00 07/06/18 09:14 Sodium Chloride Flush Syringe 10 Ml IV 10 ml BID CHONG Administration Sodium Chloride 10 ml 07/05/18 02:58 Sodium Chloride Flush Syringe 10 Ml IV PRN PRN LINE FLUSH Trazodone HCl 100 mg 07/05/18 22:00 07/05/18 21:51 Desyrel PO 100 mg QHS CHONG Administration
[2018-07-06] MEDS: DESYREL PO SCH (21:38)
[2018-07-07] MEDS: NEURONTIN PO SCH ×3 (01:25→14:45)
[2018-07-07] MEDS: DICLOFENAC 1% TP SCH ×3 (04:56→14:45)
[2018-07-07] MEDS: DILAUDID IV PRN ×2 (04:56→11:09)
[2018-07-07 07:59] LABS: Calcium 8.3 mg/dL (8.4-10.2)
[2018-07-07] MEDS ORDERED: KIONEX PO ONE (08:22)
[2018-07-07] MEDS: ROXICODONE PO PRN (08:43)
[2018-07-07] MEDS: PERCOCET 5/325 PO PRN (08:43)
[2018-07-07] MEDS: APRESOLINE PO SCH ×2 (08:43→14:45)
[2018-07-07] MEDS: COREG PO SCH (10:28)
[2018-07-07] MEDS: HALFPRIN EC PO SCH (10:28)
[2018-07-07] MEDS: Renal Caps PO SCH (10:28)
[2018-07-07] MEDS: PROCARDIA XL PO SCH (10:28)
[2018-07-07] MEDS: PROTONIX PO SCH (10:28)
[2018-07-07] MEDS: XANAX PO SCH (10:28)
[2018-07-07] MEDS: SODIUM CHLORIDE FLUSH SYRINGE 10 ML IV SCH (10:29)
--- NOTE | 2018-07-07 13:20 | Discharge Summary ---
Providers - Providers Date of Admission: 07/04/18 18:08 Date of discharge: 07/07/18 Attending physician: BRODY WALKER 07/05/18 02:58 Consult to Physician [CONS] Routine Comment: Consulting Provider: ROXANNE DE LA CRUZ Physician Instructions: Reason For Exam: ESRD 07/06/18 19:46 Physical Therapy Evaluation and Treat [CONS] Routine Comment: evaluate and treat Reason For Exam: lower extremity weakness/chronic illness Primary care physician: PHOTOVOLTAIC TECHNICIAN Hospitalization Reason for admission: generalized weakness/lower extremity and pain Condition: Stable Pertinent studies: Lower extremity venous Dopplers; negative for DVT X-ray abdomen and chest; nonobstructive bowel gas pattern and moderate stool in colon prominent cardiac silhouette bilateral pulmonary air space opacities pleural effusion congestive heart failure Hospital course: 28-year-old gentleman with medical history significant for hypertension, congestive heart failure with reduced systolic function, end-stage renal disease on hemodialysis was admitted through emergency room with lower extremity weakness and cachexia. Patient was initially evaluated admitted to the hospital symptomatically managed, evaluated by nephrology, received hemodialysis per schedule Patient also had hyperkalemia and lower extremity neuropathy, venous Doppler was negative for DVT, started on Neurontin Symptoms significantly improved, today patient is comfortable, no new complaints, vital signs stable Physical examination is unremarkable Patient is hemodynamically and clinically stable at discharge Discharge diagnosis; --End-stage renal disease on hemodialysis; Patient per schedule, nephrology following --Hyperkalemia: Patient received dialysis today --Hypertension; moderate control Continue current antihypertensives and when necessary medications --Generalized weakness; cachexia Nutritional supplement supportive care Physical therapy as needed --Anemia of chronic kidney disease; Procrit during dialysis, closely monitor --Neuropathy; add gabapentin, physical therapy --DVT prophylaxis; heparin. Renal dose Out of bed to chair and ambulate as tolerated Home Health /PT as needed Disposition: [id number] HOME UNDER HOME [facility] Time spent for discharge: 32 min Core Measure Documentation - Palliative Care Palliative Care/ Comfort Measures: Not Applicable - Core Measures Any of the following diagnoses?: none Exam - Constitutional Vitals: Temp Pulse Resp BP Pulse Ox 97.9 F 79 18 126/69 90 07/07/18 11:19 07/07/18 11:19 07/07/18 11:39 07/07/18 11:19 07/07/18 11:19 General appearance: Present: no acute distress, well-nourished - EENT Eyes: Present: PERRL, EOM intact - Neck Neck: Present: supple, normal ROM - Respiratory Respiratory effort: normal Respiratory: bilateral: diminished, negative: rales, rhonchi, wheezing - Cardiovascular Rhythm: regular Heart Sounds: Present: S1 & S2 - Extremities Extremities: no ischemia, No edema - Abdominal General gastrointestinal: Present: soft, non-tender, non-distended, normal bowel sounds - Integumentary Integumentary: Present: clear, warm - Musculoskeletal Musculoskeletal: strength equal bilaterally, generalized weakness - Psychiatric Psychiatric: appropriate mood/affect, cooperative - Neurologic Neurologic: CNII-XII intact, moves all extremities Plan Activity: advance as tolerated, fall precautions Diet: renal Special Instructions: physical therapy Additional Instructions: Follow renal /HD per schedule TTS Follow up with: PRIMARY CARE,MD [Primary Care Provider] - 3-5 Days Prescriptions: Gabapentin [Neurontin] 100 mg PO Q8HR #90 capsule ALPRAZolam [Xanax TAB] 0.5 mg PO Q12HR #10 tablet
--- NOTE | 2018-07-07 16:53 | Progress Note ---
Assessment and Plan - Patient Problems (1) End-stage renal disease on hemodialysis Current Visit: Yes Status: Acute Plan to address problem: End-stage renal disease Dialysis access left arm AV fistula Continue hemodialysis Tuesday (2) Anemia Current Visit: No Status: Acute Qualifiers: Anemia type: due to chronic kidney disease Chronic kidney disease stage: on chronic dialysis Qualified Code(s): N18.6 - End stage renal disease; D63.1 - Anemia in chronic kidney disease; Z99.2 - Dependence on renal dialysis Plan to address problem: Moderate anemia Hemoglobin: 8.3g /DL Etiology secondary to chronic Kidney Disease Monitor CBC (3) HTN (hypertension) Current Visit: No Status: Chronic Qualifiers: Hypertension type: essential hypertension Qualified Code(s): I10 - Essential (primary) hypertension Plan to address problem: Hypertension controlled continue current medications (4) Lower extremity weakness Current Visit: Yes Status: Acute Plan to address problem: Lower extremity weakness Workup ongoing by primary team Subjective Interval history: 28-year-old gentleman with medical history significant for hypertension, congestive heart failure with reduced systolic function, end-stage renal disease admitted with complaints of bilateral lower extremity weakness currently on hemodialysis Tuesday at the [facility] present by a left arm AV fistula patient seen today tolerated dialysis well. reports lower extremity weakness still persists , was started on lyrica denies any fever chills or shortness of breath. Objective - Vital Signs Vital signs: Vital Signs - 12hr 07/07/18 07/07/18 07/07/18 06:48 10:28 11:19 Temperature 97.9 F 97.9 F Pulse Rate 78 79 Respiratory 20 18 Rate Blood Pressure 125/72 131/76 126/69 O2 Sat by Pulse 91 90 Oximetry 07/07/18 11:39 Temperature Pulse Rate Respiratory 18 Rate Blood Pressure O2 Sat by Pulse Oximetry - General Appearance General appearance: well-developed, well-nourished EENT: ATNC, PERRL Neck: no JVD Respiratory: Present: Clear to Ascultation Cardiology: regular, S1S2 Gastrointestinal: normal, normoactive bowel sounds Integumentary: no rash Neurologic: no focal deficit, alert and oriented x3 Musculoskeletal: deferred Psychiatric: mood/affect appropriate - Lab 07/06/18 06:02 07/07/18 06:35 Most recent lab results Calcium 8.3 mg/dL (8.4-10.2) L 07/07/18 06:35 - Imaging Chest x-ray: image reviewed Medications & Allergies - Medications Allergies/Adverse Reactions: Allergies heparin Allergy (Verified 07/02/18 15:17) lowers platelets Home Medications: Home Medications Medication Instructions Recorded Confirmed Last Taken Type AtorvaSTATin [Lipitor] 40 mg PO QHS #30 tab 03/27/18 07/05/18 05/31/18 Rx Esomeprazole Magnesium [Nexium] 40 mg PO DAILY #30 capsule. 03/27/18 07/05/18 07/03/18 20:00 Rx Folic Acid/Vit B Comp W-C [Renal 1 cap PO QDAY #60 capsule 03/27/18 07/05/18 07/03/18 08:00 Rx Caps] hydrALAZINE [Apresoline TAB] 100 mg PO TID #90 tab 03/27/18 07/05/18 07/03/18 20:00 Rx traZODone [Desyrel] 100 mg PO QHS #30 tablet 03/27/18 07/05/18 05/30/18 Rx NIFEdipine [Adalat cc] 90 mg PO BID 04/11/18 07/05/18 07/03/18 20:00 History Diclofenac Sodium [Voltaren] 100 gm TP Q6H #1 gel..gram. 04/21/18 07/05/18 05/31/18 Rx ALBUTEROL NEB's [Proventil 0.083% 2.5 mg IH Q4HRT PRN nebu 05/19/18 07/05/18 07/03/18 20:00 Rx NEBS] Aspirin EC [Aspirin Enteric Coated 81 mg PO QDAY tablet 05/19/18 07/05/18 05/31/18 Rx TAB] AtorvaSTATin [Lipitor] 40 mg PO QHS tablet 05/19/18 07/05/18 07/03/18 20:00 Rx Carvedilol [Coreg] 25 mg PO BID tablet 05/19/18 07/05/18 07/03/18 20:00 Rx Promethazine [Phenergan SUPPOS] 25 mg NV Q6HR PRN #10 supp.rect 06/22/18 9 07/03/18 20:00 Rx Oxycodone HCl/Acetaminophen 1 each PO Q6HR PRN #12 tablet 06/26/18 07/05/18 Un known Rx [Percocet 7.5/325 mg] ALPRAZolam [Xanax TAB] 0.5 mg PO Q12HR #10 tablet 07/07/18 Unknown Rx Gabapentin [Neurontin] 100 mg PO Q8HR #90 capsule 07/07/18 Unknown Rx Active Medications: Generic Name Dose Route Start Last Admin Trade Name Freq PRN Reason Stop Dose Admin Acetaminophen 650 mg 07/05/18 02:58 Tylenol PO Q4H PRN Pain MILD(1-3)/Fever >100.5/JENKINS Albuterol 2.5 mg 07/05/18 02:55 Proventil IH Q4HRT PRN Shortness Of Breath Alprazolam 0.5 mg 07/05/18 10:00 07/07/18 10:28 Xanax PO 0.5 mg Q12HR CHONG Administration Aspirin 81 mg 07/05/18 10:00 07/07/18 10:28 Halfprin Ec PO 81 mg QDAY CHONG Administration Atorvastatin Calcium 40 mg 07/05/18 22:00 07/06/18 21:38 Lipitor PO 40 mg QHS CHONG Administration Carvedilol 25 mg 07/05/18 10:00 07/07/18 10:28 Coreg PO 25 mg BID CHONG Administration Epoetin [place] 10,000 unit 07/04/18 17:57 07/06/18 13:15 Procrit IV 10,000 unit APRIL PRN Administration hemodialysis Gabapentin 100 mg 07/06/18 22:00 07/07/18 14:45 Neurontin PO 100 mg Q8HR CHONG Administration Hydralazine HCl 100 mg 07/05/18 08:00 07/07/18 14:45 Apresoline PO 100 mg TID CHONG Administration Hydromorphone HCl 0.5 mg 07/06/18 16:27 07/07/18 11:09 Dilaudid IV 0.5 mg Q6H PRN Administration Pain , Severe (7-10) Sodium Chloride 100 mls @ 999 mls/hr 07/04/18 17:57 Nacl 0.9% IV APRIL PRN Hypotension Metoclopramide HCl 5 mg 07/05/18 02:55 07/05/18 10:58 Reglan PO 5 mg QID PRN Administration Nausea Multivit/Ca Carb/B Cmplx/FA/Prenat 1 cap 07/05/18 10:00 07/07/18 10:28 Renal Caps PO 1 cap QDAY CHONG Administration Nifedipine 90 mg 07/05/18 03:00 07/07/18 10:28 Procardia Xl PO 90 mg BID CHONG Administration Ondansetron HCl 4 mg 07/05/18 02:58 07/05/18 14:40 Zofran IV 4 mg Q8H PRN Administration Nausea And Vomiting Oxycodone HCl 2.5 mg 07/05/18 03:12 07/07/18 08:43 Roxicodone PO 2.5 mg Q6H PRN Administration Pain, Moderate (4-6) Oxycodone/Acetaminophen 1 tab 07/05/18 02:55 07/07/18 08:43 Percocet 5/325 PO 1 tab Q6H PRN Administration Pain (4-6) Pantoprazole Sodium 40 mg 07/05/18 10:00 07/07/18 10:28 Protonix PO 40 mg DAILY CHONG Administration Promethazine HCl 25 mg 07/05/18 02:55 Phenergan NV Q6H PRN Nausea Sodium Chloride 10 ml 07/05/18 10:00 07/07/18 10:29 Sodium Chloride Flush Syringe 10 Ml IV 10 ml BID CHONG Administration Sodium Chloride 10 ml 07/05/18 02:58 Sodium Chloride Flush Syringe 10 Ml IV PRN PRN LINE FLUSH Trazodone HCl 100 mg 07/05/18 22:00 07/06/18 21:38 Desyrel PO 100 mg QHS CHONG Administration
[2018-07-07 17:43] VITALS: BP 131/71
== END 2018-07-07 17:30 | disposition home health service (06) | DRG 640 ==
LOC: ED 10:14 → 4A 18:08 → 3A 07-05 16:52
PROVIDERS: ADMIT Internal Medicine; ATTEND Internal Medicine
PROC: 5A1D70Z Performance of Urinary Filtration, Intermittent, Less than 6 Hours Per Day (ICD-10-PCS; principal; 2018-07-04)
PROC: 5A1D70Z Performance of Urinary Filtration, Intermittent, Less than 6 Hours Per Day (ICD-10-PCS; 2018-07-06)
DX: E87.5 Hyperkalemia (principal); N18.6 End stage renal disease; I13.2 Hypertensive heart and chronic kidney disease with heart failure and with stage 5 chronic kidney disease, or end stage renal disease; R64 Cachexia; Z88.8 Allergy status to other drugs, medicaments and biological substances; Z79.82 Long term (current) use of aspirin; Z99.2 Dependence on renal dialysis; K21.9 Gastro-esophageal reflux disease without esophagitis; M19.90 Unspecified osteoarthritis, unspecified site; Z87.891 Personal history of nicotine dependence; F41.1 Generalized anxiety disorder; I50.9 Heart failure, unspecified; D63.1 Anemia in chronic kidney disease; Z68.24 Body mass index [BMI] 24.0-24.9, adult; G62.9 Polyneuropathy, unspecified
CPT/HCPCS: 36415; 71046; 74022; 80048; 80053; 80076; 83690; 84484; 85025; 85610; 85730; 87116; 93005; 93010; 93970; 96372; 99406; G0378; A9270-GY; J0885; J1170; J2270; J2405; J7030

== ENCOUNTER 2018-07-18 02:42 | Inpatient (IN) | payer MEDICARE ==
--- NOTE | 2018-07-18 05:55 | XRay Report ---
PROCEDURE: XR CHEST 1V AP TECHNIQUE: A portable upright view the chest was obtained. HISTORY: sob COMPARISONS: 07/02/2018 FINDINGS: The heart remains moderately enlarged. The lungs remain diffusely congested with bilateral effusions. There is stable patchy airspace disease in the lower lobes. The bones and soft tissues otherwise are unchanged. IMPRESSION: Cardiomegaly with stable congestive heart or pattern and bilateral effusions. Superimposed pneumonia in the lung bases cannot entirely be ruled out.. This document is electronically signed by Alejo Coffman MD., Jul 18 2018 04:02:25 AM ET
[2018-07-18] MEDS ORDERED: CALCIUM GLUCONATE 1,000 MG in NACL 0.9% 100 ML IV ONE (06:45)
[2018-07-18] MEDS ORDERED: PROVENTIL IH ONE (06:45)
[2018-07-18] MEDS ORDERED: D50W (25GM) Syringe IV ONE (06:45)
[2018-07-18] MEDS ORDERED: KIONEX ONE (06:48)
[2018-07-18] MEDS ORDERED: HumuLIN R ONE (07:15)
--- NOTE | 2018-07-18 07:23 | Emergency Department Report ---
ED General Adult HPI - General Chief complaint: Fall Stated complaint: GENERAL BODY PAIN Time Seen by Provider: 07/18/18 07:13 Source: patient, EMS (ems notes not available at time of chart dictation), RN notes reviewed, old records reviewed Mode of arrival: Stretcher Limitations: Altered Mental Status, Physical Limitation - History of Present Illness Initial comments: This is a 28-year-old gentleman. I am familiar with this patient. Today, the patient is brought to the hospital by emergency medical services for reported weakness, and his legs giving out on him. The patient is sleepy in the emergency room. He is difficult to arouse. Initially, prior to arousal, he is sleeping comfortably, and in no acute distress. When I wake the patient up, he states that he feels weak. He indicates chronic lower extremity pain. He is not able to describe the qualitative nature of his pain, but he indicates that the pain increases with palpation and decreases with rest. He then starts to cry. The patient tells me that he fell and that he couldn't get up. The patient is not able to comment on whether or not he is having headache, neck pain. The patient makes no complaint of back pain. The patient is moving his upper and lower extremities. He is crying in the emergency room during his examination. The patient is a poor historian. Currently, no friends or family are available at this point time for collateral information. 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 He is also found to be hyperkalemic. Contacted covering nephrology on-call, Dr. Sun, who will arrange for emergent dialysis. He states that the patient has basically been alternating between this hospital, and [facility]. As per nursing staff, who also work at patient's dialysis center, the patient is erratic with his dialysis compliance, and has been witnessed to have stayed in his car and not getting up to go to dialysis, and in the past, local police departments having contracted for safety check. -: unknown Radiation: other Quality: other Consistency: other Improves with: other Worsens with: other - Related Data Home Medications Medication Instructions Recorded Confirmed Last Taken NIFEdipine [Adalat cc] 90 mg PO BID 04/11/18 07/05/18 07/03/18 20:00 Previous Rx's Medication Instructions Recorded Last Taken Type AtorvaSTATin [Lipitor] 40 mg PO QHS #30 tab 03/27/18 05/31/18 Rx Esomeprazole Magnesium [Nexium] 40 mg PO DAILY #30 capsule. 03/27/18 07/03/18 20:00 Rx Folic Acid/Vit B Comp W-C [Renal 1 cap PO QDAY #60 capsule 03/27/18 07/03/18 08:00 Rx Caps] hydrALAZINE [Apresoline TAB] 100 mg PO TID #90 tab 03/27/18 07/03/18 20:00 Rx traZODone [Desyrel] 100 mg PO QHS #30 tablet 03/27/18 05/30/18 Rx Diclofenac Sodium [Voltaren] 100 gm TP Q6H #1 gel..gram. 04/21/18 05/31/18 Rx ALBUTEROL NEB's [Proventil 0.083% 2.5 mg IH Q4HRT PRN nebu 05/19/18 07/03/18 20:00 Rx NEBS] Aspirin EC [Aspirin Enteric Coated 81 mg PO QDAY tablet 05/19/18 05/31/18 Rx TAB] AtorvaSTATin [Lipitor] 40 mg PO QHS tablet 05/19/18 07/03/18 20:00 Rx Carvedilol [Coreg] 25 mg PO BID tablet 05/19/18 07/03/18 20:00 Rx Promethazine [Phenergan SUPPOS] 25 mg LA Q6HR PRN #10 supp.rect 06/22/1807/03 20:00 Rx Oxycodone HCl/Acetaminophen 1 each PO Q6HR PRN #12 tablet 06/26/18 Unknown Rx [Percocet 7.5/325 mg] ALPRAZolam [Xanax TAB] 0.5 mg PO Q12HR #10 tablet 07/07/18 Unknown Rx Gabapentin [Neurontin] 100 mg PO Q8HR #90 capsule 07/07/18 Unknown Rx Allergies Allergy/AdvReac Type Severity Reaction Status Date / Time heparin Allergy lowers Verified 07/02/18 15:17 platelets ED Review of Systems ROS: Stated complaint: GENERAL BODY PAIN Other details as noted in HPI Comment: Unobtainable due to pts medical conditions Constitutional: malaise ENT: congestion Respiratory: SOB with exertion, SOB at rest, wheezing Gastrointestinal: denies: vomiting Musculoskeletal: arthralgia, myalgia. denies: back pain Neurological: weakness Psychiatric: anxiety ED Past Medical Hx - Past Medical History Hx Hypertension: Yes Hx Heart Attack/AMI: No Hx Congestive Heart Failure: Yes (4LPM at home) Hx Diabetes: No Hx Deep Vein Thrombosis: No Hx Pulmonary Embolism: No Hx GERD: Yes Hx Renal Disease: Yes (ESRD T--) Hx Arthritis: Yes (SPINE) Hx Asthma: No Hx COPD: No Hx Tuberculosis: No Hx Dementia: No Hx HIV: No Additional medical history: Hidradenitis, EJF 40%, enlarged heart - Surgical History Hx Pacemaker: No Hx Cholecystectomy: No Hx Appendectomy: No Hx Breast Surgery: No Additional Surgical History: PD CATHETER - AND REMOVAL. AV FISTULA. LYMPH N ODES REMOVED LEFT GROIN. TONSILLECTOMY. Patient does have a history of peritonitis with previous PD - Social History Smoking Status: Former Smoker Substance Use Type: None - Medications Home Medications: Home Medications Medication Instructions Recorded Confirmed Last Taken Type AtorvaSTATin [Lipitor] 40 mg PO QHS #30 tab 03/27/18 07/05/18 05/31/18 Rx Esomeprazole Magnesium [Nexium] 40 mg PO DAILY #30 capsule. 03/27/18 07/05/18 07/03/18 20:00 Rx Folic Acid/Vit B Comp W-C [Renal 1 cap PO QDAY #60 capsule 03/27/18 07/05/18 07/03/18 08:00 Rx Caps] hydrALAZINE [Apresoline TAB] 100 mg PO TID #90 tab 03/27/18 07/05/18 07/03/18 20:00 Rx traZODone [Desyrel] 100 mg PO QHS #30 tablet 03/27/18 07/05/18 05/30/18 Rx NIFEdipine [Adalat cc] 90 mg PO BID 04/11/18 07/05/18 07/03/18 20:00 History Diclofenac Sodium [Voltaren] 100 gm TP Q6H #1 gel..gram. 04/21/18 07/05/18 05/31/18 Rx ALBUTEROL NEB's [Proventil 0.083% 2.5 mg IH Q4HRT PRN nebu 05/19/18 07/05/1807/03/19 20:00 Rx NEBS] Aspirin EC [Aspirin Enteric Coated 81 mg PO QDAY tablet 05/19/18 07/05/18 05/31/18 Rx TAB] AtorvaSTATin [Lipitor] 40 mg PO QHS tablet 05/19/18 07/05/18 07/03/18 20:00 Rx Carvedilol [Coreg] 25 mg PO BID tablet 05/19/18 07/05/18 07/03/18 20:00 Rx Promethazine [Phenergan SUPPOS] 25 mg LA Q6HR PRN #10 supp.rect 06/22/18 07/05/18 07/03/18 20:00 Rx Oxycodone HCl/Acetaminophen 1 each PO Q6HR PRN #12 tablet 06/26/18 07/05/18 Unknown Rx [Percocet 7.5/325 mg] ALPRAZolam [Xanax TAB] 0.5 mg PO Q12HR #10 tablet 07/07/18 Unknown Rx Gabapentin [Neurontin] 100 mg PO Q8HR #90 capsule 07/07/18 Unknown Rx ED Physical Exam - General Limitations: Altered Mental Status, Physical Limitation General appearance: lethargic - Head Head exam: Present: atraumatic, normocephalic - Eye Eye exam: Present: normal appearance, EOMI - ENT ENT exam: Present: normal orophraynx, mucous membranes moist, normal external ear exam - Neck Neck exam: Present: normal inspection, full ROM. Absent: tenderness, meningismus - Respiratory Respiratory exam: Present: decreased breath sounds. Absent: respiratory distress, stridor - Cardiovascular Cardiovascular Exam: Present: regular rate, normal rhythm. Absent: bradycardia, rubs, gallop - GI/Abdominal GI/Abdominal exam: Present: soft. Absent: distended, tenderness, guarding, rebound, rigid, pulsatile mass - Rectal Rectal exam: Present: deferred - Extremities Exam Extremities exam: Present: normal inspection, full ROM, tenderness, pedal edema (there is 3+ pitting edema in the lower extremities.), other (there is a left upper extremity graft with no redness, pus or streaking. 2+ pulses noted in the bilateral upper extremities. Patient does move 4 extremities spontaneously, and to pinch. Compartments soft.). Absent: calf tenderness - Back Exam Back exam: Present: normal inspection, full ROM. Absent: tenderness, CVA tenderness (R), paraspinal tenderness, vertebral tenderness - Neurological Exam Neurological exam: Present: altered, other (there is no facial droop. The tongue is midline. Patient cries when he is examined. There is 5 out of 5 strength in 4 extremities. Sensation intact to pinch in 4 extremities.) - Psychiatric Psychiatric exam: Present: anxious - Skin Skin exam: Present: warm, dry, intact, normal color. Absent: rash ED Course Vital Signs 07/18/18 07/18/18 07/18/18 02:53 03:00 03:06 Temperature 98.2 F Pulse Rate 87 Respiratory 14 18 Rate Blood Pressure 160/91 O2 Sat by Pulse 86 92 94 Oximetry 07/18/18 07/18/18 07/18/18 03:15 03:30 03:45 Temperature Pulse Rate 80 88 83 Respiratory 14 17 17 Rate Blood Pressure 149/85 158/90 164/92 O2 Sat by Pulse 95 95 94 Oximetry - EJ/Peripheral Line Neck R Time Out Performed: Yes Indications: nurses unable to establis Skin Cleansed in Sterile Fashion: Yes Size: 20 Dressing Placed: Tegaderm Patient Tolerated Procedure: well ED Medical Decision Making - Lab Data Result diagrams: 07/18/18 03:54 07/18/18 03:54 Vital Signs 07/18/18 07/18/18 07/18/18 02:53 03:00 03:06 Temperature 98.2 F Pulse Rate 87 Respiratory 14 18 Rate Blood Pressure 160/91 O2 Sat by Pulse 86 92 94 Oximetry 07/18/18 07/18/18 07/18/18 03:15 03:30 03:45 Temperature Pulse Rate 80 88 83 Respiratory 14 17 17 Rate Blood Pressure 149/85 158/90 164/92 O2 Sat by Pulse 95 95 94 Oximetry Labs 07/18/18 07/18/18 03:54 03:54 WBC 8.3 RBC 2.69 L Hgb 7.6 L Hct 23.0 L MCV 86 MCH 28 MCHC 33 RDW 21.4 H Lymph % (Auto) 11.8 L [place] % (Auto) 8.4 H Eos % (Auto) 1.9 Baso % (Auto) 1.0 Lymph # 1.0 L [place] # 0.7 Eos # 0.2 Baso # 0.1 Seg Neutrophils % 76.9 H Seg Neutrophils # 6.4 Sodium 135 L Potassium 7.4 H* Chloride 91.7 L Carbon Dioxide 27 Anion Gap 24 BUN 68 H Creatinine 9.3 H Estimated GFR 7 BUN/Creatinine Ratio 7 Glucose 74 L Calcium 7.9 L - EKG Data -: EKG Interpreted by Me EKG shows normal: sinus rhythm - EKG Data 07/18/18 08:46 Sinus rhythm, 70 bpm, left axis deviation, QTC prolonged, low voltage, poor R- wave progression, abnormal EKG, no endorsement of chest pain, this is not a STEMI. - Radiology Data Radiology results: report reviewed, image reviewed Print Report Referring Physician: HOUSTON TAVAREZ Patient Name: LUIS Alcocer TUESDAY Date of : 1990 Sex: Male Report Date: 2018-07-18 Report Status: Finalized Findings [facility] [address] [place] [address] XRay Report Signed Patient: TUESDAY,LUIS Alcocer MR#: [id number] 4 : 1990 Acct:[id number] Age/Sex: 28 / M ADM Date: 07/18/18 Loc: ED Attending Dr: Ordering Physician: HOUSTON TAVAREZ MD Date of Service: 07/18/18 Procedure(s): XR chest 1V ap Accession Number(s): [id number] cc: HOUSTON TAVAREZ MD Fluoro Time In Minutes: PROCEDURE: XR CHEST 1V AP TECHNIQUE: A portable upright view the chest was obtained. HISTORY: sob COMPARISONS: 07/02/2018 FINDINGS: The heart remains moderately enlarged. The lungs remain diffusely congested with bilateral effusions. There is stable patchy airspace disease in the lower lobes. The bones and soft tissues otherwise are unchanged. IMPRESSION: Cardiomegaly with stable congestive heart or pattern and bilateral effusions. Superimposed pneumonia in the lung bases cannot entirely be ruled out.. This document is electronically signed by Maya Coffman MD., Jul 18 2018 04:02:25 AM ET Transcribed By: RB Dictated By: MAYA COFFMAN MD Electronically Authenticated By: MAYA COFFMAN MD Signed Date/Time: 07/18/[address] scan of the brain, cervical spine negative for acute disease. X-ray of the pelvis is negative for acute disease. - Medical Decision Making Differential diagnosis, including but not limited to: Debility, azotemia, uremia, physical deconditioning, fluid overload, chronic pleural effusions, hyperkalemia, malingering Assessment and plan: 28-year-old gentleman, well-known to this provider, nonfocal motor exam, sleepy but arousable, protecting his airway, found to have congestive heart failure, recurrent pleural effusions, lower extremity edema with hyperkalemia, and clinical uremia, azotemia. The patient had a negative CT scan of the brain, cervical spine. I suspect that the patient may have a component of secondary gain or malingering. Nevertheless, he will require admission to the hospital for emergent dialysis. Nephrology has been consulted. The Hospital physician, Dr. Saldana is going to admit the patient to the medical service. I will defer to the inpatient team to further evaluate his reported complaint of debility, deconditioning. No midline spinal tenderness, and moves 4 extremities spontaneously, and has intact sensation to pinch and light touch in the upper, lower extremities., Critical Care Time: Yes Critical care time in (mins) excluding proc time.: 35 Critical care attestation.: If time is entered above; I have spent that time in minutes in the direct care of this critically ill patient, excluding procedure time. ED Disposition Clinical Impression: Recurrent left pleural effusion, Hyperkalemia, Volume overload, End-stage renal disease on hemodialysis, Debility Disposition: 09 OP ADMIT IP TO THIS HOSP Is pt being admited?: Yes Condition: Fair Referrals: PRIMARY CARE, [Primary Care Provider] - 3-5 Days
[2018-07-18 07:24] LABS: Basophils # (Auto) 0.1 K/mm3 (0.0-0.1); Calcium 7.9 mg/dL (8.4-10.2); Eosinophils # (Auto) 0.2 K/mm3 (0.0-0.4); Eosinophils % (Auto) 1.9 % (0.0-4.3); Hemoglobin 7.6 gm/dl (11.8-15.2); Lymphocytes % (Auto) 11.8 % (13.4-35.0); Mean Corpuscular HGB Conc 33 % (32-34); Mean Corpuscular Volume 86 fl (84-94); Monocytes # (Auto) 0.7 K/mm3 (0.0-0.8); Monocytes % (Auto) 8.4 % (0.0-7.3); Red Blood Count 2.69 M/mm3 (3.65-5.03)
--- NOTE | 2018-07-18 07:27 | Cat Scan Report ---
CT scan of head without IV contrast: History: Fall. Findings: Ventricles are normal in size and midline in location. No evidence of anemia, hemorrhage or mass. No extra axial fluid collection. Normal brainstem and cerebellum are normal sinuses and mastoid air cells. Impression: No acute intact abnormality.
--- NOTE | 2018-07-18 07:28 | Cat Scan Report ---
CT scan of cervical spine: History: Fall. Findings: The odontoid process and lateral mass appears intact. Anterior and posterior arch of atlas appears normal. Normal prevertebral soft tissue. Normal height of vertebral bodies and intervertebral disc. No evidence of acute fracture. Impression: No evidence of acute fracture.
[2018-07-18 07:30] LABS: Red Cell Distribution Width 21.4 % (13.2-15.2)
[2018-07-18] MEDS ORDERED: NACL 0.9% 100 ML IV PRN ×2 (07:46→08:49)
--- NOTE | 2018-07-18 07:48 | Event Note ---
patient being admitted with fluid overload and hyperkalemia Discussed with emergency room physician Chart reviewed Dialysis orders have been entered
--- NOTE | 2018-07-18 07:55 | XRay Report ---
PROCEDURE: XR PELVIS 1-2V TECHNIQUE: An AP view the pelvis was obtained. HISTORY: PAIN/FALL COMPARISONS: None FINDINGS: The bony pelvic ring appears intact. Both hip and SI joints appear normal. The soft tissues are unrem arkable. IMPRESSION: No acute findings.. This document is electronically signed by Alejo Coffman MD., Jul 18 2018 07:53:29 AM ET
--- NOTE | 2018-07-18 08:46 | Consultation ---
History of Present Illness - Reason for Consult Consult date: 07/18/18 end stage renal disease, hyperkalemia Requesting physician: ARCADIO SKAGGS - History of Present Illness Patient is a 28-year-old male with past medical history significant for hypertension , end-stage renal disease and noncompliance presented to the emergency room with weakness in his lower extremities. Patient states that he fell down and therefore came to the emergency room. He normally dialyzes on TTS schedule as outpatient. States that his last dialysis treatment was on . He was also hospitalized recently at [facility]. Patient however could not tell me the details. In the emergency room he is found to be hyperkalemic and significantly volume overloaded and therefore being admitted for further management. Patient appears to be somewhat groggy at this time and unable to give detailed history Past History Past Medical History: dialysis, ESRD, hypertension Past Surgical History: Other (history of creation of AV fistula as well as PD catheter) Social history: no significant social history Family history: no significant family history Medications and Allergies Allergies Allergy/AdvReac Type Severity Reaction Status Date / Time heparin Allergy lowers Verified 07/02/18 15:17 platelets Home Medications Medication Instructions Recorded Confirmed Last Taken Type AtorvaSTATin [Lipitor] 40 mg PO QHS #30 tab 03/27/18 07/05/18 05/31/18 Rx Esomeprazole Magnesium [Nexium] 40 mg PO DAILY #30 capsule. 03/27/18 07/05/18 07/03/18 20:00 Rx Folic Acid/Vit B Comp W-C [Renal 1 cap PO QDAY #60 capsule 03/27/18 07/05/18 07/03/18 08:00 Rx Caps] hydrALAZINE [Apresoline TAB] 100 mg PO TID #90 tab 03/27/18 07/05/18 07/03/18 20:00 Rx traZODone [Desyrel] 100 mg PO QHS #30 tablet 03/27/18 07/05/18 05/30/18 Rx NIFEdipine [Adalat cc] 90 mg PO BID 04/11/18 07/05/18 07/03/18 20:00 History Diclofenac Sodium [Voltaren] 100 gm TP Q6H #1 gel..gram. 04/21/18 07/05/18 05/31/18 Rx ALBUTEROL NEB's [Proventil 0.083% 2.5 mg IH Q4HRT PRN nebu 05/19/18 07/05/18 07/03/18 20:00 Rx NEBS] Aspirin EC [Aspirin Enteric Coated 81 mg PO QDAY tablet 05/19/18 07/05/18 05/31/18 Rx TAB] AtorvaSTATin [Lipitor] 40 mg PO QHS tablet 05/19/18 07/05/18 07/03/18 20:00 Rx Carvedilol [Coreg] 25 mg PO BID tablet 05/19/18 07/05/18 07/03/18 20:00 Rx Promethazine [Phenergan SUPPOS] 25 mg ND Q6HR PRN #10 supp.rect 06/22/18 07/05/18 07/03/18 20:00 Rx Oxycodone HCl/Acetaminophen 1 each PO Q6HR PRN #12 tablet 06/26/18 07/05/18 Unknown Rx [Percocet 7.5/325 mg] ALPRAZolam [Xanax TAB] 0.5 mg PO Q12HR #10 tablet 07/07/18 Unknown Rx Gabapentin [Neurontin] 100 mg PO Q8HR #90 capsule 07/07/18 Unknown Rx Active Meds: Active Medications Sodium Chloride (Nacl 0.9%) 100 mls @ 999 mls/hr IV APRIL PRN PRN Reason: Hypotension Review of Systems ROS unobtainable: due to mental status (patient is somewhat sleepy at this time. Detailed review of system unable to obtain) Exam - Vital Signs Vital signs: Vital Signs Pulse Ox 86 07/18/18 02:53 - General Appearance General appearance: well-developed, well-nourished, appears stated age EENT: PERRL, mucous membranes moist Neck: Present: neck supple, trachea midline. Absent: JVD/HJR, Masses Respiratory: Rales, Decreased Breath Sounds (at the bases) Heart: regular, normal heart rate Gastrointestinal: Present: normal, normoactive bowel sounds Integumentary: no rash, other (2+ edema. AV fistula left upper arm. Good bruit and thrill.) Results - Lab Results 07/18/18 03:54 07/18/18 03:54 Most recent lab results Calcium 7.9 mg/dL (8.4-10.2) L 07/18/18 03:54 Assessment and Plan Impression * End-stage renal disease on maintenance hemodialysis * Hyperkalemia * Anasarca * Noncompliance * Anemia secondary to ESRD * Pleural effusion as well as ascites. * Need to rule out pericardial effusion Recommendations * Urgent hemodialysis has been arranged. Remove fluid as tolerated * Patient is significantly volume overloaded. Plan to dialyze him daily and remove fluid * Order an echocardiogram to rule out pericardial effusion * Procrit with dialysis * Binders with meals * Avoid nephrotoxins * Monitor fluid status and electrolytes closely * No IV, BP or venipuncture in his access arm * Thank you very much for the consultation. Shall follow along with you
[2018-07-18 11:28] LABS: Platelet Count 141 K/mm3 (140-440)
[2018-07-18] MEDS ORDERED: NACL 0.9 (PRIMING MACHINE ONLY DIALYSIS) MC ONE (13:35)
[2018-07-18] MEDS ORDERED: PROVENTIL IH PRN (14:39)
--- NOTE | 2018-07-18 14:46 | History and Physical Report ---
History of Present Illness Date of examination: 07/18/18 Date of admission: 07/18/18 09:47 Chief complaint: Lower extremity pain History of present illness: Patient is a 28-year-old male with past medical history significant for hypertension , end-stage renal disease and noncompliance presented to the emergency room with weakness in his lower extremities. Patient states that he fell down and therefore came to the emergency room. He normally dialyzes on TTS schedule as outpatient. States that his last dialysis treatment was on . He was also hospitalized recently at [facility]. In the emergency room he is found to be hyperkalemic and significantly volume overloaded and therefore being admitted for further management. The patient is a poor historian and has h/o frequent admissions. Past History Past Medical History: anemia, arthritis, CAD, diabetes, hypertension, other (PULMONARY htn) Past Surgical History: Other (PCI) Social history: lives with family, smoking, full code. denies: IV drug use Family history: no significant family history Review of Systems Constitutional: fatigue, no fever, no chills, no sweats, no night sweats, no anorexia, no weakness, no malaise, no poor appetite Cardiovascular: chest pain, orthopnea, palpitations, edema, syncope Respiratory: + shortness of breath, dyspnea on exertion, on home oxygen, no cough, no cough with sputum, no congestion, no wheezing, no pleurisy, no pain on inspiration, no snoring Gastrointestinal: abdominal pain, no nausea, no vomiting, no diarrhea, no constipation, no change in bowel habits, no coffee ground emesis Rectal: no pain, no incontinence, no bleeding Musculoskeletal: no neck stiffness, no neck pain, no shooting arm pain, no arm numbness/tingling, no morning stiffness, no muscle weakness, no fractures, no loss of height Integumentary: no pruritis, no wounds, no jaundice, no lesions, no darkening of skin, no acne Neurological: no transient paralysis, no weakness, no numbness, no tingling, no syncope, no tic, no aphasia, no confusion Psychiatric: anxiety, no memory loss, no change in sleep habits, no insomnia, no hypersomnia Endocrine: no heat intolerance, no excessive thirst, no nocturia, no weight change, no proptosis, no deepening of the voice, no high blood sugars, no low blood sugars Allergic/Immunologic: no urticaria, no allergic rhinitis Past History Past Medical History: dialysis, ESRD, hypertension Past Surgical History: Other (history of creation of AV fistula as well as PD catheter) Social history: no significant social history Family history: no significant family history Medications and Allergies Allergies Allergy/AdvReac Type Severity Reaction Status Date / Time heparin Allergy lowers Verified 07/02/18 15:17 platelets Home Medications Medication Instructions Recorded Confirmed Last Taken Type Esomeprazole Magnesium [Nexium] 40 mg PO DAILY #30 capsule. 03/27/18 08/08/18 08/08/18 Rx Folic Acid/Vit B Comp W-C [Renal 1 cap PO QDAY #60 capsule 03/27/18 08/08/18 08/08/18 Rx Caps] hydrALAZINE [Apresoline TAB] 100 mg PO TID #90 tab 03/27/18 08/08/18 08/08/18 Rx traZODone [Desyrel] 100 mg PO QHS #30 tablet 03/27/18 08/08/18 08/08/18 Rx NIFEdipine [Adalat cc] 90 mg PO BID 04/11/18 08/08/18 08/08/18 History Diclofenac Sodium [Voltaren] 100 gm TP Q6H #1 gel..gram. 04/21/18 08/08/18 08/08/18 Rx ALBUTEROL NEB's [Proventil 0.083% 2.5 mg IH Q4HRT PRN nebu 05/19/18 08/08/18 08/08/18 Rx NEBS] Aspirin EC 81 mg PO QDAY tablet 05/19/18 08/08/18 08/08/18 Rx AtorvaSTATin [Lipitor] 40 mg PO QHS tablet 05/19/18 08/08/18 08/08/18 Rx Carvedilol [Coreg] 25 mg PO BID tablet 05/19/18 08/08/18 08/08/18 Rx Oxycodone HCl/Acetaminophen 1 each PO Q6HR PRN #12 tablet 06/26/18 08/08/18 08/08/18 Rx [Percocet 7.5/325 mg] ALPRAZolam [Xanax TAB] 0.5 mg PO Q12HR #10 tablet 07/07/18 08/08/18 08/08/18 Rx Gabapentin [Neurontin] 100 mg PO Q8HR #90 capsule 07/07/18 08/08/18 08/08/18 Rx Active Meds: Active Medications Albuterol (Proventil) 2.5 mg IH Q4HRT PRN PRN Reason: Shortness Of Breath Alprazolam (Xanax) 0.5 mg PO Q12HR CHONG Aspirin (Halfprin Ec) 81 mg PO QDAY CHONG Atorvastatin Calcium (Lipitor) 40 mg PO QHS [facility] Carvedilol (Coreg) 25 mg PO BID CHONG Gabapentin (Neurontin) 100 mg PO Q8HR CHONG Hydralazine HCl (Apresoline) 100 mg PO TID CHONG Sodium Chloride (Nacl 0.9%) 100 mls @ 999 mls/hr IV APRIL PRN PRN Reason: Hypotension Miscellaneous Medication (Esomeprazole Magnesium [Nexium]) 40 mg PO DAILY [facility] Multivit/Ca Carb/B Cmplx/FA/Prenat (Renal Caps) 1 cap PO QDAY CHONG Trazodone HCl (Desyrel) 100 mg PO QHS CHONG Exam - Physical Exam Narrative exam: GENERAL: The patient is well-developed well-nourished male In mild distress HEENT: Normocephalic. Atraumatic. Extraocular motions are intact. Patient has moist mucous membranes. NECK: Supple. Trachea midline CHEST/LUNGS: Occasional coarse breath sounds. Diminished breath sounds at the lung base. HEART/CARDIOVASCULAR: Regular. There is no tachycardia. There is no gallop rub or murmur. ABDOMEN: Abdomen is soft, nontender. Patient has normal bowel sounds. There is no abdominal distention. SKIN: There is no rash. There is no diaphoresis. NEURO: The patient is awake, alert, and oriented. The patient is cooperative. The patient has normal speech MUSCULOSKELETAL: There is no evidence of acute injury. - Constitutional Vitals: Temp Pulse Resp BP Pulse Ox 98.1 F 69 20 167/93 97 07/18/18 13:58 07/18/18 13:58 07/18/18 13:58 07/18/18 13:30 07/18/18 13:30 Results - Labs CBC & Chem 7: 07/18/18 03:54 07/18/18 16:04 Labs: Abnormal lab results 07/18/18 07/18/18 Range/Units 03:54 03:54 RBC 2.69 L (3.65-5.03) M/mm3 Hgb 7.6 L (11.8-15.2) gm/dl Hct 23.0 L (35.5-45.6) % RDW 21.4 H (13.2-15.2) % Lymph % (Auto) 11.8 L (13.4-35.0) % Rice % (Auto) 8.4 H (0.0-7.3) % Lymph # 1.0 L (1.2-5.4) K/mm3 Seg Neutrophils % 76.9 H (40.0-70.0) % Sodium 135 L (137-145) mmol/L Potassium 7.4 H* (3.6-5.0) mmol/L Chloride 91.7 L (98-107) mmol/L BUN 68 H (9-20) mg/dL Creatinine 9.3 H (0.8-1.5) mg/dL Glucose 74 L (75-100) mg/dL Calcium 7.9 L (8.4-10.2) mg/dL Assessment and Plan Acute on chronic hypoxic respiratory failure; secondary to fluid overload End-stage renal disease on hemodialysis Hyperkalemia; due to ESRD, management per nephrology Nonischemic Dilated cardiomyopathy; ejection fraction 15 - 20% Recurrent Bilateral pleural effusion Pancytopenia chronic, hypertension; moderate control, Tobacco use disorder: Medical noncompliance; Chronic Ascities Plan Admit to telemetry Nephrology consult, emergent dialysis Resume home meds, repeat BMP DVT/GI prophy
[2018-07-18] MEDS ORDERED: TYLENOL PO PRN (19:09)
[2018-07-18 20:00] VITALS: BP 161/84
[2018-07-18] MEDS ORDERED: APRESOLINE PO SCH (20:00)
--- NOTE | 2018-07-18 20:27 | Event Note ---
Date: 07/18/18 Received call from pt's primary RN. Pt has requested to leave AMA. Pt was advised regarding his condition and still insist on leaving. RIJ has been removed, and AMA paperwork has been signed.
[2018-07-18] MEDS ORDERED: XANAX PO SCH (22:00)
[2018-07-18] MEDS ORDERED: DESYREL PO SCH (22:00)
[2018-07-18] MEDS ORDERED: NEURONTIN PO SCH (22:00)
[2018-07-18] MEDS ORDERED: COREG PO SCH (22:00)
[2018-07-19] MEDS ORDERED: NON-FORMULARY (Esomeprazole Magnesium [Nexium] 40 MG) PO SCH (10:00)
[2018-07-19] MEDS ORDERED: PROTONIX PO SCH (10:00)
[2018-07-19] MEDS ORDERED: HALFPRIN EC PO SCH (10:00)
[2018-07-19] MEDS ORDERED: Renal Caps PO SCH (10:00)
== END 2018-07-18 21:00 | disposition left against medical advice (07) | DRG 189 ==
LOC: ED 02:42 → 3B-SURG 09:47 → 4A 10:34
PROVIDERS: ADMIT Specialist; ATTEND Internal Medicine
PROC: 5A1D70Z Performance of Urinary Filtration, Intermittent, Less than 6 Hours Per Day (ICD-10-PCS; principal; 2018-07-18)
DX: J96.21 Acute and chronic respiratory failure with hypoxia (principal); N18.6 End stage renal disease; I13.2 Hypertensive heart and chronic kidney disease with heart failure and with stage 5 chronic kidney disease, or end stage renal disease; R18.8 Other ascites; I42.0 Dilated cardiomyopathy; D61.818 Other pancytopenia; E87.5 Hyperkalemia; I50.9 Heart failure, unspecified; Z53.21 Procedure and treatment not carried out due to patient leaving prior to being seen by health care provider; D63.1 Anemia in chronic kidney disease; K21.9 Gastro-esophageal reflux disease without esophagitis; I25.10 Atherosclerotic heart disease of native coronary artery without angina pectoris; W18.30XA Fall on same level, unspecified, initial encounter; E11.22 Type 2 diabetes mellitus with diabetic chronic kidney disease; Z79.51 Long term (current) use of inhaled steroids; Z79.899 Other long term (current) drug therapy; Z79.01 Long term (current) use of anticoagulants; Z88.8 Allergy status to other drugs, medicaments and biological substances; Z99.2 Dependence on renal dialysis; Z95.828 Presence of other vascular implants and grafts; Z90.49 Acquired absence of other specified parts of digestive tract; Z87.891 Personal history of nicotine dependence; Z91.15 Patient's noncompliance with renal dialysis; Z79.82 Long term (current) use of aspirin; Y93.89 Activity, other specified; Y92.098 Other place in other non-institutional residence as the place of occurrence of the external cause; Y99.8 Other external cause status; Z79.84 Long term (current) use of oral hypoglycemic drugs
CPT/HCPCS: 36415; 70450; 71045; 72125; 72170; 80048; 80320; 82550; 83735; 84132; 85025; 93005; 93010; G0378; G0480; J0610; J1815; J7030

== ENCOUNTER 2018-08-08 20:09 | Inpatient (IN) | payer MEDICARE ==
[2018-08-08] MEDS ORDERED: MORPHINE IV ONE (21:22)
[2018-08-08] MEDS ORDERED: ZOFRAN IV ONE (21:22)
[2018-08-08 21:24] LABS: Albumin 3.7 g/dL (3.9-5); Calcium 8.7 mg/dL (8.4-10.2)
[2018-08-08 21:27] LABS: Hematocrit 25.7 % (35.5-45.6); Hemoglobin 8.4 gm/dl (11.8-15.2); Mean Corpuscular HGB Conc 33 % (32-34); Mean Corpuscular Volume 87 fl (84-94); Red Blood Count 2.95 M/mm3 (3.65-5.03); Red Cell Distribution Width 20.3 % (13.2-15.2)
[2018-08-08 21:28] LABS: Basophils # (Auto) 0.1 K/mm3 (0.0-0.1); Basophils % (Auto) 1.2 % (0.0-1.8); Eosinophils # (Auto) 0.2 K/mm3 (0.0-0.4); Lymphocytes # (Auto) 1.3 K/mm3 (1.2-5.4); Lymphocytes % (Auto) 20.2 % (13.4-35.0); Monocytes # (Auto) 0.5 K/mm3 (0.0-0.8); Monocytes % (Auto) 7.3 % (0.0-7.3); Platelet Count 167 K/mm3 (140-440)
--- NOTE | 2018-08-08 21:31 | Emergency Department Report ---
ED Abdominal Pain HPI - General Chief Complaint: Dyspnea/Respdistress Stated Complaint: SOB,FATIGUE,ABDOMINAL/BACK/LEG PAIN Time Seen by Provider: 08/08/18 20:50 Source: patient Mode of arrival: Ambulatory Limitations: Physical Limitation - History of Present Illness Initial Comments: Fidel is a 28-year-old gentleman with history of hypertension, congestive heart failure, ESRD disease on dialysis Tuesday who presents with shortness of breath and left lower quadrant abdominal pain. Gradual onset of symptoms today. He was so ill that he was unable to obtain dialysis today. He is followed by [facility]. He is concerned that his ascites has worsened. His abdomen has greatly increased in size. Moderately severe LLQ abdominal pain worse with palpation. Earlier this year, admitted to the hospital for small bowel obstruction. MD Complaint: abdominal pain -: Gradual Location: LLQ Radiation: none Migration to: no migration Severity: severe Severity scale (0 -10): 8 Quality: cramping, aching Consistency: constant Worsens With: movement, other (palpation) - Related Data Home Medications Medication Instructions Recorded Confirmed Last Taken NIFEdipine [Adalat cc] 90 mg PO BID 04/11/18 07/18/18 07/17/18 20:00 Previous Rx's Medication Instructions Recorded Last Taken Type Esomeprazole Magnesium [Nexium] 40 mg PO DAILY #30 capsule. 03/27/18 07/17/18 09:00 Rx Folic Acid/Vit B Comp W-C [Renal 1 cap PO QDAY #60 capsule 03/27/18 07/03/18 08:00 Rx Caps] hydrALAZINE [Apresoline TAB] 100 mg PO TID #90 tab 03/27/18 07/17/18 20:00 Rx traZODone [Desyrel] 100 mg PO QHS #30 tablet 03/27/18 07/17/18 20:00 Rx Diclofenac Sodium [Voltaren] 100 gm TP Q6H #1 gel..gram. 04/21/18 05/31/18 Rx ALBUTEROL NEB's [Proventil 0.083% 2.5 mg IH Q4HRT PRN nebu 05/19/18 07/03/18 20 :00 Rx NEBS] Aspirin EC 81 mg PO QDAY tablet 05/19/18 05/31/18 Rx AtorvaSTATin [Lipitor] 40 mg PO QHS tablet 05/19/18 07/17/18 20:00 Rx Carvedilol [Coreg] 25 mg PO BID tablet 05/19/18 07/17/18 20:00 Rx Oxycodone HCl/Acetaminophen 1 each PO Q6HR PRN #12 tablet 06/26/18 Unknown Rx [Percocet 7.5/325 mg] ALPRAZolam [Xanax TAB] 0.5 mg PO Q12HR #10 tablet 07/07/18 Unknown Rx Gabapentin [Neurontin] 100 mg PO Q8HR #90 capsule 07/07/18 Unknown Rx Allergies Allergy/AdvReac Type Severity Reaction Status Date / Time heparin Allergy lowers Verified 07/02/18 15:17 platelets ED Review of Systems ROS: Stated complaint: SOB,FATIGUE,ABDOMINAL/BACK/LEG PAIN Other details as noted in HPI Comment: All other systems reviewed and negative Constitutional: denies: fever, malaise Respiratory: shortness of breath Gastrointestinal: abdominal pain ED Past Medical Hx - Past Medical History Previous Medical History?: Yes Hx Hypertension: Yes Hx Heart Attack/AMI: No Hx Congestive Heart Failure: Yes (4LPM at home) Hx Diabetes: No Hx Deep Vein Thrombosis: No Hx Pulmonary Embolism: No Hx GERD: Yes Hx Renal Disease: Yes (ESRD -) Hx Arthritis: Yes (SPINE) Hx Asthma: No Hx COPD: No Hx Tuberculosis: No Hx Dementia: No Hx HIV: No Additional medical history: Hidradenitis, EJF 40%, enlarged heart - Surgical History Past Surgical History?: Yes Hx Pacemaker: No Hx Cholecystectomy: No Hx Appendectomy: No Hx Breast Surgery: No Additional Surgical History: PD CATHETER - AND REMOVAL. AV FISTULA. LYMPH NODES REMOVED LEFT GROIN. TONSILLECTOMY. Patient does have a history of peritonitis with previous PD - Social History Smoking Status: Former Smoker Substance Use Type: None - Medications Home Medications: Home Medications Medication Instructions Recorded Confirmed Last Taken Type Esomeprazole Magnesium [Nexium] 40 mg PO DAILY #30 capsule. 03/27/18 07/18/18 07/17/18 09:00 Rx Folic Acid/Vit B Comp W-C [Renal 1 cap PO QDAY #60 capsule 03/27/18 07/18/18 07/03/18 08:00 Rx Caps] hydrALAZINE [Apresoline TAB] 100 mg PO TID #90 tab 03/27/18 07/18/18 07/17/18 20:00 Rx traZODone [Desyrel] 100 mg PO QHS #30 tablet 03/27/18 07/18/18 07/17/18 20:00 Rx NIFEdipine [Adalat cc] 90 mg PO BID 04/11/18 07/18/18 07/17/18 20:00 History Diclofenac Sodium [Voltaren] 100 gm TP Q6H #1 gel..gram. 04/21/18 07/18/18 05/31/18 Rx ALBUTEROL NEB's [Proventil 0.083% 2.5 mg IH Q4HRT PRN nebu 05/19/18 07/18/18 07/03/18 20:00 Rx NEBS] Aspirin EC 81 mg PO QDAY tablet 05/19/18 07/18/18 05/31/18 Rx AtorvaSTATin [Lipitor] 40 mg PO QHS tablet 05/19/18 07/18/18 07/17/18 20:00 Rx Carvedilol [Coreg] 25 mg PO BID tablet 05/19/18 07/18/18 07/17/18 20:00 Rx Oxycodone HCl/Acetaminophen 1 each PO Q6HR PRN #12 tablet 06/26/18 07/18/18 Unknown Rx [Percocet 7.5/325 mg] ALPRAZolam [Xanax TAB] 0.5 mg PO Q12HR #10 tablet 07/07/18 07/18/18 Unknown Rx Gabapentin [Neurontin] 100 mg PO Q8HR #90 capsule 07/07/18 07/18/18 Unknown Rx ED Physical Exam - General Limitations: No Limitations General appearance: alert, in no apparent distress, other (pleasant articulate and appears chronically ill) - Head Head exam: Present: atraumatic, normocephalic - Eye Eye exam: Present: normal appearance - ENT ENT exam: Present: mucous membranes moist - Neck Neck exam: Present: normal inspection, full ROM - Respiratory Respiratory exam: Present: normal lung sounds bilaterally. Absent: respiratory distress, wheezes, rales, rhonchi - Cardiovascular Cardiovascular Exam: Present: regular rate, normal rhythm, normal heart sounds. Absent: systolic murmur, diastolic murmur, rubs, gallop - GI/Abdominal GI/Abdominal exam: Present: soft, distended, tenderness (LLQ), guarding (voluntary), normal bowel sounds - Rectal Rectal exam: Present: deferred - Extremities Exam Extremities exam: Present: normal inspection - Back Exam Back exam: Present: normal inspection - Neurological Exam Neurological exam: Present: alert, oriented X3 - Psychiatric Psychiatric exam: Present: normal affect, normal mood - Skin Skin exam: Present: warm, dry, intact, pallor. Absent: rash ED Course Vital Signs 08/08/18 08/08/18 08/08/18 20:22 20:30 20:39 Temperature 97.5 F L 97.5 F L Pulse Rate 76 76 71 Respiratory 18 18 21 Rate Blood Pressure 159/82 Blood Pressure 159/82 [Right] O2 Sat by Pulse 93 93 96 Oximetry 08/08/18 08/08/18 08/08/18 20:45 21:00 21:15 Temperature Pulse Rate 67 69 69 Respiratory 19 23 23 Rate Blood Pressure 167/90 161/91 156/94 Blood Pressure [Right] O2 Sat by Pulse 97 97 97 Oximetry 08/08/18 21:20 Temperature Pulse Rate Respiratory Rate Blood Pressure Blood Pressure [Right] O2 Sat by Pulse 96 Oximetry ED Medical Decision Making - Lab Data Result diagrams: 08/08/18 20:47 08/08/18 20:47 Laboratory Results - last 24 hr 08/08/18 08/08/18 08/08/18 20:47 20:47 21:10 WBC 6.6 RBC 2.95 L Hgb 8.4 L Hct 25.7 L MCV 87 MCH 28 MCHC 33 RDW 20.3 H Plt Count 167 Lymph % (Auto) 20.2 [place] % (Auto) 7.3 Eos % (Auto) 3.0 Baso % (Auto) 1.2 Lymph # 1.3 [place] # 0.5 Eos # 0.2 Baso # 0.1 Seg Neutrophils % 68.3 Seg Neutrophils # 4.5 Sodium 142 Potassium 5.5 H Chloride 100.2 Carbon Dioxide 25 Anion Gap 22 BUN 70 H Creatinine 9.0 H Estimated GFR 7 BUN/Creatinine Ratio 8 Glucose 71 L Calcium 8.7 Total Bilirubin 0.50 AST 38 ALT 28 Alkaline Phosphatase 100 Troponin T 0.326 H* NT-Pro-B Natriuret Pep > 98381 H Total Protein 8.9 H Albumin 3.7 L Albumin/Globulin Ratio 0.7 Triglycerides 56 Cholesterol 96 LDL Cholesterol Direct 43 L HDL Cholesterol 43 Cholesterol/HDL Ratio 2.23 - EKG Data 08/08/18 21:38 EKG obtained 2115 Normal sinus rhythm rate rate 65 beats a minute normal axis normal QT interval nonspecific T wave pattern no ST elevation - Radiology Data Radiology results: report reviewed CT abdomen and pelvis reveals large amount of ascites, pericardial effusion, bilateral pleural effusion, no acute inflammatory process. - Medical Decision Making Mr. Tuesday presents with shortness of breath multifactorial with history of end- stage renal disease and cardiomyopathy. CT revealed pleural effusions pericardial effusion and ascites . Will benefit from paracentesis and hemodialysis. I consulted Dr. Watts marine engine machinist apprentice who will arrange hemodialysis in the morning. She recommended by mouth Kayexalate. Admit is also service in stable condition. Critical care attestation.: If time is entered above; I have spent that time in minutes in the direct care of this critically ill patient, excluding procedure time. ED Disposition Clinical Impression: Acute and chronic respiratory failure, Bilateral pleural effusion, Ascites, Cardiomyopathy, Pericardial effusion without cardiac tamponade, Volume overload, End-stage renal disease on hemodialysis Disposition: OP ADMIT IP TO THIS HOSP Is pt being admited?: Yes Does the pt Need Aspirin: No Condition: Stable
[2018-08-08] MEDS ORDERED: KIONEX PO ONE (21:47)
[2018-08-08 22:19] LABS: Chol/HDL Ratio 2.23 %; HDL Cholesterol 43 mg/dL (40-59); LDL Cholesterol,Direct 43 mg/dL (50-130)
--- NOTE | 2018-08-08 22:49 | XRay Report ---
PROCEDURE: XR CHEST 1V AP TECHNIQUE: Chest radiograph single view. HISTORY: Dyspnea COMPARISONS: 07/18/2018 . FINDINGS: Heart: The heart is enlarged. Mediastinum/Vessels: There is enlargement of the right hilum which could be due to adenopathy or mass .. Lungs/Pleural space: There are bilateral lower lobe infiltrates and pleural effusions.. Appearance i s similar to prior study. There is no pneumothorax. Bony thorax: No acute osseous abnormality. Life support devices: None. IMPRESSION: The heart is enlarged. There is enlargement of the right hilum which could be due to adenopathy or mass.. There are bilateral lower lobe infiltrates and pleural effusions.. Appearance is similar to prior heidy dy. There is no pneumothorax.. This document is electronically signed by Emmett Messer MD., Aug 08 2018 10:47:46 PM ET
--- NOTE | 2018-08-08 22:57 | Cat Scan Report ---
PROCEDURE: CT ABDOMEN PELVIS WO CON TECHNIQUE: Computerized axial tomography of the abdomen and pelvis was performed without intravenous contrast. This study is performed without intravascular contrast material and its sensitivity for ab dominal and pelvic pathology, including neoplasms, inflammation, abscess, free fluid, thrombosis, art erial dissection and infarction, is reduced compared with a contrast enhanced study. CT DOSE LENGTH PRODUCT: 1555.1 mGycm HISTORY: LLQ abd pain COMPARISONS: None . FINDINGS: Visualized lower thorax: The heart is enlarged. There is a pericardial effusion. There are bilateral pleural effusions causing atelectasis at the lung bases.. Liver: Normal size and attenuation. Spleen: Normal size and attenuation. Gallbladder and biliary system: Normal. Pancreas: Normal. Adrenals: Normal. Kidneys: The kidneys are atrophic.. GI tract: There is no bowel obstruction or bowel wall thickening. The appendix is normal. Lymph nodes and mesentery: Normal. Vasculature: There is diffuse calcified atherosclerosis. There is no aneurysm.. Bladder: Normal. Reproductive organs: Normal. Peritoneum: There is a large amount of ascites. There is no free air.. Musculoskeletal structures: There is generalized sclerosis of the bony structures most likely due to renal osteodystrophy.. Other: There is generalized subcutaneous edema suggesting heart failure or fluid overload.. IMPRESSION: The heart is enlarged. There is a pericardial effusion. There are bilateral pleural effusions causing atelectasis at the lung bases. The kidneys are atrophic. There is no bowel obstruction or bowel wall thickening. The appendix is normal. There is diffuse calcified atherosclerosis. There is no aneurysm. There is a large amount of ascites. There is no free air. There is generalized sclerosis of the bony structures most likely due to renal osteodystrophy. There is generalized subcutaneous edema suggesting heart failure or fluid overload. This document is electronically signed by Emmett Messer MD., Aug 08 2018 10:55:45 PM ET
[2018-08-09] MEDS ORDERED: ZOFRAN IV PRN (00:08)
[2018-08-09] MEDS ORDERED: TYLENOL PO PRN (00:08)
[2018-08-09] MEDS ORDERED: D50W (25GM) Syringe IV PRN (00:08)
[2018-08-09] MEDS ORDERED: SODIUM CHLORIDE FLUSH SYRINGE 10 ML IV PRN (00:08)
--- NOTE | 2018-08-09 00:19 | History and Physical Report ---
<CONNIE MORALES - Last Filed: 08/09/18 04:21> History of Present Illness Date of examination: 08/09/18 Date of admission: 08/08/18 23:34 Chief complaint: Abdominal the pain History of present illness: Patient is a 28-year-old male with PMHx of HTN, ESRD on HD, CHF, anemia who presents to the ER with complaints of abdominal pain, SOB and generalized body ache. Patient states that the pain started the day before, he was unable to get out of bed this morning to go to dialysis, he missed his dialysis treatment today, he decided to come to the ER for evaluation. In the ER patient was complains of diffuse severe abdominal pain 10 out of 10 with increase in gut size, his abdomen is distended and firm, tender. Pt states that the pain is mostly located in the right lower quadrant associated with nausea and vomiting, he had several episodes of vomiting prior to coming to the ER. He denied fever, denied excessive couple of consciousness, denies headache, denies dizziness. His laboratory values showed a BNP of 35,000, his BUN was 70, creatinine 9.0, potassium 5.5 and his blood pressure was 190 169/95. Patient followed with [facility], the solution spec doctor was called, he recommended admission and urgent hemodialysis tonight. Patient was admitted and started hemodialysis. Past History Past Medical History: ESRD, heart failure, hypertension, renal failure Past Surgical History: No surgical history Social history: no significant social history Family history: no significant family history Medications and Allergies Allergies Allergy/AdvReac Type Severity Reaction Status Date / Time heparin Allergy lowers Verified 07/02/18 15:17 platelets Home Medications Medication Instructions Recorded Confirmed Last Taken Type Esomeprazole Magnesium [Nexium] 40 mg PO DAILY #30 capsule. 03/27/18 08/08/18 08/08/18 Rx Folic Acid/Vit B Comp W-C [Renal 1 cap PO QDAY #60 capsule 03/27/18 08/08/18 08/08/18 Rx Caps] hydrALAZINE [Apresoline TAB] 100 mg PO TID #90 tab 03/27/18 08/08/18 08/08/18 Rx traZODone [Desyrel] 100 mg PO QHS #30 tablet 03/27/18 08/08/18 08/08/18 Rx NIFEdipine [Adalat cc] 90 mg PO BID 04/11/18 08/08/18 08/08/18 History Diclofenac Sodium [Voltaren] 100 gm TP Q6H #1 gel..gram. 04/21/18 08/08/18 08/08/18 Rx ALBUTEROL NEB's [Proventil 0.083% 2.5 mg IH Q4HRT PRN nebu 05/19/18 08/08/18 08/08/18 Rx NEBS] Aspirin EC 81 mg PO QDAY tablet 05/19/18 08/08/18 08/08/18 Rx AtorvaSTATin [Lipitor] 40 mg PO QHS tablet 05/19/18 08/08/18 08/08/18 Rx Carvedilol [Coreg] 25 mg PO BID tablet 05/19/18 08/08/18 08/08/18 Rx Oxycodone HCl/Acetaminophen 1 each PO Q6HR PRN #12 tablet 06/26/18 08/08/18 08/08/18 Rx [Percocet 7.5/325 mg] ALPRAZolam [Xanax TAB] 0.5 mg PO Q12HR #10 tablet 07/07/18 08/08/18 08/08/18 Rx Gabapentin [Neurontin] 100 mg PO Q8HR #90 capsule 07/07/18 08/08/18 08/08/18 Rx Active Meds: Active Medications Acetaminophen (Tylenol) 650 mg PO Q4H PRN PRN Reason: Pain MILD(1-3)/Fever >100.5/JENKINS Dextrose (D50w (25gm) Syringe) 50 ml IV PRN PRN PRN Reason: Hypoglycemia Enoxaparin Sodium (Lovenox) 30 mg SUB-Q QDAY [facility] Famotidine (Pepcid) 20 mg PO BID [facility] Insulin Human Lispro (Humalog) 0 unit SUB-Q ACHS [facility]; Protocol Ondansetron HCl (Zofran) 4 mg IV Q8H PRN PRN Reason: Nausea And Vomiting Sodium Chloride (Sodium Chloride Flush Syringe 10 Ml) 10 ml IV BID [facility] Sodium Chloride (Sodium Chloride Flush Syringe 10 Ml) 10 ml IV PRN PRN PRN Reason: LINE FLUSH Review of Systems Constitutional: anorexia, weakness Gastrointestinal: abdominal pain, nausea, vomiting Exam - Constitutional Vitals: Temp Pulse Resp BP Pulse Ox 97.5 F L 70 22 157/90 92 08/08/18 20:30 08/08/18 21:45 08/08/18 21:45 08/08/18 21:45 08/08/18 21:45 General appearance: Present: mild distress - EENT Eyes: Present: EOM intact ENT: hearing intact, clear oral mucosa - Neck Neck: Present: normal ROM - Respiratory Respiratory effort: normal Respiratory: bilateral: CTA - Cardiovascular Rhythm: regular Heart Sounds: Present: S1 & S2 - Extremities Extremities: no ischemia, Full ROM Extremity abnormal: edema (trace edema in lower extremity) Peripheral Pulses: within normal limits - Abdominal General gastrointestinal: Present: tender, distended, rigid Localized gastrointestinal: tender: diffuse, guarding: diffuse Male genitourinary: Present: deferred - Rectal Rectal Exam: deferred Results - Labs CBC & Chem 7: 08/08/18 20:47 08/08/18 20:47 Labs: Laboratory Last Values WBC 6.6 K/mm3 (4.5-11.0) 08/08/18 20:47 RBC 2.95 M/mm3 (3.65-5.03) L 08/08/18 20:47 Hgb 8.4 gm/dl (11.8-15.2) L 08/08/18 20:47 Hct 25.7 % (35.5-45.6) L 08/08/18 20:47 MCV 87 fl (84-94) 08/08/18 20:47 MCH 28 pg (28-32) 08/08/18 20:47 MCHC 33 % (32-34) 08/08/18 20:47 RDW 20.3 % (13.2-15.2) H 08/08/18 20:47 Plt Count 167 K/mm3 (140-440) 08/08/18 20:47 Lymph % (Auto) 20.2 % (13.4-35.0) 08/08/18 20:47 [place] % (Auto) 7.3 % (0.0-7.3) 08/08/18 20:47 Eos % (Auto) 3.0 % (0.0-4.3) 08/08/18 20:47 Baso % (Auto) 1.2 % (0.0-1.8) 08/08/18 20:47 Lymph # 1.3 K/mm3 (1.2-5.4) 08/08/18 20:47 [place] # 0.5 K/mm3 (0.0-0.8) 08/08/18 20:47 Eos # 0.2 K/mm3 (0.0-0.4) 08/08/18 20:47 Baso # 0.1 K/mm3 (0.0-0.1) 08/08/18 20:47 Seg Neutrophils % 68.3 % (40.0-70.0) 08/08/18 20:47 Seg Neutrophils # 4.5 K/mm3 (1.8-7.7) 08/08/18 20:47 Sodium 142 mmol/L (137-145) 08/08/18 20:47 Potassium 5.5 mmol/L (3.6-5.0) H 08/08/18 20:47 Chloride 100.2 mmol/L (98-107) 08/08/18 20:47 Carbon Dioxide 25 mmol/L (22-30) 08/08/18 20:47 22 mmol/L 08/08/18 20:47 BUN 70 mg/dL (9-20) H 08/08/18 20:47 9.0 mg/dL (0.8-1.5) H 08/08/18 20:47 Estimated GFR 7 ml/min 08/08/18 20:47 8 % 08/08/18 20:47 Glucose 71 mg/dL (75-100) L 08/08/18 20:47 Calcium 8.7 mg/dL (8.4-10.2) 08/08/18 20:47 0.50 mg/dL (0.1-1.2) 08/08/18 20:47 AST 38 units/L (5-40) 08/08/18 20:47 ALT 28 units/L (7-56) 08/08/18 20:47 100 units/L (35-129) 08/08/18 20:47 0.326 ng/mL (0.00-0.029) H* 08/08/18 21:10 NT-Pro-B Natriuret Pep > 75730 pg/mL (0-450) H 08/08/18 21:10 8.9 g/dL (6.3-8.2) H 08/08/18 20:47 3.7 g/dL (3.9-5) L 08/08/18 20:47 0.7 % 08/08/18 20:47 Triglycerides 56 mg/dL (2-149) 08/08/18 21:10 Cholesterol 96 mg/dL (50-199) 08/08/18 21:10 43 mg/dL (50-130) L 08/08/18 21:10 43 mg/dL (40-59) 08/08/18 21:10 2.23 % 08/08/18 21:10 Assessment and Plan Assessment and plan: 1. Intractable abdominal pain (due to ascites) 2. Abdominal ascites 3. Nausea and vomiting (likely due to uremia) 4. ESRD on HD (missed HD) 5. Hyperkalemia 6. Anemia (due to CKD) 7. CHF (BNP 35,000) 8. Accelerated hypertension Plan: Patient is admitted for abdominal pain and dialysis treatment Consult nephrology for dialysis management Morphine when necessary for pain control BP controlled with hydralazine PRN Consult interventional radiology for paracentesis Continue home meds DVT prophylaxis with SCD Further plan per hospital course Plan was discussed with patient, voiced understanding this Patient's condition and plan of care discussed with Dr. Salgado Advance Directives: Yes VTE prophylaxis?: Mechanical Plan of care discussed with patient/family: Yes <AMADO SALGADO - Last Filed: 08/18/18 06:51> History of Present Illness Date of admission: 08/08/18 23:34 Medications and Allergies Active Meds: Active Medications Acetaminophen (Tylenol) 650 mg PO Q4H PRN PRN Reason: Pain MILD(1-3)/Fever >100.5/JENKINS Albuterol (Proventil) 2.5 mg IH Q4HRT PRN PRN Reason: Shortness Of Breath Alprazolam (Xanax) 0.5 mg PO Q12HR [facility] Aspirin (Halfprin Ec) 81 mg PO QDAY [facility] Atorvastatin Calcium (Lipitor) 40 mg PO QHS [facility] Carvedilol (Coreg) 25 mg PO BID [facility] Dextrose (D50w (25gm) Syringe) 50 ml IV PRN PRN PRN Reason: Hypoglycemia Enoxaparin Sodium (Lovenox) 30 mg SUB-Q QDAY [facility] Gabapentin (Neurontin) 100 mg PO Q8HR [facility] Hydralazine HCl (Apresoline) 100 mg PO TID [facility] Insulin Human Lispro (Humalog) 0 unit SUB-Q ACHS [facility]; Protocol Miscellaneous Medication (Oxycodone Hcl/Acetaminophen [Percocet 7.5/325 Mg]) 1 each PO Q6HR PRN PRN Reason: Pain Morphine Sulfate (Morphine) 2 mg IV Q3H PRN PRN Reason: Pain , Severe (7-10) Multivit/Ca Carb/B Cmplx/FA/Prenat (Renal Caps) 1 cap PO QDAY [facility] Nifedipine (Procardia Xl) 90 mg PO BID [facility] Ondansetron HCl (Zofran) 4 mg IV Q8H PRN PRN Reason: Nausea And Vomiting Pantoprazole Sodium (Protonix) 40 mg PO DAILY [facility] Sodium Chloride (Sodium Chloride Flush Syringe 10 Ml) 10 ml IV BID [facility] Sodium Chloride (Sodium Chloride Flush Syringe 10 Ml) 10 ml IV PRN PRN PRN Reason: LINE FLUSH Trazodone HCl (Desyrel) 100 mg PO QHS [facility] Exam - Constitutional Vitals: Temp Pulse Resp BP Pulse Ox 97.3 F L 69 20 169/95 96 08/09/18 00:36 08/09/18 04:15 08/09/18 01:28 08/09/18 00:36 08/09/18 04:07 Results - Labs CBC & Chem 7: 08/16/18 08:43 08/16/18 08:48 Labs: Laboratory Last Values WBC 6.6 K/mm3 (4.5-11.0) 08/08/18 20:47 RBC 2.95 M/mm3 (3.65-5.03) L 08/08/18 20:47 Hgb 8.4 gm/dl (11.8-15.2) L 08/08/18 20:47 Hct 25.7 % (35.5-45.6) L 08/08/18 20:47 MCV 87 fl (84-94) 08/08/18 20:47 MCH 28 pg (28-32) 08/08/18 20:47 MCHC 33 % (32-34) 08/08/18 20:47 RDW 20.3 % (13.2-15.2) H 08/08/18 20:47 Plt Count 167 K/mm3 (140-440) 08/08/18 20:47 Lymph % (Auto) 20.2 % (13.4-35.0) 08/08/18 20:47 [place] % (Auto) 7.3 % (0.0-7.3) 08/08/18 20:47 Eos % (Auto) 3.0 % (0.0-4.3) 08/08/18 20:47 Baso % (Auto) 1.2 % (0.0-1.8) 08/08/18 20:47 Lymph # 1.3 K/mm3 (1.2-5.4) 08/08/18 20:47 [place] # 0.5 K/mm3 (0.0-0.8) 08/08/18 20:47 Eos # 0.2 K/mm3 (0.0-0.4) 08/08/18 20:47 Baso # 0.1 K/mm3 (0.0-0.1) 08/08/18 20:47 Seg Neutrophils % 68.3 % (40.0-70.0) 08/08/18 20:47 Seg Neutrophils # 4.5 K/mm3 (1.8-7.7) 08/08/18 20:47 Sodium 142 mmol/L (137-145) 08/08/18 20:47 Potassium 5.5 mmol/L (3.6-5.0) H 08/08/18 20:47 Chloride 100.2 mmol/L (98-107) 08/08/18 20:47 Carbon Dioxide 25 mmol/L (22-30) 08/08/18 20:47 22 mmol/L 08/08/18 20:47 BUN 70 mg/dL (9-20) H 08/08/18 20:47 9.0 mg/dL (0.8-1.5) H 08/08/18 20:47 Estimated GFR 7 ml/min 08/08/18 20:47 8 % 08/08/18 20:47 Glucose 71 mg/dL (75-100) L 08/08/18 20:47 Calcium 8.7 mg/dL (8.4-10.2) 08/08/18 20:47 0.50 mg/dL (0.1-1.2) 08/08/18 20:47 AST 38 units/L (5-40) 08/08/18 20:47 ALT 28 units/L (7-56) 08/08/18 20:47 100 units/L (35-129) 08/08/18 20:47 0.326 ng/mL (0.00-0.029) H* 08/08/18 21:10 NT-Pro-B Natriuret Pep > 54313 pg/mL (0-450) H 08/08/18 21:10 8.9 g/dL (6.3-8.2) H 08/08/18 20:47 3.7 g/dL (3.9-5) L 08/08/18 20:47 0.7 % 08/08/18 20:47 Triglycerides 56 mg/dL (2-149) 08/08/18 21:10 Cholesterol 96 mg/dL (50-199) 08/08/18 21:10 43 mg/dL (50-130) L 08/08/18 21:10 43 mg/dL (40-59) 08/08/18 21:10 2.23 % 08/08/18 21:10 Assessment and Plan Assessment and plan: 28-year-old man with a history of end-stage renal disease on dialysis Tuesday, , Tuesday, CHF with EF of 15%, GERD, hypertension, Chronic Respiratory Failure on 6L Home Oxygen comes to the emergency room with complaints of abdom inal pain. He has chronic abdominal pain for years but it got worse today, described as an achy pain Constant, left abdomen, no radiation but with pain medication given in the emergency room. He cannot recall that lasted his paracentesis, states been a while, state that his abdomen girth Increase because he is accumulating so much fluid. The patient did not go to dialysis today. Agree with plan as stated above for fluid overload, ascites, dialysis and paracentesis. Also, Check cardiac enzymes, patient has pericardial effusion, consult cardiology. s/p pericardiocentesis in May of this year, echo reviewed. Follow-up potassium level, status post Kayexalate
[2018-08-09] MEDS ORDERED: MORPHINE IV PRN ×2 (00:40→02:01)
[2018-08-09] MEDS ORDERED: PROVENTIL IH PRN (04:32)
[2018-08-09] MEDS ORDERED: NON-FORMULARY (Oxycodone Hcl/Acetaminophen [Percocet 7.5/325 Mg] 1 EACH) PO PRN (04:32)
[2018-08-09] MEDS ORDERED: PERCOCET 5/325 PO PRN (04:54)
[2018-08-09] MEDS: NEURONTIN PO SCH ×3 (05:31→21:19)
[2018-08-09] MEDS: MORPHINE IV PRN ×3 (05:35→21:20)
[2018-08-09 06:30] LABS: Creatine Kinase MB 6.5 ng/mL (0.0-4.0)
[2018-08-09] MEDS: HumaLOG SUB-Q SCH ×4 (07:30→23:10)
[2018-08-09] MEDS: DICLOFENAC 1% TP SCH ×3 (07:36→17:56)
--- NOTE | 2018-08-09 08:32 | Consultation ---
History of Present Illness Consult date: 08/09/18 Consult reason: other (pericardial effusion) History of present illness: This is a 28 year old male with multiple medical problems and frequent h ospitalizations. He has end stage renal disease on dialysis. He has dilated cardiomyopathy documented by cardiac cath a year ago that showed no significant coronary artery disease but a decreased left ventricular ejection fraction 15- 20% by echocardiogram. He has a history of pericardial effusion with prior pericardiocentesis. Patient also has chronic anemia, hypertension, chronic hypoxic respiratory failure on home oxygen and chronic ascites with intermittent paracentesis. Patient returns with complaints of shortness of breath, abdominal pain with nausea and vomiting, admitted with volume overload. Abdominal CT scan reports pericardial effusion, bilateral pleural effusion with a large amount of ascites. Patient did not receive dialysis yesterday but is planned for today. 12 lead [employer] is sinus rhythm with nonspecific Twave abnormalities. Past History Past Medical History: ESRD, heart failure, hypertension, renal failure Past Surgical History: No surgical history Social history: no significant social history Family history: no significant family history Medications and Allergies Allergies Allergy/AdvReac Type Severity Reaction Status Date / Time heparin Allergy lowers Verified 07/02/18 15:17 platelets Home Medications Medication Instructions Recorded Confirmed Last Taken Type Esomeprazole Magnesium [Nexium] 40 mg PO DAILY #30 capsule. 03/27/18 08/08/18 08/08/18 Rx Folic Acid/Vit B Comp W-C [Renal 1 cap PO QDAY #60 capsule 03/27/18 08/08/18 08/08/18 Rx Caps] hydrALAZINE [Apresoline TAB] 100 mg PO TID #90 tab 03/27/18 08/08/18 08/08/18 Rx traZODone [Desyrel] 100 mg PO QHS #30 tablet 03/27/18 08/08/18 08/08/18 Rx NIFEdipine [Adalat cc] 90 mg PO BID 04/11/18 08/08/18 08/08/18 History Diclofenac Sodium [Voltaren] 100 gm TP Q6H #1 gel..gram. 04/21/18 08/08/18 08/08/18 Rx ALBUTEROL NEB's [Proventil 0.083% 2.5 mg IH Q4HRT PRN nebu 05/19/18 08/08/18 08/08/18 Rx NEBS] Aspirin EC 81 mg PO QDAY tablet 05/19/18 08/08/18 08/08/18 Rx AtorvaSTATin [Lipitor] 40 mg PO QHS tablet 05/19/18 08/08/18 08/08/18 Rx Carvedilol [Coreg] 25 mg PO BID tablet 05/19/18 08/08/18 08/08/18 Rx Oxycodone HCl/Acetaminophen 1 each PO Q6HR PRN #12 tablet 06/26/18 08/08/18 08/08/18 Rx [Percocet 7.5/325 mg] ALPRAZolam [Xanax TAB] 0.5 mg PO Q12HR #10 tablet 07/07/18 08/08/18 08/08/18 Rx Gabapentin [Neurontin] 100 mg PO Q8HR #90 capsule 07/07/18 08/08/18 08/08/18 Rx Active Meds: Active Medications Acetaminophen (Tylenol) 650 mg PO Q4H PRN PRN Reason: Pain MILD(1-3)/Fever >100.5/JENKINS Albuterol (Proventil) 2.5 mg IH Q4HRT PRN PRN Reason: Shortness Of Breath Alprazolam (Xanax) 0.5 mg PO Q12HR [facility] Aspirin (Halfprin Ec) 81 mg PO QDAY [facility] Atorvastatin Calcium (Lipitor) 40 mg PO QHS [facility] Carvedilol (Coreg) 25 mg PO BID [facility] Dextrose (D50w (25gm) Syringe) 50 ml IV PRN PRN PRN Reason: Hypoglycemia Enoxaparin Sodium (Lovenox) 30 mg SUB-Q QDAY [facility] Gabapentin (Neurontin) 100 mg PO Q8HR [facility] Last Admin: 08/09/18 05:31 Dose: 100 mg Documented by: Hydralazine HCl (Apresoline) 100 mg PO TID [facility] Insulin Human Lispro (Humalog) 0 unit SUB-Q [facility]; Protocol Morphine Sulfate (Morphine) 2 mg IV Q4H PRN PRN Reason: Pain , Severe (7-10) Last Admin: 08/09/18 05:35 Dose: 2 mg Documented by: Multivit/Ca Carb/B Cmplx/FA/Prenat (Renal Caps) 1 cap PO QDAY [facility] Nifedipine (Procardia Xl) 90 mg PO BID [facility] Ondansetron HCl (Zofran) 4 mg IV Q8H PRN PRN Reason: Nausea And Vomiting Oxycodone HCl (Roxicodone) 2.5 mg PO Q6H PRN PRN Reason: Pain, Moderate (4-6) Oxycodone/Acetaminophen (Percocet 5/325) 1 tab PO Q6H PRN PRN Reason: Pain, Moderate (4-6) Pantoprazole Sodium (Protonix) 40 mg PO DAILY [facility] Sodium Chloride (Sodium Chloride Flush Syringe 10 Ml) 10 ml IV BID [facility] Sodium Chloride (Sodium Chloride Flush Syringe 10 Ml) 10 ml IV PRN PRN PRN Reason: LINE FLUSH Trazodone HCl (Desyrel) 100 mg PO QHS [facility] Physical Examination Vital Signs Temp Pulse Resp BP Pulse Ox 97.5 F L 76 18 159/82 93 08/08/18 20:22 08/08/18 20:22 08/08/18 20:22 08/08/18 20:22 08/08/18 20:22 Results 08/08/18 20:47 08/08/18 20:47 Cardiac Enzymes 08/08/18 08/09/18 Range/Units 20:47 05:46 AST 38 (5-40) units/L CK-MB (CK-2) 6.5 H (0.0-4.0) ng/mL Lipids 08/08/18 Range/Units 21:10 Triglycerides 56 (2-149) mg/dL Cholesterol 96 (50-199) mg/dL HDL Cholesterol 43 (40-59) mg/dL Cholesterol/HDL Ratio 2.23 % CBC 08/08/18 Range/Units 20:47 WBC 6.6 (4.5-11.0) K/mm3 RBC 2.95 L (3.65-5.03) M/mm3 Hgb 8.4 L (11.8-15.2) gm/dl Hct 25.7 L (35.5-45.6) % Plt Count 167 (140-440) K/mm3 Lymph # 1.3 (1.2-5.4) K/mm3 [place] # 0.5 (0.0-0.8) K/mm3 Eos # 0.2 (0.0-0.4) K/mm3 Baso # 0.1 (0.0-0.1) K/mm3 Comprehensive Metabolic Panel 08/08/18 Range/Units 20:47 Sodium 142 (137-145) mmol/L Potassium 5.5 H (3.6-5.0) mmol/L Chloride 100.2 (98-107) mmol/L Carbon Dioxide 25 (22-30) mmol/L BUN 70 H (9-20) mg/dL Creatinine 9.0 H (0.8-1.5) mg/dL Glucose 71 L (75-100) mg/dL Calcium 8.7 (8.4-10.2) mg/dL AST 38 (5-40) units/L ALT 28 (7-56) units/L Alkaline Phosphatase 100 (35-129) units/L Total Protein 8.9 H (6.3-8.2) g/dL Albumin 3.7 L (3.9-5) g/dL Assessment and Plan Volume overload Pericardial effusion Bilateral pleural effusions ESRD on dialysis Hypertension Non-ischemic cardiomyopathy [facility] 07/2017: no significant coronary artery disease but a decreased left ventricular ejection fraction 15-20%. Chronic Ascites with intermittent paracentesis. Chronic anemia Chronic hypoxic respiratory failure on home oxygen Recommendations: Dialysis for fluid management. Limited echocardiogram for evaluation of pericardial effusion seen on CT. Medical therapy for nonischemic cardiomyopathy and chronic systolic heart failure.
[2018-08-09] MEDS: APRESOLINE PO SCH ×3 (08:36→21:18)
--- NOTE | 2018-08-09 08:46 | Event Note ---
Date: 08/09/18 Patient with a history of end-stage renal disease and CHF is now developed ascites. We'll place orders for patient to receive ultrasound guided p aracentesis.
[2018-08-09 09:35] LABS: INR 1.24 (0.87-1.13)
[2018-08-09] MEDS: PROCARDIA XL PO SCH ×2 (10:00→21:19)
[2018-08-09] MEDS: SODIUM CHLORIDE FLUSH SYRINGE 10 ML IV SCH ×2 (10:00→21:21)
[2018-08-09] MEDS: PROTONIX PO SCH (10:00)
[2018-08-09] MEDS ORDERED: NON-FORMULARY (Nifedipine [Adalat Cc] 90 MG) PO SCH (10:00)
[2018-08-09] MEDS ORDERED: PEPCID PO SCH ×2 (10:00)
[2018-08-09] MEDS: Renal Caps PO SCH (10:00)
[2018-08-09] MEDS: LOVENOX SUB-Q SCH (10:00)
[2018-08-09] MEDS ORDERED: NON-FORMULARY (Esomeprazole Magnesium [Nexium] 40 MG) PO SCH (10:00)
[2018-08-09] MEDS: COREG PO SCH ×2 (10:00→21:19)
[2018-08-09] MEDS: HALFPRIN EC PO SCH (10:00)
[2018-08-09] MEDS: XANAX PO SCH (10:00)
[2018-08-09] MEDS ORDERED: NACL 0.9% 100 ML IV PRN (10:23)
--- NOTE | 2018-08-09 10:25 | Consultation ---
History of Present Illness - Reason for Consult Consult date: 08/09/18 end stage renal disease, hyperkalemia, accelerated hypertension Requesting physician: MIRA BECERRIL - History of Present Illness Tuesday is a 28-year-old gentleman with history of hypertension, congestive heart failure, ESRD disease on dialysis Tuesday who presents with shortness of breath and left lower quadrant abdominal pain. Gradual onset of symptoms today. He was so ill that he was unable to obtain dialysis today. He is followed by [facility]. He is concerned that his ascites has worsened. His abdomen has greatly increased in size. Moderately severe LLQ abdominal pain worse with palpation. Earlier this year, admitted to the hospital for small bowel obstruction. MD Complaint: abdominal pain -: Gradual Location: LLQ Radiation: none Migration to: no migration Severity: severe Severity scale (0 -10): 8 Quality: cramping, aching Consistency: constant Worsens With: movement, other (palpation) ROS: Stated complaint: SOB,FATIGUE,ABDOMINAL/BACK/LEG PAIN Other details as noted in HPI Comment: All other systems reviewed and negative Constitutional: denies: fever, malaise Respiratory: shortness of breath Gastrointestinal: abdominal pain - Past Medical History Previous Medical History?: Yes Hx Hypertension: Yes Hx Heart Attack/AMI: No Hx Congestive Heart Failure: Yes (4LPM at home) Hx Diabetes: No Hx Deep Vein Thrombosis: No Hx Pulmonary Embolism: No Hx GERD: Yes Hx Renal Disease: Yes (ESRD -) Hx Arthritis: Yes (SPINE) Hx Asthma: No Hx COPD: No Hx Tuberculosis: No Hx Dementia: No Hx HIV: No Additional medical history: Hidradenitis, EJF 40%, enlarged heart - Surgical History Past Surgical History?: Yes Hx Pacemaker: No Hx Cholecystectomy: No Hx Appendectomy: No Hx Breast Surgery: No Additional Surgical History: PD CATHETER - AND REMOVAL. AV FISTULA. LYMPH NODES REMOVED LEFT GROIN. TONSILLECTOMY. Patient does have a history of peritonitis with previous PD - Social History Smoking Status: Former Smoker Substance Use Type: None Past History Past Medical History: ESRD, heart failure, hypertension, renal failure Past Surgical History: No surgical history Social history: no significant social history Family history: no significant family history Medications and Allergies Allergies Allergy/AdvReac Type Severity Reaction Status Date / Time heparin Allergy lowers Verified 07/02/18 15:17 platelets Home Medications Medication Instructions Recorded Confirmed Last Taken Type Esomeprazole Magnesium [Nexium] 40 mg PO DAILY #30 capsule. 03/27/18 08/08/18 08/08/18 Rx Folic Acid/Vit B Comp W-C [Renal 1 cap PO QDAY #60 capsule 03/27/18 08/08/18 08/08/18 Rx Caps] hydrALAZINE [Apresoline TAB] 100 mg PO TID #90 tab 03/27/18 08/08/18 08/08/18 Rx traZODone [Desyrel] 100 mg PO QHS #30 tablet 03/27/18 08/08/18 08/08/18 Rx NIFEdipine [Adalat cc] 90 mg PO BID 04/11/18 08/08/18 08/08/18 History Diclofenac Sodium [Voltaren] 100 gm TP Q6H #1 gel..gram. 04/21/18 08/08/18 08/08/18 Rx ALBUTEROL NEB's [Proventil 0.083% 2.5 mg IH Q4HRT PRN nebu 05/19/18 08/08/18 08/08/18 Rx NEBS] Aspirin EC 81 mg PO QDAY tablet 05/19/18 08/08/18 08/08/18 Rx AtorvaSTATin [Lipitor] 40 mg PO QHS tablet 05/19/18 08/08/18 08/08/18 Rx Carvedilol [Coreg] 25 mg PO BID tablet 05/19/18 08/08/18 08/08/18 Rx Oxycodone HCl/Acetaminophen 1 each PO Q6HR PRN #12 tablet 06/26/18 08/08/18 08/08/18 Rx [Percocet 7.5/325 mg] ALPRAZolam [Xanax TAB] 0.5 mg PO Q12HR #10 tablet 07/07/18 08/08/18 08/08/18 Rx Gabapentin [Neurontin] 100 mg PO Q8HR #90 capsule 07/07/18 08/08/18 08/08/18 Rx Active Meds: Active Medications Acetaminophen (Tylenol) 650 mg PO Q4H PRN PRN Reason: Pain MILD(1-3)/Fever >100.5/JENKINS Albuterol (Proventil) 2.5 mg IH Q4HRT PRN PRN Reason: Shortness Of Breath Alprazolam (Xanax) 0.5 mg PO Q12HR [facility] Aspirin (Halfprin Ec) 81 mg PO QDAY [facility] Atorvastatin Calcium (Lipitor) 40 mg PO QHS [facility] Carvedilol (Coreg) 25 mg PO BID [facility] Dextrose (D50w (25gm) Syringe) 50 ml IV PRN PRN PRN Reason: Hypoglycemia Enoxaparin Sodium (Lovenox) 30 mg SUB-Q QDAY [facility] Gabapentin (Neurontin) 100 mg PO Q8HR [facility] Last Admin: 08/09/18 05:31 Dose: 100 mg Documented by: Hydralazine HCl (Apresoline) 100 mg PO TID [facility] Last Admin: 08/09/18 08:36 Dose: Not Given Documented by: Sodium Chloride (Nacl 0.9%) 100 mls @ 999 mls/hr IV APRIL PRN PRN Reason: Hypotension Insulin Human Lispro (Humalog) 0 unit SUB-Q ACHS [facility]; Protocol Morphine Sulfate (Morphine) 2 mg IV Q4H PRN PRN Reason: Pain , Severe (7-10) Last Admin: 08/09/18 05:35 Dose: 2 mg Documented by: Multivit/Ca Carb/B Cmplx/FA/Prenat (Renal Caps) 1 cap PO QDAY [facility] Nifedipine (Procardia Xl) 90 mg PO BID [facility] Ondansetron HCl (Zofran) 4 mg IV Q8H PRN PRN Reason: Nausea And Vomiting Oxycodone HCl (Roxicodone) 2.5 mg PO Q6H PRN PRN Reason: Pain, Moderate (4-6) Oxycodone/Acetaminophen (Percocet 5/325) 1 tab PO Q6H PRN PRN Reason: Pain, Moderate (4-6) Pantoprazole Sodium (Protonix) 40 mg PO DAILY [facility] Sodium Chloride (Sodium Chloride Flush Syringe 10 Ml) 10 ml IV BID [facility] Sodium Chloride (Sodium Chloride Flush Syringe 10 Ml) 10 ml IV PRN PRN PRN Reason: LINE FLUSH Trazodone HCl (Desyrel) 100 mg PO QHS [facility] Exam - Vital Signs Vital signs: Vital Signs Temp Pulse Resp BP Pulse Ox 97.5 F L 76 18 159/82 93 08/08/18 20:22 08/08/18 20:22 08/08/18 20:22 08/08/18 20:22 08/08/18 20:22 - Physical Exam Narrative exam: - General Limitations: No Limitations General appearance: alert, in no apparent distress, other (pleasant articulate and appears chronically ill) - Head Head exam: Present: atraumatic, normocephalic - Eye Eye exam: Present: normal appearance - ENT ENT exam: Present: mucous membranes moist - Neck Neck exam: Present: normal inspection, full ROM - Respiratory Respiratory exam: Present: normal lung sounds bilaterally. Absent: respiratory distress, wheezes, rales, rhonchi - Cardiovascular Cardiovascular Exam: Present: regular rate, normal rhythm, normal heart sounds. Absent: systolic murmur, diastolic murmur, rubs, gallop - GI/Abdominal GI/Abdominal exam: Present: soft, distended, tenderness (LLQ), guarding (voluntary), normal bowel sounds - Rectal Rectal exam: Present: deferred - Extremities Exam Extremities exam: Present: normal inspection - Back Exam Back exam: Present: normal inspection - Neurological Exam Neurological exam: Present: alert, oriented X3 - Psychiatric Psychiatric exam: Present: normal affect, normal mood - Skin Skin exam: Present: warm, dry, intact, pallor. Absent: rash Results - Lab Results 08/08/18 20:47 08/08/18 20:47 Most recent lab results Calcium 8.7 mg/dL (8.4-10.2) 08/08/18 20:47 Assessment and Plan Impression * End-stage renal disease on maintenance hemodialysis * Hyperkalemia * Anasarca * Noncompliance * Anemia secondary to ESRD * Pleural effusion as well as ascites. * Need to rule out pericardial effusion Recommendations * Urgent hemodialysis has been arranged. Remove fluid as tolerated * Patient is significantly volume overloaded. Plan to dialyze him daily and remove fluid * needs an echocardiogram to rule out pericardial effusion * Procrit with dialysis * Binders with meals * Avoid nephrotoxins * Monitor fluid status and electrolytes closely * No IV, BP or venipuncture in his access arm
[2018-08-09 12:35] LABS: Creatine Kinase MB 5.8 ng/mL (0.0-4.0)
--- NOTE | 2018-08-09 13:47 | Progress Note ---
Assessment and Plan Assessment and plan: ESRD. Continue hemodialysis per nephrology. Hyperkalemia. Patient with urgent hemodialysis arranged. Follow-up BMP. Anasarca. Medical noncompliance. Patient has been counseled. Anemia of ESRD. Follow H&H and transfuse for hemoglobin less than 7. Continue Procrit with hemodialysis. Acute on chronic heart failure with reduced ejection fraction. Patient with a history of nonischemic cardiomyopathy. Bilateral pleural effusions. Hemodialysis per nephrology. Follow-up echocardiogram. Recurrent ascites. Patient is status post paracentesis today. Elevated troponin. Patient with chronically elevated troponin in setting of ESRD. History Interval history: No new issues overnight. Hospitalist Physical - Constitutional Vitals: Temp Pulse Resp BP Pulse Ox 98.0 F 69 16 172/88 95 08/09/18 08:19 08/09/18 08:19 08/09/18 08:08/09/18 08:08/09/18 10:00 General appearance: Present: mild distress - EENT Eyes: Present: PERRL, EOM intact ENT: hearing intact, clear oral mucosa, dentition normal - Neck Neck: Present: supple, normal ROM - Respiratory Respiratory effort: normal Respiratory: bilateral: CTA - Cardiovascular Rhythm: regular Heart Sounds: Present: S1 & S2. Absent: gallop, rub - Extremities Extremities: no ischemia, No edema, Full ROM - Abdominal General gastrointestinal: soft, non-tender, distended (ascites), normal bowel sounds - Integumentary Integumentary: Present: clear, warm, dry - Neurologic Neurologic: CNII-XII intact, moves all extremities Results - Labs CBC & Chem 7: 08/08/18 20:47 08/08/18 20:47 Labs: Laboratory Last Values WBC 6.6 K/mm3 (4.5-11.0) 08/08/18 20:47 RBC 2.95 M/mm3 (3.65-5.03) L 08/08/18 20:47 Hgb 8.4 gm/dl (11.8-15.2) L 08/08/18 20:47 Hct 25.7 % (35.5-45.6) L 08/08/18 20:47 MCV 87 fl (84-94) 08/08/18 20:47 MCH 28 pg (28-32) 08/08/18 20:47 MCHC 33 % (32-34) 08/08/18 20:47 RDW 20.3 % (13.2-15.2) H 08/08/18 20:47 Plt Count 167 K/mm3 (140-440) 08/08/18 20:47 Lymph % (Auto) 20.2 % (13.4-35.0) 08/08/18 20:47 [place] % (Auto) 7.3 % (0.0-7.3) 08/08/18 20:47 Eos % (Auto) 3.0 % (0.0-4.3) 08/08/18 20:47 Baso % (Auto) 1.2 % (0.0-1.8) 08/08/18 20:47 Lymph # 1.3 K/mm3 (1.2-5.4) 08/08/18 20:47 [place] # 0.5 K/mm3 (0.0-0.8) 08/08/18 20:47 Eos # 0.2 K/mm3 (0.0-0.4) 08/08/18 20:47 Baso # 0.1 K/mm3 (0.0-0.1) 08/08/18 20:47 Seg Neutrophils % 68.3 % (40.0-70.0) 08/08/18 20:47 Seg Neutrophils # 4.5 K/mm3 (1.8-7.7) 08/08/18 20:47 PT 16.4 Sec. (12.2-14.9) H 08/09/18 08:56 INR 1.24 (0.87-1.13) H 08/09/18 08:56 Sodium 142 mmol/L (137-145) 08/08/18 20:47 Potassium 5.5 mmol/L (3.6-5.0) H 08/08/18 20:47 Chloride 100.2 mmol/L (98-107) 08/08/18 20:47 Carbon Dioxide 25 mmol/L (22-30) 08/08/18 20:47 22 mmol/L 08/08/18 20:47 BUN 70 mg/dL (9-20) H 08/08/18 20:47 9.0 mg/dL (0.8-1.5) H 08/08/18 20:47 Estimated GFR 7 ml/min 08/08/18 20:47 8 % 08/08/18 20:47 Glucose 71 mg/dL (75-100) L 08/08/18 20:47 POC Glucose 76 (70-105) 08/09/18 08:51 Calcium 8.7 mg/dL (8.4-10.2) 08/08/18 20:47 0.50 mg/dL (0.1-1.2) 08/08/18 20:47 AST 38 units/L (5-40) 08/08/18 20:47 ALT 28 units/L (7-56) 08/08/18 20:47 100 units/L (35-129) 08/08/18 20:47 113 units/L (55-170) 08/09/18 11:45 CK-MB (CK-2) 5.8 ng/mL (0.0-4.0) H 08/09/18 11:45 CK-MB (CK-2) Rel Index 5.1 (0-4) H 08/09/18 11:45 0.255 ng/mL (0.00-0.029) H* 08/09/18 11:45 NT-Pro-B Natriuret Pep > 26421 pg/mL (0-450) H 08/08/18 21:10 8.9 g/dL (6.3-8.2) H 08/08/18 20:47 3.7 g/dL (3.9-5) L 08/08/18 20:47 0.7 % 08/08/18 20:47 Triglycerides 56 mg/dL (2-149) 08/08/18 21:10 Cholesterol 96 mg/dL (50-199) 08/08/18 21:10 43 mg/dL (50-130) L 08/08/18 21:10 43 mg/dL (40-59) 08/08/18 21:10 2.23 % 08/08/18 21:10 Active Medications - Current Medications Current Medications: Generic Name Dose Route Start Last Admin Trade Name Freq PRN Reason Stop Dose Admin Acetaminophen 650 mg 08/09/18 00:08 Tylenol PO Q4H PRN Pain MILD(1-3)/Fever >100.5/JENKINS Albuterol 2.5 mg 08/09/18 04:32 Proventil IH Q4HRT PRN Shortness Of Breath Alprazolam 0.5 mg 08/09/18 10:00 08/09/18 10:00 Xanax PO Not Given Q12HR [facility] Aspirin 81 mg 08/09/18 10:00 08/09/18 10:00 Halfprin Ec PO Not Given QDAY [facility] Atorvastatin Calcium 40 mg 08/09/18 22:00 Lipitor PO QHS [facility] Carvedilol 25 mg 08/09/18 10:00 08/09/18 10:00 Coreg PO Not Given BID [facility] Dextrose 50 ml 08/09/18 00:08 D50w (25gm) Syringe IV PRN PRN Hypoglycemia Enoxaparin Sodium 30 mg 08/09/18 10:00 08/09/18 10:00 Lovenox SUB-Q Not Given QDAY [facility] Gabapentin 100 mg 08/09/18 06:00 08/09/18 05:31 Neurontin PO 100 mg Q8HR [facility] Administration Hydralazine HCl 100 mg 08/09/18 08:00 08/09/18 08:36 Apresoline PO Not Given TID [facility] Sodium Chloride 100 mls @ 999 mls/hr 08/09/18 10:23 Nacl 0.9% IV APRIL PRN Hypotension Insulin Human Lispro 0 unit 08/09/18 07:30 08/09/18 11:30 Humalog SUB-Q Not Given ACHS [facility] Protocol Morphine Sulfate 2 mg 08/09/18 05:03 08/09/18 05:35 Morphine IV 2 mg Q4H PRN Administration Pain , Severe (7-10) Multivit/Ca Carb/B Cmplx/FA/Prenat 1 cap 08/09/18 10:00 08/09/18 10:00 Renal Caps PO Not Given QDAY [facility] Nifedipine 90 mg 08/09/18 10:00 08/09/18 10:00 Procardia Xl PO Not Given BID [facility] Ondansetron HCl 4 mg 08/09/18 00:08 Zofran IV Q8H PRN Nausea And Vomiting Oxycodone HCl 2.5 mg 08/09/18 04:54 Roxicodone PO Q6H PRN Pain, Moderate (4-6) Oxycodone/Acetaminophen 1 tab 08/09/18 04:54 Percocet 5/325 PO Q6H PRN Pain, Moderate (4-6) Pantoprazole Sodium 40 mg 08/09/18 10:00 08/09/18 10:00 Protonix PO Not Given DAILY [facility] Sodium Chloride 10 ml 08/09/18 10:00 08/09/18 10:00 Sodium Chloride Flush Syringe 10 Ml IV Not Given BID [facility] Sodium Chloride 10 ml 08/09/18 00:08 Sodium Chloride Flush Syringe 10 Ml IV PRN PRN LINE FLUSH Trazodone HCl 100 mg 08/09/18 22:00 Desyrel PO QHS [facility]
[2018-08-09] MEDS: APRESOLINE IV PRN (18:33)
[2018-08-09] MEDS: DESYREL PO SCH (21:19)
[2018-08-10] MEDS: XANAX PO SCH ×3 (00:12→21:30)
[2018-08-10] MEDS: APRESOLINE IV PRN ×3 (00:12→18:49)
[2018-08-10] MEDS: DICLOFENAC 1% TP SCH ×4 (00:15→17:25)
[2018-08-10] MEDS: MORPHINE IV PRN ×4 (05:25→18:49)
[2018-08-10] MEDS: NEURONTIN PO SCH ×3 (05:25→21:29)
[2018-08-10 06:01] LABS: Basophils # (Auto) 0.1 K/mm3 (0.0-0.1); Basophils % (Auto) 1.6 % (0.0-1.8); Eosinophils # (Auto) 0.3 K/mm3 (0.0-0.4); Eosinophils % (Auto) 3.5 % (0.0-4.3); Hemoglobin 8.4 gm/dl (11.8-15.2); Lymphocytes # (Auto) 1.5 K/mm3 (1.2-5.4); Lymphocytes % (Auto) 19.3 % (13.4-35.0); Mean Corpuscular HGB Conc 32 % (32-34); Mean Corpuscular Volume 87 fl (84-94); Monocytes # (Auto) 0.6 K/mm3 (0.0-0.8); Monocytes % (Auto) 7.4 % (0.0-7.3); Platelet Count 200 K/mm3 (140-440)
[2018-08-10 06:33] LABS: Calcium 8.4 mg/dL (8.4-10.2)
--- NOTE | 2018-08-10 09:27 | Progress Note ---
Assessment and Plan Volume overload Chronic systolic heart failure Pericardial effusion s/p pericardiocentesis 06/2018 Bilateral pleural effusions ESRD on dialysis Hypertension Non-ischemic cardiomyopathy [facility] 07/2017: no significant coronary artery disease but a decreased left ventricular ejection fraction 15-20%. Chronic Ascites with intermittent paracentesis. Chronic anemia Chronic hypoxic respiratory failure on home oxygen Non-compliance with outpatient cardiac follow-ups Chronically elevated troponin in the setting of ESRD Recommendations: Dialysis for fluid management. Limited echocardiogram for evaluation of pericardial effusion seen on CT. Continue medical therapy for nonischemic cardiomyopathy and chronic systolic heart failure. Subjective Date of service: 08/10/18 Interval history: Patient is resting in bed comfortably. No distress noted. For planned paracentesis today. Objective Vital Signs Temp Pulse Resp BP BP Pulse Ox Pulse Ox 08/10/18 07:32 97.3 F L 89 18 94 08/10/18 07:30 97.3 F L 140/76 08/10/18 05:25 90 20 185/96 08/10/18 05:12 96 08/10/18 03:14 97.3 F L 86 18 185/96 80 L 08/10/18 00:12 85 187/93 08/10/18 00:01 97.9 F 82 18 187/93 94 08/10/18 00:00 71 08/09/18 23:51 96 08/09/18 21:20 20 08/09/18 21:19 80 155/80 08/09/18 20:50 95 08/09/18 19:26 98.0 F 76 18 155/80 96 08/09/18 16:50 97.6 F 79 16 199/98 95 08/09/18 13:30 98.2 F 66 18 198/102 98 08/09/18 13:15 65 202/106 08/09/18 13:00 67 204/110 08/09/18 12:45 66 196/104 08/09/18 12:30 67 206/97 08/09/18 12:15 67 200/98 08/09/18 12:00 69 188/96 08/09/18 11:45 70 190/95 08/09/18 11:30 69 186/108 08/09/18 11:15 67 187/101 08/09/18 11:00 70 193/100 08/09/18 10:45 74 200/107 08/09/18 10:30 67 194/96 08/09/18 10:15 70 178/96 08/09/18 10:00 97.8 F 74 18 192/106 95 98 - Physical Examination HEENT: Positive: PERRL Cardiac: Positive: Reg Rate and Rhythm Lungs: Positive: Decreased Breath Sounds - Labs and Meds Cardiac Enzymes 08/09/18 Range/Units 11:45 CK-MB (CK-2) 5.8 H (0.0-4.0) ng/mL Coagulation 08/09/18 Range/Units 08:56 PT 16.4 H (12.2-14.9) Sec. INR 1.24 H (0.87-1.13) CBC 08/10/18 Range/Units 04:49 WBC 7.6 (4.5-11.0) K/mm3 RBC 3.00 L (3.65-5.03) M/mm3 Hgb 8.4 L (11.8-15.2) gm/dl Hct 26.0 L (35.5-45.6) % Plt Count 200 (140-440) K/mm3 Lymph # 1.5 (1.2-5.4) K/mm3 [place] # 0.6 (0.0-0.8) K/mm3 Eos # 0.3 (0.0-0.4) K/mm3 Baso # 0.1 (0.0-0.1) K/mm3 Comprehensive Metabolic Panel 08/10/18 Range/Units 04:49 Sodium 139 (137-145) mmol/L Potassium 5.1 H (3.6-5.0) mmol/L Chloride 97.8 L (98-107) mmol/L Carbon Dioxide 26 (22-30) mmol/L BUN 45 H (9-20) mg/dL Creatinine 6.7 H (0.8-1.5) mg/dL Glucose 79 (75-100) mg/dL Calcium 8.4 (8.4-10.2) mg/dL
[2018-08-10] MEDS: HumaLOG SUB-Q SCH ×3 (09:41→17:24)
[2018-08-10] MEDS: APRESOLINE PO SCH ×3 (09:41→21:29)
--- NOTE | 2018-08-10 10:11 | Progress Note ---
Assessment and Plan Impression * End-stage renal disease on maintenance hemodialysis * Hyperkalemia * Anasarca * Noncompliance * Anemia secondary to ESRD * Pleural effusion as well as ascites. * Need to rule out pericardial effusion Recommendations * Urgent hemodialysis has been arranged. Remove fluid as tolerated * Patient is significantly volume overloaded. Plan to dialyze him daily and remove fluid * needs an echocardiogram to rule out pericardial effusion * Procrit with dialysis * Binders with meals * Avoid nephrotoxins * Monitor fluid status and electrolytes closely * No IV, BP or venipuncture in his access arm Subjective Date of service: 08/10/18 Principal diagnosis: anasarca Interval history: resting in bed today Objective - Exam Narrative Exam: - General Limitations: No Limitations General appearance: alert, in no apparent distress, other (pleasant articulate and appears chronically ill) - Head Head exam: Present: atraumatic, normocephalic - Eye Eye exam: Present: normal appearance - ENT ENT exam: Present: mucous membranes moist - Neck Neck exam: Present: normal inspection, full ROM - Respiratory Respiratory exam: Present: normal lung sounds bilaterally. Absent: respiratory distress, wheezes, rales, rhonchi - Cardiovascular Cardiovascular Exam: Present: regular rate, normal rhythm, normal heart sounds. Absent: systolic murmur, diastolic murmur, rubs, gallop - GI/Abdominal GI/Abdominal exam: Present: soft, distended, tenderness (LLQ), guarding (voluntary), normal bowel sounds - Rectal Rectal exam: Present: deferred - Extremities Exam Extremities exam: Present: normal inspection - Back Exam Back exam: Present: normal inspection - Neurological Exam Neurological exam: Present: alert, oriented X3 - Psychiatric Psychiatric exam: Present: normal affect, normal mood - Skin Skin exam: Present: warm, dry, intact, pallor. Absent: rash - Vital Signs Vital signs: Vital Signs - 12hr 08/09/18 08/10/18 08/10/18 23:51 00:00 00:01 Temperature 97.9 F Pulse Rate 71 82 Respiratory 18 Rate Blood Pressure 187/93 Blood Pressure [Right] O2 Sat by Pulse 96 94 Oximetry 08/10/18 08/10/18 08/10/18 00:12 03:14 05:12 Temperature 97.3 F L Pulse Rate 85 86 Respiratory 18 Rate Blood Pressure 187/93 185/96 Blood Pressure [Right] O2 Sat by Pulse 80 L 96 Oximetry 08/10/18 08/10/18 08/10/18 05:25 07:30 07:32 Temperature 97.3 F L 97.3 F L Pulse Rate 90 89 Respiratory 20 18 Rate Blood Pressure 185/96 Blood Pressure 140/76 [Right] O2 Sat by Pulse 94 Oximetry - Lab 08/10/18 04:49 08/10/18 04:49 Most recent lab results Calcium 8.4 mg/dL (8.4-10.2) 08/10/18 04:49 Medications & Allergies - Medications Allergies/Adverse Reactions: Allergies heparin Allergy (Verified 07/02/18 15:17) lowers platelets Home Medications: Home Medications Medication Instructions Recorded Confirmed Last Taken Type Esomeprazole Magnesium [Nexium] 40 mg PO DAILY #30 capsule. 03/27/18 08/08/18 08/08/18 Rx Folic Acid/Vit B Comp W-C [Renal 1 cap PO QDAY #60 capsule 03/27/18 08/08/18 08/08/18 Rx Caps] hydrALAZINE [Apresoline TAB] 100 mg PO TID #90 tab 03/27/18 08/08/18 08/08/18 Rx traZODone [Desyrel] 100 mg PO QHS #30 tablet 03/27/18 08/08/18 08/08/18 Rx NIFEdipine [Adalat cc] 90 mg PO BID 04/11/18 08/08/18 08/08/18 History Diclofenac Sodium [Voltaren] 100 gm TP Q6H #1 gel..gram. 04/21/18 08/08/18 08/08/18 Rx ALBUTEROL NEB's [Proventil 0.083% 2.5 mg IH Q4HRT PRN nebu 05/19/18 08/08/18 08/08/18 Rx NEBS] Aspirin EC 81 mg PO QDAY tablet 05/19/18 08/08/18 08/08/18 Rx AtorvaSTATin [Lipitor] 40 mg PO QHS tablet 05/19/18 08/08/18 08/08/18 Rx Carvedilol [Coreg] 25 mg PO BID tablet 05/19/18 08/08/18 08/08/18 Rx Oxycodone HCl/Acetaminophen 1 each PO Q6HR PRN #12 tablet 06/26/18 08/08/18 08/08/18 Rx [Percocet 7.5/325 mg] ALPRAZolam [Xanax TAB] 0.5 mg PO Q12HR #10 tablet 07/07/18 08/08/18 08/08/18 Rx Gabapentin [Neurontin] 100 mg PO Q8HR #90 capsule 07/07/18 08/08/18 08/08/18 Rx Active Medications: Generic Name Dose Route Start Last Admin Trade Name Freq PRN Reason Stop Dose Admin Acetaminophen 650 mg 08/09/18 00:08 Tylenol PO Q4H PRN Pain MILD(1-3)/Fever >100.5/JENKINS Albuterol 2.5 mg 08/09/18 04:32 Proventil IH Q4HRT PRN Shortness Of Breath Alprazolam 0.5 mg 08/09/18 10:00 08/10/18 00:12 Xanax PO 0.5 mg Q12HR [facility] Administration Aspirin 81 mg 08/09/18 10:00 08/09/18 10:00 Halfprin Ec PO Not Given QDAY [facility] Atorvastatin Calcium 40 mg 08/09/18 22:00 08/09/18 21:19 Lipitor PO 40 mg QHS [facility] Administration Carvedilol 25 mg 08/09/18 10:00 08/09/18 21:19 Coreg PO 25 mg BID [facility] Administration Dextrose 50 ml 08/09/18 00:08 D50w (25gm) Syringe IV PRN PRN Hypoglycemia Enoxaparin Sodium 30 mg 08/09/18 10:00 08/09/18 10:00 Lovenox SUB-Q Not Given QDAY [facility] Gabapentin 100 mg 08/09/18 06:00 08/10/18 05:25 Neurontin PO 100 mg Q8HR [facility] Administration Hydralazine HCl 100 mg 08/09/18 08:00 08/10/18 09:41 Apresoline PO Not Given TID [facility] Hydralazine HCl 20 mg 08/09/18 18:23 08/10/18 05:25 Apresoline IV 20 mg Q4HR PRN Administration SBP greater than 170 Sodium Chloride 100 mls @ 999 mls/hr 08/09/18 10:23 Nacl 0.9% IV APRIL PRN Hypotension Insulin Human Lispro 0 unit 08/09/18 07:30 08/10/18 09:41 Humalog SUB-Q Not Given ACHS [facility] Protocol Morphine Sulfate 2 mg 08/09/18 05:03 08/10/18 05:25 Morphine IV 2 mg Q4H PRN Administration Pain , Severe (7-10) Multivit/Ca Carb/B Cmplx/FA/Prenat 1 cap 08/09/18 10:00 08/09/18 10:00 Renal Caps PO Not Given QDAY [facility] Nifedipine 90 mg 08/09/18 10:00 08/09/18 21:19 Procardia Xl PO 90 mg BID [facility] Administration Ondansetron HCl 4 mg 08/09/18 00:08 Zofran IV Q8H PRN Nausea And Vomiting Oxycodone HCl 2.5 mg 08/09/18 04:54 Roxicodone PO Q6H PRN Pain, Moderate (4-6) Oxycodone/Acetaminophen 1 tab 08/09/18 04:54 Percocet 5/325 PO Q6H PRN Pain, Moderate (4-6) Pantoprazole Sodium 40 mg 08/09/18 10:00 08/09/18 10:00 Protonix PO Not Given DAILY [facility] Sodium Chloride 10 ml 08/09/18 10:00 08/09/18 21:21 Sodium Chloride Flush Syringe 10 Ml IV 10 ml BID [facility] Administration Sodium Chloride 10 ml 08/09/18 00:08 Sodium Chloride Flush Syringe 10 Ml IV PRN PRN LINE FLUSH Trazodone HCl 100 mg 08/09/18 22:00 08/09/18 21:19 Desyrel PO 100 mg QHS [facility] Administration
--- NOTE | 2018-08-10 10:15 | Ultrasound Report ---
ULTRASOUND ABDOMEN LIMITED History: Ascites. Findings: This examination was scheduled as an ultrasound guided paracentesis. All 4 quadrants of the abdomen were scanned which demonstrates no significant ascites. No collection large enough for paracentesis. Impression: No significant abdominal ascites is demonstrated on ultrasound. Ultrasound-guided paracentesis was canceled.
[2018-08-10] MEDS: SODIUM CHLORIDE FLUSH SYRINGE 10 ML IV SCH ×2 (10:28→21:32)
--- NOTE | 2018-08-10 12:33 | Progress Note ---
Assessment and Plan Assessment and plan: ESRD. Continue hemodialysis per nephrology. Nephrology plans to dialyze him daily for now. Hyperkalemia. Patient with urgent hemodialysis arranged. Follow-up BMP. Anasarca. Medical noncompliance. Patient has been counseled. Anemia of ESRD. Follow H&H and transfuse for hemoglobin less than 7. Continue Procrit with hemodialysis. Acute on chronic heart failure with reduced ejection fraction. Patient with a history of nonischemic cardiomyopathy. Bilateral pleural effusions. Hemodialysis per nephrology. Follow-up echocardiogram. Recurrent ascites. Patient is status post paracentesis today. Pericardial effusion. Echocardiogram revealed small pericardial effusion. Elevated troponin. Patient with chronically elevated troponin in setting of ESRD. History Interval history: No new issues overnight. Hospitalist Physical - Constitutional Vitals: Temp Pulse Resp BP Pulse Ox 97.3 F L 92 H 18 140/76 94 08/10/18 07:32 08/10/18 08:00 08/10/18 10:57 08/10/18 07:30 08/10/18 07:32 General appearance: Present: no acute distress - EENT Eyes: Present: PERRL, EOM intact ENT: hearing intact, clear oral mucosa, dentition normal - Neck Neck: Present: supple, normal ROM - Respiratory Respiratory effort: normal Respiratory: bilateral: CTA - Cardiovascular Rhythm: regular Heart Sounds: Present: S1 & S2. Absent: gallop, rub - Extremities Extremities: no ischemia, No edema, Full ROM - Abdominal General gastrointestinal: soft, non-tender, non-distended, normal bowel sounds - Integumentary Integumentary: Present: clear, warm, dry - Neurologic Neurologic: CNII-XII intact, moves all extremities Results - Labs CBC & Chem 7: 08/10/18 04:49 08/10/18 04:49 Labs: Laboratory Last Values WBC 7.6 K/mm3 (4.5-11.0) 08/10/18 04:49 RBC 3.00 M/mm3 (3.65-5.03) L 08/10/18 04:49 Hgb 8.4 gm/dl (11.8-15.2) L 08/10/18 04:49 Hct 26.0 % (35.5-45.6) L 08/10/18 04:49 MCV 87 fl (84-94) 08/10/18 04:49 MCH 28 pg (28-32) 08/10/18 04:49 MCHC 32 % (32-34) 08/10/18 04:49 RDW 20.0 % (13.2-15.2) H 08/10/18 04:49 Plt Count 200 K/mm3 (140-440) 08/10/18 04:49 Lymph % (Auto) 19.3 % (13.4-35.0) 08/10/18 04:49 [place] % (Auto) 7.4 % (0.0-7.3) H 08/10/18 04:49 Eos % (Auto) 3.5 % (0.0-4.3) 08/10/18 04:49 Baso % (Auto) 1.6 % (0.0-1.8) 08/10/18 04:49 Lymph # 1.5 K/mm3 (1.2-5.4) 08/10/18 04:49 [place] # 0.6 K/mm3 (0.0-0.8) 08/10/18 04:49 Eos # 0.3 K/mm3 (0.0-0.4) 08/10/18 04:49 Baso # 0.1 K/mm3 (0.0-0.1) 08/10/18 04:49 Seg Neutrophils % 68.2 % (40.0-70.0) 08/10/18 04:49 Seg Neutrophils # 5.2 K/mm3 (1.8-7.7) 08/10/18 04:49 PT 16.4 Sec. (12.2-14.9) H 08/09/18 08:56 INR 1.24 (0.87-1.13) H 08/09/18 08:56 Sodium 139 mmol/L (137-145) 08/10/18 04:49 Potassium 5.1 mmol/L (3.6-5.0) H 08/10/18 04:49 Chloride 97.8 mmol/L (98-107) L 08/10/18 04:49 Carbon Dioxide 26 mmol/L (22-30) 08/10/18 04:49 20 mmol/L 08/10/18 04:49 BUN 45 mg/dL (9-20) H 08/10/18 04:49 6.7 mg/dL (0.8-1.5) H 08/10/18 04:49 Estimated GFR 10 ml/min 08/10/18 04:49 7 % 08/10/18 04:49 Glucose 79 mg/dL (75-100) 08/10/18 04:49 POC Glucose 76 (70-105) 08/10/18 12:04 Calcium 8.4 mg/dL (8.4-10.2) 08/10/18 04:49 0.50 mg/dL (0.1-1.2) 08/08/18 20:47 AST 38 units/L (5-40) 08/08/18 20:47 ALT 28 units/L (7-56) 08/08/18 20:47 100 units/L (35-129) 08/08/18 20:47 113 units/L (55-170) 08/09/18 11:45 CK-MB (CK-2) 5.8 ng/mL (0.0-4.0) H 08/09/18 11:45 CK-MB (CK-2) Rel Index 5.1 (0-4) H 08/09/18 11:45 0.255 ng/mL (0.00-0.029) H* 08/09/18 11:45 NT-Pro-B Natriuret Pep > 24390 pg/mL (0-450) H 08/08/18 21:10 8.9 g/dL (6.3-8.2) H 08/08/18 20:47 3.7 g/dL (3.9-5) L 08/08/18 20:47 0.7 % 08/08/18 20:47 Triglycerides 56 mg/dL (2-149) 08/08/18 21:10 Cholesterol 96 mg/dL (50-199) 08/08/18 21:10 43 mg/dL (50-130) L 08/08/18 21:10 43 mg/dL (40-59) 08/08/18 21:10 2.23 % 08/08/18 21:10 Active Medications - Current Medications Current Medications: Generic Name Dose Route Start Last Admin Trade Name Freq PRN Reason Stop Dose Admin Acetaminophen 650 mg 08/09/18 00:08 Tylenol PO Q4H PRN Pain MILD(1-3)/Fever >100.5/JENKINS Albuterol 2.5 mg 08/09/18 04:32 Proventil IH Q4HRT PRN Shortness Of Breath Alprazolam 0.5 mg 08/09/18 10:00 08/10/18 00:12 Xanax PO 0.5 mg Q12HR CHONG Administration Aspirin 81 mg 08/09/18 10:00 08/09/18 10:00 Halfprin Ec PO Not Given QDAY CHONG Atorvastatin Calcium 40 mg 08/09/18 22:00 08/09/18 21:19 Lipitor PO 40 mg QHS CHONG Administration Carvedilol 25 mg 08/09/18 10:00 08/09/18 21:19 Coreg PO 25 mg BID CHONG Administration Dextrose 50 ml 08/09/18 00:08 D50w (25gm) Syringe IV PRN PRN Hypoglycemia Enoxaparin Sodium 30 mg 08/09/18 10:00 08/09/18 10:00 Lovenox SUB-Q Not Given QDAY [facility] Gabapentin 100 mg 08/09/18 06:00 08/10/18 05:25 Neurontin PO 100 mg Q8HR CHONG Administration Hydralazine HCl 100 mg 08/09/18 08:00 08/10/18 09:41 Apresoline PO Not Given TID [facility] Hydralazine HCl 20 mg 08/09/18 18:23 08/10/18 05:25 Apresoline IV 20 mg Q4HR PRN Administration SBP greater than 170 Sodium Chloride 100 mls @ 999 mls/hr 08/09/18 10:23 Nacl 0.9% IV APRIL PRN Hypotension Insulin Human Lispro 0 unit 08/09/18 07:30 08/10/18 12:00 Humalog SUB-Q Not Given ACHS [facility] Protocol Morphine Sulfate 2 mg 08/09/18 05:03 08/10/18 10:27 Morphine IV 2 mg Q4H PRN Administration Pain , Severe (7-10) Multivit/Ca Carb/B Cmplx/FA/Prenat 1 cap 08/09/18 10:00 08/09/18 10:00 Renal Caps PO Not Given QDAY CHONG Nifedipine 90 mg 08/09/18 10:00 08/09/18 21:19 Procardia Xl PO 90 mg BID CHONG Administration Ondansetron HCl 4 mg 08/09/18 00:08 Zofran IV Q8H PRN Nausea And Vomiting Oxycodone HCl 2.5 mg 08/09/18 04:54 Roxicodone PO Q6H PRN Pain, Moderate (4-6) Oxycodone/Acetaminophen 1 tab 08/09/18 04:54 Percocet 5/325 PO Q6H PRN Pain, Moderate (4-6) Pantoprazole Sodium 40 mg 08/09/18 10:00 08/09/18 10:00 Protonix PO Not Given DAILY CHONG Sodium Chloride 10 ml 08/09/18 10:00 08/10/18 10:28 Sodium Chloride Flush Syringe 10 Ml IV 10 ml BID CHONG Administration Sodium Chloride 10 ml 08/09/18 00:08 Sodium Chloride Flush Syringe 10 Ml IV PRN PRN LINE FLUSH Trazodone HCl 100 mg 08/09/18 22:00 08/09/18 21:19 Desyrel PO 100 mg QHS CHONG Administration Nutrition/Malnutrition Assess - Dietary Evaluation Nutrition/Malnutrition Findings: Nutrition Notes Start: 08/09/18 14:31 Freq: Status: Active Protocol: Document 08/09/18 14:31 [facility] (Rec: 08/09/18 14:35 [facility] [id number]) Nutrition Notes Need for Assessment generated from: MD Order,Education Initial or Follow up Brief Note Current Diagnosis CKD (stage V CKD),Hypertension ,Heart Failure Other Pertinent Diagnosis Intractable abdominal pain, ascites, uremia Current Diet Cardiac/Consistent CHO Subjective/Other Information RD consulted for diet education. Pt missed HD SIGHTER; scheduled for paracentesis. No mention of DM in hx and physical. Pt not in room at time of visit (11:03). Burn Absent Trauma Absent Nutrition Intervention Follow-Up By: 08/10/18 Additional Comments F/U: renal diet education needs
[2018-08-10] MEDS: HALFPRIN EC PO SCH (13:08)
[2018-08-10] MEDS: COREG PO SCH ×2 (13:08→21:30)
[2018-08-10] MEDS: PROTONIX PO SCH (13:09)
[2018-08-10] MEDS: PROCARDIA XL PO SCH ×2 (13:09→21:29)
[2018-08-10] MEDS: LOVENOX SUB-Q SCH (13:09)
[2018-08-10] MEDS: Renal Caps PO SCH (13:09)
[2018-08-10] MEDS: DESYREL PO SCH (21:30)
[2018-08-11] MEDS: HumaLOG SUB-Q SCH ×4 (00:40→21:32)
[2018-08-11] MEDS: DICLOFENAC 1% TP SCH ×3 (00:41→12:00)
[2018-08-11] MEDS: APRESOLINE IV PRN (00:47)
[2018-08-11] MEDS: MORPHINE IV PRN ×5 (00:48→17:41)
[2018-08-11] MEDS: NEURONTIN PO SCH ×3 (05:37→21:31)
--- NOTE | 2018-08-11 09:14 | Progress Note ---
Assessment and Plan Volume overload Chronic systolic heart failure Pericardial effusion s/p pericardiocentesis 06/2018 limited echo this admission reports a small pericardial effusion, large left pleural effusion, EF improved to 40-50%. Bilateral pleural effusions ESRD on dialysis Hypertension Non-ischemic cardiomyopathy [facility] 07/2017: no significant coronary artery disease but a decreased left ventricular ejection fraction 15-20%. Chronic Ascites with intermittent paracentesis. Chronic anemia Chronic hypoxic respiratory failure on home oxygen Non-compliance with outpatient cardiac follow-ups Chronically elevated troponin in the setting of ESRD Recommendations: Dialysis for fluid management. Continue medical therapy for nonischemic cardiomyopathy and chronic systolic heart failure. Subjective Date of service: 08/11/18 Principal diagnosis: anasarca Interval history: Seen in dialysis. Patient is resting in bed and appears comfortable. He has no complaints. Objective Vital Signs Temp Pulse Resp Resp BP BP Pulse Ox 08/11/18 05:37 20 08/11/18 04:26 97.8 F 85 20 136/75 90 08/11/18 04:00 20 08/11/18 00:48 20 08/11/18 00:47 84 182/98 08/11/18 00:15 97.2 F L 84 18 178/92 89 08/11/18 00:00 90 08/10/18 22:16 95 08/10/18 21:30 86 182/98 08/10/18 20:46 98.2 F 86 18 182/98 95 08/10/18 20:00 96 08/10/18 18:49 88 16 202/101 08/10/18 18:45 87 202/101 96 08/10/18 18:13 97.5 F L 81 16 199/108 08/10/18 17:15 80 208/108 08/10/18 17:00 72 215/109 08/10/18 16:45 74 180/102 08/10/18 16:30 77 186/105 08/10/18 16:15 77 188/96 08/10/18 16:00 75 182/99 08/10/18 15:45 97 H 187/94 08/10/18 15:30 78 183/93 08/10/18 15:15 78 174/100 08/10/18 15:00 85 178/94 08/10/18 14:45 82 174/96 08/10/18 14:30 80 164/92 08/10/18 14:15 80 168/96 08/10/18 14:00 81 168/96 08/10/18 13:45 86 180/91 08/10/18 13:30 97.5 F L 86 18 180/91 08/10/18 13:15 89 93 08/10/18 13:00 98.9 F 89 18 168/90 08/10/18 10:57 18 08/10/18 10:27 18 - Physical Examination General: No Apparent Distress HEENT: Positive: PERRL Neck: Positive: trachea midline Cardiac: Positive: Reg Rate and Rhythm Lungs: Positive: Decreased Breath Sounds Neuro: Positive: Grossly Intact Extremities: Absent: edema
[2018-08-11] MEDS ORDERED: NACL 0.9 (PRIMING MACHINE ONLY DIALYSIS) MC ONE (09:28)
--- NOTE | 2018-08-11 10:21 | Progress Note ---
Assessment and Plan Assessment and plan: ESRD. Continue hemodialysis per nephrology. Nephrology plans to dialyze him daily for now. Patient will receive his third consecutive dialysis today. Hyperkalemia. Resolved. Follow-up BMP. Anasarca. Medical noncompliance. Patient has been counseled. Anemia of ESRD. Follow H&H and transfuse for hemoglobin less than 7. Continue Procrit with hemodialysis. Acute on chronic heart failure with reduced ejection fraction. Patient with a history of nonischemic cardiomyopathy. Continue hemodialysis for negative fluid balance. Bilateral pleural effusions. Hemodialysis per nephrology. Echocardiogram revealed a small pericardial effusion, LVH and EF of 40-50%. Recurrent ascites. Patient is status post paracentesis Pericardial effusion. Echocardiogram revealed small pericardial effusion. Elevated troponin. Patient with chronically elevated troponin in setting of ESRD. History Interval history: No new issues overnight. Hospitalist Physical - Constitutional Vitals: Temp Pulse Resp BP Pulse Ox 97.8 F 85 18 136/75 90 08/11/18 04:26 08/11/18 04:26 08/11/18 09:45 08/11/18 04:26 08/11/18 04:26 General appearance: Present: no acute distress - EENT Eyes: Present: PERRL, EOM intact ENT: hearing intact, clear oral mucosa, dentition normal - Neck Neck: Present: supple, normal ROM - Respiratory Respiratory effort: normal Respiratory: bilateral: CTA - Cardiovascular Rhythm: regular Heart Sounds: Present: S1 & S2. Absent: gallop, rub - Extremities Extremities: no ischemia, No edema, Full ROM - Abdominal General gastrointestinal: soft, non-tender, non-distended, normal bowel sounds - Integumentary Integumentary: Present: clear, warm, dry - Neurologic Neurologic: CNII-XII intact, moves all extremities Results - Labs CBC & Chem 7: 08/10/18 04:49 08/10/18 04:49 Labs: Laboratory Last Values WBC 7.6 K/mm3 (4.5-11.0) 08/10/18 04:49 RBC 3.00 M/mm3 (3.65-5.03) L 08/10/18 04:49 Hgb 8.4 gm/dl (11.8-15.2) L 08/10/18 04:49 Hct 26.0 % (35.5-45.6) L 08/10/18 04:49 MCV 87 fl (84-94) 08/10/18 04:49 MCH 28 pg (28-32) 08/10/18 04:49 MCHC 32 % (32-34) 08/10/18 04:49 RDW 20.0 % (13.2-15.2) H 08/10/18 04:49 Plt Count 200 K/mm3 (140-440) 08/10/18 04:49 Lymph % (Auto) 19.3 % (13.4-35.0) 08/10/18 04:49 [place] % (Auto) 7.4 % (0.0-7.3) H 08/10/18 04:49 Eos % (Auto) 3.5 % (0.0-4.3) 08/10/18 04:49 Baso % (Auto) 1.6 % (0.0-1.8) 08/10/18 04:49 Lymph # 1.5 K/mm3 (1.2-5.4) 08/10/18 04:49 [place] # 0.6 K/mm3 (0.0-0.8) 08/10/18 04:49 Eos # 0.3 K/mm3 (0.0-0.4) 08/10/18 04:49 Baso # 0.1 K/mm3 (0.0-0.1) 08/10/18 04:49 Seg Neutrophils % 68.2 % (40.0-70.0) 08/10/18 04:49 Seg Neutrophils # 5.2 K/mm3 (1.8-7.7) 08/10/18 04:49 PT 16.4 Sec. (12.2-14.9) H 08/09/18 08:56 INR 1.24 (0.87-1.13) H 08/09/18 08:56 Sodium 139 mmol/L (137-145) 08/10/18 04:49 Potassium 5.1 mmol/L (3.6-5.0) H 08/10/18 04:49 Chloride 97.8 mmol/L (98-107) L 08/10/18 04:49 Carbon Dioxide 26 mmol/L (22-30) 08/10/18 04:49 20 mmol/L 08/10/18 04:49 BUN 45 mg/dL (9-20) H 08/10/18 04:49 6.7 mg/dL (0.8-1.5) H 08/10/18 04:49 Estimated GFR 10 ml/min 08/10/18 04:49 7 % 08/10/18 04:49 Glucose 79 mg/dL (75-100) 08/10/18 04:49 POC Glucose 78 (70-105) 08/10/18 21:57 Calcium 8.4 mg/dL (8.4-10.2) 08/10/18 04:49 0.50 mg/dL (0.1-1.2) 08/08/18 20:47 AST 38 units/L (5-40) 08/08/18 20:47 ALT 28 units/L (7-56) 08/08/18 20:47 100 units/L (35-129) 08/08/18 20:47 113 units/L (55-170) 08/09/18 11:45 CK-MB (CK-2) 5.8 ng/mL (0.0-4.0) H 08/09/18 11:45 CK-MB (CK-2) Rel Index 5.1 (0-4) H 08/09/18 11:45 0.255 ng/mL (0.00-0.029) H* 08/09/18 11:45 NT-Pro-B Natriuret Pep > 13803 pg/mL (0-450) H 08/08/18 21:10 8.9 g/dL (6.3-8.2) H 08/08/18 20:47 3.7 g/dL (3.9-5) L 08/08/18 20:47 0.7 % 08/08/18 20:47 Triglycerides 56 mg/dL (2-149) 08/08/18 21:10 Cholesterol 96 mg/dL (50-199) 08/08/18 21:10 43 mg/dL (50-130) L 08/08/18 21:10 43 mg/dL (40-59) 08/08/18 21:10 2.23 % 08/08/18 21:10 Active Medications - Current Medications Current Medications: Generic Name Dose Route Start Last Admin Trade Name [place]q PRN Reason Stop Dose Admin Acetaminophen 650 mg 08/09/18 00:08 Tylenol PO Q4H PRN Pain MILD(1-3)/Fever >100.5/JENKINS Albuterol 2.5 mg 08/09/18 04:32 Proventil IH Q4HRT PRN Shortness Of Breath Alprazolam 0.5 mg 08/09/18 10:00 08/10/18 21:30 Xanax PO 0.5 mg Q12HR CHONG Administration Aspirin 81 mg 08/09/18 10:00 08/10/18 13:08 Halfprin Ec PO Not Given QDAY CHONG Atorvastatin Calcium 40 mg 08/09/18 22:00 08/10/18 21:29 Lipitor PO 40 mg QHS CHONG Administration Carvedilol 25 mg 08/09/18 10:00 08/10/18 21:30 Coreg PO 25 mg BID CHONG Administration Dextrose 50 ml 08/09/18 00:08 D50w (25gm) Syringe IV PRN PRN Hypoglycemia Enoxaparin Sodium 30 mg 08/09/18 10:00 08/10/18 13:09 Lovenox SUB-Q Not Given QDAY CHONG Gabapentin 100 mg 08/09/18 06:00 08/11/18 05:37 Neurontin PO 100 mg Q8HR CHONG Administration Hydralazine HCl 100 mg 08/09/18 08:00 08/10/18 21:29 Apresoline PO 100 mg TID CHONG Administration Hydralazine HCl 20 mg 08/09/18 18:23 08/11/18 00:47 Apresoline IV 20 mg Q4HR PRN Administration SBP greater than 170 Sodium Chloride 100 mls @ 999 mls/hr 08/09/18 10:23 Nacl 0.9% IV APRIL PRN Hypotension Insulin Human Lispro 0 unit 08/09/18 07:30 08/11/18 00:40 Humalog SUB-Q Not Given ACHS [facility] Protocol Morphine Sulfate 2 mg 08/09/18 05:03 08/11/18 09:45 Morphine IV 2 mg Q4H PRN Administration Pain , Severe (7-10) Multivit/Ca Carb/B Cmplx/FA/Prenat 1 cap 08/09/18 10:00 08/10/18 13:09 Renal Caps PO Not Given QDAY CHONG Nifedipine 90 mg 08/09/18 10:00 08/10/18 21:29 Procardia Xl PO 90 mg BID CHONG Administration Ondansetron HCl 4 mg 08/09/18 00:08 08/11/18 09:52 Zofran IV 4 mg Q8H PRN Administration Nausea And Vomiting Oxycodone HCl 2.5 mg 08/09/18 04:54 Roxicodone PO Q6H PRN Pain, Moderate (4-6) Oxycodone/Acetaminophen 1 tab 08/09/18 04:54 Percocet 5/325 PO Q6H PRN Pain, Moderate (4-6) Pantoprazole Sodium 40 mg 08/09/18 10:00 08/10/18 13:09 Protonix PO Not Given DAILY CHONG Sodium Chloride 10 ml 08/09/18 10:00 08/10/18 21:32 Sodium Chloride Flush Syringe 10 Ml IV 10 ml BID CHONG Administration Sodium Chloride 10 ml 08/09/18 00:08 Sodium Chloride Flush Syringe 10 Ml IV PRN PRN LINE FLUSH Trazodone HCl 100 mg 08/09/18 22:00 08/10/18 21:30 Desyrel PO 100 mg QHS CHONG Administration Nutrition/Malnutrition Assess - Dietary Evaluation Nutrition/Malnutrition Findings: Nutrition Notes Start: 08/09/18 14:31 Freq: Status: Active Protocol: Document 08/10/18 17:44 RM (Rec: 08/10/18 17:45 RM [id number]) Nutrition Notes Initial or Follow up Brief Note Labs/Tests BG 79 Subjective/Other Information Pt not in room at time of visit. No A1c in record. Nutrition Intervention Follow-Up By: 08/11/18 Additional Comments Follow for renal diet education needs
--- NOTE | 2018-08-11 10:55 | Progress Note ---
Assessment and Plan Impression * End-stage renal disease on maintenance hemodialysis * Hyperkalemia * Anasarca * Noncompliance * Anemia secondary to ESRD * Pleural effusion as well as ascites. * Need to rule out pericardial effusion Recommendations * Remove fluid as tolerated * Patient is significantly volume overloaded. Plan to dialyze him daily and remove fluid * needs an echocardiogram to rule out pericardial effusion * Procrit with dialysis * Binders with meals * Avoid nephrotoxins * Monitor fluid status and electrolytes closely * No IV, BP or venipuncture in his access arm Subjective Date of service: 08/11/18 Principal diagnosis: anasarca Interval history: resting in bed today Objective - Exam Narrative Exam: - General Limitations: No Limitations General appearance: alert, in no apparent distress, other (pleasant articulate and appears chronically ill) - Head Head exam: Present: atraumatic, normocephalic - Eye Eye exam: Present: normal appearance - ENT ENT exam: Present: mucous membranes moist - Neck Neck exam: Present: normal inspection, full ROM - Respiratory Respiratory exam: Present: normal lung sounds bilaterally. Absent: respiratory distress, wheezes, rales, rhonchi - Cardiovascular Cardiovascular Exam: Present: regular rate, normal rhythm, normal heart sounds. Absent: systolic murmur, diastolic murmur, rubs, gallop - GI/Abdominal GI/Abdominal exam: Present: soft, distended, tenderness (LLQ), guarding (voluntary), normal bowel sounds - Rectal Rectal exam: Present: deferred - Extremities Exam Extremities exam: Present: normal inspection - Back Exam Back exam: Present: normal inspection - Neurological Exam Neurological exam: Present: alert, oriented X3 - Psychiatric Psychiatric exam: Present: normal affect, normal mood - Skin Skin exam: Present: warm, dry, intact, pallor. Absent: rash - Vital Signs Vital signs: Vital Signs - 12hr 08/11/18 08/11/18 08/11/18 00:00 00:15 00:47 Temperature 97.2 F L Pulse Rate 90 84 84 Respiratory 18 Rate Respiratory Rate [ generalized] Blood Pressure 178/92 182/98 O2 Sat by Pulse 89 Oximetry 08/11/18 08/11/18 08/11/18 00:48 04:00 04:26 Temperature 97.8 F Pulse Rate 85 Respiratory 20 20 Rate Respiratory 20 Rate [ generalized] Blood Pressure 136/75 O2 Sat by Pulse 90 Oximetry 08/11/18 08/11/18 05:37 09:45 Temperature Pulse Rate Respiratory 20 18 Rate Respiratory Rate [ generalized] Blood Pressure O2 Sat by Pulse Oximetry - Lab 08/10/18 04:49 08/10/18 04:49 Most recent lab results Calcium 8.4 mg/dL (8.4-10.2) 08/10/18 04:49 Medications & Allergies - Medications Allergies/Adverse Reactions: Allergies heparin Allergy (Verified 07/02/18 15:17) lowers platelets Home Medications: Home Medications Medication Instructions Recorded Confirmed Last Taken Type Esomeprazole Magnesium [Nexium] 40 mg PO DAILY #30 capsule. 03/27/18 08/08/18 08/08/18 Rx Folic Acid/Vit B Comp W-C [Renal 1 cap PO QDAY #60 capsule 03/27/18 08/08/18 08/08/18 Rx Caps] hydrALAZINE [Apresoline TAB] 100 mg PO TID #90 tab 03/27/18 08/08/18 08/08/18 Rx traZODone [Desyrel] 100 mg PO QHS #30 tablet 03/27/18 08/08/18 08/08/18 Rx NIFEdipine [Adalat cc] 90 mg PO BID 04/11/18 08/08/18 08/08/18 History Diclofenac Sodium [Voltaren] 100 gm TP Q6H #1 gel..gram. 04/21/18 08/08/18 08/08/18 Rx ALBUTEROL NEB's [Proventil 0.083% 2.5 mg IH Q4HRT PRN nebu 05/19/18 08/08/18 08/08/18 Rx NEBS] Aspirin EC 81 mg PO QDAY tablet 05/19/18 08/08/18 08/08/18 Rx AtorvaSTATin [Lipitor] 40 mg PO QHS tablet 05/19/18 08/08/18 08/08/18 Rx Carvedilol [Coreg] 25 mg PO BID tablet 05/19/18 08/08/18 08/08/18 Rx Oxycodone HCl/Acetaminophen 1 each PO Q6HR PRN #12 tablet 06/26/18 08/08/18 08/08/18 Rx [Percocet 7.5/325 mg] ALPRAZolam [Xanax TAB] 0.5 mg PO Q12HR #10 tablet 07/07/18 08/08/18 08/08/18 Rx Gabapentin [Neurontin] 100 mg PO Q8HR #90 capsule 07/07/18 08/08/18 08/08/18 Rx Active Medications: Generic Name Dose Route Start Last Admin Trade Name Freq PRN Reason Stop Dose Admin Acetaminophen 650 mg 08/09/18 00:08 Tylenol PO Q4H PRN Pain MILD(1-3)/Fever >100.5/JENKINS Albuterol 2.5 mg 08/09/18 04:32 Proventil IH Q4HRT PRN Shortness Of Breath Alprazolam 0.5 mg 08/09/18 10:00 08/10/18 21:30 Xanax PO 0.5 mg Q12HR CHONG Administration Aspirin 81 mg 08/09/18 10:00 08/10/18 13:08 Halfprin Ec PO Not Given QDAY CHONG Atorvastatin Calcium 40 mg 08/09/18 22:00 08/10/18 21:29 Lipitor PO 40 mg QHS CHONG Administration Carvedilol 25 mg 08/09/18 10:00 08/10/18 21:30 Coreg PO 25 mg BID CHONG Administration Dextrose 50 ml 08/09/18 00:08 D50w (25gm) Syringe IV PRN PRN Hypoglycemia Enoxaparin Sodium 30 mg 08/09/18 10:00 08/10/18 13:09 Lovenox SUB-Q Not Given QDAY CHONG Gabapentin 100 mg 08/09/18 06:00 08/11/18 05:37 Neurontin PO 100 mg Q8HR CHONG Administration Hydralazine HCl 100 mg 08/09/18 08:00 08/10/18 21:29 Apresoline PO 100 mg TID CHONG Administration Hydralazine HCl 20 mg 08/09/18 18:23 08/11/18 00:47 Apresoline IV 20 mg Q4HR PRN Administration SBP greater than 170 Sodium Chloride 100 mls @ 999 mls/hr 08/09/18 10:23 Nacl 0.9% IV APRIL PRN Hypotension Insulin Human Lispro 0 unit 08/09/18 07:30 08/11/18 00:40 Humalog SUB-Q Not Given ACHS [facility] Protocol Morphine Sulfate 2 mg 08/09/18 05:03 08/11/18 09:45 Morphine IV 2 mg Q4H PRN Administration Pain , Severe (7-10) Multivit/Ca Carb/B Cmplx/FA/Prenat 1 cap 08/09/18 10:00 08/10/18 13:09 Renal Caps PO Not Given QDAY CHONG Nifedipine 90 mg 08/09/18 10:00 08/10/18 21:29 Procardia Xl PO 90 mg BID CHONG Administration Ondansetron HCl 4 mg 08/09/18 00:08 08/11/18 09:52 Zofran IV 4 mg Q8H PRN Administration Nausea And Vomiting Oxycodone HCl 2.5 mg 08/09/18 04:54 Roxicodone PO Q6H PRN Pain, Moderate (4-6) Oxycodone/Acetaminophen 1 tab 08/09/18 04:54 Percocet 5/325 PO Q6H PRN Pain, Moderate (4-6) Pantoprazole Sodium 40 mg 08/09/18 10:00 08/10/18 13:09 Protonix PO Not Given DAILY CHONG Sodium Chloride 10 ml 08/09/18 10:00 08/10/18 21:32 Sodium Chloride Flush Syringe 10 Ml IV 10 ml BID CHONG Administration Sodium Chloride 10 ml 08/09/18 00:08 Sodium Chloride Flush Syringe 10 Ml IV PRN PRN LINE FLUSH Trazodone HCl 100 mg 08/09/18 22:00 08/10/18 21:30 Desyrel PO 100 mg QHS CHONG Administration
[2018-08-11] MEDS: COREG PO SCH ×2 (17:40→21:31)
[2018-08-11] MEDS: Renal Caps PO SCH (17:40)
[2018-08-11] MEDS: PROCARDIA XL PO SCH ×2 (17:41→21:32)
[2018-08-11] MEDS: PROTONIX PO SCH (17:41)
[2018-08-11] MEDS: APRESOLINE PO SCH ×2 (17:41→21:31)
[2018-08-11] MEDS: HALFPRIN EC PO SCH (17:41)
[2018-08-11] MEDS: LOVENOX SUB-Q SCH (17:42)
[2018-08-11] MEDS: DESYREL PO SCH (21:31)
[2018-08-11] MEDS: XANAX PO SCH (21:31)
[2018-08-11] MEDS: SODIUM CHLORIDE FLUSH SYRINGE 10 ML IV SCH (21:32)
[2018-08-12] MEDS: DICLOFENAC 1% TP SCH ×4 (00:26→18:00)
[2018-08-12] MEDS: MORPHINE IV PRN ×4 (02:30→17:30)
[2018-08-12] MEDS: NEURONTIN PO SCH ×3 (06:09→22:00)
[2018-08-12] MEDS: HumaLOG SUB-Q SCH ×3 (08:53→22:02)
[2018-08-12] MEDS: APRESOLINE PO SCH ×3 (09:15→20:56)
--- NOTE | 2018-08-12 10:58 | Progress Note ---
Assessment and Plan Assessment and plan: ESRD. Continue hemodialysis per nephrology. Nephrology plans to dialyze him daily for now. Hyperkalemia. Resolved. Follow-up BMP. Anasarca. Medical noncompliance. Patient has been counseled. Anemia of ESRD. Follow H&H and transfuse for hemoglobin less than 7. Continue Procrit with hemodialysis. Acute on chronic heart failure with reduced ejection fraction. Patient with a history of nonischemic cardiomyopathy. Continue hemodialysis for negative fluid balance. Bilateral pleural effusions. Hemodialysis per nephrology. Echocardiogram revealed a small pericardial effusion, LVH and EF of 40-50%. Recurrent ascites. Patient is status post paracentesis Pericardial effusion. Echocardiogram revealed small pericardial effusion. Elevated troponin. Patient with chronically elevated troponin in setting of ESRD. History Interval history: No new issues overnight. Hospitalist Physical - Constitutional Vitals: Temp Pulse Resp BP Pulse Ox 97.6 F 81 22 122/65 91 08/12/18 08:22 08/12/18 08:29 08/12/18 09:16 08/12/18 08:22 08/12/18 08:22 General appearance: Present: no acute distress - EENT Eyes: Present: PERRL, EOM intact ENT: hearing intact, clear oral mucosa, dentition normal - Neck Neck: Present: supple, normal ROM - Respiratory Respiratory effort: normal Respiratory: bilateral: CTA - Cardiovascular Rhythm: regular Heart Sounds: Present: S1 & S2. Absent: gallop, rub - Extremities Extremities: no ischemia, No edema, Full ROM - Abdominal General gastrointestinal: soft, non-tender, distended, normal bowel sounds Localized gastrointestinal: tender: LLQ (mild) - Integumentary Integumentary: Present: clear, warm, dry - Neurologic Neurologic: CNII-XII intact, moves all extremities Results - Labs CBC & Chem 7: 08/10/18 04:49 08/10/18 04:49 Labs: Laboratory Last Values WBC 7.6 K/mm3 (4.5-11.0) 08/10/18 04:49 RBC 3.00 M/mm3 (3.65-5.03) L 08/10/18 04:49 Hgb 8.4 gm/dl (11.8-15.2) L 08/10/18 04:49 Hct 26.0 % (35.5-45.6) L 08/10/18 04:49 MCV 87 fl (84-94) 08/10/18 04:49 MCH 28 pg (28-32) 08/10/18 04:49 MCHC 32 % (32-34) 08/10/18 04:49 RDW 20.0 % (13.2-15.2) H 08/10/18 04:49 Plt Count 200 K/mm3 (140-440) 08/10/18 04:49 Lymph % (Auto) 19.3 % (13.4-35.0) 08/10/18 04:49 [place] % (Auto) 7.4 % (0.0-7.3) H 08/10/18 04:49 Eos % (Auto) 3.5 % (0.0-4.3) 08/10/18 04:49 Baso % (Auto) 1.6 % (0.0-1.8) 08/10/18 04:49 Lymph # 1.5 K/mm3 (1.2-5.4) 08/10/18 04:49 [place] # 0.6 K/mm3 (0.0-0.8) 08/10/18 04:49 Eos # 0.3 K/mm3 (0.0-0.4) 08/10/18 04:49 Baso # 0.1 K/mm3 (0.0-0.1) 08/10/18 04:49 Seg Neutrophils % 68.2 % (40.0-70.0) 08/10/18 04:49 Seg Neutrophils # 5.2 K/mm3 (1.8-7.7) 08/10/18 04:49 PT 16.4 Sec. (12.2-14.9) H 08/09/18 08:56 INR 1.24 (0.87-1.13) H 08/09/18 08:56 Sodium 139 mmol/L (137-145) 08/10/18 04:49 Potassium 5.1 mmol/L (3.6-5.0) H 08/10/18 04:49 Chloride 97.8 mmol/L (98-107) L 08/10/18 04:49 Carbon Dioxide 26 mmol/L (22-30) 08/10/18 04:49 20 mmol/L 08/10/18 04:49 BUN 45 mg/dL (9-20) H 08/10/18 04:49 6.7 mg/dL (0.8-1.5) H 08/10/18 04:49 Estimated GFR 10 ml/min 08/10/18 04:49 7 % 08/10/18 04:49 Glucose 79 mg/dL (75-100) 08/10/18 04:49 POC Glucose 113 (70-105) H 08/12/18 08:30 Calcium 8.4 mg/dL (8.4-10.2) 08/10/18 04:49 0.50 mg/dL (0.1-1.2) 08/08/18 20:47 AST 38 units/L (5-40) 08/08/18 20:47 ALT 28 units/L (7-56) 08/08/18 20:47 100 units/L (35-129) 08/08/18 20:47 113 units/L (55-170) 08/09/18 11:45 CK-MB (CK-2) 5.8 ng/mL (0.0-4.0) H 08/09/18 11:45 CK-MB (CK-2) Rel Index 5.1 (0-4) H 08/09/18 11:45 0.255 ng/mL (0.00-0.029) H* 08/09/18 11:45 NT-Pro-B Natriuret Pep > 97472 pg/mL (0-450) H 08/08/18 21:10 8.9 g/dL (6.3-8.2) H 08/08/18 20:47 3.7 g/dL (3.9-5) L 08/08/18 20:47 0.7 % 08/08/18 20:47 Triglycerides 56 mg/dL (2-149) 08/08/18 21:10 Cholesterol 96 mg/dL (50-199) 08/08/18 21:10 43 mg/dL (50-130) L 08/08/18 21:10 43 mg/dL (40-59) 08/08/18 21:10 2.23 % 08/08/18 21:10 Active Medications - Current Medications Current Medications: Generic Name Dose Route Start Last Admin Trade Name Tyroneq PRN Reason Stop Dose Admin Acetaminophen 650 mg 08/09/18 00:08 Tylenol PO Q4H PRN Pain MILD(1-3)/Fever >100.5/JENKINS Albuterol 2.5 mg 08/09/18 04:32 Proventil IH Q4HRT PRN Shortness Of Breath Alprazolam 0.5 mg 08/09/18 10:00 08/11/18 21:31 Xanax PO 0.5 mg Q12HR CHONG Administration Aspirin 81 mg 08/09/18 10:00 08/11/18 17:41 Halfprin Ec PO 81 mg QDAY CHONG Administration Atorvastatin Calcium 40 mg 08/09/18 22:00 08/11/18 21:30 Lipitor PO 40 mg QHS CHONG Administration Carvedilol 25 mg 08/09/18 10:00 08/11/18 21:31 Coreg PO 25 mg BID CHONG Administration Dextrose 50 ml 08/09/18 00:08 D50w (25gm) Syringe IV PRN PRN Hypoglycemia Enoxaparin Sodium 30 mg 08/09/18 10:00 08/11/18 17:42 Lovenox SUB-Q 30 mg QDAY CHONG Administration Gabapentin 100 mg 08/09/18 06:00 08/12/18 06:09 Neurontin PO 100 mg Q8HR CHONG Administration Hydralazine HCl 100 mg 08/09/18 08:00 08/12/18 09:15 Apresoline PO 100 mg TID CHONG Administration Hydralazine HCl 20 mg 08/09/18 18:23 08/11/18 00:47 Apresoline IV 20 mg Q4HR PRN Administration SBP greater than 170 Sodium Chloride 100 mls @ 999 mls/hr 08/09/18 10:23 Nacl 0.9% IV APRIL PRN Hypotension Insulin Human Lispro 0 unit 08/09/18 07:30 08/12/18 08:53 Humalog SUB-Q Not Given ACHS [facility] Protocol Morphine Sulfate 2 mg 08/09/18 05:03 08/12/18 09:16 Morphine IV 2 mg Q4H PRN Administration Pain , Severe (7-10) Multivit/Ca Carb/B Cmplx/FA/Prenat 1 cap 08/09/18 10:00 08/11/18 17:40 Renal Caps PO 1 cap QDAY CHONG Administration Nifedipine 90 mg 08/09/18 10:00 08/11/18 21:32 Procardia Xl PO 90 mg BID CHONG Administration Ondansetron HCl 4 mg 08/09/18 00:08 08/11/18 09:52 Zofran IV 4 mg Q8H PRN Administration Nausea And Vomiting Oxycodone HCl 2.5 mg 08/09/18 04:54 Roxicodone PO Q6H PRN Pain, Moderate (4-6) Oxycodone/Acetaminophen 1 tab 08/09/18 04:54 Percocet 5/325 PO Q6H PRN Pain, Moderate (4-6) Pantoprazole Sodium 40 mg 08/09/18 10:00 08/11/18 17:41 Protonix PO 40 mg DAILY CHONG Administration Sodium Chloride 10 ml 08/09/18 10:00 08/11/18 21:32 Sodium Chloride Flush Syringe 10 Ml IV 10 ml BID CHONG Administration Sodium Chloride 10 ml 08/09/18 00:08 Sodium Chloride Flush Syringe 10 Ml IV PRN PRN LINE FLUSH Trazodone HCl 100 mg 08/09/18 22:00 08/11/18 21:31 Desyrel PO 100 mg QHS CHONG Administration Nutrition/Malnutrition Assess - Dietary Evaluation Nutrition/Malnutrition Findings: Nutrition Notes Start: 08/09/18 14:31 Freq: Status: Active Protocol: Document 08/11/18 15:22 RM (Rec: 08/11/18 15:23 RM [id number]) Nutrition Notes Initial or Follow up Brief Note Subjective/Other Information Pt not in room at time of visit. Nutrition Intervention Follow-Up By: 08/12/18 Additional Comments follow for renal diet education needs
[2018-08-12] MEDS ORDERED: NACL 0.9 (PRIMING MACHINE ONLY DIALYSIS) MC ONE (11:53)
--- NOTE | 2018-08-12 14:54 | Progress Note ---
Subjective Date of service: 08/12/18 Principal diagnosis: anasarca Interval history: Volume overload Chronic systolic heart failure Pericardial effusion s/p pericardiocentesis 06/2018 limited echo this admission reports a small pericardial effusion, large left pleural effusion, EF improved to 40-50%. Bilateral pleural effusions ESRD on dialysis Hypertension Non-ischemic cardiomyopathy [facility] 07/2017: no significant coronary artery disease but a decreased left ventricular ejection fraction 15-20%. Chronic Ascites with intermittent paracentesis. Chronic anemia Chronic hypoxic respiratory failure on home oxygen Non-compliance with outpatient cardiac follow-ups Chronically elevated troponin in the setting of ESRD Recommendations: Dialysis for fluid management. Continue medical therapy for nonischemic cardiomyopathy and chronic systolic heart failure. Objective Vital Signs Temp Pulse Resp Resp BP Pulse Ox 08/12/18 13:45 77 155/75 08/12/18 13:30 76 150/74 08/12/18 13:15 78 150/73 08/12/18 13:00 76 114/60 08/12/18 12:45 76 134/64 08/12/18 12:30 79 130/63 08/12/18 12:15 84 146/74 08/12/18 12:00 82 138/73 08/12/18 11:45 78 143/69 08/12/18 11:30 81 133/75 08/12/18 11:15 81 144/75 08/12/18 11:00 97.6 F 80 18 133/75 08/12/18 10:00 99 08/12/18 09:46 20 08/12/18 09:16 22 08/12/18 08:29 81 08/12/18 08:22 97.6 F 78 18 122/65 91 08/12/18 08:00 20 96 08/12/18 04:06 98.1 F 77 18 117/62 89 08/12/18 02:30 20 08/12/18 00:00 82 08/11/18 23:21 98.3 F 77 17 140/76 91 08/11/18 21:31 80 169/94 08/11/18 20:00 96 08/11/18 19:39 98.2 F 80 19 169/94 91 08/11/18 18:11 18 08/11/18 17:41 20 08/11/18 17:40 166/84 08/11/18 16:23 97.2 F L 85 18 166/88 92 08/11/18 16:00 85 18 - Physical Examination General: Appears Well, No Apparent Distress HEENT: Positive: PERRL Neck: Positive: trachea midline Cardiac: Positive: Reg Rate and Rhythm, S1/S2 Lungs: Positive: Normal Exam Neuro: Positive: Grossly Intact Abdomen: Positive: Unremarkable Extremities: Absent: edema
--- NOTE | 2018-08-12 15:14 | Progress Note ---
Assessment and Plan - Patient Problems (1) Anemia of renal disease Current Visit: No Status: Chronic Plan to address problem: Anemia of renal disease Hb: Moderate anemia 8.4g/dl epogen [id number] [place] . (2) End stage renal disease Current Visit: No Status: Acute Plan to address problem: End-stage renal disease access left arm aVF Continue hemodialysis UF 3 L removed (3) Acute and chronic respiratory failure with hypoxia Current Visit: No Status: Acute Plan to address problem: Acute on chronic respiratory failure Continue supplemental oxygen (4) Essential hypertension Current Visit: No Status: Chronic Plan to address problem: HTN; controlled continue meds. Subjective Principal diagnosis: anasarca Interval history: 28-year-old gentleman with congestive heart failure, hypertension end-stage renal disease on hemodialysis on Tuesday I attest I saw the patient on hemodialysis UF: 3L Objective - Vital Signs Vital signs: Vital Signs - 12hr 08/12/18 08/12/18 08/12/18 04:06 08:00 08:22 Temperature 98.1 F 97.6 F Pulse Rate 77 78 Respiratory 18 20 18 Rate Blood Pressure 117/62 122/65 O2 Sat by Pulse 89 96 91 Oximetry 08/12/18 08/12/18 08/12/18 08:29 09:16 09:46 Temperature Pulse Rate 81 Respiratory 22 20 Rate Blood Pressure O2 Sat by Pulse Oximetry 08/12/18 08/12/18 08/12/18 10:00 11:00 11:15 Temperature 97.6 F Pulse Rate 80 81 Respiratory 18 Rate Blood Pressure 133/75 144/75 O2 Sat by Pulse 99 Oximetry 08/12/18 08/12/18 08/12/18 11:30 11:45 12:00 Temperature Pulse Rate 81 78 82 Respiratory Rate Blood Pressure 133/75 143/69 138/73 O2 Sat by Pulse Oximetry 08/12/18 08/12/18 08/12/18 12:15 12:30 12:45 Temperature Pulse Rate 84 79 76 Respiratory Rate Blood Pressure 146/74 130/63 134/64 O2 Sat by Pulse Oximetry 08/12/18 08/12/18 08/12/18 13:00 13:15 13:30 Temperature Pulse Rate 76 78 76 Respiratory Rate Blood Pressure 114/60 150/73 150/74 O2 Sat by Pulse Oximetry 08/12/18 08/12/1808/12/19 13:45 14:00 14:15 Temperature Pulse Rate 77 75 79 Respiratory Rate Blood Pressure 155/75 163/82 149/81 O2 Sat by Pulse Oximetry 08/12/18 14:30 Temperature Pulse Rate 78 Respiratory Rate Blood Pressure 148/80 O2 Sat by Pulse Oximetry - General Appearance General appearance: well-developed, well-nourished EENT: ATNC, PERRL Respiratory: Present: Clear to Ascultation Cardiology: regular, S1S2 Gastrointestinal: normal, normoactive bowel sounds Integumentary: no rash Neurologic: no focal deficit, CN 3-12 intact Musculoskeletal: deferred Psychiatric: mood/affect appropriate - Lab 08/10/18 04:49 08/10/18 04:49 Most recent lab results Calcium 8.4 mg/dL (8.4-10.2) 08/10/18 04:49 Medications & Allergies - Medications Allergies/Adverse Reactions: Allergies heparin Allergy (Verified 07/02/18 15:17) lowers platelets Home Medications: Home Medications Medication Instructions Recorded Confirmed Last Taken Type Esomeprazole Magnesium [Nexium] 40 mg PO DAILY #30 capsule. 03/27/18 08/08/18 08/08/18 Rx Folic Acid/Vit B Comp W-C [Renal 1 cap PO QDAY #60 capsule 03/27/18 08/08/18 08/08/18 Rx Caps] hydrALAZINE [Apresoline TAB] 100 mg PO TID #90 tab 03/27/18 08/08/18 08/08/18 Rx traZODone [Desyrel] 100 mg PO QHS #30 tablet 03/27/18 08/08/18 08/08/18 Rx NIFEdipine [Adalat cc] 90 mg PO BID 04/11/18 08/08/18 08/08/18 History Diclofenac Sodium [Voltaren] 100 gm TP Q6H #1 gel..gram. 04/21/18 08/08/18 08/08/18 Rx ALBUTEROL NEB's [Proventil 0.083% 2.5 mg IH Q4HRT PRN nebu 05/19/18 08/08/18 08/08/18 Rx NEBS] Aspirin EC 81 mg PO QDAY tablet 05/19/18 08/08/18 08/08/18 Rx AtorvaSTATin [Lipitor] 40 mg PO QHS tablet 05/19/18 08/08/18 08/08/18 Rx Carvedilol [Coreg] 25 mg PO BID tablet 05/19/18 08/08/18 08/08/18 Rx Oxycodone HCl/Acetaminophen 1 each PO Q6HR PRN #12 tablet 06/26/18 08/08/18 08/08/18 Rx [Percocet 7.5/325 mg] ALPRAZolam [Xanax TAB] 0.5 mg PO Q12HR #10 tablet 07/07/18 08/08/18 08/08/18 Rx Gabapentin [Neurontin] 100 mg PO Q8HR #90 capsule 07/07/18 08/08/18 08/08/18 Rx Active Medications: Generic Name Dose Route Start Last Admin Trade Name Freq PRN Reason Stop Dose Admin Acetaminophen 650 mg 08/09/18 00:08 Tylenol PO Q4H PRN Pain MILD(1-3)/Fever >100.5/JENKINS Albuterol 2.5 mg 08/09/18 04:32 Proventil IH Q4HRT PRN Shortness Of Breath Alprazolam 0.5 mg 08/09/18 10:00 08/11/18 21:31 Xanax PO 0.5 mg Q12HR CHONG Administration Aspirin 81 mg 08/09/18 10:00 08/11/18 17:41 Halfprin Ec PO 81 mg QDAY CHONG Administration Atorvastatin Calcium 40 mg 08/09/18 22:00 08/11/18 21:30 Lipitor PO 40 mg QHS CHNOG Administration Carvedilol 25 mg 08/09/18 10:00 08/11/18 21:31 Coreg PO 25 mg BID CHONG Administration Dextrose 50 ml 08/09/18 00:08 D50w (25gm) Syringe IV PRN PRN Hypoglycemia Enoxaparin Sodium 30 mg 08/09/18 10:00 08/11/18 17:42 Lovenox SUB-Q 30 mg QDAY CHONG Administration Gabapentin 100 mg 08/09/18 06:00 08/12/18 06:09 Neurontin PO 100 mg Q8HR CHONG Administration Hydralazine HCl 100 mg 08/09/18 08:00 08/12/18 09:15 Apresoline PO 100 mg TID CHONG Administration Hydralazine HCl 20 mg 08/09/18 18:23 08/11/18 00:47 Apresoline IV 20 mg Q4HR PRN Administration SBP greater than 170 Sodium Chloride 100 mls @ 999 mls/hr 08/09/18 10:23 Nacl 0.9% IV APRIL PRN Hypotension Insulin Human Lispro 0 unit 08/09/18 07:30 08/12/18 08:53 Humalog SUB-Q Not Given ACHS [facility] Protocol Morphine Sulfate 2 mg 08/09/18 05:03 08/12/18 13:15 Morphine IV 2 mg Q4H PRN Administration Pain , Severe (7-10) Multivit/Ca Carb/B Cmplx/FA/Prenat 1 cap 08/09/18 10:00 08/11/18 17:40 Renal Caps PO 1 cap QDAY CHONG Administration Nifedipine 90 mg 08/09/18 10:00 08/11/18 21:32 Procardia Xl PO 90 mg BID CHONG Administration Ondansetron HCl 4 mg 08/09/18 00:08 08/11/18 09:52 Zofran IV 4 mg Q8H PRN Administration Nausea And Vomiting Oxycodone HCl 2.5 mg 08/09/18 04:54 Roxicodone PO Q6H PRN Pain, Moderate (4-6) Oxycodone/Acetaminophen 1 tab 08/09/18 04:54 Percocet 5/325 PO Q6H PRN Pain, Moderate (4-6) Pantoprazole Sodium 40 mg 08/09/18 10:00 08/11/18 17:41 Protonix PO 40 mg DAILY CHONG Administration Sodium Chloride 10 ml 08/09/18 10:00 08/11/18 21:32 Sodium Chloride Flush Syringe 10 Ml IV 10 ml BID CHONG Administration Sodium Chloride 10 ml 08/09/18 00:08 Sodium Chloride Flush Syringe 10 Ml IV PRN PRN LINE FLUSH Trazodone HCl 100 mg 08/09/18 22:00 08/11/18 21:31 Desyrel PO 100 mg QHS CHONG Administration
[2018-08-12] MEDS: PROCARDIA XL PO SCH ×2 (17:29→22:00)
[2018-08-12] MEDS: XANAX PO SCH ×2 (17:30→22:00)
[2018-08-12] MEDS: PROTONIX PO SCH (17:30)
[2018-08-12] MEDS: Renal Caps PO SCH (17:30)
[2018-08-12] MEDS: LOVENOX SUB-Q SCH (17:30)
[2018-08-12] MEDS: COREG PO SCH ×2 (17:30→22:00)
[2018-08-12] MEDS: HALFPRIN EC PO SCH (17:30)
[2018-08-12] MEDS: ROXICODONE PO PRN (20:57)
[2018-08-12] MEDS: DESYREL PO SCH (22:00)
[2018-08-12] MEDS: SODIUM CHLORIDE FLUSH SYRINGE 10 ML IV SCH (22:02)
[2018-08-13] MEDS: DICLOFENAC 1% TP SCH ×5 (00:56→22:17)
[2018-08-13] MEDS: MORPHINE IV PRN ×4 (04:38→21:41)
[2018-08-13 06:02] LABS: Basophils # (Auto) 0.1 K/mm3 (0.0-0.1); Basophils % (Auto) 1.3 % (0.0-1.8); Eosinophils # (Auto) 0.2 K/mm3 (0.0-0.4); Eosinophils % (Auto) 3.4 % (0.0-4.3); Hematocrit 24.3 % (35.5-45.6); Lymphocytes # (Auto) 1.3 K/mm3 (1.2-5.4); Mean Corpuscular HGB Conc 33 % (32-34); Mean Corpuscular Volume 85 fl (84-94); Monocytes # (Auto) 0.6 K/mm3 (0.0-0.8); Monocytes % (Auto) 10.1 % (0.0-7.3); Platelet Count 108 K/mm3 (140-440); Red Blood Count 2.87 M/mm3 (3.65-5.03); Red Cell Distribution Width 19.8 % (13.2-15.2)
[2018-08-13] MEDS: NEURONTIN PO SCH ×3 (06:05→21:40)
[2018-08-13 06:23] LABS: Calcium 9.1 mg/dL (8.4-10.2)
[2018-08-13] MEDS: HumaLOG SUB-Q SCH ×4 (08:35→21:43)
[2018-08-13] MEDS: APRESOLINE PO SCH ×4 (09:05→21:41)
--- NOTE | 2018-08-13 10:42 | Progress Note ---
Assessment and Plan Assessment and plan: ESRD. Continue hemodialysis per nephrology. Hyperkalemia. Resolved. Follow-up BMP. Anasarca. Medical noncompliance. Patient has been counseled. Anemia of ESRD. Follow H&H and transfuse for hemoglobin less than 7. Continue Procrit with hemodialysis. Acute on chronic heart failure with reduced ejection fraction. Patient with a history of nonischemic cardiomyopathy. Continue hemodialysis for negative fluid balance. Bilateral pleural effusions. Hemodialysis per nephrology. Echocardiogram revealed a small pericardial effusion, LVH and EF of 40-50%. Recurrent ascites. Patient is status post paracentesis Pericardial effusion. Echocardiogram revealed small pericardial effusion. Elevated troponin. Patient with chronically elevated troponin in setting of ESRD. History Interval history: No new issues overnight. Hospitalist Physical - Constitutional Vitals: Temp Pulse Resp BP Pulse Ox 97.6 F 79 20 137/68 95 08/13/18 08:36 08/13/18 08:36 08/13/18 09:05 08/13/18 08:36 08/13/18 08:36 General appearance: Present: no acute distress - EENT Eyes: Present: PERRL, EOM intact ENT: hearing intact, clear oral mucosa, dentition normal - Neck Neck: Present: supple, normal ROM - Respiratory Respiratory effort: normal Respiratory: bilateral: CTA - Cardiovascular Rhythm: regular Heart Sounds: Present: S1 & S2. Absent: gallop, rub - Extremities Extremities: no ischemia, No edema, Full ROM - Abdominal General gastrointestinal: soft, non-tender, non-distended, normal bowel sounds - Integumentary Integumentary: Present: clear, warm, dry - Neurologic Neurologic: CNII-XII intact, moves all extremities Results - Labs CBC & Chem 7: 08/13/18 05:30 08/13/18 05:30 Labs: Laboratory Last Values WBC 6.0 K/mm3 (4.5-11.0) 08/13/18 05:30 RBC 2.87 M/mm3 (3.65-5.03) L 08/13/18 05:30 Hgb 8.0 gm/dl (11.8-15.2) L 08/13/18 05:30 Hct 24.3 % (35.5-45.6) L 08/13/18 05:30 MCV 85 fl (84-94) 08/13/18 05:30 MCH 28 pg (28-32) 08/13/18 05:30 MCHC 33 % (32-34) 08/13/18 05:30 RDW 19.8 % (13.2-15.2) H 08/13/18 05:30 Plt Count 108 K/mm3 (140-440) L 08/13/18 05:30 Lymph % (Auto) 21.0 % (13.4-35.0) 08/13/18 05:30 [place] % (Auto) 10.1 % (0.0-7.3) H 08/13/18 05:30 Eos % (Auto) 3.4 % (0.0-4.3) 08/13/18 05:30 Baso % (Auto) 1.3 % (0.0-1.8) 08/13/18 05:30 Lymph # 1.3 K/mm3 (1.2-5.4) 08/13/18 05:30 [place] # 0.6 K/mm3 (0.0-0.8) 08/13/18 05:30 Eos # 0.2 K/mm3 (0.0-0.4) 08/13/18 05:30 Baso # 0.1 K/mm3 (0.0-0.1) 08/13/18 05:30 Seg Neutrophils % 64.2 % (40.0-70.0) 08/13/18 05:30 Seg Neutrophils # 3.9 K/mm3 (1.8-7.7) 08/13/18 05:30 PT 16.4 Sec. (12.2-14.9) H 08/09/18 08:56 INR 1.24 (0.87-1.13) H 08/09/18 08:56 Sodium 136 mmol/L (137-145) L 08/13/18 05:30 Potassium 4.0 mmol/L (3.6-5.0) D 08/13/18 05:30 Chloride 96.9 mmol/L (98-107) L 08/13/18 05:30 Carbon Dioxide 29 mmol/L (22-30) 08/13/18 05:30 14 mmol/L 08/13/18 05:30 BUN 17 mg/dL (9-20) 08/13/18 05:30 3.2 mg/dL (0.8-1.5) H D 08/13/18 05:30 Estimated GFR 23 ml/min 08/13/18 05:30 5 % 08/13/18 05:30 Glucose 93 mg/dL (75-100) 08/13/18 05:30 POC Glucose 88 (70-105) 08/12/18 20:38 Calcium 9.1 mg/dL (8.4-10.2) 08/13/18 05:30 0.50 mg/dL (0.1-1.2) 08/08/18 20:47 AST 38 units/L (5-40) 08/08/18 20:47 ALT 28 units/L (7-56) 08/08/18 20:47 100 units/L (35-129) 08/08/18 20:47 113 units/L (55-170) 08/09/18 11:45 CK-MB (CK-2) 5.8 ng/mL (0.0-4.0) H 08/09/18 11:45 CK-MB (CK-2) Rel Index 5.1 (0-4) H 08/09/18 11:45 0.255 ng/mL (0.00-0.029) H* 08/09/18 11:45 NT-Pro-B Natriuret Pep > 75209 pg/mL (0-450) H 08/08/18 21:10 8.9 g/dL (6.3-8.2) H 08/08/18 20:47 3.7 g/dL (3.9-5) L 08/08/18 20:47 0.7 % 08/08/18 20:47 Triglycerides 56 mg/dL (2-149) 08/08/18 21:10 Cholesterol 96 mg/dL (50-199) 08/08/18 21:10 43 mg/dL (50-130) L 08/08/18 21:10 43 mg/dL (40-59) 08/08/18 21:10 2.23 % 08/08/18 21:10 Active Medications - Current Medications Current Medications: Generic Name Dose Route Start Last Admin Trade Name Freq PRN Reason Stop Dose Admin Acetaminophen 650 mg 08/09/18 00:08 Tylenol PO Q4H PRN Pain MILD(1-3)/Fever >100.5/JENKINS Albuterol 2.5 mg 08/09/18 04:32 Proventil IH Q4HRT PRN Shortness Of Breath Alprazolam 0.5 mg 08/09/18 10:00 08/12/18 22:00 Xanax PO 0.5 mg Q12HR CHONG Administration Aspirin 81 mg 08/09/18 10:00 08/12/18 17:30 Halfprin Ec PO 81 mg QDAY CHONG Administration Atorvastatin Calcium 40 mg 08/09/18 22:00 08/12/18 21:59 Lipitor PO 40 mg QHS CHONG Administration Carvedilol 25 mg 08/09/18 10:00 08/12/18 22:00 Coreg PO 25 mg BID CHONG Administration Dextrose 50 ml 08/09/18 00:08 D50w (25gm) Syringe IV PRN PRN Hypoglycemia Enoxaparin Sodium 30 mg 08/09/18 10:00 08/12/18 17:30 Lovenox SUB-Q 30 mg QDAY CHONG Administration Gabapentin 100 mg 08/09/18 06:00 08/13/18 06:05 Neurontin PO 100 mg Q8HR CHONG Administration Hydralazine HCl 100 mg 08/09/18 08:00 08/13/18 09:05 Apresoline PO 100 mg TID CHONG Administration Hydralazine HCl 20 mg 08/09/18 18:23 08/11/18 00:47 Apresoline IV 20 mg Q4HR PRN Administration SBP greater than 170 Sodium Chloride 100 mls @ 999 mls/hr 08/09/18 10:23 Nacl 0.9% IV APRIL PRN Hypotension Insulin Human Lispro 0 unit 08/09/18 07:30 08/12/18 22:02 Humalog SUB-Q Not Given ACHS [facility] Protocol Morphine Sulfate 2 mg 08/09/18 05:03 08/13/18 09:05 Morphine IV 2 mg Q4H PRN Administration Pain , Severe (7-10) Multivit/Ca Carb/B Cmplx/FA/Prenat 1 cap 08/09/18 10:00 08/12/18 17:30 Renal Caps PO 1 cap QDAY CHONG Administration Nifedipine 90 mg 08/09/18 10:00 08/12/18 22:00 Procardia Xl PO 90 mg BID CHONG Administration Ondansetron HCl 4 mg 08/09/18 00:08 08/11/18 09:52 Zofran IV 4 mg Q8H PRN Administration Nausea And Vomiting Oxycodone HCl 2.5 mg 08/09/18 04:54 08/12/18 20:57 Roxicodone PO 2.5 mg Q6H PRN Administration Pain, Moderate (4-6) Oxycodone/Acetaminophen 1 tab 08/09/18 04:54 08/12/18 20:57 Percocet 5/325 PO 1 tab Q6H PRN Administration Pain, Moderate (4-6) Pantoprazole Sodium 40 mg 08/09/18 10:00 08/12/18 17:30 Protonix PO 40 mg DAILY CHONG Administration Sodium Chloride 10 ml 08/09/18 10:00 08/12/18 22:02 Sodium Chloride Flush Syringe 10 Ml IV 10 ml BID CHONG Administration Sodium Chloride 10 ml 08/09/18 00:08 08/13/18 04:40 Sodium Chloride Flush Syringe 10 Ml IV 10 ml PRN PRN Administration LINE FLUSH Trazodone HCl 100 mg 08/09/18 22:00 08/12/18 22:00 Desyrel PO 100 mg QHS CHONG Administration Nutrition/Malnutrition Assess - Dietary Evaluation Nutrition/Malnutrition Findings: Nutrition Notes Start: 08/09/18 14:31 Freq: Status: Active Protocol: Document 08/12/18 14:40 RM (Rec: 08/12/18 14:40 RM [id number]) Nutrition Notes Initial or Follow up Brief Note Subjective/Other Information Pt not in room at time of visit. Nutrition Intervention Follow-Up By: 08/13/18 Additional Comments follow for renal diet education needs
[2018-08-13] MEDS: XANAX PO SCH ×3 (10:52→22:00)
[2018-08-13] MEDS: HALFPRIN EC PO SCH (11:06)
[2018-08-13] MEDS: LOVENOX SUB-Q SCH (11:06)
[2018-08-13] MEDS: Renal Caps PO SCH (11:06)
[2018-08-13] MEDS: PROCARDIA XL PO SCH ×2 (11:06→21:40)
[2018-08-13] MEDS: COREG PO SCH ×2 (11:06→21:41)
[2018-08-13] MEDS: PROTONIX PO SCH (11:06)
--- NOTE | 2018-08-13 11:58 | Progress Note ---
Subjective Date of service: 08/13/18 Principal diagnosis: anasarca Interval history: Lying flat in bed, asymptomatic from cardiac perspective. Volume overload, improved Chronic systolic heart failure Pericardial effusion s/p pericardiocentesis 06/2018 limited echo this admission reports a small pericardial effusion, large left pleural effusion, EF improved to 40-50%. Bilateral pleural effusions ESRD on dialysis Hypertension Non-ischemic cardiomyopathy [facility] 07/2017: no significant coronary artery disease but a decreased left ventricular ejection fraction 15-20%. Chronic Ascites with intermittent paracentesis. Chronic anemia Chronic hypoxic respiratory failure on home oxygen Non-compliance with outpatient cardiac follow-ups Chronically elevated troponin in the setting of ESRD Recommendations: Dialysis for fluid management. Continue medical therapy for nonischemic cardiomyopathy and chronic systolic heart failure. No new recommendations. Objective Vital Signs Temp Pulse Resp Resp BP BP Pulse Ox 08/13/18 09:05 20 08/13/18 08:36 97.6 F 79 18 137/68 95 08/13/18 04:45 84 08/13/18 04:31 98.1 F 86 18 154/84 98 08/13/18 00:00 97.9 F 82 18 149/85 93 08/12/18 22:00 87 180/92 08/12/18 19:36 98.3 F 95 H 18 180/92 99 08/12/18 19:15 100 H 08/12/18 17:53 18 08/12/18 17:30 18 08/12/18 16:00 85 08/12/18 15:59 97.7 F 85 18 155/78 95 08/12/18 14:55 98.0 F 77 18 158/82 08/12/18 14:30 78 148/80 08/12/18 14:15 79 149/81 08/12/18 14:00 75 163/82 08/12/18 13:45 77 155/75 08/12/18 13:30 76 150/74 08/12/18 13:15 78 150/73 08/12/18 13:00 76 114/60 08/12/18 12:45 76 134/64 08/12/18 12:30 79 130/63 08/12/18 12:15 84 146/74 08/12/18 12:00 82 138/73 - Physical Examination General: Appears Well, No Apparent Distress HEENT: Positive: PERRL Neck: Positive: trachea midline Cardiac: Positive: Reg Rate and Rhythm, S1/S2 Lungs: Positive: Normal Exam Neuro: Positive: Grossly Intact Abdomen: Positive: Unremarkable Extremities: Absent: edema - Labs and Meds CBC 08/13/18 Range/Units 05:30 WBC 6.0 (4.5-11.0) K/mm3 RBC 2.87 L (3.65-5.03) M/mm3 Hgb 8.0 L (11.8-15.2) gm/dl Hct 24.3 L (35.5-45.6) % Plt Count 108 L (140-440) K/mm3 Lymph # 1.3 (1.2-5.4) K/mm3 [place] # 0.6 (0.0-0.8) K/mm3 Eos # 0.2 (0.0-0.4) K/mm3 Baso # 0.1 (0.0-0.1) K/mm3 Comprehensive Metabolic Panel 08/13/18 Range/Units 05:30 Sodium 136 L (137-145) mmol/L Potassium 4.0 D (3.6-5.0) mmol/L Chloride 96.9 L (98-107) mmol/L Carbon Dioxide 29 (22-30) mmol/L BUN 17 (9-20) mg/dL Creatinine 3.2 H D (0.8-1.5) mg/dL Glucose 93 (75-100) mg/dL Calcium 9.1 (8.4-10.2) mg/dL
--- NOTE | 2018-08-13 16:29 | Progress Note ---
Assessment and Plan - Patient Problems (1) Anemia of renal disease Current Visit: No Status: Chronic Plan to address problem: Anemia of renal disease Hb: Moderate anemia 8.4g/dl epogen [id number] [place] . (2) End stage renal disease Current Visit: No Status: Acute Plan to address problem: End-stage renal disease access left arm aVF Continue hemodialysis TTS. (3) Acute and chronic respiratory failure with hypoxia Current Visit: No Status: Acute Plan to address problem: Acute on chronic respiratory failure Continue supplemental oxygen (4) Essential hypertension Current Visit: No Status: Chronic Plan to address problem: HTN; controlled continue meds. Subjective Principal diagnosis: anasarca Interval history: 28-year-old gentleman with congestive heart failure, hypertension end-stage sumit al disease on hemodialysis on Tuesday remains on oxygen has some shortness of breath requesting thoracentesis Objective - Vital Signs Vital signs: Vital Signs - 12hr 08/13/18 08/13/18 08/13/18 04:31 04:45 08:36 Temperature 98.1 F 97.6 F Pulse Rate 86 84 79 Respiratory 18 18 Rate Blood Pressure 154/84 137/68 O2 Sat by Pulse 98 95 Oximetry 08/13/18 08/13/18 08/13/18 09:05 09:35 10:00 Temperature Pulse Rate Respiratory 20 18 Rate Blood Pressure O2 Sat by Pulse 99 Oximetry 08/13/18 08/13/18 08/13/18 12:00 12:33 14:48 Temperature Pulse Rate 82 89 Respiratory 18 Rate Blood Pressure 138/74 O2 Sat by Pulse 95 Oximetry - General Appearance General appearance: well-developed, well-nourished EENT: ATNC, PERRL, mucous membranes moist Neck: no JVD Respiratory: Present: Ronchi Cardiology: regular, S1S2 Gastrointestinal: normal, normoactive bowel sounds Integumentary: no rash Neurologic: alert and oriented x3, CN 3-12 intact Psychiatric: mood/affect appropriate - Lab 08/13/18 05:30 08/13/18 05:30 Most recent lab results Calcium 9.1 mg/dL (8.4-10.2) 08/13/18 05:30 - Imaging Chest x-ray: image reviewed Medications & Allergies - Medications Allergies/Adverse Reactions: Allergies heparin Allergy (Verified 07/02/18 15:17) lowers platelets Home Medications: Home Medications Medication Instructions Recorded Confirmed Last Taken Type Esomeprazole Magnesium [Nexium] 40 mg PO DAILY #30 capsule. 03/27/18 08/08/18 08/08/18 Rx Folic Acid/Vit B Comp W-C [Renal 1 cap PO QDAY #60 capsule 03/27/18 08/08/18 08/08/18 Rx Caps] hydrALAZINE [Apresoline TAB] 100 mg PO TID #90 tab 03/27/18 08/08/18 08/08/18 Rx traZODone [Desyrel] 100 mg PO QHS #30 tablet 03/27/18 08/08/18 08/08/18 Rx NIFEdipine [Adalat cc] 90 mg PO BID 04/11/18 08/08/18 08/08/18 History Diclofenac Sodium [Voltaren] 100 gm TP Q6H #1 gel..gram. 04/21/18 08/08/18 08/08/18 Rx ALBUTEROL NEB's [Proventil 0.083% 2.5 mg IH Q4HRT PRN nebu 05/19/18 08/08/18 08/08/18 Rx NEBS] Aspirin EC 81 mg PO QDAY tablet 05/19/18 08/08/18 08/08/18 Rx AtorvaSTATin [Lipitor] 40 mg PO QHS tablet 05/19/18 08/08/18 08/08/18 Rx Carvedilol [Coreg] 25 mg PO BID tablet 05/19/18 08/08/18 08/08/18 Rx Oxycodone HCl/Acetaminophen 1 each PO Q6HR PRN #12 tablet 06/26/18 08/08/18 08/08/18 Rx [Percocet 7.5/325 mg] ALPRAZolam [Xanax TAB] 0.5 mg PO Q12HR #10 tablet 07/07/18 08/08/18 08/08/18 Rx Gabapentin [Neurontin] 100 mg PO Q8HR #90 capsule 07/07/18 08/08/18 08/08/18 Rx Active Medications: Generic Name Dose Route Start Last Admin Trade Name Freq PRN Reason Stop Dose Admin Acetaminophen 650 mg 08/09/18 00:08 Tylenol PO Q4H PRN Pain MILD(1-3)/Fever >100.5/JENKINS Albuterol 2.5 mg 08/09/18 04:32 Proventil IH Q4HRT PRN Shortness Of Breath Alprazolam 0.5 mg 08/09/18 10:00 08/13/18 11:06 Xanax PO 0.5 mg Q12HR CHONG Administration Aspirin 81 mg 08/09/18 10:00 08/13/18 11:06 Halfprin Ec PO 81 mg QDAY CHONG Administration Atorvastatin Calcium 40 mg 08/09/18 22:00 08/12/18 21:59 Lipitor PO 40 mg QHS CHONG Administration Carvedilol 25 mg 08/09/18 10:00 08/13/18 11:06 Coreg PO 25 mg BID CHONG Administration Dextrose 50 ml 08/09/18 00:08 D50w (25gm) Syringe IV PRN PRN Hypoglycemia Enoxaparin Sodium 30 mg 08/09/18 10:00 08/13/18 11:06 Lovenox SUB-Q 30 mg QDAY CHONG Administration Gabapentin 100 mg 08/09/18 06:00 08/13/18 14:47 Neurontin PO 100 mg Q8HR CHONG Administration Hydralazine HCl 100 mg 08/09/18 08:00 08/13/18 14:48 Apresoline PO 100 mg TID CHONG Administration Hydralazine HCl 20 mg 08/09/18 18:23 08/11/18 00:47 Apresoline IV 20 mg Q4HR PRN Administration SBP greater than 170 Sodium Chloride 100 mls @ 999 mls/hr 08/09/18 10:23 Nacl 0.9% IV APRIL PRN Hypotension Insulin Human Lispro 0 unit 08/09/18 07:30 08/13/18 12:42 Humalog SUB-Q Not Given ACHS [facility] Protocol Morphine Sulfate 2 mg 08/09/18 05:03 08/13/18 14:48 Morphine IV 2 mg Q4H PRN Administration Pain , Severe (7-10) Multivit/Ca Carb/B Cmplx/FA/Prenat 1 cap 08/09/18 10:00 08/13/18 11:06 Renal Caps PO 1 cap QDAY CHONG Administration Nifedipine 90 mg 08/09/18 10:00 08/13/18 11:06 Procardia Xl PO 90 mg BID CHONG Administration Ondansetron HCl 4 mg 08/09/18 00:08 08/11/18 09:52 Zofran IV 4 mg Q8H PRN Administration Nausea And Vomiting Oxycodone HCl 2.5 mg 08/09/18 04:54 08/12/18 20:57 Roxicodone PO 2.5 mg Q6H PRN Administration Pain, Moderate (4-6) Oxycodone/Acetaminophen 1 tab 08/09/18 04:54 08/12/18 20:57 Percocet 5/325 PO 1 tab Q6H PRN Administration Pain, Moderate (4-6) Pantoprazole Sodium 40 mg 08/09/18 10:00 08/13/18 11:06 Protonix PO 40 mg DAILY CHONG Administration Sodium Chloride 10 ml 08/09/18 10:00 08/12/18 22:02 Sodium Chloride Flush Syringe 10 Ml IV 10 ml BID CHONG Administration Sodium Chloride 10 ml 08/09/18 00:08 08/13/18 04:40 Sodium Chloride Flush Syringe 10 Ml IV 10 ml PRN PRN Administration LINE FLUSH Trazodone HCl 100 mg 08/09/18 22:00 08/12/18 22:00 Desyrel PO 100 mg QHS CHONG Administration
[2018-08-13] MEDS: DESYREL PO SCH (21:41)
[2018-08-13] MEDS: SODIUM CHLORIDE FLUSH SYRINGE 10 ML IV SCH (21:43)
[2018-08-14] MEDS: MORPHINE IV PRN ×5 (02:19→23:50)
[2018-08-14] MEDS: NEURONTIN PO SCH ×3 (06:06→22:07)
[2018-08-14] MEDS: DICLOFENAC 1% TP SCH ×5 (06:10→23:49)
--- NOTE | 2018-08-14 09:49 | Progress Note ---
Assessment and Plan Assessment and plan: ESRD. Continue hemodialysis per nephrology. Hyperkalemia. Resolved. Follow-up BMP. Anasarca. Medical noncompliance. Patient has been counseled. Anemia of ESRD. Follow H&H and transfuse for hemoglobin less than 7. Continue Procrit with hemodialysis. Acute on chronic heart failure with reduced ejection fraction. Patient with a history of nonischemic cardiomyopathy. Continue hemodialysis for negative fluid balance. Bilateral pleural effusions. Hemodialysis per nephrology. Echocardiogram revealed a small pericardial effusion, LVH and EF of 40-50%. Recurrent ascites. Patient is status post paracentesis Pericardial effusion. Echocardiogram revealed small pericardial effusion. Elevated troponin. Patient with chronically elevated troponin in setting of ESRD. History Interval history: No new issues overnight. Hospitalist Physical - Constitutional Vitals: Temp Pulse Resp BP Pulse Ox 97.6 F 85 18 123/69 97 08/14/18 08:35 08/14/18 04:00 08/14/18 08:35 08/14/18 08:35 08/14/18 03:57 General appearance: Present: no acute distress - EENT Eyes: Present: PERRL, EOM intact ENT: hearing intact, clear oral mucosa, dentition normal - Neck Neck: Present: supple, normal ROM - Respiratory Respiratory effort: normal Respiratory: bilateral: CTA - Cardiovascular Rhythm: regular Heart Sounds: Present: S1 & S2. Absent: gallop, rub - Extremities Extremities: no ischemia, No edema, Full ROM - Abdominal General gastrointestinal: soft, non-tender, non-distended, normal bowel sounds - Integumentary Integumentary: Present: clear, warm, dry - Neurologic Neurologic: CNII-XII intact, moves all extremities Results - Labs CBC & Chem 7: 08/13/18 05:30 08/13/18 05:30 Labs: Laboratory Last Values WBC 6.0 K/mm3 (4.5-11.0) 08/13/18 05:30 RBC 2.87 M/mm3 (3.65-5.03) L 08/13/18 05:30 Hgb 8.0 gm/dl (11.8-15.2) L 08/13/18 05:30 Hct 24.3 % (35.5-45.6) L 08/13/18 05:30 MCV 85 fl (84-94) 08/13/18 05:30 MCH 28 pg (28-32) 08/13/18 05:30 MCHC 33 % (32-34) 08/13/18 05:30 RDW 19.8 % (13.2-15.2) H 08/13/18 05:30 Plt Count 108 K/mm3 (140-440) L 08/13/18 05:30 Lymph % (Auto) 21.0 % (13.4-35.0) 08/13/18 05:30 [place] % (Auto) 10.1 % (0.0-7.3) H 08/13/18 05:30 Eos % (Auto) 3.4 % (0.0-4.3) 08/13/18 05:30 Baso % (Auto) 1.3 % (0.0-1.8) 08/13/18 05:30 Lymph # 1.3 K/mm3 (1.2-5.4) 08/13/18 05:30 [place] # 0.6 K/mm3 (0.0-0.8) 08/13/18 05:30 Eos # 0.2 K/mm3 (0.0-0.4) 08/13/18 05:30 Baso # 0.1 K/mm3 (0.0-0.1) 08/13/18 05:30 Seg Neutrophils % 64.2 % (40.0-70.0) 08/13/18 05:30 Seg Neutrophils # 3.9 K/mm3 (1.8-7.7) 08/13/18 05:30 PT 16.4 Sec. (12.2-14.9) H 08/09/18 08:56 INR 1.24 (0.87-1.13) H 08/09/18 08:56 Sodium 136 mmol/L (137-145) L 08/13/18 05:30 Potassium 4.0 mmol/L (3.6-5.0) D 08/13/18 05:30 Chloride 96.9 mmol/L (98-107) L 08/13/18 05:30 Carbon Dioxide 29 mmol/L (22-30) 08/13/18 05:30 14 mmol/L 08/13/18 05:30 BUN 17 mg/dL (9-20) 08/13/18 05:30 3.2 mg/dL (0.8-1.5) H D 08/13/18 05:30 Estimated GFR 23 ml/min 08/13/18 05:30 5 % 08/13/18 05:30 Glucose 93 mg/dL (75-100) 08/13/18 05:30 POC Glucose 83 (70-105) 08/14/18 08:09 Calcium 9.1 mg/dL (8.4-10.2) 08/13/18 05:30 0.50 mg/dL (0.1-1.2) 08/08/18 20:47 AST 38 units/L (5-40) 08/08/18 20:47 ALT 28 units/L (7-56) 08/08/18 20:47 100 units/L (35-129) 08/08/18 20:47 113 units/L (55-170) 08/09/18 11:45 CK-MB (CK-2) 5.8 ng/mL (0.0-4.0) H 08/09/18 11:45 CK-MB (CK-2) Rel Index 5.1 (0-4) H 08/09/18 11:45 0.255 ng/mL (0.00-0.029) H* 08/09/18 11:45 NT-Pro-B Natriuret Pep > 16511 pg/mL (0-450) H 08/08/18 21:10 8.9 g/dL (6.3-8.2) H 08/08/18 20:47 3.7 g/dL (3.9-5) L 08/08/18 20:47 0.7 % 08/08/18 20:47 Triglycerides 56 mg/dL (2-149) 08/08/18 21:10 Cholesterol 96 mg/dL (50-199) 08/08/18 21:10 43 mg/dL (50-130) L 08/08/18 21:10 43 mg/dL (40-59) 08/08/18 21:10 2.23 % 08/08/18 21:10 Active Medications - Current Medications Current Medications: Generic Name Dose Route Start Last Admin Trade Name Freq PRN Reason Stop Dose Admin Acetaminophen 650 mg 08/09/18 00:08 Tylenol PO Q4H PRN Pain MILD(1-3)/Fever >100.5/JENKINS Albuterol 2.5 mg 08/09/18 04:32 Proventil IH Q4HRT PRN Shortness Of Breath Alprazolam 0.5 mg 08/09/18 10:00 08/13/18 22:00 Xanax PO Not Given Q12HR CHONG Aspirin 81 mg 08/09/18 10:00 08/13/18 11:06 Halfprin Ec PO 81 mg QDAY CHONG Administration Atorvastatin Calcium 40 mg 08/09/18 22:00 08/13/18 21:41 Lipitor PO 40 mg QHS CHONG Administration Carvedilol 25 mg 08/09/18 10:00 08/13/18 21:41 Coreg PO 25 mg BID CHONG Administration Dextrose 50 ml 08/09/18 00:08 D50w (25gm) Syringe IV PRN PRN Hypoglycemia Enoxaparin Sodium 30 mg 08/09/18 10:00 08/13/18 11:06 Lovenox SUB-Q 30 mg QDAY CHONG Administration Gabapentin 100 mg 08/09/18 06:00 08/14/18 06:06 Neurontin PO 100 mg Q8HR CHONG Administration Hydralazine HCl 100 mg 08/09/18 08:00 08/13/18 21:41 Apresoline PO 100 mg TID CHONG Administration Hydralazine HCl 20 mg 08/09/18 18:23 08/11/18 00:47 Apresoline IV 20 mg Q4HR PRN Administration SBP greater than 170 Sodium Chloride 100 mls @ 999 mls/hr 08/09/18 10:23 Nacl 0.9% IV APRIL PRN Hypotension Insulin Human Lispro 0 unit 08/09/18 07:30 08/13/18 21:43 Humalog SUB-Q Not Given ACHS [facility] Protocol Morphine Sulfate 2 mg 08/09/18 05:03 08/14/18 06:06 Morphine IV 2 mg Q4H PRN Administration Pain , Severe (7-10) Multivit/Ca Carb/B Cmplx/FA/Prenat 1 cap 08/09/18 10:00 08/13/18 11:06 Renal Caps PO 1 cap QDAY CHONG Administration Nifedipine 90 mg 08/09/18 10:00 08/13/18 21:40 Procardia Xl PO 90 mg BID CHONG Administration Ondansetron HCl 4 mg 08/09/18 00:08 08/11/18 09:52 Zofran IV 4 mg Q8H PRN Administration Nausea And Vomiting Oxycodone HCl 2.5 mg 08/09/18 04:54 08/12/18 20:57 Roxicodone PO 2.5 mg Q6H PRN Administration Pain, Moderate (4-6) Oxycodone/Acetaminophen 1 tab 08/09/18 04:54 08/12/18 20:57 Percocet 5/325 PO 1 tab Q6H PRN Administration Pain, Moderate (4-6) Pantoprazole Sodium 40 mg 08/09/18 10:00 08/13/18 11:06 Protonix PO 40 mg DAILY CHONG Administration Sodium Chloride 10 ml 08/09/18 10:00 08/13/18 21:43 Sodium Chloride Flush Syringe 10 Ml IV 10 ml BID CHONG Administration Sodium Chloride 10 ml 08/09/18 00:08 08/13/18 04:40 Sodium Chloride Flush Syringe 10 Ml IV 10 ml PRN PRN Administration LINE FLUSH Trazodone HCl 100 mg 08/09/18 22:00 08/13/18 21:41 Desyrel PO 100 mg QHS CHONG Administration Nutrition/Malnutrition Assess - Dietary Evaluation Nutrition/Malnutrition Findings: Nutrition Notes Start: 08/09/18 14:31 Freq: Status: Active Protocol: Document 08/13/18 11:55 RM (Rec: 08/13/18 11:56 RM [id number]) Nutrition Notes Initial or Follow up Brief Note Subjective/Other Information Pt stated that he is already familiar with renal diet. Nutrition Intervention Revisit per MD consult or patient Sign Off request:
[2018-08-14] MEDS: HumaLOG SUB-Q SCH ×4 (10:07→22:01)
[2018-08-14] MEDS: PROCARDIA XL PO SCH ×2 (10:08→22:14)
[2018-08-14] MEDS: SODIUM CHLORIDE FLUSH SYRINGE 10 ML IV SCH ×5 (10:08→23:50)
[2018-08-14] MEDS: XANAX PO SCH ×2 (10:09→22:07)
[2018-08-14] MEDS: COREG PO SCH ×2 (10:09→22:07)
[2018-08-14] MEDS: Renal Caps PO SCH (10:09)
[2018-08-14] MEDS: APRESOLINE PO SCH ×3 (10:09→22:13)
[2018-08-14] MEDS: LOVENOX SUB-Q SCH (10:10)
[2018-08-14] MEDS: PROTONIX PO SCH (10:10)
[2018-08-14] MEDS: HALFPRIN EC PO SCH (10:10)
--- NOTE | 2018-08-14 12:26 | Progress Note ---
Assessment and Plan Volume overload Chronic systolic heart failure Pericardial effusion s/p pericardiocentesis 06/2018 limited echo this admission reports a small pericardial effusion, large left pleural effusion, EF improved to 40-50%. Bilateral pleural effusions ESRD on dialysis Hypertension Non-ischemic cardiomyopathy [facility] 07/2017: no significant coronary artery disease but a decreased left ventricular ejection fraction 15-20%. Chronic Ascites with intermittent paracentesis. Chronic anemia Chronic hypoxic respiratory failure on home oxygen Non-compliance with outpatient cardiac follow-ups Chronically elevated troponin in the setting of ESRD Recommendations: Dialysis for fluid management. Continue medical therapy for nonischemic cardiomyopathy and chronic systolic heart failure. Otherwise, conservative cardiac management. Subjective Date of service: 08/14/18 Principal diagnosis: anasarca Interval history: Patient is resting in bed and appears comfortable. He has no complaints. Objective Vital Signs Temp Pulse Resp BP Pulse Ox 08/14/18 12:00 87 08/14/18 10:09 82 123/69 08/14/18 08:35 97.6 F 18 123/69 08/14/18 06:06 22 08/14/18 04:00 85 08/14/18 03:57 97.9 F 82 18 133/75 97 08/13/18 23:51 98.0 F 83 18 138/80 98 08/13/18 21:41 82 20 142/74 08/13/18 20:00 87 08/13/18 19:46 98.2 F 86 18 142/74 95 08/13/18 19:33 94 08/13/18 16:47 82 148/80 93 08/13/18 14:48 18 08/13/18 12:33 89 138/74 95 - Physical Examination General: No Apparent Distress HEENT: Positive: PERRL Neck: Positive: trachea midline Cardiac: Positive: Reg Rate and Rhythm Lungs: Positive: Decreased Breath Sounds Neuro: Positive: Grossly Intact Extremities: Absent: edema
--- NOTE | 2018-08-14 13:01 | Progress Note ---
Assessment and Plan Impression * End-stage renal disease on maintenance hemodialysis * Fluid overload * Hypertension * Anemia secondary to ESRD * Noncompliance Recommendations * Patient had 4 days of [id number] dialysis last week. * Does not wish to go for next dialysis treatment today. * Continue dialysis on TTS schedule as outpatient * Consider thoracentesis * Procrit with dialysis * Patient advised regarding compliance with his dialysis treatments Subjective Date of service: 08/14/18 Principal diagnosis: anasarca Interval history: Patient is comfortable today. Shortness of breath is better. He still however requiring oxygen supplementation Objective - Vital Signs Vital signs: Vital Signs - 12hr 08/14/18 08/14/18 08/14/18 03:57 04:00 06:06 Temperature 97.9 F Pulse Rate 82 85 Respiratory 18 22 Rate Blood Pressure 133/75 O2 Sat by Pulse 97 Oximetry 08/14/18 08/14/18 08/14/18 08:35 10:09 12:00 Temperature 97.6 F Pulse Rate 82 87 Respiratory 18 Rate Blood Pressure 123/69 123/69 O2 Sat by Pulse Oximetry 08/14/18 12:44 Temperature Pulse Rate Respiratory Rate Blood Pressure O2 Sat by Pulse 95 Oximetry - General Appearance General appearance: chronically ill, frail EENT: PERRL, mucous membranes moist Neck: no JVD, no thyromegaly, no carotid bruit, supple Respiratory: Present: Clear to Ascultation, Decreased Breath Sounds (at the bases) Cardiology: regular, normal heart rate Gastrointestinal: normal, normoactive bowel sounds Integumentary: no rash, other (AV fistula left upper arm. Good bruit and t hrill.) - Lab 08/13/18 05:30 08/13/18 05:30 Most recent lab results Calcium 9.1 mg/dL (8.4-10.2) 08/13/18 05:30 Medications & Allergies - Medications Allergies/Adverse Reactions: Allergies heparin Allergy (Verified 07/02/18 15:17) lowers platelets Home Medications: Home Medications Medication Instructions Recorded Confirmed Last Taken Type Esomeprazole Magnesium [Nexium] 40 mg PO DAILY #30 capsule. 03/27/18 08/08/18 08/08/18 Rx Folic Acid/Vit B Comp W-C [Renal 1 cap PO QDAY #60 capsule 03/27/18 08/08/18 08/08/18 Rx Caps] hydrALAZINE [Apresoline TAB] 100 mg PO TID #90 tab 03/27/18 08/08/18 08/08/18 Rx traZODone [Desyrel] 100 mg PO QHS #30 tablet 03/27/18 08/08/18 08/08/18 Rx NIFEdipine [Adalat cc] 90 mg PO BID 04/11/18 08/08/18 08/08/18 History Diclofenac Sodium [Voltaren] 100 gm TP Q6H #1 gel..gram. 04/21/18 08/08/18 08/08/18 Rx ALBUTEROL NEB's [Proventil 0.083% 2.5 mg IH Q4HRT PRN nebu 05/19/18 08/08/18 08/08/18 Rx NEBS] Aspirin EC 81 mg PO QDAY tablet 05/19/18 08/08/18 08/08/18 Rx AtorvaSTATin [Lipitor] 40 mg PO QHS tablet 05/19/18 08/08/18 08/08/18 Rx Carvedilol [Coreg] 25 mg PO BID tablet 05/19/18 08/08/18 08/08/18 Rx Oxycodone HCl/Acetaminophen 1 each PO Q6HR PRN #12 tablet 06/26/18 08/08/18 08/08/18 Rx [Percocet 7.5/325 mg] ALPRAZolam [Xanax TAB] 0.5 mg PO Q12HR #10 tablet 07/07/18 08/08/18 08/08/18 Rx Gabapentin [Neurontin] 100 mg PO Q8HR #90 capsule 07/07/18 08/08/18 08/08/18 Rx Active Medications: Generic Name Dose Route Start Last Admin Trade Name Freq PRN Reason Stop Dose Admin Acetaminophen 650 mg 08/09/18 00:08 Tylenol PO Q4H PRN Pain MILD(1-3)/Fever >100.5/JENKINS Albuterol 2.5 mg 08/09/18 04:32 Proventil IH Q4HRT PRN Shortness Of Breath Alprazolam 0.5 mg 08/09/18 10:00 08/14/18 10:09 Xanax PO 0.5 mg Q12HR CHONG Administration Aspirin 81 mg 08/09/18 10:00 08/14/18 10:10 Halfprin Ec PO 81 mg QDAY CHONG Administration Atorvastatin Calcium 40 mg 08/09/18 22:00 08/13/18 21:41 Lipitor PO 40 mg QHS CHONG Administration Carvedilol 25 mg 08/09/18 10:00 08/14/18 10:09 Coreg PO 25 mg BID CHONG Administration Dextrose 50 ml 08/09/18 00:08 D50w (25gm) Syringe IV PRN PRN Hypoglycemia Enoxaparin Sodium 30 mg 08/09/18 10:00 08/14/18 10:10 Lovenox SUB-Q 30 mg QDAY CHONG Administration Gabapentin 100 mg 08/09/18 06:00 08/14/18 06:06 Neurontin PO 100 mg Q8HR CHONG Administration Hydralazine HCl 100 mg 08/09/18 08:00 08/14/18 10:09 Apresoline PO 100 mg TID CHONG Administration Hydralazine HCl 20 mg 08/09/18 18:23 08/11/18 00:47 Apresoline IV 20 mg Q4HR PRN Administration SBP greater than 170 Sodium Chloride 100 mls @ 999 mls/hr 08/09/18 10:23 Nacl 0.9% IV APRIL PRN Hypotension Insulin Human Lispro 0 unit 08/09/18 07:30 08/14/18 10:07 Humalog SUB-Q Not Given ACHS [facility] Protocol Morphine Sulfate 2 mg 08/09/18 05:03 08/14/18 10:19 Morphine IV 2 mg Q4H PRN Administration Pain , Severe (7-10) Multivit/Ca Carb/B Cmplx/FA/Prenat 1 cap 08/09/18 10:00 08/14/18 10:09 Renal Caps PO 1 cap QDAY CHONG Administration Nifedipine 90 mg 08/09/18 10:00 08/14/18 10:08 Procardia Xl PO 90 mg BID CHONG Administration Ondansetron HCl 4 mg 08/09/18 00:08 08/11/18 09:52 Zofran IV 4 mg Q8H PRN Administration Nausea And Vomiting Oxycodone HCl 2.5 mg 08/09/18 04:54 08/12/18 20:57 Roxicodone PO 2.5 mg Q6H PRN Administration Pain, Moderate (4-6) Oxycodone/Acetaminophen 1 tab 08/09/18 04:54 08/12/18 20:57 Percocet 5/325 PO 1 tab Q6H PRN Administration Pain, Moderate (4-6) Pantoprazole Sodium 40 mg 08/09/18 10:00 08/14/18 10:10 Protonix PO 40 mg DAILY CHONG Administration Sodium Chloride 10 ml 08/09/18 10:00 08/14/18 10:08 Sodium Chloride Flush Syringe 10 Ml IV 10 ml BID CHONG Administration Sodium Chloride 10 ml 08/09/18 00:08 08/13/18 04:40 Sodium Chloride Flush Syringe 10 Ml IV 10 ml PRN PRN Administration LINE FLUSH Trazodone HCl 100 mg 08/09/18 22:00 08/13/18 21:41 Desyrel PO 100 mg QHS CHONG Administration
[2018-08-14] MEDS: DESYREL PO SCH (22:07)
[2018-08-14] MEDS: MIRALAX 3350 PO PRN (22:11)
[2018-08-15] MEDS: MORPHINE IV PRN ×5 (04:29→22:16)
[2018-08-15] MEDS: DICLOFENAC 1% TP SCH ×3 (05:47→17:03)
[2018-08-15] MEDS: NEURONTIN PO SCH ×3 (05:47→22:16)
[2018-08-15] MEDS: HumaLOG SUB-Q SCH ×4 (07:41→22:17)
[2018-08-15] MEDS: APRESOLINE PO SCH ×3 (08:41→22:15)
--- NOTE | 2018-08-15 09:20 | Progress Note ---
Assessment and Plan Impression * End-stage renal disease on maintenance hemodialysis * Fluid overload * Pleural effusion * Hypertension * Anemia secondary to ESRD * Noncompliance Recommendations * Patient had daily HD x 4 last week. * Continue dialysis on TTS schedule as outpatient * Consider thoracentesis - defer to primary team * Procrit with dialysis * Patient advised regarding compliance with his dialysis treatments Subjective Date of service: 08/15/18 Principal diagnosis: anasarca Interval history: Patient reports abdominal pain this AM. He is seen on dialysis. Objective - Vital Signs Vital signs: Vital Signs - 12hr 08/14/18 08/15/18 08/15/18 22:00 00:02 04:26 Temperature 97.6 F 98.3 F Pulse Rate 81 83 73 Respiratory 16 18 Rate Blood Pressure 130/74 119/62 O2 Sat by Pulse 93 95 Oximetry 08/15/18 08/15/18 07:20 09:15 Temperature 98.1 F Pulse Rate 55 L Respiratory 18 Rate Blood Pressure 145/83 O2 Sat by Pulse 88 95 Oximetry - General Appearance General appearance: well-developed, well-nourished EENT: ATNC Respiratory: Present: Clear to Ascultation Cardiology: regular, S1S2 Gastrointestinal: tenderness, no distended Integumentary: no rash Musculoskeletal: other Psychiatric: cooperative - Lab 08/13/18 05:30 08/13/18 05:30 Most recent lab results Calcium 9.1 mg/dL (8.4-10.2) 08/13/18 05:30 Medications & Allergies - Medications Allergies/Adverse Reactions: Allergies heparin Allergy (Verified 07/02/18 15:17) lowers platelets Home Medications: Home Medications Medication Instructions Recorded Confirmed Last Taken Type Esomeprazole Magnesium [Nexium] 40 mg PO DAILY #30 capsule. 03/27/18 08/08/18 08/08/18 Rx Folic Acid/Vit B Comp W-C [Renal 1 cap PO QDAY #60 capsule 03/27/18 08/08/18 08/08/18 Rx Caps] hydrALAZINE [Apresoline TAB] 100 mg PO TID #90 tab 03/27/18 08/08/18 08/08/18 Rx traZODone [Desyrel] 100 mg PO QHS #30 tablet 03/27/18 08/08/18 08/08/18 Rx NIFEdipine [Adalat cc] 90 mg PO BID 04/11/18 08/08/18 08/08/18 History Diclofenac Sodium [Voltaren] 100 gm TP Q6H #1 gel..gram. 04/21/18 08/08/18 08/08/18 Rx ALBUTEROL NEB's [Proventil 0.083% 2.5 mg IH Q4HRT PRN nebu 05/19/18 08/08/18 08/08/18 Rx NEBS] Aspirin EC 81 mg PO QDAY tablet 05/19/18 08/08/18 08/08/18 Rx AtorvaSTATin [Lipitor] 40 mg PO QHS tablet 05/19/18 08/08/18 08/08/18 Rx Carvedilol [Coreg] 25 mg PO BID tablet 05/19/18 08/08/18 08/08/18 Rx Oxycodone HCl/Acetaminophen 1 each PO Q6HR PRN #12 tablet 06/26/18 08/08/18 08/08/18 Rx [Percocet 7.5/325 mg] ALPRAZolam [Xanax TAB] 0.5 mg PO Q12HR #10 tablet 07/07/18 08/08/18 08/08/18 Rx Gabapentin [Neurontin] 100 mg PO Q8HR #90 capsule 07/07/18 08/08/18 08/08/18 Rx Active Medications: Generic Name Dose Route Start Last Admin Trade Name Freq PRN Reason Stop Dose Admin Acetaminophen 650 mg 08/09/18 00:08 Tylenol PO Q4H PRN Pain MILD(1-3)/Fever >100.5/JENKINS Albuterol 2.5 mg 08/09/18 04:32 Proventil IH Q4HRT PRN Shortness Of Breath Alprazolam 0.5 mg 08/09/18 10:00 08/14/18 22:07 Xanax PO 0.5 mg Q12HR CHONG Administration Aspirin 81 mg 08/09/18 10:00 08/14/18 10:10 Halfprin Ec PO 81 mg QDAY CHONG Administration Atorvastatin Calcium 40 mg 08/09/18 22:00 08/14/18 22:07 Lipitor PO 40 mg QHS CHONG Administration Carvedilol 25 mg 08/09/18 10:00 08/14/18 22:07 Coreg PO 25 mg BID CHONG Administration Dextrose 50 ml 08/09/18 00:08 D50w (25gm) Syringe IV PRN PRN Hypoglycemia Enoxaparin Sodium 30 mg 08/09/18 10:00 08/14/18 10:10 Lovenox SUB-Q 30 mg QDAY [facility] Administration Epoetin [place] 20,000 unit 08/15/18 15:01 Procrit IV 08/15/18 15:02 APRIL ONE Gabapentin 100 mg 08/09/18 06:00 08/15/18 05:47 Neurontin PO 100 mg Q8HR CHONG Administration Hydralazine HCl 100 mg 08/09/18 08:00 08/15/18 08:41 Apresoline PO Not Given TID [facility] Hydralazine HCl 20 mg 08/09/18 18:23 08/11/18 00:47 Apresoline IV 20 mg Q4HR PRN Administration SBP greater than 170 Sodium Chloride 100 mls @ 999 mls/hr 08/09/18 10:23 Nacl 0.9% IV APRIL PRN Hypotension Insulin Human Lispro 0 unit 08/09/18 07:30 08/15/18 07:41 Humalog SUB-Q Not Given ACHS [facility] Protocol Morphine Sulfate 2 mg 08/09/18 05:03 08/15/18 09:00 Morphine IV 2 mg Q4H PRN Administration Pain , Severe (7-10) Multivit/Ca Carb/B Cmplx/FA/Prenat 1 cap 08/09/18 10:00 08/14/18 10:09 Renal Caps PO 1 cap QDAY [facility] Administration Nifedipine 90 mg 08/09/18 10:00 08/14/18 22:14 Procardia Xl PO Not Given BID [facility] Ondansetron HCl 4 mg 08/09/18 00:08 08/11/18 09:52 Zofran IV 4 mg Q8H PRN Administration Nausea And Vomiting Oxycodone HCl 2.5 mg 08/09/18 04:54 08/12/18 20:57 Roxicodone PO 2.5 mg Q6H PRN Administration Pain, Moderate (4-6) Oxycodone/Acetaminophen 1 tab 08/09/18 04:54 08/12/18 20:57 Percocet 5/325 PO 1 tab Q6H PRN Administration Pain, Moderate (4-6) Pantoprazole Sodium 40 mg 08/09/18 10:00 08/14/18 10:10 Protonix PO 40 mg DAILY CHONG Administration Polyethylene Glycol 17 gm 08/14/18 20:12 08/14/18 22:11 Miralax 3350 PO 17 gm QDAY PRN Administration Constipation Sodium Chloride 10 ml 08/09/18 10:00 08/14/18 23:50 Sodium Chloride Flush Syringe 10 Ml IV 10 ml BID CHONG Administration Sodium Chloride 10 ml 08/09/18 00:08 08/13/18 04:40 Sodium Chloride Flush Syringe 10 Ml IV 10 ml PRN PRN Administration LINE FLUSH Trazodone HCl 100 mg 08/09/18 22:00 08/14/18 22:07 Desyrel PO 100 mg QHS CHONG Administration
[2018-08-15] MEDS: COREG PO SCH ×2 (09:57→22:16)
[2018-08-15] MEDS: PROTONIX PO SCH (09:57)
[2018-08-15] MEDS: HALFPRIN EC PO SCH (09:57)
[2018-08-15] MEDS: Renal Caps PO SCH (09:57)
[2018-08-15] MEDS: XANAX PO SCH ×2 (09:58→22:28)
[2018-08-15] MEDS: LOVENOX SUB-Q SCH (09:58)
[2018-08-15] MEDS: PROCARDIA XL PO SCH ×2 (09:58→22:15)
[2018-08-15] MEDS: SODIUM CHLORIDE FLUSH SYRINGE 10 ML IV SCH ×2 (09:58→22:17)
[2018-08-15 10:23] LABS: Hematocrit 21.2 % (35.5-45.6); Hemoglobin 7.1 gm/dl (11.8-15.2); Mean Corpuscular HGB Conc 34 % (32-34); Mean Corpuscular Volume 83 fl (84-94); Red Blood Count 2.56 M/mm3 (3.65-5.03); Red Cell Distribution Width 19.1 % (13.2-15.2)
[2018-08-15 10:35] LABS: Calcium 8.5 mg/dL (8.4-10.2)
[2018-08-15 10:38] LABS: Platelet Count 90 K/mm3 (140-440)
--- NOTE | 2018-08-15 10:48 | Progress Note ---
Assessment and Plan Volume overload Chronic systolic heart failure Pericardial effusion s/p pericardiocentesis 06/2018 limited echo this admission reports a small pericardial effusion, large left pleural effusion, EF improved to 40-50%. Bilateral pleural effusions ESRD on dialysis Hypertension Non-ischemic cardiomyopathy [facility] 07/2017: no significant coronary artery disease but a decreased left ventricular ejection fraction 15-20%. Chronic Ascites with intermittent paracentesis. Chronic anemia Chronic hypoxic respiratory failure on home oxygen Non-compliance with outpatient cardiac follow-ups Chronically elevated troponin in the setting of ESRD Recommendations: Dialysis for fluid management. Continue medical therapy for nonischemic cardiomyopathy and chronic systolic heart failure. Otherwise, conservative cardiac management. Subjective Date of service: 08/15/18 Principal diagnosis: anasarca Interval history: Undergoing dialysis. No cardiac events reported overnight. Objective Vital Signs Temp Pulse Pulse Resp BP Pulse Ox Pulse Ox 08/15/18 10:00 83 55 L 18 151/82 88 08/15/18 09:45 75 154/81 08/15/18 09:30 76 153/82 08/15/18 09:20 76 150/82 08/15/18 09:15 95 08/15/18 09:12 98.2 F 79 20 145/82 91 08/15/18 07:20 98.1 F 55 L 18 145/83 88 08/15/18 04:26 98.3 F 73 18 119/62 95 08/15/18 00:02 97.6 F 83 16 130/74 93 08/14/18 22:00 81 08/14/18 20:26 22 08/14/18 20:19 98.2 F 89 16 125/70 95 08/14/18 19:52 96 08/14/18 16:50 98.1 F 64 18 123/70 90 08/14/18 13:43 97.7 F 18 127/66 08/14/18 12:44 95 08/14/18 12:00 87 - Physical Examination General: No Apparent Distress HEENT: Positive: PERRL Neck: Positive: trachea midline Cardiac: Positive: Reg Rate and Rhythm Lungs: Positive: Decreased Breath Sounds Neuro: Positive: Grossly Intact Extremities: Absent: edema - Labs and Meds CBC 08/15/18 Range/Units 09:34 WBC 6.8 (4.5-11.0) K/mm3 RBC 2.56 L (3.65-5.03) M/mm3 Hgb 7.1 L (11.8-15.2) gm/dl Hct 21.2 L (35.5-45.6) % Plt Count 90 L (140-440) K/mm3 Comprehensive Metabolic Panel 08/15/18 Range/Units 09:34 Sodium 132 L (137-145) mmol/L Potassium 4.6 (3.6-5.0) mmol/L Chloride 92.1 L (98-107) mmol/L Carbon Dioxide 27 (22-30) mmol/L BUN 42 H (9-20) mg/dL Creatinine 5.7 H D (0.8-1.5) mg/dL Glucose 96 (75-100) mg/dL Calcium 8.5 (8.4-10.2) mg/dL
[2018-08-15] MEDS ORDERED: PROCRIT IV ONE (13:00)
--- NOTE | 2018-08-15 17:31 | Progress Note ---
Assessment and Plan Assessment and plan: Acute on chronic resp failure Currently on Oxygen at 5l/min Was on home Oxygen at 4 l/min ESRD. Continue hemodialysis per nephrology. Hyperkalemia. Resolved. Follow-up BMP. Anasarca. Medical noncompliance. Patient has been counseled. Anemia of ESRD. Follow H&H and transfuse for hemoglobin less than 7. Continue Procrit with hemodialysis. Acute on chronic heart failure with reduced ejection fraction. Patient with a history of nonischemic cardiomyopathy. Continue hemodialysis for negative fluid balance. Bilateral pleural effusions. Hemodialysis per nephrology. Repeat CXR May need thoracentesis Recurrent ascites. Patient is status post paracentesis Pericardial effusion. Echocardiogram revealed small pericardial effusion. Elevated troponin. Patient with chronically elevated troponin in setting of ESRD. History Interval history: Less shortness of breath but still present Hospitalist Physical - Physical exam Narrative exam: Gen: Not in acute distress, lying in bed, HEENT: Normocephalic, atraumatic Neck: supple, no JVD Heart: S1 and S2 reg, no murmurs, rubs or gallop Lungs: Decreased breath sounds both bases, no crackles, no wheeze Abd: soft, non tender, non distended, normal BS Ext: No edema, no clubbing, no cyanosis, Neuro: Awake,alert, oriented x 3, moves all ext, non focal - Constitutional Vitals: Temp Pulse Resp BP Pulse Ox 97.8 F 83 20 167/86 88 08/15/18 13:20 08/15/18 16:31 08/15/18 13:20 08/15/18 13:20 08/15/18 10:00 General appearance: Present: no acute distress Results - Labs CBC & Chem 7: 08/15/18 09:34 08/15/18 09:34 Labs: Laboratory Last Values WBC 6.8 K/mm3 (4.5-11.0) 08/15/18 09:34 RBC 2.56 M/mm3 (3.65-5.03) L 08/15/18 09:34 Hgb 7.1 gm/dl (11.8-15.2) L 08/15/18 09:34 Hct 21.2 % (35.5-45.6) L 08/15/18 09:34 MCV 83 fl (84-94) L 08/15/18 09:34 MCH 28 pg (28-32) 08/15/18 09:34 MCHC 34 % (32-34) 08/15/18 09:34 RDW 19.1 % (13.2-15.2) H 08/15/18 09:34 Plt Count 90 K/mm3 (140-440) L 08/15/18 09:34 Lymph % (Auto) 21.0 % (13.4-35.0) 08/13/18 05:30 [place] % (Auto) 10.1 % (0.0-7.3) H 08/13/18 05:30 Eos % (Auto) 3.4 % (0.0-4.3) 08/13/18 05:30 Baso % (Auto) 1.3 % (0.0-1.8) 08/13/18 05:30 Lymph # 1.3 K/mm3 (1.2-5.4) 08/13/18 05:30 [place] # 0.6 K/mm3 (0.0-0.8) 08/13/18 05:30 Eos # 0.2 K/mm3 (0.0-0.4) 08/13/18 05:30 Baso # 0.1 K/mm3 (0.0-0.1) 08/13/18 05:30 Seg Neutrophils % 64.2 % (40.0-70.0) 08/13/18 05:30 Seg Neutrophils # 3.9 K/mm3 (1.8-7.7) 08/13/18 05:30 PT 16.4 Sec. (12.2-14.9) H 08/09/18 08:56 INR 1.24 (0.87-1.13) H 08/09/18 08:56 Sodium 132 mmol/L (137-145) L 08/15/18 09:34 Potassium 4.6 mmol/L (3.6-5.0) 08/15/18 09:34 Chloride 92.1 mmol/L (98-107) L 08/15/18 09:34 Carbon Dioxide 27 mmol/L (22-30) 08/15/18 09:34 18 mmol/L 08/15/18 09:34 BUN 42 mg/dL (9-20) H 08/15/18 09:34 5.7 mg/dL (0.8-1.5) H D 08/15/18 09:34 Estimated GFR 12 ml/min 08/15/18 09:34 7 % 08/15/18 09:34 Glucose 96 mg/dL (75-100) 08/15/18 09:34 POC Glucose 91 (70-105) 08/15/18 16:11 Calcium 8.5 mg/dL (8.4-10.2) 08/15/18 09:34 0.50 mg/dL (0.1-1.2) 08/08/18 20:47 AST 38 units/L (5-40) 08/08/18 20:47 ALT 28 units/L (7-56) 08/08/18 20:47 100 units/L (35-129) 08/08/18 20:47 113 units/L (55-170) 08/09/18 11:45 CK-MB (CK-2) 5.8 ng/mL (0.0-4.0) H 08/09/18 11:45 CK-MB (CK-2) Rel Index 5.1 (0-4) H 08/09/18 11:45 0.255 ng/mL (0.00-0.029) H* 08/09/18 11:45 NT-Pro-B Natriuret Pep > 69440 pg/mL (0-450) H 08/08/18 21:10 8.9 g/dL (6.3-8.2) H 08/08/18 20:47 3.7 g/dL (3.9-5) L 08/08/18 20:47 0.7 % 08/08/18 20:47 Triglycerides 56 mg/dL (2-149) 08/08/18 21:10 Cholesterol 96 mg/dL (50-199) 08/08/18 21:10 43 mg/dL (50-130) L 08/08/18 21:10 43 mg/dL (40-59) 08/08/18 21:10 2.23 % 08/08/18 21:10 Active Medications - Current Medications Current Medications: Generic Name Dose Route Start Last Admin Trade Name Freq PRN Reason Stop Dose Admin Acetaminophen 650 mg 08/09/18 00:08 Tylenol PO Q4H PRN Pain MILD(1-3)/Fever >100.5/JENKINS Albuterol 2.5 mg 08/09/18 04:32 Proventil IH Q4HRT PRN Shortness Of Breath Alprazolam 0.5 mg 08/09/18 10:00 08/15/18 09:58 Xanax PO Not Given Q12HR [facility] Aspirin 81 mg 08/09/18 10:00 08/15/18 09:57 Halfprin Ec PO 81 mg QDAY [facility] Administration Atorvastatin Calcium 40 mg 08/09/18 22:00 08/14/18 22:07 Lipitor PO 40 mg QHS CHONG Administration Carvedilol 25 mg 08/09/18 10:00 08/15/18 09:57 Coreg PO Not Given BID [facility] Dextrose 50 ml 08/09/18 00:08 D50w (25gm) Syringe IV PRN PRN Hypoglycemia Enoxaparin Sodium 30 mg 08/09/18 10:00 08/15/18 09:58 Lovenox SUB-Q Not Given QDAY [facility] Gabapentin 100 mg 08/09/18 06:00 08/15/18 13:50 Neurontin PO 100 mg Q8HR CHONG Administration Hydralazine HCl 100 mg 08/09/18 08:00 08/15/18 13:50 Apresoline PO 100 mg TID [facility] Administration Hydralazine HCl 20 mg 08/09/18 18:23 08/11/18 00:47 Apresoline IV 20 mg Q4HR PRN Administration SBP greater than 170 Sodium Chloride 100 mls @ 999 mls/hr 08/09/18 10:23 Nacl 0.9% IV APRIL PRN Hypotension Insulin Human Lispro 0 unit 08/09/18 07:30 08/15/18 16:57 Humalog SUB-Q Not Given [facility] Protocol Morphine Sulfate 2 mg 08/09/18 05:03 08/15/18 17:20 Morphine IV 2 mg Q4H PRN Administration Pain , Severe (7-10) Multivit/Ca Carb/B Cmplx/FA/Prenat 1 cap 08/09/18 10:00 08/15/18 09:57 Renal Caps PO 1 cap QDAY CHONG Administration Nifedipine 90 mg 08/09/18 10:00 08/15/18 09:58 Procardia Xl PO Not Given BID [facility] Ondansetron HCl 4 mg 08/09/18 00:08 08/11/18 09:52 Zofran IV 4 mg Q8H PRN Administration Nausea And Vomiting Oxycodone HCl 2.5 mg 08/09/18 04:54 08/12/18 20:57 Roxicodone PO 2.5 mg Q6H PRN Administration Pain, Moderate (4-6) Oxycodone/Acetaminophen 1 tab 08/09/18 04:54 08/12/18 20:57 Percocet 5/325 PO 1 tab Q6H PRN Administration Pain, Moderate (4-6) Pantoprazole Sodium 40 mg 08/09/18 10:00 08/15/18 09:57 Protonix PO 40 mg DAILY [facility] Administration Polyethylene Glycol 17 gm 08/14/18 20:12 08/14/18 22:11 Miralax 3350 PO 17 gm QDAY PRN Administration Constipation Sodium Chloride 10 ml 08/09/18 10:00 08/15/18 09:58 Sodium Chloride Flush Syringe 10 Ml IV 10 ml BID CHONG Administration Sodium Chloride 10 ml 08/09/18 00:08 08/13/18 04:40 Sodium Chloride Flush Syringe 10 Ml IV 10 ml PRN PRN Administration LINE FLUSH Trazodone HCl 100 mg 08/09/18 22:00 08/14/18 22:07 Desyrel PO 100 mg QHS CHONG Administration Nutrition/Malnutrition Assess - Dietary Evaluation Nutrition/Malnutrition Findings: Nutrition Notes Start: 08/09/18 14:31 Freq: Status: Active Protocol: Document 08/13/18 11:55 RM (Rec: 08/13/18 11:56 RM [id number]) Nutrition Notes Initial or Follow up Brief Note Subjective/Other Information Pt stated that he is already familiar with renal diet. Nutrition Intervention Revisit per MD consult or patient Sign Off request:
--- NOTE | 2018-08-15 21:04 | XRay Report ---
PROCEDURE: XR CHEST ROUTINE 2V TECHNIQUE: PA and lateral chest radiographs were obtained. HISTORY: acute on chronic respiratory failure COMPARISONS: 08/08/2018. FINDINGS: Cardiac silhouette is enlarged without change. There are large bilateral pleural effusions with bibas ilar subsegmental atelectasis. There is no significant interval change. The bones and soft tissues ar e unremarkable. IMPRESSION: Stable chest x-ray This document is electronically signed by Danay Mancilla MD., August 15 2018 09:02:07 PM ET
[2018-08-15] MEDS: DESYREL PO SCH (22:15)
[2018-08-15] MEDS: MIRALAX 3350 PO PRN (22:25)
[2018-08-16] MEDS: APRESOLINE IV PRN (01:24)
[2018-08-16] MEDS: DICLOFENAC 1% TP SCH ×2 (02:22→05:09)
[2018-08-16] MEDS: NEURONTIN PO SCH ×3 (05:04→21:40)
[2018-08-16] MEDS: MORPHINE IV PRN ×3 (05:04→21:41)
[2018-08-16] MEDS: HumaLOG SUB-Q SCH ×3 (08:48→21:42)
[2018-08-16] MEDS: PROTONIX PO SCH (09:28)
[2018-08-16] MEDS: HALFPRIN EC PO SCH (09:28)
[2018-08-16] MEDS: PROCARDIA XL PO SCH ×2 (09:28→21:40)
[2018-08-16] MEDS: XANAX PO SCH ×2 (09:28→22:17)
[2018-08-16] MEDS: Renal Caps PO SCH (09:28)
[2018-08-16] MEDS: APRESOLINE PO SCH ×3 (09:29→21:40)
[2018-08-16] MEDS: COREG PO SCH ×2 (09:29→21:40)
[2018-08-16] MEDS: ROXICODONE PO PRN (09:30)
[2018-08-16] MEDS: LOVENOX SUB-Q SCH (09:31)
[2018-08-16 09:32] LABS: Hematocrit 24.1 % (35.5-45.6); Mean Corpuscular HGB Conc 33 % (32-34); Mean Corpuscular Volume 84 fl (84-94); Red Blood Count 2.88 M/mm3 (3.65-5.03); Red Cell Distribution Width 18.6 % (13.2-15.2)
[2018-08-16 09:33] LABS: Calcium 8.9 mg/dL (8.4-10.2)
[2018-08-16 09:39] LABS: Platelet Count 89 K/mm3 (140-440)
--- NOTE | 2018-08-16 09:50 | Progress Note ---
Assessment and Plan Volume overload Chronic systolic heart failure Pericardial effusion s/p pericardiocentesis 06/2018 limited echo this admission reports a small pericardial effusion, large left pleural effusion, EF improved to 40-50%. Bilateral pleural effusions ESRD on dialysis Hypertension Non-ischemic cardiomyopathy [facility] 07/2017: no significant coronary artery disease but a decreased left ventricular ejection fraction 15-20%. Chronic Ascites with intermittent paracentesis. Chronic anemia Chronic hypoxic respiratory failure on home oxygen Non-compliance with outpatient cardiac follow-ups Chronically elevated troponin in the setting of ESRD Recommendations: Dialysis for fluid management. Continue medical therapy for nonischemic cardiomyopathy and chronic systolic heart failure. Otherwise, conservative cardiac management. Subjective Date of service: 08/16/18 Principal diagnosis: anasarca Interval history: Patient reports shortness of breath on minimal exertion. No cardiac events reported overnight. Objective Vital Signs Temp Pulse Pulse Resp Resp BP Pulse Ox 08/16/18 09:29 80 122/70 08/16/18 09:14 97 08/16/18 08:26 98.2 F 80 18 122/71 92 08/16/18 05:04 20 08/16/18 05:00 20 08/16/18 04:10 97.6 F 87 18 134/73 90 08/16/18 01:24 76 178/87 08/16/18 01:15 98.6 F 76 20 178/87 96 08/15/18 23:37 97.9 F 85 18 171/96 97 08/15/18 22:16 90 20 162/90 08/15/18 22:00 83 22 08/15/18 19:50 97 08/15/18 19:07 98.6 F 92 H 16 162/90 93 08/15/18 16:31 83 08/15/18 16:08 98.4 F 80 18 168/87 87 08/15/18 13:20 97.8 F 83 20 167/86 08/15/18 12:45 78 171/88 08/15/18 12:30 79 182/86 08/15/18 12:15 78 176/87 08/15/18 12:00 78 198/98 08/15/18 11:45 80 171/97 08/15/18 11:30 88 177/98 08/15/18 11:15 87 182/94 08/15/18 11:00 76 147/82 08/15/18 10:45 77 156/82 08/15/18 10:30 76 152/80 08/15/18 10:15 75 162/79 08/15/18 10:00 83 55 L 18 151/82 88 - Physical Examination General: No Apparent Distress HEENT: Positive: PERRL Neck: Positive: trachea midline Cardiac: Positive: Reg Rate and Rhythm Lungs: Positive: Decreased Breath Sounds Neuro: Positive: Grossly Intact Extremities: Absent: edema - Labs and Meds CBC 08/15/18 08/16/18 Range/Units 09:34 08:43 WBC 6.8 6.6 (4.5-11.0) K/mm3 RBC 2.56 L 2.88 L (3.65-5.03) M/mm3 Hgb 7.1 L 8.0 L (11.8-15.2) gm/dl Hct 21.2 L 24.1 L (35.5-45.6) % Plt Count 90 L 89 L (140-440) K/mm3 Comprehensive Metabolic Panel 08/15/18 08/16/18 Range/Units 09:34 08:48 Sodium 132 L 134 L (137-145) mmol/L Potassium 4.6 4.7 (3.6-5.0) mmol/L Chloride 92.1 L 93.4 L (98-107) mmol/L Carbon Dioxide 27 26 (22-30) mmol/L BUN 42 H 34 H (9-20) mg/dL Creatinine 5.7 H D 4.8 H (0.8-1.5) mg/dL Glucose 96 86 (75-100) mg/dL Calcium 8.5 8.9 (8.4-10.2) mg/dL
[2018-08-16] MEDS ORDERED: MORPHINE IV PRN (10:00)
--- NOTE | 2018-08-16 10:51 | Progress Note ---
Assessment and Plan Assessment and plan: Acute on chronic resp failure Currently on Oxygen at 5l/min Was on home Oxygen at 4 l/min ESRD. Continue hemodialysis per nephrology. Hyperkalemia. Resolved. Follow-up BMP. Anasarca. Medical noncompliance. Patient has been counseled. Anemia of ESRD. Follow H&H and transfuse for hemoglobin less than 7. Continue Procrit with hemodialysis. Acute on chronic heart failure with reduced ejection fraction. Patient with a history of nonischemic cardiomyopathy. Continue hemodialysis for negative fluid balance. Bilateral pleural effusions. Hemodialysis per nephrology. Repeat CXR yesterday show bilateral effusions May need thoracentesis consult Pulmonology Recurrent ascites. Patient is status post paracentesis Pericardial effusion. Echocardiogram revealed small pericardial effusion. Elevated troponin. Patient with chronically elevated troponin in setting of ESRD. History Interval history: Less shortness of breath but still present No fever asking for more pain meds Hospitalist Physical - Physical exam Narrative exam: Gen: Not in acute distress, lying in bed, HEENT: Normocephalic, atraumatic Neck: supple, no JVD Heart: S1 and S2 reg, no murmurs, rubs or gallop Lungs: Decreased breath sounds both bases, no crackles, no wheeze Abd: soft, non tender, non distended, normal BS Ext: No edema, no clubbing, no cyanosis, Neuro: Awake,alert, oriented x 3, moves all ext, non focal - Constitutional Vitals: Temp Pulse Resp BP Pulse Ox 98.2 F 80 18 122/70 97 08/16/18 08:26 08/16/18 09:29 08/16/18 08:26 08/16/18 09:29 08/16/18 09:14 General appearance: Present: no acute distress Results - Labs CBC & Chem 7: 08/16/18 08:43 08/16/18 08:48 Labs: Laboratory Last Values WBC 6.6 K/mm3 (4.5-11.0) 08/16/18 08:43 RBC 2.88 M/mm3 (3.65-5.03) L 08/16/18 08:43 Hgb 8.0 gm/dl (11.8-15.2) L 08/16/18 08:43 Hct 24.1 % (35.5-45.6) L 08/16/18 08:43 MCV 84 fl (84-94) 08/16/18 08:43 MCH 28 pg (28-32) 08/16/18 08:43 MCHC 33 % (32-34) 08/16/18 08:43 RDW 18.6 % (13.2-15.2) H 08/16/18 08:43 Plt Count 89 K/mm3 (140-440) L 08/16/18 08:43 Lymph % (Auto) 21.0 % (13.4-35.0) 08/13/18 05:30 [place] % (Auto) 10.1 % (0.0-7.3) H 08/13/18 05:30 Eos % (Auto) 3.4 % (0.0-4.3) 08/13/18 05:30 Baso % (Auto) 1.3 % (0.0-1.8) 08/13/18 05:30 Lymph # 1.3 K/mm3 (1.2-5.4) 08/13/18 05:30 [place] # 0.6 K/mm3 (0.0-0.8) 08/13/18 05:30 Eos # 0.2 K/mm3 (0.0-0.4) 08/13/18 05:30 Baso # 0.1 K/mm3 (0.0-0.1) 08/13/18 05:30 Seg Neutrophils % 64.2 % (40.0-70.0) 08/13/18 05:30 Seg Neutrophils # 3.9 K/mm3 (1.8-7.7) 08/13/18 05:30 PT 16.4 Sec. (12.2-14.9) H 08/09/18 08:56 INR 1.24 (0.87-1.13) H 08/09/18 08:56 Sodium 134 mmol/L (137-145) L 08/16/18 08:48 Potassium 4.7 mmol/L (3.6-5.0) 08/16/18 08:48 Chloride 93.4 mmol/L (98-107) L 08/16/18 08:48 Carbon Dioxide 26 mmol/L (22-30) 08/16/18 08:48 19 mmol/L 08/16/18 08:48 BUN 34 mg/dL (9-20) H 08/16/18 08:48 4.8 mg/dL (0.8-1.5) H 08/16/18 08:48 Estimated GFR 14 ml/min 08/16/18 08:48 7 % 08/16/18 08:48 Glucose 86 mg/dL (75-100) 08/16/18 08:48 POC Glucose 89 (70-105) 08/16/18 08:34 Calcium 8.9 mg/dL (8.4-10.2) 08/16/18 08:48 0.50 mg/dL (0.1-1.2) 08/08/18 20:47 AST 38 units/L (5-40) 08/08/18 20:47 ALT 28 units/L (7-56) 08/08/18 20:47 100 units/L (35-129) 08/08/18 20:47 113 units/L (55-170) 08/09/18 11:45 CK-MB (CK-2) 5.8 ng/mL (0.0-4.0) H 08/09/18 11:45 CK-MB (CK-2) Rel Index 5.1 (0-4) H 08/09/18 11:45 0.255 ng/mL (0.00-0.029) H* 08/09/18 11:45 NT-Pro-B Natriuret Pep > 00818 pg/mL (0-450) H 08/08/18 21:10 8.9 g/dL (6.3-8.2) H 08/08/18 20:47 3.7 g/dL (3.9-5) L 08/08/18 20:47 0.7 % 08/08/18 20:47 Triglycerides 56 mg/dL (2-149) 08/08/18 21:10 Cholesterol 96 mg/dL (50-199) 08/08/18 21:10 43 mg/dL (50-130) L 08/08/18 21:10 43 mg/dL (40-59) 08/08/18 21:10 2.23 % 08/08/18 21:10 Active Medications - Current Medications Current Medications: Generic Name Dose Route Start Last Admin Trade Name Tyroneq PRN Reason Stop Dose Admin Acetaminophen 650 mg 08/09/18 00:08 Tylenol PO Q4H PRN Pain MILD(1-3)/Fever >100.5/JENKINS Albuterol 2.5 mg 08/09/18 04:32 Proventil IH Q4HRT PRN Shortness Of Breath Alprazolam 0.5 mg 08/09/18 10:00 08/16/18 09:28 Xanax PO 0.5 mg Q12HR CHONG Administration Aspirin 81 mg 08/09/18 10:00 08/16/18 09:28 Halfprin Ec PO 81 mg QDAY CHONG Administration Atorvastatin Calcium 40 mg 08/09/18 22:00 08/15/18 22:15 Lipitor PO 40 mg QHS CHONG Administration Carvedilol 25 mg 08/09/18 10:00 08/16/18 09:29 Coreg PO 25 mg BID CHONG Administration Dextrose 50 ml 08/09/18 00:08 D50w (25gm) Syringe IV PRN PRN Hypoglycemia Enoxaparin Sodium 30 mg 08/09/18 10:00 08/16/18 09:31 Lovenox SUB-Q 30 mg QDAY CHONG Administration Gabapentin 100 mg 08/09/18 06:00 08/16/18 05:04 Neurontin PO 100 mg Q8HR CHONG Administration Hydralazine HCl 100 mg 08/09/18 08:00 08/16/18 09:29 Apresoline PO 100 mg TID CHONG Administration Hydralazine HCl 20 mg 08/09/18 18:23 08/16/18 01:24 Apresoline IV 20 mg Q4HR PRN Administration SBP greater than 170 Sodium Chloride 100 mls @ 999 mls/hr 08/09/18 10:23 Nacl 0.9% IV APRIL PRN Hypotension Insulin Human Lispro 0 unit 08/09/18 07:30 08/16/18 08:48 Humalog SUB-Q Not Given ACHS [facility] Protocol Morphine Sulfate 3 mg 08/16/18 10:29 Morphine IV Q4H PRN Pain , Severe (7-10) Multivit/Ca Carb/B Cmplx/FA/Prenat 1 cap 08/09/18 10:00 08/16/18 09:28 Renal Caps PO 1 cap QDAY CHONG Administration Nifedipine 90 mg 08/09/18 10:00 08/16/18 09:28 Procardia Xl PO 90 mg BID CHONG Administration Ondansetron HCl 4 mg 05/29/19 00:08 08/11/18 09:52 Zofran IV 4 mg Q8H PRN Administration Nausea And Vomiting Oxycodone HCl 2.5 mg 08/09/18 04:54 08/16/18 09:30 Roxicodone PO 2.5 mg Q6H PRN Administration Pain, Moderate (4-6) Oxycodone/Acetaminophen 1 tab 08/09/18 04:54 08/12/18 20:57 Percocet 5/325 PO 1 tab Q6H PRN Administration Pain, Moderate (4-6) Pantoprazole Sodium 40 mg 08/09/18 10:00 08/16/18 09:28 Protonix PO 40 mg DAILY CHONG Administration Polyethylene Glycol 17 gm 08/14/18 20:12 08/15/18 22:25 Miralax 3350 PO 17 gm QDAY PRN Administration Constipation Sodium Chloride 10 ml 08/09/18 10:00 08/15/18 22:17 Sodium Chloride Flush Syringe 10 Ml IV 10 ml BID CHONG Administration Sodium Chloride 10 ml 08/09/18 00:08 08/13/18 04:40 Sodium Chloride Flush Syringe 10 Ml IV 10 ml PRN PRN Administration LINE FLUSH Trazodone HCl 100 mg 08/09/18 22:00 08/15/18 22:15 Desyrel PO 100 mg QHS CHONG Administration Nutrition/Malnutrition Assess - Dietary Evaluation Nutrition/Malnutrition Findings: Nutrition Notes Start: 08/09/18 14:31 Freq: Status: Active Protocol: Document 08/13/18 11:55 RM (Rec: 08/13/18 11:56 RM [id number]) Nutrition Notes Initial or Follow up Brief Note Subjective/Other Information Pt stated that he is already familiar with renal diet. Nutrition Intervention Revisit per MD consult or patient Sign Off request:
--- NOTE | 2018-08-16 11:54 | Event Note ---
Date: 08/16/18 Asked by IMS to see this patient secondary to bilateral pleural effusions. I saw this patient back in May. He is in and out of the hospital very often with shortness of breath. had thora done the last time we were consulted (may) bilaterally and did fine. I attempted to discuss pleurx with him and he stated that he wanted to speak with Dr. Palacios as he was told this was a "dangerous" procedure. AT this point that is the only thing I would recommend for him. Of course he can have thoracentesis if he is symptomatic and the fluid cannot be removed with diuresis and or HD. Told IMS this. If patient wishes to discuss pleurx, please feel free to reconsult.
--- NOTE | 2018-08-16 13:27 | Progress Note ---
Assessment and Plan Impression * End-stage renal disease on maintenance hemodialysis * Fluid overload * Hypertension * Anemia secondary to ESRD * Noncompliance Recommendations * Patient had uneventful hemodialysis yesterday. * Continue dialysis on TTS schedule as outpatient * Patient has bilateral pleural effusion. Not able to remove with dialysis * Procrit with dialysis * Patient advised regarding compliance with his dialysis treatments * Pulmonary notes appreciated Subjective Date of service: 08/16/18 Principal diagnosis: anasarca Interval history: Patient is comfortable today. Shortness of breath is better. He still however requiring oxygen supplementation Objective - Vital Signs Vital signs: Vital Signs - 12hr 08/16/18 08/16/18 08/16/18 04:10 05:00 05:04 Temperature 97.6 F Pulse Rate 87 Respiratory 18 20 Rate Respiratory 20 Rate [ generalized] Blood Pressure 134/73 O2 Sat by Pulse 90 Oximetry 08/16/18 08/16/18 08/16/18 08:26 09:14 09:29 Temperature 98.2 F Pulse Rate 80 80 Respiratory 18 Rate Respiratory Rate [ generalized] Blood Pressure 122/71 122/70 O2 Sat by Pulse 92 97 Oximetry - General Appearance General appearance: chronically ill, frail EENT: PERRL, mucous membranes moist Neck: no JVD, no thyromegaly, no carotid bruit, supple Respiratory: Present: Decreased Breath Sounds (at the bases) Cardiology: regular, normal heart rate, S1S2, no murmurs Gastrointestinal: normal, normoactive bowel sounds Integumentary: other (AV fistula left upper arm. Good bruit and thrill.) - Lab 08/16/18 08:43 08/16/18 08:48 Most recent lab results Calcium 8.9 mg/dL (8.4-10.2) 08/16/18 08:48 Medications & Allergies - Medications Allergies/Adverse Reactions: Allergies heparin Allergy (Verified 07/02/18 15:17) lowers platelets Home Medications: Home Medications Medication Instructions Recorded Confirmed Last Taken Type Esomeprazole Magnesium [Nexium] 40 mg PO DAILY #30 capsule. 03/27/18 08/08/18 08/08/18 Rx Folic Acid/Vit B Comp W-C [Renal 1 cap PO QDAY #60 capsule 03/27/18 08/08/18 08/08/18 Rx Caps] hydrALAZINE [Apresoline TAB] 100 mg PO TID #90 tab 03/27/18 08/08/18 08/08/18 Rx traZODone [Desyrel] 100 mg PO QHS #30 tablet 03/27/18 08/08/18 08/08/18 Rx NIFEdipine [Adalat cc] 90 mg PO BID 04/11/18 08/08/18 08/08/18 History Diclofenac Sodium [Voltaren] 100 gm TP Q6H #1 gel..gram. 04/21/18 08/08/18 08/08/18 Rx ALBUTEROL NEB's [Proventil 0.083% 2.5 mg IH Q4HRT PRN nebu 05/19/18 08/08/18 08/08/18 Rx NEBS] Aspirin EC 81 mg PO QDAY tablet 05/19/18 08/08/18 08/08/18 Rx AtorvaSTATin [Lipitor] 40 mg PO QHS tablet 05/19/18 08/08/18 08/08/18 Rx Carvedilol [Coreg] 25 mg PO BID tablet 05/19/18 08/08/18 08/08/18 Rx Oxycodone HCl/Acetaminophen 1 each PO Q6HR PRN #12 tablet 06/26/18 08/08/18 08/08/18 Rx [Percocet 7.5/325 mg] ALPRAZolam [Xanax TAB] 0.5 mg PO Q12HR #10 tablet 07/07/18 08/08/18 08/08/18 Rx Gabapentin [Neurontin] 100 mg PO Q8HR #90 capsule 07/07/18 08/08/18 08/08/18 Rx Active Medications: Generic Name Dose Route Start Last Admin Trade Name Freq PRN Reason Stop Dose Admin Acetaminophen 650 mg 08/09/18 00:08 Tylenol PO Q4H PRN Pain MILD(1-3)/Fever >100.5/JENKINS Albuterol 2.5 mg 08/09/18 04:32 Proventil IH Q4HRT PRN Shortness Of Breath Alprazolam 0.5 mg 08/09/18 10:00 08/16/18 09:28 Xanax PO 0.5 mg Q12HR CHONG Administration Aspirin 81 mg 08/09/18 10:00 08/16/18 09:28 Halfprin Ec PO 81 mg QDAY CHONG Administration Atorvastatin Calcium 40 mg 08/09/18 22:00 08/15/18 22:15 Lipitor PO 40 mg QHS CHONG Administration Carvedilol 25 mg 08/09/18 10:00 08/16/18 09:29 Coreg PO 25 mg BID CHONG Administration Dextrose 50 ml 08/09/18 00:08 D50w (25gm) Syringe IV PRN PRN Hypoglycemia Enoxaparin Sodium 30 mg 08/09/18 10:00 08/16/18 09:31 Lovenox SUB-Q 30 mg QDAY CHONG Administration Gabapentin 100 mg 08/09/18 06:00 08/16/18 05:04 Neurontin PO 100 mg Q8HR CHONG Administration Hydralazine HCl 100 mg 08/09/18 08:00 08/16/18 09:29 Apresoline PO 100 mg TID CHONG Administration Hydralazine HCl 20 mg 08/09/18 18:23 08/16/18 01:24 Apresoline IV 20 mg Q4HR PRN Administration SBP greater than 170 Sodium Chloride 100 mls @ 999 mls/hr 08/09/18 10:23 Nacl 0.9% IV APRIL PRN Hypotension Insulin Human Lispro 0 unit 08/09/18 07:30 08/16/18 08:48 Humalog SUB-Q Not Given ACHS [facility] Protocol Morphine Sulfate 3 mg 08/16/18 10:29 Morphine IV Q4H PRN Pain , Severe (7-10) Multivit/Ca Carb/B Cmplx/FA/Prenat 1 cap 08/09/18 10:00 08/16/18 09:28 Renal Caps PO 1 cap QDAY CHONG Administration Nifedipine 90 mg 08/09/18 10:00 08/16/18 09:28 Procardia Xl PO 90 mg BID CHONG Administration Ondansetron HCl 4 mg 08/09/18 00:08 08/11/18 09:52 Zofran IV 4 mg Q8H PRN Administration Nausea And Vomiting Oxycodone HCl 2.5 mg 08/09/18 04:54 08/16/18 09:30 Roxicodone PO 2.5 mg Q6H PRN Administration Pain, Moderate (4-6) Oxycodone/Acetaminophen 1 tab 08/09/18 04:54 08/12/18 20:57 Percocet 5/325 PO 1 tab Q6H PRN Administration Pain, Moderate (4-6) Pantoprazole Sodium 40 mg 08/09/18 10:00 08/16/18 09:28 Protonix PO 40 mg DAILY CHONG Administration Polyethylene Glycol 17 gm 08/14/18 20:12 08/15/18 22:25 Miralax 3350 PO 17 gm QDAY PRN Administration Constipation Sodium Chloride 10 ml 08/09/18 10:00 08/15/18 22:17 Sodium Chloride Flush Syringe 10 Ml IV 10 ml BID CHONG Administration Sodium Chloride 10 ml 08/09/18 00:08 08/13/18 04:40 Sodium Chloride Flush Syringe 10 Ml IV 10 ml PRN PRN Administration LINE FLUSH Trazodone HCl 100 mg 08/09/18 22:00 08/15/18 22:15 Desyrel PO 100 mg QHS CHONG Administration
[2018-08-16] MEDS: SODIUM CHLORIDE FLUSH SYRINGE 10 ML IV SCH ×2 (14:02→21:43)
[2018-08-16] MEDS: DESYREL PO SCH (21:40)
[2018-08-17] MEDS: DICLOFENAC 1% TP SCH ×4 (00:18→21:56)
[2018-08-17] MEDS: NEURONTIN PO SCH ×3 (05:11→21:46)
[2018-08-17] MEDS: MORPHINE IV PRN ×4 (05:13→21:44)
[2018-08-17] MEDS: HumaLOG SUB-Q SCH ×3 (08:30→21:59)
[2018-08-17] MEDS: ROXICODONE PO PRN (09:11)
--- NOTE | 2018-08-17 09:36 | Progress Note ---
Assessment and Plan Impression * End-stage renal disease on maintenance hemodialysis * Fluid overload * Pleural effusion * Hypertension * Anemia secondary to ESRD * Noncompliance Recommendations * Continue dialysis on TTS schedule as outpatient * UF as tolerated * Thoracentesis per primary team * Pulmonology recs noted * Procrit with dialysis * Patient advised regarding compliance with his dialysis treatments Subjective Date of service: 08/17/18 Principal diagnosis: anasarca Interval history: No acute events overnight. Objective - Vital Signs Vital signs: Vital Signs - 12hr 08/16/18 08/16/18 08/16/18 21:40 22:00 23:56 Temperature 98.8 F Pulse Rate 80 74 75 Respiratory 20 Rate Blood Pressure 127/64 125/70 O2 Sat by Pulse 95 Oximetry 08/17/18 08/17/18 08/17/18 04:34 05:13 08:34 Temperature 97.4 F L 98.4 F Pulse Rate 80 86 Respiratory 18 20 18 Rate Blood Pressure 122/70 136/72 O2 Sat by Pulse 92 91 Oximetry - General Appearance General appearance: well-developed, chronically ill EENT: ATNC Respiratory: Present: Decreased Breath Sounds Cardiology: regular, S1S2 Neurologic: alert and oriented x3 Musculoskeletal: other (trace edema) Psychiatric: cooperative - Lab 08/16/18 08:43 08/16/18 08:48 Most recent lab results Calcium 8.9 mg/dL (8.4-10.2) 08/16/18 08:48 Medications & Allergies - Medications Allergies/Adverse Reactions: Allergies heparin Allergy (Verified 07/02/18 15:17) lowers platelets Home Medications: Home Medications Medication Instructions Recorded Confirmed Last Taken Type Esomeprazole Magnesium [Nexium] 40 mg PO DAILY #30 capsule. 03/27/18 08/08/18 08/08/18 Rx Folic Acid/Vit B Comp W-C [Renal 1 cap PO QDAY #60 capsule 03/27/18 08/08/18 08/08/18 Rx Caps] hydrALAZINE [Apresoline TAB] 100 mg PO TID #90 tab 03/27/18 08/08/18 08/08/18 Rx traZODone [Desyrel] 100 mg PO QHS #30 tablet 03/27/18 08/08/18 08/08/18 Rx NIFEdipine [Adalat cc] 90 mg PO BID 01/08/08/18 08/08/18 History Diclofenac Sodium [Voltaren] 100 gm TP Q6H #1 gel..gram. 04/21/18 08/08/18 08/08/18 Rx ALBUTEROL NEB's [Proventil 0.083% 2.5 mg IH Q4HRT PRN nebu 05/19/18 08/08/18 08/08/18 Rx NEBS] Aspirin EC 81 mg PO QDAY tablet 05/19/18 08/08/18 08/08/18 Rx AtorvaSTATin [Lipitor] 40 mg PO QHS tablet 05/19/18 08/08/18 08/08/18 Rx Carvedilol [Coreg] 25 mg PO BID tablet 05/19/18 08/08/18 08/08/18 Rx Oxycodone HCl/Acetaminophen 1 each PO Q6HR PRN #12 tablet 06/26/18 08/08/18 08/08/18 Rx [Percocet 7.5/325 mg] ALPRAZolam [Xanax TAB] 0.5 mg PO Q12HR #10 tablet 07/07/18 08/08/18 08/08/18 Rx Gabapentin [Neurontin] 100 mg PO Q8HR #90 capsule 07/07/18 08/08/18 08/08/18 Rx Active Medications: Generic Name Dose Route Start Last Admin Trade Name Freq PRN Reason Stop Dose Admin Acetaminophen 650 mg 08/09/18 00:08 Tylenol PO Q4H PRN Pain MILD(1-3)/Fever >100.5/JENKINS Albuterol 2.5 mg 08/09/18 04:32 Proventil IH Q4HRT PRN Shortness Of Breath Alprazolam 0.5 mg 08/09/18 10:00 08/16/18 22:17 Xanax PO Not Given Q12HR CHONG Aspirin 81 mg 08/09/18 10:00 08/16/18 09:28 Halfprin Ec PO 81 mg QDAY CHONG Administration Atorvastatin Calcium 40 mg 08/09/18 22:00 08/16/18 21:40 Lipitor PO 40 mg QHS CHONG Administration Carvedilol 25 mg 08/09/18 10:00 08/16/18 21:40 Coreg PO 25 mg BID CHONG Administration Dextrose 50 ml 08/09/18 00:08 D50w (25gm) Syringe IV PRN PRN Hypoglycemia Enoxaparin Sodium 30 mg 08/09/18 10:00 08/16/18 09:31 Lovenox SUB-Q 30 mg QDAY CHONG Administration Gabapentin 100 mg 08/09/18 06:00 08/17/18 05:11 Neurontin PO 100 mg Q8HR CHONG Administration Hydralazine HCl 100 mg 08/09/18 08:00 08/16/18 21:40 Apresoline PO 100 mg TID CHONG Administration Hydralazine HCl 20 mg 08/09/18 18:23 08/16/18 01:24 Apresoline IV 20 mg Q4HR PRN Administration SBP greater than 170 Sodium Chloride 100 mls @ 999 mls/hr 08/09/18 10:23 Nacl 0.9% IV APRIL PRN Hypotension Insulin Human Lispro 0 unit 08/09/18 07:30 08/17/18 08:30 Humalog SUB-Q Not Given ACHS [facility] Protocol Morphine Sulfate 3 mg 08/16/18 10:29 08/17/18 05:13 Morphine IV 3 mg Q4H PRN Administration Pain , Severe (7-10) Multivit/Ca Carb/B Cmplx/FA/Prenat 1 cap 08/09/18 10:00 08/16/18 09:28 Renal Caps PO 1 cap QDAY CHONG Administration Nifedipine 90 mg 08/09/18 10:00 08/16/18 21:40 Procardia Xl PO 90 mg BID CHONG Administration Ondansetron HCl 4 mg 08/09/18 00:08 08/11/18 09:52 Zofran IV 4 mg Q8H PRN Administration Nausea And Vomiting Oxycodone HCl 2.5 mg 08/09/18 04:54 08/17/18 09:11 Roxicodone PO 2.5 mg Q6H PRN Administration Pain, Moderate (4-6) Oxycodone/Acetaminophen 1 tab 08/09/18 04:54 08/12/18 20:57 Percocet 5/325 PO 1 tab Q6H PRN Administration Pain, Moderate (4-6) Pantoprazole Sodium 40 mg 08/09/18 10:00 08/16/18 09:28 Protonix PO 40 mg DAILY CHONG Administration Polyethylene Glycol 17 gm 08/14/18 20:12 08/15/18 22:25 Miralax 3350 PO 17 gm QDAY PRN Administration Constipation Sodium Chloride 10 ml 08/09/18 10:00 08/16/18 21:43 Sodium Chloride Flush Syringe 10 Ml IV 10 ml BID CHONG Administration Sodium Chloride 10 ml 08/09/18 00:08 08/13/18 04:40 Sodium Chloride Flush Syringe 10 Ml IV 10 ml PRN PRN Administration LINE FLUSH Trazodone HCl 100 mg 08/09/18 22:00 08/16/18 21:40 Desyrel PO 100 mg QHS CHONG Administration
[2018-08-17] MEDS ORDERED: NACL 0.9 (PRIMING MACHINE ONLY DIALYSIS) MC ONE (10:50)
--- NOTE | 2018-08-17 11:10 | Progress Note ---
Assessment and Plan Volume overload Chronic systolic heart failure Pericardial effusion s/p pericardiocentesis 06/2018 limited echo this admission reports a small pericardial effusion, large left pleural effusion, EF improved to 40-50%. Bilateral pleural effusions ESRD on dialysis Hypertension Non-ischemic cardiomyopathy [facility] 07/2017: no significant coronary artery disease but a decreased left ventricular ejection fraction 15-20%. Chronic Ascites with intermittent paracentesis. Chronic anemia Chronic hypoxic respiratory failure on home oxygen Non-compliance with outpatient cardiac follow-ups Chronically elevated troponin in the setting of ESRD Recommendations: Dialysis for fluid management. Continue medical therapy for nonischemic cardiomyopathy and chronic systolic heart failure. Otherwise, conservative cardiac management. Subjective Date of service: 08/17/18 Principal diagnosis: anasarca Interval history: Patient reports shortness of breath on minimal exertion. For possible thoracentesis today. No cardiac events reported overnight. Objective Vital Signs Temp Pulse Resp BP Pulse Ox 08/17/18 08:34 98.4 F 86 18 136/72 91 08/17/18 05:13 20 08/17/18 04:34 97.4 F L 80 18 122/70 92 08/16/18 23:56 98.8 F 75 20 125/70 95 08/16/18 22:00 74 08/16/18 21:40 80 127/64 08/16/18 20:11 98.3 F 75 20 127/64 92 08/16/18 19:59 96 08/16/18 16:56 80 122/63 95 08/16/18 11:37 69 120/65 92 - Physical Examination General: No Apparent Distress HEENT: Positive: PERRL Neck: Positive: trachea midline Cardiac: Positive: Reg Rate and Rhythm Lungs: Positive: Decreased Breath Sounds Neuro: Positive: Grossly Intact Extremities: Absent: edema
--- NOTE | 2018-08-17 15:39 | Procedure Note ---
Date of procedure: 08/17/18 Pre-op diagnosis: left pleural effusion Post-op diagnosis: same Procedure: US thoracentesis Findings: moderate left pleural effusion Anesthesia: local Surgeon: AR ALVAREZ Estimated blood loss: none Pathology: none Specimen disposition: discarded Condition: stable Disposition: floor
[2018-08-17] MEDS: Renal Caps PO SCH (16:31)
[2018-08-17] MEDS: PROCARDIA XL PO SCH ×2 (16:32→22:00)
[2018-08-17] MEDS: COREG PO SCH ×2 (16:32→21:46)
[2018-08-17] MEDS: APRESOLINE PO SCH ×3 (16:32→21:46)
[2018-08-17] MEDS: PROTONIX PO SCH (16:33)
[2018-08-17] MEDS: SODIUM CHLORIDE FLUSH SYRINGE 10 ML IV SCH ×2 (16:34→21:46)
[2018-08-17] MEDS: LOVENOX SUB-Q SCH (16:36)
[2018-08-17] MEDS: HALFPRIN EC PO SCH (16:36)
[2018-08-17] MEDS: XANAX PO SCH ×2 (16:36→22:00)
--- NOTE | 2018-08-17 17:22 | Progress Note ---
Assessment and Plan Assessment and plan: Acute on chronic resp failure Now on 3 l/min ESRD. Continue hemodialysis per nephrology. Hyperkalemia. Resolved. Follow-up BMP. Anasarca. Medical noncompliance. Patient has been counseled. Anemia of ESRD. Follow H&H and transfuse for hemoglobin less than 7. Continue Procrit with hemodialysis. Acute on chronic heart failure with reduced ejection fraction. Patient with a history of nonischemic cardiomyopathy. Continue hemodialysis for negative fluid balance. Bilateral pleural effusions. Hemodialysis per nephrology. Repeat CXR 08/15 show bilateral effusions s/p left thoracentesis today Will order right thoracentesis for tomorrow Recurrent ascites. Patient is status post paracentesis Pericardial effusion. Echocardiogram revealed small pericardial effusion. Elevated troponin. Patient with chronically elevated troponin in setting of ESRD. History Interval history: Less shortness of breath, had left thoracentesis today Hospitalist Physical - Physical exam Narrative exam: Gen: Not in acute distress, lying in bed, HEENT: Normocephalic, atraumatic Neck: supple, no JVD Heart: S1 and S2 reg, no murmurs, rubs or gallop Lungs: Decreased breath sounds both bases, no crackles, no wheeze Abd: soft, non tender, non distended, normal BS Ext: No edema, no clubbing, no cyanosis, Neuro: Awake,alert, oriented x 3, moves all ext, non focal - Constitutional Vitals: Temp Pulse Resp BP Pulse Ox 98.3 F 91 H 18 156/85 96 08/17/18 14:30 08/17/18 16:32 08/17/18 14:30 08/17/18 16:32 08/17/18 16:22 General appearance: Present: no acute distress Results - Labs CBC & Chem 7: 08/16/18 08:43 08/16/18 08:48 Labs: Laboratory Last Values WBC 6.6 K/mm3 (4.5-11.0) 08/16/18 08:43 RBC 2.88 M/mm3 (3.65-5.03) L 08/16/18 08:43 Hgb 8.0 gm/dl (11.8-15.2) L 08/16/18 08:43 Hct 24.1 % (35.5-45.6) L 08/16/18 08:43 MCV 84 fl (84-94) 08/16/18 08:43 MCH 28 pg (28-32) 08/16/18 08:43 MCHC 33 % (32-34) 08/16/18 08:43 RDW 18.6 % (13.2-15.2) H 08/16/18 08:43 Plt Count 89 K/mm3 (140-440) L 08/16/18 08:43 Lymph % (Auto) 21.0 % (13.4-35.0) 08/13/18 05:30 [facility] % (Auto) 10.1 % (0.0-7.3) H 08/13/18 05:30 Eos % (Auto) 3.4 % (0.0-4.3) 08/13/18 05:30 Baso % (Auto) 1.3 % (0.0-1.8) 08/13/18 05:30 Lymph # 1.3 K/mm3 (1.2-5.4) 08/13/18 05:30 [facility] # 0.6 K/mm3 (0.0-0.8) 08/13/18 05:30 Eos # 0.2 K/mm3 (0.0-0.4) 08/13/18 05:30 Baso # 0.1 K/mm3 (0.0-0.1) 08/13/18 05:30 Seg Neutrophils % 64.2 % (40.0-70.0) 08/13/18 05:30 Seg Neutrophils # 3.9 K/mm3 (1.8-7.7) 08/13/18 05:30 PT 16.4 Sec. (12.2-14.9) H 08/09/18 08:56 INR 1.24 (0.87-1.13) H 08/09/18 08:56 Sodium 134 mmol/L (137-145) L 08/16/18 08:48 Potassium 4.7 mmol/L (3.6-5.0) 08/16/18 08:48 Chloride 93.4 mmol/L (98-107) L 08/16/18 08:48 Carbon Dioxide 26 mmol/L (22-30) 08/16/18 08:48 19 mmol/L 08/16/18 08:48 BUN 34 mg/dL (9-20) H 08/16/18 08:48 4.8 mg/dL (0.8-1.5) H 08/16/18 08:48 Estimated GFR 14 ml/min 08/16/18 08:48 7 % 08/16/18 08:48 Glucose 86 mg/dL (75-100) 08/16/18 08:48 POC Glucose 83 (70-105) 08/17/18 07:37 Calcium 8.9 mg/dL (8.4-10.2) 08/16/18 08:48 0.50 mg/dL (0.1-1.2) 08/08/18 20:47 AST 38 units/L (5-40) 08/08/18 20:47 ALT 28 units/L (7-56) 08/08/18 20:47 100 units/L (35-129) 08/08/18 20:47 113 units/L (55-170) 08/09/18 11:45 CK-MB (CK-2) 5.8 ng/mL (0.0-4.0) H 08/09/18 11:45 CK-MB (CK-2) Rel Index 5.1 (0-4) H 08/09/18 11:45 0.255 ng/mL (0.00-0.029) H* 08/09/18 11:45 NT-Pro-B Natriuret Pep > 04490 pg/mL (0-450) H 08/08/18 21:10 8.9 g/dL (6.3-8.2) H 08/08/18 20:47 3.7 g/dL (3.9-5) L 08/08/18 20:47 0.7 % 08/08/18 20:47 Triglycerides 56 mg/dL (2-149) 08/08/18 21:10 Cholesterol 96 mg/dL (50-199) 08/08/18 21:10 43 mg/dL (50-130) L 08/08/18 21:10 43 mg/dL (40-59) 08/08/18 21:10 2.23 % 08/08/18 21:10 Active Medications - Current Medications Current Medications: Generic Name Dose Route Start Last Admin Trade Name Freq PRN Reason Stop Dose Admin Acetaminophen 650 mg 08/09/18 00:08 Tylenol PO Q4H PRN Pain MILD(1-3)/Fever >100.5/JENKINS Albuterol 2.5 mg 08/09/18 04:32 Proventil IH Q4HRT PRN Shortness Of Breath Alprazolam 0.5 mg 08/09/18 10:00 08/17/18 16:36 Xanax PO Not Given Q12HR CHONG Aspirin 81 mg 08/09/18 10:00 08/17/18 16:36 Halfprin Ec PO Not Given QDAY CHONG Atorvastatin Calcium 40 mg 08/09/18 22:00 08/16/18 21:40 Lipitor PO 40 mg QHS CHONG Administration Carvedilol 25 mg 08/09/18 10:00 08/17/18 16:32 Coreg PO 25 mg BID CHONG Administration Dextrose 50 ml 08/09/18 00:08 D50w (25gm) Syringe IV PRN PRN Hypoglycemia Enoxaparin Sodium 30 mg 08/09/18 10:00 08/17/18 16:36 Lovenox SUB-Q Not Given QDAY [facility] Gabapentin 100 mg 08/09/18 06:00 08/17/18 16:32 Neurontin PO 100 mg Q8HR CHONG Administration Hydralazine HCl 100 mg 08/09/18 08:00 08/17/18 16:32 Apresoline PO 100 mg TID CHONG Administration Hydralazine HCl 20 mg 08/09/18 18:23 08/16/18 01:24 Apresoline IV 20 mg Q4HR PRN Administration SBP greater than 170 Sodium Chloride 100 mls @ 999 mls/hr 08/09/18 10:23 Nacl 0.9% IV APRIL PRN Hypotension Insulin Human Lispro 0 unit 08/09/18 07:30 08/17/18 16:35 Humalog SUB-Q Not Given ACHS [facility] Protocol Morphine Sulfate 3 mg 08/16/18 10:29 08/17/18 16:34 Morphine IV 3 mg Q4H PRN Administration Pain , Severe (7-10) Multivit/Ca Carb/B Cmplx/FA/Prenat 1 cap 08/09/18 10:00 08/17/18 16:31 Renal Caps PO 1 cap QDAY CHONG Administration Nifedipine 90 mg 08/09/18 10:00 08/17/18 16:32 Procardia Xl PO 90 mg BID CHONG Administration Ondansetron HCl 4 mg 08/09/18 00:08 08/11/18 09:52 Zofran IV 4 mg Q8H PRN Administration Nausea And Vomiting Oxycodone HCl 2.5 mg 08/09/18 04:54 08/17/18 09:11 Roxicodone PO 2.5 mg Q6H PRN Administration Pain, Moderate (4-6) Oxycodone/Acetaminophen 1 tab 08/09/18 04:54 08/12/18 20:57 Percocet 5/325 PO 1 tab Q6H PRN Administration Pain, Moderate (4-6) Pantoprazole Sodium 40 mg 08/09/18 10:00 08/17/18 16:33 Protonix PO 40 mg DAILY CHONG Administration Polyethylene Glycol 17 gm 08/14/18 20:12 08/15/18 22:25 Miralax 3350 PO 17 gm QDAY PRN Administration Constipation Sodium Chloride 10 ml 08/09/18 10:00 08/17/18 16:34 Sodium Chloride Flush Syringe 10 Ml IV 10 ml BID CHONG Administration Sodium Chloride 10 ml 08/09/18 00:08 08/13/18 04:40 Sodium Chloride Flush Syringe 10 Ml IV 10 ml PRN PRN Administration LINE FLUSH Trazodone HCl 100 mg 08/09/18 22:00 08/16/18 21:40 Desyrel PO 100 mg QHS CHONG Administration Nutrition/Malnutrition Assess - Dietary Evaluation Nutrition/Malnutrition Findings: Nutrition Notes Start: 08/09/18 14:31 Freq: Status: Active Protocol: Document 08/13/18 11:55 RM (Rec: 08/13/18 11:56 RM [email or web address]) Nutrition Notes Initial or Follow up Brief Note Subjective/Other Information Pt stated that he is already familiar with renal diet. Nutrition Intervention Revisit per MD consult or patient Sign Off request:
--- NOTE | 2018-08-17 18:48 | XRay Report ---
PROCEDURE: XR CHEST 1V AP TECHNIQUE: Chest radiograph single view. HISTORY: sob, recent thoracentesis on left COMPARISONS: CXR 08/15/2018 . FINDINGS: Heart: Enlarged but stable. Mediastinum/Vessels: Prominent main pulmonary artery segment is stable. Lungs/Pleural space: The left pleural effusion has been significantly reduced in size with interval for stent is. Small effusion still remains. The moderate effusion on the right is stable. No pneumoth orax. Bony thorax: No acute osseous abnormality. Life support devices: None. IMPRESSION: Improved left pleural effusion residual still remaining. No pneumothorax following thorac entesis. This document is electronically signed by Naima Martin MD., August 17 2018 06:46:30 PM ET
[2018-08-17] MEDS: DESYREL PO SCH (21:59)
[2018-08-18] MEDS: DICLOFENAC 1% TP SCH ×3 (00:49→16:16)
[2018-08-18] MEDS: MORPHINE IV PRN ×3 (03:53→15:07)
[2018-08-18] MEDS: NEURONTIN PO SCH ×2 (06:55→13:50)
--- NOTE | 2018-08-18 07:41 | Ultrasound Report ---
ULTRASOUND THORACENTESIS History: Left pleural effusion. Description of procedure: Informed consent was obtained. Sterile technique was utilized. 1% lidocaine for skin anesthesia. Using ultrasound guidance, a 5 [place] centesis needle was advanced into the left pleural space. There was spontaneous return of blood-tinged fluid. 900 cc of fluid was aspirated and discarded. No complications. Impression: Successful ultrasound-guided left thoracentesis.
[2018-08-18] MEDS: HumaLOG SUB-Q SCH ×2 (08:46→13:40)
--- NOTE | 2018-08-18 10:09 | Procedure Note ---
Date of procedure: 08/18/18 Pre-op diagnosis: right pleural effusion Post-op diagnosis: same Procedure: US thoracentesis, right Findings: moderate right pleural fluid Anesthesia: local Surgeon: AR ALVAREZ Estimated blood loss: none Pathology: none Specimen disposition: discarded Condition: stable Disposition: floor
--- NOTE | 2018-08-18 10:14 | Ultrasound Report ---
ULTRASOUND THORACENTESIS History: Pleural effusion Description of procedure: Informed consent was obtained. Sterile technique was utilized. 1% lidocaine for skin anesthesia. Using ultrasound guidance, a 5 Maltese centesis needle was advanced into the right pleural space. There was spontaneous return of blood-tinged fluid. 750 cc of fluid was aspirated and discarded. No complications. Impression: Successful ultrasound-guided right thoracentesis.
--- NOTE | 2018-08-18 10:19 | Progress Note ---
Assessment and Plan Volume overload Chronic systolic heart failure Pericardial effusion s/p pericardiocentesis 06/2018 limited echo this admission reports a small pericardial effusion, large left pleural effusion, EF improved to 40-50%. Bilateral pleural effusions s/p thoracentesis ESRD on dialysis Hypertension Non-ischemic cardiomyopathy [facility] 07/2017: no significant coronary artery disease but a decreased left ventricular ejection fraction 15-20%. Chronic Ascites with intermittent paracentesis. Chronic anemia Chronic hypoxic respiratory failure on home oxygen Non-compliance with outpatient cardiac follow-ups Chronically elevated troponin in the setting of ESRD Recommendations: Dialysis for fluid management. Continue medical therapy for nonischemic cardiomyopathy and chronic systolic heart failure. Otherwise, conservative cardiac management. Subjective Date of service: 08/18/18 Principal diagnosis: anasarca Interval history: No interval changes. For possible thoracentesis today. No cardiac events reported overnight. Objective Vital Signs Temp Pulse Resp BP Pulse Ox 08/18/18 08:02 87 16 114/57 100 08/18/18 03:50 98.0 F 84 18 125/69 96 08/17/18 23:20 98.3 F 82 18 124/67 98 08/17/18 21:46 83 08/17/18 19:45 98.0 F 82 18 126/61 94 08/17/18 16:32 91 H 156/85 08/17/18 16:22 91 H 156/85 96 08/17/18 14:30 98.3 F 78 18 152/79 08/17/18 14:00 81 149/72 08/17/18 13:45 80 155/76 08/17/18 13:30 73 153/70 08/17/18 13:15 78 149/77 08/17/18 13:00 82 128/62 08/17/18 12:45 77 134/71 08/17/18 12:30 77 123/63 08/17/18 12:15 75 125/64 08/17/18 12:00 78 136/61 08/17/18 11:45 78 138/71 08/17/18 11:30 76 155/83 08/17/18 11:15 76 147/82 08/17/18 11:00 75 142/76 08/17/18 10:45 78 120/61 08/17/18 10:30 98.1 F 84 18 131/67 - Physical Examination General: No Apparent Distress HEENT: Positive: PERRL Neck: Positive: trachea midline Cardiac: Positive: Reg Rate and Rhythm Lungs: Positive: Decreased Breath Sounds Neuro: Positive: Grossly Intact Extremities: Absent: edema
[2018-08-18] MEDS: APRESOLINE PO SCH ×2 (10:50→13:50)
[2018-08-18] MEDS: PROTONIX PO SCH (10:52)
[2018-08-18] MEDS: HALFPRIN EC PO SCH (10:53)
[2018-08-18] MEDS: PROCARDIA XL PO SCH (10:53)
[2018-08-18] MEDS: Renal Caps PO SCH (10:53)
[2018-08-18] MEDS: COREG PO SCH (10:53)
[2018-08-18] MEDS: XANAX PO SCH (10:53)
[2018-08-18 10:54] VITALS: BP 128/67
[2018-08-18] MEDS: LOVENOX SUB-Q SCH (10:54)
[2018-08-18] MEDS: SODIUM CHLORIDE FLUSH SYRINGE 10 ML IV SCH (10:55)
--- NOTE | 2018-08-18 12:12 | XRay Report ---
AP CHEST: HISTORY: Short of breath, recent right thoracentesis Reason ultrasound guided right thoracentesis was performed. There is near-complete evacuation of the right pleural effusion. No pneumothorax. Severe cardiomegaly, mild pulmonary venous congestion and small left pleural effusion are unchanged. IMPRESSION: No evidence for pneumothorax.
--- NOTE | 2018-08-18 13:02 | Discharge Summary ---
Providers - Providers Date of Admission: 08/08/18 23:34 Date of discharge: 08/18/18 Attending physician: ARCADIO JOEL 08/08/18 21:36 Consult to Physician [CONS] Stat Comment: Consulting Provider: ROSSY BOYLE Physician Instructions: Reason For Exam: ESRD 08/09/18 00:09 Consult to Dietitian/Nutrition [CONS] Routine Physician Instructions: Reason For Exam: Reason for Consult: Diet education 08/09/18 03:44 Consult to Physician [CONS] Routine Comment: Consulting Provider: SUDARSHAN VIVAS Physician Instructions: Reason For Exam: ascites, abdominal distension and pain 08/09/18 05:01 Consult to Physician [CONS] Routine Comment: Consulting Provider: CARINA SCHROEDER Physician Instructions: Reason For Exam: pericardial effusion, ab CE Primary care physician: LICENSE ISSUER Hospitalization Condition: Fair Procedures: Left thoracentesis Right thoracentesis Paracentesis Hospital course: Patient is a 28-year-old male with hypertension, ESRD on dialysis, CHF, anemia. He presented to the ER with complaints of abdominal pain, nausea, vomiting, shortness of breath and generalized body ache. He stated he was unable to get out of bed to go to dialysis, he missed his dialysis treatment, and decided to come to the ER for evaluation. His laboratory values showed a BNP of 35,000, his BUN was 70, creatinine 9.0, potassium 5.5. Patient was admitted and started hemodialysis. He was found to have acute on chronic respiratory failure, CHF exacerbation. He also had bilateral pleural effusion and had thoracentesis done. patient was followed by Pulmonology, Cardiology and Nephrology. He improved slowly and was discharged home on 08/18/18. Acute on chronic respiratory failure Discharge on home Oxygen ESRD. Continue hemodialysis per nephrology. Hyperkalemia. Resolved. Anasarca. Medical noncompliance. Patient has been counseled. Anemia of ESRD. No transfusion was needed Acute on chronic heart failure with reduced ejection fraction. Patient with a history of nonischemic cardiomyopathy. Continue hemodialysis for negative fluid balance. Bilateral pleural effusions. Hemodialysis per nephrology. Repeat CXR 08/15 show bilateral effusions s/p bilateral thoracentesis left thoracentesis 08/17 and right thoracentesis 08/18 Recurrent ascites. Patient is status post paracentesis Pericardial effusion. Echocardiogram revealed small pericardial effusion. Elevated troponin. Patient with chronically elevated troponin in setting of ESRD. Patient discharged home on 08/18/18 Disposition: DC-01 TO HOME OR SELFCARE - Discharge Diagnoses (1) Acute and chronic respiratory failure with hypoxia Status: Acute (2) Anemia Status: Acute Qualifiers: Anemia type: due to chronic kidney disease Chronic kidney disease stage: on chronic dialysis Qualified Code(s): N18.6 - End stage renal disease; D63.1 - Anemia in chronic kidney disease; D63.1 - Anemia in chronic kidney disease; Z99.2 - Dependence on renal dialysis; Z99.2 - Dependence on renal dialysis; Z99.2 - Dependence on renal dialysis; Z99.2 - Dependence on renal dialysis (3) Cardiomegaly Status: Acute (4) Cardiomyopathy Status: Acute (5) Chronic liver disease Status: Acute (6) End-stage renal disease on hemodialysis Status: Acute (7) Hyperkalemia Status: Acute (8) Hypertensive urgency Status: Acute (9) Pleural effusion Status: Acute (10) Ascites Status: Chronic (11) Elevated troponin Status: Chronic (12) Malnutrition Status: Chronic Qualifiers: Malnutrition type: protein-calorie malnutrition (13) Volume overload Status: Chronic (14) Acute on chronic systolic (congestive) heart failure Status: Acute Core Measure Documentation - Palliative Care Palliative Care/ Comfort Measures: Not Applicable - Core Measures Any of the following diagnoses?: heart failure, none - Heart Failure Discharge Requirements DELFINO/ARB for LVSD if EF <40%: No Reason for no DELFINO/ARB: Renal impairment Beta deja at discharge: Yes Exam - Constitutional Vitals: Temp Pulse Resp BP Pulse Ox 98.0 F 78 16 128/67 100 08/18/18 03:50 08/18/18 10:53 08/18/18 08:02 08/18/18 10:53 08/18/18 08:02 Plan Activity: no restrictions Diet: low fat, low cholesterol, low salt, renal Additional Instructions: 1.Follow up with PCP in 1 week. 2.Follow up with [facility] in 1 week. 3.Continue routine hemodialysis as scheduled. 4.Follow up with Madelaine Snyder in 1-2 weeks. 5.Continue home Oxygen at 4l/min nc Follow up with: PRIMARY MD YVETTE [Primary Care Provider] - 7 Days
== END 2018-08-18 16:30 | disposition home or self-care (01) | DRG 291 ==
LOC: ED 20:09 → 4A 23:34
PROVIDERS: ADMIT Internal Medicine; ATTEND Internal Medicine
PROC: 5A1D70Z Performance of Urinary Filtration, Intermittent, Less than 6 Hours Per Day (ICD-10-PCS; principal; 2018-08-09)
PROC: 5A1D70Z Performance of Urinary Filtration, Intermittent, Less than 6 Hours Per Day (ICD-10-PCS; 2018-08-10)
PROC: 5A1D70Z Performance of Urinary Filtration, Intermittent, Less than 6 Hours Per Day (ICD-10-PCS; 2018-08-11)
PROC: 5A1D70Z Performance of Urinary Filtration, Intermittent, Less than 6 Hours Per Day (ICD-10-PCS; 2018-08-12)
PROC: 5A1D70Z Performance of Urinary Filtration, Intermittent, Less than 6 Hours Per Day (ICD-10-PCS; 2018-08-15)
PROC: 5A1D70Z Performance of Urinary Filtration, Intermittent, Less than 6 Hours Per Day (ICD-10-PCS; 2018-08-17)
PROC: 0W9B3ZZ Drainage of Left Pleural Cavity, Percutaneous Approach (ICD-10-PCS; 2018-08-17)
PROC: 0W993ZZ Drainage of Right Pleural Cavity, Percutaneous Approach (ICD-10-PCS; 2018-08-18)
DX: I13.2 Hypertensive heart and chronic kidney disease with heart failure and with stage 5 chronic kidney disease, or end stage renal disease (principal); I50.23 Acute on chronic systolic (congestive) heart failure; N18.6 End stage renal disease; J96.20 Acute and chronic respiratory failure, unspecified whether with hypoxia or hypercapnia; R18.8 Other ascites; I31.3 Pericardial effusion (noninflammatory); J91.8 Pleural effusion in other conditions classified elsewhere; I42.9 Cardiomyopathy, unspecified; I42.0 Dilated cardiomyopathy; E87.5 Hyperkalemia; K21.9 Gastro-esophageal reflux disease without esophagitis; D63.1 Anemia in chronic kidney disease; M19.90 Unspecified osteoarthritis, unspecified site; Z99.2 Dependence on renal dialysis; Z87.891 Personal history of nicotine dependence; Z79.82 Long term (current) use of aspirin
CPT/HCPCS: 32555; 36415; 71045; 71046; 74176; 76705; 80048; 80053; 80061; 82550; 82553; 82962; 83880; 84484; 85025; 85027; 85610; 93005; 93010; 93308; 93321; 93325; 94760; G0378; A9270-GY; J0360; J0885; J1650; J2270; J2405; J7030